=== PATIENT | male | born 1955 | race Caucasian/White ===

== ENCOUNTER 2018-01-03 04:38 | Emergency (ER) | payer MEDICAID, SELFPAY ==
[2018-01-03] VITALS (37 sets, daily range): BP systolic 98–151; BP diastolic 70–88; PULSE 69–98; RESP 14–34; TEMP 37.1; O2SAT 93–97
--- NOTE | 2018-01-03 05:05 | ED.GENADUL ---
Disposition Clinical Impression: Abdominal pain, Rectal bleeding, Colitis Instructions: Rectal Bleeding (ED), Abdominal Pain (ED), Colitis (ED) Additional Instructions: Please follow-up with your primary care physician. Return to the emergency department immediately for any worsening or new concerning symptoms. Referrals: Sasha Leach MD [ [facility] STAFF PHYSICIAN] - Deborah Chow MD [Primary Care Provider] - Medical Decision Making - Lab Data Laboratory Tests 01/03/18 01/03/18 01/03/18 04:55 04:55 05:00 WBC 5.41 RBC 4.73 Hgb 15.8 Hct 46.3 MCV 97.9 H MCH 33.4 H MCHC 34.1 RDW 11.4 L Plt Count 201 MPV 9.6 Immature Gran % 0.6 Neutrophils % 64.4 Lymphocytes % 19.8 Monocytes % 13.7 Eosinophils % 0.9 Basophils % 0.6 Absolute Neutrophils 3.49 Absolute Lymphocytes 1.07 L Absolute Monocytes 0.74 H Absolute Eosinophils 0.05 Absolute Basophils 0.03 Sodium 140 Potassium 3.9 Chloride 102 Carbon Dioxide 28.5 Anion Gap 9.5 BUN 9 Creatinine 0.97 Estimated GFR/1.73 m2 >= 60.00 Glucose 94 Calcium 8.3 L Total Bilirubin 0.9 AST 100 H ALT 77 Alkaline Phosphatase 117 H Total Protein 7.6 Albumin 3.7 Lipase 314 Patient ABO/Rh A Positive Antibody Screen Negative - Medical Decision Making 510 --62-year-old male history of lung cancer, tubular adenoma colon, presents with dark bloody stool this morning and left-sided abdominal pain since last night. 2 IVs established. Will check type and screen. No active bleeding at this time. Concern for diverticulitis. Plan to obtain CT abdomen pelvis to assess for acute surgical pathology. 718 --CT of the abdomen pelvis interpreted by radiology: Thickened, possibly trabeculated bladder wall, not definitely changed from a 10/16/2016 study, considering difference in bladder distention. Mild thickening of the bladder wall, without stranding in the surrounding fat. This has slightly increased from the prior study. Mild colitis is not excluded. Labs reviewed and nondiagnostic. No anemia. Patient reassessed and is remained stable without recurrent bleeding. 800 -- Care signed out to Dr. Resendiz with plan to follow-up on repeat 4hr Hb and reassess patient for disposition. History of Present Illness - General Chief complaint: Abd Prob Stated complaint: CALEX Time Seen by Provider: 01/03/18 04:48 Source: patient, RN notes reviewed Mode of arrival: ambulatory Limitations: no limitations - History of Present Illness Initial comments: 62-year-old male with history of lung cancer, COPD, tubular adenoma of the colon, anxiety, presents with chief complaint of bloody stool. Patient notes he developed left-sided abdominal pain that started last night around midnight. Pain persisted through the night. He had a hard bowel movement this morning with associated dark bloody stool. Bloody stool was severe with no modifiers. Patient describes the stools as coffee ground appearance. Patient continues to have abdominal pain and localizes it to left lower quadrant. - Related Data Budesonide/Formoterol Fumarate [Symbicort 160/4.5 Mcg Inhaler] 10.2 gm IH BID #3 inhaler 06/20/17 Tiotropium [Spiriva Handihaler] 1 cap IH DAILY 09/29/17 Albuterol [Proair Hfa] 2 puff IH Q4H PRN PRN #1 inh 10/02/17 Albuterol Sulfate 2.5 mg IH Q4H PRN PRN 30 Days ml 10/15/17 Inhaler, Assist Devices [Pocket Chamber] 1 each MC DIRECTED kit 10/15/17 Ranitidine HCl 150 mg PO BID #180 tab-cap 10/31/17 Fluoxetine HCl 30 mg PO DAILY #90 cap 11/07/17 Allergies Allergy/AdvReac Type Severity Reaction Status Date / Time No Known Allergies Allergy Unverified 01/03/18 04:50 Review of Systems Constitutional: denies: fever Respiratory: denies: cough Gastrointestinal: as per HPI, abdominal pain Comment: All other systems reviewed and negative Past Medical History - Past Medical History Medical history: cancer (lung CA), COPD, GERD Hx of ETOH abuse, tubular adenoma of the colon Surgical history: other (Left arm surgery s/p chainsaw accident) - Social History Smoking status: former smoker Alcohol use: heavy Drug use: none General Exam - General Limitations: no limitations General appearance: alert, in no apparent distress - Eye Eye exam: Absent: scleral icterus, conjunctival injection - ENT ENT exam: Present: mucous membranes moist - Respiratory Respiratory exam: Present: normal lung sounds bilaterally - Cardiovascular Cardiovascular Exam: Present: regular rate, normal rhythm, normal heart sounds - GI/Abdominal GI/Abdominal exam: Present: soft, tenderness (Left-sided abdomen worse in the left lower quadrant), normal bowel sounds. Absent: distended, guarding, rebound, rigid, pulsatile mass - Rectal Rectal exam: Present: normal rectal tone, heme (-) stool (Minimal stool obtained). Absent: black stool, bloody stool, hemorrhoids - Neurological Exam Neurological exam: Present: alert. Absent: altered - Psychiatric Psychiatric exam: Present: normal affect - Skin Skin exam: Present: warm, dry, intact. Absent: pallor Course Vital Signs - 24 hr 01/03/18 01/03/18 01/03/18 04:43 04:45 04:50 Temperature 37.1 C Pulse 88 Respiratory 16 Rate Blood Pressure 151/88 Pulse Oximetry 95 96 93 L
[2018-01-03] MEDS: Lactated Ringers 1,000 ML 150 ML IV (05:08)
[2018-01-03] MEDS: Normal Saline Flush 10 ML SYR IVP (05:08)
--- NOTE | 2018-01-03 05:08 | ED.GENADUL_ITS ---
Disposition Clinical Impression: Abdominal pain, Rectal bleeding, Colitis Instructions: Rectal Bleeding (ED), Abdominal Pain (ED), Colitis (ED) Additional Instructions: Please follow-up with your primary care physician. Return to the emergency department immediately for any worsening or new concerning symptoms. Referrals: Sasha Leach MD [ [facility] STAFF PHYSICIAN] - Deborah Chow MD [Primary Care Provider] - Medical Decision Making - Lab Data Laboratory Tests 01/03/18 01/03/18 01/03/18 04:55 04:55 05:00 WBC 5.41 RBC 4.73 Hgb 15.8 Hct 46.3 MCV 97.9 H MCH 33.4 H MCHC 34.1 RDW 11.4 L Plt Count 201 MPV 9.6 Immature Gran % 0.6 Neutrophils % 64.4 Lymphocytes % 19.8 Monocytes % 13.7 Eosinophils % 0.9 Basophils % 0.6 Absolute Neutrophils 3.49 Absolute Lymphocytes 1.07 L Absolute Monocytes 0.74 H Absolute Eosinophils 0.05 Absolute Basophils 0.03 Sodium 140 Potassium 3.9 Chloride 102 Carbon Dioxide 28.5 Anion Gap 9.5 BUN 9 Creatinine 0.97 Estimated GFR/1.73 m2 >= 60.00 Glucose 94 Calcium 8.3 L Total Bilirubin 0.9 AST 100 H ALT 77 Alkaline Phosphatase 117 H Total Protein 7.6 Albumin 3.7 Lipase 314 Patient ABO/Rh A Positive Antibody Screen Negative - Medical Decision Making 510 --62-year-old male history of lung cancer, tubular adenoma colon, presents with dark bloody stool this morning and left-sided abdominal pain since last night. 2 IVs established. Will check type and screen. No active bleeding at this time. Concern for diverticulitis. Plan to obtain CT abdomen pelvis to assess for acute surgical pathology. 718 --CT of the abdomen pelvis interpreted by radiology: Thickened, possibly trabeculated bladder wall, not definitely changed from a 10/16/2016 study, considering difference in bladder distention. Mild thickening of the bladder wall, without stranding in the surrounding fat. This has slightly increased from the prior study. Mild colitis is not excluded. Labs reviewed and nondiagnostic. No anemia. Patient reassessed and is remained stable without recurrent bleeding. 800 -- Care signed out to Dr. Resendiz with plan to follow-up on repeat 4hr Hb and reassess patient for disposition. History of Present Illness - General Chief complaint: Abd Prob Stated complaint: CALEX Time Seen by Provider: 01/03/18 04:48 Source: patient, RN notes reviewed Mode of arrival: ambulatory Limitations: no limitations - History of Present Illness Initial comments: 62-year-old male with history of lung cancer, COPD, tubular adenoma of the colon , anxiety, presents with chief complaint of bloody stool. Patient notes he developed left-sided abdominal pain that started last night around midnight. Pain persisted through the night. He had a hard bowel movement this morning with associated dark bloody stool. Bloody stool was severe with no modifiers. Patient describes the stools as coffee ground appearance. Patient continues to have abdominal pain and localizes it to left lower quadrant. - Related Data Budesonide/Formoterol Fumarate [Symbicort 160/4.5 Mcg Inhaler] 10.2 gm IH BID # 3 inhaler 06/20/17 Tiotropium [Spiriva Handihaler] 1 cap IH DAILY 09/29/17 Albuterol [Proair Hfa] 2 puff IH Q4H PRN PRN #1 inh 10/02/17 Albuterol Sulfate 2.5 mg IH Q4H PRN PRN 30 Days ml 10/15/17 Inhaler, Assist Devices [Pocket Chamber] 1 each MC DIRECTED kit 10/15/17 Ranitidine HCl 150 mg PO BID #180 tab-cap 10/31/17 Fluoxetine HCl 30 mg PO DAILY #90 cap 11/07/17 Allergies Allergy/AdvReac Type Severity Reaction Status Date / Time No Known Allergies Allergy Unverified 01/03/18 04:50 Review of Systems Constitutional: denies: fever Respiratory: denies: cough Gastrointestinal: as per HPI, abdominal pain Comment: All other systems reviewed and negative Past Medical History - Past Medical History Medical history: cancer (lung CA), COPD, GERD Hx of ETOH abuse, tubular adenoma of the colon Surgical history: other (Left arm surgery s/p chainsaw accident) - Social History Smoking status: former smoker Alcohol use: heavy Drug use: none General Exam - General Limitations: no limitations General appearance: alert, in no apparent distress - Eye Eye exam: Absent: scleral icterus, conjunctival injection - ENT ENT exam: Present: mucous membranes moist - Respiratory Respiratory exam: Present: normal lung sounds bilaterally - Cardiovascular Cardiovascular Exam: Present: regular rate, normal rhythm, normal heart sounds - GI/Abdominal GI/Abdominal exam: Present: soft, tenderness (Left-sided abdomen worse in the left lower quadrant), normal bowel sounds. Absent: distended, guarding, rebound , rigid, pulsatile mass - Rectal Rectal exam: Present: normal rectal tone, heme (-) stool (Minimal stool obtained ). Absent: black stool, bloody stool, hemorrhoids - Neurological Exam Neurological exam: Present: alert. Absent: altered - Psychiatric Psychiatric exam: Present: normal affect - Skin Skin exam: Present: warm, dry, intact. Absent: pallor Course Vital Signs - 24 hr 01/03/18 01/03/18 01/03/18 04:43 04:45 04:50 Temperature 37.1 C Pulse 88 Respiratory 16 Rate Blood Pressure 151/88 Pulse Oximetry 95 96 93 L
[2018-01-03 05:13] LABS: Abs Immature Grans 0.03 k/cumm (0.0-0.09); Absolute Basophil Count 0.03 k/cumm (0.0-0.2); Absolute Eosinophil Count 0.05 k/cumm (0.0-0.7); Absolute Lymphocyte Count 1.07 k/cumm (1.2-3.4); Absolute Monocyte Count 0.74 k/cumm (0.11-0.7); Absolute Neutrophil Count 3.49 k/cumm (1.2-6.7); Basophils % 0.6; Eosinophils % 0.9; HCT 46.3 % (40.0-50.0); HGB 15.8 g/dL (13.5-17.5); Immature Grans % 0.6; Lymphocytes % 19.8; Mean Corp. HGB Concentration 34.1 g/dL (32.0-36.0); Mean Corpuscular Hemoglobin 33.4 pg (27.0-33.0); Mean Corpuscular Volume 97.9 fL (80-95); Mean Platelet Volume 9.6 fL (8.0-11.0); Monocytes % 13.7; Neutrophils % 64.4; Platelet Count 201 x1000/uL (130-400); RBC 4.73 m/cumm (4.50-6.00); RBC Distribution Width 11.4 % (11.8-14.1); White Blood Cell Count 5.41 k/cumm (4.4-10.8)
[2018-01-03 05:28] LABS: ALT 77 U/L (12-78); AST 100 U/L (15-37); Albumin 3.7 g/dL (3.4-5.0); Alkaline Phosphatase 117 U/L (46-116); Anion Gap 9.5 mmol/L (3-11); BUN 9 mg/dL (7-18); Bilirubin, Total 0.9 mg/dL (0.2-1.0); CO2 28.5 mmol/L (21.0-32.0); CREATININE 0.97 mg/dL (0.70-1.30); Calcium 8.3 mg/dL (8.5-10.1); Chloride 102 mmol/L (98-107); Glucose 94 mg/dL (70-100); Lipase 314 U/L (73-393); Potassium 3.9 mmol/L (3.5-5.1); Sodium 140 mmol/L (136-145); Total Protein 7.6 g/dL (6.4-8.2)
--- NOTE | 2018-01-03 05:55 | DI.RPTCT_ITS ---
SYMPTOM/DIAGNOSIS: LLQ ABD PAIN, BRBPR CT ABDOMEN AND PELVIS: CT abdomen and pelvis was performed following the uneventful administration of intravenous contrast material. Comparison 10/16/16 No acute findings are seen in the lung bases. There is fatty infiltration of the liver with focal fatty sparing adjacent to the falciform ligament. The gallbladder is negative. No biliary ductal dilatation is seen. The pancreas, spleen and adrenal glands are unremarkable. The kidneys show no evidence of a solid mass or obstruction. There is mild diffuse thickening of the wall of the urinary bladder. This may be due to under distension. Chronic bladder trabeculation cannot be excluded. This is unchanged compared to the prior examination. No inflammatory stranding is seen around the urinary bladder. The abdominal aorta is of normal caliber. No significant abdominal or pelvic adenopathy, ascites or pneumoperitoneum is seen. There is mild thickening seen in the rectal wall. This may represent proctitis. The remainder of the bowel is grossly unremarkable. There is a normal appendix present. Degenerative changes are seen in the spine. IMPRESSION: Mild rectal wall thickening. Proctitis cannot be excluded.
[2018-01-03] MEDS: Omnipaque 350 MG/ML 100 ML BTL IJ (05:56)
--- NOTE | 2018-01-03 06:34 | DI.VRAD_ITS ---
EXAM: CT Abdomen and Pelvis With Intravenous Contrast CLINICAL HISTORY: 62 years old, male; Pain and signs and symptoms; Other: Blod in stool; Abdominal pain; Localized; Left lower quadrant (llq); Patient HX: NIA tam ca, blood in stool this am and llq pain TECHNIQUE: Axial computed tomography images of the abdomen and pelvis with intravenous contrast. All CT scans at this facility use at least one of these dose optimization techniques: automated exposure control; mA and/or kV adjustment per patient size (includes targeted exams where dose is matched to clinical indication); or iterative reconstruction. Coronal and sagittal reformatted images were created and reviewed. CONTRAST: 82 mL of Omnipaque 350 administered intravenously. COMPARISON: CT - ABD PELVIS WITH CONTRAST 2016-10-16 19:15 FINDINGS: Lung bases: Unremarkable. No mass. No consolidation. ABDOMEN: Liver: Severe hepatic steatosis. 1 cm hypodense area adjacent to the falciform ligament, likely focal fatty infiltration. Gallbladder and bile ducts: Unremarkable. No calcified stones. No ductal dilation. Pancreas: Unremarkable. No mass. No ductal dilation. Spleen: Calcified granuloma, spleen. Adrenals: Unremarkable. No mass. Kidneys and ureters: Few benign subcentimeter cysts, right kidney. No hydronephrosis. Stomach and bowel: Rectal wall appears mildly thickened, without stranding in the surrounding perirectal fat. Wall of the ascending colon appears mildly thickened, though this is likely due to collapsed colon. No obstruction. PELVIS: Appendix: Normal appendix. Bladder: Bladder wall is thickened, and possibly trabeculated. Reproductive: Moderate prostatic enlargement. ABDOMEN and PELVIS: Intraperitoneal space: Unremarkable. No free air. No significant fluid collection. Bones/joints: Moderate degenerative changes, lower lumbar spine. Mild lumbar scoliosis. Soft tissues: Small fat containing left inguinal hernia. Vasculature: Multiple phleboliths noted in the pelvis. No abdominal aortic aneurysm. Lymph nodes: Unremarkable. No enlarged lymph nodes. IMPRESSION: Thickened, possibly trabeculated bladder wall, not definitely changed from a 10/16/16 study, considering difference in bladder distention. Mild thickening of the bladder wall, without stranding in the surrounding fat. This has slightly increased from the prior study. Mild colitis is not excluded. No mass or adenopathy. Dictated and Authenticated by: Glenn Brown MD. Ordering:CRISTOPHER ESPINO MD
--- NOTE | 2018-01-03 08:11 | ED.FU_ITS ---
Disposition Clinical Impression: Abdominal pain, Rectal bleeding, Colitis Disposition: HOME Condition: Stable Instructions: Rectal Bleeding (ED), Abdominal Pain (ED), Colitis (ED) Additional Instructions: Please follow-up with your primary care physician. Return to the emergency department immediately for any worsening or new concerning symptoms. Prescriptions: Docusate Sodium [Colace] 100 mg PO DAILY #10 cap Referrals: Sasha Leach MD [ [facility] STAFF PHYSICIAN] - Deborah Chow MD [Primary Care Provider] - Medical Decision Making - Lab Data Laboratory Tests 01/03/18 01/03/18 01/03/18 04:55 04:55 05:00 WBC 5.41 RBC 4.73 Hgb 15.8 Hct 46.3 MCV 97.9 H MCH 33.4 H MCHC 34.1 RDW 11.4 L Plt Count 201 MPV 9.6 Immature Gran % 0.6 Neutrophils % 64.4 Lymphocytes % 19.8 Monocytes % 13.7 Eosinophils % 0.9 Basophils % 0.6 Absolute Neutrophils 3.49 Absolute Lymphocytes 1.07 L Absolute Monocytes 0.74 H Absolute Eosinophils 0.05 Absolute Basophils 0.03 Sodium 140 Potassium 3.9 Chloride 102 Carbon Dioxide 28.5 Anion Gap 9.5 BUN 9 Creatinine 0.97 Estimated GFR/1.73 m2 >= 60.00 Glucose 94 Calcium 8.3 L Total Bilirubin 0.9 AST 100 H ALT 77 Alkaline Phosphatase 117 H Total Protein 7.6 Albumin 3.7 Lipase 314 Patient ABO/Rh A Positive Antibody Screen Negative - Medical Decision Making Please see Dr. Clay Lizarraga's note for initial presentation, exam and plan. 62-year-old male who presented with left upper quadrant pain, hard stool with bright red blood mixed with dark stool this morning. Denies taking iron. He also admits to occasional bright red blood when wiping with bowel movements for the past few weeks. Patient had lab work and CT abdomen and pelvis which noted stable hemoglobin and colitis on CT but no other acute findings. Hemoccult 2 negative for blood. Patient has been hemodynamically stable since arrival to the ED. Plan upon endorsement was to recheck a hemoglobin to make sure it is been stable. 0920: Repeat hemoglobin stable. Vital stable. Patient denies any abdominal pain. Patient is drinking coffee and states he feels good to go home. Patient has denied any chest pain, shortness of breath, dizziness. Patient had admitted to hard stools recently. He denies diarrhea, fever, recent travel or recent antibiotics. Will send home with a prescription for Colace. It was discussed with patient that as he has had intermittent bleeding with wiping for the past few weeks as well as blood mixed with stool, he could possibly have hemorrhoids. Patient was instructed to follow-up with his primary care doctor for reevaluation and return here if worse. Care Signed Out By:: Dr. Lizarraga - Vital Signs Recent Vitals - 8H: Vital Signs - 8 hr 01/03/18 01/03/18 01/03/18 04:43 04:45 04:50 Temperature 98.8 F Pulse 88 Respiratory 16 Rate Blood Pressure 151/88 Pulse Oximetry 95 96 93 L 01/03/18 01/03/18 01/03/18 05:00 05:10 05:15 Temperature Pulse 81 Respiratory Rate Blood Pressure 139/76 Pulse Oximetry 95 95 94 L 01/03/18 01/03/18 01/03/18 05:20 05:30 05:31 Temperature Pulse 77 Respiratory Rate Blood Pressure 131/75 Pulse Oximetry 95 96 96 01/03/18 01/03/18 01/03/18 06:02 06:04 06:10 Temperature Pulse 81 Respiratory Rate Blood Pressure 134/78 Pulse Oximetry 96 95 97 01/03/18 01/03/18 01/03/18 06:20 06:30 06:31 Temperature Pulse 74 Respiratory Rate Blood Pressure 126/77 Pulse Oximetry 95 95 01/03/18 01/03/18 06:40 06:50 Temperature Pulse Respiratory Rate Blood Pressure Pulse Oximetry 96 96 - Continuation of Care Continuation of Care Plan: Case endorsed to f/u on second hemoglobin and if pt continues to be hemodynamically stable and normal repeat hemoglobin, ok to dc home.
[2018-01-03 09:06] LABS: HCT 41.4 % (40.0-50.0); Mean Corp. HGB Concentration 33.8 g/dL (32.0-36.0); Mean Corpuscular Hemoglobin 33.5 pg (27.0-33.0); Mean Platelet Volume 9.4 fL (8.0-11.0); Platelet Count 206 x1000/uL (130-400); RBC 4.18 m/cumm (4.50-6.00); RBC Distribution Width 11.2 % (11.8-14.1)
== END 2018-01-03 09:56 | disposition home or self-care (01) ==
PROVIDERS: Emergency Provider Student in an Organized Health Care Education/Training Program; PCP Internal Medicine
DX: K62.5 Hemorrhage of anus and rectum (principal); K52.9 Noninfective gastroenteritis and colitis, unspecified; R10.32 Left lower quadrant pain; J44.9 Chronic obstructive pulmonary disease, unspecified
CPT/HCPCS: 36415; 80053; 83690; 85027; 86850; 86900; 86901; 96360; 96361; 99285; 74177; 85025; 99284; J3490

== ENCOUNTER 2018-02-28 13:21 | Outpatient (CLI) | payer MEDICAID, SELFPAY ==
--- NOTE | 2018-02-28 11:56 | DI.RAD_ITS ---
SYMPTOM/DIAGNOSIS: LUNG CANCER, FEVER, R50.9 PA AND LATERAL CHEST: When compared with prior films again noted is the minimal strandiness in the region of the right upper lobe, unchanged. The lungs are otherwise clear. There is no pleural effusion. The cardiovascular structures appear intact. SUMMARY: No evidence of acute cardiopulmonary disease. No interval change when compared with prior images.
== END 2018-02-28 13:41 ==
PROVIDERS: PCP Internal Medicine; Visit Provider Internal Medicine
DX: C34.91 Malignant neoplasm of unspecified part of right bronchus or lung (principal); R50.9 Fever, unspecified
CPT/HCPCS: 71046

== ENCOUNTER 2018-03-19 09:39 | Emergency (ER) | payer MEDICAID, SELFPAY ==
[2018-03-19 09:54] VITALS: BP 127/87; PULSE 81; RESP 16; TEMP 37; O2SAT 95
[2018-03-19 10:25] VITALS: RESP 16
--- NOTE | 2018-03-19 10:29 | DI.RAD_ITS ---
SYMPTOM/DIAGNOSIS: COUGH, CONGESTION PA AND LATERAL CHEST: The heart is not enlarged. The lungs are clear. No pleural effusion is seen. The patient reportedly has a history of lung carcinoma. CONCLUSION: No evidence of acute disease. No change from 02/28/18.
--- NOTE | 2018-03-19 10:30 | W.ED.GENAD ---
Discharge Plan Disposition Patient Disposition: HOME Condition: Improving Discharge Details Chief Complaint: GenMedical Clinical Impression: Acute respiratory infection Primary Care Provider: Deborah Chow ED Provider: Ean Lyons Home Meds and New Rx's Prescriptions: New ondansetron HCl [Zofran] 4 mg tablet 4 mg PO QID PRN (Reason: nausea and vomiting) Qty: 10 RF: 0 guaifenesin [Mucinex] 600 mg tablet extended release 12hr 600 mg PO Q12H PRNQty: 10 RF: 0 benzonatate [Tessalon Perles] 100 mg capsule 100 mg PO TID PRN (Reason: cough) Qty: 14 RF: 0 Continue doxycycline hyclate 100 mg capsule 100 mg PO BID Qty: 14 RF: 0 diazepam 2 mg tablet 2 mg PO BID PRN (Reason: alcohol withdrawal) Qty: 90 RF: 3 budesonide-formoterol [Symbicort] 10.2 GM HFA aerosol inhaler 10.2 gm Inhalation BID Qty: 3 RF: 3 ranitidine HCl 150 MG tablet 150 mg PO BID Qty: 180 RF: 3 fluoxetine 10 MG capsule 30 mg PO DAILY Qty: 90 RF: 3 docusate sodium [Colace] 100 MG capsule 100 mg PO DAILY 60 Days Qty: 60 RF: 2 cetirizine 10 mg capsule 10 mg PO DAILY Qty: 10 RF: 0 thiamine HCl (vitamin B1) 100 mg tablet 100 mg PO DAILY Qty: 90 RF: 3 tiotropium bromide [Spiriva with HandiHaler] 30 CAP/INH capsule, w/inhalation device 1 cap Inhalation DAILY RF: 0 albuterol sulfate [ProAir HFA] 200 PUFF/INH HFA aerosol inhaler 2 puff Inhalation Q4H PRN PRN (Reason: Shortness Of Breath) Qty: 1 RF: 0 inhalational spacing device [OptiChamber Advantage] 1 EACH spacer 1 ea Miscellaneous DIRECTED RF: 0 albuterol sulfate 2.5 MG/3 ML solution for nebulization 2.5 mg Inhalation Q4H PRN PRN (Reason: Shortness Of Breath) 30 Days RF: 0 Discharge Instructions Instructions: Viral Syndrome (ED) Additional Instructions: We will ask our care management team to make you a follow-up appointment with Dr. Chow. Return if you develop shortness of breath, worsening cough or fever, or any other acute concerns. May use the enclosed prescriptions as needed for cough and nausea. Home to rest today. Small, frequent sips of fluids to maintain hydration. Tylenol if needed for aches, pains, fever Medical Decision Making 62-year-old male presents with cough, congestion, generalized illness over days time. He is afebrile and oxygenating normally with vital signs that are within normal limits. Referred for chest x-ray to exclude underlying pneumonia. There is no evidence of active underlying illness. I do feel he has bronchitis, likely viral. Will treat with antitussive as well as Mucinex. He did have some complaint of nausea and therefore offered Zofran as well. He stable for follow-up. We will ask our care management to arrange outpatient follow-up with Dr. Geraldo CONTRERAS General Mode of arrival: ambulatory. Date/Time Provider Initiated Documentation: 03/19/18 10:21. Limitations to Documentation: no limitations. Information obtained by: patient. History of Present Illness 62 year old M presents to the emergency department with the chief complaint of Cough, described as moderate, Quality is described as dull, and is localized to the chest. Patient started experiencing this day(s) and it has been constant. No relieving factors improve symptom(s), No exacerbating factors reported . HPI Narrative: 62-year-old male with history of COPD presents with cough, congestion, subjective fever chills over 2-3 days time. He has not had chest pain or significant shortness of breath. No known sick contacts. He did tolerate liquids and solids by mouth. Related Data Home Medications Medication Instructions Recorded Confirmed budesonide-formoterol [Symbicort] 10.2 gm INHALATION BID #3 inhaler 06/20/17 03/19/18 tiotropium bromide [Spiriva with 1 cap INHALATION DAILY 09/29/17 03/19/18 HandiHaler] albuterol sulfate [ProAir HFA] 2 puff INHALATION Q4H PRN PRN #1 10/02/17 03/19/18 inh albuterol sulfate 2.5 mg INHALATION Q4H PRN PRN 30 10/15/17 03/19/18 Days ml inhalational spacing device kit 10/15/17 03/07/18 [OptiChamber Advantage] ranitidine HCl 150 mg PO BID #180 tab-cap 10/31/17 03/19/18 fluoxetine 30 mg PO DAILY #90 cap 11/07/17 03/19/18 docusate sodium [Colace] 100 mg PO DAILY 60 Days #60 cap 01/09/18 03/19/18 diazepam 2 mg tablet 2 mg PO BID PRN #90 tab 02/14/18 03/19/18 doxycycline hyclate 100 mg capsule 100 mg PO BID #14 cap 02/28/18 03/19/18 cetirizine 10 mg capsule 10 mg PO DAILY #10 cap 03/01/18 03/19/18 thiamine HCl (vitamin B1) 100 mg 100 mg PO DAILY #90 tab 03/06/18 03/19/18 tablet benzonatate [Tessalon Perles] 100 mg PO TID PRN #14 cap 03/19/18 guaifenesin [Mucinex] 600 mg PO Q12H PRN #10 tab 03/19/18 ondansetron HCl [Zofran] 4 mg PO QID PRN #10 tab 03/19/18 Previous Rx's Medication Instructions Recorded budesonide-formoterol [Symbicort] 10.2 gm INHALATION BID #3 inhaler 06/20/17 albuterol sulfate [ProAir HFA] 2 puff INHALATION Q4H PRN PRN #1 10/02/17 inh albuterol sulfate 2.5 mg INHALATION Q4H PRN PRN 30 10/15/17 Days ml inhalational spacing device kit 10/15/17 [OptiChamber Advantage] ranitidine HCl 150 mg PO BID #180 tab-cap 10/31/17 fluoxetine 30 mg PO DAILY #90 cap 11/07/17 docusate sodium [Colace] 100 mg PO DAILY 60 Days #60 cap 01/09/18 diazepam 2 mg tablet 2 mg PO BID PRN #90 tab 02/14/18 doxycycline hyclate 100 mg capsule 100 mg PO BID #14 cap 02/28/18 cetirizine 10 mg capsule 10 mg PO DAILY #10 cap 03/01/18 thiamine HCl (vitamin B1) 100 mg 100 mg PO DAILY #90 tab 03/06/18 tablet benzonatate [Tessalon Perles] 100 mg PO TID PRN #14 cap 03/19/18 guaifenesin [Mucinex] 600 mg PO Q12H PRN #10 tab 03/19/18 ondansetron HCl [Zofran] 4 mg PO QID PRN #10 tab 03/19/18 Allergies Allergy/AdvReac Type Severity Reaction Status Date / Time No Known Allergies Allergy Verified 03/19/18 09:56 General Stated Complaint: GenMedical FLASH: 3 Review of Systems Review of Systems 8 systems reviewed and otherwise neg Exam Narrative Exam Narrative: GEN: awake, alert, oriented 3. Pleasant, well groomed, interactive. HEAD: Normocephalic, atraumatic ENT: Mucous membranes moist, oropharynx unremarkable, External ear exam unremarkable EYES: PERRL, EOMI NECK: Full ROM, no URSZULA, no menigismus CHEST/RESP: Nontender, diminished bilateral, no wheeze/rhonchi/rales appreciated CARDIOVASCULAR: RRR, no murmur, rub jeannie. 2+ Rad pulse bilateral ABDOMEN: Soft, nontender, no mass. +Bowel sounds EXT: Full ROM, no edema, no rash Neuro: Grossly normal neurologic exam, conversant, interactive. Psych: Speech fluent, thoughts congruent, affect normal Course Vital Signs Temperature 37 C 03/19/18 09:54 Pulse 81 03/19/18 09:54 Respiratory Rate 16 03/19/18 09:54 Blood Pressure 127/87 03/19/18 09:54 Pulse Oximetry 95 03/19/18 09:54 Temperature 37 C 03/19/18 09:54 Temperature Source Skin 03/19/18 09:54 Pulse 81 03/19/18 09:54 Respiratory Rate 16 03/19/18 09:54 Respiratory Effort Non-Labored 03/19/18 09:54 Blood Pressure 127/87 03/19/18 09:54 Blood Pressure Position Sitting 03/19/18 09:54 Pulse Oximetry 95 03/19/18 09:54 Oxygen Delivery Method Room Air 03/19/18 09:54 Oxygen Flow Rate 0 03/19/18 09:54 Pain Level 0 03/19/18 09:54
== END 2018-03-19 11:05 | disposition home or self-care (01) ==
PROVIDERS: Emergency Provider Emergency Medicine; PCP Internal Medicine
DX: J22 Unspecified acute lower respiratory infection (principal); J44.9 Chronic obstructive pulmonary disease, unspecified; Z87.891 Personal history of nicotine dependence
CPT/HCPCS: 99283; 71046

== ENCOUNTER 2018-03-20 01:05 | Emergency (ER) | payer MEDICAID, SELFPAY ==
[2018-03-20] VITALS (9 sets, daily range): BP systolic 134–150; BP diastolic 87–94; PULSE 79–88; RESP 22; TEMP 36.4–36.9; O2SAT 93–96
--- NOTE | 2018-03-20 01:24 | W.ED.GENAD ---
Discharge Plan Disposition Patient Disposition: HOME Condition: Good Discharge Details Chief Complaint: Abd Prob Clinical Impression: Abdominal pain, GERD (gastroesophageal reflux disease) Reason For Visit: SUNDAR Primary Care Provider: Deborah Chow ED Provider: Daren Chiang [place] Meds and New Rx's Prescriptions: Continue diazepam 2 mg tablet 2 mg PO BID PRN (Reason: alcohol withdrawal) Qty: 90 RF: 3 budesonide-formoterol [Symbicort] 10.2 GM HFA aerosol inhaler 10.2 gm Inhalation BID Qty: 3 RF: 3 ranitidine HCl 150 MG tablet 150 mg PO BID Qty: 180 RF: 3 fluoxetine 10 MG capsule 30 mg PO DAILY Qty: 90 RF: 3 docusate sodium [Colace] 100 MG capsule 100 mg PO DAILY 60 Days Qty: 60 RF: 2 cetirizine 10 mg capsule 10 mg PO DAILY Qty: 10 RF: 0 thiamine HCl (vitamin B1) 100 mg tablet 100 mg PO DAILY Qty: 90 RF: 3 tiotropium bromide [Spiriva with HandiHaler] 30 CAP/INH capsule, w/inhalation device 1 cap Inhalation DAILY RF: 0 albuterol sulfate [ProAir HFA] 200 PUFF/INH HFA aerosol inhaler 2 puff Inhalation Q4H PRN PRN (Reason: Shortness Of Breath) Qty: 1 RF: 0 inhalational spacing device [OptiChamber Advantage] 1 EACH spacer 1 ea Miscellaneous DIRECTED RF: 0 albuterol sulfate 2.5 MG/3 ML solution for nebulization 2.5 mg Inhalation Q4H PRN PRN (Reason: Shortness Of Breath) 30 Days RF: 0 ondansetron HCl [Zofran] 4 mg tablet 4 mg PO QID PRN (Reason: nausea and vomiting) Qty: 10 RF: 0 guaifenesin [Mucinex] 600 mg tablet extended release 12hr 600 mg PO Q12H PRNQty: 10 RF: 0 benzonatate [Tessalon Perles] 100 mg capsule 100 mg PO TID PRN (Reason: cough) Qty: 14 RF: 0 Discharge Instructions Instructions: Gastroesophageal Reflux Disease (ED), Abdominal Pain (ED) Additional Instructions: Avoid NSAIDs and alcohol. May use Tylenol if needed. Continue current medications. Follow up with PCP. Return to ED for worse/persistent pain, vomiting, chest pain, fever, other concerns. Referrals: Deborah Chow MD [Primary Care Provider] - Medical Decision Making Patient here tonight with complaints of epigastric burning pain after being seen previously during day shift for cough, malaise and nausea. Had CXR then which was negative. Has no chest pain but because of age and epigastric pain, nursing did EKG which looks unchanged compared to previous. His abdomen is completely benign to palpation. He has history of alcohol abuse but denies recent use. He has been using NSAIDs on and off and has previous problems with GERD. He also has prior history of frequent ED visits for various complaints. Will try GI cocktail before pursuing work up, as suspect this is related to reflux, he looks well with normal vitals and benign exam. Pain is resolved with GI cocktail. He feels fine now. Will not pursue lab work up. Home with current medications but avoid NSAIDs and alcohol. Follow up with PCP. Return to ED for worse/persistent abdominal pain, chest pain, fever, persistent vomiting. ECG Data Attestation: I personally reviewed and interpreted this ECG (s) as follows: Prior ECG tracings: available for review Interpretation: NSR at 82 with PVC. Normal interval and axis. No acute ST changes. No change compared to old. HPI General Mode of arrival: EMS. Date/Time Provider Initiated Documentation: 03/20/18 01:21. Limitations to Documentation: no limitations. Information obtained by: patient and old records reviewed. HPI Narrative: Patient presents tonight because of epigastric abdominal pain. He reports it started about two hours ago. He was here morning of 03/19/18 and diagnosed with viral bronchitis. He had some nausea then and reports one episode of vomiting and diarrhea earlier but not currently. The pain is burning in nature and does not radiate. He has no chest pain or pressure. He still has cough. He denies shortness of breath. He reports fever to 101 the day before. Related Data Home Medications Medication Instructions Recorded Confirmed budesonide-formoterol [Symbicort] 10.2 gm INHALATION BID #3 inhaler 06/20/17 03/20/18 tiotropium bromide [Spiriva with 1 cap INHALATION DAILY 09/29/17 03/20/18 HandiHaler] albuterol sulfate [ProAir HFA] 2 puff INHALATION Q4H PRN PRN #1 10/02/17 03/20/18 inh albuterol sulfate 2.5 mg INHALATION Q4H PRN PRN 30 10/15/17 03/20/18 Days ml inhalational spacing device kit 10/15/17 03/07/18 [OptiChamber Advantage] ranitidine HCl 150 mg PO BID #180 tab-cap 10/31/17 03/20/18 fluoxetine 30 mg PO DAILY #90 cap 11/07/17 03/20/18 docusate sodium [Colace] 100 mg PO DAILY 60 Days #60 cap 01/09/18 03/20/18 diazepam 2 mg tablet 2 mg PO BID PRN #90 tab 02/14/18 03/20/18 cetirizine 10 mg capsule 10 mg PO DAILY #10 cap 03/01/18 03/20/18 thiamine HCl (vitamin B1) 100 mg 100 mg PO DAILY #90 tab 03/06/18 03/20/18 tablet benzonatate [Tessalon Perles] 100 mg PO TID PRN #14 cap 03/19/18 03/20/18 guaifenesin [Mucinex] 600 mg PO Q12H PRN #10 tab 03/19/18 03/20/18 ondansetron HCl [Zofran] 4 mg PO QID PRN #10 tab 03/19/18 03/20/18 Previous Rx's Medication Instructions Recorded budesonide-formoterol [Symbicort] 10.2 gm INHALATION BID #3 inhaler 06/20/17 albuterol sulfate [ProAir HFA] 2 puff INHALATION Q4H PRN PRN #1 10/02/17 inh albuterol sulfate 2.5 mg INHALATION Q4H PRN PRN 30 10/15/17 Days ml inhalational spacing device kit 10/15/17 [OptiChamber Advantage] ranitidine HCl 150 mg PO BID #180 tab-cap 10/31/17 fluoxetine 30 mg PO DAILY #90 cap 11/07/17 docusate sodium [Colace] 100 mg PO DAILY 60 Days #60 cap 01/09/18 diazepam 2 mg tablet 2 mg PO BID PRN #90 tab 02/14/18 cetirizine 10 mg capsule 10 mg PO DAILY #10 cap 03/01/18 thiamine HCl (vitamin B1) 100 mg 100 mg PO DAILY #90 tab 03/06/18 tablet benzonatate [Tessalon Perles] 100 mg PO TID PRN #14 cap 03/19/18 guaifenesin [Mucinex] 600 mg PO Q12H PRN #10 tab 03/19/18 ondansetron HCl [Zofran] 4 mg PO QID PRN #10 tab 03/19/18 Allergies Allergy/AdvReac Type Severity Reaction Status Date / Time No Known Allergies Allergy Verified 03/20/18 01:14 General Stated Complaint: Abd Prob FLASH: 3 Review of Systems Constitutional Denies chills, Reports fever(s), Denies headache(s), Reports poor appetite and Denies weakness Eyes Denies eye discharge ENT Denies otalgia, Denies headache(s) and Denies sore throat Cardiovascular Denies chest pain, Denies diaphoresis, Denies syncope, Denies pedal edema, Denies edema and Denies dyspnea Respiratory Reports cough and Denies dyspnea Gastrointestinal Reports abdominal pain, Reports diarrhea, Reports nausea and Reports vomiting Genitourinary Denies hematuria, Denies dysuria and Denies flank pain Musculoskeletal Denies back pain, Denies myalgias, Denies arthralgias and Denies numbness Integumentary/Breasts Denies rash Neurologic Denies syncope, Denies headache(s), Denies focal weakness, Denies numbness and Denies weakness PFSH Family History Father Essential hypertension Hyperlipidemia Medical History COPD (chronic obstructive pulmonary disease) (Chronic) Adjustment disorder with anxiety (Acute) Dyspepsia (Acute) Malignant neoplasm of right lung (Acute) Tubular adenoma of colon (Acute) Alcohol abuse (Chronic) Anxiety (Chronic) Social History adopted: No foster care: No household members: family housing: house lives independently: Yes current occupation: not working Smoking/Tobacco Use Status: Former Tobacco Use alcohol intake: current alcohol intake frequency: 3 or more drinks per day Alcohol type: beer substance use type: does not use seatbelt use: always drive intox or ride w/ intox class a truck driver: No water heater temp set < 120 deg: Yes working smoke detector in home: Yes fire extinguisher in home: Yes carbon monox detector in home: Yes firearms in home: Yes Surgical History colonoscopy (01/19/15) Exam Const General: comfortable and no acute distress Orientation: alert and oriented x3 HENMT Head: normocephalic and atraumatic Mouth: moist mucous membranes Resp Effort & Inspection: normal respiratory effort Auscultation: clear to auscultation bilaterally Cardio Rate: regular rate Rhythm: regular rhythm Heart Sounds: S1 normal and S2 normal GI Palpation: soft, no hepatosplenomegaly, not firm, no guarding and nontender Skin Rashes: no rashes Neuro General: alert, oriented x3, no focal motor deficits and CN's II-XI intact bilaterally Extrem General: normal to inspection and no pedal edema Course Vital Signs Temperature 98.4 F 03/20/18 01:09 Pulse 79 03/20/18 01:09 Respiratory Rate 22 03/20/18 01:09 Blood Pressure 150/94 H 03/20/18 01:09 Pulse Oximetry 96 03/20/18 01:09 Temperature 98.4 F 03/20/18 01:09 Temperature Source Skin 03/20/18 01:09 Pulse 79 03/20/18 01:09 Respiratory Rate 22 03/20/18 01:09 Respiratory Effort Non-Labored 03/20/18 01:11 Blood Pressure 150/94 H 03/20/18 01:09 Pulse Oximetry 96 03/20/18 01:09 Oxygen Delivery Method Room Air 03/20/18 01:09 Oxygen Flow Rate 0 03/20/18 01:09 Pain Level 8 03/20/18 01:09
--- NOTE | 2018-03-20 08:54 | PDOC.ERCMPRO ---
Care Management Progress Note 03/20-Dr. Lyons requested assistance with a PCP (Dr. Chow) f/u in 1-2 weeks for bronchitis. Referral faxed to [facility].
== END 2018-03-20 02:08 | disposition home or self-care (01) ==
PROVIDERS: Emergency Provider Emergency Medicine; PCP Internal Medicine
DX: R10.13 Epigastric pain (principal); K21.9 Gastro-esophageal reflux disease without esophagitis; J44.9 Chronic obstructive pulmonary disease, unspecified; Z87.891 Personal history of nicotine dependence
CPT/HCPCS: 93005; 99283; 93010

== ENCOUNTER 2018-05-14 08:07 | Emergency (ER) | payer MEDICAID, SELFPAY ==
[2018-05-14] MEDS: Balanced Salt Solution 15 ML BTL OP (08:20)
[2018-05-14] MEDS: Fluorescein STRIPS 100/BOX 1 MG OP (08:20)
--- NOTE | 2018-05-14 08:20 | ED.GENADUL_ITS ---
Discharge Plan Disposition Patient Disposition: HOME Condition: Improving Discharge Details Chief Complaint: EyeProblem Clinical Impression: Abrasion of cornea, right Primary Care Provider: Deborah Chow ED Provider: Ean Lyons Home Meds and New Rx's Prescriptions: No Action diazepam 2 mg tablet 2 mg PO BID PRN (Reason: alcohol withdrawal) Qty: 90 RF: 3 budesonide-formoterol [Symbicort] 10.2 GM HFA aerosol inhaler 10.2 gm Inhalation BID Qty: 3 RF: 3 ranitidine HCl 150 MG tablet 150 mg PO BID Qty: 180 RF: 3 fluoxetine 10 MG capsule 30 mg PO DAILY Qty: 90 RF: 3 docusate sodium [Colace] 100 MG capsule 100 mg PO DAILY 60 Days Qty: 60 RF: 2 cetirizine 10 mg capsule 10 mg PO DAILY Qty: 10 RF: 0 thiamine HCl (vitamin B1) 100 mg tablet 100 mg PO DAILY Qty: 90 RF: 3 tiotropium bromide [Spiriva with HandiHaler] 30 CAP/INH capsule, w/inhalation device 1 cap Inhalation DAILY RF: 0 albuterol sulfate [ProAir HFA] 200 PUFF/INH HFA aerosol inhaler 2 puff Inhalation Q4H PRN PRN (Reason: Shortness Of Breath) Qty: 1 RF: 0 inhalational spacing device [OptiChamber Advantage] 1 EACH spacer 1 ea Miscellaneous DIRECTED RF: 0 albuterol sulfate 2.5 MG/3 ML solution for nebulization 2.5 mg Inhalation Q4H PRN PRN (Reason: Shortness Of Breath) 30 Days RF: 0 ondansetron HCl [Zofran] 4 mg tablet 4 mg PO QID PRN (Reason: nausea and vomiting) Qty: 10 RF: 0 guaifenesin [Mucinex] 600 mg tablet extended release 12hr 600 mg PO Q12H PRNQty: 10 RF: 0 benzonatate [Tessalon Perles] 100 mg capsule 100 mg PO TID PRN (Reason: cough) Qty: 14 RF: 0 Discharge Instructions Instructions: Corneal Abrasion (ED) Additional Instructions: Erythromycin ointment 3-4 times daily to right eye. Our care management team will work to obtain annual follow-up at [facility]. Return for increasing pain, change to vision, or any other acute concerns. Medical Decision Making 63-year-old male with right superonasal corneal abrasion without evidence of persistent foreign body. Visual acuity preserved. Will treat with erythromycin ointment and follow-up [facility] eye care. Discussed with him home management as well as return precautions HPI General Mode of arrival: ambulatory . Date/Time Provider Initiated Documentation: 05/14/18 08:11 . Limitations to Documentation: no limitations . Information obtained by: patient . History of Present Illness 63 year old M presents to the emergency department with the chief complaint of Right eye discomfort and discharge times 1.5 days, described as moderate, Quality is described as dull, and is localized to the eyes and right. Patient reports no radiation. Patient started experiencing this hour(s) and it has been constant. No relieving factors improve symptom(s), No exacerbating factors reported . Patient notes other (No change to vision). HPI Narrative: Right eye pain with question foreign body after working with wood yesterday. Crusted shut this morning. Related Data Home Medications Medication Instructions Recorded Confirmed budesonide-formoterol [Symbicort] 10.2 gm INHALATION BID #3 inhaler 06/20/17 tiotropium bromide [Spiriva with 1 cap INHALATION DAILY 09/29/17 04/03/18 HandiHaler] albuterol sulfate [ProAir HFA] 2 puff INHALATION Q4H PRN PRN #1 10/02/17 inh albuterol sulfate 2.5 mg INHALATION Q4H PRN PRN 30 10/15/17 04/03/18 Days ml inhalational spacing device kit 10/15/17 04/03/18 [OptiChamber Advantage] ranitidine HCl 150 mg PO BID #180 tab-cap 10/31/17 04/03/18 fluoxetine 30 mg PO DAILY #90 cap 11/07/17 04/03/18 docusate sodium [Colace] 100 mg PO DAILY 60 Days #60 cap 01/09/18 04/03/18 diazepam 2 mg tablet 2 mg PO BID PRN #90 tab 02/14/18 04/03/18 cetirizine 10 mg capsule 10 mg PO DAILY #10 cap 03/01/18 04/03/18 thiamine HCl (vitamin B1) 100 mg 100 mg PO DAILY #90 tab 03/06/18 04/03/18 tablet benzonatate [Tessalon Perles] 100 mg PO TID PRN #14 cap 03/19/18 04/03/18 guaifenesin [Mucinex] 600 mg PO Q12H PRN #10 tab 03/19/18 04/03/18 ondansetron HCl [Zofran] 4 mg PO QID PRN #10 tab 03/19/18 04/03/18 Previous Rx's Medication Instructions Recorded budesonide-formoterol [Symbicort] 10.2 gm INHALATION BID #3 inhaler 06/20/17 albuterol sulfate [ProAir HFA] 2 puff INHALATION Q4H PRN PRN #1 10/02/17 inh albuterol sulfate 2.5 mg INHALATION Q4H PRN PRN 30 10/15/17 Days ml inhalational spacing device kit 10/15/17 [OptiChamber Advantage] ranitidine HCl 150 mg PO BID #180 tab-cap 10/31/17 fluoxetine 30 mg PO DAILY #90 cap 11/07/17 docusate sodium [Colace] 100 mg PO DAILY 60 Days #60 cap 01/09/18 diazepam 2 mg tablet 2 mg PO BID PRN #90 tab 02/14/18 cetirizine 10 mg capsule 10 mg PO DAILY #10 cap 03/01/18 thiamine HCl (vitamin B1) 100 mg 100 mg PO DAILY #90 tab 03/06/18 tablet benzonatate [Tessalon Perles] 100 mg PO TID PRN #14 cap 03/19/18 guaifenesin [Mucinex] 600 mg PO Q12H PRN #10 tab 03/19/18 ondansetron HCl [Zofran] 4 mg PO QID PRN #10 tab 03/19/18 Allergies Allergy/AdvReac Type Severity Reaction Status Date / Time No Known Allergies Allergy Verified 04/03/18 12:36 General FLASH: 3 Review of Systems Review of Systems 6 systems reviewed and otherwise negative PFSH COPD (chronic obstructive pulmonary disease) (Chronic) Adjustment disorder with anxiety (Acute) Dyspepsia (Acute) Malignant neoplasm of right lung (Acute) Tubular adenoma of colon (Acute) Alcohol abuse (Chronic) Anxiety (Chronic) Family History Father Essential hypertension Hyperlipidemia colonoscopy (01/19/15) Family History Father Essential hypertension Hyperlipidemia Medical History COPD (chronic obstructive pulmonary disease) (Chronic) Adjustment disorder with anxiety (Acute) Dyspepsia (Acute) Malignant neoplasm of right lung (Acute) Tubular adenoma of colon (Acute) Alcohol abuse (Chronic) Anxiety (Chronic) Social History adopted: No foster care: No household members: family housing: house lives independently: Yes current occupation: not working Smoking/Tobacco Use Status: Former Tobacco Use alcohol intake: current alcohol intake frequency: 3 or more drinks per day Alcohol type: beer and wine substance use type: does not use seatbelt use: always drive intox or ride w/ intox local intermodal truck driver: No water heater temp set < 120 deg: Yes working smoke detector in home: Yes fire extinguisher in home: Yes carbon monox detector in home: Yes firearms in home: Yes Surgical History colonoscopy (01/19/15) Social History adopted: No foster care: No household members: family housing: house lives independently: Yes current occupation: not working Smoking/Tobacco Use Status: Former Tobacco Use alcohol intake: current alcohol intake frequency: 3 or more drinks per day Alcohol type: beer and wine substance use type: does not use seatbelt use: always drive intox or ride w/ intox local intermodal truck driver: No water heater temp set < 120 deg: Yes working smoke detector in home: Yes fire extinguisher in home: Yes carbon monox detector in home: Yes firearms in home: Yes Exam Narrative Exam Narrative: GEN: awake, alert, oriented 3. Pleasant, well groomed, interactive. HEAD: Normocephalic, atraumatic ENT: Mucous membranes moist, oropharynx unremarkable, External ear exam unremarkable EYES: PERRL, EOMI. right conjunctival injection. Crusting of the eyelid. Fluorescein exam performed with right superonasal corneal abrasion outside the axis of vision. No Amy sign. Lids everted and no foreign body present NECK: Full ROM, no URSZULA, no menigismus EXT: Full ROM, no edema, no rash Neuro: Grossly normal neurologic exam, conversant, interactive. Psych: Speech fluent, thoughts congruent, affect normal
[2018-05-14 08:36] VITALS: BP 121/80; PULSE 86; RESP 16; TEMP 37; O2SAT 97
[2018-05-14] MEDS: Erythromycin Ophth Oint 3.5 GM TUBE (08:40)
== END 2018-05-14 08:50 | disposition home or self-care (01) ==
LOC: ER 09:19
PROVIDERS: Emergency Provider Emergency Medicine; PCP Internal Medicine
DX: S05.01XA Injury of conjunctiva and corneal abrasion without foreign body, right eye, initial encounter (principal); X58.XXXA Exposure to other specified factors, initial encounter; J44.9 Chronic obstructive pulmonary disease, unspecified; Z87.891 Personal history of nicotine dependence
CPT/HCPCS: 99283

== ENCOUNTER 2018-05-30 00:22 | Outpatient (CLI) | payer MEDICAID, SELFPAY ==
--- NOTE | 2018-05-30 09:52 | DI.CT_ITS ---
SYMPTOMS/DIAGNOSIS: LUNG CA RESTAGING S/P SBRT, RIGHT UPPER LOBE TUMOR, C34.[address]: CT examination of the chest was performed without contrast administration. Current examination is compared with the most recent chest CT of 06/17/2017, which showed right upper lobe mass-like radiodensity with interval diagnosis of lung carcinoma. Images obtained through the upper abdomen show unremarkable appearance of visualized portions of pancreas, spleen, adrenals and kidneys. Hepatic steatosis noted. No gross mediastinal or hilar adenopathy seen. No axillary or supraclavicular adenopathy. Previously described right upper lobe mass-like radiodensity with ground-glass halo again noted, grossly unchanged in size and appearance in comparison with the previous examination. Adjacent linear radiodensity may represent area of atelectasis or postradiation scarring. There is a question of interval development of a tiny new satellite nodule a few centimeters from the primary mass lesion measuring up to about 5 mm in diameter. No additional new findings. No pleural effusion. Tracheobronchial tree appears intact. CONCLUSION: No gross interval change in appearance of right upper lobe mass. Question small new satellite lesion in the right upper lobe.
== END 2018-05-30 00:42 ==
PROVIDERS: PCP Internal Medicine; Visit Provider Radiology Radiation Oncology
DX: C34.91 Malignant neoplasm of unspecified part of right bronchus or lung (principal); Z92.3 Personal history of irradiation
CPT/HCPCS: 71250

== ENCOUNTER 2018-06-06 13:45 | Emergency (ER) | payer MEDICAID, SELFPAY ==
[2018-06-06 13:53] VITALS: BP 127/85; PULSE 106; RESP 20; TEMP 36.9; O2SAT 95
--- NOTE | 2018-06-06 14:03 | W.ED.GENAD ---
Discharge Plan Disposition Patient Disposition: HOME Condition: Improving Discharge Details Chief Complaint: SOB Clinical Impression: Acute bronchitis Reason For Visit: i think i have pneumonia Primary Care Provider: Deborah Chow ED Provider: Ean Lyons Home Meds and New Rx's Prescriptions: New azithromycin 250 mg tablet See Rx Instructions .ROUTE .COMPLEX Qty: 6 RF: 0 Continued Symbicort 10.2 GM HFA aerosol inhaler 10.2 gm Inhalation BID Qty: 3 RF: 3 ranitidine HCl 150 MG tablet 150 mg PO BID Qty: 180 RF: 3 fluoxetine 10 MG capsule 30 mg PO DAILY Qty: 90 RF: 3 docusate sodium [Colace] 100 MG capsule 100 mg PO DAILY 60 Days Qty: 60 RF: 2 cetirizine 10 mg capsule 10 mg PO DAILY Qty: 10 RF: 0 thiamine HCl (vitamin B1) 100 mg tablet 100 mg PO DAILY Qty: 90 RF: 3 Spiriva with HandiHaler 30 CAP/INH capsule, w/inhalation device 1 cap Inhalation DAILY RF: 0 ProAir HFA 200 PUFF/INH HFA aerosol inhaler 2 puff Inhalation Q4H PRN PRN (Reason: Shortness Of Breath) Qty: 1 RF: 0 inhalational spacing device [OptiChamber Advantage] 1 EACH spacer 1 ea Miscellaneous DIRECTED RF: 0 albuterol sulfate 2.5 MG/3 ML solution for nebulization 2.5 mg Inhalation Q4H PRN PRN (Reason: Shortness Of Breath) 30 Days RF: 0 Discharge Instructions Instructions: Acute Bronchitis (ED) Additional Instructions: Your sodium was slightly low and you may increase salty foods in the diet over the next 2 days time. Please take antibiotics as prescribed. Continue your regular medications. Follow-up with Dr. Chow if not improving in 5 days time. Medical Decision Making 63-year-old male presents with cough, congestion, subjective fever and chills over 2 days time. He is afebrile, well-appearing, was slightly tachycardic at triage but now improving with rest. He is not hypoxic, he is taking liquids and solids by mouth. Differential diagnosis includes bronchitis, pneumonia, influenza or other viral syndrome. Patient was given Zofran for mild nausea, fluids by mouth, and given DuoNeb updraft referred for influenza testing. Rapid flu negative. Patient became quite anxious in the emergency department and given a small aliquot of Ativan. Labs: Chest x-ray without focal infiltrate. Consistent with bronchitis and given his underlying lung disease I will opt to treat with a course of antibiotics. Do not feel he requires steroid burst. Discussed with him home management as well as return precautions. Lab Data Lab results reviewed: Yes I reviewed the patient's lab results. Laboratory Results - last 24 hr 06/06/18 06/06/18 15:10 15:10 WBC 4.34 L RBC 4.40 L Hgb 14.8 Hct 42.7 MCV 97.0 H MCH 33.6 H MCHC 34.7 RDW 11.3 L Plt Count 177 MPV 9.2 Immature Gran % 0.2 Neutrophils % 64.1 Lymphocytes % 20.3 Monocytes % 14.7 Eosinophils % 0.2 Basophils % 0.5 Absolute Neutrophils 2.78 Absolute Lymphocytes 0.88 L Absolute Monocytes 0.64 Absolute Eosinophils 0.01 Absolute Basophils 0.02 Sodium 133 L Potassium 3.9 Chloride 96 L Carbon Dioxide 24.8 Anion Gap 12.2 H BUN 7 Creatinine 0.81 Estimated GFR/1.73 m2 >= 60.00 Glucose 96 Calcium 8.3 L HPI General Mode of arrival: ambulatory. Date/Time Provider Initiated Documentation: 06/06/18 13:58. Limitations to Documentation: no limitations. Information obtained by: patient. History of Present Illness 63 year old M presents to the emergency department with the chief complaint of Cough, congestion, subjective fever and chills. Able to eat and drink, described as moderate, Quality is described as dull, and is localized to the chest. Patient reports no radiation. Patient started experiencing this day(s) and it has been constant. No relieving factors improve symptom(s), No exacerbating factors reported . Patient notes cough, fever/chills and loss of appetite; denies nausea/vomiting. Patient did receive the following treatments prior to arrival, none Related Data Home Medications Medication Instructions Recorded Confirmed Symbicort 10.2 gm INHALATION BID #3 inhaler 06/20/17 06/06/18 Spiriva with HandiHaler 1 cap INHALATION DAILY 09/29/17 05/14/18 ProAir HFA 2 puff INHALATION Q4H PRN PRN #1 10/02/17 06/06/18 inh albuterol sulfate 2.5 mg INHALATION Q4H PRN PRN 30 10/15/17 06/06/18 Days ml inhalational spacing device kit 10/15/17 04/03/18 [OptiChamber Advantage] ranitidine HCl 150 mg PO BID #180 tab-cap 10/31/17 06/06/18 fluoxetine 30 mg PO DAILY #90 cap 11/07/17 06/06/18 docusate sodium [Colace] 100 mg PO DAILY 60 Days #60 cap 01/09/18 06/06/18 cetirizine 10 mg capsule 10 mg PO DAILY #10 cap 03/01/18 06/06/18 thiamine HCl (vitamin B1) 100 mg 100 mg PO DAILY #90 tab 03/06/18 06/06/18 tablet azithromycin See Rx Instructions .ROUTE 06/06/18 .COMPLEX #6 tab Previous Rx's Medication Instructions Recorded Symbicort 10.2 gm INHALATION BID #3 inhaler 06/20/17 ProAir HFA 2 puff INHALATION Q4H PRN PRN #1 10/02/17 inh albuterol sulfate 2.5 mg INHALATION Q4H PRN PRN 30 10/15/17 Days ml inhalational spacing device kit 10/15/17 [OptiChamber Advantage] ranitidine HCl 150 mg PO BID #180 tab-cap 10/31/17 fluoxetine 30 mg PO DAILY #90 cap 11/07/17 docusate sodium [Colace] 100 mg PO DAILY 60 Days #60 cap 01/09/18 cetirizine 10 mg capsule 10 mg PO DAILY #10 cap 03/01/18 thiamine HCl (vitamin B1) 100 mg 100 mg PO DAILY #90 tab 03/06/18 tablet azithromycin See Rx Instructions .ROUTE 06/06/18 .COMPLEX #6 tab Allergies Allergy/AdvReac Type Severity Reaction Status Date / Time No Known Allergies Allergy Verified 06/06/18 13:58 General Stated Complaint: SOB FLASH: 3 Review of Systems Review of Systems 6 systems reviewed and otherwise negative FORMERLY [facility], [facility] Social History adopted: No foster care: No household members: family housing: house lives independently: Yes current occupation: not working Smoking/Tobacco Use Status: Former Tobacco Use alcohol intake: current alcohol intake frequency: 3 or more drinks per day Alcohol type: beer and wine substance use type: does not use seatbelt use: always drive intox or ride w/ intox 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 Pleasant, well groomed, interactive. HEAD: Normocephalic, atraumatic ENT: Mucous membranes moist, oropharynx unremarkable, External ear exam unremarkable EYES: PERRL, EOMI NECK: Full ROM, no URSZULA, no menigismus CHEST/RESP: Nontender, clear to auscultation bilateral but slightly diminished, no wheeze/rhonchi/rales, cough noted CARDIOVASCULAR: RRR, not tachycardic at the time of my exam, no murmur, rub jeannie. 2+ Rad pulse bilateral ABDOMEN: Soft, nontender, no mass. +Bowel sounds EXT: Full ROM, no edema, no rash Neuro: Grossly normal neurologic exam, conversant, interactive. Psych: Speech fluent, thoughts congruent, affect normal Course Vital Signs Temperature 36.9 C 06/06/18 13:53 Pulse 106 H 06/06/18 13:53 Respiratory Rate 20 06/06/18 13:53 Blood Pressure 127/85 06/06/18 13:53 Pulse Oximetry 95 06/06/18 13:53 Temperature 36.9 C 06/06/18 13:53 Temperature Source Temporal Artery Scan 06/06/18 13:53 Pulse 106 H 06/06/18 13:53 Respiratory Rate 20 06/06/18 13:53 Respiratory Effort 06/06/18 13:56 Blood Pressure 127/85 06/06/18 13:53 Pulse Oximetry 95 06/06/18 13:53 Oxygen Delivery Method Room Air 06/06/18 13:53 Oxygen Flow Rate 0 06/06/18 13:53 Pain Level 8 06/06/18 13:53 Comment 06/06/18 13:53
[2018-06-06] MEDS: Ondansetron O.D.T. 4 MG TABEF PO (14:15)
[2018-06-06] MEDS: Acetaminophen 500 MG TAB 1000 MG PO (14:19)
--- NOTE | 2018-06-06 14:23 | DI.RAD_ITS ---
SYMPTOMS/DIAGNOSIS: COUGH, FEVER, I THINK I HAVE PNEUMONIA PA AND LATERAL CHEST: Comparison is made with March,. The heart size is normal. The lungs are well inflated and clear. No infiltrate or effusion is seen. IMPRESSION: Negative chest x-ray.
[2018-06-06] MEDS: Albuterol/Ipratropium 3 ML UPD VIAL UPD (15:02)
[2018-06-06] MEDS: LORazepam 0.5 MG TAB PO (15:02)
[2018-06-06 15:19] LABS: Abs Immature Grans 0.01 k/cumm (0.0-0.09); Absolute Basophil Count 0.02 k/cumm (0.0-0.2); Absolute Eosinophil Count 0.01 k/cumm (0.0-0.7); Absolute Lymphocyte Count 0.88 k/cumm (1.2-3.4); Absolute Monocyte Count 0.64 k/cumm (0.11-0.7); Absolute Neutrophil Count 2.78 k/cumm (1.2-6.7); Basophils % 0.5; Eosinophils % 0.2; HCT 42.7 % (40.0-50.0); HGB 14.8 g/dL (13.5-17.5); Immature Grans % 0.2; Lymphocytes % 20.3; Mean Corp. HGB Concentration 34.7 g/dL (32.0-36.0); Mean Corpuscular Hemoglobin 33.6 pg (27.0-33.0); Mean Platelet Volume 9.2 fL (8.0-11.0); Monocytes % 14.7; Neutrophils % 64.1; Platelet Count 177 x1000/uL (130-400); RBC Distribution Width 11.3 % (11.8-14.1); White Blood Cell Count 4.34 k/cumm (4.4-10.8)
[2018-06-06 15:27] LABS: Anion Gap 12.2 mmol/L (3-11); BUN 7 mg/dL (7-18); CO2 24.8 mmol/L (21.0-32.0); CREATININE 0.81 mg/dL (0.70-1.30); Calcium 8.3 mg/dL (8.5-10.1); Chloride 96 mmol/L (98-107); Glucose 96 mg/dL (70-100); Potassium 3.9 mmol/L (3.5-5.1); Sodium 133 mmol/L (136-145)
[2018-06-06 15:32] VITALS: RESP 8
[2018-06-06 15:58] VITALS: BP 143/86; PULSE 105; RESP 16; TEMP 36.9; O2SAT 95
[2018-06-06 16:00] VITALS: RESP 16
== END 2018-06-06 16:57 | disposition home or self-care (01) ==
PROVIDERS: Emergency Provider Emergency Medicine; PCP Internal Medicine
DX: J20.9 Acute bronchitis, unspecified (principal); F41.9 Anxiety disorder, unspecified; J44.9 Chronic obstructive pulmonary disease, unspecified; Z87.891 Personal history of nicotine dependence
CPT/HCPCS: 80048; 87449; 94640; 99283; 71046; 85025; J7620

== ENCOUNTER 2018-06-09 09:54 | Inpatient (IN) | payer MEDICAID, SELFPAY ==
[2018-06-09] VITALS (21 sets, daily range): BP systolic 120–146; BP diastolic 64–88; PULSE 84–108; RESP 13–23; TEMP 37–37.8; O2SAT 91–100
[2018-06-09] MEDS: Lactated Ringers 1,000 ML 125 ML IV (10:37)
[2018-06-09 10:38] LABS: Abs Immature Grans 0.01 k/cumm (0.0-0.09); Absolute Basophil Count 0.01 k/cumm (0.0-0.2); Absolute Eosinophil Count 0.01 k/cumm (0.0-0.7); Absolute Lymphocyte Count 0.64 k/cumm (1.2-3.4); Absolute Monocyte Count 0.52 k/cumm (0.11-0.7); Absolute Neutrophil Count 1.99 k/cumm (1.2-6.7); Basophils % 0.3; Eosinophils % 0.3; HCT 40.3 % (40.0-50.0); HGB 13.7 g/dL (13.5-17.5); Immature Grans % 0.3; Lymphocytes % 20.1; Mean Corpuscular Hemoglobin 33.7 pg (27.0-33.0); Mean Platelet Volume 9.4 fL (8.0-11.0); Monocytes % 16.4; Neutrophils % 62.6; Platelet Count 149 x1000/uL (130-400); RBC 4.07 m/cumm (4.50-6.00); RBC Distribution Width 11.2 % (11.8-14.1); White Blood Cell Count 3.18 k/cumm (4.4-10.8)
[2018-06-09 10:52] LABS: Lipase 836 U/L (73-393)
[2018-06-09 10:56] LABS: ALT 161 U/L (12-78); AST 257 U/L (15-37); Albumin 3.5 g/dL (3.4-5.0); Alkaline Phosphatase 137 U/L (46-116); Anion Gap 11.7 mmol/L (3-11); BUN 8 mg/dL (7-18); Bilirubin, Total 0.8 mg/dL (0.2-1.0); CO2 27.3 mmol/L (21.0-32.0); Calcium 8.2 mg/dL (8.5-10.1); Chloride 98 mmol/L (98-107); Glucose 94 mg/dL (70-100); Potassium 3.7 mmol/L (3.5-5.1); Sodium 137 mmol/L (136-145); Total Protein 7.3 g/dL (6.4-8.2)
[2018-06-09 11:39] LABS: Bilirubin Negative (Negative); Blood Negative (Negative); Clarity Clear; Glucose Negative (Negative); Ketones Negative (Negative); Leukocyte Esterase Negative (Negative); Nitrite Negative (Negative); Urobilinogen 0.2 EU/dL (Up TO 0.2)
[2018-06-09] MEDS: Omnipaque 350 MG/ML 100 ML BTL 93 ML IJ (12:27)
--- NOTE | 2018-06-09 12:30 | DI.CT_ITS ---
SYMPTOM/DIAGNOSIS: MID ABD PAIN RADIATING BANDLIKE BILATERAL, TENDER ABDOMEN AND PELVIC CT: CT scan of the abdomen and pelvis was performed following the uneventful administration of intravenous contrast material. Comparison is made with 01/03/18. No acute findings are seen in the lung bases. There is diffuse decreased attenuation of the liver consistent with fatty infiltration. No hepatic mass is seen. The portal and superior mesenteric veins are patent. The gallbladder is negative. No biliary ductal dilatation is seen. The pancreas, spleen and adrenal glands are unremarkable except for calcified granulomas in the spleen. The kidneys show normal and symmetric enhancement. No evidence of a solid renal mass or obstruction. There are a few tiny hypodensities in the kidneys, they are too small for further characterization but likely reflect cysts. The urinary bladder is intact. There may be mild thickening of the wall of the urinary bladder. No intraluminal mass is seen. The prostate gland appears grossly unremarkable. The bowel shows no evidence of obstruction or inflammation. There is a normal appendix present. There is atherosclerosis of the abdominal aorta but no aneurysmal dilatation is seen. No significant abdominal or pelvic adenopathy, ascites or pneumoperitoneum is present. There are degenerative changes seen in the bones. There is a question of lucencies seen scattered throughout the bones. IMPRESSION: 1. No evidence of an acute abdomen. 2. Question of mild thickening of the wall of the urinary bladder. This may represent a cystitis. 3. Lucencies seen in the bones. Diffuse infiltrative process cannot be excluded. Please correlate clinically.
--- NOTE | 2018-06-09 12:57 | NUR.NOTE ---
Nursing Note: Pt. ambulated to restroom, independent, steady gait. States he had a normal BM in addition to passing urine.
--- NOTE | 2018-06-09 12:58 | W.ED.GENAD ---
Discharge Plan Disposition Patient Disposition: [facility] INPATIENT Condition: Serious Discharge Details Chief Complaint: Abd Prob Clinical Impression: Acute pancreatitis, Alcohol abuse Reason For Visit: PANCREATITIS, ALCOHOLISM Admit Date/Time: 06/09/18 14:02 Admit Provider: Natali Hopper Attending Provider: Natali Hopper Primary Care Provider: Deborah Chow ED Provider: Elliot Lizarraga Discharge Data Discharge Date/Time-TO BE ENTERED AT DEPARTURE: 06/09/18 16:21 Medical Decision Making 13:00 --Adonay is a 63-year-old gentleman with multiple medical problems including history of chronic alcohol abuse who presents today with 5 days of persistent abdominal pain that radiates bandlike from his mid abdomen flanks bilaterally and no bowel movement in 3 days. Patient is tender midline. No peritoneal findings. Concern for bowel obstruction versus hepatitis versus AAA versus other. Labs were reviewed and transaminitis noted. Patient has a lipase of 836 which is consistent with pancreatitis. CT of the abdomen pelvis to assess for acute surgical pathology was reviewed and interpreted by radiology: IMPRESSION: 1. No definite acute abnormality seen to account for symptoms. 2. There may be mild slightly irregular bladder wall thickening. Consider cystitis. Early infiltrative process not excludable. Plan for IV fluid, NPO, admission for pancreatitis. 13:15 -- Patient reassessed and is agreeable with plan. He notes that he is feeling a bit shaky. Last drink was at 6am today. Plan to give ativan 1mg IV. I spoke with hospitalist who will admit. Care transitioned to hospitalist service. Diagnosis: Alcohol dependence, acute pancreatitis Disposition: Inpatient admission Please note that unintended delay in signing this ED note may inadvertently result in data populating into my documentation from inpatient hospitalization. HPI General Mode of arrival: ambulatory. Date/Time Provider Initiated Documentation: 06/09/18 10:12. Limitations to Documentation: no limitations. Information obtained by: patient. HPI Narrative: 63-year-old male with history of alcohol abuse, tubular adenoma of the colon, presents with chief complaint of abdominal pain. Patient notes that he has had abdominal pain for the past 4-5 days. Patient notes that the pain is localized to his mid abdomen and radiates bilaterally bandlike to his back. Pain is moderate. Feels full. He has associated nausea as well as fever and chills. Patient admits to consuming greater than or equal to 8 beers a day for years. Patient notes he has had no bowel movement in the past 3 days. Related Data Home Medications Medication Instructions Recorded Confirmed Symbicort 10.2 gm INHALATION BID #3 inhaler 06/20/17 06/09/18 Spiriva with HandiHaler 1 cap INHALATION DAILY 09/29/17 06/09/18 ProAir HFA 2 puff INHALATION Q4H PRN PRN #1 10/02/17 06/09/18 inh albuterol sulfate 2.5 mg INHALATION Q4H PRN PRN 30 10/15/17 06/09/18 Days ml inhalational spacing device kit 10/15/17 04/03/18 [OptiChamber Advantage] ranitidine HCl 150 mg PO BID #180 tab-cap 10/31/17 06/09/18 fluoxetine 30 mg PO DAILY #90 cap 11/07/17 06/09/18 docusate sodium [Colace] 100 mg PO DAILY 60 Days #60 cap 01/09/18 06/09/18 cetirizine 10 mg capsule 10 mg PO DAILY #10 cap 03/01/18 06/09/18 thiamine HCl (vitamin B1) 100 mg 100 mg PO DAILY #90 tab 03/06/18 06/09/18 tablet azithromycin See Rx Instructions .ROUTE 06/06/18 06/09/18 .COMPLEX #6 tab Previous Rx's Medication Instructions Recorded Symbicort 10.2 gm INHALATION BID #3 inhaler 06/20/17 ProAir HFA 2 puff INHALATION Q4H PRN PRN #1 10/02/17 inh albuterol sulfate 2.5 mg INHALATION Q4H PRN PRN 30 10/15/17 Days ml inhalational spacing device kit 10/15/17 [OptiChamber Advantage] ranitidine HCl 150 mg PO BID #180 tab-cap 10/31/17 fluoxetine 30 mg PO DAILY #90 cap 11/07/17 docusate sodium [Colace] 100 mg PO DAILY 60 Days #60 cap 01/09/18 cetirizine 10 mg capsule 10 mg PO DAILY #10 cap 03/01/18 thiamine HCl (vitamin B1) 100 mg 100 mg PO DAILY #90 tab 03/06/18 tablet azithromycin See Rx Instructions .ROUTE 06/06/18 .COMPLEX #6 tab Allergies Allergy/AdvReac Type Severity Reaction Status Date / Time No Known Allergies Allergy Verified 06/09/18 10:06 General Stated Complaint: Abd Prob FLASH: 3 Review of Systems Review of Systems All systems reviewed & are unremarkable except as noted in HPI and below Cardiovascular Denies chest pain Respiratory Denies cough Gastrointestinal Reports abdominal pain, Reports nausea and Denies vomiting COUNTS INCLUDE 234 BEDS AT THE [facility] Medical History COPD (chronic obstructive pulmonary disease) (Chronic) Adjustment disorder with anxiety (Acute) Dyspepsia (Acute) Malignant neoplasm of right lung (Acute) Tubular adenoma of colon (Acute) Alcohol abuse (Chronic) Anxiety (Chronic) Surgical History History of lung biopsy (Resolved) History of surgery on upper extremity (Resolved) colonoscopy (01/19/15) Family History Father Essential hypertension Hyperlipidemia Paternal Uncle Heart disease Stroke Cerebral hemorrhage Hypertension Brother Cancer Social History adopted: No foster care: No household members: family housing: house lives independently: Yes current occupation: not working Smoking/Tobacco Use Status: Former Tobacco Use alcohol intake: current alcohol intake frequency: 3 or more drinks per day Alcohol type: beer and wine substance use type: does not use seatbelt use: always drive intox or ride w/ intox 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 water heater temp set < 120 deg: Yes working smoke detector in home: Yes fire extinguisher in home: Yes carbon monox detector in home: Yes firearms in home: Yes Exam Const General: cooperative and no acute distress HENMT Head: normocephalic and atraumatic Mouth: moist mucous membranes Eyes Conjunctivae: normal conjunctivae Sclera: normal sclerae EOM: EOM intact bilaterally Neck Neck: trachea midline and supple Resp Auscultation: clear to auscultation bilaterally, no rales, no rhonchi and no wheezes Cardio Jugular venous pressure: no JVD Rate: regular rate and not tachycardic Rhythm: regular rhythm GI Inspection: non-distended Palpation: soft, not firm, no guarding, no masses, no pulsatile masses, not rigid and tender in the epigastrum Auscultation: normal bowel sounds Skin General skin exam: no rashes or lesions noted and no jaundice Neuro General: alert, awake, oriented x3 and tone normal Extrem General: no edema Psych Appearance: grossly normal Mental Status: mental status grossly normal Speech and Movement: speech and movement normal Course Vital Signs Temperature 37.1 C 06/09/18 10:02 Pulse 95 H 06/09/18 10:02 Respiratory Rate 14 06/09/18 10:02 Blood Pressure 139/84 06/09/18 10:02 Pulse Oximetry 100 06/09/18 10:02 Temperature 37.1 C 06/09/18 10:02 Temperature Source Temporal Artery Scan 06/09/18 10:02 Pulse 95 H 06/09/18 10:02 Respiratory Rate 14 06/09/18 10:02 Respiratory Effort Non-Labored 06/09/18 10:05 Blood Pressure 139/84 06/09/18 10:02 Blood Pressure Position Sitting 06/09/18 10:02 Pulse Oximetry 100 06/09/18 10:02 Oxygen Delivery Method Room Air 06/09/18 10:02 Oxygen Flow Rate 0 06/09/18 10:02 Pain Level 8 06/09/18 10:02 Lab/Test Results Lab/Test Results: Laboratory Tests Range/Units 06/09/18 06/09/18 06/09/18 10:30 10:30 10:30 WBC (4.4-10.8) k/cumm 3.18 L RBC (4.50-6.00) m/cumm 4.07 L Hgb (13.5-17.5) g/dL 13.7 Hct (40.0-50.0) % 40.3 MCV (80-95) fL 99.0 H MCH (27.0-33.0) pg 33.7 H MCHC (32.0-36.0) g/dL 34.0 RDW (11.8-14.1) % 11.2 L Plt Count (130-400) x1000/uL 149 MPV (8.0-11.0) fL 9.4 Immature Gran % 0.3 Neutrophils % 62.6 Lymphocytes % 20.1 Monocytes % 16.4 Eosinophils % 0.3 Basophils % 0.3 Absolute Neutrophils (1.2-6.7) k/cumm 1.99 Absolute Lymphocytes (1.2-3.4) k/cumm 0.64 L Absolute Monocytes (0.11-0.7) k/cumm 0.52 Absolute Eosinophils (0.0-0.7) k/cumm 0.01 Absolute Basophils (0.0-0.2) k/cumm 0.01 Sodium (136-145) mmol/L 137 Potassium (3.5-5.1) mmol/L 3.7 Chloride (98-107) mmol/L 98 Carbon Dioxide (21.0-32.0) mmol/L 27.3 Anion Gap (3-11) mmol/L 11.7 H BUN (7-18) mg/dL 8 Creatinine (0.70-1.30) mg/dL 0.80 Estimated GFR/1.73 m2 (mL/min/1.73m2) >= 60.00 Glucose (70-100) mg/dL 94 Calcium (8.5-10.1) mg/dL 8.2 L Total Bilirubin (0.2-1.0) mg/dL 0.8 AST (15-37) U/L 257 H ALT (12-78) U/L 161 H Alkaline Phosphatase (46-116) U/L 137 H Total Protein (6.4-8.2) g/dL 7.3 Albumin (3.4-5.0) g/dL 3.5 Lipase (73-393) U/L 836 H Urine Color (Yellow) Urine Clarity Urine pH (5-8) Ur Specific [place] (1.005-1.025) Urine Protein (Negative) mg/dL Urine Ketones (Negative) mg/dL Urine Blood (Negative) Urine Nitrite (Negative) Urine Bilirubin (Negative) Urine Urobilinogen (Up TO 0.2) EU/dL Ur Leukocyte Esterase (Negative) Urine Glucose (Negative) mg/dL Range/Units 06/09/18 11:30 WBC (4.4-10.8) k/cumm RBC (4.50-6.00) m/cumm Hgb (13.5-17.5) g/dL Hct (40.0-50.0) % MCV (80-95) fL MCH (27.0-33.0) pg MCHC (32.0-36.0) g/dL RDW (11.8-14.1) % Plt Count (130-400) x1000/uL MPV (8.0-11.0) fL Immature Gran % Neutrophils % Lymphocytes % Monocytes % Eosinophils % Basophils % Absolute Neutrophils (1.2-6.7) k/cumm Absolute Lymphocytes (1.2-3.4) k/cumm Absolute Monocytes (0.11-0.7) k/cumm Absolute Eosinophils (0.0-0.7) k/cumm Absolute Basophils (0.0-0.2) k/cumm Sodium (136-145) mmol/L Potassium (3.5-5.1) mmol/L Chloride (98-107) mmol/L Carbon Dioxide (21.0-32.0) mmol/L Anion Gap (3-11) mmol/L BUN (7-18) mg/dL Creatinine (0.70-1.30) mg/dL Estimated GFR/1.73 m2 (mL/min/1.73m2) Glucose (70-100) mg/dL Calcium (8.5-10.1) mg/dL Total Bilirubin (0.2-1.0) mg/dL AST (15-37) U/L ALT (12-78) U/L Alkaline Phosphatase (46-116) U/L Total Protein (6.4-8.2) g/dL Albumin (3.4-5.0) g/dL Lipase (73-393) U/L Urine Color (Yellow) Yellow Urine Clarity Clear Urine pH (5-8) 6.0 Ur Specific [place] (1.005-1.025) 1.010 Urine Protein (Negative) mg/dL Negative Urine Ketones (Negative) mg/dL Negative Urine Blood (Negative) Negative Urine Nitrite (Negative) Negative Urine Bilirubin (Negative) Negative Urine Urobilinogen (Up TO 0.2) EU/dL 0.2 Ur Leukocyte Esterase (Negative) Negative Urine Glucose (Negative) mg/dL Negative
--- NOTE | 2018-06-09 13:02 | DI.VRAD_ITS ---
EXAM: CT Abdomen and Pelvis With Contrast EXAM DATE/TIME: 06/09/2018 10:27 AM CLINICAL HISTORY: 63 years old, male; Pain; Abdominal pain; Generalized; Additional info: Mid abd pain, radiating bandlike, tender. TECHNIQUE: Axial computed tomography images of the abdomen and pelvis with intravenous contrast. All CT scans at this facility use at least one of these dose optimization techniques: automated exposure control; mA and/or kV adjustment per patient size (includes targeted exams where dose is matched to clinical indication); or iterative reconstruction. Coronal and sagittal reformatted images were created and reviewed. CONTRAST: 93 ml of omnipaque 350 administered intravenously. COMPARISON: CT ABD PELVIS WITH CONTRAST 01/03/2018 5:43 AM FINDINGS: Lower thorax: No acute findings. ABDOMEN: Liver: Fatty liver. Gallbladder and bile ducts: Normal. No calcified stones. No ductal dilation. Pancreas: Normal. No ductal dilation. Spleen: Normal. No splenomegaly. Adrenals: Normal. No mass. Kidneys and ureters: Normal. No hydronephrosis. Stomach and bowel: Normal. No obstruction. No mucosal thickening. Appendix: No evidence of appendicitis. PELVIS: Bladder: Allowing for degree of distention there is some mild thickening and irregularity to the bladder wall. Reproductive: Unremarkable as visualized. ABDOMEN and PELVIS: Intraperitoneal space: Normal. No free air. No significant fluid collection. Bones/joints: Moderate lumbar spondylosis. Moderate lumbar spondylosis. Soft tissues: Small, fat-containing left inguinal hernia. Vasculature: Normal. No abdominal aortic aneurysm. Lymph nodes: Normal. No enlarged lymph nodes. IMPRESSION: 1. No definite acute abnormality seen to account for symptoms. 2. There may be mild slightly irregular bladder wall thickening. Consider cystitis. Early infiltrative process not excludable. COMMENT: Preliminary interpretation is based on receipt of 303 image(s). A final report will be issued subsequently. Dictated and Authenticated by: Ekaterina Reyes MD. Ordering:CRISTOPHER Zarate MD
[2018-06-09] MEDS: LORazepam 2 MG/ML VIAL 1 MG IVP (13:38)
--- NOTE | 2018-06-09 15:29 | W.PM.HP.N ---
Date of service: 06/09/18 Time of Service: 15:29 Assessment and Plan (1) Melena: Current visit: Yes Status: Acute DDx: gastritis, peptic ulcer disease, possible variceal bleed (though this is less likely, usually these are much more severe). Admit to medical surgical floor with telemetry, IV PPI BID, carafate; otherwise, NPO. No chemical DVT ppx. Check hemoccult. If indeed positive, consult general surgery. Monitor H/H. (2) Epigastric pain: Current visit: Yes Status: Acute While lipase is elevated, there is no imaging evidence for acute pancreatitis. The patient will be kept NPO with aggressive IV hydration as he is likely having an upper GI bleed. (3) Near syncope: Current visit: Yes Status: Acute Etiology unclear. Check orthostatics, keep on tele, check a troponin and an EKG. Check US carotids and echo. (4) Alcohol abuse: Current visit: No Status: Acute Will provide vitamins PO. Monitor on CIWA. (5) Chronic obstructive pulmonary disease: Current visit: No Status: Acute With mild acute exacerbation/bronchitis, which is already resolving. Finish outpatient azithromycin. (6) DVT prophylaxis: Current visit: Yes Status: Acute SCD's + TEDs due to suspected GI bleed (7) Discharge planning issues: Current visit: Yes Status: Acute Full code History of Present Illness Chief Complaint: I couldn't breathe and was having abdominal pain. I guess I drank too much Narrative: Mr Urias is a 63 year old male with PMHx of non-oxygen dependent COPD, dyspepsia, alcohol abuse, anxiety, and lung cancer s/p radiation, who presented to [facility] ED today complaining of shortness of breath and epigastric pain. He also reports feeling like he might faint quite frequently, and the last time he felt that way was today. He describes black stools for the last several days. Denies NSAID use. He states that his breathing is getting a lot better, denying cough and complaining of wheezing. He also reports occasional burning when he urinates. In the ED, his bloodwork revealed elevated LFT's and lipase. Acute pancreatitis is suspected. We were asked to admit the patient for further care. He normally drinks at least a 6 pack of beer per day. His last drink was this morning. He does get shaky when he doesn't drink, and he has gotten confused before, but he has never had withdrawal seizures. Review of Systems Review of Systems 12 systems reviewed. Pertinent positives and negatives are as per HPI. [facility] Medical History COPD (chronic obstructive pulmonary disease) (Chronic) Adjustment disorder with anxiety (Acute) Dyspepsia (Acute) Malignant neoplasm of right lung (Acute) Tubular adenoma of colon (Acute) Alcohol abuse (Chronic) Anxiety (Chronic) Surgical History History of lung biopsy (Resolved) History of surgery on upper extremity (Resolved) colonoscopy (01/19/15) Family History Father Essential hypertension Hyperlipidemia Paternal Uncle Heart disease Stroke Cerebral hemorrhage Hypertension Brother Cancer Social History adopted: No foster care: No household members: family housing: house lives independently: Yes current occupation: not working Smoking/Tobacco Use Status: Former Tobacco Use alcohol intake: current alcohol intake frequency: 3 or more drinks per day Alcohol type: beer and wine substance use type: does not use seatbelt use: always drive intox or ride w/ intox mobile lounge driver: No water heater temp set < 120 deg: Yes working smoke detector in home: Yes fire extinguisher in home: Yes carbon monox detector in home: Yes firearms in home: Yes Meds Home Medications Medication Instructions Recorded Confirmed Type Symbicort 10.2 gm INHALATION BID #3 inhaler 06/20/17 06/09/18 Rx Spiriva with HandiHaler 1 cap INHALATION DAILY 09/29/17 06/09/18 History ProAir HFA 2 puff INHALATION Q4H PRN PRN #1 10/02/17 06/09/18 Rx inh albuterol sulfate 2.5 mg INHALATION Q4H PRN PRN 30 10/15/17 06/09/18 Rx Days ml inhalational spacing device kit 10/15/17 04/03/18 Rx [OptiChamber Advantage] ranitidine HCl 150 mg PO BID #180 tab-cap 05/29/18 01/05/19 Rx fluoxetine 30 mg PO DAILY #90 cap 11/07/17 06/09/18 Rx docusate sodium [Colace] 100 mg PO DAILY 60 Days #60 cap 01/09/18 06/09/18 Rx cetirizine 10 mg capsule 10 mg PO DAILY #10 cap 03/01/18 06/09/18 Rx thiamine HCl (vitamin B1) 100 mg 100 mg PO DAILY #90 tab 03/06/18 06/09/18 Rx tablet azithromycin See Rx Instructions .ROUTE 06/06/18 06/09/18 Rx .COMPLEX #6 tab Allergies Allergy/AdvReac Type Severity Reaction Status Date / Time No Known Allergies Allergy Verified 06/09/18 10:06 Exam Narrative Exam Narrative: General: Very pleasant unkempt and malnourished appearing male, laying in bed comfortably, not in acute distress Neurological: A&OX3, no focal deficits Psychiatric: appropriate speech pattern/content; bright affect Skin: dry, bruise left anterior chest (about the size of a quarter, green) HEENT: EOMI, Dry MM, clear oropharynx, no submandibular or cervical lymphadenopathy, no goiter or JVD Cardiovascular: RRR, no m/r/g Lungs: Diminished, slightly coarse breath sounds B Gastrointestinal: abdomen soft, tender in epigastrium, nondistended Genitourinary: deferred Extremities: no edema, clubbing, or cyanosis, 1+ pedal pulses B. Results Imaging Additional studies: CT abdomen/pelvis: 1. No definite acute abnormality seen to account for symptoms. 2. There may be mild slightly irregular bladder wall thickening. Consider cystitis. Early infiltrative process not excludable. CXR 06/06/18: Negative chest x-ray. Labs : 06/09/18 10:30 06/09/18 10:30 Laboratory Results - last 24 hr 06/09/18 06/09/18 06/09/18 10:30 10:30 10:30 WBC 3.18 L RBC 4.07 L Hgb 13.7 Hct 40.3 MCV 99.0 H MCH 33.7 H MCHC 34.0 RDW 11.2 L Plt Count 149 MPV 9.4 Immature Gran % 0.3 Neutrophils % 62.6 Lymphocytes % 20.1 Monocytes % 16.4 Eosinophils % 0.3 Basophils % 0.3 Absolute Neutrophils 1.99 Absolute Lymphocytes 0.64 L Absolute Monocytes 0.52 Absolute Eosinophils 0.01 Absolute Basophils 0.01 Sodium 137 Potassium 3.7 Chloride 98 Carbon Dioxide 27.3 Anion Gap 11.7 H BUN 8 Creatinine 0.80 Estimated GFR/1.73 m2 >= 60.00 Glucose 94 Calcium 8.2 L Total Bilirubin 0.8 AST 257 H ALT 161 H Alkaline Phosphatase 137 H Total Protein 7.3 Albumin 3.5 Lipase 836 H Urine Color Urine Clarity Urine pH Ur Specific [place] Urine Protein Urine Ketones Urine Blood Urine Nitrite Urine Bilirubin Urine Urobilinogen Ur Leukocyte Esterase Urine Glucose 06/09/18 11:30 WBC RBC Hgb Hct MCV MCH MCHC RDW Plt Count MPV Immature Gran % Neutrophils % Lymphocytes % Monocytes % Eosinophils % Basophils % Absolute Neutrophils Absolute Lymphocytes Absolute Monocytes Absolute Eosinophils Absolute Basophils Sodium Potassium Chloride Carbon Dioxide Anion Gap BUN Creatinine Estimated GFR/1.73 m2 Glucose Calcium Total Bilirubin AST ALT Alkaline Phosphatase Total Protein Albumin Lipase Urine Color Yellow Urine Clarity Clear Urine pH 6.0 Ur Specific [place] 1.010 Urine Protein Negative Urine Ketones Negative Urine Blood Negative Urine Nitrite Negative Urine Bilirubin Negative Urine Urobilinogen 0.2 Ur Leukocyte Esterase Negative Urine Glucose Negative Last Vital Signs Temp 37.1 C 06/09/18 10:02 Pulse 90 06/09/18 14:20 Resp 16 06/09/18 14:20 BP 141/88 H 06/09/18 14:20 Pulse Ox 100 06/09/18 14:20
--- NOTE | 2018-06-09 15:33 | HPE_ITS ---
Date of service: 06/09/18 Time of Service: 15:29 Assessment and Plan (1) Melena: Current visit: Yes Status: Acute DDx: gastritis, peptic ulcer disease, possible variceal bleed (though this is less likely, usually these are much more severe). Admit to medical surgical floor with telemetry, IV PPI BID, carafate; otherwise, NPO. No chemical DVT ppx. Check hemoccult. If indeed positive, consult general surgery. Monitor H/H. (2) Epigastric pain: Current visit: Yes Status: Acute While lipase is elevated, there is no imaging evidence for acute pancreatitis. The patient will be kept NPO with aggressive IV hydration as he is likely having an upper GI bleed. (3) Near syncope: Current visit: Yes Status: Acute Etiology unclear. Check orthostatics, keep on tele, check a troponin and an EKG. Check US carotids and echo. (4) Alcohol abuse: Current visit: No Status: Acute Will provide vitamins PO. Monitor on CIWA. (5) Chronic obstructive pulmonary disease: Current visit: No Status: Acute With mild acute exacerbation/bronchitis, which is already resolving. Finish outpatient azithromycin. (6) DVT prophylaxis: Current visit: Yes Status: Acute SCD's + TEDs due to suspected GI bleed (7) Discharge planning issues: Current visit: Yes Status: Acute Full code History of Present Illness Chief Complaint: I couldn't breathe and was having abdominal pain. I guess I drank too much Narrative: Mr Urias is a 63 year old male with PMHx of non- oxygen dependent COPD, dyspepsia, alcohol abuse, anxiety, and lung cancer s/p radiation, who presented to [facility] ED today complaining of shortness of breath and epigastric pain. He also reports feeling like he might faint quite frequently, and the last time he felt that way was today. He describes black stools for the last several days. Denies NSAID use. He states that his breathing is getting a lot better, denying cough and complaining of wheezing. He also reports occasional burning when he urinates. In the ED, his bloodwork revealed elevated LFT's and lipase. Acute pancreatitis is suspected. We were asked to admit the patient for further care. He normally drinks at least a 6 pack of beer per day. His last drink was this morning. He does get shaky when he doesn't drink, and he has gotten confused be fore, but he has never had withdrawal seizures. Review of Systems Review of Systems 12 systems reviewed. Pertinent positives and negatives are as per HPI. [facility] Medical History COPD (chronic obstructive pulmonary disease) (Chronic) Adjustment disorder with anxiety (Acute) Dyspepsia (Acute) Malignant neoplasm of right lung (Acute) Tubular adenoma of colon (Acute) Alcohol abuse (Chronic) Anxiety (Chronic) Surgical History History of lung biopsy (Resolved) History of surgery on upper extremity (Resolved) colonoscopy (01/19/15) Family History Father Essential hypertension Hyperlipidemia Paternal Uncle Heart disease Stroke Cerebral hemorrhage Hypertension Brother Cancer Social History adopted: No foster care: No household members: family housing: house lives independently: Yes current occupation: not working Smoking/Tobacco Use Status: Former Tobacco Use alcohol intake: current alcohol intake frequency: 3 or more drinks per day Alcohol type: beer and wine substance use type: does not use seatbelt use: always drive intox or ride w/ intox 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: No water heater temp set < 120 deg: Yes working smoke detector in home: Yes fire extinguisher in home: Yes carbon monox detector in home: Yes firearms in home: Yes Meds Home Medications Medication Instructions Recorded Confirmed Type Symbicort 10.2 gm INHALATION BID #3 inhaler 06/20/17 06/09/18 Rx Spiriva with HandiHaler 1 cap INHALATION DAILY 09/29/17 06/09/18 History ProAir HFA 2 puff INHALATION Q4H PRN PRN #1 10/02/17 06/09/18 Rx inh albuterol sulfate 2.5 mg INHALATION Q4H PRN PRN 30 10/15/17 06/09/18 Rx Days ml inhalational spacing device kit 10/15/17 04/03/18 Rx [OptiChamber Advantage] ranitidine HCl 150 mg PO BID #180 tab-cap 10/31/17 06/09/18 Rx fluoxetine 30 mg PO DAILY #90 cap 11/07/17 06/09/18 Rx docusate sodium [Colace] 100 mg PO DAILY 60 Days #60 cap 01/09/18 06/09/18 Rx cetirizine 10 mg capsule 10 mg PO DAILY #10 cap 03/01/18 06/09/18 Rx thiamine HCl (vitamin B1) 100 mg 100 mg PO DAILY #90 tab 03/06/18 06/09/18 Rx tablet azithromycin See Rx Instructions .ROUTE 06/06/18 06/09/18 Rx .COMPLEX #6 tab Allergies Allergy/AdvReac Type Severity Reaction Status Date / Time No Known Allergies Allergy Verified 06/09/18 10:06 Exam Narrative Exam Narrative: General: Very pleasant unkempt and malnourished appearing male, laying in bed comfortably, not in acute distress Neurological: A&OX3, no focal deficits Psychiatric: appropriate speech pattern/content; bright affect Skin: dry, bruise left anterior chest (about the size of a quarter, green) HEENT: EOMI, Dry MM, clear oropharynx, no submandibular or cervical lymphadenopathy, no goiter or JVD Cardiovascular: RRR, no m/r/g Lungs: Diminished, slightly coarse breath sounds B Gastrointestinal: abdomen soft, tender in epigastrium, nondistended Genitourinary: deferred Extremities: no edema, clubbing, or cyanosis, 1+ pedal pulses B. Results Imaging Additional studies: CT abdomen/pelvis: 1. No definite acute abnormality seen to account for symptoms. 2. There may be mild slightly irregular bladder wall thickening. Consider cystitis. Early infiltrative process not excludable. CXR 06/06/18: Negative chest x-ray. Labs : 06/09/18 10:30 06/09/18 10:30 Laboratory Results - last 24 hr 06/09/18 06/09/18 06/09/18 10:30 10:30 10:30 WBC 3.18 L RBC 4.07 L Hgb 13.7 Hct 40.3 MCV 99.0 H MCH 33.7 H MCHC 34.0 RDW 11.2 L Plt Count 149 MPV 9.4 Immature Gran % 0.3 Neutrophils % 62.6 Lymphocytes % 20.1 Monocytes % 16.4 Eosinophils % 0.3 Basophils % 0.3 Absolute Neutrophils 1.99 Absolute Lymphocytes 0.64 L Absolute Monocytes 0.52 Absolute Eosinophils 0.01 Absolute Basophils 0.01 Sodium 137 Potassium 3.7 Chloride 98 Carbon Dioxide 27.3 Anion Gap 11.7 H BUN 8 Creatinine 0.80 Estimated GFR/1.73 m2 >= 60.00 Glucose 94 Calcium 8.2 L Total Bilirubin 0.8 AST 257 H ALT 161 H Alkaline Phosphatase 137 H Total Protein 7.3 Albumin 3.5 Lipase 836 H Urine Color Urine Clarity Urine pH Ur Specific [place] Urine Protein Urine Ketones Urine Blood Urine Nitrite Urine Bilirubin Urine Urobilinogen Ur Leukocyte Esterase Urine Glucose 06/09/18 11:30 WBC RBC Hgb Hct MCV MCH MCHC RDW Plt Count MPV Immature Gran % Neutrophils % Lymphocytes % Monocytes % Eosinophils % Basophils % Absolute Neutrophils Absolute Lymphocytes Absolute Monocytes Absolute Eosinophils Absolute Basophils Sodium Potassium Chloride Carbon Dioxide Anion Gap BUN Creatinine Estimated GFR/1.73 m2 Glucose Calcium Total Bilirubin AST ALT Alkaline Phosphatase Total Protein Albumin Lipase Urine Color Yellow Urine Clarity Clear Urine pH 6.[address] [place] 1.010 Urine Protein Negative Urine Ketones Negative Urine Blood Negative Urine Nitrite Negative Urine Bilirubin Negative Urine Urobilinogen 0.2 Ur Leukocyte Esterase Negative Urine Glucose Negative Last Vital Signs Temp 37.1 C 06/09/18 10:02 Pulse 90 06/09/18 14:20 Resp 16 06/09/18 14:20 BP 141/88 H 06/09/18 14:20 Pulse Ox 100 06/09/18 14:20
[2018-06-09] MEDS: LORazepam 1 MG TAB PO/SL (15:35)
--- NOTE | 2018-06-09 16:16 | NUR.NOTE ---
Nursing Note: Report given to Kandi Mascorro RN. Pt. is stable for transfer upstairs. Transferred upstairs on stretcher, tele by ANNETTA Tate.
[2018-06-09 16:20] LABS: Troponin I < 0.02 ng/mL (0.00-0.06)
[2018-06-09] MEDS: Normal Saline 1,000 ML 200 ML IV ×2 (16:50→22:04)
[2018-06-09] MEDS: Sucralfate 1 GM TAB PO ×2 (16:50→20:58)
[2018-06-09] MEDS: Pantoprazole 40 MG VIAL IVP (17:00)
[2018-06-09] MEDS: Acetaminophen 325 MG TAB PO (20:27)
[2018-06-09] MEDS: Budesonide/Formoterol 160/4.5 6 GM 60 PUFF INH IH (20:42)
[2018-06-09] MEDS: Nicotine 21 MG/24 HR PATCH TD (20:57)
[2018-06-09 22:05] LABS: Bilirubin Negative (Negative); Blood Negative (Negative); Clarity Clear; Glucose Negative (Negative); Ketones 40 mg/dL (Negative); Leukocyte Esterase Negative (Negative); Nitrite Negative (Negative); Specific Gravity 1.015 (1.005-1.025); Urobilinogen 0.2 EU/dL (Up TO 0.2)
[2018-06-10] VITALS (24 sets, daily range): BP systolic 112–159; BP diastolic 59–103; PULSE 69–100; RESP 12–28; TEMP 36.7–37.8; O2SAT 93–99
[2018-06-10] MEDS: Sucralfate 1 GM TAB PO ×4 (02:35→21:58)
[2018-06-10] MEDS: Acetaminophen 325 MG TAB PO ×2 (02:36→21:59)
[2018-06-10] MEDS: Normal Saline 1,000 ML 200 ML IV ×2 (03:10→07:37)
[2018-06-10 07:12] LABS: Abs Immature Grans 0.02 k/cumm (0.0-0.09); Absolute Basophil Count 0.01 k/cumm (0.0-0.2); Absolute Eosinophil Count 0.03 k/cumm (0.0-0.7); Absolute Lymphocyte Count 0.47 k/cumm (1.2-3.4); Absolute Monocyte Count 0.48 k/cumm (0.11-0.7); Basophils % 0.3; Eosinophils % 0.8; HCT 36.7 % (40.0-50.0); HGB 12.3 g/dL (13.5-17.5); Immature Grans % 0.5; Lymphocytes % 12.7; Mean Corp. HGB Concentration 33.5 g/dL (32.0-36.0); Mean Corpuscular Volume 101.4 fL (80-95); Mean Platelet Volume 9.8 fL (8.0-11.0); Monocytes % 12.9; Neutrophils % 72.8; Platelet Count 131 x1000/uL (130-400); RBC 3.62 m/cumm (4.50-6.00); RBC Distribution Width 11.3 % (11.8-14.1); White Blood Cell Count 3.71 k/cumm (4.4-10.8)
[2018-06-10 07:21] LABS: Prothrombin Time 9.5 sec (9.3-11.0)
[2018-06-10 07:32] LABS: ALT 119 U/L (12-78); AST 161 U/L (15-37); Albumin 2.7 g/dL (3.4-5.0); Alkaline Phosphatase 112 U/L (46-116); Anion Gap 10.7 mmol/L (3-11); BUN 10 mg/dL (7-18); Bilirubin, Direct 0.47 mg/dL (0.00-0.20); Bilirubin, Total 1.5 mg/dL (0.2-1.0); CO2 25.3 mmol/L (21.0-32.0); CREATININE 0.88 mg/dL (0.70-1.30); Calcium 7.4 mg/dL (8.5-10.1); Chloride 103 mmol/L (98-107); Glucose 59 mg/dL (70-100); Magnesium 2.1 mg/dL (1.8-2.4); Sodium 139 mmol/L (136-145); Total Protein 5.8 g/dL (6.4-8.2)
[2018-06-10] MEDS: Budesonide/Formoterol 160/4.5 6 GM 60 PUFF INH IH ×2 (07:54→19:59)
[2018-06-10] MEDS: Docusate Sodium 100 MG CAP PO ×2 (08:37→22:19)
[2018-06-10] MEDS: Thiamine 100 MG TAB PO (08:37)
[2018-06-10] MEDS: Pantoprazole 40 MG VIAL IVP ×2 (08:37→20:00)
[2018-06-10] MEDS: Normal Saline Flush 10 ML SYR IVP ×2 (08:38→15:57)
[2018-06-10] MEDS: Cetirizine 10 MG TAB PO (08:40)
[2018-06-10] MEDS: FLUoxetine 10 MG TAB 30 MG PO (08:40)
--- NOTE | 2018-06-10 12:20 | PGE_ITS ---
Date of Service Date of service: 06/10/18 Time of Service: 12:18 Assessment and Plan (1) Melena: Current visit: Yes Status: Acute Surgery consulted. Continue telemetry, IV PPI BID, carafate; Continue NPO status. Await Hemoccult. (2) Epigastric pain: Current visit: Yes Status: Acute Unclear whether the patient has true pancreatitis (CT not suggestive of this), possibly due to gastritis, ?ulcer. Surgery consulted. Continue prn morphine. (3) Near syncope: Current visit: Yes Status: Acute Is orthostatic. Continue IVF. keep on tele, await US carotids and echo. (4) Alcohol abuse: Current visit: No Status: Acute Continue CIWA; has prn ativan. Continue banana bag. (5) Chronic obstructive pulmonary disease: Current visit: No Status: Chronic At baseline. Finished azithromycin (6) DVT prophylaxis: Current visit: Yes Status: Acute SCD's + TEDs due to suspected GI bleed (7) Discharge planning issues: Current visit: Yes Status: Acute Full code Subjective Interval history since last seen: Complains of nausea and epigastric pain. No BM today. Complains of dizziness when standing (was orthostatic when he got up). Denies chest pain/shortness of breath Exam Narrative Exam Narrative: General: Middle aged male, sitting comfortably in a chair, conversant, A&OX3, tremulous HEENT: EOMI, Dry MM Cardiovascular: RRR, no m/r/g Lungs: Diminished, clear to auscultation B Gastrointestinal: abdomen soft, tender in epigastrium, nondistended Extremities: no edema, clubbing, or cyanosis, 1+ pedal pulses B. Objective Objective Clinical Data: Abnormal lab results 06/09/18 06/09/18 06/10/18 Range/Units 10:30 21:35 06:25 WBC (4.4-10.8) k/cumm RBC (4.50-6.00) m/cumm Hgb (13.5-17.5) g/dL Hct (40.0-50.0) % MCV (80-95) fL MCH (27.0-33.0) pg RDW (11.8-14.1) % Absolute Lymphocytes (1.2-3.4) k/cumm Anion Gap 11.7 H (3-11) mmol/L Glucose 59 L (70-100) mg/dL Calcium 8.2 L 7.4 L (8.5-10.1) mg/dL Total Bilirubin 1.5 H (0.2-1.0) mg/dL Conjugated Bilirubin 0.47 H (0.00-0.20) mg/dL AST 257 H 161 H (15-37) U/L ALT 161 H 119 H (12-78) U/L Alkaline Phosphatase 137 H (46-116) U/L Total Protein 5.8 L (6.4-8.2) g/dL Albumin 2.7 L (3.4-5.0) g/dL Urine Ketones 40 H (Negative) mg/dL 06/10/18 Range/Units 06:25 WBC 3.71 L (4.4-10.8) k/cumm RBC 3.62 L (4.50-6.00) m/cumm Hgb 12.3 L (13.5-17.5) g/dL Hct 36.7 L (40.0-50.0) % MCV 101.4 H (80-95) fL MCH 34.0 H (27.0-33.0) pg RDW 11.3 L (11.8-14.1) % Absolute Lymphocytes 0.47 L (1.2-3.4) k/cumm Anion Gap (3-11) mmol/L Glucose (70-100) mg/dL Calcium (8.5-10.1) mg/dL Total Bilirubin (0.2-1.0) mg/dL Conjugated Bilirubin (0.00-0.20) mg/dL AST (15-37) U/L ALT (12-78) U/L Alkaline Phosphatase (46-116) U/L Total Protein (6.4-8.2) g/dL Albumin (3.4-5.0) g/dL Urine Ketones (Negative) mg/dL Vital Signs Temperature 37 C 06/10/18 10:06 Temperature Source Temporal Artery Scan 06/10/18 10:06 Pulse 82 06/10/18 11:08 Pulse 82 06/10/18 11:08 Respiratory Rate 23 06/10/18 11:08 Respiratory Effort 06/10/18 10:06 Respiratory Depth Normal 06/10/18 10:06 Respiratory Pattern Normal 06/10/18 10:06 Blood Pressure 150/87 H 06/10/18 11:08 Blood Pressure Mean 99 06/10/18 11:08 Blood Pressure Position Supine 06/10/18 10:06 Pulse Oximetry 96 06/10/18 10:03 Oxygen Delivery Method Room Air 06/10/18 10:06 Oxygen Flow Rate 0 06/10/18 10:06 Pain Level 8 06/10/18 10:06 Comment 06/10/18 10:03 Intake & Output 06/09/18 06/10/18 06/10/18 23:59 11:59 23:59 Intake Total 2734.583 / 2734.583 2600 / 3390 790 / 3390 Output Total 650 / 650 1096 / 1096 Balance 2084.583 / 2084.583 1504 / 2294 790 / 2294 Weight 60.7 kg 61.3 kg Intake: IV 2714.583 / 2714.583 2600 / 3390 790 / 3390 Oral 20 Output: Urine 650 / 650 925 / 925 Post Void Residual 171 / 171 Other: Urine Color Yellow Yellow Urine Appearance Clear Clear Urine Odor None Comment Pt last voided in the ER. Denies urge to void w/no bladder distention noted at this time. Pt now voided 350cc clear dark yellow urine. Voiding Methods Urinal Urinal Laboratory Results WBC 3.71 k/cumm (4.4-10.8) L 06/10/18 06:25 RBC 3.62 m/cumm (4.50-6.00) L 06/10/18 06:25 Hgb 12.3 g/dL (13.5-17.5) L 06/10/18 06:25 Hct 36.7 % (40.0-50.0) L 06/10/18 06:25 MCV 101.4 fL (80-95) H 06/10/18 06:25 MCH 34.0 pg (27.0-33.0) H 06/10/18 06:25 MCHC 33.5 g/dL (32.0-36.0) 06/10/18 06:25 RDW 11.3 % (11.8-14.1) L 06/10/18 06:25 Plt Count 131 x1000/uL (130-400) 06/10/18 06:25 MPV 9.8 fL (8.0-11.0) 06/10/18 06:25 Immature Gran % 0.5 06/10/18 06:25 Neutrophils % 72.8 06/10/18 06:25 Lymphocytes % 12.7 06/10/18 06:25 Monocytes % 12.9 06/10/18 06:25 Eosinophils % 0.8 06/10/18 06:25 Basophils % 0.3 06/10/18 06:25 Absolute Neutrophils 2.70 k/cumm (1.2-6.7) 06/10/18 06:25 Absolute Lymphocytes 0.47 k/cumm (1.2-3.4) L 06/10/18 06:25 Absolute Monocytes 0.48 k/cumm (0.11-0.7) 06/10/18 06:25 Absolute Eosinophils 0.03 k/cumm (0.0-0.7) 06/10/18 06:25 Absolute Basophils 0.01 k/cumm (0.0-0.2) 06/10/18 06:25 PT 9.5 sec (9.3-11.0) 06/10/18 06:25 INR 1.0 (0.9-1.1) 06/10/18 06:25 Sodium 139 mmol/L (136-145) 06/10/18 06:25 Potassium 4.0 mmol/L (3.5-5.1) 06/10/18 06:25 Chloride 103 mmol/L (98-107) 06/10/18 06:25 Carbon Dioxide 25.3 mmol/L (21.0-32.0) 06/10/18 06:25 Anion Gap 10.7 mmol/L (3-11) 06/10/18 06:25 BUN 10 mg/dL (7-18) 06/10/18 06:25 Creatinine 0.88 mg/dL (0.70-1.30) 06/10/18 06:25 Estimated GFR/1.73 m2 >= 60.00 (mL/min/1.73m2) 06/10/18 06:25 Glucose 59 mg/dL (70-100) L 06/10/18 06:25 Calcium 7.4 mg/dL (8.5-10.1) L 06/10/18 06:25 Magnesium 2.1 mg/dL (1.8-2.4) 06/10/18 06:25 Total Bilirubin 1.5 mg/dL (0.2-1.0) H 06/10/18 06:25 Conjugated Bilirubin 0.47 mg/dL (0.00-0.20) H 06/10/18 06:25 AST 161 U/L (15-37) H 06/10/18 06:25 ALT 119 U/L (12-78) H 06/10/18 06:25 Alkaline Phosphatase 112 U/L (46-116) 06/10/18 06:25 Troponin I < 0.02 ng/mL (0.00-0.06) 06/09/18 10:30 Total Protein 5.8 g/dL (6.4-8.2) L 06/10/18 06:25 Albumin 2.7 g/dL (3.4-5.0) L 06/10/18 06:25 Lipase 836 U/L (73-393) H 06/09/18 10:30 Urine Color Yellow (Yellow) 06/09/18 21:35 Urine Clarity Clear 06/09/18 21:35 Urine pH 7.0 (5-8) 06/09/18 21:35 Ur Specific [place] 1.015 (1.005-1.025) 06/09/18 21:35 Urine Protein Negative mg/dL (Negative) 06/09/18 21:35 Urine Ketones 40 mg/dL (Negative) H 06/09/18 21:35 Urine Blood Negative (Negative) 06/09/18 21:35 Urine Nitrite Negative (Negative) 06/09/18 21:35 Urine Bilirubin Negative (Negative) 06/09/18 21:35 Urine Urobilinogen 0.2 EU/dL (Up TO 0.2) 06/09/18 21:35 Ur Leukocyte Esterase Negative (Negative) 06/09/18 21:35 Urine Glucose Negative mg/dL (Negative) 06/09/18 21:35
[2018-06-10] MEDS: Ondansetron 4 MG/2 ML VIAL IVP ×2 (12:44→20:01)
--- NOTE | 2018-06-10 12:58 | PDOC.CMIN ---
- If Service Date Differs Date of service: 06/10/18 Time of Service: 13:21 Care Management Initial Assess REASON FOR HOSPITALIZATION:: Melena PAST MEDICAL HISTORY/PAST SURGICAL HISTORY:: COPD (chronic obstructive pulmonary disease) (Chronic). Adjustment disorder with anxiety (Acute). Dyspepsia (Acute). Malignant neoplasm of right lung (Acute). Tubular adenoma of colon (Acute). Alcohol abuse (Chronic). Anxiety (Chronic). History of lung biopsy (Resolved). History of surgery on upper extremity (Resolved). colonoscopy (01/19/15) PREVIOUS FUNCTIONAL STATUS/SOCIAL/FAMILY SUPPORTS:: Iggy resides with his parents Vee and Og in [facility]. He is independent at baseline. Iggy states that he does not drive and his mom assists him with appointments and obtaining food. Iggy is able to manage ADL's at baseline. CURRENT FUNCTIONAL STATUS:: Currently Iggy is lying in bed when this typewriter aligner visits. He is pleasant and open to discussion. ADVANCE DIRECTIVES:: On file - Vee Urias is agent. Haresh Urias is alternate Has patient been provided with information about the portal?: Yes Did the patient sign up for the portal?: No CODE STATUS:: Full Code INSURANCE COVERAGE / FINANCIAL ISSUES:: Medicaid CURRENT HOME/COMMUNITY SERVICES/EQUIPMENT:: Currently Iggy has no medical equipment in the community. He states that he sees Brando Dobson for therapy weekly and has been doing so for about a month. Iggy also states that he has been to multiple AA meetings in the past, however has not been to any recently. PRIMARY CARE PHYSICIAN:: Dr. Chow POTENTIAL DISCHARGE NEEDS:: F/U appointment with PCP PATIENT/FAMILY EDUCATION NEEDS:: Review DC instructions, any limitations, and ongoing DC planning discussion. Discuss 'Ask Me Three' ANTICIPATED BARRIERS TO DISCHARGE:: None identified at this time. TRANSPORTATION:: Via private vehicle with parents. PLAN:: Iggy will return home with no anticipated services. He will F/U with PCP and plan of care as prescribed. Nash parents to transport when ready.
--- NOTE | 2018-06-10 15:10 | W.SURGCON ---
Date of service: 06/10/18 Time of Service: 15:10 Assessment and Plan (1) Epigastric pain: Current visit: Yes Status: Acute 63 y/o male with h/o ETOH abuse and chronic intermittent epigastric pain. Elevated lipase on admission without CT findings of pancreatitis. Patient may have some underlying chronic pancreatitis secondary to ETOH. Elevated lipase could also be reactive to gastritis or PUD. Recheck lipase in am. Started bland full liquid diet but patient noted increased epigastric pain with Ensure. Will decrease po to clears. Add Toradol prn pain. Agree with ranitidine, Protonix, and Carafate. (2) Melena: Current visit: Yes Status: Acute 63 y/o male with reported history of melena. No further BM yet on this admission to check hemoccult. No signs of active bleeding as he has not had any BM and his H/H is stable. Mild drop likely due to IVF hydration. Recommend EGD to evaluate epigastric pain and melena for possible gastritis or PUD. Does not need to be done urgently today. May be done during this admission or as an outpatient. Discussed above with patient. All questions answered. He is agreeable with plans as outlined above. Also discussed with Dr. Hopper. History of Present Illness Chief Complaint: Epigastric pain, reported melena Narrative: 63 y/o male admitted through the ED yesterday with c/o epigastric pain and reported black, tarry stools. Patient had also c/o feeling faint at home prior to admission. He notes chronic, intermittent epigastric pain for the past year or so. He denies any known history of ulcers or gastritis. He is on ranitidine at home. He has been started on Protonix and Carafate here in the hospital. He denies any recent NSAID use. He denies nausea or vomiting. Last BM was yesterday in the ED. Hemoccult reportedly was not checked. He has had no further BM on this admission. He has never had an EGD. He reportedly had a colonoscopy 5 years ago which revealed some polyps. H/H stable at 12.3/36.7 today. H/H was 13.7/40.3 on admission. Lipase - 800s on admission. He admits to daily ETOH use. CIWA precautions in place. Consults Consult date: 06/10/18 Requesting physician: Natali Hopper Review of Systems Review of Systems All systems reviewed & are unremarkable except as noted in HPI and below Constitutional Denies chills and Denies fever(s) Cardiovascular Denies chest pain, Denies rapid heart rate and Reports dyspnea on exertion Respiratory Denies cough and Reports dyspnea on exertion Gastrointestinal Reports abdominal pain, Reports melena, Denies constipation and Denies diarrhea PFSH Medical History COPD (chronic obstructive pulmonary disease) (Chronic) Adjustment disorder with anxiety (Acute) Dyspepsia (Acute) Malignant neoplasm of right lung (Acute) Tubular adenoma of colon (Acute) Alcohol abuse (Chronic) Anxiety (Chronic) Surgical History History of lung biopsy (Resolved) History of surgery on upper extremity (Resolved) colonoscopy (01/19/15) Family History Father Essential hypertension Hyperlipidemia Paternal Uncle Heart disease Stroke Cerebral hemorrhage Hypertension Brother Cancer Social History adopted: No foster care: No household members: family housing: house lives independently: Yes current occupation: not working Smoking/Tobacco Use Status: Former Tobacco Use alcohol intake: current alcohol intake frequency: 3 or more drinks per day Alcohol type: beer and wine substance use type: does not use seatbelt use: always drive intox or ride w/ intox street flusher driver: No water heater temp set < 120 deg: Yes working smoke detector in home: Yes fire extinguisher in home: Yes carbon monox detector in home: Yes firearms in home: Yes Exam Const General: cooperative, comfortable and no acute distress Orientation: alert and oriented x3 HENMT Head: normocephalic and atraumatic Eyes Sclera: sclerae normal Resp Effort & Inspection: normal respiratory effort and able to speak in complete sentences Cardio Jugular venous pressure: no JVD Rate: regular rate Rhythm: regular rhythm GI Inspection: non-distended Palpation: soft, not firm, no guarding, no masses, not rigid and tender in the epigastrum (mildly tender to palpation) Auscultation: normal bowel sounds Results Last Vital Signs Temp 36.7 C 06/10/18 12:18 Pulse 75 06/10/18 12:18 Resp 18 06/10/18 12:18 BP 144/81 H 06/10/18 12:18 Pulse Ox 98 06/10/18 12:18 Labs : 06/10/18 06:25 06/10/18 06:25 Laboratory Results - last 24 hr 06/09/18 06/09/18 06/10/18 10:30 21:35 06:25 WBC RBC Hgb Hct MCV MCH MCHC RDW Plt Count MPV Immature Gran % Neutrophils % Lymphocytes % Monocytes % Eosinophils % Basophils % Absolute Neutrophils Absolute Lymphocytes Absolute Monocytes Absolute Eosinophils Absolute Basophils PT INR Sodium 137 139 Potassium 3.7 4.0 Chloride 98 103 Carbon Dioxide 27.3 25.3 Anion Gap 11.7 H 10.7 BUN 8 10 Creatinine 0.80 0.88 Estimated GFR/1.73 m2 >= 60.00 >= 60.00 Glucose 94 59 L Calcium 8.2 L 7.4 L Magnesium 2.1 Total Bilirubin 0.8 1.5 H Conjugated Bilirubin 0.47 H AST 257 H 161 H ALT 161 H 119 H Alkaline Phosphatase 137 H 112 Troponin I < 0.02 Total Protein 7.3 5.8 L Albumin 3.5 2.7 L Urine Color Yellow Urine Clarity Clear Urine pH 7.0 Ur Specific Eastman 1.015 Urine Protein Negative Urine Ketones 40 H Urine Blood Negative Urine Nitrite Negative Urine Bilirubin Negative Urine Urobilinogen 0.2 Ur Leukocyte Esterase Negative Urine Glucose Negative 06/10/18 06/10/18 06:25 06:25 WBC 3.71 L RBC 3.62 L Hgb 12.3 L Hct 36.7 L MCV 101.4 H MCH 34.0 H MCHC 33.5 RDW 11.3 L Plt Count 131 MPV 9.8 Immature Gran % 0.5 Neutrophils % 72.8 Lymphocytes % 12.7 Monocytes % 12.9 Eosinophils % 0.8 Basophils % 0.3 Absolute Neutrophils 2.70 Absolute Lymphocytes 0.47 L Absolute Monocytes 0.48 Absolute Eosinophils 0.03 Absolute Basophils 0.01 PT 9.5 INR 1.0 Sodium Potassium Chloride Carbon Dioxide Anion Gap BUN Creatinine Estimated GFR/1.73 m2 Glucose Calcium Magnesium Total Bilirubin Conjugated Bilirubin AST ALT Alkaline Phosphatase Troponin I Total Protein Albumin Urine Color Urine Clarity Urine pH Ur Specific Eastman Urine Protein Urine Ketones Urine Blood Urine Nitrite Urine Bilirubin Urine Urobilinogen Ur Leukocyte Esterase Urine Glucose Imaging Abdomen CT scan report/results: report reviewed and image reviewed CT scan - pelvis: report reviewed and image reviewed Imaging Studies: Patient Name: Cordell HENRIQUEZ #: [id number]: ER Ordering Provider: : [facility] Primary Care Provider: Deborah Chow M.D.Date of Exam: 06/09/18Sex: M : 4Age: 63 Exam(s) EXAM: CT Abdomen and Pelvis With Contrast EXAM DATE/TIME: 06/09/2018 10:27 AM CLINICAL HISTORY: 63 years old, male; Pain; Abdominal pain; Generalized; Additional info: Mid abd pain, radiating bandlike, tender. TECHNIQUE: Axial computed tomography images of the abdomen and pelvis with intravenous contrast. All CT scans at this facility use at least one of these dose optimization techniques: automated exposure control; mA and/or kV adjustment per patient size (includes targeted exams where dose is matched to clinical indication); or iterative reconstruction. Coronal and sagittal reformatted images were created and reviewed. CONTRAST: 93 ml of omnipaque 350 administered intravenously. COMPARISON: CT ABD PELVIS WITH CONTRAST 01/03/2018 5:43 AM FINDINGS: Lower thorax: No acute findings. ABDOMEN: Liver: Fatty liver. Gallbladder and bile ducts: Normal. No calcified stones. No ductal dilation. Pancreas: Normal. No ductal dilation. Spleen: Normal. No splenomegaly. Adrenals: Normal. No mass. Kidneys and ureters: Normal. No hydronephrosis. Stomach and bowel: Normal. No obstruction. No mucosal thickening. Appendix: No evidence of appendicitis. PELVIS: Bladder: Allowing for degree of distention there is some mild thickening and irregularity to the bladder wall. Reproductive: Unremarkable as visualized. ABDOMEN and PELVIS: Intraperitoneal space: Normal. No free air. No significant fluid collection. Bones/joints: Moderate lumbar spondylosis. Moderate lumbar spondylosis. Soft tissues: Small, fat-containing left inguinal hernia. Vasculature: Normal. No abdominal aortic aneurysm. Lymph nodes: Normal. No enlarged lymph nodes. IMPRESSION: 1. No definite acute abnormality seen to account for symptoms. 2. There may be mild slightly irregular bladder wall thickening. Consider cystitis. Early infiltrative process not excludable. COMMENT: Preliminary interpretation is based on receipt of 303 image(s). A final report will be issued subsequently. Dictated and Authenticated by: Ekaterina Reyes MD. Ordering:CRISTOPHER Zarate MD Ordered By: CC: Dictated By: Jonas vrad 06/09/18 1027 06/09/18 1302 Transcribed By: Raiza Lomeli This is privileged, confidential information intended only for the provider named. Any use or distribution by any person other than this provider is strictly prohibited. If you receive this report in error, please notify us immediately at [phone] and return the original report to us at the address above. Thank-you.
[2018-06-10] MEDS: Nicotine 21 MG/24 HR PATCH TD (15:46)
[2018-06-10] MEDS: Ketorolac 30 MG/ML VIAL IVP (15:57)
[2018-06-10] MEDS: LORazepam 1 MG TAB PO/SL ×2 (16:07→19:59)
[2018-06-10] MEDS: DEXTROSE 5%-0.9% SALINE 1,000 ML 150 ML IV (17:48)
[2018-06-10] MEDS: Milk of Magnesia 30 ML CUP PO (22:18)
[2018-06-11] VITALS (42 sets, daily range): BP systolic 137–165; BP diastolic 78–101; PULSE 73–99; RESP 15–31; TEMP 36.3–37.2; O2SAT 90–95
[2018-06-11] MEDS: Ketorolac 30 MG/ML VIAL IVP ×3 (00:09→20:43)
[2018-06-11] MEDS: Normal Saline Flush 10 ML SYR IVP ×3 (00:16→20:42)
[2018-06-11] MEDS: DEXTROSE 5%-0.9% SALINE 1,000 ML 150 ML IV ×2 (00:35→08:53)
[2018-06-11] MEDS: Sucralfate 1 GM TAB PO ×3 (05:10→20:42)
[2018-06-11 06:21] LABS: Abs Immature Grans 0.03 k/cumm (0.0-0.09); Absolute Basophil Count 0.01 k/cumm (0.0-0.2); Absolute Eosinophil Count 0.01 k/cumm (0.0-0.7); Absolute Monocyte Count 0.57 k/cumm (0.11-0.7); Basophils % 0.2; Eosinophils % 0.2; HCT 40.1 % (40.0-50.0); Immature Grans % 0.5; Lymphocytes % 4.6; Mean Corp. HGB Concentration 34.9 g/dL (32.0-36.0); Mean Corpuscular Hemoglobin 34.7 pg (27.0-33.0); Mean Corpuscular Volume 99.3 fL (80-95); Mean Platelet Volume 9.5 fL (8.0-11.0); Monocytes % 8.8; Neutrophils % 85.7; Platelet Count 124 x1000/uL (130-400); RBC 4.04 m/cumm (4.50-6.00); RBC Distribution Width 11.2 % (11.8-14.1); White Blood Cell Count 6.51 k/cumm (4.4-10.8)
[2018-06-11 06:22] LABS: Absolute Neutrophil Count 5.58 k/cumm (1.2-6.7)
[2018-06-11 06:35] LABS: ALT 103 U/L (12-78); AST 138 U/L (15-37); Albumin 2.7 g/dL (3.4-5.0); Alkaline Phosphatase 118 U/L (46-116); Anion Gap 8.3 mmol/L (3-11); BUN 7 mg/dL (7-18); Bilirubin, Direct 0.51 mg/dL (0.00-0.20); Bilirubin, Total 1.3 mg/dL (0.2-1.0); CO2 26.7 mmol/L (21.0-32.0); Calcium 7.4 mg/dL (8.5-10.1); Chloride 101 mmol/L (98-107); Glucose 236 mg/dL (70-100); Magnesium 2.1 mg/dL (1.8-2.4); Potassium 3.4 mmol/L (3.5-5.1); Sodium 136 mmol/L (136-145); Total Protein 6.2 g/dL (6.4-8.2)
[2018-06-11 06:43] LABS: Lipase 12102 U/L (73-393)
--- NOTE | 2018-06-11 07:15 | DI.RAD_ITS ---
SYMPTOMS/DIAGNOSIS: ABDOMINAL PAIN FLAT AND UPRIGHT ABDOMEN: The visualized lung bases are clear. There are mildly dilated loops of small bowel present. This may represent an ileus. There is a dilated loop of bowel in the right lower quadrant with air-fluid levels. Obstruction cannot be excluded. Air is seen within the distal colon. No pneumoperitoneum or organomegaly is seen. Degenerative changes are seen in the spine. IMPRESSION: Mildly dilated loops of bowel, particularly in the right lower quadrant. Partial obstruction cannot be excluded. Alternatively, this may represent an ileus. Followup is recommended. This may include serial KUB or CT scan of the abdomen and pelvis.
[2018-06-11] MEDS: Pantoprazole 40 MG VIAL IVP ×2 (08:34→20:41)
[2018-06-11] MEDS: LORazepam 1 MG TAB PO/SL ×2 (08:35→20:42)
--- NOTE | 2018-06-11 09:00 | DI.US_ITS ---
SYMPTOMS/DIAGNOSIS: NEAR-SYNCOPAL EPISODE, PANCREATITIS, ALCOHOLISM CAROTID ULTRASOUND: Routine examination. No hemodynamically significant velocity elevations are present. The vertebral arteries are antegrade. No significant calcific plaque is identified. IMPRESSION: No evidence of hemodynamically significant cervical carotid artery stenosis.
--- NOTE | 2018-06-11 09:37 | PHARADMIT ---
Addendum entered by Wilfredo Manuel III 06/29/18 16:23: Patient had uneventful MPI stress test today. Plan is for him to be discharged later today. Original Note: Addendum entered by Wilfredo Manuel III 06/28/18 15:58: Pharmacy Note Subjective Patient experienced chest pain overnight, relieved by NTG x 2. Troponins OK. MD would like a stress test in the morning. Placed on tele. Objective VS-OK BP-139/89 HR-91 K+3.5 H&H-steady, Assessment Fluconazole swish & spit continues Plan Lexiscan MPI scheduled. Original Note: Addendum entered by Jennifer Chau 06/26/18 17:21: Pharmacy Note Subjective nursing reported pt had red pustul Objective BP-161/93 other VS okay Assessment vanco and zosyn discontinued today fluconazole oral suspension ordered to swish and spit for thrush protonix changed from IV to PO Plan continue to watch VS, labs and for med changes Original Note: Addendum entered by Wilfredo Manuel III 06/22/18 17:11: Pharmacy Note Subjective Diet has been advanced, tolerated full ,liquids, TPN dc'd. Objective VS-OK CIWA-3 Pain: 10/10 K+3.5 WBC-14.10 H&H,Plts,SCr-OK. Having BMs Assessment Vancomycin day#4 & Zosyn day#6 continue. Vanco trough 21.4, dose adjusted. Plan MD wants to complete full 7 day course of each ABX Original Note: Addendum entered by Edith Vallejo 06/20/18 14:40: Pharmacy Note Subjective per MD pancreatitis should be over as well as alcohol withdrawal Objective bp 146/83 HR 96, Ciwa 0, pain 0, Assessment vancomycin and pip/tazo continue, TPN continues (day 5), neostigmine x 1 ordered for bowel decompression, most PO meds on hold due to pt not able to take PO, tolerating clears Plan evaluate vanco trough at 1700 Original Note: Addendum entered by Jennifer Chau 06/19/18 15:07: Pharmacy Note Subjective Objective BP-138/91 HR-95 Tmax-38.2 overnight K+3.2 WBC-15.55(down) Assessment TPN continues (day 4), clinimix changed from 5/15 to 4.25/10 today zosyn(day3) and vanco(day1) for pneumonia (possible aspiration?) still scoring on CIWA at times reglan ordered TID for ileus gabapentin taper and oxazepam for withdrawal along with PRN lorazepam Plan vanco trough ordered for 1700 tomorrow, adjust dose as necessary watch electrolytes, has been requiring additional doses of K+ on top of those in the TPN Original Note: Addendum entered by Edith Vallejo 06/15/18 13:08: Pharmacy Note Subjective pt transferred from [place] to ICU, pulled NG out twice overnight, ? delerium, ? alcohol detox, Objective K 3.4, CIWA 9, bp 143/91(MDA) Assessment KCL Iv bolus ordered, banana bag continues, fluconazole IV, lorazepam for CIWA, nutrition consult done for possible TPN, decompression colonoscopy today Plan TPN may start if PO not tolerated soon, Original Note: Addendum entered by Wilfredo Manuel III 06/14/18 14:46: Pharmacy Note Subjective Still complains of nausea and abdominal pain. Objective VS-OK pain: 02/12 CIWA-4 K+3.3 H&H, Plts,WBC,SCr-OK Wgt up 67.2 Kg No BM Assessment Rec'd K+20mEq IV, Banana bag cont. Plan Improving Lipase Original Note: Addendum entered by Wilfredo Manuel III 06/13/18 14:10: Pharmacy Note Subjective Patient continues to score on cIWA scale- (11-13) and is not eating. No evidence of cholelitisis, has acute pancreatitis (alcohol induced) but no infection or necrosis. Objective VS-OK pain: 01/12 Labs-WNL No BM Assessment Banana Bag continues. No med changes. Plan Awaiting CIWA to wane and appetite to return Original Note: Admission Pharmacy Clinical Review pancreatitis, alcoholism Code Status Full Code Current Weight 65.1 kg Renally Cleared and Narrow Therapeutic Index Meds Crcl ~76.00 mL/min current meds okay QTc Value / Action Taken QTc 442 BP Control, Fever BP 149/79 afebrile Electrolytes reviewed K+ 3.4 DVT Prophylaxis SCDs/TEDs- suspected GI bleed Opiate Usage / Scheduled Bowel Regimen Ordered prn/prn Plt/SCr for Heparin / Enoxaparin plt 124 SCr 0.90 INR for Warfarin n/a H/H stable, WBC/Bands h/h 14.0/40.1 wbc 6.51 Antibiotic appropriateness none Cultures and Sensitivities urine culture: gram+ molly/possible contaminant Surgical ABX d/c within 24 hr n/a DM control / Insulin Dosing BG 236 none Heart Failure (Check EF%) (ALBERTO's, B-Block, Diuretics) none IV to PO Switch n/a Home Meds Reviewed -cetirizine may enhance the anticholinergic effect of tiotropium, monitor for anticholinergic-related toxicity Home Meds Not Ordered azithromycin (was ordered then discontinued) Comments abdominal xray this morning lipase 68788(up) ECHO tomorrow
--- NOTE | 2018-06-11 09:50 | PDOC.CMPRO ---
- If Service Date Differs Date of service: 06/11/18 Time of Service: 09:50 Care Management Progress Note S/O: Iggy is lying in bed when this mortgage underwriter visits this morning. His mom and sister are in the room and all are pleasant and receptive to discussion. Iggy states that he isn't feeling well and that he did not rest well last evening. Iggy states that the physician has been in to see him today and that he will have an NG tube placed. A: 63 y/o male admitted 06/09/18 for Pancreatitis, Alcoholism P: Iggy will return home with no anticipated services. He will F/U with PCP and plan of care as prescribed. Iggy will also F/U with RUPERTO Saravia, whom sees him in the community. Iggy's mom Vee to transport when ready.
--- NOTE | 2018-06-11 10:03 | CMPROGNOTE_ITS ---
- If Service Date Differs Date of service: 06/11/18 Time of Service: 09:50 Care Management Progress Note S/O: Iggy is lying in bed when this freelance writer visits this morning. His mom and sister are in the room and all are pleasant and receptive to discussion. Iggy states that he isn't feeling well and that he did not rest well last evening. Iggy states that the physician has been in to see him today and that he will have an NG tube placed. A: 63 y/o male admitted 06/09/18 for Pancreatitis, Alcoholism P: Iggy will return home with no anticipated services. He will F/U with PCP and plan of care as prescribed. Iggy will also F/U with RUPERTO Saravia, whom sees him in the community. Iggy's mom Vee to transport when ready.
--- NOTE | 2018-06-11 14:44 | DI.CT_ITS ---
SYMPTOMS/DIAGNOSIS: F/U PANCREATITIS, ALCOHOLISM, ? SMALL BOWEL OBSTRUCTION CT SCAN OF THE ABDOMEN AND PELVIS: CT scan of the abdomen and pelvis was performed following the uneventful administration of intravenous contrast material. Comparison examination is 06/09/18. There are small bilateral pleural effusions with dependent infiltrative changes. These may represent atelectasis or pneumonia. There is diffuse decreased attenuation of the liver consistent with fatty infiltration. No discrete hepatic mass is seen. The portal and superior mesenteric veins are patent. The gallbladder is negative. No biliary ductal dilatation is seen. The pancreas is mildly heterogeneous in its head without discrete mass. There are peripancreatic inflammatory changes noted. No focal fluid collection is seen to suggest abscess or phlegmon. The spleen is unremarkable except for a few calcified granuloma. No adrenal masses are seen. The kidneys are unremarkable. The urinary bladder is distended but otherwise unremarkable. The reproductive organs are grossly unremarkable. Mild to moderate gaseous distention of the colon is noted including the cecum. Volvulus cannot be entirely excluded. No findings to suggest an acute appendicitis are present. There is a small amount of abdominal and pelvic ascites. Degenerative changes are seen in the spine. No pneumoperitoneum is seen. There is a small fat-containing left inguinal hernia. No significant abdominal or pelvic adenopathy is present. IMPRESSION: 1. Interval development of colonic distention without definite evidence for mechanical obstruction. No perforation is seen. Follow-up examination is recommended. Serial KUBs are suggested. 2. Interval development of bilateral pleural effusions with subjacent infiltrates, which may represent atelectasis or pneumonia. 3. Inflammatory changes seen around the pancreas raising the question of acute pancreatitis.
[2018-06-11] MEDS: Omnipaque 350 MG/ML 100 ML BTL IJ (15:02)
--- NOTE | 2018-06-11 16:36 | W.PM.PROGNOT ---
Date of Service Date of service: 06/11/18 Time of Service: 16:10 Assessment and Plan (1) Pancreatitis, acute: Current visit: Yes Status: Acute A\\ Acute Pancreatitis. CT scan yesterday did not show any inflammation or necrosis. This am Lipase jumped to >11,000 and patient had increased pain Abdo Xray- ileus. No free air CT scan done- to my read there is fluid around the pancreas. I do not see any necrosis. Gallbladder still negative per CT criteria P\\ Await review of CT scan NPO status Continue to watch for worsening pancreatitis or fevers and chills. Consider US of the Gallbladder to make sure there isn't some sludge or small stones. Plan discussed with Dr. Mejia and the patient Qualifiers: Pancreatitis type: unspecified pancreatitis type Acute pancreatitis complication: no infection or necrosis Qualified Code(s): K85.90 - Acute pancreatitis without necrosis or infection, unspecified (2) Melena: Current visit: Yes Status: Acute A\\ NO BM since admission and Hgb/Hct have been stable P\\ Has a history of alcohol abuse and most likely has Gastritis. Patient is appropriately being treated with PPI and Carafate. Hold po Zantac for now Will continue to monitor Hgb/HCT May need EGD but would wait until his pancreatitis has resolved. Unless he looks like he is actively bleeding then would do as an outpatient. (3) Epigastric pain: Current visit: Yes Status: Acute A\\ most likely multifactorial due to gastritis and pancreatitis secondary to alcohol abuse P\\ Continue with PPI and Carafate
[2018-06-11] MEDS: POTASSIUM CHLORIDE/0.9% NACL 1,000 ML 150 MEQ IV ×2 (16:49→23:07)
--- NOTE | 2018-06-11 18:21 | DI.VRAD_ITS ---
Addendum created by Xavier Graves MD on 06/11/2018 6:24:07 PM EST The A. And in changes at L4-L5 level. Should state: most prominent degenerative changes at L4-L5 level. Initial report created on 06/11/2018 6:21:20 PM EST EXAM: CT Abdomen and Pelvis With Contrast EXAM DATE/TIME: 06/11/2018 2:54 PM CLINICAL HISTORY: 63 years old, male; Condition or disease; Pancreatic condition; Pancreatitis; Patient HX: F/u pancreatitis; Additional info: ? Sbo TECHNIQUE: Axial computed tomography images of the abdomen and pelvis with intravenous contrast. Coronal and sagittal reformatted images were created and reviewed. COMPARISON: CT ABDOMEN PELVIS W 06/09/2018 12:21 PM FINDINGS: Lower thorax: Small bilateral pleural effusions. Nonspecific bilateral dependent pleuroparenchymal changes in the lungs. ABDOMEN: Liver: Unremarkable. No mass. Gallbladder and bile ducts: Gallbladder is distended, otherwise, unremarkable. Pancreas: Peripancreatic stranding/fluid, fluid within anterior pararenal space. Spleen: Punctate splenic calcifications, likely granuloma. Adrenals: Unremarkable. No mass. Kidneys and ureters: Unremarkable. No hydronephrosis. Stomach and bowel: Mild gaseous distention of the colon, distended cecum, no obstructing lesions identified. Colonic volvulus is not likely, however, cannot be entirely ruled out. Appendix: No evidence of appendicitis. PELVIS: Bladder: Urinary bladder is distended, otherwise, unremarkable. Reproductive: Unremarkable as visualized. ABDOMEN and PELVIS: Intraperitoneal space: Small amount of pelvic ascites. The A. And in changes at L4-L5 level. Bones/joints: Degenerative changes within thoracic and lumbar spine. Soft tissues: Small fat containing left inguinal hernia. Vasculature: Bilateral pelvic phleboliths. Scattered atherosclerotic calcifications within abdominal aorta and branches. Bilateral pelvic phleboliths. Lymph nodes: No enlarged lymph nodes. IMPRESSION: 1. Interval development of bilateral pleural effusions. Interval development of fluid within anterior pararenal space, no walled off collections identified. No areas of pancreatic necrosis identified. No vascular complications demonstrated. Patent portal vein, patent SMV and splenic vein. 2. Interval development of colonic dilatation, filled with gas and fluid, no definite evidence for mechanical bowel obstruction, no perforation. Dictated and Authenticated by: Xavier Graves MD. Ordering:KIM Hurst MD
--- NOTE | 2018-06-11 19:01 | W.PM.PROGNOT ---
Date of Service Date of service: 06/11/18 Time of Service: 19:02 Assessment and Plan (1) Ileus: Current visit: Yes Status: Acute Likely due to pancreatitis. Made NPO. Will monitor clinical course. Appreciate surgical help. No evidence of obstruction on CT. (2) Pancreatitis, acute: Current visit: Yes Status: Acute Likely alcoholic, but we are ruling out gallstone etiology - for US RUQ tomorrow. Continue IVF. Pleural effusions are likely due to pancreatitis Qualifiers: Pancreatitis type: unspecified pancreatitis type Acute pancreatitis complication: no infection or necrosis Qualified Code(s): K85.90 - Acute pancreatitis without necrosis or infection, unspecified (3) Melena: Current visit: Yes Status: Acute Continue IV PPI BID, carafate; Continue NPO status. (4) Epigastric pain: Current visit: Yes Status: Acute Likely due to acute pancreatitis, but possibly due to gastritis, ?ulcer. Morphine dose titrated (5) Near syncope: Current visit: Yes Status: Acute Is orthostatic. Continue IVF. keep on tele, US carotid negative. Await echo. If negative, could d/c tele. (6) Alcohol abuse: Current visit: No Status: Acute Continue CIWA; has prn ativan. Continue banana bag. (7) Chronic obstructive pulmonary disease: Current visit: No Status: Chronic At baseline. Finished azithromycin (8) DVT prophylaxis: Current visit: Yes Status: Acute SCD's + TEDs due to suspected GI bleed (9) Discharge planning issues: Current visit: Yes Status: Acute Full code Subjective Interval history since last seen: Mr Urias feels very distended in his abdomen today, and his abdominal pain is harder to control today. He states he has had no flatus. Denies dizziness, chest pain, shortness of breath. Exam Narrative Exam Narrative: General: Middle aged male, laying in bed, abdomen significantly more distended, very minimal bowel sounds heard HEENT: EOMI, MMM Cardiovascular: RRR, no m/r/g Lungs: Diminished, clear to auscultation B Gastrointestinal: abdomen very distended, nontender on palpation (patient medicated), minimal bowel sounds heard Extremities: no edema, clubbing, or cyanosis, 1+ pedal pulses B. Objective Objective Clinical Data: Abnormal lab results 06/11/18 06/11/18 Range/Units 06:05 06:05 RBC 4.04 L (4.50-6.00) m/cumm MCV 99.3 H (80-95) fL MCH 34.7 H (27.0-33.0) pg RDW 11.2 L (11.8-14.1) % Plt Count 124 L (130-400) x1000/uL Absolute Lymphocytes 0.30 L (1.2-3.4) k/cumm Potassium 3.4 L (3.5-5.1) mmol/L Glucose 236 H D (70-100) mg/dL Calcium 7.4 L (8.5-10.1) mg/dL Total Bilirubin 1.3 H (0.2-1.0) mg/dL Conjugated Bilirubin 0.51 H (0.00-0.20) mg/dL AST 138 H (15-37) U/L ALT 103 H (12-78) U/L Alkaline Phosphatase 118 H (46-116) U/L Total Protein 6.2 L (6.4-8.2) g/dL Albumin 2.7 L (3.4-5.0) g/dL Lipase 26010 H (73-393) U/L Vital Signs Temperature 37.2 C 06/11/18 12:00 Temperature Source Temporal Artery Scan 06/11/18 12:00 Pulse 80 06/11/18 14:01 Pulse Rhythm Regular 06/11/18 15:15 Pulse 83 06/11/18 15:00 Respiratory Rate 18 06/11/18 15:00 Respiratory Effort 06/11/18 15:15 Respiratory Depth Normal 06/11/18 15:15 Respiratory Pattern Normal 06/11/18 15:15 Blood Pressure 165/97 H 06/11/18 14:01 Blood Pressure Mean 112 06/11/18 14:01 Blood Pressure Position Supine 06/10/18 10:06 Pulse Oximetry 94 L 06/11/18 12:05 Oxygen Delivery Method Room Air 06/11/18 12:00 Oxygen Flow Rate 0 06/11/18 12:00 Pain Level 8 06/11/18 18:30 Comment 06/11/18 12:00 Intake & Output 06/10/18 06/11/18 06/11/18 23:59 11:59 23:59 Intake Total 1571.2 / 4961.2 2025 / 2927.5 902.5 / 2927.5 Output Total 1200 / 2646 300 / 300 Balance 371.2 / 2315.2 1725 / 2627.5 902.5 / 2627.5 Weight 65.1 kg Intake: IV 1021.2 / 4411.2 2024 / 7.5 902.5 / 2927.5 Oral 550 / 550 Output: Urine 1200 / 2475 300 / 300 Other: Urine Color Yellow Dark Minna Urine Appearance Cloudy Clear Clear Urine Odor None Strong Voiding Methods Urinal Bedside Commode Laboratory Results WBC 6.51 k/cumm (4.4-10.8) D 06/11/18 06:05 RBC 4.04 m/cumm (4.50-6.00) L 06/11/18 06:05 Hgb 14.0 g/dL (13.5-17.5) 06/11/18 06:05 Hct 40.1 % (40.0-50.0) 06/11/18 06:05 MCV 99.3 fL (80-95) H 06/11/18 06:05 MCH 34.7 pg (27.0-33.0) H 06/11/18 06:05 MCHC 34.9 g/dL (32.0-36.0) 06/11/18 06:05 RDW 11.2 % (11.8-14.1) L 06/11/18 06:05 Plt Count 124 x1000/uL (130-400) L 06/11/18 06:05 MPV 9.5 fL (8.0-11.0) 06/11/18 06:05 Immature Gran % 0.5 06/11/18 06:05 Neutrophils % 85.7 06/11/18 06:05 Lymphocytes % 4.6 06/11/18 06:05 Monocytes % 8.8 06/11/18 06:05 Eosinophils % 0.2 06/11/18 06:05 Basophils % 0.2 06/11/18 06:05 Absolute Neutrophils 5.58 k/cumm (1.2-6.7) 06/11/18 06:05 Absolute Lymphocytes 0.30 k/cumm (1.2-3.4) L 06/11/18 06:05 Absolute Monocytes 0.57 k/cumm (0.11-0.7) 06/11/18 06:05 Absolute Eosinophils 0.01 k/cumm (0.0-0.7) 06/11/18 06:05 Absolute Basophils 0.01 k/cumm (0.0-0.2) 06/11/18 06:05 PT 9.5 sec (9.3-11.0) 06/10/18 06:25 INR 1.0 (0.9-1.1) 06/10/18 06:25 Sodium 136 mmol/L (136-145) 06/11/18 06:05 Potassium 3.4 mmol/L (3.5-5.1) L 06/11/18 06:05 Chloride 101 mmol/L (98-107) 06/11/18 06:05 Carbon Dioxide 26.7 mmol/L (21.0-32.0) 06/11/18 06:05 Anion Gap 8.3 mmol/L (3-11) 06/11/18 06:05 BUN 7 mg/dL (7-18) 06/11/18 06:05 Creatinine 0.90 mg/dL (0.70-1.30) 06/11/18 06:05 Estimated GFR/1.73 m2 >= 60.00 (mL/min/1.73m2) 06/11/18 06:05 Glucose 236 mg/dL (70-100) H D 06/11/18 06:05 Calcium 7.4 mg/dL (8.5-10.1) L 06/11/18 06:05 Magnesium 2.1 mg/dL (1.8-2.4) 06/11/18 06:05 Total Bilirubin 1.3 mg/dL (0.2-1.0) H 06/11/18 06:05 Conjugated Bilirubin 0.51 mg/dL (0.00-0.20) H 06/11/18 06:05 AST 138 U/L (15-37) H 06/11/18 06:05 ALT 103 U/L (12-78) H 06/11/18 06:05 Alkaline Phosphatase 118 U/L (46-116) H 06/11/18 06:05 Troponin I < 0.02 ng/mL (0.00-0.06) 06/09/18 10:30 Total Protein 6.2 g/dL (6.4-8.2) L 06/11/18 06:05 Albumin 2.7 g/dL (3.4-5.0) L 06/11/18 06:05 Lipase 75441 U/L (73-393) H 06/11/18 06:05 Urine Color Yellow (Yellow) 06/09/18 21:35 Urine Clarity Clear 06/09/18 21:35 Urine pH 7.0 (5-8) 06/09/18 21:35 Ur Specific [place] 1.015 (1.005-1.025) 06/09/18 21:35 Urine Protein Negative mg/dL (Negative) 06/09/18 21:35 Urine Ketones 40 mg/dL (Negative) H 06/09/18 21:35 Urine Blood Negative (Negative) 06/09/18 21:35 Urine Nitrite Negative (Negative) 06/09/18 21:35 Urine Bilirubin Negative (Negative) 06/09/18 21:35 Urine Urobilinogen 0.2 EU/dL (Up TO 0.2) 06/09/18 21:35 Ur Leukocyte Esterase Negative (Negative) 06/09/18 21:35 Urine Glucose Negative mg/dL (Negative) 06/09/18 21:35 CT abdomen/pelvis: 1. Interval development of bilateral pleural effusions. Interval development of fluid within anterior pararenal space, no walled off collections identified. No areas of pancreatic necrosis identified. No vascular complications demonstrated. Patent portal vein, patent SMV and splenic vein. 2. Interval development of colonic dilatation, filled with gas and fluid, no definite evidence for mechanical bowel obstruction, no perforation. US carotid: No evidence of hemodynamically significant cervical carotid artery stenosis. KUB: Mildly dilated loops of bowel, particularly in the right lower quadrant. Partial obstruction cannot be excluded. Alternatively, this may represent an ileus. Followup is recommended. This may include serial KUB or CT scan of the abdomen and pelvis.
[2018-06-11] MEDS: Budesonide/Formoterol 160/4.5 6 GM 60 PUFF INH IH (20:40)
[2018-06-11] MEDS: Docusate Sodium 100 MG CAP PO (20:42)
[2018-06-12] VITALS (22 sets, daily range): BP systolic 126–161; BP diastolic 79–101; PULSE 90–120; RESP 16–31; TEMP 36–37.4; O2SAT 91–96
[2018-06-12] MEDS: Ketorolac 30 MG/ML VIAL IVP (01:41)
[2018-06-12] MEDS: Normal Saline Flush 10 ML SYR IVP ×4 (01:41→20:25)
[2018-06-12] MEDS: LORazepam 1 MG TAB PO/SL ×3 (01:42→17:49)
[2018-06-12] MEDS: Sucralfate 1 GM TAB PO ×3 (05:25→17:49)
[2018-06-12] MEDS: POTASSIUM CHLORIDE/0.9% NACL 1,000 ML 150 MEQ IV ×3 (05:27→21:54)
[2018-06-12 07:24] LABS: Abs Immature Grans 0.02 k/cumm (0.0-0.09); Absolute Eosinophil Count 0.01 k/cumm (0.0-0.7); Absolute Lymphocyte Count 0.29 k/cumm (1.2-3.4); Absolute Monocyte Count 0.83 k/cumm (0.11-0.7); Absolute Neutrophil Count 7.13 k/cumm (1.2-6.7); Eosinophils % 0.1; HCT 39.2 % (40.0-50.0); Immature Grans % 0.2; Lymphocytes % 3.5; Mean Corp. HGB Concentration 33.2 g/dL (32.0-36.0); Mean Corpuscular Hemoglobin 33.9 pg (27.0-33.0); Mean Corpuscular Volume 102.3 fL (80-95); Mean Platelet Volume 10.5 fL (8.0-11.0); Neutrophils % 86.2; Platelet Count 120 x1000/uL (130-400); RBC 3.83 m/cumm (4.50-6.00); RBC Distribution Width 11.4 % (11.8-14.1); White Blood Cell Count 8.28 k/cumm (4.4-10.8)
[2018-06-12 07:43] LABS: ALT 97 U/L (12-78); AST 124 U/L (15-37); Albumin 2.2 g/dL (3.4-5.0); Alkaline Phosphatase 124 U/L (46-116); Anion Gap 6.6 mmol/L (3-11); BUN 8 mg/dL (7-18); Bilirubin, Direct 0.42 mg/dL (0.00-0.20); CO2 25.4 mmol/L (21.0-32.0); CREATININE 0.78 mg/dL (0.70-1.30); Calcium 7.1 mg/dL (8.5-10.1); Chloride 108 mmol/L (98-107); Glucose 96 mg/dL (70-100); Magnesium 2.4 mg/dL (1.8-2.4); Potassium 4.3 mmol/L (3.5-5.1); Sodium 140 mmol/L (136-145); Total Protein 5.6 g/dL (6.4-8.2)
[2018-06-12] MEDS: Budesonide/Formoterol 160/4.5 6 GM 60 PUFF INH IH ×2 (08:01→20:25)
--- NOTE | 2018-06-12 08:19 | DI.US_ITS ---
SYMPTOMS/DIAGNOSIS: PANCREATITIS, ALCOHOLISM, ? GALLSTONE ABDOMINAL ULTRASOUND: Comparison CT is 06/11/18. The study is limited by overlying bowel gas. The aorta, IVC and pancreas cannot be visualized. The liver is normal in size. There is diffuse increased echogenicity of the liver consistent with fatty infiltration. No discrete hepatic mass is seen. The gallbladder is negative. No gallstones, sludge, pericholecystic fluid or gallbladder wall thickening is seen. There was a negative sonographic Coates's sign. The common duct is within normal limits at 0.3 cm. The spleen and kidneys are unremarkable. There is a small amount of ascites in the upper abdomen. Incidental note is made of a left pleural effusion. IMPRESSION: 1. Limited examination due to overlying bowel. 2. No evidence of cholelithiasis or biliary ductal dilatation. 3. Hepatic steatosis. 4. Mild abdominal ascites and small left pleural effusion.
--- NOTE | 2018-06-12 09:00 | MERGE_ITS ---
*[facility]* *[facility]* [address] [place] [address] Date of study: 06/12/2018 Transthoracic Echocardiography M-mode, complete 2D, complete spectral Doppler, and color Doppler *STUDY CONCLUSIONS* Summary: 1. Left ventricle: The cavity size was normal. Wall thickness was normal. Systolic function was hyperdynamic. The estimated ejection fraction was 65-70%. There was no dynamic obstruction. Wall motion was normal; there were no regional wall motion abnormalities. 2. Right ventricle: The cavity size was normal. Wall thickness was normal. Systolic function was normal. 3. Pulmonary arteries: Pulmonary systolic pressure was mildly increased, in the range of 35mm Hg to 40mm Hg. *PATIENT PRESENTATION* Height: 172.7cm ((68in) ) S/D Pressure: 128 / 92 Weight: 64.9kg ((142.7lb) ) BSA: 1.76m^2 Test start time: 09:00 AM. Test stop time: 10:00 AM. CONSULTING Deborah Chow PERFORMING [facility] DENTAL ASSISTANT INSTRUCTOR RT Jama (R)(CT), [facility] ORDERING Natali Hopper REFERRING Natali Hopper PERFORMING Jonathan Lyons *PROCEDURE DATA* Procedure information: The patient was identified by two identifiers. This study was interpreted by [facility]. Pertinent images and digital data are archived for permanent storage and are available for subsequent review. No prior study was available for comparison. Study status: Routine. Transthoracic echocardiography. M-mode, complete 2D, complete spectral Doppler, and color Doppler. A Transthoracic Echocardiogram was performed. Scanning was performed from the parasternal, apical, subcostal, and suprasternal notch acoustic windows. Images were obtained using an [id number] cardiac ultrasound machine. Image quality was adequate. Study completion: The patient tolerated the procedure well. There were no complications. History: PMH: Near syncopal episodes. *CARDIAC ANATOMY* Left ventricle: The cavity size was normal. Wall thickness was normal. Systolic function was hyperdynamic. The estimated ejection fraction was 65-70%. There was no dynamic obstruction. Wall motion was normal; there were no regional wall motion abnormalities. Diastolic parameters were not diagnostic. Aortic valve: Trileaflet; normal thickness leaflets. Mobility was not restricted. Doppler: Transvalvular velocity was within the normal range. There was no stenosis. There was no significant regurgitation. VTI ratio of LVOT to aortic valve: 0.88. Valve area (VTI): 3.3cm^2. Indexed valve area (VTI): 1.9cm^2/m^2. Peak velocity ratio of LVOT to aortic valve: 0.77. Valve area (Vmax): 2.9cm^2. Indexed valve area (Vmax): 1.7cm^2/m^2. Mean velocity ratio of LVOT to aortic valve: 0.79. Valve area (Vmean): 3cm^2. Indexed valve area (Vmean): 1.7cm^2/m^2. Mean gradient (S): 4.9mm Hg. Peak gradient (S): 9.2mm Hg. Aorta: Aortic root: The aortic root was normal in size. Mitral valve: Structurally normal valve. Mobility was not restricted. Doppler: Transvalvular velocity was within the normal range. There was no evidence for stenosis. There was no significant regurgitation. Valve area by pressure half-time: 4.9cm^2. Indexed valve area by pressure half-time: 2.8cm^2/m^2. Left atrium: The atrium was normal in size. Right ventricle: The cavity size was normal. Wall thickness was normal. Systolic function was normal. Pulmonic valve: Doppler: Transvalvular velocity was within the normal range. There was no evidence for stenosis. There was no significant regurgitation. Peak gradient (S): 3.6mm Hg. Tricuspid valve: Structurally normal valve. Doppler: Transvalvular velocity was within the normal range. There was no evidence for stenosis. There was trivial regurgitation. Pulmonary artery: Pulmonary systolic pressure was mildly increased, in the range of 35mm Hg to 40mm Hg. Right atrium: The atrium was normal in size. Pericardium: There was no pericardial effusion. Systemic veins: Inferior vena cava: Well visualized. The vessel was patent and normal in size. Baseline ECG: Normal sinus rhythm. Measurements Left ventricle Value Reference LV ID, ED, PLAX 4.7 cm 3.5 - 6.0 LV ID, ES, PLAX 2.8 cm 2.1 - 4.0 LV PW thickness, ED, PLAX 1.0 cm LV end-diastolic volume, 1-p A2C 56 ml LV ejection fraction, 1-p A2C 68 % LV end-diastolic volume, 1-p A4C 70 ml LV ejection fraction, 1-p A4C 64 % LV e', lateral 0.101 m/sec LV E/e', lateral 6 LV e', medial 0.078 m/sec LV E/e', medial 7 LV e', average 0.089 m/sec LV E/e', average 6 Ventricular septum Value Reference IVS thickness, ED, PLAX 0.9 cm LVOT Value Reference LVOT ID, A-P 2.2 cm LVOT area 3.8 cm^2 LVOT peak velocity, S 1.16 m/sec LVOT mean velocity, S 0.83 m/sec LVOT VTI, S 21.9 cm LVOT peak gradient, S 5.4 mm Hg LVOT mean gradient, S 3 mm Hg Stroke volume (SV), LVOT DP 83 ml Stroke index (SV/bsa), LVOT DP 47 ml/m^2 Aortic valve Value Reference Aortic valve peak velocity, S 1.5 m/sec Aortic valve mean velocity, S 1.05 m/sec Aortic valve VTI, S 25.0 cm Aortic mean gradient, S 4.9 mm Hg Aortic peak gradient, S 9.2 mm Hg VTI ratio, LVOT/AV 0.88 Aortic valve area, VTI 3.3 cm^2 Velocity ratio, peak, LVOT/AV 0.77 Aortic valve area, peak velocity 2.9 cm^2 Velocity ratio, mean, LVOT/AV 0.79 Aortic valve area, mean velocity 3 cm^2 Aortic valve area/bsa, mean velocity 1.7 cm^2/m^2 Aorta Value Reference Aortic root ID, ED 3.0 cm Ascending aorta ID, A-P, S 3.2 cm Left atrium Value Reference LA ID, A-P, ES 3.0 cm LA ID/bsa, A-P 1.7 cm/m^2 <=2.2 LA area, ES, A4C 14.8 cm^2 8.8 - 23.4 LA area, ES, A2C 16 cm^2 LA volume/bsa, ES, 1-p A4C 21 ml/m^2 LA volume, ES, 2-p 38 ml LA volume/bsa, ES, 2-p 21 ml/m^2 LA/aortic root ratio 1 Mitral valve Value Reference Mitral E-wave peak velocity 0.57 m/sec Mitral A-wave peak velocity 0.9 m/sec Mitral deceleration time 156 ms 150 - 230 Mitral pressure half-time 45 ms Mitral E/A ratio, peak 0.64 Mitral valve area, PHT, DP 4.9 cm^2 Tricuspid valve Value Reference Tricuspid regurg peak velocity 2.9 m/sec Tricuspid peak RV-RA gradient 34.1 mm Hg Right atrium Value Reference RA area, ES, A4C 13.3 cm^2 8.3 - 19.5 Pulmonic valve Value Reference Pulmonic peak gradient, S 3.6 mm Hg Legend: (L) and (H) abel values outside specified reference range. I have personally reviewed the images and have reviewed and edited the reported findings. Electronically signed by Kwame Knowles 06/12/2018 10:26
[2018-06-12] MEDS: FLUoxetine 10 MG TAB 30 MG PO (10:55)
[2018-06-12] MEDS: Nicotine 21 MG/24 HR PATCH TD (10:56)
[2018-06-12] MEDS: Pantoprazole 40 MG VIAL IVP ×2 (10:56→20:24)
[2018-06-12 11:59] LABS: Hepatitis A Antibody IgM Negative (NEGAT); Hepatitis B Core Antibody Negative (NEGAT); Hepatitis B surface Ag Negative (NEGAT); Hepatitis C Ab w Rflx HCV PCR Negative (NEGAT)
--- NOTE | 2018-06-12 15:39 | PGE_ITS ---
Date of Service Date of service: 06/12/18 Time of Service: 12:00 Assessment and Plan (1) Ileus: Current visit: Yes Status: Acute A\\ Ileus most likely secondary to his pancreatitis P\\ Continue NPO status Await return of GI function May try some reglan if his bowel function doesn't start to come back in next 24-48 hours (2) Pancreatitis, acute: Current visit: Yes Status: Acute A\\ Pancreatitis DDx: Gallstone vs alcoholic US negative for Gallbladder pathology so suspect at this point that it is alcoholic LFT's improved slightly P\\ Check Lipase tomorrow to make sure it is decreasing. Continue with supportive care. No antibiotics needed at this time Continue with minimal po intake Will discuss with Dr. Mejia Qualifiers: Pancreatitis type: unspecified pancreatitis type Acute pancreatitis complication: no infection or necrosis Qualified Code(s): K85.90 - Acute pancreatitis without necrosis or infection, unspecified Subjective Interval history since last seen: Mr. Urias tells me he is feeling better today. His abdomen doesn't feel as tense and he has started burping. He has not yet passed any flatus. Exam Const General: cooperative, comfortable and no acute distress Resp Effort & Inspection: normal respiratory effort Auscultation: clear to auscultation bilaterally Cardio Rate: regular rate Rhythm: regular rhythm GI Inspection: distended Palpation: soft and nontender Auscultation: hypoactive bowel sounds Objective Objective Clinical Data: Abnormal lab results 06/12/18 06/12/18 Range/Units 06:20 06:20 RBC 3.83 L (4.50-6.00) m/cumm Hgb 13.0 L (13.5-17.5) g/dL Hct 39.2 L (40.0-50.0) % MCV 102.3 H (80-95) fL MCH 33.9 H (27.0-33.0) pg RDW 11.4 L (11.8-14.1) % Plt Count 120 L (130-400) x1000/uL Absolute Neutrophils 7.13 H (1.2-6.7) k/cumm Absolute Lymphocytes 0.29 L (1.2-3.4) k/cumm Absolute Monocytes 0.83 H (0.11-0.7) k/cumm Chloride 108 H (98-107) mmol/L Calcium 7.1 L (8.5-10.1) mg/dL Conjugated Bilirubin 0.42 H (0.00-0.20) mg/dL AST 124 H (15-37) U/L ALT 97 H (12-78) U/L Alkaline Phosphatase 124 H (46-116) U/L Total Protein 5.6 L (6.4-8.2) g/dL Albumin 2.2 L (3.4-5.0) g/dL Vital Signs Temperature 98.6 F 06/11/18 19:59 Temperature Source Tympanic 06/11/18 19:59 Pulse 112 H 06/12/18 08:02 Pulse Rhythm Regular 06/12/18 08:00 Pulse 93 H 06/12/18 04:00 Respiratory Rate 16 06/12/18 04:00 Respiratory Effort 06/12/18 08:00 Respiratory Depth Normal 06/12/18 08:00 Respiratory Pattern Normal 06/12/18 08:00 Blood Pressure 128/92 H 06/12/18 08:02 Blood Pressure Mean 101 06/12/18 08:02 Blood Pressure Position Supine 06/10/18 10:06 Pulse Oximetry 91 L 06/12/18 08:02 Oxygen Delivery Method Room Air 06/11/18 19:59 Oxygen Flow Rate 0 06/11/18 19:59 Pain Level 7 06/12/18 14:47 Comment 06/11/18 12:00 Intake & Output 06/11/18 06/12/18 06/12/18 23:59 11:59 23:59 Intake Total 1955.2 / 3981.2 950 / 1950 999 / 1950 Output Total 300 / 600 350 / 800 450 / 800 Balance 1656.2 / 3381.2 600 / 1150 550 / 1150 Weight 134 lb 7.712 oz Intake: IV 195.2 / 3981.2 950 / 1950 1000 / 1950 Output: Urine 300 / 600 350 / 800 450 / 800 Other: Urine Color Dark Minna Dark Minna Dark Minna Urine Appearance Clear Clear Urine Odor None None Strong Voiding Methods Urinal Urinal Urinal Laboratory Results WBC 8.28 k/cumm (4.4-10.8) 06/12/18 06:20 RBC 3.83 m/cumm (4.50-6.00) L 06/12/18 06:20 Hgb 13.0 g/dL (13.5-17.5) L 06/12/18 06:20 Hct 39.2 % (40.0-50.0) L 06/12/18 06:20 MCV 102.3 fL (80-95) H 06/12/18 06:20 MCH 33.9 pg (27.0-33.0) H 06/12/18 06:20 MCHC 33.2 g/dL (32.0-36.0) 06/12/18 06:20 RDW 11.4 % (11.8-14.1) L 06/12/18 06:20 Plt Count 120 x1000/uL (130-400) L 06/12/18 06:20 MPV 10.5 fL (8.0-11.0) 06/12/18 06:20 Immature Gran % 0.2 06/12/18 06:20 Neutrophils % 86.2 06/12/18 06:20 Lymphocytes % 3.5 06/12/18 06:20 Monocytes % 10.0 06/12/18 06:20 Eosinophils % 0.1 06/12/18 06:20 Basophils % 0.0 06/12/18 06:20 Absolute Neutrophils 7.13 k/cumm (1.2-6.7) H 06/12/18 06:20 Absolute Lymphocytes 0.29 k/cumm (1.2-3.4) L 06/12/18 06:20 Absolute Monocytes 0.83 k/cumm (0.11-0.7) H 06/12/18 06:20 Absolute Eosinophils 0.01 k/cumm (0.0-0.7) 06/12/18 06:20 Absolute Basophils 0.00 k/cumm (0.0-0.2) 06/12/18 06:20 PT 9.5 sec (9.3-11.0) 06/10/18 06:25 INR 1.0 (0.9-1.1) 06/10/18 06:25 Sodium 140 mmol/L (136-145) 06/12/18 06:20 Potassium 4.3 mmol/L (3.5-5.1) D 06/12/18 06:20 Chloride 108 mmol/L (98-107) H 06/12/18 06:20 Carbon Dioxide 25.4 mmol/L (21.0-32.0) 06/12/18 06:20 Anion Gap 6.6 mmol/L (3-11) 06/12/18 06:20 BUN 8 mg/dL (7-18) 06/12/18 06:20 Creatinine 0.78 mg/dL (0.70-1.30) 06/12/18 06:20 Estimated GFR/1.73 m2 >= 60.00 (mL/min/1.73m2) 06/12/18 06:20 Glucose 96 mg/dL (70-100) D 06/12/18 06:20 Calcium 7.1 mg/dL (8.5-10.1) L 06/12/18 06:20 Magnesium 2.4 mg/dL (1.8-2.4) 06/12/18 06:20 Total Bilirubin 1.0 mg/dL (0.2-1.0) 06/12/18 06:20 Conjugated Bilirubin 0.42 mg/dL (0.00-0.20) H 06/12/18 06:20 AST 124 U/L (15-37) H 06/12/18 06:20 ALT 97 U/L (12-78) H 06/12/18 06:20 Alkaline Phosphatase 124 U/L (46-116) H 06/12/18 06:20 Troponin I < 0.02 ng/mL (0.00-0.06) 06/09/18 10:30 Total Protein 5.6 g/dL (6.4-8.2) L 06/12/18 06:20 Albumin 2.2 g/dL (3.4-5.0) L 06/12/18 06:20 Lipase 56954 U/L (73-393) H 06/11/18 06:05 Urine Color Yellow (Yellow) 06/09/18 21:35 Urine Clarity Clear 06/09/18 21:35 Urine pH 7.0 (5-8) 06/09/18 21:35 Ur Specific [place] 1.015 (1.005-1.025) 06/09/18 21:35 Urine Protein Negative mg/dL (Negative) 06/09/18 21:35 Urine Ketones 40 mg/dL (Negative) H 06/09/18 21:35 Urine Blood Negative (Negative) 06/09/18 21:35 Urine Nitrite Negative (Negative) 06/09/18 21:35 Urine Bilirubin Negative (Negative) 06/09/18 21:35 Urine Urobilinogen 0.2 EU/dL (Up TO 0.2) 06/09/18 21:35 Ur Leukocyte Esterase Negative (Negative) 06/09/18 21:35 Urine Glucose Negative mg/dL (Negative) 06/09/18 21:35 Hepatitis A IgM Ab Negative (NEGAT) 06/09/18 11:30 Hep Bs Antigen Negative (NEGAT) 06/09/18 11:30 Hep B Core Total Ab Negative (NEGAT) 06/09/18 11:30 Hepatitis C Antibody Negative (NEGAT) 06/09/18 11:30
--- NOTE | 2018-06-12 15:59 | PDOC.CMPRO ---
- If Service Date Differs Date of service: 06/12/18 Time of Service: 15:59 Care Management Progress Note S/O: Iggy continues to be acute and transitioned to ICU level of care today.His CIWA score continues to be elevated he has received minimal doses of Lorazepam. CM did review concerns with primary nurse of alcohol withdrawal on behalf of the patient and with provider. Iggy reports he drinks at least a six pack a day. Iggy makes good eye contact he is engaged during assessment. He continues to be treated for pain with IV pain management and he remains NPO. A: 63 y/o male admitted 06/09/18 for Pancreatitis, Alcoholism P: Iggy will return home with no additional anticipated services. He will F/U with PCP and plan of care as prescribed. Iggy will also F/U with RUPERTO Saravia, whom sees him in the community.Iggy's mom Vee to transport when ready.
--- NOTE | 2018-06-12 17:31 | W.PM.PROGNOT ---
Date of Service Date of service: 06/12/18 Time of Service: 12:00 Assessment and Plan (1) Ileus: Current visit: Yes Status: Acute Slight clinical improvement. Likely due to pancreatitis. Continue NPO status. Appreciate surgical help (2) Pancreatitis, acute: Current visit: Yes Status: Acute Due to alcohol. No evidence of cholelithiasis. Continue IVF. Pleural effusions are likely due to pancreatitis Qualifiers: Pancreatitis type: unspecified pancreatitis type Acute pancreatitis complication: no infection or necrosis Qualified Code(s): K85.90 - Acute pancreatitis without necrosis or infection, unspecified (3) Melena: Current visit: Yes Status: Resolved Continue IV PPI BID. Continue NPO status. (4) Epigastric pain: Current visit: Yes Status: Acute Likely due to acute pancreatitis, but possibly due to gastritis, ?ulcer. Continue morphine. (5) Near syncope: Current visit: Yes Status: Acute Orthostatic on presentation. Continue IVF. US carotid and echo wnl. (6) Alcohol abuse: Current visit: No Status: Acute Continue CIWA; has prn ativan. Continue banana bag. (7) Chronic obstructive pulmonary disease: Current visit: No Status: Chronic At baseline. Finished azithromycin (8) DVT prophylaxis: Current visit: Yes Status: Acute SCD's + TEDs due to suspected GI bleed (9) Discharge planning issues: Current visit: Yes Status: Acute Full code Subjective Interval history since last seen: States he feels a little bit better today. He still has not had flatus or BM. Abdomen is less tender today. He denies dizziness, chest pain, shortness of breath, nausea. CIWA score of 9 overnight, requiring 2 mg of ativan. Exam Narrative Exam Narrative: General: Middle aged male, laying in bed, abdomen significantly more distended, very minimal bowel sounds heard HEENT: EOMI, MMM Cardiovascular: RRR, no m/r/g Lungs: Diminished, clear to auscultation B Gastrointestinal: abdomen less distended, nontender on palpation, no bowel sounds Extremities: no edema, clubbing, or cyanosis, 1+ pedal pulses B. Objective Objective Clinical Data: Abnormal lab results 06/12/18 06/12/18 Range/Units 06:20 06:20 RBC 3.83 L (4.50-6.00) m/cumm Hgb 13.0 L (13.5-17.5) g/dL Hct 39.2 L (40.0-50.0) % MCV 102.3 H (80-95) fL MCH 33.9 H (27.0-33.0) pg RDW 11.4 L (11.8-14.1) % Plt Count 120 L (130-400) x1000/uL Absolute Neutrophils 7.13 H (1.2-6.7) k/cumm Absolute Lymphocytes 0.29 L (1.2-3.4) k/cumm Absolute Monocytes 0.83 H (0.11-0.7) k/cumm Chloride 108 H (98-107) mmol/L Calcium 7.1 L (8.5-10.1) mg/dL Conjugated Bilirubin 0.42 H (0.00-0.20) mg/dL AST 124 H (15-37) U/L ALT 97 H (12-78) U/L Alkaline Phosphatase 124 H (46-116) U/L Total Protein 5.6 L (6.4-8.2) g/dL Albumin 2.2 L (3.4-5.0) g/dL Vital Signs Temperature 37.0 C 06/11/18 19:59 Temperature Source Tympanic 06/11/18 19:59 Pulse 94 H 06/12/18 15:00 Pulse Rhythm Regular 06/12/18 08:00 Pulse 93 H 06/12/18 04:00 Respiratory Rate 16 06/12/18 04:00 Respiratory Effort 06/12/18 08:00 Respiratory Depth Normal 06/12/18 08:00 Respiratory Pattern Normal 06/12/18 08:00 Blood Pressure 128/92 H 06/12/18 08:02 Blood Pressure Mean 101 06/12/18 08:02 Blood Pressure Position Supine 06/10/18 10:06 Pulse Oximetry 91 L 06/12/18 08:02 Oxygen Delivery Method Room Air 06/11/18 19:59 Oxygen Flow Rate 0 06/11/18 19:59 Pain Level 7 06/12/18 14:47 Comment 06/11/18 12:00 Intake & Output 06/11/18 06/12/18 06/12/18 23:59 11:59 23:59 Intake Total 1956.2 / 3981.2 950 / 1950 1000 / 1950 Output Total 300 / 600 350 / 800 450 / 800 Balance 1656.2 / 3381.2 600 / 1150 550 / 1150 Weight 61 kg Intake: IV 1956.2 / 3981.2 950 / 1950 1000 / 1950 Output: Urine 300 / 600 350 / 800 450 / 800 Other: Urine Color Dark [place]na Dark Minna Dark [place] Urine Appearance Clear Clear Urine Odor None None Strong Voiding Methods Urinal Urinal Urinal Laboratory Results WBC 8.28 k/cumm (4.4-10.8) 06/12/18 06:20 RBC 3.83 m/cumm (4.50-6.00) L 06/12/18 06:20 Hgb 13.0 g/dL (13.5-17.5) L 06/12/18 06:20 Hct 39.2 % (40.0-50.0) L 06/12/18 06:20 MCV 102.3 fL (80-95) H 06/12/18 06:20 MCH 33.9 pg (27.0-33.0) H 06/12/18 06:20 MCHC 33.2 g/dL (32.0-36.0) 06/12/18 06:20 RDW 11.4 % (11.8-14.1) L 06/12/18 06:20 Plt Count 120 x1000/uL (130-400) L 06/12/18 06:20 MPV 10.5 fL (8.0-11.0) 06/12/18 06:20 Immature Gran % 0.2 06/12/18 06:20 Neutrophils % 86.2 06/12/18 06:20 Lymphocytes % 3.5 06/12/18 06:20 Monocytes % 10.0 06/12/18 06:20 Eosinophils % 0.1 06/12/18 06:20 Basophils % 0.0 06/12/18 06:20 Absolute Neutrophils 7.13 k/cumm (1.2-6.7) H 06/12/18 06:20 Absolute Lymphocytes 0.29 k/cumm (1.2-3.4) L 06/12/18 06:20 Absolute Monocytes 0.83 k/cumm (0.11-0.7) H 06/12/18 06:20 Absolute Eosinophils 0.01 k/cumm (0.0-0.7) 06/12/18 06:20 Absolute Basophils 0.00 k/cumm (0.0-0.2) 06/12/18 06:20 PT 9.5 sec (9.3-11.0) 06/10/18 06:25 INR 1.0 (0.9-1.1) 06/10/18 06:25 Sodium 140 mmol/L (136-145) 06/12/18 06:20 Potassium 4.3 mmol/L (3.5-5.1) D 06/12/18 06:20 Chloride 108 mmol/L (98-107) H 06/12/18 06:20 Carbon Dioxide 25.4 mmol/L (21.0-32.0) 06/12/18 06:20 Anion Gap 6.6 mmol/L (3-11) 06/12/18 06:20 BUN 8 mg/dL (7-18) 06/12/18 06:20 Creatinine 0.78 mg/dL (0.70-1.30) 06/12/18 06:20 Estimated GFR/1.73 m2 >= 60.00 (mL/min/1.73m2) 06/12/18 06:20 Glucose 96 mg/dL (70-100) D 06/12/18 06:20 Calcium 7.1 mg/dL (8.5-10.1) L 06/12/18 06:20 Magnesium 2.4 mg/dL (1.8-2.4) 06/12/18 06:20 Total Bilirubin 1.0 mg/dL (0.2-1.0) 06/12/18 06:20 Conjugated Bilirubin 0.42 mg/dL (0.00-0.20) H 06/12/18 06:20 AST 124 U/L (15-37) H 06/12/18 06:20 ALT 97 U/L (12-78) H 06/12/18 06:20 Alkaline Phosphatase 124 U/L (46-116) H 06/12/18 06:20 Troponin I < 0.02 ng/mL (0.00-0.06) 06/09/18 10:30 Total Protein 5.6 g/dL (6.4-8.2) L 06/12/18 06:20 Albumin 2.2 g/dL (3.4-5.0) L 06/12/18 06:20 Lipase 92510 U/L (73-393) H 06/11/18 06:05 Urine Color Yellow (Yellow) 06/09/18 21:35 Urine Clarity Clear 06/09/18 21:35 Urine pH 7.0 (5-8) 06/09/18 21:35 Ur Specific [place] 1.015 (1.005-1.025) 06/09/18 21:35 Urine Protein Negative mg/dL (Negative) 06/09/18 21:35 Urine Ketones 40 mg/dL (Negative) H 06/09/18 21:35 Urine Blood Negative (Negative) 06/09/18 21:35 Urine Nitrite Negative (Negative) 06/09/18 21:35 Urine Bilirubin Negative (Negative) 06/09/18 21:35 Urine Urobilinogen 0.2 EU/dL (Up TO 0.2) 06/09/18 21:35 Ur Leukocyte Esterase Negative (Negative) 06/09/18 21:35 Urine Glucose Negative mg/dL (Negative) 06/09/18 21:35 Hepatitis A IgM Ab Negative (NEGAT) 06/09/18 11:30 Hep Bs Antigen Negative (NEGAT) 06/09/18 11:30 Hep B Core Total Ab Negative (NEGAT) 06/09/18 11:30 Hepatitis C Antibody Negative (NEGAT) 06/09/18 11:30 US abdomen: 1. Limited examination due to overlying bowel. 2. No evidence of cholelithiasis or biliary ductal dilatation. 3. Hepatic steatosis. 4. Mild abdominal ascites and small left pleural effusion. Echo: 1. Left ventricle: The cavity size was normal. Wall thickness was normal. Systolic function was hyperdynamic. The estimated ejection fraction was 65-70%. There was no dynamic obstruction. Wall motion was normal; there were no regional wall motion abnormalities. 2. Right ventricle: The cavity size was normal. Wall thickness was normal. Systolic function was normal. 3. Pulmonary arteries: Pulmonary systolic pressure was mildly increased, in the range of 35mm Hg to 40mm Hg.
[2018-06-12] MEDS: Acetaminophen 325 MG TAB PO (20:25)
[2018-06-13] VITALS (35 sets, daily range): BP systolic 138–167; BP diastolic 83–106; PULSE 93–116; RESP 17–35; TEMP 36.9–37.9; O2SAT 83–93
[2018-06-13] MEDS: Sucralfate 1 GM TAB PO ×5 (00:01→23:34)
[2018-06-13] MEDS: LORazepam 1 MG TAB PO/SL ×4 (00:01→12:20)
[2018-06-13] MEDS: Normal Saline Flush 10 ML SYR IVP ×6 (00:02→22:48)
[2018-06-13] MEDS: POTASSIUM CHLORIDE/0.9% NACL 1,000 ML 150 MEQ IV (03:42)
[2018-06-13 07:10] LABS: HCT 38.7 % (40.0-50.0); HGB 12.9 g/dL (13.5-17.5); Mean Corp. HGB Concentration 33.3 g/dL (32.0-36.0); Mean Corpuscular Hemoglobin 34.2 pg (27.0-33.0); Mean Corpuscular Volume 102.7 fL (80-95); Mean Platelet Volume 10.2 fL (8.0-11.0); Platelet Count 121 x1000/uL (130-400); RBC 3.77 m/cumm (4.50-6.00); RBC Distribution Width 11.6 % (11.8-14.1); White Blood Cell Count 7.67 k/cumm (4.4-10.8)
[2018-06-13 07:33] LABS: ALT 67 U/L (12-78); AST 55 U/L (15-37); Albumin 2.1 g/dL (3.4-5.0); Alkaline Phosphatase 116 U/L (46-116); Anion Gap 8.7 mmol/L (3-11); BUN 8 mg/dL (7-18); Bilirubin, Direct 0.47 mg/dL (0.00-0.20); Bilirubin, Total 1.1 mg/dL (0.2-1.0); CO2 24.3 mmol/L (21.0-32.0); Calcium 7.4 mg/dL (8.5-10.1); Chloride 106 mmol/L (98-107); Glucose 84 mg/dL (70-100); Lipase 766 U/L (73-393); Magnesium 2.3 mg/dL (1.8-2.4); Potassium 4.1 mmol/L (3.5-5.1); Sodium 139 mmol/L (136-145); Total Protein 5.8 g/dL (6.4-8.2)
[2018-06-13 07:44] LABS: Absolute Lymphocyte Count 0.23 k/cumm (1.2-3.4); Absolute Monocyte Count 0.92 k/cumm (0.11-0.7); Absolute Neutrophil Count 6.52 k/cumm (1.2-6.7)
[2018-06-13 07:45] LABS: Diff Comment Manual Differential; RBC Morphology Normal
[2018-06-13] MEDS: Budesonide/Formoterol 160/4.5 6 GM 60 PUFF INH IH ×2 (08:00→20:36)
[2018-06-13] MEDS: Pantoprazole 40 MG VIAL IVP ×2 (08:25→20:34)
[2018-06-13] MEDS: FLUoxetine 10 MG TAB 30 MG PO (08:25)
--- NOTE | 2018-06-13 13:22 | PDOC.CMPRO ---
- If Service Date Differs Date of service: 06/13/18 Time of Service: 13:22 Care Management Progress Note S/O: Iggy continues in the ICU at this time on CIWA protocol and IV fluids. Reviewed CM role and DC plans which remain the same. A: 63 y/o male admitted 06/09/18 for Pancreatitis, Alcoholism P: Iggy will return home with no additional anticipated services. He will F/U with PCP and plan of care as prescribed. Iggy will also F/U with RUPERTO Saravia, whom sees him in the community.Iggy's mom Vee to transport when ready.
--- NOTE | 2018-06-13 15:30 | NUR.NOTE ---
Nursing Note: 1510: pt transferred from ICU 219 to MS 226. pt ambulatory from icu to ms. pt oriented to call [employer] A/[employer] remote system. see vs for further information. care of pt handed off to Min Avalos RN at 1520
[2018-06-13] MEDS: LORazepam 2 MG/ML VIAL 1 MG IVP (16:02)
[2018-06-13] MEDS: MORPHine 10 MG/ML VIAL 5 MG IVP ×2 (20:33→22:47)
[2018-06-14] VITALS (54 sets, daily range): BP systolic 141–169; BP diastolic 87–108; PULSE 80–107; RESP 17–29; TEMP 36.6–37.8; O2SAT 83–96
[2018-06-14] MEDS: DEXTROSE 5%-0.9% SALINE 1,000 ML 150 ML IV ×2 (01:28→07:28)
--- NOTE | 2018-06-14 02:12 | NUR.NOTE ---
Nursing Note: At 0200 hrs., patient got out of bed with SCD inplaced, bed alarm off. Witnessed by charge authorizer nurse on kneeling position reaching bedside commode. No physical injury noted. Vital signs taken and recorded. Pt is alert and oriented x 3, complained of abdominal pain as usual which was medicated with Morphine PRN . FS was 137, verbalized of having dizziness but remains calm on bed. Bed alarm in progress. MD notified by RN ANGLE. Call lights at reach.
[2018-06-14] MEDS: MORPHine 10 MG/ML VIAL 5 MG IVP ×2 (03:33→15:03)
[2018-06-14] MEDS: Sucralfate 1 GM TAB PO ×2 (05:16→12:46)
[2018-06-14 07:33] LABS: Abs Immature Grans 0.02 k/cumm (0.0-0.09); HCT 35.9 % (40.0-50.0); Mean Corp. HGB Concentration 33.4 g/dL (32.0-36.0); Mean Corpuscular Hemoglobin 33.9 pg (27.0-33.0); Mean Corpuscular Volume 101.4 fL (80-95); Mean Platelet Volume 10.4 fL (8.0-11.0); RBC 3.54 m/cumm (4.50-6.00); RBC Distribution Width 11.4 % (11.8-14.1); White Blood Cell Count 7.93 k/cumm (4.4-10.8)
[2018-06-14 07:46] LABS: Anion Gap 9.8 mmol/L (3-11); BUN 9 mg/dL (7-18); CO2 25.2 mmol/L (21.0-32.0); CREATININE 0.66 mg/dL (0.70-1.30); Calcium 7.6 mg/dL (8.5-10.1); Chloride 103 mmol/L (98-107); Glucose 136 mg/dL (70-100); Magnesium 2.5 mg/dL (1.8-2.4); Potassium 3.3 mmol/L (3.5-5.1); Sodium 138 mmol/L (136-145)
[2018-06-14 07:50] LABS: ALT 48 U/L (12-78); AST 31 U/L (15-37); Albumin 1.9 g/dL (3.4-5.0); Alkaline Phosphatase 112 U/L (46-116); Bilirubin, Direct 0.33 mg/dL (0.00-0.20); Bilirubin, Total 0.8 mg/dL (0.2-1.0); Total Protein 5.7 g/dL (6.4-8.2)
[2018-06-14] MEDS: Budesonide/Formoterol 160/4.5 6 GM 60 PUFF INH IH (07:55)
[2018-06-14 08:10] LABS: Absolute Lymphocyte Count 0.32 k/cumm (1.2-3.4); Absolute Neutrophil Count 6.74 k/cumm (1.2-6.7); Platelet Count 144 x1000/uL (130-400)
[2018-06-14 08:11] LABS: Absolute Monocyte Count 0.87 k/cumm (0.11-0.7)
[2018-06-14 08:12] LABS: Polychromasia Present
[2018-06-14] MEDS: FLUoxetine 10 MG TAB 30 MG PO (08:32)
[2018-06-14] MEDS: Pantoprazole 40 MG VIAL IVP ×2 (08:32→21:18)
[2018-06-14] MEDS: Nicotine 21 MG/24 HR PATCH TD (08:33)
[2018-06-14] MEDS: Normal Saline Flush 10 ML SYR IVP ×5 (08:33→23:28)
--- NOTE | 2018-06-14 10:44 | DI.RAD_ITS ---
SYMPTOMS/DIAGNOSIS: F/U ILEUS, ? PNEUMONIA VS ATELECTASIS PA AND LATERAL CHEST: Comparison is made with chest x-ray of 2Jan[address] of the abdomen and pelvis of . There has been interval increase in bilateral pleural effusions. There is adjacent atelectasis. Infiltrates can not be excluded. The heart size appears within normal limits. IMPRESSION: Interval increase in bilateral pleural effusions. Bibasilar atelectasis vs infiltrates. FLAT AND UPRIGHT ABDOMEN: Comparison is made with CT examinations of 5 and . There has been interval increase in the amount of dilatation of the colon when compared with the previous exam. The cecum measures 12 cm in diameter. There is a small amount of dilatation of distal small bowel. No free air is visible. There are bilateral pleural effusions. IMPRESSION: Increased distention of the colon compared with the previous exam.
--- NOTE | 2018-06-14 12:26 | PDOC.CMPRO ---
- If Service Date Differs Date of service: 06/14/18 Time of Service: 12:26 Care Management Progress Note S/O: Iggy is lying in bed when this procedure writer visits this morning, he is sleeping soundly and appears comfortable. Iggy transitioned to a Med/Surg level of care yesterday 06/13 and remains on CIWA protocol and IVF at this time. No change in DC plan. A: 63 y/o male admitted 06/09/18 for Pancreatitis, Alcoholism P: Iggy will return home with no additional anticipated services. He will F/U with PCP and plan of care as prescribed. Iggy will also F/U with Shweta Saleh, [facility], whom sees him in the community, as well as Brando Dobson, therapist,.Iggy's mom Vee to transport when ready.
[2018-06-14] MEDS: POTASSIUM CHLORIDE/0.9% NACL 1,000 ML 150 MEQ IV ×2 (12:38→22:32)
--- NOTE | 2018-06-14 12:38 | CMPROGNOTE_ITS ---
- If Service Date Differs Date of service: 06/14/18 Time of Service: 12:26 Care Management Progress Note S/O: Iggy is lying in bed when this typewriter aligner visits this morning, he is sleeping soundly and appears comfortable. Iggy transitioned to a Med/Surg level of care yesterday 06/13 and remains on CIWA protocol and IVF at this time. No change in DC plan. A: 63 y/o male admitted 06/09/18 for Pancreatitis, Alcoholism P: Iggy will return home with no additional anticipated services. He will F/U with PCP and plan of care as prescribed. Iggy will also F/U with Shweta Saleh, [facility], whom sees him in the community, as well as Brando Dobson, therapist,.Iggy's mom Vee to transport when ready.
--- NOTE | 2018-06-14 12:41 | W.PM.PROGNOT ---
Documented by User: Ana María Dempsey NP 06/14/18 16:03 Date of Service Date of service: 06/14/18 Time of Service: 12:43 Assessment and Plan (1) Ileus: Current visit: Yes Status: Acute ABD series completed. Comparison is made with CT examinations of and . There has been interval increase in the amount of dilatation of the colon when compared with the previous exam. The cecum measures 12 cm in diameter. There is a small amount of dilatation of distal small bowel. No free air is visible. There are bilateral pleural effusions. IMPRESSION: Increased distention of the colon compared with the previous exam. Plan to transfer to ICU. NGT ordered to decompress abdominal distention and for comfort. Place lomax catheter for accurate Intake and Output measurement. Continue with NPO status, IVF, and pain management. Dr Vásquez notified of worsening condition. Thank you for surgical guidance. (2) Pancreatitis, acute: Current visit: Yes Status: Acute Alcohol induced. LFTs stablized and Lipase improving. Given pt had increased nausea and abdominal pain this am with sips of fluids continue with NPO status for now and IVF per ordered. Qualifiers: Acute pancreatitis complication: no infection or necrosis Pancreatitis type: unspecified pancreatitis type Qualified Code(s): K85.90 - Acute pancreatitis without necrosis or infection, unspecified (3) Epigastric pain: Current visit: Yes Status: Acute Likely due to pancreatitis and distended bowel. Transfer to ICU for close monitoring. NGT ordered to decrease gastric distention. Continue with IV morphine as needed for pain control. Encourage ambulation to stimulate gastric motility. (4) Alcohol abuse: Current visit: No Status: Acute CIWA in last 12 hours 0 and 4. Continue CIWA; has prn ativan. Continue banana bag. (5) Melena: Current visit: Yes Status: Resolved No BM since admission. Continue IV PPI BID and NPO status. (6) Near syncope: Current visit: Yes Status: Acute Orthostatic on presentation. Continue IVF. US carotid and echo wnl. Continue telemetry monitoring. (7) Chronic obstructive pulmonary disease: Current visit: No Status: Chronic CXR done today. Comparison is made with chest x-ray of 2Jan[address] of the abdomen and pelvis of . There has been interval increase in bilateral pleural effusions. There is adjacent atelectasis. Infiltrates can not be excluded. The heart size appears within normal limits. IMPRESSION: Interval increase in bilateral pleural effusions. Bibasilar atelectasis vs infiltrates. Liklely due to pancreatitis fluid rescucitation. Continue to monitor respiratory status. Finished Azithromycin. WBC WNL, no fevers, L/S diminshed BLL otherwise CTA, no SOB. Hold on ABX for now. (8) DVT prophylaxis: Current visit: Yes Status: Acute SCD's + TEDs due to suspected GI bleed (9) Discharge planning issues: Current visit: Yes Status: Acute Full Code This case has been discussed with Dr Hopper who is in aggreement. Subjective Interval history since last seen: Mr Urias is a 63yo male patient admitted to hospital service 06/09/18 with acute pancreatitis and reported melena several days prior to admission. PMHx includes non-oxygen dependent COPD, dyspepsia, alcohol abuse, anxiety, and lung cancer s/p radiation. Const:Reports 5/10 frontal headache, denies blurry vision/numbness and tingling. CV:Denies: CP/palpitations Pulm:Denies: SOB, cough. Abdomen:Pt states had sips of liquids this am from night RN despite NPO orders. C/O increased nausea and generalized abdominal pain 9/10 radiating to back; denies flatus; No BM : No issues reported Exam Narrative Exam Narrative: Constiutional: Middle aged male lying in bed appears older than age, A+Ox3, pleasant, cooperative HEENT: EOMI, MMM CV: HRR no m/r/g no edema radial pulses +2, weak dp pulses Lungs: diminished BLL otherwise CTA, O2 sat 91% RA GI: Abdomen distended, +BS, tender 9/10 generalized with palpation Extremities: CASTRO x4, no clubbing or cyanosis Objective Objective Clinical Data: Abnormal lab results 06/14/18 06/14/18 06/14/18 Range/Units 06:30 06:30 06:30 RBC 3.54 L (4.50-6.00) m/cumm Hgb 12.0 L (13.5-17.5) g/dL Hct 35.9 L (40.0-50.0) % MCV 101.4 H (80-95) fL MCH 33.9 H (27.0-33.0) pg RDW 11.4 L (11.8-14.1) % Absolute Neutrophils 6.74 H (1.2-6.7) k/cumm Absolute Lymphocytes 0.32 L (1.2-3.4) k/cumm Absolute Monocytes 0.87 H (0.11-0.7) k/cumm Potassium 3.3 L (3.5-5.1) mmol/L Creatinine 0.66 L (0.70-1.30) mg/dL Glucose 136 H (70-100) mg/dL Calcium 7.6 L (8.5-10.1) mg/dL Magnesium 2.5 H (1.8-2.4) mg/dL Conjugated Bilirubin 0.33 H (0.00-0.20) mg/dL Total Protein 5.7 L (6.4-8.2) g/dL Albumin 1.9 L (3.4-5.0) g/dL Vital Signs Temperature 37.1 C 06/14/18 07:40 Temperature Source Tympanic 06/14/18 07:40 Pulse 92 H 06/14/18 07:40 Pulse Rhythm Regular 06/12/18 08:00 Pulse 116 H 06/13/18 11:00 Respiratory Rate 18 06/14/18 07:40 Respiratory Effort 06/13/18 12:10 Respiratory Depth Normal 06/13/18 12:10 Respiratory Pattern Tachypnea 06/13/18 12:10 Blood Pressure 160/90 H 06/14/18 07:40 Blood Pressure Mean 116 06/13/18 12:10 Blood Pressure Position Supine 06/13/18 12:10 Pulse Oximetry 92 L 06/14/18 07:53 Oxygen Delivery Method Room Air 06/14/18 07:53 Oxygen Flow Rate 0 06/14/18 07:53 Pain Level 0 06/14/18 08:33 Comment 06/11/18 12:00 Intake & Output 06/13/18 06/14/18 06/14/18 23:59 11:59 23:59 Intake Total 2880. 900 / 900 Output Total 350 / 350 Balance 1630. 550 / 550 Weight 67.2 kg Intake: IV 2880. 900 / 900 Output: Urine 350 / 350 Other: Urine Color [place] Urine Appearance Clear Urine Odor Normal Voiding Methods Bedside Commode Laboratory Results WBC 7.93 k/cumm (4.4-10.8) 06/14/18 06:30 RBC 3.54 m/cumm (4.50-6.00) L 06/14/18 06:30 Hgb 12.0 g/dL (13.5-17.5) L 06/14/18 06:30 Hct 35.9 % (40.0-50.0) L 06/14/18 06:30 MCV 101.4 fL (80-95) H 06/14/18 06:30 MCH 33.9 pg (27.0-33.0) H 06/14/18 06:30 MCHC 33.4 g/dL (32.0-36.0) 06/14/18 06:30 RDW 11.4 % (11.8-14.1) L 06/14/18 06:30 Plt Count 144 x1000/uL (130-400) 06/14/18 06:30 MPV 10.4 fL (8.0-11.0) 06/14/18 06:30 Immature Gran % 0.0 06/14/18 06:30 Neutrophils % 77.0 06/14/18 06:30 Lymphocytes % 4.0 06/14/18 06:30 Monocytes % 11.0 06/14/18 06:30 Eosinophils % 0.0 06/14/18 06:30 Basophils % 0.0 06/14/18 06:30 Absolute Neutrophils 6.74 k/cumm (1.2-6.7) H 06/14/18 06:30 Band Neutrophils 8.0 % 06/14/18 06:30 Absolute Lymphocytes 0.32 k/cumm (1.2-3.4) L 06/14/18 06:30 Absolute Monocytes 0.87 k/cumm (0.11-0.7) H 06/14/18 06:30 Absolute Eosinophils 0.00 k/cumm (0.0-0.7) 06/14/18 06:30 Absolute Basophils 0.00 k/cumm (0.0-0.2) 06/14/18 06:30 Differential Comment 06/14/18 06:30 RBC Morphology See below 06/14/18 06:30 Polychromasia Present 06/14/18 06:30 PT 9.5 sec (9.3-11.0) 06/10/18 06:25 INR 1.0 (0.9-1.1) 06/10/18 06:25 Sodium 138 mmol/L (136-145) 06/14/18 06:30 Potassium 3.3 mmol/L (3.5-5.1) L 06/14/18 06:30 Chloride 103 mmol/L (98-107) 06/14/18 06:30 Carbon Dioxide 25.2 mmol/L (21.0-32.0) 06/14/18 06:30 Anion Gap 9.8 mmol/L (3-11) 06/14/18 06:30 BUN 9 mg/dL (7-18) 06/14/18 06:30 Creatinine 0.66 mg/dL (0.70-1.30) L 06/14/18 06:30 Estimated GFR/1.73 m2 >= 60.00 (mL/min/1.73m2) 06/14/18 06:30 Glucose 136 mg/dL (70-100) H 06/14/18 06:30 Calcium 7.6 mg/dL (8.5-10.1) L 06/14/18 06:30 Magnesium 2.5 mg/dL (1.8-2.4) H 06/14/18 06:30 Total Bilirubin 0.8 mg/dL (0.2-1.0) 06/14/18 06:30 Conjugated Bilirubin 0.33 mg/dL (0.00-0.20) H 06/14/18 06:30 AST 31 U/L (15-37) 06/14/18 06:30 ALT 48 U/L (12-78) 06/14/18 06:30 Alkaline Phosphatase 112 U/L (46-116) 06/14/18 06:30 Troponin I < 0.02 ng/mL (0.00-0.06) 06/09/18 10:30 Total Protein 5.7 g/dL (6.4-8.2) L 06/14/18 06:30 Albumin 1.9 g/dL (3.4-5.0) L 06/14/18 06:30 Lipase 766 U/L (73-393) H 06/13/18 06:10 Urine Color Yellow (Yellow) 06/09/18 21:35 Urine Clarity Clear 06/09/18 21:35 Urine pH 7.0 (5-8) 06/09/18 21:35 Ur Specific [place] 1.015 (1.005-1.025) 06/09/18 21:35 Urine Protein Negative mg/dL (Negative) 06/09/18 21:35 Urine Ketones 40 mg/dL (Negative) H 06/09/18 21:35 Urine Blood Negative (Negative) 06/09/18 21:35 Urine Nitrite Negative (Negative) 06/09/18 21:35 Urine Bilirubin Negative (Negative) 06/09/18 21:35 Urine Urobilinogen 0.2 EU/dL (Up TO 0.2) 06/09/18 21:35 Ur Leukocyte Esterase Negative (Negative) 06/09/18 21:35 Urine Glucose Negative mg/dL (Negative) 06/09/18 21:35 Hepatitis A IgM Ab Negative (NEGAT) 06/09/18 11:30 Hep Bs Antigen Negative (NEGAT) 06/09/18 11:30 Hep B Core Total Ab Negative (NEGAT) 06/09/18 11:30 Hepatitis C Antibody Negative (NEGAT) 06/09/18 11:30 PA AND LATERAL CHEST: Comparison is made with chest x-ray of and CT of the abdomen and pelvis of . There has been interval increase in bilateral pleural effusions. There is adjacent atelectasis. Infiltrates can not be excluded. The heart size appears within normal limits. IMPRESSION: Interval increase in bilateral pleural effusions. Bibasilar atelectasis vs infiltrates. FLAT AND UPRIGHT ABDOMEN: Comparison is made with CT examinations of and . There has been interval increase in the amount of dilatation of the colon when compared with the previous exam. The cecum measures 12 cm in diameter. There is a small amount of dilatation of distal small bowel. No free air is visible. There are bilateral pleural effusions. IMPRESSION: Increased distention of the colon compared with the previous exam. Documented by User: Natali Hopper MD 06/14/18 18:07
[2018-06-14] MEDS: Ondansetron 4 MG/2 ML VIAL IVP (12:45)
[2018-06-14] MEDS: POTASSIUM CHLORIDE 10 MEQ/100 ML BAG 100 MEQ IVPB ×2 (13:18→14:21)
[2018-06-14] MEDS: Milk of Magnesia 30 ML CUP PO (14:18)
--- NOTE | 2018-06-14 15:50 | DI.CT_ITS ---
SYMPTOMS/DIAGNOSIS: F/U PANCREATITIS/ILEUS CT OF THE ABDOMEN AND PELVIS: Comparison is made with June,. The images were performed from the lower chest through the ischial tuberosities after IV and without oral contrast. There has been interval increase in size of the bilateral pleural effusions and adjacent atelectasis when compared with the previous exam. There is a trace amount of pericardial fluid. There has been interval decrease in amount of the abdominal ascites. Body wall edema is more prominent on the current exam. Contrast is seen in the gallbladder from the previous examination. The liver shows fatty infiltration, unchanged. The spleen, adrenals and kidneys are unremarkable. There are a few tiny pancreatic cysts fluid is again noted around the pancreas. There is no significant phlegmon or evidence of pseudocyt. There has been interval increase in the amount of colonic dilatation when compared with the previous exam. There is a large amount of air as well as fluid in the cecum through splenic flexure. There is now dilatation of distal small bowel. The distal descending colon and rectum are not abnormally distended. No wall thickening or pneumatois is seen. No obstructing lesion is identified. The appendix remains normal. Mild wall thickening of the urinary bladder is again noted. Innumerable lytic lesions are noted throughout the visualized bones. The findings could represent metastatic disease, multiple myeloma or other marrow infiltrative process. IMPRESSION: Further increase in dilatation of the ascending and transverse colon. The descending and rectosigmoid are not abnormally distended. There is no focal transition point or evidence of wall thickening. There is also now dilatation of distal small bowel. Bilateral pleural effusions and body wall edema have increased.
[2018-06-14] MEDS: Omnipaque 350 MG/ML 100 ML BTL IJ (15:53)
--- NOTE | 2018-06-14 16:14 | DI.VRAD_ITS ---
EXAM: CT Abdomen and Pelvis With Contrast EXAM DATE/TIME: 06/14/2018 3:53 PM CLINICAL HISTORY: 63 years old, male; Pain; Abdominal pain; Localized; Lower; Patient HX: F/u pancreatitis/ileus TECHNIQUE: Axial computed tomography images of the abdomen and pelvis with intravenous contrast. All CT scans at this facility use at least one of these dose optimization techniques: automated exposure control; mA and/or kV adjustment per patient size (includes targeted exams where dose is matched to clinical indication); or iterative reconstruction. Coronal and sagittal reformatted images were created and reviewed. CONTRAST: 92 ml of omnipaque 350 administered intravenously. COMPARISON: CT ABDOMEN PELVIS W 06/11/2018 2:44 PM FINDINGS: Lower thorax: Size of the pleural effusions has increased since the previous exam. The effusions are now moderate to large in size, but incompletely evaluated. There is increased consolidation in the lower lobes ABDOMEN: Liver: Normal. No mass. Gallbladder and bile ducts: Normal. No calcified stones. No ductal dilation. Pancreas: Fluid is centered about the pancreas, but there is normal enhancement of the pancreas otherwise. No organized fluid collections are present to suggest abscess. Small cystic foci of the pancreas body and tail appear similar to prior. Spleen: Normal. No splenomegaly. Adrenals: Normal. No mass. Kidneys and ureters: Normal. No hydronephrosis. Stomach and bowel: There is increased distention of small bowel loops suggestive of ileus. There is also mild distention of portions of the colon also with air fluid levels. No obstruction. Appendix: No evidence of appendicitis. Retroperitoneal space: Fluid in the upper abdomen appears similar to the prior study and extends both into the peritoneum and retroperitoneum. PELVIS: Bladder: Unremarkable as visualized. Reproductive: Unremarkable as visualized. ABDOMEN and PELVIS: Intraperitoneal space: Normal. No free air. No significant fluid collection. Bones/joints: No acute fracture. No dislocation. Soft tissues: Unremarkable. Vasculature: Normal. No abdominal aortic aneurysm. Lymph nodes: Normal. No enlarged lymph nodes. IMPRESSION: 1. Increased size of the pleural effusions which are now moderate to large in size with increased atelectasis in the lower lobes. 2. Similar appearance of the peripancreatic and retroperitoneal fluid. 3. Similar appearance of colonic dilation with new small bowel distention likely reflective of worsening ileus. Dictated and Authenticated by: Juan Antonio Reyes MD. Ordering:KIM Hurst MD
--- NOTE | 2018-06-14 16:47 | SCONE_ITS ---
Addendum entered and electronically signed by Haresh Vásquez III, DO 06/14/18 17:55: case dw readiology and his ct showed ?8-10cm dilation pt in no pain nor distress Addendum entered and electronically signed by Haresh Vásquez III, DO 06/14/18 17:00: The cecum was noted on the initial x-ray at 12 cm will need to be watched closely. Original Note: Documented by User: CRISTÓBAL Camilo 06/14/18 16:49 Date of service: 06/14/18 Time of Service: 16:45 History of Present Illness Chief Complaint: abdominal distention Narrative: Patient had been seen as a surgical consult for his acute pancreatitis and patient had been improving until was called approximately 1 hour ago. Patient was noted to have considerable change in his abdominal exam with abdominal distention [facility] Medical History COPD (chronic obstructive pulmonary disease) (Chronic) Adjustment disorder with anxiety (Acute) Dyspepsia (Acute) Malignant neoplasm of right lung (Acute) Tubular adenoma of colon (Acute) Alcohol abuse (Chronic) Anxiety (Chronic) Surgical History History of lung biopsy (Resolved) History of surgery on upper extremity (Resolved) colonoscopy (01/19/15) Family History Father Essential hypertension Hyperlipidemia Paternal Uncle Heart disease Stroke Cerebral hemorrhage Hypertension Brother Cancer Social History adopted: No foster care: No household members: family housing: house lives independently: Yes current occupation: not working Smoking/Tobacco Use Status: Former Tobacco Use alcohol intake: current alcohol intake frequency: 3 or more drinks per day Alcohol type: beer and wine substance use type: does not use seatbelt use: always drive intox or ride w/ intox 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 water heater temp set < 120 deg: Yes working smoke detector in home: Yes fire extinguisher in home: Yes carbon monox detector in home: Yes firearms in home: Yes Results Last Vital Signs Temp 36.9 C 06/14/18 11:40 Pulse 85 06/14/18 15:00 Resp 18 06/14/18 11:40 BP 160/94 H 06/14/18 11:40 Pulse Ox 95 06/14/18 11:40 Labs : 06/14/18 06:30 06/14/18 06:30 Laboratory Results - last 24 hr 06/14/18 06/14/18 06/14/18 06:30 06:30 06:30 WBC 7.93 RBC 3.54 L Hgb 12.0 L Hct 35.9 L MCV 101.4 H MCH 33.9 H MCHC 33.4 RDW 11.4 L Plt Count 144 MPV 10.4 Immature Gran % 0.0 Neutrophils % 77.0 Lymphocytes % 4.0 Monocytes % 11.0 Eosinophils % 0.0 Basophils % 0.0 Absolute Neutrophils 6.74 H Band Neutrophils 8.0 Absolute Lymphocytes 0.32 L Absolute Monocytes 0.87 H Absolute Eosinophils 0.00 Absolute Basophils 0.00 Differential Comment RBC Morphology See below Polychromasia Present Sodium 138 Potassium 3.3 L Chloride 103 Carbon Dioxide 25.2 Anion Gap 9.8 BUN 9 Creatinine 0.66 L Estimated GFR/1.73 m2 >= 60.00 Glucose 136 H Calcium 7.6 L Magnesium 2.5 H Total Bilirubin 0.8 Conjugated Bilirubin 0.33 H AST 31 ALT 48 Alkaline Phosphatase 112 Total Protein 5.7 L Albumin 1.9 L Documented by User: Haresh Vásquez III, 06/14/18 16:57 Assessment and Plan (1) Ileus: Start date: 06/14/18 Start time: 16:54 Current visit: Yes Status: Acute Patient has CAT scan and physical exam consistent with an ileus secondary to his acute pancreatitis would drop an NG tube and patient tolerated well. (2) Colon distention: Start date: 06/14/18 Start time: 16:55 Current visit: Yes Status: Acute Patient had colonic distention noted throughout also consistent with acute pancreatitis colonic ileus would recommend NG tube for proximal small bowel decompression possible need for rectal tube for the amount of air. The colon measures approximately 8 cm in diameter and will have to be monitored possible repeat CT within 24-48 hours. There was consistent pancreatitis change changes in the retroperitoneum with fluid and ileus as noted (3) Pancreatitis, acute: Start date: 06/14/18 Start time: 16:56 Current visit: Yes Status: Acute Continue current treatment Qualifiers: Pancreatitis type: unspecified pancreatitis type Acute pancreatitis complication: no infection or necrosis Qualified Code(s): K85.90 - Acute pa ncreatitis without necrosis or infection, unspecified Review of Systems Constitutional Reports as per HPI Gastrointestinal Reports as per HPI and Reports bloating PFS Medical History COPD (chronic obstructive pulmonary disease) (Chronic) Adjustment disorder with anxiety (Acute) Dyspepsia (Acute) Malignant neoplasm of right lung (Acute) Tubular adenoma of colon (Acute) Alcohol abuse (Chronic) Anxiety (Chronic) Surgical History History of lung biopsy (Resolved) History of surgery on upper extremity (Resolved) colonoscopy (01/19/15) Family History Father Essential hypertension Hyperlipidemia Paternal Uncle Heart disease Stroke Cerebral hemorrhage Hypertension Brother Cancer Social History adopted: No foster care: No household members: family housing: house lives independently: Yes current occupation: not working Smoking/Tobacco Use Status: Former Tobacco Use alcohol intake: current alcohol intake frequency: 3 or more drinks per day Alcohol type: beer and wine substance use type: does not use seatbelt use: always drive intox or ride w/ intox 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
[2018-06-14] MEDS: Lidocaine 2% Jelly 6 ML SYR (17:06)
[2018-06-14] MEDS: Acetaminophen 650 MG SUPP PR (22:34)
[2018-06-15] VITALS (72 sets, daily range): BP systolic 121–166; BP diastolic 82–109; PULSE 77–107; RESP 14–33; TEMP 36.8–37.6; O2SAT 87–100
[2018-06-15] MEDS: LORazepam 1 MG TAB PO/SL ×4 (00:13→20:37)
--- NOTE | 2018-06-15 02:39 | NUR.NOTE ---
At approx 02:30, patient's 02 desaturation alarm went off and when this RN entered room patient had his 02 nasal cannula off and his NG tube pulled out of his nare and in his hand. Sorry Hon, he said I just couldn't stand it no more. This RN reviewed how helpful NG tube is to decompression of stomach. Pt continued to insist we leave it out for tonight so I can get some sleep and said he'd consider re-inserting it tomorrow morning. Nursing Note:
[2018-06-15] MEDS: POTASSIUM CHLORIDE/0.9% NACL 1,000 ML 150 MEQ IV ×2 (05:25→15:14)
[2018-06-15] MEDS: Normal Saline Flush 10 ML SYR IVP ×3 (05:43→20:39)
--- NOTE | 2018-06-15 07:11 | PGE_ITS ---
Date of Service Date of service: 06/15/18 Time of Service: 07:09 Assessment and Plan (1) Colon distention: Start date: 06/15/18 Start time: 07:12 Current visit: Yes Status: Acute will consider c-scope decompression due to pt noncompliance with NGT (2) Ileus: Start date: 06/15/18 Start time: 07:13 Current visit: Yes Status: Acute NGT (3) Pancreatitis, acute: Start date: 06/15/18 Start time: 07:14 Current visit: Yes Status: Acute cont treATMENT Qualifiers: Pancreatitis type: unspecified pancreatitis type Acute pancreatitis complication: no infection or necrosis Qualified Code(s): K85.90 - Acute pancreatitis without necrosis or infection, unspecified Subjective Patient reports: no new complaints and pain is less Interval history since last seen: pt was noncompliant overnight and discontinued his NGT Exam Const General: no acute distress Nutritional Appearance: thin Limitations: altered mental status GI Inspection: distended Palpation: firm Percussion: tympanic to percussion Objective Objective Clinical Data: Abnormal lab results 06/14/18 06/14/18 06/14/18 Range/Units 06:30 06:30 06:30 RBC 3.54 L (4.50-6.00) m/cumm Hgb 12.0 L (13.5-17.5) g/dL Hct 35.9 L (40.0-50.0) % MCV 101.4 H (80-95) fL MCH 33.9 H (27.0-33.0) pg RDW 11.4 L (11.8-14.1) % Absolute Neutrophils 6.74 H (1.2-6.7) k/cumm Absolute Lymphocytes 0.32 L (1.2-3.4) k/cumm Absolute Monocytes 0.87 H (0.11-0.7) k/cumm Potassium 3.3 L (3.5-5.1) mmol/L Creatinine 0.66 L (0.70-1.30) mg/dL Glucose 136 H (70-100) mg/dL Calcium 7.6 L (8.5-10.1) mg/dL Magnesium 2.5 H (1.8-2.4) mg/dL Conjugated Bilirubin 0.33 H (0.00-0.20) mg/dL Total Protein 5.7 L (6.4-8.2) g/dL Albumin 1.9 L (3.4-5.0) g/dL Vital Signs Temperature 36.8 C 06/15/18 05:20 Temperature Source Temporal Artery Scan 06/15/18 05:20 Pulse 97 H 06/15/18 05:22 Pulse Rhythm Regular 06/12/18 08:00 Pulse 95 H 06/15/18 05:22 Respiratory Rate 22 06/15/18 05:22 Respiratory Effort 06/15/18 05:20 Respiratory Depth Shallow 06/15/18 05:20 Respiratory Pattern Tachypnea 06/15/18 05:20 Blood Pressure 163/101 H 06/15/18 05:22 Blood Pressure Mean 115 06/15/18 05:22 Blood Pressure Position Supine 06/15/18 05:20 Pulse Oximetry 91 L 06/15/18 05:22 Oxygen Delivery Method Nasal Cannula 06/15/18 05:20 Oxygen Flow Rate 2 06/15/18 05:20 Pain Level 5 06/15/18 05:39 Comment 06/11/18 12:00 Intake & Output 06/14/18 06/14/18 06/15/18 11:59 23:59 11:59 Intake Total 900 / 3241.2 2341.2 / 3241.2 1000 / 1000 Output Total 575 / 2200 1625 / 2200 575 / 575 Balance 325 / 1041.2 716.2 / 1041.2 425 / 425 Weight 67.2 kg 73.1 kg 74.6 kg Intake: IV 900 / 3091.2 2191.2 / 3091.2 1000 / 1000 Oral 150 / 150 Output: Gastric Drainage 350 / 350 Left Nare 350 / 350 Urine 575 / 1850 1275 / 1850 575 / 575 Other: Urine Color Light [place] Yellow Dark [place] Urine Appearance Clear Clear Clear Urine Odor Normal Comment lomax cath in place draining light morenita urine lomax cath in place draining light morenita urine Gastric Occult Blood Left Nare Positive Voiding Methods Urinal Bedside Commode Laboratory Results WBC 7.93 k/cumm (4.4-10.8) 06/14/18 06:30 RBC 3.54 m/cumm (4.50-6.00) L 06/14/18 06:30 Hgb 12.0 g/dL (13.5-17.5) L 06/14/18 06:30 Hct 35.9 % (40.0-50.0) L 06/14/18 06:30 MCV 101.4 fL (80-95) H 06/14/18 06:30 MCH 33.9 pg (27.0-33.0) H 06/14/18 06:30 MCHC 33.4 g/dL (32.0-36.0) 06/14/18 06:30 RDW 11.4 % (11.8-14.1) L 06/14/18 06:30 Plt Count 144 x1000/uL (130-400) 06/14/18 06:30 MPV 10.4 fL (8.0-11.0) 06/14/18 06:30 Immature Gran % 0.0 06/14/18 06:30 Neutrophils % 77.0 06/14/18 06:30 Lymphocytes % 4.0 06/14/18 06:30 Monocytes % 11.0 06/14/18 06:30 Eosinophils % 0.0 06/14/18 06:30 Basophils % 0.0 06/14/18 06:30 Absolute Neutrophils 6.74 k/cumm (1.2-6.7) H 06/14/18 06:30 Band Neutrophils 8.0 % 06/14/18 06:30 Absolute Lymphocytes 0.32 k/cumm (1.2-3.4) L 06/14/18 06:30 Absolute Monocytes 0.87 k/cumm (0.11-0.7) H 06/14/18 06:30 Absolute Eosinophils 0.00 k/cumm (0.0-0.7) 06/14/18 06:30 Absolute Basophils 0.00 k/cumm (0.0-0.2) 06/14/18 06:30 Differential Comment 06/14/18 06:30 RBC Morphology See below 06/14/18 06:30 Polychromasia Present 06/14/18 06:30 PT 9.5 sec (9.3-11.0) 06/10/18 06:25 INR 1.0 (0.9-1.1) 06/10/18 06:25 Sodium 138 mmol/L (136-145) 06/14/18 06:30 Potassium 3.3 mmol/L (3.5-5.1) L 06/14/18 06:30 Chloride 103 mmol/L (98-107) 06/14/18 06:30 Carbon Dioxide 25.2 mmol/L (21.0-32.0) 06/14/18 06:30 Anion Gap 9.8 mmol/L (3-11) 06/14/18 06:30 BUN 9 mg/dL (7-18) 06/14/18 06:30 Creatinine 0.66 mg/dL (0.70-1.30) L 06/14/18 06:30 Estimated GFR/1.73 m2 >= 60.00 (mL/min/1.73m2) 06/14/18 06:30 Glucose 136 mg/dL (70-100) H 06/14/18 06:30 Calcium 7.6 mg/dL (8.5-10.1) L 06/14/18 06:30 Magnesium 2.5 mg/dL (1.8-2.4) H 06/14/18 06:30 Total Bilirubin 0.8 mg/dL (0.2-1.0) 06/14/18 06:30 Conjugated Bilirubin 0.33 mg/dL (0.00-0.20) H 06/14/18 06:30 AST 31 U/L (15-37) 06/14/18 06:30 ALT 48 U/L (12-78) 06/14/18 06:30 Alkaline Phosphatase 112 U/L (46-116) 06/14/18 06:30 Troponin I < 0.02 ng/mL (0.00-0.06) 06/09/18 10:30 Total Protein 5.7 g/dL (6.4-8.2) L 06/14/18 06:30 Albumin 1.9 g/dL (3.4-5.0) L 06/14/18 06:30 Lipase 766 U/L (73-393) H 06/13/18 06:10 Urine Color Yellow (Yellow) 06/09/18 21:35 Urine Clarity Clear 06/09/18 21:35 Urine pH 7.0 (5-8) 06/09/18 21:35 Ur Specific [place] 1.015 (1.005-1.025) 06/09/18 21:35 Urine Protein Negative mg/dL (Negative) 06/09/18 21:35 Urine Ketones 40 mg/dL (Negative) H 06/09/18 21:35 Urine Blood Negative (Negative) 06/09/18 21:35 Urine Nitrite Negative (Negative) 06/09/18 21:35 Urine Bilirubin Negative (Negative) 06/09/18 21:35 Urine Urobilinogen 0.2 EU/dL (Up TO 0.2) 06/09/18 21:35 Ur Leukocyte Esterase Negative (Negative) 06/09/18 21:35 Urine Glucose Negative mg/dL (Negative) 06/09/18 21:35 Hepatitis A IgM Ab Negative (NEGAT) 06/09/18 11:30 Hep Bs Antigen Negative (NEGAT) 06/09/18 11:30 Hep B Core Total Ab Negative (NEGAT) 06/09/18 11:30 Hepatitis C Antibody Negative (NEGAT) 06/09/18 11:30
[2018-06-15 07:31] LABS: Abs Immature Grans 0.09 k/cumm (0.0-0.09); HGB 12.3 g/dL (13.5-17.5); Mean Corp. HGB Concentration 33.2 g/dL (32.0-36.0); Mean Corpuscular Hemoglobin 33.4 pg (27.0-33.0); Mean Corpuscular Volume 100.5 fL (80-95); Mean Platelet Volume 10.6 fL (8.0-11.0); Platelet Count 188 x1000/uL (130-400); RBC 3.68 m/cumm (4.50-6.00); RBC Distribution Width 11.5 % (11.8-14.1); White Blood Cell Count 8.36 k/cumm (4.4-10.8)
[2018-06-15 07:37] LABS: ALT 39 U/L (12-78); AST 30 U/L (15-37); Albumin 1.8 g/dL (3.4-5.0); Alkaline Phosphatase 123 U/L (46-116); Anion Gap 8.6 mmol/L (3-11); BUN 7 mg/dL (7-18); Bilirubin, Direct 0.35 mg/dL (0.00-0.20); Bilirubin, Total 0.8 mg/dL (0.2-1.0); CO2 26.4 mmol/L (21.0-32.0); CREATININE 0.58 mg/dL (0.70-1.30); Calcium 7.5 mg/dL (8.5-10.1); Chloride 102 mmol/L (98-107); Glucose 82 mg/dL (70-100); Magnesium 2.4 mg/dL (1.8-2.4); Potassium 3.4 mmol/L (3.5-5.1); Sodium 137 mmol/L (136-145); Total Protein 5.5 g/dL (6.4-8.2)
[2018-06-15 08:05] LABS: Absolute Eosinophil Count 0.08 k/cumm (0.0-0.7); Absolute Lymphocyte Count 0.25 k/cumm (1.2-3.4); Absolute Monocyte Count 1.34 k/cumm (0.11-0.7); Absolute Neutrophil Count 6.69 k/cumm (1.2-6.7); Diff Comment Manual Differential
[2018-06-15 08:06] LABS: RBC Morphology Normal
[2018-06-15] MEDS: FLUCONAZOLE 200 MG/100 ML BAG 100 MG IVPB (09:35)
[2018-06-15] MEDS: Pantoprazole 40 MG VIAL IVP ×2 (09:49→20:39)
[2018-06-15] MEDS: Nicotine 21 MG/24 HR PATCH TD (09:49)
[2018-06-15] MEDS: Budesonide/Formoterol 160/4.5 6 GM 60 PUFF INH IH ×2 (09:54→20:38)
--- NOTE | 2018-06-15 10:56 | W.PM.OP ---
Date of service: 06/15/18 Time of Service: 10:56 Operative Note DATE OF PROCEDURE: 06/15/18 PRE-OP DIAGNOSIS: colonic distention/pt non compliance POST-OP DIAGNOSIS: same PROCEDURE: decompress colonoscopy SURGEON: Haresh Vásquez III ASSISTING SURGEON: Sasha Leach ANESTHESIA: MAC ESTIMATED BLOOD LOSS: 0 PATHOLOGY: none sent COMPLICATIONS: None Patient was transported to: ICU Indications: Patient had significant colon distention seen on x-ray and CAT scan yesterday this morning did not seem to improve and patient was noncompliant with NG tube ruling out overnight. Due to the concern for colonic distention and patient's noncompliance with our conservative treatment it decision to do more definitive decompression of the colon was made at this time. The risk benefits and alternatives were discussed with patient and he consented. Procedure Description: After informed consent was obtained the patient was taken to the procedure room and placed in a left decubitous position. Monitors were applied and a time out was done. The patients name, date of , procedure, allergies to medications and metal in their body was reviewed. The patient was then sedated. Once sedated and comfortable a rectal exam was done. External exam was normal. Internal exam revealed a normal sphincter tone and no palpable masses. The scope was then introduced and retrofelexed. no internal hemorrhoids were identified. The scope was then advanced to the cecum some difficulty at [address] Corado assited to advance past this point (the pt was also repositioned) due to pt not being preped. The TI and appendiceal orifice were identified. The prep was not done. The scope was then slowly retracted over 10 minutes back into the rectum, suctioning and significantly decreasing the abd distention. The scope was removed and the patient was woken up and taken back to Same day surgery in stable condition. The patient tolerated the procedure well and there were no immediate complications.
[2018-06-15] MEDS: POTASSIUM CHLORIDE 20 MEQ/100 ML BAG 50 MEQ IVPB ×2 (11:12→14:29)
--- NOTE | 2018-06-15 11:29 | W.NUTCONSULT ---
Date of service: 06/15/18 Time of Service: 11:29 Nutritional Consult ASSESSMENT: Mr. Gimenez is admitted with pancreatitis and an ileus. He is s/p decompression of his colon. His admission weight is 65.1 kg and has been increasing likely related to his medical situation. His BMI using his admission weight is 21.5 kg/m2 which is WNL. His estimated energy needs are approximately 1700 kcal/day (REE x 1.2). His estimated protein needs are 65g to 78 g/day (1.0-1.2 g/kg). His estimated fluid needs are 1950 -2275 ml/day (20 ml-35 ml/kg/day). Consult requested for TPN recommendations. NUTRITIONAL DIAGNOSIS: Inability to take oral foods and fluids related to ileus. INTERVENTION: If continued prolonged NPO is anticipated would agree with TPN initiation to prevent malnutrition. Recommend 2.0L of amino acids 5%, 15% dextrose and fat emulsion 20%, 250 ml daily to meet his nutritional needs until he his able to take nutrients enterally. MONITORING AND EVALUATION: 1. Will monitor for advance of PO and/or tolerance to TPN. Will monitor weight. 2. Will evaluate nutrition care plan ongoing and adjust as needed. Time Spent in Nutritional Counseling and Treatment: FRANK
--- NOTE | 2018-06-15 11:40 | DI.RAD_ITS ---
SYMPTOM/DIAGNOSIS: ABD DISTENSION PORTABLE ABDOMEN: Comparison is made with 06/14/18. A nasogastric tube is now seen projecting in the stomach. Bilateral pleural effusions are again noted. There has been interval decrease in the colonic distension when compared with the previous exam. Mild small bowel dilatation is also seen. IMPRESSION: Significant improvement in colonic distension.
--- NOTE | 2018-06-15 14:03 | PDOC.CMPRO ---
- If Service Date Differs Date of service: 06/15/18 Time of Service: 14:03 Care Management Progress Note S/O: Iggy is lying in bed this afternoon when this teletypewriter installer visits. His nurse is shaving his face when this teletypewriter installer visits and Iggy states that he is doing alright. Iggy states that he would like some soda pop though is aware that he is not able to have this at this time. A: 63 y/o male admitted 06/09/18 for Pancreatitis, Alcoholism P: Iggy will return home with no additional anticipated services. He will F/U with PCP and plan of care as prescribed. Iggy will also F/U with Shweta Saleh, [facility], whom sees him in the community, as well as Brando Dobson, therapist,.Iggy's mom Vee to transport when ready.
--- NOTE | 2018-06-15 14:12 | CMPROGNOTE_ITS ---
- If Service Date Differs Date of service: 06/15/18 Time of Service: 14:03 Care Management Progress Note S/O: Iggy is lying in bed this afternoon when this ghost writer visits. His nurse is shaving his face when this ghost writer visits and Iggy states that he is doing alright. Iggy states that he would like some soda pop though is aware that he is not able to have this at this time. A: 63 y/o male admitted 06/09/18 for Pancreatitis, Alcoholism P: Iggy will return home with no additional anticipated services. He will F/U with PCP and plan of care as prescribed. Iggy will also F/U with Shweta Saleh, [facility], whom sees him in the community, as well as Brando Dobson, therapist,.Iggy's mom Vee to transport when ready.
[2018-06-15] MEDS: Ondansetron 4 MG/2 ML VIAL IVP (15:43)
--- NOTE | 2018-06-15 19:44 | PGE_ITS ---
Date of Service Date of service: 06/15/18 Time of Service: 19:42 Assessment and Plan (1) Ileus: Current visit: Yes Status: Acute s/p colonoscopy today with significant improvement of colonic distention. Likely due to pancreatitis. Continue NPO status. Starting TPN. (2) Pancreatitis, acute: Current visit: Yes Status: Acute Due to alcohol. No evidence of cholelithiasis. Starting TPN, continue IVF. Pleural effusions are likely due to pancreatitis Qualifiers: Pancreatitis type: unspecified pancreatitis type Acute pancreatitis complication: no infection or necrosis Qualified Code(s): K85.90 - Acute pancreatitis without necrosis or infection, unspecified (3) Melena: Current visit: Yes Status: Resolved Continue IV PPI BID. Continue NPO status. (4) Epigastric pain: Current visit: Yes Status: Acute Likely due to acute pancreatitis, but possibly due to gastritis, ?ulcer. Continue morphine. (5) Near syncope: Current visit: Yes Status: Acute Orthostatic on presentation. Continue IVF. US carotid and echo wnl. (6) Alcohol abuse: Current visit: No Status: Acute Continue CIWA; has prn ativan. Banana bag d/c'ed; thiamine ordered IV. (7) Chronic obstructive pulmonary disease: Current visit: No Status: Chronic At baseline. Finished azithromycin (8) DVT prophylaxis: Current visit: Yes Status: Acute SCD's + TEDs due to suspected GI bleed (9) Discharge planning issues: Current visit: Yes Status: Acute Full code Subjective Interval history since last seen: Really, I feel a lot better s/p decompressive colonoscopy this morning. Patient states he feels a lot better now. He has been able to pass some flatus. He denies any dizziness, chest pain, shortness of breath. He did report nausea earlier to the nursing, denies it now. Abdominal pain is better. Remains in the ICU, has NGT in place. Exam Narrative Exam Narrative: General: Middle aged male, laying in bed, abdomen significantly more distended, very minimal bowel sounds heard HEENT: EOMI, MMM Cardiovascular: RRR, no m/r/g Lungs: Diminished, clear to auscultation B Gastrointestinal: abdomen less distended, nontender on palpation, no bowel sounds Extremities: no edema, clubbing, or cyanosis, 1+ pedal pulses B. Objective Objective Clinical Data: Abnormal lab results 06/15/18 06/15/18 Range/Units 06:33 06:33 RBC 3.68 L (4.50-6.00) m/cumm Hgb 12.3 L (13.5-17.5) g/dL Hct 37.0 L (40.0-50.0) % MCV 100.5 H (80-95) fL MCH 33.4 H (27.0-33.0) pg RDW 11.5 L (11.8-14.1) % Absolute Lymphocytes 0.25 L (1.2-3.4) k/cumm Absolute Monocytes 1.34 H (0.11-0.7) k/cumm Potassium 3.4 L (3.5-5.1) mmol/L Creatinine 0.58 L (0.70-1.30) mg/dL Calcium 7.5 L (8.5-10.1) mg/dL Conjugated Bilirubin 0.35 H (0.00-0.20) mg/dL Alkaline Phosphatase 123 H (46-116) U/L Total Protein 5.5 L (6.4-8.2) g/dL Albumin 1.8 L (3.4-5.0) g/dL Vital Signs Temperature 36.8 C 06/15/18 15:30 Temperature Source Tympanic 06/15/18 15:30 Pulse 90 06/15/18 15:35 Pulse Rhythm Regular 06/12/18 08:00 Pulse 91 H 06/15/18 15:35 Respiratory Rate 22 06/15/18 15:35 Respiratory Effort Non-Labored 06/15/18 15:30 Respiratory Depth Normal 06/15/18 15:30 Respiratory Pattern Normal 06/15/18 15:30 Blood Pressure 152/98 H 06/15/18 15:35 Blood Pressure Mean 111 06/15/18 15:35 Blood Pressure Position Supine 06/15/18 15:30 Pulse Oximetry 91 L 06/15/18 15:35 Oxygen Delivery Method Room Air 06/15/18 15:30 Oxygen Flow Rate 0 06/15/18 15:30 Pain Level 8 06/15/18 17:51 Comment 06/11/18 12:00 Intake & Output 06/14/18 06/15/18 06/15/18 23:59 11:59 23:59 Intake Total 2341.2 / 3241.2 1100 / 3311.2 2211.2 / 3311.2 Output Total 1625 / 2200 725 / 740 15 / 740 Balance 716.2 / 1041.2 375 / 2571.2 2196.2 / 2571.2 Weight 73.1 kg 74.6 kg Intake: IV 2191.2 / 3091.2 1100 / 3311.2 2211.2 / 3311.2 Oral 150 / 150 Output: Gastric Drainage 350 / 350 150 / 150 Left Nare 350 / 350 150 / 150 Urine 1275 / 1850 575 / 575 Stool Other: Urine Color Yellow Dark [place] Urine Appearance Clear Clear Comment lomax cath in place draining light [place] urine lomax cath in place draining light [place] urine lomax cath in place draining medium yellow urine Stool Characteristics Liquid Mucoid Gastric Occult Blood Left Nare Positive Voiding Methods Bedside Commode Laboratory Results WBC 8.36 k/cumm (4.4-10.8) 06/15/18 06:33 RBC 3.68 m/cumm (4.50-6.00) L 06/15/18 06:33 Hgb 12.3 g/dL (13.5-17.5) L 06/15/18 06:33 Hct 37.0 % (40.0-50.0) L 06/15/18 06:33 MCV 100.5 fL (80-95) H 06/15/18 06:33 MCH 33.4 pg (27.0-33.0) H 06/15/18 06:33 MCHC 33.2 g/dL (32.0-36.0) 06/15/18 06:33 RDW 11.5 % (11.8-14.1) L 06/15/18 06:33 Plt Count 188 x1000/uL (130-400) 06/15/18 06:33 MPV 10.6 fL (8.0-11.0) 06/15/18 06:33 Immature Gran % See Differential 06/15/18 06:33 Neutrophils % 75.0 06/15/18 06:33 Lymphocytes % 3.0 06/15/18 06:33 Monocytes % 16.0 06/15/18 06:33 Eosinophils % 1.0 06/15/18 06:33 Basophils % 0.0 06/15/18 06:33 Absolute Neutrophils 6.69 k/cumm (1.2-6.7) 06/15/18 06:33 Band Neutrophils 5.0 % 06/15/18 06:33 Absolute Lymphocytes 0.25 k/cumm (1.2-3.4) L 06/15/18 06:33 Absolute Monocytes 1.34 k/cumm (0.11-0.7) H 06/15/18 06:33 Absolute Eosinophils 0.08 k/cumm (0.0-0.7) 06/15/18 06:33 Absolute Basophils 0.00 k/cumm (0.0-0.2) 06/15/18 06:33 Differential Comment Manual differential 06/15/18 06:33 RBC Morphology Normal 06/15/18 06:33 Polychromasia Present 06/14/18 06:30 PT 9.5 sec (9.3-11.0) 06/10/18 06:25 INR 1.0 (0.9-1.1) 06/10/18 06:25 Sodium 137 mmol/L (136-145) 06/15/18 06:33 Potassium 3.4 mmol/L (3.5-5.1) L 06/15/18 06:33 Chloride 102 mmol/L (98-107) 06/15/18 06:33 Carbon Dioxide 26.4 mmol/L (21.0-32.0) 06/15/18 06:33 Anion Gap 8.6 mmol/L (3-11) 06/15/18 06:33 BUN 7 mg/dL (7-18) 06/15/18 06:33 Creatinine 0.58 mg/dL (0.70-1.30) L 06/15/18 06:33 Estimated GFR/1.73 m2 >= 60.00 (mL/min/1.73m2) 06/15/18 06:33 Glucose 82 mg/dL (70-100) D 06/15/18 06:33 Calcium 7.5 mg/dL (8.5-10.1) L 06/15/18 06:33 Magnesium 2.4 mg/dL (1.8-2.4) 06/15/18 06:33 Total Bilirubin 0.8 mg/dL (0.2-1.0) 06/15/18 06:33 Conjugated Bilirubin 0.35 mg/dL (0.00-0.20) H 06/15/18 06:33 AST 30 U/L (15-37) 06/15/18 06:33 ALT 39 U/L (12-78) 06/15/18 06:33 Alkaline Phosphatase 123 U/L (46-116) H 06/15/18 06:33 Troponin I < 0.02 ng/mL (0.00-0.06) 06/09/18 10:30 Total Protein 5.5 g/dL (6.4-8.2) L 06/15/18 06:33 Albumin 1.8 g/dL (3.4-5.0) L 06/15/18 06:33 Lipase 766 U/L (73-393) H 06/13/18 06:10 Urine Color Yellow (Yellow) 06/09/18 21:35 Urine Clarity Clear 06/09/18 21:35 Urine pH 7.0 (5-8) 06/09/18 21:35 Ur Specific [place] 1.015 (1.005-1.025) 06/09/18 21:35 Urine Protein Negative mg/dL (Negative) 06/09/18 21:35 Urine Ketones 40 mg/dL (Negative) H 06/09/18 21:35 Urine Blood Negative (Negative) 06/09/18 21:35 Urine Nitrite Negative (Negative) 06/09/18 21:35 Urine Bilirubin Negative (Negative) 06/09/18 21:35 Urine Urobilinogen 0.2 EU/dL (Up TO 0.2) 06/09/18 21:35 Ur Leukocyte Esterase Negative (Negative) 06/09/18 21:35 Urine Glucose Negative mg/dL (Negative) 06/09/18 21:35 Hepatitis A IgM Ab Negative (NEGAT) 06/09/18 11:30 Hep Bs Antigen Negative (NEGAT) 06/09/18 11:30 Hep B Core Total Ab Negative (NEGAT) 06/09/18 11:30 Hepatitis C Antibody Negative (NEGAT) 06/09/18 11:30 KUB: IMPRESSION: Significant improvement in colonic distension.
[2018-06-16] VITALS (50 sets, daily range): BP systolic 130–163; BP diastolic 76–102; PULSE 90–109; RESP 14–28; TEMP 36.5–37.6; O2SAT 86–96
[2018-06-16] MEDS: POTASSIUM CHLORIDE/0.9% NACL 1,000 ML 150 MEQ IV (01:51)
[2018-06-16] MEDS: LORazepam 1 MG TAB PO/SL ×3 (03:59→22:39)
[2018-06-16] MEDS: Normal Saline Flush 10 ML SYR IVP ×2 (05:51→19:50)
[2018-06-16 07:11] LABS: Abs Immature Grans 0.26 k/cumm (0.0-0.09); Absolute Basophil Count 0.01 k/cumm (0.0-0.2); Absolute Lymphocyte Count 0.44 k/cumm (1.2-3.4); Absolute Monocyte Count 1.93 k/cumm (0.11-0.7); Basophils % 0.1; Eosinophils % 0.4; HCT 36.4 % (40.0-50.0); HGB 12.1 g/dL (13.5-17.5); Immature Grans % 2.3; Lymphocytes % 3.9; Mean Corp. HGB Concentration 33.2 g/dL (32.0-36.0); Mean Corpuscular Hemoglobin 33.2 pg (27.0-33.0); Mean Platelet Volume 10.2 fL (8.0-11.0); Neutrophils % 76.3; Platelet Count 237 x1000/uL (130-400); RBC 3.64 m/cumm (4.50-6.00); RBC Distribution Width 11.6 % (11.8-14.1); White Blood Cell Count 11.38 k/cumm (4.4-10.8)
[2018-06-16 07:14] LABS: Absolute Eosinophil Count 0.05 k/cumm (0.0-0.7); Absolute Neutrophil Count 8.68 k/cumm (1.2-6.7)
[2018-06-16 07:37] LABS: ALT 32 U/L (12-78); AST 30 U/L (15-37); Albumin 1.6 g/dL (3.4-5.0); Alkaline Phosphatase 147 U/L (46-116); Anion Gap 7.5 mmol/L (3-11); BUN 7 mg/dL (7-18); Bilirubin, Direct 0.34 mg/dL (0.00-0.20); Bilirubin, Total 0.7 mg/dL (0.2-1.0); CO2 25.5 mmol/L (21.0-32.0); CREATININE 0.57 mg/dL (0.70-1.30); Calcium 7.6 mg/dL (8.5-10.1); Chloride 102 mmol/L (98-107); Glucose 76 mg/dL (70-100); Magnesium 2.3 mg/dL (1.8-2.4); Potassium 3.8 mmol/L (3.5-5.1); Sodium 135 mmol/L (136-145); Total Protein 5.1 g/dL (6.4-8.2)
--- NOTE | 2018-06-16 07:43 | PDOC.CMPRO ---
Care Management Progress Note S/O: Iggy started on TPN, he continues IVF and CIWA being managed with Ativan PRN. Iggy was lying in bed when CM met with him. He was pleasant in interaction and stated he was doing good though shared he felt he needed another withdrawal pill due to seeing colors. CM relayed this information to RN. Iggy was hiccuping but reported he had been doing so for days and did not even notice and was not bothered by it. CM will continue to follow. A: 63 y/o male admitted to [facility] 06/09/18 for Pancreatitis, Alcoholism P: Iggy will continue to be closely monitored in the ICU at this time. Iggy will return home with no additional anticipated services. He will follow up with his PCP and plan of care as prescribed. Iggy will also follow with Shweta Saleh, JONATHAN, whom sees him in the community, as well as Brando Dobson, therapist. Iggy's mom Vee to transport when ready.
--- NOTE | 2018-06-16 07:47 | CMPROGNOTE_ITS ---
Care Management Progress Note S/O: Iggy started on TPN, he continues IVF and CIWA being managed with Ativan PRN. Iggy was lying in bed when CM met with him. He was pleasant in interaction and stated he was doing good though shared he felt he needed another withdrawal pill due to seeing colors. CM relayed this information to RN. Iggy was hiccuping but reported he had been doing so for days and did not even notice and was not bothered by it. CM will continue to follow. A: 63 y/o male admitted to [facility] 06/09/18 for Pancreatitis, Alcoholism P: Iggy will continue to be closely monitored in the ICU at this time. Iggy will return home with no additional anticipated services. He will follow up with his PCP and plan of care as prescribed. Iggy will also follow with Shweta Saleh, JONATHAN, whom sees him in the community, as well as Brando Dobson, therapist. Iggy's mom Eve to transport when ready.
[2018-06-16 08:01] LABS: Diff Comment Agrees w/ Instrument; RBC Morphology Normal
[2018-06-16] MEDS: THIAMINE 100 MG in Normal Saline 100 ML 200 MG IVPB (08:55)
[2018-06-16] MEDS: Nicotine 21 MG/24 HR PATCH TD (08:56)
[2018-06-16] MEDS: Pantoprazole 40 MG VIAL IVP ×2 (08:56→19:45)
[2018-06-16] MEDS: FLUCONAZOLE 200 MG/100 ML BAG 100 MG IVPB (09:34)
[2018-06-16] MEDS: Potassium Chloride 20 MEQ TABCR PO (09:36)
[2018-06-16] MEDS: Budesonide/Formoterol 160/4.5 6 GM 60 PUFF INH IH ×2 (09:47→19:46)
[2018-06-16] MEDS: Acetaminophen 325 MG TAB PO ×2 (11:50→18:41)
[2018-06-16] MEDS: Oxazepam 10 MG CAP PO ×3 (11:51→19:48)
--- NOTE | 2018-06-16 12:13 | PGE_ITS ---
Date of Service Date of service: 06/16/18 Time of Service: 12:04 Assessment and Plan (1) Ileus: Current visit: Yes Status: Acute A\\ Ileus most likely secondary to alcoholic pancreatitis. He is slow to resolve as well. No acute abdomen at this time. P\\ continue NG decompression Reglan 10 mg [id number] D/C narcotic pain medications Up to chair Ambulate with NG clamped for 20 minutes at a time. Subjective Interval history since last seen: Mr. Urias states he is feeling better today after his colon being decompressed yesterday. He tells me he is passing flatus but his nurse has not heared anything. Minimal mucus stool. He had a colonoscopy 1 year ago that was normal. Colonoscopy yesterday for decompression. Bowel mucosa was healthy. No masses noted. There was a lot of air and liquid stool which was succioned. Exam GI Palpation: soft and nontender Auscultation: high-pitched sounds Objective Objective Clinical Data: Abnormal lab results 06/16/18 06/16/18 Range/Units 06:25 06:25 WBC 11.38 H D (4.4-10.8) k/cumm RBC 3.64 L (4.50-6.00) m/cumm Hgb 12.1 L (13.5-17.5) g/dL Hct 36.4 L (40.0-50.0) % MCV 100.0 H (80-95) fL MCH 33.2 H (27.0-33.0) pg RDW 11.6 L (11.8-14.1) % Absolute Neutrophils 8.68 H (1.2-6.7) k/cumm Absolute Lymphocytes 0.44 L (1.2-3.4) k/cumm Absolute Monocytes 1.93 H (0.11-0.7) k/cumm Sodium 135 L (136-145) mmol/L Creatinine 0.57 L (0.70-1.30) mg/dL Calcium 7.6 L (8.5-10.1) mg/dL Conjugated Bilirubin 0.34 H (0.00-0.20) mg/dL Alkaline Phosphatase 147 H (46-116) U/L Total Protein 5.1 L (6.4-8.2) g/dL Albumin 1.6 L (3.4-5.0) g/dL Vital Signs Temperature 99.1 F 06/16/18 10:48 Temperature Source Temporal Artery Scan 06/16/18 04:05 Pulse 95 H 06/16/18 10:00 Pulse Rhythm Regular 06/12/18 08:00 Pulse 97 H 06/16/18 10:01 Respiratory Rate 17 06/16/18 10:01 Respiratory Effort Non-Labored 06/16/18 04:05 Respiratory Depth Normal 06/16/18 04:05 Respiratory Pattern Normal 06/16/18 04:05 Blood Pressure 138/87 06/16/18 10:00 Blood Pressure Mean 98 06/16/18 10:00 Blood Pressure Position Supine 06/15/18 15:30 Pulse Oximetry 88 L 06/16/18 10:01 Oxygen Delivery Method Room Air 06/16/18 09:45 Oxygen Flow Rate 0 06/16/18 09:45 Pain Level 9 06/16/18 11:50 Comment 06/11/18 12:00 Intake & Output 06/15/18 06/16/18 06/16/18 23:59 11:59 23:59 Intake Total 3211.2 / 4311.2 Output Total 1815 / 2540 850 / 850 Balance 1396.2 / 1771.2 -850 / -850 Weight 164 lb 0.383 oz Intake: IV 3211.2 / 4311.2 Output: Gastric Drainage 200 / 350 0 / 0 Left Nare 200 / 350 0 / 0 Urine 1600 / 2175 850 / 850 Stool 15 / 15 Other: Urine Color Light [place] Yellow Urine Appearance Clear Clear Comment lomax cath in place. lomax cath in place. Stool Characteristics Liquid Mucoid Laboratory Results WBC 11.38 k/cumm (4.4-10.8) H D 06/16/18 06:25 RBC 3.64 m/cumm (4.50-6.00) L 06/16/18 06:25 Hgb 12.1 g/dL (13.5-17.5) L 06/16/18 06:25 Hct 36.4 % (40.0-50.0) L 06/16/18 06:25 MCV 100.0 fL (80-95) H 06/16/18 06:25 MCH 33.2 pg (27.0-33.0) H 06/16/18 06:25 MCHC 33.2 g/dL (32.0-36.0) 06/16/18 06:25 RDW 11.6 % (11.8-14.1) L 06/16/18 06:25 Plt Count 237 x1000/uL (130-400) 06/16/18 06:25 MPV 10.2 fL (8.0-11.0) 06/16/18 06:25 Immature Gran % 2.3 06/16/18 06:25 Neutrophils % 76.3 06/16/18 06:25 Lymphocytes % 3.9 06/16/18 06:25 Monocytes % 17.0 06/16/18 06:25 Eosinophils % 0.4 06/16/18 06:25 Basophils % 0.1 06/16/18 06:25 Absolute Neutrophils 8.68 k/cumm (1.2-6.7) H 06/16/18 06:25 Band Neutrophils 5.0 % 06/15/18 06:33 Absolute Lymphocytes 0.44 k/cumm (1.2-3.4) L 06/16/18 06:25 Absolute Monocytes 1.93 k/cumm (0.11-0.7) H 06/16/18 06:25 Absolute Eosinophils 0.05 k/cumm (0.0-0.7) 06/16/18 06:25 Absolute Basophils 0.01 k/cumm (0.0-0.2) 06/16/18 06:25 Differential Comment Agrees w/ instrument 06/16/18 06:25 RBC Morphology Normal 06/16/18 06:25 Polychromasia Present 06/14/18 06:30 PT 9.5 sec (9.3-11.0) 06/10/18 06:25 INR 1.0 (0.9-1.1) 06/10/18 06:25 Sodium 135 mmol/L (136-145) L 06/16/18 06:25 Potassium 3.8 mmol/L (3.5-5.1) 06/16/18 06:25 Chloride 102 mmol/L (98-107) 06/16/18 06:25 Carbon Dioxide 25.5 mmol/L (21.0-32.0) 06/16/18 06:25 Anion Gap 7.5 mmol/L (3-11) 06/16/18 06:25 BUN 7 mg/dL (7-18) 06/16/18 06:25 Creatinine 0.57 mg/dL (0.70-1.30) L 06/16/18 06:25 Estimated GFR/1.73 m2 >= 60.00 (mL/min/1.73m2) 06/16/18 06:25 Glucose 76 mg/dL (70-100) 06/16/18 06:25 Calcium 7.6 mg/dL (8.5-10.1) L 06/16/18 06:25 Magnesium 2.3 mg/dL (1.8-2.4) 06/16/18 06:25 Total Bilirubin 0.7 mg/dL (0.2-1.0) 06/16/18 06:25 Conjugated Bilirubin 0.34 mg/dL (0.00-0.20) H 06/16/18 06:25 AST 30 U/L (15-37) 06/16/18 06:25 ALT 32 U/L (12-78) 06/16/18 06:25 Alkaline Phosphatase 147 U/L (46-116) H 06/16/18 06:25 Troponin I < 0.02 ng/mL (0.00-0.06) 06/09/18 10:30 Total Protein 5.1 g/dL (6.4-8.2) L 06/16/18 06:25 Albumin 1.6 g/dL (3.4-5.0) L 06/16/18 06:25 Lipase 766 U/L (73-393) H 06/13/18 06:10 Urine Color Yellow (Yellow) 06/09/18 21:35 Urine Clarity Clear 06/09/18 21:35 Urine pH 7.0 (5-8) 06/09/18 21:35 Ur Specific [place] 1.015 (1.005-1.025) 06/09/18 21:35 Urine Protein Negative mg/dL (Negative) 06/09/18 21:35 Urine Ketones 40 mg/dL (Negative) H 06/09/18 21:35 Urine Blood Negative (Negative) 06/09/18 21:35 Urine Nitrite Negative (Negative) 06/09/18 21:35 Urine Bilirubin Negative (Negative) 06/09/18 21:35 Urine Urobilinogen 0.2 EU/dL (Up TO 0.2) 06/09/18 21:35 Ur Leukocyte Esterase Negative (Negative) 06/09/18 21:35 Urine Glucose Negative mg/dL (Negative) 06/09/18 21:35 Hepatitis A IgM Ab Negative (NEGAT) 06/09/18 11:30 Hep Bs Antigen Negative (NEGAT) 06/09/18 11:30 Hep B Core Total Ab Negative (NEGAT) 06/09/18 11:30 Hepatitis C Antibody Negative (NEGAT) 06/09/18 11:30
[2018-06-16] MEDS: Metoclopramide 10 MG TAB PO ×2 (15:49→19:47)
--- NOTE | 2018-06-16 16:02 | W.PM.PROGNOT ---
Date of Service Date of service: 06/16/18 Time of Service: 16:04 Assessment and Plan (1) Ileus: Current visit: Yes Status: Acute In setting of acute pancreatitis - distention improved post colonic distention via CScope 06/15. Continue NGT, NPO - for PICC line and TPN when available. Initiated Reglan following discussion with surgery. Monitor symptoms carefully. (2) Pancreatitis, acute: Current visit: Yes Status: Acute In setting of ETOH abuse. Continue IVFs - currently limited on oral intake due to Ileus. TPN ordered but limited this weekend. Lipase improved. Qualifiers: Pancreatitis type: unspecified pancreatitis type Acute pancreatitis complication: no infection or necrosis Qualified Code(s): K85.90 - Acute pancreatitis without necrosis or infection, unspecified (3) Alcohol abuse: Current visit: No Status: Acute Maintain on CIWA protocol and start standing Oxazepam. (4) Melena: Current visit: Yes Status: Resolved Continue IV PPI on a BID basis. Patient certainly at risk for gastritis and UGI source given alcohol history. Monitor Hgb. Check stool for occult blood. (5) COPD (chronic obstructive pulmonary disease): Current visit: No Status: Chronic Appears quiescent. Continue Home Inhaler therapy with Tiotropium, IGC/LABA. (6) Thrush: Current visit: Yes Status: Acute Continue Nystatin. (7) DVT prophylaxis: Current visit: Yes Status: Acute SCDs Subjective Interval history since last seen: 63 year old man with a prior history of ETOH abuse, admitted from [facility] Emergency Department with a diagnosis of Acute Pancreatitis. Mr. Urias has a history of of non-oxygen dependent COPD, ETOH abuse, anxiety, and lung cancer s/p radiation. He presented to the ED complaining of shortness of breath and epigastric pain. His lipase was found to be elevated and his imaging showed evidence of acute pancreatitis - he was also noted to have evidence of an ileus by CT of the abdomen with colonic distention without obstruction. He was also noted to have melena by report. The patient has been going through treatment for acute pancreatitis successfully with appropriate decrease in lipase. However due to worsening abdominal pain and distention a repeat CT was obtained showing worsening colonic dilation. He was intolerant of NGT placement and underwent a colonoscopy for decompression on 06/15. He now has an NGT in place and seems to be improved. The patient also is reportedly a daily 6 pack beer drinking, with his last drink coming on the morning of admission. He has been maintained on the CIWA protocol. No other events repoted. Remains afebrile. Exam Narrative Exam Narrative: General: Patient appears comfortable, AAOX3, NAD Neck: Supple CV: Regular, nontachycardic, S1S2, No rubs, murmurs, or gallops. Pulmonary: Clear to auscultation bilaterally, no crackles, wheezing, or rhonchi Abdomen: + Bowel Sounds but hypoactive, soft, distended, mildly diffusely tender. Vascular: No lower extremity edema Psych: Normal mood and affect. Objective Objective Clinical Data: Abnormal lab results 06/16/18 06/16/18 Range/Units 06:25 06:25 WBC 11.38 H D (4.4-10.8) k/cumm RBC 3.64 L (4.50-6.00) m/cumm Hgb 12.1 L (13.5-17.5) g/dL Hct 36.4 L (40.0-50.0) % MCV 100.0 H (80-95) fL MCH 33.2 H (27.0-33.0) pg RDW 11.6 L (11.8-14.1) % Absolute Neutrophils 8.68 H (1.2-6.7) k/cumm Absolute Lymphocytes 0.44 L (1.2-3.4) k/cumm Absolute Monocytes 1.93 H (0.11-0.7) k/cumm Sodium 135 L (136-145) mmol/L Creatinine 0.57 L (0.70-1.30) mg/dL Calcium 7.6 L (8.5-10.1) mg/dL Conjugated Bilirubin 0.34 H (0.00-0.20) mg/dL Alkaline Phosphatase 147 H (46-116) U/L Total Protein 5.1 L (6.4-8.2) g/dL Albumin 1.6 L (3.4-5.0) g/dL Vital Signs Temperature 37.3 C 06/16/18 10:48 Temperature Source Temporal Artery Scan 06/16/18 04:05 Pulse 95 H 06/16/18 10:00 Pulse Rhythm Regular 06/12/18 08:00 Pulse 97 H 06/16/18 10:01 Respiratory Rate 17 06/16/18 10:01 Respiratory Effort 06/16/18 12:00 Respiratory Depth Normal 06/16/18 12:00 Respiratory Pattern Normal 06/16/18 12:00 Blood Pressure 138/87 06/16/18 10:00 Blood Pressure Mean 98 06/16/18 10:00 Blood Pressure Position Supine 06/15/18 15:30 Pulse Oximetry 90 L 06/16/18 12:00 Oxygen Delivery Method Room Air 06/16/18 12:00 Oxygen Flow Rate 0 06/16/18 12:00 Pain Level 6 06/16/18 14:17 Comment 06/11/18 12:00 Intake & Output 06/15/18 06/16/18 06/16/18 23:59 11:59 23:59 Intake Total 3211.2 / 4311.2 Output Total 1815 / 2540 850 / 1550 700 / 1550 Balance 1396.2 / 1771.2 -850 / -1550 -700 / -1550 Weight 74.4 kg Intake: IV 3211.2 / 4311.2 Output: Gastric Drainage 200 / 350 0 / 0 Left Nare 200 / 350 0 / 0 Urine 1600 / 2175 850 / 1550 700 / 1550 Stool 15 / 15 Other: Urine Color Light [place] Yellow Yellow Urine Appearance Clear Clear Cloudy Comment lomax cath in place. lomax cath in place. Lomax Catheter. Stool Characteristics Liquid Mucoid Laboratory Results WBC 11.38 k/cumm (4.4-10.8) H D 06/16/18 06:25 RBC 3.64 m/cumm (4.50-6.00) L 06/16/18 06:25 Hgb 12.1 g/dL (13.5-17.5) L 06/16/18 06:25 Hct 36.4 % (40.0-50.0) L 06/16/18 06:25 MCV 100.0 fL (80-95) H 06/16/18 06:25 MCH 33.2 pg (27.0-33.0) H 06/16/18 06:25 MCHC 33.2 g/dL (32.0-36.0) 06/16/18 06:25 RDW 11.6 % (11.8-14.1) L 06/16/18 06:25 Plt Count 237 x1000/uL (130-400) 06/16/18 06:25 MPV 10.2 fL (8.0-11.0) 06/16/18 06:25 Immature Gran % 2.3 06/16/18 06:25 Neutrophils % 76.3 06/16/18 06:25 Lymphocytes % 3.9 06/16/18 06:25 Monocytes % 17.0 06/16/18 06:25 Eosinophils % 0.4 06/16/18 06:25 Basophils % 0.1 06/16/18 06:25 Absolute Neutrophils 8.68 k/cumm (1.2-6.7) H 06/16/18 06:25 Band Neutrophils 5.0 % 06/15/18 06:33 Absolute Lymphocytes 0.44 k/cumm (1.2-3.4) L 06/16/18 06:25 Absolute Monocytes 1.93 k/cumm (0.11-0.7) H 06/16/18 06:25 Absolute Eosinophils 0.05 k/cumm (0.0-0.7) 06/16/18 06:25 Absolute Basophils 0.01 k/cumm (0.0-0.2) 06/16/18 06:25 Differential Comment Agrees w/ instrument 06/16/18 06:25 RBC Morphology Normal 06/16/18 06:25 Polychromasia Present 06/14/18 06:30 PT 9.5 sec (9.3-11.0) 06/10/18 06:25 INR 1.0 (0.9-1.1) 06/10/18 06:25 Sodium 135 mmol/L (136-145) L 06/16/18 06:25 Potassium 3.8 mmol/L (3.5-5.1) 06/16/18 06:25 Chloride 102 mmol/L (98-107) 06/16/18 06:25 Carbon Dioxide 25.5 mmol/L (21.0-32.0) 06/16/18 06:25 Anion Gap 7.5 mmol/L (3-11) 06/16/18 06:25 BUN 7 mg/dL (7-18) 06/16/18 06:25 Creatinine 0.57 mg/dL (0.70-1.30) L 06/16/18 06:25 Estimated GFR/1.73 m2 >= 60.00 (mL/min/1.73m2) 06/16/18 06:25 Glucose 76 mg/dL (70-100) 06/16/18 06:25 Calcium 7.6 mg/dL (8.5-10.1) L 06/16/18 06:25 Magnesium 2.3 mg/dL (1.8-2.4) 06/16/18 06:25 Total Bilirubin 0.7 mg/dL (0.2-1.0) 06/16/18 06:25 Conjugated Bilirubin 0.34 mg/dL (0.00-0.20) H 06/16/18 06:25 AST 30 U/L (15-37) 06/16/18 06:25 ALT 32 U/L (12-78) 06/16/18 06:25 Alkaline Phosphatase 147 U/L (46-116) H 06/16/18 06:25 Troponin I < 0.02 ng/mL (0.00-0.06) 06/09/18 10:30 Total Protein 5.1 g/dL (6.4-8.2) L 06/16/18 06:25 Albumin 1.6 g/dL (3.4-5.0) L 06/16/18 06:25 Lipase 766 U/L (73-393) H 06/13/18 06:10 Urine Color Yellow (Yellow) 06/09/18 21:35 Urine Clarity Clear 06/09/18 21:35 Urine pH 7.0 (5-8) 06/09/18 21:35 Ur Specific [place] 1.015 (1.005-1.025) 06/09/18 21:35 Urine Protein Negative mg/dL (Negative) 06/09/18 21:35 Urine Ketones 40 mg/dL (Negative) H 06/09/18 21:35 Urine Blood Negative (Negative) 06/09/18 21:35 Urine Nitrite Negative (Negative) 06/09/18 21:35 Urine Bilirubin Negative (Negative) 06/09/18 21:35 Urine Urobilinogen 0.2 EU/dL (Up TO 0.2) 06/09/18 21:35 Ur Leukocyte Esterase Negative (Negative) 06/09/18 21:35 Urine Glucose Negative mg/dL (Negative) 06/09/18 21:35 Hepatitis A IgM Ab Negative (NEGAT) 06/09/18 11:30 Hep Bs Antigen Negative (NEGAT) 06/09/18 11:30 Hep B Core Total Ab Negative (NEGAT) 06/09/18 11:30 Hepatitis C Antibody Negative (NEGAT) 06/09/18 11:30
--- NOTE | 2018-06-16 18:05 | NUR.NOTE ---
NGT removed by patient who stated it was itchy and irritating his nose. Dr. Singh made aware. Nursing Note:
[2018-06-16] MEDS: POTASSIUM CHLORIDE/0.9% NACL 1,000 ML 100 MEQ IV (22:42)
[2018-06-17] VITALS (38 sets, daily range): BP systolic 100–148; BP diastolic 62–92; PULSE 87–104; RESP 19–30; TEMP 36.8–38; O2SAT 89–94
[2018-06-17] MEDS: Insulin Aspart 300 UNITS/3 ML PEN SC ×4 (00:27→18:23)
[2018-06-17] MEDS: LORazepam 1 MG TAB PO/SL ×4 (01:46→19:34)
[2018-06-17] MEDS: LORazepam 2 MG/ML VIAL IVP ×2 (02:15→10:00)
[2018-06-17] MEDS: Normal Saline Flush 10 ML SYR IVP ×4 (02:16→19:36)
[2018-06-17] MEDS: Acetaminophen 325 MG TAB PO ×3 (04:41→19:57)
[2018-06-17 07:35] LABS: Abs Immature Grans 0.39 k/cumm (0.0-0.09); Absolute Basophil Count 0.04 k/cumm (0.0-0.2); Absolute Lymphocyte Count 0.48 k/cumm (1.2-3.4); Absolute Monocyte Count 1.59 k/cumm (0.11-0.7); Absolute Neutrophil Count 11.55 k/cumm (1.2-6.7); Basophils % 0.3; Eosinophils % 0.1; HCT 34.3 % (40.0-50.0); HGB 11.5 g/dL (13.5-17.5); Immature Grans % 2.8; Lymphocytes % 3.4; Mean Corp. HGB Concentration 33.5 g/dL (32.0-36.0); Mean Corpuscular Hemoglobin 33.4 pg (27.0-33.0); Mean Corpuscular Volume 99.7 fL (80-95); Mean Platelet Volume 10.2 fL (8.0-11.0); Monocytes % 11.3; Neutrophils % 82.1; Platelet Count 255 x1000/uL (130-400); RBC 3.44 m/cumm (4.50-6.00); RBC Distribution Width 11.6 % (11.8-14.1); White Blood Cell Count 14.07 k/cumm (4.4-10.8)
--- NOTE | 2018-06-17 07:37 | PDOC.CMPRO ---
Care Management Progress Note S/O: Iggy continues to score high on the CIWA scale and is being monitored and treated per protocol. Iggy was sleeping soundly when CM attempted contact. CM will continue to follow. A: 63 y/o male admitted to [facility] 06/09/18 for Pancreatitis, Alcoholism P: Iggy will continue to be closely monitored at this time. He will likely return home with no additional anticipated services at this time. He will follow up with his PCP and plan of care as prescribed. Iggy will also follow with Shweta Saleh, JONATHAN, whom sees him in the community, as well as Brando Dobson, therapist. Iggy's mom Vee to transport when ready.
[2018-06-17 07:43] LABS: Anion Gap 4.8 mmol/L (3-11); BUN 12 mg/dL (7-18); CO2 27.2 mmol/L (21.0-32.0); CREATININE 0.68 mg/dL (0.70-1.30); Calcium 7.3 mg/dL (8.5-10.1); Chloride 102 mmol/L (98-107); Glucose 168 mg/dL (70-100); Magnesium 2.4 mg/dL (1.8-2.4); Potassium 3.7 mmol/L (3.5-5.1); Sodium 134 mmol/L (136-145)
[2018-06-17 07:47] LABS: Absolute Eosinophil Count 0.01 k/cumm (0.0-0.7)
--- NOTE | 2018-06-17 08:43 | DI.RAD_ITS ---
SYMPTOM/DIAGNOSIS: RULE OUT ASPIRATION. PORTABLE CHEST: Comparison is made with 14 Jun 2018. There has been interval increase in size of right pleural effusion. The lungs are not well inflated. There are increased basilar densities which could represent infiltrates vs posteriorly layering effusions. A PICC line is noted with the tip in the right atrium vs lower SVC. IMPRESSION: Limited exam, pulmonary inflation. Satisfactory placement of PICC line. Increased bilateral pleural effusions.
[2018-06-17 08:49] LABS: Diff Comment Agrees w/ Instrument; RBC Morphology Normal
[2018-06-17] MEDS: THIAMINE 100 MG in Normal Saline 100 ML 200 MG IVPB (09:06)
[2018-06-17] MEDS: Pantoprazole 40 MG VIAL IVP ×2 (09:07→19:37)
--- NOTE | 2018-06-17 09:11 | DI.VRAD_ITS ---
EXAM: XR Chest, 1 View EXAM DATE/TIME: 06/17/2018 8:19 AM CLINICAL HISTORY: 63 years old, male; Signs and symptoms; Other: Rule out aspiration TECHNIQUE: XR of the chest, 1 view. COMPARISON: CR XR CHEST 2V PA LATERAL 06/14/2018 11:05 AM FINDINGS: Tubes, catheters and devices: Left-sided PICC line terminates in the distal SVC. Lungs: Hazy opacities both mid and lower lung zones. Aspiration pneumonia cannot be excluded. Pleural space: Moderate left pleural effusion. Heart/Mediastinum: Unremarkable. No cardiomegaly. Bones/joints: Unremarkable. IMPRESSION: 1. Hazy opacities both mid and lower lung zones. Aspiration pneumonia cannot be excluded. 2. Moderate left pleural effusion. 3. Left-sided PICC line terminates in the distal SVC. Dictated and Authenticated by: Jyotsna Arriola MD. Ordering:TOM Green MD
[2018-06-17] MEDS: Oxazepam 10 MG CAP PO ×4 (09:15→19:35)
[2018-06-17] MEDS: Gabapentin 800 MG TAB PO ×3 (09:15→19:35)
[2018-06-17] MEDS: Metoclopramide 10 MG TAB PO ×3 (09:15→19:35)
[2018-06-17] MEDS: Budesonide/Formoterol 160/4.5 6 GM 60 PUFF INH IH ×2 (09:23→19:36)
--- NOTE | 2018-06-17 10:09 | PT.INNT ---
Date of service: 06/17/18 Time of Service: 10:09 PT Notes Nursing refused PT evaluation today. Patient was agitated, and had just received Ativan. Tomorrow will be more appropriate.
[2018-06-17 11:32] LABS: Bilirubin Negative (Negative); Blood Trace-lysed (Negative); Clarity Clear; Glucose Negative (Negative); Ketones Negative (Negative); Leukocyte Esterase Negative (Negative); Nitrite Negative (Negative); Specific Gravity 1.015 (1.005-1.025); Urobilinogen 0.2 EU/dL (Up TO 0.2); pH 7.5 (5-8)
[2018-06-17 12:16] LABS: Bacteria Few HPF (Negative); C & S Indicated? No; Casts Negative LPF (Negative); Crystals Negative HPF (Negative); Epithelial Cells Negative HPF (Negative); Mucus Negative (Negative); Other Cells Negative (Negative); WBC Negative HPF (0-5)
--- NOTE | 2018-06-17 12:50 | W.PM.PROGNOT ---
Date of Service Date of service: 06/17/18 Time of Service: 12:50 Assessment and Plan (1) Ileus: Current visit: Yes Status: Acute A\\ Small bowel and large bowel distention. Patient keeps pulling his NG tube out. He was decompressed with a colonoscope on Monday. Monday his abdomen was softer and less distended. Today abdomen is more distended again. Patient also in DT's. Plan is to have NG tube placed again. P\\ Patient on Reglan which doesn't seem to be helping. With his colonic distention maybe try Neostigmine and replace NG tube to decompress his small bowel. Subjective Interval history since last seen: Patient sleeping on Ativan. No Vomiting. No flatus per nursing staff. Patient pulled his NG tube out again. Exam GI Inspection: distended (increase distention from yesterday) Palpation: soft Percussion: tympanic to percussion Auscultation: absent bowel sounds Objective Objective Clinical Data: Abnormal lab results 06/17/18 06/17/18 06/17/18 Range/Units 07:10 07:10 11:00 WBC 14.07 H (4.4-10.8) k/cumm RBC 3.44 L (4.50-6.00) m/cumm Hgb 11.5 L (13.5-17.5) g/dL Hct 34.3 L (40.0-50.0) % MCV 99.7 H (80-95) fL MCH 33.4 H (27.0-33.0) pg RDW 11.6 L (11.8-14.1) % Absolute Neutrophils 11.55 H (1.2-6.7) k/cumm Absolute Lymphocytes 0.48 L (1.2-3.4) k/cumm Absolute Monocytes 1.59 H (0.11-0.7) k/cumm Sodium 134 L (136-145) mmol/L Creatinine 0.68 L (0.70-1.30) mg/dL Glucose 168 H D (70-100) mg/dL Calcium 7.3 L (8.5-10.1) mg/dL Urine Blood Trace-lysed H (Negative) Urine RBC 5-10 H (0-2) Vital Signs Temperature 100.4 F H 06/17/18 04:41 Temperature Source Temporal Artery Scan 06/17/18 01:40 Pulse 92 H 06/17/18 12:00 Pulse Rhythm Regular 06/12/18 08:00 Pulse 92 H 06/17/18 12:00 Respiratory Rate 19 06/17/18 12:00 Respiratory Effort Non-Labored 06/17/18 03:44 Respiratory Depth Shallow 06/17/18 03:44 Respiratory Pattern Normal 06/17/18 03:44 Blood Pressure 122/74 06/17/18 12:00 Blood Pressure Mean 86 06/17/18 12:00 Blood Pressure Position Supine 06/15/18 15:30 Pulse Oximetry 91 L 06/17/18 12:00 Oxygen Delivery Method Room Air 06/17/18 09:20 Oxygen Flow Rate 0 06/17/18 09:20 Pain Level 9 06/17/18 10:31 Comment 06/17/18 01:50 Intake & Output 06/16/18 06/17/18 06/17/18 23:59 11:59 23:59 Intake Total 1641 / 1641 1031 / 1031 Output Total 1945 / 2795 1130 / 1130 Balance -304 / -1154 -99 / -99 Weight 156 lb 11.979 oz Intake: IV 1541 / 1541 1031 / 1031 Oral 100 / 100 Output: Urine 1700 / 2550 1080 / 1080 Stool 245 / 245 50 / 50 Other: Urine Color Yellow Yellow Urine Appearance Cloudy Cloudy Comment Noel Catheter. Noel Catheter. Stool Occult Blood Negative Negative Stool Size Small Moderate Stool Characteristics Liquid Liquid Brown Brown Laboratory Results WBC 14.07 k/cumm (4.4-10.8) H 06/17/18 07:10 RBC 3.44 m/cumm (4.50-6.00) L 06/17/18 07:10 Hgb 11.5 g/dL (13.5-17.5) L 06/17/18 07:10 Hct 34.3 % (40.0-50.0) L 06/17/18 07:10 MCV 99.7 fL (80-95) H 06/17/18 07:10 MCH 33.4 pg (27.0-33.0) H 06/17/18 07:10 MCHC 33.5 g/dL (32.0-36.0) 06/17/18 07:10 RDW 11.6 % (11.8-14.1) L 06/17/18 07:10 Plt Count 255 x1000/uL (130-400) 06/17/18 07:10 MPV 10.2 fL (8.0-11.0) 06/17/18 07:10 Immature Gran % 2.8 06/17/18 07:10 Neutrophils % 82.1 06/17/18 07:10 Lymphocytes % 3.4 06/17/18 07:10 Monocytes % 11.3 06/17/18 07:10 Eosinophils % 0.1 06/17/18 07:10 Basophils % 0.3 06/17/18 07:10 Absolute Neutrophils 11.55 k/cumm (1.2-6.7) H 06/17/18 07:10 Band Neutrophils 5.0 % 06/15/18 06:33 Absolute Lymphocytes 0.48 k/cumm (1.2-3.4) L 06/17/18 07:10 Absolute Monocytes 1.59 k/cumm (0.11-0.7) H 06/17/18 07:10 Absolute Eosinophils 0.01 k/cumm (0.0-0.7) 06/17/18 07:10 Absolute Basophils 0.04 k/cumm (0.0-0.2) 06/17/18 07:10 Differential Comment Agrees w/ instrument 06/17/18 07:10 RBC Morphology Normal 06/17/18 07:10 Polychromasia Present 06/14/18 06:30 PT 9.5 sec (9.3-11.0) 06/10/18 06:25 INR 1.0 (0.9-1.1) 06/10/18 06:25 Sodium 134 mmol/L (136-145) L 06/17/18 07:10 Potassium 3.7 mmol/L (3.5-5.1) 06/17/18 07:10 Chloride 102 mmol/L (98-107) 06/17/18 07:10 Carbon Dioxide 27.2 mmol/L (21.0-32.0) 06/17/18 07:10 Anion Gap 4.8 mmol/L (3-11) 06/17/18 07:10 BUN 12 mg/dL (7-18) 06/17/18 07:10 Creatinine 0.68 mg/dL (0.70-1.30) L 06/17/18 07:10 Estimated GFR/1.73 m2 >= 60.00 (mL/min/1.73m2) 06/17/18 07:10 Glucose 168 mg/dL (70-100) H D 06/17/18 07:10 Calcium 7.3 mg/dL (8.5-10.1) L 06/17/18 07:10 Magnesium 2.4 mg/dL (1.8-2.4) 06/17/18 07:10 Total Bilirubin 0.7 mg/dL (0.2-1.0) 06/16/18 06:25 Conjugated Bilirubin 0.34 mg/dL (0.00-0.20) H 06/16/18 06:25 AST 30 U/L (15-37) 06/16/18 06:25 ALT 32 U/L (12-78) 06/16/18 06:25 Alkaline Phosphatase 147 U/L (46-116) H 06/16/18 06:25 Troponin I < 0.02 ng/mL (0.00-0.06) 06/09/18 10:30 Total Protein 5.1 g/dL (6.4-8.2) L 06/16/18 06:25 Albumin 1.6 g/dL (3.4-5.0) L 06/16/18 06:25 Lipase 766 U/L (73-393) H 06/13/18 06:10 Urine Color Yellow (Yellow) 06/17/18 11:00 Urine Clarity Clear 06/17/18 11:00 Urine pH 7.5 (5-8) 06/17/18 11:00 Ur Specific [place] 1.015 (1.005-1.025) 06/17/18 11:00 Urine Protein Negative mg/dL (Negative) 06/17/18 11:00 Urine Ketones Negative mg/dL (Negative) 06/17/18 11:00 Urine Blood Trace-lysed (Negative) H 06/17/18 11:00 Urine Nitrite Negative (Negative) 06/17/18 11:00 Urine Bilirubin Negative (Negative) 06/17/18 11:00 Urine Urobilinogen 0.2 EU/dL (Up TO 0.2) 06/17/18 11:00 Ur Leukocyte Esterase Negative (Negative) 06/17/18 11:00 Urine RBC 5-10 (0-2) H 06/17/18 11:00 Urine WBC Negative HPF (0-5) 06/17/18 11:00 Ur Epithelial Cells Negative HPF (Negative) 06/17/18 11:00 Urine Crystals Negative HPF (Negative) 06/17/18 11:00 Urine Bacteria Few HPF (Negative) 06/17/18 11:00 Urine Casts Negative LPF (Negative) 06/17/18 11:00 Urine Mucus Negative (Negative) 06/17/18 11:00 Urine Other Negative (Negative) 06/17/18 11:00 Ur Culture Indicated? No 06/17/18 11:00 Urine Glucose Negative mg/dL (Negative) 06/17/18 11:00 Hepatitis A IgM Ab Negative (NEGAT) 06/09/18 11:30 Hep Bs Antigen Negative (NEGAT) 06/09/18 11:30 Hep B Core Total Ab Negative (NEGAT) 06/09/18 11:30 Hepatitis C Antibody Negative (NEGAT) 06/09/18 11:30
--- NOTE | 2018-06-17 13:42 | PGE_ITS ---
Date of Service Date of service: 06/17/18 Time of Service: 13:41 Assessment and Plan (1) Pneumonia: Current visit: Yes Status: Acute Evidence of fever overnight prompting work-up, with imaging showing infiltrates suspicious for aspiration. Patient has altered mental status, nausea and vomiting in the setting of illness with ileus, and has pulled his NGT twice now. Check sputum and blood cultures, and initiate Pip-Tazo. Monitor closely and if not improving consider addition of Vancomycin as well. Maintain with elevated HOB, aspiration precautions. (2) Ileus: Current visit: Yes Status: Acute In setting of acute pancreatitis - distention improved post colonic distention via CScope 06/15, but again worsening. Reglan initiated yesterday, but with worsening distention. Per discussion with surgery will given attempt at administration of Neostigmine (with cardiac monitoring), and continue Reglan. Reinitiate NGT when patient's agitation from ETOH withdrawl are under better control. Continue NPO status. Currently on TPN. (3) Pancreatitis, acute: Current visit: Yes Status: Acute In setting of ETOH abuse. Continue IVFs - currently limited on oral intake due to Ileus. Continue TPN. Lipase improved. Qualifiers: Acute pancreatitis complication: no infection or necrosis Pancreatitis type: unspecified pancreatitis type Qualified Code(s): K85.90 - Acute pancreatitis without necrosis or infection, unspecified (4) Alcohol abuse: Current visit: No Status: Acute Currently in withdrawl. Continue standing Oxazepam and initiate Gabapentin taper, more aggressive IV prn Ativan. Monitor closely. Patient exhibiting worsening confusion along with new onset of fevers - likely multifactorial and partly due to worsening ETOH withdrawl in addition to new diagnosis of likely aspiration pneumonia. (5) Melena: Current visit: Yes Status: Resolved Continue IV PPI on a BID basis. Patient certainly at risk for gastritis and UGI source given alcohol history. Monitor Hgb. Check stool for occult blood. (6) COPD (chronic obstructive pulmonary disease): Current visit: No Status: Chronic Appears quiescent. Continue Home Inhaler therapy with Tiotropium, IGC/LABA. (7) Thrush: Current visit: Yes Status: Acute Continue Nystatin. (8) DVT prophylaxis: Current visit: Yes Status: Acute SCDs. Subjective Interval history since last seen: 63 year old man with a prior history of ETOH abuse, admitted from [facility] Emergency Department with a diagnosis of Acute Pancreatitis. Mr. Urias has a history of of non-oxygen dependent COPD, ETOH abuse, anxiety, and lung cancer s/p radiation. He presented to the ED complaining of shortness of breath and epigastric pain. His lipase was found to be elevated and his imaging showed evidence of acute pancreatitis - he was also noted to have evidence of an ileus by CT of the abdomen with colonic distention without obstruction. He was also noted to have melena by report. The patient has been going through treatment for acute pancreatitis successfully with appropriate decrease in lipase. However due to worsening abdominal pain and distention a repeat CT was obtained showing worsening colonic dilation. He was intolerant of NGT placement and underwent a colonoscopy for decompression on 06/15. Another NGT was put in place, again pulled out by patient last evening. The patient also is reportedly a daily 6 pack beer drinking, with his last drink coming on the morning of admission. He has been maintained on the CIWA protocol and was displaying signs of withdrawl yesterday, currently worsening. No other events repoted. Recorded fevers overnight with max temperature of 38. Urinalysis was checked and normal, but with CXR findings suspicious for aspiration. Exam Narrative Exam Narrative: General: Patient is asleep, responds to verbal and tactile st imula, NAD Neck: Supple CV: Regular, nontachycardic, S1S2, No rubs, murmurs, or gallops. Pulmonary: Clear to auscultation bilaterally, no crackles, wheezing, or rhonchi Abdomen: + Bowel Sounds but hypoactive, soft, mildly diffusely tender. Worsening distention noted. Vascular: No lower extremity edema Psych: Normal mood and affect. Objective Objective Clinical Data: Abnormal lab results 06/17/18 06/17/18 06/17/18 Range/Units 07:10 07:10 11:00 WBC 14.07 H (4.4-10.8) k/cumm RBC 3.44 L (4.50-6.00) m/cumm Hgb 11.5 L (13.5-17.5) g/dL Hct 34.3 L (40.0-50.0) % MCV 99.7 H (80-95) fL MCH 33.4 H (27.0-33.0) pg RDW 11.6 L (11.8-14.1) % Absolute Neutrophils 11.55 H (1.2-6.7) k/cumm Absolute Lymphocytes 0.48 L (1.2-3.4) k/cumm Absolute Monocytes 1.59 H (0.11-0.7) k/cumm Sodium 134 L (136-145) mmol/L Creatinine 0.68 L (0.70-1.30) mg/dL Glucose 168 H D (70-100) mg/dL Calcium 7.3 L (8.5-10.1) mg/dL Urine Blood Trace-lysed H (Negative) Urine RBC 5-10 H (0-2) Vital Signs Temperature 37.4 C 06/17/18 13:00 Temperature Source Temporal Artery Scan 06/17/18 13:00 Pulse 92 H 06/17/18 12:00 Pulse Rhythm Regular 06/12/18 08:00 Pulse 92 H 06/17/18 12:00 Respiratory Rate 19 06/17/18 12:00 Respiratory Effort Non-Labored 06/17/18 03:44 Respiratory Depth Shallow 06/17/18 03:44 Respiratory Pattern Normal 06/17/18 03:44 Blood Pressure 122/74 06/17/18 12:00 Blood Pressure Mean 86 06/17/18 12:00 Blood Pressure Position Supine 06/15/18 15:30 Pulse Oximetry 91 L 06/17/18 12:00 Oxygen Delivery Method Room Air 06/17/18 09:20 Oxygen Flow Rate 0 06/17/18 09:20 Pain Level 9 06/17/18 10:31 Comment 06/17/18 01:50 Intake & Output 06/16/18 06/17/18 06/17/18 23:59 11:59 23:59 Intake Total 1641 / 1641 1031 / 1031 Output Total 1945 / 2795 1130 / 1130 Balance -304 / -1154 -99 / -99 Weight 71.1 kg Intake: IV 1541 / 1541 1031 / 1031 Oral 100 / 100 Output: Urine 1700 / 2550 1080 / 1080 Stool 245 / 245 50 / 50 Other: Urine Color Yellow Yellow Urine Appearance Cloudy Cloudy Comment Noel Catheter. Noel Catheter. Stool Occult Blood Negative Negative Stool Size Small Moderate Stool Characteristics Liquid Liquid Brown Brown Laboratory Results WBC 14.07 k/cumm (4.4-10.8) H 06/17/18 07:10 RBC 3.44 m/cumm (4.50-6.00) L 06/17/18 07:10 Hgb 11.5 g/dL (13.5-17.5) L 06/17/18 07:10 Hct 34.3 % (40.0-50.0) L 06/17/18 07:10 MCV 99.7 fL (80-95) H 06/17/18 07:10 MCH 33.4 pg (27.0-33.0) H 06/17/18 07:10 MCHC 33.5 g/dL (32.0-36.0) 06/17/18 07:10 RDW 11.6 % (11.8-14.1) L 06/17/18 07:10 Plt Count 255 x1000/uL (130-400) 06/17/18 07:10 MPV 10.2 fL (8.0-11.0) 06/17/18 07:10 Immature Gran % 2.8 06/17/18 07:10 Neutrophils % 82.1 06/17/18 07:10 Lymphocytes % 3.4 06/17/18 07:10 Monocytes % 11.3 06/17/18 07:10 Eosinophils % 0.1 06/17/18 07:10 Basophils % 0.3 06/17/18 07:10 Absolute Neutrophils 11.55 k/cumm (1.2-6.7) H 06/17/18 07:10 Band Neutrophils 5.0 % 06/15/18 06:33 Absolute Lymphocytes 0.48 k/cumm (1.2-3.4) L 06/17/18 07:10 Absolute Monocytes 1.59 k/cumm (0.11-0.7) H 06/17/18 07:10 Absolute Eosinophils 0.01 k/cumm (0.0-0.7) 06/17/18 07:10 Absolute Basophils 0.04 k/cumm (0.0-0.2) 06/17/18 07:10 Differential Comment Agrees w/ instrument 06/17/18 07:10 RBC Morphology Normal 06/17/18 07:10 Polychromasia Present 06/14/18 06:30 PT 9.5 sec (9.3-11.0) 06/10/18 06:25 INR 1.0 (0.9-1.1) 06/10/18 06:25 Sodium 134 mmol/L (136-145) L 06/17/18 07:10 Potassium 3.7 mmol/L (3.5-5.1) 06/17/18 07:10 Chloride 102 mmol/L (98-107) 06/17/18 07:10 Carbon Dioxide 27.2 mmol/L (21.0-32.0) 06/17/18 07:10 Anion Gap 4.8 mmol/L (3-11) 06/17/18 07:10 BUN 12 mg/dL (7-18) 06/17/18 07:10 Creatinine 0.68 mg/dL (0.70-1.30) L 06/17/18 07:10 Estimated GFR/1.73 m2 >= 60.00 (mL/min/1.73m2) 06/17/18 07:10 Glucose 168 mg/dL (70-100) H D 06/17/18 07:10 Calcium 7.3 mg/dL (8.5-10.1) L 06/17/18 07:10 Magnesium 2.4 mg/dL (1.8-2.4) 06/17/18 07:10 Total Bilirubin 0.7 mg/dL (0.2-1.0) 06/16/18 06:25 Conjugated Bilirubin 0.34 mg/dL (0.00-0.20) H 06/16/18 06:25 AST 30 U/L (15-37) 06/16/18 06:25 ALT 32 U/L (12-78) 06/16/18 06:25 Alkaline Phosphatase 147 U/L (46-116) H 06/16/18 06:25 Troponin I < 0.02 ng/mL (0.00-0.06) 06/09/18 10:30 Total Protein 5.1 g/dL (6.4-8.2) L 06/16/18 06:25 Albumin 1.6 g/dL (3.4-5.0) L 06/16/18 06:25 Lipase 766 U/L (73-393) H 06/13/18 06:10 Urine Color Yellow (Yellow) 06/17/18 11:00 Urine Clarity Clear 06/17/18 11:00 Urine pH 7.5 (5-8) 06/17/18 11:00 Ur Specific [place] 1.015 (1.005-1.025) 06/17/18 11:00 Urine Protein Negative mg/dL (Negative) 06/17/18 11:00 Urine Ketones Negative mg/dL (Negative) 06/17/18 11:00 Urine Blood Trace-lysed (Negative) H 06/17/18 11:00 Urine Nitrite Negative (Negative) 06/17/18 11:00 Urine Bilirubin Negative (Negative) 06/17/18 11:00 Urine Urobilinogen 0.2 EU/dL (Up TO 0.2) 06/17/18 11:00 Ur Leukocyte Esterase Negative (Negative) 06/17/18 11:00 Urine RBC 5-10 (0-2) H 06/17/18 11:00 Urine WBC Negative HPF (0-5) 06/17/18 11:00 Ur Epithelial Cells Negative HPF (Negative) 06/17/18 11:00 Urine Crystals Negative HPF (Negative) 06/17/18 11:00 Urine Bacteria Few HPF (Negative) 06/17/18 11:00 Urine Casts Negative LPF (Negative) 06/17/18 11:00 Urine Mucus Negative (Negative) 06/17/18 11:00 Urine Other Negative (Negative) 06/17/18 11:00 Ur Culture Indicated? No 06/17/18 11:00 Urine Glucose Negative mg/dL (Negative) 06/17/18 11:00 Hepatitis A IgM Ab Negative (NEGAT) 06/09/18 11:30 Hep Bs Antigen Negative (NEGAT) 06/09/18 11:30 Hep B Core Total Ab Negative (NEGAT) 06/09/18 11:30 Hepatitis C Antibody Negative (NEGAT) 06/09/18 11:30 Objective Narrative Objective Narrative: EXAM: 06/17/2018 XR Chest, 1 View EXAM DATE/TIME: 06/17/2018 8:19 AM CLINICAL HISTORY: 63 years old, male; Signs and symptoms; Other: Rule out aspiration TECHNIQUE: XR of the chest, 1 view. COMPARISON: CR XR CHEST 2V PA LATERAL 06/14/2018 11:05 AM FINDINGS: Tubes, catheters and devices: Left-sided PICC line terminates in the distal SVC. Lungs: Hazy opacities both mid and lower lung zones. Aspiration pneumonia cannot be excluded. Pleural space: Moderate left pleural effusion. Heart/Mediastinum: Unremarkable. No cardiomegaly. Bones/joints: Unremarkable. IMPRESSION: 1. Hazy opacities both mid and lower lung zones. Aspiration pneumonia cannot be excluded. 2. Moderate left pleural effusion. 3. Left-sided PICC line terminates in the distal SVC.
[2018-06-17] MEDS: Albuterol 2.5 MG/3 ML INH SOLN VIAL UPD (15:00)
[2018-06-17] MEDS: PIPERACILLIN/TAZO 3.375 GM in Normal Saline 50 ML IVPB ×2 (15:37→19:36)
[2018-06-18] VITALS (26 sets, daily range): BP systolic 103–161; BP diastolic 59–92; PULSE 92–109; RESP 18–30; TEMP 37.6–38.2; O2SAT 89–94
[2018-06-18] MEDS: PIPERACILLIN/TAZO 3.375 GM in Normal Saline 50 ML IVPB ×4 (02:33→20:22)
[2018-06-18] MEDS: LORazepam 1 MG TAB PO/SL ×3 (03:21→18:51)
[2018-06-18] MEDS: LORazepam 2 MG/ML VIAL IVP ×2 (03:52→23:00)
[2018-06-18] MEDS: Acetaminophen 325 MG TAB PO ×4 (04:32→23:01)
[2018-06-18] MEDS: DEXTROSE 5%-0.9% SALINE 1,000 ML 150 ML IV ×2 (05:43→22:24)
[2018-06-18 08:19] LABS: HCT 34.4 % (40.0-50.0); HGB 11.4 g/dL (13.5-17.5); Mean Corp. HGB Concentration 33.1 g/dL (32.0-36.0); Mean Corpuscular Hemoglobin 33.4 pg (27.0-33.0); Mean Corpuscular Volume 100.9 fL (80-95); Mean Platelet Volume 10.4 fL (8.0-11.0); Platelet Count 282 x1000/uL (130-400); RBC 3.41 m/cumm (4.50-6.00); RBC Distribution Width 12.1 % (11.8-14.1); White Blood Cell Count 17.91 k/cumm (4.4-10.8)
[2018-06-18 08:30] LABS: Anion Gap 5.1 mmol/L (3-11); BUN 13 mg/dL (7-18); CO2 28.9 mmol/L (21.0-32.0); CREATININE 0.73 mg/dL (0.70-1.30); Calcium 7.5 mg/dL (8.5-10.1); Chloride 102 mmol/L (98-107); Glucose 104 mg/dL (70-100); Magnesium 2.4 mg/dL (1.8-2.4); Potassium 3.4 mmol/L (3.5-5.1); Sodium 136 mmol/L (136-145)
[2018-06-18 08:50] LABS: Absolute Lymphocyte Count 0.36 k/cumm (1.2-3.4); Absolute Monocyte Count 1.97 k/cumm (0.11-0.7); Absolute Neutrophil Count 15.04 k/cumm (1.2-6.7); Diff Comment Manual Differential; RBC Morphology Normal
[2018-06-18] MEDS: Budesonide/Formoterol 160/4.5 6 GM 60 PUFF INH IH ×2 (10:11→23:36)
[2018-06-18] MEDS: Pantoprazole 40 MG VIAL IVP ×2 (10:21→20:22)
[2018-06-18] MEDS: Normal Saline Flush 10 ML SYR IVP ×3 (10:21→23:37)
[2018-06-18] MEDS: Metoclopramide 10 MG TAB PO ×3 (10:22→20:20)
[2018-06-18] MEDS: Gabapentin 800 MG TAB PO ×3 (10:22→20:19)
[2018-06-18] MEDS: Oxazepam 10 MG CAP PO ×4 (10:22→20:20)
--- NOTE | 2018-06-18 10:40 | PDOC.CMPRO ---
- If Service Date Differs Date of service: 06/18/18 Time of Service: 10:40 Care Management Progress Note S/O: Iggy is lying in bed when this commercial underwriter visits this morning. Iggy states that he has a headache this morning, and is feeling tired. CM spoke with ANNETTA Araiza, whom states that she is aware of Iggy's headache. A: 63 y/o male admitted to [facility] 06/09/18 for Pancreatitis, Alcoholism P: Iggy will continue to be closely monitored at this time. He will likely return home with no additional anticipated services at this time. He will follow up with his PCP and plan of care as prescribed. Iggy will also follow with Shweta Saleh, JONATHAN, whom sees him in the community, as well as Brando Dobson, therapist. Iggy's mom Vee to transport when ready.
[2018-06-18] MEDS: POTASSIUM CHLORIDE 20 MEQ/100 ML BAG 50 MEQ IVPB (10:44)
[2018-06-18] MEDS: THIAMINE 100 MG in Normal Saline 100 ML 200 MG IVPB (11:13)
--- NOTE | 2018-06-18 11:31 | CMPROGNOTE_ITS ---
- If Service Date Differs Date of service: 06/18/18 Time of Service: 10:40 Care Management Progress Note S/O: Iggy is lying in bed when this contract writer visits this morning. Iggy states that he has a headache this morning, and is feeling tired. CM spoke with ANNETTA Araiza, whom states that she is aware of Iggy's headache. A: 63 y/o male admitted to [facility] 06/09/18 for Pancreatitis, Alcoholism P: Iggy will continue to be closely monitored at this time. He will likely return home with no additional anticipated services at this time. He will follow up with his PCP and plan of care as prescribed. Iggy will also follow with Shweta Saleh, JONATHAN, whom sees him in the community, as well as Brando Dobson, therapist. Iggy's mom Vee to transport when ready.
--- NOTE | 2018-06-18 11:52 | PT.INIE ---
Date of service: 06/18/18 Time of Service: 09:30 PT Notes Inpatient Physical Therapy Evaluation Date: June 18, 2018 Referring Doctor: Dr. Peter Singh PT Orders: PT CONSULT: Deconditioning Precautions: Fall, standard Patient Profile/Admitting Diagnosis: Patient admitted 06/09/2018 due to alcohol related pancreatitis and ileus. He underwent colonoscopy 06/15/2018 with colonic distention noted. He has been monitored in the ICU, and on 06/16/2018 was noted to have left pleural effusion and pneumonia. PT consult has been requested for assessment of mobility and treatment of deconditioning. PMHX: Chronic alcoholism, COPD, thrush, history of lung cancer status post radiation. Current Functional Limitations: Patient lives with his parents. Does not drive. States that he had been using a wheeled walker for the past 3 weeks leading up to admission. Equipment Owned/DME: PERRY Subjective: Patient is resting in bed at initiation of session. He provides limited subjective history, primarily nodding yes and no to direct questions. He is pleasant and cooperative. Objective: General Observation: Resting in bed with multiple lines. Patient is monitored on telemetry, pulse oximeter and blood pressure cuff. He has a Noel catheter in place and a PICC line. Mental Status: A and O x3. Patient does have difficulty with word finding during evaluation. Pain: Unable to verbally quantify pain, although with questioning patient points to his abdomen Vital Signs: Monitored on telemetry throughout ROM: Right Upper Extremity: Shoulder flexion to 125 degrees actively, with significant crepitus. Elbow and wrist motion are within normal limits Left Upper Extremity: Shoulder flexion to 125 degrees actively, with significant crepitus. Elbow and wrist motion are within normal limits Right Lower Extremity: Grossly within normal limits Left Lower Extremity: Grossly within normal limits Strength: Right Upper Extremity: Shoulder flexion 3-/5. Biceps 3+/5. Triceps 3/5. Left Upper Extremity: Shoulder flexion 3-/5. Biceps 3+/5. Right Lower Extremity: Hip flexion 3+/5. Quads 3/5. Ankle dorsiflexion 3/5 Left Lower Extremity: Hip flexion 3+/5. Quads 3/5. Ankle dorsiflexion 3/5 Sensation: Intact at plantar aspects of both feet Bed Mobility/Transfers: Supine to sit: Mod assist, with head of bed at 30 degrees Sit to supine: Min assist Sit to stand: Min assist, stand to sit min assist Bed to chair: Unable due to poor standing balance Gait: Unable Balance: Static Sitting: Fair Dynamic Sitting: Poor (during lower extremity strength assessment patient has loss of balance x2. He requires mod assist for remainder of lower extremity strength assessed Static Standing: poor Dynamic Standing: poor Special Tests: Coordination of UEs and LEs is significantly limited, as assessed by rapid alternating movements. Fine motor is diminished with thumb to digit tapping. No facial asymmetry noted. Mobility Limitations Standardized Measure [facility] AM-PAC 6 clicks Basic Mobility Inpatient Short Form: Raw Score: 14 Standardized Score: 38 CMS Score: 61% CMS Modifier: CL Informed Consent/Education: Patient instructed in purpose of PT consult and plan of care. Patient was instructed in an early therapeutic exercise program, consisting of LE strengthening and seated balance activities as noted on flowsheet. HE was able to perform static standing with min A and UE support to WW x 60 seconds, although with signs of ankle instability. He also performed 3 side steps with WW and min A, with poorly coordinated movements and significant instability. Assessment: Patient is a 63 year old male referred to physical therapy services with the diagnosis of deconditioning. He is currently hospitalized for medical management of pancreatitis related to chronic alcoholism, as well as pneumonia and pleural effusion. Patient presents with clinical signs and symptoms consistent with diagnosis, as demonstrated by the following impairment level findings: 1. Decreased LE strength 2. Decreased UE strength 3. Decreased balance 4. Decreased coordination 5. Decreased activity tolerance Impairments are contributing to the following functional limitations: 1. Unable to independently get in/out of bed 2. Unable to stand independently 3. Unable to ambulate 4. Poor dynamic sitting balance 5. Unable to manage stairs [facility] score. Patient is assessed as High 14239 complexity based on the following: History: 63-year-old male admitted for management of multiple acute medical issues related to alcholism. He is currently being treated for pancreatitis, ileus, pneumonia and pleural effusions, chronic medical conditions including COPD alcoholism, and history of lung cancer Examination: Functional limitations as noted above Presentation: Unstable Decision Making: high complexity Goals: Goals X1 week 1. Supine-Sit : supervision 2. Sit-Supine supervision 3. Sit-Stand supervision with WW 4. Stand-Sit supervision with WW 5. Bed-Chair supervision with WW 6. Chair-Bed supervision with WW 7. Gait supervision with WW x 25' 8. Stairs ascend and descend x 5 steps with bilat rails, supervision Plan of Care/Treatment Plan: 1-2x/day, 7 days/week x 1 week. Plan of care has been reviewed with the CLASSIFICATIONS OFFICER CC/CM providing the service under Physical Therapy direction. Initiate Physical Therapy intervention for strengthening, bed mobility, transfers, gait, stairs, balance training, use of assistive device. DISCHARGE RECOMMENDATIONS: home with family assistance TREATMENT CODE/TIME: 30 minutes (64022) G Codes in the area mobility of walking and moving around: current status [id number] CL; projected status GP [id number]. Discharge status (if discharging) GP [id number] CL.
--- NOTE | 2018-06-18 12:13 | IN_ITS ---
Date of service: 06/18/18 Time of Service: 09:30 PT Notes Inpatient Physical Therapy Evaluation Date: June 18, 2018 Referring Doctor: Dr. Peter Singh PT Orders: PT CONSULT: Deconditioning Precautions: Fall, standard Patient Profile/Admitting Diagnosis: Patient admitted 06/09/2018 due to alcohol related pancreatitis and ileus. He underwent colonoscopy 06/15/2018 with colonic distention noted. He has been monitored in the ICU, and on 06/16/2018 was noted to have left pleural effusion and pneumonia. PT consult has been requested for assessment of mobility and treatment of deconditioning. PMHX: Chronic alcoholism, COPD, thrush, history of lung cancer status post radiation. Current Functional Limitations: Patient lives with his parents. Does not drive. States that he had been using a wheeled walker for the past 3 weeks leading up to admission. Equipment Owned/DME: PERRY Subjective: Patient is resting in bed at initiation of session. He provides limited subjective history, primarily nodding yes and no to direct questions. He is pleasant and cooperative. Objective: General Observation: Resting in bed with multiple lines. Patient is monitored on telemetry, pulse oximeter and blood pressure cuff. He has a Noel catheter in place and a PICC line. Mental Status: A and O x3. Patient does have difficulty with word finding during evaluation. Pain: Unable to verbally quantify pain, although with questioning patient points to his abdomen Vital Signs: Monitored on telemetry throughout ROM: Right Upper Extremity: Shoulder flexion to 125 degrees actively, with significant crepitus. Elbow and wrist motion are within normal limits Left Upper Extremity: Shoulder flexion to 125 degrees actively, with significant crepitus. Elbow and wrist motion are within normal limits Right Lower Extremity: Grossly within normal limits Left Lower Extremity: Grossly within normal limits Strength: Right Upper Extremity: Shoulder flexion 3-/5. Biceps 3+/5. Triceps 3/5. Left Upper Extremity: Shoulder flexion 3-/5. Biceps 3+/5. Right Lower Extremity: Hip flexion 3+/5. Quads 3/5. Ankle dorsiflexion 3/5 Left Lower Extremity: Hip flexion 3+/5. Quads 3/5. Ankle dorsiflexion 3/5 Sensation: Intact at plantar aspects of both feet Bed Mobility/Transfers: Supine to sit: Mod assist, with head of bed at 30 degrees Sit to supine: Min assist Sit to stand: Min assist, stand to sit min assist Bed to chair: Unable due to poor standing balance Gait: Unable Balance: Static Sitting: Fair Dynamic Sitting: Poor (during lower extremity strength assessment patient has loss of balance x2. He requires mod assist for remainder of lower extremity strength assessed Static Standing: poor Dynamic Standing: poor Special Tests: Coordination of UEs and LEs is significantly limited, as assessed by rapid alternating movements. Fine motor is diminished with thumb to digit tapping. No facial asymmetry noted. Mobility Limitations Standardized Measure [facility] AM-PAC 6 clicks Basic Mobility Inpatient Short Form: Raw Score: 14 Standardized Score: 38 CMS Score: 61% CMS Modifier: CL Informed Consent/Education: Patient instructed in purpose of PT consult and plan of care. Patient was instructed in an early therapeutic exercise program, consisting of LE strengthening and seated balance activities as noted on fl owsheet. HE was able to perform static standing with min A and UE support to WW x 60 seconds, although with signs of ankle instability. He also performed 3 side steps with WW and min A, with poorly coordinated movements and significant instability. Assessment: Patient is a 63 year old male referred to physical therapy services with the diagnosis of deconditioning. He is currently hospitalized for medical management of pancreatitis related to chronic alcoholism, as well as pneumonia and pleural effusion. Patient presents with clinical signs and symptoms consistent with diagnosis, as demonstrated by the following impairment level findings: 1. Decreased LE strength 2. Decreased UE strength 3. Decreased balance 4. Decreased coordination 5. Decreased activity tolerance Impairments are contributing to the following functional limitations: 1. Unable to independently get in/out of bed 2. Unable to stand independently 3. Unable to ambulate 4. Poor dynamic sitting balance 5. Unable to manage stairs AMPA score. Patient is assessed as High 70440 complexity based on the following: History: 63-year-old male admitted for management of multiple acute medical issu es related to alcholism. He is currently being treated for pancreatitis, ileus, pneumonia and pleural effusions, chronic medical conditions including COPD alcoholism, and history of lung cancer Examination: Functional limitations as noted above Presentation: Unstable Decision Making: high complexity Goals: Goals X1 week 1. Supine-Sit : supervision 2. Sit-Supine supervision 3. Sit-Stand supervision with WW 4. Stand-Sit supervision with WW 5. Bed-Chair supervision with WW 6. Chair-Bed supervision with WW 7. Gait supervision with WW x 25' 8. Stairs ascend and descend x 5 steps with bilat rails, supervision Plan of Care/Treatment Plan: 1-2x/day, 7 days/week x 1 week. Plan of care has been reviewed with the ACQUISITION SPECIALIST providing the service under Physical Therapy direction. Initiate Physical Therapy intervention for strengthening, bed mobility, transfers, gait, stairs, balance training, use of assistive device. DISCHARGE RECOMMENDATIONS: home with family assistance TREATMENT CODE/TIME: 30 minutes (07488) G Codes in the area mobility of walking and moving around: current status [id number] CL; projected status GP [id number]. Discharge status (if discharging) GP G8980 CL.
--- NOTE | 2018-06-18 14:50 | PT.INTREAT ---
Date of service: 06/18/18 Time of Service: 14:51 PT Notes Inpatient Physical Therapy Treatment Note [facility] Date: 06/18/18 PRECAUTIONS: ETOH Withdrawl, Fall SUBJECTIVE: Iggy is agreeable to participating in PT. He states he wants to do what he can to get better. OBJECTIVE: PAIN: No c/o pain BED MOBILITY/TRANSFERS Sit-supine: Mod A with HOB flat Sit-stand: Min A Stand-sit: Min A GAIT Assistive Device: FWW Weight bearing: Full Assist: Min A x2 Distance: 30' Deviation: Ataxic gait, cueing for FWW mechanics, cueing for upright posture THEREX: Patient completed a LE and UE strengthening program in a supine position, as per flow sheet. ASSESSMENT: Patient tolerated session without complaint. He was able to tolerate a progression in gait distance with FWW support and Min A x2, patient requires cueing for posture and FWW mechanics for safety with gait. Patient would benefit from continued gait and transfer training as well as strengthening for improved mobility. PLAN: Continue with PT's POC TREATMENT CODE/TIME: 20 minutes; ([id number])
--- NOTE | 2018-06-18 14:55 | PTTR_ITS ---
Date of service: 06/18/18 Time of Service: 14:51 PT Notes Inpatient Physical Therapy Treatment Note [facility] Date: 06/18/18 PRECAUTIONS: ETOH Withdrawl, Fall SUBJECTIVE: Iggy is agreeable to participating in PT. He states he wants to do what he can to get better. OBJECTIVE: PAIN: No c/o pain BED MOBILITY/TRANSFERS Sit-supine: Mod A with HOB flat Sit-stand: Min A Stand-sit: Min A GAIT Assistive Device: FWW Weight bearing: Full Assist: Min A x2 Distance: 30' Deviation: Ataxic gait, cueing for FWW mechanics, cueing for upright posture THEREX: Patient completed a LE and UE strengthening program in a supine position, as per flow sheet. ASSESSMENT: Patient tolerated session without complaint. He was able to tolerate a progression in gait distance with FWW support and Min A x2, patient requires cueing for posture and FWW mechanics for safety with gait. Patient wo uld benefit from continued gait and transfer training as well as strengthening for improved mobility. PLAN: Continue with PT's POC TREATMENT CODE/TIME: 20 minutes; ([id number])
--- NOTE | 2018-06-18 16:06 | PGE_ITS ---
Date of Service Date of service: 06/18/18 Time of Service: 16:02 Assessment and Plan (1) Colon distention: Start date: 06/18/18 Start time: 16:05 Current visit: No Status: Acute Continue neostigmine will continue to monitor with abdominal exams serial. (2) Ileus: Start date: 06/18/18 Start time: 16:05 Current visit: Yes Status: Acute Would recommend NG tube but unfortunately patient not compliant having pulled out 3 already Subjective Patient reports: no new complaints Interval history since last seen: Patient currently having apparent altered mental status secondary to alcohol withdrawal possible DTs. Patient noncompliant and poor historian currently and has pulled out multiple NG tube used to decompress his small bowel and stomach secondary to ileus after his alcoholic pancreatitis bout. Exam Const General: no acute distress Nutritional Appearance: malnourished Orientation: alert Limitations: altered mental status GI Inspection: normal to inspection and distended Palpation: soft Percussion: normal to percussion Auscultation: normal bowel sounds Other: Patient's abdomen is soft to palpation with no tenderness to the area. Patient was started on neostigmine over the weekend and had sizable bowel movement and passage of gas over the last 24 hours. Currently he is limited due to altered mental status possible alcohol withdrawal. We will continue to follow but as of now looks as if the neostigmine is doing its job and would recommend NG tube but due to patient's noncompliance and inability to keep that in place unfortunately would not benefit at this time from this. Objective Objective Clinical Data: Abnormal lab results 06/18/18 06/18/18 Range/Units 07:50 07:50 WBC 17.91 H (4.4-10.8) k/cumm RBC 3.41 L (4.50-6.00) m/cumm Hgb 11.4 L (13.5-17.5) g/dL Hct 34.4 L (40.0-50.0) % MCV 100.9 H (80-95) fL MCH 33.4 H (27.0-33.0) pg Absolute Neutrophils 15.04 H (1.2-6.7) k/cumm Absolute Lymphocytes 0.36 L (1.2-3.4) k/cumm Absolute Monocytes 1.97 H (0.11-0.7) k/cumm Potassium 3.4 L (3.5-5.1) mmol/L Glucose 104 H D (70-100) mg/dL Calcium 7.5 L (8.5-10.1) mg/dL Vital Signs Temperature 37.7 C H 06/18/18 15:00 Temperature Source Temporal Artery Scan 06/18/18 15:00 Pulse 98 H 06/18/18 12:03 Pulse Rhythm Regular 06/12/18 08:00 Pulse 102 H 06/18/18 12:03 Respiratory Rate 29 H 06/18/18 12:03 Respiratory Effort Non-Labored 06/18/18 03:01 Respiratory Depth Shallow 06/18/18 03:01 Respiratory Pattern Normal 06/18/18 03:01 Blood Pressure 148/92 H 06/18/18 12:03 Blood Pressure Mean 105 06/18/18 12:03 Blood Pressure Position Supine 06/18/18 03:01 Pulse Oximetry 91 L 06/18/18 12:03 Oxygen Delivery Method Room Air 06/18/18 04:10 Oxygen Flow Rate 0 06/18/18 04:10 Pain Level 7 06/18/18 13:29 Comment 06/17/18 01:50 Intake & Output 06/17/18 06/18/18 06/18/18 23:59 11:59 23:59 Intake Total 1390 / 2522 1221 / 1221 Output Total 0 1355 / 2285 930 / 2285 Balance 460 / 462 -134 / -1064 -930 / -1064 Weight 70.4 kg Intake: IV 1390 / 2522 1171 / 1171 Oral 50 / 50 Output: Urine 2009 1325 / 2255 930 / 2255 Stool 30 / 30 Other: Urine Color Yellow Light Minna Yellow Urine Appearance Clear Cloudy Urine Odor Normal Comment Noel in place Noel in place Stool Occult Blood Negative Stool Size Moderate Small Stool Characteristics Brown Liquid Brown Laboratory Results WBC 17.91 k/cumm (4.4-10.8) H 06/18/18 07:50 RBC 3.41 m/cumm (4.50-6.00) L 06/18/18 07:50 Hgb 11.4 g/dL (13.5-17.5) L 06/18/18 07:50 Hct 34.4 % (40.0-50.0) L 06/18/18 07:50 MCV 100.9 fL (80-95) H 06/18/18 07:50 MCH 33.4 pg (27.0-33.0) H 06/18/18 07:50 MCHC 33.1 g/dL (32.0-36.0) 06/18/18 07:50 RDW 12.1 % (11.8-14.1) 06/18/18 07:50 Plt Count 282 x1000/uL (130-400) 06/18/18 07:50 MPV 10.4 fL (8.0-11.0) 06/18/18 07:50 Immature Gran % See Differential 06/18/18 07:50 Neutrophils % 79.0 06/18/18 07:50 Lymphocytes % 2.0 06/18/18 07:50 Monocytes % 11.0 06/18/18 07:50 Eosinophils % 0.0 06/18/18 07:50 Basophils % 0.0 06/18/18 07:50 Absolute Neutrophils 15.04 k/cumm (1.2-6.7) H 06/18/18 07:50 Band Neutrophils 5.0 % 06/18/18 07:50 Absolute Lymphocytes 0.36 k/cumm (1.2-3.4) L 06/18/18 07:50 Absolute Monocytes 1.97 k/cumm (0.11-0.7) H 06/18/18 07:50 Absolute Eosinophils 0.00 k/cumm (0.0-0.7) 06/18/18 07:50 Absolute Basophils 0.00 k/cumm (0.0-0.2) 06/18/18 07:50 Metamyelocytes 2.0 % 06/18/18 07:50 Myelocytes 1.0 % 06/18/18 07:50 Differential Comment Manual differential 06/18/18 07:50 RBC Morphology Normal 06/18/18 07:50 Polychromasia Present 06/14/18 06:30 PT 9.5 sec (9.3-11.0) 06/10/18 06:25 INR 1.0 (0.9-1.1) 06/10/18 06:25 Sodium 136 mmol/L (136-145) 06/18/18 07:50 Potassium 3.4 mmol/L (3.5-5.1) L 06/18/18 07:50 Chloride 102 mmol/L (98-107) 06/18/18 07:50 Carbon Dioxide 28.9 mmol/L (21.0-32.0) 06/18/18 07:50 Anion Gap 5.1 mmol/L (3-11) 06/18/18 07:50 BUN 13 mg/dL (7-18) 06/18/18 07:50 Creatinine 0.73 mg/dL (0.70-1.30) 06/18/18 07:50 Estimated GFR/1.73 m2 >= 60.00 (mL/min/1.73m2) 06/18/18 07:50 Glucose 104 mg/dL (70-100) H D 06/18/18 07:50 Calcium 7.5 mg/dL (8.5-10.1) L 06/18/18 07:50 Magnesium 2.4 mg/dL (1.8-2.4) 06/18/18 07:50 Total Bilirubin 0.7 mg/dL (0.2-1.0) 06/16/18 06:25 Conjugated Bilirubin 0.34 mg/dL (0.00-0.20) H 06/16/18 06:25 AST 30 U/L (15-37) 06/16/18 06:25 ALT 32 U/L (12-78) 06/16/18 06:25 Alkaline Phosphatase 147 U/L (46-116) H 06/16/18 06:25 Troponin I < 0.02 ng/mL (0.00-0.06) 06/09/18 10:30 Total Protein 5.1 g/dL (6.4-8.2) L 06/16/18 06:25 Albumin 1.6 g/dL (3.4-5.0) L 06/16/18 06:25 Lipase 766 U/L (73-393) H 06/13/18 06:10 Urine Color Yellow (Yellow) 06/17/18 11:00 Urine Clarity Clear 06/17/18 11:00 Urine pH 7.5 (5-8) 06/17/18 11:00 Ur Specific [place] 1.015 (1.005-1.025) 06/17/18 11:00 Urine Protein Negative mg/dL (Negative) 06/17/18 11:00 Urine Ketones Negative mg/dL (Negative) 06/17/18 11:00 Urine Blood Trace-lysed (Negative) H 06/17/18 11:00 Urine Nitrite Negative (Negative) 06/17/18 11:00 Urine Bilirubin Negative (Negative) 06/17/18 11:00 Urine Urobilinogen 0.2 EU/dL (Up TO 0.2) 06/17/18 11:00 Ur Leukocyte Esterase Negative (Negative) 06/17/18 11:00 Urine RBC 5-10 (0-2) H 06/17/18 11:00 Urine WBC Negative HPF (0-5) 06/17/18 11:00 Ur Epithelial Cells Negative HPF (Negative) 06/17/18 11:00 Urine Crystals Negative HPF (Negative) 06/17/18 11:00 Urine Bacteria Few HPF (Negative) 06/17/18 11:00 Urine Casts Negative LPF (Negative) 06/17/18 11:00 Urine Mucus Negative (Negative) 06/17/18 11:00 Urine Other Negative (Negative) 06/17/18 11:00 Ur Culture Indicated? No 06/17/18 11:00 Urine Glucose Negative mg/dL (Negative) 06/17/18 11:00 Hepatitis A IgM Ab Negative (NEGAT) 06/09/18 11:30 Hep Bs Antigen Negative (NEGAT) 06/09/18 11:30 Hep B Core Total Ab Negative (NEGAT) 06/09/18 11:30 Hepatitis C Antibody Negative (NEGAT) 06/09/18 11:30
[2018-06-18] MEDS: Ondansetron 4 MG/2 ML VIAL IVP (18:50)
--- NOTE | 2018-06-18 19:50 | W.PM.PROGNOT ---
Date of Service Date of service: 06/18/18 Time of Service: 20:07 Assessment and Plan (1) Pneumonia: (2) Ileus: (3) Pancreatitis, acute: Qualifiers: Pancreatitis type: unspecified pancreatitis type Acute pancreatitis complication: no infection or necrosis Qualified Code(s): K85.90 - Acute pancreatitis without necrosis or infection, unspecified (4) Alcohol abuse: (5) Melena: (6) COPD (chronic obstructive pulmonary disease): (7) DVT prophylaxis:
[2018-06-19] VITALS (39 sets, daily range): BP systolic 115–159; BP diastolic 70–111; PULSE 87–117; RESP 15–31; TEMP 36.8–38; O2SAT 88–96
[2018-06-19] MEDS: Insulin Aspart 300 UNITS/3 ML PEN SC ×2 (01:03→12:31)
[2018-06-19] MEDS: PIPERACILLIN/TAZO 3.375 GM in Normal Saline 50 ML IVPB ×4 (01:04→20:37)
[2018-06-19] MEDS: Normal Saline Flush 10 ML SYR IVP ×5 (01:58→21:59)
[2018-06-19] MEDS: LORazepam 2 MG/ML VIAL IVP ×2 (01:59→05:22)
[2018-06-19] MEDS: Ondansetron 4 MG/2 ML VIAL IVP (05:21)
[2018-06-19] MEDS: Acetaminophen 325 MG TAB PO (05:21)
[2018-06-19 07:31] LABS: Abs Immature Grans 0.48 k/cumm (0.0-0.09); HGB 11.8 g/dL (13.5-17.5); Mean Corp. HGB Concentration 32.8 g/dL (32.0-36.0); Mean Corpuscular Hemoglobin 33.3 pg (27.0-33.0); Mean Corpuscular Volume 101.7 fL (80-95); Mean Platelet Volume 10.3 fL (8.0-11.0); Platelet Count 322 x1000/uL (130-400); RBC 3.54 m/cumm (4.50-6.00); RBC Distribution Width 12.2 % (11.8-14.1); White Blood Cell Count 15.55 k/cumm (4.4-10.8)
[2018-06-19 07:35] LABS: Anion Gap 4.6 mmol/L (3-11); BUN 11 mg/dL (7-18); CO2 30.4 mmol/L (21.0-32.0); CREATININE 0.74 mg/dL (0.70-1.30); Calcium 7.7 mg/dL (8.5-10.1); Chloride 104 mmol/L (98-107); Glucose 113 mg/dL (70-100); Magnesium 2.4 mg/dL (1.8-2.4); Potassium 3.2 mmol/L (3.5-5.1); Sodium 139 mmol/L (136-145)
[2018-06-19 07:59] LABS: Absolute Lymphocyte Count 0.31 k/cumm (1.2-3.4); Absolute Monocyte Count 1.24 k/cumm (0.11-0.7); Absolute Neutrophil Count 13.53 k/cumm (1.2-6.7)
[2018-06-19 08:00] LABS: Diff Comment Manual Differential; Poikilocytes 1+; Polychromasia Present
[2018-06-19] MEDS: LORazepam 1 MG TAB PO/SL ×2 (08:17→21:57)
[2018-06-19] MEDS: Metoclopramide 10 MG TAB PO ×3 (08:17→19:23)
[2018-06-19] MEDS: Oxazepam 10 MG CAP PO ×4 (08:17→19:23)
[2018-06-19] MEDS: Gabapentin 800 MG TAB PO ×3 (08:18→19:23)
[2018-06-19] MEDS: Pantoprazole 40 MG VIAL IVP ×2 (08:18→19:20)
[2018-06-19] MEDS: Budesonide/Formoterol 160/4.5 6 GM 60 PUFF INH IH ×2 (09:35→20:35)
[2018-06-19] MEDS: Potassium Chloride 20 MEQ TABCR 40 MEQ PO ×2 (09:56→16:53)
[2018-06-19] MEDS: THIAMINE 100 MG in Normal Saline 100 ML 200 MG IVPB (10:28)
[2018-06-19] MEDS: DEXTROSE 5%-0.9% SALINE 1,000 ML 150 ML IV (10:31)
--- NOTE | 2018-06-19 10:56 | PT.INTREAT ---
Date of service: 06/19/18 Time of Service: 10:57 PT Notes Inpatient Physical Therapy Treatment Note [facility] Date: 06/19/18 PRECAUTIONS: Fall SUBJECTIVE: Iggy states that his back and abdominal area are sore this morning. OBJECTIVE: PAIN: Patient complained of abdominal and back pain with transfers. BED MOBILITY/TRANSFERS Supine-sit: Mod A Sit-stand: Min A Stand-sit: Min A Bed-Chair: Mod A GAIT Assistive Device: FWW Weight bearing: Full Assist: Mod A Distance: 5' Deviation: Ataxic gait, cueing for pacing and FWW mechanics Static standing x5 minutes with SBA. THEREX: Patient completed a LE strengthening program, in a supine position, as per flow sheet. ASSESSMENT: Patient tolerated session with c/o pain. He was able to tolerate static standing x5 minutes, demonstrating steadiness with FWW support. He would benefit from continued gait and transfer training as well as strengthening, for improved mobility. PLAN: Continue with PT's POC TREATMENT CODE/TIME: 30 minutes; ([id number], [id number])
[2018-06-19] MEDS: VANCOMYCIN 1,500 MG in Normal Saline 500 ML 333.333 MG IVPB (11:22)
--- NOTE | 2018-06-19 11:47 | PDOC.CMPRO ---
- If Service Date Differs Date of service: 06/19/18 Time of Service: 11:47 Care Management Progress Note S/O: Iggy is sitting up in his chair when this screenplay writer visits this morning. He is drinking gingerale which he is happy about. Iggy states that his sister Kerri was in this morning, as well as his mom and dad. Iggy discusses his living arrangements with his parents, and discloses that his dad drinks alcohol which is hard for him when thinking about sobriety. CM facilitated discussion in regards to Iggy's sobriety and assisted Iggy with identifying triggers to alcohol consumption. A: 63 y/o male admitted to [facility] 06/09/18 for Pancreatitis, Alcoholism P: Iggy will continue to be closely monitored at this time. He will likely return home with no additional anticipated services at this time. He will follow up with his PCP and plan of care as prescribed. Iggy will also follow with Shweta Saleh, JONATHAN, whom sees him in the community, as well as Brando Dobson, therapist. Iggy's mom Vee to transport when ready.
--- NOTE | 2018-06-19 12:00 | CMPROGNOTE_ITS ---
- If Service Date Differs Date of service: 06/19/18 Time of Service: 11:47 Care Management Progress Note S/O: Iggy is sitting up in his chair when this abstract writer visits this morning. He is drinking gingerale which he is happy about. Iggy states that his sister Kerri was in this morning, as well as his mom and dad. Iggy discusses his living arrangements with his parents, and discloses that his dad drinks alcohol which is hard for him when thinking about sobriety. CM facilitated discussion in regards to Iggy's sobriety and assisted Iggy with identifying triggers to alcohol consumption. A: 63 y/o male admitted to [facility] 06/09/18 for Pancreatitis, Alcoholism P: Iggy will continue to be closely monitored at this time. He will likely return home with no additional anticipated services at this time. He will follow up with his PCP and plan of care as prescribed. Iggy will also follow with Shweta Saleh, JONATHAN, whom sees him in the community, as well as Brando Dobson, therapist. Iggy's mom Vee to transport when ready.
[2018-06-19] MEDS: Alteplase 2 MG VIAL IJ (14:15)
[2018-06-19] MEDS: Water,Injection,Bacteriostatic 30 ML VIAL (14:30)
--- NOTE | 2018-06-19 17:03 | PT.INTREAT ---
Date of service: 06/19/18 Time of Service: 16:00 PT Notes Date: 06/19/18 PRECAUTIONS: Fall SUBJECTIVE: Iggy states he is willing perform PT but is not sure about his back as it is sore. OBJECTIVE: Patient lying supine in bed with HOB to 30 degrees. PAIN: Patient complained of abdominal and back pain with transfers. BED MOBILITY/TRANSFERS Supine-sit: Min A Sit-stand: Min A x 3 Stand-sit: Min A x3 GAIT Assistive Device: FWW Weight bearing: Full Assist: Mod A Distance: 5' Deviation: Ataxic gait, cueing for pacing and FWW mechanics Static standing x5 minutes with SBA. ASSESSMENT: Patient was offering minimal complaints of back pain but was able to participate with PT. He is decreasing his need for assistance with transfers and making the most out of his time with therapy as a willing participant. PLAN: Continue with PT's POC TREATMENT CODE/TIME: 20 minutes; ([id number])
--- NOTE | 2018-06-19 18:26 | W.PM.PROGNOT ---
Date of Service Date of service: 06/19/18 Time of Service: 18:26 Assessment and Plan (1) Pneumonia: Current visit: Yes Status: Acute Evidence of fever prompting work-up, with imaging showing infiltrates suspicious for aspiration. Patient has altered mental status, nausea and vomiting in the setting of illness with ileus, and has pulled his NGT twice now. Sputum Culture not yet produced, and blood cultures remain negative for 48 hours. As patient remains febrile with continued leukocytosis with initiate Vancomycin in addition to Pip-Tazo, currently day #3. Maintain with elevated HOB, aspiration precautions. (2) Ileus: Current visit: Yes Status: Acute In setting of acute pancreatitis - distention improved post colonic distention via CScope 06/15, but again worsening. Reglan initiated previously, but with worsening distention. Following discussion with surgery gave attempt at administration of Neostigmine (with cardiac monitoring) with good results. Trial of clears. Currently on TPN. (3) Pancreatitis, acute: Current visit: Yes Status: Acute In setting of ETOH abuse. Continue IVFs - currently limited on oral intake due to Ileus. Continue TPN. Lipase improved. Qualifiers: Pancreatitis type: unspecified pancreatitis type Acute pancreatitis complication: no infection or necrosis Qualified Code(s): K85.90 - Acute pancreatitis without necrosis or infection, unspecified (4) Alcohol abuse: Current visit: No Status: Acute Currently in withdrawl. Continue standing Oxazepam and Gabapentin taper, less aggressive IV prn Ativan. Monitor closely. Patient exhibiting improving mental status, which may have been on the basis of both withdrawl as well as acute infection from aspiration pneumonia. (5) Melena: Current visit: Yes Status: Resolved Continue IV PPI on a BID basis. Patient certainly at risk for gastritis and UGI source given alcohol history. Monitor Hgb - currently stable. (6) COPD (chronic obstructive pulmonary disease): Current visit: No Status: Chronic Appears quiescent. Continue Home Inhaler therapy with Tiotropium, IGC/LABA. (7) DVT prophylaxis: Current visit: Yes Status: Acute SCDs given GIB. Subjective Interval history since last seen: 63 year old man with a prior history of ETOH abuse, admitted from [facility] Emergency Department with a diagnosis of Acute Pancreatitis. Mr. Urias has a history of of non-oxygen dependent COPD, ETOH abuse, anxiety, and lung cancer s/p radiation. He presented to the ED complaining of shortness of breath and epigastric pain. His lipase was found to be elevated and his imaging showed evidence of acute pancreatitis - he was also noted to have evidence of an ileus by CT of the abdomen with colonic distention without obstruction. He was also noted to have melena by report. The patient has been going through treatment for acute pancreatitis successfully with appropriate decrease in lipase. However due to worsening abdominal pain and distention a repeat CT was obtained showing worsening colonic dilation. He was intolerant of NGT placement and underwent a colonoscopy for decompression on 06/15. Another NGT was put in place, again pulled out by patient last evening. The patient also is reportedly a daily 6 pack beer drinking, with his last drink coming on the morning of admission. He has been maintained on the CIWA protocol and was displaying signs of worsening mental status on 06/17, with recorded fevers overnight. Urinalysis was checked and normal, but with CXR findings suspicious for aspiration. He was initiated on antibiotic coverage with Zosyn, but with continued fevers and leukocytosis. Clinically better with improving mental status. Nursing reports loose bowel movements, but with continued abdominal distention. No other events reported. Exam Narrative Exam Narrative: General: Patient is awake - appears clear and oriented. NAD Neck: Supple CV: Regular, nontachycardic, S1S2, No rubs, murmurs, or gallops. Pulmonary: Clear to auscultation bilaterally, no crackles, wheezing, or rhonchi Abdomen: + Bowel Sounds but hypoactive, soft, mildly diffusely tender. Continued distention noted. Vascular: No lower extremity edema Psych: Normal mood and affect. Objective Objective Clinical Data: Abnormal lab results 06/19/18 06/19/18 Range/Units 07:12 07:12 WBC 15.55 H (4.4-10.8) k/cumm RBC 3.54 L (4.50-6.00) m/cumm Hgb 11.8 L (13.5-17.5) g/dL Hct 36.0 L (40.0-50.0) % MCV 101.7 H (80-95) fL MCH 33.3 H (27.0-33.0) pg Absolute Neutrophils 13.53 H (1.2-6.7) k/cumm Absolute Lymphocytes 0.31 L (1.2-3.4) k/cumm Absolute Monocytes 1.24 H (0.11-0.7) k/cumm Potassium 3.2 L (3.5-5.1) mmol/L Glucose 113 H (70-100) mg/dL Calcium 7.7 L (8.5-10.1) mg/dL Vital Signs Temperature 37.3 C 06/19/18 14:39 Temperature Source Temporal Artery Scan 06/19/18 14:39 Pulse 95 H 06/19/18 14:00 Pulse Rhythm Regular 06/12/18 08:00 Pulse 93 H 06/19/18 14:00 Respiratory Rate 23 06/19/18 14:00 Respiratory Effort Non-Labored 06/19/18 12:18 Respiratory Depth Normal 06/19/18 12:18 Respiratory Pattern Normal 06/19/18 12:18 Blood Pressure 138/91 H 06/19/18 14:00 Blood Pressure Mean 103 06/19/18 14:00 Blood Pressure Position Supine 06/19/18 12:18 Pulse Oximetry 92 L 06/19/18 14:00 Oxygen Delivery Method Nasal Cannula 06/19/18 14:39 Oxygen Flow Rate 2 06/19/18 14:39 Pain Level 4 06/19/18 14:39 Comment 06/17/18 01:50 Intake & Output 06/18/18 06/19/18 06/19/18 23:59 11:59 23:59 Intake Total 1100 / 2321 3645.5 / 4455.5 810 / 4455.5 Output Total 2280 / 3635 1400 / 1400 Balance -1180 / -1314 2245.5 / 3055.5 810 / 3055.5 Intake: IV 1100 / 2271 3625.5 / 4420.5 795 / 4420.5 Oral 20 35 15 35 Output: Urine 2280 / 3605 1400 / 1400 Other: Urine Color Yellow Yellow Urine Appearance Clear Clear Comment Noel intact and draining well. Not emptied at this time Not emptied at this time Stool Size Moderate Moderate Stool Characteristics Liquid Liquid Laboratory Results WBC 15.55 k/cumm (4.4-10.8) H 06/19/18 07:12 RBC 3.54 m/cumm (4.50-6.00) L 06/19/18 07:12 Hgb 11.8 g/dL (13.5-17.5) L 06/19/18 07:12 Hct 36.0 % (40.0-50.0) L 06/19/18 07:12 MCV 101.7 fL (80-95) H 06/19/18 07:12 MCH 33.3 pg (27.0-33.0) H 06/19/18 07:12 MCHC 32.8 g/dL (32.0-36.0) 06/19/18 07:12 RDW 12.2 % (11.8-14.1) 06/19/18 07:12 Plt Count 322 x1000/uL (130-400) 06/19/18 07:12 MPV 10.3 fL (8.0-11.0) 06/19/18 07:12 Immature Gran % See Differential 06/19/18 07:12 Neutrophils % 85.0 06/19/18 07:12 Lymphocytes % 2.0 06/19/18 07:12 Monocytes % 8.0 06/19/18 07:12 Eosinophils % 0.0 06/19/18 07:12 Basophils % 0.0 06/19/18 07:12 Absolute Neutrophils 13.53 k/cumm (1.2-6.7) H 06/19/18 07:12 Band Neutrophils 2.0 % 06/19/18 07:12 Absolute Lymphocytes 0.31 k/cumm (1.2-3.4) L 06/19/18 07:12 Absolute Monocytes 1.24 k/cumm (0.11-0.7) H 06/19/18 07:12 Absolute Eosinophils 0.00 k/cumm (0.0-0.7) 06/19/18 07:12 Absolute Basophils 0.00 k/cumm (0.0-0.2) 06/19/18 07:12 Metamyelocytes 1.0 % 06/19/18 07:12 Myelocytes 2.0 % 06/19/18 07:12 Differential Comment Manual differential 06/19/18 07:12 RBC Morphology See below 06/19/18 07:12 Polychromasia Present 06/19/18 07:12 Poikilocytosis 1+ 06/19/18 07:12 PT 9.5 sec (9.3-11.0) 06/10/18 06:25 INR 1.0 (0.9-1.1) 06/10/18 06:25 Sodium 139 mmol/L (136-145) 06/19/18 07:12 Potassium 3.2 mmol/L (3.5-5.1) L 06/19/18 07:12 Chloride 104 mmol/L (98-107) 06/19/18 07:12 Carbon Dioxide 30.4 mmol/L (21.0-32.0) 06/19/18 07:12 Anion Gap 4.6 mmol/L (3-11) 06/19/18 07:12 BUN 11 mg/dL (7-18) 06/19/18 07:12 Creatinine 0.74 mg/dL (0.70-1.30) 06/19/18 07:12 Estimated GFR/1.73 m2 >= 60.00 (mL/min/1.73m2) 06/19/18 07:12 Glucose 113 mg/dL (70-100) H 06/19/18 07:12 Calcium 7.7 mg/dL (8.5-10.1) L 06/19/18 07:12 Magnesium 2.4 mg/dL (1.8-2.4) 06/19/18 07:12 Total Bilirubin 0.7 mg/dL (0.2-1.0) 06/16/18 06:25 Conjugated Bilirubin 0.34 mg/dL (0.00-0.20) H 06/16/18 06:25 AST 30 U/L (15-37) 06/16/18 06:25 ALT 32 U/L (12-78) 06/16/18 06:25 Alkaline Phosphatase 147 U/L (46-116) H 06/16/18 06:25 Troponin I < 0.02 ng/mL (0.00-0.06) 06/09/18 10:30 Total Protein 5.1 g/dL (6.4-8.2) L 06/16/18 06:25 Albumin 1.6 g/dL (3.4-5.0) L 06/16/18 06:25 Lipase 766 U/L (73-393) H 06/13/18 06:10 Urine Color Yellow (Yellow) 06/17/18 11:00 Urine Clarity Clear 06/17/18 11:00 Urine pH 7.5 (5-8) 06/17/18 11:00 Ur Specific [place] 1.015 (1.005-1.025) 06/17/18 11:00 Urine Protein Negative mg/dL (Negative) 06/17/18 11:00 Urine Ketones Negative mg/dL (Negative) 06/17/18 11:00 Urine Blood Trace-lysed (Negative) H 06/17/18 11:00 Urine Nitrite Negative (Negative) 06/17/18 11:00 Urine Bilirubin Negative (Negative) 06/17/18 11:00 Urine Urobilinogen 0.2 EU/dL (Up TO 0.2) 06/17/18 11:00 Ur Leukocyte Esterase Negative (Negative) 06/17/18 11:00 Urine RBC 5-10 (0-2) H 06/17/18 11:00 Urine WBC Negative HPF (0-5) 06/17/18 11:00 Ur Epithelial Cells Negative HPF (Negative) 06/17/18 11:00 Urine Crystals Negative HPF (Negative) 06/17/18 11:00 Urine Bacteria Few HPF (Negative) 06/17/18 11:00 Urine Casts Negative LPF (Negative) 06/17/18 11:00 Urine Mucus Negative (Negative) 06/17/18 11:00 Urine Other Negative (Negative) 06/17/18 11:00 Ur Culture Indicated? No 06/17/18 11:00 Urine Glucose Negative mg/dL (Negative) 06/17/18 11:00 Hepatitis A IgM Ab Negative (NEGAT) 06/09/18 11:30 Hep Bs Antigen Negative (NEGAT) 06/09/18 11:30 Hep B Core Total Ab Negative (NEGAT) 06/09/18 11:30 Hepatitis C Antibody Negative (NEGAT) 06/09/18 11:30
[2018-06-19] MEDS: VANCOMYCIN 1,250 MG in Normal Saline 250 ML 166.667 MG IVPB (19:11)
[2018-06-19] MEDS: Acetaminophen 650 MG SUPP PR (21:59)
[2018-06-20] VITALS (32 sets, daily range): BP systolic 113–157; BP diastolic 62–97; PULSE 53–160; RESP 13–26; TEMP 36.2–37.4; O2SAT 91–96
[2018-06-20] MEDS: PIPERACILLIN/TAZO 3.375 GM in Normal Saline 50 ML IVPB ×4 (01:03→20:44)
[2018-06-20] MEDS: Insulin Aspart 300 UNITS/3 ML PEN SC ×3 (01:05→23:41)
[2018-06-20] MEDS: VANCOMYCIN 1,250 MG in Normal Saline 250 ML 167 MG IVPB (02:05)
[2018-06-20] MEDS: Normal Saline 1,000 ML 75 ML IV (03:29)
[2018-06-20] MEDS: Normal Saline Flush 10 ML SYR IVP ×5 (04:15→20:43)
[2018-06-20] MEDS: LORazepam 1 MG TAB PO/SL ×2 (05:54→23:42)
--- NOTE | 2018-06-20 06:56 | PGE_ITS ---
Date of Service Date of service: 06/20/18 Time of Service: 06:54 Assessment and Plan (1) Colon distention: Current visit: No Status: Acute would cont neostigmine (2) Ileus: Current visit: Yes Status: Acute ngt but pt is non compliant and has pulled out 4? already Subjective Patient reports: no new complaints Exam GI Inspection: normal to inspection and distended Palpation: soft Percussion: normal to percussion Auscultation: hyperactive bowel sounds Objective Objective Clinical Data: Abnormal lab results 06/19/18 06/19/18 Range/Units 07:12 07:12 WBC 15.55 H (4.4-10.8) k/cumm RBC 3.54 L (4.50-6.00) m/cumm Hgb 11.8 L (13.5-17.5) g/dL Hct 36.0 L (40.0-50.0) % MCV 101.7 H (80-95) fL MCH 33.3 H (27.0-33.0) pg Absolute Neutrophils 13.53 H (1.2-6.7) k/cumm Absolute Lymphocytes 0.31 L (1.2-3.4) k/cumm Absolute Monocytes 1.24 H (0.11-0.7) k/cumm Potassium 3.2 L (3.5-5.1) mmol/L Glucose 113 H (70-100) mg/dL Calcium 7.7 L (8.5-10.1) mg/dL Vital Signs Temperature 36.2 C L 06/20/18 03:30 Temperature Source Tympanic 06/20/18 00:00 Pulse 91 H 06/20/18 04:01 Pulse Rhythm Regular 06/12/18 08:00 Pulse 91 H 06/20/18 04:02 Respiratory Rate 21 06/20/18 04:02 Respiratory Effort Non-Labored 06/20/18 03:30 Respiratory Depth Normal 06/20/18 03:30 Respiratory Pattern Normal 06/20/18 03:30 Blood Pressure 145/97 H 06/20/18 04:01 Blood Pressure Mean 108 06/20/18 04:01 Blood Pressure Position Supine 06/19/18 23:56 Pulse Oximetry 96 06/20/18 04:02 Oxygen Delivery Method Nasal Cannula 06/20/18 03:30 Oxygen Flow Rate 2 06/20/18 03:30 Pain Level 0 06/20/18 03:30 Comment 06/17/18 01:50 Intake & Output 06/19/18 06/19/18 06/20/18 11:59 23:59 11:59 Intake Total 3645.5 / 5055.5 1410 / 5055.5 270 / 270 Output Total 1400 / 1460 60 / 1460 1400 / 1400 Balance 2245.5 / 3595.5 1350 / 3595.5 -1130 / -1130 Intake: IV 3625.5 / 5020.5 1395 / 5020.5 70 / 70 Oral 20 / 35 15 35 200 / 200 Output: Urine 1400 / 1400 1400 / 1400 Stool 60 / 60 Other: Urine Color Yellow Yellow Pale Yellow Urine Appearance Clear Clear Clear Comment Not emptied at this time voiding clear yellow urine to [place]:Not emptied at this time Stool Occult Blood Negative Stool Size Moderate Moderate Stool Characteristics Liquid Liquid Laboratory Results WBC 15.55 k/cumm (4.4-10.8) H 06/19/18 07:12 RBC 3.54 m/cumm (4.50-6.00) L 06/19/18 07:12 Hgb 11.8 g/dL (13.5-17.5) L 06/19/18 07:12 Hct 36.0 % (40.0-50.0) L 06/19/18 07:12 MCV 101.7 fL (80-95) H 06/19/18 07:12 MCH 33.3 pg (27.0-33.0) H 06/19/18 07:12 MCHC 32.8 g/dL (32.0-36.0) 06/19/18 07:12 RDW 12.2 % (11.8-14.1) 06/19/18 07:12 Plt Count 322 x1000/uL (130-400) 06/19/18 07:12 MPV 10.3 fL (8.0-11.0) 06/19/18 07:12 Immature Gran % See Differential 06/19/18 07:12 Neutrophils % 85.0 06/19/18 07:12 Lymphocytes % 2.0 06/19/18 07:12 Monocytes % 8.0 06/19/18 07:12 Eosinophils % 0.0 06/19/18 07:12 Basophils % 0.0 06/19/18 07:12 Absolute Neutrophils 13.53 k/cumm (1.2-6.7) H 06/19/18 07:12 Band Neutrophils 2.0 % 06/19/18 07:12 Absolute Lymphocytes 0.31 k/cumm (1.2-3.4) L 06/19/18 07:12 Absolute Monocytes 1.24 k/cumm (0.11-0.7) H 06/19/18 07:12 Absolute Eosinophils 0.00 k/cumm (0.0-0.7) 06/19/18 07:12 Absolute Basophils 0.00 k/cumm (0.0-0.2) 06/19/18 07:12 Metamyelocytes 1.0 % 06/19/18 07:12 Myelocytes 2.0 % 06/19/18 07:12 Differential Comment Manual differential 06/19/18 07:12 RBC Morphology See below 06/19/18 07:12 Polychromasia Present 06/19/18 07:12 Poikilocytosis 1+ 06/19/18 07:12 PT 9.5 sec (9.3-11.0) 06/10/18 06:25 INR 1.0 (0.9-1.1) 06/10/18 06:25 Sodium 139 mmol/L (136-145) 06/19/18 07:12 Potassium 3.2 mmol/L (3.5-5.1) L 06/19/18 07:12 Chloride 104 mmol/L (98-107) 06/19/18 07:12 Carbon Dioxide 30.4 mmol/L (21.0-32.0) 06/19/18 07:12 Anion Gap 4.6 mmol/L (3-11) 06/19/18 07:12 BUN 11 mg/dL (7-18) 06/19/18 07:12 Creatinine 0.74 mg/dL (0.70-1.30) 06/19/18 07:12 Estimated GFR/1.73 m2 >= 60.00 (mL/min/1.73m2) 06/19/18 07:12 Glucose 113 mg/dL (70-100) H 06/19/18 07:12 Calcium 7.7 mg/dL (8.5-10.1) L 06/19/18 07:12 Magnesium 2.4 mg/dL (1.8-2.4) 06/19/18 07:12 Total Bilirubin 0.7 mg/dL (0.2-1.0) 06/16/18 06:25 Conjugated Bilirubin 0.34 mg/dL (0.00-0.20) H 06/16/18 06:25 AST 30 U/L (15-37) 06/16/18 06:25 ALT 32 U/L (12-78) 06/16/18 06:25 Alkaline Phosphatase 147 U/L (46-116) H 06/16/18 06:25 Troponin I < 0.02 ng/mL (0.00-0.06) 06/09/18 10:30 Total Protein 5.1 g/dL (6.4-8.2) L 06/16/18 06:25 Albumin 1.6 g/dL (3.4-5.0) L 06/16/18 06:25 Lipase 766 U/L (73-393) H 06/13/18 06:10 Urine Color Yellow (Yellow) 06/17/18 11:00 Urine Clarity Clear 06/17/18 11:00 Urine pH 7.5 (5-8) 06/17/18 11:00 Ur Specific [place] 1.015 (1.005-1.025) 06/17/18 11:00 Urine Protein Negative mg/dL (Negative) 06/17/18 11:00 Urine Ketones Negative mg/dL (Negative) 06/17/18 11:00 Urine Blood Trace-lysed (Negative) H 06/17/18 11:00 Urine Nitrite Negative (Negative) 06/17/18 11:00 Urine Bilirubin Negative (Negative) 06/17/18 11:00 Urine Urobilinogen 0.2 EU/dL (Up TO 0.2) 06/17/18 11:00 Ur Leukocyte Esterase Negative (Negative) 06/17/18 11:00 Urine RBC 5-10 (0-2) H 06/17/18 11:00 Urine WBC Negative HPF (0-5) 06/17/18 11:00 Ur Epithelial Cells Negative HPF (Negative) 06/17/18 11:00 Urine Crystals Negative HPF (Negative) 06/17/18 11:00 Urine Bacteria Few HPF (Negative) 06/17/18 11:00 Urine Casts Negative LPF (Negative) 06/17/18 11:00 Urine Mucus Negative (Negative) 06/17/18 11:00 Urine Other Negative (Negative) 06/17/18 11:00 Ur Culture Indicated? No 06/17/18 11:00 Urine Glucose Negative mg/dL (Negative) 06/17/18 11:00 Hepatitis A IgM Ab Negative (NEGAT) 06/09/18 11:30 Hep Bs Antigen Negative (NEGAT) 06/09/18 11:30 Hep B Core Total Ab Negative (NEGAT) 06/09/18 11:30 Hepatitis C Antibody Negative (NEGAT) 06/09/18 11:30
[2018-06-20 07:55] LABS: Abs Immature Grans 0.31 k/cumm (0.0-0.09); HCT 34.4 % (40.0-50.0); HGB 11.1 g/dL (13.5-17.5); Mean Corp. HGB Concentration 32.3 g/dL (32.0-36.0); Mean Corpuscular Hemoglobin 33.2 pg (27.0-33.0); Mean Platelet Volume 10.7 fL (8.0-11.0); RBC 3.34 m/cumm (4.50-6.00); RBC Distribution Width 12.4 % (11.8-14.1); White Blood Cell Count 17.13 k/cumm (4.4-10.8)
[2018-06-20 08:03] LABS: Anion Gap 6.9 mmol/L (3-11); BUN 10 mg/dL (7-18); CO2 29.1 mmol/L (21.0-32.0); CREATININE 0.57 mg/dL (0.70-1.30); Calcium 7.6 mg/dL (8.5-10.1); Chloride 104 mmol/L (98-107); Glucose 116 mg/dL (70-100); Magnesium 2.3 mg/dL (1.8-2.4); Potassium 3.6 mmol/L (3.5-5.1); Sodium 140 mmol/L (136-145)
[2018-06-20 08:49] LABS: Platelet Count 334 x1000/uL (130-400)
[2018-06-20 08:50] LABS: Absolute Lymphocyte Count 0.86 k/cumm (1.2-3.4); Absolute Monocyte Count 0.86 k/cumm (0.11-0.7); Absolute Neutrophil Count 15.07 k/cumm (1.2-6.7)
[2018-06-20 08:51] LABS: Diff Comment Manual Differential; Polychromasia Present
[2018-06-20 08:52] LABS: Stomatocytes 2+
--- NOTE | 2018-06-20 09:12 | PT.INTREAT ---
Date of service: 06/20/18 Time of Service: 09:12 PT Notes Inpatient Physical Therapy Treatment Note [facility] Date: 06/20/18 PRECAUTIONS: Fall SUBJECTIVE: Patient reports that he is seeing things this morning. He asks for a withdrawal pill to help. OBJECTIVE: PAIN: Patient c/o of significant discomfort in low back and abdominal area with transfers and sitting. BED MOBILITY/TRANSFERS Supine-sit: I Stand-sit: CGA Bed-Chair: [facility] GAIT Assistive Device: FWW Weight bearing: Full Assist: Min A Distance: 5' Static standing x5 minutes with SBA THEREX: Patient completed an UE and LE strengthening program, as per flow sheet. ASSESSMENT: Patient tolerated session with c/o abdominal and low back pain with sitting and transfers. He would benefit from continued gait and transfer training, as well as strengthening for improved mobility. PLAN: Continue with PT's POC TREATMENT CODE/TIME: 30 minutes; ([id number], [id number])
--- NOTE | 2018-06-20 09:15 | PTTR_ITS ---
Date of service: 06/20/18 Time of Service: 09:12 PT Notes Inpatient Physical Therapy Treatment Note [facility] Date: 06/20/18 PRECAUTIONS: Fall SUBJECTIVE: Patient reports that he is seeing things this morning. He asks for a withdrawal pill to help. OBJECTIVE: PAIN: Patient c/o of significant discomfort in low back and abdominal area with transfers and sitting. BED MOBILITY/TRANSFERS Supine-sit: I Stand-sit: CGA Bed-Chair: [facility] GAIT Assistive Device: FWW Weight bearing: Full Assist: Min A Distance: 5' Static standing x5 minutes with SBA THEREX: Patient completed an UE and LE strengthening program, as per flow sheet. ASSESSMENT: Patient tolerated session with c/o abdominal and low back pain with sitting and transfers. He would benefit from continued gait and transfer training, as well as strengthening for improved mobility. PLAN: Continue with PT's POC TREATMENT CODE/TIME: 30 minutes; ([id number], [id number])
[2018-06-20] MEDS: Budesonide/Formoterol 160/4.5 6 GM 60 PUFF INH IH ×2 (09:29→20:43)
[2018-06-20] MEDS: Gabapentin 800 MG TAB PO ×3 (09:29→20:44)
[2018-06-20] MEDS: Metoclopramide 10 MG TAB PO ×2 (09:29→20:43)
[2018-06-20] MEDS: Pantoprazole 40 MG VIAL IVP ×2 (09:30→20:43)
[2018-06-20] MEDS: Potassium Chloride 20 MEQ TABCR 40 MEQ PO ×2 (09:30→10:31)
[2018-06-20] MEDS: Oxazepam 10 MG CAP PO ×4 (09:30→20:44)
--- NOTE | 2018-06-20 09:52 | PDOC.CMPRO ---
- If Service Date Differs Date of service: 06/20/18 Time of Service: 09:52 Care Management Progress Note S/O: Iggy is sitting up in his chair when this service writer visits. He states that he is feeling better today, though reports that he is still having abdominal discomfort, and complains of back pain, which he states is chronic. Iggy requested something to drink when CM exited room, which CM notified ANNETTA Chau, of. A: 63 y/o male admitted to [facility] 06/09/18 for Pancreatitis, Alcoholism P: Iggy will continue to be closely monitored at this time. He will likely return home with no additional anticipated services at this time. He will follow up with his PCP and plan of care as prescribed. Iggy will also follow with Shweta Saleh, JONATHAN, whom sees him in the community, as well as Brando Dobson, therapist. Iggy's mom Vee to transport when ready.
--- NOTE | 2018-06-20 10:09 | CMPROGNOTE_ITS ---
- If Service Date Differs Date of service: 06/20/18 Time of Service: 09:52 Care Management Progress Note S/O: Iggy is sitting up in his chair when this administrative underwriter visits. He states that he is feeling better today, though reports that he is still having abdominal discomfort, and complains of back pain, which he states is chronic. Iggy requested something to drink when CM exited room, which CM notified ANNETTA Chau, of. A: 63 y/o male admitted to [facility] 06/09/18 for Pancreatitis, Alcoholism P: Iggy will continue to be closely monitored at this time. He will likely return home with no additional anticipated services at this time. He will follow up with his PCP and plan of care as prescribed. Iggy will also follow with Shweta Saleh, JONATHAN, whom sees him in the community, as well as Brando Dobson, therapist. Iggy's mom Vee to transport when ready.
[2018-06-20] MEDS: THIAMINE 100 MG in Normal Saline 100 ML 200 MG IVPB (10:25)
[2018-06-20] MEDS: VANCOMYCIN 1,250 MG in Normal Saline 250 ML 166.67 MG IVPB (11:00)
--- NOTE | 2018-06-20 12:37 | PGE_ITS ---
Date of Service Date of service: 06/20/18 Time of Service: 12:24 Assessment and Plan (1) Pneumonia: Current visit: Yes Status: Acute Evidence of fever prompting work-up, with imaging showing infiltrates suspicious for aspiration. Patient had altered mental status, nausea and vomiting in the setting of illness with ileus, and pulled his NGT now on 2-3 prior occasions. Sputum Culture not yet produced, and blood cultures remain negative for 48 hours. As patient had remained febrile with continued leukocytosis, initiated Vancomycin in addition to Pip-Tazo, currently day #2 and #4 respectively. Maintain with elevated HOB, aspiration precautions. (2) Ileus: Current visit: Yes Status: Acute In setting of acute pancreatitis - distention improved post colonic distention via CScope 06/15, but again worsening. Reglan initiated previously, but with worsening distention. Following discussion with surgery gave attempt at administration of Neostigmine (with cardiac monitoring) with good results. Remains distended, but with reported passage of loose stools and gas. Currently tolerating clears, and on TPN. (3) Pancreatitis, acute: Current visit: Yes Status: Acute In setting of ETOH abuse. Continue TPN. Lipase improved. Discontinue IVFs as patient has become mildly volume overloaded. Trial of one time furosemide - blood pressure and renal function are adequate. Qualifiers: Pancreatitis type: unspecified pancreatitis type Acute pancreatitis complication: no infection or necrosis Qualified Code(s): K85.90 - Acute pancreatitis without necrosis or infection, unspecified (4) Alcohol abuse: Current visit: No Status: Acute Currently in withdrawl - reported hallucinations and tremors overnight. Continue standing Oxazepam and Gabapentin taper, less aggressive IV prn Ativan. Monitor closely. Patient exhibiting improving mental status again this morning. (5) Melena: Current visit: Yes Status: Resolved Continue IV PPI on a BID basis. Patient certainly at risk for gastritis and UGI source given alcohol history. Monitor Hgb - currently stable. (6) COPD (chronic obstructive pulmonary disease): Current visit: No Status: Chronic Appears quiescent. Continue Home Inhaler therapy with Tiotropium, IGC/L CAITLYN. (7) DVT prophylaxis: Current visit: Yes Status: Acute SCDs given GIB. Subjective Interval history since last seen: 63 year old man with a prior history of ETOH abuse, admitted from [facility] with a diagnosis of Acute Pancreatitis. Mr. Urias has a history of of non-oxygen dependent COPD, ETOH abuse, anxiety, and lung cancer s/p radiation. He presented to the ED complaining of shortness of breath and epigastric pain. His lipase was found to be elevated and his imaging showed evidence of acute pancreatitis - he was also noted to have evidence of an ileus by CT of the abdomen with colonic distention without obstruction. He was also noted to have melena by report. The patient has been going through treatment for acute pancreatitis successfully with appropriate decrease in lipase. However due to worsening abdominal pain and distention a repeat CT was obtained showing worsening colonic dilation. He was intolerant of NGT placement and underwent a colonoscopy for decompression on 06/15. Another NGT was put in place, again pulled out by patient. The patient also is reportedly a daily 6 pack beer drinking, with his last drink coming on the morning of admission. He has been maintained on the CIWA protocol and was continues intermittently scoring high on the CIWA scale, last night due to tremors and hallucinations. This mornning he is again oriented X3. On 06/17 he was noted to have an acutely worsening mental status, along with recorded fevers overnight. Urinalysis was checked and normal, but with CXR findings suspicious for aspiration. He was initiated on antibiotic coverage with Zosyn, but with continued fevers and leukocytosis, with Vancomycin added on to his regimen. Clinically better with improving mental status and remains afebrile now for slightly over 24 hours. Nursing reports continued loose bowel movements and Mr. Urias is tolerating oral intake with clear fluids, but also with continued abdominal distention. No other events reported. Exam Narrative Exam Narrative: General: Patient is awake - appears clear and oriented. NAD Neck: Supple CV: Regular, nontachycardic, S1S2, No rubs, murmurs, or gallops. Pulmonary: Bibasilar crackles. Abdomen: + Bowel Sounds but hypoactive, soft, mildly diffusely tender. Continued distention noted. Vascular: No lower extremity edema Psych: Normal mood and affect. Objective Objective Clinical Data: Abnormal lab results 06/20/18 06/20/18 Range/Units 07:03 07:03 WBC 17.13 H (4.4-10.8) k/cumm RBC 3.34 L (4.50-6.00) m/cumm Hgb 11.1 L (13.5-17.5) g/dL Hct 34.4 L (40.0-50.0) % MCV 103.0 H (80-95) fL MCH 33.2 H (27.0-33.0) pg Absolute Neutrophils 15.07 H (1.2-6.7) k/cumm Absolute Lymphocytes 0.86 L (1.2-3.4) k/cumm Absolute Monocytes 0.86 H (0.11-0.7) k/cumm Creatinine 0.57 L (0.70-1.30) mg/dL Glucose 116 H (70-100) mg/dL Calcium 7.6 L (8.5-10.1) mg/dL Vital Signs Temperature 37.2 C 06/20/18 09:00 Temperature Source Tympanic 06/20/18 09:00 Pulse 98 H 06/20/18 08:59 Pulse Rhythm Regular 06/12/18 08:00 Pulse 102 H 06/20/18 08:59 Respiratory Rate 26 H 06/20/18 08:59 Respiratory Effort Non-Labored 06/20/18 09:00 Respiratory Depth Normal 06/20/18 09:00 Respiratory Pattern Normal 06/20/18 09:00 Blood Pressure 137/78 06/20/18 08:59 Blood Pressure Mean 92 06/20/18 08:59 Blood Pressure Position Sitting 06/20/18 09:00 Pulse Oximetry 94 L 06/20/18 11:43 Oxygen Delivery Method Nasal Cannula 06/20/18 11:43 Oxygen Flow Rate 1 06/20/18 11:43 Pain Level 0 06/20/18 10:28 Comment 06/17/18 01:50 Intake & Output 06/19/18 06/20/18 06/20/18 23:59 11:59 23:59 Intake Total 1410 / 5055.5 1339.75 / 1339.75 Output Total 60 / 1460 1430 / 1430 Balance 1350 / 3595.5 -90.25 / -90.25 Weight 71 kg Intake: IV 1395 / 5020.5 849.75 / 849.75 Oral 15 / 35 490 / 490 Output: Urine 1400 / 1400 Stool 60 / 60 30 / 30 Other: Urine Color Yellow Pale Yellow Urine Appearance Clear Clear Comment voiding clear yellow urine to lomax:Not emptied at this time Lomax patent and draining yellow urine. Stool Occult Blood Negative Negative Stool Size Moderate Large Stool Characteristics Liquid Liquid Green Laboratory Results WBC 17.13 k/cumm (4.4-10.8) H 06/20/18 07:03 RBC 3.34 m/cumm (4.50-6.00) L 06/20/18 07:03 Hgb 11.1 g/dL (13.5-17.5) L 06/20/18 07:03 Hct 34.4 % (40.0-50.0) L 06/20/18 07:03 MCV 103.0 fL (80-95) H 06/20/18 07:03 MCH 33.2 pg (27.0-33.0) H 06/20/18 07:03 MCHC 32.3 g/dL (32.0-36.0) 06/20/18 07:03 RDW 12.4 % (11.8-14.1) 06/20/18 07:03 Plt Count 334 x1000/uL (130-400) 06/20/18 07:03 MPV 10.7 fL (8.0-11.0) 06/20/18 07:03 Immature Gran % 0.0 06/20/18 07:03 Neutrophils % 81.0 06/20/18 07:03 Band Neutrophils % 7.0 % 06/20/18 07:03 Lymphocytes % 5.0 06/20/18 07:03 Monocytes % 5.0 06/20/18 07:03 Eosinophils % 0.0 06/20/18 07:03 Basophils % 0.0 06/20/18 07:03 Absolute Neutrophils 15.07 k/cumm (1.2-6.7) H 06/20/18 07:03 Band Neutrophils 2.0 % 06/19/18 07:12 Absolute Lymphocytes 0.86 k/cumm (1.2-3.4) L 06/20/18 07:03 Absolute Monocytes 0.86 k/cumm (0.11-0.7) H 06/20/18 07:03 Absolute Eosinophils 0.00 k/cumm (0.0-0.7) 06/20/18 07:03 Absolute Basophils 0.00 k/cumm (0.0-0.2) 06/20/18 07:03 Metamyelocytes 1.0 % 06/20/18 07:03 Myelocytes 1.0 % 06/20/18 07:03 Differential Comment Manual differential 06/20/18 07:03 RBC Morphology See below 06/20/18 07:03 Polychromasia Present 06/20/18 07:03 Poikilocytosis 1+ 06/19/18 07:12 Stomatocytes 2+ 06/20/18 07:03 PT 9.5 sec (9.3-11.0) 06/10/18 06:25 INR 1.0 (0.9-1.1) 06/10/18 06:25 Sodium 140 mmol/L (136-145) 06/20/18 07:03 Potassium 3.6 mmol/L (3.5-5.1) 06/20/18 07:03 Chloride 104 mmol/L (98-107) 06/20/18 07:03 Carbon Dioxide 29.1 mmol/L (21.0-32.0) 06/20/18 07:03 Anion Gap 6.9 mmol/L (3-11) 06/20/18 07:03 BUN 10 mg/dL (7-18) 06/20/18 07:03 Creatinine 0.57 mg/dL (0.70-1.30) L 06/20/18 07:03 Estimated GFR/1.73 m2 >= 60.00 (mL/min/1.73m2) 06/20/18 07:03 Glucose 116 mg/dL (70-100) H 06/20/18 07:03 Calcium 7.6 mg/dL (8.5-10.1) L 06/20/18 07:03 Magnesium 2.3 mg/dL (1.8-2.4) 06/20/18 07:03 Total Bilirubin 0.7 mg/dL (0.2-1.0) 06/16/18 06:25 Conjugated Bilirubin 0.34 mg/dL (0.00-0.20) H 06/16/18 06:25 AST 30 U/L (15-37) 06/16/18 06:25 ALT 32 U/L (12-78) 06/16/18 06:25 Alkaline Phosphatase 147 U/L (46-116) H 06/16/18 06:25 Troponin I < 0.02 ng/mL (0.00-0.06) 06/09/18 10:30 Total Protein 5.1 g/dL (6.4-8.2) L 06/16/18 06:25 Albumin 1.6 g/dL (3.4-5.0) L 06/16/18 06:25 Lipase 766 U/L (73-393) H 06/13/18 06:10 Urine Color Yellow (Yellow) 06/17/18 11:00 Urine Clarity Clear 06/17/18 11:00 Urine pH 7.5 (5-8) 06/17/18 11:00 Ur Specific [place] 1.015 (1.005-1.025) 06/17/18 11:00 Urine Protein Negative mg/dL (Negative) 06/17/18 11:00 Urine Ketones Negative mg/dL (Negative) 06/17/18 11:00 Urine Blood Trace-lysed (Negative) H 06/17/18 11:00 Urine Nitrite Negative (Negative) 06/17/18 11:00 Urine Bilirubin Negative (Negative) 06/17/18 11:00 Urine Urobilinogen 0.2 EU/dL (Up TO 0.2) 06/17/18 11:00 Ur Leukocyte Esterase Negative (Negative) 06/17/18 11:00 Urine RBC 5-10 (0-2) H 06/17/18 11:00 Urine WBC Negative HPF (0-5) 06/17/18 11:00 Ur Epithelial Cells Negative HPF (Negative) 06/17/18 11:00 Urine Crystals Negative HPF (Negative) 06/17/18 11:00 Urine Bacteria Few HPF (Negative) 06/17/18 11:00 Urine Casts Negative LPF (Negative) 06/17/18 11:00 Urine Mucus Negative (Negative) 06/17/18 11:00 Urine Other Negative (Negative) 06/17/18 11:00 Ur Culture Indicated? No 06/17/18 11:00 Urine Glucose Negative mg/dL (Negative) 06/17/18 11:00 Hepatitis A IgM Ab Negative (NEGAT) 06/09/18 11:30 Hep Bs Antigen Negative (NEGAT) 06/09/18 11:30 Hep B Core Total Ab Negative (NEGAT) 06/09/18 11:30 Hepatitis C Antibody Negative (NEGAT) 06/09/18 11:30
[2018-06-20] MEDS: Furosemide 20 MG/2 ML VIAL IVP (13:16)
--- NOTE | 2018-06-20 14:48 | PT.INTREAT ---
Date of service: 06/20/18 Time of Service: 14:48 PT Notes Inpatient Physical Therapy Treatment Note [facility] Date: 06/20/18 PRECAUTIONS: Fall SUBJECTIVE: Iggy states that he is still having significant pain in his low back and his abdominal area. OBJECTIVE: PAIN: See subjective portion of this note BED MOBILITY/TRANSFERS Supine-sit: I Sit-supine: I Sit-stand: CGA Stand-sit: CGA GAIT Assistive Device: FWW Weight bearing: Full Assist: CGA Distance: 50' x2 Deviation: Seated rest x1, cueing for pacing THEREX: Patient completed an UE and LE strengthening program, as per flow sheet. He was able to tolerate a slight progression in his program, modifications made to reps are noted on flow sheet. ASSESSMENT: Patient tolerated session with complaints of low back pain and abdominal pain. He was able to tolerate a progression in gait training with FWW support and CGA. He continues to require cueing for pacing for safety. Patient would benefit from continued gait and transfer training as well as strengthening for improved mobility. PLAN: Continue with PT's POC TREATMENT CODE/TIME: 30 minutes; ([id number], [id number])
[2018-06-20 17:34] LABS: Vancomycin, Trough 18.6 ug/mL (10.0-20.0)
[2018-06-20] MEDS: VANCOMYCIN 1,250 MG in Normal Saline 250 ML 166.667 MG IVPB (18:12)
[2018-06-20] MEDS: Acetaminophen 325 MG TAB PO (23:42)
[2018-06-21] VITALS (21 sets, daily range): BP systolic 110–169; BP diastolic 70–97; PULSE 87–103; RESP 15–28; TEMP 36.4–37.6; O2SAT 91–95
[2018-06-21] MEDS: PIPERACILLIN/TAZO 3.375 GM in Normal Saline 50 ML IVPB ×4 (01:33→20:08)
[2018-06-21] MEDS: VANCOMYCIN 1,250 MG in Normal Saline 250 ML 166.7 MG IVPB ×2 (02:03→10:09)
[2018-06-21] MEDS: LORazepam 1 MG TAB PO/SL ×4 (04:44→23:22)
[2018-06-21] MEDS: Acetaminophen 325 MG TAB PO ×2 (05:09→12:56)
[2018-06-21] MEDS: Normal Saline Flush 10 ML SYR IVP ×3 (06:08→20:06)
[2018-06-21 07:00] LABS: Abs Immature Grans 0.31 k/cumm (0.0-0.09); Absolute Basophil Count 0.04 k/cumm (0.0-0.2); Absolute Eosinophil Count 0.08 k/cumm (0.0-0.7); Absolute Lymphocyte Count 0.58 k/cumm (1.2-3.4); Absolute Monocyte Count 1.29 k/cumm (0.11-0.7); Absolute Neutrophil Count 10.61 k/cumm (1.2-6.7); Basophils % 0.3; Eosinophils % 0.6; HCT 33.1 % (40.0-50.0); HGB 10.5 g/dL (13.5-17.5); Immature Grans % 2.4; Lymphocytes % 4.5; Mean Corp. HGB Concentration 31.7 g/dL (32.0-36.0); Mean Corpuscular Hemoglobin 32.6 pg (27.0-33.0); Mean Corpuscular Volume 102.8 fL (80-95); Mean Platelet Volume 11.1 fL (8.0-11.0); Neutrophils % 82.2; Platelet Count 369 x1000/uL (130-400); RBC 3.22 m/cumm (4.50-6.00); RBC Distribution Width 12.4 % (11.8-14.1); White Blood Cell Count 12.91 k/cumm (4.4-10.8)
[2018-06-21 07:11] LABS: Anion Gap 6.8 mmol/L (3-11); BUN 11 mg/dL (7-18); CO2 30.2 mmol/L (21.0-32.0); CREATININE 0.68 mg/dL (0.70-1.30); Calcium 7.9 mg/dL (8.5-10.1); Chloride 104 mmol/L (98-107); Glucose 93 mg/dL (70-100); Magnesium 2.4 mg/dL (1.8-2.4); Potassium 3.6 mmol/L (3.5-5.1); Sodium 141 mmol/L (136-145)
--- NOTE | 2018-06-21 07:15 | W.PM.PROGNOT ---
Date of Service Date of service: 06/21/18 Time of Service: 07:15 Assessment and Plan (1) Colon distention: Current visit: No Status: Acute cont neostigmine will Sign Off, call if needed Subjective Patient reports: no new complaints Interval history since last seen: pt has no new changes cont to have distended colon with no surgical intervention needed Exam Const General: comfortable and no acute distress GI Inspection: normal to inspection and distended Percussion: normal to percussion Auscultation: normal bowel sounds Objective Objective Clinical Data: Abnormal lab results 06/20/18 06/20/18 Range/Units 07:03 07:03 WBC 17.13 H (4.4-10.8) k/cumm RBC 3.34 L (4.50-6.00) m/cumm Hgb 11.1 L (13.5-17.5) g/dL Hct 34.4 L (40.0-50.0) % MCV 103.0 H (80-95) fL MCH 33.2 H (27.0-33.0) pg Absolute Neutrophils 15.07 H (1.2-6.7) k/cumm Absolute Lymphocytes 0.86 L (1.2-3.4) k/cumm Absolute Monocytes 0.86 H (0.11-0.7) k/cumm Creatinine 0.57 L (0.70-1.30) mg/dL Glucose 116 H (70-100) mg/dL Calcium 7.6 L (8.5-10.1) mg/dL Vital Signs Temperature 36.6 C 06/20/18 21:40 Temperature Source Temporal Artery Scan 06/20/18 21:40 Pulse 88 06/21/18 04:00 Pulse Rhythm Regular 06/12/18 08:00 Pulse 94 H 06/21/18 06:00 Respiratory Rate 24 06/21/18 06:00 Respiratory Effort Non-Labored 06/21/18 03:55 Respiratory Depth Normal 06/21/18 03:55 Respiratory Pattern Normal 06/21/18 03:55 Blood Pressure 120/74 06/21/18 04:00 Blood Pressure Mean 85 06/21/18 04:00 Blood Pressure Position Supine 06/20/18 23:50 Pulse Oximetry 91 L 06/21/18 00:01 Oxygen Delivery Method Room Air 06/20/18 23:50 Oxygen Flow Rate 0 06/20/18 23:50 Pain Level 8 06/21/18 05:09 Comment 06/17/18 01:50 Intake & Output 06/20/18 06/20/18 06/21/18 11:59 23:59 11:59 Intake Total 1339.75 / 3480.750 2141.000 / 3480.750 1283 / 1283 Output Total 1430 / 6530 5100 / 6530 1600 / 1600 Balance -90.25 / -3049.250 -2959.000 / -3049.250 -317 / -317 Weight 71 kg Intake: IV 849.75 / 2790.750 1941.000 / 2790.750 1283 / 1283 Oral 490 / 690 200 / 690 Output: Urine 1400 / 6225 4825 / 6225 1600 / 1600 Stool 30 / 305 275 / 305 Other: Urine Color Pale Yellow Yellow Yellow Urine Appearance Clear Clear Clear Comment Lomax patent and draining yellow urine. lomax lomax Stool Occult Blood Negative Negative Stool Size Large Stool Characteristics Liquid Liquid Green Brown Black Laboratory Results WBC 17.13 k/cumm (4.4-10.8) H 06/20/18 07:03 RBC 3.34 m/cumm (4.50-6.00) L 06/20/18 07:03 Hgb 11.1 g/dL (13.5-17.5) L 06/20/18 07:03 Hct 34.4 % (40.0-50.0) L 06/20/18 07:03 MCV 103.0 fL (80-95) H 06/20/18 07:03 MCH 33.2 pg (27.0-33.0) H 06/20/18 07:03 MCHC 32.3 g/dL (32.0-36.0) 06/20/18 07:03 RDW 12.4 % (11.8-14.1) 06/20/18 07:03 Plt Count 334 x1000/uL (130-400) 06/20/18 07:03 MPV 10.7 fL (8.0-11.0) 06/20/18 07:03 Immature Gran % 0.0 06/20/18 07:03 Neutrophils % 81.0 06/20/18 07:03 Band Neutrophils % 7.0 % 06/20/18 07:03 Lymphocytes % 5.0 06/20/18 07:03 Monocytes % 5.0 06/20/18 07:03 Eosinophils % 0.0 06/20/18 07:03 Basophils % 0.0 06/20/18 07:03 Absolute Neutrophils 15.07 k/cumm (1.2-6.7) H 06/20/18 07:03 Band Neutrophils 2.0 % 06/19/18 07:12 Absolute Lymphocytes 0.86 k/cumm (1.2-3.4) L 06/20/18 07:03 Absolute Monocytes 0.86 k/cumm (0.11-0.7) H 06/20/18 07:03 Absolute Eosinophils 0.00 k/cumm (0.0-0.7) 06/20/18 07:03 Absolute Basophils 0.00 k/cumm (0.0-0.2) 06/20/18 07:03 Metamyelocytes 1.0 % 06/20/18 07:03 Myelocytes 1.0 % 06/20/18 07:03 Differential Comment Manual differential 06/20/18 07:03 RBC Morphology See below 06/20/18 07:03 Polychromasia Present 06/20/18 07:03 Poikilocytosis 1+ 06/19/18 07:12 Stomatocytes 2+ 06/20/18 07:03 PT 9.5 sec (9.3-11.0) 06/10/18 06:25 INR 1.0 (0.9-1.1) 06/10/18 06:25 Sodium 140 mmol/L (136-145) 06/20/18 07:03 Potassium 3.6 mmol/L (3.5-5.1) 06/20/18 07:03 Chloride 104 mmol/L (98-107) 06/20/18 07:03 Carbon Dioxide 29.1 mmol/L (21.0-32.0) 06/20/18 07:03 Anion Gap 6.9 mmol/L (3-11) 06/20/18 07:03 BUN 10 mg/dL (7-18) 06/20/18 07:03 Creatinine 0.57 mg/dL (0.70-1.30) L 06/20/18 07:03 Estimated GFR/1.73 m2 >= 60.00 (mL/min/1.73m2) 06/20/18 07:03 Glucose 116 mg/dL (70-100) H 06/20/18 07:03 Calcium 7.6 mg/dL (8.5-10.1) L 06/20/18 07:03 Magnesium 2.3 mg/dL (1.8-2.4) 06/20/18 07:03 Total Bilirubin 0.7 mg/dL (0.2-1.0) 06/16/18 06:25 Conjugated Bilirubin 0.34 mg/dL (0.00-0.20) H 06/16/18 06:25 AST 30 U/L (15-37) 06/16/18 06:25 ALT 32 U/L (12-78) 06/16/18 06:25 Alkaline Phosphatase 147 U/L (46-116) H 06/16/18 06:25 Troponin I < 0.02 ng/mL (0.00-0.06) 06/09/18 10:30 Total Protein 5.1 g/dL (6.4-8.2) L 06/16/18 06:25 Albumin 1.6 g/dL (3.4-5.0) L 06/16/18 06:25 Lipase 766 U/L (73-393) H 06/13/18 06:10 Urine Color Yellow (Yellow) 06/17/18 11:00 Urine Clarity Clear 06/17/18 11:00 Urine pH 7.5 (5-8) 06/17/18 11:00 Ur Specific [place] 1.015 (1.005-1.025) 06/17/18 11:00 Urine Protein Negative mg/dL (Negative) 06/17/18 11:00 Urine Ketones Negative mg/dL (Negative) 06/17/18 11:00 Urine Blood Trace-lysed (Negative) H 06/17/18 11:00 Urine Nitrite Negative (Negative) 06/17/18 11:00 Urine Bilirubin Negative (Negative) 06/17/18 11:00 Urine Urobilinogen 0.2 EU/dL (Up TO 0.2) 06/17/18 11:00 Ur Leukocyte Esterase Negative (Negative) 06/17/18 11:00 Urine RBC 5-10 (0-2) H 06/17/18 11:00 Urine WBC Negative HPF (0-5) 06/17/18 11:00 Ur Epithelial Cells Negative HPF (Negative) 06/17/18 11:00 Urine Crystals Negative HPF (Negative) 06/17/18 11:00 Urine Bacteria Few HPF (Negative) 06/17/18 11:00 Urine Casts Negative LPF (Negative) 06/17/18 11:00 Urine Mucus Negative (Negative) 06/17/18 11:00 Urine Other Negative (Negative) 06/17/18 11:00 Ur Culture Indicated? No 06/17/18 11:00 Urine Glucose Negative mg/dL (Negative) 06/17/18 11:00 Vancomycin Trough 18.6 ug/mL (10.0-20.0) 06/20/18 17:05 Hepatitis A IgM Ab Negative (NEGAT) 06/09/18 11:30 Hep Bs Antigen Negative (NEGAT) 06/09/18 11:30 Hep B Core Total Ab Negative (NEGAT) 06/09/18 11:30 Hepatitis C Antibody Negative (NEGAT) 06/09/18 11:30
[2018-06-21 07:37] LABS: Diff Comment Agrees w/ Instrument; Macrocytosis 1+
[2018-06-21] MEDS: Budesonide/Formoterol 160/4.5 6 GM 60 PUFF INH IH ×2 (07:58→20:07)
[2018-06-21] MEDS: Pantoprazole 40 MG VIAL IVP ×2 (08:52→20:06)
[2018-06-21] MEDS: Potassium Chloride 20 MEQ TABCR 40 MEQ PO (08:53)
[2018-06-21] MEDS: Metoclopramide 10 MG TAB PO ×2 (08:53→20:06)
[2018-06-21] MEDS: Oxazepam 10 MG CAP PO ×4 (08:53→20:06)
[2018-06-21] MEDS: Gabapentin 400 MG CAP PO ×3 (08:54→20:06)
[2018-06-21] MEDS: THIAMINE 100 MG in Normal Saline 100 ML 200 MG IVPB (10:08)
--- NOTE | 2018-06-21 10:25 | PT.INPN ---
Date of service: 06/21/18 Time of Service: 10:10 PT Notes Inpatient Physical Therapy Progress Note [facility] Date: June PRECAUTIONS:Fall Precautions SUBJECTIVE: 'I'm feeling pretty good. Looking to do another walk with you.' OBJECTIVE: Seen for re-check purposes for progress note and treatment. PAIN: No complaints. Nursing already had patient in sitting position in chair beside bed. BED MOBILITY/TRANSFERS Rolling L/R: Independent Supine-sit: SBA Sit-supine: SBA Sit-stand: SBA with verbal cues for hand placement on arm rest of chair Stand-sit: SBA with verbal cues for hand placement off FWW to chair GAIT Assistive Device: FWW Weight bearing: Full Assist: Min Assist x1 for cueing for pacing purposes and awareness of surroundings. Tends to list to each direction when ambulating if not looking forward with gait. Distance: 200 feet Deviation: To left and right if not looking directly anteriorly when walking. Goals: Goals X1 week 1. Supine-Sit : supervision - progressing 2. Sit-Supine supervision - progressing 3. Sit-Stand supervision with WW - progressing 4. Stand-Sit supervision with WW - progressing 5. Bed-Chair supervision with WW - progressing 6. Chair-Bed supervision with WW - progressing 7. Gait supervision with WW x 25' - progressing 8. Stairs ascend and descend x 5 steps with bilat rails, supervision - not met ASSESSMENT: Assessment: Patient is a 63 year old male referred to physical therapy services with the diagnosis of deconditioning. He is currently hospitalized for medical management of pancreatitis related to chronic alcoholism, as well as pneumonia and pleural effusion. Patient presents with clinical signs and symptoms consistent with diagnosis, as demonstrated by the following impairment level findings: 1. Decreased LE strength 2. Decreased UE strength 3. Decreased balance 4. Decreased coordination 5. Decreased activity tolerance Impairments are contributing to the following functional limitations: 1. Unable to independently get in/out of bed 2. Unable to stand independently 3. Unable to ambulate 4. Poor dynamic sitting balance 5. Unable to manage stairs Progressing well with ambulation. Does require verbal cuing for hand placement with transfers and pacing cues with ambulation to counter his deviation left and right. Also cues for upright standing with walker as he tends to let walker get too far out in front of his body. Safety cues are necessary. He is a fall risk. PLAN: Will continue to see twice a day for strengthening, gait and functional mobility training. TREATMENT CODE/TIME: 50038 TA. 10:10
--- NOTE | 2018-06-21 10:41 | PT.INTREAT ---
Date of service: 06/21/18 Time of Service: 10:41 PT Notes Inpatient Physical Therapy Treatment Note [facility] Date: 06/21/18 PRECAUTIONS: Fall SUBJECTIVE: Iggy states that he is feeling much better this morning, although he continues to have some stomach and low back pain. OBJECTIVE: PAIN: Patient complained stomach and low back pain BED MOBILITY/TRANSFERS Sit-stand: SBA Stand-sit: SBA GAIT Assistive Device: FWW Weight bearing: Full Assist: Min A/CGA Distance: 125' Deviation: Cueing for pacing, FWW mechanics THEREX: Patient completed a resisted UE and a LE strengthening program, as per flow sheet. Patient was able to tolerate the addition of hand weights to his program today. ASSESSMENT: Patient tolerated session well with minimal c/o stomach and low back pain. He was able to tolerate a progression in gait distance with FWW support and Min A with cueing for FWW and gait mechanics as well as for pacing. PLAN: Continue with PT's POC TREATMENT CODE/TIME: 30 minutes; ([id number], [id number])
--- NOTE | 2018-06-21 10:46 | PDOC.CMPRO ---
- If Service Date Differs Date of service: 06/21/18 Time of Service: 10:46 Care Management Progress Note S/O: Iggy is lying in bed when this magnetic tape typewriter operator visits this morning. He states that he walked this morning with nursing staff which he enjoyed. ANNETTA Araiza, states that Iggy will be walking later this morning as well, which Iggy states he is ready for. 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 A: 63 y/o male admitted to [facility] 06/09/18 for Pancreatitis, Alcoholism P: Iggy will continue to be closely monitored at this time. He will likely return home with no additional anticipated services at this time. He will follow up with his PCP and plan of care as prescribed. Iggy will also follow with Shweta Saleh, [facility], whom sees him in the community, as well as Brando Dobson, therapist. Iggy's mom Vee to transport when ready.
--- NOTE | 2018-06-21 10:47 | PTTR_ITS ---
Date of service: 06/21/18 Time of Service: 10:41 PT Notes Inpatient Physical Therapy Treatment Note [facility] Date: 06/21/18 PRECAUTIONS: Fall SUBJECTIVE: Iggy states that he is feeling much better this morning, although he continues to have some stomach and low back pain. OBJECTIVE: PAIN: Patient complained stomach and low back pain BED MOBILITY/TRANSFERS Sit-stand: SBA Stand-sit: SBA GAIT Assistive Device: FWW Weight bearing: Full Assist: Min A/CGA Distance: 125' Deviation: Cueing for pacing, FWW mechanics THEREX: Patient completed a resisted UE and a LE strengthening program, as per flow sheet. Patient was able to tolerate the addition of hand weights to his program today. ASSESSMENT: Patient tolerated session well with minimal c/o stomach and low b ack pain. He was able to tolerate a progression in gait distance with FWW support and Min A with cueing for FWW and gait mechanics as well as for pacing. PLAN: Continue with PT's POC TREATMENT CODE/TIME: 30 minutes; ([id number], [id number])
--- NOTE | 2018-06-21 11:00 | CMPROGNOTE_ITS ---
- If Service Date Differs Date of service: 06/21/18 Time of Service: 10:46 Care Management Progress Note S/O: Iggy is lying in bed when this leader writer visits this morning. He states that he walked this morning with nursing staff which he enjoyed. ANNETTA Araiza, states that Iggy will be walking later this morning as well, which Iggy states he is ready for. 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 A: 63 y/o male admitted to [facility] 06/09/18 for Pancreatitis, Alcoholism P: Iggy will continue to be closely monitored at this time. He will likely return home with no additional anticipated services at this time. He will follow up with his PCP and plan of care as prescribed. Iggy will also follow with Shweta Saleh, [facility], whom sees him in the community, as well as Brando Dobson, therapist. Iggy's mom Vee to transport when ready.
[2018-06-21] MEDS: Ondansetron 4 MG/2 ML VIAL IVP (12:56)
--- NOTE | 2018-06-21 14:09 | PGE_ITS ---
Date of Service Date of service: 06/21/18 Time of Service: 13:58 Assessment and Plan (1) Pneumonia: Current visit: Yes Status: Acute Evidence of fever prompting work-up, with imaging showing infiltrates suspicious for aspiration. Patient had altered mental status, nausea and vomiting in the setting of illness with ileus, and pulled his NGT now on 2-3 prior occasions. Sputum Culture not yet produced, and blood cultures remain negative for 472 hours. As patient had remained febrile with continued leukocytosis, initiated Vancomycin in addition to Pip-Tazo, currently day #3 and #5 respectively. Maintain with elevated HOB, aspiration precautions. Appears overall improved. (2) Ileus: Current visit: Yes Status: Acute In setting of acute pancreatitis - Underwent decompression via CScope 06/15, Reglan initiated, but with continued worsening distention. Following discussion with surgery gave attempt at administration of Neostigmine (with cardiac monitoring) with good results. Repeated course yesterday. Remains distended but vastly improved. Currently with reported passage of loose stools and gas. Currently tolerating fluids, and on TPN. (3) Pancreatitis, acute: Current visit: Yes Status: Acute In setting of ETOH abuse. Continue TPN. Lipase improved. Discontinue IVFs as patient has become mildly volume overloaded. Trial of one time furosemide - blood pressure and renal function are adequate. Qualifiers: Pancreatitis type: unspecified pancreatitis type Acute pancreatitis complication: no infection or necrosis Qualified Code(s): K85.90 - Acute pancreatitis without necrosis or infection, unspecified (4) Alcohol abuse: Current visit: No Status: Acute Reportedly scoring on CIWA due to nighttime hallucinations, but completely oriented during the day. Question whether Mr. Urias has an underlying Encephalopathy such as Wernicke's, acutely exacerbated by illness - from a withdrawl standpoint appears to be doing well. Continue standing Oxazepam and Gabapentin taper, D/c prn IV Ativan, and monitor symptoms closely. Patient exhibiting improving mental status again this morning. (5) Melena: Current visit: Yes Status: Resolved Continue IV PPI on a BID basis. Patient certainly at risk for gastritis and UGI source given alcohol history. Monitor Hgb - currently stable. (6) COPD (chronic obstructive pulmonary disease): Current visit: No Status: Chronic Appears quiescent. Continue Home Inhaler therapy with Tiotropium, IGC/LABA. (7) DVT prophylaxis: Current visit: Yes Status: Acute SCDs given GIB. Subjective Interval history since last seen: 63 year old man with a prior history of ETOH abuse, admitted from [facility] Emergency Department with a diagnosis of Acute Pancreatitis. Mr. Urias has a history of of non-oxygen dependent COPD, ETOH abuse, anxiety, and lung cancer s/p radiation. He presented to the ED complaining of shortness of breath and epigastric pain. His lipase was found to be elevated and his imaging showed evidence of acute pancreatitis - he was also noted to have hemalatha dence of an ileus by CT of the abdomen with colonic distention without obstruction. He was also noted to have melena by report. The patient has been going through treatment for acute pancreatitis successfully with appropriate decrease in lipase. However due to worsening abdominal pain and distention a repeat CT was obtained showing worsening colonic dilation. He was intolerant of NGT placement and underwent a colonoscopy for decompression on 06/15. Another NGT was put in place, again pulled out by patient. The patient also is reportedly a daily 6 pack beer drinking, with his last drink coming on the morning of admission. He has been maintained on the CIWA protocol and was continues intermittently scoring high on the CIWA scale, last night again due to hallucinations. This mornning he is again oriented X3. He is also on antibiotic therapy for likely Aspiration Pneumonia. Nursing reports continued loose bowel movements and Mr. Urias is tolerating oral intake with fluids, but also with continued abdominal distention that has improved following repeat administration of Neostigmine. No other events reported. Exam Narrative Exam Narrative: General: Patient is awake - appears clear and oriented. NAD Neck: Supple CV: Regular, nontachycardic, S1S2, No rubs, murmurs, or gallops. Pulmonary: Bibasilar crackles. Abdomen: + Bowel Sounds but hypoactive, soft, mildly diffusely tender. Continued distention noted, improved. Vascular: No lower extremity edema Psych: Normal mood and affect. Objective Objective Clinical Data: Abnormal lab results 06/21/18 06/21/18 Range/Units 06:10 06:10 WBC 12.91 H (4.4-10.8) k/cumm RBC 3.22 L (4.50-6.00) m/cumm Hgb 10.5 L (13.5-17.5) g/dL Hct 33.1 L (40.0-50.0) % MCV 102.8 H (80-95) fL MCHC 31.7 L (32.0-36.0) g/dL MPV 11.1 H (8.0-11.0) fL Absolute Neutrophils 10.61 H (1.2-6.7) k/cumm Absolute Lymphocytes 0.58 L (1.2-3.4) k/cumm Absolute Monocytes 1.29 H (0.11-0.7) k/cumm Creatinine 0.68 L (0.70-1.30) mg/dL Calcium 7.9 L (8.5-10.1) mg/dL Vital Signs Temperature 37.4 C 06/21/18 12:12 Temperature Source Temporal Artery Scan 06/21/18 12:12 Pulse 93 H 06/21/18 12:03 Pulse Rhythm Regular 06/12/18 08:00 Pulse 88 06/21/18 12:03 Respiratory Rate 17 06/21/18 12:03 Respiratory Effort Non-Labored 06/21/18 12:12 Respiratory Depth Normal 06/21/18 12:12 Respiratory Pattern Normal 06/21/18 12:12 Blood Pressure 133/83 06/21/18 12:03 Blood Pressure Mean 95 06/21/18 12:03 Blood Pressure Position Supine 06/21/18 12:12 Pulse Oximetry 93 L 06/21/18 12:03 Oxygen Delivery Method Room Air 06/21/18 12:12 Oxygen Flow Rate 0 06/21/18 12:12 Pain Level 10 06/21/18 12:56 Comment 06/17/18 01:50 Intake & Output 06/20/18 06/21/18 06/21/18 23:59 11:59 23:59 Intake Total 2141.000 / 3480.750 1583 / 1583 Output Total 5100 / 6530 1620 / 3070 1450 / 3070 Balance -2959.000 / -3049.250 -37 / -1487 -1450 / -1487 Weight 64.5 kg Intake: IV 1941.000 / 2790.750 1583 / 1583 Oral 200 / 690 Output: Urine 4825 / 6225 1600 / 3050 1450 / 3050 Stool 275 / 305 Other: Urine Color Yellow Yellow Yellow Urine Appearance Clear Clear Clear Comment lomax Lomax intact and draining clear yellow urine. Lomax intact and draining clear yellow urine. Stool Occult Blood Negative Negative Stool Size Small Stool Characteristics Liquid Mucoid Brown Brown Black Laboratory Results WBC 12.91 k/cumm (4.4-10.8) H 06/21/18 06:10 RBC 3.22 m/cumm (4.50-6.00) L 06/21/18 06:10 Hgb 10.5 g/dL (13.5-17.5) L 06/21/18 06:10 Hct 33.1 % (40.0-50.0) L 06/21/18 06:10 MCV 102.8 fL (80-95) H 06/21/18 06:10 MCH 32.6 pg (27.0-33.0) 06/21/18 06:10 MCHC 31.7 g/dL (32.0-36.0) L 06/21/18 06:10 RDW 12.4 % (11.8-14.1) 06/21/18 06:10 Plt Count 369 x1000/uL (130-400) 06/21/18 06:10 MPV 11.1 fL (8.0-11.0) H 06/21/18 06:10 Immature Gran % 2.4 06/21/18 06:10 Neutrophils % 82.2 06/21/18 06:10 Band Neutrophils % 7.0 % 06/20/18 07:03 Lymphocytes % 4.5 06/21/18 06:10 Monocytes % 10.0 06/21/18 06:10 Eosinophils % 0.6 06/21/18 06:10 Basophils % 0.3 06/21/18 06:10 Absolute Neutrophils 10.61 k/cumm (1.2-6.7) H 06/21/18 06:10 Band Neutrophils 2.0 % 06/19/18 07:12 Absolute Lymphocytes 0.58 k/cumm (1.2-3.4) L 06/21/18 06:10 Absolute Monocytes 1.29 k/cumm (0.11-0.7) H 06/21/18 06:10 Absolute Eosinophils 0.08 k/cumm (0.0-0.7) 06/21/18 06:10 Absolute Basophils 0.04 k/cumm (0.0-0.2) 06/21/18 06:10 Metamyelocytes 1.0 % 06/20/18 07:03 Myelocytes 1.0 % 06/20/18 07:03 Differential Comment Agrees w/ instrument 06/21/18 06:10 RBC Morphology See below 06/21/18 06:10 Polychromasia Present 06/20/18 07:03 Poikilocytosis 1+ 06/19/18 07:12 Macrocytosis 1+ 06/21/18 06:10 Stomatocytes 2+ 06/20/18 07:03 PT 9.5 sec (9.3-11.0) 06/10/18 06:25 INR 1.0 (0.9-1.1) 06/10/18 06:25 Sodium 141 mmol/L (136-145) 06/21/18 06:10 Potassium 3.6 mmol/L (3.5-5.1) 06/21/18 06:10 Chloride 104 mmol/L (98-107) 06/21/18 06:10 Carbon Dioxide 30.2 mmol/L (21.0-32.0) 06/21/18 06:10 Anion Gap 6.8 mmol/L (3-11) 06/21/18 06:10 BUN 11 mg/dL (7-18) 06/21/18 06:10 Creatinine 0.68 mg/dL (0.70-1.30) L 06/21/18 06:10 Estimated GFR/1.73 m2 >= 60.00 (mL/min/1.73m2) 06/21/18 06:10 Glucose 93 mg/dL (70-100) 06/21/18 06:10 Calcium 7.9 mg/dL (8.5-10.1) L 06/21/18 06:10 Magnesium 2.4 mg/dL (1.8-2.4) 06/21/18 06:10 Total Bilirubin 0.7 mg/dL (0.2-1.0) 06/16/18 06:25 Conjugated Bilirubin 0.34 mg/dL (0.00-0.20) H 06/16/18 06:25 AST 30 U/L (15-37) 06/16/18 06:25 ALT 32 U/L (12-78) 06/16/18 06:25 Alkaline Phosphatase 147 U/L (46-116) H 06/16/18 06:25 Troponin I < 0.02 ng/mL (0.00-0.06) 06/09/18 10:30 Total Protein 5.1 g/dL (6.4-8.2) L 06/16/18 06:25 Albumin 1.6 g/dL (3.4-5.0) L 06/16/18 06:25 Lipase 766 U/L (73-393) H 06/13/18 06:10 Urine Color Yellow (Yellow) 06/17/18 11:00 Urine Clarity Clear 06/17/18 11:00 Urine pH 7.5 (5-8) 06/17/18 11:00 Ur Specific [place] 1.015 (1.005-1.025) 06/17/18 11:00 Urine Protein Negative mg/dL (Negative) 06/17/18 11:00 Urine Ketones Negative mg/dL (Negative) 06/17/18 11:00 Urine Blood Trace-lysed (Negative) H 06/17/18 11:00 Urine Nitrite Negative (Negative) 06/17/18 11:00 Urine Bilirubin Negative (Negative) 06/17/18 11:00 Urine Urobilinogen 0.2 EU/dL (Up TO 0.2) 06/17/18 11:00 Ur Leukocyte Esterase Negative (Negative) 06/17/18 11:00 Urine RBC 5-10 (0-2) H 06/17/18 11:00 Urine WBC Negative HPF (0-5) 06/17/18 11:00 Ur Epithelial Cells Negative HPF (Negative) 06/17/18 11:00 Urine Crystals Negative HPF (Negative) 06/17/18 11:00 Urine Bacteria Few HPF (Negative) 06/17/18 11:00 Urine Casts Negative LPF (Negative) 06/17/18 11:00 Urine Mucus Negative (Negative) 06/17/18 11:00 Urine Other Negative (Negative) 06/17/18 11:00 Ur Culture Indicated? No 06/17/18 11:00 Urine Glucose Negative mg/dL (Negative) 06/17/18 11:00 Vancomycin Trough 18.6 ug/mL (10.0-20.0) 06/20/18 17:05 Hepatitis A IgM Ab Negative (NEGAT) 06/09/18 11:30 Hep Bs Antigen Negative (NEGAT) 06/09/18 11:30 Hep B Core Total Ab Negative (NEGAT) 06/09/18 11:30 Hepatitis C Antibody Negative (NEGAT) 06/09/18 11:30
--- NOTE | 2018-06-21 15:09 | PT.INTREAT ---
Date of service: 06/21/18 Time of Service: 14:40 PT Notes Inpatient Physical Therapy Treatment Note [facility] Date: 06/21/18 PRECAUTIONS:fall, standard SUBJECTIVE: Iggy states that he is having a great deal of abdominal pain. OBJECTIVE: BED MOBILITY/TRANSFERS Supine-sit: independent Sit-supine: independent Sit-stand: SBA Stand-sit: SBA GAIT Assistive Device: FWW Weight bearing: full Assist: min A x 1, second person for management of lines Distance: 200' Deviation: path deviation with need for max cues for safety THEREX: Patient was instructed in progressed therex program, including addition of ankle weights for LE strengthening exercises. ASSESSMENT: Tolerating increased distance with ambulation, although with continued ataxia and limitations in safety awareness. PLAN: Continue progressing strengthening and ambulation as tolerated. TREATMENT CODE/TIME: 30minutes ([id number])
[2018-06-21] MEDS: VANCOMYCIN 1,250 MG in Normal Saline 250 ML 167 MG IVPB (18:19)
[2018-06-22] VITALS (16 sets, daily range): BP systolic 125–154; BP diastolic 76–91; PULSE 83–103; RESP 14–27; TEMP 36.8–37.4; O2SAT 92–95
[2018-06-22] MEDS: PIPERACILLIN/TAZO 3.375 GM in Normal Saline 50 ML IVPB ×4 (01:47→19:59)
[2018-06-22] MEDS: VANCOMYCIN 1,250 MG in Normal Saline 250 ML 167 MG IVPB (02:15)
[2018-06-22] MEDS: Normal Saline Flush 10 ML SYR IVP ×5 (06:23→19:55)
[2018-06-22 07:30] LABS: Absolute Basophil Count 0.03 k/cumm (0.0-0.2); Absolute Eosinophil Count 0.08 k/cumm (0.0-0.7); Absolute Lymphocyte Count 0.65 k/cumm (1.2-3.4); Absolute Monocyte Count 1.17 k/cumm (0.11-0.7); Basophils % 0.2; Eosinophils % 0.6; HCT 31.7 % (40.0-50.0); HGB 9.7 g/dL (13.5-17.5); Immature Grans % 1.5; Lymphocytes % 4.9; Mean Corp. HGB Concentration 30.6 g/dL (32.0-36.0); Mean Corpuscular Hemoglobin 31.9 pg (27.0-33.0); Mean Corpuscular Volume 104.3 fL (80-95); Mean Platelet Volume 11.3 fL (8.0-11.0); Monocytes % 8.8; Platelet Count 416 x1000/uL (130-400); RBC 3.04 m/cumm (4.50-6.00); RBC Distribution Width 12.4 % (11.8-14.1); White Blood Cell Count 13.25 k/cumm (4.4-10.8)
[2018-06-22 07:37] LABS: Absolute Neutrophil Count 11.13 k/cumm (1.2-6.7)
[2018-06-22 07:47] LABS: Anion Gap 5.8 mmol/L (3-11); BUN 9 mg/dL (7-18); CO2 26.2 mmol/L (21.0-32.0); CREATININE 0.82 mg/dL (0.70-1.30); Calcium 7.8 mg/dL (8.5-10.1); Chloride 97 mmol/L (98-107); Magnesium 2.8 mg/dL (1.8-2.4); Potassium 4.8 mmol/L (3.5-5.1); Sodium 129 mmol/L (136-145)
[2018-06-22 07:57] LABS: Glucose 679 mg/dL (70-100)
[2018-06-22] MEDS: Oxazepam 10 MG CAP PO ×2 (08:44→11:28)
[2018-06-22] MEDS: Gabapentin 400 MG CAP PO ×3 (08:44→19:55)
[2018-06-22] MEDS: Pantoprazole 40 MG VIAL IVP ×2 (09:08→19:54)
--- NOTE | 2018-06-22 10:03 | PDOC.CMPRO ---
- If Service Date Differs Date of service: 06/22/18 Time of Service: 10:03 Care Management Progress Note S/O: Iggy is sitting on the edge of his bed eating breakfast when this curriculum writer visits this morning. Iggy states that he didn't sleep well last night, and hasn't for two nights in a row and is very tired. CM discussed DC plans with Iggy and a sober environment. Iggy states that there will be no alcohol in his home and that he wants to work hard on his sobriety. Discussed Iggy continuing to talk with Brando Dobson, Therapist, in regards to maintaining a sober lifestyle. A: 63 y/o male admitted to [facility] 06/09/18 for Pancreatitis, Alcoholism P: Iggy will continue to be closely monitored at this time. He will likely return home with no additional anticipated services at this time. He will follow up with his PCP and plan of care as prescribed. Iggy will also follow with Shweta Saleh, [facility], whom sees him in the community, as well as Brando Dobson, therapist. Iggy's mom Vee to transport when ready.
[2018-06-22 10:18] LABS: Abs Immature Grans 0.31 k/cumm (0.0-0.09); Absolute Basophil Count 0.04 k/cumm (0.0-0.2); Absolute Eosinophil Count 0.07 k/cumm (0.0-0.7); Absolute Lymphocyte Count 0.56 k/cumm (1.2-3.4); Absolute Monocyte Count 1.23 k/cumm (0.11-0.7); Absolute Neutrophil Count 11.89 k/cumm (1.2-6.7); Basophils % 0.3; Eosinophils % 0.5; HCT 32.8 % (40.0-50.0); HGB 10.6 g/dL (13.5-17.5); Immature Grans % 2.2; Mean Corp. HGB Concentration 32.3 g/dL (32.0-36.0); Mean Corpuscular Hemoglobin 32.7 pg (27.0-33.0); Mean Corpuscular Volume 101.2 fL (80-95); Mean Platelet Volume 10.5 fL (8.0-11.0); Monocytes % 8.7; Neutrophils % 84.3; Platelet Count 377 x1000/uL (130-400); RBC 3.24 m/cumm (4.50-6.00); RBC Distribution Width 12.4 % (11.8-14.1)
--- NOTE | 2018-06-22 10:39 | CMPROGNOTE_ITS ---
- If Service Date Differs Date of service: 06/22/18 Time of Service: 10:03 Care Management Progress Note S/O: Iggy is sitting on the edge of his bed eating breakfast when this short story writer visits this morning. Iggy states that he didn't sleep well last night, and hasn't for two nights in a row and is very tired. CM discussed DC plans with Iggy and a sober environment. Iggy states that there will be no alcohol in his home and that he wants to work hard on his sobriety. Discussed Iggy continuing to talk with Brando Dobson, Therapist, in regards to maintaining a sober lifestyle. A: 63 y/o male admitted to [facility] 06/09/18 for Pancreatitis, Alcoholism P: Iggy will continue to be closely monitored at this time. He will likely return home with no additional anticipated services at this time. He will follow up with his PCP and plan of care as prescribed. Iggy will also follow with Shweta Saleh, [facility], whom sees him in the community, as well as Brando Dobson, therapist. Iggy's mom Vee to transport when ready.
[2018-06-22 10:40] LABS: Anion Gap 7.4 mmol/L (3-11); BUN 11 mg/dL (7-18); CO2 29.6 mmol/L (21.0-32.0); CREATININE 0.77 mg/dL (0.70-1.30); Calcium 7.9 mg/dL (8.5-10.1); Chloride 101 mmol/L (98-107); Glucose 111 mg/dL (70-100); Potassium 3.5 mmol/L (3.5-5.1); Sodium 138 mmol/L (136-145)
[2018-06-22 10:50] LABS: Vancomycin, Trough 21.4 ug/mL (10.0-20.0)
[2018-06-22] MEDS: Acetaminophen 325 MG TAB PO (11:27)
[2018-06-22] MEDS: VANCOMYCIN 1,000 MG in Normal Saline 250 ML 166.667 MG IVPB (11:49)
--- NOTE | 2018-06-22 11:53 | PGE_ITS ---
Date of Service Date of service: 06/22/18 Time of Service: 11:44 Assessment and Plan (1) Pneumonia: Current visit: Yes Status: Acute Evidence of fever prompting work-up, with imaging showing infiltrates suspicious for aspiration. Patient had altered mental status, nausea and vomiting in the setting of illness with ileus, and pulled his NGT on 2-3 prior occasions. Sputum Culture not produced, and blood cultures remain negative for 96 hours. As patient had remained febrile with continued leukocytosis, initiated Vancomycin in addition to Pip-Tazo, currently day #4 and #6 respectively of a planned 7 day course. Maintain with elevated HOB, aspiration precautions. Appears overall improved. (2) Ileus: Current visit: Yes Status: Acute In setting of acute pancreatitis - Underwent decompression via CScope 06/15, Reglan initiated, but with continued worsening distention. Following discussion with surgery gave attempt at administration of Neostigmine (with cardiac monitoring) with good results. Repeated course on 06/20. Remains distended but vastly improved, now with near normal bowel sounds and tolerating oral intake. Currently with reported passage of loose stools and gas. Will d/c TPN. (3) Pancreatitis, acute: Current visit: Yes Status: Acute In setting of ETOH abuse. Lipase improved. Current mild abdominal discomfort likely due to ongoing but improved ileus. Continue to advance diet as tolerated. Qualifiers: Pancreatitis type: unspecified pancreatitis type Acute pancreatitis complication: no infection or necrosis Qualified Code(s): K85.90 - Acute pancreatitis without necrosis or infection, unspecified (4) Alcohol abuse: Current visit: No Status: Acute Reportedly scoring on CIWA due to nighttime hallucinations, but completely oriented during the day. Only scoring for anxiety last night. Very atypical presentation for continued withdrawl nearly 2 weeks into hospitalization. Question whether Mr. Urias has an underlying Encephalopathy such as Wernicke's, acutely exacerbated by illness - from a withdrawl standpoint appears to be doing well. Discontinue standing Oxazepam and conclude Gabapentin taper, D/c prn IV Ativan and CIWA protocol, and monitor symptoms closely. Initiate low dose QHS Seroquel. Patient exhibiting improved and normal mental status again this morning. (5) Melena: Current visit: Yes Status: Resolved Continue IV PPI on a BID basis. Patient certainly at risk for gastritis and UGI source given alcohol history. Monitor Hgb - currently stable. (6) COPD (chronic obstructive pulmonary disease): Current visit: No Status: Chronic Appears quiescent. Continue Home Inhaler therapy with Tiotropium, IGC/LABA. (7) DVT prophylaxis: Current visit: Yes Status: Acute SCDs given GIB. Subjective Interval history since last seen: 63 year old man with a prior history of ETOH abuse, admitted from [facility] Emergency Department with a diagnosis of Acute Pancreatitis. Mr. Urias has a history of of non-oxygen dependent COPD, ETOH abuse, anxiety, and lung cancer s/p radiation. He presented to the ED complaining of shortness of breath and epigastric pain. His lipase was found to be elevated and his imaging showed evidence of acute pancreatitis - he was also noted to have evidence of an ileus by CT of the abdomen with colonic distention without obstruction. He was also noted to have melena by report. The patient has been going through treatment for acute pancreatitis successfully with appropriate decrease in lipase. However due to worsening abdominal pain and distention a repeat CT was obtained showing worsening colonic dilation. He was intolerant of NGT placement and underwent a colonoscopy for decompression on 06/15. Another NGT was put in place, again pulled out by patient. Mr. Urias also is reportedly a daily 6 pack beer drinker, with his last drink coming on the morning of admission. He has been maintained on the CIWA protocol and continues intermittently scoring high on the CIWA scale, mostly at night. Previously noted to have hallucinations. Last night he was given ativan for scoring for 'anxiety'. This mornning he is again oriented X3. He is also on antibiotic therapy for likely Aspiration Pneumonia. Nursing reports continued loose bowel movements. The patient is tolerating oral intake with fluids, but also with continued abdominal distention that has improved following repeat administration of Neostigmine. No other events reported. Exam Narrative Exam Narrative: General: Patient is awake - appears clear and oriented X3 again this morning. NAD Neck: Supple CV: Regular, nontachycardic, S1S2, No rubs, murmurs, or gallops. Pulmonary: Bibasilar crackles appear resolved. No rhonchi or wheezing. Abdomen: + Bowel Sounds vastly improved and no longer hypoactive, soft, mildly diffusely tender. Continued distention noted, but again improved. Vascular: No lower extremity edema Psych: Normal mood and affect. Objective Objective Clinical Data: Abnormal lab results 06/22/18 06/22/18 06/22/18 Range/Units 06:40 06:40 10:09 WBC 13.25 H (4.4-10.8) k/cumm RBC 3.04 L (4.50-6.00) m/cumm Hgb 9.7 L (13.5-17.5) g/dL Hct 31.7 L (40.0-50.0) % MCV 104.3 H (80-95) fL MCHC 30.6 L (32.0-36.0) g/dL Plt Count 416 H (130-400) x1000/uL MPV 11.3 H (8.0-11.0) fL Absolute Neutrophils 11.13 H (1.2-6.7) k/cumm Absolute Lymphocytes 0.65 L (1.2-3.4) k/cumm Absolute Monocytes 1.17 H (0.11-0.7) k/cumm Sodium 129 L D (136-145) mmol/L Chloride 97 L (98-107) mmol/L Glucose 679 H* D (70-100) mg/dL Calcium 7.8 L (8.5-10.1) mg/dL Magnesium 2.8 H (1.8-2.4) mg/dL Vancomycin Trough 21.4 H* (10.0-20.0) ug/mL 06/22/18 06/22/18 Range/Units 10:09 10:09 WBC 14.10 H (4.4-10.8) k/cumm RBC 3.24 L (4.50-6.00) m/cumm Hgb 10.6 L (13.5-17.5) g/dL Hct 32.8 L (40.0-50.0) % MCV 101.2 H D (80-95) fL MCHC (32.0-36.0) g/dL Plt Count (130-400) x1000/uL MPV (8.0-11.0) fL Absolute Neutrophils 11.89 H (1.2-6.7) k/cumm Absolute Lymphocytes 0.56 L (1.2-3.4) k/cumm Absolute Monocytes 1.23 H (0.11-0.7) k/cumm Sodium (136-145) mmol/L Chloride (98-107) mmol/L Glucose 111 H D (70-100) mg/dL Calcium 7.9 L (8.5-10.1) mg/dL Magnesium (1.8-2.4) mg/dL Vancomycin Trough (10.0-20.0) ug/mL Vital Signs Temperature 37.4 C 06/22/18 07:39 Temperature Source Temporal Artery Scan 06/22/18 07:39 Pulse 90 06/22/18 10:00 Pulse Rhythm Regular 06/12/18 08:00 Pulse 94 H 06/22/18 10:00 Respiratory Rate 18 06/22/18 10:00 Respiratory Effort Non-Labored 06/22/18 03:05 Respiratory Depth Normal 06/22/18 03:05 Respiratory Pattern Normal 06/22/18 03:05 Blood Pressure 125/83 06/22/18 10:00 Blood Pressure Mean 93 06/22/18 10:00 Blood Pressure Position Supine 06/21/18 16:10 Pulse Oximetry 95 06/22/18 09:26 Oxygen Delivery Method Room Air 06/21/18 19:30 Oxygen Flow Rate 0 06/21/18 19:30 Pain Level 3 06/22/18 03:05 Comment 06/17/18 01:50 Intake & Output 06/21/18 06/21/18 06/22/18 11:59 23:59 11:59 Intake Total 1583 / 3835 2252 / 3835 150 / 150 Output Total 1620 / 4670 3050 / 4670 3780 / 3780 Balance -37 / -835 -798 / -835 -3630 / -3630 Weight 64.5 kg 65.8 kg Intake: IV 1583 / 3315 1732 / 3315 50 / 50 Oral 520 / 520 100 / 100 Output: Urine 1600 / 4650 3050 / 4650 3750 / 3750 Stool 20 / 20 30 / 30 Other: Urine Color Yellow Yellow Yellow Urine Appearance Clear Clear Clear Comment Noel intact and draining clear yellow urine. Noel intact and draining clear yellow urine. Noel intact and draining clear yellow urine. Stool Occult Blood Negative Negative Stool Size Small Small Stool Characteristics Mucoid Brown Brown Laboratory Results WBC 14.10 k/cumm (4.4-10.8) H 06/22/18 10:09 RBC 3.24 m/cumm (4.50-6.00) L 06/22/18 10:09 Hgb 10.6 g/dL (13.5-17.5) L 06/22/18 10:09 Hct 32.8 % (40.0-50.0) L 06/22/18 10:09 MCV 101.2 fL (80-95) H D 06/22/18 10:09 MCH 32.7 pg (27.0-33.0) 06/22/18 10:09 MCHC 32.3 g/dL (32.0-36.0) 06/22/18 10:09 RDW 12.4 % (11.8-14.1) 06/22/18 10:09 Plt Count 377 x1000/uL (130-400) 06/22/18 10:09 MPV 10.5 fL (8.0-11.0) 06/22/18 10:09 Immature Gran % 2.2 06/22/18 10:09 Neutrophils % 84.3 06/22/18 10:09 Band Neutrophils % 7.0 % 06/20/18 07:03 Lymphocytes % 4.0 06/22/18 10:09 Monocytes % 8.7 06/22/18 10:09 Eosinophils % 0.5 06/22/18 10:09 Basophils % 0.3 06/22/18 10:09 Absolute Neutrophils 11.89 k/cumm (1.2-6.7) H 06/22/18 10:09 Band Neutrophils 2.0 % 06/19/18 07:12 Absolute Lymphocytes 0.56 k/cumm (1.2-3.4) L 06/22/18 10:09 Absolute Monocytes 1.23 k/cumm (0.11-0.7) H 06/22/18 10:09 Absolute Eosinophils 0.07 k/cumm (0.0-0.7) 06/22/18 10:09 Absolute Basophils 0.04 k/cumm (0.0-0.2) 06/22/18 10:09 Metamyelocytes 1.0 % 06/20/18 07:03 Myelocytes 1.0 % 06/20/18 07:03 Differential Comment Agrees w/ instrument 06/21/18 06:10 RBC Morphology See below 06/21/18 06:10 Polychromasia Present 06/20/18 07:03 Poikilocytosis 1+ 06/19/18 07:12 Macrocytosis 1+ 06/21/18 06:10 Stomatocytes 2+ 06/20/18 07:03 PT 9.5 sec (9.3-11.0) 06/10/18 06:25 INR 1.0 (0.9-1.1) 06/10/18 06:25 Sodium 138 mmol/L (136-145) 06/22/18 10:09 Potassium 3.5 mmol/L (3.5-5.1) D 06/22/18 10:09 Chloride 101 mmol/L (98-107) 06/22/18 10:09 Carbon Dioxide 29.6 mmol/L (21.0-32.0) 06/22/18 10:09 Anion Gap 7.4 mmol/L (3-11) 06/22/18 10:09 BUN 11 mg/dL (7-18) 06/22/18 10:09 Creatinine 0.77 mg/dL (0.70-1.30) 06/22/18 10:09 Estimated GFR/1.73 m2 >= 60.00 (mL/min/1.73m2) 06/22/18 10:09 Glucose 111 mg/dL (70-100) H D 06/22/18 10:09 Calcium 7.9 mg/dL (8.5-10.1) L 06/22/18 10:09 Magnesium 2.8 mg/dL (1.8-2.4) H 06/22/18 06:40 Total Bilirubin 0.7 mg/dL (0.2-1.0) 06/16/18 06:25 Conjugated Bilirubin 0.34 mg/dL (0.00-0.20) H 06/16/18 06:25 AST 30 U/L (15-37) 06/16/18 06:25 ALT 32 U/L (12-78) 06/16/18 06:25 Alkaline Phosphatase 147 U/L (46-116) H 06/16/18 06:25 Troponin I < 0.02 ng/mL (0.00-0.06) 06/09/18 10:30 Total Protein 5.1 g/dL (6.4-8.2) L 06/16/18 06:25 Albumin 1.6 g/dL (3.4-5.0) L 06/16/18 06:25 Lipase 766 U/L (73-393) H 06/13/18 06:10 Urine Color Yellow (Yellow) 06/17/18 11:00 Urine Clarity Clear 06/17/18 11:00 Urine pH 7.5 (5-8) 06/17/18 11:00 Ur Specific [place] 1.015 (1.005-1.025) 06/17/18 11:00 Urine Protein Negative mg/dL (Negative) 06/17/18 11:00 Urine Ketones Negative mg/dL (Negative) 06/17/18 11:00 Urine Blood Trace-lysed (Negative) H 06/17/18 11:00 Urine Nitrite Negative (Negative) 06/17/18 11:00 Urine Bilirubin Negative (Negative) 06/17/18 11:00 Urine Urobilinogen 0.2 EU/dL (Up TO 0.2) 06/17/18 11:00 Ur Leukocyte Esterase Negative (Negative) 06/17/18 11:00 Urine RBC 5-10 (0-2) H 06/17/18 11:00 Urine WBC Negative HPF (0-5) 06/17/18 11:00 Ur Epithelial Cells Negative HPF (Negative) 06/17/18 11:00 Urine Crystals Negative HPF (Negative) 06/17/18 11:00 Urine Bacteria Few HPF (Negative) 06/17/18 11:00 Urine Casts Negative LPF (Negative) 06/17/18 11:00 Urine Mucus Negative (Negative) 06/17/18 11:00 Urine Other Negative (Negative) 06/17/18 11:00 Ur Culture Indicated? No 06/17/18 11:00 Urine Glucose Negative mg/dL (Negative) 06/17/18 11:00 Vancomycin Trough 21.4 ug/mL (10.0-20.0) H* 06/22/18 10:09 Hepatitis A IgM Ab Negative (NEGAT) 06/09/18 11:30 Hep Bs Antigen Negative (NEGAT) 06/09/18 11:30 Hep B Core Total Ab Negative (NEGAT) 06/09/18 11:30 Hepatitis C Antibody Negative (NEGAT) 06/09/18 11:30
--- NOTE | 2018-06-22 13:45 | PT.INTREAT ---
Date of service: 06/22/18 Time of Service: 13:45 PT Notes Inpatient Physical Therapy Treatment Note [facility] Date: 06/22/18 PRECAUTIONS: Fall SUBJECTIVE: Iggy states that he is tired today, that he did not sleep well last night. OBJECTIVE: PAIN: Patient c/o low back pain and R rib pain BED MOBILITY/TRANSFERS Supine-sit: I Sit-supine: I Sit-stand: SBA Stand-sit: SBA GAIT Assistive Device: FWW Weight bearing: Full Assist: CGA Distance: 300' Deviation: Steady pace, occasional path deviation to L and R THEREX: Patient completed a resisted UE and LE open-chain ther ex program, as per flow sheet. Patient tolerated a progression in his program today, modifications made to reps are noted on flow sheet. ASSESSMENT: Patient tolerated session well, tolerated a progression in ther ex, as well as a progression in gait distance with FWW support. Patient would benefit from continued gait and transfer training as well as strengthening for improved mobility. PLAN: Continue with PT's POC TREATMENT CODE/TIME: 30 minutes; ([id number], [id number])
--- NOTE | 2018-06-22 13:48 | PTTR_ITS ---
Date of service: 06/22/18 Time of Service: 13:45 PT Notes Inpatient Physical Therapy Treatment Note [facility] Date: 06/22/18 PRECAUTIONS: Fall SUBJECTIVE: Iggy states that he is tired today, that he did not sleep well last night. OBJECTIVE: PAIN: Patient c/o low back pain and R rib pain BED MOBILITY/TRANSFERS Supine-sit: I Sit-supine: I Sit-stand: SBA Stand-sit: SBA GAIT Assistive Device: FWW Weight bearing: Full Assist: CGA Distance: 300' Deviation: Steady pace, occasional path deviation to L and R THEREX: Patient completed a resisted UE and LE open-chain ther ex program, as per flow sheet. Patient tolerated a progression in his program today, modific ations made to reps are noted on flow sheet. ASSESSMENT: Patient tolerated session well, tolerated a progression in ther ex, as well as a progression in gait distance with FWW support. Patient would benefit from continued gait and transfer training as well as strengthening for improved mobility. PLAN: Continue with PT's POC TREATMENT CODE/TIME: 30 minutes; ([id number], [id number])
[2018-06-22] MEDS: oxyCODONE 5 MG TAB PO ×2 (14:11→19:55)
[2018-06-22] MEDS: Budesonide/Formoterol 160/4.5 6 GM 60 PUFF INH IH (20:27)
[2018-06-22] MEDS: VANCOMYCIN 1,000 MG in Normal Saline 250 ML 167 MG IVPB (21:01)
[2018-06-22] MEDS: QUEtiapine 25 MG TAB PO (21:37)
[2018-06-23] VITALS (27 sets, daily range): BP systolic 112–139; BP diastolic 69–93; PULSE 85–97; RESP 12–26; TEMP 36.5–37.8; O2SAT 90–96
[2018-06-23] MEDS: PIPERACILLIN/TAZO 3.375 GM in Normal Saline 50 ML IVPB ×4 (01:29→19:29)
[2018-06-23] MEDS: VANCOMYCIN 1,000 MG in Normal Saline 250 ML 250 MG IVPB ×2 (04:05→11:38)
[2018-06-23 06:15] LABS: Abs Immature Grans 0.24 k/cumm (0.0-0.09); HCT 32.7 % (40.0-50.0); HGB 10.5 g/dL (13.5-17.5); Mean Corp. HGB Concentration 32.1 g/dL (32.0-36.0); Mean Corpuscular Hemoglobin 32.5 pg (27.0-33.0); Mean Corpuscular Volume 101.2 fL (80-95); Mean Platelet Volume 10.4 fL (8.0-11.0); Platelet Count 470 x1000/uL (130-400); RBC 3.23 m/cumm (4.50-6.00); RBC Distribution Width 12.7 % (11.8-14.1); White Blood Cell Count 12.13 k/cumm (4.4-10.8)
[2018-06-23 06:37] LABS: Anion Gap 8.4 mmol/L (3-11); BUN 11 mg/dL (7-18); CO2 29.6 mmol/L (21.0-32.0); CREATININE 0.85 mg/dL (0.70-1.30); Calcium 8.2 mg/dL (8.5-10.1); Chloride 102 mmol/L (98-107); Glucose 81 mg/dL (70-100); Magnesium 2.4 mg/dL (1.8-2.4); Potassium 3.5 mmol/L (3.5-5.1); Sodium 140 mmol/L (136-145)
[2018-06-23 06:54] LABS: Absolute Eosinophil Count 0.36 k/cumm (0.0-0.7); Absolute Lymphocyte Count 0.61 k/cumm (1.2-3.4); Absolute Monocyte Count 1.09 k/cumm (0.11-0.7); Absolute Neutrophil Count 9.83 k/cumm (1.2-6.7)
[2018-06-23 06:55] LABS: Diff Comment Manual Differential; Polychromasia Present
[2018-06-23 06:56] LABS: Stomatocytes 2+
[2018-06-23] MEDS: Gabapentin 400 MG CAP PO ×3 (08:04→19:29)
[2018-06-23] MEDS: Acetaminophen 325 MG TAB PO ×3 (08:04→21:43)
[2018-06-23] MEDS: Pantoprazole 40 MG VIAL IVP ×2 (08:06→19:29)
[2018-06-23] MEDS: Nicotine 21 MG/24 HR PATCH TD (08:21)
[2018-06-23] MEDS: Budesonide/Formoterol 160/4.5 6 GM 60 PUFF INH IH ×2 (09:17→19:28)
--- NOTE | 2018-06-23 10:20 | DI.RAD_ITS ---
SYMPTOM/DIAGNOSIS: F/U ILEUS AND PNEUMONIA PORTABLE AP CHEST: Comparison is made with 06/17/18. Heart size and pulmonary vasculature are within normal limits. There has been near complete resolution of the left pleural effusion which is now very small. There are residual infiltrates seen in the right perihilar region and the left lung base which have significantly improved. The tip of the PICC line is seen in the superior vena cava. The bones appear intact. IMPRESSION: Overall improvement in the appearance of the chest since 06/17/18. Small residual infiltrates remain in the right perihilar region and the left lung base. There is a persistent but small left pleural effusion. KUB: Comparison is made with 06/15/18. The nasogastric tube appears to have been removed. There has been mild increase in dilatation of the bowel loops, particularly in the left upper quadrant. There is question of thickening of the wall of a loop of bowel in the left lateral abdomen. There is a small amount of air seen in the rectum. Degenerative changes are seen in the spine. There is a persistent mild left convex scoliosis present. IMPRESSION: 1. Interval removal of the nasogastric tube. 2. Interval increase of the bowel dilatation since 06/15/18. Worsening ileus versus development of a partial small bowel obstruction should be considered. 3. Question of thickening of the wall of a loop of bowel seen in the left abdomen.
--- NOTE | 2018-06-23 10:55 | DI.VRAD_ITS ---
EXAM: XR Chest, 1 View EXAM DATE/TIME: 06/23/2018 9:57 AM CLINICAL HISTORY: 63 years old, male; Signs and symptoms; Other: F/u ileus, f/u pna TECHNIQUE: XR of the chest, 1 view. COMPARISON: SC XR PORTABLE CHEST AP 06/17/2018 8:42 AM FINDINGS: Tubes, catheters and devices: PICC line present with tip in the lower SVC. Lungs: Interval improvement in bilateral airspace disease compared to the prior examination. Mild persistent patchy densities within the right upper and right midlung zone and left medial lung base. Pleural space: Near-complete resolution of left pleural effusion with tiny residual left pleural fluid. Heart/Mediastinum: Unremarkable cardiomediastinal silhouette and pulmonary vasculature. Bones/joints: Unremarkable. IMPRESSION: 1. Interval improvement in bilateral airspace disease with persistent small bilateral pulmonary opacities. 2. Tiny residual left pleural effusion. EXAM: XR Abdomen, 1 View EXAM DATE/TIME: 06/23/2018 9:57 AM CLINICAL HISTORY: 63 years old, male; Signs and symptoms; Other: F/u ileus, f/u pna TECHNIQUE: Frontal supine view of the abdomen/pelvis. COMPARISON: Supine portable AP radiograph of the abdomen 06/15/2018. FINDINGS: Tubes, catheters and devices: Removal of nasogastric tube since the prior study. Gastrointestinal tract: Interval increase in gaseous distention of left upper quadrant small bowel. Air filled loops of colon are present. There is questionable bowel wall thickening within the lateral left mid and lower abdomen. Small amount of gas within the rectosigmoid colon. Bones/joints: Unremarkable for age. IMPRESSION: 1. Status post removal of nasogastric tube. 2. Interval increase in gaseous distention of proximal small bowel, likely worsening ileus. Early or partial small bowel obstruction is not excluded. 3. Possible bowel wall thickening within the left abdomen. Dictated and Authenticated by: Juwan Johnson MD. Ordering:KIM Hurst MD
--- NOTE | 2018-06-23 11:55 | PDOC.CMPRO ---
Care Management Progress Note S/O: Iggy was sitting up in his recliner. Alert and states he feels a little better today. a: 63 yo male admitted for alcoholism and pancreatitis remains at ICU level of care with possible transition to Acute level within the next 24 hours. P: Unchanged. Return home with mother, Vee, at their [facility]. No services anticipated at this time. Follow up with Ricardo and his therapist, Brando Dobson. Family will transport.
--- NOTE | 2018-06-23 12:02 | CMPROGNOTE_ITS ---
Care Management Progress Note S/O: Iggy was sitting up in his recliner. Alert and states he feels a little better today. a: 63 yo male admitted for alcoholism and pancreatitis remains at ICU level of care with possible transition to Acute level within the next 24 hours. P: Unchanged. Return home with mother, Vee, at their [facility]. N o services anticipated at this time. Follow up with Ricardo and his therapist, Brando Dobson. Family will transport.
--- NOTE | 2018-06-23 12:37 | PT.INTREAT ---
Date of service: 06/23/18 Time of Service: 12:37 PT Notes Inpatient Physical Therapy Treatment Note [facility] Date: 06/23/18 PRECAUTIONS:Fall ETOH Withdrawal SUBJECTIVE: Pt reports that he is doing well today but is still experiencing some stomach pain. OBJECTIVE: Sit-stand: SBA Stand-sit: SBA GAIT Assistive Device: FWW Weight bearing: Full Assist: CGA Distance: 200ft THEREX: Pt completed UE and LE ther ex as per flow sheet with 2# while in the seated position. ASSESSMENT: Pt was very pleasant and motivated for his PT session today. PLAN: Cont as per PT POC. TREATMENT CODE/TIME: 12-12:30 (30) BRISSA AVILES
--- NOTE | 2018-06-23 15:33 | W.PM.PROGNOT ---
Date of Service Date of service: 06/23/18 Time of Service: 15:34 Assessment and Plan (1) Pneumonia: Current visit: Yes Status: Acute Likely due to aspiration, not present on admission. Continue Vancomycin (Day 5), Pip-Tazo (day 7). CXR reviewed - patient could benefit from a couple more days of abx. Continue aspiration precautions. Encourage ambulation. (2) Ileus: Current visit: Yes Status: Acute Likely triggered by acute pancreatitis - Underwent decompression via CScope 06/15, s/p Neostigmine (with cardiac monitoring) with good results. Repeated course on 06/20. No longer on TPN. I am concerned about the read of the KUB today - will repeat again tomorrow. Will not advance diet. Will discuss with general surgery if this picture persists tomorrow. (3) Pancreatitis, acute: Current visit: Yes Status: Acute Clinically resolved; thought to be alcoholic pancreatitis in etiology. Will not advance diet due to ileus. Qualifiers: Pancreatitis type: unspecified pancreatitis type Acute pancreatitis complication: no infection or necrosis Qualified Code(s): K85.90 - Acute pancreatitis without necrosis or infection, unspecified (4) Alcohol abuse: Current visit: No Status: Chronic Agree that night time confusion may in fact be sundowning on top of Wernicke's encephalopathy. Continue thiamine. Continue seroquel. (5) Melena: Current visit: Yes Status: Resolved Continue IV PPI BID. Will need an EGD - as H/H is stable, could be done as outpatient. (6) COPD (chronic obstructive pulmonary disease): Current visit: No Status: Chronic At baseline. Continue Home Inhaler therapy with Tiotropium, IGC/LABA. (7) DVT prophylaxis: Current visit: Yes Status: Acute SCDs given GIB. (8) Discharge planning issues: Current visit: Yes Status: Acute Full code May be transferred out of the ICU tomorrow if felt by general surgery that he would not benefit from neostigmine. Subjective Interval history since last seen: Patient states he feels better today. He had a BM this am. Before he did, he felt nauseated, but his nausea was relieved with a BM. He denies dizziness, chest pain, shortness of breath, abdominal pain. He states he slept last night, but not well. Nursing reports no episodes of confusion overnight. Exam Narrative Exam Narrative: General: A&Ox3, sitting in a chair, appropriate/coherent, comfortable, abdomen visibly distended HEENT: EOMI, MMM Heart: RRR, no m/r/g Lungs: clear and diminished breath sounds B GI: abdomen very distended, + bowel sounds, nontender Extremities: 1+ pedal pulses, no edema, clubbing or cyanosis of BLE's Objective Objective Clinical Data: Abnormal lab results 06/23/18 06/23/18 06/23/18 Range/Units 06:03 06:03 11:30 WBC 12.13 H (4.4-10.8) k/cumm RBC 3.23 L (4.50-6.00) m/cumm Hgb 10.5 L (13.5-17.5) g/dL Hct 32.7 L (40.0-50.0) % MCV 101.2 H (80-95) fL Plt Count 470 H (130-400) x1000/uL Absolute Neutrophils 9.83 H (1.2-6.7) k/cumm Absolute Lymphocytes 0.61 L (1.2-3.4) k/cumm Absolute Monocytes 1.09 H (0.11-0.7) k/cumm Calcium 8.2 L (8.5-10.1) mg/dL Vancomycin Trough 24.0 H* (10.0-20.0) ug/mL Vital Signs Temperature 36.7 C 06/23/18 09:52 Temperature Source Temporal Artery Scan 06/23/18 09:52 Pulse 92 H 06/23/18 11:02 Pulse Rhythm Regular 06/12/18 08:00 Pulse 91 H 06/23/18 12:01 Respiratory Rate 26 H 06/23/18 11:02 Respiratory Effort 06/23/18 09:53 Respiratory Depth Normal 06/23/18 09:53 Respiratory Pattern Normal 06/23/18 09:53 Blood Pressure 112/92 H 06/23/18 11:02 Blood Pressure Mean 97 06/23/18 11:02 Blood Pressure Position Supine 06/23/18 00:00 Pulse Oximetry 93 L 06/23/18 12:01 Oxygen Delivery Method Room Air 06/23/18 04:18 Oxygen Flow Rate 0 06/23/18 04:18 Pain Level 0 06/23/18 09:04 Comment 06/17/18 01:50 Intake & Output 06/22/18 06/23/18 06/23/18 23:59 11:59 23:59 Intake Total 2550 / 3693.733 550 / 910 360 / 910 Output Total 2029 / 5810 1250 / 1250 Balance 520 / -2116.267 -700 / -340 360 / -340 Weight 65.4 kg Intake: IV 1670 / 2413.733 350 / 350 Oral 880 / 1280 200 / 560 360 / 560 Output: Urine 1999 / 5750 1250 / 1250 Stool 30 / 60 Other: Urine Color Light Minna Yellow Urine Appearance Clear Clear Comment Noel intact and draining clear yellow urine. Noel discontinued. Stool Occult Blood Negative Negative Stool Size Small Moderate Stool Characteristics Brown Mucoid Black Laboratory Results WBC 12.13 k/cumm (4.4-10.8) H 06/23/18 06:03 RBC 3.23 m/cumm (4.50-6.00) L 06/23/18 06:03 Hgb 10.5 g/dL (13.5-17.5) L 06/23/18 06:03 Hct 32.7 % (40.0-50.0) L 06/23/18 06:03 MCV 101.2 fL (80-95) H 06/23/18 06:03 MCH 32.5 pg (27.0-33.0) 06/23/18 06:03 MCHC 32.1 g/dL (32.0-36.0) 06/23/18 06:03 RDW 12.7 % (11.8-14.1) 06/23/18 06:03 Plt Count 470 x1000/uL (130-400) H 06/23/18 06:03 MPV 10.4 fL (8.0-11.0) 06/23/18 06:03 Immature Gran % See Differential 06/23/18 06:03 Neutrophils % 79.0 06/23/18 06:03 Band Neutrophils % 2.0 % 06/23/18 06:03 Lymphocytes % 5.0 06/23/18 06:03 Monocytes % 9.0 06/23/18 06:03 Eosinophils % 3.0 06/23/18 06:03 Basophils % 0.0 06/23/18 06:03 Absolute Neutrophils 9.83 k/cumm (1.2-6.7) H 06/23/18 06:03 Band Neutrophils 2.0 % 06/19/18 07:12 Absolute Lymphocytes 0.61 k/cumm (1.2-3.4) L 06/23/18 06:03 Absolute Monocytes 1.09 k/cumm (0.11-0.7) H 06/23/18 06:03 Absolute Eosinophils 0.36 k/cumm (0.0-0.7) 06/23/18 06:03 Absolute Basophils 0.00 k/cumm (0.0-0.2) 06/23/18 06:03 Metamyelocytes 1.0 % 06/23/18 06:03 Myelocytes 1.0 % 06/23/18 06:03 Differential Comment Manual differential 06/23/18 06:03 RBC Morphology See below 06/23/18 06:03 Polychromasia Present 06/23/18 06:03 Poikilocytosis 1+ 06/19/18 07:12 Macrocytosis 1+ 06/21/18 06:10 Stomatocytes 2+ 06/23/18 06:03 PT 9.5 sec (9.3-11.0) 06/10/18 06:25 INR 1.0 (0.9-1.1) 06/10/18 06:25 Sodium 140 mmol/L (136-145) 06/23/18 06:03 Potassium 3.5 mmol/L (3.5-5.1) 06/23/18 06:03 Chloride 102 mmol/L (98-107) 06/23/18 06:03 Carbon Dioxide 29.6 mmol/L (21.0-32.0) 06/23/18 06:03 Anion Gap 8.4 mmol/L (3-11) 06/23/18 06:03 BUN 11 mg/dL (7-18) 06/23/18 06:03 Creatinine 0.85 mg/dL (0.70-1.30) 06/23/18 06:03 Estimated GFR/1.73 m2 >= 60.00 (mL/min/1.73m2) 06/23/18 06:03 Glucose 81 mg/dL (70-100) 06/23/18 06:03 Calcium 8.2 mg/dL (8.5-10.1) L 06/23/18 06:03 Magnesium 2.4 mg/dL (1.8-2.4) 06/23/18 06:03 Total Bilirubin 0.7 mg/dL (0.2-1.0) 06/16/18 06:25 Conjugated Bilirubin 0.34 mg/dL (0.00-0.20) H 06/16/18 06:25 AST 30 U/L (15-37) 06/16/18 06:25 ALT 32 U/L (12-78) 06/16/18 06:25 Alkaline Phosphatase 147 U/L (46-116) H 06/16/18 06:25 Troponin I < 0.02 ng/mL (0.00-0.06) 06/09/18 10:30 Total Protein 5.1 g/dL (6.4-8.2) L 06/16/18 06:25 Albumin 1.6 g/dL (3.4-5.0) L 06/16/18 06:25 Lipase 766 U/L (73-393) H 06/13/18 06:10 Urine Color Yellow (Yellow) 06/17/18 11:00 Urine Clarity Clear 06/17/18 11:00 Urine pH 7.5 (5-8) 06/17/18 11:00 Ur Specific [place] 1.015 (1.005-1.025) 06/17/18 11:00 Urine Protein Negative mg/dL (Negative) 06/17/18 11:00 Urine Ketones Negative mg/dL (Negative) 06/17/18 11:00 Urine Blood Trace-lysed (Negative) H 06/17/18 11:00 Urine Nitrite Negative (Negative) 06/17/18 11:00 Urine Bilirubin Negative (Negative) 06/17/18 11:00 Urine Urobilinogen 0.2 EU/dL (Up TO 0.2) 06/17/18 11:00 Ur Leukocyte Esterase Negative (Negative) 06/17/18 11:00 Urine RBC 5-10 (0-2) H 06/17/18 11:00 Urine WBC Negative HPF (0-5) 06/17/18 11:00 Ur Epithelial Cells Negative HPF (Negative) 06/17/18 11:00 Urine Crystals Negative HPF (Negative) 06/17/18 11:00 Urine Bacteria Few HPF (Negative) 06/17/18 11:00 Urine Casts Negative LPF (Negative) 06/17/18 11:00 Urine Mucus Negative (Negative) 06/17/18 11:00 Urine Other Negative (Negative) 06/17/18 11:00 Ur Culture Indicated? No 06/17/18 11:00 Urine Glucose Negative mg/dL (Negative) 06/17/18 11:00 Vancomycin Trough 24.0 ug/mL (10.0-20.0) H* 06/23/18 11:30 Hepatitis A IgM Ab Negative (NEGAT) 06/09/18 11:30 Hep Bs Antigen Negative (NEGAT) 06/09/18 11:30 Hep B Core Total Ab Negative (NEGAT) 06/09/18 11:30 Hepatitis C Antibody Negative (NEGAT) 06/09/18 11:30 CXR: 1. Interval improvement in bilateral airspace disease with persistent small bilateral pulmonary opacities. 2. Tiny residual left pleural effusion. KUB: 1. Status post removal of nasogastric tube. 2. Interval increase in gaseous distention of proximal small bowel, likely worsening ileus. Early or partial small bowel obstruction is not excluded. 3. Possible bowel wall thickening within the left abdomen.
[2018-06-23] MEDS: Ondansetron 4 MG/2 ML VIAL IVP (16:13)
[2018-06-23] MEDS: Normal Saline Flush 10 ML SYR IVP ×2 (16:13→19:28)
[2018-06-23] MEDS: traMADol 50 MG TAB PO ×2 (18:10→22:32)
[2018-06-23] MEDS: QUEtiapine 25 MG TAB PO (21:43)
[2018-06-24] VITALS (28 sets, daily range): BP systolic 112–151; BP diastolic 70–107; PULSE 77–94; RESP 12–25; TEMP 36.6–37.3; O2SAT 90–98
[2018-06-24] MEDS: VANCOMYCIN 1,000 MG in Normal Saline 250 ML 166.667 MG IVPB (00:11)
[2018-06-24] MEDS: PIPERACILLIN/TAZO 3.375 GM in Normal Saline 50 ML IVPB ×4 (02:15→20:19)
[2018-06-24] MEDS: traMADol 50 MG TAB PO ×3 (02:35→10:45)
--- NOTE | 2018-06-24 05:35 | DI.RAD_ITS ---
SYMPTOM/DIAGNOSIS: F/U ILEUS KUB: Comparison is made with the examination from the day prior. The visualized lung bases appear clear. There are persistent dilated loops of bowel within the abdomen which may reflect an ileus or obstruction. The findings appear stable to mildly progressed since 06/23/18. IMPRESSION: No improvement of the dilated loops of bowel within the abdomen. The findings may represent ileus or bowel obstruction.
[2018-06-24 06:19] LABS: Abs Immature Grans 0.31 k/cumm (0.0-0.09); HCT 33.2 % (40.0-50.0); HGB 10.6 g/dL (13.5-17.5); Mean Corp. HGB Concentration 31.9 g/dL (32.0-36.0); Mean Corpuscular Hemoglobin 32.7 pg (27.0-33.0); Mean Corpuscular Volume 102.5 fL (80-95); Mean Platelet Volume 10.3 fL (8.0-11.0); Platelet Count 514 x1000/uL (130-400); RBC 3.24 m/cumm (4.50-6.00); RBC Distribution Width 12.8 % (11.8-14.1); White Blood Cell Count 9.38 k/cumm (4.4-10.8)
[2018-06-24 06:33] LABS: ALT 55 U/L (12-78); AST 39 U/L (15-37); Albumin 1.7 g/dL (3.4-5.0); Alkaline Phosphatase 617 U/L (46-116); Anion Gap 8.5 mmol/L (3-11); BUN 12 mg/dL (7-18); Bilirubin, Direct 0.24 mg/dL (0.00-0.20); Bilirubin, Total 0.6 mg/dL (0.2-1.0); CO2 30.5 mmol/L (21.0-32.0); CREATININE 1.03 mg/dL (0.70-1.30); Calcium 8.6 mg/dL (8.5-10.1); Chloride 106 mmol/L (98-107); Glucose 87 mg/dL (70-100); Magnesium 2.7 mg/dL (1.8-2.4); Potassium 3.7 mmol/L (3.5-5.1); Sodium 145 mmol/L (136-145); Total Protein 6.6 g/dL (6.4-8.2)
[2018-06-24 06:47] LABS: Absolute Basophil Count 0.09 k/cumm (0.0-0.2); Absolute Eosinophil Count 0.19 k/cumm (0.0-0.7); Absolute Lymphocyte Count 0.66 k/cumm (1.2-3.4); Absolute Monocyte Count 0.84 k/cumm (0.11-0.7); Absolute Neutrophil Count 7.22 k/cumm (1.2-6.7); Diff Comment Manual Differential; Polychromasia Present; Stomatocytes 2+
[2018-06-24] MEDS: Pantoprazole 40 MG VIAL IVP ×2 (08:18→20:19)
[2018-06-24] MEDS: Nicotine 21 MG/24 HR PATCH TD (08:21)
[2018-06-24] MEDS: Normal Saline Flush 10 ML SYR IVP ×3 (08:21→20:19)
--- NOTE | 2018-06-24 09:32 | DI.VRAD_ITS ---
EXAM: XR Abdomen, 1 View EXAM DATE/TIME: 06/24/2018 12:01 AM CLINICAL HISTORY: 63 years old, male; Signs and symptoms; Other: F/u ileus TECHNIQUE: Frontal supine view of the abdomen/pelvis. COMPARISON: SC XR ABDOMEN FLAT PLATE 06/23/2018 10:20 AM FINDINGS: Gastrointestinal tract: Multiple loops of dilated bowel consistent with obstruction or ileus. No improvement since the prior study. Bones/joints: Stable IMPRESSION: Multiple loops of dilated bowel consistent with obstruction or ileus. No improvement since the prior study. Dictated and Authenticated by: Damián Guevara MD. Ordering:KIM Hurst MD
[2018-06-24] MEDS: Budesonide/Formoterol 160/4.5 6 GM 60 PUFF INH IH ×2 (10:01→20:27)
--- NOTE | 2018-06-24 10:13 | DI.CT_ITS ---
SYMPTOM/DIAGNOSIS: ILEUS VS SMALL BOWEL OBSTRUCTION, WORSE BY KUB ABDOMEN AND PELVIC CT: CT scan of the abdomen and pelvis was performed following the uneventful administration of intravenous contrast material. Comparison is made with 06/14/18. There are moderate sized bilateral pleural effusions, right greater than left. They have shown interval decrease in size, particularly on the left. There are subjacent infiltrates seen, likely reflecting pneumonia. Subjacent atelectasis cannot be excluded. The liver is normal in size. No evidence of a hepatic mass is seen. The portal, superior mesenteric and splenic veins are patent. The gallbladder wall enhances and is over 3 mm. in thickness. No stones are seen. There is no biliary ductal dilatation. There are a few tiny hypodense areas seen within the pancreas which is otherwise unremarkable. There are peripancreatic fluid collections. There was fluid seen around the pancreas on the prior examination but it appears loculated at this time. There is a collection seen adjacent to the body of the pancreas measuring 5.4 cm. by 2 cm. This is located superiorly and posterior to the pancreatic body. There is a loculated collection seen interposed between the liver and the right kidney which measures 7 cm. by 4 cm. There is a collection seen inferior to the right kidney adjacent to the right psoas muscle measuring 4 by 2 cm. There is a collection anterior to the superior mesenteric artery measuring 8.5 cm. transverse by 3 cm. AP. There is a fluid collection seen in the left paracolic gutter which measures 2.2 by 1.8 cm. There is a fluid collection adjacent to the head of the pancreas measuring 4.1 by 4.4 cm. The spleen is unremarkable as are the adrenal glands. The kidneys show normal and symmetric enhancement. No evidence of a solid renal mass or obstruction. There does appear to be a non obstructing 2 mm. stone in the body of the right kidney. The urinary bladder is intact. The reproductive organs are unremarkable. There are markedly dilated loops of small bowel up to 6 cm. in size. The transition appears to lie in the right lower quadrant. The distal small bowel is of normal caliber as is the colon. No findings to suggest an acute appendicitis are present. No significant free fluid is seen in the abdomen or pelvis. No pneumoperitoneum is present. No significant abdominal or pelvic adenopathy is identified. The bones are intact. IMPRESSION: 1. Significantly dilated loops of small bowel. The transition appears to lie in the right lower quadrant. Small bowel obstruction is suspected. Ileus cannot be excluded. 2. Multiple loculated fluid collections seen in the peripancreatic region as described above. Differential considerations include abscesses, seromas, pancreatic pseudocysts or possible hematomas. Since the prior examination, the fluid collections appear to have become loculated and increased in size. 3. Bilateral pleural effusions which are moderate. There has been interval decrease in the size of the left pleural effusion. 4. Bilateral basilar infiltrates which may represent atelectasis or pneumonia. 5. Gallbladder abnormalities as described above which may reflect acute cholecystitis.
[2018-06-24] MEDS: Omnipaque 350 MG/ML 100 ML BTL IJ (10:15)
--- NOTE | 2018-06-24 10:24 | DI.RAD_ITS ---
SYMPTOM/DIAGNOSIS: SOB FRONTAL AND LATERAL CHEST: Comparison is made with 06/23/18. Heart size and pulmonary vasculature are within normal limits. There are again seen infiltrates in the left lung base medially and the right upper lobe. The left lung base appears mildly progressed compared to the prior examination. There is again seen a small left pleural effusion. No pneumothorax is seen. The tip of the PICC line is again noted in the superior vena cava. IMPRESSION: Bilateral pulmonary opacities which may represent atelectasis or pneumonia. Small left pleural effusion.
--- NOTE | 2018-06-24 10:30 | DI.VRAD_ITS ---
EXAM: XR Chest, 2 Views EXAM DATE/TIME: 06/24/2018 9:57 AM CLINICAL HISTORY: 63 years old, male; Signs and symptoms; Other: Shortness of breath TECHNIQUE: XR of the chest, 2 views. COMPARISON: CR XR PORTABLE CHEST AP 06/23/2018 10:14 AM FINDINGS: Lungs: Opacities in the medial left base may represent atelectasis or pneumonia. Pleural space: Blunting of the left costophrenic angle may represent small left pleural effusion. Heart/Mediastinum: Unremarkable. No cardiomegaly. Upper abdomen: Multiple loops of dilated bowel may represent obstruction or ileus. Bones/joints: Unremarkable. Other findings: Overlying EKG wires IMPRESSION: 1. Opacities in the medial left base may represent atelectasis or pneumonia. 2. Multiple loops of dilated bowel may represent obstruction or ileus. 3. Blunting of the left costophrenic angle may represent small left pleural effusion. Dictated and Authenticated by: Damián Guevara MD. Ordering:KIM Hurst MD
[2018-06-24] MEDS: Gabapentin 400 MG CAP PO ×3 (10:45→20:20)
--- NOTE | 2018-06-24 10:54 | DI.VRAD_ITS ---
EXAM: CT Abdomen and Pelvis With Contrast EXAM DATE/TIME: 06/24/2018 9:46 AM CLINICAL HISTORY: 63 years old, male; Signs and symptoms; Other: Ileus vs. Sbo, worse by kub TECHNIQUE: Axial computed tomography images of the abdomen and pelvis with intravenous contrast. All CT scans at this facility use at least one of these dose optimization techniques: automated exposure control; mA and/or kV adjustment per patient size (includes targeted exams where dose is matched to clinical indication); or iterative reconstruction. Coronal and sagittal reformatted images were created and reviewed. CONTRAST: 100 ml of OMNIPAQUE 350 administered intravenously. COMPARISON: CT Private^ROUTINE ABDOMEN PELVIS WITH CONTRAST (Adult) 06/14/2018 3:42 PM FINDINGS: Lower thorax: Moderate right pleural effusion. Smaller left pleural effusion. Consolidation in the lower lobes may represent atelectasis or pneumonia. ABDOMEN: Liver: Normal. No mass. Gallbladder and bile ducts: There is pericholecystic fluid. The gallbladder wall enhances and is thickened over 3 mm. This may represent acute cholecystitis. Pancreas: Loculated fluid collection adjacent to the body of the pancreas. 5.4 x 2 cm. Loculated fluid collection adjacent to the head of the pancreas 4.1 x 4.4 cm. Loculated fluid collection between the liver and the right kidney 6.9 x 4 cm. Loculated fluid collection inferior to the right kidney adjacent to the right psoas 4 x 2 cm. Loculated fluid collection anterior to the SMA within the mid abdomen 8.5 x 3 cm. Loculated fluid collection in the left pericolic gutter 2.2 x 1.8 cm. Spleen: Normal. No splenomegaly. Adrenals: Normal. No mass. Kidneys and ureters: Stable appearance of the kidneys Stomach and bowel: Multiple loops of Grossly dilated small bowel up to 6 cm consistent with small bowel obstruction or ileus. Transition point may be in the right abdomen. Appendix: No evidence of appendicitis. PELVIS: Bladder: Unremarkable as visualized. Reproductive: Unremarkable as visualized. ABDOMEN and PELVIS: Intraperitoneal space: Multiple fluid collections as described above Bones/joints: No acute fracture. No dislocation. Soft tissues: Unremarkable Vasculature: Normal. No abdominal aortic aneurysm. Lymph nodes: Normal. No enlarged lymph nodes. IMPRESSION: 1. Multiple loops of Grossly dilated small bowel up to 6 cm consistent with small bowel obstruction or ileus. Transition point may be in the right abdomen. Small bowel loops are more dilated than on the prior study 2. Loculated fluid collection adjacent to the body of the pancreas. 5.4 x 2 cm. Loculated fluid collection adjacent to the head of the pancreas 4.1 x 4.4 cm. Loculated fluid collection between the liver and the right kidney 6.9 x 4 cm. Loculated fluid collection inferior to the right kidney adjacent to the right psoas 4 x 2 cm. Loculated fluid collection anterior to the SMA within the mid abdomen 8.5 x 3 cm. Loculated fluid collection in the left pericolic gutter 2.2 x 1.8 cm. Differential includes abscess, hematoma, seroma, pancreatic pseudocyst. These were present on the prior study but have increased in size and extension 3. Moderate right pleural effusion. Smaller left pleural effusion. Left pleural effusion has decreased in size 4. Consolidation in the lower lobes may represent atelectasis or pneumonia. 5. There is pericholecystic fluid. The gallbladder wall enhances and is thickened over 3 mm. This may represent acute cholecystitis. THIS REPORT CONTAINS FINDINGS THAT MAY BE CRITICAL TO PATIENT CARE. The findings were verbally communicated via telephone conference with Dr. Reina at 10:51 AM EST on 06/24/2018. The findings were acknowledged and understood. Dictated and Authenticated by: Damián Guevara MD. Ordering:KIM Hurst MD
--- NOTE | 2018-06-24 11:05 | PGE_ITS ---
Date of Service Date of service: 06/24/18 Time of Service: 11:02 Assessment and Plan (1) Pancreatitis, acute: Current visit: Yes Status: Acute Discussed patient and CT findings with Dr. Hopper. Suspect that the fluid collections seen represent reactive ascites. His WBC is 9.4. He is afebrile today. He has been covered with antibiotics on Zosyn and Vancomycin. Gallbladder has been worked up on this admission without evidence of cholelithiasis or acute cholecystitis. Continue supportive care. Qualifiers: Pancreatitis type: unspecified pancreatitis type Acute pancreatitis complication: no infection or necrosis Qualified Code(s): K85.90 - Acute pancreatitis without necrosis or infection, unspecified (2) Ileus: Current visit: Yes Status: Acute Patient has signs of ileus with air filled stomach and dilated fluid- filled loops of small bowel. Colon does not appear to be distended on CT or AXR. (+) BM. Additional neostigmine not indicated at this time. Spoke with patient re: recommendation to place NG tube again to decompress stomach/small bowel. Can use lidocaine jelly prn for discomfort with placement. Patient indicates that he is agreeable to having another NG tube placed at this time. He is no longer in DTs. Hopefully he will be compliant with NG decompression. OK to give po meds and clamp NG x 1 hr prn. Subjective Interval history since last seen: Surgery reconsulted for increased abdominal distention/discomfort. Had been on full liquid diet which is now held. (+) BM. H/o ETOH pancreatitis on this admission with ileus and colonic distention. Underwent decompressive colonoscopy and several doses of neostigmine last week. AXR and CT abd/pelvis obtained this am. Films and ADS reports reviewed. CT report discussed with [facility] radiologist. Patient had an NG tube last week which he had pulled out. He is no longer in DTs. Exam Const General: cooperative and no acute distress Nutritional Appearance: average body habitus Orientation: alert and oriented x3 HENMT Head: normocephalic and atraumatic Eyes Sclera: sclerae normal Resp Effort & Inspection: normal respiratory effort and able to speak in complete sentences Cardio Jugular venous pressure: no JVD Rate: regular rate Rhythm: regular rhythm GI Inspection: distended (mild to moderate) Palpation: soft, not firm, no guarding, no masses and nontender Auscultation: high-pitched sounds and hyperactive bowel sounds Skin General skin exam: no rashes or lesions noted and no jaundice Neuro Speech: speech normal Objective Objective Clinical Data: Abnormal lab results 06/23/18 06/24/18 06/24/18 Range/Units 11:30 06:06 06:06 RBC 3.24 L (4.50-6.00) m/cumm Hgb 10.6 L (13.5-17.5) g/dL Hct 33.2 L (40.0-50.0) % MCV 102.5 H (80-95) fL MCHC 31.9 L (32.0-36.0) g/dL Plt Count 514 H (130-400) x1000/uL Absolute Neutrophils 7.22 H (1.2-6.7) k/cumm Absolute Lymphocytes 0.66 L (1.2-3.4) k/cumm Absolute Monocytes 0.84 H (0.11-0.7) k/cumm Magnesium 2.7 H (1.8-2.4) mg/dL Conjugated Bilirubin 0.24 H (0.00-0.20) mg/dL AST 39 H (15-37) U/L Alkaline Phosphatase 617 H (46-116) U/L Albumin 1.7 L (3.4-5.0) g/dL Vancomycin Trough 24.0 H* (10.0-20.0) ug/mL Vital Signs Temperature 36.6 C 06/24/18 07:59 Temperature Source Temporal Artery Scan 06/24/18 07:59 Pulse 88 06/24/18 07:59 Pulse Rhythm Regular 06/12/18 08:00 Pulse 81 06/24/18 04:01 Respiratory Rate 19 06/24/18 07:59 Respiratory Effort 06/24/18 07:59 Respiratory Depth Normal 06/24/18 07:59 Respiratory Pattern Normal 06/24/18 07:59 Blood Pressure 131/80 06/24/18 07:59 Blood Pressure Mean 97 06/24/18 07:59 Blood Pressure Position Supine 06/24/18 07:59 Pulse Oximetry 93 L 06/24/18 07:59 Oxygen Delivery Method Nasal Cannula 06/24/18 07:59 Oxygen Flow Rate 2 06/24/18 07:59 Pain Level 8 06/24/18 07:59 Comment 06/17/18 01:50 Intake & Output 06/23/18 06/23/18 06/24/18 11:59 23:59 11:59 Intake Total 550 / 2110 1560 / 2110 630 / 630 Output Total 1250 / 2450 1200 / 2450 660 / 660 Balance -700 / -340 360 / -340 -30 / -30 Weight 65.4 kg 62.5 kg Intake: IV 350 / 800 450 / 800 300 / 300 Oral 200 / 1310 1110 / 1310 330 / 330 Output: Urine 1250 / 2450 1200 / 2450 600 / 600 Stool 60 / 60 Other: Urine Color Yellow Yellow Yellow Urine Appearance Clear Clear Clear Urine Odor Normal Normal Comment Noel discontinued. Voids to urinal. Noel has been D/C mixed with stool Stool Occult Blood Negative Stool Size Moderate Small Stool Characteristics Mucoid Liquid Brown Black Voiding Methods Urinal Bedside Commode Laboratory Results WBC 9.38 k/cumm (4.4-10.8) 06/24/18 06:06 RBC 3.24 m/cumm (4.50-6.00) L 06/24/18 06:06 Hgb 10.6 g/dL (13.5-17.5) L 06/24/18 06:06 Hct 33.2 % (40.0-50.0) L 06/24/18 06:06 MCV 102.5 fL (80-95) H 06/24/18 06:06 MCH 32.7 pg (27.0-33.0) 06/24/18 06:06 MCHC 31.9 g/dL (32.0-36.0) L 06/24/18 06:06 RDW 12.8 % (11.8-14.1) 06/24/18 06:06 Plt Count 514 x1000/uL (130-400) H 06/24/18 06:06 MPV 10.3 fL (8.0-11.0) 06/24/18 06:06 Immature Gran % See Differential 06/24/18 06:06 Neutrophils % 75.0 06/24/18 06:06 Band Neutrophils % 2.0 % 06/24/18 06:06 Lymphocytes % 7.0 06/24/18 06:06 Monocytes % 9.0 06/24/18 06:06 Eosinophils % 2.0 06/24/18 06:06 Basophils % 1.0 06/24/18 06:06 Absolute Neutrophils 7.22 k/cumm (1.2-6.7) H 06/24/18 06:06 Band Neutrophils 2.0 % 06/19/18 07:12 Absolute Lymphocytes 0.66 k/cumm (1.2-3.4) L 06/24/18 06:06 Absolute Monocytes 0.84 k/cumm (0.11-0.7) H 06/24/18 06:06 Absolute Eosinophils 0.19 k/cumm (0.0-0.7) 06/24/18 06:06 Absolute Basophils 0.09 k/cumm (0.0-0.2) 06/24/18 06:06 Metamyelocytes 2.0 % 06/24/18 06:06 Myelocytes 2.0 % 06/24/18 06:06 Differential Comment Manual differential 06/24/18 06:06 RBC Morphology See below 06/24/18 06:06 Polychromasia Present 06/24/18 06:06 Poikilocytosis 1+ 06/19/18 07:12 Macrocytosis 1+ 06/21/18 06:10 Stomatocytes 2+ 06/24/18 06:06 PT 9.5 sec (9.3-11.0) 06/10/18 06:25 INR 1.0 (0.9-1.1) 06/10/18 06:25 Sodium 145 mmol/L (136-145) 06/24/18 06:06 Potassium 3.7 mmol/L (3.5-5.1) 06/24/18 06:06 Chloride 106 mmol/L (98-107) 06/24/18 06:06 Carbon Dioxide 30.5 mmol/L (21.0-32.0) 06/24/18 06:06 Anion Gap 8.5 mmol/L (3-11) 06/24/18 06:06 BUN 12 mg/dL (7-18) 06/24/18 06:06 Creatinine 1.03 mg/dL (0.70-1.30) 06/24/18 06:06 Estimated GFR/1.73 m2 >= 60.00 (mL/min/1.73m2) 06/24/18 06:06 Glucose 87 mg/dL (70-100) 06/24/18 06:06 Calcium 8.6 mg/dL (8.5-10.1) 06/24/18 06:06 Magnesium 2.7 mg/dL (1.8-2.4) H 06/24/18 06:06 Total Bilirubin 0.6 mg/dL (0.2-1.0) 06/24/18 06:06 Conjugated Bilirubin 0.24 mg/dL (0.00-0.20) H 06/24/18 06:06 AST 39 U/L (15-37) H 06/24/18 06:06 ALT 55 U/L (12-78) 06/24/18 06:06 Alkaline Phosphatase 617 U/L (46-116) H 06/24/18 06:06 Troponin I < 0.02 ng/mL (0.00-0.06) 06/09/18 10:30 Total Protein 6.6 g/dL (6.4-8.2) 06/24/18 06:06 Albumin 1.7 g/dL (3.4-5.0) L 06/24/18 06:06 Lipase 766 U/L (73-393) H 06/13/18 06:10 Urine Color Yellow (Yellow) 06/17/18 11:00 Urine Clarity Clear 06/17/18 11:00 Urine pH 7.5 (5-8) 06/17/18 11:00 Ur Specific [place] 1.015 (1.005-1.025) 06/17/18 11:00 Urine Protein Negative mg/dL (Negative) 06/17/18 11:00 Urine Ketones Negative mg/dL (Negative) 06/17/18 11:00 Urine Blood Trace-lysed (Negative) H 06/17/18 11:00 Urine Nitrite Negative (Negative) 06/17/18 11:00 Urine Bilirubin Negative (Negative) 06/17/18 11:00 Urine Urobilinogen 0.2 EU/dL (Up TO 0.2) 06/17/18 11:00 Ur Leukocyte Esterase Negative (Negative) 06/17/18 11:00 Urine RBC 5-10 (0-2) H 06/17/18 11:00 Urine WBC Negative HPF (0-5) 06/17/18 11:00 Ur Epithelial Cells Negative HPF (Negative) 06/17/18 11:00 Urine Crystals Negative HPF (Negative) 06/17/18 11:00 Urine Bacteria Few HPF (Negative) 06/17/18 11:00 Urine Casts Negative LPF (Negative) 06/17/18 11:00 Urine Mucus Negative (Negative) 06/17/18 11:00 Urine Other Negative (Negative) 06/17/18 11:00 Ur Culture Indicated? No 06/17/18 11:00 Urine Glucose Negative mg/dL (Negative) 06/17/18 11:00 Vancomycin Trough 24.0 ug/mL (10.0-20.0) H* 06/23/18 11:30 Hepatitis A IgM Ab Negative (NEGAT) 06/09/18 11:30 Hep Bs Antigen Negative (NEGAT) 06/09/18 11:30 Hep B Core Total Ab Negative (NEGAT) 06/09/18 11:30 Hepatitis C Antibody Negative (NEGAT) 06/09/18 11:30 Objective Narrative Objective Narrative: Patient Name: Cordell HENRIQUEZ #: [id number]: ICU Ordering Provider: : ADM IN Primary Care Provider: Deborah Chow M.D.Date of Exam: 06/24/18Sex: M : 4Age: 63 Exam(s) EXAM: CT Abdomen and Pelvis With Contrast EXAM DATE/TIME: 06/24/2018 9:46 AM CLINICAL HISTORY: 63 years old, male; Signs and symptoms; Other: Ileus vs. Sbo, worse by kub TECHNIQUE: Axial computed tomography images of the abdomen and pelvis with intravenous contrast. All CT scans at this facility use at least one of these dose optimization techniques: automated exposure control; mA and/or kV adjustment per patient size (includes targeted exams where dose is matched to clinical indication); or iterative reconstruction. Coronal and sagittal reformatted images were created and reviewed. CONTRAST: 100 ml of OMNIPAQUE 350 administered intravenously. COMPARISON: CT Private^ROUTINE ABDOMEN PELVIS WITH CONTRAST (Adult) 06/14/2018 3:42 PM FINDINGS: Lower thorax: Moderate right pleural effusion. Smaller left pleural effusion. Consolidation in the lower lobes may represent atelectasis or pneumonia. ABDOMEN: Liver: Normal. No mass. Gallbladder and bile ducts: There is pericholecystic fluid. The gallbladder wall enhances and is thickened over 3 mm. This may represent acute cholecystitis. Pancreas: Loculated fluid collection adjacent to the body of the pancreas. 5.4 x 2 cm. Loculated fluid collection adjacent to the head of the pancreas 4.1 x 4.4 cm. Loculated fluid collection between the liver and the right kidney 6.9 x 4 cm. Loculated fluid collection inferior to the right kidney adjacent to the right psoas 4 x 2 cm. Loculated fluid collection anterior to the SMA within the mid abdomen 8.5 x 3 cm. Loculated fluid collection in the left pericolic gutter 2.2 x 1.8 cm. Spleen: Normal. No splenomegaly. Adrenals: Normal. No mass. Kidneys and ureters: Stable appearance of the kidneys Stomach and bowel: Multiple loops of Grossly dilated small bowel up to 6 cm consistent with small bowel obstruction or ileus. Transition point may be in the right abdomen. Appendix: No evidence of appendicitis. PELVIS: Bladder: Unremarkable as visualized. Reproductive: Unremarkable as visualized. ABDOMEN and PELVIS: Intraperitoneal space: Multiple fluid collections as described above Bones/joints: No acute fracture. No dislocation. Soft tissues: Unremarkable Vasculature: Normal. No abdominal aortic aneurysm. Lymph nodes: Normal. No enlarged lymph nodes. IMPRESSION: 1. Multiple loops of Grossly dilated small bowel up to 6 cm consistent with small bowel obstruction or ileus. Transition point may be in the right abdomen. Small bowel loops are more dilated than on the prior study 2. Loculated fluid collection adjacent to the body of the pancreas. 5.4 x 2 cm. Loculated fluid collection adjacent to the head of the pancreas 4.1 x 4.4 cm. Loculated fluid collection between the liver and the right kidney 6.9 x 4 cm. Loculated fluid collection inferior to the right kidney adjacent to the right psoas 4 x 2 cm. Loculated fluid collection anterior to the SMA within the mid abdomen 8.5 x 3 cm. Loculated fluid collection in the left pericolic gutter 2.2 x 1.8 cm. Differential includes abscess, hematoma, seroma, pancreatic pseudocyst. These were present on the prior study but have increased in size and extension 3. Moderate right pleural effusion. Smaller left pleural effusion. Left pleural effusion has decreased in size 4. Consolidation in the lower lobes may represent atelectasis or pneumonia. 5. There is pericholecystic fluid. The gallbladder wall enhances and is thickened over 3 mm. This may represent acute cholecystitis. THIS REPORT CONTAINS FINDINGS THAT MAY BE CRITICAL TO PATIENT CARE. The findings were verbally communicated via telephone conference with Dr. Reina at 10:51 AM EST on 06/24/2018. The findings were acknowledged and understood. Dictated and Authenticated by: Damián Guevara MD. Ordering:KIM Hurst MD Ordered By: CC: Dictated By: Jonas vrad 06/24/18 0946 06/24/18 1054 Transcribed By: Raiza Lomeli This is privileged, confidential information intended only for the provider named. Any use or distribution by any person other than this provider is strictly prohibited. If you receive this report in error, please notify us immediately at [phone] and return the original report to us at the address above. Thank-you.
[2018-06-24] MEDS: VANCOMYCIN 1,000 MG in Normal Saline 250 ML 166 MG IVPB ×2 (11:19→21:29)
--- NOTE | 2018-06-24 11:20 | PT.INTREAT ---
Date of service: 06/24/18 Time of Service: 11:20 PT Notes Inpatient Physical Therapy Treatment Note [facility] Date: 06/24/18 PRECAUTIONS:Fall and ETOH withdrawal SUBJECTIVE: Pt reports that he is still experiencing discomfort in his stomach. He states that he does not want to walk today due to his pain and he has been up for testing today x2 already. OBJECTIVE: [] GAIT Distance: Refused due to stomach pain. THEREX: Pt completed UE and LE ther ex as per flow sheet. ASSESSMENT: Pt was not as motivated for PT today due to his discomfort in his stomach. We will monitor pt's response to today's session and progress accordingly. PLAN: Cont as per PT POC. TREATMENT CODE/TIME: 9:45-10 (15) TP
--- NOTE | 2018-06-24 12:31 | PDOC.CMPRO ---
Care Management Progress Note S/O: Lying in bd. Said he has been feeling pain overnight and received medicine to help. Abdomen is distended and he is having more diagnostic testing done. A: 63 yo male admitted for pancreatitis and alcoholism remains at ICU level of care P: Unchanged discharge plan. Return home with mother, Vee, at their [facility]. No services anticipated at this time. Follow up with Ricardo and his therapist, Brando Dobson. Family will transport when medically cleared for discharge..
[2018-06-24] MEDS: Metoclopramide 10 MG/2 ML VIAL IVP ×2 (14:26→20:19)
[2018-06-24] MEDS: Lidocaine 2% Jelly 6 ML SYR TP ×2 (14:50→14:51)
--- NOTE | 2018-06-24 17:56 | W.PM.PROGNOT ---
Date of Service Date of service: 06/24/18 Time of Service: 12:15 Assessment and Plan (1) Ileus: Current visit: Yes Status: Acute Worse today. Unable to tolerate insertion of NG tube. Discussed with general surgery - will resume reglan and monitor daily KUB's until we see improvement. No surgical intervention advised. Abstain from narcotic pain medications. *Likely triggered by acute pancreatitis - Underwent decompression via CScope 06/15, s/p Neostigmine (with cardiac monitoring) with good results. Repeated course on 06/20. No longer on TPN. (2) Intra-abdominal fluid collection: Current visit: Yes Status: Acute Discussed with surgery. We both feel that these are unlikely to represent abscesses, but could be seromas/pseudocysts. Will need serial follow up. Clinically, the patient has no evidence of peritonitis. (3) Pneumonia: Current visit: Yes Status: Acute Likely due to aspiration, not present on admission. Continue Vancomycin (Day 6), Pip-Tazo (day 8) with aspiration precautions. Encourage ambulation. (4) Pancreatitis, acute: Current visit: Yes Status: Acute ?with pancreatic pseudocysts. Made NPO. Consider resuming TPN. Qualifiers: Pancreatitis type: unspecified pancreatitis type Acute pancreatitis complication: no infection or necrosis Qualified Code(s): K85.90 - Acute pancreatitis without necrosis or infection, unspecified (5) Alcohol abuse: Current visit: No Status: Chronic Confusion may in fact be sundowning on top of Wernicke's encephalopathy. Continue thiamine. Continue seroquel. Not withdrawing at this point. Motivated to quit. (6) Melena: Current visit: Yes Status: Resolved Continue IV PPI BID. Will need an EGD - as H/H is stable, could be done as outpatient. (7) COPD (chronic obstructive pulmonary disease): Current visit: No Status: Chronic At baseline. Continue Home Inhaler therapy with Tiotropium, IGC/LABA. (8) DVT prophylaxis: Current visit: Yes Status: Acute SCDs given GIB. (9) Discharge planning issues: Current visit: Yes Status: Acute Full code Because he is clinically worse today, would keep in ICU. Subjective Interval history since last seen: Worse today and complaining of LLQ pain. Continues to have bowel movements and to pass flatus. Was unable to tolerate insertion of the NG tube today. He denies dizziness, chest pain, shortness of breath, nausea. Exam Narrative Exam Narrative: General: A&Ox3, more distended today, uncomfortable HEENT: EOMI, MMM Heart: RRR, no m/r/g Lungs: clear and diminished breath sounds B GI: abdomen very distended, + bowel sounds, minimally tender to palpation Extremities: 1+ pedal pulses, no edema, clubbing or cyanosis of BLE's Objective Objective Clinical Data: Abnormal lab results 06/24/18 06/24/18 Range/Units 06:06 06:06 RBC 3.24 L (4.50-6.00) m/cumm Hgb 10.6 L (13.5-17.5) g/dL Hct 33.2 L (40.0-50.0) % MCV 102.5 H (80-95) fL MCHC 31.9 L (32.0-36.0) g/dL Plt Count 514 H (130-400) x1000/uL Absolute Neutrophils 7.22 H (1.2-6.7) k/cumm Absolute Lymphocytes 0.66 L (1.2-3.4) k/cumm Absolute Monocytes 0.84 H (0.11-0.7) k/cumm Magnesium 2.7 H (1.8-2.4) mg/dL Conjugated Bilirubin 0.24 H (0.00-0.20) mg/dL AST 39 H (15-37) U/L Alkaline Phosphatase 617 H (46-116) U/L Albumin 1.7 L (3.4-5.0) g/dL Vital Signs Temperature 37.3 C 06/24/18 14:46 Temperature Source Temporal Artery Scan 06/24/18 14:46 Pulse 87 06/24/18 14:36 Pulse Rhythm Regular 06/12/18 08:00 Pulse 90 06/24/18 14:36 Respiratory Rate 18 06/24/18 12:00 Respiratory Effort 06/24/18 11:45 Respiratory Depth Normal 06/24/18 11:45 Respiratory Pattern Normal 06/24/18 11:45 Blood Pressure 146/95 H 06/24/18 14:36 Blood Pressure Mean 105 06/24/18 14:36 Blood Pressure Position Supine 06/24/18 11:45 Pulse Oximetry 96 06/24/18 14:00 Oxygen Delivery Method Nasal Cannula 06/24/18 11:45 Oxygen Flow Rate 1 06/24/18 11:45 Pain Level 7 06/24/18 11:45 Comment 06/17/18 01:50 Intake & Output 06/23/18 06/24/18 06/24/18 23:59 11:59 23:59 Intake Total 1560 / 2110 680.000 / 930.000 250 / 930.000 Output Total 1200 / 2450 860 / 1703 843 / 1703 Balance 360 / -340 -180.000 / -773.000 -593 / -773.000 Weight 62.5 kg Intake: IV 450 / 800 350.000 / 600.000 250 / 600.000 Oral 1110 / 1310 330 / 330 Output: Urine 1200 / 2450 800 / 1643 843 / 1643 Stool 60 / 60 Other: Urine Color Yellow Yellow Yellow Urine Appearance Clear Clear Clear Urine Odor Normal Normal None Comment Voids to urinal. Noel has been D/C mixed with stool Stool Size Small Stool Characteristics Liquid Brown Black Voiding Methods Urinal Urinal Urinal Laboratory Results WBC 9.38 k/cumm (4.4-10.8) 06/24/18 06:06 RBC 3.24 m/cumm (4.50-6.00) L 06/24/18 06:06 Hgb 10.6 g/dL (13.5-17.5) L 06/24/18 06:06 Hct 33.2 % (40.0-50.0) L 06/24/18 06:06 MCV 102.5 fL (80-95) H 06/24/18 06:06 MCH 32.7 pg (27.0-33.0) 06/24/18 06:06 MCHC 31.9 g/dL (32.0-36.0) L 06/24/18 06:06 RDW 12.8 % (11.8-14.1) 06/24/18 06:06 Plt Count 514 x1000/uL (130-400) H 06/24/18 06:06 MPV 10.3 fL (8.0-11.0) 06/24/18 06:06 Immature Gran % See Differential 06/24/18 06:06 Neutrophils % 75.0 06/24/18 06:06 Band Neutrophils % 2.0 % 06/24/18 06:06 Lymphocytes % 7.0 06/24/18 06:06 Monocytes % 9.0 06/24/18 06:06 Eosinophils % 2.0 06/24/18 06:06 Basophils % 1.0 06/24/18 06:06 Absolute Neutrophils 7.22 k/cumm (1.2-6.7) H 06/24/18 06:06 Band Neutrophils 2.0 % 06/19/18 07:12 Absolute Lymphocytes 0.66 k/cumm (1.2-3.4) L 06/24/18 06:06 Absolute Monocytes 0.84 k/cumm (0.11-0.7) H 06/24/18 06:06 Absolute Eosinophils 0.19 k/cumm (0.0-0.7) 06/24/18 06:06 Absolute Basophils 0.09 k/cumm (0.0-0.2) 06/24/18 06:06 Metamyelocytes 2.0 % 06/24/18 06:06 Myelocytes 2.0 % 06/24/18 06:06 Differential Comment Manual differential 06/24/18 06:06 RBC Morphology See below 06/24/18 06:06 Polychromasia Present 06/24/18 06:06 Poikilocytosis 1+ 06/19/18 07:12 Macrocytosis 1+ 06/21/18 06:10 Stomatocytes 2+ 06/24/18 06:06 PT 9.5 sec (9.3-11.0) 06/10/18 06:25 INR 1.0 (0.9-1.1) 06/10/18 06:25 Sodium 145 mmol/L (136-145) 06/24/18 06:06 Potassium 3.7 mmol/L (3.5-5.1) 06/24/18 06:06 Chloride 106 mmol/L (98-107) 06/24/18 06:06 Carbon Dioxide 30.5 mmol/L (21.0-32.0) 06/24/18 06:06 Anion Gap 8.5 mmol/L (3-11) 06/24/18 06:06 BUN 12 mg/dL (7-18) 06/24/18 06:06 Creatinine 1.03 mg/dL (0.70-1.30) 06/24/18 06:06 Estimated GFR/1.73 m2 >= 60.00 (mL/min/1.73m2) 06/24/18 06:06 Glucose 87 mg/dL (70-100) 06/24/18 06:06 Calcium 8.6 mg/dL (8.5-10.1) 06/24/18 06:06 Magnesium 2.7 mg/dL (1.8-2.4) H 06/24/18 06:06 Total Bilirubin 0.6 mg/dL (0.2-1.0) 06/24/18 06:06 Conjugated Bilirubin 0.24 mg/dL (0.00-0.20) H 06/24/18 06:06 AST 39 U/L (15-37) H 06/24/18 06:06 ALT 55 U/L (12-78) 06/24/18 06:06 Alkaline Phosphatase 617 U/L (46-116) H 06/24/18 06:06 Troponin I < 0.02 ng/mL (0.00-0.06) 06/09/18 10:30 Total Protein 6.6 g/dL (6.4-8.2) 06/24/18 06:06 Albumin 1.7 g/dL (3.4-5.0) L 06/24/18 06:06 Lipase 766 U/L (73-393) H 06/13/18 06:10 Urine Color Yellow (Yellow) 06/17/18 11:00 Urine Clarity Clear 06/17/18 11:00 Urine pH 7.5 (5-8) 06/17/18 11:00 Ur Specific [place] 1.015 (1.005-1.025) 06/17/18 11:00 Urine Protein Negative mg/dL (Negative) 06/17/18 11:00 Urine Ketones Negative mg/dL (Negative) 06/17/18 11:00 Urine Blood Trace-lysed (Negative) H 06/17/18 11:00 Urine Nitrite Negative (Negative) 06/17/18 11:00 Urine Bilirubin Negative (Negative) 06/17/18 11:00 Urine Urobilinogen 0.2 EU/dL (Up TO 0.2) 06/17/18 11:00 Ur Leukocyte Esterase Negative (Negative) 06/17/18 11:00 Urine RBC 5-10 (0-2) H 06/17/18 11:00 Urine WBC Negative HPF (0-5) 06/17/18 11:00 Ur Epithelial Cells Negative HPF (Negative) 06/17/18 11:00 Urine Crystals Negative HPF (Negative) 06/17/18 11:00 Urine Bacteria Few HPF (Negative) 06/17/18 11:00 Urine Casts Negative LPF (Negative) 06/17/18 11:00 Urine Mucus Negative (Negative) 06/17/18 11:00 Urine Other Negative (Negative) 06/17/18 11:00 Ur Culture Indicated? No 06/17/18 11:00 Urine Glucose Negative mg/dL (Negative) 06/17/18 11:00 Vancomycin Trough 24.0 ug/mL (10.0-20.0) H* 06/23/18 11:30 Hepatitis A IgM Ab Negative (NEGAT) 06/09/18 11:30 Hep Bs Antigen Negative (NEGAT) 06/09/18 11:30 Hep B Core Total Ab Negative (NEGAT) 06/09/18 11:30 Hepatitis C Antibody Negative (NEGAT) 06/09/18 11:30 CT abdomen/pelvis: 1. Multiple loops of Grossly dilated small bowel up to 6 cm consistent with small bowel obstruction or ileus. Transition point may be in the right abdomen. Small bowel loops are more dilated than on the prior study 2. Loculated fluid collection adjacent to the body of the pancreas. 5.4 x 2 cm. Loculated fluid collection adjacent to the head of the pancreas 4.1 x 4.4 cm. Loculated fluid collection between the liver and the right kidney 6.9 x 4 cm. Loculated fluid collection inferior to the right kidney adjacent to the right psoas 4 x 2 cm. Loculated fluid collection anterior to the SMA within the mid abdomen 8.5 x 3 cm. Loculated fluid collection in the left pericolic gutter 2.2 x 1.8 cm. Differential includes abscess, hematoma, seroma, pancreatic pseudocyst. These were present on the prior study but have increased in size and extension 3. Moderate right pleural effusion. Smaller left pleural effusion. Left pleural effusion has decreased in size 4. Consolidation in the lower lobes may represent atelectasis or pneumonia. 5. There is pericholecystic fluid. The gallbladder wall enhances and is thickened over 3 mm. This may represent acute cholecystitis. CXR:1. Opacities in the medial left base may represent atelectasis or pneumonia. 2. Multiple loops of dilated bowel may represent obstruction or ileus. 3. Blunting of the left costophrenic angle may represent small left pleural effusion.
[2018-06-24] MEDS: DEXTROSE 5%-0.9% SALINE 1,000 ML 75 ML IV (18:05)
[2018-06-24] MEDS: QUEtiapine 25 MG TAB PO (21:29)
[2018-06-25] VITALS (24 sets, daily range): BP systolic 118–165; BP diastolic 75–102; PULSE 78–97; RESP 18–29; TEMP 35.6–36.9; O2SAT 88–98
[2018-06-25] MEDS: Metoclopramide 10 MG/2 ML VIAL IVP ×4 (01:37→21:06)
[2018-06-25] MEDS: Normal Saline Flush 10 ML SYR IVP ×2 (01:38→10:02)
[2018-06-25] MEDS: PIPERACILLIN/TAZO 3.375 GM in Normal Saline 50 ML IVPB ×4 (01:39→21:07)
[2018-06-25] MEDS: traMADol 50 MG TAB PO ×4 (05:25→23:53)
[2018-06-25] MEDS: VANCOMYCIN 1,000 MG in Normal Saline 250 ML 166 MG IVPB (05:37)
--- NOTE | 2018-06-25 05:48 | PDOC.CMPRO ---
Care Management Progress Note S/O: Iggy continues to be monitored and treated in the ICU. Per MD, he was unable to tolerate NG tube and remains NPO at this time. He was seen walking through the hallway with the support of PT-recommended to help with ileus. CM will continue to follow. A: 63 yo male admitted for pancreatitis and alcoholism remains at ICU level of care P: Unchanged discharge plan. Return home with mother, Vee, at their [facility]. No services anticipated at this time. Follow up with Ricardo and his therapist, Brando Dobson. Family will transport when medically cleared for discharge..
[2018-06-25 07:30] LABS: HCT 31.1 % (40.0-50.0); HGB 9.8 g/dL (13.5-17.5); Mean Corp. HGB Concentration 31.5 g/dL (32.0-36.0); Mean Corpuscular Hemoglobin 32.2 pg (27.0-33.0); Mean Corpuscular Volume 102.3 fL (80-95); Mean Platelet Volume 10.8 fL (8.0-11.0); Platelet Count 546 x1000/uL (130-400); RBC 3.04 m/cumm (4.50-6.00); RBC Distribution Width 12.5 % (11.8-14.1); White Blood Cell Count 6.86 k/cumm (4.4-10.8)
[2018-06-25 08:08] LABS: ALT 47 U/L (12-78); AST 40 U/L (15-37); Albumin 1.6 g/dL (3.4-5.0); Alkaline Phosphatase 576 U/L (46-116); Anion Gap 8.5 mmol/L (3-11); BUN 10 mg/dL (7-18); Bilirubin, Total 0.7 mg/dL (0.2-1.0); CO2 28.5 mmol/L (21.0-32.0); CREATININE 0.92 mg/dL (0.70-1.30); Chloride 108 mmol/L (98-107); Glucose 85 mg/dL (70-100); Magnesium 2.5 mg/dL (1.8-2.4); Potassium 3.2 mmol/L (3.5-5.1); Sodium 145 mmol/L (136-145)
[2018-06-25 08:19] LABS: Absolute Lymphocyte Count 0.69 k/cumm (1.2-3.4); Absolute Neutrophil Count 5.35 k/cumm (1.2-6.7)
[2018-06-25 08:20] LABS: Absolute Eosinophil Count 0.14 k/cumm (0.0-0.7); Absolute Monocyte Count 0.55 k/cumm (0.11-0.7); Diff Comment Manual Differential; Polychromasia Present
--- NOTE | 2018-06-25 08:39 | DI.RAD_ITS ---
SYMPTOM/DIAGNOSIS: ILEUS ACUTE ABDOMINAL SERIES: Comparison exams are 06/24/18. PA CHEST: Heart size and pulmonary vasculature are within normal limits. There is a persistent small left pleural effusion and small right pleural effusion. These appear stable. There is improved aeration of the left lung base and a persistent right upper lobe infiltrate. No pneumothorax is seen. The tip of the PICC line is again seen in the superior vena cava. IMPRESSION: 1. Stable small pleural effusions. 2. Stable right perihilar infiltrate, improvement in the left basilar infiltrate. FLAT AND UPRIGHT ABDOMEN: There are persistent distended loops of bowel present. Overall the appearance of the bowel is not significantly improved compared to the prior examination. No pneumoperitoneum or organomegaly is identified. There is again seen a mild left convex curvature of the lumbar spine. Stable degenerative changes are seen in the hips, left greater than right. IMPRESSION: Stable bowel dilatation. The findings are consistent with a stable ileus or stable bowel obstruction.
[2018-06-25] MEDS: Budesonide/Formoterol 160/4.5 6 GM 60 PUFF INH IH ×2 (09:08→21:07)
--- NOTE | 2018-06-25 09:08 | PT.INTREAT ---
Date of service: 06/25/18 Time of Service: 09:08 PT Notes Inpatient Physical Therapy Treatment Note [facility] Date: 06/25/18 PRECAUTIONS:Fall SUBJECTIVE: Pt reports that he is tired today. He states that he does not have any stomach pain this am. OBJECTIVE: Sit-stand: SBA Stand-sit: SBA GAIT Assistive Device: FWW Weight bearing: Full Assist: CGA Distance: 130ft THEREX: Pt completed UE and LE ther ex with a 2#wt as per flow sheet while in the seated position. ASSESSMENT: Pt tolerated today's session fairly well. Pt the pasts 2 visits has taken a little more motivation to walk but did agree to walk with me today. PLAN: Cont as per PT POC. TREATMENT CODE/TIME: 8:45-9:05 (20) TP
[2018-06-25] MEDS: DEXTROSE 5%-0.9% SALINE 1,000 ML 75 ML IV (09:49)
[2018-06-25] MEDS: POTASSIUM CHLORIDE 20 MEQ/100 ML BAG 50 MEQ IVPB ×2 (09:51→14:48)
[2018-06-25] MEDS: Pantoprazole 40 MG VIAL IVP ×2 (09:55→21:06)
[2018-06-25] MEDS: Nicotine 21 MG/24 HR PATCH TD (10:03)
--- NOTE | 2018-06-25 12:07 | SCONE_ITS ---
Date of service: 06/25/18 Time of Service: 12:01 Assessment and Plan (1) Ileus: Start date: 06/25/18 Start time: 12:04 Current visit: Yes Status: Acute Asked to reconsult on Mr Urias my medical doctor, he is well known to me and his condition may benefit from an NGT but he has clinically improved and is the best jenni seen him i have place 3 NGT on him already over the past 2 weeks due to the failure of the NGT placement earlier would not reattempt oob to chair and PT may help the ileus no other treatment recommended History of Present Illness Chief Complaint: alcohol pancreatitis with small bowel and colonic ileus Review of Systems Constitutional Reports as per HPI Gastrointestinal Reports as per HPI [facility] Medical History COPD (chronic obstructive pulmonary disease) (Chronic) Adjustment disorder with anxiety (Acute) Dyspepsia (Acute) Malignant neoplasm of right lung (Acute) Tubular adenoma of colon (Acute) Alcohol abuse (Chronic) Anxiety (Chronic) Surgical History History of lung biopsy (Resolved) History of surgery on upper extremity (Resolved) colonoscopy (01/19/15) Family History Father Essential hypertension Hyperlipidemia Paternal Uncle Heart disease Stroke Cerebral hemorrhage Hypertension Brother Cancer Social History adopted: No foster care: No household members: family housing: house lives independently: Yes current occupation: not working Smoking/Tobacco Use Status: Former Tobacco Use alcohol intake: current alcohol intake frequency: 3 or more drinks per day Alcohol type: beer and wine substance use type: does not use seatbelt use: always drive intox or ride w/ intox 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 water heater temp set < 120 deg: Yes working smoke detector in home: Yes fire extinguisher in home: Yes carbon monox detector in home: Yes firearms in home: Yes Exam GI Inspection: normal to inspection Palpation: soft Percussion: normal to percussion Auscultation: normal bowel sounds Other: pt abdomen is the softest jenni seen on him, reviewed the xrays and does have SB ileus, ngt attempted again and could not pass pt has had multiple ones placed and his non compliance he pulled all them out Results Last Vital Signs Temp 36.5 C 06/25/18 06:04 Pulse 79 06/25/18 04:01 Resp 27 H 06/25/18 02:00 BP 118/91 H 06/25/18 04:01 Pulse Ox 95 06/25/18 04:01 Labs : 06/25/18 06:25 06/25/18 06:25 Laboratory Results - last 24 hr 06/25/18 06/25/18 06:25 06:25 WBC 6.86 RBC 3.04 L Hgb 9.8 L Hct 31.1 L MCV 102.3 H MCH 32.2 MCHC 31.5 L RDW 12.5 Plt Count 546 H MPV 10.8 Immature Gran % See Differential Neutrophils % 75.0 Band Neutrophils % 3.0 Lymphocytes % 10.0 Monocytes % 8.0 Eosinophils % 2.0 Basophils % 0.0 Absolute Neutrophils 5.35 Absolute Lymphocytes 0.69 L Absolute Monocytes 0.55 Absolute Eosinophils 0.14 Absolute Basophils 0.00 Metamyelocytes 1.0 Differential Comment Manual differential RBC Morphology See below Polychromasia Present Sodium 145 Potassium 3.2 L Chloride 108 H Carbon Dioxide 28.5 Anion Gap 8.5 BUN 10 Creatinine 0.92 Estimated GFR/1.73 m2 >= 60.00 Glucose 85 Calcium 8.0 L Magnesium 2.5 H Total Bilirubin 0.7 AST 40 H ALT 47 Alkaline Phosphatase 576 H Total Protein 6.0 L Albumin 1.6 L
--- NOTE | 2018-06-25 14:52 | PT.INTREAT ---
Date of service: 06/25/18 Time of Service: 14:53 PT Notes Inpatient Physical Therapy Treatment Note [facility] Date: 06/25/18 PRECAUTIONS: Fall SUBJECTIVE: Iggy states that he is feeling much better today than he has been. OBJECTIVE: PAIN: Patient c/o minimal back pain BED MOBILITY/TRANSFERS Supine-sit: I Sit-supine: I Sit-stand: SBA Stand-sit: SBA GAIT Assistive Device: FWW; No AD Weight bearing: Full Assist: SBA with FWW; CGA with No AD Distance: 200' with FWW; 400' with No AD Deviation: Steady gait, cues for pacing THEREX: Patient completed a standing LE strengthening program with SBA, as per flow sheet. NEURO RE-ED: Patient completed a static and dynamic balance retraining program, as per flow sheet. Patient tolerated the addition of static balance activities, such as, SLS, tandem stance, and ft together with eyes open/closed. Patient also tolerated gait training with head turns and perturbations while maintaining steady gait and without demonstrating LOB. ASSESSMENT: Patient tolerated session well. He was able to progress from gait training with FWW support, to gait training without assistive device and CGA only. He was able to tolerate perturbations and walking with head turns as well, without LOB. Patient would benefit from continued gait training with least restrictive device/no support device, as well as continued balance retraining activities. PLAN: Continue with PT's POC TREATMENT CODE/TIME: 40 minutes; (94139 x2, 99404 x1)
[2018-06-25 14:57] LABS: Bilirubin, Direct 0.22 mg/dL (0.00-0.20)
[2018-06-25 16:01] LABS: Vancomycin, Trough 23.6 ug/mL (10.0-20.0)
--- NOTE | 2018-06-25 17:36 | W.PM.PROGNOT ---
Date of Service Date of service: 06/25/18 Time of Service: 12:00 Assessment and Plan (1) Ileus: Current visit: Yes Status: Acute Even though his pictures are being interpreted as stable, he is clinically improving. Trialing clear liquid diet. Continue reglan. Discussed with general surgery - assistance appreciated. Unable to tolerate insertion of NG tube yesterday. *Ileus is likely triggered by acute pancreatitis - Underwent decompression via CScope 06/15, s/p Neostigmine (with cardiac monitoring) with good results. Repeated course on 06/20. No longer on TPN. (2) Intra-abdominal fluid collection: Current visit: No Status: Acute Discussed with surgery. Likely seromas/pseudocysts. Will need serial follow up. Clinically, the patient has no evidence of peritonitis. (3) Pneumonia: Current visit: Yes Status: Acute Likely due to aspiration, not present on admission. Continue Vancomycin (Day 7), Pip-Tazo (day 9) with aspiration precautions. Encourage ambulation. D/c antibiotics tomorrow. (4) Pancreatitis, acute: Current visit: Yes Status: Acute ?with pancreatic pseudocysts. Retrying clear liquids. Qualifiers: Pancreatitis type: unspecified pancreatitis type Acute pancreatitis complication: no infection or necrosis Qualified Code(s): K85.90 - Acute pancreatitis without necrosis or infection, unspecified (5) Alcohol abuse: Current visit: No Status: Chronic Confusion may in fact be sundowning on top of Wernicke's encephalopathy. Continue thiamine. Continue seroquel. Not withdrawing at this point. Motivated to quit. (6) Melena: Current visit: Yes Status: Resolved Continue IV PPI BID. Will need an EGD - as H/H is stable, could be done as outpatient. (7) COPD (chronic obstructive pulmonary disease): Current visit: No Status: Chronic At baseline. Continue Home Inhaler therapy with Tiotropium, IGC/LABA. (8) DVT prophylaxis: Current visit: Yes Status: Acute SCDs given GIB. (9) Discharge planning issues: Current visit: Yes Status: Acute Full code Likely ok to transfer out of ICU. Subjective Interval history since last seen: Feels better today, having passed a lot of flatus. He has been having diarrhea. He did report abdominal pain to nursing in am, but not to me. He denies dizziness, chest pain, shortness of breath, nausea, vomiting. Exam Narrative Exam Narrative: General: A&Ox3, appears more comfortably and less distended HEENT: EOMI, MMM Heart: RRR, no m/r/g Lungs: clear and diminished breath sounds B GI: abdomen less distended, + bowel sounds, minimally tender to palpation Extremities: 1+ pedal pulses, no edema, clubbing or cyanosis of BLE's Objective Objective Clinical Data: Abnormal lab results 06/25/18 06/25/18 06/25/18 Range/Units 06:25 06:25 15:23 RBC 3.04 L (4.50-6.00) m/cumm Hgb 9.8 L (13.5-17.5) g/dL Hct 31.1 L (40.0-50.0) % MCV 102.3 H (80-95) fL MCHC 31.5 L (32.0-36.0) g/dL Plt Count 546 H (130-400) x1000/uL Absolute Lymphocytes 0.69 L (1.2-3.4) k/cumm Potassium 3.2 L (3.5-5.1) mmol/L Chloride 108 H (98-107) mmol/L Calcium 8.0 L (8.5-10.1) mg/dL Magnesium 2.5 H (1.8-2.4) mg/dL Conjugated Bilirubin 0.22 H (0.00-0.20) mg/dL AST 40 H (15-37) U/L Alkaline Phosphatase 576 H (46-116) U/L Total Protein 6.0 L (6.4-8.2) g/dL Albumin 1.6 L (3.4-5.0) g/dL Vancomycin Trough 23.6 H* (10.0-20.0) ug/mL Vital Signs Temperature 36.8 C 06/25/18 15:59 Temperature Source Tympanic 06/25/18 15:59 Pulse 88 06/25/18 15:59 Pulse Rhythm Regular 06/12/18 08:00 Pulse 97 H 06/25/18 14:00 Respiratory Rate 21 06/25/18 15:59 Respiratory Effort Non-Labored 06/25/18 14:45 Respiratory Depth Normal 06/25/18 14:45 Respiratory Pattern Normal 06/25/18 14:45 Blood Pressure 165/90 H 06/25/18 15:59 Blood Pressure Mean 103 06/25/18 12:40 Blood Pressure Position Supine 06/24/18 20:30 Pulse Oximetry 93 L 06/25/18 15:59 Oxygen Delivery Method Room Air 06/25/18 15:59 Oxygen Flow Rate 0 06/25/18 15:59 Pain Level 0 06/25/18 14:45 Comment 06/17/18 01:50 Intake & Output 06/24/18 06/25/18 06/25/18 23:59 11:59 23:59 Intake Total 961.250 / 1641.250 908.75 / 2245.75 1337 / 2245.75 Output Total 1893 / 2753 1340 / 1690 350 / 1690 Balance -931.750 / -1111.750 -431.25 / 555.75 987 / 555.75 Intake: IV 961.250 / 1311.250 878.75 / 1138.75 260 / 1138.75 Oral 30 / 1107 1077 / 1107 Output: Urine 1493 / 2293 855 / 1205 350 / 1205 Stool 400 / 460 485 / 485 Other: Urine Color Yellow Yellow Yellow Urine Appearance Clear Clear Cloudy Urine Odor Normal Normal Comment mixed with stool in commode mixed with stool. Stool Size Moderate Stool Characteristics Liquid Liquid Brown Brown Voiding Methods Bedside Commode Urinal Urinal Laboratory Results WBC 6.86 k/cumm (4.4-10.8) 06/25/18 06:25 RBC 3.04 m/cumm (4.50-6.00) L 06/25/18 06:25 Hgb 9.8 g/dL (13.5-17.5) L 06/25/18 06:25 Hct 31.1 % (40.0-50.0) L 06/25/18 06:25 MCV 102.3 fL (80-95) H 06/25/18 06:25 MCH 32.2 pg (27.0-33.0) 06/25/18 06:25 MCHC 31.5 g/dL (32.0-36.0) L 06/25/18 06:25 RDW 12.5 % (11.8-14.1) 06/25/18 06:25 Plt Count 546 x1000/uL (130-400) H 06/25/18 06:25 MPV 10.8 fL (8.0-11.0) 06/25/18 06:25 Immature Gran % See Differential 06/25/18 06:25 Neutrophils % 75.0 06/25/18 06:25 Band Neutrophils % 3.0 % 06/25/18 06:25 Lymphocytes % 10.0 06/25/18 06:25 Monocytes % 8.0 06/25/18 06:25 Eosinophils % 2.0 06/25/18 06:25 Basophils % 0.0 06/25/18 06:25 Absolute Neutrophils 5.35 k/cumm (1.2-6.7) 06/25/18 06:25 Band Neutrophils 2.0 % 06/19/18 07:12 Absolute Lymphocytes 0.69 k/cumm (1.2-3.4) L 06/25/18 06:25 Absolute Monocytes 0.55 k/cumm (0.11-0.7) 06/25/18 06:25 Absolute Eosinophils 0.14 k/cumm (0.0-0.7) 06/25/18 06:25 Absolute Basophils 0.00 k/cumm (0.0-0.2) 06/25/18 06:25 Metamyelocytes 1.0 % 06/25/18 06:25 Myelocytes 2.0 % 06/24/18 06:06 Differential Comment Manual differential 06/25/18 06:25 RBC Morphology See below 06/25/18 06:25 Polychromasia Present 06/25/18 06:25 Poikilocytosis 1+ 06/19/18 07:12 Macrocytosis 1+ 06/21/18 06:10 Stomatocytes 2+ 06/24/18 06:06 PT 9.5 sec (9.3-11.0) 06/10/18 06:25 INR 1.0 (0.9-1.1) 06/10/18 06:25 Sodium 145 mmol/L (136-145) 06/25/18 06:25 Potassium 3.2 mmol/L (3.5-5.1) L 06/25/18 06:25 Chloride 108 mmol/L (98-107) H 06/25/18 06:25 Carbon Dioxide 28.5 mmol/L (21.0-32.0) 06/25/18 06:25 Anion Gap 8.5 mmol/L (3-11) 06/25/18 06:25 BUN 10 mg/dL (7-18) 06/25/18 06:25 Creatinine 0.92 mg/dL (0.70-1.30) 06/25/18 06:25 Estimated GFR/1.73 m2 >= 60.00 (mL/min/1.73m2) 06/25/18 06:25 Glucose 85 mg/dL (70-100) 06/25/18 06:25 Calcium 8.0 mg/dL (8.5-10.1) L 06/25/18 06:25 Magnesium 2.5 mg/dL (1.8-2.4) H 06/25/18 06:25 Total Bilirubin 0.7 mg/dL (0.2-1.0) 06/25/18 06:25 Conjugated Bilirubin 0.22 mg/dL (0.00-0.20) H 06/25/18 06:25 AST 40 U/L (15-37) H 06/25/18 06:25 ALT 47 U/L (12-78) 06/25/18 06:25 Alkaline Phosphatase 576 U/L (46-116) H 06/25/18 06:25 Troponin I < 0.02 ng/mL (0.00-0.06) 06/09/18 10:30 Total Protein 6.0 g/dL (6.4-8.2) L 06/25/18 06:25 Albumin 1.6 g/dL (3.4-5.0) L 06/25/18 06:25 Lipase 766 U/L (73-393) H 06/13/18 06:10 Urine Color Yellow (Yellow) 06/17/18 11:00 Urine Clarity Clear 06/17/18 11:00 Urine pH 7.5 (5-8) 06/17/18 11:00 Ur Specific [place] 1.015 (1.005-1.025) 06/17/18 11:00 Urine Protein Negative mg/dL (Negative) 06/17/18 11:00 Urine Ketones Negative mg/dL (Negative) 06/17/18 11:00 Urine Blood Trace-lysed (Negative) H 06/17/18 11:00 Urine Nitrite Negative (Negative) 06/17/18 11:00 Urine Bilirubin Negative (Negative) 06/17/18 11:00 Urine Urobilinogen 0.2 EU/dL (Up TO 0.2) 06/17/18 11:00 Ur Leukocyte Esterase Negative (Negative) 06/17/18 11:00 Urine RBC 5-10 (0-2) H 06/17/18 11:00 Urine WBC Negative HPF (0-5) 06/17/18 11:00 Ur Epithelial Cells Negative HPF (Negative) 06/17/18 11:00 Urine Crystals Negative HPF (Negative) 06/17/18 11:00 Urine Bacteria Few HPF (Negative) 06/17/18 11:00 Urine Casts Negative LPF (Negative) 06/17/18 11:00 Urine Mucus Negative (Negative) 06/17/18 11:00 Urine Other Negative (Negative) 06/17/18 11:00 Ur Culture Indicated? No 06/17/18 11:00 Urine Glucose Negative mg/dL (Negative) 06/17/18 11:00 Vancomycin Trough 23.6 ug/mL (10.0-20.0) H* 06/25/18 15:23 Hepatitis A IgM Ab Negative (NEGAT) 06/09/18 11:30 Hep Bs Antigen Negative (NEGAT) 06/09/18 11:30 Hep B Core Total Ab Negative (NEGAT) 06/09/18 11:30 Hepatitis C Antibody Negative (NEGAT) 06/09/18 11:30 Acute abdominal series: Stable bowel dilatation. The findings are consistent with a stable ileus or stable bowel obstruction. CXR: 1. Stable small pleural effusions. 2. Stable right perihilar infiltrate, improvement in the left basilar infiltrate.
[2018-06-25] MEDS: VANCOMYCIN 1,000 MG in Normal Saline 250 ML 250 MG IVPB (21:07)
[2018-06-25] MEDS: QUEtiapine 25 MG TAB PO (21:08)
--- NOTE | 2018-06-25 22:59 | NUR.NOTE ---
Patient was transfered from the ICU with history of Pancreatitis and Alcholism. Patient is conscious, alert, rational oriented x 3 breathing spontaneously on room air. Chest clear when ascultated, abdomen soft flat and non-tender, reddish pustules noted to the abdomen. No abnormalities noted to the bilateral extremities, with good pedal pulses. Triple lumen noted to the left upper extremities.
[2018-06-25] MEDS: Acetaminophen 325 MG TAB PO (23:54)
[2018-06-26] VITALS (8 sets, daily range): BP systolic 127–163; BP diastolic 73–101; PULSE 72–95; RESP 17–20; TEMP 36.7–37.1; O2SAT 94–96
[2018-06-26] MEDS: Normal Saline Flush 10 ML SYR IVP ×6 (01:51→13:53)
[2018-06-26] MEDS: PIPERACILLIN/TAZO 3.375 GM in Normal Saline 50 ML IVPB ×2 (01:51→08:48)
[2018-06-26] MEDS: Metoclopramide 10 MG/2 ML VIAL IVP ×4 (02:07→20:00)
[2018-06-26] MEDS: DEXTROSE 5%-0.9% SALINE 1,000 ML 75 ML IV (04:27)
[2018-06-26] MEDS: traMADol 50 MG TAB PO (06:57)
[2018-06-26 07:29] LABS: Abs Immature Grans 0.17 k/cumm (0.0-0.09); HCT 34.1 % (40.0-50.0); HGB 10.7 g/dL (13.5-17.5); Mean Corp. HGB Concentration 31.4 g/dL (32.0-36.0); Mean Corpuscular Volume 102.1 fL (80-95); Mean Platelet Volume 10.3 fL (8.0-11.0); Platelet Count 592 x1000/uL (130-400); RBC 3.34 m/cumm (4.50-6.00); RBC Distribution Width 12.4 % (11.8-14.1); White Blood Cell Count 5.65 k/cumm (4.4-10.8)
[2018-06-26] MEDS: Budesonide/Formoterol 160/4.5 6 GM 60 PUFF INH IH ×2 (07:38→19:59)
[2018-06-26 07:49] LABS: Anion Gap 7.7 mmol/L (3-11); BUN 7 mg/dL (7-18); CO2 28.3 mmol/L (21.0-32.0); CREATININE 1.03 mg/dL (0.70-1.30); Calcium 8.1 mg/dL (8.5-10.1); Chloride 107 mmol/L (98-107); Glucose 83 mg/dL (70-100); Magnesium 2.4 mg/dL (1.8-2.4); Potassium 3.6 mmol/L (3.5-5.1); Sodium 143 mmol/L (136-145)
[2018-06-26 08:33] LABS: Absolute Eosinophil Count 0.11 k/cumm (0.0-0.7); Absolute Lymphocyte Count 0.57 k/cumm (1.2-3.4); Absolute Monocyte Count 0.68 k/cumm (0.11-0.7); Absolute Neutrophil Count 4.18 k/cumm (1.2-6.7); Diff Comment Manual Differential
[2018-06-26 08:34] LABS: Poikilocytes 1+; Polychromasia Present
[2018-06-26] MEDS: Pantoprazole 40 MG VIAL IVP (08:41)
[2018-06-26] MEDS: FLUoxetine 10 MG TAB 30 MG PO (08:58)
[2018-06-26] MEDS: Thiamine 100 MG TAB PO (08:59)
[2018-06-26] MEDS: Cetirizine 10 MG TAB PO (09:00)
[2018-06-26] MEDS: Docusate Sodium 100 MG CAP PO (09:00)
[2018-06-26] MEDS: Nicotine 21 MG/24 HR PATCH TD (09:02)
[2018-06-26] MEDS: VANCOMYCIN 1,000 MG in Normal Saline 250 ML 250 MG IVPB (09:05)
--- NOTE | 2018-06-26 09:43 | PT.INPN ---
Date of service: 06/26/18 Time of Service: 09:00 PT Notes Inpatient Physical Therapy Progress Note [facility] Date: June 26, 2018 PRECAUTIONS:Fall Precautions SUBJECTIVE: Iggy states that he is feeling much better. His abdominal pain has resolved, but his back continues to bother him. He states that this is normal for him. He describes central LBP without radiation. OBJECTIVE: PAIN: LBP- chronic BED MOBILITY/TRANSFERS Rolling L/R: Independent Supine-sit: Independent Sit-supine: Independent Sit-stand: Independent Stand-sit: Independent GAIT Assistive Device: none Weight bearing: Full Assist: supervision Distance: 300 feet Deviation: mild ataxia Stairs: Patient able to manage therapeutic stairs 4 x 3, 6 x 2, ascending and descending x 2 with bilat rails and supervision only. Treatment: today's session consisted of re-evaluation, followed by instruction in progressed therex program as noted on flowsheet. Patient tolerated introduction of static and dynamic balance activities, and completed supine activites for lumbar stabilization. We reviewed his UE/LE strengthening program, which he is now independent with. He also completed ambulation with supervision as noted above. ASSESSMENT: Patient is a 63 year old male referred to physical therapy services with the diagnosis of deconditioning. He is currently hospitalized for medical management of pancreatitis related to chronic alcoholism, as well as pneumonia and pleural effusion. He has made significant gains in independence and safety, and is now able to ambulate independently in his room. Will continue PT services for strengthening, balance retraining, and cardiovascular retraining. Due to his improved independence, will have him work on UE/LE strengthening activities independently, and decrease frequency to 1 session per day balance retraining and cardiovascular retraining. Goals X1 week 1. Supine-Sit : supervision - MET 2. Sit-Supine supervision - MET 3. Sit-Stand supervision with WW - MET 4. Stand-Sit supervision with WW - MET 5. Bed-Chair supervision with WW - MET 6. Chair-Bed supervision with WW - MET 7. Gait supervision with WW x 25' - MET 8. Stairs ascend and descend x 5 steps with bilat rails, supervision MET NEW GOALS: 9. Safe, independent ambulation x 300' without assistive device PLAN: Will decrease to once a day for strengthening, gait and functional mobility training. TREATMENT CODE/TIME: 30 minutes ([id number])
--- NOTE | 2018-06-26 09:49 | CMPROGNOTE_ITS ---
- If Service Date Differs Date of service: 06/26/18 Time of Service: 09:48 Care Management Progress Note S/O: CM met with Iggy at the bedside he is alert and engaged he states he is feeling good. Iggy remains acute he is receiving PT. He states he is tolerating PO. Anticipate he is nearing discharge readiness. Iggy will reengaged with chronic home care consultant after discharge CM to provide update prior to patients discharge. Iggy will be scheduled with primary care provider for follow up after discharge. A: 63 yo male admitted for pancreatitis and alcoholism remains at ICU level of care P: Unchanged discharge plan. Return home with mother, Vee, at their [facility]. No services anticipated at this time. Follow up with Ricardo and his therapist, Brando Dobson. Family will transport when medically cleared for discharge..
[2018-06-26] MEDS: Alteplase 2 MG VIAL IJ (11:59)
[2018-06-26] MEDS: Water,Injection,Bacteriostatic 30 ML VIAL (12:03)
--- NOTE | 2018-06-26 16:01 | CHAPLAIN ---
Iggy was in bed when I visited. He said he is feeling better, and then shared some personal history. He expects his parents will be later today to visit. Iggy seems to be comfortable being here. I offered ongoing support.
--- NOTE | 2018-06-26 16:49 | W.PM.PROGNOT ---
Date of Service Date of service: 06/26/18 Time of Service: 15:00 Assessment and Plan (1) Ileus: Current visit: Yes Status: Acute Clinically improving. Repeat KUB in am. Diet advanced to full liquid - will monitor. Continue reglan. *Ileus is likely triggered by acute pancreatitis - Underwent decompression via CScope 06/15, s/p Neostigmine (with cardiac monitoring) with good results. Repeated course on 06/20. No longer on TPN. (2) Intra-abdominal fluid collection: Current visit: No Status: Acute Discussed with surgery. Likely seromas/pseudocysts. Will need outpatient GI follow up. Clinically, the patient has no evidence of peritonitis. (3) Pneumonia: Current visit: Yes Status: Acute Likely due to aspiration, not present on admission. Abx d/c'ed. (4) Pancreatitis, acute: Current visit: Yes Status: Acute ?with pancreatic pseudocysts. Diet advanced to full liquids. Will need outpatient GI follow up. Consider addition of creon. Qualifiers: Pancreatitis type: unspecified pancreatitis type Acute pancreatitis complication: no infection or necrosis Qualified Code(s): K85.90 - Acute pancreatitis without necrosis or infection, unspecified (5) Alcohol abuse: Current visit: No Status: Chronic Confusion may in fact be sundowning on top of Wernicke's encephalopathy. Continue thiamine. Continue seroquel. Not withdrawing at this point. Motivated to quit. (6) Melena: Current visit: Yes Status: Resolved Transition to PO PPI. Will need an EGD - as H/H is stable, could be done as outpatient. (7) COPD (chronic obstructive pulmonary disease): Current visit: No Status: Chronic At baseline. Continue Home Inhaler therapy with Tiotropium, IGC/LABA. (8) DVT prophylaxis: Current visit: Yes Status: Acute SCDs given GIB. (9) Discharge planning issues: Current visit: Yes Status: Acute Full code Looking at a possible discharge in 2-3 days if tolerates regular diet. Subjective Interval history since last seen: Mr Urias is feeling much better today, he states, but he did notice he was shaky. He is requesting an ice-cream. He has been tolerating a full liquid diet. He denies any dizziness, chest pain, shortness of breath, nausea, vomiting, abdominal pain. He has been having diarrhea. Exam Narrative Exam Narrative: General: A&Ox3, in a good mood, slightly shaky. HEENT: EOMI, MMM Heart: RRR, no m/r/g Lungs: clear and diminished breath sounds B GI: abdomen still somewhat distended, + bowel sounds, nontender Extremities: 1+ pedal pulses, no edema, clubbing or cyanosis of BLE's Objective Objective Clinical Data: Abnormal lab results 06/26/18 06/26/18 Range/Units 07:14 07:14 RBC 3.34 L (4.50-6.00) m/cumm Hgb 10.7 L (13.5-17.5) g/dL Hct 34.1 L (40.0-50.0) % MCV 102.1 H (80-95) fL MCHC 31.4 L (32.0-36.0) g/dL Plt Count 592 H (130-400) x1000/uL Absolute Lymphocytes 0.57 L (1.2-3.4) k/cumm Calcium 8.1 L (8.5-10.1) mg/dL Vital Signs Temperature 37.1 C 06/26/18 15:45 Temperature Source Tympanic 06/26/18 15:45 Pulse 84 06/26/18 15:45 Pulse Rhythm Regular 06/26/18 15:47 Pulse 97 H 06/25/18 14:00 Respiratory Rate 18 06/26/18 15:45 Respiratory Effort Non-Labored 06/26/18 15:47 Respiratory Depth Normal 06/26/18 15:47 Respiratory Pattern Normal 06/26/18 15:47 Blood Pressure 161/93 H 06/26/18 15:45 Blood Pressure Mean 115 06/25/18 16:00 Blood Pressure Position Supine 06/25/18 16:00 Pulse Oximetry 94 L 06/26/18 15:45 Oxygen Delivery Method Room Air 06/26/18 15:45 Oxygen Flow Rate 0 06/26/18 15:45 Pain Level 0 06/26/18 15:45 Comment 06/17/18 01:50 Intake & Output 06/25/18 06/26/18 06/26/18 23:59 11:59 23:59 Intake Total 2817.00 / 3725.75 1051.25 / 1741.25 690 / 1741.25 Output Total 1125 / 2465 250 / 550 300 / 550 Balance 1692.00 / 1260.75 801.25 / 1191.25 390 / 1191.25 Intake: IV 1740.00 / 2618.75 601.25 / 601.25 0 / 601.25 Oral 1077 / 1107 450 / 1140 690 / 1140 Output: Urine 1125 / 1979 250 / 550 300 / 550 Other: Urine Color Yellow Yellow Yellow Urine Appearance Clear Clear Clear Urine Odor Normal Normal Comment flushed before viewed by nurse Stool Size Moderate Moderate Stool Characteristics Liquid Soft Brown Liquid Voiding Methods Urinal Toilet Laboratory Results WBC 5.65 k/cumm (4.4-10.8) 06/26/18 07:14 RBC 3.34 m/cumm (4.50-6.00) L 06/26/18 07:14 Hgb 10.7 g/dL (13.5-17.5) L 06/26/18 07:14 Hct 34.1 % (40.0-50.0) L 06/26/18 07:14 MCV 102.1 fL (80-95) H 06/26/18 07:14 MCH 32.0 pg (27.0-33.0) 06/26/18 07:14 MCHC 31.4 g/dL (32.0-36.0) L 06/26/18 07:14 RDW 12.4 % (11.8-14.1) 06/26/18 07:14 Plt Count 592 x1000/uL (130-400) H 06/26/18 07:14 MPV 10.3 fL (8.0-11.0) 06/26/18 07:14 Immature Gran % See Differential 06/26/18 07:14 Neutrophils % 74.0 06/26/18 07:14 Band Neutrophils % 3.0 % 06/25/18 06:25 Lymphocytes % 10.0 06/26/18 07:14 Monocytes % 12.0 06/26/18 07:14 Eosinophils % 2.0 06/26/18 07:14 Basophils % 0.0 06/26/18 07:14 Absolute Neutrophils 4.18 k/cumm (1.2-6.7) 06/26/18 07:14 Band Neutrophils 2.0 % 06/19/18 07:12 Absolute Lymphocytes 0.57 k/cumm (1.2-3.4) L 06/26/18 07:14 Absolute Monocytes 0.68 k/cumm (0.11-0.7) 06/26/18 07:14 Absolute Eosinophils 0.11 k/cumm (0.0-0.7) 06/26/18 07:14 Absolute Basophils 0.00 k/cumm (0.0-0.2) 06/26/18 07:14 Metamyelocytes 2.0 % 06/26/18 07:14 Myelocytes 2.0 % 06/24/18 06:06 Differential Comment Manual differential 06/26/18 07:14 RBC Morphology See below 06/26/18 07:14 Polychromasia Present 06/26/18 07:14 Poikilocytosis 1+ 06/26/18 07:14 Macrocytosis 1+ 06/21/18 06:10 Stomatocytes 2+ 06/24/18 06:06 PT 9.5 sec (9.3-11.0) 06/10/18 06:25 INR 1.0 (0.9-1.1) 06/10/18 06:25 Sodium 143 mmol/L (136-145) 06/26/18 07:14 Potassium 3.6 mmol/L (3.5-5.1) 06/26/18 07:14 Chloride 107 mmol/L (98-107) 06/26/18 07:14 Carbon Dioxide 28.3 mmol/L (21.0-32.0) 06/26/18 07:14 Anion Gap 7.7 mmol/L (3-11) 06/26/18 07:14 BUN 7 mg/dL (7-18) 06/26/18 07:14 Creatinine 1.03 mg/dL (0.70-1.30) 06/26/18 07:14 Estimated GFR/1.73 m2 >= 60.00 (mL/min/1.73m2) 06/26/18 07:14 Glucose 83 mg/dL (70-100) 06/26/18 07:14 Calcium 8.1 mg/dL (8.5-10.1) L 06/26/18 07:14 Magnesium 2.4 mg/dL (1.8-2.4) 06/26/18 07:14 Total Bilirubin 0.7 mg/dL (0.2-1.0) 06/25/18 06:25 Conjugated Bilirubin 0.22 mg/dL (0.00-0.20) H 06/25/18 06:25 AST 40 U/L (15-37) H 06/25/18 06:25 ALT 47 U/L (12-78) 06/25/18 06:25 Alkaline Phosphatase 576 U/L (46-116) H 06/25/18 06:25 Troponin I < 0.02 ng/mL (0.00-0.06) 06/09/18 10:30 Total Protein 6.0 g/dL (6.4-8.2) L 06/25/18 06:25 Albumin 1.6 g/dL (3.4-5.0) L 06/25/18 06:25 Lipase 766 U/L (73-393) H 06/13/18 06:10 Urine Color Yellow (Yellow) 06/17/18 11:00 Urine Clarity Clear 06/17/18 11:00 Urine pH 7.5 (5-8) 06/17/18 11:00 Ur Specific [place] 1.015 (1.005-1.025) 06/17/18 11:00 Urine Protein Negative mg/dL (Negative) 06/17/18 11:00 Urine Ketones Negative mg/dL (Negative) 06/17/18 11:00 Urine Blood Trace-lysed (Negative) H 06/17/18 11:00 Urine Nitrite Negative (Negative) 06/17/18 11:00 Urine Bilirubin Negative (Negative) 06/17/18 11:00 Urine Urobilinogen 0.2 EU/dL (Up TO 0.2) 06/17/18 11:00 Ur Leukocyte Esterase Negative (Negative) 06/17/18 11:00 Urine RBC 5-10 (0-2) H 06/17/18 11:00 Urine WBC Negative HPF (0-5) 06/17/18 11:00 Ur Epithelial Cells Negative HPF (Negative) 06/17/18 11:00 Urine Crystals Negative HPF (Negative) 06/17/18 11:00 Urine Bacteria Few HPF (Negative) 06/17/18 11:00 Urine Casts Negative LPF (Negative) 06/17/18 11:00 Urine Mucus Negative (Negative) 06/17/18 11:00 Urine Other Negative (Negative) 06/17/18 11:00 Ur Culture Indicated? No 06/17/18 11:00 Urine Glucose Negative mg/dL (Negative) 06/17/18 11:00 Vancomycin Trough 23.6 ug/mL (10.0-20.0) H* 06/25/18 15:23 Hepatitis A IgM Ab Negative (NEGAT) 06/09/18 11:30 Hep Bs Antigen Negative (NEGAT) 06/09/18 11:30 Hep B Core Total Ab Negative (NEGAT) 06/09/18 11:30 Hepatitis C Antibody Negative (NEGAT) 06/09/18 11:30
[2018-06-26] MEDS: Acetaminophen 325 MG TAB PO (18:09)
[2018-06-26] MEDS: Normal Saline Flush 10 ML SYR 20 ML IVP (20:01)
[2018-06-26] MEDS: Pantoprazole 40 MG TABCR PO (20:02)
[2018-06-26] MEDS: QUEtiapine 25 MG TAB PO (21:26)
[2018-06-27] MEDS: traMADol 50 MG TAB PO (01:25)
[2018-06-27] MEDS: Metoclopramide 10 MG/2 ML VIAL IVP ×4 (01:26→20:06)
[2018-06-27] MEDS: Normal Saline Flush 10 ML SYR IVP ×2 (01:27→14:51)
[2018-06-27] MEDS: DEXTROSE 5%-0.9% SALINE 1,000 ML 75 ML IV ×2 (02:35→19:45)
[2018-06-27 07:24] LABS: Abs Immature Grans 0.14 k/cumm (0.0-0.09); HCT 32.5 % (40.0-50.0); HGB 10.4 g/dL (13.5-17.5); Mean Corpuscular Hemoglobin 32.3 pg (27.0-33.0); Mean Corpuscular Volume 100.9 fL (80-95); Mean Platelet Volume 10.7 fL (8.0-11.0); Platelet Count 584 x1000/uL (130-400); RBC 3.22 m/cumm (4.50-6.00); RBC Distribution Width 12.3 % (11.8-14.1); White Blood Cell Count 6.65 k/cumm (4.4-10.8)
[2018-06-27 07:33] LABS: Anion Gap 7.3 mmol/L (3-11); BUN 4 mg/dL (7-18); CO2 27.7 mmol/L (21.0-32.0); CREATININE 0.94 mg/dL (0.70-1.30); Chloride 108 mmol/L (98-107); Glucose 90 mg/dL (70-100); Magnesium 2.2 mg/dL (1.8-2.4); Potassium 3.2 mmol/L (3.5-5.1); Sodium 143 mmol/L (136-145)
[2018-06-27 07:50] VITALS: BP 144/87; PULSE 84; RESP 16; TEMP 36.1; O2SAT 96
[2018-06-27 08:10] LABS: Absolute Lymphocyte Count 0.47 k/cumm (1.2-3.4); Absolute Monocyte Count 0.53 k/cumm (0.11-0.7); Absolute Neutrophil Count 5.19 k/cumm (1.2-6.7)
[2018-06-27 08:11] LABS: Anisocytosis 1+; Diff Comment Manual Differential; Schistocytes 1+
[2018-06-27] MEDS: Pantoprazole 40 MG TABCR PO ×2 (08:37→20:07)
[2018-06-27] MEDS: Thiamine 100 MG TAB PO (08:38)
[2018-06-27] MEDS: Docusate Sodium 100 MG CAP PO (08:38)
[2018-06-27] MEDS: FLUoxetine 10 MG TAB 30 MG PO (08:38)
[2018-06-27] MEDS: Cetirizine 10 MG TAB PO (08:39)
[2018-06-27] MEDS: Normal Saline Flush 10 ML SYR 20 ML IVP ×2 (08:40→20:06)
[2018-06-27] MEDS: Nicotine 21 MG/24 HR PATCH TD (08:41)
[2018-06-27 09:30] VITALS: O2SAT 96
[2018-06-27] MEDS: Budesonide/Formoterol 160/4.5 6 GM 60 PUFF INH IH ×2 (09:34→20:03)
[2018-06-27] MEDS: Acetaminophen 325 MG TAB PO (11:14)
--- NOTE | 2018-06-27 11:57 | PT.INTREAT ---
Date of service: 06/27/18 Time of Service: 11:57 PT Notes Inpatient Physical Therapy Treatment Note [facility] Date: 06/27/18 PRECAUTIONS: Fall SUBJECTIVE: Iggy reports that he is not feeling well today, he reports feeling down in the dumps. I just want to go home. OBJECTIVE: PAIN: Patient c/o pain in L shoulder area BED MOBILITY/TRANSFERS Supine-sit: I Sit-stand: I Stand-sit: I GAIT Assistive Device: No AD Weight bearing: Full Assist: S Distance: 400' THEREX: Patient refused due to pain in L shoulder STAIRS: Up/down 6x4 and 4x6 using 1 rail and a step-over pattern with supervision. ASSESSMENT: Patient tolerated session well with complaint of pain in L shoulder. He would benefit from continued balance retraining and strengthening for improved activity tolerance. PLAN: Continue with PT's POC TREATMENT CODE/TIME: 15 minutes; ([id number])
[2018-06-27 12:05] VITALS: BP 144/87; PULSE 84; RESP 16; TEMP 36.5; O2SAT 98
[2018-06-27] MEDS: Potassium Chloride 20 MEQ TABCR 40 MEQ PO (12:28)
--- NOTE | 2018-06-27 13:11 | DI.RAD_ITS ---
SYMPTOMS/DIAGNOSIS: F/U ILEUS KUB: There has been an overall decrease in the quantity of gas in the large and small bowel when compared with the prior examination of 06/25. There is, however, a considerable dilatation of what appears to represent a small bowel loop in the left mid abdomen. There is scattered gas throughout the colon and there are otherwise no grossly dilated bowel loops. SUMMARY: Interval improvement with diminished gas in the large and small bowel.
[2018-06-27 16:40] VITALS: BP 149/89; PULSE 79; RESP 17; TEMP 37; O2SAT 97
--- NOTE | 2018-06-27 20:22 | PGE_ITS ---
Date of Service Date of service: 06/27/18 Time of Service: 15:30 Assessment and Plan (1) Ileus: Current visit: Yes Status: Acute Significantly better. Diet advanced to regular consistency. Change reglan to PO and decrease dose. If tolerates this, then can be discharged home tomorrow with follow up with [facility]. *Ileus is likely triggered by acute pancreatitis - Underwent decompression via CScope 06/15, s/p Neostigmine (with cardiac monitoring) with good results. Repeated course on 06/20. No longer on TPN. (2) Intra-abdominal fluid collection: Current visit: No Status: Acute Discussed with surgery. Likely seromas/pseudocysts. Will need outpatient GI follow up. Clinically, the patient has no evidence of peritonitis. (3) Pneumonia: Current visit: Yes Status: Resolved Likely due to aspiration, not present on admission. Abx d/c'ed. (4) Pancreatitis, acute: Current visit: Yes Status: Resolved ?with pancreatic pseudocysts. Tolerating regular consistency diet. Will need outpatient GI follow up. Clinically, no longer acute. Qualifiers: Pancreatitis type: unspecified pancreatitis type Acute pancreatitis complication: no infection or necrosis Qualified Code(s): K85.90 - Acute pancreatitis without necrosis or infection, unspecified (5) Alcohol abuse: Current visit: No Status: Chronic Confusion may in fact be sundowning on top of Wernicke's encephalopathy. Continue thiamine. Continue seroquel. Not withdrawing at this point. Motivated to quit. (6) Melena: Current visit: Yes Status: Resolved Continue PO PPI. Will need an EGD - as H/H is stable, could be done as outpatient. (7) COPD (chronic obstructive pulmonary disease): Current visit: No Status: Chronic At baseline. Continue Home Inhaler therapy with Tiotropium, IGC/LABA. (8) DVT prophylaxis: Current visit: Yes Status: Acute SCDs given GIB. (9) Discharge planning issues: Current visit: Yes Status: Acute Full code Likely discharge home tomorrow. Subjective Interval history since last seen: States he feels much better today. Tolerating regular diet, having BM's and passing flatus. Denies dizziness, chest pain, shortness of breath, nausea, vomiting. Feels he would be ready to go home tomorrow. Exam Narrative Exam Narrative: General: A&Ox3, in a good mood HEENT: EOMI, MMM Heart: RRR, no m/r/g Lungs: clear and diminished breath sounds B GI: abdomen still somewhat distended but better, + bowel sounds, nontender Extremities: 1+ pedal pulses, no edema, clubbing or cyanosis of BLE's Objective Objective Clinical Data: Abnormal lab results 06/27/18 06/27/18 Range/Units 06:30 06:30 RBC 3.22 L (4.50-6.00) m/cumm Hgb 10.4 L (13.5-17.5) g/dL Hct 32.5 L (40.0-50.0) % MCV 100.9 H (80-95) fL Plt Count 584 H (130-400) x1000/uL Absolute Lymphocytes 0.47 L (1.2-3.4) k/cumm Potassium 3.2 L (3.5-5.1) mmol/L Chloride 108 H (98-107) mmol/L BUN 4 L (7-18) mg/dL Calcium 8.0 L (8.5-10.1) mg/dL Vital Signs Temperature 37.0 C 06/27/18 16:40 Temperature Source Tympanic 06/27/18 16:40 Pulse 79 06/27/18 16:40 Pulse Rhythm Regular 06/27/18 07:55 Pulse 97 H 06/25/18 14:00 Respiratory Rate 17 06/27/18 16:40 Respiratory Effort Non-Labored 06/27/18 07:55 Respiratory Depth Normal 06/27/18 07:55 Respiratory Pattern Normal 06/27/18 07:55 Blood Pressure 149/89 H 06/27/18 16:40 Blood Pressure Mean 115 06/25/18 16:00 Blood Pressure Position Supine 06/25/18 16:00 Pulse Oximetry 97 06/27/18 16:40 Oxygen Delivery Method Room Air 06/27/18 16:40 Oxygen Flow Rate 0 06/27/18 16:40 Pain Level 9 06/27/18 11:14 Comment 06/17/18 01:50 Intake & Output 06/26/18 06/27/18 06/27/18 23:59 11:59 23:59 Intake Total 1593.75 / 2645.00 1086.25 / 2566.25 1480 / 2566.25 Output Total 1330 / 1580 750 / 750 Balance 263.75 / 1065.00 336.25 / 1816.25 1480 / 1816.25 Weight 64.8 kg Intake: IV 183.75 / 785.00 596.25 / 1596.25 1000 / 1596.25 Oral 1410 / 1860 490 / 970 480 / 970 Output: Urine 1330 / 1580 750 / 750 Other: Urine Color Yellow Yellow Urine Appearance Clear Clear Urine Odor Normal Normal Comment flushed before viewed by nurse Voiding Methods Urinal Urinal Laboratory Results WBC 6.65 k/cumm (4.4-10.8) 06/27/18 06:30 RBC 3.22 m/cumm (4.50-6.00) L 06/27/18 06:30 Hgb 10.4 g/dL (13.5-17.5) L 06/27/18 06:30 Hct 32.5 % (40.0-50.0) L 06/27/18 06:30 MCV 100.9 fL (80-95) H 06/27/18 06:30 MCH 32.3 pg (27.0-33.0) 06/27/18 06:30 MCHC 32.0 g/dL (32.0-36.0) 06/27/18 06:30 RDW 12.3 % (11.8-14.1) 06/27/18 06:30 Plt Count 584 x1000/uL (130-400) H 06/27/18 06:30 MPV 10.7 fL (8.0-11.0) 06/27/18 06:30 Immature Gran % See Differential 06/27/18 06:30 Neutrophils % 77.0 06/27/18 06:30 Band Neutrophils % 1.0 % 06/27/18 06:30 Lymphocytes % 7.0 06/27/18 06:30 Monocytes % 8.0 06/27/18 06:30 Eosinophils % 3.0 06/27/18 06:30 Basophils % 0.0 06/27/18 06:30 Absolute Neutrophils 5.19 k/cumm (1.2-6.7) 06/27/18 06:30 Band Neutrophils 2.0 % 06/19/18 07:12 Absolute Lymphocytes 0.47 k/cumm (1.2-3.4) L 06/27/18 06:30 Absolute Monocytes 0.53 k/cumm (0.11-0.7) 06/27/18 06:30 Absolute Eosinophils 0.20 k/cumm (0.0-0.7) 06/27/18 06:30 Absolute Basophils 0.00 k/cumm (0.0-0.2) 06/27/18 06:30 Metamyelocytes 2.0 % 06/27/18 06:30 Myelocytes 2.0 % 06/27/18 06:30 Differential Comment Manual differential 06/27/18 06:30 RBC Morphology See below 06/27/18 06:30 Polychromasia Present 06/26/18 07:14 Poikilocytosis 1+ 06/26/18 07:14 Anisocytosis 1+ 06/27/18 06:30 Macrocytosis 1+ 06/21/18 06:10 Stomatocytes 2+ 06/24/18 06:06 Schistocytes 1+ 06/27/18 06:30 PT 9.5 sec (9.3-11.0) 06/10/18 06:25 INR 1.0 (0.9-1.1) 06/10/18 06:25 Sodium 143 mmol/L (136-145) 06/27/18 06:30 Potassium 3.2 mmol/L (3.5-5.1) L 06/27/18 06:30 Chloride 108 mmol/L (98-107) H 06/27/18 06:30 Carbon Dioxide 27.7 mmol/L (21.0-32.0) 06/27/18 06:30 Anion Gap 7.3 mmol/L (3-11) 06/27/18 06:30 BUN 4 mg/dL (7-18) L 06/27/18 06:30 Creatinine 0.94 mg/dL (0.70-1.30) 06/27/18 06:30 Estimated GFR/1.73 m2 >= 60.00 (mL/min/1.73m2) 06/27/18 06:30 Glucose 90 mg/dL (70-100) 06/27/18 06:30 Calcium 8.0 mg/dL (8.5-10.1) L 06/27/18 06:30 Magnesium 2.2 mg/dL (1.8-2.4) 06/27/18 06:30 Total Bilirubin 0.7 mg/dL (0.2-1.0) 06/25/18 06:25 Conjugated Bilirubin 0.22 mg/dL (0.00-0.20) H 06/25/18 06:25 AST 40 U/L (15-37) H 06/25/18 06:25 ALT 47 U/L (12-78) 06/25/18 06:25 Alkaline Phosphatase 576 U/L (46-116) H 06/25/18 06:25 Troponin I < 0.02 ng/mL (0.00-0.06) 06/09/18 10:30 Total Protein 6.0 g/dL (6.4-8.2) L 06/25/18 06:25 Albumin 1.6 g/dL (3.4-5.0) L 06/25/18 06:25 Lipase 766 U/L (73-393) H 06/13/18 06:10 Urine Color Yellow (Yellow) 06/17/18 11:00 Urine Clarity Clear 06/17/18 11:00 Urine pH 7.5 (5-8) 06/17/18 11:00 Ur Specific [place] 1.015 (1.005-1.025) 06/17/18 11:00 Urine Protein Negative mg/dL (Negative) 06/17/18 11:00 Urine Ketones Negative mg/dL (Negative) 06/17/18 11:00 Urine Blood Trace-lysed (Negative) H 06/17/18 11:00 Urine Nitrite Negative (Negative) 06/17/18 11:00 Urine Bilirubin Negative (Negative) 06/17/18 11:00 Urine Urobilinogen 0.2 EU/dL (Up TO 0.2) 06/17/18 11:00 Ur Leukocyte Esterase Negative (Negative) 06/17/18 11:00 Urine RBC 5-10 (0-2) H 06/17/18 11:00 Urine WBC Negative HPF (0-5) 06/17/18 11:00 Ur Epithelial Cells Negative HPF (Negative) 06/17/18 11:00 Urine Crystals Negative HPF (Negative) 06/17/18 11:00 Urine Bacteria Few HPF (Negative) 06/17/18 11:00 Urine Casts Negative LPF (Negative) 06/17/18 11:00 Urine Mucus Negative (Negative) 06/17/18 11:00 Urine Other Negative (Negative) 06/17/18 11:00 Ur Culture Indicated? No 06/17/18 11:00 Urine Glucose Negative mg/dL (Negative) 06/17/18 11:00 Vancomycin Trough 23.6 ug/mL (10.0-20.0) H* 06/25/18 15:23 Hepatitis A IgM Ab Negative (NEGAT) 06/09/18 11:30 Hep Bs Antigen Negative (NEGAT) 06/09/18 11:30 Hep B Core Total Ab Negative (NEGAT) 06/09/18 11:30 Hepatitis C Antibody Negative (NEGAT) 06/09/18 11:30 KUB: Interval improvement with diminished gas in the large and small bowel.
[2018-06-27] MEDS: QUEtiapine 25 MG TAB PO (21:50)
[2018-06-28] VITALS (11 sets, daily range): BP systolic 98–144; BP diastolic 61–100; PULSE 71–105; RESP 18–20; TEMP 36.5–37.4; O2SAT 91–95
[2018-06-28 01:28] LABS: Troponin I < 0.02 ng/mL (0.00-0.06)
--- NOTE | 2018-06-28 01:45 | NUR.NOTE ---
Nursing Note: At 0055 hrs. Pt called staff for sharp chest pain on left side while at rest. Vital signs taken and recorded. learning and development consultant nurse notified MD and EKG, troponin and NTG administered. First one was given at 00:55 hrs and no relief, 2nd NTG SL given at 01:00 and verbalized of pain on comfortable level between 3 to 4. B/P rechecked was 98/61, CA 105, O2 administered at 2L/NC and O2 Sat went up to 91%. Pt placed back to bed and appears comfortable. Continue to monitor. Call lights at reach.
[2018-06-28] MEDS: traMADol 50 MG TAB PO ×2 (04:05→09:05)
[2018-06-28 05:43] LABS: Absolute Basophil Count 0.02 k/cumm (0.0-0.2); Absolute Eosinophil Count 0.12 k/cumm (0.0-0.7); Absolute Lymphocyte Count 0.67 k/cumm (1.2-3.4); Absolute Monocyte Count 0.79 k/cumm (0.11-0.7); Absolute Neutrophil Count 6.63 k/cumm (1.2-6.7); Basophils % 0.2; Eosinophils % 1.4; HCT 32.6 % (40.0-50.0); HGB 10.2 g/dL (13.5-17.5); Immature Grans % 1.2; Mean Corp. HGB Concentration 31.3 g/dL (32.0-36.0); Mean Corpuscular Hemoglobin 31.6 pg (27.0-33.0); Mean Corpuscular Volume 100.9 fL (80-95); Mean Platelet Volume 10.5 fL (8.0-11.0); Monocytes % 9.5; Neutrophils % 79.7; Platelet Count 562 x1000/uL (130-400); RBC 3.23 m/cumm (4.50-6.00); RBC Distribution Width 12.7 % (11.8-14.1); White Blood Cell Count 8.33 k/cumm (4.4-10.8)
[2018-06-28 05:51] LABS: Anion Gap 8.9 mmol/L (3-11); BUN 5 mg/dL (7-18); CO2 28.1 mmol/L (21.0-32.0); CREATININE 0.94 mg/dL (0.70-1.30); Chloride 107 mmol/L (98-107); Glucose 96 mg/dL (70-100); Magnesium 2.3 mg/dL (1.8-2.4); Potassium 3.5 mmol/L (3.5-5.1); Sodium 144 mmol/L (136-145)
[2018-06-28 06:00] LABS: Troponin I < 0.02 ng/mL (0.00-0.06)
[2018-06-28] MEDS: Budesonide/Formoterol 160/4.5 6 GM 60 PUFF INH IH ×2 (08:56→19:33)
[2018-06-28] MEDS: Metoclopramide 10 MG TAB 5 MG PO ×3 (09:01→16:24)
[2018-06-28] MEDS: Docusate Sodium 100 MG CAP PO (09:02)
[2018-06-28] MEDS: FLUoxetine 10 MG TAB 30 MG PO (09:02)
[2018-06-28] MEDS: Cetirizine 10 MG TAB PO (09:03)
[2018-06-28] MEDS: Acetaminophen 325 MG TAB PO (09:03)
[2018-06-28] MEDS: Thiamine 100 MG TAB PO (09:04)
[2018-06-28] MEDS: Pantoprazole 40 MG TABCR PO ×2 (09:04→19:35)
[2018-06-28] MEDS: Nicotine 21 MG/24 HR PATCH TD (09:05)
[2018-06-28] MEDS: Normal Saline Flush 10 ML SYR 20 ML IVP ×2 (09:06→19:36)
--- NOTE | 2018-06-28 10:41 | PT.INDS ---
Date of service: 06/28/18 Time of Service: 08:45 PT Notes [facility] Date: June 28, 2018 PRECAUTIONS:Fall Precautions Treatment Dates: 06/18/18 - 06/28/18 SUBJECTIVE: Iggy states that he is feeling well. He's very excited to be headed back home today. OBJECTIVE: PAIN: LBP- chronic BED MOBILITY/TRANSFERS Rolling L/R: Independent Supine-sit: Independent Sit-supine: Independent Sit-stand: Independent Stand-sit: Independent GAIT Assistive Device: none Weight bearing: Full Assist: supervision Distance: 300 feet (06/28/18); during today's session, he ambulates 100'x2, without assistive device, with SBA, and min A for recovery of single LOB. Deviation: mild ataxia Stairs: Patient able to manage therapeutic stairs 4 x 3, 6 x 2, ascending and descending x 2 with bilat rails and supervision only. Treatment: today's session consisted of re-evaluation, followed by instruction in progressed balance retraining program as noted on flowsheet. Patient tolerated instruction in static and dynamic balance activities, as noted on flowsheet. We reviewed his UE/LE strengthening program, which he is now independent with. He also completed ambulation with supervision as noted above. ASSESSMENT: Patient is a 63 year old male referred to physical therapy services with the diagnosis of deconditioning. He is currently hospitalized for medical management of pancreatitis related to chronic alcoholism, as well as pneumonia and pleural effusion. He has made significant gains in independence and safety, and has now met all rehab goals and is appropriate for d/c from PT services in acute setting. Goals X1 week 1. Supine-Sit : supervision - MET 2. Sit-Supine supervision - MET 3. Sit-Stand supervision with WW - MET 4. Stand-Sit supervision with WW - MET 5. Bed-Chair supervision with WW - MET 6. Chair-Bed supervision with WW - MET 7. Gait supervision with WW x 25' - MET 8. Stairs ascend and descend x 5 steps with bilat rails, supervision MET NEW GOALS: 9. Safe, independent ambulation x 300' without assistive device (met) PLAN: Home, with PT for balance retraining TREATMENT CODE/TIME: 30 minutes ([id number])
[2018-06-28 10:50] LABS: Troponin I < 0.02 ng/mL (0.00-0.06)
--- NOTE | 2018-06-28 11:52 | PGE_ITS ---
Documented by User: Mary Whittaker NP 06/28/18 13:01 Date of Service Date of service: 06/28/18 Time of Service: 12:58 Assessment and Plan (1) Ileus: Current visit: Yes Status: Acute Significantly better. Tolerating regular diet. No nausea and vomiting. Reglan PO Follow up with GI at [facility] [place] *Ileus is likely triggered by acute pancreatitis - Underwent decompression via CScope 06/15, s/p Neostigmine (with cardiac monitoring) with good results. Repeated course on 06/20. No longer on TPN. (2) Pneumonia: Current visit: Yes Status: Resolved Likely due to aspiration, not present on admission. Abx d/c'd. (3) Pancreatitis, acute: Current visit: Yes Status: Resolved ?with pancreatic pseudocysts. Tolerating regular consistency diet. Will need outpatient GI follow up. Clinically, no longer acute. Qualifiers: Acute pancreatitis complication: no infection or necrosis Pancreatitis type: unspecified pancreatitis type Qualified Code(s): K85.90 - Acute pancreatitis without necrosis or infection, unspecified (4) Alcohol abuse: Current visit: No Status: Chronic Confusion may in fact be sundowning on top of Wernicke's encephalopathy. Continue thiamine. Continue seroquel. Not withdrawing at this point. Motivated to quit. (5) Melena: Current visit: Yes Status: Resolved Continue PO PPI. Will need an EGD - as H/H is stable, could be done as outpatient. (6) COPD (chronic obstructive pulmonary disease): Current visit: No Status: Chronic At baseline. Continue Home Inhaler therapy with Tiotropium, IGC/LABA. (7) DVT prophylaxis: Current visit: Yes Status: Acute SCDs given GIB. ambulating with PT and sitting up in chair (8) Discharge planning issues: Current visit: Yes Status: Acute Full code Likely discharge home tomorrow. (9) Chest pain: Current visit: Yes Status: Acute EKG as needed for CP, questionable ACS, angina or pluretic pain. Will run serial troponin and possible stress test, nitro as needed, asa is not appropriate as pt had recent GI bleed and needs to f/u with GI outpatient. Subjective Patient reports: feels better Interval history since last seen: Mr. Urias has a history of of non-oxygen dependent COPD, ETOH abuse, anxiety, and lung cancer s/p radiation. He presented to the ED complaining of shortness of breath and epigastric pain. His lipase was found to be elevated and his imaging showed evidence of acute pancreatitis - he was also noted to have evidence of an ileus by CT of the abdomen with colonic distention without obstruction. He was also noted to have melena by report. The patient has been going through treatment for acute pancreatitis successfully with appropriate decrease in lipase. However due to worsening abdominal pain and distention a repeat CT was obtained showing worsening colonic dilation. He was intolerant of NGT placement and underwent a colonoscopy for decompression on 06/15. Another NGT was put in place, again pulled out by patient. Today appears well when asked how he is doing he states I am ready to go home. Asked patient about chest pain he attributes it to raising his left arm. Explained that we wanted to make sure his heart was healthy before we discharged him. At this point he has no CP, nitro ordered for CP, with EKG prn CP and possible stress. He agrees with the plan. IVF Dcd as patient has been tolerating a regular diet with BM and +flatus. No nausea. Exam Narrative Exam Narrative: laying in bed appears well Const General: cooperative HENMT Head: normal to inspection Eyes General: appearance normal, both eyes and all related structures Visual Harvey: normal visual harvey by confrontation Neck Neck: normal visual inspection Lymphatic: no lymphadenopathy noted and no lymphedema noted Chest Chest: normal inspection of the chest Resp Effort & Inspection: normal respiratory effort Auscultation: clear to auscultation bilaterally Cardio Jugular venous pressure: no JVD Palpation: normal PMI Rate: regular rate Heart Sounds: S1 normal and S2 normal GI Inspection: normal to inspection Palpation: soft Auscultation: normal bowel sounds Extrem General: normal to inspection Psych Appearance: grossly normal Documented by User: Natali Hopper MD 06/28/18 19:17
[2018-06-28 14:55] LABS: Troponin I < 0.02 ng/mL (0.00-0.06)
--- NOTE | 2018-06-28 15:03 | PDOC.CMPRO ---
- If Service Date Differs Date of service: 06/28/18 Time of Service: 15:04 Care Management Progress Note S/O: Iggy is lying in bed when this caption writer visits this morning. He states that he is feeling good and hoping to DC home soon. Iggy states that he had some chest pain last night and was started on telemetry monitoring today. Iggy states that he feels as though this was a muscle strain. Discussed DC plans with Iggy, and AA meetings which he states have not worked for him in the past, and that he only wants to attend his therapy sessions with Brando Dobson. A: 63 yo male admitted for pancreatitis and alcoholism remains at ICU level of care P: Unchanged discharge plan. Return home with mother, Vee, at their [facility]. No services anticipated at this time. Follow up with Ricardo and his therapist, Brando Dobson. Family will transport when medically cleared for discharge..
[2018-06-28 20:40] LABS: Troponin I < 0.02 ng/mL (0.00-0.06)
[2018-06-28] MEDS: QUEtiapine 25 MG TAB PO (21:14)
[2018-06-29 00:32] VITALS: BP 124/80; PULSE 92; RESP 18; TEMP 37.2; O2SAT 93
[2018-06-29 02:32] LABS: Troponin I < 0.02 ng/mL (0.00-0.06)
[2018-06-29 04:43] VITALS: BP 145/102; PULSE 99; RESP 16; TEMP 37.2; O2SAT 95
[2018-06-29 06:59] VITALS: PULSE 89
[2018-06-29] MEDS: Pantoprazole 40 MG TABCR PO (07:24)
[2018-06-29] MEDS: Metoclopramide 10 MG TAB 5 MG PO ×2 (07:24→17:26)
[2018-06-29 07:31] LABS: HCT 34.3 % (40.0-50.0); Mean Corp. HGB Concentration 32.1 g/dL (32.0-36.0); Mean Corpuscular Hemoglobin 32.4 pg (27.0-33.0); Mean Corpuscular Volume 100.9 fL (80-95); Mean Platelet Volume 10.3 fL (8.0-11.0); Platelet Count 594 x1000/uL (130-400); RBC Distribution Width 12.6 % (11.8-14.1); White Blood Cell Count 6.85 k/cumm (4.4-10.8)
[2018-06-29 07:44] VITALS: BP 129/84; PULSE 91; RESP 18; TEMP 36.8; O2SAT 95
[2018-06-29 07:47] LABS: BUN 8 mg/dL (7-18); CREATININE 0.99 mg/dL (0.70-1.30); Calcium 8.1 mg/dL (8.5-10.1); Chloride 108 mmol/L (98-107); Cholesterol 122 mg/dL (50-200); Glucose 88 mg/dL (70-100); HDL Cholesterol 29 mg/dL (40-60); LDL CHOLESTEROL 80 mg/dL (<100); Magnesium 2.3 mg/dL (1.8-2.4); Potassium 3.6 mmol/L (3.5-5.1); Sodium 143 mmol/L (136-145); Triglyceride 95 mg/dL (30-150)
[2018-06-29] MEDS: Nicotine 21 MG/24 HR PATCH TD (09:14)
[2018-06-29] MEDS: Normal Saline Flush 10 ML SYR 20 ML IVP (09:16)
[2018-06-29] MEDS: Budesonide/Formoterol 160/4.5 6 GM 60 PUFF INH IH (10:26)
--- NOTE | 2018-06-29 11:00 | MERGEMPI_ITS ---
*[facility]* *[facility]* [address] [place] [address] Myocardial Perfusion Imaging - SPECT Regadenoson Date of study: 06/29/2018 *PATIENT PRESENTATION* Height: 172.7cm (68in) Blood Pressure: Weight: 64.9kg (142.7lb) BSA: 1.76m^2 Referring physician: Thomas Garcia Ordering physician: Mary Whittaker Impressions: Normal study after pharmacologic stress. Summary: 1. Myocardial perfusion imaging: No myocardial perfusion defects noted. Inferior defect seen on unattenuated images likely due to diaphragmatic attenuation. 2. The calculated left ventricular ejection fraction after stress: 66%. LV global systolic function is normal. No left ventricular regional motion abnormality. Indication: R07.9. History: REASON FOR VISIT: INPATIENT HERE FOR PANCREATITIS RELATED TO ALCOHOLISM. HAVING INTERMITTENT EPISODES OF CHEST PAIN. PMH: COPD. Risk factors: Family history of coronary artery disease. Cholesterol: 122mg/dl. HDL: 29mg/dl. LDL: 80mg/dl. Triglycerides: 95mg/dl. ALLERGIES: NO KNOWN ALLERGIES. MEDICATIONS: ALBUTEROAL SULFATE MDI Q 4 HRS PRN. AZITHROMYCIN 500 MG TODAY, THEN 250 MG X4 DAYS. CETIRIZINE 10 MG DAILY. DOCASATE SODIUM 100 MG DAILY. FLUOXETINE 30 MG DAILY. PROAIR HFA 2 PUFFS PRN. RANITIDINE 150 MG TWICE A DAY. SPIRIVA 1 CAP INHALATION DAILY. SYMBICORT TWICE A DAY. THIAMINE HCL 100 MG DAILY. Imaging Technique: Protocol: Aggregate Knowledgeoson. Acquisition: Gated SPECT; 1 day - rest/stress. The patient was imaged in the supine position. Attenuation correction used. Isotope administration: - Rest. Tc[99m]-sestamibi. Dose: 9.9mCi. Injection time: 10:30 AM. Injection to stress time: 00:45. - Stress. Tc[99m]-sestamibi. Dose: 30.1mCi. Injection time: 12:50 PM. 1-2 min before end of exercise Stress protocol: +--------+---+ + + !Stage !HR !BP (mmHg) !Comments ! +--------+---+ + + !Baseline!88 !132/82 (99) ! ! +--------+---+ + + !1 min !108!142/80 (101)!Inject Regadenoson.! +--------+---+ + + !3 min !119!132/78 (96) ! ! +--------+---+ + + !6 min !113!142/82 (102)! ! +--------+---+ + + !9 min !110!138/88 (105)! ! +--------+---+ + + * Stress results: STRESS TEST ENDED IN 9 MINUTES & 7 SECONDS. PT EXPERIENCED NO SIGNIFICANT SIDE EFFECTS FROM LEXISCAN INJECTION. NORMAL HEART RATE AND BLOOD PRESSURE RESPONSE TO LEXISCAN INJECTION RARE PVC NO ANGINA NO SIGNIFICANT ST SEGMENT CHANGES. The rate-pressure product for the peak heart rate and blood pressure was 98863kc Hg/min. Myocardial perfusion: Imaging information: gated. Left ventricular size is normal. No myocardial perfusion defects noted. Inferior defect seen on unattenuated images likely due to diaphragmatic attenuation. Ventricular Function (Wall Motion): The calculated left ventricular ejection fraction after stress: 66%. LV global systolic function is normal. No left ventricular regional motion abnormality. Study data: Thomas Garcia MD supervised and was readily available during the procedure. This study was interpreted by [facility]. Study status: Routine. Consent: The risks, benefits, and alternatives to the procedure were explained to the patient and informed consent was obtained. Procedure: Initial setup. A baseline ECG was recorded. Surface ECG leads and manual cuff blood pressure measurements were monitored. Heart sounds: Normal. Lung sounds: Normal. Regadenoson stress test. Stress testing was performed, with regadenoson by intravenous bolus, for a total dose of 0.4mgover 10.00sec, followed by a 5ml saline flush. The infusion was terminated due to per protocol. Study completion: All catheters inserted during the procedure were removed. The patient tolerated the procedure well and was discharged from the lab. Discharge: The patient left the laboratory in stable condition. Birthdate: Patient birthdate: 1955. Sex: Gender: male. Study date: Study date: 06/29/2018. Study time: 12:30 PM. Signature Documentation: - The imaging portion of this study was interpreted by Nuclear Senior Staff Consultant Thomas Garcia MD. - The imaging portion of this study was interpreted by Nuclear Radiologist Daren Stephens MD. - The Stress ECG portion of this study was interpreted by Thomas Garcia MD. Electronically signed by Thomas Garcia 06/29/2018 14:55
[2018-06-29] MEDS: FLUoxetine 10 MG TAB 30 MG PO (14:12)
[2018-06-29] MEDS: Thiamine 100 MG TAB PO (14:13)
[2018-06-29] MEDS: Cetirizine 10 MG TAB PO (14:13)
[2018-06-29] MEDS: Docusate Sodium 100 MG CAP PO (14:13)
[2018-06-29] MEDS: Acetaminophen 325 MG TAB PO (14:19)
--- NOTE | 2018-06-29 14:20 | PDOC.CMPRO ---
- If Service Date Differs Date of service: 06/29/18 Time of Service: 14:20 Care Management Progress Note S/O: Iggy is lying in bed when this keno writer / runner visits this morning, he is pleasant and open to discussion. Iggy states that he is hopeful that he will be able to DC home today, and states that he has a stress test this afternoon. Iggy states that his family will most likely not be in today, unless he is discharged and they will transport him home. A: 63 yo male admitted for pancreatitis and alcoholism remains at ICU level of care P: Unchanged discharge plan. Return home with mother, Vee, at their [facility]. No services anticipated at this time. Follow up with Ricardo and his therapist, Brando Dobson. Family will transport when medically cleared for discharge..
[2018-06-29 16:06] VITALS: BP 142/72; PULSE 94; RESP 18; TEMP 36.6; O2SAT 94
--- NOTE | 2018-07-13 22:43 | DSE_ITS ---
Date of service: 06/29/18 Time of Service: 12:00 DS: Diagnosis Discharge Diagnosis (1) Intra-abdominal fluid collection: Status: Acute (2) Pneumonia: Status: Resolved (3) Thrush: Status: Acute (4) Colon distention: Status: Acute (5) Ileus: Status: Acute (6) Pancreatitis, acute: Status: Resolved (7) Near syncope: Status: Acute (8) Melena: Status: Resolved (9) Epigastric pain: Status: Acute Discharge Plan Disposition Patient Disposition: HOME Condition: Serious Discharge Details Reason For Visit: PANCREATITIS, ALCOHOLISM Admit Date/Time: 06/09/18 14:02 Admit Provider: Natali Hopper Attending Provider: Natali Hopper Primary Care Provider: Deborah Chow Hospital Course Hospital Course: Mr Urias is a 63 year old male with PMHx of alcohol abuse, non-oxygen requiring COPD, anxiety disorder and h/o R lung cancer who was admitted to [facility] ICU on 06/09/18 with melena, symptomatic anemia, mild acute exacerbation of COPD and alcoholic pancreatitis. He was made NPO, placed IV PPI, and a surgical consultation was obtained. It was felt that he will eventually need an EGD, but this was felt to be less urgent as the patient was not actively losing blood and the pancreatitis was rather acute. He did not require any blood transfusion for the duration of the hospitalization. As far as pancreatitis, he had a rather protracted course with development of significant gaseous distention and ileus, requiring a decompressive colonoscopy by Dr Vásquez/Dr Leach on 06/15/18, with some improvement. He required 2 doses of neostigmine and a course of reglan to help relieve the ileus as he had d ifficulty tolerating an NG tube. He did require TPN during his admission as he could not tolerate PO with the degree of his ileus and pancreatitis. He did go through DT's on this admission, without any seizures, and this has resolved. A part of his encephalopathy (confusion mainly at night) is now thought to be more permanent, as in alcohol dementia/Wernicke's, and he is doing rather well with a small dose of seroquel. He also developed an aspiration pneumonia, requiring IV antibiotics for treatment, likely due to pulling out of an NG tube. The patient had to be transferred back and forth to the ICU several times on this admission due to his waxing and waning course. The patient did have a work up of his dizziness with an ultrasound of his carotids and an echocardiogram. He also had a negative stress test for chest pain reported to us on the day prior to discharge. At this point, he is pain free, tolerating regular consistency diet. He is ready for discharge. He will need to follow up with outpatient GI or general surgeon for an EGD. Home Meds and New Rx's Prescriptions: New nicotine 21 mg/24 hr Patch 24 Hour 21 mg Transdermal DAILY Qty: 30 RF: 0 Continued Symbicort 10.2 GM HFA aerosol inhaler 10.2 gm Inhalation BID Qty: 3 RF: 3 docusate sodium [Colace] 100 MG capsule 100 mg PO DAILY 60 Days Qty: 60 RF: 2 Hold Instructions: None Spiriva with HandiHaler 30 CAP/INH capsule, w/inhalation device 1 cap Inhalation DAILY RF: 0 OptiChamber Advantage 1 EACH spacer 1 ea Miscellaneous DIRECTED RF: 0 albuterol sulfate 2.5 MG/3 ML solution for nebulization 2.5 mg Inhalation Q4H PRN PRN (Reason: Shortness Of Breath) 30 Days RF: 0 Discontinued azithromycin 250 mg tablet See Rx Instructions .ROUTE .COMPLEX Qty: 6 RF: 0 No Action quetiapine 25 mg tablet 25 mg PO QHS Qty: 90 RF: 0 pantoprazole 40 mg tablet,delayed release (DR/EC) 40 mg PO DAILY Qty: 90 RF: 3 cetirizine 10 mg capsule 10 mg PO DAILY RF: 0 ProAir HFA 90 mcg/actuation HFA aerosol inhaler 2 puff Inhalation Q4H PRN PRN (Reason: Shortness Of Breath) Qty: 1 RF: 1 multivitamin tablet 1 tab PO QAM Qty: 90 RF: 3 thiamine HCl (vitamin B1) 100 mg tablet 100 mg PO DAILY Qty: 90 RF: 3 Discharge Instructions Instructions: Pancreatitis (DC), COPD (Chronic Obstructive Pulmonary Disease) (DC), Abuse of Alcohol (DC) Additional Instructions: Return to the hospital with any worsening symptoms, such as abdominal pain, black stools/blood in stool, fever, chest pain, or shortness of breath. You must stop drinking! Follow up with [facility] for an EGD. Stand Alone Forms: Nursing Discharge Form Referrals: GASTROENTEROLOGY,[facility] [OTHER] - Deborah Chow MD [Primary Care Provider] - 07/11/18 1:30 pm Activity:: Activity as Tolerated Equipment/Supplies:: No Equipment Needed Diet:: As Tolerated Discharge Orders Discharge Orders: Discharge Order (Routine); Ordered 06/29/18 Ordered By: Natali Hopper Discharge Data Discharge Date/Time-TO BE ENTERED AT DEPARTURE: 06/29/18 18:00 Exam Narrative Exam Narrative: General: A&Ox3, in a good mood, NAD HEENT: EOMI, MMM Heart: RRR, no m/r/g Lungs: clear and diminished breath sounds B GI: abdomen still somewhat distended but better, + bowel sounds, nontender Extremities: 1+ pedal pulses, no edema, clubbing or cyanosis of BLE's DS: Data Vitals/I&O Vitals and I&O: Vital Signs Temperature 36.6 C 06/29/18 16:06 Temperature Source Tympanic 06/29/18 16:06 Pulse 94 H 06/29/18 16:06 Pulse Rhythm Regular 06/29/18 07:31 Pulse 97 H 06/25/18 14:00 Respiratory Rate 18 06/29/18 16:06 Respiratory Effort Non-Labored 06/29/18 07:31 Respiratory Depth Normal 06/29/18 07:31 Respiratory Pattern Normal 06/29/18 07:31 Blood Pressure 142/72 H 06/29/18 16:06 Blood Pressure Mean 115 06/25/18 16:00 Blood Pressure Position Supine 06/25/18 16:00 Pulse Oximetry 94 L 06/29/18 16:06 Oxygen Delivery Method Room Air 06/29/18 16:06 Oxygen Flow Rate 0 06/29/18 16:06 Pain Level 7 06/29/18 14:19 Comment 06/17/18 01:50 Intake & Output 06/28/18 06/29/18 06/29/18 23:59 11:59 23:59 Intake Total 360 / 1620 60 / 60 Output Total 500 / 1300 650 / 850 200 / 850 Balance -140 / 320 -590 / -790 -200 / -790 Weight 65.6 kg Intake: IV 60 / 60 Oral 360 / 600 Output: Urine 500 / 1300 650 / 850 200 / 850 Other: Urine Color Yellow Yellow Yellow Urine Appearance Clear Clear Clear Comment void x 1 in toilet Stool Size Moderate Stool Characteristics Soft Liquid Voiding Methods Toilet Urinal Completed studies during hospitalization [Text1]: CT abdomen/pelvis 06/09/18: 1. No evidence of an acute abdomen. 2. Question of mild thickening of the wall of the urinary bladder. This may represent a cystitis. 3. Lucencies seen in the bones. Diffuse infiltrative process cannot be excluded. Please correlate clinically. Xr abdomen 06/11/18: Mildly dilated loops of bowel, particularly in the right lower quadrant. Partial obstruction cannot be excluded. Alternatively, this may represent an ileus. Followup is recommended. This may include serial KUB or CT scan of the abdomen and pelvis. US carotid 06/11/18: No evidence of hemodynamically significant cervical carotid artery stenosis. CT abdomen/pelvis 06/11/18: 1. Interval development of colonic distention without definite evidence for mechanical obstruction. No perforation is seen. Follow- up examination is recommended. Serial KUBs are suggested. 2. Interval development of bilateral pleural effusions with subjacent infiltrates, which may represent atelectasis or pneumonia. 3. Inflammatory changes seen around the pancreas raising the question of acute pancreatitis. US abdomen 06/12/18: 1. Limited examination due to overlying bowel. 2. No evidence of cholelithiasis or biliary ductal dilatation. 3. Hepatic steatosis. 4. Mild abdominal ascites and small left pleural effusion. Echo 06/12/18: 1. Left ventricle: The cavity size was normal. Wall thickness was normal. Systolic function was hyperdynamic. The estimated ejection fraction was 65-70%. There was no dynamic obstruction. Wall motion was normal; there were no regional wall motion abnormalities. 2. Right ventricle: The cavity size was normal. Wall thickness was normal. Systolic function was normal. 3. Pulmonary arteries: Pulmonary systolic pressure was mildly increased, in the range of 35mm Hg to 40mm Hg. CXR 06/14/18: Interval increase in bilateral pleural effusions. Bibasilar atelectasis vs infiltrates. XR flat/upright 06/14/18:Increased distention of the colon compared with the previous exam. CT abdomen/pelvis 06/14/18; Further increase in dilatation of the ascending and transverse colon. The descending and rectosigmoid are not abnormally distended. There is no focal transition point or evidence of wall thickening. There is also now dilatation of distal small bowel. Bilateral pleural effusions and body wall edema have increased. KUB 06/15/18: Significant improvement in colonic distension. CXR 06/17/18: Limited exam, pulmonary inflation. Satisfactory placement of PICC line. Increased bilateral pleural effusions. XR abdomen 06/23/18: 1. Interval removal of the nasogastric tube. 2. Interval increase of the bowel dilatation since 06/15/18. Worsening ileus versus development of a partial small bowel obstruction should be considered. 3. Question of thickening of the wall of a loop of bowel seen in the left abdomen. CXR 06/23/18: Overall improvement in the appearance of the chest since 06/17/18. Small residual infiltrates remain in the right perihilar region and the left lung base. There is a persistent but small left pleural effusion. XR abdomen 06/24/18: No improvement of the dilated loops of bowel within the abdomen. The findings may represent ileus or bowel obstruction. CT abdomen/pelvis 06/24/18: 1. Significantly dilated loops of small bowel. The transition appears to lie in the right lower quadrant. Small bowel obstruction is suspected. Ileus cannot be excluded. 2. Multiple loculated fluid collections seen in the peripancreatic region as described above. Differential considerations include abscesses, seromas, pancreatic pseudocysts or possible hematomas. Since the prior examination, the fluid collections appear to have become loculated and increased in size. 3. Bilateral pleural effusions which are moderate. There has been interval decrease in the size of the left pleural effusion. 4. Bilateral basilar infiltrates which may represent atelectasis or pneumonia. 5. Gallbladder abnormalities as described above which may reflect acute cholecystitis. CXR 06/24/18: Bilateral pulmonary opacities which may represent atelectasis or pneumonia. Small left pleural effusion. XR chest/abdomen 06/25/18: . Stable small pleural effusions. 2. Stable right perihilar infiltrate, improvement in the left basilar infiltrate. Stable bowel dilatation. The findings are consistent with a stable ileus or stable bowel obstruction. XR abdomen 06/27/18: Interval improvement with diminished gas in the large and small bowel. Nuclear stress test 06/29/18: 1. Myocardial perfusion imaging: No myocardial perfusion defects noted. Inferior defect seen on unattenuated images likely due to diaphragmatic attenuation. 2. The calculated left ventricular ejection fraction after stress: 66%. LV global systolic function is normal. No left ventricular regional motion abnormality. Labs on day of discharge: Labs from last 24 hours 06/29/18 06/29/18 06/29/18 20:15 14:15 08:15 WBC RBC Hgb Hct MCV MCH MCHC RDW Plt Count MPV Sodium Potassium Chloride Carbon Dioxide Anion Gap BUN Creatinine Estimated GFR/1.73 m2 Glucose Calcium Magnesium Troponin I Cancelled Cancelled Cancelled Triglycerides Total Cholesterol LDL Cholesterol Direct HDL Cholesterol 06/29/18 06/29/18 06/29/18 07:00 07:00 02:10 WBC 6.85 RBC 3.40 L Hgb 11.0 L Hct 34.3 L MCV 100.9 H MCH 32.4 MCHC 32.1 RDW 12.6 Plt Count 594 H MPV 10.3 Sodium 143 Potassium 3.6 Chloride 108 H Carbon Dioxide 25.0 Anion Gap 10.0 BUN 8 Creatinine 0.99 Estimated GFR/1.73 m2 >= 60.00 Glucose 88 Calcium 8.1 L Magnesium 2.3 Troponin I < 0.02 Triglycerides 95 Total Cholesterol 122 LDL Cholesterol Direct 80 HDL Cholesterol 29 L 06/28/18 20:00 WBC RBC Hgb Hct MCV MCH MCHC RDW Plt Count MPV Sodium Potassium Chloride Carbon Dioxide Anion Gap BUN Creatinine Estimated GFR/1.73 m2 Glucose Calcium Magnesium Troponin I < 0.02 Triglycerides Total Cholesterol LDL Cholesterol Direct HDL Cholesterol [facility] Medical History COPD (chronic obstructive pulmonary disease) (Chronic) Adjustment disorder with anxiety (Acute) Dyspepsia (Acute) Malignant neoplasm of right lung (Acute) Tubular adenoma of colon (Acute) Alcohol abuse (Chronic) Anxiety (Chronic) Surgical History History of lung biopsy (Resolved) History of surgery on upper extremity (Resolved) colonoscopy (01/19/15) Family History Father Essential hypertension Hyperlipidemia Paternal Uncle Heart disease Stroke Cerebral hemorrhage Hypertension Brother Cancer Social History adopted: No foster care: No household members: family housing: house lives independently: No (lives with parents and needs their emotional support) current occupational status: unemployed current occupation: not working what type of physical activity do you participate in: none Smoking and Tabacco status: Former Tobacco Use alcohol intake: former substance use type: does not use Seatbelt use: always Drives intoxicated or rides with intoxicated 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
== END 2018-06-29 18:00 | disposition home or self-care (01) | DRG 377 ==
LOC: ER 14:38 → ICU 15:44 → MS 06-13 15:48 → ICU 06-14 15:55 → MS 06-25 19:40
PROVIDERS: Internal Medicine; Nurse Practitioner Family; Surgery; Admitting Provider Internal Medicine; Emergency Provider Student in an Organized Health Care Education/Training Program; PCP Internal Medicine; Visit Provider Internal Medicine
PROC: 0DJD8ZZ Inspection of Lower Intestinal Tract, Via Natural or Artificial Opening Endoscopic (ICD-10-PCS; CPT 45378; principal; 2018-06-15 12:15)
DX: K29.21 Alcoholic gastritis with bleeding (principal); K85.20 Alcohol induced acute pancreatitis without necrosis or infection; J69.0 Pneumonitis due to inhalation of food and vomit; K56.7 Ileus, unspecified; J90 Pleural effusion, not elsewhere classified; R18.8 Other ascites; B37.0 Candidal stomatitis; F10.231 Alcohol dependence with withdrawal delirium; E51.2 Wernicke's encephalopathy; F05 Delirium due to known physiological condition; K86.3 Pseudocyst of pancreas; F17.213 Nicotine dependence, cigarettes, with withdrawal; K92.1 Melena; R10.13 Epigastric pain; R55 Syncope and collapse; J44.9 Chronic obstructive pulmonary disease, unspecified; R07.9 Chest pain, unspecified; F41.9 Anxiety disorder, unspecified; K63.89 Other specified diseases of intestine; Z91.19 Patient's noncompliance with other medical treatment and regimen; Z73.89 Other problems related to life management difficulty
CPT/HCPCS: 45393; 36410; 36415; 36569; 36592; 78452; 80048; 80053; 80061; 80076; 83690; 83721; 85027; 86704; 86709; 86803; 87040; 87340; 94640; 96361; 96374; 97110; 97112; 97163; 97530; 99223; 99231; 99232; 99233; 99239; 99252; 99253; 99285; 71045; 71046; 74018; 74019; 74022; 74177; 76700; 80202; 81003; 81015; 83735; 84484; 85025; 85610; 87070; 87086; 87205; 87324; 93005; 93010; 93017; 93306; 93880; J0456; J1450; J1885; J1941; J2060; J2270; J2405; J2543; J2710; J2765; J2785; J2997; J3480; J3490; J7042; J7613

== ENCOUNTER 2018-07-03 10:54 | Emergency (ER) | payer MEDICAID, SELFPAY ==
[2018-07-03 10:57] VITALS: BP 144/93; PULSE 102; RESP 20; TEMP 36.6; O2SAT 94
--- NOTE | 2018-07-03 11:08 | W.ED.GENAD ---
Discharge Plan Disposition Patient Disposition: HOME Condition: Improving Discharge Details Chief Complaint: Abd Prob Clinical Impression: Abdominal pain, Chronic pancreatitis, Umbilical hernia Primary Care Provider: Deborah Chow ED Provider: Alison Resendiz Home Meds and New Rx's Prescriptions: Continued cetirizine 10 mg capsule 10 mg PO DAILY RF: 0 ProAir HFA 90 mcg/actuation HFA aerosol inhaler 2 puff Inhalation Q4H PRN PRN (Reason: Shortness Of Breath) Qty: 1 RF: 1 multivitamin tablet 1 tab PO QAM Qty: 90 RF: 3 thiamine HCl (vitamin B1) 100 mg tablet 100 mg PO DAILY Qty: 90 RF: 3 Symbicort 10.2 GM HFA aerosol inhaler 10.2 gm Inhalation BID Qty: 3 RF: 3 ranitidine HCl 150 MG tablet 150 mg PO BID Qty: 180 RF: 3 fluoxetine 10 MG capsule 30 mg PO DAILY Qty: 90 RF: 3 docusate sodium [Colace] 100 MG capsule 100 mg PO DAILY 60 Days Qty: 60 RF: 2 Spiriva with HandiHaler 30 CAP/INH capsule, w/inhalation device 1 cap Inhalation DAILY RF: 0 OptiChamber Advantage 1 EACH spacer 1 ea Miscellaneous DIRECTED RF: 0 albuterol sulfate 2.5 MG/3 ML solution for nebulization 2.5 mg Inhalation Q4H PRN PRN (Reason: Shortness Of Breath) 30 Days RF: 0 pantoprazole 40 mg Tablet,Delayed Release (Dr/Ec) 40 mg PO BID@0730,2000 Qty: 60 RF: 0 nicotine 21 mg/24 hr Patch 24 Hour 21 mg Transdermal DAILY Qty: 30 RF: 0 Discharge Instructions Instructions: Pancreatitis (ED), Umbilical Hernia (ED), Abdominal Pain (ED) Additional Instructions: Return to the hospital laboratory tomorrow to obtain a repeat blood test (LIPASE). Bring your lab slip order with you to the laboratory. Follow-up with general surgery for reevaluation of your hernia if your symptoms do not improve or worsen. Return immediately to the emergency department with any acute worsening or new concerning symptoms. Referrals: Fahad HERNANDEZ,Haresh Lovett DO [OSTEOPATHIC DOCTOR] - Discharge Data Discharge Date/Time-TO BE ENTERED AT DEPARTURE: 07/03/18 16:22 Discharge Physician: Alison Resendiz Medical Decision Making 63-year-old male with a history of pancreatitis, alcohol abuse, COPD, lung cancer with recent hospital admission for acute pancreatitis with ileus who presents for lower abdominal pain since this morning. No fever, nausea, vomiting. Patient denies any alcohol use since prior to last admission. Normal heart rate on my evaluation. No fever. Patient appears nontoxic and in no acute distress. He has minimal suprapubic and right lower quadrant tenderness. No epigastric or left upper quadrant tenderness. Based on patient's recent hospital admission and his history, labs and CT abdomen ordered in addition to IV fluids. Labs and imaging reviewed. AST and ALT normal. Alk phos 236. Lipase 1708. Last check lipase this month was 766. Patient had gone as high as 12,000 during his hospital admission recently. CT abdomen and pelvis overall significantly improved from previous CAT scan. His pancreatic collections are subsequently smaller, no dilatation, and no evidence of pneumonia. In the setting of an elevated lipase, would suspect pancreatitis, however patient denies any recent alcohol use since before his recent hospital admission, he has no fever, normal vital signs, no white blood cell count and an overall improving CAT scan. Results were discussed with surgery who had evaluated patient and suspected he had a umbilical hernia which reduced prior to his evaluation. Upon my reassessment, pt has no abdominal pain or tenderness. Discussed patient with both surgery and hospitalist who know patient based on recent hospital admission, and overall we suspect this is likely a chronic pancreatitis. Recommend a repeat lipase tomorrow for reassessment. Pt was given tylenol and denies any pain at this time. Patient states he feels hungry and is requesting to go home. Patient instructed to return to the hospital tomorrow for a repeat lipase. A lab slip order was given. Patient was instructed to return here immediately with any concerns and otherwise follow-up with surgery for reevaluation. Medical Records Medical records reviewed: Yes I reviewed the patient's medical records. Imaging Data Radiologic Study: Radiologist's impression: ABDOMEN AND PELVIC CT: Comparison is made with 06/24/18. Images were performed from the lung bases through the ischial tuberosities after IV and without oral contrast. There has been interval decrease in size of the bilateral pleural effusions and bibasilar infiltrates versus atelectasis. The effusions are now small and the atelectasis is minimal. There has been resolution of the previously noted small bowel dilatation. The previously noted loculated collections around the pancreas have substantially decreased in size. Some loculated collections remain present. The more superior collection at the level of the celiac axis measures 4 cm. transverse. The loculated collections more inferiorly beneath the level of the pancreas and medial to the head of the pancreas have decreased. The appendix appears normal. A small amount of fluid remains present around the gallbladder. The liver, spleen, kidneys and adrenals are unremarkable. The pancreas does not appear edematous. The bladder and prostate are unremarkable. IMPRESSION: Significant improvement in bowel dilatation as well as size of loculated peripancreatic collections. There has also been significant improvement in bilateral pleural effusions and bibasilar atelectasis. Lab Data Lab results reviewed: Yes I reviewed the patient's lab results. Laboratory Tests Range/Units 07/03/18 07/03/18 07/03/18 11:15 11:15 11:15 WBC (4.4-10.8) k/cumm 5.87 RBC (4.50-6.00) m/cumm 3.99 L Hgb (13.5-17.5) g/dL 12.8 L Hct (40.0-50.0) % 39.0 L MCV (80-95) fL 97.7 H MCH (27.0-33.0) pg 32.1 MCHC (32.0-36.0) g/dL 32.8 RDW (11.8-14.1) % 12.3 Plt Count (130-400) x1000/uL 561 H MPV (8.0-11.0) fL 9.9 Immature Gran % 1.0 Neutrophils % 71.1 Lymphocytes % 12.6 Monocytes % 12.9 Eosinophils % 1.9 Basophils % 0.5 Absolute Neutrophils (1.2-6.7) k/cumm 4.17 Absolute Lymphocytes (1.2-3.4) k/cumm 0.74 L Absolute Monocytes (0.11-0.7) k/cumm 0.76 H Absolute Eosinophils (0.0-0.7) k/cumm 0.11 Absolute Basophils (0.0-0.2) k/cumm 0.03 PT (9.3-11.0) sec 10.0 INR (0.9-1.1) 1.0 APTT (21.0-31.4) sec 23.0 Sodium (136-145) mmol/L 141 Potassium (3.5-5.1) mmol/L 3.5 Chloride (98-107) mmol/L 100 Carbon Dioxide (21.0-32.0) mmol/L 30.9 Anion Gap (3-11) mmol/L 10.1 BUN (7-18) mg/dL 10 Creatinine (0.70-1.30) mg/dL 1.04 Estimated GFR/1.73 m2 (mL/min/1.73m2) >= 60.00 Glucose (70-100) mg/dL 98 Calcium (8.5-10.1) mg/dL 8.6 Total Bilirubin (0.2-1.0) mg/dL 0.4 AST (15-37) U/L 28 ALT (12-78) U/L 30 Alkaline Phosphatase (46-116) U/L 236 H Total Protein (6.4-8.2) g/dL 8.1 Albumin (3.4-5.0) g/dL 2.9 L Lipase (73-393) U/L 1708 H Urine Color (Yellow) Urine Clarity Urine pH (5-8) Ur Specific Montgomery (1.005-1.025) Urine Protein (Negative) mg/dL Urine Ketones (Negative) mg/dL Urine Blood (Negative) Urine Nitrite (Negative) Urine Bilirubin (Negative) Urine Urobilinogen (Up TO 0.2) EU/dL Ur Leukocyte Esterase (Negative) Urine RBC (0-2) Urine WBC (0-5) HPF Ur Epithelial Cells (Negative) HPF Urine Crystals (Negative) HPF Urine Bacteria (Negative) HPF Urine Casts (Negative) LPF Urine Mucus (Negative) Urine Other (Negative) Ur Culture Indicated? Urine Glucose (Negative) mg/dL Range/Units 07/03/18 11:30 WBC (4.4-10.8) k/cumm RBC (4.50-6.00) m/cumm Hgb (13.5-17.5) g/dL Hct (40.0-50.0) % MCV (80-95) fL MCH (27.0-33.0) pg MCHC (32.0-36.0) g/dL RDW (11.8-14.1) % Plt Count (130-400) x1000/uL MPV (8.0-11.0) fL Immature Gran % Neutrophils % Lymphocytes % Monocytes % Eosinophils % Basophils % Absolute Neutrophils (1.2-6.7) k/cumm Absolute Lymphocytes (1.2-3.4) k/cumm Absolute Monocytes (0.11-0.7) k/cumm Absolute Eosinophils (0.0-0.7) k/cumm Absolute Basophils (0.0-0.2) k/cumm PT (9.3-11.0) sec INR (0.9-1.1) APTT (21.0-31.4) sec Sodium (136-145) mmol/L Potassium (3.5-5.1) mmol/L Chloride (98-107) mmol/L Carbon Dioxide (21.0-32.0) mmol/L Anion Gap (3-11) mmol/L BUN (7-18) mg/dL Creatinine (0.70-1.30) mg/dL Estimated GFR/1.73 m2 (mL/min/1.73m2) Glucose (70-100) mg/dL Calcium (8.5-10.1) mg/dL Total Bilirubin (0.2-1.0) mg/dL AST (15-37) U/L ALT (12-78) U/L Alkaline Phosphatase (46-116) U/L Total Protein (6.4-8.2) g/dL Albumin (3.4-5.0) g/dL Lipase (73-393) U/L Urine Color (Yellow) Yellow Urine Clarity Clear Urine pH (5-8) 7.0 Ur Specific Montgomery (1.005-1.025) 1.020 Urine Protein (Negative) mg/dL Trace H Urine Ketones (Negative) mg/dL 15 H Urine Blood (Negative) Trace-intact H Urine Nitrite (Negative) Negative Urine Bilirubin (Negative) Small H Urine Urobilinogen (Up TO 0.2) EU/dL 0.2 Ur Leukocyte Esterase (Negative) Negative Urine RBC (0-2) 5-10 H Urine WBC (0-5) HPF 0-2 Ur Epithelial Cells (Negative) HPF Rare Urine Crystals (Negative) HPF Few amorphous Urine Bacteria (Negative) HPF Rare Urine Casts (Negative) LPF Negative Urine Mucus (Negative) Heavy Urine Other (Negative) Negative Ur Culture Indicated? No Urine Glucose (Negative) mg/dL Negative HPI General Mode of arrival: ambulatory. Date/Time Provider Initiated Documentation: 07/03/18 11:05. Limitations to Documentation: no limitations. Information obtained by: patient. HPI Narrative: Patient is a 63-year-old male with a history of pancreatitis, alcohol abuse, COPD, lung cancer with recent hospital admission for acute pancreatitis with ileus who presents for lower abdominal pain since this morning. Patient states the pain is in his suprapubic abdominal region, described as aching, 7/10, no radiation and denies any aggravating or alleviating factors. He denies any fever, nausea, vomiting, diarrhea or urinary symptoms. Patient denies any alcohol use since prior to last admission. Patient was admitted earlier this month for acute pancreatitis related to alcohol use. He subsequently developed an ileus and did not tolerate an NG tube and had a colonoscopy for decompression. Related Data Home Medications Medication Instructions Recorded Confirmed Symbicort 10.2 gm INHALATION BID #3 inhaler 06/20/17 07/03/18 Spiriva with HandiHaler 1 cap INHALATION DAILY 09/29/17 07/03/18 OptiChamber Advantage kit 10/15/17 07/02/18 albuterol sulfate 2.5 mg INHALATION Q4H PRN PRN 30 10/15/17 07/03/18 Days ml ranitidine HCl 150 mg PO BID #180 tab-cap 10/31/17 07/03/18 fluoxetine 30 mg PO DAILY #90 cap 11/07/17 07/02/18 docusate sodium [Colace] 100 mg PO DAILY 60 Days #60 cap 01/09/18 07/02/18 nicotine 21 mg TRANSDERMAL DAILY #30 ea 06/29/18 07/03/18 pantoprazole 40 mg PO BID@0730,2000 #60 tab 06/29/18 07/03/18 albuterol sulfate HFA 90 2 puff INHALATION Q4H PRN PRN #1 07/02/18 07/03/18 mcg/actuation aerosol inhaler inh cetirizine 10 mg capsule 10 mg PO DAILY cap 07/02/18 07/02/18 multivitamin tablet 1 tab PO QAM #90 tab 07/02/18 07/03/18 thiamine HCl (vitamin B1) 100 mg 100 mg PO DAILY #90 tab 07/02/18 07/03/18 tablet Previous Rx's Medication Instructions Recorded Symbicort 10.2 gm INHALATION BID #3 inhaler 06/20/17 OptiChamber Advantage kit 10/15/17 albuterol sulfate 2.5 mg INHALATION Q4H PRN PRN 30 10/15/17 Days ml ranitidine HCl 150 mg PO BID #180 tab-cap 10/31/17 fluoxetine 30 mg PO DAILY #90 cap 11/07/17 docusate sodium [Colace] 100 mg PO DAILY 60 Days #60 cap 01/09/18 nicotine 21 mg TRANSDERMAL DAILY #30 ea 06/29/18 pantoprazole 40 mg PO BID@0730,1999 #60 tab 06/29/18 albuterol sulfate HFA 90 2 puff INHALATION Q4H PRN PRN #1 07/02/18 mcg/actuation aerosol inhaler inh multivitamin tablet 1 tab PO QAM #90 tab 07/02/18 thiamine HCl (vitamin B1) 100 mg 100 mg PO DAILY #90 tab 07/02/18 tablet Allergies Allergy/AdvReac Type Severity Reaction Status Date / Time No Known Allergies Allergy Verified 07/02/18 09:41 General Stated Complaint: Abd Prob FLASH: 3 Review of Systems Review of Systems All systems reviewed & are unremarkable except as noted in HPI and below Constitutional Reports as per HPI, Denies chills and Denies fever(s) Eyes Denies blurry vision ENT Denies dizziness, Denies sore throat and Denies throat swelling Cardiovascular Denies chest pain and Denies dyspnea Respiratory Denies cough and Denies dyspnea Gastrointestinal Reports abdominal pain, Denies diarrhea and Denies vomiting Genitourinary Denies hematuria and Denies dysuria Musculoskeletal Denies back pain and Denies numbness Integumentary/Breasts Denies lesions and Denies rash Neurologic Denies dizziness, Denies focal weakness and Denies numbness Allergic/Immunologic Denies throat swelling [facility] Medical History COPD (chronic obstructive pulmonary disease) (Chronic) Adjustment disorder with anxiety (Acute) Dyspepsia (Acute) Malignant neoplasm of right lung (Acute) Tubular adenoma of colon (Acute) Alcohol abuse (Chronic) Anxiety (Chronic) Surgical History History of lung biopsy (Resolved) History of surgery on upper extremity (Resolved) colonoscopy (01/19/15) Family History Father Essential hypertension Hyperlipidemia Paternal Uncle Heart disease Stroke Cerebral hemorrhage Hypertension Brother Cancer Social History adopted: No foster care: No household members: family housing: house lives independently: Yes current occupation: not working Smoking/Tobacco Use Status: Former Tobacco Use alcohol intake: current alcohol intake frequency: 3 or more drinks per day Alcohol type: beer and wine substance use type: does not use seatbelt use: always drive intox or ride w/ intox 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 water heater temp set < 120 deg: Yes working smoke detector in home: Yes fire extinguisher in home: Yes carbon monox detector in home: Yes firearms in home: Yes Exam Const General: cooperative, healthy appearing and no acute distress HENMT Head: normal to inspection Face and sinus: normal facial exam Eyes General: appearance normal, both eyes and all related structures EOM: EOM intact bilaterally Neck Neck: normal visual inspection and No submandibular swelling Lymphatic: no lymphadenopathy noted Chest Chest: normal inspection of the chest and no tenderness Resp Effort & Inspection: normal respiratory effort and able to speak in complete sentences Auscultation: clear to auscultation bilaterally Cardio Rate: regular rate Rhythm: regular rhythm GI Inspection: normal to inspection Palpation: soft, not firm, not rigid and tender in the RLQ (minimal ) and suprapubicly (minimal ); with no rebound tenderness Auscultation: normal bowel sounds Male General Exam: Yes normal external exam Skin General skin exam: no rashes or lesions noted Neuro General: alert, awake and oriented x3 Cognition: normal cognition Speech: speech normal Motor: muscle tone normal throughout Sensory Exam: no sensory deficits noted Extrem General: normal to inspection, full ROM and no edema Psych Appearance: grossly normal Mental Status: mental status grossly normal Speech and Movement: speech and movement normal Affect: normal affect Course Vital Signs Temperature 97.9 F 07/03/18 10:57 Pulse 102 H 07/03/18 10:57 Respiratory Rate 20 07/03/18 10:57 Blood Pressure 144/93 H 07/03/18 10:57 Pulse Oximetry 94 L 07/03/18 10:57 Temperature 97.9 F 07/03/18 10:57 Temperature Source Temporal Artery Scan 07/03/18 10:57 Pulse 102 H 07/03/18 10:57 Respiratory Rate 20 07/03/18 10:57 Respiratory Effort Non-Labored 07/03/18 10:58 Blood Pressure 144/93 H 07/03/18 10:57 Blood Pressure Position Sitting 07/03/18 10:57 Pulse Oximetry 94 L 07/03/18 10:57 Oxygen Delivery Method Room Air 07/03/18 10:57 Oxygen Flow Rate 0 07/03/18 10:57 Pain Level 7 07/03/18 10:57
[2018-07-03 11:20] LABS: Abs Immature Grans 0.06 k/cumm (0.0-0.09); Absolute Basophil Count 0.03 k/cumm (0.0-0.2); Absolute Eosinophil Count 0.11 k/cumm (0.0-0.7); Absolute Lymphocyte Count 0.74 k/cumm (1.2-3.4); Absolute Monocyte Count 0.76 k/cumm (0.11-0.7); Absolute Neutrophil Count 4.17 k/cumm (1.2-6.7); Basophils % 0.5; Eosinophils % 1.9; HGB 12.8 g/dL (13.5-17.5); Lymphocytes % 12.6; Mean Corp. HGB Concentration 32.8 g/dL (32.0-36.0); Mean Corpuscular Hemoglobin 32.1 pg (27.0-33.0); Mean Corpuscular Volume 97.7 fL (80-95); Mean Platelet Volume 9.9 fL (8.0-11.0); Monocytes % 12.9; Neutrophils % 71.1; Platelet Count 561 x1000/uL (130-400); RBC 3.99 m/cumm (4.50-6.00); RBC Distribution Width 12.3 % (11.8-14.1); White Blood Cell Count 5.87 k/cumm (4.4-10.8)
[2018-07-03 11:36] LABS: ALT 30 U/L (12-78); AST 28 U/L (15-37); Albumin 2.9 g/dL (3.4-5.0); Alkaline Phosphatase 236 U/L (46-116); Anion Gap 10.1 mmol/L (3-11); BUN 10 mg/dL (7-18); Bilirubin, Total 0.4 mg/dL (0.2-1.0); CO2 30.9 mmol/L (21.0-32.0); CREATININE 1.04 mg/dL (0.70-1.30); Calcium 8.6 mg/dL (8.5-10.1); Chloride 100 mmol/L (98-107); Glucose 98 mg/dL (70-100); Potassium 3.5 mmol/L (3.5-5.1); Sodium 141 mmol/L (136-145); Total Protein 8.1 g/dL (6.4-8.2)
[2018-07-03 11:37] LABS: Lipase 1708 U/L (73-393)
[2018-07-03 11:44] LABS: Bilirubin Small (Negative); Blood Trace-intact (Negative); Clarity Clear; Glucose Negative (Negative); Ketones 15 mg/dL (Negative); Leukocyte Esterase Negative (Negative); Nitrite Negative (Negative); Urobilinogen 0.2 EU/dL (Up TO 0.2)
[2018-07-03 11:54] LABS: Bacteria Rare HPF (Negative); Crystals Few Amorphous HPF (Negative); Epithelial Cells Rare HPF (Negative); Other Cells Negative (Negative); WBC 0-2 HPF (0-5)
[2018-07-03 11:55] LABS: C & S Indicated? No; Casts Negative LPF (Negative); Mucus Heavy (Negative)
[2018-07-03] MEDS: Omnipaque 350 MG/ML 100 ML BTL 84 ML IJ (11:55)
--- NOTE | 2018-07-03 12:00 | DI.CT_ITS ---
SYMPTOM/DIAGNOSIS: LLQ ABD PAIN, H/O PANCREATITIS ABDOMEN AND PELVIC CT: Comparison is made with 06/24/18. Images were performed from the lung bases through the ischial tuberosities after IV and without oral contrast. There has been interval decrease in size of the bilateral pleural effusions and bibasilar infiltrates versus atelectasis. The effusions are now small and the atelectasis is minimal. There has been resolution of the previously noted small bowel dilatation. The previously noted loculated collections around the pancreas have substantially decreased in size. Some loculated collections remain present. The more superior collection at the level of the celiac axis measures 4 cm. transverse. The loculated collections more inferiorly beneath the level of the pancreas and medial to the head of the pancreas have decreased. The appendix appears normal. A small amount of fluid remains present around the gallbladder. The liver, spleen, kidneys and adrenals are unremarkable. The pancreas does not appear edematous. The bladder and prostate are unremarkable. IMPRESSION: Significant improvement in bowel dilatation as well as size of loculated peripancreatic collections. There has also been significant improvement in bilateral pleural effusions and bibasilar atelectasis.
[2018-07-03] MEDS: Normal Saline 1,000 ML 1000 ML IV (12:34)
--- NOTE | 2018-07-03 13:08 | W.SURGCON ---
Date of service: 07/03/18 Time of Service: 13:08 Assessment and Plan (1) Umbilical hernia: Start date: 07/03/18 Start time: 13:11 Current visit: Yes Status: Acute When patient was examined he told me that the pain was at the umbilicus on examination of his abdomen he was noted to have an umbilical hernia. With the presenting condition of abdominal pain with a finding of an umbilical hernia suggest that possibly he had a incarceration that was reduced and now not having abdominal pain could possibly be related to that. Patient currently on exam has no pain and no complaints as reference to his abdomen. Plan: Patient appears to have an element of pancreatitis possible chronic alcohol induced pancreatitis but currently has no issues with his umbilical hernia due to his poor prognosis related to his alcoholism/pancreatitis as well as severe liver disease would be poor candidate for elective repair (2) Chronic alcoholic pancreatitis: Start date: 07/03/18 Start time: 13:17 Current visit: Yes Status: Acute Possible medical admission for lipase of 1700 for supportive care (3) Abdominal pain: Start date: 07/03/18 Start time: 13:18 Current visit: Yes Status: Acute Resolved most likely secondary to his umbilical hernia no treatment needed currently History of Present Illness Chief Complaint: abd pain Review of Systems Review of Systems All systems reviewed & are unremarkable except as noted in HPI and below Constitutional Reports as per HPI Gastrointestinal Reports as per HPI and Reports abdominal pain (? 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 umbilical hernia reduced Results Last Vital Signs Temp 36.6 C 07/03/18 10:57 Pulse 102 H 07/03/18 10:57 Resp 20 07/03/18 10:57 BP 144/93 H 07/03/18 10:57 Pulse Ox 94 L 07/03/18 10:57 Labs : 07/03/18 11:15 07/03/18 11:15 Laboratory Results - last 24 hr 07/03/18 07/03/18 07/03/18 11:15 11:15 11:30 WBC 5.87 RBC 3.99 L Hgb 12.8 L Hct 39.0 L MCV 97.7 H MCH 32.1 MCHC 32.8 RDW 12.3 Plt Count 561 H MPV 9.9 Immature Gran % 1.0 Neutrophils % 71.1 Lymphocytes % 12.6 Monocytes % 12.9 Eosinophils % 1.9 Basophils % 0.5 Absolute Neutrophils 4.17 Absolute Lymphocytes 0.74 L Absolute Monocytes 0.76 H Absolute Eosinophils 0.11 Absolute Basophils 0.03 Sodium 141 Potassium 3.5 Chloride 100 Carbon Dioxide 30.9 Anion Gap 10.1 BUN 10 Creatinine 1.04 Estimated GFR/1.73 m2 >= 60.00 Glucose 98 Calcium 8.6 Total Bilirubin 0.4 AST 28 ALT 30 Alkaline Phosphatase 236 H Total Protein 8.1 Albumin 2.9 L Lipase 1708 H Urine Color Yellow Urine Clarity Clear Urine pH 7.0 Ur Specific [place] 1.020 Urine Protein Trace H Urine Ketones 15 H Urine Blood Trace-intact H Urine Nitrite Negative Urine Bilirubin Small H Urine Urobilinogen 0.2 Ur Leukocyte Esterase Negative Urine RBC 5-10 H Urine WBC 0-2 Ur Epithelial Cells Rare Urine Crystals Few amorphous Urine Bacteria Rare Urine Casts Negative Urine Mucus Heavy Urine Other Negative Ur Culture Indicated? No Urine Glucose Negative
[2018-07-03] MEDS: Ondansetron O.D.T. 4 MG TABEF PO (14:08)
[2018-07-03] MEDS: Acetaminophen 500 MG TAB 1000 MG PO (14:08)
[2018-07-03 16:19] VITALS: BP 138/88; PULSE 88; RESP 20; TEMP 36.8; O2SAT 95
== END 2018-07-03 16:22 | disposition home or self-care (01) ==
PROVIDERS: Emergency Provider Physician Assistant; PCP Internal Medicine
DX: R10.30 Lower abdominal pain, unspecified (principal); K86.1 Other chronic pancreatitis; K42.9 Umbilical hernia without obstruction or gangrene; J44.9 Chronic obstructive pulmonary disease, unspecified; Z87.891 Personal history of nicotine dependence
CPT/HCPCS: 80053; 83690; 96360; 99253; 99285; 74177; 81003; 81015; 85025; 85610; 85730; 99284; J3490

== ENCOUNTER 2018-07-05 09:54 | Outpatient (CLI) | payer MEDICAID, SELFPAY ==
[2018-07-05 10:29] LABS: Abs Immature Grans 0.04 k/cumm (0.0-0.09); Absolute Basophil Count 0.03 k/cumm (0.0-0.2); Absolute Eosinophil Count 0.19 k/cumm (0.0-0.7); Absolute Lymphocyte Count 0.89 k/cumm (1.2-3.4); Absolute Monocyte Count 0.58 k/cumm (0.11-0.7); Absolute Neutrophil Count 3.43 k/cumm (1.2-6.7); Basophils % 0.6; Eosinophils % 3.7; HCT 38.1 % (40.0-50.0); HGB 12.4 g/dL (13.5-17.5); Immature Grans % 0.8; Lymphocytes % 17.2; Mean Corp. HGB Concentration 32.5 g/dL (32.0-36.0); Mean Corpuscular Hemoglobin 31.9 pg (27.0-33.0); Mean Corpuscular Volume 97.9 fL (80-95); Mean Platelet Volume 10.1 fL (8.0-11.0); Monocytes % 11.2; Neutrophils % 66.5; Platelet Count 520 x1000/uL (130-400); RBC 3.89 m/cumm (4.50-6.00); RBC Distribution Width 12.4 % (11.8-14.1); White Blood Cell Count 5.16 k/cumm (4.4-10.8)
[2018-07-05 10:57] LABS: Lipase 1897 U/L (73-393)
== END 2018-07-05 10:14 ==
PROVIDERS: PCP Internal Medicine; Visit Provider Physician Assistant
DX: R50.9 Fever, unspecified (principal); K85.90 Acute pancreatitis without necrosis or infection, unspecified
CPT/HCPCS: 36415; 83690; 85025

== ENCOUNTER 2018-07-06 14:48 | Outpatient (REF) | payer MEDICAID, SELFPAY ==
[2018-07-06 19:44] LABS: Lipase 1958 U/L (73-393)
== END 2018-07-06 15:08 ==
LOC: LBN 14:48
PROVIDERS: PCP Internal Medicine; Visit Provider Nurse Practitioner Adult Health
DX: K86.0 Alcohol-induced chronic pancreatitis (principal)
CPT/HCPCS: 83690

== ENCOUNTER 2018-08-09 00:32 | Outpatient (CLI) | payer MEDICAID, SELFPAY ==
--- NOTE | 2018-08-09 14:14 | DI.RAD_ITS ---
SYMPTOMS/DIAGNOSIS: F/U ABNORMAL CXR, ASSESS INTERVAL RESOLUTION, R93.89 CHEST X-RAY, PA AND LATERAL: Comparison examination is 06/24/18. The heart size and pulmonary vasculature are within normal limits. The left basilar infiltrate has resolved, as have the bilateral pleural effusions. There has been an increased opacity in the right upper lobe. The lungs are otherwise clear. The bones appear intact. IMPRESSION: 1. Resolution of the left basilar infiltrate and small pleural effusions. 2. Worsening right upper lobe infiltrate. Please correlate with the patient's clinical symptoms. A chest x-ray should be obtained to document complete resolution of the right upper lobe infiltrate.
== END 2018-08-09 00:52 ==
PROVIDERS: PCP Internal Medicine; Visit Provider Nurse Practitioner Adult Health
DX: R91.8 Other nonspecific abnormal finding of lung field (principal); R93.89 Abnormal findings on diagnostic imaging of other specified body structures
CPT/HCPCS: 71046

== ENCOUNTER 2018-08-24 00:49 | Outpatient (CLI) | payer MEDICAID, SELFPAY ==
--- NOTE | 2018-08-24 12:35 | DI.CT_ITS ---
SYMPTOMS/DIAGNOSIS: CA RIGHT UPPER LOBE, C34.11, S/P RADIATION, ASSESS FOR DISEASE PROGRESSION CHEST CT: A noncontrast chest CT was performed. The thoracic aorta shows atherosclerosis, but no evidence of aneurysmal dilatation. The heart size is within normal limits. No significant pericardial effusion is seen. Coronary artery calcifications are present. No significant thoracic adenopathy is appreciated. No pleural effusion or pneumothorax is identified. Upper abdominal images show a 2 mm nonobstructing stone in the superior pole of the right kidney. The right upper lobe mass-like density area has shown interval increase in size. The area now includes areas of consolidation extending to the periphery of the lung. The lungs are otherwise clear. The tracheobronchial tree is unremarkable. Degenerative changes are seen in the spine. IMPRESSION: Significant increase in size of the opacity in the right upper lobe. Areas of pulmonary consolidation are indistinguishable at this time from the underlying mass. Overall, the opacity measures at least 2.2 cm x 6 cm. This area appears to include not only the mass, but a peripheral area of consolidation, which may represent atelectasis, infectious or inflammatory or posttherapeutic pneumonitis.
[2018-08-24 12:37] LABS: Abs Immature Grans 0.02 k/cumm (0.0-0.09); Absolute Basophil Count 0.01 k/cumm (0.0-0.2); Absolute Eosinophil Count 0.09 k/cumm (0.0-0.7); Absolute Lymphocyte Count 1.09 k/cumm (1.2-3.4); Absolute Monocyte Count 0.48 k/cumm (0.11-0.7); Basophils % 0.2; Eosinophils % 2.2; HCT 39.4 % (40.0-50.0); Immature Grans % 0.5; Mean Corpuscular Hemoglobin 30.2 pg (27.0-33.0); Mean Corpuscular Volume 91.6 fL (80-95); Mean Platelet Volume 9.6 fL (8.0-11.0); Monocytes % 11.9; Neutrophils % 58.2; Platelet Count 272 x1000/uL (130-400); White Blood Cell Count 4.03 k/cumm (4.4-10.8)
[2018-08-24 12:38] LABS: Absolute Neutrophil Count 2.35 k/cumm (1.2-6.7)
[2018-08-24 12:43] LABS: ALT 23 U/L (12-78); AST 18 U/L (15-37); Albumin 3.2 g/dL (3.4-5.0); Alkaline Phosphatase 90 U/L (46-116); Anion Gap 4.8 mmol/L (3-11); BUN 10 mg/dL (7-18); Bilirubin, Total 0.6 mg/dL (0.2-1.0); CO2 29.2 mmol/L (21.0-32.0); CREATININE 0.92 mg/dL (0.70-1.30); Calcium 8.3 mg/dL (8.5-10.1); Chloride 105 mmol/L (98-107); Glucose 113 mg/dL (70-100); LDH 185 U/L (85-227); Potassium 3.9 mmol/L (3.5-5.1); Sodium 139 mmol/L (136-145); Total Protein 7.2 g/dL (6.4-8.2)
== END 2018-08-24 01:09 ==
PROVIDERS: PCP Internal Medicine; Visit Provider Nurse Practitioner
DX: C34.11 Malignant neoplasm of upper lobe, right bronchus or lung (principal); R91.8 Other nonspecific abnormal finding of lung field; N20.0 Calculus of kidney; Z92.3 Personal history of irradiation
CPT/HCPCS: 36415; 71250; 80053; 83615; 85025

== ENCOUNTER 2018-08-31 15:22 | Emergency (ER) | payer MEDICAID, SELFPAY ==
[2018-08-31 15:25] VITALS: BP 147/91; PULSE 74; RESP 16; TEMP 36.6; O2SAT 98
--- NOTE | 2018-08-31 15:47 | DI.CT_ITS ---
SYMPTOM/DIAGNOSIS: LOW ABD PAIN, ? SMALL BOWEL OBSTRUCTION OR PANCREATITIS ABDOMEN AND PELVIC CT: CT examination of the abdomen and pelvis was performed with a bolus infusion of 100 cc's of Omnipaque 350. Images are compared with the previous study of 07/03/18. Previous examination showed multiple fluid collections adjacent to the pancreas and in the paracolonic gutters. On today's examination, these have all decreased in size. There is a small collection inferior to the pancreas at the level of the superior mesenteric artery and this measures 27 by 14 mm. in diameter on transaxial imaging. An additional posteriorly located fluid collection measures about 30 by 10 mm. and is also decrease in size in comparison with the previous study. No new fluid collections are seen. No evidence of acute pancreatitis. No biliary dilatation. Gallbladder is contracted. No new liver or splenic abnormality is seen. No adenopathy is seen. No abdominal wall hernia is seen. Vascular structures appear intact. Adrenals and kidneys are unremarkable. Appendix appears normal. No evidence of bowel obstruction or diverticulitis. CONCLUSION: Decreasing size of small peripancreatic fluid collections since 07/03/18. No evidence of acute disease.
--- NOTE | 2018-08-31 15:50 | ED.GENADUL_ITS ---
Discharge Plan Disposition Patient Disposition: HOME Condition: Stable Discharge Details Chief Complaint: Abd Prob Clinical Impression: Abdominal pain, Constipation Primary Care Provider: Deborah Chow ED Provider: Alison Resendiz Home Meds and New Rx's Prescriptions: New magnesium citrate solution 120 ml PO DAILY PRN (Reason: constipation) Qty: 296 RF: 0 Continued quetiapine 25 mg tablet 25 mg PO QHS Qty: 90 RF: 0 pantoprazole 40 mg tablet,delayed release (DR/EC) 40 mg PO DAILY Qty: 90 RF: 3 cetirizine 10 mg capsule 10 mg PO DAILY RF: 0 albuterol sulfate [ProAir HFA] 90 mcg/actuation HFA aerosol inhaler 2 puff Inhalation Q4H PRN PRN (Reason: Shortness Of Breath) Qty: 1 RF: 1 multivitamin tablet 1 tab PO QAM Qty: 90 RF: 3 thiamine HCl (vitamin B1) 100 mg tablet 100 mg PO DAILY Qty: 90 RF: 3 Symbicort 10.2 GM HFA aerosol inhaler 10.2 gm Inhalation BID Qty: 3 RF: 3 Spiriva with HandiHaler 30 CAP/INH capsule, w/inhalation device 1 cap Inhalation DAILY RF: 0 OptiChamber Advantage 1 EACH spacer 1 ea Miscellaneous DIRECTED RF: 0 albuterol sulfate 2.5 MG/3 ML solution for nebulization 2.5 mg Inhalation Q4H PRN PRN (Reason: Shortness Of Breath) 30 Days RF: 0 nicotine 21 mg/24 hr Patch 24 Hour 21 mg Transdermal DAILY Qty: 30 RF: 0 Discharge Instructions Instructions: Constipation (ED), Abdominal Pain (ED) Additional Instructions: Your CAT scan looked improved compared to your last CAT scan. There were no signs of a bowel obstruction. Drink plenty of fluids. Take the magnesium citrate medication as directed. If you have no relief with the magnesium citrate, you can try [id number] glycerin suppositories. Follow-up with your primary care doctor next week. Return immediately to the emergency department with any worsening or new concerning symptoms. Discharge Data Discharge Physician: Alison Resendiz Medical Decision Making 63-year-old male with a history of COPD, anxiety, alcohol abuse, lung cancer pancreatitis who presents with lower abdominal pain and constipation for the past 3-4 days. He denies fever, vomiting, urinary symptoms. He denies any recent alcohol use. No relief with medication for constipation per his physician at the cancer center. Vitals within normal limits. Afebrile. Patient appears nontoxic. His abdomen is soft and very minimally tender in the right lower quadrant. I discussed with patient that he has a history of multiple abdominal surgeries due to his previous pancreatitis, and that we may consider to assess with lab work and abdominal x-ray but he did not proceed with CT at this time. Will obtain a CT abdomen to assess for small bowel obstruction versus another acute process. 1730 --labs and imaging reviewed and unremarkable. Normal white blood cell count. Normal electrolytes. Lipase 599 which is significantly improved co mpared to previous with his chronic pancreatitis. He has no epigastric abdominal pain. Urinalysis negative. CT notes significant improvement in multiple fluid collections and no evidence of pancreatitis or bowel obstruction. Patient states he feels good to go home. Will send home with a prescription for magnesium citrate. He is instructed to use this as directed and if he has no relief to try [id number] glycerin suppositories. He is instructed to follow-up with primary care doctor for reevaluation and return here anytime if worse. Medical Records Medical records reviewed: Yes I reviewed the patient's medical records. Imaging Data Radiologic Study: Radiologist's impression: CT ABDOMEN AND PELVIS WITH IV CONTRAST: EXAM DATE/TIME: 08/31/2018 3:49 PM FINDINGS: Lower thorax: No acute findings. ABDOMEN: Liver: Stable 6 mm low attenuation area in the right lobe of the liver Gallbladder and bile ducts: No pericholecystic fluid which was present on the prior study. Pancreas: Decreasing fluid collection adjacent to the posterior aspect of the pancreas. In July 03, 2018 it measured 4.7 cm. Now it measures 3.1 cm (4:19). The fluid collections adjacent to the head of the pancreas have resolved.. No evidence of pancreatitis. Spleen: Normal. No splenomegaly. Adrenals: Normal. No mass. Kidneys and ureters: 4 mm nodule upper pole right kidney is too small to characterize. Stomach and bowel: No small bowel obstruction. Appendix: Normal appendix PELVIS: Bladder: The bladder wall measures 11 mm. This is nonspecific and may represent inflammation or infection. Neoplastic process and neurogenic bladder are included in the differential. Reproductive: Unremarkable as visualized. ABDOMEN and PELVIS: Intraperitoneal space: Again noted is a fluid collection anterior to SMA. It now measures 3.4 x 1.2 cm. It has decreased significantly in size. Fluid collection in the left pericolic gutter has decreased in size. Bones/joints: No acute fracture. No dislocation. Soft tissues: Unremarkable. Vasculature: Normal. No abdominal aortic aneurysm. Lymph nodes: Normal. No enlarged lymph nodes. IMPRESSION: 1. Decreasing fluid collection adjacent to the posterior aspect of the pancreas. In July 03, 2018 it measured 4.7 cm. Now it measures 3.1 cm (4:19). The fluid collections adjacent to the head of the pancreas have resolved.. 2. Again noted is a fluid collection anterior to SMA. It now measures 3.4 x 1.2 cm. It has decreased significantly in size. 3. Fluid collection in the left pericolic gutter has decreased in size. 4. No pericholecystic fluid which was present on the prior study. 5. No evidence of pancreatitis. 6. No small bowel obstruction. 7. The bladder wall measures 11 mm. This is nonspecific and may represent inflammation or infection. Neoplastic process and neurogenic bladder are included in the differential. Lab Data Lab results reviewed: Yes I reviewed the patient's lab results. HPI General Mode of arrival: ambulatory . Date/Time Provider Initiated Documentation: 08/31/18 15:27 . Limitations to Documentation: no limitations . Information obtained by: patient . HPI Narrative: Patient is a 63-year-old male with a history of COPD, anxiety, alcohol abuse, lung cancer, pancreatitis who presents to the ED w/ a c/o lower abdominal pain and constipation for the past 3-4 days. States the abdominal pain is intermittent, aching and currently 6/10. He states he saw his doctor at the cancer center and was given a pill and a liquid medication for constipation which she has taken without relief. He denies fever, nausea, vomiting, urinary symptoms, rectal bleeding. He denies a history of abdominal surgery. Related Data Home Medications Medication Instructions Recorded Confirmed Symbicort 10.2 gm INHALATION BID #3 inhaler 06/20/17 08/31/18 Spiriva with HandiHaler 1 cap INHALATION DAILY 09/29/17 08/31/18 OptiChamber Advantage kit 10/15/17 08/15/18 albuterol sulfate 2.5 mg INHALATION Q4H PRN PRN 30 10/15/17 08/31/18 Days ml nicotine 21 mg TRANSDERMAL DAILY #30 ea 06/29/18 08/31/18 albuterol sulfate HFA 90 2 puff INHALATION Q4H PRN PRN #1 07/02/18 08/31/18 mcg/actuation aerosol inhaler inh cetirizine 10 mg capsule 10 mg PO DAILY cap 07/02/18 08/31/18 multivitamin tablet 1 tab PO QAM #90 tab 07/02/18 08/31/18 thiamine HCl (vitamin B1) 100 mg 100 mg PO DAILY #90 tab 07/02/18 08/31/18 tablet pantoprazole 40 mg tablet,delayed 40 mg PO DAILY #90 tab 07/11/18 08/31/18 release quetiapine 25 mg tablet 25 mg PO QHS #90 tab 07/11/18 08/31/18 magnesium citrate 120 ml PO DAILY PRN #296 ml 08/31/18 Previous Rx's Medication Instructions Recorded Symbicort 10.2 gm INHALATION BID #3 inhaler 06/20/17 OptiChamber Advantage kit 10/15/17 albuterol sulfate 2.5 mg INHALATION Q4H PRN PRN 30 10/15/17 Days ml nicotine 21 mg TRANSDERMAL DAILY #30 ea 06/29/18 albuterol sulfate HFA 90 2 puff INHALATION Q4H PRN PRN #1 07/02/18 mcg/actuation aerosol inhaler inh multivitamin tablet 1 tab PO QAM #90 tab 07/02/18 thiamine HCl (vitamin B1) 100 mg 100 mg PO DAILY #90 tab 07/02/18 tablet pantoprazole 40 mg tablet,delayed 40 mg PO DAILY #90 tab 07/11/18 release quetiapine 25 mg tablet 25 mg PO QHS #90 tab 07/11/18 magnesium citrate 120 ml PO DAILY PRN #296 ml 08/31/18 Allergies Allergy/AdvReac Type Severity Reaction Status Date / Time No Known Allergies Allergy Verified 08/31/18 15:31 General Stated Complaint: Abd Prob FLASH: 3 Review of Systems Review of Systems All systems reviewed & are unremarkable except as noted in HPI and below Constitutional Reports as per HPI, Denies chills and Denies fever(s) Eyes Denies blurry vision ENT Denies dizziness, Denies sore throat and Denies throat swelling Cardiovascular Denies chest pain and Denies dyspnea Respiratory Denies cough and Denies dyspnea Gastrointestinal Reports abdominal pain, Reports constipation, Denies diarrhea and Denies vomiting Genitourinary Denies hematuria and Denies dysuria Musculoskeletal Denies back pain and Denies numbness Integumentary/Breasts Denies lesions and Denies rash Neurologic Denies dizziness, Denies focal weakness and Denies numbness Allergic/Immunologic Denies throat swelling [facility] Social History Smoking/Tobacco Use Status: Former Tobacco Use Alcohol Intake: former Drug use: Never Substance use type: does not use Adopted: No Foster care: No Household members: family Housing: house current occupation: not working What type of physical activity do you participate in: none and other Details: started lifting weights Frequency: daily Seatbelt use: always Drive intox or ride w/intox 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 Water heater temp set <120 deg: Yes Working smoke detector in home: Yes Fire extinguisher in home: Yes Carbon monox detector in home: Yes Firearms in home: Yes Do you feel safe at home: Yes Do you feel safe in your relationship?: Yes Exam Const General: cooperative, healthy appearing and no acute distress HENMT Head: normal to inspection Face and sinus: normal facial exam Eyes General: appearance normal, both eyes and all related structures Pupils: PERRL EOM: EOM intact bilaterally Neck Neck: normal visual inspection and No submandibular swelling Lymphatic: no lymphadenopathy noted Chest Chest: normal inspection of the chest and no tenderness Resp Effort & Inspection: normal respiratory effort and able to speak in complete sentences Auscultation: clear to auscultation bilaterally Cardio Rate: regular rate Rhythm: regular rhythm GI Inspection: normal to inspection Palpation: soft, not firm, no guarding, no hepatosplenomegaly, no masses, not rigid and tender in the RLQ Auscultation: normal bowel sounds Skin General skin exam: no rashes or lesions noted Neuro General: alert, awake and oriented x3 Cognition: normal cognition Speech: speech normal Motor: muscle tone normal throughout Sensory Exam: no sensory deficits noted Extrem General: normal to inspection, full ROM and no edema Psych Appearance: grossly normal Mental Status: mental status grossly normal Speech and Movement: speech and movement normal Affect: normal affect Course Vital Signs Temperature 97.9 F 08/31/18 15:25 Pulse 74 08/31/18 15:25 Respiratory Rate 16 08/31/18 15:25 Blood Pressure 147/91 H 08/31/18 15:25 Pulse Oximetry 98 08/31/18 15:25 Temperature 97.9 F 08/31/18 15:25 Temperature Source Skin 08/31/18 15:25 Pulse 74 08/31/18 15:25 Respiratory Rate 16 08/31/18 15:25 Blood Pressure 147/91 H 08/31/18 15:25 Pulse Oximetry 98 08/31/18 15:25 Oxygen Delivery Method Room Air 08/31/18 15:25 Oxygen Flow Rate 0 08/31/18 15:25 Pain Level 6 08/31/18 15:32
[2018-08-31] MEDS: Normal Saline Flush 10 ML SYR IVP (16:00)
[2018-08-31] MEDS: Normal Saline 250 ML IV (16:00)
[2018-08-31 16:16] LABS: Abs Immature Grans 0.02 k/cumm (0.0-0.09); Absolute Basophil Count 0.02 k/cumm (0.0-0.2); Absolute Eosinophil Count 0.06 k/cumm (0.0-0.7); Absolute Lymphocyte Count 1.07 k/cumm (1.2-3.4); Absolute Monocyte Count 0.44 k/cumm (0.11-0.7); Basophils % 0.5; Eosinophils % 1.4; HCT 39.7 % (40.0-50.0); HGB 13.2 g/dL (13.5-17.5); Immature Grans % 0.5; Lymphocytes % 24.3; Mean Corp. HGB Concentration 33.2 g/dL (32.0-36.0); Mean Corpuscular Hemoglobin 30.3 pg (27.0-33.0); Mean Corpuscular Volume 91.3 fL (80-95); Mean Platelet Volume 10.1 fL (8.0-11.0); Neutrophils % 63.3; Platelet Count 258 x1000/uL (130-400); RBC 4.35 m/cumm (4.50-6.00); RBC Distribution Width 13.1 % (11.8-14.1); White Blood Cell Count 4.41 k/cumm (4.4-10.8)
[2018-08-31 16:17] LABS: Bilirubin Negative (Negative); Blood Negative (Negative); Clarity Clear; Glucose Negative (Negative); Ketones Negative (Negative); Leukocyte Esterase Negative (Negative); Nitrite Negative (Negative); Specific Gravity 1.025 (1.005-1.025); Urobilinogen 0.2 EU/dL (Up TO 0.2); pH 6.5 (5-8)
[2018-08-31] MEDS: Omnipaque 350 MG/ML 100 ML BTL IV (16:17)
[2018-08-31 16:28] LABS: ALT 19 U/L (12-78); AST 19 U/L (15-37); Albumin 3.5 g/dL (3.4-5.0); Alkaline Phosphatase 89 U/L (46-116); Anion Gap 8.8 mmol/L (3-11); BUN 13 mg/dL (7-18); Bilirubin, Total 0.5 mg/dL (0.2-1.0); CO2 28.2 mmol/L (21.0-32.0); CREATININE 0.97 mg/dL (0.70-1.30); Calcium 8.1 mg/dL (8.5-10.1); Chloride 103 mmol/L (98-107); Glucose 89 mg/dL (70-100); Lipase 599 U/L (73-393); Potassium 3.7 mmol/L (3.5-5.1); Sodium 140 mmol/L (136-145); Total Protein 7.4 g/dL (6.4-8.2)
--- NOTE | 2018-08-31 17:08 | DI.VRAD_ITS ---
EXAM: CT Abdomen and Pelvis With Contrast EXAM DATE/TIME: 08/31/2018 3:49 PM CLINICAL HISTORY: 63 years old, male; Pain; Abdominal pain; Localized; Lower; Patient HX: Lower abd pain, per PT: No bowel movement 4 days; Additional info: R/O sbo/pancreatitis TECHNIQUE: Imaging protocol: Axial computed tomography images of the abdomen and pelvis with intravenous contrast. Coronal and sagittal reformatted images were created and reviewed. COMPARISON: CT Abdomen^ROUTINE ABDOMEN PELVIS WITH CONTRAST (Adult) 07/03/2018 11:53 AM FINDINGS: Lower thorax: No acute findings. ABDOMEN: Liver: Stable 6 mm low attenuation area in the right lobe of the liver Gallbladder and bile ducts: No pericholecystic fluid which was present on the prior study. Pancreas: Decreasing fluid collection adjacent to the posterior aspect of the pancreas. In July 03, 2018 it measured 4.7 cm. Now it measures 3.1 cm (4:19). The fluid collections adjacent to the head of the pancreas have resolved.. No evidence of pancreatitis. Spleen: Normal. No splenomegaly. Adrenals: Normal. No mass. Kidneys and ureters: 4 mm nodule upper pole right kidney is too small to characterize. Stomach and bowel: No small bowel obstruction. Appendix: Normal appendix PELVIS: Bladder: The bladder wall measures 11 mm. This is nonspecific and may represent inflammation or infection. Neoplastic process and neurogenic bladder are included in the differential. Reproductive: Unremarkable as visualized. ABDOMEN and PELVIS: Intraperitoneal space: Again noted is a fluid collection anterior to SMA. It now measures 3.4 x 1.2 cm. It has decreased significantly in size. Fluid collection in the left pericolic gutter has decreased in size. Bones/joints: No acute fracture. No dislocation. Soft tissues: Unremarkable. Vasculature: Normal. No abdominal aortic aneurysm. Lymph nodes: Normal. No enlarged lymph nodes. IMPRESSION: 1. Decreasing fluid collection adjacent to the posterior aspect of the pancreas. In July 03, 2018 it measured 4.7 cm. Now it measures 3.1 cm (4:19). The fluid collections adjacent to the head of the pancreas have resolved.. 2. Again noted is a fluid collection anterior to SMA. It now measures 3.4 x 1.2 cm. It has decreased significantly in size. 3. Fluid collection in the left pericolic gutter has decreased in size. 4. No pericholecystic fluid which was present on the prior study. 5. No evidence of pancreatitis. 6. No small bowel obstruction. 7. The bladder wall measures 11 mm. This is nonspecific and may represent inflammation or infection. Neoplastic process and neurogenic bladder are included in the differential. Dictated and Authenticated by: Damián Guevara MD. Ordering:ANNA Rosas MD
[2018-08-31 17:56] VITALS: BP 152/92; PULSE 74; RESP 16; TEMP 37.1; O2SAT 99
== END 2018-08-31 18:05 | disposition home or self-care (01) ==
PROVIDERS: Emergency Provider Physician Assistant; PCP Internal Medicine
DX: R10.9 Unspecified abdominal pain (principal); K59.00 Constipation, unspecified; J44.9 Chronic obstructive pulmonary disease, unspecified
CPT/HCPCS: 80053; 83690; 96360; 99285; 74177; 81003; 85025; 99284; J3490

== ENCOUNTER 2018-09-03 05:43 | Emergency (ER) | payer MEDICAID, SELFPAY ==
[2018-09-03 05:45] VITALS: BP 155/90; PULSE 70; RESP 20; TEMP 36.3; O2SAT 100
--- NOTE | 2018-09-03 05:47 | W.ED.GENAD ---
Discharge Plan Disposition Patient Disposition: HOME Condition: Improving Discharge Details Chief Complaint: SOB Clinical Impression: Malignant neoplasm of unspecified part of right bronchus or lung Primary Care Provider: Deborah Cohw ED Provider: Ean Lyons Home Meds and New Rx's Prescriptions: Continued quetiapine 25 mg tablet 25 mg PO QHS Qty: 90 RF: 0 pantoprazole 40 mg tablet,delayed release (DR/EC) 40 mg PO DAILY Qty: 90 RF: 3 cetirizine 10 mg capsule 10 mg PO DAILY RF: 0 albuterol sulfate [ProAir HFA] 90 mcg/actuation HFA aerosol inhaler 2 puff Inhalation Q4H PRN PRN (Reason: Shortness Of Breath) Qty: 1 RF: 1 multivitamin tablet 1 tab PO QAM Qty: 90 RF: 3 thiamine HCl (vitamin B1) 100 mg tablet 100 mg PO DAILY Qty: 90 RF: 3 Symbicort 10.2 GM HFA aerosol inhaler 10.2 gm Inhalation BID Qty: 3 RF: 3 Spiriva with HandiHaler 30 CAP/INH capsule, w/inhalation device 1 cap Inhalation DAILY RF: 0 OptiChamber Advantage 1 EACH spacer 1 ea Miscellaneous DIRECTED RF: 0 albuterol sulfate 2.5 MG/3 ML solution for nebulization 2.5 mg Inhalation Q4H PRN PRN (Reason: Shortness Of Breath) 30 Days RF: 0 nicotine 21 mg/24 hr Patch 24 Hour 21 mg Transdermal DAILY Qty: 30 RF: 0 magnesium citrate solution 120 ml PO DAILY PRN (Reason: constipation) Qty: 296 RF: 0 Discharge Instructions Additional Instructions: Your chest x-ray showed no new masses and continues to demonstrate your known right upper lung mass. Please follow-up with Dr. Chow in clinic. Continue all of your regular medications Medical Decision Making 63-year-old male presents from home via EMS after waking this morning with both anxiety and transient tightness across his chest which he has had on numerous occasions in the past. He is afebrile, well-appearing, speaking in full sentences with normal oxygenation and an unremarkable exam. He is not tachycardic or hypoxic. CXR obtained and patient given 0.5mg Ativan CXR: Focal right upper lobe lung opacity has been characterized on a recent CT scan. No acute findings. Patient improved, consistent with mild anxiety. I will have him follow-up with Dr. Chow in clinic HPI General Mode of arrival: EMS. Date/Time Provider Initiated Documentation: 09/03/18 06:06. Limitations to Documentation: no limitations. Information obtained by: patient. History of Present Illness 63 year old M presents to the emergency department with the chief complaint of Tightness across chest, improving, described as similar to prior episodes, Quality is described as dull, and is localized to the chest. Patient reports no radiation. Patient started experiencing this hour(s) and it has been now resolved. No relieving factors improve symptom(s), No exacerbating factors reported . Patient notes other (Feeling anxious. No chest pain). Patient did receive the following treatments prior to arrival, none Related Data Home Medications Medication Instructions Recorded Confirmed Symbicort 10.2 gm INHALATION BID #3 inhaler 06/20/17 08/31/18 Spiriva with HandiHaler 1 cap INHALATION DAILY 09/29/17 08/31/18 OptiChamber Advantage kit 10/15/17 08/15/18 albuterol sulfate 2.5 mg INHALATION Q4H PRN PRN 30 10/15/17 08/31/18 Days ml nicotine 21 mg TRANSDERMAL DAILY #30 ea 06/29/18 08/31/18 albuterol sulfate HFA 90 2 puff INHALATION Q4H PRN PRN #1 07/02/18 08/31/18 mcg/actuation aerosol inhaler inh cetirizine 10 mg capsule 10 mg PO DAILY cap 07/02/18 08/31/18 multivitamin tablet 1 tab PO QAM #90 tab 07/02/18 08/31/18 thiamine HCl (vitamin B1) 100 mg 100 mg PO DAILY #90 tab 07/02/18 08/31/18 tablet pantoprazole 40 mg tablet,delayed 40 mg PO DAILY #90 tab 07/11/18 08/31/18 release quetiapine 25 mg tablet 25 mg PO QHS #90 tab 07/11/18 08/31/18 magnesium citrate 120 ml PO DAILY PRN #296 ml 08/31/18 Previous Rx's Medication Instructions Recorded Symbicort 10.2 gm INHALATION BID #3 inhaler 06/20/17 OptiChamber Advantage kit 10/15/17 albuterol sulfate 2.5 mg INHALATION Q4H PRN PRN 30 10/15/17 Days ml nicotine 21 mg TRANSDERMAL DAILY #30 ea 06/29/18 albuterol sulfate HFA 90 2 puff INHALATION Q4H PRN PRN #1 07/02/18 mcg/actuation aerosol inhaler inh multivitamin tablet 1 tab PO QAM #90 tab 07/02/18 thiamine HCl (vitamin B1) 100 mg 100 mg PO DAILY #90 tab 07/02/18 tablet pantoprazole 40 mg tablet,delayed 40 mg PO DAILY #90 tab 07/11/18 release quetiapine 25 mg tablet 25 mg PO QHS #90 tab 07/11/18 magnesium citrate 120 ml PO DAILY PRN #296 ml 08/31/18 Allergies Allergy/AdvReac Type Severity Reaction Status Date / Time No Known Allergies Allergy Verified 08/31/18 15:31 General FLASH: 3 Review of Systems Review of Systems 6 systems reviewed and otherwise negative. Patient states recently diagnosed with new spot on his lung [facility] Medical History COPD (chronic obstructive pulmonary disease) (Chronic) Adjustment disorder with anxiety (Acute) Dyspepsia (Acute) Malignant neoplasm of right lung (Acute) Tubular adenoma of colon (Acute) Alcohol abuse (Chronic) Anxiety (Chronic) Surgical History History of lung biopsy (Resolved) History of surgery on upper extremity (Resolved) colonoscopy (01/19/15) Family History Father Essential hypertension Hyperlipidemia Paternal Uncle Heart disease Stroke Cerebral hemorrhage Hypertension Brother Cancer Social History Smoking/Tobacco Use Status: Former Tobacco Use Alcohol Intake: former Drug use: Never Substance use type: does not use Adopted: No Foster care: No Household members: family Housing: house current occupation: not working What type of physical activity do you participate in: none and other Details: started lifting weights Frequency: daily Seatbelt use: always Drive intox or ride w/intox 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 Pleasant, well groomed, interactive. HEAD: Normocephalic, atraumatic ENT: Mucous membranes moist, oropharynx unremarkable, External ear exam unremarkable EYES: PERRL, EOMI NECK: Full ROM, no URSZULA, no menigismus CHEST/RESP: Nontender, clear to auscultation bilateral, no wheeze/rhonchi/rales CARDIOVASCULAR: RRR, no murmur, rub jeannie. 2+ Rad pulse bilateral ABDOMEN: Soft, nontender, no mass. +Bowel sounds EXT: Full ROM, no edema, no rash Neuro: Grossly normal neurologic exam, conversant, interactive. Psych: Speech fluent, thoughts congruent, affect normal
[2018-09-03] MEDS: LORazepam 0.5 MG TAB PO (05:51)
--- NOTE | 2018-09-03 05:51 | ED.GENADUL_ITS ---
Discharge Plan Disposition Patient Disposition: HOME Condition: Improving Discharge Details Chief Complaint: SOB Clinical Impression: Malignant neoplasm of unspecified part of right bronchus or lung Primary Care Provider: Deborah Chow ED Provider: Ean Lyons Home Meds and New Rx's Prescriptions: Continued quetiapine 25 mg tablet 25 mg PO QHS Qty: 90 RF: 0 pantoprazole 40 mg tablet,delayed release (DR/EC) 40 mg PO DAILY Qty: 90 RF: 3 cetirizine 10 mg capsule 10 mg PO DAILY RF: 0 albuterol sulfate [ProAir HFA] 90 mcg/actuation HFA aerosol inhaler 2 puff Inhalation Q4H PRN PRN (Reason: Shortness Of Breath) Qty: 1 RF: 1 multivitamin tablet 1 tab PO QAM Qty: 90 RF: 3 thiamine HCl (vitamin B1) 100 mg tablet 100 mg PO DAILY Qty: 90 RF: 3 Symbicort 10.2 GM HFA aerosol inhaler 10.2 gm Inhalation BID Qty: 3 RF: 3 Spiriva with HandiHaler 30 CAP/INH capsule, w/inhalation device 1 cap Inhalation DAILY RF: 0 OptiChamber Advantage 1 EACH spacer 1 ea Miscellaneous DIRECTED RF: 0 albuterol sulfate 2.5 MG/3 ML solution for nebulization 2.5 mg Inhalation Q4H PRN PRN (Reason: Shortness Of Breath) 30 Days RF: 0 nicotine 21 mg/24 hr Patch 24 Hour 21 mg Transdermal DAILY Qty: 30 RF: 0 magnesium citrate solution 120 ml PO DAILY PRN (Reason: constipation) Qty: 296 RF: 0 Discharge Instructions Additional Instructions: Your chest x-ray showed no new masses and continues to demonstrate your known right upper lung mass. Please follow-up with Dr. Chow in clinic. Continue all of your regular medications Medical Decision Making 63-year-old male presents from home via EMS after waking this morning with both anxiety and transient tightness across his chest which he has had on numerous occasions in the past. He is afebrile, well-appearing, speaking in full sentences with normal oxygenation and an unremarkable exam. He is not tachycardic or hypoxic. CXR obtained and patient given 0.5mg Ativan CXR: Focal right upper lobe lung opacity has been characterized on a recent CT scan. No acute findings. Patient improved, consistent with mild anxiety. I will have him follow-up with Dr. Chow in clinic HPI General Mode of arrival: EMS . Date/Time Provider Initiated Documentation: 09/03/18 06:06 . Limitations to Documentation: no limitations . Information obtained by: patient . History of Present Illness 63 year old M presents to the emergency department with the chief complaint of Tightness across chest, improving, described as similar to prior episodes, Quality is described as dull, and is localized to the chest. Patient reports no radiation. Patient started experiencing this hour(s) and it has been now resolved. No relieving factors improve symptom(s), No exacerbating factors reported . Patient notes other (Feeling anxious. No chest pain). Patient did receive the following treatments prior to arrival, none Related Data Home Medications Medication Instructions Recorded Confirmed Symbicort 10.2 gm INHALATION BID #3 inhaler 06/20/17 08/31/18 Spiriva with HandiHaler 1 cap INHALATION DAILY 09/29/17 08/31/18 OptiChamber Advantage kit 10/15/17 08/15/18 albuterol sulfate 2.5 mg INHALATION Q4H PRN PRN 30 10/15/17 08/31/18 Days ml nicotine 21 mg TRANSDERMAL DAILY #30 ea 06/29/18 08/31/18 albuterol sulfate HFA 90 2 puff INHALATION Q4H PRN PRN #1 07/02/18 08/31/18 mcg/actuation aerosol inhaler inh cetirizine 10 mg capsule 10 mg PO DAILY cap 07/02/18 08/31/18 multivitamin tablet 1 tab PO QAM #90 tab 07/02/18 08/31/18 thiamine HCl (vitamin B1) 100 mg 100 mg PO DAILY #90 tab 07/02/18 08/31/18 tablet pantoprazole 40 mg tablet,delayed 40 mg PO DAILY #90 tab 07/11/18 08/31/18 release quetiapine 25 mg tablet 25 mg PO QHS #90 tab 07/11/18 08/31/18 magnesium citrate 120 ml PO DAILY PRN #296 ml 08/31/18 Previous Rx's Medication Instructions Recorded Symbicort 10.2 gm INHALATION BID #3 inhaler 06/20/17 OptiChamber Advantage kit 10/15/17 albuterol sulfate 2.5 mg INHALATION Q4H PRN PRN 30 10/15/17 Days ml nicotine 21 mg TRANSDERMAL DAILY #30 ea 06/29/18 albuterol sulfate HFA 90 2 puff INHALATION Q4H PRN PRN #1 07/02/18 mcg/actuation aerosol inhaler inh multivitamin tablet 1 tab PO QAM #90 tab 07/02/18 thiamine HCl (vitamin B1) 100 mg 100 mg PO DAILY #90 tab 07/02/18 tablet pantoprazole 40 mg tablet,delayed 40 mg PO DAILY #90 tab 07/11/18 release quetiapine 25 mg tablet 25 mg PO QHS #90 tab 07/11/18 magnesium citrate 120 ml PO DAILY PRN #296 ml 08/31/18 Allergies Allergy/AdvReac Type Severity Reaction Status Date / Time No Known Allergies Allergy Verified 08/31/18 15:31 General FLASH: 3 Review of Systems Review of Systems 6 systems reviewed and otherwise negative. Patient states recently diagnosed with new spot on his lung [facility] Medical History COPD (chronic obstructive pulmonary disease) (Chronic) Adjustment disorder with anxiety (Acute) Dyspepsia (Acute) Malignant neoplasm of right lung (Acute) Tubular adenoma of colon (Acute) Alcohol abuse (Chronic) Anxiety (Chronic) Surgical History History of lung biopsy (Resolved) History of surgery on upper extremity (Resolved) colonoscopy (01/19/15) Family History Father Essential hypertension Hyperlipidemia Paternal Uncle Heart disease Stroke Cerebral hemorrhage Hypertension Brother Cancer Social History Smoking/Tobacco Use Status: Former Tobacco Use Alcohol Intake: former Drug use: Never Substance use type: does not use Adopted: No Foster care: No Household members: family Housing: house current occupation: not working What type of physical activity do you participate in: none and other Details: started lifting weights Frequency: daily Seatbelt use: always 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 Pleasant, well groomed, interactive. HEAD: Normocephalic, atraumatic ENT: Mucous membranes moist, oropharynx unremarkable, External ear exam unremarkable EYES: PERRL, EOMI NECK: Full ROM, no URSZULA, no menigismus CHEST/RESP: Nontender, clear to auscultation bilateral, no wheeze/rhonchi/rales CARDIOVASCULAR: RRR, no murmur, rub jeannie. 2+ Rad pulse bilateral ABDOMEN: Soft, nontender, no mass. +Bowel sounds EXT: Full ROM, no edema, no rash Neuro: Grossly normal neurologic exam, conversant, interactive. Psych: Speech fluent, thoughts congruent, affect normal
[2018-09-03 05:52] VITALS: RESP 20
--- NOTE | 2018-09-03 06:00 | DI.RAD_ITS ---
SYMPTOM/DIAGNOSIS: TIGHTNESS IN CHEST, NEW MASS PA AND LATERAL CHEST: The examination is compared with previous examination of 08/09/18. Note is again made of previously described right upper lobe opacity which is more dense on the current examination. This had a mass-like appearance on CT of 08/24/18. No additional changes are seen. Lungs otherwise appear clear. No significant pleural effusion identified. CONCLUSION: Interval increase in size of right upper lobe opacity, the patient reportedly has a history of lung carcinoma.
--- NOTE | 2018-09-03 06:19 | DI.VRAD_ITS ---
EXAM: XR Chest, 2 Views EXAM DATE/TIME: 09/03/2018 6:02 AM CLINICAL HISTORY: 63 years old, male; Signs and symptoms; Other: Tightness, congestion; Prior surgery; Surgery date: 6+ months; Surgery type: HX of r lung CA. ; Patient HX: Tightness and congestion in chest. Worse today. PT states may have a new mass or it may be a lesion from prior radiation therapy TECHNIQUE: Imaging protocol: XR of the chest, 2 views. COMPARISON: CR Chest 08/09/2018 2:02 PM FINDINGS: Lungs: Focal opacity in the right upper lobe. Pleural space: Unremarkable. No evidence of pneumothorax. Heart/Mediastinum: Unremarkable. Heart size within normal limits for technique. Bones/joints: Unremarkable. IMPRESSION: Focal right upper lobe lung opacity has been characterized on a recent CT scan. No acute findings. Dictated and Authenticated by: Aj Terry MD. Ordering:ADELE Mckoy MD
[2018-09-03 06:43] VITALS: BP 150/88; PULSE 70; RESP 18; O2SAT 100
== END 2018-09-03 06:43 | disposition home or self-care (01) ==
LOC: ER 06:50
PROVIDERS: Emergency Provider Emergency Medicine; PCP Internal Medicine
DX: F41.9 Anxiety disorder, unspecified (principal); C34.91 Malignant neoplasm of unspecified part of right bronchus or lung
CPT/HCPCS: 99283; 71046

== ENCOUNTER 2018-09-05 07:19 | Emergency (ER) | payer MEDICAID, SELFPAY ==
[2018-09-05 07:20] VITALS: BP 138/92; PULSE 66; RESP 16; TEMP 36.7; O2SAT 100
--- NOTE | 2018-09-05 08:02 | DI.CT_ITS ---
SYMPTOM/DIAGNOSIS: INFRAUMBILICAL AND RLQ PAIN,. H/O CA ABDOMEN AND PELVIC CT: The study was carried out with an intravenous injection of 100 cc's of Omnipaque 350. Comparison is made with the previous study of 08/31/18. The lung bases are unremarkable. There is no pleural effusion. The heart is not enlarged. There is no pericardial effusion. The liver appears intact save for a small radiolucency in the superior portion of the right hepatic lobe which was demonstrated on the prior examination and likely represents a small hemangioma or cyst. The gallbladder is intact. The pancreas is intact. Again suggested is a small fluid collection adjacent to the posterior body of the pancreas in the region of the superior mesenteric artery. The spleen is normal. The kidneys are intact. The adrenals are unremarkable. There is no evidence of bowel obstruction. There is no evidence of an acute appendix. There is no evidence of free fluid or free air in the intraperitoneal space. The reproductive organs as visualized appear intact. The bladder is unremarkable. There are atherosclerotic changes involving the aorta without evidence of an aneurysm. 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 A narrowed vacuum disc and associated degenerative bony changes are identified at L 4-5. SUMMARY: No significant interval change when compared with the previous study of 08/31/18. No evidence of an acute abdomen.
[2018-09-05 08:03] LABS: Abs Immature Grans 0.01 k/cumm (0.0-0.09); Absolute Basophil Count 0.02 k/cumm (0.0-0.2); Absolute Eosinophil Count 0.08 k/cumm (0.0-0.7); Absolute Lymphocyte Count 1.16 k/cumm (1.2-3.4); Absolute Monocyte Count 0.57 k/cumm (0.11-0.7); Absolute Neutrophil Count 2.93 k/cumm (1.2-6.7); Basophils % 0.4; Eosinophils % 1.7; HCT 40.6 % (40.0-50.0); HGB 13.6 g/dL (13.5-17.5); Immature Grans % 0.2; Lymphocytes % 24.3; Mean Corp. HGB Concentration 33.5 g/dL (32.0-36.0); Mean Corpuscular Hemoglobin 29.9 pg (27.0-33.0); Mean Corpuscular Volume 89.2 fL (80-95); Mean Platelet Volume 10.4 fL (8.0-11.0); Monocytes % 11.9; Neutrophils % 61.5; Platelet Count 218 x1000/uL (130-400); RBC 4.55 m/cumm (4.50-6.00); RBC Distribution Width 12.9 % (11.8-14.1); White Blood Cell Count 4.77 k/cumm (4.4-10.8)
--- NOTE | 2018-09-05 08:08 | ED.GENADUL_ITS ---
Discharge Plan Disposition Patient Disposition: HOME Condition: Good Discharge Details Chief Complaint: Abd Prob Clinical Impression: Abdominal pain Primary Care Provider: Deborah Chow ED Provider: Pedro Nichole Home Meds and New Rx's Prescriptions: No Action quetiapine 25 mg tablet 25 mg PO QHS Qty: 90 RF: 0 pantoprazole 40 mg tablet,delayed release (DR/EC) 40 mg PO DAILY Qty: 90 RF: 3 cetirizine 10 mg capsule 10 mg PO DAILY RF: 0 albuterol sulfate [ProAir HFA] 90 mcg/actuation HFA aerosol inhaler 2 puff Inhalation Q4H PRN PRN (Reason: Shortness Of Breath) Qty: 1 RF: 1 multivitamin tablet 1 tab PO QAM Qty: 90 RF: 3 thiamine HCl (vitamin B1) 100 mg tablet 100 mg PO DAILY Qty: 90 RF: 3 Symbicort 10.2 GM HFA aerosol inhaler 10.2 gm Inhalation BID Qty: 3 RF: 3 Spiriva with HandiHaler 30 CAP/INH capsule, w/inhalation device 1 cap Inhalation DAILY RF: 0 OptiChamber Advantage 1 EACH spacer 1 ea Miscellaneous DIRECTED RF: 0 albuterol sulfate 2.5 MG/3 ML solution for nebulization 2.5 mg Inhalation Q4H PRN PRN (Reason: Shortness Of Breath) 30 Days RF: 0 nicotine 21 mg/24 hr Patch 24 Hour 21 mg Transdermal DAILY Qty: 30 RF: 0 magnesium citrate solution 120 ml PO DAILY PRN (Reason: constipation) Qty: 296 RF: 0 Discharge Instructions Instructions: Abdominal Pain (ED) Additional Instructions: Please drink 10-12 cups of water per day. Please take Tylenol as needed for pain. If you notice any worsening of your symptoms, or any new symptoms such as vomiting, diarrhea, fever, chills, shortness of breath, chest pain, numbness, weakness, or fainting , please return immediately to the emergency department for reevaluation. Please follow up with your primary care provider as soon as possible for reassessment and reevaluation. As always, it was a pleasure participating in your medical care today. Referrals: Deborah Chow MD [Primary Care Provider] - Medical Decision Making This is a pleasant 63-year-old male with a past medical history of COPD, chronic alcoholism for which his last drink was 14 weeks ago, and a history of lung cancer presents for abdominal pain in the infraumbilical and right lower quadrant. Been present for the last day. He denies any aggravating or relieving factors. Food does not seem to be associated with it. No urinary symptoms, genital exam is benign. Due to the patient's age, and history of cancer, as well as his lack of abdominal surgeries we will get a CT scan to rule out appendicitis, will get UA to evaluate for UTI or kidney stone. We will rehydrate, and treat with Toradol for pain. Control. 9:40 AM Patient's laboratory workup has returned relatively unremarkable. No white count, no significant left shift, no bandemia. Electrolytes are within normal limits, renal function stable. Lipase is minimally elevated at 400 and not clinically consistent with his severe pancreatitis. Urinalysis is negative for signs of infection, or hematuria. On reassessment the patient's symptoms have completely resolved with NSAID therapy. This morning CT scan results have returned, and per radiology there is no acute process, no evidence of appendicitis in the abdomen. With resolution of the patient's symptoms, he did tolerate p.o. here well, I feel he can be safely discharged home with close follow-up. Symptoms may be secondary to mild muscle strain or mild gastritis. I have extensively reviewed the treatment plan and discharge instructions with the patient. I have addressed all patient concerns at this time. The patient was made aware of what symptoms to monitor for that would warrant a return to the emergency department. Discussed the plan with the patient, they demonstrate verbal understanding and agreement with our assessment and plan at this time. HPI General Date/Time Provider Initiated Documentation: 09/05/18 07:33 . HPI Narrative: This is a 63-year-old male with a past medical history of COPD, lung cancer, chronic alcoholism, last drink was 14 weeks ago who presents today for evaluation of abdominal pain. Patient states that for the last day he has had mild infraumbilical and right lower quadrant abdominal pain. He has had a decreased appetite because of this. He has had no associated vomiting or diarrhea. He denies any melena, acholic stool, hematochezia, or hematemesis. Pain is made slightly worse with movement. He denies any dysuria, hematuria or increased urinary frequency. He denies any fever or chills. He denies any testicular or groin pain. He denies any previous abdominal surgeries he denies any significant chest pain, arm neck or shoulder pain, or headache. He has no other complaints or modifying factors at this time. He has not taken anything for the pain. Related Data Home Medications Medication Instructions Recorded Confirmed Symbicort 10.2 gm INHALATION BID #3 inhaler 06/20/17 09/05/18 Spiriva with HandiHaler 1 cap INHALATION DAILY 09/29/17 09/05/18 OptiChamber Advantage kit 10/15/17 08/15/18 albuterol sulfate 2.5 mg INHALATION Q4H PRN PRN 30 10/15/17 09/05/18 Days ml nicotine 21 mg TRANSDERMAL DAILY #30 ea 06/29/18 09/05/18 albuterol sulfate HFA 90 2 puff INHALATION Q4H PRN PRN #1 07/02/18 09/05/18 mcg/actuation aerosol inhaler inh cetirizine 10 mg capsule 10 mg PO DAILY cap 07/02/18 09/05/18 multivitamin tablet 1 tab PO QAM #90 tab 07/02/18 09/05/18 thiamine HCl (vitamin B1) 100 mg 100 mg PO DAILY #90 tab 07/02/18 09/05/18 tablet pantoprazole 40 mg tablet,delayed 40 mg PO DAILY #90 tab 07/11/18 09/05/18 release quetiapine 25 mg tablet 25 mg PO QHS #90 tab 07/11/18 09/05/18 magnesium citrate 120 ml PO DAILY PRN #296 ml 08/31/18 09/05/18 Previous Rx's Medication Instructions Recorded Symbicort 10.2 gm INHALATION BID #3 inhaler 06/20/17 OptiChamber Advantage kit 10/15/17 albuterol sulfate 2.5 mg INHALATION Q4H PRN PRN 30 10/15/17 Days ml nicotine 21 mg TRANSDERMAL DAILY #30 ea 06/29/18 albuterol sulfate HFA 90 2 puff INHALATION Q4H PRN PRN #1 07/02/18 mcg/actuation aerosol inhaler inh multivitamin tablet 1 tab PO QAM #90 tab 07/02/18 thiamine HCl (vitamin B1) 100 mg 100 mg PO DAILY #90 tab 07/02/18 tablet pantoprazole 40 mg tablet,delayed 40 mg PO DAILY #90 tab 07/11/18 release quetiapine 25 mg tablet 25 mg PO QHS #90 tab 07/11/18 magnesium citrate 120 ml PO DAILY PRN #296 ml 08/31/18 Allergies Allergy/AdvReac Type Severity Reaction Status Date / Time No Known Allergies Allergy Verified 09/05/18 07:25 General Stated Complaint: Abd Prob FLASH: 3 Review of Systems Review of Systems All systems reviewed & are unremarkable except as noted in HPI and below PFSH Social History Smoking/Tobacco Use Status: Former Tobacco Use Alcohol Intake: former Drug use: Never Substance use type: does not use Adopted: No Foster care: No Household members: family Housing: house current occupation: not working What type of physical activity do you participate in: none and other Details: started lifting weights Frequency: daily Seatbelt use: always Drive intox or ride w/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 3.ENT: Atraumatic external nose and ears. Moist MM. Neck: Symmetric, trachea midline, No thyromegaly. 4.CVS: +S1/S2, No murmurs or gallops. Peripheral pulses 2+ and equal in all extremities. Brisk capillary refill in all extremities. 5.RESP: Unlabored respiratory effort. Clear to auscultation bilaterally. No wheezes rales or rhonchi 6.GI: Soft,Nondistended, No hepatosplenomegaly. No guarding or rebound. No mild pain in the right lower quadrant and infraumbilical region on palpation. No pain in the left lower quadrant, negative Coates sign. No pain in the left upper quadrant. No left or right CVA tenderness. Negative obturator and psoas sign. No testicular tenderness, normal cremasteric reflex bilaterally. 7.MSK: Normocephalic/Atraumatic, Extremities w/o deformity or ttp No cyanosis or clubbing, Normal movement of all extremities 8.Skin: Warm, Dry. No rashes or lesions. 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 Sensation grossly intact, no focal neurologic deficits. 10.Psych: (AAO) x3. Appropriate mood and affect Course Vital Signs Temperature 36.7 C 09/05/18 07:20 Pulse 66 09/05/18 07:20 Respiratory Rate 16 09/05/18 07:20 Blood Pressure 138/92 H 09/05/18 07:20 Pulse Oximetry 100 09/05/18 07:20 Temperature 36.7 C 09/05/18 07:20 Temperature Source Temporal Artery Scan 09/05/18 07:20 Pulse 66 09/05/18 07:20 Respiratory Rate 16 09/05/18 07:20 Respiratory Effort Non-Labored 09/05/18 07:23 Blood Pressure 138/92 H 09/05/18 07:20 Blood Pressure Position Sitting 09/05/18 07:20 Pulse Oximetry 100 09/05/18 07:20 Oxygen Delivery Method Room Air 09/05/18 07:20 Oxygen Flow Rate 0 09/05/18 07:20 Pain Level 7 09/05/18 07:20
[2018-09-05 08:13] LABS: Bilirubin Negative (Negative); Blood Negative (Negative); Clarity Clear; Glucose Negative (Negative); Ketones Negative (Negative); Leukocyte Esterase Negative (Negative); Nitrite Negative (Negative); Specific Gravity 1.015 (1.005-1.025); Urobilinogen 0.2 EU/dL (Up TO 0.2); pH 8.5 (5-8)
[2018-09-05] MEDS: Ketorolac 15 MG/ML VIAL IVP (08:14)
[2018-09-05] MEDS: Normal Saline 1,000 ML 1000 ML IV (08:14)
[2018-09-05 08:17] LABS: ALT 17 U/L (12-78); AST 17 U/L (15-37); Albumin 3.3 g/dL (3.4-5.0); Alkaline Phosphatase 82 U/L (46-116); Anion Gap 8.8 mmol/L (3-11); BUN 7 mg/dL (7-18); Bilirubin, Total 0.7 mg/dL (0.2-1.0); CO2 28.2 mmol/L (21.0-32.0); CREATININE 0.95 mg/dL (0.70-1.30); Chloride 103 mmol/L (98-107); Glucose 92 mg/dL (70-100); Lipase 400 U/L (73-393); Potassium 3.5 mmol/L (3.5-5.1); Sodium 140 mmol/L (136-145); Total Protein 7.3 g/dL (6.4-8.2)
[2018-09-05 08:22] LABS: Calcium 8.3 mg/dL (8.5-10.1)
[2018-09-05] MEDS: Omnipaque 350 MG/ML 100 ML BTL IV (08:57)
[2018-09-05 10:05] VITALS: BP 153/91; PULSE 63; RESP 16; TEMP 36.7; O2SAT 99
== END 2018-09-05 10:17 | disposition home or self-care (01) ==
PROVIDERS: Emergency Provider Student in an Organized Health Care Education/Training Program; PCP Internal Medicine
DX: R10.31 Right lower quadrant pain (principal)
CPT/HCPCS: 36415; 80053; 83690; 96361; 96374; 99285; 74177; 81003; 85025; 99284; J1885; J3490

== ENCOUNTER 2018-09-09 18:28 | Emergency (ER) | payer MEDICAID, SELFPAY ==
[2018-09-09 18:31] VITALS: BP 150/66; PULSE 87; RESP 18; TEMP 36.4; O2SAT 98
--- NOTE | 2018-09-09 18:43 | DI.RAD_ITS ---
SYMPTOMS/DIAGNOSIS: COUGH, CONGESTION, COPD PA AND LATERAL CHEST: Comparison is 09/03/09. The heart size and pulmonary vasculature are within normal limits. The right upper lobe opacity is unchanged compared to 09/03/18. The lungs are otherwise clear. No effusions or pneumothoraces are identified. The bones appear unremarkable. IMPRESSION: Stable right upper lobe opacity.
--- NOTE | 2018-09-09 18:46 | ED.GENADUL_ITS ---
Discharge Plan Disposition Patient Disposition: HOME Condition: Improving Discharge Details Chief Complaint: RespSymp Clinical Impression: Acute bronchitis Primary Care Provider: Deborah Chow ED Provider: Ean Lyons Home Meds and New Rx's Prescriptions: New azithromycin 250 mg tablet 250 mg PO DAILY 4 Days Qty: 4 RF: 0 Continued quetiapine 25 mg tablet 25 mg PO QHS Qty: 90 RF: 0 pantoprazole 40 mg tablet,delayed release (DR/EC) 40 mg PO DAILY Qty: 90 RF: 3 cetirizine 10 mg capsule 10 mg PO DAILY RF: 0 albuterol sulfate [ProAir HFA] 90 mcg/actuation HFA aerosol inhaler 2 puff Inhalation Q4H PRN PRN (Reason: Shortness Of Breath) Qty: 1 RF: 1 multivitamin tablet 1 tab PO QAM Qty: 90 RF: 3 thiamine HCl (vitamin B1) 100 mg tablet 100 mg PO DAILY Qty: 90 RF: 3 Symbicort 10.2 GM HFA aerosol inhaler 10.2 gm Inhalation BID Qty: 3 RF: 3 Spiriva with HandiHaler 30 CAP/INH capsule, w/inhalation device 1 cap Inhalation DAILY RF: 0 OptiChamber Advantage 1 EACH spacer 1 ea Miscellaneous DIRECTED RF: 0 albuterol sulfate 2.5 MG/3 ML solution for nebulization 2.5 mg Inhalation Q4H PRN PRN (Reason: Shortness Of Breath) 30 Days RF: 0 nicotine 21 mg/24 hr Patch 24 Hour 21 mg Transdermal DAILY Qty: 30 RF: 0 guaifenesin [Mucus Relief] 400 mg Tablet 400 mg PO Q4H PRNRF: 0 Discontinued hydroxyzine pamoate [Vistaril] 25 mg Capsule 25 mg PO DAILY PRNRF: 0 Discharge Instructions Instructions: Acute Bronchitis (ED) Additional Instructions: Do not take your Vistaril/hydroxyzine while taking the antibiotic. Take antibiotics as prescribed with next dose tomorrow. Follow-up with Dr. Chow for recheck if not improving in 5 days time. Return to the emergency department for any acute concern Medical Decision Making 63-year-old male with COPD presents with 1 day history of cough and congestion with production of sputum. Feels mild wheezing at home it was refractive to his home medications. He arrives with no fever, normal pulse, blood pressure 150/66 breathing 98% on room air, speaking in full sentences. Referred for chest x-ray and given DuoNeb. Chest x-ray without acute focal infiltrate. Known right upper lobe mass not significantly changed. Patient improved with single DuoNeb. He does appear to be developing a bronchitis given his underlying COPD I will opt to treat with a course of antibiotics. He is stable and improving. HPI General Mode of arrival: ambulatory . Date/Time Provider Initiated Documentation: 09/09/18 18:38 . Limitations to Documentation: no limitations . Information obtained by: patient . History of Present Illness 63 year old M presents to the emergency department with the chief complaint of Cough and congestion times 1 day., described as moderate, Quality is described as dull and constant, and is localized to the chest. Patient reports no radiation. Patient started experiencing this hour(s) and it has been constant. No relieving factors improve symptom(s), No exacerbating factors reported . Patient notes cough and other (congestion). Related Data Home Medications Medication Instructions Recorded Confirmed Symbicort 10.2 gm INHALATION BID #3 inhaler 06/20/17 09/09/18 Spiriva with HandiHaler 1 cap INHALATION DAILY 09/29/17 09/05/18 OptiChamber Advantage kit 10/15/17 08/15/18 albuterol sulfate 2.5 mg INHALATION Q4H PRN PRN 30 10/15/17 09/09/18 Days ml nicotine 21 mg TRANSDERMAL DAILY #30 ea 06/29/18 09/09/18 albuterol sulfate HFA 90 2 puff INHALATION Q4H PRN PRN #1 07/02/18 09/09/18 mcg/actuation aerosol inhaler inh cetirizine 10 mg capsule 10 mg PO DAILY cap 07/02/18 09/05/18 multivitamin tablet 1 tab PO QAM #90 tab 07/02/18 09/09/18 thiamine HCl (vitamin B1) 100 mg 100 mg PO DAILY #90 tab 07/02/18 09/09/18 tablet pantoprazole 40 mg tablet,delayed 40 mg PO DAILY #90 tab 07/11/18 09/05/18 release quetiapine 25 mg tablet 25 mg PO QHS #90 tab 07/11/18 09/09/18 azithromycin 250 mg PO DAILY 4 Days #4 tab 09/09/18 guaifenesin [Mucus Relief] 400 mg PO Q4H PRN 09/09/18 09/09/18 Previous Rx's Medication Instructions Recorded Symbicort 10.2 gm INHALATION BID #3 inhaler 06/20/17 OptiChamber Advantage kit 10/15/17 albuterol sulfate 2.5 mg INHALATION Q4H PRN PRN 30 10/15/17 Days ml nicotine 21 mg TRANSDERMAL DAILY #30 ea 06/29/18 albuterol sulfate HFA 90 2 puff INHALATION Q4H PRN PRN #1 07/02/18 mcg/actuation aerosol inhaler inh multivitamin tablet 1 tab PO QAM #90 tab 07/02/18 thiamine HCl (vitamin B1) 100 mg 100 mg PO DAILY #90 tab 07/02/18 tablet pantoprazole 40 mg tablet,delayed 40 mg PO DAILY #90 tab 07/11/18 release quetiapine 25 mg tablet 25 mg PO QHS #90 tab 07/11/18 azithromycin 250 mg PO DAILY 4 Days #4 tab 09/09/18 Allergies Allergy/AdvReac Type Severity Reaction Status Date / Time No Known Allergies Allergy Verified 09/09/18 18:33 General Stated Complaint: RespSymp FLASH: 4 Review of Systems Review of Systems 6 systems reviewed and otherwise - PFSH Social History Smoking/Tobacco Use Status: Former Tobacco Use Alcohol Intake: former Drug use: Never Substance use type: does not use Adopted: No Foster care: No Household members: family Housing: house current occupation: not working What type of physical activity do you participate in: none and other Details: started lifting weights Frequency: daily Seatbelt use: always Drive intox or ride w/intox bus 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 Pleasant, well groomed, interactive. HEAD: Normocephalic, atraumatic ENT: Mucous membranes moist, oropharynx unremarkable, External ear exam unremarkable EYES: PERRL, EOMI NECK: Full ROM, no URSZULA, no menigismus CHEST/RESP: Nontender, clear to auscultation bilateral, no wheeze/rhonchi/rales. Slightly diminished josé miguel CARDIOVASCULAR: RRR, no murmur, rub jeannie. 2+ Rad pulse bilateral ABDOMEN: Soft, nontender, no mass. +Bowel sounds EXT: Full ROM, no edema, no rash Neuro: Grossly normal neurologic exam, conversant, interactive. Psych: Speech fluent, thoughts congruent, affect normal Course Vital Signs Temperature 36.4 C L 09/09/18 18:31 Pulse 87 09/09/18 18:31 Respiratory Rate 18 09/09/18 18:31 Blood Pressure 150/66 H 09/09/18 18:31 Pulse Oximetry 98 09/09/18 18:31 Temperature 36.4 C L 09/09/18 18:31 Temperature Source Skin 09/09/18 18:31 Pulse 87 09/09/18 18:31 Respiratory Rate 18 09/09/18 18:31 Respiratory Effort Non-Labored 09/09/18 18:38 Blood Pressure 150/66 H 09/09/18 18:31 Blood Pressure Position Sitting 09/09/18 18:31 Pulse Oximetry 98 09/09/18 18:31 Oxygen Delivery Method Room Air 09/09/18 18:31 Oxygen Flow Rate 0 09/09/18 18:31 Pain Level 0 09/09/18 18:31
[2018-09-09] MEDS: Albuterol/Ipratropium 3 ML UPD VIAL UPD (18:50)
[2018-09-09 19:34] VITALS: BP 130/71; PULSE 92; RESP 20; TEMP 36.9; O2SAT 97
[2018-09-09] MEDS: Azithromycin 250 MG TAB 500 MG PO (19:37)
--- NOTE | 2018-09-09 20:07 | DI.VRAD_ITS ---
EXAM: XR Chest, 2 Views EXAM DATE/TIME: 09/09/2018 6:44 PM CLINICAL HISTORY: 63 years old, male; Signs and symptoms; Cough and other: Congestion and copd; Patient HX: Cough, copd, congestion TECHNIQUE: Imaging protocol: XR of the chest, 2 views. COMPARISON: CR XR CHEST 2V PA LATERAL 09/03/2018 5:55 AM FINDINGS: Lungs: Redemonstration of the right upper lobe consolidation and opacification. No consolidation. Pleural space: Unremarkable. No pleural effusion. No pneumothorax. Heart/Mediastinum: Unremarkable. No cardiomegaly. Bones/joints: Unremarkable. IMPRESSION: Similar appearance of the right upper lobe opacification. No acute changes. Dictated and Authenticated by: Juan Antonio Reyes MD. Ordering:ADELE Mckoy MD
== END 2018-09-09 20:34 | disposition home or self-care (01) ==
LOC: ER 19:44
PROVIDERS: Emergency Provider Emergency Medicine; PCP Internal Medicine
DX: J20.9 Acute bronchitis, unspecified (principal)
CPT/HCPCS: 94640; 99283; 71046; J7620

== ENCOUNTER 2018-09-15 05:38 | Emergency (ER) | payer MEDICAID, SELFPAY ==
[2018-09-15 05:40] VITALS: BP 128/92; PULSE 75; RESP 20; TEMP 36.6; O2SAT 97
--- NOTE | 2018-09-15 06:00 | ED.GENADUL_ITS ---
Discharge Plan Disposition Patient Disposition: HOME Condition: Good Discharge Details Chief Complaint: RespSymp Clinical Impression: Anxiety Primary Care Provider: Deborah Chow ED Provider: Daren Chiang [place] Meds and New Rx's Prescriptions: Continued pantoprazole 40 mg tablet,delayed release (DR/EC) 40 mg PO DAILY Qty: 90 RF: 3 cetirizine 10 mg capsule 10 mg PO DAILY RF: 0 albuterol sulfate [ProAir HFA] 90 mcg/actuation HFA aerosol inhaler 2 puff Inhalation Q4H PRN PRN (Reason: Shortness Of Breath) Qty: 1 RF: 1 multivitamin tablet 1 tab PO QAM Qty: 90 RF: 3 thiamine HCl (vitamin B1) 100 mg tablet 100 mg PO DAILY Qty: 90 RF: 3 Symbicort 10.2 GM HFA aerosol inhaler 10.2 gm Inhalation BID Qty: 3 RF: 3 Spiriva with HandiHaler 30 CAP/INH capsule, w/inhalation device 1 cap Inhalation DAILY RF: 0 OptiChamber Advantage 1 EACH spacer 1 ea Miscellaneous DIRECTED RF: 0 albuterol sulfate 2.5 MG/3 ML solution for nebulization 2.5 mg Inhalation Q4H PRN PRN (Reason: Shortness Of Breath) 30 Days RF: 0 guaifenesin [Mucus Relief] 400 mg Tablet 400 mg PO Q4H PRNRF: 0 Changed quetiapine 25 mg tablet 50 mg PO QHS Qty: 90 RF: 0 hydroxyzine HCl 25 mg Tablet 25 mg PO Q8H PRN PRNQty: 0 RF: 0 Discharge Instructions Instructions: Anxiety (ED) Additional Instructions: Your vital signs, exam, EKG are fine this morning. You have had previous workup in the last 2 weeks including CAT scans, chest x-ray, laboratory studies which have been fine. I would restart your hydroxyzine to help with anxiety. Use your inhaler as needed for shortness of breath. Continue the increased dose of Seroquel for sleep. Follow-up with your counselor this coming week. Follow-up with primary care. Return to ED if you develop fever, worsening shortness of breath that does not respond to inhaler, chest pain, vomiting, new or worsening abdominal pain. Referrals: Deborah Chow MD [Primary Care Provider] - Medical Decision Making Patient presenting to ED with complaints of congestion and shortness of breath. Patient with multiple visits within the last few weeks. Suspect this is all related to anxiety and him stressing over the fact that his lung mass apparently got larger. He was supposed to have increased his Seroquel to 50 mg at night per PCP notes but he has not done this. He was also off his hydroxyzine while on azithromycin and has not restarted that. He has had 2 chest x-rays, 2 CAT scans of the abdomen pelvis, laboratory studies in the last few weeks. He is not complaining of pain currently. States he feels congested and that something is wrong. I did obtain EKG which is unchanged from previous. His vital signs are normal. His lungs are clear. I do not feel further evaluation in the ED is warranted. I do think this is all been anxiety driven. Recommend that he start taking his hydroxyzine again as well as increasing his Seroquel as previously directed by his PCP. Refer back to PCP for follow-up. Follow-up with his counselor who he sees on a weekly basis. We discussed that may be in the morning when he wakes up feeling like this prior to calling EMS he should use his inhaler, go outside and get some fresh air and possibly take his hydroxyzine before calling for EMS. He should return to ED if he develops fever, worsening shortness of breath that does not respond to treatments, chest pain, vomiting, worsening abdominal pain. Medical Records Medical records reviewed: Yes I reviewed the patient's medical records. ECG Data Attestation: I personally reviewed and interpreted this ECG (s) as follows: Prior ECG tracings: available for review Interpretation: Sinus rhythm at 73. Normal axis and intervals. Normal ST segments. No change from previous. HPI General Mode of arrival: EMS . Date/Time Provider Initiated Documentation: 09/15/18 06:00 . Limitations to Documentation: no limitations . Information obtained by: patient and old records reviewed . HPI Narrative: Patient is brought into the ED this morning with complaints of shortness of breath and congestion. Patient is well-known to me. He has had frequent visits to the ED in the last couple of weeks. I have had extensive dealings with him from previous visits this winter. He states that he woke up this morning and d id not feel well. He feels like he has congestion and that the recent antibiotics he just finished are not helping. He was given a DuoNeb by EMS. He was transported here without incident. He does not complain of pain. He complains of congestion and feeling little short of breath. Patient has known lung cancer. At the end of August he was followed up at [facility]. At that time it was felt that his lung mass was worse and not better after radiation. He is scheduled for a PET scan later this month. Subsequent to that patient has had multiple ED visits. On August 31 he was in the ED with abdominal pain with unremarkable labs and negative CT scan. On September 03 he was in the ED with shortness of breath with an unchanged chest x-ray. On 09/05 he was at back in the ED with abdominal pain again with unremarkable labs and negative CT scan. On the he was back with shortness of breath and cough. Chest x-ray was unchanged. He was started on Zithromax which he finished yesterday. On the he was seen by his primary care. Today he returns to ED. He admits to high anxiety and being stressed out about the mass being larger. Related Data Home Medications Medication Instructions Recorded Confirmed Symbicort 10.2 gm INHALATION BID #3 inhaler 06/20/17 09/15/18 Spiriva with HandiHaler 1 cap INHALATION DAILY 09/29/17 09/15/18 OptiChamber Advantage kit 10/15/17 09/15/18 albuterol sulfate 2.5 mg INHALATION Q4H PRN PRN 30 10/15/17 09/15/18 Days ml albuterol sulfate HFA 90 2 puff INHALATION Q4H PRN PRN #1 07/02/18 09/15/18 mcg/actuation aerosol inhaler inh cetirizine 10 mg capsule 10 mg PO DAILY cap 07/02/18 09/12/18 multivitamin tablet 1 tab PO QAM #90 tab 07/02/18 09/15/18 thiamine HCl (vitamin B1) 100 mg 100 mg PO DAILY #90 tab 07/02/18 09/15/18 tablet pantoprazole 40 mg tablet,delayed 40 mg PO DAILY #90 tab 07/11/18 09/15/18 release guaifenesin [Mucus Relief] 400 mg PO Q4H PRN 09/09/18 09/15/18 hydroxyzine HCl 25 mg PO Q8H PRN PRN #0 tab 09/15/18 09/15/18 quetiapine 50 mg PO QHS #90 tab 09/15/18 09/15/18 Previous Rx's Medication Instructions Recorded Symbicort 10.2 gm INHALATION BID #3 inhaler 06/20/17 OptiChamber Advantage kit 10/15/17 albuterol sulfate 2.5 mg INHALATION Q4H PRN PRN 30 10/15/17 Days ml albuterol sulfate HFA 90 2 puff INHALATION Q4H PRN PRN #1 07/02/18 mcg/actuation aerosol inhaler inh multivitamin tablet 1 tab PO QAM #90 tab 07/02/18 thiamine HCl (vitamin B1) 100 mg 100 mg PO DAILY #90 tab 07/02/18 tablet pantoprazole 40 mg tablet,delayed 40 mg PO DAILY #90 tab 07/11/18 release hydroxyzine HCl 25 mg PO Q8H PRN PRN #0 tab 09/15/18 quetiapine 50 mg PO QHS #90 tab 09/15/18 Allergies Allergy/AdvReac Type Severity Reaction Status Date / Time No Known Allergies Allergy Verified 09/15/18 05:50 General Stated Complaint: RespSymp FLASH: 3 Review of Systems Review of Systems As documented in HPI otherwise negative as below. Const: no fever, chills, weakness Resp: + cough and SOB; - pleuritic pain CV: no CP, diaphoresis, edema, syncope GI: no abdominal pain, nausea, vomiting, diarrhea Neuro: no headache, numbness, focal weakness, confusion PFSH Medical History COPD (chronic obstructive pulmonary disease) (Chronic) Adjustment disorder with anxiety (Chronic) Alcohol abuse (Chronic) Anxiety (Chronic) Dyspepsia (Chronic) Malignant neoplasm of right lung (Chronic) Tubular adenoma of colon (Inactive) Surgical History History of lung biopsy (Resolved) History of surgery on upper extremity (Resolved) colonoscopy (Inactive 01/19/15) Social History Smoking/Tobacco Use Status: Former Tobacco Use Alcohol Intake: former Drug use: Never Substance use type: does not use Details: 15 weeks sober Adopted: No Foster care: No Household members: family Housing: house Number of Children: 0 current occupation: not working What type of physical activity do you participate in: none and other Details: started lifting weights Frequency: daily Seatbelt use: always Drive intox or ride w/intox 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 HEENT: NC/AT. Normal facial exam. Eyes: Normal conjunctiva and sclera. Neck: Supple. Trachea midline. Lungs: Normal respiratory effort. Lungs are clear. There is no wheeze, rhonchi, rales or congestion heard. Cor: RRR without murmur/gallop. Good radial pulses. GI: Soft. NT/ND. No guarding or rebound. Neuro: A+O x 3. CN grossly in tact. Good strength and no focal deficit. Course Vital Signs Temperature 97.9 F 09/15/18 05:40 Pulse 75 09/15/18 05:40 Respiratory Rate 20 09/15/18 05:40 Blood Pressure 128/92 H 09/15/18 05:40 Pulse Oximetry 97 09/15/18 05:40 Temperature 97.9 F 09/15/18 05:40 Temperature Source Temporal Artery Scan 09/15/18 05:40 Pulse 75 09/15/18 05:40 Respiratory Rate 20 09/15/18 05:40 Respiratory Effort 09/15/18 05:47 Respiratory Depth Shallow 09/15/18 05:47 Blood Pressure 128/92 H 09/15/18 05:40 Blood Pressure Position Sitting 09/15/18 05:40 Pulse Oximetry 97 09/15/18 05:40 Oxygen Delivery Method Room Air 09/15/18 05:40 Oxygen Flow Rate 0 09/15/18 05:40 End Tidal Co2 0 09/15/18 05:40 Pain Level 0 09/15/18 05:40
[2018-09-15 06:26] VITALS: BP 128/77; PULSE 75; RESP 20; TEMP 36.6; O2SAT 97
== END 2018-09-15 06:22 | disposition home or self-care (01) ==
PROVIDERS: Emergency Provider Emergency Medicine; PCP Internal Medicine
DX: F41.9 Anxiety disorder, unspecified (principal)
CPT/HCPCS: 93005; 99283; 93010

== ENCOUNTER 2018-09-21 06:42 | Emergency (ER) | payer MEDICAID, SELFPAY ==
--- NOTE | 2018-09-21 06:53 | ED.GENADUL_ITS ---
Discharge Plan Disposition Patient Disposition: HOME Condition: Good Discharge Details Chief Complaint: Abd Prob Clinical Impression: Epigastric abdominal pain Primary Care Provider: Deborah Chow ED Provider: Daren Chiang [place] Meds and New Rx's Prescriptions: Continued pantoprazole 40 mg tablet,delayed release (DR/EC) 40 mg PO DAILY Qty: 90 RF: 3 cetirizine 10 mg capsule 10 mg PO DAILY RF: 0 albuterol sulfate [ProAir HFA] 90 mcg/actuation HFA aerosol inhaler 2 puff Inhalation Q4H PRN PRN (Reason: Shortness Of Breath) Qty: 1 RF: 1 multivitamin tablet 1 tab PO QAM Qty: 90 RF: 3 thiamine HCl (vitamin B1) 100 mg tablet 100 mg PO DAILY Qty: 90 RF: 3 Symbicort 10.2 GM HFA aerosol inhaler 10.2 gm Inhalation BID Qty: 3 RF: 3 Spiriva with HandiHaler 30 CAP/INH capsule, w/inhalation device 1 cap Inhalation DAILY RF: 0 OptiChamber Advantage 1 EACH spacer 1 ea Miscellaneous DIRECTED RF: 0 albuterol sulfate 2.5 MG/3 ML solution for nebulization 2.5 mg Inhalation Q4H PRN PRN (Reason: Shortness Of Breath) 30 Days RF: 0 guaifenesin [Mucus Relief] 400 mg Tablet 400 mg PO Q4H PRNRF: 0 quetiapine 25 mg tablet 50 mg PO QHS Qty: 90 RF: 0 hydroxyzine HCl 25 mg Tablet 25 mg PO Q8H PRN PRNQty: 0 RF: 0 Discharge Instructions Additional Instructions: Continue medications as before. Keep your follow-up appointment next week. Return to the emergency department if you develop fever, chest pain, persistent shortness of breath, no abdominal pain, vomiting, other concerns. Referrals: Deborah Chow MD [Primary Care Provider] - Medical Decision Making Patient looks well. His lungs are clear. His abdomen is benign. He has repeated visits over the last few weeks with complaints either of feeling short of breath or having abdominal pain. He had been doing well over the last few months until recently. I asked him why in the last few weeks he has been coming back to the ED by ambulance every morning. He states he just gets scared and anxious especially when nobody is home. There are no new symptoms or complaints. I am going to try a GI cocktail. He is already had a neb treatment by EMS. Patient reports relief of his abdominal discomfort with a GI cocktail. He states he feels better. He has follow-up with primary next week. Return to ED for fever, chest pain, vomiting, persistent shortness of breath, new or worsening abdominal pain. Medical Records Medical records reviewed: Yes I reviewed the patient's medical records. HPI General Mode of arrival: EMS . Date/Time Provider Initiated Documentation: 09/21/18 06:49 . Limitations to Documentation: no limitations . Information obtained by: patient and old records reviewed . HPI Narrative: Patient presenting to ED by ambulance with complaints of nausea and not feeling well. He has some epigastric abdominal pain. He had some shortness of breath. He has been presenting to the ED recently for similar complaints. I just saw him last week. There is definitely anxiety involved. He did receive a breathing treatment in route again. He does not have any chest pain. He has had no vomiting or diarrhea. Continues to abstain from alcohol. There is no radiation of the pain. Related Data Home Medications Medication Instructions Recorded Confirmed Symbicort 10.2 gm INHALATION BID #3 inhaler 06/20/17 09/15/18 Spiriva with HandiHaler 1 cap INHALATION DAILY 09/29/17 09/15/18 OptiChamber Advantage kit 10/15/17 09/15/18 albuterol sulfate 2.5 mg INHALATION Q4H PRN PRN 30 10/15/17 09/15/18 Days ml albuterol sulfate HFA 90 2 puff INHALATION Q4H PRN PRN #1 07/02/18 09/15/18 mcg/actuation aerosol inhaler inh cetirizine 10 mg capsule 10 mg PO DAILY cap 07/02/18 09/12/18 multivitamin tablet 1 tab PO QAM #90 tab 07/02/18 09/15/18 thiamine HCl (vitamin B1) 100 mg 100 mg PO DAILY #90 tab 07/02/18 09/15/18 tablet pantoprazole 40 mg tablet,delayed 40 mg PO DAILY #90 tab 07/11/18 09/15/18 release guaifenesin [Mucus Relief] 400 mg PO Q4H PRN 09/09/18 09/15/18 hydroxyzine HCl 25 mg PO Q8H PRN PRN #0 tab 09/15/18 09/15/18 quetiapine 50 mg PO QHS #90 tab 09/15/18 09/15/18 Previous Rx's Medication Instructions Recorded Symbicort 10.2 gm INHALATION BID #3 inhaler 06/20/17 OptiChamber Advantage kit 10/15/17 albuterol sulfate 2.5 mg INHALATION Q4H PRN PRN 30 10/15/17 Days ml albuterol sulfate HFA 90 2 puff INHALATION Q4H PRN PRN #1 07/02/18 mcg/actuation aerosol inhaler inh multivitamin tablet 1 tab PO QAM #90 tab 07/02/18 thiamine HCl (vitamin B1) 100 mg 100 mg PO DAILY #90 tab 07/02/18 tablet pantoprazole 40 mg tablet,delayed 40 mg PO DAILY #90 tab 07/11/18 release hydroxyzine HCl 25 mg PO Q8H PRN PRN #0 tab 09/15/18 quetiapine 50 mg PO QHS #90 tab 09/15/18 Allergies Allergy/AdvReac Type Severity Reaction Status Date / Time No Known Allergies Allergy Verified 09/15/18 05:50 General FLASH: 3 Review of Systems Review of Systems As documented in HPI otherwise negative as below. Const: no fever, chills, weakness Resp: SOB; no cough, pleuritic pain CV: no CP, diaphoresis, edema, syncope GI: nausea, abdominal pain; no vomiting, diarrhea Neuro: no headache, numbness, focal weakness, confusion PFSH Social History Smoking/Tobacco Use Status: Former Tobacco Use Alcohol Intake: former Drug use: Never Substance use type: does not use Details: 15 weeks sober Adopted: No Foster care: No Household members: family Housing: house Number of Children: 0 current occupation: not working What type of physical activity do you participate in: none and other Details: started lifting weights Frequency: daily Seatbelt use: always Drive intox 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 Const: WDWN male in NAD. HEENT: NC/AT. Normal facial exam. Eyes: Normal conjunctiva and sclera. Neck: Supple. Trachea midline. Lungs: Normal respiratory effort. Lungs are clear. Cor: RRR without murmur/gallop. Good radial pulses. GI: Soft. NT/ND. No guarding or rebound. Neuro: A+O x 3. CN grossly in tact. Good strength and no focal deficit. Ext: No C/C/E. No deformity or tenderness.
[2018-09-21 07:00] VITALS: BP 123/56; PULSE 77; RESP 18; TEMP 36.8; O2SAT 98
[2018-09-21 07:16] VITALS: BP 123/56; PULSE 77; RESP 18; TEMP 36.8; O2SAT 98
--- NOTE | 2018-09-23 07:34 | NUR.NOTE ---
Nursing Note: Referral faxed to [facility] for follow up. Desi Crawford.
== END 2018-09-21 07:20 | disposition home or self-care (01) ==
PROVIDERS: Emergency Provider Emergency Medicine; PCP Internal Medicine
DX: R10.13 Epigastric pain (principal); F41.9 Anxiety disorder, unspecified; K52.9 Noninfective gastroenteritis and colitis, unspecified; T48.6X5A Adverse effect of antiasthmatics, initial encounter

== ENCOUNTER 2018-09-21 11:25 | Emergency (ER) | payer MEDICAID, SELFPAY ==
[2018-09-21] VITALS (18 sets, daily range): BP systolic 126–144; BP diastolic 82–94; PULSE 61–76; RESP 9–24; TEMP 37; O2SAT 95–99
--- NOTE | 2018-09-21 11:51 | ED.GENADUL_ITS ---
Discharge Plan Disposition Patient Disposition: HOME Condition: Stable Discharge Details Chief Complaint: Chest Pain Clinical Impression: Gastritis Primary Care Provider: Deborah Chow ED Provider: Mj Chen Home Meds and New Rx's Prescriptions: Continued cetirizine 10 mg capsule 10 mg PO DAILY RF: 0 albuterol sulfate [ProAir HFA] 90 mcg/actuation HFA aerosol inhaler 2 puff Inhalation Q4H PRN PRN (Reason: Shortness Of Breath) Qty: 1 RF: 1 multivitamin tablet 1 tab PO QAM Qty: 90 RF: 3 thiamine HCl (vitamin B1) 100 mg tablet 100 mg PO DAILY Qty: 90 RF: 3 Spiriva with HandiHaler 30 CAP/INH capsule, w/inhalation device 1 cap Inhalation DAILY RF: 0 OptiChamber Advantage 1 EACH spacer 1 ea Miscellaneous DIRECTED RF: 0 albuterol sulfate 2.5 MG/3 ML solution for nebulization 2.5 mg Inhalation Q4H PRN PRN (Reason: Shortness Of Breath) 30 Days RF: 0 guaifenesin [Mucus Relief] 400 mg Tablet 400 mg PO Q4H PRNRF: 0 quetiapine 25 mg tablet 50 mg PO QHS Qty: 90 RF: 0 hydroxyzine HCl 25 mg Tablet 25 mg PO Q8H PRN PRNQty: 0 RF: 0 pantoprazole 40 mg tablet,delayed release (DR/EC) 40 mg PO DAILY Qty: 90 RF: 3 Symbicort 10.2 GM HFA aerosol inhaler 10.2 gm Inhalation BID Qty: 3 RF: 3 Discharge Instructions Instructions: Gastritis (ED) Medical Decision Making 63 yo male comes in with epigastric burning. He has had this off and on per pt for a few months and has been seen numerous times for similar symptoms including this morning and normally improves with gi cocktail. Denies any anterior chest pain or pressure, n/v or diaphoresis or radiation, no pain with exertion sodoubt acs at this time. normal vascular exam and no tearing back pain so doubt dissection. No hypoxia or tachycardia or evidence of dvt on exam so doubt PE. He has mild epigastric discomfort without guarding or rrebound, negative pressley's sign so doubt gallbladder disease. Will tx with gi cocktail and monitor. pt feels better and denies any pain now, apparently hasn't had his symbicort or ppi for quite some time. will d/c home and advised f/u with pcp and return precautions given Differential Diagnosis gerd, gastritis, chest wall pain ECG Data Attestation: I personally reviewed and interpreted this ECG (s) as follows: Prior ECG tracings: available for review Interpretation: sinus rhythm, rate of 70, pr 158, no acute st t wave ischemic changes HPI General Mode of arrival: ambulatory . Date/Time Provider Initiated Documentation: 09/21/18 11:26 . Limitations to Documentation: no limitations . Information obtained by: patient . History of Present Illness 63 year old M presents to the emergency department with the chief complaint of epigastric pain, described as mild, Quality is described as burning, and is localized to the abdomen. Patient reports no radiation. Patient started experiencing this month(s) (1) and it has been constant. No relieving factors improve symptom(s), No exacerbating factors reported . Patient notes no other symptoms.. Patient did receive the following treatments prior to arrival, none Related Data Home Medications Medication Instructions Recorded Confirmed Spiriva with HandiHaler 1 cap INHALATION DAILY 09/29/17 09/15/18 OptiChamber Advantage kit 10/15/17 09/15/18 albuterol sulfate 2.5 mg INHALATION Q4H PRN PRN 30 10/15/17 09/21/18 Days ml albuterol sulfate HFA 90 2 puff INHALATION Q4H PRN PRN #1 07/02/18 09/21/18 mcg/actuation aerosol inhaler inh cetirizine 10 mg capsule 10 mg PO DAILY cap 07/02/18 09/12/18 multivitamin tablet 1 tab PO QAM #90 tab 07/02/18 09/21/18 thiamine HCl (vitamin B1) 100 mg 100 mg PO DAILY #90 tab 07/02/18 09/15/18 tablet guaifenesin [Mucus Relief] 400 mg PO Q4H PRN 09/09/18 09/21/18 hydroxyzine HCl 25 mg PO Q8H PRN PRN #0 tab 09/15/18 09/21/18 quetiapine 50 mg PO QHS #90 tab 09/15/18 09/21/18 Symbicort 10.2 gm INHALATION BID #3 inhaler 09/21/18 pantoprazole 40 mg PO DAILY #90 tab 09/21/18 Previous Rx's Medication Instructions Recorded OptiChamber Advantage kit 10/15/17 albuterol sulfate 2.5 mg INHALATION Q4H PRN PRN 30 10/15/17 Days ml albuterol sulfate HFA 90 2 puff INHALATION Q4H PRN PRN #1 07/02/18 mcg/actuation aerosol inhaler inh multivitamin tablet 1 tab PO QAM #90 tab 07/02/18 thiamine HCl (vitamin B1) 100 mg 100 mg PO DAILY #90 tab 07/02/18 tablet hydroxyzine HCl 25 mg PO Q8H PRN PRN #0 tab 09/15/18 quetiapine 50 mg PO QHS #90 tab 09/15/18 Symbicort 10.2 gm INHALATION BID #3 inhaler 09/21/18 pantoprazole 40 mg PO DAILY #90 tab 09/21/18 Allergies Allergy/AdvReac Type Severity Reaction Status Date / Time No Known Allergies Allergy Verified 09/21/18 11:43 General Stated Complaint: Chest Pain FLASH: 2 Review of Systems Review of Systems All systems reviewed & are unremarkable except as noted in HPI and below Constitutional Denies chills and Denies fever(s) ENT Denies change in voice Cardiovascular Denies dyspnea Respiratory Denies cough and Denies dyspnea Gastrointestinal Denies nausea and Denies vomiting Musculoskeletal Denies joint swelling PFS Medical History COPD (chronic obstructive pulmonary disease) (Chronic) Adjustment disorder with anxiety (Chronic) Alcohol abuse (Chronic) Anxiety (Chronic) Dyspepsia (Chronic) Malignant neoplasm of right lung (Chronic) Tubular adenoma of colon (Inactive) Surgical History History of lung biopsy (Resolved) History of surgery on upper extremity (Resolved) colonoscopy (Inactive 01/19/15) Family History Father Essential hypertension Hyperlipidemia Paternal Uncle Heart disease Stroke Cerebral hemorrhage Hypertension Brother Cancer Social History Smoking/Tobacco Use Status: Former Tobacco Use Alcohol Intake: former Drug use: Never Substance use type: does not use Details: 16 weeks sober Adopted: No Foster care: No Household members: family Housing: house Number of Children: 0 current occupation: not working What type of physical activity do you participate in: none and other Details: started lifting weights Frequency: daily Seatbelt use: always 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 Water heater temp set <120 deg: Yes Working smoke detector in home: Yes Fire extinguisher in home: Yes Carbon monox detector in home: Yes Firearms in home: Yes Do you feel safe at home: Yes Do you feel safe in your relationship?: Yes Exam Const General: no acute distress Orientation: alert HENMT Head: normal to inspection Ears: external ears normal General nose exam: external nose normal Mouth: moist mucous membranes Eyes General: appearance normal, both eyes and all related structures Neck Neck: normal visual inspection Resp Effort & Inspection: normal respiratory effort and able to speak in complete sentences Cardio Rate: regular rate GI Palpation: soft Skin General skin exam: no rashes or lesions noted Neuro General: alert and oriented x3 Extrem General: normal to inspection Psych Mental Status: mental status grossly normal Course Vital Signs Temperature 37 C 09/21/18 11:37 Pulse 74 09/21/18 11:37 Respiratory Rate 15 09/21/18 11:37 Blood Pressure 126/83 09/21/18 11:37 Pulse Oximetry 98 09/21/18 11:37 Temperature 37 C 09/21/18 11:37 Temperature Source Temporal Artery Scan 09/21/18 11:37 Pulse 74 09/21/18 11:37 Respiratory Rate 15 09/21/18 11:40 Respiratory Effort Non-Labored 09/21/18 11:40 Respiratory Depth Normal 09/21/18 11:40 Respiratory Pattern Normal 09/21/18 11:40 Blood Pressure 126/83 09/21/18 11:37 Blood Pressure Position Supine 09/21/18 11:37 Pulse Oximetry 98 09/21/18 11:37 Oxygen Delivery Method Room Air 09/21/18 11:37 Oxygen Flow Rate 0 09/21/18 11:37 Pain Level 6 09/21/18 11:37
== END 2018-09-21 12:55 | disposition home or self-care (01) ==
PROVIDERS: Emergency Provider Emergency Medicine; PCP Internal Medicine
DX: K29.70 Gastritis, unspecified, without bleeding; J44.9 Chronic obstructive pulmonary disease, unspecified

== ENCOUNTER 2018-09-21 16:41 | Emergency (ER) | payer MEDICAID, SELFPAY ==
--- NOTE | 2018-09-21 16:45 | NUR.NOTE ---
pt was seen here today received albuterol after with pt noticed he was shaking he called his PCP and was told to go immediately to the ER DR Chow
[2018-09-21 16:46] VITALS: BP 162/102; PULSE 103; RESP 17; TEMP 36.6; O2SAT 99
[2018-09-21] MEDS: LORazepam 1 MG TAB PO (16:58)
--- NOTE | 2018-09-21 16:58 | ED.GENADUL_ITS ---
Discharge Plan Disposition Patient Disposition: HOME Condition: Stable Discharge Details Chief Complaint: GenMedical Clinical Impression: Medication side effect Primary Care Provider: Deborah Chow ED Provider: Mj Chen Home Meds and New Rx's Prescriptions: New lorazepam [Ativan] 1 mg tablet 1 mg PO BID-TID PRN (Reason: anxiety) Qty: 10 RF: 0 No Action cetirizine 10 mg capsule 10 mg PO DAILY RF: 0 albuterol sulfate [ProAir HFA] 90 mcg/actuation HFA aerosol inhaler 2 puff Inhalation Q4H PRN PRN (Reason: Shortness Of Breath) Qty: 1 RF: 1 multivitamin tablet 1 tab PO QAM Qty: 90 RF: 3 thiamine HCl (vitamin B1) 100 mg tablet 100 mg PO DAILY Qty: 90 RF: 3 Spiriva with HandiHaler 30 CAP/INH capsule, w/inhalation device 1 cap Inhalation DAILY RF: 0 OptiChamber Advantage 1 EACH spacer 1 ea Miscellaneous DIRECTED RF: 0 albuterol sulfate 2.5 MG/3 ML solution for nebulization 2.5 mg Inhalation Q4H PRN PRN (Reason: Shortness Of Breath) 30 Days RF: 0 guaifenesin [Mucus Relief] 400 mg Tablet 400 mg PO Q4H PRNRF: 0 quetiapine 25 mg tablet 50 mg PO QHS Qty: 90 RF: 0 hydroxyzine HCl 25 mg Tablet 25 mg PO Q8H PRN PRNQty: 0 RF: 0 pantoprazole 40 mg tablet,delayed release (DR/EC) 40 mg PO DAILY Qty: 90 RF: 3 Symbicort 10.2 GM HFA aerosol inhaler 10.2 gm Inhalation BID Qty: 3 RF: 3 Discharge Instructions Additional Instructions: use the lorazepam as needed for tremors/anxiety follow up with your primary care provider within 1-2 weeks try not to use your albuterol at the same time as your other nebulizer/inhalres Medical Decision Making 63 yo male comes in with complaints of feeling jittery and anxious after using albuterol. He is in no distress though appears anxious on exam, denies chest pain, states this started about a few minutes after using albuterol neb. Denies chest pain, sob or other drug use. Does have some mild tremors of his hand otherwise clear lnugs, soft abodmen. Suspect medication reaction vs anxiety. Will treat with prn ativan and return precautions given Differential Diagnosis med reaction, anxiety HPI General Mode of arrival: ambulatory . Date/Time Provider Initiated Documentation: 09/21/18 16:47 . Limitations to Documentation: no limitations . Information obtained by: patient . History of Present Illness 63 year old M presents to the emergency department with the chief complaint of jittery, described as moderate, Patient started experiencing this hour(s) (1) and it has been constant. No relieving factors improve symptom(s), No exacerbating factors reported . Patient notes no other symptoms.. Patient did receive the following treatments prior to arrival, none Related Data Home Medications Medication Instructions Recorded Confirmed Spiriva with HandiHaler 1 cap INHALATION DAILY 09/29/17 09/15/18 OptiChamber Advantage kit 10/15/17 09/15/18 albuterol sulfate 2.5 mg INHALATION Q4H PRN PRN 30 10/15/17 09/21/18 Days ml albuterol sulfate HFA 90 2 puff INHALATION Q4H PRN PRN #1 07/02/18 09/21/18 mcg/actuation aerosol inhaler inh cetirizine 10 mg capsule 10 mg PO DAILY cap 07/02/18 09/12/18 multivitamin tablet 1 tab PO QAM #90 tab 07/02/18 09/21/18 thiamine HCl (vitamin B1) 100 mg 100 mg PO DAILY #90 tab 07/02/18 09/15/18 tablet guaifenesin [Mucus Relief] 400 mg PO Q4H PRN 09/09/18 09/21/18 hydroxyzine HCl 25 mg PO Q8H PRN PRN #0 tab 09/15/18 09/21/18 quetiapine 50 mg PO QHS #90 tab 09/15/18 09/21/18 Symbicort 10.2 gm INHALATION BID #3 inhaler 09/21/18 lorazepam [Ativan] 1 mg PO BID-TID PRN #10 tab 09/21/18 pantoprazole 40 mg PO DAILY #90 tab 09/21/18 Previous Rx's Medication Instructions Recorded OptiChamber Advantage kit 10/15/17 albuterol sulfate 2.5 mg INHALATION Q4H PRN PRN 30 10/15/17 Days ml albuterol sulfate HFA 90 2 puff INHALATION Q4H PRN PRN #1 07/02/18 mcg/actuation aerosol inhaler inh multivitamin tablet 1 tab PO QAM #90 tab 07/02/18 thiamine HCl (vitamin B1) 100 mg 100 mg PO DAILY #90 tab 07/02/18 tablet hydroxyzine HCl 25 mg PO Q8H PRN PRN #0 tab 09/15/18 quetiapine 50 mg PO QHS #90 tab 09/15/18 Symbicort 10.2 gm INHALATION BID #3 inhaler 09/21/18 lorazepam [Ativan] 1 mg PO BID-TID PRN #10 tab 09/21/18 pantoprazole 40 mg PO DAILY #90 tab 09/21/18 Allergies Allergy/AdvReac Type Severity Reaction Status Date / Time No Known Allergies Allergy Verified 09/21/18 11:43 General Stated Complaint: GenMedical FLASH: 4 Review of Systems Review of Systems All systems reviewed & are unremarkable except as noted in HPI and below Constitutional Denies chills, Denies fever(s) and Denies weakness ENT Denies change in voice Cardiovascular Denies chest pain and Denies dyspnea Respiratory Denies cough and Denies dyspnea Gastrointestinal Denies nausea and Denies vomiting Genitourinary Denies dysuria Integumentary/Breasts Denies rash Neurologic Denies weakness Endocrine Denies heat intolerance PFS Social History Smoking/Tobacco Use Status: Former Tobacco Use Alcohol Intake: former Drug use: Never Substance use type: does not use Details: 16 weeks sober Adopted: No Foster care: No Household members: family Housing: house Number of Children: 0 current occupation: not working What type of physical activity do you participate in: none and other Details: started lifting weights Frequency: daily Seatbelt use: always 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 Water heater temp set <120 deg: Yes Working smoke detector in home: Yes Fire extinguisher in home: Yes Carbon monox detector in home: Yes Firearms in home: Yes Do you feel safe at home: Yes Do you feel safe in your relationship?: Yes Exam Const General: anxious Orientation: alert HENMT Head: normal to inspection Ears: external ears normal General nose exam: external nose normal Mouth: moist mucous membranes Eyes General: appearance normal, both eyes and all related structures Neck Neck: normal visual inspection Resp Effort & Inspection: normal respiratory effort and able to speak in complete sentences Cardio Rate: regular rate Skin General skin exam: no rashes or lesions noted Neuro General: alert and oriented x3 Extrem General: normal to inspection Psych Mental Status: mental status grossly normal Course Vital Signs Temperature 36.6 C 09/21/18 16:46 Pulse 103 H 09/21/18 16:46 Respiratory Rate 17 09/21/18 16:46 Blood Pressure 162/102 H 09/21/18 16:46 Pulse Oximetry 99 09/21/18 16:46 Temperature 36.6 C 09/21/18 16:46 Temperature Source Skin 09/21/18 16:46 Pulse 103 H 09/21/18 16:46 Respiratory Rate 17 09/21/18 16:46 Blood Pressure 162/102 H 09/21/18 16:46 Blood Pressure Position Sitting 09/21/18 16:46 Pulse Oximetry 99 09/21/18 16:46 Oxygen Delivery Method Room Air 09/21/18 16:46 Oxygen Flow Rate 0 09/21/18 16:46 Pain Level 0 09/21/18 16:46
[2018-09-21 17:04] VITALS: BP 160/98; PULSE 90; RESP 17; TEMP 36.6; O2SAT 99
== END 2018-09-21 17:05 | disposition home or self-care (01) ==
PROVIDERS: Emergency Provider Emergency Medicine; PCP Internal Medicine
DX: T48.6X5A Adverse effect of antiasthmatics, initial encounter (principal); F41.9 Anxiety disorder, unspecified
CPT/HCPCS: 93005; 99283; 93010

== ENCOUNTER 2018-09-25 14:52 | Emergency (ER) | payer MEDICAID, SELFPAY ==
[2018-09-25] VITALS (9 sets, daily range): BP systolic 130–140; BP diastolic 83–88; PULSE 67–78; RESP 15–27; TEMP 36.8; O2SAT 97–100
--- NOTE | 2018-09-25 15:01 | W.ED.GENAD ---
Discharge Plan Disposition Patient Disposition: HOME Condition: Improving Discharge Details Chief Complaint: GenMedical Clinical Impression: Anxiety, Chronic obstructive pulmonary disease Primary Care Provider: Deborah Chow ED Provider: Ean Lyons Home Meds and New Rx's Prescriptions: Continued cetirizine 10 mg capsule 10 mg PO DAILY RF: 0 albuterol sulfate [ProAir HFA] 90 mcg/actuation HFA aerosol inhaler 2 puff Inhalation Q4H PRN PRN (Reason: Shortness Of Breath) Qty: 1 RF: 1 multivitamin tablet 1 tab PO QAM Qty: 90 RF: 3 thiamine HCl (vitamin B1) 100 mg tablet 100 mg PO DAILY Qty: 90 RF: 3 Spiriva with HandiHaler 30 CAP/INH capsule, w/inhalation device 1 cap Inhalation DAILY RF: 0 OptiChamber Advantage 1 EACH spacer 1 ea Miscellaneous DIRECTED RF: 0 albuterol sulfate 2.5 MG/3 ML solution for nebulization 2.5 mg Inhalation Q4H PRN PRN (Reason: Shortness Of Breath) 30 Days RF: 0 guaifenesin [Mucus Relief] 400 mg Tablet 400 mg PO Q4H PRNRF: 0 quetiapine 25 mg tablet 50 mg PO QHS Qty: 90 RF: 0 hydroxyzine HCl 25 mg Tablet 25 mg PO Q8H PRN PRNQty: 0 RF: 0 lorazepam [Ativan] 1 mg tablet 1 mg PO BID-TID PRN (Reason: anxiety) Qty: 10 RF: 0 pantoprazole 40 mg tablet,delayed release (DR/EC) 40 mg PO DAILY Qty: 90 RF: 3 Symbicort 10.2 GM HFA aerosol inhaler 10.2 gm Inhalation BID Qty: 3 RF: 3 Discharge Instructions Instructions: COPD (Chronic Obstructive Pulmonary Disease) (ED), Anxiety (ED) Additional Instructions: You may use your rescue inhaler as discussed with Mela from respiratory failure. Home to rest today. Continue all of your regularly prescribed medications. Please follow-up with Dr. Chow in clinic for routine care. Medical Decision Making 63-year-old male presents from home with chest tightness, anxiety, small bit of nausea. Self it did begin after raking leaves, he did not use his rescue inhaler, is now improved. Certainly has a component of anxiety. He is given an oral Ativan, he was interviewed by respiratory therapy and is encouraged to improve outpatient management of his reactive airway disease. Remained stable with normal vital signs. No further work-up indicated at this time. ECG Data Attestation: I personally reviewed and interpreted this ECG (s) as follows: Interpretation: Normal sinus rhythm with a rate of 78, the QRS is narrow, there is no ST segment elevation. HPI General Mode of arrival: ambulatory. Date/Time Provider Initiated Documentation: 09/25/18 14:54. Limitations to Documentation: no limitations. Information obtained by: patient. History of Present Illness 63 year old M presents to the emergency department with the chief complaint of Chest tightness and nausea, improving, described as similar to prior episodes, Quality is described as dull, and is localized to the chest. Patient reports no radiation. Patient started experiencing this minute(s) and it has been now resolved. No relieving factors improve symptom(s), No exacerbating factors reported . Patient notes shortness of breath; denies chest pain. Patient did receive the following treatments prior to arrival, none Related Data Home Medications Medication Instructions Recorded Confirmed Spiriva with HandiHaler 1 cap INHALATION DAILY 09/29/17 09/15/18 OptiChamber Advantage kit 10/15/17 09/15/18 albuterol sulfate 2.5 mg INHALATION Q4H PRN PRN 30 10/15/17 09/21/18 Days ml albuterol sulfate HFA 90 2 puff INHALATION Q4H PRN PRN #1 07/02/18 09/21/18 mcg/actuation aerosol inhaler inh cetirizine 10 mg capsule 10 mg PO DAILY cap 07/02/18 09/12/18 multivitamin tablet 1 tab PO QAM #90 tab 07/02/18 09/21/18 thiamine HCl (vitamin B1) 100 mg 100 mg PO DAILY #90 tab 07/02/18 09/15/18 tablet guaifenesin [Mucus Relief] 400 mg PO Q4H PRN 09/09/18 09/21/18 hydroxyzine HCl 25 mg PO Q8H PRN PRN #0 tab 09/15/18 09/21/18 quetiapine 50 mg PO QHS #90 tab 09/15/18 09/21/18 Symbicort 10.2 gm INHALATION BID #3 inhaler 09/21/18 lorazepam [Ativan] 1 mg PO BID-TID PRN #10 tab 09/21/18 pantoprazole 40 mg PO DAILY #90 tab 09/21/18 Previous Rx's Medication Instructions Recorded Cynthiaber Advantage kit 10/15/17 albuterol sulfate 2.5 mg INHALATION Q4H PRN PRN 30 10/15/17 Days ml albuterol sulfate HFA 90 2 puff INHALATION Q4H PRN PRN #1 07/02/18 mcg/actuation aerosol inhaler inh multivitamin tablet 1 tab PO QAM #90 tab 07/02/18 thiamine HCl (vitamin B1) 100 mg 100 mg PO DAILY #90 tab 07/02/18 tablet hydroxyzine HCl 25 mg PO Q8H PRN PRN #0 tab 09/15/18 quetiapine 50 mg PO QHS #90 tab 09/15/18 Symbicort 10.2 gm INHALATION BID #3 inhaler 09/21/18 lorazepam [Ativan] 1 mg PO BID-TID PRN #10 tab 09/21/18 pantoprazole 40 mg PO DAILY #90 tab 09/21/18 Allergies Allergy/AdvReac Type Severity Reaction Status Date / Time No Known Allergies Allergy Verified 09/21/18 11:43 General Stated Complaint: GenMedical FLASH: 3 Review of Systems Review of Systems 6 systems reviewed and otherwise negative [facility] Medical History COPD (chronic obstructive pulmonary disease) (Chronic) Adjustment disorder with anxiety (Chronic) Alcohol abuse (Chronic) Anxiety (Chronic) Dyspepsia (Chronic) Malignant neoplasm of right lung (Chronic) Tubular adenoma of colon (Inactive) Surgical History History of lung biopsy (Resolved) History of surgery on upper extremity (Resolved) colonoscopy (Inactive 01/19/15) Family History Father Essential hypertension Hyperlipidemia Paternal Uncle Heart disease Stroke Cerebral hemorrhage Hypertension Brother Cancer Social History Smoking/Tobacco Use Status: Current every day Tobacco Type: smokeless tobacco Alcohol Intake: former Drug use: Never Substance use type: does not use Details: 16 weeks sober Adopted: No Foster care: No Household members: family Housing: house Number of Children: 0 current occupation: not working What type of physical activity do you participate in: none and other Details: started lifting weights Frequency: daily Seatbelt use: always 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 Pleasant, well groomed, interactive. HEAD: Normocephalic, atraumatic ENT: Mucous membranes moist, oropharynx unremarkable, External ear exam unremarkable EYES: PERRL, EOMI NECK: Full ROM, no USRZULA, no menigismus CHEST/RESP: Nontender, clear to auscultation bilateral, no wheeze/rhonchi/rales CARDIOVASCULAR: RRR, no murmur, rub jeannie. 2+ Rad pulse bilateral ABDOMEN: Soft, nontender, no mass. +Bowel sounds EXT: Full ROM, no edema, no rash Neuro: Grossly normal neurologic exam, conversant, interactive. Psych: Speech fluent, thoughts congruent, affect anxious Course Vital Signs Temperature 36.8 C 09/25/18 14:56 Pulse 78 09/25/18 14:56 Respiratory Rate 18 09/25/18 14:56 Blood Pressure 140/85 09/25/18 14:56 Pulse Oximetry 98 09/25/18 14:56 Temperature 36.8 C 09/25/18 14:56 Temperature Source Temporal Artery Scan 09/25/18 14:56 Pulse 78 09/25/18 14:56 Respiratory Rate 18 09/25/18 14:56 Blood Pressure 140/85 09/25/18 14:56 Blood Pressure Position Supine 09/25/18 14:56 Pulse Oximetry 98 09/25/18 14:56 Oxygen Delivery Method Room Air 09/25/18 14:56 Oxygen Flow Rate 0 09/25/18 14:56 Pain Level 7 09/25/18 14:56
--- NOTE | 2018-09-25 15:05 | ED.GENADUL_ITS ---
Discharge Plan Disposition Patient Disposition: HOME Condition: Improving Discharge Details Chief Complaint: GenMedical Clinical Impression: Anxiety, Chronic obstructive pulmonary disease Primary Care Provider: Deborah Chow ED Provider: Ean Lyons Home Meds and New Rx's Prescriptions: Continued cetirizine 10 mg capsule 10 mg PO DAILY RF: 0 albuterol sulfate [ProAir HFA] 90 mcg/actuation HFA aerosol inhaler 2 puff Inhalation Q4H PRN PRN (Reason: Shortness Of Breath) Qty: 1 RF: 1 multivitamin tablet 1 tab PO QAM Qty: 90 RF: 3 thiamine HCl (vitamin B1) 100 mg tablet 100 mg PO DAILY Qty: 90 RF: 3 Spiriva with HandiHaler 30 CAP/INH capsule, w/inhalation device 1 cap Inhalation DAILY RF: 0 OptiChamber Advantage 1 EACH spacer 1 ea Miscellaneous DIRECTED RF: 0 albuterol sulfate 2.5 MG/3 ML solution for nebulization 2.5 mg Inhalation Q4H PRN PRN (Reason: Shortness Of Breath) 30 Days RF: 0 guaifenesin [Mucus Relief] 400 mg Tablet 400 mg PO Q4H PRNRF: 0 quetiapine 25 mg tablet 50 mg PO QHS Qty: 90 RF: 0 hydroxyzine HCl 25 mg Tablet 25 mg PO Q8H PRN PRNQty: 0 RF: 0 lorazepam [Ativan] 1 mg tablet 1 mg PO BID-TID PRN (Reason: anxiety) Qty: 10 RF: 0 pantoprazole 40 mg tablet,delayed release (DR/EC) 40 mg PO DAILY Qty: 90 RF: 3 Symbicort 10.2 GM HFA aerosol inhaler 10.2 gm Inhalation BID Qty: 3 RF: 3 Discharge Instructions Instructions: COPD (Chronic Obstructive Pulmonary Disease) (ED), Anxiety (ED) Additional Instructions: You may use your rescue inhaler as discussed with Mela from respiratory failure. Home to rest today. Continue all of your regularly prescribed medications. Please follow-up with Dr. Chow in clinic for routine care. Medical Decision Making 63-year-old male presents from home with chest tightness, anxiety, small bit of nausea. Self it did begin after raking leaves, he did not use his rescue inhaler, is now improved. Certainly has a component of anxiety. He is given an oral Ativan, he was interviewed by respiratory therapy and is encouraged to improve outpatient management of his reactive airway disease. Remained stable with normal vital signs. No further work-up indicated at this time. ECG Data Attestation: I personally reviewed and interpreted this ECG (s) as follows: Interpretation: Normal sinus rhythm with a rate of 78, the QRS is narrow, there is no ST segment elevation. HPI General Mode of arrival: ambulatory . Date/Time Provider Initiated Documentation: 09/25/18 14:54 . Limitations to Documentation: no limitations . Information obtained by: patient . History of Present Illness 63 year old M presents to the emergency department with the chief complaint of Chest tightness and nausea, improving, described as similar to prior episodes, Quality is described as dull, and is localized to the chest. Patient reports no radiation. Patient started experiencing this minute(s) and it has been now resolved. No relieving factors improve symptom(s), No exacerbating factors reported . Patient notes shortness of breath; denies chest pain. Patient did receive the following treatments prior to arrival, none Related Data Home Medications Medication Instructions Recorded Confirmed Spiriva with HandiHaler 1 cap INHALATION DAILY 09/29/17 09/15/18 OptiChamber Advantage kit 10/15/17 09/15/18 albuterol sulfate 2.5 mg INHALATION Q4H PRN PRN 30 10/15/17 09/21/18 Days ml albuterol sulfate HFA 90 2 puff INHALATION Q4H PRN PRN #1 07/02/18 09/21/18 mcg/actuation aerosol inhaler inh cetirizine 10 mg capsule 10 mg PO DAILY cap 07/02/18 09/12/18 multivitamin tablet 1 tab PO QAM #90 tab 07/02/18 09/21/18 thiamine HCl (vitamin B1) 100 mg 100 mg PO DAILY #90 tab 07/02/18 09/15/18 tablet guaifenesin [Mucus Relief] 400 mg PO Q4H PRN 09/09/18 09/21/18 hydroxyzine HCl 25 mg PO Q8H PRN PRN #0 tab 09/15/18 09/21/18 quetiapine 50 mg PO QHS #90 tab 09/15/18 09/21/18 Symbicort 10.2 gm INHALATION BID #3 inhaler 09/21/18 lorazepam [Ativan] 1 mg PO BID-TID PRN #10 tab 09/21/18 pantoprazole 40 mg PO DAILY #90 tab 09/21/18 Previous Rx's Medication Instructions Recorded Cynthiaber Advantage kit 10/15/17 albuterol sulfate 2.5 mg INHALATION Q4H PRN PRN 30 10/15/17 Days ml albuterol sulfate HFA 90 2 puff INHALATION Q4H PRN PRN #1 07/02/18 mcg/actuation aerosol inhaler inh multivitamin tablet 1 tab PO QAM #90 tab 07/02/18 thiamine HCl (vitamin B1) 100 mg 100 mg PO DAILY #90 tab 07/02/18 tablet hydroxyzine HCl 25 mg PO Q8H PRN PRN #0 tab 09/15/18 quetiapine 50 mg PO QHS #90 tab 09/15/18 Symbicort 10.2 gm INHALATION BID #3 inhaler 09/21/18 lorazepam [Ativan] 1 mg PO BID-TID PRN #10 tab 09/21/18 pantoprazole 40 mg PO DAILY #90 tab 09/21/18 Allergies Allergy/AdvReac Type Severity Reaction Status Date / Time No Known Allergies Allergy Verified 09/21/18 11:43 General Stated Complaint: GenMedical FLASH: 3 Review of Systems Review of Systems 6 systems reviewed and otherwise negative [facility] Medical History COPD (chronic obstructive pulmonary disease) (Chronic) Adjustment disorder with anxiety (Chronic) Alcohol abuse (Chronic) Anxiety (Chronic) Dyspepsia (Chronic) Malignant neoplasm of right lung (Chronic) Tubular adenoma of colon (Inactive) Surgical History History of lung biopsy (Resolved) History of surgery on upper extremity (Resolved) colonoscopy (Inactive 01/19/15) Family History Father Essential hypertension Hyperlipidemia Paternal Uncle Heart disease Stroke Cerebral hemorrhage Hypertension Brother Cancer Social History Smoking/Tobacco Use Status: Current every day Tobacco Type: smokeless tobacco Alcohol Intake: former Drug use: Never Substance use type: does not use Details: 16 weeks sober Adopted: No Foster care: No Household members: family Housing: house Number of Children: 0 current occupation: not working What type of physical activity do you participate in: none and other Details: started lifting weights Frequency: daily Seatbelt use: always Drive intox or ride w/intox emergency 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 Pleasant, well groomed, interactive. HEAD: Normocephalic, atraumatic ENT: Mucous membranes moist, oropharynx unremarkable, External ear exam unremarkable EYES: PERRL, EOMI NECK: Full ROM, no URSZULA, no menigismus CHEST/RESP: Nontender, clear to auscultation bilateral, no wheeze/rhonchi/rales CARDIOVASCULAR: RRR, no murmur, rub jeannie. 2+ Rad pulse bilateral ABDOMEN: Soft, nontender, no mass. +Bowel sounds EXT: Full ROM, no edema, no rash Neuro: Grossly normal neurologic exam, conversant, interactive. Psych: Speech fluent, thoughts congruent, affect anxious Course Vital Signs Temperature 36.8 C 09/25/18 14:56 Pulse 78 09/25/18 14:56 Respiratory Rate 18 09/25/18 14:56 Blood Pressure 140/85 09/25/18 14:56 Pulse Oximetry 98 09/25/18 14:56 Temperature 36.8 C 09/25/18 14:56 Temperature Source Temporal Artery Scan 09/25/18 14:56 Pulse 78 09/25/18 14:56 Respiratory Rate 18 09/25/18 14:56 Blood Pressure 140/85 09/25/18 14:56 Blood Pressure Position Supine 09/25/18 14:56 Pulse Oximetry 98 09/25/18 14:56 Oxygen Delivery Method Room Air 09/25/18 14:56 Oxygen Flow Rate 0 09/25/18 14:56 Pain Level 7 09/25/18 14:56
[2018-09-25] MEDS: LORazepam 0.5 MG TAB (15:19)
== END 2018-09-25 15:43 | disposition home or self-care (01) ==
PROVIDERS: Emergency Provider Emergency Medicine; PCP Internal Medicine
DX: F41.9 Anxiety disorder, unspecified (principal); J44.9 Chronic obstructive pulmonary disease, unspecified
CPT/HCPCS: 36415; 93005; 99284; 93010

== ENCOUNTER 2018-09-26 17:55 | Emergency (ER) | payer MEDICAID, SELFPAY ==
[2018-09-26 17:57] VITALS: BP 150/88; PULSE 86; RESP 20; TEMP 36.9; O2SAT 99
--- NOTE | 2018-09-26 18:04 | ED.GENADUL_ITS ---
Discharge Plan Disposition Patient Disposition: HOME Condition: Stable Discharge Details Chief Complaint: GenMedical Clinical Impression: Overuse of medication Primary Care Provider: Deborah Chow ED Provider: Mj Chen Home Meds and New Rx's Prescriptions: No Action quetiapine [Seroquel] 50 mg tablet 50 mg PO QHS Qty: 90 RF: 0 Spiriva with HandiHaler 18 mcg capsule, w/inhalation device 1 cap Inhalation DAILY Qty: 90 RF: 0 hydroxyzine HCl 25 mg tablet 25 mg PO TID PRNRF: 0 albuterol sulfate [ProAir HFA] 90 mcg/actuation HFA aerosol inhaler 2 puff Inhalation Q4H PRN PRN (Reason: Shortness Of Breath) Qty: 1 RF: 1 multivitamin tablet 1 tab PO QAM Qty: 90 RF: 3 thiamine HCl (vitamin B1) 100 mg tablet 100 mg PO DAILY Qty: 90 RF: 3 OptiChamber Advantage 1 EACH spacer 1 ea Miscellaneous DIRECTED RF: 0 albuterol sulfate 2.5 MG/3 ML solution for nebulization 2.5 mg Inhalation Q4H PRN PRN (Reason: Shortness Of Breath) 30 Days RF: 0 guaifenesin [Mucus Relief] 400 mg Tablet 400 mg PO Q4H PRNRF: 0 quetiapine 25 mg tablet 50 mg PO QHS Qty: 90 RF: 0 lorazepam [Ativan] 1 mg tablet 1 mg PO BID-TID PRN (Reason: anxiety) Qty: 10 RF: 0 pantoprazole 40 mg tablet,delayed release (DR/EC) 40 mg PO DAILY Qty: 90 RF: 3 Symbicort 10.2 GM HFA aerosol inhaler 10.2 gm Inhalation BID Qty: 3 RF: 3 Discharge Instructions Additional Instructions: use your spiriva once a day follow up with your primary care provider in 1-2 weeks Medical Decision Making 63 yo male comes in because of concerns he overused his spiriva. He uses it in the AM, and then forgot this afternoon he had already used it and so had a second dose today. Has no complaints now, speaking in full sentences, clear lungs, no rashes, no findings to suggest anaphylaxis. Educated on proper use of his inhalers, will d/c home Differential Diagnosis medication overuse HPI General Mode of arrival: ambulatory . Date/Time Provider Initiated Documentation: 09/26/18 18:03 . Limitations to Documentation: no limitations . Information obtained by: patient . History of Present Illness 63 year old M presents to the emergency department with the chief complaint of used medication twice by mistake, Patient started experiencing this hour(s) (1) and it has been constant. No relieving factors improve symptom(s), No exacerbating factors reported . Patient did receive the following treatments prior to arrival, none Related Data Home Medications Medication Instructions Recorded Confirmed OptiChamber Advantage kit 10/15/17 09/26/18 albuterol sulfate 2.5 mg INHALATION Q4H PRN PRN 30 10/15/17 09/26/18 Days ml albuterol sulfate HFA 90 2 puff INHALATION Q4H PRN PRN #1 07/02/18 09/26/18 mcg/actuation aerosol inhaler inh multivitamin tablet 1 tab PO QAM #90 tab 07/02/18 09/26/18 thiamine HCl (vitamin B1) 100 mg 100 mg PO DAILY #90 tab 07/02/18 09/26/18 tablet guaifenesin [Mucus Relief] 400 mg PO Q4H PRN 09/09/18 09/26/18 quetiapine 50 mg PO QHS #90 tab 09/15/18 09/26/18 Symbicort 10.2 gm INHALATION BID #3 inhaler 09/21/18 09/26/18 lorazepam [Ativan] 1 mg PO BID-TID PRN #10 tab 09/21/18 09/26/18 pantoprazole 40 mg PO DAILY #90 tab 09/21/18 09/26/18 hydroxyzine HCl 25 mg tablet 25 mg PO TID PRN tab 09/26/18 09/26/18 quetiapine 50 mg tablet 50 mg PO QHS #90 tab 09/26/18 09/26/18 tiotropium bromide 18 mcg capsule 1 cap INHALATION DAILY #90 inh 09/26/18 09/26/18 with inhalation device Previous Rx's Medication Instructions Recorded OptiCActimagineber Advantage kit 10/15/17 albuterol sulfate 2.5 mg INHALATION Q4H PRN PRN 30 10/15/17 Days ml albuterol sulfate HFA 90 2 puff INHALATION Q4H PRN PRN #1 07/02/18 mcg/actuation aerosol inhaler inh multivitamin tablet 1 tab PO QAM #90 tab 07/02/18 thiamine HCl (vitamin B1) 100 mg 100 mg PO DAILY #90 tab 07/02/18 tablet quetiapine 50 mg PO QHS #90 tab 09/15/18 Symbicort 10.2 gm INHALATION BID #3 inhaler 09/21/18 lorazepam [Ativan] 1 mg PO BID-TID PRN #10 tab 09/21/18 pantoprazole 40 mg PO DAILY #90 tab 09/21/18 quetiapine 50 mg tablet 50 mg PO QHS #90 tab 09/26/18 tiotropium bromide 18 mcg capsule 1 cap INHALATION DAILY #90 inh 09/26/18 with inhalation device Allergies Allergy/AdvReac Type Severity Reaction Status Date / Time No Known Allergies Allergy Verified 09/26/18 17:59 General Stated Complaint: GenMedical FLASH: 4 Review of Systems Review of Systems All systems reviewed & are unremarkable except as noted in HPI and below Constitutional Denies chills, Denies fever(s) and Denies weakness Cardiovascular Denies chest pain and Denies dyspnea Respiratory Denies cough and Denies dyspnea Gastrointestinal Denies abdominal pain, Denies nausea and Denies vomiting Integumentary/Breasts Denies rash Neurologic Denies weakness [facility] Medical History COPD (chronic obstructive pulmonary disease) (Chronic) Adjustment disorder with anxiety (Chronic) Alcohol abuse (Chronic) Anxiety (Chronic) Dyspepsia (Chronic) Malignant neoplasm of right lung (Chronic) Tubular adenoma of colon (Inactive) Surgical History History of lung biopsy (Resolved) History of surgery on upper extremity (Resolved) colonoscopy (Inactive 01/19/15) Family History Father Essential hypertension Hyperlipidemia Paternal Uncle Heart disease Stroke Cerebral hemorrhage Hypertension Brother Cancer Social History Smoking/Tobacco Use Status: Current every day Tobacco Type: smokeless tobacco Alcohol Intake: former Drug use: Never Substance use type: does not use Details: 16 weeks sober Adopted: No Foster care: No Household members: family Housing: house Number of Children: 0 Communication Needs: None current occupation: not working Current gender identity: male What type of physical activity do you participate in: none and other Details: started lifting weights Frequency: daily Seatbelt use: always Drive intox or ride w/intox 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: No Water heater temp set <120 deg: Yes Working smoke detector in home: Yes Fire extinguisher in home: Yes Carbon monox detector in home: Yes Firearms in home: Yes Do you feel safe at home: Yes Do you feel safe in your relationship?: Yes Exam Const General: no acute distress Orientation: alert HENMT Head: normal to inspection Ears: external ears normal General nose exam: external nose normal Mouth: moist mucous membranes Eyes General: appearance normal, both eyes and all related structures Neck Neck: normal visual inspection Resp Effort & Inspection: normal respiratory effort and able to speak in complete sentences Cardio Rate: regular rate Skin General skin exam: no rashes or lesions noted Neuro General: alert and oriented x3 Extrem General: normal to inspection Psych Mental Status: mental status grossly normal Course Vital Signs Temperature 36.9 C 09/26/18 17:57 Pulse 86 09/26/18 17:57 Respiratory Rate 20 09/26/18 17:57 Blood Pressure 150/88 H 09/26/18 17:57 Pulse Oximetry 99 09/26/18 17:57 Temperature 36.9 C 09/26/18 17:57 Temperature Source Temporal Artery Scan 09/26/18 17:57 Pulse 86 09/26/18 17:57 Respiratory Rate 20 09/26/18 17:57 Respiratory Effort Non-Labored 09/26/18 17:57 Blood Pressure 150/88 H 09/26/18 17:57 Pulse Oximetry 99 09/26/18 17:57 Oxygen Delivery Method Room Air 09/26/18 17:57 Oxygen Flow Rate 0 09/26/18 17:57 Pain Level 0 09/26/18 17:57
[2018-09-26 18:07] VITALS: BP 150/88; PULSE 86; RESP 20; TEMP 36.9; O2SAT 99
== END 2018-09-26 18:10 | disposition home or self-care (01) ==
LOC: ER 18:10
PROVIDERS: Emergency Provider Emergency Medicine; PCP Internal Medicine
DX: T48.6X1A Poisoning by antiasthmatics, accidental (unintentional), initial encounter (principal); F41.9 Anxiety disorder, unspecified; J44.9 Chronic obstructive pulmonary disease, unspecified
CPT/HCPCS: 99281

== ENCOUNTER 2018-09-27 05:22 | Emergency (ER) | payer MEDICAID, SELFPAY ==
[2018-09-27] VITALS (8 sets, daily range): BP systolic 121–145; BP diastolic 85–90; PULSE 59–68; RESP 12–16; TEMP 36.6; O2SAT 98–100
--- NOTE | 2018-09-27 05:36 | ED.GENADUL_ITS ---
Discharge Plan Disposition Patient Disposition: HOME Condition: Good Discharge Details Chief Complaint: Abd Prob Clinical Impression: Abdominal pain, Anxiety Primary Care Provider: Deborah Chow ED Provider: Daren Chiang [place] Meds and New Rx's Prescriptions: Continued quetiapine [Seroquel] 50 mg tablet 50 mg PO QHS Qty: 90 RF: 0 Spiriva with HandiHaler 18 mcg capsule, w/inhalation device 1 cap Inhalation DAILY Qty: 90 RF: 0 hydroxyzine HCl 25 mg tablet 25 mg PO TID PRNRF: 0 albuterol sulfate [ProAir HFA] 90 mcg/actuation HFA aerosol inhaler 2 puff Inhalation Q4H PRN PRN (Reason: Shortness Of Breath) Qty: 1 RF: 1 multivitamin tablet 1 tab PO QAM Qty: 90 RF: 3 thiamine HCl (vitamin B1) 100 mg tablet 100 mg PO DAILY Qty: 90 RF: 3 OptiChamber Advantage 1 EACH spacer 1 ea Miscellaneous DIRECTED RF: 0 albuterol sulfate 2.5 MG/3 ML solution for nebulization 2.5 mg Inhalation Q4H PRN PRN (Reason: Shortness Of Breath) 30 Days RF: 0 guaifenesin [Mucus Relief] 400 mg Tablet 400 mg PO Q4H PRNRF: 0 lorazepam [Ativan] 1 mg tablet 1 mg PO BID-TID PRN (Reason: anxiety) Qty: 10 RF: 0 pantoprazole 40 mg tablet,delayed release (DR/EC) 40 mg PO DAILY Qty: 90 RF: 3 Symbicort 10.2 GM HFA aerosol inhaler 10.2 gm Inhalation BID Qty: 3 RF: 3 Discharge Instructions Additional Instructions: Continue to make your medications as previously directed by your primary care. Follow-up with primary care next week. Return to ED if you develop new symptoms including new abdominal pain, fever, vomiting. Referrals: Deborah Chow MD [Primary Care Provider] - Medical Decision Making Patient here this morning with complaints of not feeling well and being scared. New complaint of sore throat. Other complaints of feeling dizzy, short of breath, epigastric pain. Currently home alone. States he did take his medications today. His vital signs are unremarkable. Blood pressure has come down on its own. His oropharynx is clear there is no evidence of thrush. His lungs are clear. His abdomen is benign. He is given a GI cocktail with resolution of his epigastric pain. He has been seen by his primary care yesterday and had medications adjusted to try to help with his anxiety. Patient is reassured. Discharged home to continue current medication regimen. HPI General Mode of arrival: ambulatory . Date/Time Provider Initiated Documentation: 09/27/18 05:28 . Limitations to Documentation: no limitations . Information obtained by: patient and old records reviewed . HPI Narrative: Patient returns to ED by ambulance with complaint of not feeling well and being scared this morning. He has been seen him multiple times as of late. Seen here on the and as well as a primary care visit to his doctor on the . He complains of sore throat this morning. Continues to complain of feeling dizzy, short of breath, epigastric pain, which are all recurrent complaints with most every visit. Currently at home alone as his parents and brother are not there. Related Data Home Medications Medication Instructions Recorded Confirmed [employer] Custom Advantage kit 10/15/17 09/27/18 albuterol sulfate 2.5 mg INHALATION Q4H PRN PRN 30 10/15/17 09/27/18 Days ml albuterol sulfate HFA 90 2 puff INHALATION Q4H PRN PRN #1 07/02/18 09/27/18 mcg/actuation aerosol inhaler inh multivitamin tablet 1 tab PO QAM #90 tab 07/02/18 09/27/18 thiamine HCl (vitamin B1) 100 mg 100 mg PO DAILY #90 tab 07/02/18 09/27/18 tablet guaifenesin [Mucus Relief] 400 mg PO Q4H PRN 09/09/18 09/27/18 Symbicort 10.2 gm INHALATION BID #3 inhaler 09/21/18 09/27/18 lorazepam [Ativan] 1 mg PO BID-TID PRN #10 tab 09/21/18 09/27/18 pantoprazole 40 mg PO DAILY #90 tab 09/21/18 09/27/18 hydroxyzine HCl 25 mg tablet 25 mg PO TID PRN tab 09/26/18 09/27/18 quetiapine 50 mg tablet 50 mg PO QHS #90 tab 09/26/18 09/27/18 tiotropium bromide 18 mcg capsule 1 cap INHALATION DAILY #90 inh 09/26/18 09/27/18 with inhalation device Previous Rx's Medication Instructions Recorded Cynthiaber Advantage kit 10/15/17 albuterol sulfate 2.5 mg INHALATION Q4H PRN PRN 30 10/15/17 Days ml albuterol sulfate HFA 90 2 puff INHALATION Q4H PRN PRN #1 07/02/18 mcg/actuation aerosol inhaler inh multivitamin tablet 1 tab PO QAM #90 tab 07/02/18 thiamine HCl (vitamin B1) 100 mg 100 mg PO DAILY #90 tab 07/02/18 tablet Symbicort 10.2 gm INHALATION BID #3 inhaler 09/21/18 lorazepam [Ativan] 1 mg PO BID-TID PRN #10 tab 09/21/18 pantoprazole 40 mg PO DAILY #90 tab 09/21/18 quetiapine 50 mg tablet 50 mg PO QHS #90 tab 09/26/18 tiotropium bromide 18 mcg capsule 1 cap INHALATION DAILY #90 inh 09/26/18 with inhalation device Allergies Allergy/AdvReac Type Severity Reaction Status Date / Time No Known Allergies Allergy Verified 09/27/18 05:29 General Stated Complaint: Abd Prob FLASH: 3 Review of Systems Review of Systems As documented in HPI otherwise negative as below. Const: no fever, chills, weakness Resp: SOB; no cough, pleuritic pain CV: no CP, diaphoresis, edema, syncope GI: abdominal pain; no nausea, vomiting, diarrhea Neuro: no headache, numbness, focal weakness, confusion PFSH Medical History COPD (chronic obstructive pulmonary disease) (Chronic) Adjustment disorder with anxiety (Chronic) Alcohol abuse (Chronic) Anxiety (Chronic) Dyspepsia (Chronic) Malignant neoplasm of right lung (Chronic) Tubular adenoma of colon (Inactive) Surgical History History of lung biopsy (Resolved) History of surgery on upper extremity (Resolved) colonoscopy (Inactive 01/19/15) Social History Smoking/Tobacco Use Status: Current every day Tobacco Type: cigarettes and smokeless tobacco Tobacco: How many years used: 30 Alcohol Intake: former Drug use: Never Substance use type: does not use Details: 16 weeks sober Adopted: No Foster care: No Household members: family Housing: house Number of Children: 0 Communication Needs: None current occupation: not working Current gender identity: male What type of physical activity do you participate in: none and other Details: started lifting weights Frequency: daily Seatbelt use: always Drive intox or ride w/intox corporate driver: No Water heater temp set <120 deg: Yes Working smoke detector in home: Yes Fire extinguisher in home: Yes Carbon monox detector in home: Yes Firearms in home: Yes Do you feel safe at home: Yes Do you feel safe in your relationship?: Yes Exam Narrative Exam Narrative: Vitals: elevated BP otherwise normal with normal pulse ox Const: WDWN mels in NAD, anxious. HEENT: NC/AT. Normal facial exam. OP without evidence of thrush. No erythema or exudate. Neck: Supple. Trachea midline. Lungs: Normal respiratory effort. Lungs are clear. Cor: RRR without murmur/gallop. Good radial pulses. GI: Soft. NT/ND. No guarding or rebound. Neuro: A+O x 3. CN grossly in tact. Good strength and no focal deficit. Ext: No C/C/E. No deformity or tenderness. Skin: Warm and dry without rash. Course Vital Signs Temperature 97.9 F 09/27/18 05:23 Pulse 60 09/27/18 05:23 Respiratory Rate 16 09/27/18 05:23 Blood Pressure 145/85 H 09/27/18 05:23 Pulse Oximetry 99 09/27/18 05:23 Temperature 97.9 F 09/27/18 05:23 Temperature Source Skin 09/27/18 05:23 Pulse 60 09/27/18 05:23 Respiratory Rate 16 09/27/18 05:23 Respiratory Effort Non-Labored 09/27/18 05:30 Blood Pressure 145/85 H 09/27/18 05:23 Blood Pressure Position Sitting 09/27/18 05:23 Pulse Oximetry 99 09/27/18 05:23 Oxygen Delivery Method Room Air 09/27/18 05:23 Oxygen Flow Rate 0 09/27/18 05:23 Pain Level 8 09/27/18 05:23
== END 2018-09-27 06:13 | disposition home or self-care (01) ==
LOC: ER 06:20
PROVIDERS: Emergency Provider Emergency Medicine; PCP Internal Medicine
DX: R10.9 Unspecified abdominal pain (principal); F41.9 Anxiety disorder, unspecified
CPT/HCPCS: 99283; 81003

== ENCOUNTER 2018-09-29 05:43 | Emergency (ER) | payer MEDICAID, SELFPAY ==
[2018-09-29 05:45] VITALS: BP 140/84; PULSE 68; RESP 16; TEMP 36.6; O2SAT 99
--- NOTE | 2018-09-29 05:47 | W.ED.GENAD ---
Discharge Plan Disposition Patient Disposition: HOME Condition: Stable Discharge Details Chief Complaint: GenMedical Clinical Impression: Anxiety Primary Care Provider: Deborah Chow ED Provider: Mj Chen Home Meds and New Rx's Prescriptions: No Action quetiapine [Seroquel] 50 mg tablet 50 mg PO QHS Qty: 90 RF: 0 Spiriva with HandiHaler 18 mcg capsule, w/inhalation device 1 cap Inhalation DAILY Qty: 90 RF: 0 hydroxyzine HCl 25 mg tablet 25 mg PO TID PRNRF: 0 albuterol sulfate [ProAir HFA] 90 mcg/actuation HFA aerosol inhaler 2 puff Inhalation Q4H PRN PRN (Reason: Shortness Of Breath) Qty: 1 RF: 1 multivitamin tablet 1 tab PO QAM Qty: 90 RF: 3 thiamine HCl (vitamin B1) 100 mg tablet 100 mg PO DAILY Qty: 90 RF: 3 OptiChamber Advantage 1 EACH spacer 1 ea Miscellaneous DIRECTED RF: 0 albuterol sulfate 2.5 MG/3 ML solution for nebulization 2.5 mg Inhalation Q4H PRN PRN (Reason: Shortness Of Breath) 30 Days RF: 0 guaifenesin [Mucus Relief] 400 mg Tablet 400 mg PO Q4H PRNRF: 0 lorazepam [Ativan] 1 mg tablet 1 mg PO BID-TID PRN (Reason: anxiety) Qty: 10 RF: 0 pantoprazole 40 mg tablet,delayed release (DR/EC) 40 mg PO DAILY Qty: 90 RF: 3 Symbicort 10.2 GM HFA aerosol inhaler 10.2 gm Inhalation BID Qty: 3 RF: 3 Discharge Instructions Additional Instructions: You need to follow up with your primary care provider for treatment of your medical conditions and not the emergency department Medical Decision Making 63 yo male comes in complaining of multiple complaints inculding sore throat, chest pain, abd pain, and states feeling more anxious than normal. He has been seen in the past for similar symptoms when he feels anxious. He states he felt more anxious today as his parents are gone until Monday and he felt lonely which caused him to feel all these symptoms. HIs ecg with ems is sinus without ischemic changes, he has no hypoxia, tachycardia or evidence of dvt so doubt pe and given unchanged ecg and no pain with exertion and no diaphoresis or n/v doubt acs. I feel this is most likely anxiety being exacerbated by his fear of being a lone. Had a long discussion with him on how to try and control his symptoms and when to call ems. He will f/u with pcp Differential Diagnosis anxiety, personality disorder, gerd HPI General Mode of arrival: EMS. Date/Time Provider Initiated Documentation: 09/29/18 05:47. Limitations to Documentation: no limitations. Information obtained by: patient. History of Present Illness 63 year old M presents to the emergency department with the chief complaint of feeling anxious, Patient started experiencing this hour(s) (1) and it has been constant. No relieving factors improve symptom(s), No exacerbating factors reported . Patient did receive the following treatments prior to arrival, none Related Data Home Medications Medication Instructions Recorded Confirmed [employer] Advantage kit 10/15/17 09/27/18 albuterol sulfate 2.5 mg INHALATION Q4H PRN PRN 30 10/15/17 09/27/18 Days ml albuterol sulfate HFA 90 2 puff INHALATION Q4H PRN PRN #1 07/02/18 09/27/18 mcg/actuation aerosol inhaler inh multivitamin tablet 1 tab PO QAM #90 tab 07/02/18 09/27/18 thiamine HCl (vitamin B1) 100 mg 100 mg PO DAILY #90 tab 07/02/18 09/27/18 tablet guaifenesin [Mucus Relief] 400 mg PO Q4H PRN 09/09/18 09/27/18 Symbicort 10.2 gm INHALATION BID #3 inhaler 09/21/18 09/27/18 lorazepam [Ativan] 1 mg PO BID-TID PRN #10 tab 09/21/18 09/27/18 pantoprazole 40 mg PO DAILY #90 tab 09/21/18 09/27/18 hydroxyzine HCl 25 mg tablet 25 mg PO TID PRN tab 09/26/18 09/27/18 quetiapine 50 mg tablet 50 mg PO QHS #90 tab 09/26/18 09/27/18 tiotropium bromide 18 mcg capsule 1 cap INHALATION DAILY #90 inh 09/26/18 09/27/18 with inhalation device Previous Rx's Medication Instructions Recorded [employer] Advantage kit 10/15/17 albuterol sulfate 2.5 mg INHALATION Q4H PRN PRN 30 10/15/17 Days ml albuterol sulfate HFA 90 2 puff INHALATION Q4H PRN PRN #1 07/02/18 mcg/actuation aerosol inhaler inh multivitamin tablet 1 tab PO QAM #90 tab 07/02/18 thiamine HCl (vitamin B1) 100 mg 100 mg PO DAILY #90 tab 07/02/18 tablet Symbicort 10.2 gm INHALATION BID #3 inhaler 09/21/18 lorazepam [Ativan] 1 mg PO BID-TID PRN #10 tab 09/21/18 pantoprazole 40 mg PO DAILY #90 tab 09/21/18 quetiapine 50 mg tablet 50 mg PO QHS #90 tab 09/26/18 tiotropium bromide 18 mcg capsule 1 cap INHALATION DAILY #90 inh 09/26/18 with inhalation device Allergies Allergy/AdvReac Type Severity Reaction Status Date / Time No Known Allergies Allergy Verified 09/27/18 05:29 General FLASH: 3 Review of Systems Review of Systems All systems reviewed & are unremarkable except as noted in HPI and below Constitutional Denies chills, Denies fever(s) and Denies weakness ENT Denies change in voice Respiratory Denies cough Gastrointestinal Denies abdominal pain, Denies nausea and Denies vomiting Genitourinary Denies dysuria Musculoskeletal Denies joint swelling Neurologic Denies weakness Endocrine Denies heat intolerance [facility] Medical History COPD (chronic obstructive pulmonary disease) (Chronic) Adjustment disorder with anxiety (Chronic) Alcohol abuse (Chronic) Anxiety (Chronic) Dyspepsia (Chronic) Malignant neoplasm of right lung (Chronic) Tubular adenoma of colon (Inactive) Surgical History History of lung biopsy (Resolved) History of surgery on upper extremity (Resolved) colonoscopy (Inactive 01/19/15) Social History Smoking/Tobacco Use Status: Current every day Tobacco Type: cigarettes and smokeless tobacco Tobacco: How many years used: 30 Alcohol Intake: former Drug use: Never Substance use type: does not use Details: 16 weeks sober Adopted: No Foster care: No Household members: family Housing: house Number of Children: 0 Communication Needs: None current occupation: not working Current gender identity: male What type of physical activity do you participate in: none and other Details: started lifting weights Frequency: daily Seatbelt use: always 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 Water heater temp set <120 deg: Yes Working smoke detector in home: Yes Fire extinguisher in home: Yes Carbon monox detector in home: Yes Firearms in home: Yes Do you feel safe at home: Yes Do you feel safe in your relationship?: Yes Exam Const General: anxious Orientation: alert HENMT Head: normal to inspection Ears: external ears normal General nose exam: external nose normal Mouth: moist mucous membranes Eyes General: appearance normal, both eyes and all related structures Neck Neck: normal visual inspection Resp Effort & Inspection: normal respiratory effort and able to speak in complete sentences Cardio Rate: regular rate Skin General skin exam: no rashes or lesions noted Neuro General: alert and oriented x3 Extrem General: normal to inspection Psych Mental Status: mental status grossly normal
--- NOTE | 2018-09-29 05:50 | ED.GENADUL_ITS ---
Discharge Plan Disposition Patient Disposition: HOME Condition: Stable Discharge Details Chief Complaint: GenMedical Clinical Impression: Anxiety Primary Care Provider: Deborah Chow ED Provider: Mj Chen Home Meds and New Rx's Prescriptions: No Action quetiapine [Seroquel] 50 mg tablet 50 mg PO QHS Qty: 90 RF: 0 Spiriva with HandiHaler 18 mcg capsule, w/inhalation device 1 cap Inhalation DAILY Qty: 90 RF: 0 hydroxyzine HCl 25 mg tablet 25 mg PO TID PRNRF: 0 albuterol sulfate [ProAir HFA] 90 mcg/actuation HFA aerosol inhaler 2 puff Inhalation Q4H PRN PRN (Reason: Shortness Of Breath) Qty: 1 RF: 1 multivitamin tablet 1 tab PO QAM Qty: 90 RF: 3 thiamine HCl (vitamin B1) 100 mg tablet 100 mg PO DAILY Qty: 90 RF: 3 OptiChamber Advantage 1 EACH spacer 1 ea Miscellaneous DIRECTED RF: 0 albuterol sulfate 2.5 MG/3 ML solution for nebulization 2.5 mg Inhalation Q4H PRN PRN (Reason: Shortness Of Breath) 30 Days RF: 0 guaifenesin [Mucus Relief] 400 mg Tablet 400 mg PO Q4H PRNRF: 0 lorazepam [Ativan] 1 mg tablet 1 mg PO BID-TID PRN (Reason: anxiety) Qty: 10 RF: 0 pantoprazole 40 mg tablet,delayed release (DR/EC) 40 mg PO DAILY Qty: 90 RF: 3 Symbicort 10.2 GM HFA aerosol inhaler 10.2 gm Inhalation BID Qty: 3 RF: 3 Discharge Instructions Additional Instructions: You need to follow up with your primary care provider for treatment of your medical conditions and not the emergency department Medical Decision Making 63 yo male comes in complaining of multiple complaints inculding sore throat, chest pain, abd pain, and states feeling more anxious than normal. He has been seen in the past for similar symptoms when he feels anxious. He states he felt more anxious today as his parents are gone until Monday and he felt lonely which caused him to feel all these symptoms. HIs ecg with ems is sinus without ischemic changes, he has no hypoxia, tachycardia or evidence of dvt so doubt pe and given unchanged ecg and no pain with exertion and no diaphoresis or n/v doubt acs. I feel this is most likely anxiety being exacerbated by his fear of being a lone. Had a long discussion with him on how to try and control his symptoms and when to call ems. He will f/u with pcp Differential Diagnosis anxiety, personality disorder, gerd HPI General Mode of arrival: EMS . Date/Time Provider Initiated Documentation: 09/29/18 05:47 . Limitations to Documentation: no limitations . Information obtained by: patient . History of Present Illness 63 year old M presents to the emergency department with the chief complaint of feeling anxious, Patient started experiencing this hour(s) (1) and it has been constant. No relieving factors improve symptom(s), No exacerbating factors reported . Patient did receive the following treatments prior to arrival, none Related Data Home Medications Medication Instructions Recorded Confirmed [employer] Advantage kit 10/15/17 09/27/18 albuterol sulfate 2.5 mg INHALATION Q4H PRN PRN 30 10/15/17 09/27/18 Days ml albuterol sulfate HFA 90 2 puff INHALATION Q4H PRN PRN #1 07/02/18 09/27/18 mcg/actuation aerosol inhaler inh multivitamin tablet 1 tab PO QAM #90 tab 07/02/18 09/27/18 thiamine HCl (vitamin B1) 100 mg 100 mg PO DAILY #90 tab 07/02/18 09/27/18 tablet guaifenesin [Mucus Relief] 400 mg PO Q4H PRN 09/09/18 09/27/18 Symbicort 10.2 gm INHALATION BID #3 inhaler 09/21/18 09/27/18 lorazepam [Ativan] 1 mg PO BID-TID PRN #10 tab 09/21/18 09/27/18 pantoprazole 40 mg PO DAILY #90 tab 09/21/18 09/27/18 hydroxyzine HCl 25 mg tablet 25 mg PO TID PRN tab 09/26/18 09/27/18 quetiapine 50 mg tablet 50 mg PO QHS #90 tab 09/26/18 09/27/18 tiotropium bromide 18 mcg capsule 1 cap INHALATION DAILY #90 inh 09/26/18 09/27/18 with inhalation device Previous Rx's Medication Instructions Recorded [employer] Advantage kit 10/15/17 albuterol sulfate 2.5 mg INHALATION Q4H PRN PRN 30 10/15/17 Days ml albuterol sulfate HFA 90 2 puff INHALATION Q4H PRN PRN #1 07/02/18 mcg/actuation aerosol inhaler inh multivitamin tablet 1 tab PO QAM #90 tab 07/02/18 thiamine HCl (vitamin B1) 100 mg 100 mg PO DAILY #90 tab 07/02/18 tablet Symbicort 10.2 gm INHALATION BID #3 inhaler 09/21/18 lorazepam [Ativan] 1 mg PO BID-TID PRN #10 tab 09/21/18 pantoprazole 40 mg PO DAILY #90 tab 09/21/18 quetiapine 50 mg tablet 50 mg PO QHS #90 tab 09/26/18 tiotropium bromide 18 mcg capsule 1 cap INHALATION DAILY #90 inh 09/26/18 with inhalation device Allergies Allergy/AdvReac Type Severity Reaction Status Date / Time No Known Allergies Allergy Verified 09/27/18 05:29 General FLASH: 3 Review of Systems Review of Systems All systems reviewed & are unremarkable except as noted in HPI and below Constitutional Denies chills, Denies fever(s) and Denies weakness ENT Denies change in voice Respiratory Denies cough Gastrointestinal Denies abdominal pain, Denies nausea and Denies vomiting Genitourinary Denies dysuria Musculoskeletal Denies joint swelling Neurologic Denies weakness Endocrine Denies heat intolerance [facility] Medical History COPD (chronic obstructive pulmonary disease) (Chronic) Adjustment disorder with anxiety (Chronic) Alcohol abuse (Chronic) Anxiety (Chronic) Dyspepsia (Chronic) Malignant neoplasm of right lung (Chronic) Tubular adenoma of colon (Inactive) Surgical History History of lung biopsy (Resolved) History of surgery on upper extremity (Resolved) colonoscopy (Inactive 01/19/15) Social History Smoking/Tobacco Use Status: Current every day Tobacco Type: cigarettes and smokeless tobacco Tobacco: How many years used: 30 Alcohol Intake: former Drug use: Never Substance use type: does not use Details: 16 weeks sober Adopted: No Foster care: No Household members: family Housing: house Number of Children: 0 Communication Needs: None current occupation: not working Current gender identity: male What type of physical activity do you participate in: none and other Details: started lifting weights Frequency: daily Seatbelt use: always Drive intox or ride w/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 Water heater temp set <120 deg: Yes Working smoke detector in home: Yes Fire extinguisher in home: Yes Carbon monox detector in home: Yes Firearms in home: Yes Do you feel safe at home: Yes Do you feel safe in your relationship?: Yes Exam Const General: anxious Orientation: alert HENMT Head: normal to inspection Ears: external ears normal General nose exam: external nose normal Mouth: moist mucous membranes Eyes General: appearance normal, both eyes and all related structures Neck Neck: normal visual inspection Resp Effort & Inspection: normal respiratory effort and able to speak in complete sentences Cardio Rate: regular rate Skin General skin exam: no rashes or lesions noted Neuro General: alert and oriented x3 Extrem General: normal to inspection Psych Mental Status: mental status grossly normal
[2018-09-29 06:10] VITALS: RESP 16
[2018-09-29 06:16] VITALS: BP 140/84; PULSE 68; RESP 16; TEMP 36.6; O2SAT 99
== END 2018-09-29 05:55 | disposition home or self-care (01) ==
LOC: ER 05:57
PROVIDERS: Emergency Provider Emergency Medicine; PCP Internal Medicine
DX: F41.9 Anxiety disorder, unspecified (principal)
CPT/HCPCS: 99283

== ENCOUNTER 2018-10-01 17:47 | Emergency (ER) | payer MEDICAID, SELFPAY ==
[2018-10-01 17:57] VITALS: BP 162/98; PULSE 82; RESP 16; TEMP 36.8; O2SAT 98
--- NOTE | 2018-10-01 18:17 | W.ED.GENAD ---
Discharge Plan Disposition Patient Disposition: HOME Condition: Stable Discharge Details Chief Complaint: Chest/Rib Clinical Impression: Anxiety, Chronic obstructive pulmonary disease Primary Care Provider: Deborah Chow ED Provider: Mj Chen Home Meds and New Rx's Prescriptions: No Action quetiapine [Seroquel] 50 mg tablet 50 mg PO QHS Qty: 90 RF: 0 Spiriva with HandiHaler 18 mcg capsule, w/inhalation device 1 cap Inhalation DAILY Qty: 90 RF: 0 hydroxyzine HCl 25 mg tablet 25 mg PO TID PRNRF: 0 albuterol sulfate [ProAir HFA] 90 mcg/actuation HFA aerosol inhaler 2 puff Inhalation Q4H PRN PRN (Reason: Shortness Of Breath) Qty: 1 RF: 1 multivitamin tablet 1 tab PO QAM Qty: 90 RF: 3 thiamine HCl (vitamin B1) 100 mg tablet 100 mg PO DAILY Qty: 90 RF: 3 OptiChamber Advantage 1 EACH spacer 1 ea Miscellaneous DIRECTED RF: 0 albuterol sulfate 2.5 MG/3 ML solution for nebulization 2.5 mg Inhalation Q4H PRN PRN (Reason: Shortness Of Breath) 30 Days RF: 0 guaifenesin [Mucus Relief] 400 mg Tablet 400 mg PO Q4H PRNRF: 0 lorazepam [Ativan] 1 mg tablet 1 mg PO BID-TID PRN (Reason: anxiety) Qty: 10 RF: 0 pantoprazole 40 mg tablet,delayed release (DR/EC) 40 mg PO DAILY Qty: 90 RF: 3 Symbicort 10.2 GM HFA aerosol inhaler 10.2 gm Inhalation BID Qty: 3 RF: 3 Discharge Instructions Additional Instructions: follow up with your primary care provider in 1-2 weeks if you have new symptoms such as persistent vomit, severe pain or high fevers, return to the emergency department Medical Decision Making 63 yo male with hx of anxiety, copd, gerd, who comes in with chief complaint of shortness of breath since yesterday and epigastric burning. The shortness of breath comes and goes especially when he feels anxious. Denies chest pain, fevers, cough, n/v. He is speaking in full sentences on exam in no dsitress. He has clear lungs, mild epigastric tenderness. I suspect his pain is due to gerd/gastritis given his hx and given lack of any significant abdominal tenderness doubt surgical pathology and do not feel ct imaging indicated. Has no hypoxia or tachycardia even with walking and no evidence of dvt so doubt Pe at this time. I suspect his symptoms are due to anxiety and advised f/u with pcp, return precautions given Differential Diagnosis gerd, gastritis, anxiety, copd ECG Data Attestation: I personally reviewed and interpreted this ECG (s) as follows: Prior ECG tracings: available for review Interpretation: sinus rythm, rate, of 72, no acute st twave ischemic changes HPI General Mode of arrival: ambulatory. Date/Time Provider Initiated Documentation: 10/01/18 17:59. Limitations to Documentation: no limitations. Information obtained by: patient. History of Present Illness 63 year old M presents to the emergency department with the chief complaint of short of breath, described as mild, Patient started experiencing this day(s) (2) and it has been constant. No relieving factors improve symptom(s), No exacerbating factors reported . Patient notes no other symptoms.. Patient did receive the following treatments prior to arrival, none Related Data Home Medications Medication Instructions Recorded Confirmed [employer] Advantage kit 10/15/17 09/29/18 albuterol sulfate 2.5 mg INHALATION Q4H PRN PRN 30 10/15/17 10/01/18 Days ml albuterol sulfate HFA 90 2 puff INHALATION Q4H PRN PRN #1 07/02/18 10/01/18 mcg/actuation aerosol inhaler inh multivitamin tablet 1 tab PO QAM #90 tab 07/02/18 10/01/18 thiamine HCl (vitamin B1) 100 mg 100 mg PO DAILY #90 tab 07/02/18 10/01/18 tablet guaifenesin [Mucus Relief] 400 mg PO Q4H PRN 09/09/18 10/01/18 Symbicort 10.2 gm INHALATION BID #3 inhaler 09/21/18 10/01/18 lorazepam [Ativan] 1 mg PO BID-TID PRN #10 tab 09/21/18 09/29/18 pantoprazole 40 mg PO DAILY #90 tab 09/21/18 10/01/18 hydroxyzine HCl 25 mg tablet 25 mg PO TID PRN tab 09/26/18 10/01/18 quetiapine 50 mg tablet 50 mg PO QHS #90 tab 09/26/18 10/01/18 tiotropium bromide 18 mcg capsule 1 cap INHALATION DAILY #90 inh 09/26/18 10/01/18 with inhalation device Previous Rx's Medication Instructions Recorded [employer] Advantage kit 10/15/17 albuterol sulfate 2.5 mg INHALATION Q4H PRN PRN 30 10/15/17 Days ml albuterol sulfate HFA 90 2 puff INHALATION Q4H PRN PRN #1 07/02/18 mcg/actuation aerosol inhaler inh multivitamin tablet 1 tab PO QAM #90 tab 07/02/18 thiamine HCl (vitamin B1) 100 mg 100 mg PO DAILY #90 tab 07/02/18 tablet Symbicort 10.2 gm INHALATION BID #3 inhaler 09/21/18 lorazepam [Ativan] 1 mg PO BID-TID PRN #10 tab 09/21/18 pantoprazole 40 mg PO DAILY #90 tab 09/21/18 quetiapine 50 mg tablet 50 mg PO QHS #90 tab 09/26/18 tiotropium bromide 18 mcg capsule 1 cap INHALATION DAILY #90 inh 09/26/18 with inhalation device Allergies Allergy/AdvReac Type Severity Reaction Status Date / Time No Known Allergies Allergy Verified 10/01/18 17:52 General Stated Complaint: Chest/Rib FLASH: 3 Review of Systems Review of Systems All systems reviewed & are unremarkable except as noted in HPI and below Constitutional Denies chills, Denies fever(s) and Denies weakness Cardiovascular Denies chest pain Respiratory Denies cough Gastrointestinal Denies nausea and Denies vomiting Musculoskeletal Denies joint swelling Integumentary/Breasts Denies rash Neurologic Denies weakness [facility] Social History Smoking/Tobacco Use Status: Current every day Tobacco Type: cigarettes and smokeless tobacco Tobacco: How many years used: 30 Alcohol Intake: former Drug use: Never Substance use type: does not use Details: 16 weeks sober Adopted: No Foster care: No Household members: family Housing: house Number of Children: 0 Communication Needs: None current occupation: not working Current gender identity: male What type of physical activity do you participate in: none and other Details: started lifting weights Frequency: daily Seatbelt use: always Drive intox or ride 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 Parents are currently out of town until next monday. Pt wakes up feeling anxious, SOB and afraid I'm gonna in my sleep. Recent lung CA dx. Exam Const General: no acute distress Orientation: alert HENMT Head: normal to inspection Ears: external ears normal General nose exam: external nose normal Mouth: moist mucous membranes Eyes General: appearance normal, both eyes and all related structures Neck Neck: normal visual inspection Resp Effort & Inspection: normal respiratory effort and able to speak in complete sentences Cardio Rate: regular rate Skin General skin exam: no rashes or lesions noted Neuro General: alert and oriented x3 Extrem General: normal to inspection Psych Mental Status: mental status grossly normal Course Vital Signs Temperature 36.8 C 10/01/18 17:57 Pulse 82 10/01/18 17:57 Respiratory Rate 16 10/01/18 17:57 Blood Pressure 162/98 H 10/01/18 17:57 Pulse Oximetry 98 10/01/18 17:57 Temperature 36.8 C 10/01/18 17:57 Temperature Source Temporal Artery Scan 10/01/18 17:57 Pulse 82 10/01/18 17:57 Respiratory Rate 16 10/01/18 17:57 Blood Pressure 162/98 H 10/01/18 17:57 Blood Pressure Position Sitting 10/01/18 17:57 Pulse Oximetry 98 10/01/18 17:57 Oxygen Delivery Method Room Air 10/01/18 17:57 Oxygen Flow Rate 0 10/01/18 17:57 Pain Level 8 10/01/18 17:57
--- NOTE | 2018-10-01 18:20 | ED.GENADUL_ITS ---
Discharge Plan Disposition Patient Disposition: HOME Condition: Stable Discharge Details Chief Complaint: Chest/Rib Clinical Impression: Anxiety, Chronic obstructive pulmonary disease Primary Care Provider: Deborah Chow ED Provider: Mj Chen Home Meds and New Rx's Prescriptions: No Action quetiapine [Seroquel] 50 mg tablet 50 mg PO QHS Qty: 90 RF: 0 Spiriva with HandiHaler 18 mcg capsule, w/inhalation device 1 cap Inhalation DAILY Qty: 90 RF: 0 hydroxyzine HCl 25 mg tablet 25 mg PO TID PRNRF: 0 albuterol sulfate [ProAir HFA] 90 mcg/actuation HFA aerosol inhaler 2 puff Inhalation Q4H PRN PRN (Reason: Shortness Of Breath) Qty: 1 RF: 1 multivitamin tablet 1 tab PO QAM Qty: 90 RF: 3 thiamine HCl (vitamin B1) 100 mg tablet 100 mg PO DAILY Qty: 90 RF: 3 OptiChamber Advantage 1 EACH spacer 1 ea Miscellaneous DIRECTED RF: 0 albuterol sulfate 2.5 MG/3 ML solution for nebulization 2.5 mg Inhalation Q4H PRN PRN (Reason: Shortness Of Breath) 30 Days RF: 0 guaifenesin [Mucus Relief] 400 mg Tablet 400 mg PO Q4H PRNRF: 0 lorazepam [Ativan] 1 mg tablet 1 mg PO BID-TID PRN (Reason: anxiety) Qty: 10 RF: 0 pantoprazole 40 mg tablet,delayed release (DR/EC) 40 mg PO DAILY Qty: 90 RF: 3 Symbicort 10.2 GM HFA aerosol inhaler 10.2 gm Inhalation BID Qty: 3 RF: 3 Discharge Instructions Additional Instructions: follow up with your primary care provider in 1-2 weeks if you have new symptoms such as persistent vomit, severe pain or high fevers, return to the emergency department Medical Decision Making 63 yo male with hx of anxiety, copd, gerd, who comes in with chief complaint of shortness of breath since yesterday and epigastric burning. The shortness of breath comes and goes especially when he feels anxious. Denies chest pain, fevers, cough, n/v. He is speaking in full sentences on exam in no dsitress. He has clear lungs, mild epigastric tenderness. I suspect his pain is due to gerd/gastritis given his hx and given lack of any significant abdominal tenderness doubt surgical pathology and do not feel ct imaging indicated. Has no hypoxia or tachycardia even with walking and no evidence of dvt so doubt Pe at this time. I suspect his symptoms are due to anxiety and advised f/u with pcp, return precautions given Differential Diagnosis gerd, gastritis, anxiety, copd ECG Data Attestation: I personally reviewed and interpreted this ECG (s) as follows: Prior ECG tracings: available for review Interpretation: sinus rythm, rate, of 72, no acute st twave ischemic changes HPI General Mode of arrival: ambulatory . Date/Time Provider Initiated Documentation: 10/01/18 17:59 . Limitations to Documentation: no limitations . Information obtained by: patient . History of Present Illness 63 year old M presents to the emergency department with the chief complaint of short of breath, described as mild, Patient started experiencing this day(s) (2) and it has been constant. No relieving factors improve symptom(s), No exacerbating factors reported . Patient notes no other symptoms.. Patient did receive the following treatments prior to arrival, none Related Data Home Medications Medication Instructions Recorded Confirmed [employer] Advantage kit 10/15/17 09/29/18 albuterol sulfate 2.5 mg INHALATION Q4H PRN PRN 30 10/15/17 10/01/18 Days ml albuterol sulfate HFA 90 2 puff INHALATION Q4H PRN PRN #1 07/02/18 10/01/18 mcg/actuation aerosol inhaler inh multivitamin tablet 1 tab PO QAM #90 tab 07/02/18 10/01/18 thiamine HCl (vitamin B1) 100 mg 100 mg PO DAILY #90 tab 07/02/18 10/01/18 tablet guaifenesin [Mucus Relief] 400 mg PO Q4H PRN 09/09/18 10/01/18 Symbicort 10.2 gm INHALATION BID #3 inhaler 09/21/18 10/01/18 lorazepam [Ativan] 1 mg PO BID-TID PRN #10 tab 09/21/18 09/29/18 pantoprazole 40 mg PO DAILY #90 tab 09/21/18 10/01/18 hydroxyzine HCl 25 mg tablet 25 mg PO TID PRN tab 09/26/18 10/01/18 quetiapine 50 mg tablet 50 mg PO QHS #90 tab 09/26/18 10/01/18 tiotropium bromide 18 mcg capsule 1 cap INHALATION DAILY #90 inh 09/26/18 10/01/18 with inhalation device Previous Rx's Medication Instructions Recorded [employer] Advantage kit 10/15/17 albuterol sulfate 2.5 mg INHALATION Q4H PRN PRN 30 10/15/17 Days ml albuterol sulfate HFA 90 2 puff INHALATION Q4H PRN PRN #1 07/02/18 mcg/actuation aerosol inhaler inh multivitamin tablet 1 tab PO QAM #90 tab 07/02/18 thiamine HCl (vitamin B1) 100 mg 100 mg PO DAILY #90 tab 07/02/18 tablet Symbicort 10.2 gm INHALATION BID #3 inhaler 09/21/18 lorazepam [Ativan] 1 mg PO BID-TID PRN #10 tab 09/21/18 pantoprazole 40 mg PO DAILY #90 tab 09/21/18 quetiapine 50 mg tablet 50 mg PO QHS #90 tab 09/26/18 tiotropium bromide 18 mcg capsule 1 cap INHALATION DAILY #90 inh 09/26/18 with inhalation device Allergies Allergy/AdvReac Type Severity Reaction Status Date / Time No Known Allergies Allergy Verified 10/01/18 17:52 General Stated Complaint: Chest/Rib FLASH: 3 Review of Systems Review of Systems All systems reviewed & are unremarkable except as noted in HPI and below Constitutional Denies chills, Denies fever(s) and Denies weakness Cardiovascular Denies chest pain Respiratory Denies cough Gastrointestinal Denies nausea and Denies vomiting Musculoskeletal Denies joint swelling Integumentary/Breasts Denies rash Neurologic Denies weakness [facility] Social History Smoking/Tobacco Use Status: Current every day Tobacco Type: cigarettes and smokeless tobacco Tobacco: How many years used: 30 Alcohol Intake: former Drug use: Never Substance use type: does not use Details: 16 weeks sober Adopted: No Foster care: No Household members: family Housing: house Number of Children: 0 Communication Needs: None current occupation: not working Current gender identity: male What type of physical activity do you participate in: none and other Details: started lifting weights Frequency: daily Seatbelt use: always Drive 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 Parents are currently out of town until next monday. Pt wakes up feeling anxious, SOB and afraid I'm gonna in my sleep. Recent lung CA dx. Exam Const General: no acute distress Orientation: alert HENMT Head: normal to inspection Ears: external ears normal General nose exam: external nose normal Mouth: moist mucous membranes Eyes General: appearance normal, both eyes and all related structures Neck Neck: normal visual inspection Resp Effort & Inspection: normal respiratory effort and able to speak in complete sentences Cardio Rate: regular rate Skin General skin exam: no rashes or lesions noted Neuro General: alert and oriented x3 Extrem General: normal to inspection Psych Mental Status: mental status grossly normal Course Vital Signs Temperature 36.8 C 10/01/18 17:57 Pulse 82 10/01/18 17:57 Respiratory Rate 16 10/01/18 17:57 Blood Pressure 162/98 H 10/01/18 17:57 Pulse Oximetry 98 10/01/18 17:57 Temperature 36.8 C 10/01/18 17:57 Temperature Source Temporal Artery Scan 10/01/18 17:57 Pulse 82 10/01/18 17:57 Respiratory Rate 16 10/01/18 17:57 Blood Pressure 162/98 H 10/01/18 17:57 Blood Pressure Position Sitting 10/01/18 17:57 Pulse Oximetry 98 10/01/18 17:57 Oxygen Delivery Method Room Air 10/01/18 17:57 Oxygen Flow Rate 0 10/01/18 17:57 Pain Level 8 10/01/18 17:57
--- NOTE | 2018-10-01 18:32 | NUR.NOTE ---
ambulated through ER several times with pulse oximeter on. readings mostly 99-98% RA and pulse 90,91.Nursing Note:
== END 2018-10-01 18:35 | disposition home or self-care (01) ==
PROVIDERS: Emergency Provider Emergency Medicine; PCP Internal Medicine
DX: J44.9 Chronic obstructive pulmonary disease, unspecified (principal); F41.9 Anxiety disorder, unspecified; R10.13 Epigastric pain; C34.91 Malignant neoplasm of unspecified part of right bronchus or lung; F17.210 Nicotine dependence, cigarettes, uncomplicated
CPT/HCPCS: 93005; 99283; 93010

== ENCOUNTER 2018-10-06 06:17 | Emergency (ER) | payer MEDICAID, SELFPAY ==
[2018-10-06 06:17] VITALS: BP 130/81; PULSE 61; RESP 16; TEMP 37.1; O2SAT 99
--- NOTE | 2018-10-06 06:39 | W.ED.GENAD ---
Discharge Plan Disposition Patient Disposition: HOME Condition: Good Discharge Details Chief Complaint: Abd Prob Clinical Impression: Epigastric abdominal pain Primary Care Provider: Deborah Chow ED Provider: Daren Chiang [place] Meds and New Rx's Prescriptions: Continued quetiapine [Seroquel] 50 mg tablet 50 mg PO QHS Qty: 90 RF: 0 Spiriva with HandiHaler 18 mcg capsule, w/inhalation device 1 cap Inhalation DAILY Qty: 90 RF: 0 hydroxyzine HCl 25 mg tablet 25 mg PO TID PRNRF: 0 albuterol sulfate [ProAir HFA] 90 mcg/actuation HFA aerosol inhaler 2 puff Inhalation Q4H PRN PRN (Reason: Shortness Of Breath) Qty: 1 RF: 1 multivitamin tablet 1 tab PO QAM Qty: 90 RF: 3 thiamine HCl (vitamin B1) 100 mg tablet 100 mg PO DAILY Qty: 90 RF: 3 fluoxetine 20 mg tablet 20 mg PO DAILY Qty: 90 RF: 3 OptiChamber Advantage 1 EACH spacer 1 ea Miscellaneous DIRECTED RF: 0 albuterol sulfate 2.5 MG/3 ML solution for nebulization 2.5 mg Inhalation Q4H PRN PRN (Reason: Shortness Of Breath) 30 Days RF: 0 guaifenesin [Mucus Relief] 400 mg Tablet 400 mg PO Q4H PRNRF: 0 pantoprazole 40 mg tablet,delayed release (DR/EC) 40 mg PO DAILY Qty: 90 RF: 3 Symbicort 10.2 GM HFA aerosol inhaler 10.2 gm Inhalation BID Qty: 3 RF: 3 Discharge Instructions Additional Instructions: You need to stop using EMS and ED for chronic complaints. You should only be using these resources for true acute emergencies. Follow-up with primary care for your chronic complaints. Referrals: Deborah Chow MD [Primary Care Provider] - Medical Decision Making I have had a another long discussion with patient regarding his use of EMS and the ED for chronic complaints. We discussed how he is bordering on abuse of the EMS system and overuse of the ED resources. His vital signs are normal. His exam is unremarkable. He has previous work-up numerous occasions for abdominal pain. He has no vomiting. His abdomen is benign. He is going to get a GI cocktail and be discharged home. Medical Records Medical records reviewed: Yes I reviewed the patient's medical records. HPI General Mode of arrival: EMS. Date/Time Provider Initiated Documentation: 10/06/18 06:32. Limitations to Documentation: no limitations. Information obtained by: patient and EMS. HPI Narrative: Patient presents to the ED once again this morning with complaint of epigastric pain. He has had multiple visits in the last month. I have seen him at least 3 or 4 times now. Typically either complains of shortness of breath or epigastric abdominal pain. He has had CT scans and labs earlier in September. He has subsequently returned to the ED a number of times as well as visits to his primary care. Once again called EMS this morning because he did not feel right and his belly was bothering him. He is not complaining of chest pain or shortness of breath this morning. He has had no nausea vomiting. He has no fever. Related Data Home Medications Medication Instructions Recorded Confirmed [employer] Advantage kit 10/15/17 10/02/18 albuterol sulfate 2.5 mg INHALATION Q4H PRN PRN 30 10/15/17 10/06/18 Days ml albuterol sulfate HFA 90 2 puff INHALATION Q4H PRN PRN #1 07/02/18 10/06/18 mcg/actuation aerosol inhaler inh multivitamin tablet 1 tab PO QAM #90 tab 07/02/18 10/06/18 thiamine HCl (vitamin B1) 100 mg 100 mg PO DAILY #90 tab 07/02/18 10/06/18 tablet guaifenesin [Mucus Relief] 400 mg PO Q4H PRN 09/09/18 10/06/18 Symbicort 10.2 gm INHALATION BID #3 inhaler 09/21/18 10/06/18 pantoprazole 40 mg PO DAILY #90 tab 09/21/18 10/06/18 hydroxyzine HCl 25 mg tablet 25 mg PO TID PRN tab 09/26/18 10/06/18 quetiapine 50 mg tablet 50 mg PO QHS #90 tab 09/26/18 10/06/18 tiotropium bromide 18 mcg capsule 1 cap INHALATION DAILY #90 inh 09/26/18 10/06/18 with inhalation device fluoxetine 20 mg tablet 20 mg PO DAILY #90 tab-cap 10/02/18 10/06/18 Previous Rx's Medication Instructions Recorded [employer] kit 10/15/17 albuterol sulfate 2.5 mg INHALATION Q4H PRN PRN 30 10/15/17 Days ml albuterol sulfate HFA 90 2 puff INHALATION Q4H PRN PRN #1 07/02/18 mcg/actuation aerosol inhaler inh multivitamin tablet 1 tab PO QAM #90 tab 07/02/18 thiamine HCl (vitamin B1) 100 mg 100 mg PO DAILY #90 tab 07/02/18 tablet Symbicort 10.2 gm INHALATION BID #3 inhaler 09/21/18 pantoprazole 40 mg PO DAILY #90 tab 09/21/18 quetiapine 50 mg tablet 50 mg PO QHS #90 tab 09/26/18 tiotropium bromide 18 mcg capsule 1 cap INHALATION DAILY #90 inh 09/26/18 with inhalation device fluoxetine 20 mg tablet 20 mg PO DAILY #90 tab-cap 10/02/18 Allergies Allergy/AdvReac Type Severity Reaction Status Date / Time No Known Allergies Allergy Verified 10/06/18 06:26 General Stated Complaint: Abd Prob FLASH: 3 Review of Systems Review of Systems As documented in HPI otherwise negative as below. Const: no fever, chills, weakness Resp: no cough, SOB, pleuritic pain CV: no CP, diaphoresis, edema, syncope GI: epigastric abdominal pain; no nausea, vomiting, diarrhea Neuro: no headache, numbness, focal weakness, confusion PFSH Medical History COPD (chronic obstructive pulmonary disease) (Chronic) Adjustment disorder with anxiety (Chronic) Alcohol abuse (Chronic) Anxiety (Chronic) Dyspepsia (Chronic) Malignant neoplasm of right lung (Chronic) Tubular adenoma of colon (Inactive) Surgical History History of lung biopsy (Resolved) History of surgery on upper extremity (Resolved) colonoscopy (Inactive 01/19/15) Social History Smoking/Tobacco Use Status: Current every day Tobacco Type: cigarettes and smokeless tobacco Tobacco: How many years used: 30 Alcohol Intake: former Drug use: Never Substance use type: does not use Details: 16 weeks sober Adopted: No Foster care: No Household members: family Housing: house Number of Children: 0 Communication Needs: None current occupation: not working Current gender identity: male What type of physical activity do you participate in: none and other Details: started lifting weights Frequency: daily Seatbelt use: always Drive 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 Parents are currently out of town until next monday. Pt wakes up feeling anxious, SOB and afraid I'm gonna in my sleep. Recent lung CA dx. Exam Narrative Exam Narrative: Vitals: Normal with normal pulse ox. Const: WDWN male in NAD. Eyes: Normal conjunctiva and sclera. Neck: Supple. Trachea midline. Lungs: Normal respiratory effort. Lungs are clear. Cor: RRR without murmur/gallop. Good radial pulses. GI: Soft. NT/ND. No guarding or rebound. Completely benign abdomen. Neuro: A+O x 3. CN grossly in tact. Good strength and no focal deficit. Course Vital Signs Temperature 98.8 F 10/06/18 06:17 Pulse 61 10/06/18 06:17 Respiratory Rate 16 10/06/18 06:17 Blood Pressure 130/81 10/06/18 06:17 Pulse Oximetry 99 10/06/18 06:17 Temperature 98.8 F 10/06/18 06:17 Temperature Source Temporal Artery Scan 10/06/18 06:17 Pulse 61 10/06/18 06:17 Respiratory Rate 16 10/06/18 06:17 Respiratory Effort 10/06/18 06:17 Blood Pressure 130/81 10/06/18 06:17 Pulse Oximetry 99 10/06/18 06:17 Oxygen Delivery Method Room Air 10/06/18 06:17 Oxygen Flow Rate 0 10/06/18 06:17 Pain Level 8 10/06/18 06:17
--- NOTE | 2018-10-06 06:53 | ED.GENADUL_ITS ---
Discharge Plan Disposition Patient Disposition: HOME Condition: Good Discharge Details Chief Complaint: Abd Prob Clinical Impression: Epigastric abdominal pain Primary Care Provider: Deborah Chow ED Provider: Daren Chiang [place] Meds and New Rx's Prescriptions: Continued quetiapine [Seroquel] 50 mg tablet 50 mg PO QHS Qty: 90 RF: 0 Spiriva with HandiHaler 18 mcg capsule, w/inhalation device 1 cap Inhalation DAILY Qty: 90 RF: 0 hydroxyzine HCl 25 mg tablet 25 mg PO TID PRNRF: 0 albuterol sulfate [ProAir HFA] 90 mcg/actuation HFA aerosol inhaler 2 puff Inhalation Q4H PRN PRN (Reason: Shortness Of Breath) Qty: 1 RF: 1 multivitamin tablet 1 tab PO QAM Qty: 90 RF: 3 thiamine HCl (vitamin B1) 100 mg tablet 100 mg PO DAILY Qty: 90 RF: 3 fluoxetine 20 mg tablet 20 mg PO DAILY Qty: 90 RF: 3 [employer] Advantage 1 EACH spacer 1 ea Miscellaneous DIRECTED RF: 0 albuterol sulfate 2.5 MG/3 ML solution for nebulization 2.5 mg Inhalation Q4H PRN PRN (Reason: Shortness Of Breath) 30 Days RF: 0 guaifenesin [Mucus Relief] 400 mg Tablet 400 mg PO Q4H PRNRF: 0 pantoprazole 40 mg tablet,delayed release (DR/EC) 40 mg PO DAILY Qty: 90 RF: 3 Symbicort 10.2 GM HFA aerosol inhaler 10.2 gm Inhalation BID Qty: 3 RF: 3 Discharge Instructions Additional Instructions: You need to stop using EMS and ED for chronic complaints. You should only be using these resources for true acute emergencies. Follow-up with primary care for your chronic complaints. Referrals: Deborah Chow MD [Primary Care Provider] - Medical Decision Making I have had a another long discussion with patient regarding his use of EMS and the ED for chronic complaints. We discussed how he is bordering on abuse of the EMS system and overuse of the ED resources. His vital signs are normal. His exam is unremarkable. He has previous work-up numerous occasions for abdominal pain. He has no vomiting. His abdomen is benign. He is going to get a GI cocktail and be discharged home. Medical Records Medical records reviewed: Yes I reviewed the patient's medical records. HPI General Mode of arrival: EMS . Date/Time Provider Initiated Documentation: 10/06/18 06:32 . Limitations to Documentation: no limitations . Information obtained by: patient and EMS . HPI Narrative: Patient presents to the ED once again this morning with complaint of epigastric pain. He has had multiple visits in the last month. I have seen him at least 3 or 4 times now. Typically either complains of shortness of breath or epigastric abdominal pain. He has had CT scans and labs earlier in September. He has s ubsequently returned to the ED a number of times as well as visits to his primary care. Once again called EMS this morning because he did not feel right and his belly was bothering him. He is not complaining of chest pain or shortness of breath this morning. He has had no nausea vomiting. He has no fever. Related Data Home Medications Medication Instructions Recorded Confirmed [employer] Advantage kit 10/15/17 10/02/18 albuterol sulfate 2.5 mg INHALATION Q4H PRN PRN 30 10/15/17 10/06/18 Days ml albuterol sulfate HFA 90 2 puff INHALATION Q4H PRN PRN #1 07/02/18 10/06/18 mcg/actuation aerosol inhaler inh multivitamin tablet 1 tab PO QAM #90 tab 07/02/18 10/06/18 thiamine HCl (vitamin B1) 100 mg 100 mg PO DAILY #90 tab 07/02/18 10/06/18 tablet guaifenesin [Mucus Relief] 400 mg PO Q4H PRN 09/09/18 10/06/18 Symbicort 10.2 gm INHALATION BID #3 inhaler 09/21/18 10/06/18 pantoprazole 40 mg PO DAILY #90 tab 09/21/18 10/06/18 hydroxyzine HCl 25 mg tablet 25 mg PO TID PRN tab 09/26/18 10/06/18 quetiapine 50 mg tablet 50 mg PO QHS #90 tab 09/26/18 10/06/18 tiotropium bromide 18 mcg capsule 1 cap INHALATION DAILY #90 inh 09/26/18 10/06/18 with inhalation device fluoxetine 20 mg tablet 20 mg PO DAILY #90 tab-cap 10/02/18 10/06/18 Previous Rx's Medication Instructions Recorded [employer] Advantage kit 10/15/17 albuterol sulfate 2.5 mg INHALATION Q4H PRN PRN 30 10/15/17 Days ml albuterol sulfate HFA 90 2 puff INHALATION Q4H PRN PRN #1 07/02/18 mcg/actuation aerosol inhaler inh multivitamin tablet 1 tab PO QAM #90 tab 07/02/18 thiamine HCl (vitamin B1) 100 mg 100 mg PO DAILY #90 tab 07/02/18 tablet Symbicort 10.2 gm INHALATION BID #3 inhaler 09/21/18 pantoprazole 40 mg PO DAILY #90 tab 09/21/18 quetiapine 50 mg tablet 50 mg PO QHS #90 tab 09/26/18 tiotropium bromide 18 mcg capsule 1 cap INHALATION DAILY #90 inh 09/26/18 with inhalation device fluoxetine 20 mg tablet 20 mg PO DAILY #90 tab-cap 10/02/18 Allergies Allergy/AdvReac Type Severity Reaction Status Date / Time No Known Allergies Allergy Verified 10/06/18 06:26 General Stated Complaint: Abd Prob FLASH: 3 Review of Systems Review of Systems As documented in HPI otherwise negative as below. Const: no fever, chills, weakness Resp: no cough, SOB, pleuritic pain CV: no CP, diaphoresis, edema, syncope GI: epigastric abdominal pain; no nausea, vomiting, diarrhea Neuro: no headache, numbness, focal weakness, confusion PFSH Medical History COPD (chronic obstructive pulmonary disease) (Chronic) Adjustment disorder with anxiety (Chronic) Alcohol abuse (Chronic) Anxiety (Chronic) Dyspepsia (Chronic) Malignant neoplasm of right lung (Chronic) Tubular adenoma of colon (Inactive) Surgical History History of lung biopsy (Resolved) History of surgery on upper extremity (Resolved) colonoscopy (Inactive 01/19/15) Social History Smoking/Tobacco Use Status: Current every day Tobacco Type: cigarettes and smokeless tobacco Tobacco: How many years used: 30 Alcohol Intake: former Drug use: Never Substance use type: does not use Details: 16 weeks sober Adopted: No Foster care: No Household members: family Housing: house Number of Children: 0 Communication Needs: None current occupation: not working Current gender identity: male What type of physical activity do you participate in: none and other Details: started lifting weights Frequency: daily Seatbelt use: always Drive intox or ride w/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 Parents are currently out of town until next monday. Pt wakes up feeling anxious, SOB and afraid I'm gonna in my sleep. Recent lung CA dx. Exam Narrative Exam Narrative: Vitals: Normal with normal pulse ox. Const: WDWN male in NAD. Eyes: Normal conjunctiva and sclera. Neck: Supple. Trachea midline. Lungs: Normal respiratory effort. Lungs are clear. Cor: RRR without murmur/gallop. Good radial pulses. GI: Soft. NT/ND. No guarding or rebound. Completely benign abdomen. Neuro: A+O x 3. CN grossly in tact. Good strength and no focal deficit. Course Vital Signs Temperature 98.8 F 10/06/18 06:17 Pulse 61 10/06/18 06:17 Respiratory Rate 16 10/06/18 06:17 Blood Pressure 130/81 10/06/18 06:17 Pulse Oximetry 99 10/06/18 06:17 Temperature 98.8 F 10/06/18 06:17 Temperature Source Temporal Artery Scan 10/06/18 06:17 Pulse 61 10/06/18 06:17 Respiratory Rate 16 10/06/18 06:17 Respiratory Effort 10/06/18 06:17 Blood Pressure 130/81 10/06/18 06:17 Pulse Oximetry 99 10/06/18 06:17 Oxygen Delivery Method Room Air 10/06/18 06:17 Oxygen Flow Rate 0 10/06/18 06:17 Pain Level 8 10/06/18 06:17
[2018-10-06 06:56] VITALS: BP 128/83; PULSE 65; RESP 15; TEMP 36.8; O2SAT 98
[2018-10-06 07:02] VITALS: BP 128/83; PULSE 65; RESP 15; TEMP 36.8; O2SAT 98
== END 2018-10-06 07:02 | disposition home or self-care (01) ==
PROVIDERS: Emergency Provider Emergency Medicine; PCP Internal Medicine
DX: R10.13 Epigastric pain (principal); J44.9 Chronic obstructive pulmonary disease, unspecified; F17.210 Nicotine dependence, cigarettes, uncomplicated; F17.290 Nicotine dependence, other tobacco product, uncomplicated
CPT/HCPCS: 99283

== ENCOUNTER 2018-10-11 20:21 | Emergency (ER) | payer MEDICAID, SELFPAY ==
[2018-10-11 20:34] VITALS: BP 141/69; PULSE 78; RESP 18; TEMP 36.8; O2SAT 100
[2018-10-11 20:41] VITALS: RESP 18
--- NOTE | 2018-10-11 20:46 | W.ED.GENAD ---
Discharge Plan Disposition Patient Disposition: HOME Condition: Good Discharge Details Chief Complaint: SOB Clinical Impression: Epigastric pain Primary Care Provider: Deborah Chow ED Provider: Daren Chiang [place] Meds and New Rx's Prescriptions: Continued quetiapine [Seroquel] 50 mg tablet 50 mg PO QHS Qty: 90 RF: 0 Spiriva with HandiHaler 18 mcg capsule, w/inhalation device 1 cap Inhalation DAILY Qty: 90 RF: 0 hydroxyzine HCl 25 mg tablet 25 mg PO TID PRNRF: 0 albuterol sulfate [ProAir HFA] 90 mcg/actuation HFA aerosol inhaler 2 puff Inhalation Q4H PRN PRN (Reason: Shortness Of Breath) Qty: 1 RF: 1 multivitamin tablet 1 tab PO QAM Qty: 90 RF: 3 thiamine HCl (vitamin B1) 100 mg tablet 100 mg PO DAILY Qty: 90 RF: 3 fluoxetine 20 mg tablet 20 mg PO DAILY Qty: 90 RF: 3 OptiChamber Advantage 1 EACH spacer 1 ea Miscellaneous DIRECTED RF: 0 albuterol sulfate 2.5 MG/3 ML solution for nebulization 2.5 mg Inhalation Q4H PRN PRN (Reason: Shortness Of Breath) 30 Days RF: 0 guaifenesin [Mucus Relief] 400 mg Tablet 400 mg PO Q4H PRNRF: 0 pantoprazole 40 mg tablet,delayed release (DR/EC) 40 mg PO DAILY Qty: 90 RF: 3 Symbicort 10.2 GM HFA aerosol inhaler 10.2 gm Inhalation BID Qty: 3 RF: 3 Discharge Instructions Additional Instructions: Continue current medications. Do not take any more magnesium citrate. Follow up with your doctor next week if needed. Return to ED for fever, chest pain, increasing shortness of breath, vomiting, new/worse abdominal pain. Referrals: Deborah Chow MD [Primary Care Provider] - Discharge Data Discharge Date/Time-TO BE ENTERED AT DEPARTURE: 10/11/18 21:13 Medical Decision Making Patient well-known to me. He looks well. Lungs are clear. Denies shortness of breath just feels that he cannot take a deep breath because of epigastric discomfort. Has a benign abdomen. He is given a GI cocktail with resolution of all of his symptoms. He no longer has the discomfort and feels that he can take deep breaths again. No further work-up initiated. Patient to continue previous medications and follow-up with primary care next week. Return to ED for new or worsening symptoms. HPI General Mode of arrival: ambulatory. Date/Time Provider Initiated Documentation: 10/11/18 20:25. Limitations to Documentation: no limitations. Information obtained by: patient. HPI Narrative: Patient presents to ED stating he feels short of breath and is having epigastric discomfort. On further questioning regarding the shortness of breath he just states that he feels like he cannot take a breath because of the discomfort and bloating that he feels in his abdomen. States he has not had a bowel movement for 4 days until this afternoon after taking mag citrate. He subsequently developed some epigastric discomfort which he has had previously and been here for. He denies having chest pain. He states he feels like he cannot take a deep breath and its making him concerned. He has no fever. He has been him multiple times in the past with similar complaints. Related Data Home Medications Medication Instructions Recorded [facility]17 10/02/18 albuterol sulfate 2.5 mg INHALATION Q4H PRN PRN 30 10/15/17 10/11/18 Days ml albuterol sulfate HFA 90 2 puff INHALATION Q4H PRN PRN #1 07/02/18 10/11/18 mcg/actuation aerosol inhaler inh multivitamin tablet 1 tab PO QAM #90 tab 07/02/18 10/11/18 thiamine HCl (vitamin B1) 100 mg 100 mg PO DAILY #90 tab 07/02/18 10/11/18 tablet guaifenesin [Mucus Relief] 400 mg PO Q4H PRN 09/09/18 10/11/18 Symbicort 10.2 gm INHALATION BID #3 inhaler 09/21/18 10/11/18 pantoprazole 40 mg PO DAILY #90 tab 09/21/18 10/11/18 hydroxyzine HCl 25 mg tablet 25 mg PO TID PRN tab 09/26/18 10/11/18 quetiapine 50 mg tablet 50 mg PO QHS #90 tab 09/26/18 10/11/18 tiotropium bromide 18 mcg capsule 1 cap INHALATION DAILY #90 inh 09/26/18 10/11/18 with inhalation device fluoxetine 20 mg tablet 20 mg PO DAILY #90 tab-cap 10/02/18 10/11/18 Previous Rx's Medication Instructions Recorded Cynthiaber Advantage kit 10/15/17 albuterol sulfate 2.5 mg INHALATION Q4H PRN PRN 30 10/15/17 Days ml albuterol sulfate HFA 90 2 puff INHALATION Q4H PRN PRN #1 07/02/18 mcg/actuation aerosol inhaler inh multivitamin tablet 1 tab PO QAM #90 tab 07/02/18 thiamine HCl (vitamin B1) 100 mg 100 mg PO DAILY #90 tab 07/02/18 tablet Symbicort 10.2 gm INHALATION BID #3 inhaler 09/21/18 pantoprazole 40 mg PO DAILY #90 tab 09/21/18 quetiapine 50 mg tablet 50 mg PO QHS #90 tab 09/26/18 tiotropium bromide 18 mcg capsule 1 cap INHALATION DAILY #90 inh 09/26/18 with inhalation device fluoxetine 20 mg tablet 20 mg PO DAILY #90 tab-cap 10/02/18 Allergies Allergy/AdvReac Type Severity Reaction Status Date / Time No Known Allergies Allergy Verified 10/06/18 06:26 General Stated Complaint: SOB FLASH: 3 Review of Systems Review of Systems As documented in HPI otherwise negative as below. 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 Adopted: No Foster care: No Household members: family Housing: house Number of Children: 0 Communication Needs: None current occupation: not working Current gender identity: male What type of physical activity do you participate in: none and other Details: started lifting weights Frequency: daily Seatbelt use: always 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 Parents are currently out of town until next monday. Pt wakes up feeling anxious, SOB and afraid I'm gonna in my sleep. Recent lung CA dx. Exam Narrative Exam Narrative: Vitals: Mildly hypertensive, otherwise normal. Const: WDWN male in NAD. HEENT: NC/AT. Normal facial exam. Neck: Supple. Trachea midline. Lungs: Normal respiratory effort. Lungs are clear. Cor: RRR without murmur/gallop. Good radial pulses. GI: Soft. NT/ND. No guarding or rebound. Neuro: A+O x 3. CN grossly in tact. Good strength and no focal deficit. Ext: No C/C/E. No deformity or tenderness. Skin: Warm and dry without rash. Course Vital Signs Temperature 98.2 F 10/11/18 20:34 Pulse 78 10/11/18 20:34 Respiratory Rate 18 10/11/18 20:34 Blood Pressure 141/69 H 10/11/18 20:34 Pulse Oximetry 100 10/11/18 20:34 Temperature 98.2 F 10/11/18 20:34 Temperature Source Temporal Artery Scan 10/11/18 20:34 Pulse 78 10/11/18 20:34 Respiratory Rate 18 10/11/18 20:41 Respiratory Effort 10/11/18 20:41 Respiratory Depth Normal 10/11/18 20:41 Respiratory Pattern Normal 10/11/18 20:41 Blood Pressure 141/69 H 10/11/18 20:34 Pulse Oximetry 100 10/11/18 20:34 Oxygen Delivery Method Room Air 10/11/18 20:34 Oxygen Flow Rate 0 10/11/18 20:34 Pain Level 5 10/11/18 20:34
--- NOTE | 2018-10-11 20:49 | ED.GENADUL_ITS ---
Discharge Plan Disposition Patient Disposition: HOME Condition: Good Discharge Details Chief Complaint: SOB Clinical Impression: Epigastric pain Primary Care Provider: Deborah Chow ED Provider: Daren Chiang [place] Meds and New Rx's Prescriptions: Continued quetiapine [Seroquel] 50 mg tablet 50 mg PO QHS Qty: 90 RF: 0 Spiriva with HandiHaler 18 mcg capsule, w/inhalation device 1 cap Inhalation DAILY Qty: 90 RF: 0 hydroxyzine HCl 25 mg tablet 25 mg PO TID PRNRF: 0 albuterol sulfate [ProAir HFA] 90 mcg/actuation HFA aerosol inhaler 2 puff Inhalation Q4H PRN PRN (Reason: Shortness Of Breath) Qty: 1 RF: 1 multivitamin tablet 1 tab PO QAM Qty: 90 RF: 3 thiamine HCl (vitamin B1) 100 mg tablet 100 mg PO DAILY Qty: 90 RF: 3 fluoxetine 20 mg tablet 20 mg PO DAILY Qty: 90 RF: 3 OptiChamber Advantage 1 EACH spacer 1 ea Miscellaneous DIRECTED RF: 0 albuterol sulfate 2.5 MG/3 ML solution for nebulization 2.5 mg Inhalation Q4H PRN PRN (Reason: Shortness Of Breath) 30 Days RF: 0 guaifenesin [Mucus Relief] 400 mg Tablet 400 mg PO Q4H PRNRF: 0 pantoprazole 40 mg tablet,delayed release (DR/EC) 40 mg PO DAILY Qty: 90 RF: 3 Symbicort 10.2 GM HFA aerosol inhaler 10.2 gm Inhalation BID Qty: 3 RF: 3 Discharge Instructions Additional Instructions: Continue current medications. Do not take any more magnesium citrate. Follow up with your doctor next week if needed. Return to ED for fever, chest pain, increasing shortness of breath, vomiting, new/worse abdominal pain. Referrals: Deborah Chow MD [Primary Care Provider] - Discharge Data Discharge Date/Time-TO BE ENTERED AT DEPARTURE: 10/11/18 21:13 Medical Decision Making Patient well-known to me. He looks well. Lungs are clear. Denies shortness of breath just feels that he cannot take a deep breath because of epigastric discomfort. Has a benign abdomen. He is given a GI cocktail with resolution of all of his symptoms. He no longer has the discomfort and feels that he can take deep breaths again. No further work-up initiated. Patient to continue previous medications and follow-up with primary care next week. Return to ED for new or worsening symptoms. HPI General Mode of arrival: ambulatory . Date/Time Provider Initiated Documentation: 10/11/18 20:25 . Limitations to Documentation: no limitations . Information obtained by: patient . HPI Narrative: Patient presents to ED stating he feels short of breath and is having epigastric discomfort. On further questioning regarding the shortness of breath he just states that he feels like he cannot take a breath because of the discomfort and bloating that he feels in his abdomen. States he has not had a bowel movement for 4 days until this afternoon after taking mag citrate. He subsequently developed some epigastric discomfort which he has had previously and been here for. He denies having chest pain. He states he feels like he cannot take a deep breath and its making him concerned. He has no fever. He has been him multiple times in the past with similar complaints. Related Data Home Medications Medication Instructions Recorded [email or web address] 10/15/17 10/02/18 albuterol sulfate 2.5 mg INHALATION Q4H PRN PRN 30 10/15/17 10/11/18 Days ml albuterol sulfate HFA 90 2 puff INHALATION Q4H PRN PRN #1 07/02/18 10/11/18 mcg/actuation aerosol inhaler inh multivitamin tablet 1 tab PO QAM #90 tab 07/02/18 10/11/18 thiamine HCl (vitamin B1) 100 mg 100 mg PO DAILY #90 tab 07/02/18 10/11/18 tablet guaifenesin [Mucus Relief] 400 mg PO Q4H PRN 09/09/18 10/11/18 Symbicort 10.2 gm INHALATION BID #3 inhaler 09/21/18 10/11/18 pantoprazole 40 mg PO DAILY #90 tab 09/21/18 10/11/18 hydroxyzine HCl 25 mg tablet 25 mg PO TID PRN tab 09/26/18 10/11/18 quetiapine 50 mg tablet 50 mg PO QHS #90 tab 09/26/18 10/11/18 tiotropium bromide 18 mcg capsule 1 cap INHALATION DAILY #90 inh 09/26/18 10/11/18 with inhalation device fluoxetine 20 mg tablet 20 mg PO DAILY #90 tab-cap 10/02/18 10/11/18 Previous Rx's Medication Instructions Recorded [employer]th[employer]er Advantage kit 10/15/17 albuterol sulfate 2.5 mg INHALATION Q4H PRN PRN 30 10/15/17 Days ml albuterol sulfate HFA 90 2 puff INHALATION Q4H PRN PRN #1 07/02/18 mcg/actuation aerosol inhaler inh multivitamin tablet 1 tab PO QAM #90 tab 07/02/18 thiamine HCl (vitamin B1) 100 mg 100 mg PO DAILY #90 tab 07/02/18 tablet Symbicort 10.2 gm INHALATION BID #3 inhaler 09/21/18 pantoprazole 40 mg PO DAILY #90 tab 09/21/18 quetiapine 50 mg tablet 50 mg PO QHS #90 tab 09/26/18 tiotropium bromide 18 mcg capsule 1 cap INHALATION DAILY #90 inh 09/26/18 with inhalation device fluoxetine 20 mg tablet 20 mg PO DAILY #90 tab-cap 10/02/18 Allergies Allergy/AdvReac Type Severity Reaction Status Date / Time No Known Allergies Allergy Verified 10/06/18 06:26 General Stated Complaint: SOB FLASH: 3 Review of Systems Review of Systems As documented in HPI otherwise negative as below. 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 Adopted: No Foster care: No Household members: family Housing: house Number of Children: 0 Communication Needs: None current occupation: not working Current gender identity: male What type of physical activity do you participate in: none and other Details: started lifting weights Frequency: daily Seatbelt use: always 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 Parents are currently out of town until next monday. Pt wakes up feeling anxious, SOB and afraid I'm gonna in my sleep. Recent lung CA dx. Exam Narrative Exam Narrative: Vitals: Mildly hypertensive, otherwise normal. Const: WDWN male in NAD. HEENT: NC/AT. Normal facial exam. Neck: Supple. Trachea midline. Lungs: Normal respiratory effort. Lungs are clear. Cor: RRR without murmur/gallop. Good radial pulses. GI: Soft. NT/ND. No guarding or rebound. Neuro: A+O x 3. CN grossly in tact. Good strength and no focal deficit. Ext: No C/C/E. No deformity or tenderness. Skin: Warm and dry without rash. Course Vital Signs Temperature 98.2 F 10/11/18 20:34 Pulse 78 10/11/18 20:34 Respiratory Rate 18 10/11/18 20:34 Blood Pressure 141/69 H 10/11/18 20:34 Pulse Oximetry 100 10/11/18 20:34 Temperature 98.2 F 10/11/18 20:34 Temperature Source Temporal Artery Scan 10/11/18 20:34 Pulse 78 10/11/18 20:34 Respiratory Rate 18 10/11/18 20:41 Respiratory Effort 10/11/18 20:41 Respiratory Depth Normal 10/11/18 20:41 Respiratory Pattern Normal 10/11/18 20:41 Blood Pressure 141/69 H 10/11/18 20:34 Pulse Oximetry 100 10/11/18 20:34 Oxygen Delivery Method Room Air 10/11/18 20:34 Oxygen Flow Rate 0 10/11/18 20:34 Pain Level 5 10/11/18 20:34
== END 2018-10-11 21:13 | disposition home or self-care (01) ==
PROVIDERS: Emergency Provider Emergency Medicine; PCP Internal Medicine
DX: R10.13 Epigastric pain (principal); K59.00 Constipation, unspecified
CPT/HCPCS: 99283

== ENCOUNTER 2018-10-12 18:45 | Emergency (ER) | payer MEDICAID, SELFPAY ==
[2018-10-12 18:59] VITALS: BP 144/82; PULSE 81; RESP 20; TEMP 36.8; O2SAT 96
[2018-10-12] MEDS: Acetaminophen 325 MG TAB 650 MG PO (20:18)
--- NOTE | 2018-10-12 20:47 | W.ED.GENAD ---
Discharge Plan Disposition Patient Disposition: HOME Condition: Improving Discharge Details Chief Complaint: FlankPain Clinical Impression: Chronic obstructive pulmonary disease, Back strain, Anxiety about health Primary Care Provider: Deborah Chow ED Provider: Dontrell Rudolph Home Meds and New Rx's Prescriptions: No Action quetiapine [Seroquel] 50 mg tablet 50 mg PO QHS Qty: 90 RF: 0 Spiriva with HandiHaler 18 mcg capsule, w/inhalation device 1 cap Inhalation DAILY Qty: 90 RF: 0 hydroxyzine HCl 25 mg tablet 25 mg PO TID PRNRF: 0 albuterol sulfate [ProAir HFA] 90 mcg/actuation HFA aerosol inhaler 2 puff Inhalation Q4H PRN PRN (Reason: Shortness Of Breath) Qty: 1 RF: 1 multivitamin tablet 1 tab PO QAM Qty: 90 RF: 3 thiamine HCl (vitamin B1) 100 mg tablet 100 mg PO DAILY Qty: 90 RF: 3 fluoxetine 20 mg tablet 20 mg PO DAILY Qty: 90 RF: 3 OptiChamber Advantage 1 EACH spacer 1 ea Miscellaneous DIRECTED RF: 0 albuterol sulfate 2.5 MG/3 ML solution for nebulization 2.5 mg Inhalation Q4H PRN PRN (Reason: Shortness Of Breath) 30 Days RF: 0 guaifenesin [Mucus Relief] 400 mg Tablet 400 mg PO Q4H PRNRF: 0 pantoprazole 40 mg tablet,delayed release (DR/EC) 40 mg PO DAILY Qty: 90 RF: 3 Symbicort 10.2 GM HFA aerosol inhaler 10.2 gm Inhalation BID Qty: 3 RF: 3 Discharge Instructions Instructions: COPD (Chronic Obstructive Pulmonary Disease) (ED), Low Back Strain (ED), Anxiety (ED) Additional Instructions: Continue to take your medications as prescribed and follow-up with your primary care provider as needed. Use your home albuterol as needed for any further difficulty breathing/shortness of breath and follow-up with your primary care provider also if this continues Referrals: Deborah Chow MD [Primary Care Provider] - 1 week (For reassessment of your condition) Medical Decision Making Patient presenting to the emergency department for chief complaint of difficulty breathing. Patient states that this is a long ongoing but at times he feels like he cannot catch his breath. Patient has no signs of tachypnea, patient is able to speak in full sentences, and has no signs of acute distress. Patient also states some back pain that he started having after helping his father work on the lawn more. Patient does have palpable muscular back pain to the left lower spine but no midline tenderness, no step-off, no deformity noted. Patient has no neurological dysfunction and otherwise unremarkable exam. After discussion of this then patient states that he has been having some black bloody bowel movements. Patient has only mild epigastric tenderness which is ongoing but no other acute findings are noted. Patient is well-known to the emergency department and has multiple visits to the ED which seem to be anxiety related. We will plan on giving acetaminophen for his back pain, albuterol for his reported difficulty breathing, and obtaining a stool specimen to check for occult blood. At this time patient is not tachycardic hypotensive and no acute signs of shock or sepsis. Patient was able to provide a stool specimen that appears normal and was Hemoccult negative. Since patient was able to provide stool specimen rectal exam was not performed. Patient also reassessed after acetaminophen and albuterol and states improvement of his difficulty breathing and resolution of his back pain. Patient then began complaining of his epigastric discomfort which she has a long ongoing history of. At this point given patient's multiple emergency department visits I do not feel that any work-up or interventions are needed and that patient should go home and use his normally prescribed medication for his gastritis/epigastric pain. There is a strong component of anxiety about patient's health complaints and his addition to multiple complaints and numerous emergency department visits. Patient was encouraged to follow-up with primary care provider to discuss his management of COPD and epigastric pain and for reassessment. [facility] General Mode of arrival: ambulatory. Date/Time Provider Initiated Documentation: 10/12/18 18:54. Limitations to Documentation: no limitations. Information obtained by: patient and RN notes reviewed. History of Present Illness 63 year old M presents to the emergency department with the chief complaint of Dyspnea, described as similar to prior episodes, with intensity rated at 7. Quality is described as aching, and is localized to the back and left. Patient started experiencing this hour(s) (3) No relieving factors improve symptom(s), Movement worsens symptoms . Patient notes no other symptoms.. Patient did receive the following treatments prior to arrival, none Related Data Home Medications Medication Instructions Recorded Confirmed PolyMedix kit 10/15/17 10/02/18 albuterol sulfate 2.5 mg INHALATION Q4H PRN PRN 30 10/15/17 10/11/18 Days ml albuterol sulfate HFA 90 2 puff INHALATION Q4H PRN PRN #1 07/02/18 10/11/18 mcg/actuation aerosol inhaler inh multivitamin tablet 1 tab PO QAM #90 tab 07/02/18 10/11/18 thiamine HCl (vitamin B1) 100 mg 100 mg PO DAILY #90 tab 07/02/18 10/11/18 tablet guaifenesin [Mucus Relief] 400 mg PO Q4H PRN 09/09/18 10/11/18 Symbicort 10.2 gm INHALATION BID #3 inhaler 09/21/18 10/11/18 pantoprazole 40 mg PO DAILY #90 tab 09/21/18 10/11/18 hydroxyzine HCl 25 mg tablet 25 mg PO TID PRN tab 09/26/18 10/11/18 quetiapine 50 mg tablet 50 mg PO QHS #90 tab 09/26/18 10/11/18 tiotropium bromide 18 mcg capsule 1 cap INHALATION DAILY #90 inh 09/26/18 10/11/18 with inhalation device fluoxetine 20 mg tablet 20 mg PO DAILY #90 tab-cap 10/02/18 10/11/18 Previous Rx's Medication Instructions Recorded [facility] Salesconx kit 10/15/17 albuterol sulfate 2.5 mg INHALATION Q4H PRN PRN 30 10/15/17 Days ml albuterol sulfate HFA 90 2 puff INHALATION Q4H PRN PRN #1 07/02/18 mcg/actuation aerosol inhaler inh multivitamin tablet 1 tab PO QAM #90 tab 07/02/18 thiamine HCl (vitamin B1) 100 mg 100 mg PO DAILY #90 tab 07/02/18 tablet Symbicort 10.2 gm INHALATION BID #3 inhaler 09/21/18 pantoprazole 40 mg PO DAILY #90 tab 09/21/18 quetiapine 50 mg tablet 50 mg PO QHS #90 tab 09/26/18 tiotropium bromide 18 mcg capsule 1 cap INHALATION DAILY #90 inh 09/26/18 with inhalation device fluoxetine 20 mg tablet 20 mg PO DAILY #90 tab-cap 10/02/18 Allergies Allergy/AdvReac Type Severity Reaction Status Date / Time No Known Allergies Allergy Verified 10/12/18 19:04 General Stated Complaint: FlankPain FLASH: 3 Review of Systems Constitutional Denies chills, Denies fever(s) and Denies malaise Cardiovascular Reports as per HPI, Reports chest pain, Denies chest pain with activity, Denies syncope, Denies irregular heart rhythm, Denies palpitations and Denies dyspnea Respiratory Denies cough, Denies hemoptysis and Denies dyspnea Gastrointestinal Denies abdominal pain, Denies nausea and Denies vomiting Neurologic Denies syncope Psychiatric Denies anxiety Endocrine Denies cold intolerance, Denies heat intolerance and Denies palpitations [facility] Social History Smoking/Tobacco Use Status: Current every day Tobacco Type: cigarettes and smokeless tobacco Tobacco: How many years used: 30 Alcohol Intake: former Drug use: Never Substance use type: does not use Details: 16 weeks sober Adopted: No Foster care: No Household members: family Housing: house Number of Children: 0 Communication Needs: None current occupation: not working Current gender identity: male What type of physical activity do you participate in: none and other Details: started lifting weights Frequency: daily Seatbelt use: always Drive intox 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 Parents are currently out of town until next monday. Pt wakes up feeling anxious, SOB and afraid I'm gonna in my sleep. Recent lung CA dx. Exam Const General: cooperative, healthy appearing, comfortable, no acute distress, not diaphoretic and not ill appearing Nutritional Appearance: average body habitus Orientation: alert, awake and oriented x3 Limitations: mental status not altered Neck Neck: normal visual inspection, full ROM, trachea midline, supple and no anterior neck swelling Thyroid: thyroid normal Carotids: normal carotid upstroke and no bruits Chest Chest: normal inspection of the chest Resp Effort & Inspection: normal respiratory effort and able to speak in complete sentences Auscultation: clear to auscultation bilaterally Cardio Jugular venous pressure: no JVD Palpation: normal PMI Rate: regular rate Rhythm: regular rhythm Heart Sounds: S1 normal, S2 normal, no click, no gallops, no murmurs and no rubs Bruits: no abdominal aortic bruits and no carotid bruits Pulses: radial pulses present bilaterally 2+ GI Inspection: normal to inspection Palpation: soft, no aortic enlargement, no pulsatile masses and nontender Auscultation: normal bowel sounds Skin General skin exam: no rashes or lesions noted Neuro General: alert, awake, oriented x3, tone normal and moves all extremities Course Vital Signs Temperature 36.8 C 10/12/18 18:59 Pulse 81 10/12/18 18:59 Respiratory Rate 20 10/12/18 18:59 Blood Pressure 144/82 H 10/12/18 18:59 Pulse Oximetry 96 10/12/18 18:59 Temperature 36.8 C 10/12/18 18:59 Temperature Source Temporal Artery Scan 10/12/18 18:59 Pulse 81 10/12/18 18:59 Respiratory Rate 20 10/12/18 18:59 Respiratory Effort Non-Labored 10/12/18 18:59 Blood Pressure 144/82 H 10/12/18 18:59 Blood Pressure Position Supine 10/12/18 18:59 Pulse Oximetry 96 10/12/18 18:59 Oxygen Delivery Method Room Air 10/12/18 18:59 Oxygen Flow Rate 0 10/12/18 18:59 Pain Level 8 10/12/18 20:18
[2018-10-12 20:57] VITALS: RESP 8
[2018-10-12] MEDS: Albuterol 2.5 MG/3 ML INH SOLN VIAL UPD (20:57)
--- NOTE | 2018-10-12 21:08 | NUR.NOTE ---
Nursing Note: neb treatment helped but still feels tight, breathing easily, talking in full sentences, color normal, SOURCING SPECIALIST aware.
[2018-10-12 21:27] VITALS: RESP 1; RESP 8
== END 2018-10-12 21:25 | disposition home or self-care (01) ==
PROVIDERS: Emergency Provider Nurse Practitioner Family; PCP Internal Medicine
DX: R06.02 Shortness of breath (principal); J44.9 Chronic obstructive pulmonary disease, unspecified; F17.210 Nicotine dependence, cigarettes, uncomplicated; S39.012A Strain of muscle, fascia and tendon of lower back, initial encounter; X50.1XXA Overexertion from prolonged static or awkward postures, initial encounter; Z71.1 Person with feared health complaint in whom no diagnosis is made
CPT/HCPCS: 94640; 99283; J7613

== ENCOUNTER 2018-10-13 16:51 | Emergency (ER) | payer MEDICAID, SELFPAY ==
[2018-10-13 16:54] VITALS: BP 145/81; PULSE 90; RESP 20; TEMP 36.8; O2SAT 98
[2018-10-13 16:57] VITALS: RESP 20
--- NOTE | 2018-10-13 16:58 | NUR.NOTE ---
Nursing Note: Offered patient assistance. Assessed if he felt safe at home as his parents are currently out of town for the weekend and patient expresses some anxiety. Patient states he feels safe at home and doesn't require assistance at home.
--- NOTE | 2018-10-13 17:11 | W.ED.GENAD ---
Discharge Plan Disposition Patient Disposition: HOME Condition: Stable Discharge Details Chief Complaint: GenMedical Clinical Impression: Anxiety Primary Care Provider: Deborah Chow ED Provider: Angelica Majano Home Meds and New Rx's Prescriptions: Continued quetiapine [Seroquel] 50 mg tablet 50 mg PO QHS Qty: 90 RF: 0 Spiriva with HandiHaler 18 mcg capsule, w/inhalation device 1 cap Inhalation DAILY Qty: 90 RF: 0 hydroxyzine HCl 25 mg tablet 25 mg PO TID PRNRF: 0 albuterol sulfate [ProAir HFA] 90 mcg/actuation HFA aerosol inhaler 2 puff Inhalation Q4H PRN PRN (Reason: Shortness Of Breath) Qty: 1 RF: 1 multivitamin tablet 1 tab PO QAM Qty: 90 RF: 3 thiamine HCl (vitamin B1) 100 mg tablet 100 mg PO DAILY Qty: 90 RF: 3 fluoxetine 20 mg tablet 20 mg PO DAILY Qty: 90 RF: 3 OptiChamber Advantage 1 EACH spacer 1 ea Miscellaneous DIRECTED RF: 0 albuterol sulfate 2.5 MG/3 ML solution for nebulization 2.5 mg Inhalation Q4H PRN PRN (Reason: Shortness Of Breath) 30 Days RF: 0 guaifenesin [Mucus Relief] 400 mg Tablet 400 mg PO Q4H PRNRF: 0 pantoprazole 40 mg tablet,delayed release (DR/EC) 40 mg PO DAILY Qty: 90 RF: 3 Symbicort 10.2 GM HFA aerosol inhaler 10.2 gm Inhalation BID Qty: 3 RF: 3 No Action calcium carbonate [Tums] 300 mg (750 mg) tablet,chewable 300 mg PO BID PRN (Reason: dyspepsia) Qty: 20 RF: 0 Discharge Instructions Instructions: Anxiety (ED), Anxiolysis in Adults (ED) Additional Instructions: Encourage hydration. Continue with medications as previously prescribed. Try slow breathing techniques if you begin feeling anxious again. Please follow-up with your primary care within the next week for reevaluation. merchandising coordinator will be in touch to ensure follow up plan. Referrals: Deborah Chow MD [Primary Care Provider] - Discharge Data Discharge Date/Time-TO BE ENTERED AT DEPARTURE: 10/13/18 17:41 Medical Decision Making Patient is 63-year-old male presenting today with vague complaints of feeling unwell. Patient has been seen here multiple times in the past few weeks. Sounds very anxious patient agrees with. He does feel that his anxiety increases the symptoms that typically prompted him to be evaluated in the emergency department. Recent work-ups have been negative. He does express his wish to have home health care once again the feels that this helps with his anxiety was able to keep him out of the emergency department more frequently. He does not typically see services. I did offer to set this up with him and have him to be in contact with him tomorrow with the patient declines tomorrow he has plans for Mother's Day and is unable to participate in any meetings. He denies any suicidal ideation or thoughts of self-harm. This point, patient is fairly asymptomatic aside from his anxiety. No chest pain or shortness of breath. His exam is reassuring without any acute abnormalities. I have asked her animal care taker to be in touch with the patient to arrange for prompt follow-up and to discuss outpatient care that may help with the patient's anxiety and recurrent symptoms. He was given strict return precautions. All questions and concerns were addressed and he is in agreement this plan. HPI General Mode of arrival: ambulatory. Date/Time Provider Initiated Documentation: 10/13/18 17:05. Limitations to Documentation: no limitations. Information obtained by: patient and RN notes reviewed. HPI Narrative: Patient is a 63 year old male, well known to the department, presenting today with feeling chronically not well. States that symptoms have been intermittent over the past month. Admits to being very anxious recently particulates his mother has upcoming surgery. He reports that he lives with his parents and that her being ill always heavily upon him. Also of note, his parents are not at home currently which also increases his anxiety. Patient reports that he has had home health previously but does not have them at this time. Typically, this also helps greatly with his anxiety. He is denying any chest pain or shortness of breath at this time. Has been here multiple times in the past few weeks with symptoms ranging from shortness of breath, chest pain and epigastric discomfort. I did review these notes. He reports that the symptoms can come and go but that he is not actively having any of the symptoms. At this time, he is feeling shaky and anxious. He does report that just prior to arrival he used his albuterol inhaler x2 and does admit that he can get this shaky sensation associated with its usage. Related Data Home Medications Medication Instructions Recorded Confirmed OptiChamber Advantage kit 10/15/17 10/13/18 albuterol sulfate 2.5 mg INHALATION Q4H PRN PRN 30 10/15/17 10/14/18 Days ml albuterol sulfate HFA 90 2 puff INHALATION Q4H PRN PRN #1 07/02/18 10/14/18 mcg/actuation aerosol inhaler inh multivitamin tablet 1 tab PO QAM #90 tab 07/02/18 10/14/18 thiamine HCl (vitamin B1) 100 mg 100 mg PO DAILY #90 tab 07/02/18 10/14/18 tablet guaifenesin [Mucus Relief] 400 mg PO Q4H PRN 09/09/18 10/14/18 Symbicort 10.2 gm INHALATION BID #3 inhaler 09/21/18 10/14/18 pantoprazole 40 mg PO DAILY #90 tab 09/21/18 10/14/18 hydroxyzine HCl 25 mg tablet 25 mg PO TID PRN tab 09/26/18 10/14/18 quetiapine 50 mg tablet 50 mg PO QHS #90 tab 09/26/18 10/14/18 tiotropium bromide 18 mcg capsule 1 cap INHALATION DAILY #90 inh 09/26/18 10/14/18 with inhalation device fluoxetine 20 mg tablet 20 mg PO DAILY #90 tab-cap 10/02/18 10/14/18 calcium carbonate [Tums] 300 mg PO BID PRN #20 tab 10/14/18 Previous Rx's Medication Instructions [facility] 10/15/17 albuterol sulfate 2.5 mg INHALATION Q4H PRN PRN 30 10/15/17 Days ml albuterol sulfate HFA 90 2 puff INHALATION Q4H PRN PRN #1 07/02/18 mcg/actuation aerosol inhaler inh multivitamin tablet 1 tab PO QAM #90 tab 07/02/18 thiamine HCl (vitamin B1) 100 mg 100 mg PO DAILY #90 tab 07/02/18 tablet Symbicort 10.2 gm INHALATION BID #3 inhaler 09/21/18 pantoprazole 40 mg PO DAILY #90 tab 09/21/18 quetiapine 50 mg tablet 50 mg PO QHS #90 tab 09/26/18 tiotropium bromide 18 mcg capsule 1 cap INHALATION DAILY #90 inh 09/26/18 with inhalation device fluoxetine 20 mg tablet 20 mg PO DAILY #90 tab-cap 10/02/18 calcium carbonate [Tums] 300 mg PO BID PRN #20 tab 10/14/18 Allergies Allergy/AdvReac Type Severity Reaction Status Date / Time No Known Allergies Allergy Verified 10/13/18 16:56 General Stated Complaint: GenMedical FLASH: 4 Review of Systems Constitutional Reports as per HPI, Denies chills, Denies fever(s), Denies headache(s), Denies lethargy and Denies poor appetite Eyes Denies change in vision ENT Denies dizziness and Denies headache(s) Cardiovascular Reports as per HPI, Denies chest pain, Denies rapid heart rate, Denies palpitations, Denies dyspnea and Denies dyspnea on exertion Respiratory Reports as per HPI, Denies chest congestion, Denies cough, Denies pain on inspiration, Denies pain with cough, Denies dyspnea, Denies dyspnea on exertion and Denies wheezing Gastrointestinal Reports as per HPI, Denies abdominal pain, Denies diarrhea, Denies nausea and Denies vomiting Genitourinary Denies system reviewed and no additional complaints, except as docu (denies change in urinary habits) Musculoskeletal Reports as per HPI and Denies back pain Integumentary/Breasts Reports as per HPI and Denies rash Neurologic Reports as per HPI, Denies behavioral changes, Denies dizziness and Denies headache(s) Psychiatric Reports anxiety, Denies behavioral changes, Denies hopelessness, Denies hallucinations, Denies homicidal ideation and Denies suicidal ideation Endocrine Denies palpitations Allergic/Immunologic Denies wheezing [facility] Medical History COPD (chronic obstructive pulmonary disease) (Chronic) Adjustment disorder with anxiety (Chronic) Alcohol abuse (Chronic) Anxiety (Chronic) Dyspepsia (Chronic) Malignant neoplasm of right lung (Chronic) Tubular adenoma of colon (Inactive) Surgical History History of lung biopsy (Resolved) History of surgery on upper extremity (Resolved) colonoscopy (Inactive 01/19/15) Social History Smoking/Tobacco Use Status: Current every day Tobacco Type: cigarettes and smokeless tobacco Tobacco: How many years used: 30 Alcohol Intake: former Drug use: Never Substance use type: does not use Details: 16 weeks sober Adopted: No Foster care: No Household members: family Housing: house Number of Children: 0 Communication Needs: None current occupation: not working Current gender identity: male What type of physical activity do you participate in: none and other Details: started lifting weights Frequency: daily Seatbelt use: always Drive intox 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 Parents are currently out of town until next monday. Pt wakes up feeling anxious, SOB and afraid I'm gonna in my sleep. Recent lung CA dx. Exam Const General: cooperative, healthy appearing, comfortable, well developed and anxious Nutritional Appearance: average body habitus and well nourished Orientation: alert, awake and oriented x3 HENMT Head: normal to inspection Ears: hearing grossly normal bilaterally Mouth: moist mucous membranes Chest Chest: normal inspection of the chest, normal palpation of entire chest wall and no crepitus Resp Effort & Inspection: normal respiratory effort, able to speak in complete sentences and no respiratory distress Auscultation: clear to auscultation bilaterally, no rales, no rhonchi and no wheezes Cardio Rate: regular rate Rhythm: regular rhythm Heart Sounds: S1 normal and S2 normal GI Inspection: normal to inspection, no edema and non-distended Palpation: soft, no hepatosplenomegaly, not firm, no guarding, not rigid and nontender Auscultation: normal bowel sounds Back/Spine/Pelvis Back: no CVA tenderness Thoracic/Lumbar Spine: thoracic and lumbar spine normal to inspection Skin General skin exam: no rashes or lesions noted Trauma: no lacerations or abrasions Neuro General: alert, awake and oriented x3 Cognition: normal cognition Speech: speech normal Gait: normal gait Extrem General: normal to inspection, normal capillary refill, no pedal edema, no calf tenderness and normal gait Psych Appearance: grossly normal and well kempt Mental Status: mental status grossly normal Speech and Movement: speech and movement normal Course Vital Signs Temperature 36.8 C 10/13/18 16:54 Pulse 90 10/13/18 16:54 Respiratory Rate 20 10/13/18 16:54 Blood Pressure 145/81 H 10/13/18 16:54 Pulse Oximetry 98 10/13/18 16:54 Temperature 36.8 C 10/13/18 16:54 Temperature Source Temporal Artery Scan 10/13/18 16:54 Pulse 90 10/13/18 16:54 Respiratory Rate 20 10/13/18 16:57 Respiratory Effort Non-Labored 10/13/18 16:57 Respiratory Depth Normal 10/13/18 16:57 Respiratory Pattern Normal 10/13/18 16:57 Blood Pressure 145/81 H 10/13/18 16:54 Blood Pressure Position Sitting 10/13/18 16:54 Pulse Oximetry 98 10/13/18 16:54 Oxygen Delivery Method Room Air 10/13/18 16:54 Oxygen Flow Rate 0 10/13/18 16:54 Pain Level 0 10/13/18 16:54
--- NOTE | 2018-10-13 17:14 | ED.GENADUL_ITS ---
Discharge Plan Disposition Patient Disposition: HOME Condition: Stable Discharge Details Chief Complaint: GenMedical Clinical Impression: Anxiety Primary Care Provider: Deborah Chow ED Provider: Angelica Majano Home Meds and New Rx's Prescriptions: Continued quetiapine [Seroquel] 50 mg tablet 50 mg PO QHS Qty: 90 RF: 0 Spiriva with HandiHaler 18 mcg capsule, w/inhalation device 1 cap Inhalation DAILY Qty: 90 RF: 0 hydroxyzine HCl 25 mg tablet 25 mg PO TID PRNRF: 0 albuterol sulfate [ProAir HFA] 90 mcg/actuation HFA aerosol inhaler 2 puff Inhalation Q4H PRN PRN (Reason: Shortness Of Breath) Qty: 1 RF: 1 multivitamin tablet 1 tab PO QAM Qty: 90 RF: 3 thiamine HCl (vitamin B1) 100 mg tablet 100 mg PO DAILY Qty: 90 RF: 3 fluoxetine 20 mg tablet 20 mg PO DAILY Qty: 90 RF: 3 OptiChamber Advantage 1 EACH spacer 1 ea Miscellaneous DIRECTED RF: 0 albuterol sulfate 2.5 MG/3 ML solution for nebulization 2.5 mg Inhalation Q4H PRN PRN (Reason: Shortness Of Breath) 30 Days RF: 0 guaifenesin [Mucus Relief] 400 mg Tablet 400 mg PO Q4H PRNRF: 0 pantoprazole 40 mg tablet,delayed release (DR/EC) 40 mg PO DAILY Qty: 90 RF: 3 Symbicort 10.2 GM HFA aerosol inhaler 10.2 gm Inhalation BID Qty: 3 RF: 3 No Action calcium carbonate [Tums] 300 mg (750 mg) tablet,chewable 300 mg PO BID PRN (Reason: dyspepsia) Qty: 20 RF: 0 Discharge Instructions Instructions: Anxiety (ED), Anxiolysis in Adults (ED) Additional Instructions: Encourage hydration. Continue with medications as previously prescribed. Try slow breathing techniques if you begin feeling anxious again. Please follow-up with your primary care within the next week for reevaluation. pharmacy intake coordinator w naeem be in touch to ensure follow up plan. Referrals: Deborah Chow MD [Primary Care Provider] - Discharge Data Discharge Date/Time-TO BE ENTERED AT DEPARTURE: 10/13/18 17:41 Medical Decision Making Patient is 63-year-old male presenting today with vague complaints of feeling unwell. Patient has been seen here multiple times in the past few weeks. Sounds very anxious patient agrees with. He does feel that his anxiety increases the symptoms that typically prompted him to be evaluated in the emergency department. Recent work-ups have been negative. He does express his wish to have home health care once again the feels that this helps with his anxiety was able to keep him out of the emergency department more frequently. He does not typically see services. I did offer to set this up with him and have him to be in contact with him tomorrow with the patient declines tomorrow he has plans for Mother's Day and is unable to participate in any meetings. He denies any suicidal ideation or thoughts of self-harm. This point, patient is fairly asymptomatic aside from his anxiety. No chest pain or shortness of breath. His exam is reassuring without any acute abnormalities. I have asked her personal care assistant to be in touch with the patient to arrange for prompt follow-up and to discuss outpatient care that may help with the patient's anxiety and recurrent symptoms. He was given strict return precautions. All questions and concerns were addressed and he is in agreement this plan. HPI General Mode of arrival: ambulatory . Date/Time Provider Initiated Documentation: 10/13/18 17:05 . Limitations to Documentation: no limitations . Information obtained by: patient and RN notes reviewed . HPI Narrative: Patient is a 63 year old male, well known to the department, presenting today with feeling chronically not well. States that symptoms have been intermittent over the past month. Admits to being very anxious recently particulates his mother has upcoming surgery. He reports that he lives with his parents and that her being ill always heavily upon him. Also of note, his parents are not at home currently which also increases his anxiety. Patient reports that he has had home health previously but does not have them at this time. Typically, this also helps greatly with his anxiety. He is denying any chest pain or shortness of breath at this time. Has been here multiple times in the past few weeks with symptoms ranging from shortness of breath, chest pain and epigastric discomfort. I did review these notes. He reports that the symptoms can come and go but that he is not actively having any of the symptoms. At this time, he is feeling shaky and anxious. He does report that just prior to arrival he used his albuterol inhaler x2 and does admit that he can get this shaky sensation associated with its usage. Related Data Home Medications Medication Instructions Recorded Confirmed OptiChamber Advantage kit 10/15/17 10/13/18 albuterol sulfate 2.5 mg INHALATION Q4H PRN PRN 30 10/15/17 10/14/18 Days ml albuterol sulfate HFA 90 2 puff INHALATION Q4H PRN PRN #1 07/02/18 10/14/18 mcg/actuation aerosol inhaler inh multivitamin tablet 1 tab PO QAM #90 tab 07/02/18 10/14/18 thiamine HCl (vitamin B1) 100 mg 100 mg PO DAILY #90 tab 07/02/18 10/14/18 tablet guaifenesin [Mucus Relief] 400 mg PO Q4H PRN 09/09/18 10/14/18 Symbicort 10.2 gm INHALATION BID #3 inhaler 09/21/18 10/14/18 pantoprazole 40 mg PO DAILY #90 tab 09/21/18 10/14/18 hydroxyzine HCl 25 mg tablet 25 mg PO TID PRN tab 09/26/18 10/14/18 quetiapine 50 mg tablet 50 mg PO QHS #90 tab 09/26/18 10/14/18 tiotropium bromide 18 mcg capsule 1 cap INHALATION DAILY #90 inh 09/26/18 10/14/18 with inhalation device fluoxetine 20 mg tablet 20 mg PO DAILY #90 tab-cap 10/02/18 10/14/18 calcium carbonate [Tums] 300 mg PO BID PRN #20 tab 10/14/18 Previous Rx's Medication Instructions [facility] 10/15/17 albuterol sulfate 2.5 mg INHALATION Q4H PRN PRN 30 10/15/17 Days ml albuterol sulfate HFA 90 2 puff INHALATION Q4H PRN PRN #1 07/02/18 mcg/actuation aerosol inhaler inh multivitamin tablet 1 tab PO QAM #90 tab 07/02/18 thiamine HCl (vitamin B1) 100 mg 100 mg PO DAILY #90 tab 07/02/18 tablet Symbicort 10.2 gm INHALATION BID #3 inhaler 09/21/18 pantoprazole 40 mg PO DAILY #90 tab 09/21/18 quetiapine 50 mg tablet 50 mg PO QHS #90 tab 09/26/18 tiotropium bromide 18 mcg capsule 1 cap INHALATION DAILY #90 inh 09/26/18 with inhalation device fluoxetine 20 mg tablet 20 mg PO DAILY #90 tab-cap 10/02/18 calcium carbonate [Tums] 300 mg PO BID PRN #20 tab 10/14/18 Allergies Allergy/AdvReac Type Severity Reaction Status Date / Time No Known Allergies Allergy Verified 10/13/18 16:56 General Stated Complaint: GenMedical FLASH: 4 Review of Systems Constitutional Reports as per HPI, Denies chills, Denies fever(s), Denies headache(s), Denies lethargy and Denies poor appetite Eyes Denies change in vision ENT Denies dizziness and Denies headache(s) Cardiovascular Reports as per HPI, Denies chest pain, Denies rapid heart rate, Denies palpitations, Denies dyspnea and Denies dyspnea on exertion Respiratory Reports as per HPI, Denies chest congestion, Denies cough, Denies pain on inspiration, Denies pain with cough, Denies dyspnea, Denies dyspnea on exertion and Denies wheezing Gastrointestinal Reports as per HPI, Denies abdominal pain, Denies diarrhea, Denies nausea and Denies vomiting Genitourinary Denies system reviewed and no additional complaints, except as docu (denies change in urinary habits) Musculoskeletal Reports as per HPI and Denies back pain Integumentary/Breasts Reports as per HPI and Denies rash Neurologic Reports as per HPI, Denies behavioral changes, Denies dizziness and Denies headache(s) Psychiatric Reports anxiety, Denies behavioral changes, Denies hopelessness, Denies hallucinations, Denies homicidal ideation and Denies suicidal ideation Endocrine Denies palpitations Allergic/Immunologic Denies wheezing [facility] Medical History COPD (chronic obstructive pulmonary disease) (Chronic) Adjustment disorder with anxiety (Chronic) Alcohol abuse (Chronic) Anxiety (Chronic) Dyspepsia (Chronic) Malignant neoplasm of right lung (Chronic) Tubular adenoma of colon (Inactive) Surgical History History of lung biopsy (Resolved) History of surgery on upper extremity (Resolved) colonoscopy (Inactive 01/19/15) Social History Smoking/Tobacco Use Status: Current every day Tobacco Type: cigarettes and smokeless tobacco Tobacco: How many years used: 30 Alcohol Intake: former Drug use: Never Substance use type: does not use Details: 16 weeks sober Adopted: No Foster care: No Household members: family Housing: house Number of Children: 0 Communication Needs: None current occupation: not working Current gender identity: male What type of physical activity do you participate in: none and other Details: started lifting weights Frequency: daily Seatbelt use: always Drive intox or ride w/intox cpr ambulance 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 Parents are currently out of town until next monday. Pt wakes up feeling anxious, SOB and afraid I'm gonna in my sleep. Recent lung CA dx. Exam Const General: cooperative, healthy appearing, comfortable, well developed and anxious Nutritional Appearance: average body habitus and well nourished Orientation: alert, awake and oriented x3 HENMT Head: normal to inspection Ears: hearing grossly normal bilaterally Mouth: moist mucous membranes Chest Chest: normal inspection of the chest, normal palpation of entire chest wall and no crepitus Resp Effort & Inspection: normal respiratory effort, able to speak in complete sentences and no respiratory distress Auscultation: clear to auscultation bilaterally, no rales, no rhonchi and no wheezes Cardio Rate: regular rate Rhythm: regular rhythm Heart Sounds: S1 normal and S2 normal GI Inspection: normal to inspection, no edema and non-distended Palpation: soft, no hepatosplenomegaly, not firm, no guarding, not rigid and nontender Auscultation: normal bowel sounds Back/Spine/Pelvis Back: no CVA tenderness Thoracic/Lumbar Spine: thoracic and lumbar spine normal to inspection Skin General skin exam: no rashes or lesions noted Trauma: no lacerations or abrasions Neuro General: alert, awake and oriented x3 Cognition: normal cognition Speech: speech normal Gait: normal gait Extrem General: normal to inspection, normal capillary refill, no pedal edema, no calf tenderness and normal gait Psych Appearance: grossly normal and well kempt Mental Status: mental status grossly normal Speech and Movement: speech and movement normal Course Vital Signs Temperature 36.8 C 10/13/18 16:54 Pulse 90 10/13/18 16:54 Respiratory Rate 20 10/13/18 16:54 Blood Pressure 145/81 H 10/13/18 16:54 Pulse Oximetry 98 10/13/18 16:54 Temperature 36.8 C 10/13/18 16:54 Temperature Source Temporal Artery Scan 10/13/18 16:54 Pulse 90 10/13/18 16:54 Respiratory Rate 20 10/13/18 16:57 Respiratory Effort Non-Labored 10/13/18 16:57 Respiratory Depth Normal 10/13/18 16:57 Respiratory Pattern Normal 10/13/18 16:57 Blood Pressure 145/81 H 10/13/18 16:54 Blood Pressure Position Sitting 10/13/18 16:54 Pulse Oximetry 98 10/13/18 16:54 Oxygen Delivery Method Room Air 10/13/18 16:54 Oxygen Flow Rate 0 10/13/18 16:54 Pain Level 0 10/13/18 16:54
[2018-10-13 17:42] VITALS: BP 145/81; PULSE 90; RESP 20; TEMP 36.8; O2SAT 98
== END 2018-10-13 17:41 | disposition home or self-care (01) ==
LOC: ER 17:46
PROVIDERS: Emergency Provider Physician Assistant; PCP Internal Medicine
DX: F41.9 Anxiety disorder, unspecified (principal)
CPT/HCPCS: 99283

== ENCOUNTER 2018-10-14 19:42 | Emergency (ER) | payer MEDICAID, SELFPAY ==
--- NOTE | 2018-10-14 20:00 | ED.GENADUL_ITS ---
Discharge Plan Disposition Patient Disposition: HOME Condition: Improving Discharge Details Chief Complaint: Chest Pain Clinical Impression: Dyspepsia Primary Care Provider: Deborah Chow ED Provider: Ean Lyons Home Meds and New Rx's Prescriptions: New calcium carbonate [Tums] 300 mg (750 mg) tablet,chewable 300 mg PO BID PRN (Reason: dyspepsia) Qty: 20 RF: 0 Continued quetiapine [Seroquel] 50 mg tablet 50 mg PO QHS Qty: 90 RF: 0 Spiriva with HandiHaler 18 mcg capsule, w/inhalation device 1 cap Inhalation DAILY Qty: 90 RF: 0 hydroxyzine HCl 25 mg tablet 25 mg PO TID PRNRF: 0 albuterol sulfate [ProAir HFA] 90 mcg/actuation HFA aerosol inhaler 2 puff Inhalation Q4H PRN PRN (Reason: Shortness Of Breath) Qty: 1 RF: 1 multivitamin tablet 1 tab PO QAM Qty: 90 RF: 3 thiamine HCl (vitamin B1) 100 mg tablet 100 mg PO DAILY Qty: 90 RF: 3 fluoxetine 20 mg tablet 20 mg PO DAILY Qty: 90 RF: 3 OptiChamber Advantage 1 EACH spacer 1 ea Miscellaneous DIRECTED RF: 0 albuterol sulfate 2.5 MG/3 ML solution for nebulization 2.5 mg Inhalation Q4H PRN PRN (Reason: Shortness Of Breath) 30 Days RF: 0 guaifenesin [Mucus Relief] 400 mg Tablet 400 mg PO Q4H PRNRF: 0 pantoprazole 40 mg tablet,delayed release (DR/EC) 40 mg PO DAILY Qty: 90 RF: 3 Symbicort 10.2 GM HFA aerosol inhaler 10.2 gm Inhalation BID Qty: 3 RF: 3 Discharge Instructions Additional Instructions: Home to rest this evening. Please follow up with Dr. Chow for recheck if not improving in 5 days time. May use the prescribed Tums as needed for nausea or heartburn. Continue your regular medications. Return for any acute concern Medical Decision Making 63-year-old male known to me from frequent ER visits. He is a smoker with a malignant neoplasm of the right lung and with a history of anxiety for which he takes hydralazine at night. He arrives complaining of the fairly abrupt onset of epigastric discomfort with pressure associated with increased anxiety at home. He felt nauseated without emesis. Denies chest pain or palpitations. No recent increase in shortness of breath or change to chronic cough. No lower extremity pain or swelling. He arrives with normal vital signs and unremarkable EKG. Differential diagnosis includes anxiety, gastritis, ACS, bronchospasm, pneumonia or increased size of lung neoplasm. Patient had IV access established, given 0.5 mg of Ativan as an anxiolytic, fluid bolus, DuoNeb updraft and referred for x-ray. Diagnostics are reassuring with unremarkable labs. CXR unchanged with known right upper mass The patient is improved after GI cocktail. We will provide him with a single additional dose for home. Discussed with him that he may use Tums as needed if needed for recurrent symptoms. He stable for discharge to home in improved condition Lab Data Lab results reviewed: Yes I reviewed the patient's lab results. Laboratory Results - last 24 hr 10/14/18 10/14/18 10/14/18 20:25 20:25 20:25 WBC 3.74 L RBC 4.26 L Hgb 12.6 L Hct 38.0 L MCV 89.2 MCH 29.6 MCHC 33.2 RDW 12.5 Plt Count 198 MPV 10.2 Immature Gran % 0.3 Neutrophils % 57.8 Lymphocytes % 27.8 Monocytes % 11.5 Eosinophils % 2.1 Basophils % 0.5 Absolute Neutrophils 2.16 Absolute Lymphocytes 1.04 L Absolute Monocytes 0.43 Absolute Eosinophils 0.08 Absolute Basophils 0.02 Sodium 141 Potassium 3.4 L Chloride 104 Carbon Dioxide 27.7 Anion Gap 9.3 BUN 8 Creatinine 1.02 Estimated GFR/1.73 m2 >= 60.00 Glucose 105 H Calcium 8.0 L Magnesium 2.2 Total Bilirubin 0.2 AST 15 ALT 19 Alkaline Phosphatase 70 Troponin I < 0.02 Total Protein 6.2 L Albumin 2.8 L Lipase 351 ECG Data Attestation: I personally reviewed and interpreted this ECG (s) as follows: Interpretation: Normal sinus rhythm with a rate in the 70s, the QRS is narrow, there is no ST segment elevation HPI General Mode of arrival: ambulatory . Date/Time Provider Initiated Documentation: 10/14/18 19:50 . Limitations to Documentation: no limitations . Information obtained by: patient . History of Present Illness 63 year old M presents to the emergency department with the chief complaint of Abdominal pain and anxiety, described as moderate, Quality is described as dull and constant, and is localized to the abdomen. Patient reports no radiation. Patient started experiencing this hour(s) and it has been constant. No relieving factors improve symptom(s), No exacerbating factors reported . Patient notes nausea/vomiting. Patient did receive the following treatments prior to arrival, none Related Data Home Medications Medication Instructions Recorded Confirmed OptiChamber Advantage kit 10/15/17 10/13/18 albuterol sulfate 2.5 mg INHALATION Q4H PRN PRN 30 10/15/17 10/14/18 Days ml albuterol sulfate HFA 90 2 puff INHALATION Q4H PRN PRN #1 07/02/18 10/14/18 mcg/actuation aerosol inhaler inh multivitamin tablet 1 tab PO QAM #90 tab 07/02/18 10/14/18 thiamine HCl (vitamin B1) 100 mg 100 mg PO DAILY #90 tab 07/02/18 10/14/18 tablet guaifenesin [Mucus Relief] 400 mg PO Q4H PRN 09/09/18 10/14/18 Symbicort 10.2 gm INHALATION BID #3 inhaler 09/21/18 10/14/18 pantoprazole 40 mg PO DAILY #90 tab 09/21/18 10/14/18 hydroxyzine HCl 25 mg tablet 25 mg PO TID PRN tab 09/26/18 10/14/18 quetiapine 50 mg tablet 50 mg PO QHS #90 tab 09/26/18 10/14/18 tiotropium bromide 18 mcg capsule 1 cap INHALATION DAILY #90 inh 09/26/1805/23 with inhalation device fluoxetine 20 mg tablet 20 mg PO DAILY #90 tab-cap 10/02/18 10/14/18 calcium carbonate [Tums] 300 mg PO BID PRN #20 tab 10/14/18 Previous Rx's Medication Instructions Recorded OptiChamber Advantage kit 10/15/17 albuterol sulfate 2.5 mg INHALATION Q4H PRN PRN 30 10/15/17 Days ml albuterol sulfate HFA 90 2 puff INHALATION Q4H PRN PRN #1 07/02/18 mcg/actuation aerosol inhaler inh multivitamin tablet 1 tab PO QAM #90 tab 07/02/18 thiamine HCl (vitamin B1) 100 mg 100 mg PO DAILY #90 tab 07/02/18 tablet Symbicort 10.2 gm INHALATION BID #3 inhaler 09/21/18 pantoprazole 40 mg PO DAILY #90 tab 09/21/18 quetiapine 50 mg tablet 50 mg PO QHS #90 tab 09/26/18 tiotropium bromide 18 mcg capsule 1 cap INHALATION DAILY #90 inh 09/26/18 with inhalation device fluoxetine 20 mg tablet 20 mg PO DAILY #90 tab-cap 10/02/18 calcium carbonate [Tums] 300 mg PO BID PRN #20 tab 10/14/18 Allergies Allergy/AdvReac Type Severity Reaction Status Date / Time No Known Allergies Allergy Verified 10/13/18 16:56 General FLASH: 4 Review of Systems Review of Systems 8 out of 10 systems reviewed [facility] Medical History COPD (chronic obstructive pulmonary disease) (Chronic) Adjustment disorder with anxiety (Chronic) Alcohol abuse (Chronic) Anxiety (Chronic) Dyspepsia (Chronic) Malignant neoplasm of right lung (Chronic) Tubular adenoma of colon (Inactive) Surgical History History of lung biopsy (Resolved) History of surgery on upper extremity (Resolved) colonoscopy (Inactive 01/19/15) Family History Father Essential hypertension Hyperlipidemia Paternal Uncle Heart disease Stroke Cerebral hemorrhage Hypertension Brother Cancer Social History Smoking/Tobacco Use Status: Current every day Tobacco Type: cigarettes and smokeless tobacco Tobacco: How many years used: 30 Alcohol Intake: former Drug use: Never Substance use type: does not use Details: 16 weeks sober Adopted: No Foster care: No Household members: family Housing: house Number of Children: 0 Communication Needs: None current occupation: not working Current gender identity: male What type of physical activity do you participate in: none and other Details: started lifting weights Frequency: daily Seatbelt use: always Drive intox or ride w/intox rolloff 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 Parents are currently out of town until next monday. Pt wakes up feeling anxious, SOB and afraid I'm gonna in my sleep. Recent lung CA dx. Exam Narrative Exam Narrative: GEN: awake, alert, oriented 3. Pleasant, well groomed, interactive. HEAD: Normocephalic, atraumatic ENT: Mucous membranes moist, oropharynx unremarkable but edentulous with dry mucous membranes, External ear exam unremarkable EYES: PERRL, EOMI NECK: Full ROM, no URSZULA, no menigismus CHEST/RESP: Nontender, clear to auscultation bilateral, no wheeze/rhonchi/rales CARDIOVASCULAR: RRR, no murmur, rub jeannie. 2+ Rad pulse bilateral ABDOMEN: Soft, nontender, no mass. +Bowel sounds EXT: Full ROM, no edema, no rash Neuro: Grossly normal neurologic exam, conversant, interactive. Psych: Speech fluent, thoughts congruent, affect anxious
[2018-10-14 20:10] VITALS: PULSE 70; RESP 22; O2SAT 98
[2018-10-14] MEDS: LORazepam 2 MG/ML VIAL 0.5 MG IVP (20:10)
[2018-10-14] MEDS: Albuterol/Ipratropium 3 ML UPD VIAL UPD (20:10)
[2018-10-14] MEDS: Lactated Ringers 1,000 ML 1000 ML IV (20:11)
[2018-10-14 20:14] VITALS: BP 147/96; PULSE 70; RESP 22; TEMP 37; O2SAT 98
[2018-10-14 20:17] VITALS: RESP 22
[2018-10-14 20:23] VITALS: PULSE 83; RESP 1; RESP 17; O2SAT 100
[2018-10-14 20:54] LABS: Abs Immature Grans 0.01 k/cumm (0.0-0.09); Absolute Basophil Count 0.02 k/cumm (0.0-0.2); Absolute Eosinophil Count 0.08 k/cumm (0.0-0.7); Absolute Lymphocyte Count 1.04 k/cumm (1.2-3.4); Absolute Monocyte Count 0.43 k/cumm (0.11-0.7); Absolute Neutrophil Count 2.16 k/cumm (1.2-6.7); Basophils % 0.5; Eosinophils % 2.1; HGB 12.6 g/dL (13.5-17.5); Immature Grans % 0.3; Lipase 351 U/L (73-393); Lymphocytes % 27.8; Magnesium 2.2 mg/dL (1.8-2.4); Mean Corp. HGB Concentration 33.2 g/dL (32.0-36.0); Mean Corpuscular Hemoglobin 29.6 pg (27.0-33.0); Mean Corpuscular Volume 89.2 fL (80-95); Mean Platelet Volume 10.2 fL (8.0-11.0); Monocytes % 11.5; Neutrophils % 57.8; Platelet Count 198 x1000/uL (130-400); RBC 4.26 m/cumm (4.50-6.00); RBC Distribution Width 12.5 % (11.8-14.1); White Blood Cell Count 3.74 k/cumm (4.4-10.8)
[2018-10-14 21:01] LABS: ALT 19 U/L (12-78); AST 15 U/L (15-37); Albumin 2.8 g/dL (3.4-5.0); Alkaline Phosphatase 70 U/L (46-116); Anion Gap 9.3 mmol/L (3-11); BUN 8 mg/dL (7-18); Bilirubin, Total 0.2 mg/dL (0.2-1.0); CO2 27.7 mmol/L (21.0-32.0); CREATININE 1.02 mg/dL (0.70-1.30); Chloride 104 mmol/L (98-107); Glucose 105 mg/dL (70-100); Potassium 3.4 mmol/L (3.5-5.1); Sodium 141 mmol/L (136-145); Total Protein 6.2 g/dL (6.4-8.2)
[2018-10-14 21:02] LABS: Troponin I < 0.02 ng/mL (0.00-0.06)
--- NOTE | 2018-10-14 21:15 | DI.RAD_ITS ---
SYMPTOMS/DIAGNOSIS: COUGH, KNOWN MASS PA AND LATERAL CHEST: Comparison is made with [id number]. The patient has a history of right upper lobe carcinoma. There has been no change in the size or appearance of the right upper lobe opacity. No new abnormalities are identified. IMPRESSION: Stable right upper lobe opacity. No acute abnormality.
--- NOTE | 2018-10-14 21:19 | DI.VRAD_ITS ---
EXAM: XR Chest, 2 Views EXAM DATE/TIME: 10/14/2018 7:58 PM CLINICAL HISTORY: 63 years old, male; Signs and symptoms; Patient HX: Cough, known mass TECHNIQUE: Imaging protocol: XR of the chest, 2 views. COMPARISON: CR XR CHEST 2V PA LATERAL 09/09/2018 7:13 PM FINDINGS: Lungs: 6.1 x 2.5 cm ovoid density in the right upper lobe is similar to previous exams, consistent with the patient's known pulmonary mass, demonstrating no significant radiographic change since 09/09/2018. No superimposed acute infiltrates. Pleural space: No pleural effusion. No pneumothorax. Heart/Mediastinum: Heart size normal. Mild aortic tortuosity. Pulmonary vaculature normal. No tracheal shift. Bones/joints: No acute osseous abnormalities are identified. IMPRESSION: 1. No significant radiographic change. 2. Ovoid pulmonary density in the right upper lobe consistent with the patient's known mass lesion, and a straight no significant radiographic change since 09/09/2018. 3. No evidence of superimposed acute infiltrate. Dictated and Authenticated by: Brando Wu MD. Ordering:ADELE Mckoy MD
[2018-10-14] MEDS: Mylanta Suspension 30 ML CUP (21:40)
== END 2018-10-14 21:51 | disposition home or self-care (01) ==
PROVIDERS: Emergency Provider Emergency Medicine; PCP Internal Medicine
DX: R10.13 Epigastric pain (principal); F41.9 Anxiety disorder, unspecified; F17.210 Nicotine dependence, cigarettes, uncomplicated; C34.91 Malignant neoplasm of unspecified part of right bronchus or lung
CPT/HCPCS: 36415; 80053; 83690; 93005; 94640; 96361; 96374; 99285; 71046; 83735; 84484; 85025; 93010; J2060; J7620

== ENCOUNTER 2018-10-15 18:10 | Emergency (ER) | payer MEDICAID, SELFPAY ==
[2018-10-15 18:27] VITALS: BP 151/75; PULSE 85; RESP 16; TEMP 37.1; O2SAT 96
[2018-10-15 18:43] VITALS: RESP 16
--- NOTE | 2018-10-15 18:43 | W.ED.GENAD ---
Discharge Plan Disposition Patient Disposition: HOME Condition: Stable Discharge Details Chief Complaint: SOB Clinical Impression: Epigastric pain, Chest pain, Breath, shortness Primary Care Provider: Deborah Chow ED Provider: Angelica Majano Home Meds and New Rx's Prescriptions: Continued quetiapine [Seroquel] 50 mg tablet 50 mg PO QHS Qty: 90 RF: 0 Spiriva with HandiHaler 18 mcg capsule, w/inhalation device 1 cap Inhalation DAILY Qty: 90 RF: 0 hydroxyzine HCl 25 mg tablet 25 mg PO TID PRNRF: 0 albuterol sulfate [ProAir HFA] 90 mcg/actuation HFA aerosol inhaler 2 puff Inhalation Q4H PRN PRN (Reason: Shortness Of Breath) Qty: 1 RF: 1 multivitamin tablet 1 tab PO QAM Qty: 90 RF: 3 thiamine HCl (vitamin B1) 100 mg tablet 100 mg PO DAILY Qty: 90 RF: 3 fluoxetine 20 mg tablet 20 mg PO DAILY Qty: 90 RF: 3 OptiChamber Advantage 1 EACH spacer 1 ea Miscellaneous DIRECTED RF: 0 albuterol sulfate 2.5 MG/3 ML solution for nebulization 2.5 mg Inhalation Q4H PRN PRN (Reason: Shortness Of Breath) 30 Days RF: 0 guaifenesin [Mucus Relief] 400 mg Tablet 400 mg PO Q4H PRNRF: 0 pantoprazole 40 mg tablet,delayed release (DR/EC) 40 mg PO DAILY Qty: 90 RF: 3 Symbicort 10.2 GM HFA aerosol inhaler 10.2 gm Inhalation BID Qty: 3 RF: 3 calcium carbonate [Tums] 300 mg (750 mg) tablet,chewable 300 mg PO BID PRN (Reason: dyspepsia) Qty: 20 RF: 0 No Action clonazepam 0.5 mg tablet 0.5 mg PO BID Qty: 2 RF: 0 quetiapine [Seroquel] 25 mg tablet 25 mg PO BID Qty: 20 RF: 0 Discharge Instructions Instructions: Chest Pain (ED) Additional Instructions: Your EKG is reassuring today. As this is been going on for 8 weeks and is largely unchanged, you have had multiple work-ups in the emergency department for this, there is no emergent need to have further done. You need to keep your appointment with your primary care in 2 days. If you develop difficulty breathing, increased pain or other new/worsening symptoms please seek care urgently once again. Referrals: Deborah Cohw MD [Primary Care Provider] - Discharge Data Discharge Date/Time-TO BE ENTERED AT DEPARTURE: 10/15/18 19:00 Medical Decision Making Patient is 63-year-old male, well-known to myself in the department, presenting today for evaluation of chronic epigastric and chest pain. He reports that this chest discomfort as well as shortness of breath have been ongoing for the past 8 weeks. No acute change in this today. Patient has been here over 14 times in the past month for same complaint. He has been quite anxious and reports that this is a driving component of his symptoms which is something we have discussed at length when I saw him a few days ago. He has an appointment with his primary care on Monday. Again, the patient is requesting home health, a request that this has been placed with home health caregiver. I asked advised to discuss this further with his primary care as well. Patient appears nontoxic, appears to be at his baseline. He is breathing comfortably, speaking in complete sentences. Lungs are clear. NSR, no cardiac abnormality noted. I did review the chest x-ray, EKG and labs are completed yesterday. Repeat EKG was obtained today with no acute findings noted. EKG was reviewed by Dr. Lizarraga today, NSR, no acute abnormality noted. I discussed with the patient that as the symptoms have been consistent over the past several months patient has had multiple work-ups without any acute eyes, I do not see need to repeat this today. Patient has upcoming appointment with his primary care. I again encouraged anxiolytic techniques. All of his questions and concerns were addressed and he is in agreement with this plan. Patient seems much calmer after being evaluated. He has been here very frequently, would benefit from home services. HPI General Mode of arrival: ambulatory. Date/Time Provider Initiated Documentation: 10/15/18 18:42. Limitations to Documentation: no limitations. Information obtained by: patient and RN notes reviewed. History of Present Illness 63 year old M presents to the emergency department with the chief complaint of shortness of breath, described as moderate, Quality is described as aching, and is localized to the chest. Patient reports no radiation. Patient started experiencing this month(s) (3) and it has been constant. No relieving factors improve symptom(s), Other factors that worsen symptoms (stress) . Patient notes chest pain and shortness of breath; denies cough, diaphoresis, fever/chills, headaches, loss of appetite, malaise, nausea/vomiting, rash, syncope and weakness. Patient did receive the following treatments prior to arrival, none Related Data Home Medications Medication Instructions [facility]ed [facility]17 10/17/18 albuterol sulfate 2.5 mg INHALATION Q4H PRN PRN 30 10/15/17 10/17/18 Days ml albuterol sulfate HFA 90 2 puff INHALATION Q4H PRN PRN #1 07/02/18 10/17/18 mcg/actuation aerosol inhaler inh multivitamin tablet 1 tab PO QAM #90 tab 07/02/18 10/17/18 thiamine HCl (vitamin B1) 100 mg 100 mg PO DAILY #90 tab 07/02/18 10/17/18 tablet guaifenesin [Mucus Relief] 400 mg PO Q4H PRN 09/09/18 10/17/18 Symbicort 10.2 gm INHALATION BID #3 inhaler 09/21/18 10/17/18 pantoprazole 40 mg PO DAILY #90 tab 09/21/18 10/17/18 hydroxyzine HCl 25 mg tablet 25 mg PO TID PRN tab 09/26/18 10/17/18 quetiapine 50 mg tablet 50 mg PO QHS #90 tab 09/26/18 10/17/18 tiotropium bromide 18 mcg capsule 1 cap INHALATION DAILY #90 inh 09/26/18 10/17/18 with inhalation device fluoxetine 20 mg tablet 20 mg PO DAILY #90 tab-cap 10/02/18 10/17/18 calcium carbonate [Tums] 300 mg PO BID PRN #20 tab 10/14/18 10/17/18 clonazepam 0.5 mg tablet 0.5 mg PO BID #2 tab 10/16/18 10/17/18 quetiapine 25 mg tablet 25 mg PO BID #20 tab 10/17/18 10/17/18 Previous Rx's Medication Instructions Recorded [facility] Advantage kit 10/15/17 albuterol sulfate 2.5 mg INHALATION Q4H PRN PRN 30 10/15/17 Days ml albuterol sulfate HFA 90 2 puff INHALATION Q4H PRN PRN #1 07/02/18 mcg/actuation aerosol inhaler inh multivitamin tablet 1 tab PO QAM #90 tab 07/02/18 thiamine HCl (vitamin B1) 100 mg 100 mg PO DAILY #90 tab 07/02/18 tablet Symbicort 10.2 gm INHALATION BID #3 inhaler 09/21/18 pantoprazole 40 mg PO DAILY #90 tab 09/21/18 quetiapine 50 mg tablet 50 mg PO QHS #90 tab 09/26/18 tiotropium bromide 18 mcg capsule 1 cap INHALATION DAILY #90 inh 09/26/18 with inhalation device fluoxetine 20 mg tablet 20 mg PO DAILY #90 tab-cap 10/02/18 calcium carbonate [Tums] 300 mg PO BID PRN #20 tab 10/14/18 clonazepam 0.5 mg tablet 0.5 mg PO BID #2 tab 10/16/18 quetiapine 25 mg tablet 25 mg PO BID #20 tab 10/17/18 Allergies Allergy/AdvReac Type Severity Reaction Status Date / Time No Known Allergies Allergy Verified 10/17/18 14:40 General Stated Complaint: SOB FLASH: 3 Review of Systems Constitutional Reports as per HPI, Denies chills, Denies fever(s), Denies headache(s), Denies lethargy and Denies poor appetite Eyes Denies change in vision ENT Denies dizziness and Denies headache(s) Cardiovascular Reports as per HPI, Reports chest pain, Reports chest pain at rest, Reports chest pain with activity (constant, unchaged with activity), Denies diaphoresis, Denies syncope, Denies rapid heart rate, Denies pedal edema, Denies irregular heart rhythm, Denies leg edema, Denies lightheadedness, Denies radiating jaw, neck or arm pain, Reports dyspnea (constant, unchanged with exertion) and Denies dyspnea on exertion Respiratory Reports as per HPI, Denies chest congestion, Denies cough, Denies pain on inspiration, Denies pain with cough, Reports dyspnea (constant, unchanged with exertion), Denies dyspnea on exertion and Denies wheezing Gastrointestinal Reports as per HPI, Denies abdominal pain, Denies diarrhea, Denies nausea and Denies vomiting Genitourinary Denies system reviewed and no additional complaints, except as docu (denies change in urinary habits) Musculoskeletal Reports as per HPI and Denies back pain Integumentary/Breasts Reports as per HPI and Denies rash Neurologic Reports as per HPI, Denies dizziness, Denies syncope and Denies headache(s) Allergic/Immunologic Denies wheezing [facility] Medical History COPD (chronic obstructive pulmonary disease) (Chronic) Adjustment disorder with anxiety (Chronic) Alcohol abuse (Chronic) Anxiety (Chronic) Dyspepsia (Chronic) Malignant neoplasm of right lung (Chronic) Tubular adenoma of colon (Inactive) Surgical History History of lung biopsy (Resolved) History of surgery on upper extremity (Resolved) colonoscopy (Inactive 01/19/15) Social History Smoking/Tobacco Use Status: Former Tobacco Use Tobacco: How many years used: 30 Alcohol Intake: former Drug use: Never 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 Adopted: No Foster care: No Household members: family Housing: house Number of Children: 0 Communication Needs: None current occupation: not working Current gender identity: male What type of physical activity do you participate in: none and other Details: started lifting weights Frequency: daily Seatbelt use: always Drive intox or ride w/intox [employer] 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 Exam Const General: cooperative, comfortable, no acute distress, well developed, anxious and ill appearing chronically Nutritional Appearance: well nourished Orientation: alert, awake, oriented x3 and oriented to person [facility] Head: normal to inspection Ears: hearing grossly normal bilaterally Mouth: moist mucous membranes Chest Chest: normal inspection of the chest, normal palpation of entire chest wall and no crepitus Resp Effort & Inspection: normal respiratory effort, able to speak in complete sentences and no respiratory distress Auscultation: clear to auscultation bilaterally, no rales, no rhonchi and no wheezes Cardio Rate: regular rate Rhythm: regular rhythm Heart Sounds: S1 normal and S2 normal GI Inspection: normal to inspection, no edema and non-distended Palpation: soft, no hepatosplenomegaly, not firm, no guarding, not rigid and nontender Auscultation: normal bowel sounds Back/Spine/Pelvis Back: no CVA tenderness Thoracic/Lumbar Spine: thoracic and lumbar spine normal to inspection Skin General skin exam: no rashes or lesions noted Trauma: no lacerations or abrasions Neuro General: alert, awake and oriented x3 Cognition: normal cognition Speech: speech normal Gait: normal gait Extrem General: normal to inspection, normal capillary refill, no pedal edema, no calf tenderness and normal gait Psych Appearance: grossly normal and well kempt Mental Status: mental status grossly normal Speech and Movement: speech and movement normal Course Vital Signs Temperature 37.1 C 10/15/18 18:27 Pulse 85 10/15/18 18:27 Respiratory Rate 16 10/15/18 18:27 Blood Pressure 151/75 H 10/15/18 18:27 Pulse Oximetry 96 10/15/18 18:27 Temperature 37.1 C 10/15/18 18:27 Temperature Source Skin 10/15/18 18:27 Pulse 85 10/15/18 18:27 Respiratory Rate 16 10/15/18 18:27 Respiratory Effort Non-Labored 10/15/18 18:27 Blood Pressure 151/75 H 10/15/18 18:27 Blood Pressure Position Sitting 10/15/18 18:27 Pulse Oximetry 96 10/15/18 18:27 Oxygen Delivery Method Room Air 10/15/18 18:27 Oxygen Flow Rate 0 10/15/18 18:27 Pain Level 8 10/15/18 18:27
--- NOTE | 2018-10-15 18:53 | ED.GENADUL_ITS ---
Discharge Plan Disposition Patient Disposition: HOME Condition: Stable Discharge Details Chief Complaint: SOB Clinical Impression: Epigastric pain, Chest pain, Breath, shortness Primary Care Provider: Deborah Chow ED Provider: Angelica Majano Home Meds and New Rx's Prescriptions: Continued quetiapine [Seroquel] 50 mg tablet 50 mg PO QHS Qty: 90 RF: 0 Spiriva with HandiHaler 18 mcg capsule, w/inhalation device 1 cap Inhalation DAILY Qty: 90 RF: 0 hydroxyzine HCl 25 mg tablet 25 mg PO TID PRNRF: 0 albuterol sulfate [ProAir HFA] 90 mcg/actuation HFA aerosol inhaler 2 puff Inhalation Q4H PRN PRN (Reason: Shortness Of Breath) Qty: 1 RF: 1 multivitamin tablet 1 tab PO QAM Qty: 90 RF: 3 thiamine HCl (vitamin B1) 100 mg tablet 100 mg PO DAILY Qty: 90 RF: 3 fluoxetine 20 mg tablet 20 mg PO DAILY Qty: 90 RF: 3 OptiChamber Advantage 1 EACH spacer 1 ea Miscellaneous DIRECTED RF: 0 albuterol sulfate 2.5 MG/3 ML solution for nebulization 2.5 mg Inhalation Q4H PRN PRN (Reason: Shortness Of Breath) 30 Days RF: 0 guaifenesin [Mucus Relief] 400 mg Tablet 400 mg PO Q4H PRNRF: 0 pantoprazole 40 mg tablet,delayed release (DR/EC) 40 mg PO DAILY Qty: 90 RF: 3 Symbicort 10.2 GM HFA aerosol inhaler 10.2 gm Inhalation BID Qty: 3 RF: 3 calcium carbonate [Tums] 300 mg (750 mg) tablet,chewable 300 mg PO BID PRN (Reason: dyspepsia) Qty: 20 RF: 0 No Action clonazepam 0.5 mg tablet 0.5 mg PO BID Qty: 2 RF: 0 quetiapine [Seroquel] 25 mg tablet 25 mg PO BID Qty: 20 RF: 0 Discharge Instructions Instructions: Chest Pain (ED) Additional Instructions: Your EKG is reassuring today. As this is been going on for 8 weeks and is largely unchanged, you have had multiple work-ups in the emergency department for this, there is no emergent need to have further done. You need to keep your appointment with your primary care in 2 days. If you develop difficulty breathing, increased pain or other new/worsening symptoms please seek care urgently once again. Referrals: Deborah Chow MD [Primary Care Provider] - Discharge Data Discharge Date/Time-TO BE ENTERED AT DEPARTURE: 10/15/18 19:00 Medical Decision Making Patient is 63-year-old male, well-known to myself in the department, presenting today for evaluation of chronic epigastric and chest pain. He reports that this chest discomfort as well as shortness of breath have been ongoing for the past 8 weeks. No acute change in this today. Patient has been here over 14 times in the past month for same complaint. He has been quite anxious and reports that this is a driving component of his symptoms which is something we have discussed at length when I saw him a few days ago. He has an appointment with his primary care on Monday. Again, the patient is requesting home health, a request that this has been placed with rn coronary care unit. I asked advised to discuss this further with his primary care as well. Patient appears nontoxic, appears to be at his baseline. He is breathing comfortably, speaking in complete sentences. Lungs are clear. NSR, no cardiac abnormality noted. I did review the chest x- ray, EKG and labs are completed yesterday. Repeat EKG was obtained today with no acute findings noted. EKG was reviewed by Dr. Lizarraga today, NSR, no acute abnormality noted. I discussed with the patient that as the symptoms have been consistent over the past several months patient has had multiple work-ups without any acute eyes, I do not see need to repeat this today. Patient has upcoming appointment with his primary care. I again encouraged anxiolytic techniques. All of his questions and concerns were addressed and he is in agreement with this plan. Patient seems much calmer after being evaluated. He has been here very frequently, would benefit from home services. HPI General Mode of arrival: ambulatory . Date/Time Provider Initiated Documentation: 10/15/18 18:42 . Limitations to Documentation: no limitations . Information obtained by: patient and RN notes reviewed . History of Present Illness 63 year old M presents to the emergency department with the chief complaint of shortness of breath, described as moderate, Quality is described as aching, and is localized to the chest. Patient reports no radiation. Patient started experiencing this month(s) (3) and it has been constant. No relieving factors improve symptom(s), Other factors that worsen symptoms (stress) . Patient notes chest pain and shortness of breath; denies cough, diaphoresis, fever/chills, headaches, loss of appetite, malaise, nausea/vomiting, rash, syncope and weakness. Patient did receive the following treatments prior to arrival, none Related Data Home Medications Medication Instructions [facility]ed [facility] 10/17/18 albuterol sulfate 2.5 mg INHALATION Q4H PRN PRN 30 10/15/17 10/17/18 Days ml albuterol sulfate HFA 90 2 puff INHALATION Q4H PRN PRN #1 07/02/18 10/17/18 mcg/actuation aerosol inhaler inh multivitamin tablet 1 tab PO QAM #90 tab 07/02/18 10/17/18 thiamine HCl (vitamin B1) 100 mg 100 mg PO DAILY #90 tab 07/02/18 10/17/18 tablet guaifenesin [Mucus Relief] 400 mg PO Q4H PRN 09/09/18 10/17/18 Symbicort 10.2 gm INHALATION BID #3 inhaler 09/21/18 10/17/18 pantoprazole 40 mg PO DAILY #90 tab 09/21/18 10/17/18 hydroxyzine HCl 25 mg tablet 25 mg PO TID PRN tab 09/26/18 10/17/18 quetiapine 50 mg tablet 50 mg PO QHS #90 tab 09/26/18 10/17/18 tiotropium bromide 18 mcg capsule 1 cap INHALATION DAILY #90 inh 09/26/18 10/17/18 with inhalation device fluoxetine 20 mg tablet 20 mg PO DAILY #90 tab-cap 10/02/18 10/17/18 calcium carbonate [Tums] 300 mg PO BID PRN #20 tab 10/14/18 10/17/18 clonazepam 0.5 mg tablet 0.5 mg PO BID #2 tab 10/16/18 10/17/18 quetiapine 25 mg tablet 25 mg PO BID #20 tab 10/17/18 10/17/18 Previous Rx's Medication Instructions Recorded [facility] Advantage kit 10/15/17 albuterol sulfate 2.5 mg INHALATION Q4H PRN PRN 30 10/15/17 Days ml albuterol sulfate HFA 90 2 puff INHALATION Q4H PRN PRN #1 07/02/18 mcg/actuation aerosol inhaler inh multivitamin tablet 1 tab PO QAM #90 tab 07/02/18 thiamine HCl (vitamin B1) 100 mg 100 mg PO DAILY #90 tab 07/02/18 tablet Symbicort 10.2 gm INHALATION BID #3 inhaler 09/21/18 pantoprazole 40 mg PO DAILY #90 tab 09/21/18 quetiapine 50 mg tablet 50 mg PO QHS #90 tab 09/26/18 tiotropium bromide 18 mcg capsule 1 cap INHALATION DAILY #90 inh 09/26/18 with inhalation device fluoxetine 20 mg tablet 20 mg PO DAILY #90 tab-cap 10/02/18 calcium carbonate [Tums] 300 mg PO BID PRN #20 tab 10/14/18 clonazepam 0.5 mg tablet 0.5 mg PO BID #2 tab 10/16/18 quetiapine 25 mg tablet 25 mg PO BID #20 tab 10/17/18 Allergies Allergy/AdvReac Type Severity Reaction Status Date / Time No Known Allergies Allergy Verified 10/17/18 14:40 General Stated Complaint: SOB FLASH: 3 Review of Systems Constitutional Reports as per HPI, Denies chills, Denies fever(s), Denies headache(s), Denies lethargy and Denies poor appetite Eyes Denies change in vision ENT Denies dizziness and Denies headache(s) Cardiovascular Reports as per HPI, Reports chest pain, Reports chest pain at rest, Reports chest pain with activity (constant, unchaged with activity), Denies diaphoresis, Denies syncope, Denies rapid heart rate, Denies pedal edema, Denies irregular heart rhythm, Denies leg edema, Denies lightheadedness, Denies radiating jaw, neck or arm pain, Reports dyspnea (constant, unchanged with exertion) and Denies dyspnea on exertion Respiratory Reports as per HPI, Denies chest congestion, Denies cough, Denies pain on inspiration, Denies pain with cough, Reports dyspnea (constant, unchanged with exertion), Denies dyspnea on exertion and Denies wheezing Gastrointestinal Reports as per HPI, Denies abdominal pain, Denies diarrhea, Denies nausea and Denies vomiting Genitourinary Denies system reviewed and no additional complaints, except as docu (denies change in urinary habits) Musculoskeletal Reports as per HPI and Denies back pain Integumentary/Breasts Reports as per HPI and Denies rash Neurologic Reports as per HPI, Denies dizziness, Denies syncope and Denies headache(s) Allergic/Immunologic Denies wheezing [facility] Medical History COPD (chronic obstructive pulmonary disease) (Chronic) Adjustment disorder with anxiety (Chronic) Alcohol abuse (Chronic) Anxiety (Chronic) Dyspepsia (Chronic) Malignant neoplasm of right lung (Chronic) Tubular adenoma of colon (Inactive) Surgical History History of lung biopsy (Resolved) History of surgery on upper extremity (Resolved) colonoscopy (Inactive 01/19/15) Social History Smoking/Tobacco Use Status: Former Tobacco Use Tobacco: How many years used: 30 Alcohol Intake: former Drug use: Never 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 Adopted: No Foster care: No Household members: family Housing: house Number of Children: 0 Communication Needs: None current occupation: not working Current gender identity: male What type of physical activity do you participate in: none and other Details: started lifting weights Frequency: daily Seatbelt use: always Drive intox or ride w/intox 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 Exam Const General: cooperative, comfortable, no acute distress, well developed, anxious and ill appearing chronically Nutritional Appearance: well nourished Orientation: alert, awake, oriented x3 and oriented to person [facility] Head: normal to inspection Ears: hearing grossly normal bilaterally Mouth: moist mucous membranes Chest Chest: normal inspection of the chest, normal palpation of entire chest wall and no crepitus Resp Effort & Inspection: normal respiratory effort, able to speak in complete sentences and no respiratory distress Auscultation: clear to auscultation bilaterally, no rales, no rhonchi and no wheezes Cardio Rate: regular rate Rhythm: regular rhythm Heart Sounds: S1 normal and S2 normal GI Inspection: normal to inspection, no edema and non-distended Palpation: soft, no hepatosplenomegaly, not firm, no guarding, not rigid and nontender Auscultation: normal bowel sounds Back/Spine/Pelvis Back: no CVA tenderness Thoracic/Lumbar Spine: thoracic and lumbar spine normal to inspection Skin General skin exam: no rashes or lesions noted Trauma: no lacerations or abrasions Neuro General: alert, awake and oriented x3 Cognition: normal cognition Speech: speech normal Gait: normal gait Extrem General: normal to inspection, normal capillary refill, no pedal edema, no calf tenderness and normal gait Psych Appearance: grossly normal and well kempt Mental Status: mental status grossly normal Speech and Movement: speech and movement normal Course Vital Signs Temperature 37.1 C 10/15/18 18:27 Pulse 85 10/15/18 18:27 Respiratory Rate 16 10/15/18 18:27 Blood Pressure 151/75 H 10/15/18 18:27 Pulse Oximetry 96 10/15/18 18:27 Temperature 37.1 C 10/15/18 18:27 Temperature Source Skin 10/15/18 18:27 Pulse 85 10/15/18 18:27 Respiratory Rate 16 10/15/18 18:27 Respiratory Effort Non-Labored 10/15/18 18:27 Blood Pressure 151/75 H 10/15/18 18:27 Blood Pressure Position Sitting 10/15/18 18:27 Pulse Oximetry 96 10/15/18 18:27 Oxygen Delivery Method Room Air 10/15/18 18:27 Oxygen Flow Rate 0 10/15/18 18:27 Pain Level 8 10/15/18 18:27
== END 2018-10-15 19:00 | disposition home or self-care (01) ==
PROVIDERS: Emergency Provider Physician Assistant; PCP Internal Medicine
DX: G89.29 Other chronic pain (principal); R10.13 Epigastric pain; R07.9 Chest pain, unspecified; R06.02 Shortness of breath
CPT/HCPCS: 93005; 99283; 93010

== ENCOUNTER 2018-10-18 14:24 | Emergency (ER) | payer MEDICAID, SELFPAY ==
[2018-10-18 14:33] VITALS: BP 129/87; PULSE 86; RESP 20; TEMP 36.8; O2SAT 96
--- NOTE | 2018-10-18 14:38 | W.ED.GENAD ---
Discharge Plan Disposition Patient Disposition: HOME Condition: Stable Discharge Details Chief Complaint: RespSymp Clinical Impression: Anxiety, Breath shortness Primary Care Provider: Deborah Chow ED Provider: Angelica Majano Home Meds and New Rx's Prescriptions: Continued quetiapine [Seroquel] 50 mg tablet 50 mg PO QHS Qty: 90 RF: 0 Spiriva with HandiHaler 18 mcg capsule, w/inhalation device 1 cap Inhalation DAILY Qty: 90 RF: 0 hydroxyzine HCl 25 mg tablet 25 mg PO TID PRNRF: 0 albuterol sulfate [ProAir HFA] 90 mcg/actuation HFA aerosol inhaler 2 puff Inhalation Q4H PRN PRN (Reason: Shortness Of Breath) Qty: 1 RF: 1 multivitamin tablet 1 tab PO QAM Qty: 90 RF: 3 thiamine HCl (vitamin B1) 100 mg tablet 100 mg PO DAILY Qty: 90 RF: 3 fluoxetine 20 mg tablet 20 mg PO DAILY Qty: 90 RF: 3 clonazepam 0.5 mg tablet 0.5 mg PO BID Qty: 2 RF: 0 quetiapine [Seroquel] 25 mg tablet 25 mg PO BID Qty: 20 RF: 0 OptiChamber Advantage 1 EACH spacer 1 ea Miscellaneous DIRECTED RF: 0 albuterol sulfate 2.5 MG/3 ML solution for nebulization 2.5 mg Inhalation Q4H PRN PRN (Reason: Shortness Of Breath) 30 Days RF: 0 guaifenesin [Mucus Relief] 400 mg Tablet 400 mg PO Q4H PRNRF: 0 pantoprazole 40 mg tablet,delayed release (DR/EC) 40 mg PO DAILY Qty: 90 RF: 3 Symbicort 10.2 GM HFA aerosol inhaler 10.2 gm Inhalation BID Qty: 3 RF: 3 calcium carbonate [Tums] 300 mg (750 mg) tablet,chewable 300 mg PO BID PRN (Reason: dyspepsia) Qty: 20 RF: 0 Discharge Instructions Instructions: Dyspnea (ED) Additional Instructions: Encourage hydration. Please use visual aid given to you by respiratory therapy when you develop shortness of breath again. When you become anxious, try to think of the steps that you have been given about the emergency department as well as her primary care office. Please keep your upcoming appointment with your primary care. Please contact [facility] to discuss going to [place] once again. When you begin having recurrent symptoms contact your primary care first prior to coming to the emergency department. Try to step through your care plan prior to coming emergency department. If you have different symptoms than your typical, return to the ER. Referrals: Deborah Chow MD [Primary Care Provider] - Medical Decision Making Patient is a 63-year-old male, well-known to myself, with chief complaint of shortness of breath. He reports that he was mowing the lawn when he began feeling wheezy. Patient has a well-defined plan from respiratory therapy regarding the shortness of breath. Patient has chronic shortness of breath assist with COPD and known lung cancer. However, patient did not follow this plan. Reports that he brought himself urgently to the emergency department. Patient has been here multiple times over the past few weeks for the same complaints. Patient reports feeling very anxious because he lives with his parents his mother has upcoming surgery. He also has upcoming surgery which again is increasing his anxiety. Patient is aware of the fact that this is likely cured by his anxiety. This of wheezing is the same as his typical. He denies any chest pain at this time. No abdominal pain at this time. Contact the patient's primary care as he has been here so many times, 23 in the past year. They advised that he has been in their office for the last few days. They have behavioral health, counselor in place. They did have a team meeting next week and . They are trying to keep patient out of the emergency department advised that we remind him to call the primary care prior to seeing him in the emergency department. Advised that they have attempted to set up multiple social therapeutic resources for the patient has declined these. Laura Cole, healthcare management, and myself discussed this with the patient. He reports that he does not want to go to these events because he does not have a ride. Patient is qualified for RCT. He seems excited that he could use RCT to be able to go to [facility]. Patient I discussed options for treatment in depth. At this point, he seems to be having the same symptoms he typically has. He is denying any new or worsening symptoms. He did not follow the care plan set up by by respiratory therapy. We will give him his nebulizer here. Copies of his respiratory therapy plan was given to the patient he agrees to carry this with him afterwards but he reports this even if he is outside. He was given strict return precautions as well as to what to do with any new or worsening symptoms and how to avoid these frequent visits to the emergency department. All of his questions and concerns were addressed and he is in agreement with this plan. HPI General Mode of arrival: ambulatory. Date/Time Provider Initiated Documentation: 10/18/18 14:38. Limitations to Documentation: no limitations. Information obtained by: patient and RN notes reviewed. History of Present Illness 63 year old M presents to the emergency department with the chief complaint of shortness of breath, described as moderate, Patient started experiencing this month(s) and it has been intermittent (exacerbation with mowing today). Medication improves symptom(s), Movement worsens symptoms . Patient notes no other symptoms.. Patient did receive the following treatments prior to arrival, none Related Data Home Medications Medication Instructions Recorded Confirmed Ingageapp Advantage kit 10/15/17 10/17/18 albuterol sulfate 2.5 mg INHALATION Q4H PRN PRN 30 10/15/17 10/17/18 Days ml albuterol sulfate HFA 90 2 puff INHALATION Q4H PRN PRN #1 07/02/18 10/17/18 mcg/actuation aerosol inhaler inh multivitamin tablet 1 tab PO QAM #90 tab 07/02/18 10/17/18 thiamine HCl (vitamin B1) 100 mg 100 mg PO DAILY #90 tab 07/02/18 10/17/18 tablet guaifenesin [Mucus Relief] 400 mg PO Q4H PRN 09/09/18 10/17/18 Symbicort 10.2 gm INHALATION BID #3 inhaler 09/21/18 10/17/18 pantoprazole 40 mg PO DAILY #90 tab 09/21/18 10/17/18 hydroxyzine HCl 25 mg tablet 25 mg PO TID PRN tab 09/26/18 10/17/18 quetiapine 50 mg tablet 50 mg PO QHS #90 tab 09/26/18 10/17/18 tiotropium bromide 18 mcg capsule 1 cap INHALATION DAILY #90 inh 09/26/18 10/17/18 with inhalation device fluoxetine 20 mg tablet 20 mg PO DAILY #90 tab-cap 10/02/18 10/17/18 calcium carbonate [Tums] 300 mg PO BID PRN #20 tab 10/14/18 10/17/18 clonazepam 0.5 mg tablet 0.5 mg PO BID #2 tab 10/16/18 10/17/18 quetiapine 25 mg tablet 25 mg PO BID #20 tab 10/17/18 10/17/18 Previous Rx's Medication Instructions [facility] 10/15/17 albuterol sulfate 2.5 mg INHALATION Q4H PRN PRN 30 10/15/17 Days ml albuterol sulfate HFA 90 2 puff INHALATION Q4H PRN PRN #1 07/02/18 mcg/actuation aerosol inhaler inh multivitamin tablet 1 tab PO QAM #90 tab 07/02/18 thiamine HCl (vitamin B1) 100 mg 100 mg PO DAILY #90 tab 07/02/18 tablet Symbicort 10.2 gm INHALATION BID #3 inhaler 09/21/18 pantoprazole 40 mg PO DAILY #90 tab 09/21/18 quetiapine 50 mg tablet 50 mg PO QHS #90 tab 09/26/18 tiotropium bromide 18 mcg capsule 1 cap INHALATION DAILY #90 inh 09/26/18 with inhalation device fluoxetine 20 mg tablet 20 mg PO DAILY #90 tab-cap 10/02/18 calcium carbonate [Tums] 300 mg PO BID PRN #20 tab 10/14/18 clonazepam 0.5 mg tablet 0.5 mg PO BID #2 tab 10/16/18 quetiapine 25 mg tablet 25 mg PO BID #20 tab 10/17/18 Allergies Allergy/AdvReac Type Severity Reaction Status Date / Time No Known Allergies Allergy Verified 10/17/18 14:40 General Stated Complaint: RespSymp FLASH: 4 Review of Systems Constitutional Reports as per HPI, Denies chills, Denies fever(s), Denies headache(s), Denies lethargy and Denies poor appetite Eyes Denies change in vision ENT Denies dizziness and Denies headache(s) Cardiovascular Reports as per HPI, Denies chest pain, Denies claudication, Denies lightheadedness, Denies palpitations, Reports dyspnea and Reports dyspnea on exertion (wheezing today while mowing) Respiratory Reports as per HPI, Denies chest congestion, Denies cough, Denies pain on inspiration, Denies pain with cough, Reports dyspnea, Reports dyspnea on exertion (wheezing today while mowing) and Denies wheezing Gastrointestinal Reports as per HPI, Denies abdominal pain, Denies diarrhea, Denies nausea and Denies vomiting Genitourinary Denies system reviewed and no additional complaints, except as docu (denies change in urinary habits) Musculoskeletal Reports as per HPI and Denies back pain Integumentary/Breasts Reports as per HPI and Denies rash Neurologic Reports as per HPI, Denies dizziness and Denies headache(s) Endocrine Denies palpitations Allergic/Immunologic Denies wheezing [facility] Social History Smoking/Tobacco Use Status: Former Tobacco Use Tobacco: How many years used: 30 Alcohol Intake: former Drug use: Never 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 Adopted: No Foster care: No Household members: family Housing: house Number of Children: 0 Communication Needs: None current occupation: not working Current gender identity: male What type of physical activity do you participate in: none and other Details: started lifting weights Frequency: daily Seatbelt use: always Drive intox or ride w/intox uke 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 Exam Const General: cooperative, comfortable, no acute distress, well developed and ill appearing chronically Nutritional Appearance: well nourished and thin Orientation: alert, awake and oriented x3 HENMT Head: normal to inspection Ears: hearing grossly normal bilaterally Mouth: moist mucous membranes Chest Chest: normal inspection of the chest, normal palpation of entire chest wall and no crepitus Resp Effort & Inspection: normal respiratory effort, able to speak in complete sentences and no respiratory distress Auscultation: clear to auscultation bilaterally, no rales, no rhonchi and no wheezes Cardio Rate: regular rate Rhythm: regular rhythm Heart Sounds: S1 normal and S2 normal GI Inspection: normal to inspection, no edema and non-distended Palpation: soft, no hepatosplenomegaly, not firm, no guarding, not rigid and nontender Auscultation: normal bowel sounds Back/Spine/Pelvis Back: no CVA tenderness Thoracic/Lumbar Spine: thoracic and lumbar spine normal to inspection Skin General skin exam: no rashes or lesions noted Trauma: no lacerations or abrasions Neuro General: alert, awake and oriented x3 Cognition: normal cognition Speech: speech normal Gait: normal gait Extrem General: normal to inspection, normal capillary refill, no pedal edema, no calf tenderness and normal gait Psych Appearance: grossly normal and well kempt Mental Status: mental status grossly normal Speech and Movement: speech and movement normal Course Vital Signs Temperature 36.8 C 10/18/18 14:33 Pulse 86 10/18/18 14:33 Respiratory Rate 20 10/18/18 14:33 Blood Pressure 129/87 10/18/18 14:33 Pulse Oximetry 96 10/18/18 14:33 Temperature 36.8 C 10/18/18 14:33 Temperature Source Temporal Artery Scan 10/18/18 14:33 Pulse 86 10/18/18 14:33 Respiratory Rate 20 10/18/18 14:33 Respiratory Effort Non-Labored 10/18/18 14:33 Blood Pressure 129/87 10/18/18 14:33 Pulse Oximetry 96 10/18/18 14:33 Oxygen Delivery Method Room Air 10/18/18 14:33 Oxygen Flow Rate 0 10/18/18 14:33 Pain Level 0 10/18/18 14:33
--- NOTE | 2018-10-18 15:16 | PDOC.ERCMPRO ---
Care Management Progress Note 10/18-Angelica AMBROCIO and this CM met with Iggy. Please see provider note. Iggy has been to the emergency department 23 times this year. Iggy has been to his PCP twice this week as well. nAgelica spoke with [facility] and they stated that there is a care team meeting at 1115 next . Iggy expressed to Angelica that he would like a denial management representative of the emergency department to be at the Care Team meeting. Notified Mela, respiratory therapy for a copy of his visual plan for respiratory. When Iggy has shortness of breath he is supposed to use his nebulizer and he does not do that and vocalizes that he doesn't follow the plan. 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 Discussed RCT as he has medicaid and this CM gave him RCT contact information.
[2018-10-18 15:22] VITALS: PULSE 80; RESP 1; RESP 16; O2SAT 98
[2018-10-18] MEDS: Albuterol 2.5 MG/3 ML INH SOLN VIAL UPD (15:22)
--- NOTE | 2018-10-18 15:22 | CMPROGNOTE_ITS ---
Care Management Progress Note 10/18-Angelica AMBROCIO and this CM met with Iggy. Please see provider note. Iggy has been to the emergency department 23 times this year. Iggy has been to his PCP twice this week as well. Angelica spoke with [facility] and they stated that there is a care team meeting at 1115 next . Iggy expressed to Angelica that he would like a traveling sales representative of the emergency department to be at the Care Team meeting. Notified Mela, respiratory therapy for a copy of his visual plan for respiratory. When Iggy has shortness of breath he is supposed to use his nebulizer and he does not do that and vocalizes that he doesn't follow the plan. 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 Discussed RCT as he has medicaid and this CM gave him RCT contact information.
[2018-10-18 15:36] VITALS: PULSE 86; RESP 18; O2SAT 97
--- NOTE | 2018-10-18 15:40 | ED.GENADUL_ITS ---
Discharge Plan Disposition Patient Disposition: HOME Condition: Stable Discharge Details Chief Complaint: RespSymp Clinical Impression: Anxiety, Breath shortness Primary Care Provider: Deborah Chow ED Provider: Angelica Majano Home Meds and New Rx's Prescriptions: Continued quetiapine [Seroquel] 50 mg tablet 50 mg PO QHS Qty: 90 RF: 0 Spiriva with HandiHaler 18 mcg capsule, w/inhalation device 1 cap Inhalation DAILY Qty: 90 RF: 0 hydroxyzine HCl 25 mg tablet 25 mg PO TID PRNRF: 0 albuterol sulfate [ProAir HFA] 90 mcg/actuation HFA aerosol inhaler 2 puff Inhalation Q4H PRN PRN (Reason: Shortness Of Breath) Qty: 1 RF: 1 multivitamin tablet 1 tab PO QAM Qty: 90 RF: 3 thiamine HCl (vitamin B1) 100 mg tablet 100 mg PO DAILY Qty: 90 RF: 3 fluoxetine 20 mg tablet 20 mg PO DAILY Qty: 90 RF: 3 clonazepam 0.5 mg tablet 0.5 mg PO BID Qty: 2 RF: 0 quetiapine [Seroquel] 25 mg tablet 25 mg PO BID Qty: 20 RF: 0 OptiChamber Advantage 1 EACH spacer 1 ea Miscellaneous DIRECTED RF: 0 albuterol sulfate 2.5 MG/3 ML solution for nebulization 2.5 mg Inhalation Q4H PRN PRN (Reason: Shortness Of Breath) 30 Days RF: 0 guaifenesin [Mucus Relief] 400 mg Tablet 400 mg PO Q4H PRNRF: 0 pantoprazole 40 mg tablet,delayed release (DR/EC) 40 mg PO DAILY Qty: 90 RF: 3 Symbicort 10.2 GM HFA aerosol inhaler 10.2 gm Inhalation BID Qty: 3 RF: 3 calcium carbonate [Tums] 300 mg (750 mg) tablet,chewable 300 mg PO BID PRN (Reason: dyspepsia) Qty: 20 RF: 0 Discharge Instructions Instructions: Dyspnea (ED) Additional Instructions: Encourage hydration. Please use visual aid given to you by respiratory therapy when you develop shortness of breath again. When you become anxious, try to think of the steps that you have been given about the emergency department as well as her primary care office. Please keep your upcoming appointment with your primary care. Please contact [facility] to discuss going to [place] once again. When you begin having recurrent symptoms contact your primary care first prior to coming to the emergency department. Try to step through your care plan prior to coming emergency department. If you have different symptoms than your typical, return to the ER. Referrals: Deborah Chow MD [Primary Care Provider] - Medical Decision Making Patient is a 63-year-old male, well-known to myself, with chief complaint of shortness of breath. He reports that he was mowing the lawn when he began feeling wheezy. Patient has a well-defined plan from respiratory therapy regarding the shortness of breath. Patient has chronic shortness of breath assist with COPD and known lung cancer. However, patient did not follow this plan. Reports that he brought himself urgently to the emergency department. Patient has been here multiple times over the past few weeks for the same complaints. Patient reports feeling very anxious because he lives with his parents his mother has upcoming surgery. He also has upcoming surgery which again is increasing his anxiety. Patient is aware of the fact that this is likely cured by his anxiety. This of wheezing is the same as his typical. He denies any chest pain at this time. No abdominal pain at this time. Contact the patient's primary care as he has been here so many times, 23 in the past year. They advised that he has been in their office for the last few days. They have behavioral health, counselor in place. They did have a team meeting next week and . They are trying to keep patient out of the emergency department advised that we remind him to call the primary care prior to seeing him in the emergency department. Advised that they have attempted to set up multiple social therapeutic resources for the patient has declined these. Laura Cole, home health care coordinator, and myself discussed this with the patient. He reports that he does not want to go to these events because he does not have a ride. Patient is qualified for [facility]. He seems excited that he could use RCT to be able to go to [facility]. Patient I discussed options for treatment in depth. At this point, he seems to be having the same symptoms he typically has. He is denying any new or wors ening symptoms. He did not follow the care plan set up by by respiratory therapy. We will give him his nebulizer here. Copies of his respiratory therapy plan was given to the patient he agrees to carry this with him afterwards but he reports this even if he is outside. He was given strict return precautions as well as to what to do with any new or worsening symptoms and how to avoid these frequent visits to the emergency department. All of his questions and concerns were addressed and he is in agreement with this plan. HPI General Mode of arrival: ambulatory . Date/Time Provider Initiated Documentation: 10/18/18 14:38 . Limitations to Documentation: no limitations . Information obtained by: patient and RN notes reviewed . History of Present Illness 63 year old M presents to the emergency department with the chief complaint of shortness of breath, described as moderate, Patient started experiencing this month(s) and it has been intermittent (exacerbation with mow ing today). Medication improves symptom(s), Movement worsens symptoms . Patient notes no other symptoms.. Patient did receive the following treatments prior to arrival, none Related Data Home Medications Medication Instructions Recorded Confirmed AOL Advantage kit 10/15/17 10/17/18 albuterol sulfate 2.5 mg INHALATION Q4H PRN PRN 30 10/15/17 10/17/18 Days ml albuterol sulfate HFA 90 2 puff INHALATION Q4H PRN PRN #1 07/02/18 10/17/18 mcg/actuation aerosol inhaler inh multivitamin tablet 1 tab PO QAM #90 tab 07/02/18 10/17/18 thiamine HCl (vitamin B1) 100 mg 100 mg PO DAILY #90 tab 07/02/18 10/17/18 tablet guaifenesin [Mucus Relief] 400 mg PO Q4H PRN 09/09/18 10/17/18 Symbicort 10.2 gm INHALATION BID #3 inhaler 09/21/18 10/17/18 pantoprazole 40 mg PO DAILY #90 tab 09/21/18 10/17/18 hydroxyzine HCl 25 mg tablet 25 mg PO TID PRN tab 09/26/18 10/17/18 quetiapine 50 mg tablet 50 mg PO QHS #90 tab 09/26/18 10/17/18 tiotropium bromide 18 mcg capsule 1 cap INHALATION DAILY #90 inh 09/26/18 10/17/18 with inhalation device fluoxetine 20 mg tablet 20 mg PO DAILY #90 tab-cap 10/02/18 10/17/18 calcium carbonate [Tums] 300 mg PO BID PRN #20 tab 10/14/18 10/17/18 clonazepam 0.5 mg tablet 0.5 mg PO BID #2 tab 10/16/18 10/17/18 quetiapine 25 mg tablet 25 mg PO BID #20 tab 10/17/18 10/17/18 Previous Rx's Medication Instructions [facility]ed [facility] 10/15/17 albuterol sulfate 2.5 mg INHALATION Q4H PRN PRN 30 10/15/17 Days ml albuterol sulfate HFA 90 2 puff INHALATION Q4H PRN PRN #1 07/02/18 mcg/actuation aerosol inhaler inh multivitamin tablet 1 tab PO QAM #90 tab 07/02/18 thiamine HCl (vitamin B1) 100 mg 100 mg PO DAILY #90 tab 07/02/18 tablet Symbicort 10.2 gm INHALATION BID #3 inhaler 09/21/18 pantoprazole 40 mg PO DAILY #90 tab 09/21/18 quetiapine 50 mg tablet 50 mg PO QHS #90 tab 09/26/18 tiotropium bromide 18 mcg capsule 1 cap INHALATION DAILY #90 inh 09/26/18 with inhalation device fluoxetine 20 mg tablet 20 mg PO DAILY #90 tab-cap 10/02/18 calcium carbonate [Tums] 300 mg PO BID PRN #20 tab 10/14/18 clonazepam 0.5 mg tablet 0.5 mg PO BID #2 tab 10/16/18 quetiapine 25 mg tablet 25 mg PO BID #20 tab 10/17/18 Allergies Allergy/AdvReac Type Severity Reaction Status Date / Time No Known Allergies Allergy Verified 10/17/18 14:40 General Stated Complaint: RespSymp FLASH: 4 Review of Systems Constitutional Reports as per HPI, Denies chills, Denies fever(s), Denies headache(s), Denies lethargy and Denies poor appetite Eyes Denies change in vision ENT Denies dizziness and Denies headache(s) Cardiovascular Reports as per HPI, Denies chest pain, Denies claudication, Denies lightheadedness, Denies palpitations, Reports dyspnea and Reports dyspnea on exertion (wheezing today while mowing) Respiratory Reports as per HPI, Denies chest congestion, Denies cough, Denies pain on inspiration, Denies pain with cough, Reports dyspnea, Reports dyspnea on exertion (wheezing today while mowing) and Denies wheezing Gastrointestinal Reports as per HPI, Denies abdominal pain, Denies diarrhea, Denies nausea and Denies vomiting Genitourinary Denies system reviewed and no additional complaints, except as docu (denies change in urinary habits) Musculoskeletal Reports as per HPI and Denies back pain Integumentary/Breasts Reports as per HPI and Denies rash Neurologic Reports as per HPI, Denies dizziness and Denies headache(s) Endocrine Denies palpitations Allergic/Immunologic Denies wheezing [facility], [facility] Social History Smoking/Tobacco Use Status: Former Tobacco Use Tobacco: How many years used: 30 Alcohol Intake: former Drug use: Never 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 Adopted: No Foster care: No Household members: family Housing: house Number of Children: 0 Communication Needs: None current occupation: not working Current gender identity: male What type of physical activity do you participate in: none and other Details: started lifting weights Frequency: daily Seatbelt use: always Drive intox or ride w/intox 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 Exam Const General: cooperative, comfortable, no acute distress, well developed and ill appearing chronically Nutritional Appearance: well nourished and thin Orientation: alert, awake and oriented x3 HENMT Head: normal to inspection Ears: hearing grossly normal bilaterally Mouth: moist mucous membranes Chest Chest: normal inspection of the chest, normal palpation of entire chest wall and no crepitus Resp Effort & Inspection: normal respiratory effort, able to speak in complete sentences and no respiratory distress Auscultation: clear to auscultation bilaterally, no rales, no rhonchi and no wheezes Cardio Rate: regular rate Rhythm: regular rhythm Heart Sounds: S1 normal and S2 normal GI Inspection: normal to inspection, no edema and non-distended Palpation: soft, no hepatosplenomegaly, not firm, no guarding, not rigid and nontender Auscultation: normal bowel sounds Back/Spine/Pelvis Back: no CVA tenderness Thoracic/Lumbar Spine: thoracic and lumbar spine normal to inspection Skin General skin exam: no rashes or lesions noted Trauma: no lacerations or abrasions Neuro General: alert, awake and oriented x3 Cognition: normal cognition Speech: speech normal Gait: normal gait Extrem General: normal to inspection, normal capillary refill, no pedal edema, no calf tenderness and normal gait Psych Appearance: grossly normal and well kempt Mental Status: mental status grossly normal Speech and Movement: speech and movement normal Course Vital Signs Temperature 36.8 C 10/18/18 14:33 Pulse 86 10/18/18 14:33 Respiratory Rate 20 10/18/18 14:33 Blood Pressure 129/87 10/18/18 14:33 Pulse Oximetry 96 10/18/18 14:33 Temperature 36.8 C 10/18/18 14:33 Temperature Source Temporal Artery Scan 10/18/18 14:33 Pulse 86 10/18/18 14:33 Respiratory Rate 20 10/18/18 14:33 Respiratory Effort Non-Labored 10/18/18 14:33 Blood Pressure 129/87 10/18/18 14:33 Pulse Oximetry 96 10/18/18 14:33 Oxygen Delivery Method Room Air 10/18/18 14:33 Oxygen Flow Rate 0 10/18/18 14:33 Pain Level 0 10/18/18 14:33
[2018-10-18 15:51] VITALS: BP 129/87; PULSE 86; RESP 18; TEMP 36.8; O2SAT 99
== END 2018-10-18 15:50 | disposition home or self-care (01) ==
PROVIDERS: Emergency Provider Physician Assistant; PCP Internal Medicine
DX: F41.9 Anxiety disorder, unspecified (principal); R06.02 Shortness of breath
CPT/HCPCS: 94640; 99283; J7613

== ENCOUNTER 2018-10-18 19:12 | Emergency (ER) | payer MEDICAID, SELFPAY ==
[2018-10-18 19:22] VITALS: BP 135/88; PULSE 94; RESP 20; TEMP 36.9; O2SAT 96
--- NOTE | 2018-10-18 20:01 | W.ED.GENAD ---
Discharge Plan Disposition Patient Disposition: HOME Condition: Good Discharge Details Chief Complaint: SOB Clinical Impression: Encounter for medical screening examination, Anxiety Primary Care Provider: Deborah Chow ED Provider: Daren Chiang [place] Meds and New Rx's Prescriptions: Continued quetiapine [Seroquel] 50 mg tablet 50 mg PO QHS Qty: 90 RF: 0 Spiriva with HandiHaler 18 mcg capsule, w/inhalation device 1 cap Inhalation DAILY Qty: 90 RF: 0 hydroxyzine HCl 25 mg tablet 25 mg PO TID PRNRF: 0 albuterol sulfate [ProAir HFA] 90 mcg/actuation HFA aerosol inhaler 2 puff Inhalation Q4H PRN PRN (Reason: Shortness Of Breath) Qty: 1 RF: 1 multivitamin tablet 1 tab PO QAM Qty: 90 RF: 3 thiamine HCl (vitamin B1) 100 mg tablet 100 mg PO DAILY Qty: 90 RF: 3 fluoxetine 20 mg tablet 20 mg PO DAILY Qty: 90 RF: 3 clonazepam 0.5 mg tablet 0.5 mg PO BID Qty: 2 RF: 0 quetiapine [Seroquel] 25 mg tablet 25 mg PO BID Qty: 20 RF: 0 OptiChamber Advantage 1 EACH spacer 1 ea Miscellaneous DIRECTED RF: 0 albuterol sulfate 2.5 MG/3 ML solution for nebulization 2.5 mg Inhalation Q4H PRN PRN (Reason: Shortness Of Breath) 30 Days RF: 0 guaifenesin [Mucus Relief] 400 mg Tablet 400 mg PO Q4H PRNRF: 0 pantoprazole 40 mg tablet,delayed release (DR/EC) 40 mg PO DAILY Qty: 90 RF: 3 Symbicort 10.2 GM HFA aerosol inhaler 10.2 gm Inhalation BID Qty: 3 RF: 3 calcium carbonate [Tums] 300 mg (750 mg) tablet,chewable 300 mg PO BID PRN (Reason: dyspepsia) Qty: 20 RF: 0 Discharge Instructions Additional Instructions: Medications as discussed. Follow-up with primary care and psychiatric provider. You do not need to come to the ED and less you have a new/worsening symptoms. Referrals: Deborah Chow MD [Primary Care Provider] - Medical Decision Making Patient is very well-known to me at this point. I reviewed his work-up from a couple of days ago which remains unremarkable. Patient visits to the ED are driven by anxiety and fear of dying. Told me repeatedly on this visit that he is afraid he is going to just stop breathing. I have reassured him once again that this is unlikely to happen. I also jokingly reminded him that we are all going to at some point at which he chuckled and acknowledge this. I have at least made headway with him so that he does not called the ambulance anymore. I have had further discussion with him regarding his ED visits. There is a team meeting scheduled for next week. He is given a GI cocktail for his epigastric discomfort. He is discharged home. Medical Records Medical records reviewed: Yes I reviewed the patient's medical records. HPI General Mode of arrival: ambulatory. Date/Time Provider Initiated Documentation: 10/18/18 19:59. Limitations to Documentation: no limitations. Information obtained by: patient and old records reviewed. HPI Narrative: Patient was just discharged from the ED earlier this afternoon. He returns with complaint of shortness of breath and inability to take a deep breath because of discomfort in the abdomen. He has had multiple visits for same. He had a repeat work-up a couple days ago by Dr. Lyons. He has no new complaint. Related Data Home Medications Medication Instructions Recorded Confirmed Kontest Advantage kit 10/15/17 10/17/18 albuterol sulfate 2.5 mg INHALATION Q4H PRN PRN 30 10/15/17 10/17/18 Days ml albuterol sulfate HFA 90 2 puff INHALATION Q4H PRN PRN #1 07/02/18 10/17/18 mcg/actuation aerosol inhaler inh multivitamin tablet 1 tab PO QAM #90 tab 07/02/18 10/17/18 thiamine HCl (vitamin B1) 100 mg 100 mg PO DAILY #90 tab 07/02/18 10/17/18 tablet guaifenesin [Mucus Relief] 400 mg PO Q4H PRN 09/09/18 10/17/18 Symbicort 10.2 gm INHALATION BID #3 inhaler 09/21/18 10/17/18 pantoprazole 40 mg PO DAILY #90 tab 09/21/18 10/17/18 hydroxyzine HCl 25 mg tablet 25 mg PO TID PRN tab 09/26/18 10/17/18 quetiapine 50 mg tablet 50 mg PO QHS #90 tab 09/26/18 10/17/18 tiotropium bromide 18 mcg capsule 1 cap INHALATION DAILY #90 inh 09/26/18 10/17/18 with inhalation device fluoxetine 20 mg tablet 20 mg PO DAILY #90 tab-cap 10/02/18 10/17/18 calcium carbonate [Tums] 300 mg PO BID PRN #20 tab 10/14/18 10/17/18 clonazepam 0.5 mg tablet 0.5 mg PO BID #2 tab 10/16/18 10/17/18 quetiapine 25 mg tablet 25 mg PO BID #20 tab 10/17/18 10/17/18 Previous Rx's Medication Instructions [facility]ed [facility] 10/15/17 albuterol sulfate 2.5 mg INHALATION Q4H PRN PRN 30 10/15/17 Days ml albuterol sulfate HFA 90 2 puff INHALATION Q4H PRN PRN #1 07/02/18 mcg/actuation aerosol inhaler inh multivitamin tablet 1 tab PO QAM #90 tab 07/02/18 thiamine HCl (vitamin B1) 100 mg 100 mg PO DAILY #90 tab 07/02/18 tablet Symbicort 10.2 gm INHALATION BID #3 inhaler 09/21/18 pantoprazole 40 mg PO DAILY #90 tab 09/21/18 quetiapine 50 mg tablet 50 mg PO QHS #90 tab 09/26/18 tiotropium bromide 18 mcg capsule 1 cap INHALATION DAILY #90 inh 09/26/18 with inhalation device fluoxetine 20 mg tablet 20 mg PO DAILY #90 tab-cap 10/02/18 calcium carbonate [Tums] 300 mg PO BID PRN #20 tab 10/14/18 clonazepam 0.5 mg tablet 0.5 mg PO BID #2 tab 10/16/18 quetiapine 25 mg tablet 25 mg PO BID #20 tab 10/17/18 Allergies Allergy/AdvReac Type Severity Reaction Status Date / Time No Known Allergies Allergy Verified 10/17/18 14:40 General Stated Complaint: SOB FLASH: 3 Review of Systems Review of Systems As documented in HPI otherwise negative as below. Const: no fever, chills, weakness Resp: SOB; no cough, pleuritic pain CV: no CP, diaphoresis, edema, syncope GI: epigastric pain; no nausea, vomiting, diarrhea Neuro: no headache, numbness, focal weakness, confusion [facility] Medical History COPD (chronic obstructive pulmonary disease) (Chronic) Adjustment disorder with anxiety (Chronic) Alcohol abuse (Chronic) Anxiety (Chronic) Dyspepsia (Chronic) Malignant neoplasm of right lung (Chronic) Tubular adenoma of colon (Inactive) Surgical History History of lung biopsy (Resolved) History of surgery on upper extremity (Resolved) colonoscopy (Inactive 01/19/15) Social History Smoking/Tobacco Use Status: Former Tobacco Use Tobacco: How many years used: 30 Alcohol Intake: former Drug use: Never 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 Adopted: No Foster care: No Household members: family Housing: house Number of Children: 0 Communication Needs: None current occupation: not working Current gender identity: male What type of physical activity do you participate in: none and other Details: started lifting weights Frequency: daily Seatbelt use: always Drive intox or ride w/intox 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 Exam Narrative Exam Narrative: Vitals: afebrile and normal Const: WDWN male in NAD. Sleeping in chair. HEENT: NC/AT. Normal facial exam. Neck: Supple. Trachea midline. Lungs: Normal respiratory effort. Lungs are clear. Cor: RRR without murmur/gallop. Good radial pulses. GI: Soft. NT/ND. No guarding or rebound. Neuro: A+O x 3. CN grossly in tact. Good strength and no focal deficit. Course Vital Signs Temperature 98.4 F 10/18/18 19:22 Pulse 94 H 10/18/18 19:22 Respiratory Rate 20 10/18/18 19:22 Blood Pressure 135/88 10/18/18 19:22 Pulse Oximetry 96 10/18/18 19:22 Temperature 98.4 F 05/16/19 19:22 Temperature Source Tympanic 10/18/18 19:22 Pulse 94 H 10/18/18 19:22 Respiratory Rate 20 10/18/18 19:22 Blood Pressure 135/88 10/18/18 19:22 Blood Pressure Position Sitting 10/18/18 19:22 Pulse Oximetry 96 10/18/18 19:22 Oxygen Delivery Method Room Air 10/18/18 19:22 Oxygen Flow Rate 0 10/18/18 19:22 Pain Level 8 10/18/18 19:22
--- NOTE | 2018-10-18 20:04 | ED.GENADUL_ITS ---
Discharge Plan Disposition Patient Disposition: HOME Condition: Good Discharge Details Chief Complaint: SOB Clinical Impression: Encounter for medical screening examination, Anxiety Primary Care Provider: Deborah Chow ED Provider: Daren Chiang Sherman Meds and New Rx's Prescriptions: Continued quetiapine [Seroquel] 50 mg tablet 50 mg PO QHS Qty: 90 RF: 0 Spiriva with HandiHaler 18 mcg capsule, w/inhalation device 1 cap Inhalation DAILY Qty: 90 RF: 0 hydroxyzine HCl 25 mg tablet 25 mg PO TID PRNRF: 0 albuterol sulfate [ProAir HFA] 90 mcg/actuation HFA aerosol inhaler 2 puff Inhalation Q4H PRN PRN (Reason: Shortness Of Breath) Qty: 1 RF: 1 multivitamin tablet 1 tab PO QAM Qty: 90 RF: 3 thiamine HCl (vitamin B1) 100 mg tablet 100 mg PO DAILY Qty: 90 RF: 3 fluoxetine 20 mg tablet 20 mg PO DAILY Qty: 90 RF: 3 clonazepam 0.5 mg tablet 0.5 mg PO BID Qty: 2 RF: 0 quetiapine [Seroquel] 25 mg tablet 25 mg PO BID Qty: 20 RF: 0 [employer] Advantage 1 EACH spacer 1 ea Miscellaneous DIRECTED RF: 0 albuterol sulfate 2.5 MG/3 ML solution for nebulization 2.5 mg Inhalation Q4H PRN PRN (Reason: Shortness Of Breath) 30 Days RF: 0 guaifenesin [Mucus Relief] 400 mg Tablet 400 mg PO Q4H PRNRF: 0 pantoprazole 40 mg tablet,delayed release (DR/EC) 40 mg PO DAILY Qty: 90 RF: 3 Symbicort 10.2 GM HFA aerosol inhaler 10.2 gm Inhalation BID Qty: 3 RF: 3 calcium carbonate [Tums] 300 mg (750 mg) tablet,chewable 300 mg PO BID PRN (Reason: dyspepsia) Qty: 20 RF: 0 Discharge Instructions Additional Instructions: Medications as discussed. Follow-up with primary care and psychiatric provider. You do not need to come to the ED and less you have a new/worsening symptoms. Referrals: Deborah Chow MD [Primary Care Provider] - Medical Decision Making Patient is very well-known to me at this point. I reviewed his work-up from a couple of days ago which remains unremarkable. Patient visits to the ED are driven by anxiety and fear of dying. Told me repeatedly on this visit that he is afraid he is going to just stop breathing. I have reassured him once again that this is unlikely to happen. I also jokingly reminded him that we are all going to at some point at which he chuckled and acknowledge this. I have at least made headway with him so that he does not called the ambulance anymore. I have had further discussion with him regarding his ED visits. There is a team meeting scheduled for next week. He is given a GI cocktail for his epigastric discomfort. He is discharged home. Medical Records Medical records reviewed: Yes I reviewed the patient's medical records. HPI General Mode of arrival: ambulatory . Date/Time Provider Initiated Documentation: 10/18/18 19:59 . Limitations to Documentation: no limitations . Information obtained by: patient and old records reviewed . HPI Narrative: Patient was just discharged from the ED earlier this afternoon. He returns with complaint of shortness of breath and inability to take a deep breath because of discomfort in the abdomen. He has had multiple visits for same. He had a repeat work-up a couple days ago by Dr. Lyons. He has no new complaint. Related Data Home Medications Medication Instructions Recorded Confirmed [employer] Advantage kit 10/15/17 10/17/18 albuterol sulfate 2.5 mg INHALATION Q4H PRN PRN 30 10/15/17 10/17/18 Days ml albuterol sulfate HFA 90 2 puff INHALATION Q4H PRN PRN #1 07/02/18 10/17/18 mcg/actuation aerosol inhaler inh multivitamin tablet 1 tab PO QAM #90 tab 07/02/18 10/17/18 thiamine HCl (vitamin B1) 100 mg 100 mg PO DAILY #90 tab 07/02/18 10/17/18 tablet guaifenesin [Mucus Relief] 400 mg PO Q4H PRN 09/09/18 10/17/18 Symbicort 10.2 gm INHALATION BID #3 inhaler 09/21/18 10/17/18 pantoprazole 40 mg PO DAILY #90 tab 09/21/18 10/17/18 hydroxyzine HCl 25 mg tablet 25 mg PO TID PRN tab 09/26/18 10/17/18 quetiapine 50 mg tablet 50 mg PO QHS #90 tab 09/26/18 10/17/18 tiotropium bromide 18 mcg capsule 1 cap INHALATION DAILY #90 inh 09/26/18 10/17/18 with inhalation device fluoxetine 20 mg tablet 20 mg PO DAILY #90 tab-cap 10/02/18 10/17/18 calcium carbonate [Tums] 300 mg PO BID PRN #20 tab 10/14/18 10/17/18 clonazepam 0.5 mg tablet 0.5 mg PO BID #2 tab 10/16/18 10/17/18 quetiapine 25 mg tablet 25 mg PO BID #20 tab 10/17/18 10/17/18 Previous Rx's Medication Instructions [facility]ed [facility] 10/15/17 albuterol sulfate 2.5 mg INHALATION Q4H PRN PRN 30 10/15/17 Days ml albuterol sulfate HFA 90 2 puff INHALATION Q4H PRN PRN #1 07/02/18 mcg/actuation aerosol inhaler inh multivitamin tablet 1 tab PO QAM #90 tab 07/02/18 thiamine HCl (vitamin B1) 100 mg 100 mg PO DAILY #90 tab 07/02/18 tablet Symbicort 10.2 gm INHALATION BID #3 inhaler 09/21/18 pantoprazole 40 mg PO DAILY #90 tab 09/21/18 quetiapine 50 mg tablet 50 mg PO QHS #90 tab 09/26/18 tiotropium bromide 18 mcg capsule 1 cap INHALATION DAILY #90 inh 09/26/18 with inhalation device fluoxetine 20 mg tablet 20 mg PO DAILY #90 tab-cap 10/02/18 calcium carbonate [Tums] 300 mg PO BID PRN #20 tab 10/14/18 clonazepam 0.5 mg tablet 0.5 mg PO BID #2 tab 10/16/18 quetiapine 25 mg tablet 25 mg PO BID #20 tab 10/17/18 Allergies Allergy/AdvReac Type Severity Reaction Status Date / Time No Known Allergies Allergy Verified 10/17/18 14:40 General Stated Complaint: SOB FLASH: 3 Review of Systems Review of Systems As documented in HPI otherwise negative as below. Const: no fever, chills, weakness Resp: SOB; no cough, pleuritic pain CV: no CP, diaphoresis, edema, syncope GI: epigastric pain; no nausea, vomiting, diarrhea Neuro: no headache, numbness, focal weakness, confusion [facility] Medical History COPD (chronic obstructive pulmonary disease) (Chronic) Adjustment disorder with anxiety (Chronic) Alcohol abuse (Chronic) Anxiety (Chronic) Dyspepsia (Chronic) Malignant neoplasm of right lung (Chronic) Tubular adenoma of colon (Inactive) Surgical History History of lung biopsy (Resolved) History of surgery on upper extremity (Resolved) colonoscopy (Inactive 01/19/15) Social History Smoking/Tobacco Use Status: Former Tobacco Use Tobacco: How many years used: 30 Alcohol Intake: former Drug use: Never 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 Adopted: No Foster care: No Household members: family Housing: house Number of Children: 0 Communication Needs: None current occupation: not working Current gender identity: male What type of physical activity do you participate in: none and other Details: started lifting weights Frequency: daily Seatbelt use: always Drive intox or ride w/intox patrol 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 Exam Narrative Exam Narrative: Vitals: afebrile and normal Const: WDWN male in NAD. Sleeping in chair. HEENT: NC/AT. Normal facial exam. Neck: Supple. Trachea midline. Lungs: Normal respiratory effort. Lungs are clear. Cor: RRR without murmur/gallop. Good radial pulses. GI: Soft. NT/ND. No guarding or rebound. Neuro: A+O x 3. CN grossly in tact. Good strength and no focal deficit. Course Vital Signs Temperature 98.4 F 10/18/18 19:22 Pulse 94 H 10/18/18 19:22 Respiratory Rate 20 10/18/18 19:22 Blood Pressure 135/88 10/18/18 19:22 Pulse Oximetry 96 10/18/18 19:22 Temperature 98.4 F 05/16/19 19:22 Temperature Source Tympanic 10/18/18 19:22 Pulse 94 H 10/18/18 19:22 Respiratory Rate 20 10/18/18 19:22 Blood Pressure 135/88 10/18/18 19:22 Blood Pressure Position Sitting 10/18/18 19:22 Pulse Oximetry 96 10/18/18 19:22 Oxygen Delivery Method Room Air 10/18/18 19:22 Oxygen Flow Rate 0 10/18/18 19:22 Pain Level 8 10/18/18 19:22
[2018-10-18 20:35] VITALS: BP 135/88; PULSE 94; RESP 18; RESP 20; O2SAT 96
== END 2018-10-18 20:39 | disposition home or self-care (01) ==
PROVIDERS: Emergency Provider Emergency Medicine; PCP Internal Medicine
DX: F41.9 Anxiety disorder, unspecified (principal); R10.13 Epigastric pain
CPT/HCPCS: 99283

== ENCOUNTER 2018-10-21 12:59 | Emergency (ER) | payer MEDICAID, SELFPAY ==
[2018-10-21] VITALS (15 sets, daily range): BP systolic 97–160; BP diastolic 81–95; PULSE 59–79; RESP 7–21; TEMP 37.2; O2SAT 95–98
--- NOTE | 2018-10-21 13:33 | ED.GENADUL_ITS ---
Discharge Plan Disposition Patient Disposition: HOME Condition: Fair Discharge Details Chief Complaint: Chest/Rib Clinical Impression: URI (upper respiratory infection) Primary Care Provider: Deborah Chow ED Provider: Angelica Majano Home Meds and New Rx's Prescriptions: Continued quetiapine [Seroquel] 50 mg tablet 50 mg PO QHS Qty: 90 RF: 0 Spiriva with HandiHaler 18 mcg capsule, w/inhalation device 1 cap Inhalation DAILY Qty: 90 RF: 0 hydroxyzine HCl 25 mg tablet 25 mg PO TID PRNRF: 0 albuterol sulfate [ProAir HFA] 90 mcg/actuation HFA aerosol inhaler 2 puff Inhalation Q4H PRN PRN (Reason: Shortness Of Breath) Qty: 1 RF: 1 multivitamin tablet 1 tab PO QAM Qty: 90 RF: 3 thiamine HCl (vitamin B1) 100 mg tablet 100 mg PO DAILY Qty: 90 RF: 3 fluoxetine 20 mg tablet 20 mg PO DAILY Qty: 90 RF: 3 clonazepam 0.5 mg tablet 0.5 mg PO BID Qty: 2 RF: 0 quetiapine [Seroquel] 25 mg tablet 25 mg PO BID Qty: 20 RF: 0 [employer] Advantage 1 EACH spacer 1 ea Miscellaneous DIRECTED RF: 0 albuterol sulfate 2.5 MG/3 ML solution for nebulization 2.5 mg Inhalation Q4H PRN PRN (Reason: Shortness Of Breath) 30 Days RF: 0 guaifenesin [Mucus Relief] 400 mg Tablet 400 mg PO Q4H PRNRF: 0 pantoprazole 40 mg tablet,delayed release (DR/EC) 40 mg PO DAILY Qty: 90 RF: 3 Symbicort 10.2 GM HFA aerosol inhaler 10.2 gm Inhalation BID Qty: 3 RF: 3 calcium carbonate [Tums] 300 mg (750 mg) tablet,chewable 300 mg PO BID PRN (Reason: dyspepsia) Qty: 20 RF: 0 No Action Cepacol Sorethroat-Cough 5-7.5 mg lozenge 1 avery PO Q4H PRN (Reason: sore throat) Qty: 16 RF: 0 Discharge Instructions Instructions: Upper Respiratory Infection (ED) Additional Instructions: Encourage hydration. Tylenol and ibuprofen as needed for discomfort. Lozenges to help with sore throat. Please keep upcoming appointment with primary care. If you develop emergent issue please seek care urgently once again. Referrals: Deborah Chow MD [Primary Care Provider] - Discharge Data Discharge Date/Time-TO BE ENTERED AT DEPARTURE: 10/21/18 14:30 Medical Decision Making Patient is 63-year-old chronically ill patient, well-known to myself, presented today with similar complaints. Patient has been here multiple times in the past month. At this point however, his complaints are slightly different in the sense that he is having left otalgia, congestion and increased cough. Symptoms are consistent with URI. However, patient reports that his shortness of breath and chest pain have increased with this. This patient has not had labs for evaluation in the past few days, will replete this for screening labs. Given her symptoms, more concern for viral URI than ACS but will screen for this. Patient is not hypoxic or tachycardic, low suspicion for pulmonary embolism. Patient has history of alcohol abuse, anxiety, lung cancer, COPD. EKG reviewed by ISABELA Summers with no acute ischemic changes noted. WC low at 3.7, this is typical for patient. Troponin <0.02. Discussed these findings with the patient. Advised that this is likely URI in the setting who is chronic illnesses. Patient is close follow-up with his primary, he Virgil has appointment scheduled for this week. He is given strict return precautions. However, I did advise that he should return for emergent e valuation. Patient has upcoming planning meeting with his primary care to discuss his recurrent visits and discuss chronic care management. All of his questions and concerns were addressed and he is in agreement this plan. HPI General Mode of arrival: ambulatory . Date/Time Provider Initiated Documentation: 10/21/18 13:14 . Limitations to Documentation: no limitations . Information obtained by: patient and RN notes reviewed . History of Present Illness 63 year old M presents to the emergency department with the chief complaint of chest pain, SOB, left otalgia, sore throat, described as severe and similar to prior episodes, with intensity rated at 10. Quality is described as burning (throat) and aching (CP), Patient reports no radiation. Patient started experiencing this day(s) (sore throat, cough began yesterday) and it has been constant. No exacerbating factors reported . Patient notes chest pain, cough and shortness of breath (chronic); denies confusion, diaphoresis, fever/chills, headaches, loss of appetite, malaise, nausea/vomiting, rash, seizure, syncope and weakness. Patient did receive the following treatments prior to arrival, none Related Data Home Medications Medication Instructions Recorded Confirmed [email or web address] Advantage kit 10/15/17 10/17/18 albuterol sulfate 2.5 mg INHALATION Q4H PRN PRN 30 10/15/17 10/21/18 Days ml albuterol sulfate HFA 90 2 puff INHALATION Q4H PRN PRN #1 07/02/18 10/21/18 mcg/actuation aerosol inhaler inh multivitamin tablet 1 tab PO QAM #90 tab 07/02/18 10/21/18 thiamine HCl (vitamin B1) 100 mg 100 mg PO DAILY #90 tab 07/02/18 10/21/18 tablet guaifenesin [Mucus Relief] 400 mg PO Q4H PRN 09/09/18 10/21/18 Symbicort 10.2 gm INHALATION BID #3 inhaler 09/21/18 10/21/18 pantoprazole 40 mg PO DAILY #90 tab 09/21/18 10/21/18 hydroxyzine HCl 25 mg tablet 25 mg PO TID PRN tab 09/26/18 10/21/18 quetiapine 50 mg tablet 50 mg PO QHS #90 tab 09/26/18 10/21/18 tiotropium bromide 18 mcg capsule 1 cap INHALATION DAILY #90 inh 09/26/18 10/21/18 with inhalation device fluoxetine 20 mg tablet 20 mg PO DAILY #90 tab-cap 10/02/18 10/21/18 calcium carbonate [Tums] 300 mg PO BID PRN #20 tab 10/14/18 10/21/18 clonazepam 0.5 mg tablet 0.5 mg PO BID #2 tab 10/16/18 10/21/18 quetiapine 25 mg tablet 25 mg PO BID #20 tab 10/17/18 10/21/18 dextromethorphan-benzocaine 1 avery PO Q4H PRN #16 each 10/21/18 [Cepacol Sorethroat-Cough] Previous Rx's Medication Instructions [facility]/17 albuterol sulfate 2.5 mg INHALATION Q4H PRN PRN 30 10/15/17 Days ml albuterol sulfate HFA 90 2 puff INHALATION Q4H PRN PRN #1 07/02/18 mcg/actuation aerosol inhaler inh multivitamin tablet 1 tab PO QAM #90 tab 07/02/18 thiamine HCl (vitamin B1) 100 mg 100 mg PO DAILY #90 tab 07/02/18 tablet Symbicort 10.2 gm INHALATION BID #3 inhaler 09/21/18 pantoprazole 40 mg PO DAILY #90 tab 09/21/18 quetiapine 50 mg tablet 50 mg PO QHS #90 tab 09/26/18 tiotropium bromide 18 mcg capsule 1 cap INHALATION DAILY #90 inh 09/26/18 with inhalation device fluoxetine 20 mg tablet 20 mg PO DAILY #90 tab-cap 10/02/18 calcium carbonate [Tums] 300 mg PO BID PRN #20 tab 10/14/18 clonazepam 0.5 mg tablet 0.5 mg PO BID #2 tab 10/16/18 quetiapine 25 mg tablet 25 mg PO BID #20 tab 10/17/18 dextromethorphan-benzocaine 1 avery PO Q4H PRN #16 each 10/21/18 [Cepacol Sorethroat-Cough] Allergies Allergy/AdvReac Type Severity Reaction Status Date / Time No Known Allergies Allergy Verified 10/21/18 18:01 General Stated Complaint: Chest/Rib FLASH: 2 Review of Systems Constitutional Reports as per HPI, Denies chills, Denies fever(s), Denies headache(s), Denies lethargy and Denies poor appetite Eyes Denies change in vision ENT Denies dizziness, Denies ear discharge, Reports otalgia (left), Denies headache(s), Reports nasal congestion, Denies neck pain, Reports sore throat and Reports throat swelling (odd sensation) Cardiovascular Reports as per HPI, Denies leg edema, Denies lightheadedness, Denies radiating jaw, neck or arm pain, Denies palpitations, Reports dyspnea, Reports dyspnea on exertion and Denies slow heart rate Respiratory Reports as per HPI, Denies chest congestion, Reports cough (nonproductive), Denies hemoptysis, Denies pain on inspiration, Denies pain with cough, Reports dyspnea, Reports dyspnea on exertion and Denies wheezing Gastrointestinal Reports as per HPI, Reports abdominal pain (chronic, unchaged), Denies bloating, Denies change in bowel habits, Denies diarrhea, Denies nausea and Denies vomiting Genitourinary Denies system reviewed and no additional complaints, except as docu (denies change in urinary habits) Musculoskeletal Reports as per HPI, Denies back pain and Denies neck pain Integumentary/Breasts Reports as per HPI and Denies rash Neurologic Reports as per HPI, Denies dizziness and Denies headache(s) Endocrine Denies palpitations Allergic/Immunologic Reports throat swelling (odd sensation) and Denies wheezing [facility] Medical History COPD (chronic obstructive pulmonary disease) (Chronic) Adjustment disorder with anxiety (Chronic) Alcohol abuse (Chronic) Anxiety (Chronic) Dyspepsia (Chronic) Malignant neoplasm of right lung (Chronic) Tubular adenoma of colon (Inactive) Surgical History History of lung biopsy (Resolved) History of surgery on upper extremity (Resolved) colonoscopy (Inactive 01/19/15) Social History Smoking/Tobacco Use Status: Former Tobacco Use Tobacco: How many years used: 30 Alcohol Intake: former Drug use: Never 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 Adopted: No Foster care: No Household members: family Housing: house Number of Children: 0 Communication Needs: None current occupation: not working Current gender identity: male What type of physical activity do you participate in: none and other Details: started lifting weights Frequency: daily Seatbelt use: always Drive intox or ride w/intox stake 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 Exam Const General: cooperative, comfortable, no acute distress, well developed and ill appearing chronically Nutritional Appearance: well nourished and cachectic Orientation: alert, awake and oriented x3 HENMT Head: normal to inspection Ears: hearing grossly normal bilaterally, external ears normal and TM's normal bilaterally General nose exam: external nose normal Face and sinus: normal facial exam and sinuses nontender Mouth: oral mucosae normal, lip normal, oropharynx normal, mucous membranes dry (patient appears dry), no muffled voice, no trismus and No restricted motion Throat: posterior oropharynx normal, tonsils normal and uvula midline Chest Chest: normal inspection of the chest, normal palpation of entire chest wall and no crepitus Resp Effort & Inspection: normal respiratory effort, able to speak in complete sentences and no respiratory distress Auscultation: clear to auscultation bilaterally, no rales, no rhonchi and no wheezes Cardio Rate: regular rate Rhythm: regular rhythm Heart Sounds: S1 normal and S2 normal GI Inspection: normal to inspection, no edema and non-distended Palpation: soft, no hepatosplenomegaly, not firm, no guarding, not rigid and nontender Auscultation: normal bowel sounds Back/Spine/Pelvis Back: no CVA tenderness Thoracic/Lumbar Spine: thoracic and lumbar spine normal to inspection Skin General skin exam: no rashes or lesions noted Trauma: no lacerations or abrasions Neuro General: alert, awake and oriented x3 Cognition: normal cognition Speech: speech normal Gait: normal gait Extrem General: normal to inspection, normal capillary refill, no pedal edema, no calf tenderness and normal gait Psych Appearance: grossly normal and well kempt Mental Status: mental status grossly normal Speech and Movement: speech and movement normal Course Vital Signs Temperature 37.2 C 10/21/18 13:12 Pulse 70 10/21/18 13:12 Respiratory Rate 16 10/21/18 13:12 Blood Pressure 160/95 H 10/21/18 13:12 Pulse Oximetry 98 10/21/18 13:12 Temperature 37.2 C 10/21/18 13:12 Temperature Source Skin 10/21/18 13:12 Pulse 70 10/21/18 13:12 Respiratory Rate 16 10/21/18 13:12 Respiratory Effort Non-Labored 10/21/18 13:12 Blood Pressure 160/95 H 10/21/18 13:12 Blood Pressure Position Sitting 10/21/18 13:12 Pulse Oximetry 98 10/21/18 13:12 Oxygen Delivery Method Room Air 10/21/18 13:12 Oxygen Flow Rate 0 10/21/18 13:12 Pain Level 10 10/21/18 13:12
[2018-10-21 13:39] LABS: Abs Immature Grans 0.01 k/cumm (0.0-0.09); Absolute Basophil Count 0.02 k/cumm (0.0-0.2); Absolute Eosinophil Count 0.04 k/cumm (0.0-0.7); Absolute Lymphocyte Count 0.72 k/cumm (1.2-3.4); Absolute Neutrophil Count 2.47 k/cumm (1.2-6.7); Basophils % 0.5; Eosinophils % 1.1; HCT 40.8 % (40.0-50.0); HGB 13.9 g/dL (13.5-17.5); Immature Grans % 0.3; Lymphocytes % 19.1; Mean Corp. HGB Concentration 34.1 g/dL (32.0-36.0); Mean Corpuscular Hemoglobin 29.9 pg (27.0-33.0); Mean Corpuscular Volume 87.7 fL (80-95); Mean Platelet Volume 9.6 fL (8.0-11.0); Monocytes % 13.3; Neutrophils % 65.7; Platelet Count 191 x1000/uL (130-400); RBC 4.65 m/cumm (4.50-6.00); RBC Distribution Width 12.3 % (11.8-14.1); White Blood Cell Count 3.76 k/cumm (4.4-10.8)
[2018-10-21 14:03] LABS: ALT 21 U/L (12-78); AST 16 U/L (15-37); Albumin 3.3 g/dL (3.4-5.0); Alkaline Phosphatase 79 U/L (46-116); Anion Gap 9.6 mmol/L (3-11); BUN 10 mg/dL (7-18); Bilirubin, Total 0.5 mg/dL (0.2-1.0); CO2 28.4 mmol/L (21.0-32.0); CREATININE 1.02 mg/dL (0.70-1.30); Calcium 8.2 mg/dL (8.5-10.1); Chloride 103 mmol/L (98-107); Glucose 110 mg/dL (70-100); Lipase 271 U/L (73-393); Magnesium 2.5 mg/dL (1.8-2.4); Sodium 141 mmol/L (136-145); Total Protein 7.1 g/dL (6.4-8.2); Troponin I < 0.02 ng/mL (0.00-0.06)
== END 2018-10-21 14:30 | disposition home or self-care (01) ==
PROVIDERS: Emergency Provider Physician Assistant; PCP Internal Medicine
DX: J06.9 Acute upper respiratory infection, unspecified (principal); F41.8 Other specified anxiety disorders; J44.9 Chronic obstructive pulmonary disease, unspecified
CPT/HCPCS: 36415; 80053; 83690; 93005; 99284; 83735; 84484; 85025; 93010

== ENCOUNTER 2018-10-21 17:47 | Emergency (ER) | payer MEDICAID, SELFPAY ==
[2018-10-21 17:58] VITALS: BP 144/91; PULSE 78; RESP 16; TEMP 36.9; O2SAT 95
--- NOTE | 2018-10-21 18:14 | NUR.NOTE ---
rn assessed PT several times this week all for SOB. pt here today for SOB however when questioned by RN pt denied SOB
[2018-10-21 19:00] VITALS: RESP 16
--- NOTE | 2018-10-21 20:21 | W.ED.GENAD ---
Discharge Plan Disposition Patient Disposition: HOME Condition: Stable Discharge Details Chief Complaint: SOB Clinical Impression: Acute viral pharyngitis Primary Care Provider: Deborah Chow ED Provider: Ean Lyons Home Meds and New Rx's Prescriptions: New Cepacol Sorethroat-Cough 5-7.5 mg lozenge 1 avery PO Q4H PRN (Reason: sore throat) Qty: 16 RF: 0 Continued quetiapine [Seroquel] 50 mg tablet 50 mg PO QHS Qty: 90 RF: 0 Spiriva with HandiHaler 18 mcg capsule, w/inhalation device 1 cap Inhalation DAILY Qty: 90 RF: 0 hydroxyzine HCl 25 mg tablet 25 mg PO TID PRNRF: 0 albuterol sulfate [ProAir HFA] 90 mcg/actuation HFA aerosol inhaler 2 puff Inhalation Q4H PRN PRN (Reason: Shortness Of Breath) Qty: 1 RF: 1 multivitamin tablet 1 tab PO QAM Qty: 90 RF: 3 thiamine HCl (vitamin B1) 100 mg tablet 100 mg PO DAILY Qty: 90 RF: 3 fluoxetine 20 mg tablet 20 mg PO DAILY Qty: 90 RF: 3 clonazepam 0.5 mg tablet 0.5 mg PO BID Qty: 2 RF: 0 quetiapine [Seroquel] 25 mg tablet 25 mg PO BID Qty: 20 RF: 0 OptiChamber Advantage 1 EACH spacer 1 ea Miscellaneous DIRECTED RF: 0 albuterol sulfate 2.5 MG/3 ML solution for nebulization 2.5 mg Inhalation Q4H PRN PRN (Reason: Shortness Of Breath) 30 Days RF: 0 guaifenesin [Mucus Relief] 400 mg Tablet 400 mg PO Q4H PRNRF: 0 pantoprazole 40 mg tablet,delayed release (DR/EC) 40 mg PO DAILY Qty: 90 RF: 3 Symbicort 10.2 GM HFA aerosol inhaler 10.2 gm Inhalation BID Qty: 3 RF: 3 calcium carbonate [Tums] 300 mg (750 mg) tablet,chewable 300 mg PO BID PRN (Reason: dyspepsia) Qty: 20 RF: 0 Discharge Instructions Instructions: Upper Respiratory Infection (ED) Additional Instructions: Follow-up with Dr. Chow in clinic for recheck. May use Cepacol lozenges tomorrow as prescribed. Home to rest and take your evening medications. Medical Decision Making 63-year-old male presents with sore throat and dry cough for 1 days time. He is had 10 visits to the emergency department in the month of October. Most recently seen by myself earlier in the month with an unremarkable lipase and troponin. He was seen earlier in the day today. His vital signs are essentially normal with the exception being a blood pressure of 144/91. His exam reveals an erythematous oropharynx without swelling or exudate. His rapid strep test is negative. I do feel he has a viral pharyngitis and will trial a single dose of dexamethasone for its anti-inflammatory properties. He will continue his regular medications. Do not feel he has evidence of COPD exacerbation or pneumonia. He is stable for discharge. HPI General Mode of arrival: ambulatory. Date/Time Provider Initiated Documentation: 10/21/18 19:04. Limitations to Documentation: no limitations. Information obtained by: patient. History of Present Illness 63 year old M presents to the emergency department with the chief complaint of Sore throat today with associated dry cough., described as moderate, Quality is described as dull and constant, and is localized to the face. Patient reports no radiation. Patient started experiencing this hour(s) and it has been constant. No relieving factors improve symptom(s), No exacerbating factors reported . Patient notes cough; denies fever/chills. Related Data Home Medications Medication Instructions Recorded [facility] 10/15/17 10/17/18 albuterol sulfate 2.5 mg INHALATION Q4H PRN PRN 30 10/15/17 10/21/18 Days ml albuterol sulfate HFA 90 2 puff INHALATION Q4H PRN PRN #1 07/02/18 10/21/18 mcg/actuation aerosol inhaler inh multivitamin tablet 1 tab PO QAM #90 tab 07/02/18 10/21/18 thiamine HCl (vitamin B1) 100 mg 100 mg PO DAILY #90 tab 07/02/18 10/21/18 tablet guaifenesin [Mucus Relief] 400 mg PO Q4H PRN 09/09/18 10/21/18 Symbicort 10.2 gm INHALATION BID #3 inhaler 09/21/18 10/21/18 pantoprazole 40 mg PO DAILY #90 tab 09/21/18 10/21/18 hydroxyzine HCl 25 mg tablet 25 mg PO TID PRN tab 09/26/18 10/21/18 quetiapine 50 mg tablet 50 mg PO QHS #90 tab 09/26/18 10/21/18 tiotropium bromide 18 mcg capsule 1 cap INHALATION DAILY #90 inh 09/26/18 10/21/18 with inhalation device fluoxetine 20 mg tablet 20 mg PO DAILY #90 tab-cap 10/02/18 10/21/18 calcium carbonate [Tums] 300 mg PO BID PRN #20 tab 10/14/18 10/21/18 clonazepam 0.5 mg tablet 0.5 mg PO BID #2 tab 10/16/18 10/21/18 quetiapine 25 mg tablet 25 mg PO BID #20 tab 10/17/18 10/21/18 dextromethorphan-benzocaine 1 avery PO Q4H PRN #16 each 10/21/18 [Cepacol Sorethroat-Cough] Previous Rx's Medication Instructions [facility]ed [facility] 10/15/17 albuterol sulfate 2.5 mg INHALATION Q4H PRN PRN 30 10/15/17 Days ml albuterol sulfate HFA 90 2 puff INHALATION Q4H PRN PRN #1 07/02/18 mcg/actuation aerosol inhaler inh multivitamin tablet 1 tab PO QAM #90 tab 07/02/18 thiamine HCl (vitamin B1) 100 mg 100 mg PO DAILY #90 tab 07/02/18 tablet Symbicort 10.2 gm INHALATION BID #3 inhaler 09/21/18 pantoprazole 40 mg PO DAILY #90 tab 09/21/18 quetiapine 50 mg tablet 50 mg PO QHS #90 tab 09/26/18 tiotropium bromide 18 mcg capsule 1 cap INHALATION DAILY #90 inh 09/26/18 with inhalation device fluoxetine 20 mg tablet 20 mg PO DAILY #90 tab-cap 10/02/18 calcium carbonate [Tums] 300 mg PO BID PRN #20 tab 10/14/18 clonazepam 0.5 mg tablet 0.5 mg PO BID #2 tab 10/16/18 quetiapine 25 mg tablet 25 mg PO BID #20 tab 10/17/18 dextromethorphan-benzocaine 1 avery PO Q4H PRN #16 each 10/21/18 [Cepacol Sorethroat-Cough] Allergies Allergy/AdvReac Type Severity Reaction Status Date / Time No Known Allergies Allergy Verified 10/21/18 18:01 General Stated Complaint: SOB FLASH: 3 Review of Systems Review of Systems 6 systems reviewed and otherwise negative FOR[facility] Medical History COPD (chronic obstructive pulmonary disease) (Chronic) Adjustment disorder with anxiety (Chronic) Alcohol abuse (Chronic) Anxiety (Chronic) Dyspepsia (Chronic) Malignant neoplasm of right lung (Chronic) Tubular adenoma of colon (Inactive) Surgical History History of lung biopsy (Resolved) History of surgery on upper extremity (Resolved) colonoscopy (Inactive 01/19/15) Social History Smoking/Tobacco Use Status: Former Tobacco Use Tobacco: How many years used: 30 Alcohol Intake: former Drug use: Never 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 Adopted: No Foster care: No Household members: family Housing: house Number of Children: 0 Communication Needs: None current occupation: not working Current gender identity: male What type of physical activity do you participate in: none and other Details: started lifting weights Frequency: daily Seatbelt use: always Drive intox or ride w/intox seasonal delivery 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 Exam Narrative Exam Narrative: GEN: awake, alert, oriented 3. Pleasant, well groomed, interactive. HEAD: Normocephalic, atraumatic ENT: Mucous membranes moist, oropharynx erythematous without overlying exudate or swelling., External ear exam unremarkable EYES: PERRL, EOMI NECK: Full ROM, no URSZULA, no menigismus CHEST/RESP: Nontender, clear to auscultation bilateral, no wheeze/rhonchi/rales CARDIOVASCULAR: RRR, no murmur, rub jeannie. 2+ Rad pulse bilateral ABDOMEN: Soft, nontender, no mass. +Bowel sounds EXT: Full ROM, no edema, no rash Neuro: Grossly normal neurologic exam, conversant, interactive. Psych: Speech fluent, thoughts congruent, affect normal Course Vital Signs Temperature 36.9 C 10/21/18 17:58 Pulse 78 10/21/18 17:58 Respiratory Rate 16 10/21/18 17:58 Blood Pressure 144/91 H 10/21/18 17:58 Pulse Oximetry 95 10/21/18 17:58 Temperature 36.9 C 10/21/18 17:58 Temperature Source Skin 10/21/18 17:58 Pulse 78 10/21/18 17:58 Respiratory Rate 16 10/21/18 19:00 Respiratory Effort 10/21/18 19:00 Respiratory Depth Normal 10/21/18 19:00 Respiratory Pattern Normal 10/21/18 19:00 Blood Pressure 144/91 H 10/21/18 17:58 Blood Pressure Position Sitting 10/21/18 17:58 Pulse Oximetry 95 10/21/18 17:58 Oxygen Delivery Method Room Air 10/21/18 17:58 Oxygen Flow Rate 0 10/21/18 17:58 Pain Level 8 10/21/18 17:58
[2018-10-21] MEDS: Dexamethasone 4 MG TAB 8 MG PO (20:45)
[2018-10-21 20:47] VITALS: PULSE 85; RESP 20; TEMP 36.7; O2SAT 96
--- NOTE | 2018-10-22 07:49 | CMPROGNOTE_ITS ---
Care Management Progress Note 10/22-Dr. Lyons requested PCP (Geraldo) f/u as soon as possible for sore throat. Iggy has had 25 ED visits this year. Referral for f/u along with request for team meeting faxed to [facility] this am.
== END 2018-10-21 20:49 | disposition home or self-care (01) ==
PROVIDERS: Emergency Provider Emergency Medicine; PCP Internal Medicine
DX: J02.9 Acute pharyngitis, unspecified (principal); J06.9 Acute upper respiratory infection, unspecified; F41.8 Other specified anxiety disorders; J44.9 Chronic obstructive pulmonary disease, unspecified
CPT/HCPCS: 87880; 99283; J8540

== ENCOUNTER 2018-10-23 18:05 | Emergency (ER) | payer MEDICAID, SELFPAY ==
[2018-10-23 18:16] VITALS: BP 146/95; PULSE 82; RESP 16; TEMP 36.8; O2SAT 98
--- NOTE | 2018-10-23 20:51 | ED.GENADUL_ITS ---
Discharge Plan Disposition Patient Disposition: HOME Discharge Details Chief Complaint: GenMedical Primary Care Provider: Deborah Chow ED Provider: Dontrell Rudolph Home Meds and New Rx's Prescriptions: New meclizine 25 mg tablet 25 mg PO TID PRN (Reason: dizziness) Qty: 20 RF: 0 Continued quetiapine [Seroquel] 50 mg tablet 50 mg PO QHS Qty: 90 RF: 0 Spiriva with HandiHaler 18 mcg capsule, w/inhalation device 1 cap Inhalation DAILY Qty: 90 RF: 0 hydroxyzine HCl 25 mg tablet 25 mg PO TID PRNRF: 0 albuterol sulfate [ProAir HFA] 90 mcg/actuation HFA aerosol inhaler 2 puff Inhalation Q4H PRN PRN (Reason: Shortness Of Breath) Qty: 1 RF: 1 multivitamin tablet 1 tab PO QAM Qty: 90 RF: 3 thiamine HCl (vitamin B1) 100 mg tablet 100 mg PO DAILY Qty: 90 RF: 3 fluoxetine 20 mg tablet 20 mg PO DAILY Qty: 90 RF: 3 quetiapine [Seroquel] 25 mg tablet 25 mg PO BID Qty: 20 RF: 0 OptiChamber Advantage 1 EACH spacer 1 ea Miscellaneous DIRECTED RF: 0 albuterol sulfate 2.5 MG/3 ML solution for nebulization 2.5 mg Inhalation Q4H PRN PRN (Reason: Shortness Of Breath) 30 Days RF: 0 guaifenesin [Mucus Relief] 400 mg Tablet 400 mg PO Q4H PRNRF: 0 pantoprazole 40 mg tablet,delayed release (DR/EC) 40 mg PO DAILY Qty: 90 RF: 3 Symbicort 10.2 GM HFA aerosol inhaler 10.2 gm Inhalation BID Qty: 3 RF: 3 calcium carbonate [Tums] 300 mg (750 mg) tablet,chewable 300 mg PO BID PRN (Reason: dyspepsia) Qty: 20 RF: 0 Cepacol Sorethroat-Cough 5-7.5 mg lozenge 1 avery PO Q4H PRN (Reason: sore throat) Qty: 16 RF: 0 Medical Decision Making Patient presenting to the emergency department for chief complaint of not feeling well when he lies down. He does state some shortness of breath but does also states some dizziness and feeling funny in his head he states that this started around 4 PM this afternoon about 1 hour after taking fluoxetine. Patient denies any injury or trauma or pain or discomfort at this time. Physical exam shows normal neurological exam except for lateralization to the right with Ariana-Hallpike. Negative hints exam, otherwise unremarkable cardiac and respiratory examination. Given symptoms of vertigo with lateralization to the right and otherwise unremarkable exam I do not feel that any other interventions are needed at this time except for trying some meclizine. Patient was prescribed this to use as needed and informed to follow-up with primary care provider next week for reassessment. Patient placed upon care management list to help arrange his appointment. Patient remained stable throughout his entire time in emergency department with no new or worsening symptoms. return precautions were discussed. after discussion of diagnosis and plan of care patient is no further needs, questions, or concerns and states clear understand ing to return to the emergency department for any worsening symptoms. HPI General Mode of arrival: ambulatory . Date/Time Provider Initiated Documentation: 10/23/18 18:32 . Limitations to Documentation: no limitations . Information obtained by: patient and RN notes reviewed . History of Present Illness 63 year old M presents to the emergency department with the chief complaint of Dizziness, described as moderate, Quality is described as other (Denies pain), Related Data Home Medications Medication Instructions Recorded [facility] 10/15/17 10/23/18 albuterol sulfate 2.5 mg INHALATION Q4H PRN PRN 30 10/15/17 10/23/18 Days ml albuterol sulfate HFA 90 2 puff INHALATION Q4H PRN PRN #1 07/02/18 10/23/18 mcg/actuation aerosol inhaler inh multivitamin tablet 1 tab PO QAM #90 tab 07/02/18 10/23/18 thiamine HCl (vitamin B1) 100 mg 100 mg PO DAILY #90 tab 07/02/18 10/23/18 tablet guaifenesin [Mucus Relief] 400 mg PO Q4H PRN 09/09/18 10/23/18 Symbicort 10.2 gm INHALATION BID #3 inhaler 09/21/18 10/23/18 pantoprazole 40 mg PO DAILY #90 tab 09/21/18 10/23/18 hydroxyzine HCl 25 mg tablet 25 mg PO TID PRN tab 09/26/18 10/23/18 quetiapine 50 mg tablet 50 mg PO QHS #90 tab 09/26/18 10/23/18 tiotropium bromide 18 mcg capsule 1 cap INHALATION DAILY #90 inh 09/26/18 10/23/18 with inhalation device fluoxetine 20 mg tablet 20 mg PO DAILY #90 tab-cap 10/02/18 10/23/18 calcium carbonate [Tums] 300 mg PO BID PRN #20 tab 10/14/18 10/23/18 quetiapine 25 mg tablet 25 mg PO BID #20 tab 10/17/18 10/23/18 Cepacol Sorethroat-Cough 1 avery PO Q4H PRN #16 each 10/21/18 10/23/18 meclizine 25 mg PO TID PRN #20 tab 10/23/18 Previous Rx's [facility]/17 albuterol sulfate 2.5 mg INHALATION Q4H PRN PRN 30 10/15/17 Days ml albuterol sulfate HFA 90 2 puff INHALATION Q4H PRN PRN #1 07/02/18 mcg/actuation aerosol inhaler inh multivitamin tablet 1 tab PO QAM #90 tab 07/02/18 thiamine HCl (vitamin B1) 100 mg 100 mg PO DAILY #90 tab 07/02/18 tablet Symbicort 10.2 gm INHALATION BID #3 inhaler 09/21/18 pantoprazole 40 mg PO DAILY #90 tab 09/21/18 quetiapine 50 mg tablet 50 mg PO QHS #90 tab 09/26/18 tiotropium bromide 18 mcg capsule 1 cap INHALATION DAILY #90 inh 09/26/18 with inhalation device fluoxetine 20 mg tablet 20 mg PO DAILY #90 tab-cap 10/02/18 calcium carbonate [Tums] 300 mg PO BID PRN #20 tab 10/14/18 quetiapine 25 mg tablet 25 mg PO BID #20 tab 10/17/18 Cepacol Sorethroat-Cough 1 avery PO Q4H PRN #16 each 10/21/18 meclizine 25 mg PO TID PRN #20 tab 10/23/18 Allergies Allergy/AdvReac Type Severity Reaction Status Date / Time No Known Allergies Allergy Verified 10/23/18 18:16 General Stated Complaint: GenMedical FLASH: 5 Review of Systems Constitutional Denies fever(s) and Denies headache(s) Eyes Denies change in vision ENT Reports dizziness and Denies headache(s) Cardiovascular Denies chest pain, Denies syncope and Reports dyspnea (Occasionally when he lies down) Respiratory Reports dyspnea (Occasionally when he lies down) Gastrointestinal Denies nausea and Denies vomiting Neurologic Reports as per HPI, Reports dizziness, Denies syncope, Denies headache(s) and Denies sensory deficit PFSH Social History Smoking/Tobacco Use Status: Former Tobacco Use Tobacco: How many years used: 30 Alcohol Intake: former Drug use: Never 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 Adopted: No Foster care: No Household members: family Housing: house Number of Children: 0 Communication Needs: None current occupation: not working Current gender identity: male What type of physical activity do you participate in: none and other Details: started lifting weights Frequency: daily Seatbelt use: always Drive intox or ride w/intox 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 Exam Const General: cooperative, healthy appearing, no acute distress and well groomed Orientation: alert, awake and oriented x3 HENMT Head: normal to inspection Ears: hearing grossly normal bilaterally and TM's normal bilaterally Mouth: oral mucosae normal and moist mucous membranes Throat: posterior oropharynx normal Eyes Visual Roman: normal visual roman by confrontation Alignment and Position: alignment normal Periorbital: periorbital findings normal Eyelids: eyelids normal Sclera: sclerae normal Cornea: corneas normal Pupils: PERRL EOM: EOM intact bilaterally Neck Neck: normal visual inspection, full ROM, no lymphadenopathy and no meningeal signs Resp Effort & Inspection: normal respiratory effort and able to speak in complete sentences Auscultation: clear to auscultation bilaterally Cardio Rate: regular rate Rhythm: regular rhythm Heart Sounds: S1 normal and S2 normal Neuro General: alert, awake, oriented x3, gait normal, tone normal, moves all extremities, CN's II-XI intact bilaterally, not confused and Ariana Hallpike (With lateralization to the right and horizontal nystagmus) Cognition: normal cognition Speech: speech normal Motor: muscle tone normal throughout, strength 5/5 throughout, no pronator drift, no movement abnormalities noted and no fasciculations Sensory Exam: no sensory deficits noted Coordination: [id number] test normal, Romberg test normal, Does not sway with eyes open and rapid alternating movement UE normal Course Vital Signs Temperature 36.8 C 10/23/18 18:16 Pulse 82 10/23/18 18:16 Respiratory Rate 16 10/23/18 18:16 Blood Pressure 146/95 H 10/23/18 18:16 Pulse Oximetry 98 10/23/18 18:16 Temperature 36.8 C 10/23/18 18:16 Temperature Source Temporal Artery Scan 10/23/18 18:16 Pulse 82 10/23/18 18:16 Respiratory Rate 16 10/23/18 18:16 Respiratory Effort 10/23/18 18:20 Respiratory Depth Normal 10/23/18 18:20 Blood Pressure 146/95 H 10/23/18 18:16 Pulse Oximetry 98 10/23/18 18:16 Oxygen Delivery Method Room Air 10/23/18 18:16 Oxygen Flow Rate 0 10/23/18 18:16
--- NOTE | 2018-10-24 07:33 | PDOC.ERCMPRO ---
Care Management Progress Note 10/24Traci presented to the ED last evening for Vertigo. Care Team meeting scheduled for tomorrow morning. Notified [facility] via fax of the ED visit.
== END 2018-10-23 21:25 | disposition home or self-care (01) ==
PROVIDERS: Emergency Provider Nurse Practitioner Family; PCP Internal Medicine
DX: R42 Dizziness and giddiness (principal)
CPT/HCPCS: 99283

== ENCOUNTER 2018-10-24 15:50 | Emergency (ER) | payer MEDICAID, SELFPAY ==
[2018-10-24 15:52] VITALS: BP 144/96; PULSE 85; RESP 20; TEMP 36.8; O2SAT 98
--- NOTE | 2018-10-24 16:02 | ED.GENADUL_ITS ---
Discharge Plan Disposition Patient Disposition: HOME Condition: Stable Discharge Details Chief Complaint: RespSymp Clinical Impression: Anxiety Primary Care Provider: Deborah Chow ED Provider: Mj Chen Home Meds and New Rx's Prescriptions: No Action quetiapine [Seroquel] 50 mg tablet 50 mg PO QHS Qty: 90 RF: 0 Spiriva with HandiHaler 18 mcg capsule, w/inhalation device 1 cap Inhalation DAILY Qty: 90 RF: 0 hydroxyzine HCl 25 mg tablet 25 mg PO TID PRNRF: 0 albuterol sulfate [ProAir HFA] 90 mcg/actuation HFA aerosol inhaler 2 puff Inhalation Q4H PRN PRN (Reason: Shortness Of Breath) Qty: 1 RF: 1 multivitamin tablet 1 tab PO QAM Qty: 90 RF: 3 thiamine HCl (vitamin B1) 100 mg tablet 100 mg PO DAILY Qty: 90 RF: 3 fluoxetine 20 mg tablet 20 mg PO DAILY Qty: 90 RF: 3 quetiapine [Seroquel] 25 mg tablet 25 mg PO BID Qty: 20 RF: 0 OptiChamber Advantage 1 EACH spacer 1 ea Miscellaneous DIRECTED RF: 0 albuterol sulfate 2.5 MG/3 ML solution for nebulization 2.5 mg Inhalation Q4H PRN PRN (Reason: Shortness Of Breath) 30 Days RF: 0 guaifenesin [Mucus Relief] 400 mg Tablet 400 mg PO Q4H PRNRF: 0 pantoprazole 40 mg tablet,delayed release (DR/EC) 40 mg PO DAILY Qty: 90 RF: 3 Symbicort 10.2 GM HFA aerosol inhaler 10.2 gm Inhalation BID Qty: 3 RF: 3 calcium carbonate [Tums] 300 mg (750 mg) tablet,chewable 300 mg PO BID PRN (Reason: dyspepsia) Qty: 20 RF: 0 Cepacol Sorethroat-Cough 5-7.5 mg lozenge 1 avery PO Q4H PRN (Reason: sore throat) Qty: 16 RF: 0 meclizine 25 mg tablet 25 mg PO TID PRN (Reason: dizziness) Qty: 20 RF: 0 Discharge Instructions Additional Instructions: take your anxiety pill when you feel anxious follow up with your primary care provider in 1-2 weeks Medical Decision Making 63 yo male comes in with complainton my exam of feeling anxious. He states his mother is in the hospital, he was visiting her and felt scared and anxious. He took his ativan prior to arrival and feels better. He is speaking in full sentences in no distress. He is requesting d/c and I feel this is reasonable given he has no symptoms on my exam with stable vitals, he will return if anything changes Differential Diagnosis anxiety, asthma HPI General Mode of arrival: ambulatory . Date/Time Provider Initiated Documentation: 10/24/18 16:00 . Limitations to Documentation: no limitations . Information obtained by: patient . History of Present Illness 63 year old M presents to the emergency department with the chief complaint of anxious, described as mild, No relieving factors improve symptom(s), No exacerbating factors reported . Patient notes no other symptoms.. Patient did receive the following treatments prior to arrival, none Related Data Home Medications Medication Instructions Recorded Confirmed Qustreet Advantage kit 10/15/17 10/24/18 albuterol sulfate 2.5 mg INHALATION Q4H PRN PRN 30 10/15/17 10/24/18 Days ml albuterol sulfate HFA 90 2 puff INHALATION Q4H PRN PRN #1 07/02/18 10/24/18 mcg/actuation aerosol inhaler inh multivitamin tablet 1 tab PO QAM #90 tab 07/02/18 10/24/18 thiamine HCl (vitamin B1) 100 mg 100 mg PO DAILY #90 tab 07/02/18 10/24/18 tablet guaifenesin [Mucus Relief] 400 mg PO Q4H PRN 09/09/18 10/24/18 Symbicort 10.2 gm INHALATION BID #3 inhaler 09/21/18 10/24/18 pantoprazole 40 mg PO DAILY #90 tab 09/21/18 10/24/18 hydroxyzine HCl 25 mg tablet 25 mg PO TID PRN tab 09/26/18 10/24/18 quetiapine 50 mg tablet 50 mg PO QHS #90 tab 09/26/18 10/24/18 tiotropium bromide 18 mcg capsule 1 cap INHALATION DAILY #90 inh 09/26/18 10/24/18 with inhalation device fluoxetine 20 mg tablet 20 mg PO DAILY #90 tab-cap 10/02/18 10/24/18 calcium carbonate [Tums] 300 mg PO BID PRN #20 tab 10/14/18 10/24/18 quetiapine 25 mg tablet 25 mg PO BID #20 tab 10/17/18 10/24/18 Cepacol Sorethroat-Cough 1 avery PO Q4H PRN #16 each 10/21/18 10/24/18 meclizine 25 mg PO TID PRN #20 tab 10/23/18 10/24/18 Previous Rx's Medication Instructions Recorded OptiChamber Advantage kit 10/15/17 albuterol sulfate 2.5 mg INHALATION Q4H PRN PRN 30 10/15/17 Days ml albuterol sulfate HFA 90 2 puff INHALATION Q4H PRN PRN #1 07/02/18 mcg/actuation aerosol inhaler inh multivitamin tablet 1 tab PO QAM #90 tab 07/02/18 thiamine HCl (vitamin B1) 100 mg 100 mg PO DAILY #90 tab 07/02/18 tablet Symbicort 10.2 gm INHALATION BID #3 inhaler 09/21/18 pantoprazole 40 mg PO DAILY #90 tab 09/21/18 quetiapine 50 mg tablet 50 mg PO QHS #90 tab 09/26/18 tiotropium bromide 18 mcg capsule 1 cap INHALATION DAILY #90 inh 09/26/18 with inhalation device fluoxetine 20 mg tablet 20 mg PO DAILY #90 tab-cap 10/02/18 calcium carbonate [Tums] 300 mg PO BID PRN #20 tab 10/14/18 quetiapine 25 mg tablet 25 mg PO BID #20 tab 10/17/18 Cepacol Sorethroat-Cough 1 avery PO Q4H PRN #16 each 10/21/18 meclizine 25 mg PO TID PRN #20 tab 10/23/18 Allergies Allergy/AdvReac Type Severity Reaction Status Date / Time No Known Allergies Allergy Verified 10/24/18 15:54 General Stated Complaint: RespSymp FLASH: 3 Review of Systems Review of Systems All systems reviewed & are unremarkable except as noted in HPI and below Constitutional Denies chills, Denies fever(s) and Denies weakness Cardiovascular Denies chest pain Gastrointestinal Denies abdominal pain, Denies nausea and Denies vomiting Integumentary/Breasts Denies rash Neurologic Denies weakness PFSH Social History Smoking/Tobacco Use Status: Former Tobacco Use Tobacco: How many years used: 30 Alcohol Intake: former Drug use: Never 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 Adopted: No Foster care: No Household members: family Housing: house Number of Children: 0 Communication Needs: None current occupation: not working Current gender identity: male What type of physical activity do you participate in: none and other Details: started lifting weights Frequency: daily Seatbelt use: always Drive 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 Exam Const General: no acute distress Orientation: alert HENMT Head: normal to inspection Ears: external ears normal General nose exam: external nose normal Mouth: moist mucous membranes Eyes General: appearance normal, both eyes and all related structures Neck Neck: normal visual inspection Resp Effort & Inspection: normal respiratory effort and able to speak in complete sentences Cardio Rate: regular rate Skin General skin exam: no rashes or lesions noted Neuro General: alert and oriented x3 Extrem General: normal to inspection Psych Mental Status: mental status grossly normal Course Vital Signs Temperature 36.8 C 10/24/18 15:52 Pulse 85 10/24/18 15:52 Respiratory Rate 10/24/18 15:52 Blood Pressure 144/96 H 10/24/18 15:52 Pulse Oximetry 98 10/24/18 15:52 Temperature 36.8 C 10/24/18 15:52 Temperature Source Temporal Artery Scan 10/24/18 15:52 Pulse 85 10/24/18 15:52 Respiratory Rate 20 10/24/18 15:52 Respiratory Effort Non-Labored 10/24/18 15:52 Blood Pressure 144/96 H 10/24/18 15:52 Pulse Oximetry 98 10/24/18 15:52 Oxygen Delivery Method Room Air 10/24/18 15:52 Oxygen Flow Rate 0 10/24/18 15:52
[2018-10-24 17:29] VITALS: BP 144/96; PULSE 85; RESP 20; TEMP 36.8; O2SAT 98
== END 2018-10-24 16:05 | disposition home or self-care (01) ==
PROVIDERS: Emergency Provider Emergency Medicine; PCP Internal Medicine
DX: F41.9 Anxiety disorder, unspecified (principal)
CPT/HCPCS: 99283

== ENCOUNTER 2018-10-25 18:12 | Emergency (ER) | payer MEDICAID, SELFPAY ==
--- NOTE | 2018-10-25 19:26 | NUR.NOTE ---
Nursing Note: Patient arrived, anxious. Was seen by nursing and VS were stable. Care management visited with pt, pt was here visiting his mother who is inpatient upstairs at the moment. Pt calmed on his own and decided to leave without seeing MD.
[2018-10-25 19:28] VITALS: PULSE 76; RESP 22; O2SAT 97
== END 2018-10-25 19:09 ==
LOC: ER 18:26
PROVIDERS: PCP Internal Medicine
DX: F41.9 Anxiety disorder, unspecified (principal); Z53.21 Procedure and treatment not carried out due to patient leaving prior to being seen by health care provider

== ENCOUNTER 2018-10-26 17:22 | Emergency (ER) | payer MEDICAID, SELFPAY ==
[2018-10-26 17:26] VITALS: BP 107/94; PULSE 90; RESP 18; TEMP 36.8; O2SAT 95
--- NOTE | 2018-10-26 17:46 | W.ED.GENAD ---
Discharge Plan Disposition Patient Disposition: HOME Condition: Improving Discharge Details Chief Complaint: GenMedical Clinical Impression: Anxiety, Abdominal pain, Adjustment disorder with anxiety Primary Care Provider: Deborah Chow ED Provider: Dontrell Rudolph Home Meds and New Rx's Prescriptions: Continued quetiapine [Seroquel] 50 mg tablet 50 mg PO QHS Qty: 90 RF: 0 Spiriva with HandiHaler 18 mcg capsule, w/inhalation device 1 cap Inhalation DAILY Qty: 90 RF: 0 hydroxyzine HCl 25 mg tablet 25 mg PO TID PRNRF: 0 albuterol sulfate [ProAir HFA] 90 mcg/actuation HFA aerosol inhaler 2 puff Inhalation Q4H PRN PRN (Reason: Shortness Of Breath) Qty: 1 RF: 1 multivitamin tablet 1 tab PO QAM Qty: 90 RF: 3 thiamine HCl (vitamin B1) 100 mg tablet 100 mg PO DAILY Qty: 90 RF: 3 fluoxetine 20 mg tablet 20 mg PO DAILY Qty: 90 RF: 3 quetiapine [Seroquel] 25 mg tablet 25 mg PO BID Qty: 20 RF: 0 OptiChamber Advantage 1 EACH spacer 1 ea Miscellaneous DIRECTED RF: 0 albuterol sulfate 2.5 MG/3 ML solution for nebulization 2.5 mg Inhalation Q4H PRN PRN (Reason: Shortness Of Breath) 30 Days RF: 0 guaifenesin [Mucus Relief] 400 mg Tablet 400 mg PO Q4H PRNRF: 0 pantoprazole 40 mg tablet,delayed release (DR/EC) 40 mg PO DAILY Qty: 90 RF: 3 Symbicort 10.2 GM HFA aerosol inhaler 10.2 gm Inhalation BID Qty: 3 RF: 3 calcium carbonate [Tums] 300 mg (750 mg) tablet,chewable 300 mg PO BID PRN (Reason: dyspepsia) Qty: 20 RF: 0 Cepacol Sorethroat-Cough 5-7.5 mg lozenge 1 avery PO Q4H PRN (Reason: sore throat) Qty: 16 RF: 0 meclizine 25 mg tablet 25 mg PO TID PRN (Reason: dizziness) Qty: 20 RF: 0 Discharge Instructions Instructions: Abdominal Pain (ED), Anxiety (ED) Additional Instructions: Continue to take your normally prescribed medication and advance your diet as tolerated. Return to the emergency department for any new significant worsening of symptoms otherwise you should follow-up with your primary care provider for ongoing intermittent abdominal pain and anxiety. Referrals: Deborah Chow MD [Primary Care Provider] - (For reassessment) Discharge Data Discharge Date/Time-TO BE ENTERED AT DEPARTURE: 10/26/18 20:10 Medical Decision Making Patient presenting the emergency department for chief complaint of abdominal pain and episode of possible blood in the stool. Patient states that this happened this afternoon. Patient denies any fever chills, vomiting, chest pain shortness of breath or difficulty breathing. Patient is well familiar to myself and has had multiple emergency department visits. Patient is stable in appearance with non-worrisome vital signs, afebrile. Physical exam shows some subjective/mild left CVA tenderness and reported tenderness to the left lower quadrant. Exam is otherwise nondiagnostic and benign. Given patient's multiple does visits with multiple CT imaging and significant history for anxiety causing almost daily emergency department visits plan to start with lab work and monitor patient to see if symptoms self resolved. Review of labs show no change in baseline laboratory results from his previous multiple visits urinalysis shows no blood and is otherwise nondiagnostic. Rectal exam was performed and patient is Hemoccult negative and otherwise has one small external hemorrhoid that is not thrombosed. Reassessed patient's abdomen and patient is now not tender, has no CVA tenderness and states significant improvement of symptoms. Of notation that most of the symptoms resolved after we discussed his laboratory findings which were at baseline. Patient did report that he did have to use the restroom while in the emergency department and had a completely normal bowel movement with no further signs of any red substance. Given resolution of symptoms with no treatment or interventions done in emergency department beyond checking baseline labs I feel that there is a high likelihood that this visit was again for anxiety related complaints. Patient was able to tolerate p.o. intake and stated full resolution of symptoms prior to discharge. After discussion of diagnosis and plan of care patient has no further needs, questions, or concerns and states clear understanding to return to the emergency department for any worsening symptoms. HPI General Mode of arrival: ambulatory. Date/Time Provider Initiated Documentation: 10/26/18 17:24. Limitations to Documentation: no limitations. Information obtained by: patient, RN notes reviewed and old records reviewed. History of Present Illness 63 year old M presents to the emergency department with the chief complaint of Abdominal pain, , described as moderate, with intensity rated at 8. Quality is described as aching and sharp, and is localized to the abdomen and left. Patient started experiencing this hour(s) (1) and it has been constant. No relieving factors improve symptom(s), No exacerbating factors reported . Patient did receive the following treatments prior to arrival, none Related Data Home Medications Medication Instructions Recorded Confirmed OptiChamber Advantage kit 10/15/17 10/24/18 albuterol sulfate 2.5 mg INHALATION Q4H PRN PRN 30 10/15/17 10/26/18 Days ml albuterol sulfate HFA 90 2 puff INHALATION Q4H PRN PRN #1 07/02/18 10/26/18 mcg/actuation aerosol inhaler inh multivitamin tablet 1 tab PO QAM #90 tab 07/02/18 10/26/18 thiamine HCl (vitamin B1) 100 mg 100 mg PO DAILY #90 tab 07/02/18 10/26/18 tablet guaifenesin [Mucus Relief] 400 mg PO Q4H PRN 09/09/18 10/26/18 Symbicort 10.2 gm INHALATION BID #3 inhaler 09/21/18 10/26/18 pantoprazole 40 mg PO DAILY #90 tab 09/21/18 10/26/18 hydroxyzine HCl 25 mg tablet 25 mg PO TID PRN tab 09/26/18 10/26/18 quetiapine 50 mg tablet 50 mg PO QHS #90 tab 09/26/18 10/26/18 tiotropium bromide 18 mcg capsule 1 cap INHALATION DAILY #90 inh 09/26/18 10/26/18 with inhalation device fluoxetine 20 mg tablet 20 mg PO DAILY #90 tab-cap 10/02/18 10/26/18 calcium carbonate [Tums] 300 mg PO BID PRN #20 tab 10/14/18 10/26/18 quetiapine 25 mg tablet 25 mg PO BID #20 tab 10/17/18 10/26/18 Cepacol Sorethroat-Cough 1 avery PO Q4H PRN #16 each 10/21/18 10/26/18 meclizine 25 mg PO TID PRN #20 tab 10/23/18 10/26/18 Previous Rx's Medication Instructions [facility]ed [facility]17 albuterol sulfate 2.5 mg INHALATION Q4H PRN PRN 30 10/15/17 Days ml albuterol sulfate HFA 90 2 puff INHALATION Q4H PRN PRN #1 07/02/18 mcg/actuation aerosol inhaler inh multivitamin tablet 1 tab PO QAM #90 tab 07/02/18 thiamine HCl (vitamin B1) 100 mg 100 mg PO DAILY #90 tab 07/02/18 tablet Symbicort 10.2 gm INHALATION BID #3 inhaler 09/21/18 pantoprazole 40 mg PO DAILY #90 tab 09/21/18 quetiapine 50 mg tablet 50 mg PO QHS #90 tab 09/26/18 tiotropium bromide 18 mcg capsule 1 cap INHALATION DAILY #90 inh 09/26/18 with inhalation device fluoxetine 20 mg tablet 20 mg PO DAILY #90 tab-cap 10/02/18 calcium carbonate [Tums] 300 mg PO BID PRN #20 tab 10/14/18 quetiapine 25 mg tablet 25 mg PO BID #20 tab 10/17/18 Cepacol Sorethroat-Cough 1 avery PO Q4H PRN #16 each 10/21/18 meclizine 25 mg PO TID PRN #20 tab 10/23/18 Allergies Allergy/AdvReac Type Severity Reaction Status Date / Time No Known Allergies Allergy Verified 10/26/18 17:30 General Stated Complaint: GenMedical FLASH: 3 Review of Systems Constitutional Denies chills, Denies fever(s) and Reports poor appetite Cardiovascular Denies chest pain and Denies dyspnea Respiratory Denies cough and Denies dyspnea Gastrointestinal Reports as per HPI, Reports abdominal pain, Denies melena, Reports hematochezia, Denies change in bowel habits, Denies constipation, Denies diarrhea, Denies nausea and Denies vomiting Genitourinary Denies hematuria, Denies difficulty urinating and Denies dysuria Integumentary/Breasts Denies rash [facility] Medical History COPD (chronic obstructive pulmonary disease) (Chronic) Adjustment disorder with anxiety (Chronic) Alcohol abuse (Chronic) Anxiety (Chronic) Dyspepsia (Chronic) Malignant neoplasm of right lung (Chronic) Tubular adenoma of colon (Inactive) Surgical History History of lung biopsy (Resolved) History of surgery on upper extremity (Resolved) colonoscopy (Inactive 01/19/15) Family History Father Essential hypertension Hyperlipidemia Paternal Uncle Heart disease Stroke Cerebral hemorrhage Hypertension Brother Cancer Social History Smoking/Tobacco Use Status: Former Tobacco Use Tobacco: How many years used: 30 Alcohol Intake: former Drug use: Never 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 Adopted: No Foster care: No Household members: family Housing: house Number of Children: 0 Communication Needs: None current occupation: not working Current gender identity: male What type of physical activity do you participate in: none and other Details: started lifting weights Frequency: daily Seatbelt use: always Drive intox or ride w/intox 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 Exam Const General: cooperative Orientation: alert, awake and oriented x3 Resp Effort & Inspection: normal respiratory effort and able to speak in complete sentences Auscultation: clear to auscultation bilaterally Cardio Rate: regular rate Rhythm: regular rhythm Heart Sounds: S1 normal and S2 normal GI Palpation: soft, no hepatosplenomegaly, not firm, no guarding, no masses, no pulsatile masses, not rigid, no splenomegaly and tender in the LLQ; not in the epigastrum, not at McBurney's point and Coates's sign negative Auscultation: normal bowel sounds Back/Spine/Pelvis Back: CVA tenderness (left) Neuro General: alert, awake, oriented x3, gait normal and moves all extremities Course Vital Signs Temperature 36.8 C 10/26/18 17:26 Pulse 90 10/26/18 17:26 Respiratory Rate 18 10/26/18 17:26 Blood Pressure 107/94 H 10/26/18 17:26 Pulse Oximetry 95 10/26/18 17:26 Temperature 36.8 C 10/26/18 17:26 Temperature Source Skin 10/26/18 17:26 Pulse 90 10/26/18 17:26 Respiratory Rate 18 10/26/18 17:26 Blood Pressure 107/94 H 10/26/18 17:26 Blood Pressure Position Sitting 10/26/18 17:26 Pulse Oximetry 95 10/26/18 17:26 Oxygen Delivery Method Room Air 10/26/18 17:26 Oxygen Flow Rate 0 10/26/18 17:26 Pain Level 8 10/26/18 17:26 Comment 10/26/18 17:26
[2018-10-26 18:04] VITALS: RESP 18
[2018-10-26 18:12] LABS: Abs Immature Grans 0.02 k/cumm (0.0-0.09); Absolute Basophil Count 0.01 k/cumm (0.0-0.2); Absolute Eosinophil Count 0.09 k/cumm (0.0-0.7); Absolute Lymphocyte Count 1.14 k/cumm (1.2-3.4); Absolute Monocyte Count 0.45 k/cumm (0.11-0.7); Absolute Neutrophil Count 1.94 k/cumm (1.2-6.7); Basophils % 0.3; Eosinophils % 2.5; HCT 41.2 % (40.0-50.0); HGB 13.8 g/dL (13.5-17.5); Immature Grans % 0.5; Lymphocytes % 31.2; Mean Corp. HGB Concentration 33.5 g/dL (32.0-36.0); Mean Corpuscular Hemoglobin 29.6 pg (27.0-33.0); Mean Corpuscular Volume 88.4 fL (80-95); Mean Platelet Volume 10.1 fL (8.0-11.0); Monocytes % 12.3; Neutrophils % 53.2; Platelet Count 218 x1000/uL (130-400); RBC 4.66 m/cumm (4.50-6.00); RBC Distribution Width 12.6 % (11.8-14.1); White Blood Cell Count 3.65 k/cumm (4.4-10.8)
[2018-10-26 18:21] LABS: ALT 19 U/L (12-78); AST 15 U/L (15-37); Albumin 3.3 g/dL (3.4-5.0); Alkaline Phosphatase 80 U/L (46-116); Anion Gap 8.5 mmol/L (3-11); BUN 15 mg/dL (7-18); Bilirubin, Total 0.4 mg/dL (0.2-1.0); CO2 30.5 mmol/L (21.0-32.0); CREATININE 1.05 mg/dL (0.70-1.30); Calcium 8.1 mg/dL (8.5-10.1); Chloride 104 mmol/L (98-107); Glucose 101 mg/dL (70-100); Lipase 382 U/L (73-393); Potassium 3.8 mmol/L (3.5-5.1); Sodium 143 mmol/L (136-145)
[2018-10-26 19:01] LABS: Bilirubin Negative (Negative); Blood Negative (Negative); Clarity Clear; Glucose Negative (Negative); Ketones Negative (Negative); Leukocyte Esterase Negative (Negative); Nitrite Negative (Negative); Urobilinogen 0.2 EU/dL (Up TO 0.2)
[2018-10-26 19:10] LABS: Bacteria Rare HPF (Negative); C & S Indicated? No; Casts Negative LPF (Negative); Crystals Negative HPF (Negative); Epithelial Cells Negative HPF (Negative); Mucus Trace (Negative); Other Cells Negative (Negative); RBC Negative (0-2); WBC 0-2 HPF (0-5)
--- NOTE | 2018-10-26 19:29 | NUR.NOTE ---
Nursing Note: Pt given christ crackers and PB, and a cup of water.
[2018-10-26 20:09] VITALS: BP 128/75; PULSE 60; RESP 18; TEMP 36.9; O2SAT 98
[2018-10-26] MEDS: Inhaler, Assist Device 1 EACH MC (20:14)
== END 2018-10-26 20:10 | disposition home or self-care (01) ==
PROVIDERS: Emergency Provider Nurse Practitioner Family; PCP Internal Medicine
DX: F43.22 Adjustment disorder with anxiety (principal); R10.32 Left lower quadrant pain; J44.9 Chronic obstructive pulmonary disease, unspecified; Z87.891 Personal history of nicotine dependence
CPT/HCPCS: 36415; 80053; 83690; 99283; 81003; 81015; 85025

== ENCOUNTER 2018-10-27 11:26 | Emergency (ER) | payer MEDICAID, SELFPAY ==
[2018-10-27 11:31] VITALS: BP 139/81; PULSE 70; RESP 16; TEMP 36.7; O2SAT 97
[2018-10-27 11:38] VITALS: RESP 14
--- NOTE | 2018-10-27 11:38 | DI.CT_ITS ---
SYMPTOMS/DIAGNOSIS: DIZZY CT BRAIN: Noncontrast examination. Comparison 11/18/16. The ventricles and sulci are consistent with the patient's age. No intracranial hemorrhage, midline shift, mass effect or acute infarct is seen. There are areas of decreased attenuation in the white matter likely reflecting small vessel ischemic disease. There is opacification of a few ethmoid air cells. The remaining visualized paranasal sinuses are clear. The mastoid air cells are well pneumatized. The calvarium is intact. IMPRESSION: No acute intracranial process.
--- NOTE | 2018-10-27 11:41 | ED.GENADUL_ITS ---
Discharge Plan Disposition Patient Disposition: HOME Condition: Good Discharge Details Chief Complaint: Dizzy/Sync Clinical Impression: Dizziness Primary Care Provider: Deborah Chow ED Provider: Pedro Nichole Home Meds and New Rx's Prescriptions: New meclizine 25 mg tablet 25 mg PO TID Qty: 14 RF: 0 No Action quetiapine [Seroquel] 50 mg tablet 50 mg PO QHS Qty: 90 RF: 0 Spiriva with HandiHaler 18 mcg capsule, w/inhalation device 1 cap Inhalation DAILY Qty: 90 RF: 0 hydroxyzine HCl 25 mg tablet 25 mg PO TID PRNRF: 0 albuterol sulfate [ProAir HFA] 90 mcg/actuation HFA aerosol inhaler 2 puff Inhalation Q4H PRN PRN (Reason: Shortness Of Breath) Qty: 1 RF: 1 multivitamin tablet 1 tab PO QAM Qty: 90 RF: 3 thiamine HCl (vitamin B1) 100 mg tablet 100 mg PO DAILY Qty: 90 RF: 3 fluoxetine 20 mg tablet 20 mg PO DAILY Qty: 90 RF: 3 quetiapine [Seroquel] 25 mg tablet 25 mg PO BID Qty: 20 RF: 0 OptiChamber Advantage 1 EACH spacer 1 ea Miscellaneous DIRECTED RF: 0 albuterol sulfate 2.5 MG/3 ML solution for nebulization 2.5 mg Inhalation Q4H PRN PRN (Reason: Shortness Of Breath) 30 Days RF: 0 guaifenesin [Mucus Relief] 400 mg Tablet 400 mg PO Q4H PRNRF: 0 pantoprazole 40 mg tablet,delayed release (DR/EC) 40 mg PO DAILY Qty: 90 RF: 3 Symbicort 10.2 GM HFA aerosol inhaler 10.2 gm Inhalation BID Qty: 3 RF: 3 calcium carbonate [Tums] 300 mg (750 mg) tablet,chewable 300 mg PO BID PRN (Reason: dyspepsia) Qty: 20 RF: 0 Cepacol Sorethroat-Cough 5-7.5 mg lozenge 1 avery PO Q4H PRN (Reason: sore throat) Qty: 16 RF: 0 meclizine 25 mg tablet 25 mg PO TID PRN (Reason: dizziness) Qty: 20 RF: 0 Discharge Instructions Instructions: Dizziness (ED) Additional Instructions: Please take the medication as directed. If you notice any worsening of your symptoms, or any new symptoms such as vomiting, diarrhea, fever, chills, shortness of breath, chest pain, numbness, weakness, or fainting , please return immediately to the emergency department for reevaluation. Please follow up with your primary care provider as soon as possible for reassessment and reevaluation. As always, it was a pleasure participating in your medical care today. Referrals: Deborah Chow MD [Primary Care Provider] - Medical Decision Making This is a 63-year-old male who is well-known to the ED, who presents today for dizziness. It occurred while he was upstairs visiting his mother in the hospital. He does have chronic blurry vision in his left eye secondary to a chronic cataract. He states that this is otherwise unchanged. Physical exam demonstrates no neurologic deficits. The patient ambulates well without any difficulty whatsoever. He shows no signs of gait ataxia, or cerebellar deficits or neurologic deficits. He does have mild horizontal nystagmus suggestive of mild peripheral vertigo. Notably worsened with the head impulse test. CT scan was ordered out of concern for unlikely central etiology, CT scan per virtual radiology demonstrates no acute process or evidence of infarct. Patient was given meclizine and had near complete resolution of his symptoms. Patient will be discharged home close follow-up with his PCP. We discussed red flags which to return. Signs and symptoms are clinically consistent at this time with peripheral vertigo and consistent with cerebellar stroke, dehydration, syncope or EKG abnormality. I have extensively reviewed the treatment plan and discharge instructions with the patient. I have addressed all patient concerns at this time. The patient was made aware of what symptoms to monitor for that would warrant a return to the emergency department. Discussed the plan with the patient, they demonstrate verbal understanding and agreement with our assessment and plan at this time. EKG 11: 34 Rate 71, intervals normal, atrial rhythm, no significant ST elevations or depressions. There is some artifact ST change these are otherwise inconsistent and benign. No significant T wave abnormalities except for in aVL. No Q waves, no evidence of Brugada, epsilon waves, or WPW. Findings: Brain: No acute intracranial hemorrhage. There is mild diffuse heterogeneity of the white matter attenuation, consistent with chronic white matter ischemic changes. Mild cerebral atrophy Ventricles: Normal. No ventriculomegaly. Bones/joints: Unremarkable. No acute fracture. Sinuses: Mild opacities in the ethmoid sinuses may represent mild sinusitis Mastoid air cells: Visualized mastoid air cells are well aerated. No mastoid effusion. Soft tissues: Unremarkable. Impression: No acute intracranial hemorrhage. Dictated and Authenticated by: Damián Guevara MD. Ordering:CAITLIN Vasquez MD HPI General Date/Time Provider Initiated Documentation: 10/27/18 11:27 . HPI Narrative: This is a 63-year-old male who is well-known to the emergency department for multiple near bi-daily visits who presents today for evaluation of dizziness. The patient states that he was up seeing his mother who is currently admitted, when he felt slightly dizzy. He does have chronic blurry vision secondary to his cataracts, primarily in his left eye. He does admit to mild headache. He denies any fall, trauma, imbalance or difficulty ambulating. He denies any chest pain, shortness of breath, nausea vomiting diarrhea or abdominal pain. Of note the patient was seen less than 24 hours ago here in the ED for symptoms of abdominal pain and questionable blood in his stools and he had a notable work-up with benign labs, negative Hemoccult, normal vital signs. His symptoms have otherwise improved. Patient has no other complaints at this time. He denies any history of stroke or STEMI. He denies any history of dizziness in the past. He denies recent surgery or IV or illicit drug use. Related Data Home Medications Medication Instructions Recorded Confirmed OptiChamber Advantage kit 10/15/17 10/27/18 albuterol sulfate 2.5 mg INHALATION Q4H PRN PRN 30 10/15/17 10/27/18 Days ml albuterol sulfate HFA 90 2 puff INHALATION Q4H PRN PRN #1 07/02/18 10/27/18 mcg/actuation aerosol inhaler inh multivitamin tablet 1 tab PO QAM #90 tab 07/02/18 10/27/18 thiamine HCl (vitamin B1) 100 mg 100 mg PO DAILY #90 tab 07/02/18 10/27/18 tablet guaifenesin [Mucus Relief] 400 mg PO Q4H PRN 09/09/18 10/27/18 Symbicort 10.2 gm INHALATION BID #3 inhaler 09/21/18 10/27/18 pantoprazole 40 mg PO DAILY #90 tab 09/21/18 10/27/18 hydroxyzine HCl 25 mg tablet 25 mg PO TID PRN tab 09/26/18 10/27/18 quetiapine 50 mg tablet 50 mg PO QHS #90 tab 09/26/18 10/27/18 tiotropium bromide 18 mcg capsule 1 cap INHALATION DAILY #90 inh 09/26/18 10/27/18 with inhalation device fluoxetine 20 mg tablet 20 mg PO DAILY #90 tab-cap 10/02/18 10/27/18 calcium carbonate [Tums] 300 mg PO BID PRN #20 tab 10/14/18 10/27/18 quetiapine 25 mg tablet 25 mg PO BID #20 tab 10/17/18 10/27/18 Cepacol Sorethroat-Cough 1 avery PO Q4H PRN #16 each 10/21/18 10/27/18 meclizine 25 mg PO TID PRN #20 tab 10/23/18 10/27/18 meclizine 25 mg PO TID #14 tab 10/27/18 Previous Rx's Medication Instructions Recorded [facility] Advantage kit 10/15/17 albuterol sulfate 2.5 mg INHALATION Q4H PRN PRN 30 10/15/17 Days ml albuterol sulfate HFA 90 2 puff INHALATION Q4H PRN PRN #1 07/02/18 mcg/actuation aerosol inhaler inh multivitamin tablet 1 tab PO QAM #90 tab 07/02/18 thiamine HCl (vitamin B1) 100 mg 100 mg PO DAILY #90 tab 07/02/18 tablet Symbicort 10.2 gm INHALATION BID #3 inhaler 09/21/18 pantoprazole 40 mg PO DAILY #90 tab 09/21/18 quetiapine 50 mg tablet 50 mg PO QHS #90 tab 09/26/18 tiotropium bromide 18 mcg capsule 1 cap INHALATION DAILY #90 inh 09/26/18 with inhalation device fluoxetine 20 mg tablet 20 mg PO DAILY #90 tab-cap 10/02/18 calcium carbonate [Tums] 300 mg PO BID PRN #20 tab 10/14/18 quetiapine 25 mg tablet 25 mg PO BID #20 tab 10/17/18 Cepacol Sorethroat-Cough 1 avery PO Q4H PRN #16 each 10/21/18 meclizine 25 mg PO TID PRN #20 tab 10/23/18 meclizine 25 mg PO TID #14 tab 10/27/18 Allergies Allergy/AdvReac Type Severity Reaction Status Date / Time No Known Allergies Allergy Verified 10/27/18 11:35 General Stated Complaint: Dizzy/Sync FLASH: 3 Review of Systems Review of Systems All systems reviewed & are unremarkable except as noted in HPI and below PFSH Social History Smoking/Tobacco Use Status: Former Tobacco Use Tobacco: How many years used: 30 Alcohol Intake: former Drug use: Never 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 Adopted: No Foster care: No Household members: family Housing: house Number of Children: 0 Communication Needs: None current occupation: not working Current gender identity: male What type of physical activity do you participate in: none and other Details: started lifting weights Frequency: daily Seatbelt use: always Drive intox or ride w/intox van cdl 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 Exam Narrative Exam Narrative: 1.Const: Well-nourished, Well-developed, appearing stated age 2.Eyes: PERRL, no conjunctival injection, and symmetrical lids. 3.ENT: Atraumatic external nose and ears. Moist MM. Neck: Symmetric, trachea midline, No thyromegaly. Patient demonstrates good movement of cervical neck. There is no nuchal rigidity, no nuchal tenderness. Patient is able to flex the neck without any difficulty or significant pain. Negative Kernig's and Brudzinski sign. 4.CVS: +S1/S2, No murmurs or gallops. Peripheral pulses 2+ and equal in all extremities. Brisk capillary refill in all extremities. 5.RESP: Unlabored respiratory effort. Clear to auscultation bilaterally. No wheezes rales or rhonchi 6.GI: Soft, Nontender/Nondistended, No hepatosplenomegaly. No guarding or rebound. 7.MSK: Normocephalic/Atraumatic, Extremities w/o deformity or ttp No cyanosis or clubbing, Normal movement of all extremities 8.Skin: Warm, Dry. No rashes or lesions. 9.Neuro: lubrication servicer II-XII grossly intact. Sensation grossly intact, no focal neurologic deficits. All 6 cardinal planes of vision are fully intact. No evidence of rotatory or vertical nystagmus. The patient demonstrated a normal [id number], good dexterity. There was no evidence of dysdiadochokinesia. Patient was able to ambulate without difficulty. There was no wide-based gait. Romberg, and [id number] are both normal on testing. Sensation was intact bilaterally as well as muscle strength bilaterally for all extremities. Patient was able to verbalize butter cup with no slurring, or miss pronunciation. Cerebellar function testing is normal. The patient demonstrates a normal hints exam with no findings concerning for a central event. No vertical nystagmus. The patient does have horizontal nystagmus which is mild. The head impulse test is negative for any significant central abnormality. It is positive with movement to the left, suggesting a peripheral etiology. Normal test of skew. No suggestion of a central cerebellar event. 10.Psych: (AAO) x3. Appropriate mood and affect Course Vital Signs Temperature 36.7 C 10/27/18 11:31 Pulse 70 10/27/18 11:31 Respiratory Rate 16 10/27/18 11:31 Blood Pressure 139/81 10/27/18 11:31 Pulse Oximetry 97 10/27/18 11:31 Temperature 36.7 C 10/27/18 11:31 Temperature Source Skin 10/27/18 11:31 Pulse 70 10/27/18 11:31 Respiratory Rate 16 10/27/18 11:31 Respiratory Effort Non-Labored 10/27/18 11:33 Blood Pressure 139/81 10/27/18 11:31 Pulse Oximetry 97 10/27/18 11:31 Pain Level 8 10/27/18 11:31
[2018-10-27] MEDS: Meclizine 25 MG TAB PO (11:42)
[2018-10-27] MEDS: Acetaminophen 500 MG TAB 1000 MG PO (11:43)
--- NOTE | 2018-10-27 12:45 | DI.VRAD_ITS ---
EXAM: CT Head Without Contrast EXAM DATE/TIME: 10/27/2018 11:39 AM CLINICAL HISTORY: 63 years old, male; Signs and symptoms; Dizziness TECHNIQUE: Imaging protocol: Axial computed tomography images of the head without contrast. Coronal and sagittal reformatted images were created and reviewed. COMPARISON: No relevant prior studies available. FINDINGS: Brain: No acute intracranial hemorrhage. There is mild diffuse heterogeneity of the white matter attenuation, consistent with chronic white matter ischemic changes. Mild cerebral atrophy Ventricles: Normal. No ventriculomegaly. Bones/joints: Unremarkable. No acute fracture. Sinuses: Mild opacities in the ethmoid sinuses may represent mild sinusitis Mastoid air cells: Visualized mastoid air cells are well aerated. No mastoid effusion. Soft tissues: Unremarkable. IMPRESSION: No acute intracranial hemorrhage. Dictated and Authenticated by: Damián Guevara MD. Ordering:CAITLIN Vasquez MD
== END 2018-10-27 13:52 | disposition home or self-care (01) ==
PROVIDERS: Emergency Provider Student in an Organized Health Care Education/Training Program; PCP Internal Medicine
DX: R42 Dizziness and giddiness (principal); R51 Headache; H55.09 Other forms of nystagmus; H81.399 Other peripheral vertigo, unspecified ear; F43.22 Adjustment disorder with anxiety; J44.9 Chronic obstructive pulmonary disease, unspecified; Z87.891 Personal history of nicotine dependence
CPT/HCPCS: 36416; 82962; 93005; 99283; 99284; 70450; 93010

== ENCOUNTER 2018-10-27 20:00 | Emergency (ER) | payer MEDICAID, SELFPAY ==
[2018-10-27 20:18] VITALS: BP 149/89; PULSE 71; RESP 16; TEMP 37; O2SAT 97
--- NOTE | 2018-10-27 20:22 | W.ED.GENAD ---
Discharge Plan Disposition Patient Disposition: HOME Condition: Improving Discharge Details Chief Complaint: GenMedical Clinical Impression: Peripheral vertigo Primary Care Provider: Deborah Chow ED Provider: Ean Lyons Home Meds and New Rx's Prescriptions: Continued quetiapine [Seroquel] 50 mg tablet 50 mg PO QHS Qty: 90 RF: 0 Spiriva with HandiHaler 18 mcg capsule, w/inhalation device 1 cap Inhalation DAILY Qty: 90 RF: 0 hydroxyzine HCl 25 mg tablet 25 mg PO TID PRNRF: 0 albuterol sulfate [ProAir HFA] 90 mcg/actuation HFA aerosol inhaler 2 puff Inhalation Q4H PRN PRN (Reason: Shortness Of Breath) Qty: 1 RF: 1 multivitamin tablet 1 tab PO QAM Qty: 90 RF: 3 thiamine HCl (vitamin B1) 100 mg tablet 100 mg PO DAILY Qty: 90 RF: 3 fluoxetine 20 mg tablet 20 mg PO DAILY Qty: 90 RF: 3 quetiapine [Seroquel] 25 mg tablet 25 mg PO BID Qty: 20 RF: 0 OptiChamber Advantage 1 EACH spacer 1 ea Miscellaneous DIRECTED RF: 0 albuterol sulfate 2.5 MG/3 ML solution for nebulization 2.5 mg Inhalation Q4H PRN PRN (Reason: Shortness Of Breath) 30 Days RF: 0 guaifenesin [Mucus Relief] 400 mg Tablet 400 mg PO Q4H PRNRF: 0 pantoprazole 40 mg tablet,delayed release (DR/EC) 40 mg PO DAILY Qty: 90 RF: 3 Symbicort 10.2 GM HFA aerosol inhaler 10.2 gm Inhalation BID Qty: 3 RF: 3 calcium carbonate [Tums] 300 mg (750 mg) tablet,chewable 300 mg PO BID PRN (Reason: dyspepsia) Qty: 20 RF: 0 Cepacol Sorethroat-Cough 5-7.5 mg lozenge 1 avery PO Q4H PRN (Reason: sore throat) Qty: 16 RF: 0 meclizine 25 mg tablet 25 mg PO TID PRN (Reason: dizziness) Qty: 20 RF: 0 meclizine 25 mg tablet 25 mg PO TID Qty: 14 RF: 0 Discharge Instructions Additional Instructions: Continue Meclizine up to 4 times daily if needed. Take Benadryl 50mg tonight at bedtime. Our care management team will arrange an outpatient followup for you. Medical Decision Making 63-year-old male well-known to the emergency department for numerous visits including one yesterday and earlier today. During those visits he had unremarkable laboratories and a negative head CT this morning. He said mild persistent dizziness that is fairly subjective in description. No falls or headache. No fever. He does admit to ongoing anxiety likely due to his mother's hospitalization. Unremarkable vital signs and exam. I think he does have some mild vertigo. He may continue the previous prescribed meclizine. We will add 50 mg of Benadryl tonight for bedtime. He stable for discharge. We will ask her management to arrange a follow-up for him. HPI General Mode of arrival: ambulatory. Date/Time Provider Initiated Documentation: 10/27/18 20:08. Limitations to Documentation: no limitations. Information obtained by: patient. History of Present Illness 63 year old M presents to the emergency department with the chief complaint of Mild dizziness, no fall, no headache, described as moderate, Quality is described as dull and constant, and is localized to the head. Patient reports no radiation. Patient started experiencing this hour(s) and it has been constant. No relieving factors improve symptom(s), No exacerbating factors reported . Patient did receive the following treatments prior to arrival, other (Meclizine) Related Data Home Medications Medication Instructions Recorded [facility] 10/15/17 10/27/18 albuterol sulfate 2.5 mg INHALATION Q4H PRN PRN 30 10/15/17 10/27/18 Days ml albuterol sulfate HFA 90 2 puff INHALATION Q4H PRN PRN #1 07/02/18 10/27/18 mcg/actuation aerosol inhaler inh multivitamin tablet 1 tab PO QAM #90 tab 07/02/18 10/27/18 thiamine HCl (vitamin B1) 100 mg 100 mg PO DAILY #90 tab 07/02/18 10/27/18 tablet guaifenesin [Mucus Relief] 400 mg PO Q4H PRN 09/09/18 10/27/18 Symbicort 10.2 gm INHALATION BID #3 inhaler 09/21/18 10/27/18 pantoprazole 40 mg PO DAILY #90 tab 09/21/18 10/27/18 hydroxyzine HCl 25 mg tablet 25 mg PO TID PRN tab 09/26/18 10/27/18 quetiapine 50 mg tablet 50 mg PO QHS #90 tab 09/26/18 10/27/18 tiotropium bromide 18 mcg capsule 1 cap INHALATION DAILY #90 inh 09/26/18 10/27/18 with inhalation device fluoxetine 20 mg tablet 20 mg PO DAILY #90 tab-cap 10/02/18 10/27/18 calcium carbonate [Tums] 300 mg PO BID PRN #20 tab 10/14/18 10/27/18 quetiapine 25 mg tablet 25 mg PO BID #20 tab 10/17/18 10/27/18 Cepacol Sorethroat-Cough 1 avery PO Q4H PRN #16 each 10/21/18 10/27/18 meclizine 25 mg PO TID PRN #20 tab 10/23/18 10/27/18 meclizine 25 mg PO TID #14 tab 10/27/18 Previous Rx's Medication Instructions Recorded [facility] Ad[facility] kit 10/15/17 albuterol sulfate 2.5 mg INHALATION Q4H PRN PRN 30 10/15/17 Days ml albuterol sulfate HFA 90 2 puff INHALATION Q4H PRN PRN #1 07/02/18 mcg/actuation aerosol inhaler inh multivitamin tablet 1 tab PO QAM #90 tab 07/02/18 thiamine HCl (vitamin B1) 100 mg 100 mg PO DAILY #90 tab 07/02/18 tablet Symbicort 10.2 gm INHALATION BID #3 inhaler 09/21/18 pantoprazole 40 mg PO DAILY #90 tab 09/21/18 quetiapine 50 mg tablet 50 mg PO QHS #90 tab 09/26/18 tiotropium bromide 18 mcg capsule 1 cap INHALATION DAILY #90 inh 09/26/18 with inhalation device fluoxetine 20 mg tablet 20 mg PO DAILY #90 tab-cap 10/02/18 calcium carbonate [Tums] 300 mg PO BID PRN #20 tab 10/14/18 quetiapine 25 mg tablet 25 mg PO BID #20 tab 10/17/18 Cepacol Sorethroat-Cough 1 avery PO Q4H PRN #16 each 10/21/18 meclizine 25 mg PO TID PRN #20 tab 10/23/18 meclizine 25 mg PO TID #14 tab 10/27/18 Allergies Allergy/AdvReac Type Severity Reaction Status Date / Time No Known Allergies Allergy Verified 10/27/18 11:35 General Stated Complaint: GenMedical FLASH: 5 Review of Systems Review of Systems No fever. No production of sputum. Mild shortness of breath and anxiety. 8 systems reviewed and otherwise - COUNT INCLUDES [facility] Medical History COPD (chronic obstructive pulmonary disease) (Chronic) Adjustment disorder with anxiety (Chronic) Alcohol abuse (Chronic) Anxiety (Chronic) Dyspepsia (Chronic) Malignant neoplasm of right lung (Chronic) Tubular adenoma of colon (Inactive) Surgical History History of lung biopsy (Resolved) History of surgery on upper extremity (Resolved) colonoscopy (Inactive 01/19/15) Family History Father Essential hypertension Hyperlipidemia Paternal Uncle Heart disease Stroke Cerebral hemorrhage Hypertension Brother Cancer Social History Smoking/Tobacco Use Status: Former Tobacco Use Tobacco: How many years used: 30 Alcohol Intake: former Drug use: Never 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 Adopted: No Foster care: No Household members: family Housing: house Number of Children: 0 Communication Needs: None current occupation: not working Current gender identity: male What type of physical activity do you participate in: none and other Details: started lifting weights Frequency: daily Seatbelt use: always Drive intox or ride w/intox sulky 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 Exam Narrative Exam Narrative: GEN: awake, alert, oriented 3. Pleasant, well groomed, interactive. HEAD: Normocephalic, atraumatic ENT: Mucous membranes moist, oropharynx unremarkable, External ear exam unremarkable EYES: PERRL, EOMI NECK: Full ROM, no URSZULA, no menigismus CHEST/RESP: Nontender, clear to auscultation bilateral, no wheeze/rhonchi/rales CARDIOVASCULAR: RRR, no murmur, rub jeannie. 2+ Rad pulse bilateral ABDOMEN: Soft, nontender, no mass. +Bowel sounds EXT: Full ROM, no edema, no rash Neuro: Grossly normal neurologic exam, conversant, interactive. Cranial nerves II through XII intact. Finger-nose intact. No nystagmus. Psych: Speech fluent, thoughts congruent, affect anxious Course Vital Signs Temperature 37.0 C 10/27/18 20:18 Pulse 71 10/27/18 20:18 Respiratory Rate 16 10/27/18 20:18 Blood Pressure 149/89 H 10/27/18 20:18 Pulse Oximetry 97 10/27/18 20:18 Temperature 37.0 C 10/27/18 20:18 Temperature Source Temporal Artery Scan 10/27/18 20:18 Pulse 71 10/27/18 20:18 Respiratory Rate 16 10/27/18 20:18 Respiratory Effort 10/27/18 20:18 Blood Pressure 149/89 H 10/27/18 20:18 Blood Pressure Position Sitting 10/27/18 20:18 Pulse Oximetry 97 10/27/18 20:18 Oxygen Delivery Method Room Air 10/27/18 20:18 Oxygen Flow Rate 0 10/27/18 20:18
[2018-10-27] MEDS: diphenhydrAMINE 25 MG CAP 50 MG PO (20:45)
== END 2018-10-27 20:46 | disposition home or self-care (01) ==
LOC: ER 20:25
PROVIDERS: Emergency Provider Emergency Medicine; PCP Internal Medicine
DX: H81.399 Other peripheral vertigo, unspecified ear (principal); F43.22 Adjustment disorder with anxiety; J44.9 Chronic obstructive pulmonary disease, unspecified; Z87.891 Personal history of nicotine dependence
CPT/HCPCS: 99283

== ENCOUNTER 2018-10-28 18:35 | Emergency (ER) | payer MEDICAID, SELFPAY ==
[2018-10-28 18:54] VITALS: BP 138/85; PULSE 77; RESP 22; TEMP 37.1; O2SAT 98
[2018-10-28 18:58] VITALS: RESP 22
--- NOTE | 2018-10-28 19:01 | W.ED.GENAD ---
Discharge Plan Disposition Patient Disposition: HOME Condition: Good Discharge Details Chief Complaint: SOB Clinical Impression: Adjustment disorder with anxiety, Muscle strain Primary Care Provider: Deborah Chow ED Provider: Pedro Nichole Home Meds and New Rx's Prescriptions: New diphenhydramine HCl [Benadryl] 25 MG capsule 25 mg PO Q6H Qty: 10 RF: 0 No Action quetiapine [Seroquel] 50 mg tablet 50 mg PO QHS Qty: 90 RF: 0 Spiriva with HandiHaler 18 mcg capsule, w/inhalation device 1 cap Inhalation DAILY Qty: 90 RF: 0 hydroxyzine HCl 25 mg tablet 25 mg PO TID PRNRF: 0 albuterol sulfate [ProAir HFA] 90 mcg/actuation HFA aerosol inhaler 2 puff Inhalation Q4H PRN PRN (Reason: Shortness Of Breath) Qty: 1 RF: 1 multivitamin tablet 1 tab PO QAM Qty: 90 RF: 3 thiamine HCl (vitamin B1) 100 mg tablet 100 mg PO DAILY Qty: 90 RF: 3 fluoxetine 20 mg tablet 20 mg PO DAILY Qty: 90 RF: 3 quetiapine [Seroquel] 25 mg tablet 25 mg PO BID Qty: 20 RF: 0 OptiChamber Advantage 1 EACH spacer 1 ea Miscellaneous DIRECTED RF: 0 albuterol sulfate 2.5 MG/3 ML solution for nebulization 2.5 mg Inhalation Q4H PRN PRN (Reason: Shortness Of Breath) 30 Days RF: 0 guaifenesin [Mucus Relief] 400 mg Tablet 400 mg PO Q4H PRNRF: 0 pantoprazole 40 mg tablet,delayed release (DR/EC) 40 mg PO DAILY Qty: 90 RF: 3 Symbicort 10.2 GM HFA aerosol inhaler 10.2 gm Inhalation BID Qty: 3 RF: 3 Cepacol Sorethroat-Cough 5-7.5 mg lozenge 1 avery PO Q4H PRN (Reason: sore throat) Qty: 16 RF: 0 meclizine 25 mg tablet 25 mg PO TID PRN (Reason: dizziness) Qty: 20 RF: 0 meclizine 25 mg tablet 25 mg PO TID Qty: 14 RF: 0 Discharge Instructions Instructions: Muscle Strain (ED) Additional Instructions: Please take the Benadryl only as needed. Please use a heating pad as needed for your back if you notice any worsening of your symptoms, or any new symptoms such as vomiting, diarrhea, fever, chills, shortness of breath, chest pain, numbness, weakness, or fainting , please return immediately to the emergency department for reevaluation. Please follow up with your primary care provider as soon as possible for reassessment and reevaluation. As always, it was a pleasure participating in your medical care today. Referrals: Deborah Chow MD [Primary Care Provider] - Discharge Data Discharge Date/Time-TO BE ENTERED AT DEPARTURE: 10/28/18 19:14 Medical Decision Making This is a 63-year-old male who is well-known to the ED who has had multiple visits over the last month various unrelated causes, stopped in eating related to anxiety. He has had multiple work-ups, multiple imaging evaluations and multiple cardiac and abdominal assessments. Presents today requesting Benadryl. He states that when I was here last night they gave me some Benadryl to go home with, I slept great and would like some more of that. At this time he denies any other concerning red flag complaints of chest pain, shortness of breath, vomiting, diarrhea, fever or chills. He does admit to mild flank achiness. No abdominal tenderness. No urinary complaints. Signs and symptoms are inconsistent with ACS, severe pulmonary disorder, acute surgical abdominal pathology. Vital signs are notably reassuring. Patient will be given a prescription for Benadryl as requested over I did encourage him to purchase these [id number]. Discussed red flags for which to return, the importance of PCP follow-up. I have extensively reviewed the treatment plan and discharge instructions with the patient. I have addressed all patient concerns at this time. The patient was made aware of what symptoms to monitor for that would warrant a return to the emergency department. Discussed the plan with the patient, they demonstrate verbal understanding and agreement with our assessment and plan at this time. HPI General Date/Time Provider Initiated Documentation: 10/28/18 18:59. HPI Narrative: This is a 63-year-old male who is well-known to the emergency department with a past medical history of anxiety, COPD, and reflux. He presents today requesting Benadryl. He has been seen multiple times over the last week for various unrelated complaints. He has had multiple recent work-ups, including benign laboratory work-ups, cardiac monitoring, and CT imaging. He presents today stating that last night when he was here last he was given Benadryl and slept great and he states that he would like some Benadryl again for that. Currently at this time to me he is denying any chest pain, shortness of breath, abdominal pain, arm neck or shoulder pain, chest pressure, dizziness, numbness tingling or weakness. He does admit to some mild flank achiness, states this is been chronic for quite some time. He denies any dysuria hematuria increased urinary frequency or other complaint. No other modifying factors. Related Data Home Medications Medication Instructions Recorded Confirmed [employer] Advantage kit 10/15/17 10/27/18 albuterol sulfate 2.5 mg INHALATION Q4H PRN PRN 30 10/15/17 10/27/18 Days ml albuterol sulfate HFA 90 2 puff INHALATION Q4H PRN PRN #1 07/02/18 10/27/18 mcg/actuation aerosol inhaler inh multivitamin tablet 1 tab PO QAM #90 tab 07/02/18 10/27/18 thiamine HCl (vitamin B1) 100 mg 100 mg PO DAILY #90 tab 07/02/18 10/27/18 tablet guaifenesin [Mucus Relief] 400 mg PO Q4H PRN 09/09/18 10/27/18 Symbicort 10.2 gm INHALATION BID #3 inhaler 09/21/18 10/27/18 pantoprazole 40 mg PO DAILY #90 tab 09/21/18 10/27/18 hydroxyzine HCl 25 mg tablet 25 mg PO TID PRN tab 09/26/18 10/27/18 quetiapine 50 mg tablet 50 mg PO QHS #90 tab 09/26/18 10/27/18 tiotropium bromide 18 mcg capsule 1 cap INHALATION DAILY #90 inh 09/26/18 10/27/18 with inhalation device fluoxetine 20 mg tablet 20 mg PO DAILY #90 tab-cap 10/02/18 10/27/18 quetiapine 25 mg tablet 25 mg PO BID #20 tab 10/17/18 10/27/18 Cepacol Sorethroat-Cough 1 avery PO Q4H PRN #16 each 10/21/18 10/27/18 meclizine 25 mg PO TID PRN #20 tab 10/23/18 10/27/18 meclizine 25 mg PO TID #14 tab 10/27/18 diphenhydramine HCl [Benadryl] 25 mg PO Q6H #10 cap 10/28/18 Previous Rx's Medication Instructions Recorded OptiChamber Advantage kit 10/15/17 albuterol sulfate 2.5 mg INHALATION Q4H PRN PRN 30 10/15/17 Days ml albuterol sulfate HFA 90 2 puff INHALATION Q4H PRN PRN #1 07/02/18 mcg/actuation aerosol inhaler inh multivitamin tablet 1 tab PO QAM #90 tab 07/02/18 thiamine HCl (vitamin B1) 100 mg 100 mg PO DAILY #90 tab 07/02/18 tablet Symbicort 10.2 gm INHALATION BID #3 inhaler 09/21/18 pantoprazole 40 mg PO DAILY #90 tab 09/21/18 quetiapine 50 mg tablet 50 mg PO QHS #90 tab 09/26/18 tiotropium bromide 18 mcg capsule 1 cap INHALATION DAILY #90 inh 09/26/18 with inhalation device fluoxetine 20 mg tablet 20 mg PO DAILY #90 tab-cap 10/02/18 quetiapine 25 mg tablet 25 mg PO BID #20 tab 10/17/18 Cepacol Sorethroat-Cough 1 avery PO Q4H PRN #16 each 10/21/18 meclizine 25 mg PO TID PRN #20 tab 10/23/18 meclizine 25 mg PO TID #14 tab 10/27/18 diphenhydramine HCl [Benadryl] 25 mg PO Q6H #10 cap 10/28/18 Allergies Allergy/AdvReac Type Severity Reaction Status Date / Time No Known Allergies Allergy Verified 10/27/18 11:35 General Stated Complaint: SOB FLASH: 4 Review of Systems Review of Systems All systems reviewed & are unremarkable except as noted in HPI and below PFSH Social History Smoking/Tobacco Use Status: Former Tobacco Use Tobacco: How many years used: 30 Alcohol Intake: former Drug use: Never 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 Adopted: No Foster care: No Household members: family Housing: house Number of Children: 0 Communication Needs: None current occupation: not working Current gender identity: male What type of physical activity do you participate in: none and other Details: started lifting weights Frequency: daily Seatbelt use: always 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 Exam Narrative Exam Narrative: 1.Const: Well-nourished, Well-developed, appearing stated age 2.Eyes: PERRL, no conjunctival injection, and symmetrical lids. 3.ENT: Atraumatic external nose and ears. Moist MM. Neck: Symmetric, trachea midline, No thyromegaly. 4.CVS: +S1/S2, No murmurs or gallops. Peripheral pulses 2+ and equal in all extremities. Brisk capillary refill in all extremities. 5.RESP: Unlabored respiratory effort. Clear to auscultation bilaterally. No wheezes rales or rhonchi 6.GI: Soft, Nontender/Nondistended, No hepatosplenomegaly. No guarding or rebound. No flank or CVA tenderness on percussion 7.MSK: Normocephalic/Atraumatic, Extremities w/o deformity or ttp No cyanosis or clubbing, Normal movement of all extremities 8.Skin: Warm, Dry. No rashes or lesions. 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 Sensation grossly intact, no focal neurologic deficits. 10.Psych: (AAO) x3. Appropriate mood and affect Course Vital Signs Temperature 37.1 C 10/28/18 18:54 Pulse 77 10/28/18 18:54 Respiratory Rate 22 10/28/18 18:54 Blood Pressure 138/85 10/28/18 18:54 Pulse Oximetry 98 10/28/18 18:54 Temperature 37.1 C 10/28/18 18:54 Temperature Source Temporal Artery Scan 10/28/18 18:54 Pulse 77 10/28/18 18:54 Respiratory Rate 22 10/28/18 18:58 Respiratory Effort 10/28/18 18:58 Respiratory Depth Normal 10/28/18 18:58 Respiratory Pattern Normal 10/28/18 18:58 Blood Pressure 138/85 10/28/18 18:54 Blood Pressure Position Supine 10/28/18 18:54 Pulse Oximetry 98 10/28/18 18:54 Oxygen Delivery Method Room Air 10/28/18 18:54 Oxygen Flow Rate 0 10/28/18 18:54 Pain Level 10 10/28/18 18:54
== END 2018-10-28 19:14 | disposition home or self-care (01) ==
LOC: ER 19:04
PROVIDERS: Emergency Provider Student in an Organized Health Care Education/Training Program; PCP Internal Medicine
DX: F43.22 Adjustment disorder with anxiety (principal); S39.012A Strain of muscle, fascia and tendon of lower back, initial encounter; X58.XXXA Exposure to other specified factors, initial encounter; J44.9 Chronic obstructive pulmonary disease, unspecified; Z87.891 Personal history of nicotine dependence
CPT/HCPCS: 99283

== ENCOUNTER 2018-10-29 18:23 | Emergency (ER) | payer MEDICAID, SELFPAY ==
[2018-10-29 18:30] VITALS: BP 145/90; PULSE 93; RESP 16; TEMP 36.7; O2SAT 97
--- NOTE | 2018-10-29 18:48 | W.ED.GENAD ---
Discharge Plan Disposition Patient Disposition: HOME Condition: Stable Discharge Details Chief Complaint: GenMedical Clinical Impression: Anxiety Primary Care Provider: Deborah Chow ED Provider: Radha Lizarraga Home Meds and New Rx's Prescriptions: Continued quetiapine [Seroquel] 50 mg tablet 50 mg PO QHS Qty: 90 RF: 0 Spiriva with HandiHaler 18 mcg capsule, w/inhalation device 1 cap Inhalation DAILY Qty: 90 RF: 0 hydroxyzine HCl 25 mg tablet 25 mg PO TID PRNRF: 0 albuterol sulfate [ProAir HFA] 90 mcg/actuation HFA aerosol inhaler 2 puff Inhalation Q4H PRN PRN (Reason: Shortness Of Breath) Qty: 1 RF: 1 multivitamin tablet 1 tab PO QAM Qty: 90 RF: 3 thiamine HCl (vitamin B1) 100 mg tablet 100 mg PO DAILY Qty: 90 RF: 3 fluoxetine 20 mg tablet 20 mg PO DAILY Qty: 90 RF: 3 quetiapine [Seroquel] 25 mg tablet 25 mg PO BID Qty: 20 RF: 0 OptiChamber Advantage 1 EACH spacer 1 ea Miscellaneous DIRECTED RF: 0 albuterol sulfate 2.5 MG/3 ML solution for nebulization 2.5 mg Inhalation Q4H PRN PRN (Reason: Shortness Of Breath) 30 Days RF: 0 guaifenesin [Mucus Relief] 400 mg Tablet 400 mg PO Q4H PRNRF: 0 diphenhydramine HCl [Benadryl] 25 MG capsule 25 mg PO Q6H Qty: 10 RF: 0 pantoprazole 40 mg tablet,delayed release (DR/EC) 40 mg PO DAILY Qty: 90 RF: 3 Symbicort 10.2 GM HFA aerosol inhaler 10.2 gm Inhalation BID Qty: 3 RF: 3 Cepacol Sorethroat-Cough 5-7.5 mg lozenge 1 avery PO Q4H PRN (Reason: sore throat) Qty: 16 RF: 0 meclizine 25 mg tablet 25 mg PO TID PRN (Reason: dizziness) Qty: 20 RF: 0 meclizine 25 mg tablet 25 mg PO TID Qty: 14 RF: 0 Discharge Instructions Instructions: Anxiety (ED), Caffeine Use (ED) Additional Instructions: Please return immediately to the emergency department if you develop any new or worsening symptoms or if you become otherwise concerned. It is extremely important that you make an appointment to be seen as soon as possible in follow-up this visit by your primary care doctor. Referrals: Deborah Chow MD [Primary Care Provider] - Medical Decision Making Iggy Urias is a 63-year-old man with a history of lung cancer, alcohol abuse, COPD presenting to the emergency department with feeling nervous and twitchy after drinking an energy drink and 2 bottles of Pepsi today. He also reports chronic generalized pain that is unchanged from baseline. On exam patient is elderly but acutely nontoxic appearing. He has a benign cardiopulmonary exam. He is walking about the emergency department without issue and his neurologic exam is grossly nonfocal. There is no appreciable tremor, muscle spasms or fasciculations. Patient has been to this emergency department 13 times since 10/15/2018. Exam/history is not consistent with sepsis, ACS, significant metabolic/lyte derangement, other acute emergent life-threatening process. Suspect anxiety. I had a lengthy discussion with patient regarding return to emergency department precautions, importance of outpatient follow-up with his PCP, and home care. Patient verbalized understanding of the plan was amenable. All questions were answered. Patient was discharged home with clear plan for outpatient follow-up. Medical Records Medical records reviewed: Yes I reviewed the patient's medical records. HPI General Mode of arrival: ambulatory. Date/Time Provider Initiated Documentation: 10/29/18 18:27. Limitations to Documentation: no limitations. Information obtained by: patient, RN notes reviewed and old records reviewed. HPI Narrative: Iggy Urias is a 63 y/o man with history of lung cancer, COPD, alcohol abuse, anxiety presenting to the emergency department with anxiety. Patient reports that he drank an energy drink and also had 2 bottles of Pepsi today. He reports that that is much more caffeine than he usually drinks. Patient reports that since having a soda and energy drink he has felt twitchy and worried. He also reports feeling dizzy, which she reports as a lightheadedness without feeling that he is going to faint, but states that he has been feeling that way for some time and it is unchanged. He reports some body aching that he states his been going on for several weeks unchanged. He denies vomiting, diarrhea, shortness of breath, fevers, rash. Has been eating and drinking as usual. Has had radiation therapy in the past for his lung cancer, not currently undergoing treatment. Related Data Home Medications Medication Instructions Recorded Confirmed [facility] 10/15/17 10/27/18 albuterol sulfate 2.5 mg INHALATION Q4H PRN PRN 30 10/15/17 10/29/18 Days ml albuterol sulfate HFA 90 2 puff INHALATION Q4H PRN PRN #1 07/02/18 10/29/18 mcg/actuation aerosol inhaler inh multivitamin tablet 1 tab PO QAM #90 tab 07/02/18 10/29/18 thiamine HCl (vitamin B1) 100 mg 100 mg PO DAILY #90 tab 07/02/18 10/29/18 tablet guaifenesin [Mucus Relief] 400 mg PO Q4H PRN 09/09/18 10/29/18 Symbicort 10.2 gm INHALATION BID #3 inhaler 09/21/18 10/29/18 pantoprazole 40 mg PO DAILY #90 tab 09/21/18 10/29/18 hydroxyzine HCl 25 mg tablet 25 mg PO TID PRN tab 09/26/18 10/29/18 quetiapine 50 mg tablet 50 mg PO QHS #90 tab 09/26/18 10/29/18 tiotropium bromide 18 mcg capsule 1 cap INHALATION DAILY #90 inh 09/26/18 10/29/18 with inhalation device fluoxetine 20 mg tablet 20 mg PO DAILY #90 tab-cap 10/02/18 10/29/18 quetiapine 25 mg tablet 25 mg PO BID #20 tab 10/17/18 10/29/18 Cepacol Sorethroat-Cough 1 avery PO Q4H PRN #16 each 10/21/18 10/29/18 meclizine 25 mg PO TID PRN #20 tab 10/23/18 10/29/18 meclizine 25 mg PO TID #14 tab 10/27/18 10/29/18 diphenhydramine HCl [Benadryl] 25 mg PO Q6H #10 cap 10/28/18 10/29/18 Previous Rx's Medication Instructions Recorded [facility] 10/15/17 albuterol sulfate 2.5 mg INHALATION Q4H PRN PRN 30 05/13/18 Days ml albuterol sulfate HFA 90 2 puff INHALATION Q4H PRN PRN #1 07/02/18 mcg/actuation aerosol inhaler inh multivitamin tablet 1 tab PO QAM #90 tab 07/02/18 thiamine HCl (vitamin B1) 100 mg 100 mg PO DAILY #90 tab 07/02/18 tablet Symbicort 10.2 gm INHALATION BID #3 inhaler 09/21/18 pantoprazole 40 mg PO DAILY #90 tab 09/21/18 quetiapine 50 mg tablet 50 mg PO QHS #90 tab 09/26/18 tiotropium bromide 18 mcg capsule 1 cap INHALATION DAILY #90 inh 09/26/18 with inhalation device fluoxetine 20 mg tablet 20 mg PO DAILY #90 tab-cap 10/02/18 quetiapine 25 mg tablet 25 mg PO BID #20 tab 10/17/18 Cepacol Sorethroat-Cough 1 avery PO Q4H PRN #16 each 10/21/18 meclizine 25 mg PO TID PRN #20 tab 10/23/18 meclizine 25 mg PO TID #14 tab 10/27/18 diphenhydramine HCl [Benadryl] 25 mg PO Q6H #10 cap 10/28/18 Allergies Allergy/AdvReac Type Severity Reaction Status Date / Time No Known Allergies Allergy Verified 10/29/18 18:34 General Stated Complaint: GenMedical FLASH: 4 Review of Systems Review of Systems Constitutional: denies fevers Eyes: denies eye pain ENT: denies facial pain, dental pain, sore throat Cardiovascular: denies chest pain, edema Respiratory: denies SOB, cough GI: denies abdominal pain, vomiting, diarrhea : denies flank pain MSK: Reports chronic back pain, neck pain, arthralgias, myalgias Skin: denies rash Neuro: denies headaches, numbness, weakness [facility] Medical History COPD (chronic obstructive pulmonary disease) (Chronic) Adjustment disorder with anxiety (Chronic) Alcohol abuse (Chronic) Anxiety (Chronic) Dyspepsia (Chronic) Malignant neoplasm of right lung (Chronic) Tubular adenoma of colon (Inactive) Social History Smoking/Tobacco Use Status: Former Tobacco Use Tobacco: How many years used: 30 Alcohol Intake: former Drug use: Never 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 Adopted: No Foster care: No Household members: family Housing: house Number of Children: 0 Communication Needs: None current occupation: not working Current gender identity: male What type of physical activity do you participate in: none and other Details: started lifting weights Frequency: daily Seatbelt use: always 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 Exam Narrative Exam Narrative: Constitutional: well and [id number], pleasant, conversing normally HENT: head atraumatic/normocephalic/normal inspection, mucous membranes moist Eyes: conjunctiva normal, sclera normal, pupils 3mm b/l Neck: no stridor, normal ROM, trachea midline Chest: normal inspection Resp: normal work of breathing, LCTAB Cardio: normal rate, normal rhythm, no murmur appreciated Back: normal inspection, no rash Skin: warm, dry, normal color, no rash Neuro: alert, not altered, grossly non-focal, normal tone Ext: no edema Psych: normal mood, normal affect, normal behavior Course Vital Signs Temperature 36.7 C 10/29/18 18:30 Pulse 93 H 10/29/18 18:30 Respiratory Rate 16 10/29/18 18:30 Blood Pressure 145/90 H 10/29/18 18:30 Pulse Oximetry 97 10/29/18 18:30 Temperature 36.7 C 10/29/18 18:30 Temperature Source Skin 10/29/18 18:30 Pulse 93 H 10/29/18 18:30 Respiratory Rate 16 10/29/18 18:30 Respiratory Effort Non-Labored 10/29/18 18:30 Blood Pressure 145/90 H 10/29/18 18:30 Blood Pressure Position Sitting 10/29/18 18:30 Pulse Oximetry 97 10/29/18 18:30 Oxygen Delivery Method Room Air 10/29/18 18:30 Oxygen Flow Rate 0 10/29/18 18:30 Pain Level 8 10/29/18 18:30
[2018-10-29 18:50] VITALS: RESP 16
--- NOTE | 2018-10-29 19:21 | ED.GENADUL_ITS ---
Discharge Plan Disposition Patient Disposition: HOME Condition: Stable Discharge Details Chief Complaint: GenMedical Clinical Impression: Anxiety Primary Care Provider: Deborah Chow ED Provider: Radha Lizarraga Home Meds and New Rx's Prescriptions: Continued quetiapine [Seroquel] 50 mg tablet 50 mg PO QHS Qty: 90 RF: 0 Spiriva with HandiHaler 18 mcg capsule, w/inhalation device 1 cap Inhalation DAILY Qty: 90 RF: 0 hydroxyzine HCl 25 mg tablet 25 mg PO TID PRNRF: 0 albuterol sulfate [ProAir HFA] 90 mcg/actuation HFA aerosol inhaler 2 puff Inhalation Q4H PRN PRN (Reason: Shortness Of Breath) Qty: 1 RF: 1 multivitamin tablet 1 tab PO QAM Qty: 90 RF: 3 thiamine HCl (vitamin B1) 100 mg tablet 100 mg PO DAILY Qty: 90 RF: 3 fluoxetine 20 mg tablet 20 mg PO DAILY Qty: 90 RF: 3 quetiapine [Seroquel] 25 mg tablet 25 mg PO BID Qty: 20 RF: 0 OptiChamber Advantage 1 EACH spacer 1 ea Miscellaneous DIRECTED RF: 0 albuterol sulfate 2.5 MG/3 ML solution for nebulization 2.5 mg Inhalation Q4H PRN PRN (Reason: Shortness Of Breath) 30 Days RF: 0 guaifenesin [Mucus Relief] 400 mg Tablet 400 mg PO Q4H PRNRF: 0 diphenhydramine HCl [Benadryl] 25 MG capsule 25 mg PO Q6H Qty: 10 RF: 0 pantoprazole 40 mg tablet,delayed release (DR/EC) 40 mg PO DAILY Qty: 90 RF: 3 Symbicort 10.2 GM HFA aerosol inhaler 10.2 gm Inhalation BID Qty: 3 RF: 3 Cepacol Sorethroat-Cough 5-7.5 mg lozenge 1 avery PO Q4H PRN (Reason: sore throat) Qty: 16 RF: 0 meclizine 25 mg tablet 25 mg PO TID PRN (Reason: dizziness) Qty: 20 RF: 0 meclizine 25 mg tablet 25 mg PO TID Qty: 14 RF: 0 Discharge Instructions Instructions: Anxiety (ED), Caffeine Use (ED) Additional Instructions: Please return immediately to the emergency department if you develop any new or worsening symptoms or if you become otherwise concerned. It is extremely important that you make an appointment to be seen as soon as possible in follow- up this visit by your primary care doctor. Referrals: Deborah Chow MD [Primary Care Provider] - Medical Decision Making Iggy Urias is a 63-year-old man with a history of lung cancer, alcohol abuse, COPD presenting to the emergency department with feeling nervous and twitchy after drinking an energy drink and 2 bottles of Pepsi today. He also reports chronic generalized pain that is unchanged from baseline. On exam patient is elderly but acutely nontoxic appearing. He has a benign cardiopulmonary exam. He is walking about the emergency department without issue and his neurologic exam is grossly nonfocal. There is no appreciable tremor, muscle spasms or fasciculations. Patient has been to this emergency department 13 times since 10/15/2018. Exam/history is not consistent with sepsis, ACS, significant metabolic/lyte derangement, other acute emergent life- threatening process. Suspect anxiety. I had a lengthy discussion with patient regarding return to emergency department precautions, importance of outpatient follow-up with his PCP, and home care. Patient verbalized understanding of the plan was amenable. All questions were answered. Patient was discharged home with clear plan for outpatient follow-up. Medical Records Medical records reviewed: Yes I reviewed the patient's medical records. HPI General Mode of arrival: ambulatory . Date/Time Provider Initiated Documentation: 10/29/18 18:27 . Limitations to Documentation: no limitations . Information obtained by: patient, RN notes reviewed and old records reviewed . HPI Narrative: Iggy Urias is a 63 y/o man with history of lung cancer, COPD, alcohol abuse, anxiety presenting to the emergency department with anxiety. Patient reports that he drank an energy drink and also had 2 bottles of Pepsi today. He reports that that is much more caffeine than he usually drinks. Patient reports that since having a soda and energy drink he has felt twitchy and worried. He also reports feeling dizzy, which she reports as a lightheadedness without feeling that he is going to faint, but states that he has been feeling that way for some time and it is unchanged. He reports some body aching that he states his been going on for several weeks unchanged. He denies vomiting, diarrhea, shortness of breath, fevers, rash. Has been eating and drinking as usual. Has had radiation therapy in the past for his lung cancer, not currently undergoing treatment. Related Data Home Medications Medication Instructions Recorded Confirmed [employer] Advantage kit 10/15/17 10/27/18 albuterol sulfate 2.5 mg INHALATION Q4H PRN PRN 30 10/15/17 10/29/18 Days ml albuterol sulfate HFA 90 2 puff INHALATION Q4H PRN PRN #1 07/02/18 10/29/18 mcg/actuation aerosol inhaler inh multivitamin tablet 1 tab PO QAM #90 tab 07/02/18 10/29/18 thiamine HCl (vitamin B1) 100 mg 100 mg PO DAILY #90 tab 07/02/18 10/29/18 tablet guaifenesin [Mucus Relief] 400 mg PO Q4H PRN 09/09/18 10/29/18 Symbicort 10.2 gm INHALATION BID #3 inhaler 09/21/18 10/29/18 pantoprazole 40 mg PO DAILY #90 tab 09/21/18 10/29/18 hydroxyzine HCl 25 mg tablet 25 mg PO TID PRN tab 09/26/18 10/29/18 quetiapine 50 mg tablet 50 mg PO QHS #90 tab 09/26/18 10/29/18 tiotropium bromide 18 mcg capsule 1 cap INHALATION DAILY #90 inh 09/26/18 10/29/18 with inhalation device fluoxetine 20 mg tablet 20 mg PO DAILY #90 tab-cap 10/02/18 10/29/18 quetiapine 25 mg tablet 25 mg PO BID #20 tab 10/17/18 10/29/18 Cepacol Sorethroat-Cough 1 avery PO Q4H PRN #16 each 10/21/18 10/29/18 meclizine 25 mg PO TID PRN #20 tab 10/23/18 10/29/18 meclizine 25 mg PO TID #14 tab 10/27/18 10/29/18 diphenhydramine HCl [Benadryl] 25 mg PO Q6H #10 cap 10/28/18 10/29/18 Previous Rx's Medication Instructions Recorded [employer] [facility] Advantage kit 10/15/17 albuterol sulfate 2.5 mg INHALATION Q4H PRN PRN 30 05/13/18 Days ml albuterol sulfate HFA 90 2 puff INHALATION Q4H PRN PRN #1 07/02/18 mcg/actuation aerosol inhaler inh multivitamin tablet 1 tab PO QAM #90 tab 07/02/18 thiamine HCl (vitamin B1) 100 mg 100 mg PO DAILY #90 tab 07/02/18 tablet Symbicort 10.2 gm INHALATION BID #3 inhaler 09/21/18 pantoprazole 40 mg PO DAILY #90 tab 09/21/18 quetiapine 50 mg tablet 50 mg PO QHS #90 tab 09/26/18 tiotropium bromide 18 mcg capsule 1 cap INHALATION DAILY #90 inh 09/26/18 with inhalation device fluoxetine 20 mg tablet 20 mg PO DAILY #90 tab-cap 10/02/18 quetiapine 25 mg tablet 25 mg PO BID #20 tab 10/17/18 Cepacol Sorethroat-Cough 1 avery PO Q4H PRN #16 each 10/21/18 meclizine 25 mg PO TID PRN #20 tab 10/23/18 meclizine 25 mg PO TID #14 tab 10/27/18 diphenhydramine HCl [Benadryl] 25 mg PO Q6H #10 cap 10/28/18 Allergies Allergy/AdvReac Type Severity Reaction Status Date / Time No Known Allergies Allergy Verified 10/29/18 18:34 General Stated Complaint: GenMedical FLASH: 4 Review of Systems Review of Systems Constitutional: denies fevers Eyes: denies eye pain ENT: denies facial pain, dental pain, sore throat Cardiovascular: denies chest pain, edema Respiratory: denies SOB, cough GI: denies abdominal pain, vomiting, diarrhea : denies flank pain MSK: Reports chronic back pain, neck pain, arthralgias, myalgias Skin: denies rash Neuro: denies headaches, numbness, weakness [facility] Medical History COPD (chronic obstructive pulmonary disease) (Chronic) Adjustment disorder with anxiety (Chronic) Alcohol abuse (Chronic) Anxiety (Chronic) Dyspepsia (Chronic) Malignant neoplasm of right lung (Chronic) Tubular adenoma of colon (Inactive) Social History Smoking/Tobacco Use Status: Former Tobacco Use Tobacco: How many years used: 30 Alcohol Intake: former Drug use: Never 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 Adopted: No Foster care: No Household members: family Housing: house Number of Children: 0 Communication Needs: None current occupation: not working Current gender identity: male What type of physical activity do you participate in: none and other Details: started lifting weights Frequency: daily Seatbelt use: always Drive intox or ride w/intox p d 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 Exam Narrative Exam Narrative: Constitutional: well and [id number], pleasant, conversing normally HENT: head atraumatic/normocephalic/normal inspection, mucous membranes moist Eyes: conjunctiva normal, sclera normal, pupils 3mm b/l Neck: no stridor, normal ROM, trachea midline Chest: normal inspection Resp: normal work of breathing, LCTAB Cardio: normal rate, normal rhythm, no murmur appreciated Back: normal inspection, no rash Skin: warm, dry, normal color, no rash Neuro: alert, not altered, grossly non-focal, normal tone Ext: no edema Psych: normal mood, normal affect, normal behavior Course Vital Signs Temperature 36.7 C 10/29/18 18:30 Pulse 93 H 10/29/18 18:30 Respiratory Rate 16 10/29/18 18:30 Blood Pressure 145/90 H 10/29/18 18:30 Pulse Oximetry 97 10/29/18 18:30 Temperature 36.7 C 10/29/18 18:30 Temperature Source Skin 10/29/18 18:30 Pulse 93 H 10/29/18 18:30 Respiratory Rate 16 10/29/18 18:30 Respiratory Effort Non-Labored 10/29/18 18:30 Blood Pressure 145/90 H 10/29/18 18:30 Blood Pressure Position Sitting 10/29/18 18:30 Pulse Oximetry 97 10/29/18 18:30 Oxygen Delivery Method Room Air 10/29/18 18:30 Oxygen Flow Rate 0 10/29/18 18:30 Pain Level 8 10/29/18 18:30
--- NOTE | 2018-10-30 11:27 | PDOC.ERCMPRO ---
Care Management Progress Note 10/30-Iggy presented to the emergency room for anxiety. Frequent visits since June. Referral faxed over to [facility] for f/u. There was a team meeting last week. Please see this CM's note from that meeting.
== END 2018-10-29 19:05 | disposition home or self-care (01) ==
PROVIDERS: Emergency Provider Student in an Organized Health Care Education/Training Program; PCP Internal Medicine
DX: F41.9 Anxiety disorder, unspecified (principal); J44.9 Chronic obstructive pulmonary disease, unspecified
CPT/HCPCS: 99283

== ENCOUNTER 2018-10-30 09:38 | Outpatient (RCR) | payer MEDICAID, SELFPAY | END 2018-11-02 23:59 | disposition home or self-care (01) | LOC: PRC 09:38 | PROVIDERS: PCP Internal Medicine; Visit Provider Family Medicine | DX: Z51.89 Encounter for other specified aftercare (principal) ==

== ENCOUNTER 2018-10-31 00:58 | Emergency (ER) | payer MEDICAID, SELFPAY ==
[2018-10-31 01:00] VITALS: BP 128/75; PULSE 89; RESP 18; TEMP 36.6; O2SAT 98
--- NOTE | 2018-10-31 01:10 | W.ED.GENAD ---
Discharge Plan Disposition Patient Disposition: HOME Condition: Stable Discharge Details Chief Complaint: GenMedical Clinical Impression: Anxiety Primary Care Provider: Deborah Chow ED Provider: Mj Chen Home Meds and New Rx's Prescriptions: No Action quetiapine [Seroquel] 50 mg tablet 50 mg PO QHS Qty: 90 RF: 0 Spiriva with HandiHaler 18 mcg capsule, w/inhalation device 1 cap Inhalation DAILY Qty: 90 RF: 0 hydroxyzine HCl 25 mg tablet 25 mg PO TID PRNRF: 0 docusate sodium [Stool Softener] 100 mg tablet 100 mg PO DAILY RF: 0 albuterol sulfate [ProAir HFA] 90 mcg/actuation HFA aerosol inhaler 2 puff Inhalation Q4H PRN PRN (Reason: Shortness Of Breath) Qty: 1 RF: 1 fluoxetine 20 mg tablet 20 mg PO DAILY Qty: 90 RF: 3 quetiapine [Seroquel] 25 mg tablet 25 mg PO BID Qty: 20 RF: 0 OptiChamber Advantage 1 EACH spacer 1 ea Miscellaneous DIRECTED RF: 0 albuterol sulfate 2.5 MG/3 ML solution for nebulization 2.5 mg Inhalation Q4H PRN PRN (Reason: Shortness Of Breath) 30 Days RF: 0 guaifenesin [Mucus Relief] 400 mg Tablet 400 mg PO Q4H PRNRF: 0 diphenhydramine HCl [Benadryl] 25 MG capsule 25 mg PO Q6H Qty: 10 RF: 0 pantoprazole 40 mg tablet,delayed release (DR/EC) 40 mg PO DAILY Qty: 90 RF: 3 Symbicort 10.2 GM HFA aerosol inhaler 10.2 gm Inhalation BID Qty: 3 RF: 3 Cepacol Sorethroat-Cough 5-7.5 mg lozenge 1 avery PO Q4H PRN (Reason: sore throat) Qty: 16 RF: 0 meclizine 25 mg tablet 25 mg PO TID PRN (Reason: dizziness) Qty: 20 RF: 0 Discharge Instructions Instructions: Anxiety (ED) Medical Decision Making 63 yo male come s in after he was starting to drive down to [place], felt nervous and then had shortness of breath so came here. He does have a hx of anxiety and states he was feeling anxious about the drive down. He is currently speaking in full sentences and has clear lungs, soft abdomen, and is laughing during exam in no distress and states he feels better. Given his symptoms have resolved, has normal vitals and is similar to his prior episodes of anxiety do not feel workup indicated at this time, jocelyne d/c home and return precautions given Differential Diagnosis anxiety, copd, asthma HPI General Mode of arrival: ambulatory. Date/Time Provider Initiated Documentation: 10/31/18 01:05. Limitations to Documentation: no limitations. Information obtained by: patient. History of Present Illness 63 year old M presents to the emergency department with the chief complaint of feeling anxious, described as moderate, Patient started experiencing this hour(s) (1) and it has been now resolved. No relieving factors improve symptom(s), Patient did receive the following treatments prior to arrival, none Related Data Home Medications Medication Instructions Recorded Confirmed [employer] Advantage kit 10/15/17 10/31/18 albuterol sulfate 2.5 mg INHALATION Q4H PRN PRN 30 10/15/17 10/31/18 Days ml albuterol sulfate HFA 90 2 puff INHALATION Q4H PRN PRN #1 07/02/18 10/31/18 mcg/actuation aerosol inhaler inh guaifenesin [Mucus Relief] 400 mg PO Q4H PRN 09/09/18 10/31/18 Symbicort 10.2 gm INHALATION BID #3 inhaler 09/21/18 10/31/18 pantoprazole 40 mg PO DAILY #90 tab 09/21/18 10/31/18 hydroxyzine HCl 25 mg tablet 25 mg PO TID PRN tab 09/26/18 10/31/18 quetiapine 50 mg tablet 50 mg PO QHS #90 tab 09/26/18 10/31/18 tiotropium bromide 18 mcg capsule 1 cap INHALATION DAILY #90 inh 09/26/18 10/31/18 with inhalation device fluoxetine 20 mg tablet 20 mg PO DAILY #90 tab-cap 10/02/18 10/31/18 quetiapine 25 mg tablet 25 mg PO BID #20 tab 10/17/18 10/31/18 Cepacol Sorethroat-Cough 1 avery PO Q4H PRN #16 each 10/21/18 10/31/18 meclizine 25 mg PO TID PRN #20 tab 10/23/18 10/31/18 diphenhydramine HCl [Benadryl] 25 mg PO Q6H #10 cap 10/28/18 10/31/18 docusate sodium 100 mg tablet 100 mg PO DAILY 10/30/18 10/31/18 Previous Rx's Medication Instructions Recorded [employer] Advantage kit 10/15/17 albuterol sulfate 2.5 mg INHALATION Q4H PRN PRN 30 10/15/17 Days ml albuterol sulfate HFA 90 2 puff INHALATION Q4H PRN PRN #1 07/02/18 mcg/actuation aerosol inhaler inh Symbicort 10.2 gm INHALATION BID #3 inhaler 09/21/18 pantoprazole 40 mg PO DAILY #90 tab 09/21/18 quetiapine 50 mg tablet 50 mg PO QHS #90 tab 09/26/18 tiotropium bromide 18 mcg capsule 1 cap INHALATION DAILY #90 inh 09/26/18 with inhalation device fluoxetine 20 mg tablet 20 mg PO DAILY #90 tab-cap 10/02/18 quetiapine 25 mg tablet 25 mg PO BID #20 tab 10/17/18 Cepacol Sorethroat-Cough 1 avery PO Q4H PRN #16 each 10/21/18 meclizine 25 mg PO TID PRN #20 tab 10/23/18 diphenhydramine HCl [Benadryl] 25 mg PO Q6H #10 cap 10/28/18 Allergies Allergy/AdvReac Type Severity Reaction Status Date / Time No Known Allergies Allergy Verified 10/30/18 14:33 General Stated Complaint: GenMedical FLASH: 5 Review of Systems Review of Systems All systems reviewed & are unremarkable except as noted in HPI and below Constitutional Denies chills, Denies fever(s) and Denies weakness Gastrointestinal Denies abdominal pain, Denies nausea and Denies vomiting Musculoskeletal Denies joint swelling Integumentary/Breasts Denies rash Neurologic Denies weakness [facility] Social History Smoking/Tobacco Use Status: Former Tobacco Use Tobacco: How many years used: 30 Alcohol Intake: former Drug use: Never 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 Adopted: No Foster care: No Household members: family Housing: house Number of Children: 0 Communication Needs: None current occupation: not working Current gender identity: male What type of physical activity do you participate in: none and other Details: started lifting weights Frequency: daily Seatbelt use: always Drive intox or ride w/intox non cdl 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 Exam Const General: no acute distress Orientation: alert HENMT Head: normal to inspection Ears: external ears normal General nose exam: external nose normal Mouth: moist mucous membranes Eyes General: appearance normal, both eyes and all related structures Neck Neck: normal visual inspection Resp Effort & Inspection: normal respiratory effort and able to speak in complete sentences Cardio Rate: regular rate Skin General skin exam: no rashes or lesions noted Neuro General: alert and oriented x3 Extrem General: normal to inspection Psych Mental Status: mental status grossly normal Course Vital Signs Temperature 36.6 C 10/31/18 01:00 Pulse 89 10/31/18 01:00 Respiratory Rate 18 10/31/18 01:00 Blood Pressure 128/75 10/31/18 01:00 Pulse Oximetry 98 10/31/18 01:00 Temperature 36.6 C 10/31/18 01:00 Temperature Source Temporal Artery Scan 10/31/18 01:00 Pulse 89 10/31/18 01:00 Respiratory Rate 18 10/31/18 01:00 Respiratory Effort 10/31/18 01:00 Blood Pressure 128/75 10/31/18 01:00 Pulse Oximetry 98 10/31/18 01:00 Oxygen Delivery Method Room Air 10/31/18 01:00 Oxygen Flow Rate 0 10/31/18 01:00
--- NOTE | 2018-10-31 01:13 | ED.GENADUL_ITS ---
Discharge Plan Disposition Patient Disposition: HOME Condition: Stable Discharge Details Chief Complaint: GenMedical Clinical Impression: Anxiety Primary Care Provider: Deborah Chow ED Provider: Mj hCen Home Meds and New Rx's Prescriptions: No Action quetiapine [Seroquel] 50 mg tablet 50 mg PO QHS Qty: 90 RF: 0 Spiriva with HandiHaler 18 mcg capsule, w/inhalation device 1 cap Inhalation DAILY Qty: 90 RF: 0 hydroxyzine HCl 25 mg tablet 25 mg PO TID PRNRF: 0 docusate sodium [Stool Softener] 100 mg tablet 100 mg PO DAILY RF: 0 albuterol sulfate [ProAir HFA] 90 mcg/actuation HFA aerosol inhaler 2 puff Inhalation Q4H PRN PRN (Reason: Shortness Of Breath) Qty: 1 RF: 1 fluoxetine 20 mg tablet 20 mg PO DAILY Qty: 90 RF: 3 quetiapine [Seroquel] 25 mg tablet 25 mg PO BID Qty: 20 RF: 0 [employer]amber Advantage 1 EACH spacer 1 ea Miscellaneous DIRECTED RF: 0 albuterol sulfate 2.5 MG/3 ML solution for nebulization 2.5 mg Inhalation Q4H PRN PRN (Reason: Shortness Of Breath) 30 Days RF: 0 guaifenesin [Mucus Relief] 400 mg Tablet 400 mg PO Q4H PRNRF: 0 diphenhydramine HCl [Benadryl] 25 MG capsule 25 mg PO Q6H Qty: 10 RF: 0 pantoprazole 40 mg tablet,delayed release (DR/EC) 40 mg PO DAILY Qty: 90 RF: 3 Symbicort 10.2 GM HFA aerosol inhaler 10.2 gm Inhalation BID Qty: 3 RF: 3 Cepacol Sorethroat-Cough 5-7.5 mg lozenge 1 avery PO Q4H PRN (Reason: sore throat) Qty: 16 RF: 0 meclizine 25 mg tablet 25 mg PO TID PRN (Reason: dizziness) Qty: 20 RF: 0 Discharge Instructions Instructions: Anxiety (ED) Medical Decision Making 63 yo male come s in after he was starting to drive down to [place], felt nervous and then had shortness of breath so came here. He does have a hx of anxiety and states he was feeling anxious about the drive down. He is currently speaking in full sentences and has clear lungs, soft abdomen, and is laughing during exam in no distress and states he feels better. Given his symptoms have resolved, has normal vitals and is similar to his prior episodes of anxiety do not feel workup indicated at this time, jocelyne d/c home and return precautions given Differential Diagnosis anxiety, copd, asthma HPI General Mode of arrival: ambulatory . Date/Time Provider Initiated Documentation: 10/31/18 01:05 . Limitations to Documentation: no limitations . Information obtained by: patient . History of Present Illness 63 year old M presents to the emergency department with the chief complaint of feeling anxious, described as moderate, Patient started experiencing this hour(s) (1) and it has been now resolved. No relieving factors improve symptom(s), Patient did receive the following treatments prior to arrival, none Related Data Home Medications Medication Instructions Recorded Confirmed [employer] Advantage kit 10/15/17 10/31/18 albuterol sulfate 2.5 mg INHALATION Q4H PRN PRN 30 10/15/17 10/31/18 Days ml albuterol sulfate HFA 90 2 puff INHALATION Q4H PRN PRN #1 07/02/18 10/31/18 mcg/actuation aerosol inhaler inh guaifenesin [Mucus Relief] 400 mg PO Q4H PRN 09/09/18 10/31/18 Symbicort 10.2 gm INHALATION BID #3 inhaler 09/21/18 10/31/18 pantoprazole 40 mg PO DAILY #90 tab 09/21/18 10/31/18 hydroxyzine HCl 25 mg tablet 25 mg PO TID PRN tab 09/26/18 10/31/18 quetiapine 50 mg tablet 50 mg PO QHS #90 tab 09/26/18 10/31/18 tiotropium bromide 18 mcg capsule 1 cap INHALATION DAILY #90 inh 09/26/18 10/31/18 with inhalation device fluoxetine 20 mg tablet 20 mg PO DAILY #90 tab-cap 10/02/18 10/31/18 quetiapine 25 mg tablet 25 mg PO BID #20 tab 10/17/18 10/31/18 Cepacol Sorethroat-Cough 1 avery PO Q4H PRN #16 each 10/21/18 10/31/18 meclizine 25 mg PO TID PRN #20 tab 10/23/18 10/31/18 diphenhydramine HCl [Benadryl] 25 mg PO Q6H #10 cap 10/28/18 10/31/18 docusate sodium 100 mg tablet 100 mg PO DAILY 10/30/18 10/31/18 Previous Rx's Medication Instructions Recorded [employer]er Advantage kit 10/15/17 albuterol sulfate 2.5 mg INHALATION Q4H PRN PRN 30 10/15/17 Days ml albuterol sulfate HFA 90 2 puff INHALATION Q4H PRN PRN #1 07/02/18 mcg/actuation aerosol inhaler inh Symbicort 10.2 gm INHALATION BID #3 inhaler 09/21/18 pantoprazole 40 mg PO DAILY #90 tab 09/21/18 quetiapine 50 mg tablet 50 mg PO QHS #90 tab 09/26/18 tiotropium bromide 18 mcg capsule 1 cap INHALATION DAILY #90 inh 09/26/18 with inhalation device fluoxetine 20 mg tablet 20 mg PO DAILY #90 tab-cap 10/02/18 quetiapine 25 mg tablet 25 mg PO BID #20 tab 10/17/18 Cepacol Sorethroat-Cough 1 avery PO Q4H PRN #16 each 10/21/18 meclizine 25 mg PO TID PRN #20 tab 10/23/18 diphenhydramine HCl [Benadryl] 25 mg PO Q6H #10 cap 10/28/18 Allergies Allergy/AdvReac Type Severity Reaction Status Date / Time No Known Allergies Allergy Verified 10/30/18 14:33 General Stated Complaint: GenMedical FLASH: 5 Review of Systems Review of Systems All systems reviewed & are unremarkable except as noted in HPI and below Constitutional Denies chills, Denies fever(s) and Denies weakness Gastrointestinal Denies abdominal pain, Denies nausea and Denies vomiting Musculoskeletal Denies joint swelling Integumentary/Breasts Denies rash Neurologic Denies weakness [facility] Social History Smoking/Tobacco Use Status: Former Tobacco Use Tobacco: How many years used: 30 Alcohol Intake: former Drug use: Never 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 Adopted: No Foster care: No Household members: family Housing: house Number of Children: 0 Communication Needs: None current occupation: not working Current gender identity: male What type of physical activity do you participate in: none and other Details: started lifting weights Frequency: daily Seatbelt use: always Drive intox or ride w/intox retail delivery 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 Exam Const General: no acute distress Orientation: alert HENMT Head: normal to inspection Ears: external ears normal General nose exam: external nose normal Mouth: moist mucous membranes Eyes General: appearance normal, both eyes and all related structures Neck Neck: normal visual inspection Resp Effort & Inspection: normal respiratory effort and able to speak in complete sentences Cardio Rate: regular rate Skin General skin exam: no rashes or lesions noted Neuro General: alert and oriented x3 Extrem General: normal to inspection Psych Mental Status: mental status grossly normal Course Vital Signs Temperature 36.6 C 10/31/18 01:00 Pulse 89 10/31/18 01:00 Respiratory Rate 18 10/31/18 01:00 Blood Pressure 128/75 10/31/18 01:00 Pulse Oximetry 98 10/31/18 01:00 Temperature 36.6 C 10/31/18 01:00 Temperature Source Temporal Artery Scan 10/31/18 01:00 Pulse 89 10/31/18 01:00 Respiratory Rate 18 10/31/18 01:00 Respiratory Effort 10/31/18 01:00 Blood Pressure 128/75 10/31/18 01:00 Pulse Oximetry 98 10/31/18 01:00 Oxygen Delivery Method Room Air 10/31/18 01:00 Oxygen Flow Rate 0 10/31/18 01:00
--- NOTE | 2018-10-31 09:06 | PDOC.ERCMPRO ---
Care Management Progress Note 10/31-[facility] the [facility], Breanna, came in today with Shweta, Chronic Pick Up at [place]. Iggy is a and they are wondering if he would be willing to speak with them about treatment through the [facility]. This CM called Iggy and discussed the above. Iggy gave this CM permission to give his name, phone number, and demographics to Breanna for which was given.Breanna will reach out to Iggy.
--- NOTE | 2018-10-31 09:49 | CMPROGNOTE_ITS ---
Care Management Progress Note 10/31-[facility] from the [facility], Breanna, came in today with Shweta, Chronic Communications Systems Engineer at [place]. Iggy is a and they are wondering if he would be willing to speak with them about treatment through the [facility]. This CM called Iggy and discussed the above. Iggy gave this CM permission to give his name, phone number, and demographics to Breanna for which was given.Breanna will reach out to Iggy.
== END 2018-10-31 01:16 | disposition home or self-care (01) ==
LOC: ER 01:12
PROVIDERS: Emergency Provider Emergency Medicine; PCP Internal Medicine
DX: F41.9 Anxiety disorder, unspecified (principal); J44.9 Chronic obstructive pulmonary disease, unspecified
CPT/HCPCS: 99283

== ENCOUNTER 2018-10-31 09:44 | Emergency (ER) | payer MEDICAID, SELFPAY ==
[2018-10-31 09:48] VITALS: BP 127/81; PULSE 88; RESP 19; TEMP 36.7; O2SAT 98
[2018-10-31 09:51] VITALS: RESP 20
--- NOTE | 2018-10-31 10:06 | ED.GENADUL_ITS ---
Discharge Plan Disposition Patient Disposition: HOME Condition: Good Discharge Details Chief Complaint: GenMedical Clinical Impression: Adjustment disorder with anxiety Primary Care Provider: eDborah Chow ED Provider: Dontrell Rudolph Home Meds and New Rx's Prescriptions: Continued quetiapine [Seroquel] 50 mg tablet 50 mg PO QHS Qty: 90 RF: 0 Spiriva with HandiHaler 18 mcg capsule, w/inhalation device 1 cap Inhalation DAILY Qty: 90 RF: 0 hydroxyzine HCl 25 mg tablet 25 mg PO TID PRNRF: 0 docusate sodium [Stool Softener] 100 mg tablet 100 mg PO DAILY RF: 0 albuterol sulfate [ProAir HFA] 90 mcg/actuation HFA aerosol inhaler 2 puff Inhalation Q4H PRN PRN (Reason: Shortness Of Breath) Qty: 1 RF: 1 fluoxetine 20 mg tablet 20 mg PO DAILY Qty: 90 RF: 3 quetiapine [Seroquel] 25 mg tablet 25 mg PO BID Qty: 20 RF: 0 OptiChamber Advantage 1 EACH spacer 1 ea Miscellaneous DIRECTED RF: 0 albuterol sulfate 2.5 MG/3 ML solution for nebulization 2.5 mg Inhalation Q4H PRN PRN (Reason: Shortness Of Breath) 30 Days RF: 0 guaifenesin [Mucus Relief] 400 mg Tablet 400 mg PO Q4H PRNRF: 0 diphenhydramine HCl [Benadryl] 25 MG capsule 25 mg PO Q6H Qty: 10 RF: 0 pantoprazole 40 mg tablet,delayed release (DR/EC) 40 mg PO DAILY Qty: 90 RF: 3 Symbicort 10.2 GM HFA aerosol inhaler 10.2 gm Inhalation BID Qty: 3 RF: 3 Cepacol Sorethroat-Cough 5-7.5 mg lozenge 1 avery PO Q4H PRN (Reason: sore throat) Qty: 16 RF: 0 meclizine 25 mg tablet 25 mg PO TID PRN (Reason: dizziness) Qty: 20 RF: 0 Discharge Instructions Instructions: Anxiety (ED) Additional Instructions: Please take your medications as prescribed and follow-up with your primary care provider for reassessment. You may continue to take acetaminophen as needed for your intermittent body aches. Referrals: Deborah Chow MD [Primary Care Provider] - (For reassessment of your chronic condition) Medical Decision Making Patient presenting the emergency department for chief complaint of pain all over . Patient states that he gets this to 3 times a week and is been going on for months now. He states that he woke up at 3:30 AM and took a Tylenol at 4 due to similar symptoms. Physical exam shows a vague soft tissue tenderness to the back with no CVA tenderness, no palpable deformity or noted spinal tenderness, clear lung sounds, rate regular cardiac exam, full range of motion of upper extremities and lower extremities, normal gait, normal neurologic exam. Patient is very well familiar to myself and has multiple visits to the emergency department even multiple times daily. Spoke with care management due to patient's multiple visits and she states that approximately 10 minutes prior to arrival she had been on the phone with patient and patient had no complaints of any abnormalities she was trying to arrange primary care follow-up. When questioning patient about this patient states that they do not do anything for him and they cannot perform any imaging or testing. I informed patient that they were able to order the appropriate test and treat his chronic conditions but given very reassuring physical exam and vital signs I do not feel that there is any life-threatening emergency to patient's complaint. Care management was able to arrange follow-up with primary care and also informed him of additional [facility] resources that he may qualify for. Patient was discharged in stable condition. I do feel that this is mostly patient's underlying anxiety but given patient's pain complaint he was given Tylenol in the emergency department. HPI General Mode of arrival: ambulatory . Date/Time Provider Initiated Documentation: 10/31/18 09:51 . Limitations to Documentation: no limitations . Information obtained by: patient, RN notes reviewed and old records reviewed . History of Present Illness 63 year old M presents to the emergency department with the chief complaint of pain all over, described as moderate and similar to prior episodes, with intensity rated at 8. and is localized to the back. Patient started experiencing this month(s) and it has been intermittent. No exacerbating factors reported . Patient notes no other symptoms.. Patient did receive the following treatments prior to arrival, other (Tylenol) Related Data Home Medications Medication Instructions Recorded Confirmed [employer] Advantage kit 10/15/17 10/31/18 albuterol sulfate 2.5 mg INHALATION Q4H PRN PRN 30 10/15/17 10/31/18 Days ml albuterol sulfate HFA 90 2 puff INHALATION Q4H PRN PRN #1 07/02/18 10/31/18 mcg/actuation aerosol inhaler inh guaifenesin [Mucus Relief] 400 mg PO Q4H PRN 09/09/18 10/31/18 Symbicort 10.2 gm INHALATION BID #3 inhaler 09/21/18 10/31/18 pantoprazole 40 mg PO DAILY #90 tab 09/21/18 10/31/18 hydroxyzine HCl 25 mg tablet 25 mg PO TID PRN tab 09/26/18 10/31/18 quetiapine 50 mg tablet 50 mg PO QHS #90 tab 09/26/18 10/31/18 tiotropium bromide 18 mcg capsule 1 cap INHALATION DAILY #90 inh 09/26/18 10/31/18 with inhalation device fluoxetine 20 mg tablet 20 mg PO DAILY #90 tab-cap 10/02/18 10/31/18 quetiapine 25 mg tablet 25 mg PO BID #20 tab 10/17/18 10/31/18 Cepacol Sorethroat-Cough 1 avery PO Q4H PRN #16 each 10/21/18 10/31/18 meclizine 25 mg PO TID PRN #20 tab 10/23/18 10/31/18 diphenhydramine HCl [Benadryl] 25 mg PO Q6H #10 cap 10/28/18 10/31/18 docusate sodium 100 mg tablet 100 mg PO DAILY 10/30/18 10/31/18 Previous Rx's Medication Instructions Recorded [facility] Advantage kit 10/15/17 albuterol sulfate 2.5 mg INHALATION Q4H PRN PRN 30 10/15/17 Days ml albuterol sulfate HFA 90 2 puff INHALATION Q4H PRN PRN #1 07/02/18 mcg/actuation aerosol inhaler inh Symbicort 10.2 gm INHALATION BID #3 inhaler 09/21/18 pantoprazole 40 mg PO DAILY #90 tab 09/21/18 quetiapine 50 mg tablet 50 mg PO QHS #90 tab 09/26/18 tiotropium bromide 18 mcg capsule 1 cap INHALATION DAILY #90 inh 04/24/19 with inhalation device fluoxetine 20 mg tablet 20 mg PO DAILY #90 tab-cap 10/02/18 quetiapine 25 mg tablet 25 mg PO BID #20 tab 10/17/18 Cepacol Sorethroat-Cough 1 avery PO Q4H PRN #16 each 10/21/18 meclizine 25 mg PO TID PRN #20 tab 10/23/18 diphenhydramine HCl [Benadryl] 25 mg PO Q6H #10 cap 10/28/18 Allergies Allergy/AdvReac Type Severity Reaction Status Date / Time No Known Allergies Allergy Verified 10/31/18 09:53 General Stated Complaint: GenMedical FLASH: 4 Review of Systems Constitutional Reports body ache(s), Denies fever(s) and Denies poor appetite Cardiovascular Denies dyspnea Respiratory Denies dyspnea Gastrointestinal Denies nausea and Denies vomiting Genitourinary Denies difficulty urinating, Denies dysuria, Reports flank pain and Denies urinary frequency Integumentary/Breasts Denies rash Neurologic Denies confusion and Denies sensory deficit Psychiatric Denies confusion [facility] Medical History COPD (chronic obstructive pulmonary disease) (Chronic) Adjustment disorder with anxiety (Chronic) Alcohol abuse (Chronic) Anxiety (Chronic) Dyspepsia (Chronic) Malignant neoplasm of right lung (Chronic) Tubular adenoma of colon (Inactive) Surgical History History of lung biopsy (Resolved) History of surgery on upper extremity (Resolved) colonoscopy (Inactive 01/19/15) Family History Father Essential hypertension Hyperlipidemia Paternal Uncle Heart disease Stroke Cerebral hemorrhage Hypertension Brother Cancer Social History Smoking/Tobacco Use Status: Former Tobacco Use Tobacco: How many years used: 30 Alcohol Intake: former Drug use: Never 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 Adopted: No Foster care: No Household members: family Housing: house Number of Children: 0 Communication Needs: None current occupation: not working Current gender identity: male What type of physical activity do you participate in: none and other Details: started lifting weights Frequency: daily Seatbelt use: always Drive 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 Exam Const General: cooperative, no acute distress, anxious and not ill appearing Orientation: alert, awake and oriented x3 HENMT Mouth: moist mucous membranes Eyes Pupils: PERRL Resp Effort & Inspection: normal respiratory effort, able to speak in complete sentences and no respiratory distress Auscultation: clear to auscultation bilaterally Cardio Rate: regular rate Rhythm: regular rhythm Heart Sounds: S1 normal, S2 normal, no click, no gallops, no murmurs and no rubs GI Palpation: soft and nontender Back/Spine/Pelvis Back: no CVA tenderness, No mass and back tenderness (Diffuse nonfocal soft tissue) Thoracic/Lumbar Spine: No thoracic spinal tenderness and No lumbar spinal tenderness Skin General skin exam: no rashes or lesions noted Neuro General: alert, awake, oriented x3, gait normal, tone normal, moves all extremities, no focal motor deficits and not confused Cognition: normal cognition Speech: speech normal Sensory Exam: no sensory deficits noted Extrem General: full ROM, normal capillary refill and no limp Course Vital Signs Temperature 36.7 C 10/31/18 09:48 Pulse 88 10/31/18 09:48 Respiratory Rate 19 10/31/18 09:48 Blood Pressure 127/81 10/31/18 09:48 Pulse Oximetry 98 10/31/18 09:48 Temperature 36.7 C 10/31/18 09:48 Temperature Source Temporal Artery Scan 10/31/18 09:48 Pulse 88 10/31/18 09:48 Respiratory Rate 20 10/31/18 09:51 Respiratory Effort Non-Labored 10/31/18 09:51 Respiratory Depth Normal 10/31/18 09:51 Respiratory Pattern Normal 10/31/18 09:51 Blood Pressure 127/81 10/31/18 09:48 Blood Pressure Position Sitting 10/31/18 09:48 Pulse Oximetry 98 10/31/18 09:48 Oxygen Delivery Method Room Air 10/31/18 09:48 Oxygen Flow Rate 0 10/31/18 09:48 Pain Level 8 10/31/18 09:48
[2018-10-31] MEDS: Acetaminophen 325 MG TAB 650 MG PO (10:18)
--- NOTE | 2018-10-31 10:55 | PDOC.ERCMPRO ---
Care Management Progress Note 10/31-Iggy presented to the ED for body aches. This CM met with Iggy. Iggy had also been in the emergency department at approximately 1:15 am this morning. Discussed with Iggy that we had just spoken on the phone about 15 minutes prior to his arrival in the emergency department and he had stated he was doing good. This CM tried to get Iggy to meet with the representatives from the [place] at [facility], but he stated he couldn't. This CM called [facility] and spoke with Karey who stated Iggy's next f/u appts is 11/13. Discussed above with Shaun READ, and he is in agreement with f/u appt. This CM will reach out to Shweta at [place] to advise.
--- NOTE | 2018-10-31 10:59 | CMPROGNOTE_ITS ---
Care Management Progress Note 10/31-Iggy presented to the ED for body aches. This CM met with Iggy. Iggy had also been in the emergency department at approximately 1:15 am this morning. Discussed with Iggy that we had just spoken on the phone about 15 minutes prior to his arrival in the emergency department and he had stated he was doing good. This CM tried to get Iggy to meet with the representatives from the [place] at [facility], but he stated he couldn't. This CM called [facility] and spoke with Karey who stated Iggy's next f/u appts is 11/13. Discussed above with Shaun READ, and he is in agreement with f/u appt. This CM will reach out to Shweta at [place] to advise.
== END 2018-10-31 10:23 | disposition home or self-care (01) ==
PROVIDERS: Emergency Provider Nurse Practitioner Family; PCP Internal Medicine
DX: F43.22 Adjustment disorder with anxiety (principal)
CPT/HCPCS: 99282

== ENCOUNTER 2018-11-01 18:49 | Emergency (ER) | payer MEDICAID, SELFPAY ==
[2018-11-01 18:52] VITALS: BP 143/92; PULSE 81; RESP 18; TEMP 36.9; O2SAT 97
--- NOTE | 2018-11-01 19:06 | W.ED.GENAD ---
Discharge Plan Disposition Patient Disposition: HOME Condition: Good Discharge Details Chief Complaint: Abd Prob Clinical Impression: Physically well but worried, Dysuria Primary Care Provider: Deborah Chow ED Provider: Pedro Nichole Home Meds and New Rx's Prescriptions: No Action quetiapine [Seroquel] 50 mg tablet 50 mg PO QHS Qty: 90 RF: 0 Spiriva with HandiHaler 18 mcg capsule, w/inhalation device 1 cap Inhalation DAILY Qty: 90 RF: 0 hydroxyzine HCl 25 mg tablet 25 mg PO TID PRNRF: 0 docusate sodium [Stool Softener] 100 mg tablet 100 mg PO DAILY RF: 0 albuterol sulfate [ProAir HFA] 90 mcg/actuation HFA aerosol inhaler 2 puff Inhalation Q4H PRN PRN (Reason: Shortness Of Breath) Qty: 1 RF: 1 fluoxetine 20 mg tablet 20 mg PO DAILY Qty: 90 RF: 3 quetiapine [Seroquel] 25 mg tablet 25 mg PO BID Qty: 20 RF: 0 OptiChamber Advantage 1 EACH spacer 1 ea Miscellaneous DIRECTED RF: 0 albuterol sulfate 2.5 MG/3 ML solution for nebulization 2.5 mg Inhalation Q4H PRN PRN (Reason: Shortness Of Breath) 30 Days RF: 0 guaifenesin [Mucus Relief] 400 mg Tablet 400 mg PO Q4H PRNRF: 0 pantoprazole 40 mg tablet,delayed release (DR/EC) 40 mg PO DAILY Qty: 90 RF: 3 Symbicort 10.2 GM HFA aerosol inhaler 10.2 gm Inhalation BID Qty: 3 RF: 3 diphenhydramine HCl [Benadryl] 25 MG capsule 25 mg PO Q6H PRNRF: 0 meclizine 25 mg tablet 25 mg PO TID PRN (Reason: dizziness) Qty: 20 RF: 0 Discharge Instructions Instructions: Dysuria (ED) Additional Instructions: Your urinalysis is negative for any signs of infection or blood. Since her symptoms are now improved, I do not think that there is anything emergent going on at this time. Please follow-up with your primary care provider. If you notice any worsening of your symptoms, or any new symptoms such as vomiting, diarrhea, fever, chills, shortness of breath, chest pain, numbness, weakness, or fainting , please return immediately to the emergency department for reevaluation. Please follow up with your primary care provider as soon as possible for reassessment and reevaluation. As always, it was a pleasure participating in your medical care today. Referrals: Deborah Chow MD [Primary Care Provider] - Medical Decision Making This is a pleasant 63-year-old male who is well-known to the ED who presents today with for evaluation of dysuria. He denies any red flags of fever or chills. No significant abdominal or flank pain. Vital signs are notably reassuring. We will evaluate for any signs of urinary tract infection reassessed at this time the patient demonstrates a nontender abdomen, no clinical evidence of an acute surgical abdomen.. I do not feel that any imaging at this time is currently indicated. Signs and symptoms appear inconsistent with acute appendicitis, kidney stone, AAA, or life-threatening intra-abdominal etiology. 8:06 PM Urinalysis is negative for any evidence of infection, at this time the patient's symptoms have completely spontaneous recently resolved on their own. I feel there may be a component of factitious disorder. Patient continues to demonstrate no acute tenderness in his abdomen, reassuring vital signs, no other abnormalities. He will be discharged home. I have extensively reviewed the treatment plan and discharge instructions with the patient. I have addressed all patient concerns at this time. The patient was made aware of what symptoms to monitor for that would warrant a return to the emergency department. Discussed the plan with the patient, they demonstrate verbal understanding and agreement with our assessment and plan at this time. HPI General Date/Time Provider Initiated Documentation: 11/01/18 19:02. HPI Narrative: This is a 63-year-old male with a past medical history of chronic abdominal pain, COPD, adjustment disorder with anxiety, who presents today for evaluation of dysuria. Patient states that for the last 12 to 24 hours he has had mild burning with urination. He denies any fever or chills. To me he denies any abdominal pain but does admit to some mild suprapubic pain. At this time he denies any umbilical pain, periumbilical pain, right lower quadrant or left lower quadrant pain. He denies any hematuria, pain with defecation, vomiting or diarrhea. He has no other complaints or modifying factors. He denies any fever, chills. Related Data Home Medications Medication Instructions Recorded Confirmed [employer] Advantage kit 10/15/17 10/31/18 albuterol sulfate 2.5 mg INHALATION Q4H PRN PRN 30 10/15/17 11/01/18 Days ml albuterol sulfate HFA 90 2 puff INHALATION Q4H PRN PRN #1 07/02/18 11/01/18 mcg/actuation aerosol inhaler inh guaifenesin [Mucus Relief] 400 mg PO Q4H PRN 09/09/18 11/01/18 Symbicort 10.2 gm INHALATION BID #3 inhaler 09/21/18 11/01/18 pantoprazole 40 mg PO DAILY #90 tab 09/21/18 11/01/18 hydroxyzine HCl 25 mg tablet 25 mg PO TID PRN tab 09/26/18 11/01/18 quetiapine 50 mg tablet 50 mg PO QHS #90 tab 09/26/18 11/01/18 tiotropium bromide 18 mcg capsule 1 cap INHALATION DAILY #90 inh 09/26/18 11/01/18 with inhalation device fluoxetine 20 mg tablet 20 mg PO DAILY #90 tab-cap 10/02/18 11/01/18 quetiapine 25 mg tablet 25 mg PO BID #20 tab 10/17/18 11/01/18 meclizine 25 mg PO TID PRN #20 tab 10/23/18 11/01/18 docusate sodium 100 mg tablet 100 mg PO DAILY 10/30/18 11/01/18 diphenhydramine HCl [Benadryl] 25 mg PO Q6H PRN 11/01/18 11/01/18 Previous Rx's Medication Instructions Recorded [facility] kit 10/15/17 albuterol sulfate 2.5 mg INHALATION Q4H PRN PRN 30 10/15/17 Days ml albuterol sulfate HFA 90 2 puff INHALATION Q4H PRN PRN #1 07/02/18 mcg/actuation aerosol inhaler inh Symbicort 10.2 gm INHALATION BID #3 inhaler 09/21/18 pantoprazole 40 mg PO DAILY #90 tab 09/21/18 quetiapine 50 mg tablet 50 mg PO QHS #90 tab 09/26/18 tiotropium bromide 18 mcg capsule 1 cap INHALATION DAILY #90 inh 09/26/18 with inhalation device fluoxetine 20 mg tablet 20 mg PO DAILY #90 tab-cap 10/02/18 quetiapine 25 mg tablet 25 mg PO BID #20 tab 10/17/18 meclizine 25 mg PO TID PRN #20 tab 10/23/18 Allergies Allergy/AdvReac Type Severity Reaction Status Date / Time No Known Allergies Allergy Verified 11/01/18 18:56 General Stated Complaint: Abd Prob FLASH: 3 Review of Systems Review of Systems All systems reviewed & are unremarkable except as noted in HPI and below PFSH Social History Smoking/Tobacco Use Status: Former Tobacco Use Tobacco: How many years used: 30 Alcohol Intake: former Drug use: Never 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 Adopted: No Foster care: No Household members: family Housing: house Number of Children: 0 Communication Needs: None current occupation: not working Current gender identity: male What type of physical activity do you participate in: none and other Details: started lifting weights Frequency: daily Seatbelt use: always Drive intox or ride w/intox hog 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 Exam Narrative Exam Narrative: 1.Const: Well-nourished, Well-developed, appearing stated age 2.Eyes: PERRL, no conjunctival injection, and symmetrical lids. 3.ENT: Atraumatic external nose and ears. Moist MM. Neck: Symmetric, trachea midline, No thyromegaly. 4.CVS: +S1/S2, No murmurs or gallops. Peripheral pulses 2+ and equal in all extremities. Brisk capillary refill in all extremities. 5.RESP: Unlabored respiratory effort. Clear to auscultation bilaterally. No wheezes rales or rhonchi 6.GI: Soft, Nontender/Nondistended, No hepatosplenomegaly. No guarding or rebound. Normal external genitalia, no penile discharge, no indirect or direct inguinal hernia palpable when the patient stands up and/or bears down, no scrotal masses, no femoral groin pain for femoral bulge palpable, normal testes, non painful testicular exam, normal cremasteric reflex bilaterally. 7.MSK: Normocephalic/Atraumatic, Extremities w/o deformity or ttp No cyanosis or clubbing, Normal movement of all extremities 8.Skin: Warm, Dry. No rashes or lesions. 9.Neuro: senior administrative associate II-XII grossly intact. Sensation grossly intact, no focal neurologic deficits. 10.Psych: (AAO) x3. Appropriate mood and affect Course Vital Signs Temperature 36.9 C 11/01/18 18:52 Pulse 81 11/01/18 18:52 Respiratory Rate 18 11/01/18 18:52 Blood Pressure 143/92 H 11/01/18 18:52 Pulse Oximetry 97 11/01/18 18:52 Temperature 36.9 C 11/01/18 18:52 Temperature Source Skin 11/01/18 18:52 Pulse 81 11/01/18 18:52 Respiratory Rate 18 11/01/18 18:52 Respiratory Effort Non-Labored 11/01/18 18:55 Blood Pressure 143/92 H 11/01/18 18:52 Blood Pressure Position Sitting 11/01/18 18:52 Pulse Oximetry 97 11/01/18 18:52 Oxygen Delivery Method Room Air 11/01/18 18:52 Oxygen Flow Rate 0 11/01/18 18:52 Pain Level 8 11/01/18 19:01
[2018-11-01 19:45] LABS: Bilirubin Negative (Negative); Blood Negative (Negative); Clarity Clear; Glucose Negative (Negative); Ketones Negative (Negative); Leukocyte Esterase Negative (Negative); Nitrite Negative (Negative); Specific Gravity 1.015 (1.005-1.025); Urobilinogen 0.2 EU/dL (Up TO 0.2); pH 8.5 (5-8)
[2018-11-01 20:11] VITALS: BP 132/80; PULSE 78; RESP 16; TEMP 36.8; O2SAT 97
== END 2018-11-01 20:10 | disposition home or self-care (01) ==
PROVIDERS: Emergency Provider Student in an Organized Health Care Education/Training Program; PCP Internal Medicine
DX: R30.0 Dysuria (principal); F41.9 Anxiety disorder, unspecified
CPT/HCPCS: 99282; 81003

== ENCOUNTER 2018-11-02 17:28 | Emergency (ER) | payer MEDICAID, SELFPAY ==
[2018-11-02 17:31] VITALS: BP 137/79; PULSE 99; RESP 20; TEMP 36.8; O2SAT 98
--- NOTE | 2018-11-02 17:55 | W.ED.GENAD ---
Discharge Plan Disposition Patient Disposition: HOME Condition: Good Discharge Details Chief Complaint: Anxiety Clinical Impression: Anxiety, Adverse drug effect Primary Care Provider: Deborah Chow ED Provider: Angelica Majano Home Meds and New Rx's Prescriptions: Continued quetiapine [Seroquel] 50 mg tablet 50 mg PO QHS Qty: 90 RF: 0 Spiriva with HandiHaler 18 mcg capsule, w/inhalation device 1 cap Inhalation DAILY Qty: 90 RF: 0 docusate sodium [Stool Softener] 100 mg tablet 100 mg PO DAILY RF: 0 albuterol sulfate [ProAir HFA] 90 mcg/actuation HFA aerosol inhaler 2 puff Inhalation Q4H PRN PRN (Reason: Shortness Of Breath) Qty: 1 RF: 1 fluoxetine 20 mg tablet 20 mg PO DAILY Qty: 90 RF: 3 quetiapine [Seroquel] 25 mg tablet 25 mg PO BID Qty: 20 RF: 0 OptiChamber Advantage 1 EACH spacer 1 ea Miscellaneous DIRECTED RF: 0 albuterol sulfate 2.5 MG/3 ML solution for nebulization 2.5 mg Inhalation Q4H PRN PRN (Reason: Shortness Of Breath) 30 Days RF: 0 guaifenesin [Mucus Relief] 400 mg Tablet 400 mg PO Q4H PRNRF: 0 pantoprazole 40 mg tablet,delayed release (DR/EC) 40 mg PO DAILY Qty: 90 RF: 3 Symbicort 10.2 GM HFA aerosol inhaler 10.2 gm Inhalation BID Qty: 3 RF: 3 diphenhydramine HCl [Benadryl] 25 MG capsule 25 mg PO Q6H PRNRF: 0 meclizine 25 mg tablet 25 mg PO TID PRN (Reason: dizziness) Qty: 20 RF: 0 Discontinued hydroxyzine HCl 25 mg tablet 25 mg PO TID PRNRF: 0 Discharge Instructions Additional Instructions: Continue to encourage hydration. Stop the hydroxyzine as this is likely was driving her symptoms. Please follow-up with primary care next week. If you develop new/worsening symptoms seek care in the emergency department once again Referrals: Deborah Chow MD [Primary Care Provider] - Discharge Data Discharge Date/Time-TO BE ENTERED AT DEPARTURE: 11/02/18 18:04 Medical Decision Making Patient is 63-year-old male presents today for feeling of taking his hydroxyzine first time. No evidence of anaphylactic reaction on exam. Patient appears to be at baseline. He also endorses feeling quite anxious. Was evaluated by his primary care today. No evidence of emergent issue on exam. This likely linked to anxiety. I advised that he not take medication further if he did not feel well doing so and cause side effects. We discussed emergent reasons to seek care urgently once again. Advise follow-up with primary care. He will contact his mental health provider moving forward if he has recurrent symptoms prior to coming to the emergency department. All his questions and concerns were addressed and he is in agreement this plan HPI General Mode of arrival: ambulatory. Date/Time Provider Initiated Documentation: 11/02/18 17:54. Limitations to Documentation: no limitations. Information obtained by: patient and RN notes reviewed. HPI Narrative: Patient is 63-year-old male, well-known to myself, with chief complaint of adverse reaction. He reports that roughly 3 hours prior to arrival he took hydroxyzine for the first time. States this is a new medication prescribed by his primary care. States that within half an hour he began feeling funny. Denies any chest pain. Endorses chronic shortness of breath. Endorses ringing in my ears and feeling shaky. Is endorsing fatigue. Patient was seen by primary care today. Reports that he took a long [place] today with somebody from [facility]. [place] well during this time. Began feeling anxious after being seen by his primary care, contacted them by phone and they advised that he try taking his hydroxyzine. It was after this that he had increase in his anxiety and the symptoms listed above. Patient was, and continues to be, anxious about taking new medication. Related Data Home Medications Medication Instructions Recorded Confirmed [facility] [employer] [facility] Advantage kit 10/15/17 11/06/18 albuterol sulfate 2.5 mg INHALATION Q4H PRN PRN 30 10/15/17 11/06/18 Days ml albuterol sulfate HFA 90 2 puff INHALATION Q4H PRN PRN #1 07/02/18 11/06/18 mcg/actuation aerosol inhaler inh guaifenesin [Mucus Relief] 400 mg PO Q4H PRN 09/09/18 11/06/18 Symbicort 10.2 gm INHALATION BID #3 inhaler 09/21/18 11/06/18 pantoprazole 40 mg PO DAILY #90 tab 09/21/18 11/06/18 quetiapine 50 mg tablet 50 mg PO QHS #90 tab 09/26/18 11/06/18 tiotropium bromide 18 mcg capsule 1 cap INHALATION DAILY #90 inh 09/26/18 11/06/18 with inhalation device fluoxetine 20 mg tablet 20 mg PO DAILY #90 tab-cap 10/02/18 11/06/18 quetiapine 25 mg tablet 25 mg PO BID #20 tab 10/17/18 11/06/18 meclizine 25 mg PO TID PRN #20 tab 10/23/18 11/06/18 docusate sodium 100 mg tablet 100 mg PO DAILY 10/30/18 11/06/18 diphenhydramine HCl [Benadryl] 25 mg PO Q6H PRN 11/01/18 11/06/18 Previous Rx's Medication Instructions Recorded [facility] Ad[facility] kit 10/15/17 albuterol sulfate 2.5 mg INHALATION Q4H PRN PRN 30 10/15/17 Days ml albuterol sulfate HFA 90 2 puff INHALATION Q4H PRN PRN #1 07/02/18 mcg/actuation aerosol inhaler inh Symbicort 10.2 gm INHALATION BID #3 inhaler 09/21/18 pantoprazole 40 mg PO DAILY #90 tab 09/21/18 quetiapine 50 mg tablet 50 mg PO QHS #90 tab 09/26/18 tiotropium bromide 18 mcg capsule 1 cap INHALATION DAILY #90 inh 09/26/18 with inhalation device fluoxetine 20 mg tablet 20 mg PO DAILY #90 tab-cap 10/02/18 quetiapine 25 mg tablet 25 mg PO BID #20 tab 10/17/18 meclizine 25 mg PO TID PRN #20 tab 10/23/18 Allergies Allergy/AdvReac Type Severity Reaction Status Date / Time No Known Allergies Allergy Verified 11/06/18 04:48 General Stated Complaint: Anxiety FLASH: 4 Review of Systems Constitutional Reports as per HPI, Denies chills, Denies fever(s), Denies headache(s), Denies lethargy, Denies poor appetite and Denies weakness Eyes Denies change in vision and Denies loss of vision ENT Denies dizziness and Denies headache(s) Cardiovascular Reports as per HPI, Reports dyspnea (chronic, was physically active today without increased SOB or CP) and Denies dyspnea on exertion Respiratory Reports as per HPI, Denies chest congestion, Denies cough, Denies pain on inspiration, Denies pain with cough, Reports dyspnea (chronic, was physically active today without increased SOB or CP), Denies dyspnea on exertion and Denies wheezing Gastrointestinal Reports as per HPI, Denies abdominal pain, Denies diarrhea, Denies nausea and Denies vomiting Genitourinary Denies system reviewed and no additional complaints, except as docu (denies change in urinary habits) Musculoskeletal Reports as per HPI and Denies back pain Integumentary/Breasts Reports as per HPI and Denies rash Neurologic Reports as per HPI, Reports abnormal movements (feels that he is shaking), Denies dizziness, Denies headache(s), Denies focal weakness, Denies loss of vision, Denies sensory deficit and Denies weakness Allergic/Immunologic Denies wheezing [facility] Medical History COPD (chronic obstructive pulmonary disease) (Chronic) Adjustment disorder with anxiety (Chronic) Alcohol abuse (Chronic) Anxiety (Chronic) Dyspepsia (Chronic) Malignant neoplasm of right lung (Chronic) Tubular adenoma of colon (Inactive) Surgical History History of lung biopsy (Resolved) History of surgery on upper extremity (Resolved) colonoscopy (Inactive 01/19/15) Social History Smoking/Tobacco Use Status: Former Tobacco Use Quit Date: 06/05/98 Tobacco: How many years used: 30 Alcohol Intake: former Drug use: Never 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 Adopted: No Foster care: No Household members: family Housing: house Number of Children: 0 Communication Needs: None current occupation: not working Current gender identity: male What type of physical activity do you participate in: none and other Details: started lifting weights Frequency: daily Seatbelt use: always Drive intox or ride w/intox 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 Exam Const General: cooperative, comfortable, no acute distress, well developed, anxious, disheveled (appears to be at baseline), ill appearing chronically and No well hydrated Nutritional Appearance: well nourished and thin Orientation: alert, awake and oriented x3 HENMT Head: normal to inspection Ears: hearing grossly normal bilaterally Mouth: moist mucous membranes Eyes General: appearance normal, both eyes and all related structures Alignment and Position: alignment normal Periorbital: periorbital findings normal Eyelids: eyelids normal Pupils: PERRL EOM: EOM intact bilaterally Chest Chest: normal inspection of the chest, normal palpation of entire chest wall and no crepitus Resp Effort & Inspection: normal respiratory effort, able to speak in complete sentences and no respiratory distress Auscultation: clear to auscultation bilaterally, no rales, no rhonchi and no wheezes Cardio Rate: regular rate Rhythm: regular rhythm Heart Sounds: S1 normal and S2 normal GI Palpation: not rigid Skin General skin exam: no rashes or lesions noted Trauma: no lacerations or abrasions Neuro General: alert, awake and oriented x3 Cranial Nerves: CN's II-XI intact bilaterally Cognition: normal cognition Speech: speech normal Gait: normal gait Motor: muscle tone normal throughout, strength 5/5 throughout, no pronator drift, no movement abnormalities noted and no fasciculations Sensory Exam: no sensory deficits noted Extrem General: no pedal edema Psych Appearance: grossly normal and well kempt Mental Status: mental status grossly normal Speech and Movement: speech and movement normal Mood: anxious mood Course Vital Signs Temperature 36.8 C 11/02/18 17:31 Pulse 99 H 11/02/18 17:31 Respiratory Rate 20 11/02/18 17:31 Blood Pressure 137/79 11/02/18 17:31 Pulse Oximetry 98 11/02/18 17:31 Temperature 36.8 C 11/02/18 17:31 Temperature Source Temporal Artery Scan 11/02/18 17:31 Pulse 99 H 11/02/18 17:31 Respiratory Rate 20 11/02/18 17:31 Respiratory Effort Non-Labored 11/02/18 17:31 Blood Pressure 137/79 11/02/18 17:31 Pulse Oximetry 98 11/02/18 17:31 Oxygen Delivery Method Room Air 11/02/18 17:31 Oxygen Flow Rate 0 11/02/18 17:31
[2018-11-02 18:04] VITALS: BP 137/79; PULSE 99; RESP 20; TEMP 36.8; O2SAT 98
--- NOTE | 2018-11-02 18:05 | ED.GENADUL_ITS ---
Discharge Plan Disposition Patient Disposition: HOME Condition: Good Discharge Details Chief Complaint: Anxiety Clinical Impression: Anxiety, Adverse drug effect Primary Care Provider: Deborah Chow ED Provider: Angelica Majano Home Meds and New Rx's Prescriptions: Continued quetiapine [Seroquel] 50 mg tablet 50 mg PO QHS Qty: 90 RF: 0 Spiriva with HandiHaler 18 mcg capsule, w/inhalation device 1 cap Inhalation DAILY Qty: 90 RF: 0 docusate sodium [Stool Softener] 100 mg tablet 100 mg PO DAILY RF: 0 albuterol sulfate [ProAir HFA] 90 mcg/actuation HFA aerosol inhaler 2 puff Inhalation Q4H PRN PRN (Reason: Shortness Of Breath) Qty: 1 RF: 1 fluoxetine 20 mg tablet 20 mg PO DAILY Qty: 90 RF: 3 quetiapine [Seroquel] 25 mg tablet 25 mg PO BID Qty: 20 RF: 0 OptiChamber Advantage 1 EACH spacer 1 ea Miscellaneous DIRECTED RF: 0 albuterol sulfate 2.5 MG/3 ML solution for nebulization 2.5 mg Inhalation Q4H PRN PRN (Reason: Shortness Of Breath) 30 Days RF: 0 guaifenesin [Mucus Relief] 400 mg Tablet 400 mg PO Q4H PRNRF: 0 pantoprazole 40 mg tablet,delayed release (DR/EC) 40 mg PO DAILY Qty: 90 RF: 3 Symbicort 10.2 GM HFA aerosol inhaler 10.2 gm Inhalation BID Qty: 3 RF: 3 diphenhydramine HCl [Benadryl] 25 MG capsule 25 mg PO Q6H PRNRF: 0 meclizine 25 mg tablet 25 mg PO TID PRN (Reason: dizziness) Qty: 20 RF: 0 Discontinued hydroxyzine HCl 25 mg tablet 25 mg PO TID PRNRF: 0 Discharge Instructions Additional Instructions: Continue to encourage hydration. Stop the hydroxyzine as this is likely was driving her symptoms. Please follow-up with primary care next week. If you develop new/worsening symptoms seek care in the emergency department once again Referrals: Deborah Chow MD [Primary Care Provider] - Discharge Data Discharge Date/Time-TO BE ENTERED AT DEPARTURE: 11/02/18 18:04 Medical Decision Making Patient is 63-year-old male presents today for feeling of taking his hydroxyzine first time. No evidence of anaphylactic reaction on exam. Patient appears to be at baseline. He also endorses feeling quite anxious. Was evaluated by his primary care today. No evidence of emergent issue on exam. This likely linked to anxiety. I advised that he not take medication further if he did not feel well doing so and cause side effects. We discussed emergent reasons to seek care urgently once again. Advise follow-up with primary care. He will contact his mental health provider moving forward if he has recurrent symptoms prior to coming to the emergency department. All his questions and concerns were addressed and he is in agreement this plan HPI General Mode of arrival: ambulatory . Date/Time Provider Initiated Documentation: 11/02/18 17:54 . Limitations to Documentation: no limitations . Information obtained by: patient and RN notes reviewed . HPI Narrative: Patient is 63-year-old male, well-known to myself, with chief complaint of adverse reaction. He reports that roughly 3 hours prior to arrival he took hydroxyzine for the first time. States this is a new medication prescribed by his primary care. States that within half an hour he began feeling funny. Denies any c hest pain. Endorses chronic shortness of breath. Endorses ringing in my ears and feeling shaky. Is endorsing fatigue. Patient was seen by primary care today. Reports that he took a long [place] today with somebody from [facility]. [place] well during this time. Began feeling anxious after being seen by his primary care, contacted them by phone and they advised that he try taking his hydroxyzine. It was after this that he had increase in his anxiety and the symptoms listed above. Patient was, and continues to be, anxious about taking new medication. Related Data Home Medications Medication Instructions Recorded [facility] 10/15/17 11/06/18 albuterol sulfate 2.5 mg INHALATION Q4H PRN PRN 30 10/15/17 11/06/18 Days ml albuterol sulfate HFA 90 2 puff INHALATION Q4H PRN PRN #1 07/02/18 11/06/18 mcg/actuation aerosol inhaler inh guaifenesin [Mucus Relief] 400 mg PO Q4H PRN 09/09/18 11/06/18 Symbicort 10.2 gm INHALATION BID #3 inhaler 09/21/18 11/06/18 pantoprazole 40 mg PO DAILY #90 tab 09/21/18 11/06/18 quetiapine 50 mg tablet 50 mg PO QHS #90 tab 09/26/18 11/06/18 tiotropium bromide 18 mcg capsule 1 cap INHALATION DAILY #90 inh 09/26/18 11/06/18 with inhalation device fluoxetine 20 mg tablet 20 mg PO DAILY #90 tab-cap 10/02/18 11/06/18 quetiapine 25 mg tablet 25 mg PO BID #20 tab 10/17/18 11/06/18 meclizine 25 mg PO TID PRN #20 tab 10/23/18 11/06/18 docusate sodium 100 mg tablet 100 mg PO DAILY 10/30/18 11/06/18 diphenhydramine HCl [Benadryl] 25 mg PO Q6H PRN 11/01/18 11/06/18 Previous Rx's Medication Instructions Recorded [facility] 10/15/17 albuterol sulfate 2.5 mg INHALATION Q4H PRN PRN 30 10/15/17 Days ml albuterol sulfate HFA 90 2 puff INHALATION Q4H PRN PRN #1 07/02/18 mcg/actuation aerosol inhaler inh Symbicort 10.2 gm INHALATION BID #3 inhaler 09/21/18 pantoprazole 40 mg PO DAILY #90 tab 09/21/18 quetiapine 50 mg tablet 50 mg PO QHS #90 tab 09/26/18 tiotropium bromide 18 mcg capsule 1 cap INHALATION DAILY #90 inh 09/26/18 with inhalation device fluoxetine 20 mg tablet 20 mg PO DAILY #90 tab-cap 10/02/18 quetiapine 25 mg tablet 25 mg PO BID #20 tab 10/17/18 meclizine 25 mg PO TID PRN #20 tab 10/23/18 Allergies Allergy/AdvReac Type Severity Reaction Status Date / Time No Known Allergies Allergy Verified 11/06/18 04:48 General Stated Complaint: Anxiety FLASH: 4 Review of Systems Constitutional Reports as per HPI, Denies chills, Denies fever(s), Denies headache(s), Denies lethargy, Denies poor appetite and Denies weakness Eyes Denies change in vision and Denies loss of vision ENT Denies dizziness and Denies headache(s) Cardiovascular Reports as per HPI, Reports dyspnea (chronic, was physically active today without increased SOB or CP) and Denies dyspnea on exertion Respiratory Reports as per HPI, Denies chest congestion, Denies cough, Denies pain on inspiration, Denies pain with cough, Reports dyspnea (chronic, was physically active today without increased SOB or CP), Denies dyspnea on exertion and Denies wheezing Gastrointestinal Reports as per HPI, Denies abdominal pain, Denies diarrhea, Denies nausea and Denies vomiting Genitourinary Denies system reviewed and no additional complaints, except as docu (denies c hange in urinary habits) Musculoskeletal Reports as per HPI and Denies back pain Integumentary/Breasts Reports as per HPI and Denies rash Neurologic Reports as per HPI, Reports abnormal movements (feels that he is shaking), Denies dizziness, Denies headache(s), Denies focal weakness, Denies loss of vision, Denies sensory deficit and Denies weakness Allergic/Immunologic Denies wheezing [facility] Medical History COPD (chronic obstructive pulmonary disease) (Chronic) Adjustment disorder with anxiety (Chronic) Alcohol abuse (Chronic) Anxiety (Chronic) Dyspepsia (Chronic) Malignant neoplasm of right lung (Chronic) Tubular adenoma of colon (Inactive) Surgical History History of lung biopsy (Resolved) History of surgery on upper extremity (Resolved) colonoscopy (Inactive 01/19/15) Social History Smoking/Tobacco Use Status: Former Tobacco Use Quit Date: 06/05/98 Tobacco: How many years used: 30 Alcohol Intake: former Drug use: Never 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 Adopted: No Foster care: No Household members: family Housing: house Number of Children: 0 Communication Needs: None current occupation: not working Current gender identity: male What type of physical activity do you participate in: none and other Details: started lifting weights Frequency: daily Seatbelt use: always Drive intox or ride w/intox 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 Exam Const General: cooperative, comfortable, no acute distress, well developed, anxious, disheveled (appears to be at baseline), ill appearing chronically and No well hydrated Nutritional Appearance: well nourished and thin Orientation: alert, awake and oriented x3 HENMT Head: normal to inspection Ears: hearing grossly normal bilaterally Mouth: moist mucous membranes Eyes General: appearance normal, both eyes and all related structures Alignment and Position: alignment normal Periorbital: periorbital findings normal Eyelids: eyelids normal Pupils: PERRL EOM: EOM intact bilaterally Chest Chest: normal inspection of the chest, normal palpation of entire chest wall and no crepitus Resp Effort & Inspection: normal respiratory effort, able to speak in complete sentences and no respiratory distress Auscultation: clear to auscultation bilaterally, no rales, no rhonchi and no wheezes Cardio Rate: regular rate Rhythm: regular rhythm Heart Sounds: S1 normal and S2 normal GI Palpation: not rigid Skin General skin exam: no rashes or lesions noted Trauma: no lacerations or abrasions Neuro General: alert, awake and oriented x3 Cranial Nerves: CN's II-XI intact bilaterally Cognition: normal cognition Speech: speech normal Gait: normal gait Motor: muscle tone normal throughout, strength 5/5 throughout, no pronator drift, no movement abnormalities noted and no fasciculations Sensory Exam: no sensory deficits noted Extrem General: no pedal edema Psych Appearance: grossly normal and well kempt Mental Status: mental status grossly normal Speech and Movement: speech and movement normal Mood: anxious mood Course Vital Signs Temperature 36.8 C 11/02/18 17:31 Pulse 99 H 11/02/18 17:31 Respiratory Rate 20 11/02/18 17:31 Blood Pressure 137/79 11/02/18 17:31 Pulse Oximetry 98 11/02/18 17:31 Temperature 36.8 C 11/02/18 17:31 Temperature Source Temporal Artery Scan 11/02/18 17:31 Pulse 99 H 11/02/18 17:31 Respiratory Rate 20 11/02/18 17:31 Respiratory Effort Non-Labored 11/02/18 17:31 Blood Pressure 137/79 11/02/18 17:31 Pulse Oximetry 98 11/02/18 17:31 Oxygen Delivery Method Room Air 11/02/18 17:31 Oxygen Flow Rate 0 11/02/18 17:31
== END 2018-11-02 18:04 | disposition home or self-care (01) ==
LOC: ER 18:08
PROVIDERS: Emergency Provider Physician Assistant; PCP Internal Medicine
DX: F41.9 Anxiety disorder, unspecified (principal); H93.13 Tinnitus, bilateral; T43.595A Adverse effect of other antipsychotics and neuroleptics, initial encounter
CPT/HCPCS: 99283

== ENCOUNTER 2018-11-03 17:36 | Emergency (ER) | payer MEDICAID, SELFPAY ==
[2018-11-03 17:38] VITALS: BP 139/87; PULSE 97; RESP 20; TEMP 36.8; O2SAT 98
--- NOTE | 2018-11-03 17:50 | ED.GENADUL_ITS ---
Discharge Plan Disposition Patient Disposition: HOME Condition: Stable Discharge Details Chief Complaint: RespSymp Clinical Impression: Anxiety, Chronic shortness of breath Primary Care Provider: Deborah Chow ED Provider: Alison Resendiz Home Meds and New Rx's Prescriptions: Continued quetiapine [Seroquel] 50 mg tablet 50 mg PO QHS Qty: 90 RF: 0 Spiriva with HandiHaler 18 mcg capsule, w/inhalation device 1 cap Inhalation DAILY Qty: 90 RF: 0 docusate sodium [Stool Softener] 100 mg tablet 100 mg PO DAILY RF: 0 albuterol sulfate [ProAir HFA] 90 mcg/actuation HFA aerosol inhaler 2 puff Inhalation Q4H PRN PRN (Reason: Shortness Of Breath) Qty: 1 RF: 1 fluoxetine 20 mg tablet 20 mg PO DAILY Qty: 90 RF: 3 quetiapine [Seroquel] 25 mg tablet 25 mg PO BID Qty: 20 RF: 0 OptiChamber Advantage 1 EACH spacer 1 ea Miscellaneous DIRECTED RF: 0 albuterol sulfate 2.5 MG/3 ML solution for nebulization 2.5 mg Inhalation Q4H PRN PRN (Reason: Shortness Of Breath) 30 Days RF: 0 guaifenesin [Mucus Relief] 400 mg Tablet 400 mg PO Q4H PRNRF: 0 pantoprazole 40 mg tablet,delayed release (DR/EC) 40 mg PO DAILY Qty: 90 RF: 3 Symbicort 10.2 GM HFA aerosol inhaler 10.2 gm Inhalation BID Qty: 3 RF: 3 diphenhydramine HCl [Benadryl] 25 MG capsule 25 mg PO Q6H PRNRF: 0 meclizine 25 mg tablet 25 mg PO TID PRN (Reason: dizziness) Qty: 20 RF: 0 Discharge Instructions Instructions: Dyspnea (ED), Anxiety (ED) Additional Instructions: Take your regular medications as needed and directed. Call your primary care doctor on Monday morning to schedule a follow-up appointment for reevaluation. Return immediately to the emergency department with any worsening or new concerning symptoms. Discharge Data Discharge Date/Time-TO BE ENTERED AT DEPARTURE: 11/03/18 18:46 Discharge Physician: Alison Resendiz Medical Decision Making 63-year-old male with a history of anxiety, COPD, lung cancer, GERD, depression and previous alcohol abuse who presents with shortness of breath and abdominal pain since this afternoon. Patient has a chronic history of shortness of breath and has been seen in the ED multiple times for similar complaints of anxiety, chest pain, shortness of breath, and abdominal pain. He states his shortness of breath and abdominal pain feels consistent with his usual chronic daily episodes. Denies any chest pain at this time. This is pt's 22nd visit to the ED in the last month and 65 visits since the start of the year for complaints related to anxiety, sob, chest pain. He also states that he took a dose of hydroxyzine yesterday and today and states he feels like this made him feel funny. His primary care doctor has advised that he take an extra dose of Seroquel and lorazepam in the evenings when he feels anxiety or any of his usual daily symptoms. Patient also expressed concern that his symptoms may be due to lung cancer. Patient has a documented history of lung cancer and a CT chest from August notes a right upper lung mass. A chest x-ray from 1 week ago noted that this mass is stable. As patient has normal vitals, normal lung sounds, no signs of respiratory distress, fever, weight loss, I do not see an indication for additional labs or imaging and he can follow-up with his primary care doctor for reevaluation and referral for follow-up imaging. Patient instructed to call his primary care doctor on Monday morning to schedule follow-up appointment for reevaluation and to return here with any acute worsening or new concerning symptoms. HPI General Mode of arrival: ambulatory . Date/Time Provider Initiated Documentation: 11/03/18 17:47 . Limitations to Documentation: no limitations . Information obtained by: patient . HPI Narrative: Patient is a 63-year-old male well known to the emergency department for multiple visits to the ED for complaints related to chest pain or shortness of breath who has a history of anxiety, COPD, lung cancer, GERD, depression and previous alcohol abuse who presents with shortness of breath and abdominal pain since this afternoon. He states his shortness of breath and abdominal pain feels consistent with his usual chronic daily episodes. Denies any chest pain at this time. Related Data Home Medications Medication Instructions Recorded Confirmed [employer] Advantage kit 10/15/17 11/06/18 albuterol sulfate 2.5 mg INHALATION Q4H PRN PRN 30 10/15/17 11/07/18 Days ml albuterol sulfate HFA 90 2 puff INHALATION Q4H PRN PRN #1 07/02/18 11/07/18 mcg/actuation aerosol inhaler inh guaifenesin [Mucus Relief] 400 mg PO Q4H PRN 09/09/18 11/07/18 Symbicort 10.2 gm INHALATION BID #3 inhaler 09/21/18 11/07/18 pantoprazole 40 mg PO DAILY #90 tab 09/21/18 11/07/18 quetiapine 50 mg tablet 50 mg PO QHS #90 tab 09/26/18 11/07/18 tiotropium bromide 18 mcg capsule 1 cap INHALATION DAILY #90 inh 09/26/18 11/07/18 with inhalation device fluoxetine 20 mg tablet 20 mg PO DAILY #90 tab-cap 10/02/18 11/07/18 quetiapine 25 mg tablet 25 mg PO BID #20 tab 10/17/18 11/07/18 meclizine 25 mg PO TID PRN #20 tab 10/23/18 11/07/18 docusate sodium 100 mg tablet 100 mg PO DAILY 10/30/18 11/07/18 diphenhydramine HCl [Benadryl] 25 mg PO Q6H PRN 11/01/18 11/07/18 Previous Rx's Medication Instructions Recorded [facility] Advantage kit 10/15/17 albuterol sulfate 2.5 mg INHALATION Q4H PRN PRN 30 10/15/17 Days ml albuterol sulfate HFA 90 2 puff INHALATION Q4H PRN PRN #1 07/02/18 mcg/actuation aerosol inhaler inh Symbicort 10.2 gm INHALATION BID #3 inhaler 09/21/18 pantoprazole 40 mg PO DAILY #90 tab 09/21/18 quetiapine 50 mg tablet 50 mg PO QHS #90 tab 09/26/18 tiotropium bromide 18 mcg capsule 1 cap INHALATION DAILY #90 inh 09/26/18 with inhalation device fluoxetine 20 mg tablet 20 mg PO DAILY #90 tab-cap 10/02/18 quetiapine 25 mg tablet 25 mg PO BID #20 tab 10/17/18 meclizine 25 mg PO TID PRN #20 tab 05/21/19 Allergies Allergy/AdvReac Type Severity Reaction Status Date / Time No Known Allergies Allergy Verified 11/07/18 15:02 General Stated Complaint: RespSymp FLASH: 4 Review of Systems Review of Systems All systems reviewed & are unremarkable except as noted in HPI and below Constitutional Reports as per HPI, Denies chills and Denies fever(s) Eyes Denies blurry vision ENT Denies dizziness, Denies sore throat and Denies throat swelling Cardiovascular Denies chest pain and Reports dyspnea Respiratory Denies cough and Reports dyspnea Gastrointestinal Denies abdominal pain, Denies diarrhea and Denies vomiting Genitourinary Denies hematuria and Denies dysuria Musculoskeletal Denies back pain and Denies numbness Integumentary/Breasts Denies lesions and Denies rash Neurologic Denies dizziness, Denies focal weakness and Denies numbness Allergic/Immunologic Denies throat swelling PFSH Social History Smoking/Tobacco Use Status: Former Tobacco Use Quit Date: 06/05/98 Tobacco: How many years used: 30 Alcohol Intake: former Drug use: Never 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 Adopted: No Foster care: No Household members: family Housing: house Number of Children: 0 Communication Needs: None current occupation: not working Current gender identity: male What type of physical activity do you participate in: none and other Details: started lifting weights Frequency: daily Seatbelt use: always Drive intox or ride w/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 Exam Const General: cooperative, no acute distress and anxious HENMT Head: normal to inspection Face and sinus: normal facial exam Eyes General: appearance normal, both eyes and all related structures EOM: EOM intact bilaterally Neck Neck: normal visual inspection and No submandibular swelling Lymphatic: no lymphadenopathy noted Chest Chest: normal inspection of the chest and no tenderness Resp Effort & Inspection: normal respiratory effort and able to speak in complete sentences Auscultation: clear to auscultation bilaterally Cardio Rate: regular rate Rhythm: regular rhythm GI Inspection: normal to inspection Palpation: soft, not firm, not rigid and nontender Auscultation: normal bowel sounds Skin General skin exam: no rashes or lesions noted Neuro General: alert, awake and oriented x3 Cognition: normal cognition Speech: speech normal Motor: muscle tone normal throughout Sensory Exam: no sensory deficits noted Extrem General: normal to inspection, full ROM and no edema Psych Appearance: grossly normal Mental Status: mental status grossly normal Speech and Movement: speech and movement normal Affect: anxious affect Course Vital Signs Temperature 98.2 F 11/03/18 17:38 Pulse 97 H 11/03/18 17:38 Respiratory Rate 20 11/03/18 17:38 Blood Pressure 139/87 11/03/18 17:38 Pulse Oximetry 98 11/03/18 17:38 Temperature 98.2 F 11/03/18 17:38 Temperature Source Temporal Artery Scan 11/03/18 17:38 Pulse 97 H 11/03/18 17:38 Respiratory Rate 20 11/03/18 17:38 Respiratory Effort Non-Labored 11/03/18 17:38 Blood Pressure 139/87 11/03/18 17:38 Pulse Oximetry 98 11/03/18 17:38 Oxygen Delivery Method Room Air 11/03/18 17:38 Oxygen Flow Rate 0 11/03/18 17:38
[2018-11-03 18:46] VITALS: BP 139/87; PULSE 97; RESP 20; TEMP 36.8; O2SAT 98
== END 2018-11-03 18:46 | disposition home or self-care (01) ==
PROVIDERS: Emergency Provider Physician Assistant; PCP Internal Medicine
DX: F41.8 Other specified anxiety disorders (principal); R06.02 Shortness of breath; J44.9 Chronic obstructive pulmonary disease, unspecified; R91.8 Other nonspecific abnormal finding of lung field
CPT/HCPCS: 99283

== ENCOUNTER 2018-11-04 05:06 | Outpatient (RCR) | payer MEDICAID, SELFPAY | END 2018-12-02 23:59 | disposition home or self-care (01) | LOC: PRC 05:06 | PROVIDERS: PCP Internal Medicine; Visit Provider Family Medicine | DX: J44.9 Chronic obstructive pulmonary disease, unspecified (principal); Z51.89 Encounter for other specified aftercare | CPT/HCPCS: G0424 ==

== ENCOUNTER 2018-11-04 16:52 | Emergency (ER) | payer MEDICAID, SELFPAY ==
[2018-11-04 17:15] VITALS: BP 180/150; PULSE 88; RESP 16; TEMP 36.8; O2SAT 96
[2018-11-04 17:24] VITALS: BP 125/85; PULSE 100
[2018-11-04 17:28] VITALS: RESP 18
--- NOTE | 2018-11-04 17:54 | W.ED.GENAD ---
Discharge Plan Disposition Patient Disposition: HOME Condition: Good Discharge Details Chief Complaint: GenMedical Clinical Impression: Anxiety Primary Care Provider: Deborah Chow ED Provider: Angelica Majano Home Meds and New Rx's Prescriptions: Continued quetiapine [Seroquel] 50 mg tablet 50 mg PO QHS Qty: 90 RF: 0 Spiriva with HandiHaler 18 mcg capsule, w/inhalation device 1 cap Inhalation DAILY Qty: 90 RF: 0 docusate sodium [Stool Softener] 100 mg tablet 100 mg PO DAILY RF: 0 albuterol sulfate [ProAir HFA] 90 mcg/actuation HFA aerosol inhaler 2 puff Inhalation Q4H PRN PRN (Reason: Shortness Of Breath) Qty: 1 RF: 1 fluoxetine 20 mg tablet 20 mg PO DAILY Qty: 90 RF: 3 quetiapine [Seroquel] 25 mg tablet 25 mg PO BID Qty: 20 RF: 0 OptiChamber Advantage 1 EACH spacer 1 ea Miscellaneous DIRECTED RF: 0 albuterol sulfate 2.5 MG/3 ML solution for nebulization 2.5 mg Inhalation Q4H PRN PRN (Reason: Shortness Of Breath) 30 Days RF: 0 guaifenesin [Mucus Relief] 400 mg Tablet 400 mg PO Q4H PRNRF: 0 pantoprazole 40 mg tablet,delayed release (DR/EC) 40 mg PO DAILY Qty: 90 RF: 3 Symbicort 10.2 GM HFA aerosol inhaler 10.2 gm Inhalation BID Qty: 3 RF: 3 diphenhydramine HCl [Benadryl] 25 MG capsule 25 mg PO Q6H PRNRF: 0 meclizine 25 mg tablet 25 mg PO TID PRN (Reason: dizziness) Qty: 20 RF: 0 Discharge Instructions Instructions: Anxiety (ED) Additional Instructions: Encourage hydration. Continue with medications as previously by advised by primary care. Stop mowing the lawn since this seems to increase your anxiety and respiratory symptoms. Please follow-up with primary care this week for reevaluation. Seek care urgently with new/worsening symptoms Please discuss your severe anxiety further with your surgeon prior to tomorrow's procedure. Referrals: Deborah Chow MD [Primary Care Provider] - Discharge Data Discharge Date/Time-TO BE ENTERED AT DEPARTURE: 11/04/18 18:40 Medical Decision Making Patient is 63-year-old male well-known to myself presenting today for new onset URI. Patient initially told nursing staff that he came in because he was shaking like a leaf. He has been here for this on multiple occasions in the past, this makes the patient's 66th visit to the emergency department this year. Patient is now reporting since being here he feels that he may be coming down with something he endorses a mild sore throat. Patient appears to be at his baseline. Blood pressures when he was initially noted to be 180/150 but I was questioning if this is a miss read on the part of the machine as immediately after the nurse rechecked it was found to be 125/80. Vital signs are within normal limits. Patient appears to be at his baseline with no signs of acute illness. No acute abnormalities noted on physical exam. I advised that he may be developing a viral illness and encourage hydration. We discussed when he should return to the emergency room and what matters may be dealt with with his primary care. He has an appoint with them on Monday. All his questions and concerns were addressed and he is in agreement with this plan. HPI General Mode of arrival: ambulatory. Date/Time Provider Initiated Documentation: 11/04/18 17:53. Limitations to Documentation: no limitations. Information obtained by: patient and RN notes reviewed. History of Present Illness 63 year old M presents to the emergency department with the chief complaint of URI, described as mild, Quality is described as aching, and is localized to the mouth (sore throat). Patient reports no radiation. Patient started experiencing this minute(s) and it has been constant. No relieving factors improve symptom(s), No exacerbating factors reported . Patient notes denies chest pain, cough, fever/chills, headaches, loss of appetite, nausea/vomiting, rash and shortness of breath. Patient did receive the following treatments prior to arrival, none Related Data Home Medications Medication Instructions Recorded Confirmed [employer] Advantage kit 10/15/17 11/02/18 albuterol sulfate 2.5 mg INHALATION Q4H PRN PRN 30 10/15/17 11/04/18 Days ml albuterol sulfate HFA 90 2 puff INHALATION Q4H PRN PRN #1 07/02/18 11/04/18 mcg/actuation aerosol inhaler inh guaifenesin [Mucus Relief] 400 mg PO Q4H PRN 09/09/18 11/04/18 Symbicort 10.2 gm INHALATION BID #3 inhaler 09/21/18 11/04/18 pantoprazole 40 mg PO DAILY #90 tab 09/21/18 11/04/18 quetiapine 50 mg tablet 50 mg PO QHS #90 tab 09/26/18 11/04/18 tiotropium bromide 18 mcg capsule 1 cap INHALATION DAILY #90 inh 09/26/18 11/04/18 with inhalation device fluoxetine 20 mg tablet 20 mg PO DAILY #90 tab-cap 10/02/18 11/04/18 quetiapine 25 mg tablet 25 mg PO BID #20 tab 10/17/18 11/04/18 meclizine 25 mg PO TID PRN #20 tab 10/23/18 11/02/18 docusate sodium 100 mg tablet 100 mg PO DAILY 10/30/18 11/04/18 diphenhydramine HCl [Benadryl] 25 mg PO Q6H PRN 11/01/18 11/04/18 Previous Rx's Medication Instructions [facility] Ad[facility] 10/15/17 albuterol sulfate 2.5 mg INHALATION Q4H PRN PRN 30 10/15/17 Days ml albuterol sulfate HFA 90 2 puff INHALATION Q4H PRN PRN #1 07/02/18 mcg/actuation aerosol inhaler inh Symbicort 10.2 gm INHALATION BID #3 inhaler 09/21/18 pantoprazole 40 mg PO DAILY #90 tab 09/21/18 quetiapine 50 mg tablet 50 mg PO QHS #90 tab 09/26/18 tiotropium bromide 18 mcg capsule 1 cap INHALATION DAILY #90 inh 09/26/18 with inhalation device fluoxetine 20 mg tablet 20 mg PO DAILY #90 tab-cap 10/02/18 quetiapine 25 mg tablet 25 mg PO BID #20 tab 10/17/18 meclizine 25 mg PO TID PRN #20 tab 10/23/18 Allergies Allergy/AdvReac Type Severity Reaction Status Date / Time No Known Allergies Allergy Verified 11/02/18 17:33 General Stated Complaint: GenMedical FLASH: 4 Review of Systems Constitutional Reports as per HPI, Denies chills, Reports fatigue, Denies fever(s) and Denies headache(s) Eyes Reports as per HPI, Denies eye discharge and Denies irritation ENT Reports as per HPI, Denies headache(s) and Reports sore throat Cardiovascular Reports as per HPI, Denies chest pain and Denies dyspnea Respiratory Reports as per HPI and Denies dyspnea Gastrointestinal Reports as per HPI, Denies abdominal pain, Denies change in bowel habits, Denies nausea and Denies vomiting Integumentary/Breasts Reports as per HPI and Denies rash Neurologic Reports as per HPI and Denies headache(s) Endocrine Reports fatigue [facility] Social History Smoking/Tobacco Use Status: Former Tobacco Use Tobacco: How many years used: 30 Alcohol Intake: former Drug use: Never 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 Adopted: No Foster care: No Household members: family Housing: house Number of Children: 0 Communication Needs: None current occupation: not working Current gender identity: male What type of physical activity do you participate in: none and other Details: started lifting weights Frequency: daily Seatbelt use: always Drive intox or ride w/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 Exam Const General: cooperative, comfortable, no acute distress, well developed, well groomed and ill appearing chronically Nutritional Appearance: well nourished and thin Orientation: alert and awake [facility] Head: normal to inspection, normocephalic and atraumatic Ears: hearing grossly normal bilaterally, external ears normal and TM's normal bilaterally General nose exam: external nose normal and nares normal Face and sinus: normal facial exam, sinuses nontender and face symmetric Mouth: oral mucosae normal, lip normal, tongue normal, oropharynx normal and moist mucous membranes Teeth and gingiva: dentition normal Throat: posterior oropharynx normal, tonsils normal and uvula midline Eyes General: appearance normal, both eyes and all related structures Neck Neck: normal visual inspection, full ROM, no lymphadenopathy and no meningeal signs Resp Effort & Inspection: normal respiratory effort, able to speak in complete sentences and no respiratory distress Auscultation: clear to auscultation bilaterally, no rales, no rhonchi and no wheezes Cardio Rate: regular rate Rhythm: regular rhythm Heart Sounds: S1 normal and S2 normal Skin General skin exam: no rashes or lesions noted Neuro General: alert and awake Cognition: normal cognition Speech: speech normal Gait: normal gait Psych Appearance: grossly normal and well kempt Mental Status: mental status grossly normal Speech and Movement: speech and movement normal Course Vital Signs Temperature 36.8 C 11/04/18 17:15 Pulse 88 11/04/18 17:15 Respiratory Rate 16 11/04/18 17:15 Blood Pressure 180/150 H 11/04/18 17:15 Pulse Oximetry 96 11/04/18 17:15 Temperature 36.8 C 11/04/18 17:15 Temperature Source Temporal Artery Scan 11/04/18 17:24 Pulse 100 H 11/04/18 17:24 Respiratory Rate 18 11/04/18 17:28 Respiratory Effort Non-Labored 11/04/18 17:28 Respiratory Depth Normal 11/04/18 17:28 Blood Pressure 125/85 11/04/18 17:24 Blood Pressure Position Sitting 11/04/18 17:15 Pulse Oximetry 96 11/04/18 17:15 Oxygen Delivery Method Room Air 11/04/18 17:15 Oxygen Flow Rate 0 11/04/18 17:15 Comment 11/04/18 17:15
[2018-11-04 18:34] VITALS: BP 125/80; PULSE 89; RESP 17; TEMP 36.8; O2SAT 96
--- NOTE | 2018-11-05 00:37 | ED.GENADUL_ITS ---
Discharge Plan Disposition Patient Disposition: HOME Condition: Good Discharge Details Chief Complaint: GenMedical Clinical Impression: Anxiety Primary Care Provider: Deborah Chow ED Provider: Angelica Majano Home Meds and New Rx's Prescriptions: Continued quetiapine [Seroquel] 50 mg tablet 50 mg PO QHS Qty: 90 RF: 0 Spiriva with HandiHaler 18 mcg capsule, w/inhalation device 1 cap Inhalation DAILY Qty: 90 RF: 0 docusate sodium [Stool Softener] 100 mg tablet 100 mg PO DAILY RF: 0 albuterol sulfate [ProAir HFA] 90 mcg/actuation HFA aerosol inhaler 2 puff Inhalation Q4H PRN PRN (Reason: Shortness Of Breath) Qty: 1 RF: 1 fluoxetine 20 mg tablet 20 mg PO DAILY Qty: 90 RF: 3 quetiapine [Seroquel] 25 mg tablet 25 mg PO BID Qty: 20 RF: 0 OptiChamber Advantage 1 EACH spacer 1 ea Miscellaneous DIRECTED RF: 0 albuterol sulfate 2.5 MG/3 ML solution for nebulization 2.5 mg Inhalation Q4H PRN PRN (Reason: Shortness Of Breath) 30 Days RF: 0 guaifenesin [Mucus Relief] 400 mg Tablet 400 mg PO Q4H PRNRF: 0 pantoprazole 40 mg tablet,delayed release (DR/EC) 40 mg PO DAILY Qty: 90 RF: 3 Symbicort 10.2 GM HFA aerosol inhaler 10.2 gm Inhalation BID Qty: 3 RF: 3 diphenhydramine HCl [Benadryl] 25 MG capsule 25 mg PO Q6H PRNRF: 0 meclizine 25 mg tablet 25 mg PO TID PRN (Reason: dizziness) Qty: 20 RF: 0 Discharge Instructions Instructions: Anxiety (ED) Additional Instructions: Encourage hydration. Continue with medications as previously by advised by primary care. Stop mowing the lawn since this seems to increase your anxiety and respiratory symptoms. Please follow-up with primary care this week for reevaluation. Seek care urgently with new/worsening symptoms Please discuss your severe anxiety further with your surgeon prior to tomorrow's procedure. Referrals: Deborah Chow MD [Primary Care Provider] - Discharge Data Discharge Date/Time-TO BE ENTERED AT DEPARTURE: 11/04/18 18:40 Medical Decision Making Patient is 63-year-old male well-known to myself presenting today for new onset URI. Patient initially told nursing staff that he came in because he was shaking like a leaf. He has been here for this on multiple occasions in the past, this makes the patient's 66th visit to the emergency department this year. Patient is now reporting since being here he feels that he may be coming down with something he endorses a mild sore throat. Patient appears to be at his baseline. Blood pressures when he was initially noted to be 180/150 but I was questioning if this is a miss read on the part of the machine as immediately after the nurse rechecked it was found to be 125/80. Vital signs are within normal limits. Patient appears to be at his baseline with no signs of acute illness. No acute abnormalities noted on physical exam. I advised that he may be developing a viral illness and encourage hydration. We discussed when he should return to the emergency room and what matters may be dealt with with his primary care. He has an appoint with them on Monday. All his questions and concerns were addressed and he is in agreement with this plan. HPI General Mode of arrival: ambulatory . Date/Time Provider Initiated Documentation: 11/04/18 17:53 . Limitations to Documentation: no limitations . Information obtained by: patient and RN notes reviewed . History of Present Illness 63 year old M presents to the emergency department with the chief complaint of URI, described as mild, Quality is described as aching, and is localized to the mouth (sore throat). Patient reports no radiation. Patient started experiencing this minute(s) and it has been constant. No relieving factors improve symptom(s), No exacerbating factors reported . Patient notes denies chest pain, cough, fever/chills, headaches, loss of appetite, nausea/vomiting, rash and shortness of breath. Patient did receive the following treatments prior to arrival, none Related Data Home Medications Medication Instructions Recorded Confirmed Geeta Advantage kit 10/15/17 11/02/18 albuterol sulfate 2.5 mg INHALATION Q4H PRN PRN 30 10/15/17 11/04/18 Days ml albuterol sulfate HFA 90 2 puff INHALATION Q4H PRN PRN #1 07/02/18 11/04/18 mcg/actuation aerosol inhaler inh guaifenesin [Mucus Relief] 400 mg PO Q4H PRN 09/09/18 11/04/18 Symbicort 10.2 gm INHALATION BID #3 inhaler 09/21/18 11/04/18 pantoprazole 40 mg PO DAILY #90 tab 09/21/18 11/04/18 quetiapine 50 mg tablet 50 mg PO QHS #90 tab 09/26/18 11/04/18 tiotropium bromide 18 mcg capsule 1 cap INHALATION DAILY #90 inh 09/26/18 11/04/18 with inhalation device fluoxetine 20 mg tablet 20 mg PO DAILY #90 tab-cap 10/02/18 11/04/18 quetiapine 25 mg tablet 25 mg PO BID #20 tab 10/17/18 11/04/18 meclizine 25 mg PO TID PRN #20 tab 10/23/18 11/02/18 docusate sodium 100 mg tablet 100 mg PO DAILY 10/30/18 11/04/18 diphenhydramine HCl [Benadryl] 25 mg PO Q6H PRN 11/01/18 11/04/18 Previous Rx's Medication Instructions [facility] 10/15/17 albuterol sulfate 2.5 mg INHALATION Q4H PRN PRN 30 10/15/17 Days ml albuterol sulfate HFA 90 2 puff INHALATION Q4H PRN PRN #1 07/02/18 mcg/actuation aerosol inhaler inh Symbicort 10.2 gm INHALATION BID #3 inhaler 09/21/18 pantoprazole 40 mg PO DAILY #90 tab 09/21/18 quetiapine 50 mg tablet 50 mg PO QHS #90 tab 09/26/18 tiotropium bromide 18 mcg capsule 1 cap INHALATION DAILY #90 inh 09/26/18 with inhalation device fluoxetine 20 mg tablet 20 mg PO DAILY #90 tab-cap 10/02/18 quetiapine 25 mg tablet 25 mg PO BID #20 tab 10/17/18 meclizine 25 mg PO TID PRN #20 tab 10/23/18 Allergies Allergy/AdvReac Type Severity Reaction Status Date / Time No Known Allergies Allergy Verified 11/02/18 17:33 General Stated Complaint: GenMedical FLASH: 4 Review of Systems Constitutional Reports as per HPI, Denies chills, Reports fatigue, Denies fever(s) and Denies headache(s) Eyes Reports as per HPI, Denies eye discharge and Denies irritation ENT Reports as per HPI, Denies headache(s) and Reports sore throat Cardiovascular Reports as per HPI, Denies chest pain and Denies dyspnea Respiratory Reports as per HPI and Denies dyspnea Gastrointestinal Reports as per HPI, Denies abdominal pain, Denies change in bowel habits, Denies nausea and Denies vomiting Integumentary/Breasts Reports as per HPI and Denies rash Neurologic Reports as per HPI and Denies headache(s) Endocrine Reports fatigue [facility] Social History Smoking/Tobacco Use Status: Former Tobacco Use Tobacco: How many years used: 30 Alcohol Intake: former Drug use: Never 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 Adopted: No Foster care: No Household members: family Housing: house Number of Children: 0 Communication Needs: None current occupation: not working Current gender identity: male What type of physical activity do you participate in: none and other Details: started lifting weights Frequency: daily Seatbelt use: always Drive intox or ride w/intox jukebox route 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 Exam Const General: cooperative, comfortable, no acute distress, well developed, well groomed and ill appearing chronically Nutritional Appearance: well nourished and thin Orientation: alert and awake [facility] Head: normal to inspection, normocephalic and atraumatic Ears: hearing grossly normal bilaterally, external ears normal and TM's normal bilaterally General nose exam: external nose normal and nares normal Face and sinus: normal facial exam, sinuses nontender and face symmetric Mouth: oral mucosae normal, lip normal, tongue normal, oropharynx normal and moist mucous membranes Teeth and gingiva: dentition normal Throat: posterior oropharynx normal, tonsils normal and uvula midline Eyes General: appearance normal, both eyes and all related structures Neck Neck: normal visual inspection, full ROM, no lymphadenopathy and no meningeal signs Resp Effort & Inspection: normal respiratory effort, able to speak in complete sentences and no respiratory distress Auscultation: clear to auscultation bilaterally, no rales, no rhonchi and no wheezes Cardio Rate: regular rate Rhythm: regular rhythm Heart Sounds: S1 normal and S2 normal Skin General skin exam: no rashes or lesions noted Neuro General: alert and awake Cognition: normal cognition Speech: speech normal Gait: normal gait Psych Appearance: grossly normal and well kempt Mental Status: mental status grossly normal Speech and Movement: speech and movement normal Course Vital Signs Temperature 36.8 C 11/04/18 17:15 Pulse 88 11/04/18 17:15 Respiratory Rate 16 11/04/18 17:15 Blood Pressure 180/150 H 11/04/18 17:15 Pulse Oximetry 96 11/04/18 17:15 Temperature 36.8 C 11/04/18 17:15 Temperature Source Temporal Artery Scan 11/04/18 17:24 Pulse 100 H 11/04/18 17:24 Respiratory Rate 18 11/04/18 17:28 Respiratory Effort Non-Labored 11/04/18 17:28 Respiratory Depth Normal 11/04/18 17:28 Blood Pressure 125/85 11/04/18 17:24 Blood Pressure Position Sitting 11/04/18 17:15 Pulse Oximetry 96 11/04/18 17:15 Oxygen Delivery Method Room Air 11/04/18 17:15 Oxygen Flow Rate 0 11/04/18 17:15 Comment 11/04/18 17:15
== END 2018-11-04 18:40 | disposition home or self-care (01) ==
PROVIDERS: Emergency Provider Physician Assistant; PCP Internal Medicine
DX: F41.9 Anxiety disorder, unspecified (principal)
CPT/HCPCS: 99282

== ENCOUNTER 2018-11-05 10:37 | Day surgery (SDC) | payer MEDICAID, SELFPAY ==
--- NOTE | 2018-11-04 18:35 | W.PIPPEYE ---
History of Present Illness Chief Complaint: Progressive decreased vision, left eye Narrative: The patient is a 63-year-old male with history of progressive decreased vision in both eyes at both distance and near, left eye worse than right. On examination he was noted to have a dense nuclear cataract in the left eye with best corrected vision of 20/200. The option of cataract surgery was offered to the patient and he wished to proceed. NOTE: The Chief Complaint, HPI, Past Medical History, Past Surgical History, Family History, Social History, Medications, and complete Ophthalmic Exam with detailed Assessment and Plan have already been documented in the patient's outpatient ophthalmic record and are not covered again in detail here. [facility] Social History Smoking/Tobacco Use Status: Former Tobacco Use Tobacco: How many years used: 30 Alcohol Intake: former Drug use: Never 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 Adopted: No Foster care: No Household members: family Housing: house Number of Children: 0 Communication Needs: None current occupation: not working Current gender identity: male What type of physical activity do you participate in: none and other Details: started lifting weights Frequency: daily Seatbelt use: always Drive intox or ride w/intox flatbed 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 Meds Home Medications Medication Instructions Recorded Confirmed Type [employer] Advantage kit 10/15/17 11/02/18 Rx albuterol sulfate 2.5 mg INHALATION Q4H PRN PRN 30 10/15/17 11/04/18 Rx Days ml albuterol sulfate HFA 90 2 puff INHALATION Q4H PRN PRN #1 07/02/18 11/04/18 Rx mcg/actuation aerosol inhaler inh guaifenesin [Mucus Relief] 400 mg PO Q4H PRN 09/09/18 11/04/18 History Symbicort 10.2 gm INHALATION BID #3 inhaler 09/21/18 11/04/18 Rx pantoprazole 40 mg PO DAILY #90 tab 09/21/18 11/04/18 Rx quetiapine 50 mg tablet 50 mg PO QHS #90 tab 09/26/18 11/04/18 Rx tiotropium bromide 18 mcg capsule 1 cap INHALATION DAILY #90 inh 09/26/18 11/04/18 Rx with inhalation device fluoxetine 20 mg tablet 20 mg PO DAILY #90 tab-cap 10/02/18 11/04/18 Rx quetiapine 25 mg tablet 25 mg PO BID #20 tab 10/17/18 11/04/18 Rx meclizine 25 mg PO TID PRN #20 tab 10/23/18 11/02/18 Rx docusate sodium 100 mg tablet 100 mg PO DAILY 10/30/18 11/04/18 History diphenhydramine HCl [Benadryl] 25 mg PO Q6H PRN 11/01/18 11/04/18 History Allergies Allergy/AdvReac Type Severity Reaction Status Date / Time No Known Allergies Allergy Verified 11/02/18 17:33 Exam OCULAR EXAM:: Most recent ocular examination is significant for corrected visual acuity of 20/50 OD, 20/200 OS. Intraocular pressure is 11 OD, 12 OS. Extraocular motility is normal. Slit-lamp examination is significant for pupils dilating to 5 mm OU.2-3+ nuclear cataract is present OD. 3+ advanced yellow-white cataract is present OS. Dilated funduscopic examination shows disc cupping of 0.2 OU with normal vessels, macula, peripheral retina and vitreous. BRIGHTNESS ACUITY TESTING (BAT):: Brightness acuity testing of the left eye office is 20/200. Unable on low medium and high setting. Assessment and Plan (1) Nuclear sclerotic cataract of left eye: Current visit: Yes Status: Acute Assessment: Visually significant cataract, left eye. Plan: Cataract extraction with intraocular lens implantation, left eye Note: NOTE:: The details of the planned surgery, including the risks, indications,limitations,expectations,outcome and possible complications were explained to the patient. The patient understands the complications including, but not limited to: infection, hemorrhage, posterior dislocation of the lens or nuclear fragments which may require the intervention of a vitreoretinal surgeon, possible loss of the eye, or from anesthetic complications. The patient has been made aware of the option of not having surgery, that vision following surgery may not be equal to that prior to surgery, and that the planned surgery may not achieve the intended results. Following this discussion, which the patient appeared to understand, the patient wishes to proceed with cataract surgery with lens implantation of the affected eye to improve and maximize vision.
--- NOTE | 2018-11-04 18:38 | POEE_ITS ---
History of Present Illness Chief Complaint: Progressive decreased vision, left eye Narrative: The patient is a 63-year-old male with history of progressive decreased vision in both eyes at both distance and near, left eye worse than right. On examination he was noted to have a dense nuclear cataract in the left eye with best corrected vision of 20/200. The option of cataract surgery was offered to the patient and he wished to proceed. NOTE: The Chief Complaint, HPI, Past Medical History, Past Surgical History, Family History, Social History, Medications, and complete Ophthalmic Exam with detailed Assessment and Plan have already been documented in the patient's outpatient ophthalmic record and are not covered again in detail here. 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 Adopted: No Foster care: No Household members: family Housing: house Number of Children: 0 Communication Needs: None current occupation: not working Current gender identity: male What type of physical activity do you participate in: none and other Details: started lifting weights Frequency: daily Seatbelt use: always Drive intox or ride w/intox helper/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 Meds Home Medications Medication Instructions Recorded Confirmed Type Geeta Advantage kit 10/15/17 11/02/18 Rx albuterol sulfate 2.5 mg INHALATION Q4H PRN PRN 30 10/15/17 11/04/18 Rx Days ml albuterol sulfate HFA 90 2 puff INHALATION Q4H PRN PRN #1 07/02/18 11/04/18 Rx mcg/actuation aerosol inhaler inh guaifenesin [Mucus Relief] 400 mg PO Q4H PRN 09/09/18 11/04/18 History Symbicort 10.2 gm INHALATION BID #3 inhaler 09/21/18 11/04/18 Rx pantoprazole 40 mg PO DAILY #90 tab 09/21/18 11/04/18 Rx quetiapine 50 mg tablet 50 mg PO QHS #90 tab 09/26/18 11/04/18 Rx tiotropium bromide 18 mcg capsule 1 cap INHALATION DAILY #90 inh 09/26/18 11/04/18 Rx with inhalation device fluoxetine 20 mg tablet 20 mg PO DAILY #90 tab-cap 10/02/18 11/04/18 Rx quetiapine 25 mg tablet 25 mg PO BID #20 tab 10/17/18 11/04/18 Rx meclizine 25 mg PO TID PRN #20 tab 10/23/18 11/02/18 Rx docusate sodium 100 mg tablet 100 mg PO DAILY 10/30/18 11/04/18 History diphenhydramine HCl [Benadryl] 25 mg PO Q6H PRN 11/01/18 11/04/18 History Allergies Allergy/AdvReac Type Severity Reaction Status Date / Time No Known Allergies Allergy Verified 11/02/18 17:33 Exam OCULAR EXAM:: Most recent ocular examination is significant for corrected visual acuity of 20/50 OD, 20/200 OS. Intraocular pressure is 11 OD, 12 OS. Extraocular motility is normal. Slit-lamp examination is significant for pupils dilating to 5 mm OU.2-3+ nuclear cataract is present OD. 3+ advanced yellow- white cataract is present OS. Dilated funduscopic examination shows disc cupping of 0.2 OU with normal vessels, macula, peripheral retina and vitreous. BRIGHTNESS ACUITY TESTING (BAT):: Brightness acuity testing of the left eye office is 20/200. Unable on low medium and high setting. Assessment and Plan (1) Nuclear sclerotic cataract of left eye: Current visit: Yes Status: Acute Assessment: Visually significant cataract, left eye. Plan: Cataract extraction with intraocular lens implantation, left eye Note: NOTE:: The details of the planned surgery, including the risks, indications,limitations,expectations,outcome and possible complications were explained to the patient. The patient understands the complications including, but not limited to: infection, hemorrhage, posterior dislocation of the lens or nuclear fragments which may require the intervention of a vitreoretinal surgeon, possible loss of the eye, or from anesthetic complications. The patient has been made aware of the option of not having surgery, that vision following surgery may not be equal to that prior to surgery, and that the planned surgery may not achieve the intended results. Following this discussion, which the patient appeared to understand, the patient wishes to proceed with cataract surgery with lens implantation of the affected eye to improve and maximize vision.
[2018-11-05 10:52] VITALS: BP 115/80; PULSE 84; RESP 16; TEMP 37.1; O2SAT 97
[2018-11-05] MEDS: Tropicam./Phenyleph. (1/2.5%) 5 ML BTL OS ×5 (11:01→11:25)
[2018-11-05] MEDS: Tetracaine 0.5% 4 ML BTL OS ×6 (11:01→12:45)
[2018-11-05] MEDS: Trypan Blue 0.06% 0.5 ML SYR (12:45)
[2018-11-05] MEDS: Lidocaine 1% Pres-Free 5 ML VIAL (12:45)
[2018-11-05] MEDS: Duovisc Viscoelastic System EACH 1 EACH (12:45)
[2018-11-05] MEDS: Balanced Salt Soln.-PLUS 500 ML BAG (12:45)
[2018-11-05] MEDS: Lidocaine 2% Jelly 6 ML SYR (12:45)
[2018-11-05] MEDS: Povidone-Iodine Ophth 30 ML BTL (13:09)
--- NOTE | 2018-11-05 13:14 | W.PM.DSUDISC ---
Discharge Plan Disposition Patient Disposition: HOME Condition: Stable Discharge Details Attending Provider: Iggy Woodard Primary Care Provider: Deborah Chow Home Meds and New Rx's Prescriptions: No Action quetiapine [Seroquel] 50 mg tablet 50 mg PO QHS Qty: 90 RF: 0 Spiriva with HandiHaler 18 mcg capsule, w/inhalation device 1 cap Inhalation DAILY Qty: 90 RF: 0 docusate sodium [Stool Softener] 100 mg tablet 100 mg PO DAILY RF: 0 albuterol sulfate [ProAir HFA] 90 mcg/actuation HFA aerosol inhaler 2 puff Inhalation Q4H PRN PRN (Reason: Shortness Of Breath) Qty: 1 RF: 1 fluoxetine 20 mg tablet 20 mg PO DAILY Qty: 90 RF: 3 quetiapine [Seroquel] 25 mg tablet 25 mg PO BID Qty: 20 RF: 0 OptiChamber Advantage 1 EACH spacer 1 ea Miscellaneous DIRECTED RF: 0 albuterol sulfate 2.5 MG/3 ML solution for nebulization 2.5 mg Inhalation Q4H PRN PRN (Reason: Shortness Of Breath) 30 Days RF: 0 guaifenesin [Mucus Relief] 400 mg Tablet 400 mg PO Q4H PRNRF: 0 pantoprazole 40 mg tablet,delayed release (DR/EC) 40 mg PO DAILY Qty: 90 RF: 3 Symbicort 10.2 GM HFA aerosol inhaler 10.2 gm Inhalation BID Qty: 3 RF: 3 diphenhydramine HCl [Benadryl] 25 MG capsule 25 mg PO Q6H PRNRF: 0 meclizine 25 mg tablet 25 mg PO TID PRN (Reason: dizziness) Qty: 20 RF: 0 Discharge Instructions Stand Alone Forms: Post-op Topical Cataract, Press Ganey (DSU) Discharge Orders Discharge Orders: Discharge Order (Routine); Ordered 11/05/18 Ordered By: Iggy Woodard DS: Diagnosis Discharge Diagnosis (1) Nuclear sclerotic cataract of left eye: Status: Resolved (2) Status post cataract extraction and insertion of intraocular lens of left eye: Status: Chronic
--- NOTE | 2018-11-05 13:17 | ROE_ITS ---
Date of service: 11/05/18 Time of Service: 13:16 Operative Note PRE-OP DIAGNOSIS: Cataract, left eye, with poor red reflex POST-OP DIAGNOSIS: same PROCEDURE: Cataract extraction using phacoemulsification with intraocular lens implant, left eye, using capsular staining with Vision Blue SURGEON: Iggy Woodard ANESTHESIA: MAC (with local sub-tenon's anesthetic injection) COMPLICATIONS: None Patient was transported to: same day Patient's condition: stable Implants: Flako [employer] Flako / [employer] Tecnis [id number] Indications: Progressive decreased vision due to cataract, left eye, with poor red reflex Procedure Description: CATARACT SURGERY OPERATIVE REPORT PREOPERATIVE DIAGNOSIS: 1. Dense nuclear/cortical/posterior subcapsular cataract, left eye 2. Poor red reflex secondary to #1 POSTOPERATIVE DIAGNOSIS: Same OPERATION: 1. Cataract extraction using phacoemulsification with posterior chamber intraocular lens implant, left eye. 2. Capsular staining with Vision Blue IOL: IOL Licensed Tax Consultant/Model: Flako & Flako / LACHELLE Tecnis [id number] IOL Power: + 20.00 diopters IOL Serial Number: [id number] Optic Diameter: 6.0 mm Haptic/Overall Diameter: 13.0 mm PHACO INFO: EzioRufus [employer]ion Vision System with OZil and Active Fluidics Cumulative Dispersed Energy (CDE): 23.46 seconds SURGEON: Iggy Woodard MD, MINDA [facility]ESTHESIA: [facility] (MAC), with local sub-tenon's anesthetic infiltration COMPLICATIONS: None SPECIMENS: None INDICATIONS FOR PROCEDURE: The patient is a 63-year-old male with history of progressive decreased vision in his left eye. He is noted to have a dense yellow/white nuclear cataract with significant myopic shift. The option of cataract surgery was offered to patient and he wished to proceed. Best corrected vision is 20/200. PROCEDURE: The correct surgical eye was identified and marked as the left eye and the pupil was dilated in the preoperative area using mydriatics and cycloplegics. The dilated pupil size was 6.5mm. Oral sedation was administered in the form of an Imprimis MKO Melt (midazolam 3mg/ketamine 25mg/ondansetron 2mg). The patient was brought to the operating room where cardiopulmonary monitoring was instituted and surgical time-out was performed, confirming the correct operative eye and IOL power. Topical anesthesia was administered and ophthalmic povidone-iodine 5% was instilled into the conjunctival fornices. Lidocaine gel was applied to the cornea and the dusty-ocular area was prepped with Betadine 10% solution and draped in the usual sterile fashion for intraocular surgery, including an aperture drape. A Tegaderm transparent film dressing was cut in half and used to cover the lashes and lid margins. Care was taken to sequester the lashes and lid margins under the Tegaderm dressing. A lid speculum was placed between the lids of the operative eye and the Ted-Sammy operating microscope was maneuvere d into position. Paz scissors were then used to make a conjunctival buttonhole approximately 6mm posterior to the limbus in the inferonasal quadrant. Blunt dissection was carried out to expose bare sclera, and a blunt-tipped sub-tenon?s anesthesia cannula was introduced and passed posteriorly along the globe where non- preserved plain lidocaine was injected into posterior sub-Tenon?s space. A sideport knife was used to make a paracentesis port at the 1:00 position. Air was injected into the anterior chamber, followed by Vision Blue, which was painted over the anterior capsule and then irrigated out using BSS. The anterior chamber was filled with Viscoat. A 2.4mm keratome knife was used to create a half-thickness groove at the limbus and then to construct a three-plane near-clear corneal tunnel extending 2.0mm into clear cornea at the 4:00 position. A flap was raised on the anterior capsule and capsulorhexis forceps were used to complete a continuous curvilinear capsulorhexis of 5.0mm. Balanced salt solution was then used to perform cortical cleaving hydrodissection and nuclear hydrodelineation until the lens could be freely rotated within the capsular bag. The lens nucleus was then disassembled and removed within the capsular bag and iris plane using phacoemulsification. Residual cortical material was removed using the 45-degree angled silicone I/A tip with 0.3mm port. The posterior capsule was carefully polished to remove as much residual lens epithelial cells as safely possible. The capsular bag was then inflated and the anterior chamber deepened with Provisc. The lens implant described above was inserted into the capsular bag using the LACHELLE [place] Injector. A Kuglen hook was used to dial the IOL into position. Residual viscoelastic was then removed first from posterior to the IOL, then from the anterior chamber using the I/A handpiece. The lens implant was noted to center nicely within the capsular bag. The incisions were stromally hydrated, and the anterior chamber was reformed using BSS. Then 0.4cc of moxifloxacin 1.5mg/ml were injected into the capsular bag and anterior chamber. The incisions were checked with a Weck spear and found to be secure. Several drops of ophthalmic povidone-iodine 5% were then applied to the eye followed by two drops of Imprimis combination prednisolone/gatifloxacin/bromfenac solution. The drapes were removed and a clear plastic protective eye shield was placed over the eye. The patient was then returned to Same Day Surgery in stable condition.
[2018-11-05 13:52] VITALS: BP 105/71; PULSE 79; RESP 14; TEMP 36.6; O2SAT 98
== END 2018-11-05 14:10 | disposition home or self-care (01) ==
PROVIDERS: PCP Internal Medicine; Visit Provider Ophthalmology
PROC: (CPT 66982; principal; 2018-11-05 13:30)
DX: H25.811 Combined forms of age-related cataract, right eye (principal); H35.89 Other specified retinal disorders; J44.9 Chronic obstructive pulmonary disease, unspecified; F10.10 Alcohol abuse, uncomplicated
CPT/HCPCS: 66982; V2632

== ENCOUNTER 2018-11-06 04:34 | Emergency (ER) | payer MEDICAID, SELFPAY ==
--- NOTE | 2018-11-06 04:38 | W.ED.GENAD ---
Discharge Plan Disposition Patient Disposition: HOME Condition: Stable Discharge Details Chief Complaint: Anxiety Clinical Impression: Anxiety Primary Care Provider: Deborah Chow ED Provider: Mj Chen Home Meds and New Rx's Prescriptions: No Action quetiapine [Seroquel] 50 mg tablet 50 mg PO QHS Qty: 90 RF: 0 Spiriva with HandiHaler 18 mcg capsule, w/inhalation device 1 cap Inhalation DAILY Qty: 90 RF: 0 docusate sodium [Stool Softener] 100 mg tablet 100 mg PO DAILY RF: 0 albuterol sulfate [ProAir HFA] 90 mcg/actuation HFA aerosol inhaler 2 puff Inhalation Q4H PRN PRN (Reason: Shortness Of Breath) Qty: 1 RF: 1 fluoxetine 20 mg tablet 20 mg PO DAILY Qty: 90 RF: 3 quetiapine [Seroquel] 25 mg tablet 25 mg PO BID Qty: 20 RF: 0 OptiChamber Advantage 1 EACH spacer 1 ea Miscellaneous DIRECTED RF: 0 albuterol sulfate 2.5 MG/3 ML solution for nebulization 2.5 mg Inhalation Q4H PRN PRN (Reason: Shortness Of Breath) 30 Days RF: 0 guaifenesin [Mucus Relief] 400 mg Tablet 400 mg PO Q4H PRNRF: 0 pantoprazole 40 mg tablet,delayed release (DR/EC) 40 mg PO DAILY Qty: 90 RF: 3 Symbicort 10.2 GM HFA aerosol inhaler 10.2 gm Inhalation BID Qty: 3 RF: 3 diphenhydramine HCl [Benadryl] 25 MG capsule 25 mg PO Q6H PRNRF: 0 meclizine 25 mg tablet 25 mg PO TID PRN (Reason: dizziness) Qty: 20 RF: 0 Discharge Instructions Additional Instructions: Follow up with your primary care provider within 1-2 weeks take your medicine as prescribed Medical Decision Making 63 yo male with hx of anxiety, copd, who comes in with feeling anxious as he had no one to talk to. He states his mother is in rehab and he woke up feeling anxious and didn't have anyone to talk to so called ems. He has no comlaints at this time other than feeling anxious with mild shortness of breath which he gets with his anxiety. He is speaking in full sentences without repsiratory distress and stable vitals. He already has meds for his anxiety and given his prior presentations for similar with his anxiety do not feel further w/u indicated at this time. Dneies si/hi. will have him f/u with his pcp Differential Diagnosis anxiety, gerd, copd HPI General Mode of arrival: EMS. Date/Time Provider Initiated Documentation: 11/06/18 04:38. Limitations to Documentation: no limitations. Information obtained by: patient. History of Present Illness 63 year old M presents to the emergency department with the chief complaint of no one to talk to, Patient started experiencing this day(s) (1) and it has been constant. No relieving factors improve symptom(s), No exacerbating factors reported . Patient did receive the following treatments prior to arrival, none Related Data Home Medications Medication Instructions Recorded Confirmed [email or web address] kit 10/15/17 11/05/18 albuterol sulfate 2.5 mg INHALATION Q4H PRN PRN 30 10/15/17 11/05/18 Days ml albuterol sulfate HFA 90 2 puff INHALATION Q4H PRN PRN #1 07/02/18 11/05/18 mcg/actuation aerosol inhaler inh guaifenesin [Mucus Relief] 400 mg PO Q4H PRN 09/09/18 11/05/18 Symbicort 10.2 gm INHALATION BID #3 inhaler 09/21/18 11/05/18 pantoprazole 40 mg PO DAILY #90 tab 09/21/18 11/05/18 quetiapine 50 mg tablet 50 mg PO QHS #90 tab 09/26/18 11/05/18 tiotropium bromide 18 mcg capsule 1 cap INHALATION DAILY #90 inh 09/26/18 11/05/18 with inhalation device fluoxetine 20 mg tablet 20 mg PO DAILY #90 tab-cap 10/02/18 11/05/18 quetiapine 25 mg tablet 25 mg PO BID #20 tab 10/17/18 11/05/18 meclizine 25 mg PO TID PRN #20 tab 10/23/18 11/05/18 docusate sodium 100 mg tablet 100 mg PO DAILY 10/30/18 11/05/18 diphenhydramine HCl [Benadryl] 25 mg PO Q6H PRN 11/01/18 11/05/18 Previous Rx's Medication Instructions Recorded [email or web address] kit 10/15/17 albuterol sulfate 2.5 mg INHALATION Q4H PRN PRN 30 10/15/17 Days ml albuterol sulfate HFA 90 2 puff INHALATION Q4H PRN PRN #1 07/02/18 mcg/actuation aerosol inhaler inh Symbicort 10.2 gm INHALATION BID #3 inhaler 09/21/18 pantoprazole 40 mg PO DAILY #90 tab 09/21/18 quetiapine 50 mg tablet 50 mg PO QHS #90 tab 09/26/18 tiotropium bromide 18 mcg capsule 1 cap INHALATION DAILY #90 inh 09/26/18 with inhalation device fluoxetine 20 mg tablet 20 mg PO DAILY #90 tab-cap 10/02/18 quetiapine 25 mg tablet 25 mg PO BID #20 tab 10/17/18 meclizine 25 mg PO TID PRN #20 tab 10/23/18 Allergies Allergy/AdvReac Type Severity Reaction Status Date / Time No Known Allergies Allergy Verified 11/02/18 17:33 General FLASH: 4 Review of Systems Review of Systems All systems reviewed & are unremarkable except as noted in HPI and below Constitutional Denies chills, Denies fever(s) and Denies weakness Cardiovascular Denies chest pain and Denies dyspnea Respiratory Denies cough and Denies dyspnea Gastrointestinal Denies abdominal pain, Denies nausea and Denies vomiting Integumentary/Breasts Denies rash Neurologic Denies weakness PFSH Social History Smoking/Tobacco Use Status: Former Tobacco Use Quit Date: 06/05/98 Tobacco: How many years used: 30 Alcohol Intake: former Drug use: Never 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 Adopted: No Foster care: No Household members: family Housing: house Number of Children: 0 Communication Needs: None current occupation: not working Current gender identity: male What type of physical activity do you participate in: none and other Details: started lifting weights Frequency: daily Seatbelt use: always Drive intox or ride w/intox 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 Exam Const General: anxious Orientation: alert HENMT Head: normal to inspection Ears: external ears normal General nose exam: external nose normal Mouth: moist mucous membranes Eyes General: appearance normal, both eyes and all related structures Neck Neck: normal visual inspection Resp Effort & Inspection: normal respiratory effort and able to speak in complete sentences Cardio Rate: regular rate Skin General skin exam: no rashes or lesions noted Neuro General: alert and oriented x3 Extrem General: normal to inspection Psych Mental Status: mental status grossly normal
--- NOTE | 2018-11-06 04:41 | ED.GENADUL_ITS ---
Discharge Plan Disposition Patient Disposition: HOME Condition: Stable Discharge Details Chief Complaint: Anxiety Clinical Impression: Anxiety Primary Care Provider: Deborah Chow ED Provider: Mj Chen Home Meds and New Rx's Prescriptions: No Action quetiapine [Seroquel] 50 mg tablet 50 mg PO QHS Qty: 90 RF: 0 Spiriva with HandiHaler 18 mcg capsule, w/inhalation device 1 cap Inhalation DAILY Qty: 90 RF: 0 docusate sodium [Stool Softener] 100 mg tablet 100 mg PO DAILY RF: 0 albuterol sulfate [ProAir HFA] 90 mcg/actuation HFA aerosol inhaler 2 puff Inhalation Q4H PRN PRN (Reason: Shortness Of Breath) Qty: 1 RF: 1 fluoxetine 20 mg tablet 20 mg PO DAILY Qty: 90 RF: 3 quetiapine [Seroquel] 25 mg tablet 25 mg PO BID Qty: 20 RF: 0 OptiChamber Advantage 1 EACH spacer 1 ea Miscellaneous DIRECTED RF: 0 albuterol sulfate 2.5 MG/3 ML solution for nebulization 2.5 mg Inhalation Q4H PRN PRN (Reason: Shortness Of Breath) 30 Days RF: 0 guaifenesin [Mucus Relief] 400 mg Tablet 400 mg PO Q4H PRNRF: 0 pantoprazole 40 mg tablet,delayed release (DR/EC) 40 mg PO DAILY Qty: 90 RF: 3 Symbicort 10.2 GM HFA aerosol inhaler 10.2 gm Inhalation BID Qty: 3 RF: 3 diphenhydramine HCl [Benadryl] 25 MG capsule 25 mg PO Q6H PRNRF: 0 meclizine 25 mg tablet 25 mg PO TID PRN (Reason: dizziness) Qty: 20 RF: 0 Discharge Instructions Additional Instructions: Follow up with your primary care provider within 1-2 weeks take your medicine as prescribed Medical Decision Making 63 yo male with hx of anxiety, copd, who comes in with feeling anxious as he had no one to talk to. He states his mother is in rehab and he woke up feeling anxious and didn't have anyone to talk to so called ems. He has no comlaints at this time other than feeling anxious with mild shortness of breath which he gets with his anxiety. He is speaking in full sentences without repsiratory distress and stable vitals. He already has meds for his anxiety and given his prior presentations for similar with his anxiety do not feel further w/u indicated at this time. Dneies si/hi. will have him f/u with his pcp Differential Diagnosis anxiety, gerd, copd HPI General Mode of arrival: EMS . Date/Time Provider Initiated Documentation: 11/06/18 04:38 . Limitations to Documentation: no limitations . Information obtained by: patient . History of Present Illness 63 year old M presents to the emergency department with the chief complaint of no one to talk to, Patient started experiencing this day(s) (1) and it has been constant. No relieving factors improve symptom(s), No exacerbating factors reported . Patient did receive the following treatments prior to arrival, none Related Data Home Medications Medication Instructions Recorded Confirmed [employer] kit 10/15/17 11/05/18 albuterol sulfate 2.5 mg INHALATION Q4H PRN PRN 30 10/15/17 11/05/18 Days ml albuterol sulfate HFA 90 2 puff INHALATION Q4H PRN PRN #1 07/02/18 11/05/18 mcg/actuation aerosol inhaler inh guaifenesin [Mucus Relief] 400 mg PO Q4H PRN 09/09/18 11/05/18 Symbicort 10.2 gm INHALATION BID #3 inhaler 09/21/18 11/05/18 pantoprazole 40 mg PO DAILY #90 tab 09/21/18 11/05/18 quetiapine 50 mg tablet 50 mg PO QHS #90 tab 09/26/18 11/05/18 tiotropium bromide 18 mcg capsule 1 cap INHALATION DAILY #90 inh 09/26/18 11/05/18 with inhalation device fluoxetine 20 mg tablet 20 mg PO DAILY #90 tab-cap 10/02/18 11/05/18 quetiapine 25 mg tablet 25 mg PO BID #20 tab 10/17/18 11/05/18 meclizine 25 mg PO TID PRN #20 tab 10/23/18 11/05/18 docusate sodium 100 mg tablet 100 mg PO DAILY 10/30/18 11/05/18 diphenhydramine HCl [Benadryl] 25 mg PO Q6H PRN 11/01/18 11/05/18 Previous Rx's Medication Instructions Recorded [employer] kit 10/15/17 albuterol sulfate 2.5 mg INHALATION Q4H PRN PRN 30 10/15/17 Days ml albuterol sulfate HFA 90 2 puff INHALATION Q4H PRN PRN #1 07/02/18 mcg/actuation aerosol inhaler inh Symbicort 10.2 gm INHALATION BID #3 inhaler 09/21/18 pantoprazole 40 mg PO DAILY #90 tab 09/21/18 quetiapine 50 mg tablet 50 mg PO QHS #90 tab 09/26/18 tiotropium bromide 18 mcg capsule 1 cap INHALATION DAILY #90 inh 09/26/18 with inhalation device fluoxetine 20 mg tablet 20 mg PO DAILY #90 tab-cap 10/02/18 quetiapine 25 mg tablet 25 mg PO BID #20 tab 10/17/18 meclizine 25 mg PO TID PRN #20 tab 10/23/18 Allergies Allergy/AdvReac Type Severity Reaction Status Date / Time No Known Allergies Allergy Verified 11/02/18 17:33 General FLASH: 4 Review of Systems Review of Systems All systems reviewed & are unremarkable except as noted in HPI and below Constitutional Denies chills, Denies fever(s) and Denies weakness Cardiovascular Denies chest pain and Denies dyspnea Respiratory Denies cough and Denies dyspnea Gastrointestinal Denies abdominal pain, Denies nausea and Denies vomiting Integumentary/Breasts Denies rash Neurologic Denies weakness PFSH Social History Smoking/Tobacco Use Status: Former Tobacco Use Quit Date: 06/05/98 Tobacco: How many years used: 30 Alcohol Intake: former Drug use: Never 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 Adopted: No Foster care: No Household members: family Housing: house Number of Children: 0 Communication Needs: None current occupation: not working Current gender identity: male What type of physical activity do you participate in: none and other Details: started lifting weights Frequency: daily Seatbelt use: always Drive intox 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 Exam Const General: anxious Orientation: alert HENMT Head: normal to inspection Ears: external ears normal General nose exam: external nose normal Mouth: moist mucous membranes Eyes General: appearance normal, both eyes and all related structures Neck Neck: normal visual inspection Resp Effort & Inspection: normal respiratory effort and able to speak in complete sentences Cardio Rate: regular rate Skin General skin exam: no rashes or lesions noted Neuro General: alert and oriented x3 Extrem General: normal to inspection Psych Mental Status: mental status grossly normal
[2018-11-06 04:42] VITALS: BP 145/79; PULSE 63; RESP 18; TEMP 36.5; O2SAT 97
== END 2018-11-06 04:52 | disposition home or self-care (01) ==
LOC: ER 04:56
PROVIDERS: Emergency Provider Emergency Medicine; PCP Internal Medicine
DX: F41.9 Anxiety disorder, unspecified (principal); J44.9 Chronic obstructive pulmonary disease, unspecified
CPT/HCPCS: 99283

== ENCOUNTER 2018-11-06 19:37 | Emergency (ER) | payer MEDICAID, SELFPAY ==
--- NOTE | 2018-11-06 19:47 | W.ED.GENAD ---
Discharge Plan Disposition Patient Disposition: HOME Condition: Fair Discharge Details Chief Complaint: GenMedical Clinical Impression: Anxiety, Malignant neoplasm of unspecified part of right bronchus or lung Primary Care Provider: Deborah Chow ED Provider: Angelica Majano Home Meds and New Rx's Prescriptions: Continued quetiapine [Seroquel] 50 mg tablet 50 mg PO QHS Qty: 90 RF: 0 Spiriva with HandiHaler 18 mcg capsule, w/inhalation device 1 cap Inhalation DAILY Qty: 90 RF: 0 docusate sodium [Stool Softener] 100 mg tablet 100 mg PO DAILY RF: 0 albuterol sulfate [ProAir HFA] 90 mcg/actuation HFA aerosol inhaler 2 puff Inhalation Q4H PRN PRN (Reason: Shortness Of Breath) Qty: 1 RF: 1 fluoxetine 20 mg tablet 20 mg PO DAILY Qty: 90 RF: 3 quetiapine [Seroquel] 25 mg tablet 25 mg PO BID Qty: 20 RF: 0 OptiChamber Advantage 1 EACH spacer 1 ea Miscellaneous DIRECTED RF: 0 albuterol sulfate 2.5 MG/3 ML solution for nebulization 2.5 mg Inhalation Q4H PRN PRN (Reason: Shortness Of Breath) 30 Days RF: 0 guaifenesin [Mucus Relief] 400 mg Tablet 400 mg PO Q4H PRNRF: 0 pantoprazole 40 mg tablet,delayed release (DR/EC) 40 mg PO DAILY Qty: 90 RF: 3 Symbicort 10.2 GM HFA aerosol inhaler 10.2 gm Inhalation BID Qty: 3 RF: 3 diphenhydramine HCl [Benadryl] 25 MG capsule 25 mg PO Q6H PRNRF: 0 meclizine 25 mg tablet 25 mg PO TID PRN (Reason: dizziness) Qty: 20 RF: 0 Discharge Instructions Instructions: Anxiety (ED) Additional Instructions: Encourage hydration. Take medications as previously prescribed. If you develop emergent symptoms return to emergency department. Please follow-up with primary care this week Referrals: Deborah Chow MD [Primary Care Provider] - Medical Decision Making Patient is 63-year-old male presents today with vague complaints. Patient is continuing to endorses chronic issues, is concerned that his cancer has progressed he did go to make an appointment with his oncologist today. I advised that we are unable to treat his cancer in the emergency department. Patient is also requesting GI cocktail for bloating he has had since eating a large dinner. Abdomen is soft and benign. No evidence of distended abdomen. He reports no change in bowel or bladder habits peer physical exam is unchanged from previous. We discussed when he should use the emergency department again. Advise follow-up with primary. All his questions and concerns were addressed and he is in agreement this plan. HPI General Mode of arrival: ambulatory. Date/Time Provider Initiated Documentation: 11/06/18 19:46. Limitations to Documentation: no limitations. Information obtained by: RN notes reviewed. HPI Narrative: Patient is 63-year-old male, well-known department, with chief complaint of diffuse body aches and feeling that my cancer is getting worse. Reports he did go to his oncologist today and is requested prompt appointment to discuss possible progression of disease. Patient is also endorsing some epigastric discomfort. Had a very large dinner prior to arrival and is requesting the white liquid that they gave me that numbs my stomach. Denies any chest pain, is not endorsing shortness of breath. No change in bowel or bladder habits. Patient is afebrile Related Data Home Medications Medication Instructions Recorded Confirmed [employer] kit 10/15/17 11/06/18 albuterol sulfate 2.5 mg INHALATION Q4H PRN PRN 30 10/15/17 11/06/18 Days ml albuterol sulfate HFA 90 2 puff INHALATION Q4H PRN PRN #1 07/02/18 11/06/18 mcg/actuation aerosol inhaler inh guaifenesin [Mucus Relief] 400 mg PO Q4H PRN 09/09/18 11/06/18 Symbicort 10.2 gm INHALATION BID #3 inhaler 09/21/18 11/06/18 pantoprazole 40 mg PO DAILY #90 tab 09/21/18 11/06/18 quetiapine 50 mg tablet 50 mg PO QHS #90 tab 09/26/18 11/06/18 tiotropium bromide 18 mcg capsule 1 cap INHALATION DAILY #90 inh 09/26/18 11/06/18 with inhalation device fluoxetine 20 mg tablet 20 mg PO DAILY #90 tab-cap 10/02/18 11/06/18 quetiapine 25 mg tablet 25 mg PO BID #20 tab 10/17/18 11/06/18 meclizine 25 mg PO TID PRN #20 tab 10/23/18 11/06/18 docusate sodium 100 mg tablet 100 mg PO DAILY 10/30/18 11/06/18 diphenhydramine HCl [Benadryl] 25 mg PO Q6H PRN 11/01/18 11/06/18 Previous Rx's Medication Instructions Recorded [employer] kit 10/15/17 albuterol sulfate 2.5 mg INHALATION Q4H PRN PRN 30 10/15/17 Days ml albuterol sulfate HFA 90 2 puff INHALATION Q4H PRN PRN #1 07/02/18 mcg/actuation aerosol inhaler inh Symbicort 10.2 gm INHALATION BID #3 inhaler 09/21/18 pantoprazole 40 mg PO DAILY #90 tab 09/21/18 quetiapine 50 mg tablet 50 mg PO QHS #90 tab 09/26/18 tiotropium bromide 18 mcg capsule 1 cap INHALATION DAILY #90 inh 09/26/18 with inhalation device fluoxetine 20 mg tablet 20 mg PO DAILY #90 tab-cap 10/02/18 quetiapine 25 mg tablet 25 mg PO BID #20 tab 10/17/18 meclizine 25 mg PO TID PRN #20 tab 10/23/18 Allergies Allergy/AdvReac Type Severity Reaction Status Date / Time No Known Allergies Allergy Verified 11/06/18 04:48 General FLASH: 5 Review of Systems Constitutional Reports as per HPI, Denies chills, Reports fatigue (chronic), Denies fever(s), Denies headache(s) and Denies poor appetite ENT Denies headache(s) Cardiovascular Reports as per HPI, Denies chest pain and Denies dyspnea Respiratory Reports as per HPI, Denies cough and Denies dyspnea Gastrointestinal Reports as per HPI and Reports bloating (has felt bloated since dinner) Genitourinary Denies system reviewed and no additional complaints, except as docu (patient denies any change in urinary habits) Musculoskeletal Reports as per HPI and Denies back pain Integumentary/Breasts Reports as per HPI and Denies rash Neurologic Reports as per HPI and Denies headache(s) Endocrine Reports fatigue (chronic) [facility] Medical History COPD (chronic obstructive pulmonary disease) (Chronic) Adjustment disorder with anxiety (Chronic) Alcohol abuse (Chronic) Anxiety (Chronic) Dyspepsia (Chronic) Malignant neoplasm of right lung (Chronic) Tubular adenoma of colon (Inactive) Surgical History History of lung biopsy (Resolved) History of surgery on upper extremity (Resolved) colonoscopy (Inactive 01/19/15) Social History Smoking/Tobacco Use Status: Former Tobacco Use Quit Date: 06/05/98 Tobacco: How many years used: 30 Alcohol Intake: former Drug use: Never 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 Adopted: No Foster care: No Household members: family Housing: house Number of Children: 0 Communication Needs: None current occupation: not working Current gender identity: male What type of physical activity do you participate in: none and other Details: started lifting weights Frequency: daily Seatbelt use: always Drive intox or ride w/intox 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 Exam Const General: cooperative, healthy appearing, comfortable, no acute distress, well developed and anxious Nutritional Appearance: well nourished and thin Orientation: alert and awake HENMT Head: normal to inspection Mouth: moist mucous membranes Resp Effort & Inspection: normal respiratory effort, able to speak in complete sentences and no respiratory distress Auscultation: clear to auscultation bilaterally, no rales, no rhonchi and no wheezes Cardio Rate: regular rate Rhythm: regular rhythm Heart Sounds: S1 normal and S2 normal GI Inspection: normal to inspection, non-distended, no large pannus and no obesity Palpation: soft, no hepatosplenomegaly, not firm, no guarding, no masses, not rigid and nontender Percussion: normal to percussion Auscultation: normal bowel sounds Back/Spine/Pelvis Back: no CVA tenderness Skin General skin exam: no rashes or lesions noted Trauma: no lacerations or abrasions Neuro General: alert and awake Cognition: normal cognition Speech: speech normal Gait: normal gait Psych Appearance: grossly normal and well kempt Mental Status: mental status grossly normal Speech and Movement: speech and movement normal
[2018-11-06 19:48] VITALS: BP 142/93; PULSE 86; RESP 18; TEMP 37; O2SAT 98
--- NOTE | 2018-11-06 19:55 | ED.GENADUL_ITS ---
Discharge Plan Disposition Patient Disposition: HOME Condition: Fair Discharge Details Chief Complaint: GenMedical Clinical Impression: Anxiety, Malignant neoplasm of unspecified part of right bronchus or lung Primary Care Provider: Deborah Chow ED Provider: Angelica Majano Home Meds and New Rx's Prescriptions: Continued quetiapine [Seroquel] 50 mg tablet 50 mg PO QHS Qty: 90 RF: 0 Spiriva with HandiHaler 18 mcg capsule, w/inhalation device 1 cap Inhalation DAILY Qty: 90 RF: 0 docusate sodium [Stool Softener] 100 mg tablet 100 mg PO DAILY RF: 0 albuterol sulfate [ProAir HFA] 90 mcg/actuation HFA aerosol inhaler 2 puff Inhalation Q4H PRN PRN (Reason: Shortness Of Breath) Qty: 1 RF: 1 fluoxetine 20 mg tablet 20 mg PO DAILY Qty: 90 RF: 3 quetiapine [Seroquel] 25 mg tablet 25 mg PO BID Qty: 20 RF: 0 OptiChamber Advantage 1 EACH spacer 1 ea Miscellaneous DIRECTED RF: 0 albuterol sulfate 2.5 MG/3 ML solution for nebulization 2.5 mg Inhalation Q4H PRN PRN (Reason: Shortness Of Breath) 30 Days RF: 0 guaifenesin [Mucus Relief] 400 mg Tablet 400 mg PO Q4H PRNRF: 0 pantoprazole 40 mg tablet,delayed release (DR/EC) 40 mg PO DAILY Qty: 90 RF: 3 Symbicort 10.2 GM HFA aerosol inhaler 10.2 gm Inhalation BID Qty: 3 RF: 3 diphenhydramine HCl [Benadryl] 25 MG capsule 25 mg PO Q6H PRNRF: 0 meclizine 25 mg tablet 25 mg PO TID PRN (Reason: dizziness) Qty: 20 RF: 0 Discharge Instructions Instructions: Anxiety (ED) Additional Instructions: Encourage hydration. Take medications as previously prescribed. If you develop emergent symptoms return to emergency department. Please follow-up with primary care this week Referrals: Deborah Chow MD [Primary Care Provider] - Medical Decision Making Patient is 63-year-old male presents today with vague complaints. Patient is continuing to endorses chronic issues, is concerned that his cancer has progressed he did go to make an appointment with his oncologist today. I advised that we are unable to treat his cancer in the emergency department. Patient is also requesting GI cocktail for bloating he has had since eating a large dinner. Abdomen is soft and benign. No evidence of distended abdomen. He reports no change in bowel or bladder habits peer physical exam is unchanged from previous. We discussed when he should use the emergency department again. Advise follow-up with primary. All his questions and concerns were addressed and he is in agreement this plan. HPI General Mode of arrival: ambulatory . Date/Time Provider Initiated Documentation: 11/06/18 19:46 . Limitations to Documentation: no limitations . Information obtained by: RN notes reviewed . HPI Narrative: Patient is 63-year-old male, well-known department, with chief complaint of diffuse body aches and feeling that my cancer is getting worse. Reports he did go to his oncologist today and is requested prompt appointment to discuss possible progression of disease. Patient is also endorsing some epigastric discomfort. Had a very large dinner prior to arrival and is requesting the white liquid that they gave me that numbs my stomach. Denies any chest pain, is not endorsing shortness of breath. No change in bowel or bladder habits. Patient is afebrile Related Data Home Medications Medication Instructions Recorded Confirmed Diarize Advantage kit 10/15/17 11/06/18 albuterol sulfate 2.5 mg INHALATION Q4H PRN PRN 30 10/15/17 11/06/18 Days ml albuterol sulfate HFA 90 2 puff INHALATION Q4H PRN PRN #1 07/02/18 11/06/18 mcg/actuation aerosol inhaler inh guaifenesin [Mucus Relief] 400 mg PO Q4H PRN 09/09/18 11/06/18 Symbicort 10.2 gm INHALATION BID #3 inhaler 09/21/18 11/06/18 pantoprazole 40 mg PO DAILY #90 tab 09/21/18 11/06/18 quetiapine 50 mg tablet 50 mg PO QHS #90 tab 09/26/18 11/06/18 tiotropium bromide 18 mcg capsule 1 cap INHALATION DAILY #90 inh 09/26/18 11/06/18 with inhalation device fluoxetine 20 mg tablet 20 mg PO DAILY #90 tab-cap 10/02/18 11/06/18 quetiapine 25 mg tablet 25 mg PO BID #20 tab 10/17/18 11/06/18 meclizine 25 mg PO TID PRN #20 tab 10/23/18 11/06/18 docusate sodium 100 mg tablet 100 mg PO DAILY 10/30/18 11/06/18 diphenhydramine HCl [Benadryl] 25 mg PO Q6H PRN 11/01/18 11/06/18 Previous Rx's Medication Instructions Recorded OptiChamber Advantage kit 10/15/17 albuterol sulfate 2.5 mg INHALATION Q4H PRN PRN 30 10/15/17 Days ml albuterol sulfate HFA 90 2 puff INHALATION Q4H PRN PRN #1 07/02/18 mcg/actuation aerosol inhaler inh Symbicort 10.2 gm INHALATION BID #3 inhaler 09/21/18 pantoprazole 40 mg PO DAILY #90 tab 09/21/18 quetiapine 50 mg tablet 50 mg PO QHS #90 tab 09/26/18 tiotropium bromide 18 mcg capsule 1 cap INHALATION DAILY #90 inh 09/26/18 with inhalation device fluoxetine 20 mg tablet 20 mg PO DAILY #90 tab-cap 10/02/18 quetiapine 25 mg tablet 25 mg PO BID #20 tab 10/17/18 meclizine 25 mg PO TID PRN #20 tab 10/23/18 Allergies Allergy/AdvReac Type Severity Reaction Status Date / Time No Known Allergies Allergy Verified 11/06/18 04:48 General FLASH: 5 Review of Systems Constitutional Reports as per HPI, Denies chills, Reports fatigue (chronic), Denies fever(s), Denies headache(s) and Denies poor appetite ENT Denies headache(s) Cardiovascular Reports as per HPI, Denies chest pain and Denies dyspnea Respiratory Reports as per HPI, Denies cough and Denies dyspnea Gastrointestinal Reports as per HPI and Reports bloating (has felt bloated since dinner) Genitourinary Denies system reviewed and no additional complaints, except as docu (patient denies any change in urinary habits) Musculoskeletal Reports as per HPI and Denies back pain Integumentary/Breasts Reports as per HPI and Denies rash Neurologic Reports as per HPI and Denies headache(s) Endocrine Reports fatigue (chronic) [facility] Medical History COPD (chronic obstructive pulmonary disease) (Chronic) Adjustment disorder with anxiety (Chronic) Alcohol abuse (Chronic) Anxiety (Chronic) Dyspepsia (Chronic) Malignant neoplasm of right lung (Chronic) Tubular adenoma of colon (Inactive) Surgical History History of lung biopsy (Resolved) History of surgery on upper extremity (Resolved) colonoscopy (Inactive 01/19/15) Social History Smoking/Tobacco Use Status: Former Tobacco Use Quit Date: 06/05/98 Tobacco: How many years used: 30 Alcohol Intake: former Drug use: Never 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 Adopted: No Foster care: No Household members: family Housing: house Number of Children: 0 Communication Needs: None current occupation: not working Current gender identity: male What type of physical activity do you participate in: none and other Details: started lifting weights Frequency: daily Seatbelt use: always Drive intox or ride w/intox 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 Exam Const General: cooperative, healthy appearing, comfortable, no acute distress, well developed and anxious Nutritional Appearance: well nourished and thin Orientation: alert and awake HENMT Head: normal to inspection Mouth: moist mucous membranes Resp Effort & Inspection: normal respiratory effort, able to speak in complete sentences and no respiratory distress Auscultation: clear to auscultation bilaterally, no rales, no rhonchi and no wheezes Cardio Rate: regular rate Rhythm: regular rhythm Heart Sounds: S1 normal and S2 normal GI Inspection: normal to inspection, non-distended, no large pannus and no obesity Palpation: soft, no hepatosplenomegaly, not firm, no guarding, no masses, not rigid and nontender Percussion: normal to percussion Auscultation: normal bowel sounds Back/Spine/Pelvis Back: no CVA tenderness Skin General skin exam: no rashes or lesions noted Trauma: no lacerations or abrasions Neuro General: alert and awake Cognition: normal cognition Speech: speech normal Gait: normal gait Psych Appearance: grossly normal and well kempt Mental Status: mental status grossly normal Speech and Movement: speech and movement normal
== END 2018-11-06 20:03 | disposition home or self-care (01) ==
PROVIDERS: Emergency Provider Physician Assistant; PCP Internal Medicine
DX: F41.9 Anxiety disorder, unspecified (principal); R14.0 Abdominal distension (gaseous); C34.91 Malignant neoplasm of unspecified part of right bronchus or lung; J44.9 Chronic obstructive pulmonary disease, unspecified
CPT/HCPCS: 99283

== ENCOUNTER 2018-11-07 14:48 | Emergency (ER) | payer MEDICAID, SELFPAY ==
[2018-11-07 14:59] VITALS: BP 125/81; PULSE 82; RESP 16; TEMP 36.5; O2SAT 97
[2018-11-07 15:58] LABS: BE (Venous) 4.5 mmol/L (-3-3); HCO3 (Venous) 29 mmol/L (22-28); O2 Sat (Venous) 64 % (70-80); TCO2 (Venous) 26 mmol/L (22-29); pCO2 (Venous) 44 mm/Hg (34-47); pH (Venous) 7.43 (7.32-7.43); pO2 (Venous) 31 mm/Hg (28-44)
--- NOTE | 2018-11-07 16:01 | ED.GENADUL_ITS ---
Discharge Plan Disposition Patient Disposition: HOME Condition: Good Discharge Details Chief Complaint: PsychEval Clinical Impression: Depression Primary Care Provider: Deborah Chow ED Provider: Pedro Nichole Home Meds and New Rx's Prescriptions: No Action quetiapine [Seroquel] 50 mg tablet 50 mg PO QHS Qty: 90 RF: 0 Spiriva with HandiHaler 18 mcg capsule, w/inhalation device 1 cap Inhalation DAILY Qty: 90 RF: 0 docusate sodium [Stool Softener] 100 mg tablet 100 mg PO DAILY RF: 0 albuterol sulfate [ProAir HFA] 90 mcg/actuation HFA aerosol inhaler 2 puff Inhalation Q4H PRN PRN (Reason: Shortness Of Breath) Qty: 1 RF: 1 fluoxetine 20 mg tablet 20 mg PO DAILY Qty: 90 RF: 3 quetiapine [Seroquel] 25 mg tablet 25 mg PO BID Qty: 20 RF: 0 OptiChamber Advantage 1 EACH spacer 1 ea Miscellaneous DIRECTED RF: 0 albuterol sulfate 2.5 MG/3 ML solution for nebulization 2.5 mg Inhalation Q4H PRN PRN (Reason: Shortness Of Breath) 30 Days RF: 0 guaifenesin [Mucus Relief] 400 mg Tablet 400 mg PO Q4H PRNRF: 0 pantoprazole 40 mg tablet,delayed release (DR/EC) 40 mg PO DAILY Qty: 90 RF: 3 Symbicort 10.2 GM HFA aerosol inhaler 10.2 gm Inhalation BID Qty: 3 RF: 3 diphenhydramine HCl [Benadryl] 25 MG capsule 25 mg PO Q6H PRNRF: 0 meclizine 25 mg tablet 25 mg PO TID PRN (Reason: dizziness) Qty: 20 RF: 0 Discharge Instructions Instructions: Depression (ED) Additional Instructions: If you notice any worsening of your symptoms, or any new symptoms such as vomiting, diarrhea, fever, chills, shortness of breath, chest pain, numbness, weakness, or fainting , please return immediately to the emergency department for reevaluation. Please follow up with your primary care provider as soon as possible for reassessment and reevaluation. As always, it was a pleasure participating in your medical care today. Referrals: Deborah Chow MD [Primary Care Provider] - Discharge Data Discharge Date/Time-TO BE ENTERED AT DEPARTURE: 11/07/18 19:20 Medical Decision Making <Dontrell Rudolph NP - Last Filed: 11/09/18 08:21> Patient presenting the emergency department for chief complaint of suicide attempt. Patient reports that he drank 4 ounces of rubbing alcohol at ap proximately 4 AM. He states since then he has had epigastric discomfort and is felt hot and warm. Patient does state chest pain but mostly points to his epigastrium and when asked about cardiac pain he denies. Physical exam shows a tender epigastrium otherwise normal examination, patient alert and oriented x3, flat affect with no other specific findings noted. Plan to check psychiatric clearance labs and have mental health evaluation. Vital signs were reviewed and remained stable with no acute signs of distress. <Pedro Nichole DO - Last Filed: 11/07/18 19:01> This is a 63-year-old male who was signed out to me by my colleague Shaun Rudolph. Pending laboratory work-up, disposition and psychiatric evaluation. Laboratory work-up has returned and is relatively benign, no significant abnormalities, hemoglobin stable, pH normal, no anion gap. Calcium is slightly low at 7.9. Recommended outpatient supplementation. Urinalysis is negative, tox screen is negative. Patient was seen and assessed by mental health, and at this time after they reviewed the patient denies any plan, suicidal ideation, and states that he feels great and would like to go home. He states that he has lots of things to do need to go home to get these things done, I do not want to harm myself at all. Multiple outpatient services have been updated for the patient. The patient will be discharged with close follow-up. We discussed red flags which to return. I have extensively reviewed the treatment plan and discharge instructions with the patient. I have addressed all patient concerns at this time. The patient was made aware of what symptoms to monitor for that would warrant a return to the emergency department. Discussed the plan with the patient, they demonstrate verbal understanding and agreement with our assessment and plan at this time. HPI <Dontrell Rudolph NP - Last Filed: 11/09/18 08:21> General Mode of arrival: ambulatory . Date/Time Provider Initiated Documentation: 11/07/18 15:01 . Limitations to Documentation: no limitations . Information obtained by: patient and RN notes reviewed . History of Present Illness 63 year old M presents to the emergency department with the chief complaint of Suicide attempt, described as moderate, with intensity rated at 7. Quality is described as aching, and is localized to the abdomen (Epigastric stomach). Patient started experiencing this hour(s) (12) and it has been constant. No exacerbating factors reported . Patient did receive the following treatments prior to arrival, none Related Data Home Medications Medication Instructions Recorded Confirmed OptiChamber Advantage kit 10/15/17 11/06/18 albuterol sulfate 2.5 mg INHALATION Q4H PRN PRN 30 10/15/17 11/07/18 Days ml albuterol sulfate HFA 90 2 puff INHALATION Q4H PRN PRN #1 07/02/18 11/07/18 mcg/actuation aerosol inhaler inh guaifenesin [Mucus Relief] 400 mg PO Q4H PRN 09/09/18 11/07/18 Symbicort 10.2 gm INHALATION BID #3 inhaler 09/21/18 11/07/18 pantoprazole 40 mg PO DAILY #90 tab 09/21/18 11/07/18 quetiapine 50 mg tablet 50 mg PO QHS #90 tab 09/26/18 11/07/18 tiotropium bromide 18 mcg capsule 1 cap INHALATION DAILY #90 inh 09/26/18 11/07/18 with inhalation device fluoxetine 20 mg tablet 20 mg PO DAILY #90 tab-cap 10/02/18 11/07/18 quetiapine 25 mg tablet 25 mg PO BID #20 tab 10/17/18 11/07/18 meclizine 25 mg PO TID PRN #20 tab 10/23/18 11/07/18 docusate sodium 100 mg tablet 100 mg PO DAILY 10/30/18 11/07/18 diphenhydramine HCl [Benadryl] 25 mg PO Q6H PRN 11/01/18 11/07/18 Previous Rx's Medication Instructions Recorded OptiChamber Advantage kit 10/15/17 albuterol sulfate 2.5 mg INHALATION Q4H PRN PRN 30 10/15/17 Days ml albuterol sulfate HFA 90 2 puff INHALATION Q4H PRN PRN #1 07/02/18 mcg/actuation aerosol inhaler inh Symbicort 10.2 gm INHALATION BID #3 inhaler 09/21/18 pantoprazole 40 mg PO DAILY #90 tab 09/21/18 quetiapine 50 mg tablet 50 mg PO QHS #90 tab 09/26/18 tiotropium bromide 18 mcg capsule 1 cap INHALATION DAILY #90 inh 09/26/18 with inhalation device fluoxetine 20 mg tablet 20 mg PO DAILY #90 tab-cap 10/02/18 quetiapine 25 mg tablet 25 mg PO BID #20 tab 10/17/18 meclizine 25 mg PO TID PRN #20 tab 10/23/18 Allergies Allergy/AdvReac Type Severity Reaction Status Date / Time No Known Allergies Allergy Verified 11/07/18 15:02 General Stated Complaint: PsychEval FLASH: 2 Review of Systems <Dontrell Rudolph NP - Last Filed: 11/09/18 08:21> Constitutional Denies body ache(s), Denies chills, Denies fever(s), Denies weight gain and Denies weight loss Eyes Denies change in vision ENT Denies sore throat and Denies throat swelling Cardiovascular Reports chest pain and Denies dyspnea Respiratory Denies cough and Denies dyspnea Gastrointestinal Reports abdominal pain, Denies diarrhea, Reports nausea and Denies vomiting Genitourinary Denies difficulty urinating and Denies dysuria Allergic/Immunologic Denies throat swelling PFS <Dontrell Rudolph NP - Last Filed: 11/09/18 08:21> Medical History COPD (chronic obstructive pulmonary disease) (Chronic) Adjustment disorder with anxiety (Chronic) Alcohol abuse (Chronic) Anxiety (Chronic) Dyspepsia (Chronic) Malignant neoplasm of right lung (Chronic) Tubular adenoma of colon (Inactive) Surgical History History of lung biopsy (Resolved) History of surgery on upper extremity (Resolved) colonoscopy (Inactive 01/19/15) Family History Father Essential hypertension Hyperlipidemia Paternal Uncle Heart disease Stroke Cerebral hemorrhage Hypertension Brother Cancer Social History Smoking/Tobacco Use Status: Former Tobacco Use Quit Date: 06/05/98 Tobacco: How many years used: 30 Alcohol Intake: former Drug use: Never 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 Adopted: No Foster care: No Household members: family Housing: house Number of Children: 0 Communication Needs: None current occupation: not working Current gender identity: male What type of physical activity do you participate in: none and other Details: started lifting weights Frequency: daily Seatbelt use: always Drive intox or ride w/intox route 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 Exam <Dontrell Rudolph NP - Last Filed: 11/09/18 08:21> Const General: cooperative Orientation: alert, awake and oriented x3 Limitations: mental status not altered HENMT Head: normal to inspection, normocephalic and atraumatic Ears: hearing grossly normal bilaterally Mouth: moist mucous membranes Eyes General: appearance normal, both eyes and all related structures Pupils: PERRL EOM: EOM intact bilaterally Neck Thyroid: thyroid normal Resp Effort & Inspection: normal respiratory effort, able to speak in complete sentences and no respiratory distress Auscultation: clear to auscultation bilaterally Cardio Rate: regular rate and not tachycardic Rhythm: regular rhythm Heart Sounds: S1 normal, S2 normal, no click, no gallops, no murmurs and no rubs GI Inspection: normal to inspection Palpation: soft, no hepatosplenomegaly, not firm, no guarding, no masses, not rigid and tender in the epigastrum and in the LUQ Auscultation: normal bowel sounds Back/Spine/Pelvis Back: no CVA tenderness Neuro General: alert, awake, oriented x3, gait normal, moves all extremities and no focal motor deficits Cognition: normal cognition Speech: speech normal Psych Appearance: grossly normal Mental Status: mental status grossly normal Speech and Movement: speech and movement normal and speech clear Mood: labile mood Affect: indifferent Attitude: cooperative Thought Process: normal Thought Content: normal, no delusions, no hallucinations, no homicidality and suicidality Course <Dontrell Rudolph NP - Last Filed: 11/09/18 08:21> Vital Signs Temperature 36.5 C 11/07/18 14:59 Pulse 82 11/07/18 14:59 Respiratory Rate 16 11/07/18 14:59 Blood Pressure 125/81 11/07/18 14:59 Pulse Oximetry 97 11/07/18 14:59 Temperature 36.5 C 11/07/18 14:59 Temperature Source Skin 11/07/18 14:59 Pulse 82 11/07/18 14:59 Respiratory Rate 16 11/07/18 14:59 Respiratory Effort Non-Labored 11/07/18 14:59 Blood Pressure 125/81 11/07/18 14:59 Blood Pressure Position Sitting 11/07/18 14:59 Pulse Oximetry 97 11/07/18 14:59 Oxygen Delivery Method Room Air 11/07/18 14:59 Oxygen Flow Rate 0 11/07/18 14:59 Pain Level 9 11/07/18 14:59 Sign Out <Dontrell Rudolph NP - Last Filed: 11/09/18 08:21> Sign Out Data: Sign Out Comment: Patient pending psychiatric clearance labs and psychiatric evaluation if medically clear for concern of suicidal ideations with attempt. Patient signed out to Dr. Dayanara Mak updated by Dontrell Rudolph NP at 11/07/18 16:08
[2018-11-07 16:03] LABS: Abs Immature Grans 0.01 k/cumm (0.0-0.09); Absolute Basophil Count 0.01 k/cumm (0.0-0.2); Absolute Eosinophil Count 0.07 k/cumm (0.0-0.7); Absolute Lymphocyte Count 0.96 k/cumm (1.2-3.4); Absolute Monocyte Count 0.53 k/cumm (0.11-0.7); Absolute Neutrophil Count 2.81 k/cumm (1.2-6.7); Basophils % 0.2; Eosinophils % 1.6; HCT 38.4 % (40.0-50.0); HGB 12.9 g/dL (13.5-17.5); Immature Grans % 0.2; Lymphocytes % 21.9; Mean Corp. HGB Concentration 33.6 g/dL (32.0-36.0); Mean Corpuscular Hemoglobin 29.7 pg (27.0-33.0); Mean Corpuscular Volume 88.3 fL (80-95); Mean Platelet Volume 10.1 fL (8.0-11.0); Monocytes % 12.1; Platelet Count 175 x1000/uL (130-400); RBC 4.35 m/cumm (4.50-6.00); RBC Distribution Width 12.6 % (11.8-14.1); White Blood Cell Count 4.39 k/cumm (4.4-10.8)
[2018-11-07 16:15] LABS: ALT 20 U/L (12-78); AST 14 U/L (15-37); Albumin 3.1 g/dL (3.4-5.0); Alkaline Phosphatase 69 U/L (46-116); Anion Gap 6.6 mmol/L (3-11); BUN 16 mg/dL (7-18); Bilirubin, Total 0.7 mg/dL (0.2-1.0); CO2 27.4 mmol/L (21.0-32.0); CREATININE 1.16 mg/dL (0.70-1.30); Calcium 7.9 mg/dL (8.5-10.1); Chloride 105 mmol/L (98-107); Glucose 96 mg/dL (70-100); Sodium 139 mmol/L (136-145); Total Protein 6.5 g/dL (6.4-8.2)
[2018-11-07 16:31] LABS: ETHANOL BLOOD < 3.0 mg/dL (<3)
[2018-11-07 16:38] LABS: Bilirubin Negative (Negative); Blood Negative (Negative); Clarity Clear; Glucose Negative (Negative); Ketones Negative (Negative); Leukocyte Esterase Negative (Negative); Nitrite Negative (Negative); Specific Gravity 1.015 (1.005-1.025); Urobilinogen 0.2 EU/dL (Up TO 0.2)
[2018-11-07 16:46] LABS: Salicylate < 2.8 mg/dL (2.8-20.0)
[2018-11-07 16:50] LABS: *AMPHETAMINES SCREEN URINE Negative (Negative); *BARBITURATES SCREEN URINE Negative (Negative); *BENZODIAZEPINES SCREEN URINE Negative (Negative); Cannabinoids THC Negative (Negative); Cocaine Screen,Urine Negative (Negative); METHADONE URINE SCREEN Negative (Negative); OPIATES URINE SCREEN Negative (Negative)
[2018-11-07 16:53] LABS: Tricyclic Antidepressants Negative (Negative)
[2018-11-07 17:03] LABS: Acetaminophen < 2 ug/mL (10-30)
[2018-11-07 19:16] VITALS: BP 125/81; PULSE 82; RESP 16; O2SAT 97
--- NOTE | 2018-11-08 10:15 | PDOC.ERCMPRO ---
Care Management Progress Note Shweta Saleh called to report Chayo at [place] [place] [facility] was willing to meet with Iggy regarding resources and support disposition, in the likely event he re-presents to the [facility], Chayo Ramírez#[phone].
--- NOTE | 2018-11-08 11:47 | CMPROGNOTE_ITS ---
Care Management Progress Note Shweta Saleh called to report Chayo at [place] [place] [facility] was willing to meet with Iggy regarding resources and support disposition, in the likely event he re- presents to the [facility], Chayo Ramírez#[phone].
== END 2018-11-07 19:20 | disposition home or self-care (01) ==
PROVIDERS: Nurse Practitioner Family; Emergency Provider Student in an Organized Health Care Education/Training Program; PCP Internal Medicine
DX: F43.22 Adjustment disorder with anxiety (principal); R45.851 Suicidal ideations; J44.9 Chronic obstructive pulmonary disease, unspecified
CPT/HCPCS: 36415; 80053; 80307; 82805; 99285; 80320; 80329; 81003; 85025; 99284

== ENCOUNTER 2018-11-09 18:47 | Emergency (ER) | payer MEDICAID, SELFPAY ==
[2018-11-09 18:52] VITALS: BP 143/94; PULSE 109; RESP 22; TEMP 37.1
[2018-11-09 19:03] VITALS: RESP 22
--- NOTE | 2018-11-09 19:12 | W.ED.GENAD ---
Discharge Plan Disposition Patient Disposition: HOME Condition: Stable Discharge Details Chief Complaint: SOB Clinical Impression: Breath shortness Primary Care Provider: Deborah Chow ED Provider: Angelica Majano Home Meds and New Rx's Prescriptions: Continued quetiapine [Seroquel] 50 mg tablet 50 mg PO QHS Qty: 90 RF: 0 Spiriva with HandiHaler 18 mcg capsule, w/inhalation device 1 cap Inhalation DAILY Qty: 90 RF: 0 docusate sodium [Stool Softener] 100 mg tablet 100 mg PO DAILY RF: 0 albuterol sulfate [ProAir HFA] 90 mcg/actuation HFA aerosol inhaler 2 puff Inhalation Q4H PRN PRN (Reason: Shortness Of Breath) Qty: 1 RF: 1 fluoxetine 20 mg tablet 20 mg PO DAILY Qty: 90 RF: 3 quetiapine [Seroquel] 25 mg tablet 25 mg PO BID Qty: 20 RF: 0 prednisone 20 mg tablet 20 mg PO BID RF: 0 lorazepam 1 mg tablet 1 mg PO Q6H PRN (Reason: anxiety) RF: 0 OptiChamber Advantage 1 EACH spacer 1 ea Miscellaneous DIRECTED RF: 0 albuterol sulfate 2.5 MG/3 ML solution for nebulization 2.5 mg Inhalation Q4H PRN PRN (Reason: Shortness Of Breath) 30 Days RF: 0 guaifenesin [Mucus Relief] 400 mg Tablet 400 mg PO Q4H PRNRF: 0 pantoprazole 40 mg tablet,delayed release (DR/EC) 40 mg PO DAILY Qty: 90 RF: 3 Symbicort 10.2 GM HFA aerosol inhaler 10.2 gm Inhalation BID Qty: 3 RF: 3 diphenhydramine HCl [Benadryl] 25 MG capsule 25 mg PO Q6H PRNRF: 0 meclizine 25 mg tablet 25 mg PO TID PRN (Reason: dizziness) Qty: 20 RF: 0 No Action ondansetron 4 mg tablet,disintegrating 4 mg PO TID-QID PRN (Reason: nausea and vomiting) Qty: 30 RF: 0 Discharge Instructions Instructions: Dyspnea (ED) Additional Instructions: Encourage hydration. Please continue with medications as previously prescribed. Please follow-up with your primary care next week for reevaluation. Seek care urgently with new or worsening symptoms. Referrals: Deborah Chow MD [Primary Care Provider] - Discharge Data Discharge Date/Time-TO BE ENTERED AT DEPARTURE: 11/09/18 20:09 Medical Decision Making Patient is 63-year-old male presents today with chief complaint shortness of breath. Patient is here very frequently with this complaint. He appears in his baseline. He is concerned that he may develop seasonal allergies. Did not use in his nebulizer follow his breathing treatment. Patient was evaluated by respiratory therapy who had seen him earlier today and pulmonary rehab. He was given a nebulizer and feels improved. Feels that if he goes home and take some remaining nighttime meds, he will continue to improve. Denies any chest pain. Lungs are clear on exam. Patient satting at 98%, heart rate at 90. Patient is nontoxic-appearing, appears to be at baseline. Advised that while he may have seasonal allergies, this is likely associated with his chronic shortness of breath as he has been here multiple times shortness of breath after mowing with good results when following his respiratory therapy guidelines. He will follow-up with his primary care and follow the recommendations made by respiratory therapy. Patient does have respiratory therapy recommendations in his pocket that he is supposed to follow-up. I did make copies of this for him historically and have advised that he carry this with him so he may refer to when he develops shortness of breath. He was given strict return precautions. All of his questions and concerns were addressed and he is in agreement this plan. HPI General Mode of arrival: ambulatory. Date/Time Provider Initiated Documentation: 11/09/18 19:12. Limitations to Documentation: no limitations. Information obtained by: patient and RN notes reviewed. History of Present Illness 63 year old M presents to the emergency department with the chief complaint of shortness of breath, concerned for seasonal allergies, described as moderate and similar to prior episodes, Patient started experiencing this minute(s) and it has been constant. No relieving factors improve symptom(s), No exacerbating factors reported . Patient notes no other symptoms.. Patient did receive the following treatments prior to arrival, none Related Data Home Medications Medication Instructions Recorded Confirmed [employer] Advantage kit 10/15/17 11/10/18 albuterol sulfate 2.5 mg INHALATION Q4H PRN PRN 30 10/15/17 11/10/18 Days ml albuterol sulfate HFA 90 2 puff INHALATION Q4H PRN PRN #1 07/02/18 11/10/18 mcg/actuation aerosol inhaler inh guaifenesin [Mucus Relief] 400 mg PO Q4H PRN 09/09/18 11/10/18 Symbicort 10.2 gm INHALATION BID #3 inhaler 09/21/18 11/10/18 pantoprazole 40 mg PO DAILY #90 tab 09/21/18 11/10/18 quetiapine 50 mg tablet 50 mg PO QHS #90 tab 09/26/18 11/10/18 tiotropium bromide 18 mcg capsule 1 cap INHALATION DAILY #90 inh 09/26/18 11/10/18 with inhalation device fluoxetine 20 mg tablet 20 mg PO DAILY #90 tab-cap 10/02/18 11/10/18 quetiapine 25 mg tablet 25 mg PO BID #20 tab 10/17/18 11/10/18 meclizine 25 mg PO TID PRN #20 tab 10/23/18 11/10/18 docusate sodium 100 mg tablet 100 mg PO DAILY 10/30/18 11/10/18 diphenhydramine HCl [Benadryl] 25 mg PO Q6H PRN 11/01/18 11/10/18 lorazepam 1 mg tablet 1 mg PO Q6H PRN tab 11/09/18 11/10/18 prednisone 20 mg tablet 20 mg PO BID tab 11/09/18 11/10/18 ondansetron 4 mg PO TID-QID PRN #30 tab 11/12/18 Previous Rx's Medication Instructions Recorded [facility] Advantage kit 10/15/17 albuterol sulfate 2.5 mg INHALATION Q4H PRN PRN 30 10/15/17 Days ml albuterol sulfate HFA 90 2 puff INHALATION Q4H PRN PRN #1 07/02/18 mcg/actuation aerosol inhaler inh Symbicort 10.2 gm INHALATION BID #3 inhaler 09/21/18 pantoprazole 40 mg PO DAILY #90 tab 09/21/18 quetiapine 50 mg tablet 50 mg PO QHS #90 tab 09/26/18 tiotropium bromide 18 mcg capsule 1 cap INHALATION DAILY #90 inh 09/26/18 with inhalation device fluoxetine 20 mg tablet 20 mg PO DAILY #90 tab-cap 04/30/19 quetiapine 25 mg tablet 25 mg PO BID #20 tab 10/17/18 meclizine 25 mg PO TID PRN #20 tab 10/23/18 ondansetron 4 mg PO TID-QID PRN #30 tab 11/12/18 Allergies Allergy/AdvReac Type Severity Reaction Status Date / Time No Known Allergies Allergy Verified 11/12/18 18:21 General Stated Complaint: SOB FLASH: 4 Review of Systems Constitutional Reports as per HPI, Denies chills, Denies fever(s), Denies headache(s) and Denies poor appetite Eyes Reports as per HPI, Denies eye discharge and Denies irritation ENT Reports as per HPI, Denies change in voice, Denies headache(s), Denies hoarseness, Denies nasal congestion, Denies nasal discharge, Denies sinus pain, Denies sinus pressure, Denies sore throat and Denies throat swelling Cardiovascular Reports as per HPI, Denies chest pain, Reports dyspnea and Reports dyspnea on exertion (finds this to be worse when mowing the lawn) Respiratory Reports as per HPI, Denies cough, Denies hemoptysis, Denies pain on inspiration, Reports dyspnea, Reports dyspnea on exertion (finds this to be worse when mowing the lawn) and Denies wheezing Gastrointestinal Reports as per HPI, Denies abdominal pain, Denies change in bowel habits, Denies nausea and Denies vomiting Integumentary/Breasts Reports as per HPI and Denies rash Neurologic Reports as per HPI and Denies headache(s) Allergic/Immunologic Denies throat swelling and Denies wheezing [facility] Medical History COPD (chronic obstructive pulmonary disease) (Chronic) Adjustment disorder with anxiety (Chronic) Alcohol abuse (Chronic) Anxiety (Chronic) Dyspepsia (Chronic) Malignant neoplasm of right lung (Chronic) Tubular adenoma of colon (Inactive) Surgical History History of lung biopsy (Resolved) History of surgery on upper extremity (Resolved) colonoscopy (Inactive 01/19/15) Social History Smoking/Tobacco Use Status: Former Tobacco Use Quit Date: 06/05/98 Tobacco: How many years used: 30 Alcohol Intake: former Drug use: Never 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 Adopted: No Foster care: No Household members: family Housing: house Number of Children: 0 Communication Needs: None current occupation: not working Current gender identity: male What type of physical activity do you participate in: none and other Details: started lifting weights Frequency: daily Seatbelt use: always 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 Exam Const General: cooperative, comfortable, no acute distress, well developed and ill appearing chronically Nutritional Appearance: well nourished and thin Orientation: alert and awake HENAL Head: normal to inspection, normocephalic and atraumatic Ears: hearing grossly normal bilaterally, external ears normal and TM's normal bilaterally General nose exam: external nose normal and nares normal Face and sinus: normal facial exam, sinuses nontender and face symmetric Mouth: oral mucosae normal, lip normal, tongue normal, oropharynx normal and moist mucous membranes Teeth and gingiva: dentition normal Throat: posterior oropharynx normal, tonsils normal and uvula midline Eyes General: appearance normal, both eyes and all related structures Neck Neck: normal visual inspection, full ROM, no lymphadenopathy and no meningeal signs Resp Effort & Inspection: normal respiratory effort, able to speak in complete sentences and no respiratory distress Auscultation: clear to auscultation bilaterally, no rales, no rhonchi and no wheezes Cardio Rate: regular rate Rhythm: regular rhythm Heart Sounds: S1 normal and S2 normal Skin General skin exam: no rashes or lesions noted Neuro General: alert and awake Cognition: normal cognition Speech: speech normal Gait: normal gait Extrem General: no pedal edema, no calf tenderness and normal gait Psych Appearance: grossly normal and well kempt Mental Status: mental status grossly normal Speech and Movement: speech and movement normal Course Vital Signs Temperature 37.1 C 11/09/18 18:52 Pulse 109 H 11/09/18 18:52 Respiratory Rate 22 11/09/18 18:52 Blood Pressure 143/94 H 11/09/18 18:52 Temperature 37.1 C 11/09/18 18:52 Temperature Source Temporal Artery Scan 11/09/18 18:52 Pulse 109 H 11/09/18 18:52 Respiratory Rate 22 11/09/18 19:03 Respiratory Effort Non-Labored 11/09/18 19:03 Respiratory Depth Normal 11/09/18 19:03 Blood Pressure 143/94 H 11/09/18 18:52 Blood Pressure Position Sitting 11/09/18 18:52 Oxygen Delivery Method Room Air 11/09/18 18:52 Oxygen Flow Rate 0 11/09/18 18:52
[2018-11-09 19:13] VITALS: RESP 8
[2018-11-09] MEDS: Albuterol/Ipratropium 3 ML UPD VIAL UPD (19:13)
--- NOTE | 2018-11-09 20:03 | ED.GENADUL_ITS ---
Discharge Plan Disposition Patient Disposition: HOME Condition: Stable Discharge Details Chief Complaint: SOB Clinical Impression: Breath shortness Primary Care Provider: Deborah Chow ED Provider: Angelica Majano Home Meds and New Rx's Prescriptions: Continued quetiapine [Seroquel] 50 mg tablet 50 mg PO QHS Qty: 90 RF: 0 Spiriva with HandiHaler 18 mcg capsule, w/inhalation device 1 cap Inhalation DAILY Qty: 90 RF: 0 docusate sodium [Stool Softener] 100 mg tablet 100 mg PO DAILY RF: 0 albuterol sulfate [ProAir HFA] 90 mcg/actuation HFA aerosol inhaler 2 puff Inhalation Q4H PRN PRN (Reason: Shortness Of Breath) Qty: 1 RF: 1 fluoxetine 20 mg tablet 20 mg PO DAILY Qty: 90 RF: 3 quetiapine [Seroquel] 25 mg tablet 25 mg PO BID Qty: 20 RF: 0 prednisone 20 mg tablet 20 mg PO BID RF: 0 lorazepam 1 mg tablet 1 mg PO Q6H PRN (Reason: anxiety) RF: 0 OptiChamber Advantage 1 EACH spacer 1 ea Miscellaneous DIRECTED RF: 0 albuterol sulfate 2.5 MG/3 ML solution for nebulization 2.5 mg Inhalation Q4H PRN PRN (Reason: Shortness Of Breath) 30 Days RF: 0 guaifenesin [Mucus Relief] 400 mg Tablet 400 mg PO Q4H PRNRF: 0 pantoprazole 40 mg tablet,delayed release (DR/EC) 40 mg PO DAILY Qty: 90 RF: 3 Symbicort 10.2 GM HFA aerosol inhaler 10.2 gm Inhalation BID Qty: 3 RF: 3 diphenhydramine HCl [Benadryl] 25 MG capsule 25 mg PO Q6H PRNRF: 0 meclizine 25 mg tablet 25 mg PO TID PRN (Reason: dizziness) Qty: 20 RF: 0 No Action ondansetron 4 mg tablet,disintegrating 4 mg PO TID-QID PRN (Reason: nausea and vomiting) Qty: 30 RF: 0 Discharge Instructions Instructions: Dyspnea (ED) Additional Instructions: Encourage hydration. Please continue with medications as previously prescribed. Please follow-up with your primary care next week for reevaluation. Seek care urgently with new or worsening symptoms. Referrals: Deborah Chow MD [Primary Care Provider] - Discharge Data Discharge Date/Time-TO BE ENTERED AT DEPARTURE: 11/09/18 20:09 Medical Decision Making Patient is 63-year-old male presents today with chief complaint shortness of breath. Patient is here very frequently with this complaint. He appears in his baseline. He is concerned that he may develop seasonal allergies. Did not use in his nebulizer follow his breathing treatment. Patient was evaluated by respiratory therapy who had seen him earlier today and pulmonary rehab. He was given a nebulizer and feels improved. Feels that if he goes home and take some remaining nighttime meds, he will continue to improve. Denies any chest pain. Lungs are clear on exam. Patient satting at 98%, heart rate at 90. Patient is nontoxic-appearing, appears to be at baseline. Advised that while he may have seasonal allergies, this is likely associated with his chronic shortness of breath as he has been here multiple times shortness of breath after mowing with good results when following his respiratory therapy guidelines. He will follow- up with his primary care and follow the recommendations made by respiratory therapy. Patient does have respiratory therapy recommendations in his pocket that he is supposed to follow-up. I did make copies of this for him historically and have advised that he carry this with him so he may refer to when he develops shortness of breath. He was given strict return precautions. All of his questions and concerns were addressed and he is in agreement this plan. HPI General Mode of arrival: ambulatory . Date/Time Provider Initiated Documentation: 11/09/18 19:12 . Limitations to Documentation: no limitations . Information obtained by: patient and RN notes reviewed . History of Present Illness 63 year old M presents to the emergency department with the chief complaint of shortness of breath, concerned for seasonal allergies, described as moderate and similar to prior episodes, Patient started experiencing this minute(s) and it has been constant. No relieving factors improve symptom(s), No exacerbating factors reported . Patient notes no other symptoms.. Patient did receive the following treatments prior to arrival, none Related Data Home Medications Medication Instructions Recorded Confirmed [employer] Advantage kit 10/15/17 11/10/18 albuterol sulfate 2.5 mg INHALATION Q4H PRN PRN 30 10/15/17 11/10/18 Days ml albuterol sulfate HFA 90 2 puff INHALATION Q4H PRN PRN #1 07/02/18 11/10/18 mcg/actuation aerosol inhaler inh guaifenesin [Mucus Relief] 400 mg PO Q4H PRN 09/09/18 11/10/18 Symbicort 10.2 gm INHALATION BID #3 inhaler 09/21/18 11/10/18 pantoprazole 40 mg PO DAILY #90 tab 09/21/18 11/10/18 quetiapine 50 mg tablet 50 mg PO QHS #90 tab 09/26/18 11/10/18 tiotropium bromide 18 mcg capsule 1 cap INHALATION DAILY #90 inh 09/26/18 11/10/18 with inhalation device fluoxetine 20 mg tablet 20 mg PO DAILY #90 tab-cap 10/02/18 11/10/18 quetiapine 25 mg tablet 25 mg PO BID #20 tab 10/17/18 11/10/18 meclizine 25 mg PO TID PRN #20 tab 10/23/18 11/10/18 docusate sodium 100 mg tablet 100 mg PO DAILY 10/30/18 11/10/18 diphenhydramine HCl [Benadryl] 25 mg PO Q6H PRN 11/01/18 11/10/18 lorazepam 1 mg tablet 1 mg PO Q6H PRN tab 11/09/18 11/10/18 prednisone 20 mg tablet 20 mg PO BID tab 11/09/18 11/10/18 ondansetron 4 mg PO TID-QID PRN #30 tab 11/12/18 Previous Rx's Medication Instructions Recorded [facility] Advantage kit 10/15/17 albuterol sulfate 2.5 mg INHALATION Q4H PRN PRN 30 10/15/17 Days ml albuterol sulfate HFA 90 2 puff INHALATION Q4H PRN PRN #1 07/02/18 mcg/actuation aerosol inhaler inh Symbicort 10.2 gm INHALATION BID #3 inhaler 09/21/18 pantoprazole 40 mg PO DAILY #90 tab 09/21/18 quetiapine 50 mg tablet 50 mg PO QHS #90 tab 09/26/18 tiotropium bromide 18 mcg capsule 1 cap INHALATION DAILY #90 inh 09/26/18 with inhalation device fluoxetine 20 mg tablet 20 mg PO DAILY #90 tab-cap 04/30/19 quetiapine 25 mg tablet 25 mg PO BID #20 tab 10/17/18 meclizine 25 mg PO TID PRN #20 tab 10/23/18 ondansetron 4 mg PO TID-QID PRN #30 tab 11/12/18 Allergies Allergy/AdvReac Type Severity Reaction Status Date / Time No Known Allergies Allergy Verified 11/12/18 18:21 General Stated Complaint: SOB FLASH: 4 Review of Systems Constitutional Reports as per HPI, Denies chills, Denies fever(s), Denies headache(s) and Denies poor appetite Eyes Reports as per HPI, Denies eye discharge and Denies irritation ENT Reports as per HPI, Denies change in voice, Denies headache(s), Denies hoarseness, Denies nasal congestion, Denies nasal discharge, Denies sinus pain, Denies sinus pressure, Denies sore throat and Denies throat swelling Cardiovascular Reports as per HPI, Denies chest pain, Reports dyspnea and Reports dyspnea on exertion (finds this to be worse when mowing the lawn) Respiratory Reports as per HPI, Denies cough, Denies hemoptysis, Denies pain on inspiration, Reports dyspnea, Reports dyspnea on exertion (finds this to be worse when mowing the lawn) and Denies wheezing Gastrointestinal Reports as per HPI, Denies abdominal pain, Denies change in bowel habits, Denies nausea and Denies vomiting Integumentary/Breasts Reports as per HPI and Denies rash Neurologic Reports as per HPI and Denies headache(s) Allergic/Immunologic Denies throat swelling and Denies wheezing [facility] Medical History COPD (chronic obstructive pulmonary disease) (Chronic) Adjustment disorder with anxiety (Chronic) Alcohol abuse (Chronic) Anxiety (Chronic) Dyspepsia (Chronic) Malignant neoplasm of right lung (Chronic) Tubular adenoma of colon (Inactive) Surgical History History of lung biopsy (Resolved) History of surgery on upper extremity (Resolved) colonoscopy (Inactive 01/19/15) Social History Smoking/Tobacco Use Status: Former Tobacco Use Quit Date: 06/05/98 Tobacco: How many years used: 30 Alcohol Intake: former Drug use: Never 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 Adopted: No Foster care: No Household members: family Housing: house Number of Children: 0 Communication Needs: None current occupation: not working Current gender identity: male What type of physical activity do you participate in: none and other Details: started lifting weights Frequency: daily Seatbelt use: always 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 Exam Const General: cooperative, comfortable, no acute distress, well developed and ill appearing chronically Nutritional Appearance: well nourished and thin Orientation: alert and awake [place]EN[place] Head: normal to inspection, normocephalic and atraumatic Ears: hearing grossly normal bilaterally, external ears normal and TM's normal bilaterally General nose exam: external nose normal and nares normal Face and sinus: normal facial exam, sinuses nontender and face symmetric Mouth: oral mucosae normal, lip normal, tongue normal, oropharynx normal and moist mucous membranes Teeth and gingiva: dentition normal Throat: posterior oropharynx normal, tonsils normal and uvula midline Eyes General: appearance normal, both eyes and all related structures Neck Neck: normal visual inspection, full ROM, no lymphadenopathy and no meningeal signs Resp Effort & Inspection: normal respiratory effort, able to speak in complete sentences and no respiratory distress Auscultation: clear to auscultation bilaterally, no rales, no rhonchi and no wheezes Cardio Rate: regular rate Rhythm: regular rhythm Heart Sounds: S1 normal and S2 normal Skin General skin exam: no rashes or lesions noted Neuro General: alert and awake Cognition: normal cognition Speech: speech normal Gait: normal gait Extrem General: no pedal edema, no calf tenderness and normal gait Psych Appearance: grossly normal and well kempt Mental Status: mental status grossly normal Speech and Movement: speech and movement normal Course Vital Signs Temperature 37.1 C 11/09/18 18:52 Pulse 109 H 11/09/18 18:52 Respiratory Rate 22 11/09/18 18:52 Blood Pressure 143/94 H 11/09/18 18:52 Temperature 37.1 C 11/09/18 18:52 Temperature Source Temporal Artery Scan 11/09/18 18:52 Pulse 109 H 11/09/18 18:52 Respiratory Rate 22 11/09/18 19:03 Respiratory Effort Non-Labored 11/09/18 19:03 Respiratory Depth Normal 11/09/18 19:03 Blood Pressure 143/94 H 11/09/18 18:52 Blood Pressure Position Sitting 11/09/18 18:52 Oxygen Delivery Method Room Air 11/09/18 18:52 Oxygen Flow Rate 0 11/09/18 18:52
== END 2018-11-09 20:09 | disposition home or self-care (01) ==
PROVIDERS: Emergency Provider Physician Assistant; PCP Internal Medicine
DX: R06.02 Shortness of breath (principal); F41.9 Anxiety disorder, unspecified; J44.9 Chronic obstructive pulmonary disease, unspecified; Z87.891 Personal history of nicotine dependence
CPT/HCPCS: 94640; 99283; J7620

== ENCOUNTER 2018-11-10 13:46 | Emergency (ER) | payer MEDICAID, SELFPAY ==
[2018-11-10 13:50] VITALS: BP 126/58; PULSE 80; RESP 16; TEMP 36.6; O2SAT 97
--- NOTE | 2018-11-10 16:47 | W.ED.GENAD ---
Discharge Plan Discharge Details Chief Complaint: RespSymp Primary Care Provider: Deborah Chow ED Provider: Alison Resendiz Home Meds and New Rx's Prescriptions: No Action quetiapine [Seroquel] 50 mg tablet 50 mg PO QHS Qty: 90 RF: 0 Spiriva with HandiHaler 18 mcg capsule, w/inhalation device 1 cap Inhalation DAILY Qty: 90 RF: 0 docusate sodium [Stool Softener] 100 mg tablet 100 mg PO DAILY RF: 0 albuterol sulfate [ProAir HFA] 90 mcg/actuation HFA aerosol inhaler 2 puff Inhalation Q4H PRN PRN (Reason: Shortness Of Breath) Qty: 1 RF: 1 fluoxetine 20 mg tablet 20 mg PO DAILY Qty: 90 RF: 3 quetiapine [Seroquel] 25 mg tablet 25 mg PO BID Qty: 20 RF: 0 prednisone 20 mg tablet 20 mg PO BID RF: 0 lorazepam 1 mg tablet 1 mg PO Q6H PRN (Reason: anxiety) RF: 0 OptiChamber Advantage 1 EACH spacer 1 ea Miscellaneous DIRECTED RF: 0 albuterol sulfate 2.5 MG/3 ML solution for nebulization 2.5 mg Inhalation Q4H PRN PRN (Reason: Shortness Of Breath) 30 Days RF: 0 guaifenesin [Mucus Relief] 400 mg Tablet 400 mg PO Q4H PRNRF: 0 pantoprazole 40 mg tablet,delayed release (DR/EC) 40 mg PO DAILY Qty: 90 RF: 3 Symbicort 10.2 GM HFA aerosol inhaler 10.2 gm Inhalation BID Qty: 3 RF: 3 diphenhydramine HCl [Benadryl] 25 MG capsule 25 mg PO Q6H PRNRF: 0 meclizine 25 mg tablet 25 mg PO TID PRN (Reason: dizziness) Qty: 20 RF: 0 Discharge Data Discharge Date/Time-TO BE ENTERED AT DEPARTURE: 11/10/18 16:52 Medical Decision Making Patient is a 63-year-old male with a history of lung cancer, anxiety, COPD and alcohol abuse in remission who is here almost daily who presented for his daily complaint of shortness of breath. Patient eloped prior to my evaluation. Patient was noted to be stable with normal vital signs per ED staff. Patient was noted to be making a phone call in the waiting room and stated that he needed to leave and would be back in 15 minutes. HPI General Date/Time Provider Initiated Documentation: 11/10/18 14:03. HPI Narrative: Did not evaluate. Eloped prior to evaluation. Related Data Home Medications Medication Instructions Recorded [facility] 10/15/17 11/10/18 albuterol sulfate 2.5 mg INHALATION Q4H PRN PRN 30 10/15/17 11/10/18 Days ml albuterol sulfate HFA 90 2 puff INHALATION Q4H PRN PRN #1 07/02/18 11/10/18 mcg/actuation aerosol inhaler inh guaifenesin [Mucus Relief] 400 mg PO Q4H PRN 09/09/18 11/10/18 Symbicort 10.2 gm INHALATION BID #3 inhaler 09/21/18 11/10/18 pantoprazole 40 mg PO DAILY #90 tab 09/21/18 11/10/18 quetiapine 50 mg tablet 50 mg PO QHS #90 tab 09/26/18 11/10/18 tiotropium bromide 18 mcg capsule 1 cap INHALATION DAILY #90 inh 09/26/18 11/10/18 with inhalation device fluoxetine 20 mg tablet 20 mg PO DAILY #90 tab-cap 10/02/18 11/10/18 quetiapine 25 mg tablet 25 mg PO BID #20 tab 10/17/18 11/10/18 meclizine 25 mg PO TID PRN #20 tab 10/23/18 11/10/18 docusate sodium 100 mg tablet 100 mg PO DAILY 10/30/18 11/10/18 diphenhydramine HCl [Benadryl] 25 mg PO Q6H PRN 11/01/18 11/10/18 lorazepam 1 mg tablet 1 mg PO Q6H PRN tab 11/09/18 11/10/18 prednisone 20 mg tablet 20 mg PO BID tab 11/09/18 11/10/18 Previous Rx's Medication Instructions [facility] 10/15/17 albuterol sulfate 2.5 mg INHALATION Q4H PRN PRN 30 10/15/17 Days ml albuterol sulfate HFA 90 2 puff INHALATION Q4H PRN PRN #1 07/02/18 mcg/actuation aerosol inhaler inh Symbicort 10.2 gm INHALATION BID #3 inhaler 09/21/18 pantoprazole 40 mg PO DAILY #90 tab 09/21/18 quetiapine 50 mg tablet 50 mg PO QHS #90 tab 09/26/18 tiotropium bromide 18 mcg capsule 1 cap INHALATION DAILY #90 inh 09/26/18 with inhalation device fluoxetine 20 mg tablet 20 mg PO DAILY #90 tab-cap 10/02/18 quetiapine 25 mg tablet 25 mg PO BID #20 tab 10/17/18 meclizine 25 mg PO TID PRN #20 tab 10/23/18 Allergies Allergy/AdvReac Type Severity Reaction Status Date / Time No Known Allergies Allergy Verified 11/10/18 17:32 General Stated Complaint: RespSymp FLASH: 4 PFS Medical History COPD (chronic obstructive pulmonary disease) (Chronic) Adjustment disorder with anxiety (Chronic) Alcohol abuse (Chronic) Anxiety (Chronic) Dyspepsia (Chronic) Malignant neoplasm of right lung (Chronic) Tubular adenoma of colon (Inactive) Surgical History History of lung biopsy (Resolved) History of surgery on upper extremity (Resolved) colonoscopy (Inactive 01/19/15) Family History Father Essential hypertension Hyperlipidemia Paternal Uncle Heart disease Stroke Cerebral hemorrhage Hypertension Brother Cancer Social History Smoking/Tobacco Use Status: Former Tobacco Use Quit Date: 06/05/98 Tobacco: How many years used: 30 Alcohol Intake: former Drug use: Never 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 Adopted: No Foster care: No Household members: family Housing: house Number of Children: 0 Communication Needs: None current occupation: not working Current gender identity: male What type of physical activity do you participate in: none and other Details: started lifting weights Frequency: daily Seatbelt use: always Drive intox or ride w/intox 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 Course Vital Signs Temperature 97.9 F 11/10/18 13:50 Pulse 80 11/10/18 13:50 Respiratory Rate 16 11/10/18 13:50 Blood Pressure 126/58 L 11/10/18 13:50 Pulse Oximetry 97 11/10/18 13:50 Temperature 97.9 F 11/10/18 13:50 Temperature Source Skin 11/10/18 13:50 Pulse 80 11/10/18 13:50 Respiratory Rate 16 11/10/18 13:50 Respiratory Effort 11/10/18 13:56 Respiratory Depth Normal 11/10/18 13:56 Blood Pressure 126/58 L 11/10/18 13:50 Blood Pressure Position Sitting 11/10/18 13:50 Pulse Oximetry 97 11/10/18 13:50 Oxygen Delivery Method Room Air 11/10/18 13:50 Oxygen Flow Rate 0 11/10/18 13:50
== END 2018-11-10 16:52 ==
LOC: ER 14:16
PROVIDERS: Emergency Provider Physician Assistant; PCP Internal Medicine
DX: R06.02 Shortness of breath (principal); Z53.21 Procedure and treatment not carried out due to patient leaving prior to being seen by health care provider; J44.9 Chronic obstructive pulmonary disease, unspecified

== ENCOUNTER 2018-11-10 17:09 | Emergency (ER) | payer MEDICAID, SELFPAY ==
[2018-11-10 17:29] VITALS: BP 139/80; PULSE 87; RESP 16; TEMP 36.5; O2SAT 97
[2018-11-10 17:33] VITALS: RESP 17
--- NOTE | 2018-11-10 18:45 | ED.GENADUL_ITS ---
Discharge Plan Disposition Patient Disposition: HOME Condition: Improving Discharge Details Chief Complaint: GenMedical Clinical Impression: Chronic shortness of breath, Anxiety Primary Care Provider: Deborah Chow ED Provider: Alison Resendiz Home Meds and New Rx's Prescriptions: Continued quetiapine [Seroquel] 50 mg tablet 50 mg PO QHS Qty: 90 RF: 0 Spiriva with HandiHaler 18 mcg capsule, w/inhalation device 1 cap Inhalation DAILY Qty: 90 RF: 0 docusate sodium [Stool Softener] 100 mg tablet 100 mg PO DAILY RF: 0 albuterol sulfate [ProAir HFA] 90 mcg/actuation HFA aerosol inhaler 2 puff Inhalation Q4H PRN PRN (Reason: Shortness Of Breath) Qty: 1 RF: 1 fluoxetine 20 mg tablet 20 mg PO DAILY Qty: 90 RF: 3 quetiapine [Seroquel] 25 mg tablet 25 mg PO BID Qty: 20 RF: 0 prednisone 20 mg tablet 20 mg PO BID RF: 0 lorazepam 1 mg tablet 1 mg PO Q6H PRN (Reason: anxiety) RF: 0 OptiChamber Advantage 1 EACH spacer 1 ea Miscellaneous DIRECTED RF: 0 albuterol sulfate 2.5 MG/3 ML solution for nebulization 2.5 mg Inhalation Q4H PRN PRN (Reason: Shortness Of Breath) 30 Days RF: 0 guaifenesin [Mucus Relief] 400 mg Tablet 400 mg PO Q4H PRNRF: 0 pantoprazole 40 mg tablet,delayed release (DR/EC) 40 mg PO DAILY Qty: 90 RF: 3 Symbicort 10.2 GM HFA aerosol inhaler 10.2 gm Inhalation BID Qty: 3 RF: 3 diphenhydramine HCl [Benadryl] 25 MG capsule 25 mg PO Q6H PRNRF: 0 meclizine 25 mg tablet 25 mg PO TID PRN (Reason: dizziness) Qty: 20 RF: 0 Discharge Instructions Instructions: Dyspnea (ED), Anxiety (ED) Additional Instructions: Follow-up with your scheduled appointment with your primary care doctor on Monday. Return to the emergency department if you develop any significant worsening or new concerning symptoms. Discharge Data Discharge Date/Time-TO BE ENTERED AT DEPARTURE: 11/10/18 20:14 Discharge Physician: Alison Resendiz Medical Decision Making 63-year-old male who is well-known to the emergency department with almost daily visits with a history of COPD, lung cancer, anxiety and former alcohol abuse who presents with his usual exacerbation of his chronic shortness of breath tod ay. Patient states his symptoms developed today while he was mowing the lawn outside. Patient was seen here earlier today but left because he had to go grocery shopping. Patient returned to the ER 1 hour later due to his persistent chronic shortness of breath. Vitals within normal limits. Patient has demonstrated no respiratory distress and has been sitting comfortably watching tv for almost 2 hours while in the emergency department. Lungs clear to auscultation. Normal oxygen saturation, respiratory rate and heart rate. At this point time, I do not see an indication for lab work or imaging. Patient states he needs an antibiotic for his symptoms. He is currently on prednisone. Discussed that with no fever, tachycardia, or hypoxia and a normal lung exam, I do not see an indication for antibiotics at this time. Patient instructed to take his regular medications including his anxiety medications this evening and follow-up with his scheduled appointment with his primary care doctor on Monday. He is instructed return here immediately if he develops any significant worsening or new concerning symptoms. Medical Records Medical records reviewed: Yes I reviewed the patient's medical records. HPI General Mode of arrival: ambulatory . Date/Time Provider Initiated Documentation: 11/10/18 18:42 . Limitations to Documentation: no limitations . Information obtained by: patient . HPI Narrative: Patient is a 63-year-old male with a history of COPD, anxiety, adjustment disorder, lung cancer, alcohol abuse in remission with almost daily ED visits over the last 2 months and with more than 60 ED visits since the start of the year who presents with complaint of shortness of breath that started while mowing the lawn today. He states this is consistent with his usual shortness of breath that he has every day. Patient states he took his anxiety medicine prior to arrival but denies any relief. Denies any chest pain at this time. Related Data Home Medications Medication Instructions Recorded Confirmed [employer] Advantage kit 10/15/17 11/10/18 albuterol sulfate 2.5 mg INHALATION Q4H PRN PRN 30 10/15/17 11/10/18 Days ml albuterol sulfate HFA 90 2 puff INHALATION Q4H PRN PRN #1 07/02/18 11/10/18 mcg/actuation aerosol inhaler inh guaifenesin [Mucus Relief] 400 mg PO Q4H PRN 09/09/18 11/10/18 Symbicort 10.2 gm INHALATION BID #3 inhaler 09/21/18 11/10/18 pantoprazole 40 mg PO DAILY #90 tab 09/21/18 11/10/18 quetiapine 50 mg tablet 50 mg PO QHS #90 tab 09/26/18 11/10/18 tiotropium bromide 18 mcg capsule 1 cap INHALATION DAILY #90 inh 09/26/18 11/10/18 with inhalation device fluoxetine 20 mg tablet 20 mg PO DAILY #90 tab-cap 10/02/18 11/10/18 quetiapine 25 mg tablet 25 mg PO BID #20 tab 10/17/18 11/10/18 meclizine 25 mg PO TID PRN #20 tab 10/23/18 11/10/18 docusate sodium 100 mg tablet 100 mg PO DAILY 10/30/18 11/10/18 diphenhydramine HCl [Benadryl] 25 mg PO Q6H PRN 11/01/18 11/10/18 lorazepam 1 mg tablet 1 mg PO Q6H PRN tab 11/09/18 11/10/18 prednisone 20 mg tablet 20 mg PO BID tab 11/09/18 11/10/18 Previous Rx's Medication Instructions [facility] albuterol sulfate 2.5 mg INHALATION Q4H PRN PRN 30 10/15/17 Days ml albuterol sulfate HFA 90 2 puff INHALATION Q4H PRN PRN #1 07/02/18 mcg/actuation aerosol inhaler inh Symbicort 10.2 gm INHALATION BID #3 inhaler 09/21/18 pantoprazole 40 mg PO DAILY #90 tab 09/21/18 quetiapine 50 mg tablet 50 mg PO QHS #90 tab 09/26/18 tiotropium bromide 18 mcg capsule 1 cap INHALATION DAILY #90 inh 09/26/18 with inhalation device fluoxetine 20 mg tablet 20 mg PO DAILY #90 tab-cap 10/02/18 quetiapine 25 mg tablet 25 mg PO BID #20 tab 10/17/18 meclizine 25 mg PO TID PRN #20 tab 10/23/18 Allergies Allergy/AdvReac Type Severity Reaction Status Date / Time No Known Allergies Allergy Verified 11/10/18 17:32 General Stated Complaint: GenMedical FLASH: 4 Review of Systems Review of Systems All systems reviewed & are unremarkable except as noted in HPI and below Constitutional Reports as per HPI, Denies chills and Denies fever(s) Eyes Denies blurry vision ENT Denies dizziness, Denies sore throat and Denies throat swelling Cardiovascular Reports chest pain and Reports dyspnea Respiratory Denies cough and Reports dyspnea Gastrointestinal Denies abdominal pain, Denies diarrhea and Denies vomiting Genitourinary Denies hematuria and Denies dysuria Musculoskeletal Denies back pain and Denies numbness Integumentary/Breasts Denies lesions and Denies rash Neurologic Denies dizziness, Denies focal weakness and Denies numbness Allergic/Immunologic Denies throat swelling [facility] Social History Smoking/Tobacco Use Status: Former Tobacco Use Quit Date: 06/05/98 Tobacco: How many years used: 30 Alcohol Intake: former Drug use: Never 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 Adopted: No Foster care: No Household members: family Housing: house Number of Children: 0 Communication Needs: None current occupation: not working Current gender identity: male What type of physical activity do you participate in: none and other Details: started lifting weights Frequency: daily Seatbelt use: always Drive intox or ride w/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 Exam Const General: cooperative, healthy appearing and no acute distress HENMT Head: normal to inspection Face and sinus: normal facial exam Eyes General: appearance normal, both eyes and all related structures EOM: EOM intact bilaterally Neck Neck: normal visual inspection and No submandibular swelling Lymphatic: no lymphadenopathy noted Chest Chest: normal inspection of the chest and no tenderness Resp Effort & Inspection: normal respiratory effort and able to speak in complete sentences Auscultation: clear to auscultation bilaterally Cardio Rate: regular rate Rhythm: regular rhythm GI Inspection: normal to inspection Palpation: soft, not firm, not rigid and nontender Auscultation: normal bowel sounds Male General Exam: Yes normal external exam Skin General skin exam: no rashes or lesions noted Neuro General: alert, awake and oriented x3 Cognition: normal cognition Speech: speech normal Motor: muscle tone normal throughout Sensory Exam: no sensory deficits noted Extrem General: normal to inspection, full ROM, normal capillary refill and no edema Psych Appearance: grossly normal Mental Status: mental status grossly normal Speech and Movement: speech and movement normal Affect: normal affect Course Vital Signs Temperature 97.7 F 11/10/18 17:29 Pulse 87 11/10/18 17:29 Respiratory Rate 16 11/10/18 17:29 Blood Pressure 139/80 11/10/18 17:29 Pulse Oximetry 97 11/10/18 17:29 Temperature 97.7 F 11/10/18 17:29 Temperature Source Skin 11/10/18 17:29 Pulse 87 11/10/18 17:29 Respiratory Rate 17 11/10/18 17:33 Respiratory Effort Non-Labored 11/10/18 17:33 Respiratory Depth Normal 11/10/18 17:33 Respiratory Pattern Normal 11/10/18 17:33 Blood Pressure 139/80 11/10/18 17:29 Blood Pressure Position Sitting 11/10/18 17:29 Pulse Oximetry 97 11/10/18 17:29 Oxygen Delivery Method Room Air 11/10/18 17:29 Oxygen Flow Rate 0 11/10/18 17:29 Pain Level 0 11/10/18 17:29
[2018-11-10 20:13] VITALS: BP 134/80; PULSE 78; RESP 18; TEMP 36.8; O2SAT 97
== END 2018-11-10 20:14 | disposition home or self-care (01) ==
PROVIDERS: Emergency Provider Physician Assistant; PCP Internal Medicine
DX: R06.02 Shortness of breath (principal); F41.9 Anxiety disorder, unspecified; J44.9 Chronic obstructive pulmonary disease, unspecified
CPT/HCPCS: 99282

== ENCOUNTER 2018-11-12 18:02 | Emergency (ER) | payer MEDICAID, SELFPAY ==
[2018-11-12 18:18] VITALS: BP 126/77; PULSE 87; RESP 16; TEMP 36.6; O2SAT 95
--- NOTE | 2018-11-12 18:34 | ED.GENADUL_ITS ---
Discharge Plan Disposition Patient Disposition: HOME Condition: Stable Discharge Details Chief Complaint: Abd Prob Clinical Impression: Chronic abdominal pain Primary Care Provider: Deborah Chow ED Provider: Mj Chen Home Meds and New Rx's Prescriptions: New ondansetron 4 mg tablet,disintegrating 4 mg PO TID-QID PRN (Reason: nausea and vomiting) Qty: 30 RF: 0 Continued quetiapine [Seroquel] 50 mg tablet 50 mg PO QHS Qty: 90 RF: 0 Spiriva with HandiHaler 18 mcg capsule, w/inhalation device 1 cap Inhalation DAILY Qty: 90 RF: 0 docusate sodium [Stool Softener] 100 mg tablet 100 mg PO DAILY RF: 0 albuterol sulfate [ProAir HFA] 90 mcg/actuation HFA aerosol inhaler 2 puff Inhalation Q4H PRN PRN (Reason: Shortness Of Breath) Qty: 1 RF: 1 fluoxetine 20 mg tablet 20 mg PO DAILY Qty: 90 RF: 3 quetiapine [Seroquel] 25 mg tablet 25 mg PO BID Qty: 20 RF: 0 prednisone 20 mg tablet 20 mg PO BID RF: 0 lorazepam 1 mg tablet 1 mg PO Q6H PRN (Reason: anxiety) RF: 0 OptiChamber Advantage 1 EACH spacer 1 ea Miscellaneous DIRECTED RF: 0 albuterol sulfate 2.5 MG/3 ML solution for nebulization 2.5 mg Inhalation Q4H PRN PRN (Reason: Shortness Of Breath) 30 Days RF: 0 guaifenesin [Mucus Relief] 400 mg Tablet 400 mg PO Q4H PRNRF: 0 pantoprazole 40 mg tablet,delayed release (DR/EC) 40 mg PO DAILY Qty: 90 RF: 3 Symbicort 10.2 GM HFA aerosol inhaler 10.2 gm Inhalation BID Qty: 3 RF: 3 diphenhydramine HCl [Benadryl] 25 MG capsule 25 mg PO Q6H PRNRF: 0 meclizine 25 mg tablet 25 mg PO TID PRN (Reason: dizziness) Qty: 20 RF: 0 Discharge Instructions Additional Instructions: try to refrain from drinking alcohol follow up with your primary care provider within 1-2 weeks use the zofran as needed every 6 hours for nausea Medical Decision Making 63 yo male with hx of chronic pancreatitis and alcohol abuse who recently relapsed and started to have alcohol again after going months without it comes in with abdominal pain and n/v this morning after having alcohol yesterday. Denies fevers or chills. Had vomit this AM, denies n/v now and is in no distress on exam. He is laughing in no distres on exam with soft abdomen and no tenderness now. Given lack of symptoms now do not feel w/u indicated as I suspect this is likely from alcohol use and unlikely other etiologies such as pancreatitis and pneumoperitoneum or other surgical pathology given lack of tenderness, had negative CT in september with similar complaints and no aaa. Will d/c and advised f/u with pcp and return precautions given Differential Diagnosis chronic pancreatitis, anxiety, alcohol abuse HPI General Mode of arrival: ambulatory . Date/Time Provider Initiated Documentation: 11/12/18 18:12 . Limitations to Documentation: no limitations . Information obtained by: patient . History of Present Illness 63 year old M presents to the emergency department with the chief complaint of abdominal pain, described as moderate, Quality is described as aching, Patient started experiencing this year(s) (2) and it has been constant. No relieving factors improve symptom(s), No exacerbating factors reported . Patient did receive the following treatments prior to arrival, none Related Data Home Medications Medication Instructions Recorded [email or web address] 10/15/17 11/10/18 albuterol sulfate 2.5 mg INHALATION Q4H PRN PRN 30 10/15/17 11/10/18 Days ml albuterol sulfate HFA 90 2 puff INHALATION Q4H PRN PRN #1 07/02/18 11/10/18 mcg/actuation aerosol inhaler inh guaifenesin [Mucus Relief] 400 mg PO Q4H PRN 09/09/18 11/10/18 Symbicort 10.2 gm INHALATION BID #3 inhaler 09/21/18 11/10/18 pantoprazole 40 mg PO DAILY #90 tab 09/21/18 11/10/18 quetiapine 50 mg tablet 50 mg PO QHS #90 tab 09/26/18 11/10/18 tiotropium bromide 18 mcg capsule 1 cap INHALATION DAILY #90 inh 09/26/18 11/10/18 with inhalation device fluoxetine 20 mg tablet 20 mg PO DAILY #90 tab-cap 10/02/18 11/10/18 quetiapine 25 mg tablet 25 mg PO BID #20 tab 10/17/18 11/10/18 meclizine 25 mg PO TID PRN #20 tab 10/23/18 11/10/18 docusate sodium 100 mg tablet 100 mg PO DAILY 10/30/18 11/10/18 diphenhydramine HCl [Benadryl] 25 mg PO Q6H PRN 11/01/18 11/10/18 lorazepam 1 mg tablet 1 mg PO Q6H PRN tab 11/09/18 11/10/18 prednisone 20 mg tablet 20 mg PO BID tab 11/09/18 11/10/18 ondansetron 4 mg PO TID-QID PRN #30 tab 11/12/18 Previous Rx's Medication Instructions Recorded [facility] Advantage kit 10/15/17 albuterol sulfate 2.5 mg INHALATION Q4H PRN PRN 30 10/15/17 Days ml albuterol sulfate HFA 90 2 puff INHALATION Q4H PRN PRN #1 07/02/18 mcg/actuation aerosol inhaler inh Symbicort 10.2 gm INHALATION BID #3 inhaler 09/21/18 pantoprazole 40 mg PO DAILY #90 tab 09/21/18 quetiapine 50 mg tablet 50 mg PO QHS #90 tab 09/26/18 tiotropium bromide 18 mcg capsule 1 cap INHALATION DAILY #90 inh 09/26/18 with inhalation device fluoxetine 20 mg tablet 20 mg PO DAILY #90 tab-cap 10/02/18 quetiapine 25 mg tablet 25 mg PO BID #20 tab 10/17/18 meclizine 25 mg PO TID PRN #20 tab 10/23/18 ondansetron 4 mg PO TID-QID PRN #30 tab 11/12/18 Allergies Allergy/AdvReac Type Severity Reaction Status Date / Time No Known Allergies Allergy Verified 11/12/18 18:21 General Stated Complaint: Abd Prob FLASH: 3 Review of Systems Review of Systems All systems reviewed & are unremarkable except as noted in HPI and below Constitutional Denies chills, Denies fever(s) and Denies weakness Cardiovascular Denies chest pain and Denies dyspnea Respiratory Denies cough and Denies dyspnea Gastrointestinal Denies nausea Neurologic Denies weakness Endocrine Denies heat intolerance PFS Social History Smoking/Tobacco Use Status: Former Tobacco Use Quit Date: 06/05/98 Tobacco: How many years used: 30 Alcohol Intake: former Drug use: Never 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 Adopted: No Foster care: No Household members: family Housing: house Number of Children: 0 Communication Needs: None current occupation: not working Current gender identity: male What type of physical activity do you participate in: none and other Details: started lifting weights Frequency: daily Seatbelt use: always Drive 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 Exam Const General: no acute distress Orientation: alert HENMT Head: normal to inspection Ears: external ears normal General nose exam: external nose normal Mouth: moist mucous membranes Eyes General: appearance normal, both eyes and all related structures Neck Neck: normal visual inspection Resp Effort & Inspection: normal respiratory effort and able to speak in complete sentences Cardio Rate: regular rate GI Inspection: normal to inspection Skin General skin exam: no rashes or lesions noted Neuro General: alert and oriented x3 Extrem General: normal to inspection Psych Mental Status: mental status grossly normal Course Vital Signs Temperature 36.6 C 11/12/18 18:18 Pulse 87 11/12/18 18:18 Respiratory Rate 16 11/12/18 18:18 Blood Pressure 126/77 11/12/18 18:18 Pulse Oximetry 95 11/12/18 18:18 Temperature 36.6 C 11/12/18 18:18 Temperature Source Skin 11/12/18 18:18 Pulse 87 11/12/18 18:18 Respiratory Rate 16 11/12/18 18:18 Respiratory Effort Non-Labored 11/12/18 18:31 Blood Pressure 126/77 11/12/18 18:18 Blood Pressure Position Sitting 11/12/18 18:18 Pulse Oximetry 95 11/12/18 18:18 Oxygen Delivery Method Room Air 11/12/18 18:18 Oxygen Flow Rate 0 11/12/18 18:18 Pain Level 8 11/12/18 18:18 Comment 06/10/19 18:18
== END 2018-11-12 18:41 | disposition home or self-care (01) ==
PROVIDERS: Emergency Provider Emergency Medicine; PCP Internal Medicine
DX: R11.2 Nausea with vomiting, unspecified (principal); R10.9 Unspecified abdominal pain; F41.9 Anxiety disorder, unspecified; F10.10 Alcohol abuse, uncomplicated
CPT/HCPCS: 99283

== ENCOUNTER 2018-11-14 14:21 | Emergency (ER) | payer MEDICAID, SELFPAY ==
[2018-11-14 14:27] VITALS: BP 128/89; PULSE 89; RESP 16; TEMP 36.8; O2SAT 96
--- NOTE | 2018-11-14 14:55 | ED.GENADUL_ITS ---
Discharge Plan Disposition Patient Disposition: HOME Condition: Stable Discharge Details Chief Complaint: Anxiety Clinical Impression: Anxiety, At risk for polypharmacy Primary Care Provider: Deborah Chow ED Provider: Angelica Majano Home Meds and New Rx's Prescriptions: Continued quetiapine [Seroquel] 50 mg tablet 50 mg PO QHS Qty: 90 RF: 0 Spiriva with HandiHaler 18 mcg capsule, w/inhalation device 1 cap Inhalation DAILY Qty: 90 RF: 0 docusate sodium [Stool Softener] 100 mg tablet 100 mg PO DAILY RF: 0 morphine 15 mg tablet 7.5 mg PO QDAY MDD 15 PRN (Reason: dyspnea) Qty: 4 RF: 0 albuterol sulfate [ProAir HFA] 90 mcg/actuation HFA aerosol inhaler 2 puff Inhalation Q4H PRN PRN (Reason: Shortness Of Breath) Qty: 1 RF: 1 fluoxetine 20 mg tablet 20 mg PO DAILY Qty: 90 RF: 3 quetiapine [Seroquel] 25 mg tablet 25 mg PO BID Qty: 20 RF: 0 prednisone 20 mg tablet 20 mg PO BID RF: 0 lorazepam 1 mg tablet 1 mg PO Q6H PRN (Reason: anxiety) RF: 0 [employer] Advantage 1 EACH spacer 1 ea Miscellaneous DIRECTED RF: 0 albuterol sulfate 2.5 MG/3 ML solution for nebulization 2.5 mg Inhalation Q4H PRN PRN (Reason: Shortness Of Breath) 30 Days RF: 0 guaifenesin [Mucus Relief] 400 mg Tablet 400 mg PO Q4H PRNRF: 0 pantoprazole 40 mg tablet,delayed release (DR/EC) 40 mg PO DAILY Qty: 90 RF: 3 Symbicort 10.2 GM HFA aerosol inhaler 10.2 gm Inhalation BID Qty: 3 RF: 3 diphenhydramine HCl [Benadryl] 25 MG capsule 25 mg PO Q6H PRNRF: 0 meclizine 25 mg tablet 25 mg PO TID PRN (Reason: dizziness) Qty: 20 RF: 0 ondansetron 4 mg tablet,disintegrating 4 mg PO TID-QID PRN (Reason: nausea and vomiting) Qty: 30 RF: 0 Discharge Instructions Instructions: Anxiety (ED) Additional Instructions: Encourage hydration. Call recovery coaches, number given to you, if you have thoughts of drinking alcohol again. Please keep your appointment tomorrow with your primary care. If you develop fever/chills, chest pain or other new/worsening symptoms please seek care urgently once again. Please refer to your steroid therapy sheet if you develop any feelings of shortness of breath. Please discuss your anxiety regarding your numerous medications with your primary care tomorrow Referrals: Deborah Chow MD [Primary Care Provider] - Medical Decision Making Patient presents today with recurrent symptoms. Patient appears to be at his baseline. He does appear quite anxious. States he is anxious regarding the number of medications that he took about once. However, on review of medications, he did take this this will prescribe to him. Patient did not overdose. He is not attempting to overdose, suicidal ideation or thoughts of self-harm. His vital signs are reassuring, his oxygen is 96%. He was endorsing some tightness in his abdomen but has [place] no discomfort with palpation. His lungs are clear. He is not having any exertional symptoms or chest pain to suggest ACS. Patient appears to be at baseline for his anxiety that has been chronic and worked up for a multitude of times by both emergency department as well as primary care. Patient did recently have a relapse and began drinking again. He does have a history of lung cancer and is unable to have his treatment until his alcoholism is under control. We will have a disaster recovery consultant come to discuss patient's relapse with him. He denies any alcohol consumption today. basketball coach saw the patient but the patient became very anxious when they were in the room. They did give him information on how to contact them. I discussed this with the patient afterwards and he reports he will call them with any recurrent symptoms no fever she does encouraged to partake in alcohol once again. He has an appoint with his primary care tomorrow. He continues to feel anxious, again particularly around the number of medications he is taking. Advised to discuss this further with his primary care tomorrow as appointment. We discussed new/worsening symptoms when to seek care urgently once again. All questions and concerns were addressed and he is in agreement this plan. HPI General Mode of arrival: ambulatory . Date/Time Provider Initiated Documentation: 11/14/18 14:24 . Limitations to Documentation: no limitations . Information obtained by: patient and RN notes reviewed . HPI Narrative: Patient is 63-year-old male presenting today with chief complaint of tightness. Indicates his abdomen in regards to this and reports that he has had tightness in my breathing. He reports that this came on this afternoon after taking his medications. Reports that he became suddenly anxious after taking his medicines as he feels that he took many. Patient did recently begin taking morphine. Is concerned that he may have taken too many. I did review the medication list with the patient took all his medications as prescribed. Is now reporting that it is the shear number of medications that he is prescribed has some very anxious and symptomatic today. Denies any nausea or vomiting. No change in appetite. Had a large lunch at the time of the onset of symptoms. No pain in his back. No change in bowel or bladder habits. Related Data Home Medications Medication Instructions Recorded Confirmed [employer] Advantage kit 10/15/17 11/13/18 albuterol sulfate 2.5 mg INHALATION Q4H PRN PRN 30 10/15/17 11/14/18 Days ml albuterol sulfate HFA 90 2 puff INHALATION Q4H PRN PRN #1 07/02/18 11/14/18 mcg/actuation aerosol inhaler inh guaifenesin [Mucus Relief] 400 mg PO Q4H PRN 09/09/18 11/14/18 Symbicort 10.2 gm INHALATION BID #3 inhaler 09/21/18 11/13/18 pantoprazole 40 mg PO DAILY #90 tab 09/21/18 11/14/18 quetiapine 50 mg tablet 50 mg PO QHS #90 tab 09/26/18 11/14/18 tiotropium bromide 18 mcg capsule 1 cap INHALATION DAILY #90 inh 09/26/18 11/14/18 with inhalation device fluoxetine 20 mg tablet 20 mg PO DAILY #90 tab-cap 10/02/18 11/14/18 quetiapine 25 mg tablet 25 mg PO BID #20 tab 10/17/18 11/14/18 meclizine 25 mg PO TID PRN #20 tab 10/23/18 11/14/18 docusate sodium 100 mg tablet 100 mg PO DAILY 10/30/18 11/14/18 diphenhydramine HCl [Benadryl] 25 mg PO Q6H PRN 11/01/18 11/14/18 lorazepam 1 mg tablet 1 mg PO Q6H PRN tab 11/09/18 11/13/18 prednisone 20 mg tablet 20 mg PO BID tab 11/09/18 11/14/18 ondansetron 4 mg PO TID-QID PRN #30 tab 11/12/18 11/14/18 morphine 15 mg immediate release 7.5 mg PO QDAY PRN #4 tab MDD 15 11/13/18 11/14/18 tablet Previous Rx's Medication Instructions Recorded [employer] Advantage kit 10/15/17 albuterol sulfate 2.5 mg INHALATION Q4H PRN PRN 30 10/15/17 Days ml albuterol sulfate HFA 90 2 puff INHALATION Q4H PRN PRN #1 07/02/18 mcg/actuation aerosol inhaler inh Symbicort 10.2 gm INHALATION BID #3 inhaler 09/21/18 pantoprazole 40 mg PO DAILY #90 tab 09/21/18 quetiapine 50 mg tablet 50 mg PO QHS #90 tab 09/26/18 tiotropium bromide 18 mcg capsule 1 cap INHALATION DAILY #90 inh 09/26/18 with inhalation device fluoxetine 20 mg tablet 20 mg PO DAILY #90 tab-cap 10/02/18 quetiapine 25 mg tablet 25 mg PO BID #20 tab 10/17/18 meclizine 25 mg PO TID PRN #20 tab 10/23/18 ondansetron 4 mg PO TID-QID PRN #30 tab 11/12/18 morphine 15 mg immediate release 7.5 mg PO QDAY PRN #4 tab MDD 15 11/13/18 tablet Allergies Allergy/AdvReac Type Severity Reaction Status Date / Time No Known Allergies Allergy Verified 11/13/18 12:34 General FLASH: 3 Review of Systems Constitutional Reports as per HPI, Denies chills, Denies fatigue, Denies fever(s) and Denies headache(s) ENT Denies headache(s) Cardiovascular Reports as per HPI, Denies chest pain and Reports dyspnea (Chronic, unchanged from baseline) Respiratory Reports as per HPI, Denies cough and Reports dyspnea (Chronic, unchanged from baseline) Gastrointestinal Reports as per HPI Genitourinary Denies system reviewed and no additional complaints, except as docu (patient denies any change in urinary habits) Musculoskeletal Reports as per HPI and Denies back pain Integumentary/Breasts Reports as per HPI and Denies rash Neurologic Reports as per HPI and Denies headache(s) Endocrine Denies fatigue PFSH Social History Smoking/Tobacco Use Status: Former Tobacco Use Quit Date: 06/05/98 Tobacco: How many years used: 30 Alcohol Intake: former Drug use: Never 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 Adopted: No Foster care: No Household members: family Housing: house Number of Children: 0 Communication Needs: None current occupation: not working Current gender identity: male What type of physical activity do you participate in: none and other Details: started lifting weights Frequency: daily Seatbelt use: always Drive intox 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 Exam Const General: cooperative, comfortable, no acute distress, well developed and ill appearing chronically Nutritional Appearance: well nourished and thin Orientation: alert and awake HENMT Head: normal to inspection Mouth: moist mucous membranes Resp Effort & Inspection: normal respiratory effort, able to speak in complete sentences and no respiratory distress Auscultation: clear to auscultation bilaterally, no rales, no rhonchi and no wheezes Cardio Rate: regular rate Rhythm: regular rhythm Heart Sounds: S1 normal and S2 normal GI Inspection: normal to inspection, no abdominal wall ecchymosis, no edema and non-distended Palpation: soft, no hepatosplenomegaly, not firm, no guarding, not rigid, nontender and No ascites Percussion: normal to percussion Auscultation: normal bowel sounds Back/Spine/Pelvis Back: no CVA tenderness Skin General skin exam: no rashes or lesions noted Trauma: no lacerations or abrasions Neuro General: alert and awake Cognition: normal cognition Speech: speech normal Gait: normal gait Psych Appearance: grossly normal and well kempt Mental Status: mental status grossly normal Speech and Movement: speech and movement normal
== END 2018-11-14 15:59 | disposition home or self-care (01) ==
PROVIDERS: Emergency Provider Physician Assistant; PCP Internal Medicine
DX: F41.9 Anxiety disorder, unspecified (principal); F10.10 Alcohol abuse, uncomplicated
CPT/HCPCS: 99283

== ENCOUNTER 2018-11-14 18:54 | Emergency (ER) | payer MEDICAID, SELFPAY ==
[2018-11-14 19:12] VITALS: BP 116/70; PULSE 82; RESP 16; TEMP 36.4; O2SAT 98
--- NOTE | 2018-11-14 20:55 | W.ED.GENAD ---
Discharge Plan Disposition Patient Disposition: HOME Condition: Stable Discharge Details Chief Complaint: SOB Clinical Impression: Sore throat Primary Care Provider: Deborah Chow ED Provider: Radha Lizarraga Home Meds and New Rx's Prescriptions: Continued quetiapine [Seroquel] 50 mg tablet 50 mg PO QHS Qty: 90 RF: 0 Spiriva with HandiHaler 18 mcg capsule, w/inhalation device 1 cap Inhalation DAILY Qty: 90 RF: 0 docusate sodium [Stool Softener] 100 mg tablet 100 mg PO DAILY RF: 0 morphine 15 mg tablet 7.5 mg PO QDAY MDD 15 PRN (Reason: dyspnea) Qty: 4 RF: 0 albuterol sulfate [ProAir HFA] 90 mcg/actuation HFA aerosol inhaler 2 puff Inhalation Q4H PRN PRN (Reason: Shortness Of Breath) Qty: 1 RF: 1 fluoxetine 20 mg tablet 20 mg PO DAILY Qty: 90 RF: 3 lorazepam 1 mg tablet 1 mg PO Q6H PRN (Reason: anxiety) RF: 0 [employer] Advantage 1 EACH spacer 1 ea Miscellaneous DIRECTED RF: 0 albuterol sulfate 2.5 MG/3 ML solution for nebulization 2.5 mg Inhalation Q4H PRN PRN (Reason: Shortness Of Breath) 30 Days RF: 0 pantoprazole 40 mg tablet,delayed release (DR/EC) 40 mg PO DAILY Qty: 90 RF: 3 Symbicort 10.2 GM HFA aerosol inhaler 10.2 gm Inhalation BID Qty: 3 RF: 3 diphenhydramine HCl [Benadryl] 25 MG capsule 25 mg PO Q6H PRNRF: 0 meclizine 25 mg tablet 25 mg PO TID PRN (Reason: dizziness) Qty: 20 RF: 0 ondansetron 4 mg tablet,disintegrating 4 mg PO TID-QID PRN (Reason: nausea and vomiting) Qty: 30 RF: 0 No Action prednisone 20 mg tablet 20 mg PO BID RF: 0 magnesium citrate solution 75 ml PO DAILY PRN (Reason: constipation) Qty: 296 RF: 1 lactulose 20 gram/30 mL solution 20 gm PO TID Qty: 500 RF: 0 quetiapine [Seroquel] 25 mg tablet 25 mg PO DAILY Qty: 30 RF: 0 hydroxyzine HCl 25 mg tablet 25 mg PO TID PRN (Reason: anxiety) Qty: 90 RF: 0 guaifenesin [Mucus Relief] 400 mg tablet 400 mg PO Q4H PRNRF: 0 docusate sodium [Colace] 100 mg capsule 200 mg PO QHS PRN (Reason: constipation) Qty: 6 RF: 0 Discharge Instructions Instructions: Pharyngitis (ED) Additional Instructions: Please return to the emergency department if you develop any new or worsening symptoms or if you become otherwise concerned. It is extremely important that you call as soon as possible to make an appointment to be in follow-up by your primary care doctor. Referrals: Deborah Chow MD [Primary Care Provider] - Discharge Data Discharge Date/Time-TO BE ENTERED AT DEPARTURE: 11/14/18 20:57 Medical Decision Making Iggy Urias is a 63 y/o man with h/o lung cancer, COPD, heavy etoh use, anxiety who presented to the emergency department with sore throat. Very well appearing on exam. Erythema of the posterior pharynx without other abnormal findings. Concern for possible bacterial or viral pharyngitis. Exam/hx not c/w retropharyngeal abscess, pertonsillar abscess, other deep space infection, impending airway compromise, other acute emergenct life threatening process. Plan for strep screen. Rapid strep negative. I had a lengthy discussion with the Pt re: RTED precautions, importance of outpt f/u, and home care. Pt verbalized understanding of the plan and was amenable. All questions were answered. Medical Records Medical records reviewed: Yes I reviewed the patient's medical records. Lab Data Lab results reviewed: Yes I reviewed the patient's lab results. HPI General Mode of arrival: ambulatory. Date/Time Provider Initiated Documentation: 11/14/18 20:29. Limitations to Documentation: no limitations. Information obtained by: patient, RN notes reviewed and old records reviewed. HPI Narrative: Iggy Urias is a 63 y/o man with h/o lung cancer, COPD, h/o heavy etoh use, GERD anxiety presenting to the emergency department with sore throat. Pt presented here earlier today with concern for taking too much of his medication, then went to his PCP's office where he was seen by his PCP. Now stating that his throat hurts. Triage note states complaint of SOB and lump in throat, however Pt denies these complaints to me and states that his throat just feels sore. No other pain. No fever, no n/v/d. Feels otherwise well. Has been eating and drinking as usual. No difficulty swallowing. Related Data Home Medications Medication Instructions Recorded Confirmed [employer] Advantage kit 10/15/17 12/04/18 albuterol sulfate 2.5 mg INHALATION Q4H PRN PRN 30 10/15/17 12/04/18 Days ml albuterol sulfate HFA 90 2 puff INHALATION Q4H PRN PRN #1 07/02/18 12/04/18 mcg/actuation aerosol inhaler inh Symbicort 10.2 gm INHALATION BID #3 inhaler 09/21/18 12/04/18 pantoprazole 40 mg PO DAILY #90 tab 09/21/18 12/04/18 quetiapine 50 mg tablet 50 mg PO QHS #90 tab 09/26/18 12/04/18 tiotropium bromide 18 mcg capsule 1 cap INHALATION DAILY #90 inh 09/26/18 12/04/18 with inhalation device fluoxetine 20 mg tablet 20 mg PO DAILY #90 tab-cap 10/02/18 12/04/18 meclizine 25 mg PO TID PRN #20 tab 10/23/18 12/04/18 docusate sodium 100 mg tablet 100 mg PO DAILY 10/30/18 12/04/18 diphenhydramine HCl [Benadryl] 25 mg PO Q6H PRN 11/01/18 12/04/18 lorazepam 1 mg tablet 1 mg PO Q6H PRN tab 11/09/18 12/04/18 ondansetron 4 mg PO TID-QID PRN #30 tab 11/12/18 12/04/18 morphine 15 mg immediate release 7.5 mg PO QDAY PRN #4 tab MDD 15 11/13/18 12/04/18 tablet prednisone 20 mg tablet 20 mg PO BID 11/20/18 12/04/18 magnesium citrate oral solution 75 ml PO DAILY PRN #296 ml 11/28/18 12/04/18 docusate sodium [Colace] 200 mg PO QHS PRN #6 cap 11/29/18 12/04/18 guaifenesin 400 mg tablet 400 mg PO Q4H PRN 12/04/18 12/04/18 hydroxyzine HCl 25 mg tablet 25 mg PO TID PRN #90 tab 12/04/18 lactulose 20 gram/30 mL oral 20 gm PO TID #500 ml 12/04/18 solution quetiapine 25 mg tablet 25 mg PO DAILY #30 tab 12/04/18 Previous Rx's Medication Instructions Recorded [employer] Advantage kit 10/15/17 albuterol sulfate 2.5 mg INHALATION Q4H PRN PRN 30 10/15/17 Days ml albuterol sulfate HFA 90 2 puff INHALATION Q4H PRN PRN #1 07/02/18 mcg/actuation aerosol inhaler inh Symbicort 10.2 gm INHALATION BID #3 inhaler 09/21/18 pantoprazole 40 mg PO DAILY #90 tab 09/21/18 quetiapine 50 mg tablet 50 mg PO QHS #90 tab 09/26/18 tiotropium bromide 18 mcg capsule 1 cap INHALATION DAILY #90 inh 09/26/18 with inhalation device fluoxetine 20 mg tablet 20 mg PO DAILY #90 tab-cap 10/02/18 meclizine 25 mg PO TID PRN #20 tab 10/23/18 ondansetron 4 mg PO TID-QID PRN #30 tab 11/12/18 morphine 15 mg immediate release 7.5 mg PO QDAY PRN #4 tab MDD 15 11/13/18 tablet magnesium citrate oral solution 75 ml PO DAILY PRN #296 ml 11/28/18 docusate sodium [Colace] 200 mg PO QHS PRN #6 cap 11/29/18 hydroxyzine HCl 25 mg tablet 25 mg PO TID PRN #90 tab 12/04/18 lactulose 20 gram/30 mL oral 20 gm PO TID #500 ml 12/04/18 solution quetiapine 25 mg tablet 25 mg PO DAILY #30 tab 12/04/18 Allergies Allergy/AdvReac Type Severity Reaction Status Date / Time No Known Allergies Allergy Verified 12/04/18 11:07 General Stated Complaint: SOB FLASH: 4 Review of Systems Review of Systems Constitutional: denies fevers Eyes: denies eye pain ENT: denies facial pain, dental pain, reports sore throat Cardiovascular: denies chest pain Respiratory: denies SOB, cough GI: denies abdominal pain, vomiting, diarrhea : denies flank pain MSK: denies back pain, neck pain, arthralgias, myalgias Skin: denies rash Neuro: denies headaches PFSH Medical History COPD (chronic obstructive pulmonary disease) (Chronic) Adjustment disorder with anxiety (Chronic) Alcohol abuse (Chronic) Anxiety (Chronic) Dyspepsia (Chronic) Malignant neoplasm of right lung (Chronic) Tubular adenoma of colon (Inactive) Social History Smoking/Tobacco Use Status: Former Tobacco Use Quit Date: 06/05/98 Tobacco: How many years used: 30 Alcohol Intake: former Drug use: Never 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 Adopted: No Foster care: No Household members: family Housing: house Number of Children: 0 Communication Needs: None current occupation: not working Current gender identity: male What type of physical activity do you participate in: none and other Details: started lifting weights Frequency: daily Seatbelt use: always Drive 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 Exam Narrative Exam Narrative: Constitutional: well and [id number], pleasant, conversing normally HENT: head atraumatic/normocephalic/normal inspection, mucous membranes moist, posterior pharynx erythematous, no tonsillar edema/erythema/exudate, uvula midline, normal voice, handling secretions without issue, no intraoral lesion Eyes: conjunctiva normal, sclera normal, pupils 3mm b/l Neck: no stridor, normal ROM, trachea midline Resp: normal work of breathing Cardio: normal rate, normal rhythm Skin: warm, dry, normal color, no rash Neuro: alert, not altered, grossly non-focal, normal tone Psych: normal mood, normal affect, normal behavior Course Vital Signs Temperature 36.4 C L 11/14/18 19:12 Pulse 82 11/14/18 19:12 Respiratory Rate 16 11/14/18 19:12 Blood Pressure 116/70 11/14/18 19:12 Pulse Oximetry 98 11/14/18 19:12 Temperature 36.4 C L 11/14/18 19:12 Temperature Source Temporal Artery Scan 11/14/18 19:12 Pulse 82 11/14/18 19:12 Respiratory Rate 16 11/14/18 19:12 Blood Pressure 116/70 11/14/18 19:12 Blood Pressure Position Sitting 11/14/18 19:12 Pulse Oximetry 98 11/14/18 19:12 Oxygen Delivery Method Room Air 11/14/18 19:12 Oxygen Flow Rate 0 11/14/18 19:12 Lab/Test Results Lab/Test Results: 11/14/18 20:00 Pharynx Streptococcus Screen ([facility]) - Pending POC Strep Test-TEX(Rapid) Start: 11/14/18 20:29 Freq: .Rapid Strep Test Status: Active Protocol: Document 11/14/18 20:45 MM (Rec: 11/14/18 20:45 MM [id number]) Strep test-TEX(Rapid)-POC POC-Strep test-TEX (Rapid) Negative POC-Strep test-TEX (Rapid) Negative
--- NOTE | 2018-12-06 23:03 | ED.GENADUL_ITS ---
Discharge Plan Disposition Patient Disposition: HOME Condition: Stable Discharge Details Chief Complaint: SOB Clinical Impression: Sore throat Primary Care Provider: Deborah Chow ED Provider: Radha Lizarraga Home Meds and New Rx's Prescriptions: Continued quetiapine [Seroquel] 50 mg tablet 50 mg PO QHS Qty: 90 RF: 0 Spiriva with HandiHaler 18 mcg capsule, w/inhalation device 1 cap Inhalation DAILY Qty: 90 RF: 0 docusate sodium [Stool Softener] 100 mg tablet 100 mg PO DAILY RF: 0 morphine 15 mg tablet 7.5 mg PO QDAY MDD 15 PRN (Reason: dyspnea) Qty: 4 RF: 0 albuterol sulfate [ProAir HFA] 90 mcg/actuation HFA aerosol inhaler 2 puff Inhalation Q4H PRN PRN (Reason: Shortness Of Breath) Qty: 1 RF: 1 fluoxetine 20 mg tablet 20 mg PO DAILY Qty: 90 RF: 3 lorazepam 1 mg tablet 1 mg PO Q6H PRN (Reason: anxiety) RF: 0 OptiChamber Advantage 1 EACH spacer 1 ea Miscellaneous DIRECTED RF: 0 albuterol sulfate 2.5 MG/3 ML solution for nebulization 2.5 mg Inhalation Q4H PRN PRN (Reason: Shortness Of Breath) 30 Days RF: 0 pantoprazole 40 mg tablet,delayed release (DR/EC) 40 mg PO DAILY Qty: 90 RF: 3 Symbicort 10.2 GM HFA aerosol inhaler 10.2 gm Inhalation BID Qty: 3 RF: 3 diphenhydramine HCl [Benadryl] 25 MG capsule 25 mg PO Q6H PRNRF: 0 meclizine 25 mg tablet 25 mg PO TID PRN (Reason: dizziness) Qty: 20 RF: 0 ondansetron 4 mg tablet,disintegrating 4 mg PO TID-QID PRN (Reason: nausea and vomiting) Qty: 30 RF: 0 No Action prednisone 20 mg tablet 20 mg PO BID RF: 0 magnesium citrate solution 75 ml PO DAILY PRN (Reason: constipation) Qty: 296 RF: 1 lactulose 20 gram/30 mL solution 20 gm PO TID Qty: 500 RF: 0 quetiapine [Seroquel] 25 mg tablet 25 mg PO DAILY Qty: 30 RF: 0 hydroxyzine HCl 25 mg tablet 25 mg PO TID PRN (Reason: anxiety) Qty: 90 RF: 0 guaifenesin [Mucus Relief] 400 mg tablet 400 mg PO Q4H PRNRF: 0 docusate sodium [Colace] 100 mg capsule 200 mg PO QHS PRN (Reason: constipation) Qty: 6 RF: 0 Discharge Instructions Instructions: Pharyngitis (ED) Additional Instructions: Please return to the emergency department if you develop any new or worsening symptoms or if you become otherwise concerned. It is extremely important that you call as soon as possible to make an appointment to be in follow-up by your primary care doctor. Referrals: Deborah Chow MD [Primary Care Provider] - Discharge Data Discharge Date/Time-TO BE ENTERED AT DEPARTURE: 11/14/18 20:57 Medical Decision Making Iggy Urias is a 63 y/o man with h/o lung cancer, COPD, heavy etoh use, anxiety who presented to the emergency department with sore throat. Very well appearing on exam. Erythema of the posterior pharynx without other abnormal fin dings. Concern for possible bacterial or viral pharyngitis. Exam/hx not c/w retropharyngeal abscess, pertonsillar abscess, other deep space infection, impending airway compromise, other acute emergenct life threatening process. Plan for strep screen. Rapid strep negative. I had a lengthy discussion with the Pt re: RTED precautions, importance of outpt f/u, and home care. Pt verbalized understanding of the plan and was amenable. All questions were answered. Medical Records Medical records reviewed: Yes I reviewed the patient's medical records. Lab Data Lab results reviewed: Yes I reviewed the patient's lab results. HPI General Mode of arrival: ambulatory . Date/Time Provider Initiated Documentation: 11/14/18 20:29 . Limitations to Documentation: no limitations . Information obtained by: patient, RN notes reviewed and old records reviewed . HPI Narrative: Iggy Urias is a 63 y/o man with h/o lung cancer, COPD, h/o heavy etoh use, GERD anxiety presenting to the emergency department with sore throat. Pt presented here earlier today with concern for taking too much of his medication, then went to his PCP's office where he was seen by his PCP. Now stating that his throat hurts. Triage note states complaint of SOB and lump in throat, however Pt denies these complaints to me and states that his throat just feels sore. No other pain. No fever, no n/v/d. Feels otherwise well. Has been eating and drinking as usual. No difficulty swallowing. Related Data Home Medications Medication Instructions Recorded [facility] kit 10/15/17 12/04/18 albuterol sulfate 2.5 mg INHALATION Q4H PRN PRN 30 10/15/17 12/04/18 Days ml albuterol sulfate HFA 90 2 puff INHALATION Q4H PRN PRN #1 07/02/18 12/04/18 mcg/actuation aerosol inhaler inh Symbicort 10.2 gm INHALATION BID #3 inhaler 09/21/18 12/04/18 pantoprazole 40 mg PO DAILY #90 tab 09/21/18 12/04/18 quetiapine 50 mg tablet 50 mg PO QHS #90 tab 09/26/18 12/04/18 tiotropium bromide 18 mcg capsule 1 cap INHALATION DAILY #90 inh 09/26/18 12/04/18 with inhalation device fluoxetine 20 mg tablet 20 mg PO DAILY #90 tab-cap 10/02/18 12/04/18 meclizine 25 mg PO TID PRN #20 tab 10/23/18 12/04/18 docusate sodium 100 mg tablet 100 mg PO DAILY 10/30/18 12/04/18 diphenhydramine HCl [Benadryl] 25 mg PO Q6H PRN 11/01/18 12/04/18 lorazepam 1 mg tablet 1 mg PO Q6H PRN tab 11/09/18 12/04/18 ondansetron 4 mg PO TID-QID PRN #30 tab 11/12/18 12/04/18 morphine 15 mg immediate release 7.5 mg PO QDAY PRN #4 tab MDD 15 11/13/18 12/04/18 tablet prednisone 20 mg tablet 20 mg PO BID 11/20/18 12/04/18 magnesium citrate oral solution 75 ml PO DAILY PRN #296 ml 11/28/18 12/04/18 docusate sodium [Colace] 200 mg PO QHS PRN #6 cap 11/29/18 12/04/18 guaifenesin 400 mg tablet 400 mg PO Q4H PRN 12/04/18 12/04/18 hydroxyzine HCl 25 mg tablet 25 mg PO TID PRN #90 tab 12/04/18 lactulose 20 gram/30 mL oral 20 gm PO TID #500 ml 12/04/18 solution quetiapine 25 mg tablet 25 mg PO DAILY #30 tab 12/04/18 Previous Rx's Medication Instructions Recorded [employer] Advantage kit 10/15/17 albuterol sulfate 2.5 mg INHALATION Q4H PRN PRN 30 10/15/17 Days ml albuterol sulfate HFA 90 2 puff INHALATION Q4H PRN PRN #1 07/02/18 mcg/actuation aerosol inhaler inh Symbicort 10.2 gm INHALATION BID #3 inhaler 09/21/18 pantoprazole 40 mg PO DAILY #90 tab 09/21/18 quetiapine 50 mg tablet 50 mg PO QHS #90 tab 09/26/18 tiotropium bromide 18 mcg capsule 1 cap INHALATION DAILY #90 inh 09/26/18 with inhalation device fluoxetine 20 mg tablet 20 mg PO DAILY #90 tab-cap 10/02/18 meclizine 25 mg PO TID PRN #20 tab 10/23/18 ondansetron 4 mg PO TID-QID PRN #30 tab 11/12/18 morphine 15 mg immediate release 7.5 mg PO QDAY PRN #4 tab MDD 15 11/13/18 tablet magnesium citrate oral solution 75 ml PO DAILY PRN #296 ml 11/28/18 docusate sodium [Colace] 200 mg PO QHS PRN #6 cap 11/29/18 hydroxyzine HCl 25 mg tablet 25 mg PO TID PRN #90 tab 12/04/18 lactulose 20 gram/30 mL oral 20 gm PO TID #500 ml 12/04/18 solution quetiapine 25 mg tablet 25 mg PO DAILY #30 tab 12/04/18 Allergies Allergy/AdvReac Type Severity Reaction Status Date / Time No Known Allergies Allergy Verified 12/04/18 11:07 General Stated Complaint: SOB FLASH: 4 Review of Systems Review of Systems Constitutional: denies fevers Eyes: denies eye pain ENT: denies facial pain, dental pain, reports sore throat Cardiovascular: denies chest pain Respiratory: denies SOB, cough GI: denies abdominal pain, vomiting, diarrhea : denies flank pain MSK: denies back pain, neck pain, arthralgias, myalgias Skin: denies rash Neuro: denies headaches PFSH Medical History COPD (chronic obstructive pulmonary disease) (Chronic) Adjustment disorder with anxiety (Chronic) Alcohol abuse (Chronic) Anxiety (Chronic) Dyspepsia (Chronic) Malignant neoplasm of right lung (Chronic) Tubular adenoma of colon (Inactive) Social History Smoking/Tobacco Use Status: Former Tobacco Use Quit Date: 06/05/98 Tobacco: How many years used: 30 Alcohol Intake: former Drug use: Never 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 Adopted: No Foster care: No Household members: family Housing: house Number of Children: 0 Communication Needs: None current occupation: not working Current gender identity: male What type of physical activity do you participate in: none and other Details: started lifting weights Frequency: daily Seatbelt use: always Drive intox or ride w/intox helper 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 Exam Narrative Exam Narrative: Constitutional: well and [id number], pleasant, conversing normally HENT: head atraumatic/normocephalic/normal inspection, mucous membranes moist, posterior pharynx erythematous, no tonsillar edema/erythema/exudate, uvula midline, normal voice, handling secretions without issue, no intraoral lesion Eyes: conjunctiva normal, sclera normal, pupils 3mm b/l Neck: no stridor, normal ROM, trachea midline Resp: normal work of breathing Cardio: normal rate, normal rhythm Skin: warm, dry, normal color, no rash Neuro: alert, not altered, grossly non-focal, normal tone Psych: normal mood, normal affect, normal behavior Course Vital Signs Temperature 36.4 C L 11/14/18 19:12 Pulse 82 11/14/18 19:12 Respiratory Rate 16 11/14/18 19:12 Blood Pressure 116/70 11/14/18 19:12 Pulse Oximetry 98 11/14/18 19:12 Temperature 36.4 C L 11/14/18 19:12 Temperature Source Temporal Artery Scan 11/14/18 19:12 Pulse 82 11/14/18 19:12 Respiratory Rate 16 11/14/18 19:12 Blood Pressure 116/70 11/14/18 19:12 Blood Pressure Position Sitting 11/14/18 19:12 Pulse Oximetry 98 11/14/18 19:12 Oxygen Delivery Method Room Air 11/14/18 19:12 Oxygen Flow Rate 0 11/14/18 19:12 Lab/Test Results Lab/Test Results: 11/14/18 20:00 Pharynx Streptococcus Screen ([facility]) - Pending POC Strep Test-TEX(Rapid) Start: 11/14/18 20:29 Freq: .Rapid Strep Test Status: Active Protocol: Document 11/14/18 20:45 MM (Rec: 11/14/18 20:45 MM [id number]) Strep test-TEX(Rapid)-POC POC-Strep test-TEX (Rapid) Negative POC-Strep test-TEX (Rapid) Negative
== END 2018-11-14 20:57 | disposition home or self-care (01) ==
PROVIDERS: Emergency Provider Student in an Organized Health Care Education/Training Program; PCP Internal Medicine
DX: J02.9 Acute pharyngitis, unspecified (principal); R06.02 Shortness of breath; J44.9 Chronic obstructive pulmonary disease, unspecified; Z87.891 Personal history of nicotine dependence
CPT/HCPCS: 87880; 99282; 87081

== ENCOUNTER 2018-11-15 17:54 | Emergency (ER) | payer MEDICAID, SELFPAY ==
[2018-11-15 17:56] VITALS: BP 138/91; PULSE 83; RESP 14; TEMP 36.8; O2SAT 98
--- NOTE | 2018-11-15 18:00 | ED.GENADUL_ITS ---
Discharge Plan Disposition Patient Disposition: HOME Condition: Good Discharge Details Chief Complaint: Anxiety Clinical Impression: Cough Primary Care Provider: Deborah Chow ED Provider: Pedro Nichole Home Meds and New Rx's Prescriptions: No Action quetiapine [Seroquel] 50 mg tablet 50 mg PO QHS Qty: 90 RF: 0 Spiriva with HandiHaler 18 mcg capsule, w/inhalation device 1 cap Inhalation DAILY Qty: 90 RF: 0 docusate sodium [Stool Softener] 100 mg tablet 100 mg PO DAILY RF: 0 morphine 15 mg tablet 7.5 mg PO QDAY MDD 15 PRN (Reason: dyspnea) Qty: 4 RF: 0 albuterol sulfate [ProAir HFA] 90 mcg/actuation HFA aerosol inhaler 2 puff Inhalation Q4H PRN PRN (Reason: Shortness Of Breath) Qty: 1 RF: 1 fluoxetine 20 mg tablet 20 mg PO DAILY Qty: 90 RF: 3 quetiapine [Seroquel] 25 mg tablet 25 mg PO BID Qty: 20 RF: 0 lorazepam 1 mg tablet 1 mg PO Q6H PRN (Reason: anxiety) RF: 0 OptiChamber Advantage 1 EACH spacer 1 ea Miscellaneous DIRECTED RF: 0 albuterol sulfate 2.5 MG/3 ML solution for nebulization 2.5 mg Inhalation Q4H PRN PRN (Reason: Shortness Of Breath) 30 Days RF: 0 guaifenesin [Mucus Relief] 400 mg Tablet 400 mg PO Q4H PRNRF: 0 pantoprazole 40 mg tablet,delayed release (DR/EC) 40 mg PO DAILY Qty: 90 RF: 3 Symbicort 10.2 GM HFA aerosol inhaler 10.2 gm Inhalation BID Qty: 3 RF: 3 diphenhydramine HCl [Benadryl] 25 MG capsule 25 mg PO Q6H PRNRF: 0 meclizine 25 mg tablet 25 mg PO TID PRN (Reason: dizziness) Qty: 20 RF: 0 ondansetron 4 mg tablet,disintegrating 4 mg PO TID-QID PRN (Reason: nausea and vomiting) Qty: 30 RF: 0 Discharge Instructions Instructions: Chronic Cough (ED) Additional Instructions: Please follow-up closely at your already scheduled appointment with your cancer specialist, as your primary doctor advised you today. If you notice any worsening of your symptoms, or any new symptoms such as vomiting, diarrhea, fever, chills, shortness of breath, chest pain, numbness, weakness, or fainting , please return immediately to the emergency department for reevaluation. Please follow up with your primary care provider as soon as possible for reassessment and reevaluation. As always, it was a pleasure participating in your medical care today. Referrals: Deborah Chow MD [Primary Care Provider] - Discharge Data Discharge Date/Time-TO BE ENTERED AT DEPARTURE: 11/15/18 18:16 Medical Decision Making This is a 63-year-old male who is well-known to the emergency department, who presents today for evaluation of a single episode of a small amount of blood streaking in his sputum. He has had episodes of cough and sputum after this with no subsequent hemoptysis. He does have a known history of cancer in the past as well as suspected radiation pneumonitis. Patient states that he has seen his PCP in regards to this, and they are working on scheduling follow-up on an outpatient basis with the previous oncology clinics. He states that he does not want any help in regards to this. Patient's physical exam demonstrates normal lung sounds, pulse oximetry of 99% on room air, normal vital signs, in no acute distress whatsoever. No acute components noted on medical exam. Clinically he shows no signs of respiratory distress, or severe lung disease. He is on no blood thinners. At this time we discussed further work-up versus outpatient follow-up, and the patient has agreed to outpatient follow-up. With no signs of an acute life-threatening etiology at this point clinically I do not feel that there is any further work-up currently clinically indicated. Since he has already discussed these types of findings with his PCP and per the patient is working on outpatient pulmonary and oncology follow-up, feel that it is reasonable to allow this to continue on an outpatient basis. Discussed red flags which to return, the importance of this follow-up. I have extensively reviewed the treatment plan and discharge instructions with the patient. I have addressed all patient concerns at this time. The patient was made aware of what symptoms to monitor for that would warrant a return to the emergency department. Discussed the plan with the patient, they demonstrate verbal understanding and agreement with our assessment and plan at this time. HPI General Date/Time Provider Initiated Documentation: 11/15/18 17:54 . HPI Narrative: This is a 63-year-old male who is well-known to the emergency department who presents today for evaluation of cough. Patient states that he does have a chronic cough, however he states that today during his coughing he had one episode where there was a small amount of blood-tinged sputum. He is cough since then and has had none blood-tinged sputum. He has a history of known malignancy. He states that he is already seen his primary care provider about this, and has been following up with her, and he states that he is getting follow-up scheduled at the cancer clinic through his PCP. He denies any complaints of shortness of breath chest pain, or other abnormalities. No other changes aside from his chronic state. Related Data Home Medications Medication Instructions Recorded Confirmed Figure 1 Advantage kit 10/15/17 11/14/18 albuterol sulfate 2.5 mg INHALATION Q4H PRN PRN 30 10/15/17 11/14/18 Days ml albuterol sulfate HFA 90 2 puff INHALATION Q4H PRN PRN #1 07/02/18 11/14/18 mcg/actuation aerosol inhaler inh guaifenesin [Mucus Relief] 400 mg PO Q4H PRN 09/09/18 11/14/18 Symbicort 10.2 gm INHALATION BID #3 inhaler 09/21/18 11/14/18 pantoprazole 40 mg PO DAILY #90 tab 09/21/18 11/14/18 quetiapine 50 mg tablet 50 mg PO QHS #90 tab 09/26/18 11/14/18 tiotropium bromide 18 mcg capsule 1 cap INHALATION DAILY #90 inh 09/26/18 11/14/18 with inhalation device fluoxetine 20 mg tablet 20 mg PO DAILY #90 tab-cap 10/02/18 11/14/18 quetiapine 25 mg tablet 25 mg PO BID #20 tab 10/17/18 11/14/18 meclizine 25 mg PO TID PRN #20 tab 10/23/18 11/14/18 docusate sodium 100 mg tablet 100 mg PO DAILY 10/30/18 11/14/18 diphenhydramine HCl [Benadryl] 25 mg PO Q6H PRN 11/01/18 11/14/18 lorazepam 1 mg tablet 1 mg PO Q6H PRN tab 11/09/18 11/14/18 ondansetron 4 mg PO TID-QID PRN #30 tab 11/12/18 11/14/18 morphine 15 mg immediate release 7.5 mg PO QDAY PRN #4 tab MDD 15 11/13/18 11/14/18 tablet Previous Rx's Medication Instructions Recorded OptiChamber Advantage kit 10/15/17 albuterol sulfate 2.5 mg INHALATION Q4H PRN PRN 30 10/15/17 Days ml albuterol sulfate HFA 90 2 puff INHALATION Q4H PRN PRN #1 07/02/18 mcg/actuation aerosol inhaler inh Symbicort 10.2 gm INHALATION BID #3 inhaler 09/21/18 pantoprazole 40 mg PO DAILY #90 tab 09/21/18 quetiapine 50 mg tablet 50 mg PO QHS #90 tab 09/26/18 tiotropium bromide 18 mcg capsule 1 cap INHALATION DAILY #90 inh 09/26/18 with inhalation device fluoxetine 20 mg tablet 20 mg PO DAILY #90 tab-cap 10/02/18 quetiapine 25 mg tablet 25 mg PO BID #20 tab 10/17/18 meclizine 25 mg PO TID PRN #20 tab 10/23/18 ondansetron 4 mg PO TID-QID PRN #30 tab 11/12/18 morphine 15 mg immediate release 7.5 mg PO QDAY PRN #4 tab MDD 15 11/13/18 tablet Allergies Allergy/AdvReac Type Severity Reaction Status Date / Time No Known Allergies Allergy Verified 11/13/18 12:34 General FLASH: 4 Review of Systems Review of Systems All systems reviewed & are unremarkable except as noted in HPI and below PFSH Social History Smoking/Tobacco Use Status: Former Tobacco Use Quit Date: 06/05/98 Tobacco: How many years used: 30 Alcohol Intake: former Drug use: Never 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 Adopted: No Foster care: No Household members: family Housing: house Number of Children: 0 Communication Needs: None current occupation: not working Current gender identity: male What type of physical activity do you participate in: none and other Details: started lifting weights Frequency: daily Seatbelt use: always Drive intox 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 Exam Narrative Exam Narrative: 1.Const: Well-nourished, Well-developed, appearing stated age 2.Eyes: PERRL, no conjunctival injection, and symmetrical lids. 3.ENT: Atraumatic external nose and ears. Moist MM. Neck: Symmetric, trachea midline, No thyromegaly. No blood in the posterior oropharynx. 4.CVS: +S1/S2, No murmurs or gallops. Peripheral pulses 2+ and equal in all extremities. Brisk capillary refill in all extremities. 5.RESP: Unlabored respiratory effort. Clear to auscultation bilaterally. No wheezes rales or rhonchi 6.GI: Soft, Nontender/Nondistended, No hepatosplenomegaly. No guarding or rebound. 7.MSK: Normocephalic/Atraumatic, Extremities w/o deformity or ttp No cyanosis or clubbing, Normal movement of all extremities 8.Skin: Warm, Dry. No rashes or lesions. 9.Neuro: turn operator II-XII grossly intact. Sensation grossly intact, no focal neurologic deficits. 10.Psych: (AAO) x3. Appropriate mood and affect
[2018-11-15 18:01] VITALS: RESP 16
== END 2018-11-15 18:16 | disposition home or self-care (01) ==
LOC: ER 18:08
PROVIDERS: Emergency Provider Student in an Organized Health Care Education/Training Program; PCP Internal Medicine
DX: R05 Cough (principal); F41.8 Other specified anxiety disorders
CPT/HCPCS: 99282

== ENCOUNTER 2018-11-16 19:35 | Emergency (ER) | payer MEDICAID, SELFPAY ==
[2018-11-16 19:40] VITALS: BP 132/90; PULSE 91; RESP 18; TEMP 36.5; O2SAT 97
--- NOTE | 2018-11-16 19:47 | W.ED.GENAD ---
Discharge Plan Disposition Patient Disposition: HOME Condition: Improving Discharge Details Chief Complaint: GenMedical Clinical Impression: Gastritis Primary Care Provider: Deborah Chow ED Provider: Ean Lyons Home Meds and New Rx's Prescriptions: Continued quetiapine [Seroquel] 50 mg tablet 50 mg PO QHS Qty: 90 RF: 0 Spiriva with HandiHaler 18 mcg capsule, w/inhalation device 1 cap Inhalation DAILY Qty: 90 RF: 0 docusate sodium [Stool Softener] 100 mg tablet 100 mg PO DAILY RF: 0 morphine 15 mg tablet 7.5 mg PO QDAY MDD 15 PRN (Reason: dyspnea) Qty: 4 RF: 0 albuterol sulfate [ProAir HFA] 90 mcg/actuation HFA aerosol inhaler 2 puff Inhalation Q4H PRN PRN (Reason: Shortness Of Breath) Qty: 1 RF: 1 fluoxetine 20 mg tablet 20 mg PO DAILY Qty: 90 RF: 3 quetiapine [Seroquel] 25 mg tablet 25 mg PO BID Qty: 20 RF: 0 lorazepam 1 mg tablet 1 mg PO Q6H PRN (Reason: anxiety) RF: 0 OptiChamber Advantage 1 EACH spacer 1 ea Miscellaneous DIRECTED RF: 0 albuterol sulfate 2.5 MG/3 ML solution for nebulization 2.5 mg Inhalation Q4H PRN PRN (Reason: Shortness Of Breath) 30 Days RF: 0 guaifenesin [Mucus Relief] 400 mg Tablet 400 mg PO Q4H PRNRF: 0 pantoprazole 40 mg tablet,delayed release (DR/EC) 40 mg PO DAILY Qty: 90 RF: 3 Symbicort 10.2 GM HFA aerosol inhaler 10.2 gm Inhalation BID Qty: 3 RF: 3 diphenhydramine HCl [Benadryl] 25 MG capsule 25 mg PO Q6H PRNRF: 0 meclizine 25 mg tablet 25 mg PO TID PRN (Reason: dizziness) Qty: 20 RF: 0 ondansetron 4 mg tablet,disintegrating 4 mg PO TID-QID PRN (Reason: nausea and vomiting) Qty: 30 RF: 0 Medical Decision Making 63-year-old male who presents emerged department complaining of epigastric burning discomfort that began after having chewing tobacco followed by spaghetti with red sauce this evening. I will note that I reviewed his recent records including visit today at pulmonary rehab with up to nearly 7 METS exercise, with normal blood pressure and pulse. He was seen in Dr. Chow's clinic on November 14 with an extensive review of his recent visits to the emergency department and accompanying anxieties. He continues to take quetiapine at night with morphine and for a lorazepam if needed. He has unremarkable vital signs, minimal tenderness in the epigastrium, consistent with acute gastritis. Administered a GI cocktail and the patient will be discharged home. HPI General Mode of arrival: ambulatory. Date/Time Provider Initiated Documentation: 11/16/18 19:38. Limitations to Documentation: no limitations. Information obtained by: patient. History of Present Illness 63 year old M presents to the emergency department with the chief complaint of We are epigastric pain after eating spaghetti with sauce and chewing tobacc, described as moderate and similar to prior episodes, Quality is described as dull, and is localized to the abdomen. Patient reports no radiation. Patient started experiencing this minute(s) and it has been constant. No relieving factors improve symptom(s), No exacerbating factors reported . Patient notes no other symptoms.. Patient did receive the following treatments prior to arrival, none Related Data Home Medications Medication Instructions Recorded Confirmed [employer] Advantage kit 10/15/17 11/14/18 albuterol sulfate 2.5 mg INHALATION Q4H PRN PRN 30 10/15/17 11/14/18 Days ml albuterol sulfate HFA 90 2 puff INHALATION Q4H PRN PRN #1 07/02/18 11/14/18 mcg/actuation aerosol inhaler inh guaifenesin [Mucus Relief] 400 mg PO Q4H PRN 09/09/18 11/14/18 Symbicort 10.2 gm INHALATION BID #3 inhaler 09/21/18 11/14/18 pantoprazole 40 mg PO DAILY #90 tab 09/21/18 11/14/18 quetiapine 50 mg tablet 50 mg PO QHS #90 tab 09/26/18 11/14/18 tiotropium bromide 18 mcg capsule 1 cap INHALATION DAILY #90 inh 09/26/18 11/14/18 with inhalation device fluoxetine 20 mg tablet 20 mg PO DAILY #90 tab-cap 10/02/18 11/14/18 quetiapine 25 mg tablet 25 mg PO BID #20 tab 05/15/19 06/12/19 meclizine 25 mg PO TID PRN #20 tab 10/23/18 11/14/18 docusate sodium 100 mg tablet 100 mg PO DAILY 10/30/18 11/14/18 diphenhydramine HCl [Benadryl] 25 mg PO Q6H PRN 11/01/18 11/14/18 lorazepam 1 mg tablet 1 mg PO Q6H PRN tab 11/09/18 11/14/18 ondansetron 4 mg PO TID-QID PRN #30 tab 11/12/18 11/14/18 morphine 15 mg immediate release 7.5 mg PO QDAY PRN #4 tab MDD 15 11/13/18 11/14/18 tablet Previous Rx's Medication Instructions Recorded [facility] Advantage kit 10/15/17 albuterol sulfate 2.5 mg INHALATION Q4H PRN PRN 30 10/15/17 Days ml albuterol sulfate HFA 90 2 puff INHALATION Q4H PRN PRN #1 07/02/18 mcg/actuation aerosol inhaler inh Symbicort 10.2 gm INHALATION BID #3 inhaler 09/21/18 pantoprazole 40 mg PO DAILY #90 tab 09/21/18 quetiapine 50 mg tablet 50 mg PO QHS #90 tab 09/26/18 tiotropium bromide 18 mcg capsule 1 cap INHALATION DAILY #90 inh 09/26/18 with inhalation device fluoxetine 20 mg tablet 20 mg PO DAILY #90 tab-cap 10/02/18 quetiapine 25 mg tablet 25 mg PO BID #20 tab 10/17/18 meclizine 25 mg PO TID PRN #20 tab 10/23/18 ondansetron 4 mg PO TID-QID PRN #30 tab 11/12/18 morphine 15 mg immediate release 7.5 mg PO QDAY PRN #4 tab MDD 15 11/13/18 tablet Allergies Allergy/AdvReac Type Severity Reaction Status Date / Time No Known Allergies Allergy Verified 11/13/18 12:34 General Stated Complaint: GenMedical FLASH: 3 Review of Systems Review of Systems 6 systems reviewed and otherwise negative [facility] Medical History COPD (chronic obstructive pulmonary disease) (Chronic) Adjustment disorder with anxiety (Chronic) Alcohol abuse (Chronic) Anxiety (Chronic) Dyspepsia (Chronic) Malignant neoplasm of right lung (Chronic) Tubular adenoma of colon (Inactive) Surgical History History of lung biopsy (Resolved) History of surgery on upper extremity (Resolved) colonoscopy (Inactive 01/19/15) Family History Father Essential hypertension Hyperlipidemia Paternal Uncle Heart disease Stroke Cerebral hemorrhage Hypertension Brother Cancer Social History Smoking/Tobacco Use Status: Former Tobacco Use Quit Date: 06/05/98 Tobacco: How many years used: 30 Alcohol Intake: former Drug use: Never 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 Adopted: No Foster care: No Household members: family Housing: house Number of Children: 0 Communication Needs: None current occupation: not working Current gender identity: male What type of physical activity do you participate in: none and other Details: started lifting weights Frequency: daily Seatbelt use: always Drive intox or ride w/intox 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 Exam Narrative Exam Narrative: GEN: awake, alert, oriented 3. Pleasant, well groomed, interactive. HEAD: Normocephalic, atraumatic ENT: Mucous membranes moist, oropharynx unremarkable, External ear exam unremarkable. Perioral tobacco stained EYES: PERRL, EOMI NECK: Full ROM, no URSZULA, no menigismus CHEST/RESP: Nontender, clear to auscultation bilateral, no wheeze/rhonchi/rales CARDIOVASCULAR: RRR, no murmur, rub jeannie. 2+ Rad pulse bilateral ABDOMEN: Soft, minimal epigastric tenderness without rebound or guard, no mass. +Bowel sounds EXT: Full ROM, no edema, no rash Neuro: Grossly normal neurologic exam, conversant, interactive. Psych: Speech fluent, thoughts congruent, affect anxious Course Vital Signs Temperature 36.5 C 11/16/18 19:40 Pulse 91 H 11/16/18 19:40 Respiratory Rate 18 11/16/18 19:40 Blood Pressure 132/90 11/16/18 19:40 Pulse Oximetry 97 11/16/18 19:40 Temperature 36.5 C 11/16/18 19:40 Temperature Source Temporal Artery Scan 11/16/18 19:40 Pulse 91 H 11/16/18 19:40 Respiratory Rate 18 11/16/18 19:40 Respiratory Effort Non-Labored 11/16/18 19:42 Respiratory Depth Normal 11/16/18 19:42 Respiratory Pattern Normal 11/16/18 19:42 Blood Pressure 132/90 11/16/18 19:40 Blood Pressure Position Sitting 11/16/18 19:40 Pulse Oximetry 97 11/16/18 19:40 Oxygen Delivery Method Room Air 11/16/18 19:40 Oxygen Flow Rate 0 11/16/18 19:40
--- NOTE | 2018-11-16 19:51 | ED.GENADUL_ITS ---
Discharge Plan Disposition Patient Disposition: HOME Condition: Improving Discharge Details Chief Complaint: GenMedical Clinical Impression: Gastritis Primary Care Provider: Deborah Chow ED Provider: Ean Lyons Home Meds and New Rx's Prescriptions: Continued quetiapine [Seroquel] 50 mg tablet 50 mg PO QHS Qty: 90 RF: 0 Spiriva with HandiHaler 18 mcg capsule, w/inhalation device 1 cap Inhalation DAILY Qty: 90 RF: 0 docusate sodium [Stool Softener] 100 mg tablet 100 mg PO DAILY RF: 0 morphine 15 mg tablet 7.5 mg PO QDAY MDD 15 PRN (Reason: dyspnea) Qty: 4 RF: 0 albuterol sulfate [ProAir HFA] 90 mcg/actuation HFA aerosol inhaler 2 puff Inhalation Q4H PRN PRN (Reason: Shortness Of Breath) Qty: 1 RF: 1 fluoxetine 20 mg tablet 20 mg PO DAILY Qty: 90 RF: 3 quetiapine [Seroquel] 25 mg tablet 25 mg PO BID Qty: 20 RF: 0 lorazepam 1 mg tablet 1 mg PO Q6H PRN (Reason: anxiety) RF: 0 OptiChamber Advantage 1 EACH spacer 1 ea Miscellaneous DIRECTED RF: 0 albuterol sulfate 2.5 MG/3 ML solution for nebulization 2.5 mg Inhalation Q4H PRN PRN (Reason: Shortness Of Breath) 30 Days RF: 0 guaifenesin [Mucus Relief] 400 mg Tablet 400 mg PO Q4H PRNRF: 0 pantoprazole 40 mg tablet,delayed release (DR/EC) 40 mg PO DAILY Qty: 90 RF: 3 Symbicort 10.2 GM HFA aerosol inhaler 10.2 gm Inhalation BID Qty: 3 RF: 3 diphenhydramine HCl [Benadryl] 25 MG capsule 25 mg PO Q6H PRNRF: 0 meclizine 25 mg tablet 25 mg PO TID PRN (Reason: dizziness) Qty: 20 RF: 0 ondansetron 4 mg tablet,disintegrating 4 mg PO TID-QID PRN (Reason: nausea and vomiting) Qty: 30 RF: 0 Medical Decision Making 63-year-old male who presents emerged department complaining of epigastric burning discomfort that began after having chewing tobacco followed by spaghetti with red sauce this evening. I will note that I reviewed his recent records including visit today at pulmonary rehab with up to nearly 7 METS exercise, with normal blood pressure and pulse. He was seen in Dr. Chow's clinic on November 14 with an extensive review of his recent visits to the emergency department and accompanying anxieties. He continues to take quetiapine at night with morphine and for a lorazepam if needed. He has unremarkable vital signs, minimal tenderness in the epigastrium, consistent with acute gastritis. Administered a GI cocktail and the patient will be discharged home. HPI General Mode of arrival: ambulatory . Date/Time Provider Initiated Documentation: 11/16/18 19:38 . Limitations to Documentation: no limitations . Information obtained by: patient . History of Present Illness 63 year old M presents to the emergency department with the chief complaint of We are epigastric pain after eating spaghetti with sauce and chewing tobacc, described as moderate and similar to prior episodes, Quality is described as dull, and is localized to the abdomen. Patient reports no radiation. Patient started experiencing this minute(s) and it has been constant. No relieving factors improve symptom(s), No exacerbating factors reported . Patient notes no other symptoms.. Patient did receive the following treatments prior to arrival, none Related Data Home Medications Medication Instructions Recorded Confirmed [facility] Advantage kit 10/15/17 11/14/18 albuterol sulfate 2.5 mg INHALATION Q4H PRN PRN 30 10/15/17 11/14/18 Days ml albuterol sulfate HFA 90 2 puff INHALATION Q4H PRN PRN #1 07/02/18 11/14/18 mcg/actuation aerosol inhaler inh guaifenesin [Mucus Relief] 400 mg PO Q4H PRN 09/09/18 11/14/18 Symbicort 10.2 gm INHALATION BID #3 inhaler 09/21/18 11/14/18 pantoprazole 40 mg PO DAILY #90 tab 09/21/18 11/14/18 quetiapine 50 mg tablet 50 mg PO QHS #90 tab 09/26/18 11/14/18 tiotropium bromide 18 mcg capsule 1 cap INHALATION DAILY #90 inh 09/26/18 11/14/18 with inhalation device fluoxetine 20 mg tablet 20 mg PO DAILY #90 tab-cap 10/02/18 11/14/18 quetiapine 25 mg tablet 25 mg PO BID #20 tab 05/15/19 06/12/19 meclizine 25 mg PO TID PRN #20 tab 10/23/18 11/14/18 docusate sodium 100 mg tablet 100 mg PO DAILY 10/30/18 11/14/18 diphenhydramine HCl [Benadryl] 25 mg PO Q6H PRN 11/01/18 11/14/18 lorazepam 1 mg tablet 1 mg PO Q6H PRN tab 11/09/18 11/14/18 ondansetron 4 mg PO TID-QID PRN #30 tab 11/12/18 11/14/18 morphine 15 mg immediate release 7.5 mg PO QDAY PRN #4 tab MDD 15 11/13/18 11/14/18 tablet Previous Rx's Medication Instructions Recorded [facility] Advantage kit 10/15/17 albuterol sulfate 2.5 mg INHALATION Q4H PRN PRN 30 10/15/17 Days ml albuterol sulfate HFA 90 2 puff INHALATION Q4H PRN PRN #1 07/02/18 mcg/actuation aerosol inhaler inh Symbicort 10.2 gm INHALATION BID #3 inhaler 09/21/18 pantoprazole 40 mg PO DAILY #90 tab 09/21/18 quetiapine 50 mg tablet 50 mg PO QHS #90 tab 09/26/18 tiotropium bromide 18 mcg capsule 1 cap INHALATION DAILY #90 inh 09/26/18 with inhalation device fluoxetine 20 mg tablet 20 mg PO DAILY #90 tab-cap 10/02/18 quetiapine 25 mg tablet 25 mg PO BID #20 tab 10/17/18 meclizine 25 mg PO TID PRN #20 tab 10/23/18 ondansetron 4 mg PO TID-QID PRN #30 tab 11/12/18 morphine 15 mg immediate release 7.5 mg PO QDAY PRN #4 tab MDD 15 11/13/18 tablet Allergies Allergy/AdvReac Type Severity Reaction Status Date / Time No Known Allergies Allergy Verified 11/13/18 12:34 General Stated Complaint: GenMedical FLASH: 3 Review of Systems Review of Systems 6 systems reviewed and otherwise negative [facility] Medical History COPD (chronic obstructive pulmonary disease) (Chronic) Adjustment disorder with anxiety (Chronic) Alcohol abuse (Chronic) Anxiety (Chronic) Dyspepsia (Chronic) Malignant neoplasm of right lung (Chronic) Tubular adenoma of colon (Inactive) Surgical History History of lung biopsy (Resolved) History of surgery on upper extremity (Resolved) colonoscopy (Inactive 01/19/15) Family History Father Essential hypertension Hyperlipidemia Paternal Uncle Heart disease Stroke Cerebral hemorrhage Hypertension Brother Cancer Social History Smoking/Tobacco Use Status: Former Tobacco Use Quit Date: 06/05/98 Tobacco: How many years used: 30 Alcohol Intake: former Drug use: Never 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 Adopted: No Foster care: No Household members: family Housing: house Number of Children: 0 Communication Needs: None current occupation: not working Current gender identity: male What type of physical activity do you participate in: none and other Details: started lifting weights Frequency: daily Seatbelt use: always 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 Exam Narrative Exam Narrative: GEN: awake, alert, oriented 3. Pleasant, well groomed, interactive. HEAD: Normocephalic, atraumatic ENT: Mucous membranes moist, oropharynx unremarkable, External ear exam unremarkable. Perioral tobacco stained EYES: PERRL, EOMI NECK: Full ROM, no URSZULA, no menigismus CHEST/RESP: Nontender, clear to auscultation bilateral, no wheeze/rhonchi/rales CARDIOVASCULAR: RRR, no murmur, rub jeannie. 2+ Rad pulse bilateral ABDOMEN: Soft, minimal epigastric tenderness without rebound or guard, no mass. +Bowel sounds EXT: Full ROM, no edema, no rash Neuro: Grossly normal neurologic exam, conversant, interactive. Psych: Speech fluent, thoughts congruent, affect anxious Course Vital Signs Temperature 36.5 C 11/16/18 19:40 Pulse 91 H 11/16/18 19:40 Respiratory Rate 18 11/16/18 19:40 Blood Pressure 132/90 11/16/18 19:40 Pulse Oximetry 97 11/16/18 19:40 Temperature 36.5 C 11/16/18 19:40 Temperature Source Temporal Artery Scan 11/16/18 19:40 Pulse 91 H 11/16/18 19:40 Respiratory Rate 18 11/16/18 19:40 Respiratory Effort Non-Labored 11/16/18 19:42 Respiratory Depth Normal 11/16/18 19:42 Respiratory Pattern Normal 11/16/18 19:42 Blood Pressure 132/90 11/16/18 19:40 Blood Pressure Position Sitting 11/16/18 19:40 Pulse Oximetry 97 11/16/18 19:40 Oxygen Delivery Method Room Air 11/16/18 19:40 Oxygen Flow Rate 0 11/16/18 19:40
== END 2018-11-16 20:06 | disposition home or self-care (01) ==
LOC: ER 19:51
PROVIDERS: Emergency Provider Emergency Medicine; PCP Internal Medicine
DX: K29.00 Acute gastritis without bleeding (principal); J44.9 Chronic obstructive pulmonary disease, unspecified; F41.9 Anxiety disorder, unspecified
CPT/HCPCS: 99283

== ENCOUNTER 2018-11-17 13:27 | Emergency (ER) | payer MEDICAID, SELFPAY ==
[2018-11-17] VITALS (7 sets, daily range): BP systolic 134–150; BP diastolic 86–89; PULSE 68–71; RESP 16–18; TEMP 36.8–37.1; O2SAT 91–100
--- NOTE | 2018-11-17 14:11 | W.ED.GENAD ---
Discharge Plan Disposition Patient Disposition: HOME Discharge Details Chief Complaint: Abd Prob Clinical Impression: Abdominal pain, Gastritis Primary Care Provider: Deborah Chow ED Provider: Elliot Lizarraga Home Meds and New Rx's Prescriptions: Continued quetiapine [Seroquel] 50 mg tablet 50 mg PO QHS Qty: 90 RF: 0 Spiriva with HandiHaler 18 mcg capsule, w/inhalation device 1 cap Inhalation DAILY Qty: 90 RF: 0 docusate sodium [Stool Softener] 100 mg tablet 100 mg PO DAILY RF: 0 morphine 15 mg tablet 7.5 mg PO QDAY MDD 15 PRN (Reason: dyspnea) Qty: 4 RF: 0 albuterol sulfate [ProAir HFA] 90 mcg/actuation HFA aerosol inhaler 2 puff Inhalation Q4H PRN PRN (Reason: Shortness Of Breath) Qty: 1 RF: 1 fluoxetine 20 mg tablet 20 mg PO DAILY Qty: 90 RF: 3 quetiapine [Seroquel] 25 mg tablet 25 mg PO BID Qty: 20 RF: 0 lorazepam 1 mg tablet 1 mg PO Q6H PRN (Reason: anxiety) RF: 0 OptiChamber Advantage 1 EACH spacer 1 ea Miscellaneous DIRECTED RF: 0 albuterol sulfate 2.5 MG/3 ML solution for nebulization 2.5 mg Inhalation Q4H PRN PRN (Reason: Shortness Of Breath) 30 Days RF: 0 guaifenesin [Mucus Relief] 400 mg Tablet 400 mg PO Q4H PRNRF: 0 pantoprazole 40 mg tablet,delayed release (DR/EC) 40 mg PO DAILY Qty: 90 RF: 3 Symbicort 10.2 GM HFA aerosol inhaler 10.2 gm Inhalation BID Qty: 3 RF: 3 diphenhydramine HCl [Benadryl] 25 MG capsule 25 mg PO Q6H PRNRF: 0 meclizine 25 mg tablet 25 mg PO TID PRN (Reason: dizziness) Qty: 20 RF: 0 ondansetron 4 mg tablet,disintegrating 4 mg PO TID-QID PRN (Reason: nausea and vomiting) Qty: 30 RF: 0 No Action prednisone 20 mg tablet 20 mg PO BID RF: 0 hydroxyzine HCl 25 mg tablet 25 mg PO TID PRNRF: 0 Discharge Instructions Instructions: Abdominal Pain (ED) Additional Instructions: Please contact your primary care physician to arrange follow-up. Call on Monday. Return to the ER for any worsening or new concerning symptoms. Referrals: Deborah Chow MD [Primary Care Provider] - Discharge Data Discharge Date/Time-TO BE ENTERED AT DEPARTURE: 11/17/18 16:14 Medical Decision Making 63-year-old male with multiple medical problems, well-known to the emergency department recently, here with abdominal discomfort. Vitals are within normal limits. Abdominal exam is benign. No peritoneal findings. Patient has mild tenderness in his epigastrium. He does have a history of gastric esophageal reflux disease. I suspect he is having some gastritis. Patient was treated with mylanta and on reassessment he was much improved. Labs reviewed. Lipase normal. He does have a mild elevation of bilirubin. LFTs otherwise normal. Patient was instructed to follow-up with his primary care physician and to return to do any worsening or new concerning symptoms. HPI General Mode of arrival: ambulatory. Date/Time Provider Initiated Documentation: 11/17/18 13:28. Limitations to Documentation: no limitations. Information obtained by: patient. HPI Narrative: 63-year-old male with multiple medical problems including anxiety disorder, well-known to [facility] emergency department with multiple frequent visits over the past month, here with chief complaint of abdominal discomfort. Patient notes some mild to moderate upper abdominal discomfort that has been present today. Pain is described as reflux. No modifiers. He did have a normal bowel movement earlier. No associated nausea vomiting. No chest pain or shortness of breath that is different from baseline. Related Data Home Medications Medication Instructions Recorded [facility] 11/21/18 albuterol sulfate 2.5 mg INHALATION Q4H PRN PRN 30 10/15/17 11/21/18 Days ml albuterol sulfate HFA 90 2 puff INHALATION Q4H PRN PRN #1 07/02/18 11/21/18 mcg/actuation aerosol inhaler inh guaifenesin [Mucus Relief] 400 mg PO Q4H PRN 09/09/18 11/21/18 Symbicort 10.2 gm INHALATION BID #3 inhaler 09/21/18 11/21/18 pantoprazole 40 mg PO DAILY #90 tab 09/21/18 11/21/18 quetiapine 50 mg tablet 50 mg PO QHS #90 tab 09/26/18 11/21/18 tiotropium bromide 18 mcg capsule 1 cap INHALATION DAILY #90 inh 09/26/18 11/21/18 with inhalation device fluoxetine 20 mg tablet 20 mg PO DAILY #90 tab-cap 10/02/18 11/21/18 quetiapine 25 mg tablet 25 mg PO BID #20 tab 10/17/18 11/21/18 meclizine 25 mg PO TID PRN #20 tab 10/23/18 11/21/18 docusate sodium 100 mg tablet 100 mg PO DAILY 10/30/18 11/21/18 diphenhydramine HCl [Benadryl] 25 mg PO Q6H PRN 11/01/18 11/21/18 lorazepam 1 mg tablet 1 mg PO Q6H PRN tab 11/09/18 11/21/18 ondansetron 4 mg PO TID-QID PRN #30 tab 11/12/18 11/21/18 morphine 15 mg immediate release 7.5 mg PO QDAY PRN #4 tab MDD 15 11/13/18 11/21/18 tablet hydroxyzine HCl 25 mg tablet 25 mg PO TID PRN tab 11/20/18 11/21/18 prednisone 20 mg tablet 20 mg PO BID 11/20/18 11/21/18 Previous Rx's Medication Instructions Recorded [facility] Advantage kit 10/15/17 albuterol sulfate 2.5 mg INHALATION Q4H PRN PRN 30 10/15/17 Days ml albuterol sulfate HFA 90 2 puff INHALATION Q4H PRN PRN #1 07/02/18 mcg/actuation aerosol inhaler inh Symbicort 10.2 gm INHALATION BID #3 inhaler 09/21/18 pantoprazole 40 mg PO DAILY #90 tab 09/21/18 quetiapine 50 mg tablet 50 mg PO QHS #90 tab 09/26/18 tiotropium bromide 18 mcg capsule 1 cap INHALATION DAILY #90 inh 09/26/18 with inhalation device fluoxetine 20 mg tablet 20 mg PO DAILY #90 tab-cap 10/02/18 quetiapine 25 mg tablet 25 mg PO BID #20 tab 10/17/18 meclizine 25 mg PO TID PRN #20 tab 10/23/18 ondansetron 4 mg PO TID-QID PRN #30 tab 11/12/18 morphine 15 mg immediate release 7.5 mg PO QDAY PRN #4 tab MDD 15 11/13/18 tablet Allergies Allergy/AdvReac Type Severity Reaction Status Date / Time No Known Allergies Allergy Verified 11/21/18 18:31 General Stated Complaint: Abd Prob FLASH: 3 Review of Systems Review of Systems All systems reviewed & are unremarkable except as noted in HPI and below Constitutional Denies fever(s) Gastrointestinal Reports abdominal pain, Denies melena and Denies hematochezia [facility] Medical History COPD (chronic obstructive pulmonary disease) (Chronic) Adjustment disorder with anxiety (Chronic) Alcohol abuse (Chronic) Anxiety (Chronic) Dyspepsia (Chronic) Malignant neoplasm of right lung (Chronic) Tubular adenoma of colon (Inactive) Surgical History History of lung biopsy (Resolved) History of surgery on upper extremity (Resolved) colonoscopy (Inactive 01/19/15) Family History Father Essential hypertension Hyperlipidemia Paternal Uncle Heart disease Stroke Cerebral hemorrhage Hypertension Brother Cancer Social History Smoking/Tobacco Use Status: Former Tobacco Use Quit Date: 06/05/98 Tobacco: How many years used: 30 Alcohol Intake: former Drug use: Never 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 Adopted: No Foster care: No Household members: family Housing: house Number of Children: 0 Communication Needs: None current occupation: not working Current gender identity: male What type of physical activity do you participate in: none and other Details: started lifting weights Frequency: daily Seatbelt use: always 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 Exam Const General: cooperative and no acute distress HENMT Mouth: moist mucous membranes Eyes Conjunctivae: normal conjunctivae Sclera: normal sclerae Neck Neck: trachea midline and supple Resp Auscultation: clear to auscultation bilaterally, no rales, no rhonchi and no wheezes Cardio Rate: regular rate and not tachycardic Rhythm: regular rhythm GI Palpation: soft, not firm, no guarding, no masses, not rigid and tender in the epigastrum Skin General skin exam: no rashes or lesions noted Neuro General: alert, awake and tone normal Extrem General: no edema Psych Appearance: grossly normal Course Vital Signs Temperature 37.1 C 11/17/18 13:51 Pulse 68 11/17/18 13:51 Respiratory Rate 16 11/17/18 13:51 Blood Pressure 134/89 11/17/18 13:51 Pulse Oximetry 95 11/17/18 13:51 Temperature 37.1 C 11/17/18 13:51 Pulse 68 11/17/18 13:51 Respiratory Rate 16 11/17/18 13:51 Respiratory Effort Non-Labored 11/17/18 14:03 Blood Pressure 134/89 11/17/18 13:51 Pulse Oximetry 95 11/17/18 13:51 Oxygen Delivery Method Room Air 11/17/18 13:51 Oxygen Flow Rate 0 11/17/18 13:51 Pain Level 8 11/17/18 14:04
--- NOTE | 2018-11-17 14:14 | ED.GENADUL_ITS ---
Discharge Plan Disposition Patient Disposition: HOME Discharge Details Chief Complaint: Abd Prob Clinical Impression: Abdominal pain, Gastritis Primary Care Provider: Deborah Chow ED Provider: Elliot Lizarraga Home Meds and New Rx's Prescriptions: Continued quetiapine [Seroquel] 50 mg tablet 50 mg PO QHS Qty: 90 RF: 0 Spiriva with HandiHaler 18 mcg capsule, w/inhalation device 1 cap Inhalation DAILY Qty: 90 RF: 0 docusate sodium [Stool Softener] 100 mg tablet 100 mg PO DAILY RF: 0 morphine 15 mg tablet 7.5 mg PO QDAY MDD 15 PRN (Reason: dyspnea) Qty: 4 RF: 0 albuterol sulfate [ProAir HFA] 90 mcg/actuation HFA aerosol inhaler 2 puff Inhalation Q4H PRN PRN (Reason: Shortness Of Breath) Qty: 1 RF: 1 fluoxetine 20 mg tablet 20 mg PO DAILY Qty: 90 RF: 3 quetiapine [Seroquel] 25 mg tablet 25 mg PO BID Qty: 20 RF: 0 lorazepam 1 mg tablet 1 mg PO Q6H PRN (Reason: anxiety) RF: 0 [employer] Advantage 1 EACH spacer 1 ea Miscellaneous DIRECTED RF: 0 albuterol sulfate 2.5 MG/3 ML solution for nebulization 2.5 mg Inhalation Q4H PRN PRN (Reason: Shortness Of Breath) 30 Days RF: 0 guaifenesin [Mucus Relief] 400 mg Tablet 400 mg PO Q4H PRNRF: 0 pantoprazole 40 mg tablet,delayed release (DR/EC) 40 mg PO DAILY Qty: 90 RF: 3 Symbicort 10.2 GM HFA aerosol inhaler 10.2 gm Inhalation BID Qty: 3 RF: 3 diphenhydramine HCl [Benadryl] 25 MG capsule 25 mg PO Q6H PRNRF: 0 meclizine 25 mg tablet 25 mg PO TID PRN (Reason: dizziness) Qty: 20 RF: 0 ondansetron 4 mg tablet,disintegrating 4 mg PO TID-QID PRN (Reason: nausea and vomiting) Qty: 30 RF: 0 No Action prednisone 20 mg tablet 20 mg PO BID RF: 0 hydroxyzine HCl 25 mg tablet 25 mg PO TID PRNRF: 0 Discharge Instructions Instructions: Abdominal Pain (ED) Additional Instructions: Please contact your primary care physician to arrange follow-up. Call on Monday. Return to the ER for any worsening or new concerning symptoms. Referrals: Deborah Chow MD [Primary Care Provider] - Discharge Data Discharge Date/Time-TO BE ENTERED AT DEPARTURE: 11/17/18 16:14 Medical Decision Making 63-year-old male with multiple medical problems, well-known to the emergency department recently, here with abdominal discomfort. Vitals are within normal limits. Abdominal exam is benign. No peritoneal findings. Patient has mild tenderness in his epigastrium. He does have a history of gastric esophageal reflux disease. I suspect he is having some gastritis. Patient was treated with mylanta and on reassessment he was much improved. Labs reviewed. Lipase normal. He does have a mild elevation of bilirubin. LFTs otherwise normal. Patient was instructed to follow-up with his primary care physician and to return to do any worsening or new concerning symptoms. HPI General Mode of arrival: ambulatory . Date/Time Provider Initiated Documentation: 11/17/18 13:28 . Limitations to Documentation: no limitations . Information obtained by: patient . HPI Narrative: 63-year-old male with multiple medical problems including anxiety disorder, well-known to [facility] emergency department with multiple frequent visits over the past month, here with chief complaint of abdominal discomfort. Patient notes some mild to moderate upper abdominal discomfort that has been present today. Pain is described as reflux. No modifiers. He did have a normal bowel movement earlier. No associated nausea vomiting. No chest pain or shortness of breath that is different from baseline. Related Data Home Medications Medication Instructions Recorded [facility]/17 11/21/18 albuterol sulfate 2.5 mg INHALATION Q4H PRN PRN 30 10/15/17 11/21/18 Days ml albuterol sulfate HFA 90 2 puff INHALATION Q4H PRN PRN #1 07/02/18 11/21/18 mcg/actuation aerosol inhaler inh guaifenesin [Mucus Relief] 400 mg PO Q4H PRN 09/09/18 11/21/18 Symbicort 10.2 gm INHALATION BID #3 inhaler 09/21/18 11/21/18 pantoprazole 40 mg PO DAILY #90 tab 09/21/18 11/21/18 quetiapine 50 mg tablet 50 mg PO QHS #90 tab 09/26/18 11/21/18 tiotropium bromide 18 mcg capsule 1 cap INHALATION DAILY #90 inh 09/26/18 11/21/18 with inhalation device fluoxetine 20 mg tablet 20 mg PO DAILY #90 tab-cap 10/02/18 11/21/18 quetiapine 25 mg tablet 25 mg PO BID #20 tab 10/17/18 11/21/18 meclizine 25 mg PO TID PRN #20 tab 10/23/18 11/21/18 docusate sodium 100 mg tablet 100 mg PO DAILY 10/30/18 11/21/18 diphenhydramine HCl [Benadryl] 25 mg PO Q6H PRN 11/01/18 11/21/18 lorazepam 1 mg tablet 1 mg PO Q6H PRN tab 11/09/18 11/21/18 ondansetron 4 mg PO TID-QID PRN #30 tab 11/12/18 11/21/18 morphine 15 mg immediate release 7.5 mg PO QDAY PRN #4 tab MDD 15 11/13/18 11/21/18 tablet hydroxyzine HCl 25 mg tablet 25 mg PO TID PRN tab 11/20/18 11/21/18 prednisone 20 mg tablet 20 mg PO BID 11/20/18 11/21/18 Previous Rx's Medication Instructions Recorded [facility] Advantage kit 10/15/17 albuterol sulfate 2.5 mg INHALATION Q4H PRN PRN 30 10/15/17 Days ml albuterol sulfate HFA 90 2 puff INHALATION Q4H PRN PRN #1 07/02/18 mcg/actuation aerosol inhaler inh Symbicort 10.2 gm INHALATION BID #3 inhaler 09/21/18 pantoprazole 40 mg PO DAILY #90 tab 09/21/18 quetiapine 50 mg tablet 50 mg PO QHS #90 tab 09/26/18 tiotropium bromide 18 mcg capsule 1 cap INHALATION DAILY #90 inh 09/26/18 with inhalation device fluoxetine 20 mg tablet 20 mg PO DAILY #90 tab-cap 10/02/18 quetiapine 25 mg tablet 25 mg PO BID #20 tab 10/17/18 meclizine 25 mg PO TID PRN #20 tab 10/23/18 ondansetron 4 mg PO TID-QID PRN #30 tab 11/12/18 morphine 15 mg immediate release 7.5 mg PO QDAY PRN #4 tab MDD 15 11/13/18 tablet Allergies Allergy/AdvReac Type Severity Reaction Status Date / Time No Known Allergies Allergy Verified 11/21/18 18:31 General Stated Complaint: Abd Prob FLASH: 3 Review of Systems Review of Systems All systems reviewed & are unremarkable except as noted in HPI and below Constitutional Denies fever(s) Gastrointestinal Reports abdominal pain, Denies melena and Denies hematochezia [facility] Medical History COPD (chronic obstructive pulmonary disease) (Chronic) Adjustment disorder with anxiety (Chronic) Alcohol abuse (Chronic) Anxiety (Chronic) Dyspepsia (Chronic) Malignant neoplasm of right lung (Chronic) Tubular adenoma of colon (Inactive) Surgical History History of lung biopsy (Resolved) History of surgery on upper extremity (Resolved) colonoscopy (Inactive 01/19/15) Family History Father Essential hypertension Hyperlipidemia Paternal Uncle Heart disease Stroke Cerebral hemorrhage Hypertension Brother Cancer Social History Smoking/Tobacco Use Status: Former Tobacco Use Quit Date: 06/05/98 Tobacco: How many years used: 30 Alcohol Intake: former Drug use: Never 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 Adopted: No Foster care: No Household members: family Housing: house Number of Children: 0 Communication Needs: None current occupation: not working Current gender identity: male What type of physical activity do you participate in: none and other Details: started lifting weights Frequency: daily Seatbelt use: always 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 Exam Const General: cooperative and no acute distress HENMT Mouth: moist mucous membranes Eyes Conjunctivae: normal conjunctivae Sclera: normal sclerae Neck Neck: trachea midline and supple Resp Auscultation: clear to auscultation bilaterally, no rales, no rhonchi and no wheezes Cardio Rate: regular rate and not tachycardic Rhythm: regular rhythm GI Palpation: soft, not firm, no guarding, no masses, not rigid and tender in the epigastrum Skin General skin exam: no rashes or lesions noted Neuro General: alert, awake and tone normal Extrem General: no edema Psych Appearance: grossly normal Course Vital Signs Temperature 37.1 C 11/17/18 13:51 Pulse 68 11/17/18 13:51 Respiratory Rate 16 11/17/18 13:51 Blood Pressure 134/89 11/17/18 13:51 Pulse Oximetry 95 11/17/18 13:51 Temperature 37.1 C 11/17/18 13:51 Pulse 68 11/17/18 13:51 Respiratory Rate 16 11/17/18 13:51 Respiratory Effort Non-Labored 11/17/18 14:03 Blood Pressure 134/89 11/17/18 13:51 Pulse Oximetry 95 11/17/18 13:51 Oxygen Delivery Method Room Air 11/17/18 13:51 Oxygen Flow Rate 0 11/17/18 13:51 Pain Level 8 11/17/18 14:04
[2018-11-17 14:43] LABS: ALT 23 U/L (12-78); AST 13 U/L (15-37); Albumin 3.3 g/dL (3.4-5.0); Alkaline Phosphatase 67 U/L (46-116); Anion Gap 7.9 mmol/L (3-11); BUN 23 mg/dL (7-18); Bilirubin, Total 1.1 mg/dL (0.2-1.0); CO2 29.1 mmol/L (21.0-32.0); CREATININE 1.12 mg/dL (0.70-1.30); Calcium 8.2 mg/dL (8.5-10.1); Chloride 104 mmol/L (98-107); Glucose 90 mg/dL (70-100); Lipase 236 U/L (73-393); Potassium 3.7 mmol/L (3.5-5.1); Sodium 141 mmol/L (136-145); Total Protein 6.8 g/dL (6.4-8.2)
[2018-11-17] MEDS: Mylanta Suspension 30 ML CUP PO (14:51)
== END 2018-11-17 16:14 | disposition home or self-care (01) ==
PROVIDERS: Emergency Provider Student in an Organized Health Care Education/Training Program; PCP Internal Medicine
DX: K29.00 Acute gastritis without bleeding (principal); E87.0 Hyperosmolality and hypernatremia; F41.9 Anxiety disorder, unspecified; J44.9 Chronic obstructive pulmonary disease, unspecified; Z87.891 Personal history of nicotine dependence
CPT/HCPCS: 36415; 80053; 83690; 99283

== ENCOUNTER 2018-11-19 17:55 | Emergency (ER) | payer MEDICAID, SELFPAY ==
[2018-11-19 18:01] VITALS: BP 143/91; PULSE 89; RESP 14; TEMP 36.8; O2SAT 95
--- NOTE | 2018-11-19 18:17 | W.ED.GENAD ---
Discharge Plan Disposition Patient Disposition: HOME Condition: Stable Discharge Details Chief Complaint: Abd Prob Clinical Impression: Dyspepsia Primary Care Provider: Deborah Chow ED Provider: Mj Chen Home Meds and New Rx's Prescriptions: No Action quetiapine [Seroquel] 50 mg tablet 50 mg PO QHS Qty: 90 RF: 0 Spiriva with HandiHaler 18 mcg capsule, w/inhalation device 1 cap Inhalation DAILY Qty: 90 RF: 0 docusate sodium [Stool Softener] 100 mg tablet 100 mg PO DAILY RF: 0 morphine 15 mg tablet 7.5 mg PO QDAY MDD 15 PRN (Reason: dyspnea) Qty: 4 RF: 0 albuterol sulfate [ProAir HFA] 90 mcg/actuation HFA aerosol inhaler 2 puff Inhalation Q4H PRN PRN (Reason: Shortness Of Breath) Qty: 1 RF: 1 fluoxetine 20 mg tablet 20 mg PO DAILY Qty: 90 RF: 3 quetiapine [Seroquel] 25 mg tablet 25 mg PO BID Qty: 20 RF: 0 lorazepam 1 mg tablet 1 mg PO Q6H PRN (Reason: anxiety) RF: 0 [employer]amber Advantage 1 EACH spacer 1 ea Miscellaneous DIRECTED RF: 0 albuterol sulfate 2.5 MG/3 ML solution for nebulization 2.5 mg Inhalation Q4H PRN PRN (Reason: Shortness Of Breath) 30 Days RF: 0 guaifenesin [Mucus Relief] 400 mg Tablet 400 mg PO Q4H PRNRF: 0 pantoprazole 40 mg tablet,delayed release (DR/EC) 40 mg PO DAILY Qty: 90 RF: 3 Symbicort 10.2 GM HFA aerosol inhaler 10.2 gm Inhalation BID Qty: 3 RF: 3 diphenhydramine HCl [Benadryl] 25 MG capsule 25 mg PO Q6H PRNRF: 0 meclizine 25 mg tablet 25 mg PO TID PRN (Reason: dizziness) Qty: 20 RF: 0 ondansetron 4 mg tablet,disintegrating 4 mg PO TID-QID PRN (Reason: nausea and vomiting) Qty: 30 RF: 0 Discharge Instructions Additional Instructions: follow up with your primary care provider within one to two weeks try taking tums or mylanta for your symptoms HPI General Date/Time Provider Initiated Documentation: 11/19/18 18:05. Related Data Home Medications Medication Instructions Recorded [facility] 10/15/17 11/14/18 albuterol sulfate 2.5 mg INHALATION Q4H PRN PRN 30 10/15/17 11/17/18 Days ml albuterol sulfate HFA 90 2 puff INHALATION Q4H PRN PRN #1 07/02/18 11/17/18 mcg/actuation aerosol inhaler inh guaifenesin [Mucus Relief] 400 mg PO Q4H PRN 09/09/18 11/17/18 Symbicort 10.2 gm INHALATION BID #3 inhaler 09/21/18 11/17/18 pantoprazole 40 mg PO DAILY #90 tab 09/21/18 11/17/18 quetiapine 50 mg tablet 50 mg PO QHS #90 tab 09/26/18 11/17/18 tiotropium bromide 18 mcg capsule 1 cap INHALATION DAILY #90 inh 09/26/18 11/17/18 with inhalation device fluoxetine 20 mg tablet 20 mg PO DAILY #90 tab-cap 10/02/18 11/17/18 quetiapine 25 mg tablet 25 mg PO BID #20 tab 10/17/18 11/17/18 meclizine 25 mg PO TID PRN #20 tab 10/23/18 11/17/18 docusate sodium 100 mg tablet 100 mg PO DAILY 10/30/18 11/17/18 diphenhydramine HCl [Benadryl] 25 mg PO Q6H PRN 11/01/18 11/17/18 lorazepam 1 mg tablet 1 mg PO Q6H PRN tab 11/09/18 11/17/18 ondansetron 4 mg PO TID-QID PRN #30 tab 11/12/18 11/17/18 morphine 15 mg immediate release 7.5 mg PO QDAY PRN #4 tab MDD 15 11/13/18 11/17/18 tablet Previous Rx's Medication Instructions Recorded [facility] Advantage kit 10/15/17 albuterol sulfate 2.5 mg INHALATION Q4H PRN PRN 30 10/15/17 Days ml albuterol sulfate HFA 90 2 puff INHALATION Q4H PRN PRN #1 07/02/18 mcg/actuation aerosol inhaler inh Symbicort 10.2 gm INHALATION BID #3 inhaler 09/21/18 pantoprazole 40 mg PO DAILY #90 tab 09/21/18 quetiapine 50 mg tablet 50 mg PO QHS #90 tab 09/26/18 tiotropium bromide 18 mcg capsule 1 cap INHALATION DAILY #90 inh 09/26/18 with inhalation device fluoxetine 20 mg tablet 20 mg PO DAILY #90 tab-cap 10/02/18 quetiapine 25 mg tablet 25 mg PO BID #20 tab 10/17/18 meclizine 25 mg PO TID PRN #20 tab 10/23/18 ondansetron 4 mg PO TID-QID PRN #30 tab 11/12/18 morphine 15 mg immediate release 7.5 mg PO QDAY PRN #4 tab MDD 15 11/13/18 tablet Allergies Allergy/AdvReac Type Severity Reaction Status Date / Time No Known Allergies Allergy Verified 11/13/18 12:34 General Stated Complaint: Abd Prob FLASH: 4 PFSH Social History Smoking/Tobacco Use Status: Former Tobacco Use Quit Date: 06/05/98 Tobacco: How many years used: 30 Alcohol Intake: former Drug use: Never 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 Adopted: No Foster care: No Household members: family Housing: house Number of Children: 0 Communication Needs: None current occupation: not working Current gender identity: male What type of physical activity do you participate in: none and other Details: started lifting weights Frequency: daily Seatbelt use: always 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 Course Vital Signs Temperature 36.8 C 11/19/18 18:01 Pulse 89 11/19/18 18:01 Respiratory Rate 14 11/19/18 18:01 Blood Pressure 143/91 H 11/19/18 18:01 Pulse Oximetry 95 11/19/18 18:01 Temperature 36.8 C 11/19/18 18:01 Pulse 89 11/19/18 18:01 Respiratory Rate 14 11/19/18 18:01 Respiratory Effort Non-Labored 11/19/18 18:03 Blood Pressure 143/91 H 11/19/18 18:01 Pulse Oximetry 95 11/19/18 18:01 Oxygen Delivery Method Room Air 11/19/18 18:01 Oxygen Flow Rate 0 11/19/18 18:01 Pain Level 8 11/19/18 18:01
== END 2018-11-19 18:26 | disposition home or self-care (01) ==
PROVIDERS: Emergency Provider Emergency Medicine; PCP Internal Medicine
DX: K30 Functional dyspepsia (principal)
CPT/HCPCS: 99282

== ENCOUNTER 2018-11-20 18:30 | Emergency (ER) | payer MEDICAID, SELFPAY ==
[2018-11-20 18:37] VITALS: BP 134/89; PULSE 80; RESP 16; TEMP 36.6; O2SAT 96
--- NOTE | 2018-11-20 18:57 | W.ED.GENAD ---
Discharge Plan Disposition Patient Disposition: HOME Condition: Stable Discharge Details Chief Complaint: Abd Prob Clinical Impression: Chronic abdominal pain Primary Care Provider: Deborah Chow ED Provider: Alison Resendiz Home Meds and New Rx's Prescriptions: Continued quetiapine [Seroquel] 50 mg tablet 50 mg PO QHS Qty: 90 RF: 0 Spiriva with HandiHaler 18 mcg capsule, w/inhalation device 1 cap Inhalation DAILY Qty: 90 RF: 0 docusate sodium [Stool Softener] 100 mg tablet 100 mg PO DAILY RF: 0 morphine 15 mg tablet 7.5 mg PO QDAY MDD 15 PRN (Reason: dyspnea) Qty: 4 RF: 0 prednisone 20 mg tablet 20 mg PO BID RF: 0 albuterol sulfate [ProAir HFA] 90 mcg/actuation HFA aerosol inhaler 2 puff Inhalation Q4H PRN PRN (Reason: Shortness Of Breath) Qty: 1 RF: 1 fluoxetine 20 mg tablet 20 mg PO DAILY Qty: 90 RF: 3 quetiapine [Seroquel] 25 mg tablet 25 mg PO BID Qty: 20 RF: 0 lorazepam 1 mg tablet 1 mg PO Q6H PRN (Reason: anxiety) RF: 0 hydroxyzine HCl 25 mg tablet 25 mg PO TID PRNRF: 0 [employer] Advantage 1 EACH spacer 1 ea Miscellaneous DIRECTED RF: 0 albuterol sulfate 2.5 MG/3 ML solution for nebulization 2.5 mg Inhalation Q4H PRN PRN (Reason: Shortness Of Breath) 30 Days RF: 0 guaifenesin [Mucus Relief] 400 mg Tablet 400 mg PO Q4H PRNRF: 0 pantoprazole 40 mg tablet,delayed release (DR/EC) 40 mg PO DAILY Qty: 90 RF: 3 Symbicort 10.2 GM HFA aerosol inhaler 10.2 gm Inhalation BID Qty: 3 RF: 3 diphenhydramine HCl [Benadryl] 25 MG capsule 25 mg PO Q6H PRNRF: 0 meclizine 25 mg tablet 25 mg PO TID PRN (Reason: dizziness) Qty: 20 RF: 0 ondansetron 4 mg tablet,disintegrating 4 mg PO TID-QID PRN (Reason: nausea and vomiting) Qty: 30 RF: 0 Discharge Instructions Instructions: Chronic Pain (ED) Additional Instructions: Take your regular medications as directed. Follow-up with your next scheduled appointment with your primary care doctor. Return to the emergency department if you develop any worsening or new concerning symptoms. Discharge Data Discharge Physician: Alison Resendiz Medical Decision Making 63yo male with a history of anxiety, COPD, lung cancer, former alcohol abuse who presents with his chronic complaint of abdominal pain, chest pain and shortness of breath. Patient has been seen here numerous times in the last 2 months, almost daily for similar complaints. Patient has significant anxiety, and has twice weekly scheduled appointments with his primary care doctor which he had an appointment today for the same complaint. Vitals within normal limits. Lungs clear to auscultation. Abdomen soft and nontender. No rigidity, guarding, erythema. Patient appears nontoxic. I do not see an indication for labs or imaging as this is consistent with his usual daily complaint, he is hemodynamically stable, and abdomen nontender. Patient instructed to follow-up with primary care doctor for evaluation and to return here if worse. HPI General Mode of arrival: ambulatory. Date/Time Provider Initiated Documentation: 11/20/18 18:50. Limitations to Documentation: no limitations. Information obtained by: patient. HPI Narrative: Patient is a 63-year-old male with a history of anxiety, COPD, adjustment disorder, lung cancer, and former alcohol abuse who presents with upper abdominal pain that started today. Patient has been seen in the ED numerous times for similar complaints. This is the 16th visit here this month. Patient states the current episode is consistent with his usual abdominal pain. Patient also admits to his usual daily chest pain shortness of breath. He admits to vomiting 3 episodes today. He denies any known fever. Related Data Home Medications Medication Instructions Recorded Confirmed [employer] Advantage kit 10/15/17 11/20/18 albuterol sulfate 2.5 mg INHALATION Q4H PRN PRN 30 10/15/17 11/20/18 Days ml albuterol sulfate HFA 90 2 puff INHALATION Q4H PRN PRN #1 07/02/18 11/20/18 mcg/actuation aerosol inhaler inh guaifenesin [Mucus Relief] 400 mg PO Q4H PRN 09/09/18 11/20/18 Symbicort 10.2 gm INHALATION BID #3 inhaler 09/21/18 11/20/18 pantoprazole 40 mg PO DAILY #90 tab 09/21/18 11/20/18 quetiapine 50 mg tablet 50 mg PO QHS #90 tab 09/26/18 11/20/18 tiotropium bromide 18 mcg capsule 1 cap INHALATION DAILY #90 inh 09/26/18 11/20/18 with inhalation device fluoxetine 20 mg tablet 20 mg PO DAILY #90 tab-cap 10/02/18 11/20/18 quetiapine 25 mg tablet 25 mg PO BID #20 tab 10/17/18 11/20/18 meclizine 25 mg PO TID PRN #20 tab 10/23/18 11/20/18 docusate sodium 100 mg tablet 100 mg PO DAILY 10/30/18 11/20/18 diphenhydramine HCl [Benadryl] 25 mg PO Q6H PRN 11/01/18 11/20/18 lorazepam 1 mg tablet 1 mg PO Q6H PRN tab 11/09/18 11/20/18 ondansetron 4 mg PO TID-QID PRN #30 tab 11/12/18 11/20/18 morphine 15 mg immediate release 7.5 mg PO QDAY PRN #4 tab MDD 15 11/13/18 11/20/18 tablet hydroxyzine HCl 25 mg tablet 25 mg PO TID PRN tab 11/20/18 11/20/18 prednisone 20 mg tablet 20 mg PO BID 11/20/18 11/20/18 Previous Rx's Medication Instructions Recorded [facility] Advantage kit 10/15/17 albuterol sulfate 2.5 mg INHALATION Q4H PRN PRN 30 10/15/17 Days ml albuterol sulfate HFA 90 2 puff INHALATION Q4H PRN PRN #1 07/02/18 mcg/actuation aerosol inhaler inh Symbicort 10.2 gm INHALATION BID #3 inhaler 09/21/18 pantoprazole 40 mg PO DAILY #90 tab 09/21/18 quetiapine 50 mg tablet 50 mg PO QHS #90 tab 09/26/18 tiotropium bromide 18 mcg capsule 1 cap INHALATION DAILY #90 inh 09/26/18 with inhalation device fluoxetine 20 mg tablet 20 mg PO DAILY #90 tab-cap 10/02/18 quetiapine 25 mg tablet 25 mg PO BID #20 tab 10/17/18 meclizine 25 mg PO TID PRN #20 tab 10/23/18 ondansetron 4 mg PO TID-QID PRN #30 tab 11/12/18 morphine 15 mg immediate release 7.5 mg PO QDAY PRN #4 tab MDD 15 11/13/18 tablet Allergies Allergy/AdvReac Type Severity Reaction Status Date / Time No Known Allergies Allergy Verified 11/20/18 15:34 General Stated Complaint: Abd Prob FLASH: 4 Review of Systems Review of Systems All systems reviewed & are unremarkable except as noted in HPI and below Constitutional Reports as per HPI, Denies chills and Denies fever(s) Eyes Denies blurry vision ENT Denies dizziness, Denies sore throat and Denies throat swelling Cardiovascular Denies chest pain and Denies dyspnea Respiratory Denies cough and Denies dyspnea Gastrointestinal Reports abdominal pain, Denies diarrhea and Denies vomiting Genitourinary Denies hematuria and Denies dysuria Musculoskeletal Denies back pain and Denies numbness Integumentary/Breasts Denies lesions and Denies rash Neurologic Denies dizziness, Denies focal weakness and Denies numbness Allergic/Immunologic Denies throat swelling [facility] Medical History COPD (chronic obstructive pulmonary disease) (Chronic) Adjustment disorder with anxiety (Chronic) Alcohol abuse (Chronic) Anxiety (Chronic) Dyspepsia (Chronic) Malignant neoplasm of right lung (Chronic) Tubular adenoma of colon (Inactive) Surgical History History of lung biopsy (Resolved) History of surgery on upper extremity (Resolved) colonoscopy (Inactive 01/19/15) Family History Father Essential hypertension Hyperlipidemia Paternal Uncle Heart disease Stroke Cerebral hemorrhage Hypertension Brother Cancer Social History Smoking/Tobacco Use Status: Former Tobacco Use Quit Date: 06/05/98 Tobacco: How many years used: 30 Alcohol Intake: former Drug use: Never 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 Adopted: No Foster care: No Household members: family Housing: house Number of Children: 0 Communication Needs: None current occupation: not working Current gender identity: male What type of physical activity do you participate in: none and other Details: started lifting weights Frequency: daily Seatbelt use: always 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 Exam Const General: cooperative, healthy appearing and no acute distress HENMT Head: normal to inspection Face and sinus: normal facial exam Eyes General: appearance normal, both eyes and all related structures Pupils: PERRL EOM: EOM intact bilaterally Neck Neck: normal visual inspection and No submandibular swelling Lymphatic: no lymphadenopathy noted Chest Chest: normal inspection of the chest and no tenderness Resp Effort & Inspection: normal respiratory effort and able to speak in complete sentences Auscultation: clear to auscultation bilaterally Cardio Rate: regular rate Rhythm: regular rhythm GI Inspection: normal to inspection Palpation: soft, not firm, not rigid and nontender Auscultation: normal bowel sounds Back/Spine/Pelvis Pelvis: no pain with anterior-posterior compression Skin General skin exam: no rashes or lesions noted Neuro General: alert, awake and oriented x3 Cognition: normal cognition Speech: speech normal Motor: muscle tone normal throughout Sensory Exam: no sensory deficits noted Extrem General: normal to inspection, full ROM, normal capillary refill and no edema Psych Appearance: grossly normal Mental Status: mental status grossly normal Speech and Movement: speech and movement normal Affect: normal affect Course Vital Signs Temperature 97.9 F 11/20/18 18:37 Pulse 80 11/20/18 18:37 Respiratory Rate 16 11/20/18 18:37 Blood Pressure 134/89 11/20/18 18:37 Pulse Oximetry 96 11/20/18 18:37 Temperature 97.9 F 11/20/18 18:37 Temperature Source Skin 11/20/18 18:37 Pulse 80 11/20/18 18:37 Respiratory Rate 16 11/20/18 18:37 Respiratory Effort Non-Labored 11/20/18 18:41 Blood Pressure 134/89 11/20/18 18:37 Blood Pressure Position Sitting 11/20/18 18:37 Pulse Oximetry 96 11/20/18 18:37 Oxygen Delivery Method Room Air 11/20/18 18:37 Oxygen Flow Rate 0 11/20/18 18:37
[2018-11-20 19:15] VITALS: BP 134/89; PULSE 80; RESP 16; TEMP 36.6; O2SAT 96
== END 2018-11-20 19:20 | disposition home or self-care (01) ==
PROVIDERS: Emergency Provider Physician Assistant; PCP Internal Medicine
DX: G89.29 Other chronic pain (principal); R07.9 Chest pain, unspecified; R10.9 Unspecified abdominal pain; R06.02 Shortness of breath; F41.9 Anxiety disorder, unspecified; J44.9 Chronic obstructive pulmonary disease, unspecified
CPT/HCPCS: 99282

== ENCOUNTER 2018-11-21 18:19 | Emergency (ER) | payer MEDICAID, SELFPAY ==
[2018-11-21 18:30] VITALS: BP 128/72; PULSE 78; RESP 20; TEMP 36.8; O2SAT 98
--- NOTE | 2018-11-21 18:37 | W.ED.GENAD ---
Discharge Plan Disposition Patient Disposition: HOME Condition: Good Discharge Details Chief Complaint: Abd Prob Clinical Impression: Abdominal pain Primary Care Provider: Deborah Chow ED Provider: Angelica Majano Home Meds and New Rx's Prescriptions: Continued quetiapine [Seroquel] 50 mg tablet 50 mg PO QHS Qty: 90 RF: 0 Spiriva with HandiHaler 18 mcg capsule, w/inhalation device 1 cap Inhalation DAILY Qty: 90 RF: 0 docusate sodium [Stool Softener] 100 mg tablet 100 mg PO DAILY RF: 0 morphine 15 mg tablet 7.5 mg PO QDAY MDD 15 PRN (Reason: dyspnea) Qty: 4 RF: 0 prednisone 20 mg tablet 20 mg PO BID RF: 0 albuterol sulfate [ProAir HFA] 90 mcg/actuation HFA aerosol inhaler 2 puff Inhalation Q4H PRN PRN (Reason: Shortness Of Breath) Qty: 1 RF: 1 fluoxetine 20 mg tablet 20 mg PO DAILY Qty: 90 RF: 3 quetiapine [Seroquel] 25 mg tablet 25 mg PO BID Qty: 20 RF: 0 lorazepam 1 mg tablet 1 mg PO Q6H PRN (Reason: anxiety) RF: 0 hydroxyzine HCl 25 mg tablet 25 mg PO TID PRNRF: 0 OptiChamber Advantage 1 EACH spacer 1 ea Miscellaneous DIRECTED RF: 0 albuterol sulfate 2.5 MG/3 ML solution for nebulization 2.5 mg Inhalation Q4H PRN PRN (Reason: Shortness Of Breath) 30 Days RF: 0 guaifenesin [Mucus Relief] 400 mg Tablet 400 mg PO Q4H PRNRF: 0 pantoprazole 40 mg tablet,delayed release (DR/EC) 40 mg PO DAILY Qty: 90 RF: 3 Symbicort 10.2 GM HFA aerosol inhaler 10.2 gm Inhalation BID Qty: 3 RF: 3 diphenhydramine HCl [Benadryl] 25 MG capsule 25 mg PO Q6H PRNRF: 0 meclizine 25 mg tablet 25 mg PO TID PRN (Reason: dizziness) Qty: 20 RF: 0 ondansetron 4 mg tablet,disintegrating 4 mg PO TID-QID PRN (Reason: nausea and vomiting) Qty: 30 RF: 0 Discharge Instructions Instructions: Abdominal Pain (ED) Additional Instructions: Encourage hydration. Please continue with plan as previously outlined by her primary care. Follow-up with them tomorrow as previously scheduled. Seek care urgently once again with new or worsening symptoms Referrals: Deborah Chow MD [Primary Care Provider] - Medical Decision Making Patient is 63-year-old male with multiple comorbidities, well-known to myself, with chief complaint of hernia. Patient's been here multiple times the same complaint. On exam, patient has a slight protrusion to the epigastric area but no evidence of incarceration. I am unable to palpate any defect. Patient is continuing to help with this area. Advised that he stop palpating this is much. Advised that he discuss this further with his primary care and that if discomfort persists he should have asked for referral for general surgery. No peritoneal findings or evidence of acute abdomen. He has an appointment with his primary care tomorrow. He will seek care urgently with new or worsening symptoms HPI General Mode of arrival: ambulatory. Date/Time Provider Initiated Documentation: 11/21/18 18:36. Limitations to Documentation: no limitations. Information obtained by: patient and RN notes reviewed. History of Present Illness 63 year old M presents to the emergency department with the chief complaint of hernia, described as moderate, Quality is described as aching, and is localized to the abdomen. Patient reports no radiation. Patient started experiencing this week(s) and it has been constant. No relieving factors improve symptom(s), No exacerbating factors reported . Patient notes no other symptoms.. Patient did receive the following treatments prior to arrival, none Related Data Home Medications Medication Instructions [facility]ed [facility] 10/15/17 11/21/18 albuterol sulfate 2.5 mg INHALATION Q4H PRN PRN 30 10/15/17 11/21/18 Days ml albuterol sulfate HFA 90 2 puff INHALATION Q4H PRN PRN #1 07/02/18 11/21/18 mcg/actuation aerosol inhaler inh guaifenesin [Mucus Relief] 400 mg PO Q4H PRN 09/09/18 11/21/18 Symbicort 10.2 gm INHALATION BID #3 inhaler 09/21/18 11/21/18 pantoprazole 40 mg PO DAILY #90 tab 09/21/18 11/21/18 quetiapine 50 mg tablet 50 mg PO QHS #90 tab 09/26/18 11/21/18 tiotropium bromide 18 mcg capsule 1 cap INHALATION DAILY #90 inh 09/26/18 11/21/18 with inhalation device fluoxetine 20 mg tablet 20 mg PO DAILY #90 tab-cap 10/02/18 11/21/18 quetiapine 25 mg tablet 25 mg PO BID #20 tab 10/17/18 11/21/18 meclizine 25 mg PO TID PRN #20 tab 10/23/18 11/21/18 docusate sodium 100 mg tablet 100 mg PO DAILY 10/30/18 11/21/18 diphenhydramine HCl [Benadryl] 25 mg PO Q6H PRN 11/01/18 11/21/18 lorazepam 1 mg tablet 1 mg PO Q6H PRN tab 11/09/18 11/21/18 ondansetron 4 mg PO TID-QID PRN #30 tab 11/12/18 11/21/18 morphine 15 mg immediate release 7.5 mg PO QDAY PRN #4 tab MDD 15 11/13/18 11/21/18 tablet hydroxyzine HCl 25 mg tablet 25 mg PO TID PRN tab 11/20/18 11/21/18 prednisone 20 mg tablet 20 mg PO BID 11/20/18 11/21/18 Previous Rx's Medication Instructions Recorded [facility] Advantage kit 10/15/17 albuterol sulfate 2.5 mg INHALATION Q4H PRN PRN 30 10/15/17 Days ml albuterol sulfate HFA 90 2 puff INHALATION Q4H PRN PRN #1 07/02/18 mcg/actuation aerosol inhaler inh Symbicort 10.2 gm INHALATION BID #3 inhaler 09/21/18 pantoprazole 40 mg PO DAILY #90 tab 09/21/18 quetiapine 50 mg tablet 50 mg PO QHS #90 tab 09/26/18 tiotropium bromide 18 mcg capsule 1 cap INHALATION DAILY #90 inh 09/26/18 with inhalation device fluoxetine 20 mg tablet 20 mg PO DAILY #90 tab-cap 10/02/18 quetiapine 25 mg tablet 25 mg PO BID #20 tab 10/17/18 meclizine 25 mg PO TID PRN #20 tab 10/23/18 ondansetron 4 mg PO TID-QID PRN #30 tab 11/12/18 morphine 15 mg immediate release 7.5 mg PO QDAY PRN #4 tab MDD 15 11/13/18 tablet Allergies Allergy/AdvReac Type Severity Reaction Status Date / Time No Known Allergies Allergy Verified 11/21/18 18:31 General Stated Complaint: Abd Prob FLASH: 4 Review of Systems Constitutional Reports as per HPI, Denies chills, Denies fatigue, Denies fever(s) and Denies headache(s) ENT Denies headache(s) Cardiovascular Reports as per HPI, Denies chest pain and Denies dyspnea Respiratory Reports as per HPI, Denies cough and Denies dyspnea Gastrointestinal Reports as per HPI Genitourinary Denies system reviewed and no additional complaints, except as docu (patient denies any change in urinary habits) Musculoskeletal Reports as per HPI and Denies back pain Integumentary/Breasts Reports as per HPI and Denies rash Neurologic Reports as per HPI and Denies headache(s) Endocrine Denies fatigue [facility] Medical History COPD (chronic obstructive pulmonary disease) (Chronic) Adjustment disorder with anxiety (Chronic) Alcohol abuse (Chronic) Anxiety (Chronic) Dyspepsia (Chronic) Malignant neoplasm of right lung (Chronic) Tubular adenoma of colon (Inactive) Surgical History History of lung biopsy (Resolved) History of surgery on upper extremity (Resolved) colonoscopy (Inactive 01/19/15) Social History Smoking/Tobacco Use Status: Former Tobacco Use Quit Date: 06/05/98 Tobacco: How many years used: 30 Alcohol Intake: former Drug use: Never 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 Adopted: No Foster care: No Household members: family Housing: house Number of Children: 0 Communication Needs: None current occupation: not working Current gender identity: male What type of physical activity do you participate in: none and other Details: started lifting weights Frequency: daily Seatbelt use: always Drive 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 Exam Const General: cooperative, healthy appearing, comfortable, no acute distress and well developed Nutritional Appearance: average body habitus Orientation: alert and awake HENNM Head: normal to inspection Mouth: moist mucous membranes Resp Effort & Inspection: normal respiratory effort, able to speak in complete sentences and no respiratory distress Auscultation: clear to auscultation bilaterally, no rales, no rhonchi and no wheezes Cardio Rate: regular rate Rhythm: regular rhythm Heart Sounds: S1 normal and S2 normal GI Inspection: normal to inspection Palpation: soft, no hepatosplenomegaly, not firm, no guarding, not rigid and nontender Percussion: normal to percussion Auscultation: normal bowel sounds Back/Spine/Pelvis Back: no CVA tenderness Skin General skin exam: no rashes or lesions noted Trauma: no lacerations or abrasions Neuro General: alert and awake Cognition: normal cognition Speech: speech normal Gait: normal gait Psych Appearance: grossly normal and well kempt Mental Status: mental status grossly normal Speech and Movement: speech and movement normal Course Vital Signs Temperature 36.8 C 11/21/18 18:30 Pulse 78 11/21/18 18:30 Respiratory Rate 20 11/21/18 18:30 Blood Pressure 128/72 11/21/18 18:30 Pulse Oximetry 98 11/21/18 18:30 Temperature 36.8 C 11/21/18 18:30 Pulse 78 11/21/18 18:30 Respiratory Rate 20 11/21/18 18:30 Respiratory Effort Non-Labored 11/21/18 18:30 Blood Pressure 128/72 11/21/18 18:30 Pulse Oximetry 98 11/21/18 18:30 Oxygen Delivery Method Room Air 11/21/18 18:30 Oxygen Flow Rate 0 11/21/18 18:30
--- NOTE | 2018-11-21 18:49 | ED.GENADUL_ITS ---
Discharge Plan Disposition Patient Disposition: HOME Condition: Good Discharge Details Chief Complaint: Abd Prob Clinical Impression: Abdominal pain Primary Care Provider: Deborah Chow ED Provider: Angelica Majano Home Meds and New Rx's Prescriptions: Continued quetiapine [Seroquel] 50 mg tablet 50 mg PO QHS Qty: 90 RF: 0 Spiriva with HandiHaler 18 mcg capsule, w/inhalation device 1 cap Inhalation DAILY Qty: 90 RF: 0 docusate sodium [Stool Softener] 100 mg tablet 100 mg PO DAILY RF: 0 morphine 15 mg tablet 7.5 mg PO QDAY MDD 15 PRN (Reason: dyspnea) Qty: 4 RF: 0 prednisone 20 mg tablet 20 mg PO BID RF: 0 albuterol sulfate [ProAir HFA] 90 mcg/actuation HFA aerosol inhaler 2 puff Inhalation Q4H PRN PRN (Reason: Shortness Of Breath) Qty: 1 RF: 1 fluoxetine 20 mg tablet 20 mg PO DAILY Qty: 90 RF: 3 quetiapine [Seroquel] 25 mg tablet 25 mg PO BID Qty: 20 RF: 0 lorazepam 1 mg tablet 1 mg PO Q6H PRN (Reason: anxiety) RF: 0 hydroxyzine HCl 25 mg tablet 25 mg PO TID PRNRF: 0 OptiChamber Advantage 1 EACH spacer 1 ea Miscellaneous DIRECTED RF: 0 albuterol sulfate 2.5 MG/3 ML solution for nebulization 2.5 mg Inhalation Q4H PRN PRN (Reason: Shortness Of Breath) 30 Days RF: 0 guaifenesin [Mucus Relief] 400 mg Tablet 400 mg PO Q4H PRNRF: 0 pantoprazole 40 mg tablet,delayed release (DR/EC) 40 mg PO DAILY Qty: 90 RF: 3 Symbicort 10.2 GM HFA aerosol inhaler 10.2 gm Inhalation BID Qty: 3 RF: 3 diphenhydramine HCl [Benadryl] 25 MG capsule 25 mg PO Q6H PRNRF: 0 meclizine 25 mg tablet 25 mg PO TID PRN (Reason: dizziness) Qty: 20 RF: 0 ondansetron 4 mg tablet,disintegrating 4 mg PO TID-QID PRN (Reason: nausea and vomiting) Qty: 30 RF: 0 Discharge Instructions Instructions: Abdominal Pain (ED) Additional Instructions: Encourage hydration. Please continue with plan as previously outlined by her primary care. Follow-up with them tomorrow as previously scheduled. Seek care urgently once again with new or worsening symptoms Referrals: Deborah Chow MD [Primary Care Provider] - Medical Decision Making Patient is 63-year-old male with multiple comorbidities, well-known to myself, with chief complaint of hernia. Patient's been here multiple times the same complaint. On exam, patient has a slight protrusion to the epigastric area but no evidence of incarceration. I am unable to palpate any defect. Patient is continuing to help with this area. Advised that he stop palpating this is much. Advised that he discuss this further with his primary care and that if discomfort persists he should have asked for referral for general surgery. No peritoneal findings or evidence of acute abdomen. He has an appointment with his primary care tomorrow. He will seek care urgently with new or worsening symptoms HPI General Mode of arrival: ambulatory . Date/Time Provider Initiated Documentation: 11/21/18 18:36 . Limitations to Documentation: no limitations . Information obtained by: patient and RN notes reviewed . History of Present Illness 63 year old M presents to the emergency department with the chief complaint of hernia, described as moderate, Quality is described as aching, and is localized to the abdomen. Patient reports no radiation. Patient started experiencing this week(s) and it has been constant. No relieving factors improve symptom(s), No exacerbating factors reported . Patient notes no other symptoms.. Patient did receive the following treatments prior to arrival, none Related Data Home Medications Medication Instructions Recorded [facility] 11/21/18 albuterol sulfate 2.5 mg INHALATION Q4H PRN PRN 30 10/15/17 11/21/18 Days ml albuterol sulfate HFA 90 2 puff INHALATION Q4H PRN PRN #1 07/02/18 11/21/18 mcg/actuation aerosol inhaler inh guaifenesin [Mucus Relief] 400 mg PO Q4H PRN 09/09/18 11/21/18 Symbicort 10.2 gm INHALATION BID #3 inhaler 09/21/18 11/21/18 pantoprazole 40 mg PO DAILY #90 tab 09/21/18 11/21/18 quetiapine 50 mg tablet 50 mg PO QHS #90 tab 09/26/18 11/21/18 tiotropium bromide 18 mcg capsule 1 cap INHALATION DAILY #90 inh 09/26/18 11/21/18 with inhalation device fluoxetine 20 mg tablet 20 mg PO DAILY #90 tab-cap 10/02/18 11/21/18 quetiapine 25 mg tablet 25 mg PO BID #20 tab 10/17/18 11/21/18 meclizine 25 mg PO TID PRN #20 tab 10/23/18 11/21/18 docusate sodium 100 mg tablet 100 mg PO DAILY 10/30/18 11/21/18 diphenhydramine HCl [Benadryl] 25 mg PO Q6H PRN 11/01/18 11/21/18 lorazepam 1 mg tablet 1 mg PO Q6H PRN tab 11/09/18 11/21/18 ondansetron 4 mg PO TID-QID PRN #30 tab 11/12/18 11/21/18 morphine 15 mg immediate release 7.5 mg PO QDAY PRN #4 tab MDD 15 11/13/18 11/21/18 tablet hydroxyzine HCl 25 mg tablet 25 mg PO TID PRN tab 11/20/18 11/21/18 prednisone 20 mg tablet 20 mg PO BID 11/20/18 11/21/18 Previous Rx's Medication Instructions Recorded [facility] Advantage kit 10/15/17 albuterol sulfate 2.5 mg INHALATION Q4H PRN PRN 30 10/15/17 Days ml albuterol sulfate HFA 90 2 puff INHALATION Q4H PRN PRN #1 07/02/18 mcg/actuation aerosol inhaler inh Symbicort 10.2 gm INHALATION BID #3 inhaler 09/21/18 pantoprazole 40 mg PO DAILY #90 tab 09/21/18 quetiapine 50 mg tablet 50 mg PO QHS #90 tab 09/26/18 tiotropium bromide 18 mcg capsule 1 cap INHALATION DAILY #90 inh 09/26/18 with inhalation device fluoxetine 20 mg tablet 20 mg PO DAILY #90 tab-cap 10/02/18 quetiapine 25 mg tablet 25 mg PO BID #20 tab 10/17/18 meclizine 25 mg PO TID PRN #20 tab 10/23/18 ondansetron 4 mg PO TID-QID PRN #30 tab 11/12/18 morphine 15 mg immediate release 7.5 mg PO QDAY PRN #4 tab MDD 15 11/13/18 tablet Allergies Allergy/AdvReac Type Severity Reaction Status Date / Time No Known Allergies Allergy Verified 11/21/18 18:31 General Stated Complaint: Abd Prob FLASH: 4 Review of Systems Constitutional Reports as per HPI, Denies chills, Denies fatigue, Denies fever(s) and Denies headache(s) ENT Denies headache(s) Cardiovascular Reports as per HPI, Denies chest pain and Denies dyspnea Respiratory Reports as per HPI, Denies cough and Denies dyspnea Gastrointestinal Reports as per HPI Genitourinary Denies system reviewed and no additional complaints, except as docu (patient denies any change in urinary habits) Musculoskeletal Reports as per HPI and Denies back pain Integumentary/Breasts Reports as per HPI and Denies rash Neurologic Reports as per HPI and Denies headache(s) Endocrine Denies fatigue COUNTS INCLUDE [facility] BEDS AT [facility] Medical History COPD (chronic obstructive pulmonary disease) (Chronic) Adjustment disorder with anxiety (Chronic) Alcohol abuse (Chronic) Anxiety (Chronic) Dyspepsia (Chronic) Malignant neoplasm of right lung (Chronic) Tubular adenoma of colon (Inactive) Surgical History History of lung biopsy (Resolved) History of surgery on upper extremity (Resolved) colonoscopy (Inactive 01/19/15) Social History Smoking/Tobacco Use Status: Former Tobacco Use Quit Date: 06/05/98 Tobacco: How many years used: 30 Alcohol Intake: former Drug use: Never 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 Adopted: No Foster care: No Household members: family Housing: house Number of Children: 0 Communication Needs: None current occupation: not working Current gender identity: male What type of physical activity do you participate in: none and other Details: started lifting weights Frequency: daily Seatbelt use: always Drive intox or ride w/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 Exam Const General: cooperative, healthy appearing, comfortable, no acute distress and well developed Nutritional Appearance: average body habitus Orientation: alert and awake HENTX Head: normal to inspection Mouth: moist mucous membranes Resp Effort & Inspection: normal respiratory effort, able to speak in complete sentences and no respiratory distress Auscultation: clear to auscultation bilaterally, no rales, no rhonchi and no wheezes Cardio Rate: regular rate Rhythm: regular rhythm Heart Sounds: S1 normal and S2 normal GI Inspection: normal to inspection Palpation: soft, no hepatosplenomegaly, not firm, no guarding, not rigid and nontender Percussion: normal to percussion Auscultation: normal bowel sounds Back/Spine/Pelvis Back: no CVA tenderness Skin General skin exam: no rashes or lesions noted Trauma: no lacerations or abrasions Neuro General: alert and awake Cognition: normal cognition Speech: speech normal Gait: normal gait Psych Appearance: grossly normal and well kempt Mental Status: mental status grossly normal Speech and Movement: speech and movement normal Course Vital Signs Temperature 36.8 C 11/21/18 18:30 Pulse 78 11/21/18 18:30 Respiratory Rate 20 11/21/18 18:30 Blood Pressure 128/72 11/21/18 18:30 Pulse Oximetry 98 11/21/18 18:30 Temperature 36.8 C 11/21/18 18:30 Pulse 78 11/21/18 18:30 Respiratory Rate 20 11/21/18 18:30 Respiratory Effort Non-Labored 11/21/18 18:30 Blood Pressure 128/72 11/21/18 18:30 Pulse Oximetry 98 11/21/18 18:30 Oxygen Delivery Method Room Air 11/21/18 18:30 Oxygen Flow Rate 0 11/21/18 18:30
[2018-11-21 18:53] VITALS: BP 128/72; PULSE 78; RESP 20; TEMP 36.8; O2SAT 98
== END 2018-11-21 19:07 | disposition home or self-care (01) ==
PROVIDERS: Emergency Provider Physician Assistant; PCP Internal Medicine
DX: R10.9 Unspecified abdominal pain (principal); F41.9 Anxiety disorder, unspecified; J44.9 Chronic obstructive pulmonary disease, unspecified; Z87.891 Personal history of nicotine dependence
CPT/HCPCS: 99282

== ENCOUNTER 2018-11-23 18:37 | Emergency (ER) | payer MEDICAID, SELFPAY ==
[2018-11-23 18:41] VITALS: TEMP 36.4
[2018-11-23 18:53] VITALS: BP 134/82; PULSE 78; RESP 16; O2SAT 98
--- NOTE | 2018-11-23 18:53 | ED.GENADUL_ITS ---
Discharge Plan Disposition Patient Disposition: HOME Condition: Good Discharge Details Chief Complaint: Abd Prob Clinical Impression: Acute epigastric pain Primary Care Provider: Deborah Chow ED Provider: Pedro Nichole Home Meds and New Rx's Prescriptions: No Action quetiapine [Seroquel] 50 mg tablet 50 mg PO QHS Qty: 90 RF: 0 Spiriva with HandiHaler 18 mcg capsule, w/inhalation device 1 cap Inhalation DAILY Qty: 90 RF: 0 docusate sodium [Stool Softener] 100 mg tablet 100 mg PO DAILY RF: 0 morphine 15 mg tablet 7.5 mg PO QDAY MDD 15 PRN (Reason: dyspnea) Qty: 4 RF: 0 prednisone 20 mg tablet 20 mg PO BID RF: 0 albuterol sulfate [ProAir HFA] 90 mcg/actuation HFA aerosol inhaler 2 puff Inhalation Q4H PRN PRN (Reason: Shortness Of Breath) Qty: 1 RF: 1 fluoxetine 20 mg tablet 20 mg PO DAILY Qty: 90 RF: 3 quetiapine [Seroquel] 25 mg tablet 25 mg PO BID Qty: 20 RF: 0 lorazepam 1 mg tablet 1 mg PO Q6H PRN (Reason: anxiety) RF: 0 hydroxyzine HCl 25 mg tablet 25 mg PO TID PRNRF: 0 [employer] Advantage 1 EACH spacer 1 ea Miscellaneous DIRECTED RF: 0 albuterol sulfate 2.5 MG/3 ML solution for nebulization 2.5 mg Inhalation Q4H PRN PRN (Reason: Shortness Of Breath) 30 Days RF: 0 guaifenesin [Mucus Relief] 400 mg Tablet 400 mg PO Q4H PRNRF: 0 pantoprazole 40 mg tablet,delayed release (DR/EC) 40 mg PO DAILY Qty: 90 RF: 3 Symbicort 10.2 GM HFA aerosol inhaler 10.2 gm Inhalation BID Qty: 3 RF: 3 diphenhydramine HCl [Benadryl] 25 MG capsule 25 mg PO Q6H PRNRF: 0 meclizine 25 mg tablet 25 mg PO TID PRN (Reason: dizziness) Qty: 20 RF: 0 ondansetron 4 mg tablet,disintegrating 4 mg PO TID-QID PRN (Reason: nausea and vomiting) Qty: 30 RF: 0 Discharge Instructions Instructions: Abdominal Pain (ED) Additional Instructions: Please avoid large greasy or spicy meals. If you notice any worsening of your symptoms, or any new symptoms such as vomiting, diarrhea, fever, chills, shortness of breath, chest pain, numbness, weakness, or fainting , please return immediately to the emergency department for reevaluation. Please follow up with your primary care provider as soon as possible for reassessment and reevaluation. As always, it was a pleasure participating in your medical care today. Referrals: Deborah Chow MD [Primary Care Provider] - Medical Decision Making This is a pleasant 63-year-old male who is well-known to the emergency department presents today with his chronic epigastric pain that he is seen here for on a nearly daily basis. He has had multiple CT scans, multiple laboratory work-ups even within the last 1 to 2 weeks. All of which have been benign. No acute processes. Symptoms are unchanged from his chronic complaints. Exam demonstrates normal and notably reassuring vital signs of no tachycardia, tachypnea, hypoxemia, or fever. He does have minimally reproducible epigastric pain, no vomiting or diarrhea. Symptoms began after he had a large meal of a burger, and [place] fries. EKG shows no significant acute abnormalities. Signs and symptoms appear consistent with mild gastritis. Recommend is continued close follow-up with his PCP. With no clinical evidence of an emergent etiology at this time, and signs and symptoms clinically inconsistent with ACS,, dissection, PE, severe pancreatitis, ileus or obstruction, I feel he can be safely discharged home with close follow-up with his PCP. I have extensively reviewed the treatment plan and discharge instructions with the patient. I have addressed all patient concerns at this time. The patient was made aware of what symptoms to monitor for that would warrant a return to the emergency department. Discussed the plan with the patient, they demonstrate verbal understanding and agreement with our assessment and plan at this time. EKG 18: 52 Rate 72, intervals normal, sinus rhythm, no significant ST elevations or depressions, no significant Q waves. No significant changes from prior EKG. HPI General Date/Time Provider Initiated Documentation: 11/23/18 18:39 . HPI Narrative: This is a 63-year-old male who is well-known to the emergency department with a past medical history of alcoholism, chronic recurrent noncardiac chest pain, chronic epigastric pain, COPD, notable anxiety, who presents today for recurrence of his chronic epigastric pain. He states that he had a large meal earlier today of a burger, [place] fries, milk and noticed that the symptoms started shortly after that. He denies any chest pain, chest heaviness, or severe chest tightness. He denies any vomiting or diarrhea. He denies any arm neck or shoulder pain. He denies any vomiting or diarrhea. He saw his family doctor already once today per the patient. He has no other complaints or modifying factors at this time. Related Data Home Medications Medication Instructions Recorded [email or web address] 10/15/17 11/21/18 albuterol sulfate 2.5 mg INHALATION Q4H PRN PRN 30 10/15/17 11/21/18 Days ml albuterol sulfate HFA 90 2 puff INHALATION Q4H PRN PRN #1 07/02/18 11/21/18 mcg/actuation aerosol inhaler inh guaifenesin [Mucus Relief] 400 mg PO Q4H PRN 09/09/18 11/21/18 Symbicort 10.2 gm INHALATION BID #3 inhaler 09/21/18 11/21/18 pantoprazole 40 mg PO DAILY #90 tab 09/21/18 11/21/18 quetiapine 50 mg tablet 50 mg PO QHS #90 tab 09/26/18 11/21/18 tiotropium bromide 18 mcg capsule 1 cap INHALATION DAILY #90 inh 09/26/18 11/21/18 with inhalation device fluoxetine 20 mg tablet 20 mg PO DAILY #90 tab-cap 10/02/18 11/21/18 quetiapine 25 mg tablet 25 mg PO BID #20 tab 10/17/18 11/21/18 meclizine 25 mg PO TID PRN #20 tab 10/23/18 11/21/18 docusate sodium 100 mg tablet 100 mg PO DAILY 10/30/18 11/21/18 diphenhydramine HCl [Benadryl] 25 mg PO Q6H PRN 11/01/18 11/21/18 lorazepam 1 mg tablet 1 mg PO Q6H PRN tab 11/09/18 11/21/18 ondansetron 4 mg PO TID-QID PRN #30 tab 11/12/18 11/21/18 morphine 15 mg immediate release 7.5 mg PO QDAY PRN #4 tab MDD 15 11/13/18 11/21/18 tablet hydroxyzine HCl 25 mg tablet 25 mg PO TID PRN tab 11/20/18 11/21/18 prednisone 20 mg tablet 20 mg PO BID 11/20/18 11/21/18 Previous Rx's Medication Instructions [facility]ed [facility] 10/15/17 albuterol sulfate 2.5 mg INHALATION Q4H PRN PRN 30 10/15/17 Days ml albuterol sulfate HFA 90 2 puff INHALATION Q4H PRN PRN #1 07/02/18 mcg/actuation aerosol inhaler inh Symbicort 10.2 gm INHALATION BID #3 inhaler 09/21/18 pantoprazole 40 mg PO DAILY #90 tab 09/21/18 quetiapine 50 mg tablet 50 mg PO QHS #90 tab 09/26/18 tiotropium bromide 18 mcg capsule 1 cap INHALATION DAILY #90 inh 09/26/18 with inhalation device fluoxetine 20 mg tablet 20 mg PO DAILY #90 tab-cap 10/02/18 quetiapine 25 mg tablet 25 mg PO BID #20 tab 10/17/18 meclizine 25 mg PO TID PRN #20 tab 10/23/18 ondansetron 4 mg PO TID-QID PRN #30 tab 11/12/18 morphine 15 mg immediate release 7.5 mg PO QDAY PRN #4 tab MDD 15 11/13/18 tablet Allergies Allergy/AdvReac Type Severity Reaction Status Date / Time No Known Allergies Allergy Verified 11/21/18 18:31 General Stated Complaint: Abd Prob FLASH: 3 Review of Systems Review of Systems All systems reviewed & are unremarkable except as noted in HPI and below PFSH Social History Smoking/Tobacco Use Status: Former Tobacco Use Quit Date: 06/05/98 Tobacco: How many years used: 30 Alcohol Intake: former Drug use: Never 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 Adopted: No Foster care: No Household members: family Housing: house Number of Children: 0 Communication Needs: None current occupation: not working Current gender identity: male What type of physical activity do you participate in: none and other Details: started lifting weights Frequency: daily Seatbelt use: always Drive 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 Exam Narrative Exam Narrative: 1.Const: Well-nourished, Well-developed, appearing stated age 2.Eyes: PERRL, no conjunctival injection, and symmetrical lids. 3.ENT: Atraumatic external nose and ears. Moist MM. Neck: Symmetric, trachea midline, No thyromegaly. 4.CVS: +S1/S2, No murmurs or gallops. Peripheral pulses 2+ and equal in all extremities. Brisk capillary refill in all extremities. 5.RESP: Unlabored respiratory effort. Clear to auscultation bilaterally. No wheezes rales or rhonchi 6.GI: Soft, Nontender/Nondistended, No hepatosplenomegaly. No guarding or rebound. No significant epigastric pain or tenderness. 7.MSK: Normocephalic/Atraumatic, Extremities w/o deformity or ttp No cyanosis or clubbing, Normal movement of all extremities 8.Skin: Warm, Dry. No rashes or lesions. 9.Neuro: elevated guard II-XII grossly intact. Sensation grossly intact, no focal neurologic deficits. 10.Psych: (AAO) x3. Appropriate mood and affect Course Vital Signs Temperature 36.4 C L 11/23/18 18:41 Temperature 36.4 C L 11/23/18 18:41 Temperature Source Temporal Artery Scan 11/23/18 18:41 Respiratory Effort Non-Labored 11/23/18 18:44
== END 2018-11-23 18:58 | disposition home or self-care (01) ==
LOC: ER 18:56
PROVIDERS: Emergency Provider Student in an Organized Health Care Education/Training Program; PCP Internal Medicine
DX: R10.13 Epigastric pain (principal); J44.9 Chronic obstructive pulmonary disease, unspecified; Z87.891 Personal history of nicotine dependence
CPT/HCPCS: 93005; 99283; 93010

== ENCOUNTER 2018-11-24 19:40 | Emergency (ER) | payer MEDICAID, SELFPAY ==
[2018-11-24 19:49] VITALS: BP 132/86; PULSE 80; RESP 22; TEMP 36.7; O2SAT 97
[2018-11-24 19:52] VITALS: RESP 22
--- NOTE | 2018-11-24 20:07 | ED.GENADUL_ITS ---
Discharge Plan Disposition Patient Disposition: HOME Condition: Good Discharge Details Chief Complaint: SOB Clinical Impression: Encounter for medical screening examination Primary Care Provider: Deborah Chow ED Provider: Daren Chiang Meds and New Rx's Prescriptions: Continued quetiapine [Seroquel] 50 mg tablet 50 mg PO QHS Qty: 90 RF: 0 Spiriva with HandiHaler 18 mcg capsule, w/inhalation device 1 cap Inhalation DAILY Qty: 90 RF: 0 docusate sodium [Stool Softener] 100 mg tablet 100 mg PO DAILY RF: 0 morphine 15 mg tablet 7.5 mg PO QDAY MDD 15 PRN (Reason: dyspnea) Qty: 4 RF: 0 prednisone 20 mg tablet 20 mg PO BID RF: 0 albuterol sulfate [ProAir HFA] 90 mcg/actuation HFA aerosol inhaler 2 puff Inhalation Q4H PRN PRN (Reason: Shortness Of Breath) Qty: 1 RF: 1 fluoxetine 20 mg tablet 20 mg PO DAILY Qty: 90 RF: 3 quetiapine [Seroquel] 25 mg tablet 25 mg PO BID Qty: 20 RF: 0 lorazepam 1 mg tablet 1 mg PO Q6H PRN (Reason: anxiety) RF: 0 hydroxyzine HCl 25 mg tablet 25 mg PO TID PRNRF: 0 [employer] Advantage 1 EACH spacer 1 ea Miscellaneous DIRECTED RF: 0 albuterol sulfate 2.5 MG/3 ML solution for nebulization 2.5 mg Inhalation Q4H PRN PRN (Reason: Shortness Of Breath) 30 Days RF: 0 guaifenesin [Mucus Relief] 400 mg Tablet 400 mg PO Q4H PRNRF: 0 pantoprazole 40 mg tablet,delayed release (DR/EC) 40 mg PO DAILY Qty: 90 RF: 3 Symbicort 10.2 GM HFA aerosol inhaler 10.2 gm Inhalation BID Qty: 3 RF: 3 diphenhydramine HCl [Benadryl] 25 MG capsule 25 mg PO Q6H PRNRF: 0 meclizine 25 mg tablet 25 mg PO TID PRN (Reason: dizziness) Qty: 20 RF: 0 ondansetron 4 mg tablet,disintegrating 4 mg PO TID-QID PRN (Reason: nausea and vomiting) Qty: 30 RF: 0 Discharge Instructions Additional Instructions: Please continue your pulmonary rehab, therapy, follow-up with primary care. Continue your medications. Your vital signs and exam today were normal. Referrals: Deborah Chow MD [Primary Care Provider] - Discharge Data Discharge Date/Time-TO BE ENTERED AT DEPARTURE: 11/24/18 20:25 Medical Decision Making Patient presenting stating that he cannot catch his breath. 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 He participates in cardiopulmonary rehab. He has normal vital signs with normal oxygen saturation. His lungs are clear to auscultation. He is in no type of respiratory distress. This is likely all continued anxiety. There are no new or acute complaints or changes. Patient is deemed safe for discharge to follow-up with his community resources and PCP. HPI General Mode of arrival: ambulatory . Date/Time Provider Initiated Documentation: 11/24/18 20:05 . Limitations to Documentation: no limitations . Information obtained by: patient, RN notes reviewed and old records reviewed . HPI Narrative: Patient presents to ED once again with complaint of inability to catch his breath. Patient reports that he has been baling hay all morning. He had no issues doing that. This afternoon he feels like he cannot catch his breath. He reports that he did use his inhaler and he did take his anxiety pills. He continues to present to the ED on an almost daily basis. He has been enrolled in cardiopulmonary rehab. He is followed by care management, primary care, community care. He has no new complaints. He denies fever. Denies chest pain. Continues to complain of chronic epigastric discomfort. Continues to complain of feeling that he cannot catch his breath. Related Data Home Medications Medication Instructions Recorded [facility]/17 11/21/18 albuterol sulfate 2.5 mg INHALATION Q4H PRN PRN 30 10/15/17 11/21/18 Days ml albuterol sulfate HFA 90 2 puff INHALATION Q4H PRN PRN #1 07/02/18 11/21/18 mcg/actuation aerosol inhaler inh guaifenesin [Mucus Relief] 400 mg PO Q4H PRN 09/09/18 11/21/18 Symbicort 10.2 gm INHALATION BID #3 inhaler 09/21/18 11/21/18 pantoprazole 40 mg PO DAILY #90 tab 09/21/18 11/21/18 quetiapine 50 mg tablet 50 mg PO QHS #90 tab 09/26/18 11/21/18 tiotropium bromide 18 mcg capsule 1 cap INHALATION DAILY #90 inh 09/26/18 11/21/18 with inhalation device fluoxetine 20 mg tablet 20 mg PO DAILY #90 tab-cap 10/02/18 11/21/18 quetiapine 25 mg tablet 25 mg PO BID #20 tab 10/17/18 11/21/18 meclizine 25 mg PO TID PRN #20 tab 10/23/18 11/21/18 docusate sodium 100 mg tablet 100 mg PO DAILY 10/30/18 11/21/18 diphenhydramine HCl [Benadryl] 25 mg PO Q6H PRN 11/01/18 11/21/18 lorazepam 1 mg tablet 1 mg PO Q6H PRN tab 11/09/18 11/21/18 ondansetron 4 mg PO TID-QID PRN #30 tab 11/12/18 11/21/18 morphine 15 mg immediate release 7.5 mg PO QDAY PRN #4 tab MDD 15 11/13/18 11/21/18 tablet hydroxyzine HCl 25 mg tablet 25 mg PO TID PRN tab 11/20/18 11/21/18 prednisone 20 mg tablet 20 mg PO BID 11/20/18 11/21/18 Previous Rx's Medication Instructions Recorded [facility] Advantage kit 10/15/17 albuterol sulfate 2.5 mg INHALATION Q4H PRN PRN 30 10/15/17 Days ml albuterol sulfate HFA 90 2 puff INHALATION Q4H PRN PRN #1 07/02/18 mcg/actuation aerosol inhaler inh Symbicort 10.2 gm INHALATION BID #3 inhaler 09/21/18 pantoprazole 40 mg PO DAILY #90 tab 09/21/18 quetiapine 50 mg tablet 50 mg PO QHS #90 tab 09/26/18 tiotropium bromide 18 mcg capsule 1 cap INHALATION DAILY #90 inh 09/26/18 with inhalation device fluoxetine 20 mg tablet 20 mg PO DAILY #90 tab-cap 10/02/18 quetiapine 25 mg tablet 25 mg PO BID #20 tab 10/17/18 meclizine 25 mg PO TID PRN #20 tab 10/23/18 ondansetron 4 mg PO TID-QID PRN #30 tab 11/12/18 morphine 15 mg immediate release 7.5 mg PO QDAY PRN #4 tab MDD 15 11/13/18 tablet Allergies Allergy/AdvReac Type Severity Reaction Status Date / Time No Known Allergies Allergy Verified 11/21/18 18:31 General Stated Complaint: SOB FLASH: 3 Review of Systems Constitutional Denies chills and Denies fever(s) Cardiovascular Denies chest pain, Denies diaphoresis, Denies syncope and Reports dyspnea Respiratory Denies cough and Reports dyspnea Gastrointestinal Reports abdominal pain (epigastric), Denies nausea and Denies vomiting Neurologic Denies syncope Psychiatric Reports anxiety and Denies depression [facility] Medical History COPD (chronic obstructive pulmonary disease) (Chronic) Adjustment disorder with anxiety (Chronic) Alcohol abuse (Chronic) Anxiety (Chronic) Dyspepsia (Chronic) Malignant neoplasm of right lung (Chronic) Tubular adenoma of colon (Inactive) Surgical History Status post cataract extraction and insertion of intraocular lens of left eye (Chronic 11/05/18) History of lung biopsy (Resolved) History of surgery on upper extremity (Resolved) colonoscopy (Inactive 01/19/15) Social History Smoking/Tobacco Use Status: Former Tobacco Use Quit Date: 06/05/98 Tobacco: How many years used: 30 Alcohol Intake: former Drug use: Never 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 Adopted: No Foster care: No Household members: family Housing: house Number of Children: 0 Communication Needs: None current occupation: not working Current gender identity: male What type of physical activity do you participate in: none and other Details: started lifting weights Frequency: daily Seatbelt use: always Drive 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 Exam Narrative Exam Narrative: Vitals: Normal with normal oxygen saturations. Const: WDWN male in NAD. HEENT: NC/AT. Normal facial exam. Eyes: Normal conjunctiva and sclera. Neck: Supple. Trachea midline. Lungs: Normal respiratory effort. Lungs are clear. Cor: RRR without murmur/gallop. Good radial pulses. Neuro: A+O x 3. CN grossly in tact. Good strength and no focal deficit. Ext: No C/C/E. No deformity or tenderness. Skin: Warm and dry without rash. Course Vital Signs Temperature 98.1 F 11/24/18 19:49 Pulse 80 11/24/18 19:49 Respiratory Rate 22 11/24/18 19:49 Blood Pressure 132/86 11/24/18 19:49 Pulse Oximetry 97 11/24/18 19:49 Temperature 98.1 F 11/24/18 19:49 Temperature Source Temporal Artery Scan 11/24/18 19:49 Pulse 80 11/24/18 19:49 Respiratory Rate 22 11/24/18 19:52 Respiratory Effort Short of Breath 11/24/18 19:52 Respiratory Depth Normal 11/24/18 19:52 Respiratory Pattern Normal 11/24/18 19:52 Blood Pressure 132/86 11/24/18 19:49 Pulse Oximetry 97 11/24/18 19:49 Oxygen Delivery Method Room Air 11/24/18 19:49 Oxygen Flow Rate 0 11/24/18 19:49
== END 2018-11-24 20:25 | disposition home or self-care (01) ==
PROVIDERS: Emergency Provider Emergency Medicine; PCP Internal Medicine
DX: R06.02 Shortness of breath (principal); F41.9 Anxiety disorder, unspecified
CPT/HCPCS: 99282

== ENCOUNTER 2018-11-25 20:13 | Emergency (ER) | payer MEDICAID, SELFPAY ==
[2018-11-25 20:20] VITALS: BP 138/85; PULSE 87; RESP 18; TEMP 36.3; O2SAT 95
--- NOTE | 2018-11-25 20:51 | W.ED.GENAD ---
Discharge Plan Disposition Patient Disposition: HOME Condition: Stable Discharge Details Chief Complaint: Abd Prob Clinical Impression: Chronic epigastric pain Primary Care Provider: Deborah Chow ED Provider: Mj Chen Home Meds and New Rx's Prescriptions: No Action quetiapine [Seroquel] 50 mg tablet 50 mg PO QHS Qty: 90 RF: 0 Spiriva with HandiHaler 18 mcg capsule, w/inhalation device 1 cap Inhalation DAILY Qty: 90 RF: 0 docusate sodium [Stool Softener] 100 mg tablet 100 mg PO DAILY RF: 0 morphine 15 mg tablet 7.5 mg PO QDAY MDD 15 PRN (Reason: dyspnea) Qty: 4 RF: 0 prednisone 20 mg tablet 20 mg PO BID RF: 0 albuterol sulfate [ProAir HFA] 90 mcg/actuation HFA aerosol inhaler 2 puff Inhalation Q4H PRN PRN (Reason: Shortness Of Breath) Qty: 1 RF: 1 fluoxetine 20 mg tablet 20 mg PO DAILY Qty: 90 RF: 3 quetiapine [Seroquel] 25 mg tablet 25 mg PO BID Qty: 20 RF: 0 lorazepam 1 mg tablet 1 mg PO Q6H PRN (Reason: anxiety) RF: 0 hydroxyzine HCl 25 mg tablet 25 mg PO TID PRNRF: 0 OptiChamber Advantage 1 EACH spacer 1 ea Miscellaneous DIRECTED RF: 0 albuterol sulfate 2.5 MG/3 ML solution for nebulization 2.5 mg Inhalation Q4H PRN PRN (Reason: Shortness Of Breath) 30 Days RF: 0 guaifenesin [Mucus Relief] 400 mg Tablet 400 mg PO Q4H PRNRF: 0 pantoprazole 40 mg tablet,delayed release (DR/EC) 40 mg PO DAILY Qty: 90 RF: 3 Symbicort 10.2 GM HFA aerosol inhaler 10.2 gm Inhalation BID Qty: 3 RF: 3 diphenhydramine HCl [Benadryl] 25 MG capsule 25 mg PO Q6H PRNRF: 0 meclizine 25 mg tablet 25 mg PO TID PRN (Reason: dizziness) Qty: 20 RF: 0 ondansetron 4 mg tablet,disintegrating 4 mg PO TID-QID PRN (Reason: nausea and vomiting) Qty: 30 RF: 0 Discharge Instructions Additional Instructions: try buying mylanta and take it as directed on the packaging follow up with your primary care provider in 1-2 weeks Medical Decision Making PT states that around 5pm he had some epigastric burning that resolved without intervention after 5 minutes. Denies vomit, chest pain/pressure, pain with exertion or other symptoms of acs. Has no pain now so doubt entities such as cholecystitis, pancreatitis, or other surgical pathology given fleeting pain. HAd CT done in September without AAA and do not feel any labs or imaging indicated given pain resolved and he has no tenderness on exam and abd is soft. Suspect gastritis. Will d/c home and have him f/u with pcp and advised to return if worsening Differential Diagnosis gastritis, chronic pain, pancreatitis HPI General Mode of arrival: ambulatory. Date/Time Provider Initiated Documentation: 11/25/18 20:21. Limitations to Documentation: no limitations. Information obtained by: patient. History of Present Illness 63 year old M presents to the emergency department with the chief complaint of epigastric pain, described as mild, Quality is described as burning and aching, and is localized to the abdomen. Patient reports no radiation. Patient started experiencing this hour(s) (2) and it has been now resolved. Patient notes no other symptoms.. Patient did receive the following treatments prior to arrival, none Related Data Home Medications Medication Instructions Recorded Confirmed Frugalo Advantage kit 10/15/17 11/21/18 albuterol sulfate 2.5 mg INHALATION Q4H PRN PRN 30 10/15/17 11/21/18 Days ml albuterol sulfate HFA 90 2 puff INHALATION Q4H PRN PRN #1 07/02/18 11/21/18 mcg/actuation aerosol inhaler inh guaifenesin [Mucus Relief] 400 mg PO Q4H PRN 09/09/18 11/21/18 Symbicort 10.2 gm INHALATION BID #3 inhaler 09/21/18 11/21/18 pantoprazole 40 mg PO DAILY #90 tab 09/21/18 11/21/18 quetiapine 50 mg tablet 50 mg PO QHS #90 tab 09/26/18 11/21/18 tiotropium bromide 18 mcg capsule 1 cap INHALATION DAILY #90 inh 09/26/18 11/21/18 with inhalation device fluoxetine 20 mg tablet 20 mg PO DAILY #90 tab-cap 10/02/18 11/21/18 quetiapine 25 mg tablet 25 mg PO BID #20 tab 10/17/18 11/21/18 meclizine 25 mg PO TID PRN #20 tab 10/23/18 11/21/18 docusate sodium 100 mg tablet 100 mg PO DAILY 10/30/18 11/21/18 diphenhydramine HCl [Benadryl] 25 mg PO Q6H PRN 11/01/18 11/21/18 lorazepam 1 mg tablet 1 mg PO Q6H PRN tab 11/09/18 11/21/18 ondansetron 4 mg PO TID-QID PRN #30 tab 11/12/18 11/21/18 morphine 15 mg immediate release 7.5 mg PO QDAY PRN #4 tab MDD 15 11/13/18 11/21/18 tablet hydroxyzine HCl 25 mg tablet 25 mg PO TID PRN tab 11/20/18 11/21/18 prednisone 20 mg tablet 20 mg PO BID 11/20/18 11/21/18 Previous Rx's Medication Instructions [facility]ed [facility] 10/15/17 albuterol sulfate 2.5 mg INHALATION Q4H PRN PRN 30 10/15/17 Days ml albuterol sulfate HFA 90 2 puff INHALATION Q4H PRN PRN #1 07/02/18 mcg/actuation aerosol inhaler inh Symbicort 10.2 gm INHALATION BID #3 inhaler 09/21/18 pantoprazole 40 mg PO DAILY #90 tab 09/21/18 quetiapine 50 mg tablet 50 mg PO QHS #90 tab 09/26/18 tiotropium bromide 18 mcg capsule 1 cap INHALATION DAILY #90 inh 09/26/18 with inhalation device fluoxetine 20 mg tablet 20 mg PO DAILY #90 tab-cap 10/02/18 quetiapine 25 mg tablet 25 mg PO BID #20 tab 10/17/18 meclizine 25 mg PO TID PRN #20 tab 10/23/18 ondansetron 4 mg PO TID-QID PRN #30 tab 11/12/18 morphine 15 mg immediate release 7.5 mg PO QDAY PRN #4 tab MDD 15 11/13/18 tablet Allergies Allergy/AdvReac Type Severity Reaction Status Date / Time No Known Allergies Allergy Verified 11/25/18 20:22 General Stated Complaint: Abd Prob FLASH: 4 Review of Systems Review of Systems All systems reviewed & are unremarkable except as noted in HPI and below Constitutional Denies chills, Denies fever(s) and Denies weakness Cardiovascular Denies chest pain and Denies dyspnea Respiratory Denies cough and Denies dyspnea Gastrointestinal Denies abdominal pain, Denies nausea and Denies vomiting Integumentary/Breasts Denies rash Neurologic Denies weakness [facility] Social History Smoking/Tobacco Use Status: Former Tobacco Use Quit Date: 06/05/98 Tobacco: How many years used: 30 Alcohol Intake: former Drug use: Never 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 Adopted: No Foster care: No Household members: family Housing: house Number of Children: 0 Communication Needs: None current occupation: not working Current gender identity: male What type of physical activity do you participate in: none and other Details: started lifting weights Frequency: daily Seatbelt use: always Drive intox or ride w/intox funeral car 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 Exam Const General: no acute distress Orientation: alert HENMT Head: normal to inspection Ears: external ears normal General nose exam: external nose normal Mouth: moist mucous membranes Eyes General: appearance normal, both eyes and all related structures Neck Neck: normal visual inspection Resp Effort & Inspection: normal respiratory effort and able to speak in complete sentences Cardio Rate: regular rate GI Inspection: normal to inspection Palpation: soft Skin General skin exam: no rashes or lesions noted Neuro General: alert and oriented x3 Extrem General: normal to inspection Psych Mental Status: mental status grossly normal Course Vital Signs Temperature 36.3 C L 11/25/18 20:20 Pulse 87 11/25/18 20:20 Respiratory Rate 18 11/25/18 20:20 Blood Pressure 138/85 11/25/18 20:20 Pulse Oximetry 95 11/25/18 20:20 Temperature 36.3 C L 11/25/18 20:20 Temperature Source Skin 11/25/18 20:20 Pulse 87 11/25/18 20:20 Respiratory Rate 18 11/25/18 20:20 Respiratory Effort Non-Labored 11/25/18 20:22 Blood Pressure 138/85 11/25/18 20:20 Blood Pressure Position Supine 11/25/18 20:20 Pulse Oximetry 95 11/25/18 20:20 Oxygen Delivery Method Room Air 11/25/18 20:20 Oxygen Flow Rate 0 11/25/18 20:20 Pain Level 7 11/25/18 20:20
[2018-11-25] MEDS: Mylanta Suspension 30 ML CUP PO (20:53)
--- NOTE | 2018-11-25 20:55 | ED.GENADUL_ITS ---
Discharge Plan Disposition Patient Disposition: HOME Condition: Stable Discharge Details Chief Complaint: Abd Prob Clinical Impression: Chronic epigastric pain Primary Care Provider: Deborah Chow ED Provider: Mj Chen Home Meds and New Rx's Prescriptions: No Action quetiapine [Seroquel] 50 mg tablet 50 mg PO QHS Qty: 90 RF: 0 Spiriva with HandiHaler 18 mcg capsule, w/inhalation device 1 cap Inhalation DAILY Qty: 90 RF: 0 docusate sodium [Stool Softener] 100 mg tablet 100 mg PO DAILY RF: 0 morphine 15 mg tablet 7.5 mg PO QDAY MDD 15 PRN (Reason: dyspnea) Qty: 4 RF: 0 prednisone 20 mg tablet 20 mg PO BID RF: 0 albuterol sulfate [ProAir HFA] 90 mcg/actuation HFA aerosol inhaler 2 puff Inhalation Q4H PRN PRN (Reason: Shortness Of Breath) Qty: 1 RF: 1 fluoxetine 20 mg tablet 20 mg PO DAILY Qty: 90 RF: 3 quetiapine [Seroquel] 25 mg tablet 25 mg PO BID Qty: 20 RF: 0 lorazepam 1 mg tablet 1 mg PO Q6H PRN (Reason: anxiety) RF: 0 hydroxyzine HCl 25 mg tablet 25 mg PO TID PRNRF: 0 OptiChamber Advantage 1 EACH spacer 1 ea Miscellaneous DIRECTED RF: 0 albuterol sulfate 2.5 MG/3 ML solution for nebulization 2.5 mg Inhalation Q4H PRN PRN (Reason: Shortness Of Breath) 30 Days RF: 0 guaifenesin [Mucus Relief] 400 mg Tablet 400 mg PO Q4H PRNRF: 0 pantoprazole 40 mg tablet,delayed release (DR/EC) 40 mg PO DAILY Qty: 90 RF: 3 Symbicort 10.2 GM HFA aerosol inhaler 10.2 gm Inhalation BID Qty: 3 RF: 3 diphenhydramine HCl [Benadryl] 25 MG capsule 25 mg PO Q6H PRNRF: 0 meclizine 25 mg tablet 25 mg PO TID PRN (Reason: dizziness) Qty: 20 RF: 0 ondansetron 4 mg tablet,disintegrating 4 mg PO TID-QID PRN (Reason: nausea and vomiting) Qty: 30 RF: 0 Discharge Instructions Additional Instructions: try buying mylanta and take it as directed on the packaging follow up with your primary care provider in 1-2 weeks Medical Decision Making PT states that around 5pm he had some epigastric burning that resolved without intervention after 5 minutes. Denies vomit, chest pain/pressure, pain with exertion or other symptoms of acs. Has no pain now so doubt entities such as cholecystitis, pancreatitis, or other surgical pathology given fleeting pain. HAd CT done in September without AAA and do not feel any labs or imaging indicated given pain resolved and he has no tenderness on exam and abd is soft. Suspect gastritis. Will d/c home and have him f/u with pcp and advised to return if worsening Differential Diagnosis gastritis, chronic pain, pancreatitis HPI General Mode of arrival: ambulatory . Date/Time Provider Initiated Documentation: 11/25/18 20:21 . Limitations to Documentation: no limitations . Information obtained by: patient . History of Present Illness 63 year old M presents to the emergency department with the chief complaint of epigastric pain, described as mild, Quality is described as burning and aching, and is localized to the abdomen. Patient reports no radiation. Patient started experiencing this hour(s) (2) and it has been now resolved. Patient notes no other symptoms.. Patient did receive the following treatments prior to arrival, none Related Data Home Medications Medication Instructions Recorded Confirmed Vertigo Advantage kit 10/15/17 11/21/18 albuterol sulfate 2.5 mg INHALATION Q4H PRN PRN 30 10/15/17 11/21/18 Days ml albuterol sulfate HFA 90 2 puff INHALATION Q4H PRN PRN #1 07/02/18 11/21/18 mcg/actuation aerosol inhaler inh guaifenesin [Mucus Relief] 400 mg PO Q4H PRN 09/09/18 11/21/18 Symbicort 10.2 gm INHALATION BID #3 inhaler 09/21/18 11/21/18 pantoprazole 40 mg PO DAILY #90 tab 09/21/18 11/21/18 quetiapine 50 mg tablet 50 mg PO QHS #90 tab 09/26/18 11/21/18 tiotropium bromide 18 mcg capsule 1 cap INHALATION DAILY #90 inh 09/26/18 11/21/18 with inhalation device fluoxetine 20 mg tablet 20 mg PO DAILY #90 tab-cap 10/02/18 11/21/18 quetiapine 25 mg tablet 25 mg PO BID #20 tab 10/17/18 11/21/18 meclizine 25 mg PO TID PRN #20 tab 10/23/18 11/21/18 docusate sodium 100 mg tablet 100 mg PO DAILY 10/30/18 11/21/18 diphenhydramine HCl [Benadryl] 25 mg PO Q6H PRN 11/01/18 11/21/18 lorazepam 1 mg tablet 1 mg PO Q6H PRN tab 11/09/18 11/21/18 ondansetron 4 mg PO TID-QID PRN #30 tab 11/12/18 11/21/18 morphine 15 mg immediate release 7.5 mg PO QDAY PRN #4 tab MDD 15 11/13/18 11/21/18 tablet hydroxyzine HCl 25 mg tablet 25 mg PO TID PRN tab 11/20/18 11/21/18 prednisone 20 mg tablet 20 mg PO BID 11/20/18 11/21/18 Previous Rx's Medication Instructions [facility]ed [facility] 10/15/17 albuterol sulfate 2.5 mg INHALATION Q4H PRN PRN 30 10/15/17 Days ml albuterol sulfate HFA 90 2 puff INHALATION Q4H PRN PRN #1 07/02/18 mcg/actuation aerosol inhaler inh Symbicort 10.2 gm INHALATION BID #3 inhaler 09/21/18 pantoprazole 40 mg PO DAILY #90 tab 09/21/18 quetiapine 50 mg tablet 50 mg PO QHS #90 tab 09/26/18 tiotropium bromide 18 mcg capsule 1 cap INHALATION DAILY #90 inh 09/26/18 with inhalation device fluoxetine 20 mg tablet 20 mg PO DAILY #90 tab-cap 10/02/18 quetiapine 25 mg tablet 25 mg PO BID #20 tab 10/17/18 meclizine 25 mg PO TID PRN #20 tab 10/23/18 ondansetron 4 mg PO TID-QID PRN #30 tab 11/12/18 morphine 15 mg immediate release 7.5 mg PO QDAY PRN #4 tab MDD 15 11/13/18 tablet Allergies Allergy/AdvReac Type Severity Reaction Status Date / Time No Known Allergies Allergy Verified 11/25/18 20:22 General Stated Complaint: Abd Prob FLASH: 4 Review of Systems Review of Systems All systems reviewed & are unremarkable except as noted in HPI and below Constitutional Denies chills, Denies fever(s) and Denies weakness Cardiovascular Denies chest pain and Denies dyspnea Respiratory Denies cough and Denies dyspnea Gastrointestinal Denies abdominal pain, Denies nausea and Denies vomiting Integumentary/Breasts Denies rash Neurologic Denies weakness [facility] Social History Smoking/Tobacco Use Status: Former Tobacco Use Quit Date: 06/05/98 Tobacco: How many years used: 30 Alcohol Intake: former Drug use: Never 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 Adopted: No Foster care: No Household members: family Housing: house Number of Children: 0 Communication Needs: None current occupation: not working Current gender identity: male What type of physical activity do you participate in: none and other Details: started lifting weights Frequency: daily Seatbelt use: always Drive intox or ride w/intox 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 Exam Const General: no acute distress Orientation: alert HENMT Head: normal to inspection Ears: external ears normal General nose exam: external nose normal Mouth: moist mucous membranes Eyes General: appearance normal, both eyes and all related structures Neck Neck: normal visual inspection Resp Effort & Inspection: normal respiratory effort and able to speak in complete sentences Cardio Rate: regular rate GI Inspection: normal to inspection Palpation: soft Skin General skin exam: no rashes or lesions noted Neuro General: alert and oriented x3 Extrem General: normal to inspection Psych Mental Status: mental status grossly normal Course Vital Signs Temperature 36.3 C L 11/25/18 20:20 Pulse 87 11/25/18 20:20 Respiratory Rate 18 11/25/18 20:20 Blood Pressure 138/85 11/25/18 20:20 Pulse Oximetry 95 11/25/18 20:20 Temperature 36.3 C L 11/25/18 20:20 Temperature Source Skin 11/25/18 20:20 Pulse 87 11/25/18 20:20 Respiratory Rate 18 11/25/18 20:20 Respiratory Effort Non-Labored 11/25/18 20:22 Blood Pressure 138/85 11/25/18 20:20 Blood Pressure Position Supine 11/25/18 20:20 Pulse Oximetry 95 11/25/18 20:20 Oxygen Delivery Method Room Air 11/25/18 20:20 Oxygen Flow Rate 0 11/25/18 20:20 Pain Level 7 11/25/18 20:20
== END 2018-11-25 20:55 | disposition home or self-care (01) ==
PROVIDERS: Emergency Provider Emergency Medicine; PCP Internal Medicine
DX: G89.29 Other chronic pain (principal); R10.13 Epigastric pain; F41.9 Anxiety disorder, unspecified
CPT/HCPCS: 99282

== ENCOUNTER 2018-11-26 18:26 | Emergency (ER) | payer MEDICAID, SELFPAY ==
[2018-11-26 18:30] VITALS: BP 137/90; PULSE 87; RESP 18; TEMP 37.1; O2SAT 97
--- NOTE | 2018-11-26 18:52 | ED.GENADUL_ITS ---
Discharge Plan Disposition Patient Disposition: HOME Condition: Stable Discharge Details Chief Complaint: SOB Clinical Impression: Chronic epigastric pain Primary Care Provider: Deborah Chow ED Provider: Alison Resendiz Home Meds and New Rx's Prescriptions: Continued quetiapine [Seroquel] 50 mg tablet 50 mg PO QHS Qty: 90 RF: 0 Spiriva with HandiHaler 18 mcg capsule, w/inhalation device 1 cap Inhalation DAILY Qty: 90 RF: 0 docusate sodium [Stool Softener] 100 mg tablet 100 mg PO DAILY RF: 0 morphine 15 mg tablet 7.5 mg PO QDAY MDD 15 PRN (Reason: dyspnea) Qty: 4 RF: 0 prednisone 20 mg tablet 20 mg PO BID RF: 0 albuterol sulfate [ProAir HFA] 90 mcg/actuation HFA aerosol inhaler 2 puff Inhalation Q4H PRN PRN (Reason: Shortness Of Breath) Qty: 1 RF: 1 fluoxetine 20 mg tablet 20 mg PO DAILY Qty: 90 RF: 3 quetiapine [Seroquel] 25 mg tablet 25 mg PO BID Qty: 20 RF: 0 lorazepam 1 mg tablet 1 mg PO Q6H PRN (Reason: anxiety) RF: 0 hydroxyzine HCl 25 mg tablet 25 mg PO TID PRNRF: 0 OptiChamber Advantage 1 EACH spacer 1 ea Miscellaneous DIRECTED RF: 0 albuterol sulfate 2.5 MG/3 ML solution for nebulization 2.5 mg Inhalation Q4H PRN PRN (Reason: Shortness Of Breath) 30 Days RF: 0 guaifenesin [Mucus Relief] 400 mg Tablet 400 mg PO Q4H PRNRF: 0 pantoprazole 40 mg tablet,delayed release (DR/EC) 40 mg PO DAILY Qty: 90 RF: 3 Symbicort 10.2 GM HFA aerosol inhaler 10.2 gm Inhalation BID Qty: 3 RF: 3 diphenhydramine HCl [Benadryl] 25 MG capsule 25 mg PO Q6H PRNRF: 0 meclizine 25 mg tablet 25 mg PO TID PRN (Reason: dizziness) Qty: 20 RF: 0 ondansetron 4 mg tablet,disintegrating 4 mg PO TID-QID PRN (Reason: nausea and vomiting) Qty: 30 RF: 0 Discharge Instructions Instructions: Chronic Pain (ED) Additional Instructions: Follow-up with your primary care doctor for reevaluation. Follow-up with [facility] daily as directed. Call [facility] as directed and needed. Return to the emergency department if you develop any acute worsening or new concerning symptoms. Discharge Data Discharge Physician: Alison Resendiz Medical Decision Making 63-year-old male with a history of anxiety, pancreatitis, former alcohol abuse, and previously diagnosed lung cancer who presents with his chronic epigastric pain. He has been seen here almost daily for the past couple months. Patient had screening labs done 1 week ago which were within normal limits. He had a chest x-ray last month which was unchanged from previous. He had a CT chest done in August which did not know any evidence of dissection or aneurysm. He states all of his symptoms are consistent with his usual daily epigastric pain. He denies any fever, chest pain or shortness of breath. His vitals are within normal limits. He appears nontoxic. His abdomen is soft and nontender. As patient's symptoms are not unchanged compared to his chronic daily pain, I do not see an indication for repeat labs or imaging at this time patient is agreeable There is a care management meeting for patient today regarding further plan to help patient with his anxiety and to possibly avoid daily emergency room visits. He has been arranged to attend [facility] daily. There is also a plan for him to contact [facility] over the phone as needed with any questions or concerns. Apparently he called her twice today but she did not respond quickly enough to him and he became concerned and came to the emergency department. HPI General Mode of arrival: ambulatory . Date/Time Provider Initiated Documentation: 11/26/18 18:29 . Limitations to Documentation: no limitations . Information obtained by: patient . HPI Narrative: Patient is a 63-year-old male with a history of COPD, anxiety, former alcohol abuse, previously diagnosed lung cancer who presents with his chronic daily epigastric pain. Patient has been seen here almost daily for the past 2 months. He states his pain is no different than his usual daily pain. He denies any complaint of fever, cough, chest pain or shortness of breath. Patient saw his primary care doctor today in the office. There was a care management meeting with patient regarding plan for further management of his anxiety and chronic medical problems. Plan is for patient to go to [facility] daily and to call [facility] with any questions or concerns. Care management reported that patient called Mela Degroot but she did not respond back quickly enough and he became nervous and came to the emergency department. Related Data Home Medications Medication Instructions Recorded Confirmed [employer] Advantage kit 10/15/17 11/26/18 albuterol sulfate 2.5 mg INHALATION Q4H PRN PRN 30 10/15/17 11/26/18 Days ml albuterol sulfate HFA 90 2 puff INHALATION Q4H PRN PRN #1 07/02/18 11/26/18 mcg/actuation aerosol inhaler inh guaifenesin [Mucus Relief] 400 mg PO Q4H PRN 09/09/18 11/26/18 Symbicort 10.2 gm INHALATION BID #3 inhaler 09/21/18 11/26/18 pantoprazole 40 mg PO DAILY #90 tab 09/21/18 11/26/18 quetiapine 50 mg tablet 50 mg PO QHS #90 tab 09/26/18 11/26/18 tiotropium bromide 18 mcg capsule 1 cap INHALATION DAILY #90 inh 09/26/18 with inhalation device fluoxetine 20 mg tablet 20 mg PO DAILY #90 tab-cap 10/02/18 11/26/18 quetiapine 25 mg tablet 25 mg PO BID #20 tab 10/17/18 11/26/18 meclizine 25 mg PO TID PRN #20 tab 10/23/18 11/26/18 docusate sodium 100 mg tablet 100 mg PO DAILY 10/30/18 11/26/18 diphenhydramine HCl [Benadryl] 25 mg PO Q6H PRN 11/01/18 11/26/18 lorazepam 1 mg tablet 1 mg PO Q6H PRN tab 11/09/18 11/26/18 ondansetron 4 mg PO TID-QID PRN #30 tab 11/12/18 11/26/18 morphine 15 mg immediate release 7.5 mg PO QDAY PRN #4 tab MDD 15 11/13/18 11/26/18 tablet hydroxyzine HCl 25 mg tablet 25 mg PO TID PRN tab 11/20/18 11/26/18 prednisone 20 mg tablet 20 mg PO BID 11/20/18 11/26/18 Previous Rx's Medication Instructions Recorded [facility] kit 10/15/17 albuterol sulfate 2.5 mg INHALATION Q4H PRN PRN 30 10/15/17 Days ml albuterol sulfate HFA 90 2 puff INHALATION Q4H PRN PRN #1 07/02/18 mcg/actuation aerosol inhaler inh Symbicort 10.2 gm INHALATION BID #3 inhaler 09/21/18 pantoprazole 40 mg PO DAILY #90 tab 09/21/18 quetiapine 50 mg tablet 50 mg PO QHS #90 tab 09/26/18 tiotropium bromide 18 mcg capsule 1 cap INHALATION DAILY #90 inh 09/26/18 with inhalation device fluoxetine 20 mg tablet 20 mg PO DAILY #90 tab-cap 10/02/18 quetiapine 25 mg tablet 25 mg PO BID #20 tab 10/17/18 meclizine 25 mg PO TID PRN #20 tab 10/23/18 ondansetron 4 mg PO TID-QID PRN #30 tab 11/12/18 morphine 15 mg immediate release 7.5 mg PO QDAY PRN #4 tab MDD 15 11/13/18 tablet Allergies Allergy/AdvReac Type Severity Reaction Status Date / Time No Known Allergies Allergy Verified 11/26/18 18:34 General Stated Complaint: SOB FLASH: 4 Review of Systems Review of Systems All systems reviewed & are unremarkable except as noted in HPI and below Constitutional Reports as per HPI, Denies chills and Denies fever(s) Eyes Denies blurry vision ENT Denies dizziness, Denies sore throat and Denies throat swelling Cardiovascular Denies chest pain and Denies dyspnea Respiratory Denies cough and Denies dyspnea Gastrointestinal Reports abdominal pain, Denies diarrhea and Denies vomiting Genitourinary Denies hematuria and Denies dysuria Musculoskeletal Denies back pain and Denies numbness Integumentary/Breasts Denies lesions and Denies rash Neurologic Denies dizziness, Denies focal weakness and Denies numbness Allergic/Immunologic Denies throat swelling [facility] Medical History COPD (chronic obstructive pulmonary disease) (Chronic) Adjustment disorder with anxiety (Chronic) Alcohol abuse (Chronic) Anxiety (Chronic) Dyspepsia (Chronic) Malignant neoplasm of right lung (Chronic) Tubular adenoma of colon (Inactive) Surgical History Status post cataract extraction and insertion of intraocular lens of left eye (Chronic 11/05/18) History of lung biopsy (Resolved) History of surgery on upper extremity (Resolved) colonoscopy (Inactive 01/19/15) Social History Smoking/Tobacco Use Status: Former Tobacco Use Quit Date: 06/05/98 Tobacco: How many years used: 30 Alcohol Intake: former Drug use: Never 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 Adopted: No Foster care: No Household members: family Housing: house Number of Children: 0 Communication Needs: None current occupation: not working Current gender identity: male What type of physical activity do you participate in: none and other Details: started lifting weights Frequency: daily Seatbelt use: always Drive intox 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 Exam Const General: cooperative, healthy appearing and no acute distress HENMT Head: normal to inspection Face and sinus: normal facial exam Eyes General: appearance normal, both eyes and all related structures Pupils: PERRL EOM: EOM intact bilaterally Neck Neck: normal visual inspection and No submandibular swelling Lymphatic: no lymphadenopathy noted Chest Chest: normal inspection of the chest and no tenderness Resp Effort & Inspection: normal respiratory effort and able to speak in complete sentences Auscultation: clear to auscultation bilaterally Cardio Rate: regular rate Rhythm: regular rhythm GI Inspection: normal to inspection Palpation: soft, not firm, not rigid and nontender Auscultation: normal bowel sounds Skin General skin exam: no rashes or lesions noted Neuro General: alert, awake and oriented x3 Cognition: normal cognition Speech: speech normal Motor: muscle tone normal throughout Sensory Exam: no sensory deficits noted Extrem General: normal to inspection, full ROM, normal capillary refill, no calf tenderness bilaterally and no edema Psych Appearance: grossly normal Mental Status: mental status grossly normal Speech and Movement: speech and movement normal Affect: normal affect Course Vital Signs Temperature 98.8 F 11/26/18 18:30 Pulse 87 11/26/18 18:30 Respiratory Rate 18 11/26/18 18:30 Blood Pressure 137/90 11/26/18 18:30 Pulse Oximetry 97 11/26/18 18:30 Temperature 98.8 F 11/26/18 18:30 Temperature Source Skin 11/26/18 18:30 Pulse 87 11/26/18 18:30 Respiratory Rate 18 11/26/18 18:30 Respiratory Effort Splinting 11/26/18 18:34 Respiratory Depth Normal 11/26/18 18:34 Respiratory Pattern Normal 11/26/18 18:34 Blood Pressure 137/90 11/26/18 18:30 Pulse Oximetry 97 11/26/18 18:30 Pain Level 8 11/26/18 18:30
== END 2018-11-26 19:02 | disposition home or self-care (01) ==
PROVIDERS: Emergency Provider Physician Assistant; PCP Internal Medicine
DX: G89.29 Other chronic pain (principal); R10.13 Epigastric pain; F41.9 Anxiety disorder, unspecified; J44.9 Chronic obstructive pulmonary disease, unspecified
CPT/HCPCS: 99282

== ENCOUNTER 2018-11-28 19:37 | Emergency (ER) | payer MEDICAID, SELFPAY ==
[2018-11-28 19:47] VITALS: BP 130/90; PULSE 82; RESP 19; TEMP 36.6; O2SAT 96
--- NOTE | 2018-11-28 20:10 | W.ED.GENAD ---
Discharge Plan Disposition Patient Disposition: HOME Condition: Stable Discharge Details Chief Complaint: Abd Prob Clinical Impression: Chronic abdominal pain, Constipation Primary Care Provider: Deborah Chow ED Provider: Alison Resendiz Home Meds and New Rx's Prescriptions: Continued quetiapine [Seroquel] 50 mg tablet 50 mg PO QHS Qty: 90 RF: 0 Spiriva with HandiHaler 18 mcg capsule, w/inhalation device 1 cap Inhalation DAILY Qty: 90 RF: 0 docusate sodium [Stool Softener] 100 mg tablet 100 mg PO DAILY RF: 0 morphine 15 mg tablet 7.5 mg PO QDAY MDD 15 PRN (Reason: dyspnea) Qty: 4 RF: 0 prednisone 20 mg tablet 20 mg PO BID RF: 0 magnesium citrate solution 75 ml PO DAILY PRN (Reason: constipation) Qty: 296 RF: 1 albuterol sulfate [ProAir HFA] 90 mcg/actuation HFA aerosol inhaler 2 puff Inhalation Q4H PRN PRN (Reason: Shortness Of Breath) Qty: 1 RF: 1 fluoxetine 20 mg tablet 20 mg PO DAILY Qty: 90 RF: 3 quetiapine [Seroquel] 25 mg tablet 25 mg PO BID Qty: 20 RF: 0 lorazepam 1 mg tablet 1 mg PO Q6H PRN (Reason: anxiety) RF: 0 hydroxyzine HCl 25 mg tablet 25 mg PO TID PRNRF: 0 OptiChamber Advantage 1 EACH spacer 1 ea Miscellaneous DIRECTED RF: 0 albuterol sulfate 2.5 MG/3 ML solution for nebulization 2.5 mg Inhalation Q4H PRN PRN (Reason: Shortness Of Breath) 30 Days RF: 0 guaifenesin [Mucus Relief] 400 mg Tablet 400 mg PO Q4H PRNRF: 0 pantoprazole 40 mg tablet,delayed release (DR/EC) 40 mg PO DAILY Qty: 90 RF: 3 Symbicort 10.2 GM HFA aerosol inhaler 10.2 gm Inhalation BID Qty: 3 RF: 3 diphenhydramine HCl [Benadryl] 25 MG capsule 25 mg PO Q6H PRNRF: 0 meclizine 25 mg tablet 25 mg PO TID PRN (Reason: dizziness) Qty: 20 RF: 0 ondansetron 4 mg tablet,disintegrating 4 mg PO TID-QID PRN (Reason: nausea and vomiting) Qty: 30 RF: 0 Discharge Instructions Instructions: Constipation (ED), Chronic Pain (ED) Additional Instructions: Continue to use magnesium citrate as directed. If you have no relief of constipation with magnesium citrate, you can also try [id number] suppositories, enemas. Take MiraLAX and [id number] stool softeners as directed. Follow-up with your primary care doctor in 2 days for reevaluation. Return immediately to the emergency department if you develop any worsening or new concerning symptoms of fever, persistent vomiting or worsening abdominal pain. Discharge Data Discharge Physician: Alison Resendiz Medical Decision Making 63-year-old male with a history of COPD, anxiety, former alcohol abuse and previously diagnosed lung cancer with almost daily emergency department visits who presents with his chronic abdominal pain and a 3-day history of constipation. He saw his primary care doctor in the office today for evaluation and was sent home. He is hemodynamically stable. He appears in no acute distress. He is nontoxic. His abdomen is soft and nontender. Patient has no history of previous abdominal surgeries. As he has no fever, no complaint of vomiting, abdomen is nontender, soft and normal to inspection and pain is c/w his usual daily pain for several months, I do not see any indication for labs or imaging. He had a CT abdomen and pelvis in September 2018 which was unremarkable and he has had the same consistent daily pain since before that time. Recommend the patient continue magnesium citrate, can also add suppositories, stool softeners, enemas, and add fiber. He is instructed to follow-up with his primary care doctor within the next 1 to 2 days and to return here with any worsening symptoms of fever, vomiting, or worsening pain HPI General Mode of arrival: ambulatory. Date/Time Provider Initiated Documentation: 11/28/18 19:45. Limitations to Documentation: no limitations. Information obtained by: patient. HPI Narrative: Patient is a 63-year-old male with almost daily visits to the emergency department who presents with his usual daily chronic abdominal pain. He states the pain feels consistent with his usual daily sharp epigastric pain. Patient states his last bowel movement was 3 days ago. He states he has constipation from time to time. He denies any relief with magnesium citrate last night. He denies any fever, vomiting, chest pain or shortness of breath. Related Data Home Medications Medication Instructions Recorded [facility] 10/15/17 11/28/18 albuterol sulfate 2.5 mg INHALATION Q4H PRN PRN 30 10/15/17 11/28/18 Days ml albuterol sulfate HFA 90 2 puff INHALATION Q4H PRN PRN #1 07/02/18 11/28/18 mcg/actuation aerosol inhaler inh guaifenesin [Mucus Relief] 400 mg PO Q4H PRN 09/09/18 11/28/18 Symbicort 10.2 gm INHALATION BID #3 inhaler 09/21/18 11/28/18 pantoprazole 40 mg PO DAILY #90 tab 09/21/18 11/28/18 quetiapine 50 mg tablet 50 mg PO QHS #90 tab 09/26/18 11/28/18 tiotropium bromide 18 mcg capsule 1 cap INHALATION DAILY #90 inh 09/26/18 11/28/18 with inhalation device fluoxetine 20 mg tablet 20 mg PO DAILY #90 tab-cap 10/02/18 11/28/18 quetiapine 25 mg tablet 25 mg PO BID #20 tab 10/17/18 11/28/18 meclizine 25 mg PO TID PRN #20 tab 10/23/18 11/28/18 docusate sodium 100 mg tablet 100 mg PO DAILY 10/30/18 11/28/18 diphenhydramine HCl [Benadryl] 25 mg PO Q6H PRN 11/01/18 11/28/18 lorazepam 1 mg tablet 1 mg PO Q6H PRN tab 11/09/18 11/28/18 ondansetron 4 mg PO TID-QID PRN #30 tab 11/12/18 11/28/18 morphine 15 mg immediate release 7.5 mg PO QDAY PRN #4 tab MDD 15 11/13/18 11/28/18 tablet hydroxyzine HCl 25 mg tablet 25 mg PO TID PRN tab 11/20/18 11/28/18 prednisone 20 mg tablet 20 mg PO BID 11/20/18 11/28/18 magnesium citrate oral solution 75 ml PO DAILY PRN #296 ml 11/28/18 11/28/18 Previous Rx's Medication Instructions [facility] kit 10/15/17 albuterol sulfate 2.5 mg INHALATION Q4H PRN PRN 30 10/15/17 Days ml albuterol sulfate HFA 90 2 puff INHALATION Q4H PRN PRN #1 07/02/18 mcg/actuation aerosol inhaler inh Symbicort 10.2 gm INHALATION BID #3 inhaler 09/21/18 pantoprazole 40 mg PO DAILY #90 tab 09/21/18 quetiapine 50 mg tablet 50 mg PO QHS #90 tab 09/26/18 tiotropium bromide 18 mcg capsule 1 cap INHALATION DAILY #90 inh 09/26/18 with inhalation device fluoxetine 20 mg tablet 20 mg PO DAILY #90 tab-cap 10/02/18 quetiapine 25 mg tablet 25 mg PO BID #20 tab 10/17/18 meclizine 25 mg PO TID PRN #20 tab 10/23/18 ondansetron 4 mg PO TID-QID PRN #30 tab 11/12/18 morphine 15 mg immediate release 7.5 mg PO QDAY PRN #4 tab MDD 15 11/13/18 tablet magnesium citrate oral solution 75 ml PO DAILY PRN #296 ml 11/28/18 Allergies Allergy/AdvReac Type Severity Reaction Status Date / Time No Known Allergies Allergy Verified 11/28/18 19:49 General Stated Complaint: Abd Prob FLASH: 3 Review of Systems Review of Systems All systems reviewed & are unremarkable except as noted in HPI and below Constitutional Reports as per HPI, Denies chills and Denies fever(s) Eyes Denies blurry vision ENT Denies dizziness, Denies sore throat and Denies throat swelling Cardiovascular Denies chest pain and Denies dyspnea Respiratory Denies cough and Denies dyspnea Gastrointestinal Reports abdominal pain, Denies diarrhea and Denies vomiting Genitourinary Denies hematuria and Denies dysuria Musculoskeletal Denies back pain and Denies numbness Integumentary/Breasts Denies lesions and Denies rash Neurologic Denies dizziness, Denies focal weakness and Denies numbness Allergic/Immunologic Denies throat swelling PFSH Social History Smoking/Tobacco Use Status: Former Tobacco Use Quit Date: 06/05/98 Tobacco: How many years used: 30 Alcohol Intake: former Drug use: Never 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 Adopted: No Foster care: No Household members: family Housing: house Number of Children: 0 Communication Needs: None current occupation: not working Current gender identity: male What type of physical activity do you participate in: none and other Details: started lifting weights Frequency: daily Seatbelt use: always Drive 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 Exam Const General: cooperative, healthy appearing and no acute distress HENMT Head: normal to inspection Face and sinus: normal facial exam Eyes General: appearance normal, both eyes and all related structures EOM: EOM intact bilaterally Neck Neck: normal visual inspection and No submandibular swelling Lymphatic: no lymphadenopathy noted Chest Chest: normal inspection of the chest and no tenderness Resp Effort & Inspection: normal respiratory effort and able to speak in complete sentences Auscultation: clear to auscultation bilaterally Cardio Rate: regular rate Rhythm: regular rhythm GI Inspection: normal to inspection Palpation: soft, not firm, not rigid and nontender Auscultation: normal bowel sounds Skin General skin exam: no rashes or lesions noted Neuro General: alert, awake and oriented x3 Cognition: normal cognition Speech: speech normal Motor: muscle tone normal throughout Sensory Exam: no sensory deficits noted Extrem General: normal to inspection, full ROM and no edema Psych Appearance: grossly normal Mental Status: mental status grossly normal Speech and Movement: speech and movement normal Affect: normal affect Course Vital Signs Temperature 97.9 F 11/28/18 19:47 Pulse 82 11/28/18 19:47 Respiratory Rate 11/28/18 19:47 Blood Pressure 130/90 11/28/18 19:47 Pulse Oximetry 96 11/28/18 19:47 Temperature 97.9 F 11/28/18 19:47 Temperature Source Temporal Artery Scan 11/28/18 19:47 Pulse 82 11/28/18 19:47 Respiratory Rate 11/28/18 19:47 Respiratory Effort 11/28/18 19:55 Blood Pressure 130/90 11/28/18 19:47 Blood Pressure Position Sitting 11/28/18 19:47 Pulse Oximetry 96 11/28/18 19:47 Oxygen Delivery Method Nasal Cannula 11/28/18 19:47 Pain Level 8 11/28/18 19:47
== END 2018-11-28 20:30 | disposition home or self-care (01) ==
PROVIDERS: Emergency Provider Physician Assistant; PCP Internal Medicine
DX: K59.00 Constipation, unspecified (principal); G89.29 Other chronic pain; R10.9 Unspecified abdominal pain; F41.9 Anxiety disorder, unspecified; J44.9 Chronic obstructive pulmonary disease, unspecified
CPT/HCPCS: 99282

== ENCOUNTER 2018-11-29 08:43 | Emergency (ER) | payer MEDICAID, SELFPAY ==
[2018-11-29 08:46] VITALS: BP 126/85; PULSE 78; RESP 16; TEMP 36.6; O2SAT 96
[2018-11-29 08:49] VITALS: RESP 16
--- NOTE | 2018-11-29 09:01 | DI.RAD_ITS ---
SYMPTOM/DIAGNOSIS: CONSTIPATED/ABD PAIN ABDOMEN: 11/29 Three views were obtained. There is nonspecific bowel gas pattern with no gross evidence of obstruction. Question slight thumbprinting of a couple loops of bowel in left lower quadrant, inflammatory process not excluded. Appropriate follow up studies requested. CONCLUSION: No evidence of acute obstruction.
--- NOTE | 2018-11-29 09:04 | W.ED.GENAD ---
Discharge Plan Disposition Patient Disposition: HOME Condition: Stable Discharge Details Chief Complaint: Anxiety Clinical Impression: Constipation Primary Care Provider: Deborah Chow ED Provider: Ean Lyons Home Meds and New Rx's Prescriptions: New docusate sodium [Colace] 100 mg capsule 200 mg PO QHS PRN (Reason: constipation) Qty: 6 RF: 0 Continued quetiapine [Seroquel] 50 mg tablet 50 mg PO QHS Qty: 90 RF: 0 Spiriva with HandiHaler 18 mcg capsule, w/inhalation device 1 cap Inhalation DAILY Qty: 90 RF: 0 docusate sodium [Stool Softener] 100 mg tablet 100 mg PO DAILY RF: 0 morphine 15 mg tablet 7.5 mg PO QDAY MDD 15 PRN (Reason: dyspnea) Qty: 4 RF: 0 prednisone 20 mg tablet 20 mg PO BID RF: 0 magnesium citrate solution 75 ml PO DAILY PRN (Reason: constipation) Qty: 296 RF: 1 albuterol sulfate [ProAir HFA] 90 mcg/actuation HFA aerosol inhaler 2 puff Inhalation Q4H PRN PRN (Reason: Shortness Of Breath) Qty: 1 RF: 1 fluoxetine 20 mg tablet 20 mg PO DAILY Qty: 90 RF: 3 quetiapine [Seroquel] 25 mg tablet 25 mg PO BID Qty: 20 RF: 0 lorazepam 1 mg tablet 1 mg PO Q6H PRN (Reason: anxiety) RF: 0 hydroxyzine HCl 25 mg tablet 25 mg PO TID PRNRF: 0 OptiChamber Advantage 1 EACH spacer 1 ea Miscellaneous DIRECTED RF: 0 albuterol sulfate 2.5 MG/3 ML solution for nebulization 2.5 mg Inhalation Q4H PRN PRN (Reason: Shortness Of Breath) 30 Days RF: 0 guaifenesin [Mucus Relief] 400 mg Tablet 400 mg PO Q4H PRNRF: 0 pantoprazole 40 mg tablet,delayed release (DR/EC) 40 mg PO DAILY Qty: 90 RF: 3 Symbicort 10.2 GM HFA aerosol inhaler 10.2 gm Inhalation BID Qty: 3 RF: 3 diphenhydramine HCl [Benadryl] 25 MG capsule 25 mg PO Q6H PRNRF: 0 meclizine 25 mg tablet 25 mg PO TID PRN (Reason: dizziness) Qty: 20 RF: 0 ondansetron 4 mg tablet,disintegrating 4 mg PO TID-QID PRN (Reason: nausea and vomiting) Qty: 30 RF: 0 Discharge Instructions Instructions: Constipation (ED) Additional Instructions: Please take Colace, to 2 tablets at bedtime, as needed for constipation up to 3 days time. Return if you develop a fever, abdominal bloating, vomiting, or any other acute concerns. Continue your follow-up with pulmonary rehab. Medical Decision Making 63-year-old male with frequent visits to the ED, pulmonary rehab 3 times a week, who was seen last night for constipation x4 days it was refractive to magnesium citrate at home. He is well-appearing with normal vital signs and his exam is unremarkable. He is referred for x-ray which does not reveal acute obstruction. Note of thumbprinting as per reading and on previous films, but also note no fever and patient tolerated liquids and solids by mouth. He has closely arrange follow-up given his [place] of care. Will have him take 3 days of Colace, if needed, with strict return precautions. If he develops a fever or worsening abdominal symptoms further work-up would be warranted. HPI General Mode of arrival: ambulatory. Date/Time Provider Initiated Documentation: 11/29/18 08:46. Limitations to Documentation: no limitations. Information obtained by: patient. History of Present Illness 63 year old M presents to the emergency department with the chief complaint of Abdominal pain, cramps, constipation x4d, described as moderate, Quality is described as dull, and is localized to the abdomen. Patient reports no radiation. Patient started experiencing this day(s) No relieving factors improve symptom(s), No exacerbating factors reported . Patient notes no other symptoms.; denies diaphoresis and nausea/vomiting. Patient did receive the following treatments prior to arrival, none Related Data Home Medications Medication Instructions Recorded Confirmed [employer] Advantage kit 10/15/17 11/28/18 albuterol sulfate 2.5 mg INHALATION Q4H PRN PRN 30 10/15/17 11/28/18 Days ml albuterol sulfate HFA 90 2 puff INHALATION Q4H PRN PRN #1 07/02/18 11/28/18 mcg/actuation aerosol inhaler inh guaifenesin [Mucus Relief] 400 mg PO Q4H PRN 09/09/18 11/28/18 Symbicort 10.2 gm INHALATION BID #3 inhaler 09/21/18 11/28/18 pantoprazole 40 mg PO DAILY #90 tab 09/21/18 11/28/18 quetiapine 50 mg tablet 50 mg PO QHS #90 tab 09/26/18 11/28/18 tiotropium bromide 18 mcg capsule 1 cap INHALATION DAILY #90 inh 09/26/18 11/28/18 with inhalation device fluoxetine 20 mg tablet 20 mg PO DAILY #90 tab-cap 10/02/18 11/28/18 quetiapine 25 mg tablet 25 mg PO BID #20 tab 10/17/18 11/28/18 meclizine 25 mg PO TID PRN #20 tab 10/23/18 11/28/18 docusate sodium 100 mg tablet 100 mg PO DAILY 10/30/18 11/28/18 diphenhydramine HCl [Benadryl] 25 mg PO Q6H PRN 11/01/18 11/28/18 lorazepam 1 mg tablet 1 mg PO Q6H PRN tab 11/09/18 11/28/18 ondansetron 4 mg PO TID-QID PRN #30 tab 11/12/18 11/28/18 morphine 15 mg immediate release 7.5 mg PO QDAY PRN #4 tab MDD 15 11/13/18 11/28/18 tablet hydroxyzine HCl 25 mg tablet 25 mg PO TID PRN tab 11/20/18 11/28/18 prednisone 20 mg tablet 20 mg PO BID 11/20/18 11/28/18 magnesium citrate oral solution 75 ml PO DAILY PRN #296 ml 11/28/18 11/28/18 docusate sodium [Colace] 200 mg PO QHS PRN #6 cap 11/29/18 Previous Rx's Medication Instructions [facility] 10/15/17 albuterol sulfate 2.5 mg INHALATION Q4H PRN PRN 30 10/15/17 Days ml albuterol sulfate HFA 90 2 puff INHALATION Q4H PRN PRN #1 07/02/18 mcg/actuation aerosol inhaler inh Symbicort 10.2 gm INHALATION BID #3 inhaler 09/21/18 pantoprazole 40 mg PO DAILY #90 tab 04/19/19 quetiapine 50 mg tablet 50 mg PO QHS #90 tab 09/26/18 tiotropium bromide 18 mcg capsule 1 cap INHALATION DAILY #90 inh 09/26/18 with inhalation device fluoxetine 20 mg tablet 20 mg PO DAILY #90 tab-cap 10/02/18 quetiapine 25 mg tablet 25 mg PO BID #20 tab 10/17/18 meclizine 25 mg PO TID PRN #20 tab 10/23/18 ondansetron 4 mg PO TID-QID PRN #30 tab 11/12/18 morphine 15 mg immediate release 7.5 mg PO QDAY PRN #4 tab MDD 15 11/13/18 tablet magnesium citrate oral solution 75 ml PO DAILY PRN #296 ml 11/28/18 docusate sodium [Colace] 200 mg PO QHS PRN #6 cap 11/29/18 Allergies Allergy/AdvReac Type Severity Reaction Status Date / Time No Known Allergies Allergy Verified 11/28/18 19:49 General Stated Complaint: Anxiety FLASH: 4 Review of Systems Review of Systems Took mag citrate last night, no stool production. No fever, vomiting. Has been performing pulmonary rehab. Denies depression to me . 6 systems reviewed and otherwise neg [facility] Medical History COPD (chronic obstructive pulmonary disease) (Chronic) Adjustment disorder with anxiety (Chronic) Alcohol abuse (Chronic) Anxiety (Chronic) Dyspepsia (Chronic) Malignant neoplasm of right lung (Chronic) Tubular adenoma of colon (Inactive) Surgical History Status post cataract extraction and insertion of intraocular lens of left eye (Chronic 11/05/18) History of lung biopsy (Resolved) History of surgery on upper extremity (Resolved) colonoscopy (Inactive 01/19/15) Family History Father Essential hypertension Hyperlipidemia Paternal Uncle Heart disease Stroke Cerebral hemorrhage Hypertension Brother Cancer Social History Smoking/Tobacco Use Status: Former Tobacco Use Quit Date: 06/05/98 Tobacco: How many years used: 30 Alcohol Intake: former Drug use: Never 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 Adopted: No Foster care: No Household members: family Housing: house Number of Children: 0 Communication Needs: None current occupation: not working Current gender identity: male What type of physical activity do you participate in: none and other Details: started lifting weights Frequency: daily Seatbelt use: always Drive intox 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 Exam Narrative Exam Narrative: GEN: awake, alert, oriented 3. Pleasant, well groomed, interactive. HEAD: Normocephalic, atraumatic ENT: Mucous membranes moist, oropharynx unremarkable, External ear exam unremarkable EYES: PERRL, EOMI NECK: Full ROM, no URSZULA, no menigismus CHEST/RESP: Nontender, clear to auscultation bilateral, no wheeze/rhonchi/rales CARDIOVASCULAR: RRR, no murmur, rub jeannie. 2+ Rad pulse bilateral ABDOMEN: Soft, nontender, no mass. +Bowel sounds EXT: Full ROM, no edema, no rash Neuro: Grossly normal neurologic exam, conversant, interactive. Psych: Speech fluent, thoughts congruent, affect anxious Course Vital Signs Temperature 36.6 C 11/29/18 08:46 Pulse 78 11/29/18 08:46 Respiratory Rate 16 11/29/18 08:46 Blood Pressure 126/85 11/29/18 08:46 Pulse Oximetry 96 11/29/18 08:46 Temperature 36.6 C 11/29/18 08:46 Temperature Source Temporal Artery Scan 11/29/18 08:46 Pulse 78 11/29/18 08:46 Respiratory Rate 16 11/29/18 08:49 Respiratory Effort Non-Labored 11/29/18 08:49 Respiratory Pattern Normal 11/29/18 08:49 Blood Pressure 126/85 11/29/18 08:46 Blood Pressure Position Supine 11/29/18 08:46 Pulse Oximetry 96 11/29/18 08:46 Oxygen Delivery Method Room Air 11/29/18 08:46 Oxygen Flow Rate 0 11/29/18 08:46
--- NOTE | 2018-11-29 09:07 | ED.GENADUL_ITS ---
Discharge Plan Disposition Patient Disposition: HOME Condition: Stable Discharge Details Chief Complaint: Anxiety Clinical Impression: Constipation Primary Care Provider: Deborah Chow ED Provider: Ean Lyons Home Meds and New Rx's Prescriptions: New docusate sodium [Colace] 100 mg capsule 200 mg PO QHS PRN (Reason: constipation) Qty: 6 RF: 0 Continued quetiapine [Seroquel] 50 mg tablet 50 mg PO QHS Qty: 90 RF: 0 Spiriva with HandiHaler 18 mcg capsule, w/inhalation device 1 cap Inhalation DAILY Qty: 90 RF: 0 docusate sodium [Stool Softener] 100 mg tablet 100 mg PO DAILY RF: 0 morphine 15 mg tablet 7.5 mg PO QDAY MDD 15 PRN (Reason: dyspnea) Qty: 4 RF: 0 prednisone 20 mg tablet 20 mg PO BID RF: 0 magnesium citrate solution 75 ml PO DAILY PRN (Reason: constipation) Qty: 296 RF: 1 albuterol sulfate [ProAir HFA] 90 mcg/actuation HFA aerosol inhaler 2 puff Inhalation Q4H PRN PRN (Reason: Shortness Of Breath) Qty: 1 RF: 1 fluoxetine 20 mg tablet 20 mg PO DAILY Qty: 90 RF: 3 quetiapine [Seroquel] 25 mg tablet 25 mg PO BID Qty: 20 RF: 0 lorazepam 1 mg tablet 1 mg PO Q6H PRN (Reason: anxiety) RF: 0 hydroxyzine HCl 25 mg tablet 25 mg PO TID PRNRF: 0 OptiChamber Advantage 1 EACH spacer 1 ea Miscellaneous DIRECTED RF: 0 albuterol sulfate 2.5 MG/3 ML solution for nebulization 2.5 mg Inhalation Q4H PRN PRN (Reason: Shortness Of Breath) 30 Days RF: 0 guaifenesin [Mucus Relief] 400 mg Tablet 400 mg PO Q4H PRNRF: 0 pantoprazole 40 mg tablet,delayed release (DR/EC) 40 mg PO DAILY Qty: 90 RF: 3 Symbicort 10.2 GM HFA aerosol inhaler 10.2 gm Inhalation BID Qty: 3 RF: 3 diphenhydramine HCl [Benadryl] 25 MG capsule 25 mg PO Q6H PRNRF: 0 meclizine 25 mg tablet 25 mg PO TID PRN (Reason: dizziness) Qty: 20 RF: 0 ondansetron 4 mg tablet,disintegrating 4 mg PO TID-QID PRN (Reason: nausea and vomiting) Qty: 30 RF: 0 Discharge Instructions Instructions: Constipation (ED) Additional Instructions: Please take Colace, to 2 tablets at bedtime, as needed for constipation up to 3 days time. Return if you develop a fever, abdominal bloating, vomiting, or any other acute concerns. Continue your follow-up with pulmonary rehab. Medical Decision Making 63-year-old male with frequent visits to the ED, pulmonary rehab 3 times a week, who was seen last night for constipation x4 days it was refractive to magnesium citrate at home. He is well-appearing with normal vital signs and his exam is unremarkable. He is referred for x-ray which does not reveal acute obstruction. Note of thumbprinting as per reading and on previous films, but also note no fever and patient tolerated liquids and solids by mouth. He has closely arrange follow-up given his [place] of care. Will have him take 3 days of Colace, if needed, with strict return precautions. If he develops a fever or worsening abdominal symptoms further work-up would be warranted. HPI General Mode of arrival: ambulatory . Date/Time Provider Initiated Documentation: 11/29/18 08:46 . Limitations to Documentation: no limitations . Information obtained by: patient . History of Present Illness 63 year old M presents to the emergency department with the chief complaint of Abdominal pain, cramps, constipation x4d, described as moderate, Quality is described as dull, and is localized to the abdomen. Patient reports no radiation. Patient started experiencing this day(s) No relieving factors improve symptom(s), No exacerbating factors reported . Patient notes no other symptoms.; denies diaphoresis and nausea/vomiting. Patient did receive the following treatments prior to arrival, none Related Data Home Medications Medication Instructions Recorded Confirmed [employer] Advantage kit 10/15/17 11/28/18 albuterol sulfate 2.5 mg INHALATION Q4H PRN PRN 30 10/15/17 11/28/18 Days ml albuterol sulfate HFA 90 2 puff INHALATION Q4H PRN PRN #1 07/02/18 11/28/18 mcg/actuation aerosol inhaler inh guaifenesin [Mucus Relief] 400 mg PO Q4H PRN 09/09/18 11/28/18 Symbicort 10.2 gm INHALATION BID #3 inhaler 09/21/18 11/28/18 pantoprazole 40 mg PO DAILY #90 tab 09/21/18 11/28/18 quetiapine 50 mg tablet 50 mg PO QHS #90 tab 09/26/18 11/28/18 tiotropium bromide 18 mcg capsule 1 cap INHALATION DAILY #90 inh 09/26/18 with inhalation device fluoxetine 20 mg tablet 20 mg PO DAILY #90 tab-cap 10/02/18 11/28/18 quetiapine 25 mg tablet 25 mg PO BID #20 tab 10/17/18 11/28/18 meclizine 25 mg PO TID PRN #20 tab 10/23/18 11/28/18 docusate sodium 100 mg tablet 100 mg PO DAILY 10/30/18 11/28/18 diphenhydramine HCl [Benadryl] 25 mg PO Q6H PRN 11/01/18 11/28/18 lorazepam 1 mg tablet 1 mg PO Q6H PRN tab 11/09/18 11/28/18 ondansetron 4 mg PO TID-QID PRN #30 tab 11/12/18 11/28/18 morphine 15 mg immediate release 7.5 mg PO QDAY PRN #4 tab MDD 15 11/13/18 11/28/18 tablet hydroxyzine HCl 25 mg tablet 25 mg PO TID PRN tab 11/20/18 11/28/18 prednisone 20 mg tablet 20 mg PO BID 11/20/18 11/28/18 magnesium citrate oral solution 75 ml PO DAILY PRN #296 ml 11/28/18 11/28/18 docusate sodium [Colace] 200 mg PO QHS PRN #6 cap 11/29/18 Previous Rx's Medication Instructions [facility] 10/15/17 albuterol sulfate 2.5 mg INHALATION Q4H PRN PRN 30 10/15/17 Days ml albuterol sulfate HFA 90 2 puff INHALATION Q4H PRN PRN #1 07/02/18 mcg/actuation aerosol inhaler inh Symbicort 10.2 gm INHALATION BID #3 inhaler 09/21/18 pantoprazole 40 mg PO DAILY #90 tab 04/19/19 quetiapine 50 mg tablet 50 mg PO QHS #90 tab 09/26/18 tiotropium bromide 18 mcg capsule 1 cap INHALATION DAILY #90 inh 09/26/18 with inhalation device fluoxetine 20 mg tablet 20 mg PO DAILY #90 tab-cap 10/02/18 quetiapine 25 mg tablet 25 mg PO BID #20 tab 10/17/18 meclizine 25 mg PO TID PRN #20 tab 10/23/18 ondansetron 4 mg PO TID-QID PRN #30 tab 11/12/18 morphine 15 mg immediate release 7.5 mg PO QDAY PRN #4 tab MDD 15 11/13/18 tablet magnesium citrate oral solution 75 ml PO DAILY PRN #296 ml 11/28/18 docusate sodium [Colace] 200 mg PO QHS PRN #6 cap 11/29/18 Allergies Allergy/AdvReac Type Severity Reaction Status Date / Time No Known Allergies Allergy Verified 11/28/18 19:49 General Stated Complaint: Anxiety FLASH: 4 Review of Systems Review of Systems Took mag citrate last night, no stool production. No fever, vomiting. Has been performing pulmonary rehab. Denies depression to me . 6 systems reviewed and otherwise neg [facility] Medical History COPD (chronic obstructive pulmonary disease) (Chronic) Adjustment disorder with anxiety (Chronic) Alcohol abuse (Chronic) Anxiety (Chronic) Dyspepsia (Chronic) Malignant neoplasm of right lung (Chronic) Tubular adenoma of colon (Inactive) Surgical History Status post cataract extraction and insertion of intraocular lens of left eye (Chronic 11/05/18) History of lung biopsy (Resolved) History of surgery on upper extremity (Resolved) colonoscopy (Inactive 01/19/15) Family History Father Essential hypertension Hyperlipidemia Paternal Uncle Heart disease Stroke Cerebral hemorrhage Hypertension Brother Cancer Social History Smoking/Tobacco Use Status: Former Tobacco Use Quit Date: 06/05/98 Tobacco: How many years used: 30 Alcohol Intake: former Drug use: Never 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 Adopted: No Foster care: No Household members: family Housing: house Number of Children: 0 Communication Needs: None current occupation: not working Current gender identity: male What type of physical activity do you participate in: none and other Details: started lifting weights Frequency: daily Seatbelt use: always Drive intox 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 Exam Narrative Exam Narrative: GEN: awake, alert, oriented 3. Pleasant, well groomed, interactive. HEAD: Normocephalic, atraumatic ENT: Mucous membranes moist, oropharynx unremarkable, External ear exam unremarkable EYES: PERRL, EOMI NECK: Full ROM, no URSZULA, no menigismus CHEST/RESP: Nontender, clear to auscultation bilateral, no wheeze/rhonchi/rales CARDIOVASCULAR: RRR, no murmur, rub jeannie. 2+ Rad pulse bilateral ABDOMEN: Soft, nontender, no mass. +Bowel sounds EXT: Full ROM, no edema, no rash Neuro: Grossly normal neurologic exam, conversant, interactive. Psych: Speech fluent, thoughts congruent, affect anxious Course Vital Signs Temperature 36.6 C 11/29/18 08:46 Pulse 78 11/29/18 08:46 Respiratory Rate 16 11/29/18 08:46 Blood Pressure 126/85 11/29/18 08:46 Pulse Oximetry 96 11/29/18 08:46 Temperature 36.6 C 11/29/18 08:46 Temperature Source Temporal Artery Scan 11/29/18 08:46 Pulse 78 11/29/18 08:46 Respiratory Rate 16 11/29/18 08:49 Respiratory Effort Non-Labored 11/29/18 08:49 Respiratory Pattern Normal 11/29/18 08:49 Blood Pressure 126/85 11/29/18 08:46 Blood Pressure Position Supine 11/29/18 08:46 Pulse Oximetry 96 11/29/18 08:46 Oxygen Delivery Method Room Air 11/29/18 08:46 Oxygen Flow Rate 0 11/29/18 08:46
== END 2018-11-29 09:57 | disposition home or self-care (01) ==
PROVIDERS: Emergency Provider Emergency Medicine; PCP Internal Medicine
DX: K59.00 Constipation, unspecified (principal)
CPT/HCPCS: 99283; 74019

== ENCOUNTER 2018-11-29 17:48 | Emergency (ER) | payer MEDICAID, SELFPAY ==
[2018-11-29 17:56] VITALS: BP 137/91; PULSE 86; RESP 20; TEMP 36.6; O2SAT 97
--- NOTE | 2018-11-29 18:21 | ED.GENADUL_ITS ---
Discharge Plan Disposition Patient Disposition: HOME Condition: Good Discharge Details Chief Complaint: Recheck Clinical Impression: Anxiety Primary Care Provider: Deborah Chow ED Provider: Dontrell Rudolph Home Meds and New Rx's Prescriptions: Continued quetiapine [Seroquel] 50 mg tablet 50 mg PO QHS Qty: 90 RF: 0 Spiriva with HandiHaler 18 mcg capsule, w/inhalation device 1 cap Inhalation DAILY Qty: 90 RF: 0 docusate sodium [Stool Softener] 100 mg tablet 100 mg PO DAILY RF: 0 morphine 15 mg tablet 7.5 mg PO QDAY MDD 15 PRN (Reason: dyspnea) Qty: 4 RF: 0 prednisone 20 mg tablet 20 mg PO BID RF: 0 magnesium citrate solution 75 ml PO DAILY PRN (Reason: constipation) Qty: 296 RF: 1 albuterol sulfate [ProAir HFA] 90 mcg/actuation HFA aerosol inhaler 2 puff Inhalation Q4H PRN PRN (Reason: Shortness Of Breath) Qty: 1 RF: 1 fluoxetine 20 mg tablet 20 mg PO DAILY Qty: 90 RF: 3 quetiapine [Seroquel] 25 mg tablet 25 mg PO BID Qty: 20 RF: 0 lorazepam 1 mg tablet 1 mg PO Q6H PRN (Reason: anxiety) RF: 0 hydroxyzine HCl 25 mg tablet 25 mg PO TID PRNRF: 0 OptiChamber Advantage 1 EACH spacer 1 ea Miscellaneous DIRECTED RF: 0 albuterol sulfate 2.5 MG/3 ML solution for nebulization 2.5 mg Inhalation Q4H PRN PRN (Reason: Shortness Of Breath) 30 Days RF: 0 guaifenesin [Mucus Relief] 400 mg Tablet 400 mg PO Q4H PRNRF: 0 docusate sodium [Colace] 100 mg capsule 200 mg PO QHS PRN (Reason: constipation) Qty: 6 RF: 0 pantoprazole 40 mg tablet,delayed release (DR/EC) 40 mg PO DAILY Qty: 90 RF: 3 Symbicort 10.2 GM HFA aerosol inhaler 10.2 gm Inhalation BID Qty: 3 RF: 3 diphenhydramine HCl [Benadryl] 25 MG capsule 25 mg PO Q6H PRNRF: 0 meclizine 25 mg tablet 25 mg PO TID PRN (Reason: dizziness) Qty: 20 RF: 0 ondansetron 4 mg tablet,disintegrating 4 mg PO TID-QID PRN (Reason: nausea and vomiting) Qty: 30 RF: 0 Discharge Instructions Instructions: Anxiety (ED) Additional Instructions: Please take your normally prescribed nightly medication and keep your appointment for your cataract procedure tomorrow. Continue to follow your care plan for any further needs that you may have Referrals: Deborah Chow MD [Primary Care Provider] - (As needed) Discharge Data Discharge Date/Time-TO BE ENTERED AT DEPARTURE: 11/29/18 18:31 Medical Decision Making Patient presenting the emergency department for chief complaint of anxiety about his cataract procedure tomorrow. He states that this is caused him some difficulty with his breathing. Patient denies any chest pain or discomfort, denies any abdominal pain, denies any other medical complaints at this time. Physical exam shows a anxious but nontoxic-appearing patient with no signs of respiratory distress, clear lung sounds, normal cardiac exam. I feel the patient is having some anxiety about his health procedure tomorrow. Patient states that he was recently prescribed hydroxyzine to use for any anxiety. Patient was recommended to use his normally prescribed medications for his anxiety and after further discussion of the procedure and him going to [place] for the facility he was more calm and had no further complaints and visually appeared to relax during our conversation. Patient encouraged to continue to follow his care plan as previous established otherwise I feel that there is no emergent or life-threatening needs to address at this time. HPI General Mode of arrival: ambulatory . Date/Time Provider Initiated Documentation: 11/29/18 17:51 . Limitations to Documentation: no limitations . Information obtained by: patient and RN notes reviewed . History of Present Illness 63 year old M presents to the emergency department with the chief complaint of Anxiety about cataract surgery, described as similar to prior episodes, Patient started experiencing this hour(s) (8) and it has been constant. No relieving factors improve symptom(s), Patient did receive the following treatments prior to arrival, none Related Data Home Medications Medication Instructions [facility]ed [facility] 11/28/18 albuterol sulfate 2.5 mg INHALATION Q4H PRN PRN 30 10/15/17 11/28/18 Days ml albuterol sulfate HFA 90 2 puff INHALATION Q4H PRN PRN #1 07/02/18 11/28/18 mcg/actuation aerosol inhaler inh guaifenesin [Mucus Relief] 400 mg PO Q4H PRN 09/09/18 11/28/18 Symbicort 10.2 gm INHALATION BID #3 inhaler 09/21/18 11/28/18 pantoprazole 40 mg PO DAILY #90 tab 09/21/18 11/28/18 quetiapine 50 mg tablet 50 mg PO QHS #90 tab 09/26/18 11/28/18 tiotropium bromide 18 mcg capsule 1 cap INHALATION DAILY #90 inh 09/26/18 11/28/18 with inhalation device fluoxetine 20 mg tablet 20 mg PO DAILY #90 tab-cap 10/02/18 11/28/18 quetiapine 25 mg tablet 25 mg PO BID #20 tab 10/17/18 11/28/18 meclizine 25 mg PO TID PRN #20 tab 10/23/18 11/28/18 docusate sodium 100 mg tablet 100 mg PO DAILY 10/30/18 11/28/18 diphenhydramine HCl [Benadryl] 25 mg PO Q6H PRN 11/01/18 11/28/18 lorazepam 1 mg tablet 1 mg PO Q6H PRN tab 11/09/18 11/28/18 ondansetron 4 mg PO TID-QID PRN #30 tab 11/12/18 11/28/18 morphine 15 mg immediate release 7.5 mg PO QDAY PRN #4 tab MDD 15 11/13/18 11/28/18 tablet hydroxyzine HCl 25 mg tablet 25 mg PO TID PRN tab 11/20/18 11/28/18 prednisone 20 mg tablet 20 mg PO BID 11/20/18 11/28/18 magnesium citrate oral solution 75 ml PO DAILY PRN #296 ml 11/28/18 11/28/18 docusate sodium [Colace] 200 mg PO QHS PRN #6 cap 11/29/18 Previous Rx's Medication Instructions [facility] 10/15/17 albuterol sulfate 2.5 mg INHALATION Q4H PRN PRN 30 10/15/17 Days ml albuterol sulfate HFA 90 2 puff INHALATION Q4H PRN PRN #1 01/28/19 mcg/actuation aerosol inhaler inh Symbicort 10.2 gm INHALATION BID #3 inhaler 09/21/18 pantoprazole 40 mg PO DAILY #90 tab 09/21/18 quetiapine 50 mg tablet 50 mg PO QHS #90 tab 09/26/18 tiotropium bromide 18 mcg capsule 1 cap INHALATION DAILY #90 inh 09/26/18 with inhalation device fluoxetine 20 mg tablet 20 mg PO DAILY #90 tab-cap 10/02/18 quetiapine 25 mg tablet 25 mg PO BID #20 tab 10/17/18 meclizine 25 mg PO TID PRN #20 tab 10/23/18 ondansetron 4 mg PO TID-QID PRN #30 tab 11/12/18 morphine 15 mg immediate release 7.5 mg PO QDAY PRN #4 tab MDD 15 11/13/18 tablet magnesium citrate oral solution 75 ml PO DAILY PRN #296 ml 11/28/18 docusate sodium [Colace] 200 mg PO QHS PRN #6 cap 11/29/18 Allergies Allergy/AdvReac Type Severity Reaction Status Date / Time No Known Allergies Allergy Verified 11/28/18 19:49 General Stated Complaint: Recheck FLASH: 5 Review of Systems Constitutional Denies chills and Denies fever(s) Cardiovascular Denies chest pain and Reports dyspnea Respiratory Reports dyspnea Gastrointestinal Denies abdominal pain, Denies nausea and Denies vomiting Integumentary/Breasts Denies rash Psychiatric Reports as per HPI and Reports anxiety PFS Medical History COPD (chronic obstructive pulmonary disease) (Chronic) Adjustment disorder with anxiety (Chronic) Alcohol abuse (Chronic) Anxiety (Chronic) Dyspepsia (Chronic) Malignant neoplasm of right lung (Chronic) Tubular adenoma of colon (Inactive) Surgical History Status post cataract extraction and insertion of intraocular lens of left eye (Chronic 11/05/18) History of lung biopsy (Resolved) History of surgery on upper extremity (Resolved) colonoscopy (Inactive 01/19/15) Family History Father Essential hypertension Hyperlipidemia Paternal Uncle Heart disease Stroke Cerebral hemorrhage Hypertension Brother Cancer Social History Smoking/Tobacco Use Status: Former Tobacco Use Quit Date: 06/05/98 Tobacco: How many years used: 30 Alcohol Intake: former Drug use: Never 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 Adopted: No Foster care: No Household members: family Housing: house Number of Children: 0 Communication Needs: None current occupation: not working Current gender identity: male What type of physical activity do you participate in: none and other Details: started lifting weights Frequency: daily Seatbelt use: always Drive intox or ride w/intox 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 Exam Const General: cooperative, no acute distress and not ill appearing Orientation: alert, awake and oriented x3 HENMT Mouth: moist mucous membranes Resp Effort & Inspection: normal respiratory effort, able to speak in complete sentences and no respiratory distress Auscultation: clear to auscultation bilaterally Cardio Rate: regular rate Rhythm: regular rhythm Heart Sounds: S1 normal and S2 normal Skin General skin exam: no rashes or lesions noted Neuro General: alert, awake, oriented x3, moves all extremities and no focal motor deficits Sensory Exam: no sensory deficits noted Psych Appearance: grossly normal Mental Status: mental status grossly normal Speech and Movement: speech and movement normal Mood: anxious mood Affect: normal affect Attitude: cooperative Course Vital Signs Temperature 36.6 C 11/29/18 17:56 Pulse 86 11/29/18 17:56 Respiratory Rate 20 11/29/18 17:56 Blood Pressure 137/91 H 11/29/18 17:56 Pulse Oximetry 97 11/29/18 17:56 Temperature 36.6 C 11/29/18 17:56 Temperature Source Skin 11/29/18 17:56 Pulse 86 11/29/18 17:56 Respiratory Rate 20 11/29/18 17:56 Blood Pressure 137/91 H 11/29/18 17:56 Blood Pressure Position Sitting 11/29/18 17:56 Pulse Oximetry 97 11/29/18 17:56 Oxygen Delivery Method Room Air 11/29/18 17:56 Oxygen Flow Rate 0 11/29/18 17:56
== END 2018-11-29 18:31 | disposition home or self-care (01) ==
PROVIDERS: Emergency Provider Nurse Practitioner Family; PCP Internal Medicine
DX: L53.9 Erythematous condition, unspecified (principal)
CPT/HCPCS: 99282

== ENCOUNTER 2018-11-29 19:59 | Emergency (ER) | payer MEDICAID, SELFPAY ==
[2018-11-29 20:02] VITALS: BP 125/91; PULSE 81; RESP 18; TEMP 36.5; O2SAT 97
--- NOTE | 2018-11-29 20:47 | ED.GENADUL_ITS ---
Discharge Plan Disposition Patient Disposition: HOME Condition: Good Discharge Details Chief Complaint: SOB Clinical Impression: Abdominal erythema Primary Care Provider: Deborah Chow ED Provider: Dontrell Rudolph Home Meds and New Rx's Prescriptions: No Action quetiapine [Seroquel] 50 mg tablet 50 mg PO QHS Qty: 90 RF: 0 Spiriva with HandiHaler 18 mcg capsule, w/inhalation device 1 cap Inhalation DAILY Qty: 90 RF: 0 docusate sodium [Stool Softener] 100 mg tablet 100 mg PO DAILY RF: 0 morphine 15 mg tablet 7.5 mg PO QDAY MDD 15 PRN (Reason: dyspnea) Qty: 4 RF: 0 prednisone 20 mg tablet 20 mg PO BID RF: 0 magnesium citrate solution 75 ml PO DAILY PRN (Reason: constipation) Qty: 296 RF: 1 albuterol sulfate [ProAir HFA] 90 mcg/actuation HFA aerosol inhaler 2 puff Inhalation Q4H PRN PRN (Reason: Shortness Of Breath) Qty: 1 RF: 1 fluoxetine 20 mg tablet 20 mg PO DAILY Qty: 90 RF: 3 quetiapine [Seroquel] 25 mg tablet 25 mg PO BID Qty: 20 RF: 0 lorazepam 1 mg tablet 1 mg PO Q6H PRN (Reason: anxiety) RF: 0 hydroxyzine HCl 25 mg tablet 25 mg PO TID PRNRF: 0 OptiChamber Advantage 1 EACH spacer 1 ea Miscellaneous DIRECTED RF: 0 albuterol sulfate 2.5 MG/3 ML solution for nebulization 2.5 mg Inhalation Q4H PRN PRN (Reason: Shortness Of Breath) 30 Days RF: 0 guaifenesin [Mucus Relief] 400 mg Tablet 400 mg PO Q4H PRNRF: 0 docusate sodium [Colace] 100 mg capsule 200 mg PO QHS PRN (Reason: constipation) Qty: 6 RF: 0 pantoprazole 40 mg tablet,delayed release (DR/EC) 40 mg PO DAILY Qty: 90 RF: 3 Symbicort 10.2 GM HFA aerosol inhaler 10.2 gm Inhalation BID Qty: 3 RF: 3 diphenhydramine HCl [Benadryl] 25 MG capsule 25 mg PO Q6H PRNRF: 0 meclizine 25 mg tablet 25 mg PO TID PRN (Reason: dizziness) Qty: 20 RF: 0 ondansetron 4 mg tablet,disintegrating 4 mg PO TID-QID PRN (Reason: nausea and vomiting) Qty: 30 RF: 0 Discharge Instructions Instructions: Dermatitis (ED) Additional Instructions: Please leave antibiotic ointment to area of irritation overnight and then remove dressing. Please continue to let this area be clean and dry. Return to emergency department as needed for any reassessment Referrals: Deborah Chow MD [Primary Care Provider] - Medical Decision Making Patient presenting to the emergency department for chief complaint of umbilical irritation. Patient denies any injury or trauma and states that it is sore and itching. Umbilical erythema secondary to irritation from patient continuing to touch the area. Difficult to determine underlying dermatitis but no obvious symptoms of yeast infection or cellulitis. Bacitracin was applied to area and patient informed to not touch the area and leave bandage and dressing applied. I do not feel there are any other emergent interventions at this time. HPI General Mode of arrival: ambulatory . Date/Time Provider Initiated Documentation: 11/29/18 20:41 . Limitations to Documentation: no limitations . Information obtained by: patient and RN notes reviewed . History of Present Illness 63 year old M presents to the emergency department with the chief complaint of Umbilical irritation, described as mild, with intensity rated at 4. Quality is described as aching (itchy), Patient abdomen. Patient started experiencing this day(s) (1) and it has been constant. No relieving factors improve symptom(s), No exacerbating factors reported . Patient notes no other symptoms.. Patient did receive the following treatments prior to arrival, none Related Data Home Medications Medication Instructions Recorded [facility] 11/28/18 albuterol sulfate 2.5 mg INHALATION Q4H PRN PRN 30 10/15/17 11/28/18 Days ml albuterol sulfate HFA 90 2 puff INHALATION Q4H PRN PRN #1 07/02/18 11/28/18 mcg/actuation aerosol inhaler inh guaifenesin [Mucus Relief] 400 mg PO Q4H PRN 09/09/18 11/28/18 Symbicort 10.2 gm INHALATION BID #3 inhaler 09/21/18 11/28/18 pantoprazole 40 mg PO DAILY #90 tab 09/21/18 11/28/18 quetiapine 50 mg tablet 50 mg PO QHS #90 tab 09/26/18 11/28/18 tiotropium bromide 18 mcg capsule 1 cap INHALATION DAILY #90 inh 09/26/18 11/28/18 with inhalation device fluoxetine 20 mg tablet 20 mg PO DAILY #90 tab-cap 10/02/18 11/28/18 quetiapine 25 mg tablet 25 mg PO BID #20 tab 10/17/18 11/28/18 meclizine 25 mg PO TID PRN #20 tab 10/23/18 11/28/18 docusate sodium 100 mg tablet 100 mg PO DAILY 10/30/18 11/28/18 diphenhydramine HCl [Benadryl] 25 mg PO Q6H PRN 11/01/18 11/28/18 lorazepam 1 mg tablet 1 mg PO Q6H PRN tab 11/09/18 11/28/18 ondansetron 4 mg PO TID-QID PRN #30 tab 11/12/18 11/28/18 morphine 15 mg immediate release 7.5 mg PO QDAY PRN #4 tab MDD 15 11/13/18 11/28/18 tablet hydroxyzine HCl 25 mg tablet 25 mg PO TID PRN tab 11/20/18 11/28/18 prednisone 20 mg tablet 20 mg PO BID 11/20/18 11/28/18 magnesium citrate oral solution 75 ml PO DAILY PRN #296 ml 11/28/18 11/28/18 docusate sodium [Colace] 200 mg PO QHS PRN #6 cap 11/29/18 Previous Rx's Medication Instructions Recorded [facility] Advantage kit 10/15/17 albuterol sulfate 2.5 mg INHALATION Q4H PRN PRN 30 10/15/17 Days ml albuterol sulfate HFA 90 2 puff INHALATION Q4H PRN PRN #1 07/02/18 mcg/actuation aerosol inhaler inh Symbicort 10.2 gm INHALATION BID #3 inhaler 09/21/18 pantoprazole 40 mg PO DAILY #90 tab 09/21/18 quetiapine 50 mg tablet 50 mg PO QHS #90 tab 09/26/18 tiotropium bromide 18 mcg capsule 1 cap INHALATION DAILY #90 inh 09/26/18 with inhalation device fluoxetine 20 mg tablet 20 mg PO DAILY #90 tab-cap 10/02/18 quetiapine 25 mg tablet 25 mg PO BID #20 tab 10/17/18 meclizine 25 mg PO TID PRN #20 tab 10/23/18 ondansetron 4 mg PO TID-QID PRN #30 tab 11/12/18 morphine 15 mg immediate release 7.5 mg PO QDAY PRN #4 tab MDD 15 11/13/18 tablet magnesium citrate oral solution 75 ml PO DAILY PRN #296 ml 11/28/18 docusate sodium [Colace] 200 mg PO QHS PRN #6 cap 11/29/18 Allergies Allergy/AdvReac Type Severity Reaction Status Date / Time No Known Allergies Allergy Verified 11/28/18 19:49 General Stated Complaint: SOB FLASH: 4 Review of Systems Constitutional Denies fever(s) Integumentary/Breasts Reports as per HPI, Reports pruritus and Reports erythema PFSH Social History Smoking/Tobacco Use Status: Former Tobacco Use Quit Date: 06/05/98 Tobacco: How many years used: 30 Alcohol Intake: former Drug use: Never 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 Adopted: No Foster care: No Household members: family Housing: house Number of Children: 0 Communication Needs: None current occupation: not working Current gender identity: male What type of physical activity do you participate in: none and other Details: started lifting weights Frequency: daily Seatbelt use: always Drive intox or ride w/intox 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 Exam Const General: cooperative, comfortable and no acute distress Resp Effort & Inspection: normal respiratory effort and able to speak in complete sentences GI Inspection: other (Erythema and excoriation surrounding umbilicus) Palpation: soft and nontender Course Vital Signs Temperature 36.5 C 11/29/18 20:02 Pulse 81 11/29/18 20:02 Respiratory Rate 18 11/29/18 20:02 Blood Pressure 125/91 H 11/29/18 20:02 Pulse Oximetry 97 11/29/18 20:02 Temperature 36.5 C 11/29/18 20:02 Temperature Source Tympanic 11/29/18 20:02 Pulse 81 11/29/18 20:02 Respiratory Rate 18 11/29/18 20:02 Blood Pressure 125/91 H 11/29/18 20:02 Blood Pressure Position Sitting 11/29/18 20:02 Pulse Oximetry 97 11/29/18 20:02 Oxygen Delivery Method Room Air 11/29/18 20:02 Oxygen Flow Rate 0 11/29/18 20:02 End Tidal Co2 0 11/29/18 20:02
[2018-11-29 21:00] VITALS: BP 125/91; PULSE 81; RESP 18; O2SAT 97
== END 2018-11-29 21:01 | disposition home or self-care (01) ==
PROVIDERS: Emergency Provider Nurse Practitioner Family; PCP Internal Medicine
DX: F41.9 Anxiety disorder, unspecified (principal)
CPT/HCPCS: 99282

== ENCOUNTER 2018-11-30 15:20 | Emergency (ER) | payer MEDICAID, SELFPAY ==
--- NOTE | 2018-11-30 17:11 | NUR.NOTE ---
Nursing Note: pt is here for a sore throat pt states im here fannie my throat hurts i was here ther other day for this but my breathing is doing pretty choe good today
[2018-11-30 17:12] VITALS: BP 144/97; PULSE 76; RESP 14; TEMP 37.1; O2SAT 98
--- NOTE | 2018-11-30 17:15 | W.ED.GENAD ---
Discharge Plan Disposition Patient Disposition: HOME Condition: Stable Discharge Details Chief Complaint: Sorethroat Clinical Impression: Sore throat Primary Care Provider: Deborah Chow ED Provider: Mj Chen Home Meds and New Rx's Prescriptions: No Action quetiapine [Seroquel] 50 mg tablet 50 mg PO QHS Qty: 90 RF: 0 Spiriva with HandiHaler 18 mcg capsule, w/inhalation device 1 cap Inhalation DAILY Qty: 90 RF: 0 docusate sodium [Stool Softener] 100 mg tablet 100 mg PO DAILY RF: 0 morphine 15 mg tablet 7.5 mg PO QDAY MDD 15 PRN (Reason: dyspnea) Qty: 4 RF: 0 prednisone 20 mg tablet 20 mg PO BID RF: 0 magnesium citrate solution 75 ml PO DAILY PRN (Reason: constipation) Qty: 296 RF: 1 albuterol sulfate [ProAir HFA] 90 mcg/actuation HFA aerosol inhaler 2 puff Inhalation Q4H PRN PRN (Reason: Shortness Of Breath) Qty: 1 RF: 1 fluoxetine 20 mg tablet 20 mg PO DAILY Qty: 90 RF: 3 quetiapine [Seroquel] 25 mg tablet 25 mg PO BID Qty: 20 RF: 0 lorazepam 1 mg tablet 1 mg PO Q6H PRN (Reason: anxiety) RF: 0 hydroxyzine HCl 25 mg tablet 25 mg PO TID PRNRF: 0 OptiChamber Advantage 1 EACH spacer 1 ea Miscellaneous DIRECTED RF: 0 albuterol sulfate 2.5 MG/3 ML solution for nebulization 2.5 mg Inhalation Q4H PRN PRN (Reason: Shortness Of Breath) 30 Days RF: 0 guaifenesin [Mucus Relief] 400 mg Tablet 400 mg PO Q4H PRNRF: 0 docusate sodium [Colace] 100 mg capsule 200 mg PO QHS PRN (Reason: constipation) Qty: 6 RF: 0 pantoprazole 40 mg tablet,delayed release (DR/EC) 40 mg PO DAILY Qty: 90 RF: 3 Symbicort 10.2 GM HFA aerosol inhaler 10.2 gm Inhalation BID Qty: 3 RF: 3 diphenhydramine HCl [Benadryl] 25 MG capsule 25 mg PO Q6H PRNRF: 0 meclizine 25 mg tablet 25 mg PO TID PRN (Reason: dizziness) Qty: 20 RF: 0 ondansetron 4 mg tablet,disintegrating 4 mg PO TID-QID PRN (Reason: nausea and vomiting) Qty: 30 RF: 0 Discharge Instructions Additional Instructions: you can take 1000mg tylenol and 600mg ibuprofen every 6 hours for pain as needed if pain continues in a week see your primary care provider if you have inability to swallow liquids return to the emergency department Medical Decision Making 63 yo male comes in with sore throat since yesterday. No fevers, drooling, dyspnea. He is speaking in full sentences and in no distress on exam laughing intermittently. He has no erythema of the oropharynx, midline uvula, no pain over hyoid or restricted neck morements. He has no findings to suggest rpa, mine captain, epiglotitis or pharyngitis. Does have some evidence of post nasal drip on exam likely causing his symptoms. Will d/c and advised f/u with pcp with return precautions Differential Diagnosis post nasal drip, pharyngitis HPI General Mode of arrival: ambulatory. Date/Time Provider Initiated Documentation: 11/30/18 17:13. Limitations to Documentation: no limitations. Information obtained by: patient. History of Present Illness 63 year old M presents to the emergency department with the chief complaint of sore throat, described as moderate, Quality is described as aching, and is localized to the mouth. and it has been constant. No relieving factors improve symptom(s), No exacerbating factors reported . Patient did receive the following treatments prior to arrival, none Related Data Home Medications Medication Instructions Recorded Confirmed [facility] Advantage kit 10/15/17 11/28/18 albuterol sulfate 2.5 mg INHALATION Q4H PRN PRN 30 10/15/17 11/28/18 Days ml albuterol sulfate HFA 90 2 puff INHALATION Q4H PRN PRN #1 07/02/18 11/28/18 mcg/actuation aerosol inhaler inh guaifenesin [Mucus Relief] 400 mg PO Q4H PRN 09/09/18 11/28/18 Symbicort 10.2 gm INHALATION BID #3 inhaler 09/21/18 11/28/18 pantoprazole 40 mg PO DAILY #90 tab 09/21/18 11/28/18 quetiapine 50 mg tablet 50 mg PO QHS #90 tab 09/26/18 11/28/18 tiotropium bromide 18 mcg capsule 1 cap INHALATION DAILY #90 inh 09/26/18 11/28/18 with inhalation device fluoxetine 20 mg tablet 20 mg PO DAILY #90 tab-cap 10/02/18 11/28/18 quetiapine 25 mg tablet 25 mg PO BID #20 tab 10/17/18 11/28/18 meclizine 25 mg PO TID PRN #20 tab 10/23/18 11/28/18 docusate sodium 100 mg tablet 100 mg PO DAILY 10/30/18 11/28/18 diphenhydramine HCl [Benadryl] 25 mg PO Q6H PRN 11/01/18 11/28/18 lorazepam 1 mg tablet 1 mg PO Q6H PRN tab 11/09/18 11/28/18 ondansetron 4 mg PO TID-QID PRN #30 tab 11/12/18 11/28/18 morphine 15 mg immediate release 7.5 mg PO QDAY PRN #4 tab MDD 15 11/13/18 11/28/18 tablet hydroxyzine HCl 25 mg tablet 25 mg PO TID PRN tab 11/20/18 11/28/18 prednisone 20 mg tablet 20 mg PO BID 11/20/18 11/28/18 magnesium citrate oral solution 75 ml PO DAILY PRN #296 ml 11/28/18 11/28/18 docusate sodium [Colace] 200 mg PO QHS PRN #6 cap 11/29/18 Previous Rx's Medication Instructions Recorded [facility] Advantage kit 10/15/17 albuterol sulfate 2.5 mg INHALATION Q4H PRN PRN 30 10/15/17 Days ml albuterol sulfate HFA 90 2 puff INHALATION Q4H PRN PRN #1 07/02/18 mcg/actuation aerosol inhaler inh Symbicort 10.2 gm INHALATION BID #3 inhaler 09/21/18 pantoprazole 40 mg PO DAILY #90 tab 09/21/18 quetiapine 50 mg tablet 50 mg PO QHS #90 tab 09/26/18 tiotropium bromide 18 mcg capsule 1 cap INHALATION DAILY #90 inh 09/26/18 with inhalation device fluoxetine 20 mg tablet 20 mg PO DAILY #90 tab-cap 04/30/19 quetiapine 25 mg tablet 25 mg PO BID #20 tab 10/17/18 meclizine 25 mg PO TID PRN #20 tab 10/23/18 ondansetron 4 mg PO TID-QID PRN #30 tab 11/12/18 morphine 15 mg immediate release 7.5 mg PO QDAY PRN #4 tab MDD 15 11/13/18 tablet magnesium citrate oral solution 75 ml PO DAILY PRN #296 ml 11/28/18 docusate sodium [Colace] 200 mg PO QHS PRN #6 cap 11/29/18 Allergies Allergy/AdvReac Type Severity Reaction Status Date / Time No Known Allergies Allergy Verified 11/28/18 19:49 General Stated Complaint: Sorethroat FLASH: 4 Review of Systems Review of Systems All systems reviewed & are unremarkable except as noted in HPI and below Constitutional Denies chills, Denies fever(s) and Denies weakness ENT Denies change in voice Cardiovascular Denies chest pain and Denies dyspnea Respiratory Denies cough and Denies dyspnea Gastrointestinal Denies abdominal pain, Denies nausea and Denies vomiting Neurologic Denies weakness [facility] Social History Smoking/Tobacco Use Status: Former Tobacco Use Quit Date: 06/05/98 Tobacco: How many years used: 30 Alcohol Intake: former Drug use: Never 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 Adopted: No Foster care: No Household members: family Housing: house Number of Children: 0 Communication Needs: None current occupation: not working Current gender identity: male What type of physical activity do you participate in: none and other Details: started lifting weights Frequency: daily Seatbelt use: always Drive intox or ride w/intox 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 Exam Const General: no acute distress Orientation: alert HENMT Head: normal to inspection Ears: external ears normal General nose exam: external nose normal Mouth: moist mucous membranes Eyes General: appearance normal, both eyes and all related structures Neck Neck: normal visual inspection Resp Effort & Inspection: normal respiratory effort and able to speak in complete sentences Cardio Rate: regular rate Skin General skin exam: no rashes or lesions noted Neuro General: alert and oriented x3 Extrem General: normal to inspection Psych Mental Status: mental status grossly normal Course Vital Signs Temperature 37.1 C 11/30/18 17:12 Pulse 76 11/30/18 17:12 Respiratory Rate 14 11/30/18 17:12 Blood Pressure 144/97 H 11/30/18 17:12 Pulse Oximetry 98 11/30/18 17:12 Temperature 37.1 C 11/30/18 17:12 Temperature Source Skin 11/30/18 17:12 Pulse 76 11/30/18 17:12 Respiratory Rate 14 11/30/18 17:12 Respiratory Effort 11/30/18 17:13 Blood Pressure 144/97 H 11/30/18 17:12 Blood Pressure Position Sitting 11/30/18 17:12 Pulse Oximetry 98 11/30/18 17:12 Oxygen Delivery Method Room Air 11/30/18 17:12 Oxygen Flow Rate 0 11/30/18 17:12 Pain Level 3 11/30/18 17:12
--- NOTE | 2018-11-30 17:18 | ED.GENADUL_ITS ---
Discharge Plan Disposition Patient Disposition: HOME Condition: Stable Discharge Details Chief Complaint: Sorethroat Clinical Impression: Sore throat Primary Care Provider: Deborah Chow ED Provider: Mj Chen Home Meds and New Rx's Prescriptions: No Action quetiapine [Seroquel] 50 mg tablet 50 mg PO QHS Qty: 90 RF: 0 Spiriva with HandiHaler 18 mcg capsule, w/inhalation device 1 cap Inhalation DAILY Qty: 90 RF: 0 docusate sodium [Stool Softener] 100 mg tablet 100 mg PO DAILY RF: 0 morphine 15 mg tablet 7.5 mg PO QDAY MDD 15 PRN (Reason: dyspnea) Qty: 4 RF: 0 prednisone 20 mg tablet 20 mg PO BID RF: 0 magnesium citrate solution 75 ml PO DAILY PRN (Reason: constipation) Qty: 296 RF: 1 albuterol sulfate [ProAir HFA] 90 mcg/actuation HFA aerosol inhaler 2 puff Inhalation Q4H PRN PRN (Reason: Shortness Of Breath) Qty: 1 RF: 1 fluoxetine 20 mg tablet 20 mg PO DAILY Qty: 90 RF: 3 quetiapine [Seroquel] 25 mg tablet 25 mg PO BID Qty: 20 RF: 0 lorazepam 1 mg tablet 1 mg PO Q6H PRN (Reason: anxiety) RF: 0 hydroxyzine HCl 25 mg tablet 25 mg PO TID PRNRF: 0 [employer] Advantage 1 EACH spacer 1 ea Miscellaneous DIRECTED RF: 0 albuterol sulfate 2.5 MG/3 ML solution for nebulization 2.5 mg Inhalation Q4H PRN PRN (Reason: Shortness Of Breath) 30 Days RF: 0 guaifenesin [Mucus Relief] 400 mg Tablet 400 mg PO Q4H PRNRF: 0 docusate sodium [Colace] 100 mg capsule 200 mg PO QHS PRN (Reason: constipation) Qty: 6 RF: 0 pantoprazole 40 mg tablet,delayed release (DR/EC) 40 mg PO DAILY Qty: 90 RF: 3 Symbicort 10.2 GM HFA aerosol inhaler 10.2 gm Inhalation BID Qty: 3 RF: 3 diphenhydramine HCl [Benadryl] 25 MG capsule 25 mg PO Q6H PRNRF: 0 meclizine 25 mg tablet 25 mg PO TID PRN (Reason: dizziness) Qty: 20 RF: 0 ondansetron 4 mg tablet,disintegrating 4 mg PO TID-QID PRN (Reason: nausea and vomiting) Qty: 30 RF: 0 Discharge Instructions Additional Instructions: you can take 1000mg tylenol and 600mg ibuprofen every 6 hours for pain as needed if pain continues in a week see your primary care provider if you have inability to swallow liquids return to the emergency department Medical Decision Making 63 yo male comes in with sore throat since yesterday. No fevers, drooling, dyspnea. He is speaking in full sentences and in no distress on exam laughing intermittently. He has no erythema of the oropharynx, midline uvula, no pain over hyoid or restricted neck morements. He has no findings to suggest rpa, captain waiter, epiglotitis or pharyngitis. Does have some evidence of post nasal drip on exam likely causing his symptoms. Will d/c and advised f/u with pcp with return precautions Differential Diagnosis post nasal drip, pharyngitis HPI General Mode of arrival: ambulatory . Date/Time Provider Initiated Documentation: 11/30/18 17:13 . Limitations to Documentation: no limitations . Information obtained by: patient . History of Present Illness 63 year old M presents to the emergency department with the chief complaint of sore throat, described as moderate, Quality is described as aching, and is localized to the mouth. and it has been constant. No relieving factors improve s ymptom(s), No exacerbating factors reported . Patient did receive the following treatments prior to arrival, none Related Data Home Medications Medication Instructions Recorded Confirmed [facility] Advantage kit 10/15/17 11/28/18 albuterol sulfate 2.5 mg INHALATION Q4H PRN PRN 30 10/15/17 11/28/18 Days ml albuterol sulfate HFA 90 2 puff INHALATION Q4H PRN PRN #1 07/02/18 11/28/18 mcg/actuation aerosol inhaler inh guaifenesin [Mucus Relief] 400 mg PO Q4H PRN 09/09/18 11/28/18 Symbicort 10.2 gm INHALATION BID #3 inhaler 09/21/18 11/28/18 pantoprazole 40 mg PO DAILY #90 tab 09/21/18 11/28/18 quetiapine 50 mg tablet 50 mg PO QHS #90 tab 09/26/18 11/28/18 tiotropium bromide 18 mcg capsule 1 cap INHALATION DAILY #90 inh 09/26/18 11/28/18 with inhalation device fluoxetine 20 mg tablet 20 mg PO DAILY #90 tab-cap 10/02/18 11/28/18 quetiapine 25 mg tablet 25 mg PO BID #20 tab 10/17/18 11/28/18 meclizine 25 mg PO TID PRN #20 tab 10/23/18 11/28/18 docusate sodium 100 mg tablet 100 mg PO DAILY 10/30/18 11/28/18 diphenhydramine HCl [Benadryl] 25 mg PO Q6H PRN 11/01/18 11/28/18 lorazepam 1 mg tablet 1 mg PO Q6H PRN tab 11/09/18 11/28/18 ondansetron 4 mg PO TID-QID PRN #30 tab 11/12/18 11/28/18 morphine 15 mg immediate release 7.5 mg PO QDAY PRN #4 tab MDD 15 11/13/18 11/28/18 tablet hydroxyzine HCl 25 mg tablet 25 mg PO TID PRN tab 11/20/18 11/28/18 prednisone 20 mg tablet 20 mg PO BID 11/20/18 11/28/18 magnesium citrate oral solution 75 ml PO DAILY PRN #296 ml 11/28/18 11/28/18 docusate sodium [Colace] 200 mg PO QHS PRN #6 cap 11/29/18 Previous Rx's Medication Instructions Recorded [facility] Advantage kit 10/15/17 albuterol sulfate 2.5 mg INHALATION Q4H PRN PRN 30 10/15/17 Days ml albuterol sulfate HFA 90 2 puff INHALATION Q4H PRN PRN #1 07/02/18 mcg/actuation aerosol inhaler inh Symbicort 10.2 gm INHALATION BID #3 inhaler 09/21/18 pantoprazole 40 mg PO DAILY #90 tab 09/21/18 quetiapine 50 mg tablet 50 mg PO QHS #90 tab 09/26/18 tiotropium bromide 18 mcg capsule 1 cap INHALATION DAILY #90 inh 09/26/18 with inhalation device fluoxetine 20 mg tablet 20 mg PO DAILY #90 tab-cap 10/02/18 quetiapine 25 mg tablet 25 mg PO BID #20 tab 10/17/18 meclizine 25 mg PO TID PRN #20 tab 10/23/18 ondansetron 4 mg PO TID-QID PRN #30 tab 11/12/18 morphine 15 mg immediate release 7.5 mg PO QDAY PRN #4 tab MDD 15 11/13/18 tablet magnesium citrate oral solution 75 ml PO DAILY PRN #296 ml 11/28/18 docusate sodium [Colace] 200 mg PO QHS PRN #6 cap 11/29/18 Allergies Allergy/AdvReac Type Severity Reaction Status Date / Time No Known Allergies Allergy Verified 11/28/18 19:49 General Stated Complaint: Sorethroat FLASH: 4 Review of Systems Review of Systems All systems reviewed & are unremarkable except as noted in HPI and below Constitutional Denies chills, Denies fever(s) and Denies weakness ENT Denies change in voice Cardiovascular Denies chest pain and Denies dyspnea Respiratory Denies cough and Denies dyspnea Gastrointestinal Denies abdominal pain, Denies nausea and Denies vomiting Neurologic Denies weakness [facility] Social History Smoking/Tobacco Use Status: Former Tobacco Use Quit Date: 06/05/98 Tobacco: How many years used: 30 Alcohol Intake: former Drug use: Never 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 Adopted: No Foster care: No Household members: family Housing: house Number of Children: 0 Communication Needs: None current occupation: not working Current gender identity: male What type of physical activity do you participate in: none and other Details: started lifting weights Frequency: daily Seatbelt use: always Drive intox or ride w/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 Exam Const General: no acute distress Orientation: alert HENMT Head: normal to inspection Ears: external ears normal General nose exam: external nose normal Mouth: moist mucous membranes Eyes General: appearance normal, both eyes and all related structures Neck Neck: normal visual inspection Resp Effort & Inspection: normal respiratory effort and able to speak in complete sentences Cardio Rate: regular rate Skin General skin exam: no rashes or lesions noted Neuro General: alert and oriented x3 Extrem General: normal to inspection Psych Mental Status: mental status grossly normal Course Vital Signs Temperature 37.1 C 11/30/18 17:12 Pulse 76 11/30/18 17:12 Respiratory Rate 14 11/30/18 17:12 Blood Pressure 144/97 H 11/30/18 17:12 Pulse Oximetry 98 11/30/18 17:12 Temperature 37.1 C 11/30/18 17:12 Temperature Source Skin 11/30/18 17:12 Pulse 76 11/30/18 17:12 Respiratory Rate 14 11/30/18 17:12 Respiratory Effort 11/30/18 17:13 Blood Pressure 144/97 H 11/30/18 17:12 Blood Pressure Position Sitting 11/30/18 17:12 Pulse Oximetry 98 11/30/18 17:12 Oxygen Delivery Method Room Air 11/30/18 17:12 Oxygen Flow Rate 0 11/30/18 17:12 Pain Level 3 11/30/18 17:12
[2018-11-30 17:29] VITALS: BP 144/97; PULSE 76; RESP 14; TEMP 37.1; O2SAT 98
== END 2018-11-30 17:47 | disposition home or self-care (01) ==
PROVIDERS: Emergency Provider Emergency Medicine; PCP Internal Medicine
DX: J02.9 Acute pharyngitis, unspecified (principal); R09.81 Nasal congestion; F41.9 Anxiety disorder, unspecified; J44.9 Chronic obstructive pulmonary disease, unspecified
CPT/HCPCS: 99282

== ENCOUNTER 2018-12-01 15:42 | Emergency (ER) | payer MEDICAID, SELFPAY ==
[2018-12-01] VITALS (17 sets, daily range): BP systolic 102–139; BP diastolic 75–85; PULSE 63–74; RESP 10–41; TEMP 36.7; O2SAT 94–99
--- NOTE | 2018-12-01 16:07 | W.ED.GENAD ---
Discharge Plan Disposition Patient Disposition: HOME Condition: Stable Discharge Details Chief Complaint: Chest Pain Clinical Impression: Anxiety Primary Care Provider: Deborah Chow ED Provider: Mj Chen Home Meds and New Rx's Prescriptions: No Action quetiapine [Seroquel] 50 mg tablet 50 mg PO QHS Qty: 90 RF: 0 Spiriva with HandiHaler 18 mcg capsule, w/inhalation device 1 cap Inhalation DAILY Qty: 90 RF: 0 docusate sodium [Stool Softener] 100 mg tablet 100 mg PO DAILY RF: 0 morphine 15 mg tablet 7.5 mg PO QDAY MDD 15 PRN (Reason: dyspnea) Qty: 4 RF: 0 prednisone 20 mg tablet 20 mg PO BID RF: 0 magnesium citrate solution 75 ml PO DAILY PRN (Reason: constipation) Qty: 296 RF: 1 albuterol sulfate [ProAir HFA] 90 mcg/actuation HFA aerosol inhaler 2 puff Inhalation Q4H PRN PRN (Reason: Shortness Of Breath) Qty: 1 RF: 1 fluoxetine 20 mg tablet 20 mg PO DAILY Qty: 90 RF: 3 quetiapine [Seroquel] 25 mg tablet 25 mg PO BID Qty: 20 RF: 0 lorazepam 1 mg tablet 1 mg PO Q6H PRN (Reason: anxiety) RF: 0 hydroxyzine HCl 25 mg tablet 25 mg PO TID PRNRF: 0 OptiChamber Advantage 1 EACH spacer 1 ea Miscellaneous DIRECTED RF: 0 albuterol sulfate 2.5 MG/3 ML solution for nebulization 2.5 mg Inhalation Q4H PRN PRN (Reason: Shortness Of Breath) 30 Days RF: 0 guaifenesin [Mucus Relief] 400 mg Tablet 400 mg PO Q4H PRNRF: 0 docusate sodium [Colace] 100 mg capsule 200 mg PO QHS PRN (Reason: constipation) Qty: 6 RF: 0 pantoprazole 40 mg tablet,delayed release (DR/EC) 40 mg PO DAILY Qty: 90 RF: 3 Symbicort 10.2 GM HFA aerosol inhaler 10.2 gm Inhalation BID Qty: 3 RF: 3 diphenhydramine HCl [Benadryl] 25 MG capsule 25 mg PO Q6H PRNRF: 0 meclizine 25 mg tablet 25 mg PO TID PRN (Reason: dizziness) Qty: 20 RF: 0 ondansetron 4 mg tablet,disintegrating 4 mg PO TID-QID PRN (Reason: nausea and vomiting) Qty: 30 RF: 0 Discharge Instructions Instructions: Anxiety (ED) Additional Instructions: follow up with your primary care provider within 1-2 weeks Medical Decision Making 63 yo male comes in with chief complaint of shortness of breath. He states it feels tight and can't get air in. He walked in from the parking lot and into the room speaking in full sentences in no distress and has clear lungs. He has no distant heart sounds, jvd, pedal edema so doubt pericardial effusion or chf. No fever or cough so doubt pna. no chest pain or pressure so doubt acs and do not feel w/u for this indicated at this time. No hypoxia, tachycardia or evidence of dvt so doubt PE. I suspect his symptoms are due to his chronic anxiety. VS stable, will dc and advised f/u with pcp and return precautions given Differential Diagnosis anxiety, copd ECG Data Attestation: I personally reviewed and interpreted this ECG (s) as follows: Prior ECG tracings: available for review Interpretation: sinus rhythm, rate of 70, pr 142, no acute st t wave ischemic changes HPI General Mode of arrival: ambulatory. Date/Time Provider Initiated Documentation: 12/01/18 16:04. Limitations to Documentation: no limitations. Information obtained by: patient. History of Present Illness 63 year old M presents to the emergency department with the chief complaint of shortness of breath, described as mild, Patient started experiencing this year(s) (5) and it has been constant. No relieving factors improve symptom(s), No exacerbating factors reported . Patient notes no other symptoms.. Patient did receive the following treatments prior to arrival, none Related Data Home Medications Medication Instructions Recorded Confirmed [employer] Advantage kit 10/15/17 12/01/18 albuterol sulfate 2.5 mg INHALATION Q4H PRN PRN 30 10/15/17 12/01/18 Days ml albuterol sulfate HFA 90 2 puff INHALATION Q4H PRN PRN #1 07/02/18 12/01/18 mcg/actuation aerosol inhaler inh guaifenesin [Mucus Relief] 400 mg PO Q4H PRN 09/09/18 12/01/18 Symbicort 10.2 gm INHALATION BID #3 inhaler 04/19/19 06/29/19 pantoprazole 40 mg PO DAILY #90 tab 09/21/18 12/01/18 quetiapine 50 mg tablet 50 mg PO QHS #90 tab 09/26/18 12/01/18 tiotropium bromide 18 mcg capsule 1 cap INHALATION DAILY #90 inh 09/26/18 12/01/18 with inhalation device fluoxetine 20 mg tablet 20 mg PO DAILY #90 tab-cap 10/02/18 12/01/18 quetiapine 25 mg tablet 25 mg PO BID #20 tab 10/17/18 12/01/18 meclizine 25 mg PO TID PRN #20 tab 10/23/18 12/01/18 docusate sodium 100 mg tablet 100 mg PO DAILY 10/30/18 12/01/18 diphenhydramine HCl [Benadryl] 25 mg PO Q6H PRN 11/01/18 12/01/18 lorazepam 1 mg tablet 1 mg PO Q6H PRN tab 11/09/18 12/01/18 ondansetron 4 mg PO TID-QID PRN #30 tab 11/12/18 12/01/18 morphine 15 mg immediate release 7.5 mg PO QDAY PRN #4 tab MDD 15 11/13/18 12/01/18 tablet hydroxyzine HCl 25 mg tablet 25 mg PO TID PRN tab 11/20/18 12/01/18 prednisone 20 mg tablet 20 mg PO BID 11/20/18 12/01/18 magnesium citrate oral solution 75 ml PO DAILY PRN #296 ml 11/28/18 12/01/18 docusate sodium [Colace] 200 mg PO QHS PRN #6 cap 11/29/18 12/01/18 Previous Rx's Medication Instructions Recorded [employer] Advantage kit 10/15/17 albuterol sulfate 2.5 mg INHALATION Q4H PRN PRN 30 10/15/17 Days ml albuterol sulfate HFA 90 2 puff INHALATION Q4H PRN PRN #1 07/02/18 mcg/actuation aerosol inhaler inh Symbicort 10.2 gm INHALATION BID #3 inhaler 09/21/18 pantoprazole 40 mg PO DAILY #90 tab 09/21/18 quetiapine 50 mg tablet 50 mg PO QHS #90 tab 09/26/18 tiotropium bromide 18 mcg capsule 1 cap INHALATION DAILY #90 inh 09/26/18 with inhalation device fluoxetine 20 mg tablet 20 mg PO DAILY #90 tab-cap 10/02/18 quetiapine 25 mg tablet 25 mg PO BID #20 tab 10/17/18 meclizine 25 mg PO TID PRN #20 tab 10/23/18 ondansetron 4 mg PO TID-QID PRN #30 tab 11/12/18 morphine 15 mg immediate release 7.5 mg PO QDAY PRN #4 tab MDD 15 11/13/18 tablet magnesium citrate oral solution 75 ml PO DAILY PRN #296 ml 11/28/18 docusate sodium [Colace] 200 mg PO QHS PRN #6 cap 11/29/18 Allergies Allergy/AdvReac Type Severity Reaction Status Date / Time No Known Allergies Allergy Verified 12/01/18 15:54 General Stated Complaint: Chest Pain FLSAH: 3 Review of Systems Review of Systems All systems reviewed & are unremarkable except as noted in HPI and below Constitutional Denies chills, Denies fever(s) and Denies weakness Cardiovascular Denies chest pain Gastrointestinal Denies abdominal pain, Denies nausea and Denies vomiting Neurologic Denies weakness PFS Social History Smoking/Tobacco Use Status: Former Tobacco Use Quit Date: 06/05/98 Tobacco: How many years used: 30 Alcohol Intake: former Drug use: Never 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 Adopted: No Foster care: No Household members: family Housing: house Number of Children: 0 Communication Needs: None current occupation: not working Current gender identity: male What type of physical activity do you participate in: none and other Details: started lifting weights Frequency: daily Seatbelt use: always 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 Exam Const General: no acute distress Orientation: alert HENMT Head: normal to inspection Ears: external ears normal General nose exam: external nose normal Mouth: moist mucous membranes Eyes General: appearance normal, both eyes and all related structures Neck Neck: normal visual inspection Resp Effort & Inspection: normal respiratory effort and able to speak in complete sentences Cardio Rate: regular rate Skin General skin exam: no rashes or lesions noted Neuro General: alert and oriented x3 Extrem General: normal to inspection Psych Mental Status: mental status grossly normal Course Vital Signs Temperature 36.7 C 12/01/18 15:50 Pulse 72 12/01/18 15:50 Respiratory Rate 18 12/01/18 15:50 Blood Pressure 132/78 12/01/18 15:50 Pulse Oximetry 98 12/01/18 15:50 Temperature 36.7 C 12/01/18 15:50 Temperature Source Temporal Artery Scan 12/01/18 15:50 Pulse 72 12/01/18 15:50 Respiratory Rate 18 12/01/18 15:50 Respiratory Effort Non-Labored 12/01/18 15:52 Blood Pressure 132/78 12/01/18 15:50 Blood Pressure Position Supine 12/01/18 15:50 Pulse Oximetry 98 12/01/18 15:50 Oxygen Delivery Method Room Air 12/01/18 15:50 Oxygen Flow Rate 0 12/01/18 15:50 Pain Level 8 12/01/18 15:50
--- NOTE | 2018-12-01 16:11 | ED.GENADUL_ITS ---
Discharge Plan Disposition Patient Disposition: HOME Condition: Stable Discharge Details Chief Complaint: Chest Pain Clinical Impression: Anxiety Primary Care Provider: Deborah Chow ED Provider: Mj Chen Home Meds and New Rx's Prescriptions: No Action quetiapine [Seroquel] 50 mg tablet 50 mg PO QHS Qty: 90 RF: 0 Spiriva with HandiHaler 18 mcg capsule, w/inhalation device 1 cap Inhalation DAILY Qty: 90 RF: 0 docusate sodium [Stool Softener] 100 mg tablet 100 mg PO DAILY RF: 0 morphine 15 mg tablet 7.5 mg PO QDAY MDD 15 PRN (Reason: dyspnea) Qty: 4 RF: 0 prednisone 20 mg tablet 20 mg PO BID RF: 0 magnesium citrate solution 75 ml PO DAILY PRN (Reason: constipation) Qty: 296 RF: 1 albuterol sulfate [ProAir HFA] 90 mcg/actuation HFA aerosol inhaler 2 puff Inhalation Q4H PRN PRN (Reason: Shortness Of Breath) Qty: 1 RF: 1 fluoxetine 20 mg tablet 20 mg PO DAILY Qty: 90 RF: 3 quetiapine [Seroquel] 25 mg tablet 25 mg PO BID Qty: 20 RF: 0 lorazepam 1 mg tablet 1 mg PO Q6H PRN (Reason: anxiety) RF: 0 hydroxyzine HCl 25 mg tablet 25 mg PO TID PRNRF: 0 OptiChamber Advantage 1 EACH spacer 1 ea Miscellaneous DIRECTED RF: 0 albuterol sulfate 2.5 MG/3 ML solution for nebulization 2.5 mg Inhalation Q4H PRN PRN (Reason: Shortness Of Breath) 30 Days RF: 0 guaifenesin [Mucus Relief] 400 mg Tablet 400 mg PO Q4H PRNRF: 0 docusate sodium [Colace] 100 mg capsule 200 mg PO QHS PRN (Reason: constipation) Qty: 6 RF: 0 pantoprazole 40 mg tablet,delayed release (DR/EC) 40 mg PO DAILY Qty: 90 RF: 3 Symbicort 10.2 GM HFA aerosol inhaler 10.2 gm Inhalation BID Qty: 3 RF: 3 diphenhydramine HCl [Benadryl] 25 MG capsule 25 mg PO Q6H PRNRF: 0 meclizine 25 mg tablet 25 mg PO TID PRN (Reason: dizziness) Qty: 20 RF: 0 ondansetron 4 mg tablet,disintegrating 4 mg PO TID-QID PRN (Reason: nausea and vomiting) Qty: 30 RF: 0 Discharge Instructions Instructions: Anxiety (ED) Additional Instructions: follow up with your primary care provider within 1-2 weeks Medical Decision Making 63 yo male comes in with chief complaint of shortness of breath. He states it feels tight and can't get air in. He walked in from the parking lot and into the room speaking in full sentences in no distress and has clear lungs. He has no distant heart sounds, jvd, pedal edema so doubt pericardial effusion or chf. No fever or cough so doubt pna. no chest pain or pressure so doubt acs and do not feel w/u for this indicated at this time. No hypoxia, tachycardia or evidence of dvt so doubt PE. I suspect his symptoms are due to his chronic anxiety. VS sta ble, will dc and advised f/u with pcp and return precautions given Differential Diagnosis anxiety, copd ECG Data Attestation: I personally reviewed and interpreted this ECG (s) as follows: Prior ECG tracings: available for review Interpretation: sinus rhythm, rate of 70, pr 142, no acute st t wave ischemic changes HPI General Mode of arrival: ambulatory . Date/Time Provider Initiated Documentation: 12/01/18 16:04 . Limitations to Documentation: no limitations . Information obtained by: patient . History of Present Illness 63 year old M presents to the emergency department with the chief complaint of shortness of breath, described as mild, Patient started experiencing this year(s) (5) and it has been constant. No relieving factors improve symptom(s), No exacerbating factors reported . Patient notes no other symptoms.. Patient did receive the following treatments prior to arrival, none Related Data Home Medications Medication Instructions Recorded Confirmed [employer] Advantage kit 10/15/17 12/01/18 albuterol sulfate 2.5 mg INHALATION Q4H PRN PRN 30 10/15/17 12/01/18 Days ml albuterol sulfate HFA 90 2 puff INHALATION Q4H PRN PRN #1 07/02/18 12/01/18 mcg/actuation aerosol inhaler inh guaifenesin [Mucus Relief] 400 mg PO Q4H PRN 09/09/18 12/01/18 Symbicort 10.2 gm INHALATION BID #3 inhaler 09/21/18 12/01/18 pantoprazole 40 mg PO DAILY #90 tab 09/21/18 12/01/18 quetiapine 50 mg tablet 50 mg PO QHS #90 tab 09/26/18 12/01/18 tiotropium bromide 18 mcg capsule 1 cap INHALATION DAILY #90 inh 09/26/18 12/01/18 with inhalation device fluoxetine 20 mg tablet 20 mg PO DAILY #90 tab-cap 10/02/18 12/01/18 quetiapine 25 mg tablet 25 mg PO BID #20 tab 10/17/18 12/01/18 meclizine 25 mg PO TID PRN #20 tab 10/23/18 12/01/18 docusate sodium 100 mg tablet 100 mg PO DAILY 10/30/18 12/01/18 diphenhydramine HCl [Benadryl] 25 mg PO Q6H PRN 11/01/18 12/01/18 lorazepam 1 mg tablet 1 mg PO Q6H PRN tab 11/09/18 12/01/18 ondansetron 4 mg PO TID-QID PRN #30 tab 11/12/18 12/01/18 morphine 15 mg immediate release 7.5 mg PO QDAY PRN #4 tab MDD 15 11/13/18 12/01/18 tablet hydroxyzine HCl 25 mg tablet 25 mg PO TID PRN tab 11/20/18 12/01/18 prednisone 20 mg tablet 20 mg PO BID 11/20/18 12/01/18 magnesium citrate oral solution 75 ml PO DAILY PRN #296 ml 11/28/18 12/01/18 docusate sodium [Colace] 200 mg PO QHS PRN #6 cap 11/29/18 12/01/18 Previous Rx's Medication Instructions Recorded [employer]amber Advantage kit 10/15/17 albuterol sulfate 2.5 mg INHALATION Q4H PRN PRN 30 10/15/17 Days ml albuterol sulfate HFA 90 2 puff INHALATION Q4H PRN PRN #1 07/02/18 mcg/actuation aerosol inhaler inh Symbicort 10.2 gm INHALATION BID #3 inhaler 09/21/18 pantoprazole 40 mg PO DAILY #90 tab 09/21/18 quetiapine 50 mg tablet 50 mg PO QHS #90 tab 09/26/18 tiotropium bromide 18 mcg capsule 1 cap INHALATION DAILY #90 inh 09/26/18 with inhalation device fluoxetine 20 mg tablet 20 mg PO DAILY #90 tab-cap 10/02/18 quetiapine 25 mg tablet 25 mg PO BID #20 tab 10/17/18 meclizine 25 mg PO TID PRN #20 tab 10/23/18 ondansetron 4 mg PO TID-QID PRN #30 tab 11/12/18 morphine 15 mg immediate release 7.5 mg PO QDAY PRN #4 tab MDD 15 11/13/18 tablet magnesium citrate oral solution 75 ml PO DAILY PRN #296 ml 11/28/18 docusate sodium [Colace] 200 mg PO QHS PRN #6 cap 11/29/18 Allergies Allergy/AdvReac Type Severity Reaction Status Date / Time No Known Allergies Allergy Verified 12/01/18 15:54 General Stated Complaint: Chest Pain FLASH: 3 Review of Systems Review of Systems All systems reviewed & are unremarkable except as noted in HPI and below Constitutional Denies chills, Denies fever(s) and Denies weakness Cardiovascular Denies chest pain Gastrointestinal Denies abdominal pain, Denies nausea and Denies vomiting Neurologic Denies weakness PFS Social History Smoking/Tobacco Use Status: Former Tobacco Use Quit Date: 06/05/98 Tobacco: How many years used: 30 Alcohol Intake: former Drug use: Never 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 Adopted: No Foster care: No Household members: family Housing: house Number of Children: 0 Communication Needs: None current occupation: not working Current gender identity: male What type of physical activity do you participate in: none and other Details: started lifting weights Frequency: daily Seatbelt use: always 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 Exam Const General: no acute distress Orientation: alert HENMT Head: normal to inspection Ears: external ears normal General nose exam: external nose normal Mouth: moist mucous membranes Eyes General: appearance normal, both eyes and all related structures Neck Neck: normal visual inspection Resp Effort & Inspection: normal respiratory effort and able to speak in complete sentences Cardio Rate: regular rate Skin General skin exam: no rashes or lesions noted Neuro General: alert and oriented x3 Extrem General: normal to inspection Psych Mental Status: mental status grossly normal Course Vital Signs Temperature 36.7 C 12/01/18 15:50 Pulse 72 12/01/18 15:50 Respiratory Rate 18 12/01/18 15:50 Blood Pressure 132/78 12/01/18 15:50 Pulse Oximetry 98 12/01/18 15:50 Temperature 36.7 C 12/01/18 15:50 Temperature Source Temporal Artery Scan 12/01/18 15:50 Pulse 72 12/01/18 15:50 Respiratory Rate 18 12/01/18 15:50 Respiratory Effort Non-Labored 12/01/18 15:52 Blood Pressure 132/78 12/01/18 15:50 Blood Pressure Position Supine 12/01/18 15:50 Pulse Oximetry 98 12/01/18 15:50 Oxygen Delivery Method Room Air 12/01/18 15:50 Oxygen Flow Rate 0 12/01/18 15:50 Pain Level 8 12/01/18 15:50
--- NOTE | 2018-12-01 16:38 | NUR.NOTE ---
Nursing Note: Pt outside ER door in results waiting area hallway on knees--states is very dizzy. BP 137/85 pulse 65 resp 18 [id number] 96. layed down on ER stretcher--rechecked by Dr Chen. Told by that he could go but pt states I'm not ready to leave now. I think something is going on.
== END 2018-12-01 17:15 | disposition home or self-care (01) ==
PROVIDERS: Emergency Provider Emergency Medicine; PCP Internal Medicine
DX: F41.9 Anxiety disorder, unspecified (principal); Z87.891 Personal history of nicotine dependence
CPT/HCPCS: 93005; 99284; 93010; 99283

== ENCOUNTER 2018-12-02 10:29 | Emergency (ER) | payer MEDICAID, SELFPAY ==
[2018-12-02 10:32] VITALS: BP 144/97; PULSE 75; RESP 16; TEMP 36.7; O2SAT 98
[2018-12-02 10:46] VITALS: RESP 16
--- NOTE | 2018-12-02 11:00 | ED.GENADUL_ITS ---
Discharge Plan Disposition Patient Disposition: HOME Discharge Details Chief Complaint: SOB Clinical Impression: Dyspnea, Constipation Primary Care Provider: Deborah Chow ED Provider: Dmitri Estevez Home Meds and New Rx's Prescriptions: Continued quetiapine [Seroquel] 50 mg tablet 50 mg PO QHS Qty: 90 RF: 0 Spiriva with HandiHaler 18 mcg capsule, w/inhalation device 1 cap Inhalation DAILY Qty: 90 RF: 0 docusate sodium [Stool Softener] 100 mg tablet 100 mg PO DAILY RF: 0 morphine 15 mg tablet 7.5 mg PO QDAY MDD 15 PRN (Reason: dyspnea) Qty: 4 RF: 0 prednisone 20 mg tablet 20 mg PO BID RF: 0 magnesium citrate solution 75 ml PO DAILY PRN (Reason: constipation) Qty: 296 RF: 1 albuterol sulfate [ProAir HFA] 90 mcg/actuation HFA aerosol inhaler 2 puff Inhalation Q4H PRN PRN (Reason: Shortness Of Breath) Qty: 1 RF: 1 fluoxetine 20 mg tablet 20 mg PO DAILY Qty: 90 RF: 3 quetiapine [Seroquel] 25 mg tablet 25 mg PO BID Qty: 20 RF: 0 lorazepam 1 mg tablet 1 mg PO Q6H PRN (Reason: anxiety) RF: 0 hydroxyzine HCl 25 mg tablet 25 mg PO TID PRNRF: 0 OptiChamber Advantage 1 EACH spacer 1 ea Miscellaneous DIRECTED RF: 0 albuterol sulfate 2.5 MG/3 ML solution for nebulization 2.5 mg Inhalation Q4H PRN PRN (Reason: Shortness Of Breath) 30 Days RF: 0 guaifenesin [Mucus Relief] 400 mg Tablet 400 mg PO Q4H PRNRF: 0 docusate sodium [Colace] 100 mg capsule 200 mg PO QHS PRN (Reason: constipation) Qty: 6 RF: 0 pantoprazole 40 mg tablet,delayed release (DR/EC) 40 mg PO DAILY Qty: 90 RF: 3 Symbicort 10.2 GM HFA aerosol inhaler 10.2 gm Inhalation BID Qty: 3 RF: 3 diphenhydramine HCl [Benadryl] 25 MG capsule 25 mg PO Q6H PRNRF: 0 meclizine 25 mg tablet 25 mg PO TID PRN (Reason: dizziness) Qty: 20 RF: 0 ondansetron 4 mg tablet,disintegrating 4 mg PO TID-QID PRN (Reason: nausea and vomiting) Qty: 30 RF: 0 Discharge Instructions Instructions: Dyspnea (ED), Constipation (ED) Additional Instructions: Fortunately, your medical exam today does not reveal any acute disease process accounting for your sensation of shortness of breath. Your lungs are clear to stethoscope exam and your oxygen is at 98% with a normal breathing rate. Take your albuterol at home as needed for chest tightness and wheezing should this develop. Follow-up with your primary care provider for ongoing management as well as your care team. For your constipation, I recommend [id number] Colace as needed. Medical Decision Making Iggy is a well-appearing, pleasant and cooperative 63-year-old gentleman who we know as he is here they are very regular basis for various complaints. Today he is in no acute distress, with normal vitals, clear lungs, without any labored breathing though he states he feels like he is not breathing well. I have instructed him to follow-up with his primary care provider for reevaluation as well as assistance with care management. I advised him to return if his symptoms worsen or for any additional complaints. He will trial [id number] stool softeners as needed for constipation. He has albuterol at home which she will use as needed for chest tightness or wheezing. Medical Records Medical records reviewed: Yes I reviewed the patient's medical records. DIANE Parkinson presents to the emergency department today for evaluation of constipation as well as sensation of shortness of breath. Symptoms ongoing for the past 3 days. Currently asymptomatic. He states that he feels like something is wrong but he does not know what. He denies chest pain, cough, chest tightness, wheezing, palpitations, dizziness, weakness, back pain. He does have albuterol at home which he takes as needed but has not taken this today. Is currently not taking anything for constipation. General Date/Time Provider Initiated Documentation: 12/02/18 10:37 . Related Data Home Medications Medication Instructions Recorded Confirmed [employer] kit 10/15/17 12/01/18 albuterol sulfate 2.5 mg INHALATION Q4H PRN PRN 30 10/15/17 12/02/18 Days ml albuterol sulfate HFA 90 2 puff INHALATION Q4H PRN PRN #1 07/02/18 12/02/18 mcg/actuation aerosol inhaler inh guaifenesin [Mucus Relief] 400 mg PO Q4H PRN 09/09/18 12/02/18 Symbicort 10.2 gm INHALATION BID #3 inhaler 09/21/18 12/02/18 pantoprazole 40 mg PO DAILY #90 tab 09/21/18 12/02/18 quetiapine 50 mg tablet 50 mg PO QHS #90 tab 09/26/18 12/02/18 tiotropium bromide 18 mcg capsule 1 cap INHALATION DAILY #90 inh 09/26/18 12/02/18 with inhalation device fluoxetine 20 mg tablet 20 mg PO DAILY #90 tab-cap 10/02/18 12/02/18 quetiapine 25 mg tablet 25 mg PO BID #20 tab 10/17/18 12/02/18 meclizine 25 mg PO TID PRN #20 tab 10/23/18 12/02/18 docusate sodium 100 mg tablet 100 mg PO DAILY 10/30/18 12/02/18 diphenhydramine HCl [Benadryl] 25 mg PO Q6H PRN 11/01/18 12/02/18 lorazepam 1 mg tablet 1 mg PO Q6H PRN tab 11/09/18 12/02/18 ondansetron 4 mg PO TID-QID PRN #30 tab 11/12/18 12/02/18 morphine 15 mg immediate release 7.5 mg PO QDAY PRN #4 tab MDD 15 11/13/18 12/02/18 tablet hydroxyzine HCl 25 mg tablet 25 mg PO TID PRN tab 11/20/18 12/02/18 prednisone 20 mg tablet 20 mg PO BID 11/20/18 12/02/18 magnesium citrate oral solution 75 ml PO DAILY PRN #296 ml 11/28/18 12/02/18 docusate sodium [Colace] 200 mg PO QHS PRN #6 cap 11/29/18 12/02/18 Previous Rx's Medication Instructions Recorded [facility] Advantage kit 10/15/17 albuterol sulfate 2.5 mg INHALATION Q4H PRN PRN 30 10/15/17 Days ml albuterol sulfate HFA 90 2 puff INHALATION Q4H PRN PRN #1 07/02/18 mcg/actuation aerosol inhaler inh Symbicort 10.2 gm INHALATION BID #3 inhaler 09/21/18 pantoprazole 40 mg PO DAILY #90 tab 09/21/18 quetiapine 50 mg tablet 50 mg PO QHS #90 tab 09/26/18 tiotropium bromide 18 mcg capsule 1 cap INHALATION DAILY #90 inh 09/26/18 with inhalation device fluoxetine 20 mg tablet 20 mg PO DAILY #90 tab-cap 10/02/18 quetiapine 25 mg tablet 25 mg PO BID #20 tab 10/17/18 meclizine 25 mg PO TID PRN #20 tab 10/23/18 ondansetron 4 mg PO TID-QID PRN #30 tab 11/12/18 morphine 15 mg immediate release 7.5 mg PO QDAY PRN #4 tab MDD 15 11/13/18 tablet magnesium citrate oral solution 75 ml PO DAILY PRN #296 ml 11/28/18 docusate sodium [Colace] 200 mg PO QHS PRN #6 cap 11/29/18 Allergies Allergy/AdvReac Type Severity Reaction Status Date / Time No Known Allergies Allergy Verified 12/02/18 10:34 General Stated Complaint: SOB FLASH: 4 Review of Systems Constitutional Denies chills, Denies fatigue, Denies fever(s) and Denies lethargy Eyes Denies loss of vision ENT Denies nasal congestion and Denies sore throat Cardiovascular Denies chest pain and Denies dyspnea Respiratory Denies cough and Denies dyspnea Gastrointestinal Denies abdominal pain, Denies nausea and Denies vomiting Musculoskeletal Denies back pain, Denies muscle weakness and Denies numbness Integumentary/Breasts Denies rash Neurologic Denies focal weakness, Denies loss of vision and Denies numbness Endocrine Denies fatigue Hematologic/Lymphatic Denies easy bruising PFSH Social History Smoking/Tobacco Use Status: Former Tobacco Use Quit Date: 06/05/98 Tobacco: How many years used: 30 Alcohol Intake: former Drug use: Never 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 Adopted: No Foster care: No Household members: family Housing: house Number of Children: 0 Communication Needs: None current occupation: not working Current gender identity: male What type of physical activity do you participate in: none and other Details: started lifting weights Frequency: daily Seatbelt use: always Drive 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 Exam Const General: cooperative, healthy appearing and no acute distress HENMT Head: normal to inspection Ears: hearing grossly normal bilaterally Eyes EOM: EOM intact bilaterally Neck Neck: normal visual inspection Resp Effort & Inspection: normal respiratory effort Auscultation: clear to auscultation bilaterally Cardio Rate: regular rate Rhythm: regular rhythm Heart Sounds: no murmurs GI Palpation: soft and nontender Skin General skin exam: no rashes or lesions noted Neuro General: alert, awake and oriented x3 Speech: speech normal Gait: normal gait Extrem General: normal to inspection Course Vital Signs Temperature 36.7 C 12/02/18 10:32 Pulse 75 12/02/18 10:32 Respiratory Rate 16 12/02/18 10:32 Blood Pressure 144/97 H 12/02/18 10:32 Pulse Oximetry 98 12/02/18 10:32 Temperature 36.7 C 12/02/18 10:32 Temperature Source Skin 12/02/18 10:32 Pulse 75 12/02/18 10:32 Respiratory Rate 16 12/02/18 10:46 Respiratory Effort 12/02/18 10:46 Respiratory Depth Normal 12/02/18 10:46 Respiratory Pattern Normal 12/02/18 10:46 Blood Pressure 144/97 H 12/02/18 10:32 Blood Pressure Position Sitting 12/02/18 10:32 Pulse Oximetry 98 12/02/18 10:32 Oxygen Delivery Method Room Air 12/02/18 10:32 Oxygen Flow Rate 0 12/02/18 10:32
[2018-12-02 11:19] VITALS: BP 119/75; PULSE 71; RESP 18; TEMP 36.9; O2SAT 97
== END 2018-12-02 11:20 | disposition home or self-care (01) ==
PROVIDERS: Emergency Provider Physician Assistant Medical; PCP Internal Medicine
DX: R06.00 Dyspnea, unspecified (principal); K59.00 Constipation, unspecified
CPT/HCPCS: 99282

== ENCOUNTER 2018-12-02 14:52 | Emergency (ER) | payer MEDICAID, SELFPAY ==
[2018-12-02] VITALS (16 sets, daily range): BP systolic 132–141; BP diastolic 77–90; PULSE 57–83; RESP 11–31; TEMP 37–37.1; O2SAT 98–100
--- NOTE | 2018-12-02 15:10 | DI.CT_ITS ---
SYMPTOMS/DIAGNOSIS: ABD PAIN, BLOATING, EPIGASTRIC PAIN CT OF THE ABDOMEN AND PELVIS: Comparison is made with [id number]. The lung bases are clear. The heart size is normal. There are tiny densities again noted at the dome of the liver. A small cystic area is seen at the superior aspect of the pancreas, unchanged. There is no current inflammation of the pancreas, pancreatic ductal dilatation or biliary dilatation. The spleen, adrenals and kidneys are unremarkable. There is a moderate amount of stool. There is no bowel wall thickening or abnormal distension. The bladder and prostate are unremarkable. IMPRESSION: No acute abnormality.
--- NOTE | 2018-12-02 15:12 | W.ED.GENAD ---
Discharge Plan Disposition Patient Disposition: HOME Condition: Improving Discharge Details Chief Complaint: Abd Prob Clinical Impression: Abdominal pain Primary Care Provider: Deborah Chow ED Provider: Ean Lyons Home Meds and New Rx's Prescriptions: Continued quetiapine [Seroquel] 50 mg tablet 50 mg PO QHS Qty: 90 RF: 0 Spiriva with HandiHaler 18 mcg capsule, w/inhalation device 1 cap Inhalation DAILY Qty: 90 RF: 0 docusate sodium [Stool Softener] 100 mg tablet 100 mg PO DAILY RF: 0 morphine 15 mg tablet 7.5 mg PO QDAY MDD 15 PRN (Reason: dyspnea) Qty: 4 RF: 0 prednisone 20 mg tablet 20 mg PO BID RF: 0 magnesium citrate solution 75 ml PO DAILY PRN (Reason: constipation) Qty: 296 RF: 1 albuterol sulfate [ProAir HFA] 90 mcg/actuation HFA aerosol inhaler 2 puff Inhalation Q4H PRN PRN (Reason: Shortness Of Breath) Qty: 1 RF: 1 fluoxetine 20 mg tablet 20 mg PO DAILY Qty: 90 RF: 3 quetiapine [Seroquel] 25 mg tablet 25 mg PO BID Qty: 20 RF: 0 lorazepam 1 mg tablet 1 mg PO Q6H PRN (Reason: anxiety) RF: 0 hydroxyzine HCl 25 mg tablet 25 mg PO TID PRNRF: 0 [employer] Advantage 1 EACH spacer 1 ea Miscellaneous DIRECTED RF: 0 albuterol sulfate 2.5 MG/3 ML solution for nebulization 2.5 mg Inhalation Q4H PRN PRN (Reason: Shortness Of Breath) 30 Days RF: 0 guaifenesin [Mucus Relief] 400 mg Tablet 400 mg PO Q4H PRNRF: 0 docusate sodium [Colace] 100 mg capsule 200 mg PO QHS PRN (Reason: constipation) Qty: 6 RF: 0 pantoprazole 40 mg tablet,delayed release (DR/EC) 40 mg PO DAILY Qty: 90 RF: 3 Symbicort 10.2 GM HFA aerosol inhaler 10.2 gm Inhalation BID Qty: 3 RF: 3 diphenhydramine HCl [Benadryl] 25 MG capsule 25 mg PO Q6H PRNRF: 0 meclizine 25 mg tablet 25 mg PO TID PRN (Reason: dizziness) Qty: 20 RF: 0 ondansetron 4 mg tablet,disintegrating 4 mg PO TID-QID PRN (Reason: nausea and vomiting) Qty: 30 RF: 0 Discharge Instructions Instructions: Abdominal Pain (ED) Additional Instructions: Please follow-up with Dr. Chow this week as scheduled. Follow-up with pulmonary rehab as scheduled. Continue your regular medication Medical Decision Making 63-year-old male presents via EMS complaining of epigastric abdominal pain of hours duration, similar to previous bouts of pancreatitis. He is well-known to me for frequent visits to the ER, some concomitant anxieties, as well as a number of chronic comorbidities. He arrives afebrile, well-appearing, with tenderness in the epigastrium. His differential diagnosis includes constipation, pancreatitis, anxiety. Patient had IV access established, labs obtained, referred for CT images to rule out obstruction, pancreatitis. Patient's laboratory analysis is reassuring with a white count of 6.5, hematocrit 44, platelets 193. Chemistries reveal sodium 139, potassium 4.6, chloride 104, bicarb 26, BUN 25, creatinine 1.1, lipase 233. CT images without evidence of acute finding. Patient improved following hydration and reassurance. He is stable for discharge. He has pre-standing comprehensive outpatient follow-up in place. HPI General Mode of arrival: EMS. Date/Time Provider Initiated Documentation: 12/02/18 14:59. Limitations to Documentation: no limitations. Information obtained by: EMS. History of Present Illness 63 year old M presents to the emergency department with the chief complaint of Abdominal pain, recurrent, described as moderate, Quality is described as dull and constant, and is localized to the abdomen. Patient reports no radiation. Patient started experiencing this hour(s) and it has been constant. No relieving factors improve symptom(s), No exacerbating factors reported . Patient did receive the following treatments prior to arrival, none Related Data Home Medications Medication Instructions Recorded Confirmed [employer] kit 10/15/17 12/02/18 albuterol sulfate 2.5 mg INHALATION Q4H PRN PRN 30 10/15/17 12/02/18 Days ml albuterol sulfate HFA 90 2 puff INHALATION Q4H PRN PRN #1 07/02/18 12/02/18 mcg/actuation aerosol inhaler inh guaifenesin [Mucus Relief] 400 mg PO Q4H PRN 09/09/18 12/02/18 Symbicort 10.2 gm INHALATION BID #3 inhaler 09/21/18 12/02/18 pantoprazole 40 mg PO DAILY #90 tab 09/21/18 12/02/18 quetiapine 50 mg tablet 50 mg PO QHS #90 tab 09/26/18 12/02/18 tiotropium bromide 18 mcg capsule 1 cap INHALATION DAILY #90 inh 09/26/18 12/02/18 with inhalation device fluoxetine 20 mg tablet 20 mg PO DAILY #90 tab-cap 10/02/18 12/02/18 quetiapine 25 mg tablet 25 mg PO BID #20 tab 10/17/18 12/02/18 meclizine 25 mg PO TID PRN #20 tab 10/23/18 12/02/18 docusate sodium 100 mg tablet 100 mg PO DAILY 10/30/18 12/02/18 diphenhydramine HCl [Benadryl] 25 mg PO Q6H PRN 11/01/18 12/02/18 lorazepam 1 mg tablet 1 mg PO Q6H PRN tab 11/09/18 12/02/18 ondansetron 4 mg PO TID-QID PRN #30 tab 11/12/18 12/02/18 morphine 15 mg immediate release 7.5 mg PO QDAY PRN #4 tab MDD 15 11/13/18 12/02/18 tablet hydroxyzine HCl 25 mg tablet 25 mg PO TID PRN tab 11/20/18 12/02/18 prednisone 20 mg tablet 20 mg PO BID 11/20/18 12/02/18 magnesium citrate oral solution 75 ml PO DAILY PRN #296 ml 11/28/18 12/02/18 docusate sodium [Colace] 200 mg PO QHS PRN #6 cap 11/29/18 12/02/18 Previous Rx's Medication Instructions Recorded [facility] Advantage kit 10/15/17 albuterol sulfate 2.5 mg INHALATION Q4H PRN PRN 30 10/15/17 Days ml albuterol sulfate HFA 90 2 puff INHALATION Q4H PRN PRN #1 07/02/18 mcg/actuation aerosol inhaler inh Symbicort 10.2 gm INHALATION BID #3 inhaler 09/21/18 pantoprazole 40 mg PO DAILY #90 tab 09/21/18 quetiapine 50 mg tablet 50 mg PO QHS #90 tab 09/26/18 tiotropium bromide 18 mcg capsule 1 cap INHALATION DAILY #90 inh 09/26/18 with inhalation device fluoxetine 20 mg tablet 20 mg PO DAILY #90 tab-cap 10/02/18 quetiapine 25 mg tablet 25 mg PO BID #20 tab 10/17/18 meclizine 25 mg PO TID PRN #20 tab 10/23/18 ondansetron 4 mg PO TID-QID PRN #30 tab 11/12/18 morphine 15 mg immediate release 7.5 mg PO QDAY PRN #4 tab MDD 15 11/13/18 tablet magnesium citrate oral solution 75 ml PO DAILY PRN #296 ml 11/28/18 docusate sodium [Colace] 200 mg PO QHS PRN #6 cap 11/29/18 Allergies Allergy/AdvReac Type Severity Reaction Status Date / Time No Known Allergies Allergy Verified 12/02/18 14:57 General Stated Complaint: Abd Prob FLASH: 3 Review of Systems Review of Systems 6 systems reviewed and otherwise neg [facility] Medical History COPD (chronic obstructive pulmonary disease) (Chronic) Adjustment disorder with anxiety (Chronic) Alcohol abuse (Chronic) Anxiety (Chronic) Dyspepsia (Chronic) Malignant neoplasm of right lung (Chronic) Tubular adenoma of colon (Inactive) Surgical History Status post cataract extraction and insertion of intraocular lens of left eye (Chronic 11/05/18) History of lung biopsy (Resolved) History of surgery on upper extremity (Resolved) colonoscopy (Inactive 01/19/15) Family History Father Essential hypertension Hyperlipidemia Paternal Uncle Heart disease Stroke Cerebral hemorrhage Hypertension Brother Cancer Social History Smoking/Tobacco Use Status: Former Tobacco Use Quit Date: 06/05/98 Tobacco: How many years used: 30 Alcohol Intake: former Drug use: Never 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 Adopted: No Foster care: No Household members: family Housing: house Number of Children: 0 Communication Needs: None current occupation: not working Current gender identity: male What type of physical activity do you participate in: none and other Details: started lifting weights Frequency: daily Seatbelt use: always Drive intox 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 Exam Narrative Exam Narrative: GEN: awake, alert, oriented 3. Pleasant, well groomed, interactive. HEAD: Normocephalic, atraumatic ENT: Mucous membranes moist, oropharynx unremarkable, External ear exam unremarkable EYES: PERRL, EOMI NECK: Full ROM, no URSZULA, no menigismus CHEST/RESP: Nontender, clear to auscultation bilateral, no wheeze/rhonchi/rales CARDIOVASCULAR: RRR, no murmur, rub jeannie. 2+ Rad pulse bilateral ABDOMEN: Soft, tender in the epigastrium without rebound, no mass. +Bowel sounds EXT: Full ROM, no edema, no rash Neuro: Grossly normal neurologic exam, conversant, interactive. Psych: Speech fluent, thoughts congruent, affect normal Course Vital Signs Temperature 37 C 12/02/18 14:55 Pulse 72 12/02/18 14:55 Respiratory Rate 16 12/02/18 14:55 Blood Pressure 137/87 12/02/18 14:55 Pulse Oximetry 98 12/02/18 14:55 Temperature 37 C 12/02/18 14:55 Temperature Source Skin 12/02/18 14:55 Pulse 72 12/02/18 14:55 Respiratory Rate 16 12/02/18 14:55 Respiratory Effort Non-Labored 12/02/18 14:55 Blood Pressure 137/87 12/02/18 14:55 Blood Pressure Position Sitting 12/02/18 14:55 Pulse Oximetry 98 12/02/18 14:55 Oxygen Delivery Method Room Air 12/02/18 14:55 Oxygen Flow Rate 0 12/02/18 14:55 Pain Level 8 12/02/18 14:55
--- NOTE | 2018-12-02 15:15 | ED.GENADUL_ITS ---
Discharge Plan Disposition Patient Disposition: HOME Condition: Improving Discharge Details Chief Complaint: Abd Prob Clinical Impression: Abdominal pain Primary Care Provider: Deborah Chow ED Provider: Ean Lyons Home Meds and New Rx's Prescriptions: Continued quetiapine [Seroquel] 50 mg tablet 50 mg PO QHS Qty: 90 RF: 0 Spiriva with HandiHaler 18 mcg capsule, w/inhalation device 1 cap Inhalation DAILY Qty: 90 RF: 0 docusate sodium [Stool Softener] 100 mg tablet 100 mg PO DAILY RF: 0 morphine 15 mg tablet 7.5 mg PO QDAY MDD 15 PRN (Reason: dyspnea) Qty: 4 RF: 0 prednisone 20 mg tablet 20 mg PO BID RF: 0 magnesium citrate solution 75 ml PO DAILY PRN (Reason: constipation) Qty: 296 RF: 1 albuterol sulfate [ProAir HFA] 90 mcg/actuation HFA aerosol inhaler 2 puff Inhalation Q4H PRN PRN (Reason: Shortness Of Breath) Qty: 1 RF: 1 fluoxetine 20 mg tablet 20 mg PO DAILY Qty: 90 RF: 3 quetiapine [Seroquel] 25 mg tablet 25 mg PO BID Qty: 20 RF: 0 lorazepam 1 mg tablet 1 mg PO Q6H PRN (Reason: anxiety) RF: 0 hydroxyzine HCl 25 mg tablet 25 mg PO TID PRNRF: 0 OptiChamber Advantage 1 EACH spacer 1 ea Miscellaneous DIRECTED RF: 0 albuterol sulfate 2.5 MG/3 ML solution for nebulization 2.5 mg Inhalation Q4H PRN PRN (Reason: Shortness Of Breath) 30 Days RF: 0 guaifenesin [Mucus Relief] 400 mg Tablet 400 mg PO Q4H PRNRF: 0 docusate sodium [Colace] 100 mg capsule 200 mg PO QHS PRN (Reason: constipation) Qty: 6 RF: 0 pantoprazole 40 mg tablet,delayed release (DR/EC) 40 mg PO DAILY Qty: 90 RF: 3 Symbicort 10.2 GM HFA aerosol inhaler 10.2 gm Inhalation BID Qty: 3 RF: 3 diphenhydramine HCl [Benadryl] 25 MG capsule 25 mg PO Q6H PRNRF: 0 meclizine 25 mg tablet 25 mg PO TID PRN (Reason: dizziness) Qty: 20 RF: 0 ondansetron 4 mg tablet,disintegrating 4 mg PO TID-QID PRN (Reason: nausea and vomiting) Qty: 30 RF: 0 Discharge Instructions Instructions: Abdominal Pain (ED) Additional Instructions: Please follow-up with Dr. Chow this week as scheduled. Follow-up with pulmonary rehab as scheduled. Continue your regular medication Medical Decision Making 63-year-old male presents via EMS complaining of epigastric abdominal pain of hours duration, similar to previous bouts of pancreatitis. He is well-known to me for frequent visits to the ER, some concomitant anxieties, as well as a number of chronic comorbidities. He arrives afebrile, well-appearing, with tenderness in the epigastrium. His differential diagnosis includes constipation, pancreatitis, anxiety. Patient had IV access established, labs obtained, referred for CT images to rule out obstruction, pancreatitis. Patient's laboratory analysis is reassuring with a white count of 6.5, hematocrit 44, platelets 193. Chemistries reveal sodium 139, potassium 4.6, chloride 104, bicarb 26, BUN 25, creatinine 1.1, lipase 233. CT images without evidence of acute finding. Patient improved following hydration and reassurance. He is stable for discharge. He has pre- standing comprehensive outpatient follow-up in place. HPI General Mode of arrival: EMS . Date/Time Provider Initiated Documentation: 12/02/18 14:59 . Limitations to Documentation: no limitations . Information obtained by: EMS . History of Present Illness 63 year old M presents to the emergency department with the chief complaint of Abdominal pain, recurrent, described as moderate, Quality is described as dull and constant, and is localized to the abdomen. Patient reports no radiation. Patient started experiencing this hour(s) and it has been constant. No relieving factors improve symptom(s), No exacerbating factors reported . Patient did receive the following treatments prior to arrival, none Related Data Home Medications Medication Instructions Recorded Confirmed [employer] Advantage kit 10/15/17 12/02/18 albuterol sulfate 2.5 mg INHALATION Q4H PRN PRN 30 10/15/17 12/02/18 Days ml albuterol sulfate HFA 90 2 puff INHALATION Q4H PRN PRN #1 07/02/18 12/02/18 mcg/actuation aerosol inhaler inh guaifenesin [Mucus Relief] 400 mg PO Q4H PRN 09/09/18 12/02/18 Symbicort 10.2 gm INHALATION BID #3 inhaler 09/21/18 12/02/18 pantoprazole 40 mg PO DAILY #90 tab 09/21/18 12/02/18 quetiapine 50 mg tablet 50 mg PO QHS #90 tab 09/26/18 12/02/18 tiotropium bromide 18 mcg capsule 1 cap INHALATION DAILY #90 inh 09/26/18 12/02/18 with inhalation device fluoxetine 20 mg tablet 20 mg PO DAILY #90 tab-cap 10/02/18 12/02/18 quetiapine 25 mg tablet 25 mg PO BID #20 tab 10/17/18 12/02/18 meclizine 25 mg PO TID PRN #20 tab 10/23/18 12/02/18 docusate sodium 100 mg tablet 100 mg PO DAILY 10/30/18 12/02/18 diphenhydramine HCl [Benadryl] 25 mg PO Q6H PRN 11/01/18 12/02/18 lorazepam 1 mg tablet 1 mg PO Q6H PRN tab 11/09/18 12/02/18 ondansetron 4 mg PO TID-QID PRN #30 tab 11/12/18 12/02/18 morphine 15 mg immediate release 7.5 mg PO QDAY PRN #4 tab MDD 15 11/13/18 12/02/18 tablet hydroxyzine HCl 25 mg tablet 25 mg PO TID PRN tab 11/20/18 12/02/18 prednisone 20 mg tablet 20 mg PO BID 11/20/18 12/02/18 magnesium citrate oral solution 75 ml PO DAILY PRN #296 ml 11/28/18 12/02/18 docusate sodium [Colace] 200 mg PO QHS PRN #6 cap 11/29/18 12/02/18 Previous Rx's Medication Instructions Recorded [facility] Advantage kit 10/15/17 albuterol sulfate 2.5 mg INHALATION Q4H PRN PRN 30 10/15/17 Days ml albuterol sulfate HFA 90 2 puff INHALATION Q4H PRN PRN #1 07/02/18 mcg/actuation aerosol inhaler inh Symbicort 10.2 gm INHALATION BID #3 inhaler 09/21/18 pantoprazole 40 mg PO DAILY #90 tab 09/21/18 quetiapine 50 mg tablet 50 mg PO QHS #90 tab 09/26/18 tiotropium bromide 18 mcg capsule 1 cap INHALATION DAILY #90 inh 09/26/18 with inhalation device fluoxetine 20 mg tablet 20 mg PO DAILY #90 tab-cap 10/02/18 quetiapine 25 mg tablet 25 mg PO BID #20 tab 10/17/18 meclizine 25 mg PO TID PRN #20 tab 10/23/18 ondansetron 4 mg PO TID-QID PRN #30 tab 11/12/18 morphine 15 mg immediate release 7.5 mg PO QDAY PRN #4 tab MDD 15 11/13/18 tablet magnesium citrate oral solution 75 ml PO DAILY PRN #296 ml 11/28/18 docusate sodium [Colace] 200 mg PO QHS PRN #6 cap 11/29/18 Allergies Allergy/AdvReac Type Severity Reaction Status Date / Time No Known Allergies Allergy Verified 12/02/18 14:57 General Stated Complaint: Abd Prob FLASH: 3 Review of Systems Review of Systems 6 systems reviewed and otherwise neg [facility] Medical History COPD (chronic obstructive pulmonary disease) (Chronic) Adjustment disorder with anxiety (Chronic) Alcohol abuse (Chronic) Anxiety (Chronic) Dyspepsia (Chronic) Malignant neoplasm of right lung (Chronic) Tubular adenoma of colon (Inactive) Surgical History Status post cataract extraction and insertion of intraocular lens of left eye (Chronic 11/05/18) History of lung biopsy (Resolved) History of surgery on upper extremity (Resolved) colonoscopy (Inactive 01/19/15) Family History Father Essential hypertension Hyperlipidemia Paternal Uncle Heart disease Stroke Cerebral hemorrhage Hypertension Brother Cancer Social History Smoking/Tobacco Use Status: Former Tobacco Use Quit Date: 06/05/98 Tobacco: How many years used: 30 Alcohol Intake: former Drug use: Never 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 Adopted: No Foster care: No Household members: family Housing: house Number of Children: 0 Communication Needs: None current occupation: not working Current gender identity: male What type of physical activity do you participate in: none and other Details: started lifting weights Frequency: daily Seatbelt use: always Drive intox 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 Exam Narrative Exam Narrative: GEN: awake, alert, oriented 3. Pleasant, well groomed, interactive. HEAD: Normocephalic, atraumatic ENT: Mucous membranes moist, oropharynx unremarkable, External ear exam unremarkable EYES: PERRL, EOMI NECK: Full ROM, no URSZULA, no menigismus CHEST/RESP: Nontender, clear to auscultation bilateral, no wheeze/rhonchi/rales CARDIOVASCULAR: RRR, no murmur, rub jeannie. 2+ Rad pulse bilateral ABDOMEN: Soft, tender in the epigastrium without rebound, no mass. +Bowel sounds EXT: Full ROM, no edema, no rash Neuro: Grossly normal neurologic exam, conversant, interactive. Psych: Speech fluent, thoughts congruent, affect normal Course Vital Signs Temperature 37 C 12/02/18 14:55 Pulse 72 12/02/18 14:55 Respiratory Rate 16 12/02/18 14:55 Blood Pressure 137/87 12/02/18 14:55 Pulse Oximetry 98 12/02/18 14:55 Temperature 37 C 12/02/18 14:55 Temperature Source Skin 12/02/18 14:55 Pulse 72 12/02/18 14:55 Respiratory Rate 16 12/02/18 14:55 Respiratory Effort Non-Labored 12/02/18 14:55 Blood Pressure 137/87 12/02/18 14:55 Blood Pressure Position Sitting 12/02/18 14:55 Pulse Oximetry 98 12/02/18 14:55 Oxygen Delivery Method Room Air 12/02/18 14:55 Oxygen Flow Rate 0 12/02/18 14:55 Pain Level 8 12/02/18 14:55
[2018-12-02] MEDS: Normal Saline 250 ML 500 ML IV (15:31)
[2018-12-02 15:37] LABS: Abs Immature Grans 0.07 k/cumm (0.0-0.09); Absolute Basophil Count 0.01 k/cumm (0.0-0.2); Absolute Eosinophil Count 0.01 k/cumm (0.0-0.7); Absolute Lymphocyte Count 0.63 k/cumm (1.2-3.4); Absolute Monocyte Count 0.39 k/cumm (0.11-0.7); Absolute Neutrophil Count 5.43 k/cumm (1.2-6.7); Basophils % 0.2; Eosinophils % 0.2; HGB 14.6 g/dL (13.5-17.5); Immature Grans % 1.1; Lymphocytes % 9.6; Mean Corp. HGB Concentration 33.2 g/dL (32.0-36.0); Mean Corpuscular Hemoglobin 30.4 pg (27.0-33.0); Mean Corpuscular Volume 91.7 fL (80-95); Mean Platelet Volume 9.9 fL (8.0-11.0); Neutrophils % 82.9; Platelet Count 193 x1000/uL (130-400); RBC Distribution Width 13.7 % (11.8-14.1); White Blood Cell Count 6.54 k/cumm (4.4-10.8)
[2018-12-02 15:57] LABS: ALT 30 U/L (12-78); AST 13 U/L (15-37); Albumin 3.4 g/dL (3.4-5.0); Alkaline Phosphatase 73 U/L (46-116); Anion Gap 8.2 mmol/L (3-11); BUN 25 mg/dL (7-18); Bilirubin, Total 2.3 mg/dL (0.2-1.0); CO2 26.8 mmol/L (21.0-32.0); CREATININE 1.13 mg/dL (0.70-1.30); Calcium 8.1 mg/dL (8.5-10.1); Chloride 104 mmol/L (98-107); Glucose 107 mg/dL (70-100); Lipase 233 U/L (73-393); Potassium 4.6 mmol/L (3.5-5.1); Sodium 139 mmol/L (136-145)
[2018-12-02] MEDS: Omnipaque 350 MG/ML 100 ML BTL IJ (16:17)
[2018-12-02] MEDS: Normal Saline Flush 10 ML SYR IVP (16:17)
--- NOTE | 2018-12-02 16:50 | DI.VRAD_ITS ---
EXAM: CT Abdomen and Pelvis With Contrast EXAM DATE/TIME: 12/02/2018 4:13 PM CLINICAL HISTORY: 63 years old, male; Other: Abd bloating epigastric pain TECHNIQUE: Imaging protocol: Axial computed tomography images of the abdomen and pelvis with intravenous contrast. Coronal and sagittal reformatted images were created and reviewed. Contrast material: OMNI 350; Contrast volume: 100 ml; Contrast route: IV; COMPARISON: CT ABDOMEN PELVIS W 09/05/2018 8:35 AM FINDINGS: Normal appearing solid organs. No intestinal obstruction. No obstructive uropathy. No free fluid. No free air. No inflammatory changes. IMPRESSION: No specific etiology identified for the patient's symptoms. Dictated and Authenticated by: Yovany Friedman MD. Ordering:ADELE Mckoy MD
== END 2018-12-02 17:02 | disposition home or self-care (01) ==
PROVIDERS: Emergency Provider Emergency Medicine; PCP Internal Medicine
DX: R10.13 Epigastric pain (principal); J44.9 Chronic obstructive pulmonary disease, unspecified; Z87.891 Personal history of nicotine dependence; F41.9 Anxiety disorder, unspecified
CPT/HCPCS: 36415; 80053; 83690; 99285; 74177; 85025; 99284; J3490

== ENCOUNTER 2018-12-02 19:35 | Emergency (ER) | payer MEDICAID, SELFPAY ==
--- NOTE | 2018-12-02 19:39 | W.ED.GENAD ---
Discharge Plan Disposition Patient Disposition: HOME Condition: Stable Discharge Details Chief Complaint: Recheck Clinical Impression: Anxiety, Chronic pain Primary Care Provider: Deborah Chow ED Provider: Mj Chen Home Meds and New Rx's Prescriptions: No Action quetiapine [Seroquel] 50 mg tablet 50 mg PO QHS Qty: 90 RF: 0 Spiriva with HandiHaler 18 mcg capsule, w/inhalation device 1 cap Inhalation DAILY Qty: 90 RF: 0 docusate sodium [Stool Softener] 100 mg tablet 100 mg PO DAILY RF: 0 morphine 15 mg tablet 7.5 mg PO QDAY MDD 15 PRN (Reason: dyspnea) Qty: 4 RF: 0 prednisone 20 mg tablet 20 mg PO BID RF: 0 magnesium citrate solution 75 ml PO DAILY PRN (Reason: constipation) Qty: 296 RF: 1 albuterol sulfate [ProAir HFA] 90 mcg/actuation HFA aerosol inhaler 2 puff Inhalation Q4H PRN PRN (Reason: Shortness Of Breath) Qty: 1 RF: 1 fluoxetine 20 mg tablet 20 mg PO DAILY Qty: 90 RF: 3 quetiapine [Seroquel] 25 mg tablet 25 mg PO BID Qty: 20 RF: 0 lorazepam 1 mg tablet 1 mg PO Q6H PRN (Reason: anxiety) RF: 0 hydroxyzine HCl 25 mg tablet 25 mg PO TID PRNRF: 0 OptiChamber Advantage 1 EACH spacer 1 ea Miscellaneous DIRECTED RF: 0 albuterol sulfate 2.5 MG/3 ML solution for nebulization 2.5 mg Inhalation Q4H PRN PRN (Reason: Shortness Of Breath) 30 Days RF: 0 guaifenesin [Mucus Relief] 400 mg Tablet 400 mg PO Q4H PRNRF: 0 docusate sodium [Colace] 100 mg capsule 200 mg PO QHS PRN (Reason: constipation) Qty: 6 RF: 0 pantoprazole 40 mg tablet,delayed release (DR/EC) 40 mg PO DAILY Qty: 90 RF: 3 Symbicort 10.2 GM HFA aerosol inhaler 10.2 gm Inhalation BID Qty: 3 RF: 3 diphenhydramine HCl [Benadryl] 25 MG capsule 25 mg PO Q6H PRNRF: 0 meclizine 25 mg tablet 25 mg PO TID PRN (Reason: dizziness) Qty: 20 RF: 0 ondansetron 4 mg tablet,disintegrating 4 mg PO TID-QID PRN (Reason: nausea and vomiting) Qty: 30 RF: 0 Discharge Instructions Instructions: Chronic Pain (ED) Additional Instructions: you need to follow up with your primary care providers for the problems you have had chronically. Medical Decision Making Patient comes in with epigastric pain similar to when he was here earlier twice and had negative ct and lab work and has had multiple visits for the same. He has mild epigastric pain, is speaking in full sentences with no distress. Given the w/u he had just 2 hours ago do not feel further testing indicated. no chest pain or pressure to suggest acs. Will have him follow up with his pcp Differential Diagnosis chronic pain, anxiety HPI General Mode of arrival: ambulatory. Date/Time Provider Initiated Documentation: 12/02/18 19:36. Limitations to Documentation: no limitations. Information obtained by: patient. History of Present Illness 63 year old M presents to the emergency department with the chief complaint of epigastric pain, described as mild, Quality is described as burning, Patient reports no radiation. No relieving factors improve symptom(s), No exacerbating factors reported . Patient notes no other symptoms.. Patient did receive the following treatments prior to arrival, none Related Data Home Medications Medication Instructions Recorded [facility] 12/02/18 albuterol sulfate 2.5 mg INHALATION Q4H PRN PRN 30 10/15/17 12/02/18 Days ml albuterol sulfate HFA 90 2 puff INHALATION Q4H PRN PRN #1 07/02/18 12/02/18 mcg/actuation aerosol inhaler inh guaifenesin [Mucus Relief] 400 mg PO Q4H PRN 09/09/18 12/02/18 Symbicort 10.2 gm INHALATION BID #3 inhaler 09/21/18 12/02/18 pantoprazole 40 mg PO DAILY #90 tab 09/21/18 12/02/18 quetiapine 50 mg tablet 50 mg PO QHS #90 tab 09/26/18 12/02/18 tiotropium bromide 18 mcg capsule 1 cap INHALATION DAILY #90 inh 09/26/18 12/02/18 with inhalation device fluoxetine 20 mg tablet 20 mg PO DAILY #90 tab-cap 10/02/18 12/02/18 quetiapine 25 mg tablet 25 mg PO BID #20 tab 10/17/18 12/02/18 meclizine 25 mg PO TID PRN #20 tab 10/23/18 12/02/18 docusate sodium 100 mg tablet 100 mg PO DAILY 10/30/18 12/02/18 diphenhydramine HCl [Benadryl] 25 mg PO Q6H PRN 11/01/18 12/02/18 lorazepam 1 mg tablet 1 mg PO Q6H PRN tab 11/09/18 12/02/18 ondansetron 4 mg PO TID-QID PRN #30 tab 11/12/18 12/02/18 morphine 15 mg immediate release 7.5 mg PO QDAY PRN #4 tab MDD 15 11/13/18 12/02/18 tablet hydroxyzine HCl 25 mg tablet 25 mg PO TID PRN tab 11/20/18 12/02/18 prednisone 20 mg tablet 20 mg PO BID 11/20/18 12/02/18 magnesium citrate oral solution 75 ml PO DAILY PRN #296 ml 11/28/18 12/02/18 docusate sodium [Colace] 200 mg PO QHS PRN #6 cap 11/29/18 12/02/18 Previous Rx's Medication Instructions Recorded [facility] Advantage kit 10/15/17 albuterol sulfate 2.5 mg INHALATION Q4H PRN PRN 30 10/15/17 Days ml albuterol sulfate HFA 90 2 puff INHALATION Q4H PRN PRN #1 07/02/18 mcg/actuation aerosol inhaler inh Symbicort 10.2 gm INHALATION BID #3 inhaler 09/21/18 pantoprazole 40 mg PO DAILY #90 tab 09/21/18 quetiapine 50 mg tablet 50 mg PO QHS #90 tab 09/26/18 tiotropium bromide 18 mcg capsule 1 cap INHALATION DAILY #90 inh 09/26/18 with inhalation device fluoxetine 20 mg tablet 20 mg PO DAILY #90 tab-cap 10/02/18 quetiapine 25 mg tablet 25 mg PO BID #20 tab 10/17/18 meclizine 25 mg PO TID PRN #20 tab 10/23/18 ondansetron 4 mg PO TID-QID PRN #30 tab 11/12/18 morphine 15 mg immediate release 7.5 mg PO QDAY PRN #4 tab MDD 15 11/13/18 tablet magnesium citrate oral solution 75 ml PO DAILY PRN #296 ml 11/28/18 docusate sodium [Colace] 200 mg PO QHS PRN #6 cap 11/29/18 Allergies Allergy/AdvReac Type Severity Reaction Status Date / Time No Known Allergies Allergy Verified 12/02/18 14:57 General FLASH: 3 Review of Systems Review of Systems All systems reviewed & are unremarkable except as noted in HPI and below Constitutional Denies chills, Denies fever(s) and Denies weakness Cardiovascular Denies chest pain Respiratory Denies cough Gastrointestinal Denies nausea and Denies vomiting Genitourinary Denies dysuria Musculoskeletal Denies joint swelling Neurologic Denies weakness [facility] Social History Smoking/Tobacco Use Status: Former Tobacco Use Quit Date: 06/05/98 Tobacco: How many years used: 30 Alcohol Intake: former Drug use: Never 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 Adopted: No Foster care: No Household members: family Housing: house Number of Children: 0 Communication Needs: None current occupation: not working Current gender identity: male What type of physical activity do you participate in: none and other Details: started lifting weights Frequency: daily Seatbelt use: always Drive intox 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 Exam Const General: no acute distress Orientation: alert HENMT Head: normal to inspection Ears: external ears normal General nose exam: external nose normal Mouth: moist mucous membranes Eyes General: appearance normal, both eyes and all related structures Neck Neck: normal visual inspection Resp Effort & Inspection: normal respiratory effort and able to speak in complete sentences Cardio Rate: regular rate GI Palpation: soft Skin General skin exam: no rashes or lesions noted Neuro General: alert and oriented x3 Extrem General: normal to inspection Psych Mental Status: mental status grossly normal
[2018-12-02 19:40] VITALS: BP 140/85; PULSE 70; RESP 18; TEMP 37.1; O2SAT 97
--- NOTE | 2018-12-02 19:45 | ED.GENADUL_ITS ---
Discharge Plan Disposition Patient Disposition: HOME Condition: Stable Discharge Details Chief Complaint: Recheck Clinical Impression: Anxiety, Chronic pain Primary Care Provider: Deborah Chow ED Provider: Mj Chen Home Meds and New Rx's Prescriptions: No Action quetiapine [Seroquel] 50 mg tablet 50 mg PO QHS Qty: 90 RF: 0 Spiriva with HandiHaler 18 mcg capsule, w/inhalation device 1 cap Inhalation DAILY Qty: 90 RF: 0 docusate sodium [Stool Softener] 100 mg tablet 100 mg PO DAILY RF: 0 morphine 15 mg tablet 7.5 mg PO QDAY MDD 15 PRN (Reason: dyspnea) Qty: 4 RF: 0 prednisone 20 mg tablet 20 mg PO BID RF: 0 magnesium citrate solution 75 ml PO DAILY PRN (Reason: constipation) Qty: 296 RF: 1 albuterol sulfate [ProAir HFA] 90 mcg/actuation HFA aerosol inhaler 2 puff Inhalation Q4H PRN PRN (Reason: Shortness Of Breath) Qty: 1 RF: 1 fluoxetine 20 mg tablet 20 mg PO DAILY Qty: 90 RF: 3 quetiapine [Seroquel] 25 mg tablet 25 mg PO BID Qty: 20 RF: 0 lorazepam 1 mg tablet 1 mg PO Q6H PRN (Reason: anxiety) RF: 0 hydroxyzine HCl 25 mg tablet 25 mg PO TID PRNRF: 0 OptiChamber Advantage 1 EACH spacer 1 ea Miscellaneous DIRECTED RF: 0 albuterol sulfate 2.5 MG/3 ML solution for nebulization 2.5 mg Inhalation Q4H PRN PRN (Reason: Shortness Of Breath) 30 Days RF: 0 guaifenesin [Mucus Relief] 400 mg Tablet 400 mg PO Q4H PRNRF: 0 docusate sodium [Colace] 100 mg capsule 200 mg PO QHS PRN (Reason: constipation) Qty: 6 RF: 0 pantoprazole 40 mg tablet,delayed release (DR/EC) 40 mg PO DAILY Qty: 90 RF: 3 Symbicort 10.2 GM HFA aerosol inhaler 10.2 gm Inhalation BID Qty: 3 RF: 3 diphenhydramine HCl [Benadryl] 25 MG capsule 25 mg PO Q6H PRNRF: 0 meclizine 25 mg tablet 25 mg PO TID PRN (Reason: dizziness) Qty: 20 RF: 0 ondansetron 4 mg tablet,disintegrating 4 mg PO TID-QID PRN (Reason: nausea and vomiting) Qty: 30 RF: 0 Discharge Instructions Instructions: Chronic Pain (ED) Additional Instructions: you need to follow up with your primary care providers for the problems you have had chronically. Medical Decision Making Patient comes in with epigastric pain similar to when he was here earlier twice and had negative ct and lab work and has had multiple visits for the same. He has mild epigastric pain, is speaking in full sentences with no distress. Given the w/u he had just 2 hours ago do not feel further testing indicated. no chest pain or pressure to suggest acs. Will have him follow up with his pcp Differential Diagnosis chronic pain, anxiety HPI General Mode of arrival: ambulatory . Date/Time Provider Initiated Documentation: 12/02/18 19:36 . Limitations to Documentation: no limitations . Information obtained by: patient . History of Present Illness 63 year old M presents to the emergency department with the chief complaint of epigastric pain, described as mild, Quality is described as burning, Patient reports no radiation. No relieving factors improve symptom(s), No exacerbating factors reported . Patient notes no other symptoms.. Patient did receive the following treatments prior to arrival, none Related Data Home Medications Medication Instructions Recorded [facility] 12/02/18 albuterol sulfate 2.5 mg INHALATION Q4H PRN PRN 30 10/15/17 12/02/18 Days ml albuterol sulfate HFA 90 2 puff INHALATION Q4H PRN PRN #1 07/02/18 12/02/18 mcg/actuation aerosol inhaler inh guaifenesin [Mucus Relief] 400 mg PO Q4H PRN 09/09/18 12/02/18 Symbicort 10.2 gm INHALATION BID #3 inhaler 09/21/18 12/02/18 pantoprazole 40 mg PO DAILY #90 tab 09/21/18 12/02/18 quetiapine 50 mg tablet 50 mg PO QHS #90 tab 09/26/18 12/02/18 tiotropium bromide 18 mcg capsule 1 cap INHALATION DAILY #90 inh 09/26/18 12/02/18 with inhalation device fluoxetine 20 mg tablet 20 mg PO DAILY #90 tab-cap 10/02/18 12/02/18 quetiapine 25 mg tablet 25 mg PO BID #20 tab 10/17/18 12/02/18 meclizine 25 mg PO TID PRN #20 tab 10/23/18 12/02/18 docusate sodium 100 mg tablet 100 mg PO DAILY 10/30/18 12/02/18 diphenhydramine HCl [Benadryl] 25 mg PO Q6H PRN 11/01/18 12/02/18 lorazepam 1 mg tablet 1 mg PO Q6H PRN tab 11/09/18 12/02/18 ondansetron 4 mg PO TID-QID PRN #30 tab 11/12/18 12/02/18 morphine 15 mg immediate release 7.5 mg PO QDAY PRN #4 tab MDD 15 11/13/18 12/02/18 tablet hydroxyzine HCl 25 mg tablet 25 mg PO TID PRN tab 11/20/18 12/02/18 prednisone 20 mg tablet 20 mg PO BID 11/20/18 12/02/18 magnesium citrate oral solution 75 ml PO DAILY PRN #296 ml 11/28/18 12/02/18 docusate sodium [Colace] 200 mg PO QHS PRN #6 cap 11/29/18 12/02/18 Previous Rx's Medication Instructions Recorded [facility] Advantage kit 10/15/17 albuterol sulfate 2.5 mg INHALATION Q4H PRN PRN 30 10/15/17 Days ml albuterol sulfate HFA 90 2 puff INHALATION Q4H PRN PRN #1 07/02/18 mcg/actuation aerosol inhaler inh Symbicort 10.2 gm INHALATION BID #3 inhaler 09/21/18 pantoprazole 40 mg PO DAILY #90 tab 09/21/18 quetiapine 50 mg tablet 50 mg PO QHS #90 tab 09/26/18 tiotropium bromide 18 mcg capsule 1 cap INHALATION DAILY #90 inh 09/26/18 with inhalation device fluoxetine 20 mg tablet 20 mg PO DAILY #90 tab-cap 10/02/18 quetiapine 25 mg tablet 25 mg PO BID #20 tab 10/17/18 meclizine 25 mg PO TID PRN #20 tab 10/23/18 ondansetron 4 mg PO TID-QID PRN #30 tab 11/12/18 morphine 15 mg immediate release 7.5 mg PO QDAY PRN #4 tab MDD 15 11/13/18 tablet magnesium citrate oral solution 75 ml PO DAILY PRN #296 ml 11/28/18 docusate sodium [Colace] 200 mg PO QHS PRN #6 cap 11/29/18 Allergies Allergy/AdvReac Type Severity Reaction Status Date / Time No Known Allergies Allergy Verified 12/02/18 14:57 General FLASH: 3 Review of Systems Review of Systems All systems reviewed & are unremarkable except as noted in HPI and below Constitutional Denies chills, Denies fever(s) and Denies weakness Cardiovascular Denies chest pain Respiratory Denies cough Gastrointestinal Denies nausea and Denies vomiting Genitourinary Denies dysuria Musculoskeletal Denies joint swelling Neurologic Denies weakness [facility] Social History Smoking/Tobacco Use Status: Former Tobacco Use Quit Date: 06/05/98 Tobacco: How many years used: 30 Alcohol Intake: former Drug use: Never 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 Adopted: No Foster care: No Household members: family Housing: house Number of Children: 0 Communication Needs: None current occupation: not working Current gender identity: male What type of physical activity do you participate in: none and other Details: started lifting weights Frequency: daily Seatbelt use: always Drive 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 Exam Const General: no acute distress Orientation: alert HENMT Head: normal to inspection Ears: external ears normal General nose exam: external nose normal Mouth: moist mucous membranes Eyes General: appearance normal, both eyes and all related structures Neck Neck: normal visual inspection Resp Effort & Inspection: normal respiratory effort and able to speak in complete sentences Cardio Rate: regular rate GI Palpation: soft Skin General skin exam: no rashes or lesions noted Neuro General: alert and oriented x3 Extrem General: normal to inspection Psych Mental Status: mental status grossly normal
== END 2018-12-02 19:48 | disposition home or self-care (01) ==
PROVIDERS: Emergency Provider Emergency Medicine; PCP Internal Medicine
DX: R10.13 Epigastric pain (principal); G89.29 Other chronic pain; F41.9 Anxiety disorder, unspecified
CPT/HCPCS: 99281; 99282

== ENCOUNTER 2018-12-03 09:54 | Outpatient (RCR) | payer MEDICAID, SELFPAY | END 2019-01-02 23:59 | disposition home or self-care (01) | LOC: PRC 09:54 | PROVIDERS: PCP Internal Medicine; Visit Provider Family Medicine | DX: J44.9 Chronic obstructive pulmonary disease, unspecified (principal); Z51.89 Encounter for other specified aftercare | CPT/HCPCS: G0424 ==

== ENCOUNTER 2018-12-03 18:47 | Emergency (ER) | payer MEDICAID, SELFPAY ==
[2018-12-03 18:49] VITALS: BP 153/88; PULSE 83; RESP 18; TEMP 36.7; O2SAT 98
--- NOTE | 2018-12-03 19:09 | ED.GENADUL_ITS ---
Discharge Plan Disposition Patient Disposition: HOME Discharge Details Chief Complaint: Urinary Clinical Impression: Dehydration, Tick bite of abdomen Primary Care Provider: Deborah Chow ED Provider: Elliot Lizarraga Home Meds and New Rx's Prescriptions: No Action quetiapine [Seroquel] 50 mg tablet 50 mg PO QHS Qty: 90 RF: 0 Spiriva with HandiHaler 18 mcg capsule, w/inhalation device 1 cap Inhalation DAILY Qty: 90 RF: 0 docusate sodium [Stool Softener] 100 mg tablet 100 mg PO DAILY RF: 0 prednisone 20 mg tablet 20 mg PO BID RF: 0 magnesium citrate solution 75 ml PO DAILY PRN (Reason: constipation) Qty: 296 RF: 1 magnesium citrate solution 120 ml PO BID PRN (Reason: constipation) Qty: 296 RF: 0 lubiprostone 8 mcg capsule 8 mcg PO BID Qty: 14 RF: 0 mirtazapine 15 mg tablet 15 mg PO HS Qty: 30 RF: 1 albuterol sulfate [ProAir HFA] 90 mcg/actuation HFA aerosol inhaler 2 puff Inhalation Q4H PRN PRN (Reason: Shortness Of Breath) Qty: 1 RF: 1 fluoxetine 20 mg tablet 20 mg PO DAILY Qty: 90 RF: 3 lactulose 20 gram/30 mL solution 20 gm PO TID Qty: 500 RF: 0 quetiapine [Seroquel] 25 mg tablet 25 mg PO DAILY Qty: 30 RF: 0 hydroxyzine HCl 25 mg tablet 25 mg PO TID PRN (Reason: anxiety) Qty: 90 RF: 0 (DME) OptiChamber Advantage 1 EACH spacer 1 ea Miscellaneous DIRECTED RF: 0 albuterol sulfate 2.5 MG/3 ML solution for nebulization 2.5 mg Inhalation Q4H PRN PRN (Reason: Shortness Of Breath) 30 Days RF: 0 docusate sodium [Colace] 100 mg capsule 200 mg PO QHS PRN (Reason: constipation) Qty: 6 RF: 0 pantoprazole 40 mg tablet,delayed release (DR/EC) 40 mg PO DAILY Qty: 90 RF: 3 Symbicort 10.2 GM HFA aerosol inhaler 10.2 gm Inhalation BID Qty: 3 RF: 3 diphenhydramine HCl [Benadryl] 25 MG capsule 25 mg PO Q6H PRNRF: 0 meclizine 25 mg tablet 25 mg PO TID PRN (Reason: dizziness) Qty: 20 RF: 0 ondansetron 4 mg tablet,disintegrating 4 mg PO TID-QID PRN (Reason: nausea and vomiting) Qty: 30 RF: 0 Discharge Instructions Instructions: Dehydration (ED), Tick Bite (ED) Additional Instructions: Please take your medication as prescribed. Please contact your primary care physician to arrange follow-up. Return to the ER for any worsening or new concerning symptoms. Referrals: Deborah Chow MD [Primary Care Provider] - Discharge Data Discharge Date/Time-TO BE ENTERED AT DEPARTURE: 12/03/18 20:52 Medical Decision Making 19:15 --63-year-old male with multiple medical problems, well-known to the emerge department with frequent visits for multiple complaints, seen here 3 times yesterday, here with new complaint of decreased urination and bilateral flank pain left greater than right after working outside over the past 3 days. Suspect mild dehydration. A bladder scan was performed by nursing and patient had no urine in his bladder. Plan to give oral fluid rehydration and then check urinalysis. Patient also notes that he removed to suspected deer ticks from his abdomen. Tics may have been biting him for upwards of 36 hours but is not sure. No other recent tick bites. Plan to treat with single dose of doxycycline 200 mg for prophylaxis against Lyme disease. 20:40 --patient was provided oral rehydration and was then able to urinate without difficulty. Urinalysis reviewed and nondiagnostic. Patient reassessed remained stable. Plan is for him to follow-up with his primary care physician. I again reviewed with Mr. Urias the importance of primary care and that he should follow-up with his primary care physician and care management regarding his ongoing nonemergent care. Usual and customary discharge instructions were otherwise provided. HPI General Mode of arrival: ambulatory . Date/Time Provider Initiated Documentation: 12/03/18 18:55 . Limitations to Documentation: no limitations . Information obtained by: patient . HPI Narrative: 63-year-old male with multiple medical problems, well-known to our emergency department with multiple frequent visits for various complaints, seen here multiple times yesterday, here today with chief complaint of difficulty urinating. Patient notes that he feels as though he is not urinating as much today. He also noted some bilateral flank pain left greater than right. He notes that when he did urinate a small amount earlier today it was dark-colored. He states he been outside working in the brush over the past 3 days. He did have to deer ticks biting his abdomen that were removed earlier today. Is not sure how long these tics were attached but could have been greater than 36 hours. He denies fever. No abdominal pain. Related Data Home Medications Medication Instructions Recorded [facility] 10/15/17 12/12/18 albuterol sulfate 2.5 mg INHALATION Q4H PRN PRN 30 10/15/17 12/12/18 Days ml albuterol sulfate 90 mcg/actuation 2 puff INHALATION Q4H PRN PRN #1 07/02/18 12/12/18 aerosol inhaler inh Symbicort 10.2 gm INHALATION BID #3 inhaler 09/21/18 12/12/18 pantoprazole 40 mg PO DAILY #90 tab 09/21/18 12/12/18 quetiapine 50 mg tablet 50 mg PO QHS #90 tab 09/26/18 12/12/18 tiotropium bromide 18 mcg capsule 1 cap INHALATION DAILY #90 inh 09/26/18 12/12/18 with inhalation device fluoxetine 20 mg tablet 20 mg PO DAILY #90 tab-cap 10/02/18 12/12/18 meclizine 25 mg PO TID PRN #20 tab 10/23/18 12/12/18 docusate sodium 100 mg tablet 100 mg PO DAILY 10/30/18 12/12/18 diphenhydramine HCl [Benadryl] 25 mg PO Q6H PRN 11/01/18 12/12/18 ondansetron 4 mg PO TID-QID PRN #30 tab 11/12/18 12/12/18 prednisone 20 mg tablet 20 mg PO BID 11/20/18 12/12/18 magnesium citrate 75 ml PO DAILY PRN #296 ml 11/28/18 12/12/18 docusate sodium [Colace] 200 mg PO QHS PRN #6 cap 11/29/18 12/12/18 hydroxyzine HCl 25 mg tablet 25 mg PO TID PRN #90 tab 12/04/18 12/12/18 lactulose 20 gram/30 mL oral 20 gm PO TID #500 ml 12/04/18 12/12/18 solution quetiapine 25 mg tablet 25 mg PO DAILY #30 tab 12/04/18 12/12/18 lubiprostone 8 mcg capsule 8 mcg PO BID #14 cap 12/12/18 12/12/18 magnesium citrate 120 ml PO BID PRN #296 ml 12/12/18 12/12/18 mirtazapine 15 mg tablet 15 mg PO HS #30 tab 12/12/18 12/12/18 Previous Rx's Medication Instructions Recorded [employer]iChamber Advantage kit 10/15/17 albuterol sulfate 2.5 mg INHALATION Q4H PRN PRN 30 10/15/17 Days ml albuterol sulfate 90 mcg/actuation 2 puff INHALATION Q4H PRN PRN #1 07/02/18 aerosol inhaler inh Symbicort 10.2 gm INHALATION BID #3 inhaler 09/21/18 pantoprazole 40 mg PO DAILY #90 tab 09/21/18 quetiapine 50 mg tablet 50 mg PO QHS #90 tab 09/26/18 tiotropium bromide 18 mcg capsule 1 cap INHALATION DAILY #90 inh 09/26/18 with inhalation device fluoxetine 20 mg tablet 20 mg PO DAILY #90 tab-cap 10/02/18 meclizine 25 mg PO TID PRN #20 tab 10/23/18 ondansetron 4 mg PO TID-QID PRN #30 tab 11/12/18 magnesium citrate 75 ml PO DAILY PRN #296 ml 11/28/18 docusate sodium [Colace] 200 mg PO QHS PRN #6 cap 11/29/18 hydroxyzine HCl 25 mg tablet 25 mg PO TID PRN #90 tab 12/04/18 lactulose 20 gram/30 mL oral 20 gm PO TID #500 ml 12/04/18 solution quetiapine 25 mg tablet 25 mg PO DAILY #30 tab 12/04/18 lubiprostone 8 mcg capsule 8 mcg PO BID #14 cap 12/12/18 magnesium citrate 120 ml PO BID PRN #296 ml 12/12/18 mirtazapine 15 mg tablet 15 mg PO HS #30 tab 12/12/18 Allergies Allergy/AdvReac Type Severity Reaction Status Date / Time No Known Allergies Allergy Verified 12/12/18 09:16 General Stated Complaint: Urinary FLASH: 4 Review of Systems Constitutional Denies fever(s) and Denies headache(s) Eyes Reports other (post cataract sx right eye) ENT Denies headache(s) Cardiovascular Denies chest pain and Denies dyspnea Respiratory Denies dyspnea Gastrointestinal Denies abdominal pain and Denies vomiting Genitourinary Reports as per HPI Musculoskeletal Reports other (no joint aches) Integumentary/Breasts Reports other (2 bites on abdomen) Neurologic Denies headache(s) [facility] Medical History COPD (chronic obstructive pulmonary disease) (Chronic) Adjustment disorder with anxiety (Chronic) Alcohol abuse (Chronic) Anxiety (Chronic) Dyspepsia (Chronic) Malignant neoplasm of right lung (Chronic) Tubular adenoma of colon (Inactive) Surgical History Status post cataract extraction and insertion of intraocular lens of left eye (Chronic 11/05/18) History of lung biopsy (Resolved) History of surgery on upper extremity (Resolved) colonoscopy (Inactive 01/19/15) Family History Father Essential hypertension Hyperlipidemia Paternal Uncle Heart disease Stroke Cerebral hemorrhage Hypertension Brother Cancer Social History (Updated 12/12/18 @ 09:20 by Brooke Augustine LPN) Smoking/Tobacco Use Status: Former Tobacco Use Quit Date: 06/05/98 Tobacco: How many years used: 30 Quit status: not considering quitting Alcohol Intake: former Drug use: Never Substance use type: does not use Adopted: No Foster care: No Household members: other Details: [employer]erg[employer] Care Provider 26/12 Housing: other Details: Care Bed at this time Number of Children: 0 Communication Needs: None current occupation: not working Current gender identity: male What type of physical activity do you participate in: none and other Details: started lifting weights Frequency: daily Seatbelt use: always Drive intox or ride w/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 Exam Const General: cooperative and no acute distress HENMT Head: normocephalic Mouth: moist mucous membranes Eyes Conjunctivae: conjunctival abnormality right subconjunctival hemorrhage EOM: EOM intact bilaterally Neck Neck: trachea midline and supple Resp Auscultation: clear to auscultation bilaterally, no rales, no rhonchi and no wheezes Cardio Jugular venous pressure: no JVD Rate: regular rate and not tachycardic Rhythm: regular rhythm GI Palpation: soft, not firm, no guarding, no masses, not rigid and nontender Skin General skin exam: no erythema Rashes: rashes noted (3 bites on abdomen, no retained tick parts, no EM) Neuro General: alert, awake, oriented x3 and tone normal Extrem General: no edema Psych Appearance: grossly normal Course Vital Signs Temperature 36.7 C 12/03/18 18:49 Pulse 83 12/03/18 18:49 Respiratory Rate 18 12/03/18 18:49 Blood Pressure 153/88 H 12/03/18 18:49 Pulse Oximetry 98 12/03/18 18:49 Temperature 36.7 C 12/03/18 18:49 Temperature Source Skin 12/03/18 18:49 Pulse 83 12/03/18 18:49 Respiratory Rate 18 12/03/18 18:49 Respiratory Effort Non-Labored 12/03/18 18:51 Blood Pressure 153/88 H 12/03/18 18:49 Blood Pressure Position Sitting 12/03/18 18:49 Pulse Oximetry 98 12/03/18 18:49 Oxygen Delivery Method Room Air 12/03/18 18:49 Oxygen Flow Rate 0 12/03/18 18:49 Pain Level 9 12/03/18 18:49
[2018-12-03] MEDS: Doxycycline Hyclate 100 MG CAP 200 MG PO (19:15)
[2018-12-03 20:28] LABS: Bilirubin Negative (Negative); Blood Trace-lysed (Negative); Clarity Clear (Clear); Glucose Negative (Negative); Ketones Negative (Negative); Leukocyte Esterase Negative (Negative); Nitrite Negative (Negative); Urobilinogen 0.2 EU/dL (Up TO 0.2); pH 5.5 (5-8)
[2018-12-03 20:39] LABS: Bacteria Negative HPF (Negative); C & S Indicated? No; Crystals Negative HPF (Negative); Epithelial Cells Rare HPF (Negative); Mucus Negative (Negative); RBC 0-2 (0-2); WBC 0-2 HPF (0-5)
[2018-12-03 20:51] VITALS: PULSE 72; RESP 16; O2SAT 98
== END 2018-12-03 20:52 | disposition home or self-care (01) ==
PROVIDERS: Emergency Provider Student in an Organized Health Care Education/Training Program; PCP Internal Medicine
DX: E86.0 Dehydration (principal); S30.861A Insect bite (nonvenomous) of abdominal wall, initial encounter; W57.XXXA Bitten or stung by nonvenomous insect and other nonvenomous arthropods, initial encounter; J44.9 Chronic obstructive pulmonary disease, unspecified; Z87.891 Personal history of nicotine dependence
CPT/HCPCS: 99283; 81003; 81015

== ENCOUNTER 2018-12-03 21:37 | Emergency (ER) | payer MEDICAID, SELFPAY ==
[2018-12-03 21:43] VITALS: BP 125/97; PULSE 82; RESP 16; TEMP 36.8; O2SAT 97
--- NOTE | 2018-12-03 21:48 | W.ED.GENAD ---
Discharge Plan Disposition Patient Disposition: HOME Condition: Stable Discharge Details Chief Complaint: GenMedical Clinical Impression: Tremor of left hand Primary Care Provider: Deborah Chow ED Provider: Mj Chen Home Meds and New Rx's Prescriptions: No Action quetiapine [Seroquel] 50 mg tablet 50 mg PO QHS Qty: 90 RF: 0 Spiriva with HandiHaler 18 mcg capsule, w/inhalation device 1 cap Inhalation DAILY Qty: 90 RF: 0 docusate sodium [Stool Softener] 100 mg tablet 100 mg PO DAILY RF: 0 morphine 15 mg tablet 7.5 mg PO QDAY MDD 15 PRN (Reason: dyspnea) Qty: 4 RF: 0 prednisone 20 mg tablet 20 mg PO BID RF: 0 magnesium citrate solution 75 ml PO DAILY PRN (Reason: constipation) Qty: 296 RF: 1 albuterol sulfate [ProAir HFA] 90 mcg/actuation HFA aerosol inhaler 2 puff Inhalation Q4H PRN PRN (Reason: Shortness Of Breath) Qty: 1 RF: 1 fluoxetine 20 mg tablet 20 mg PO DAILY Qty: 90 RF: 3 quetiapine [Seroquel] 25 mg tablet 25 mg PO BID Qty: 20 RF: 0 lorazepam 1 mg tablet 1 mg PO Q6H PRN (Reason: anxiety) RF: 0 hydroxyzine HCl 25 mg tablet 25 mg PO TID PRNRF: 0 OptiChamber Advantage 1 EACH spacer 1 ea Miscellaneous DIRECTED RF: 0 albuterol sulfate 2.5 MG/3 ML solution for nebulization 2.5 mg Inhalation Q4H PRN PRN (Reason: Shortness Of Breath) 30 Days RF: 0 guaifenesin [Mucus Relief] 400 mg Tablet 400 mg PO Q4H PRNRF: 0 docusate sodium [Colace] 100 mg capsule 200 mg PO QHS PRN (Reason: constipation) Qty: 6 RF: 0 pantoprazole 40 mg tablet,delayed release (DR/EC) 40 mg PO DAILY Qty: 90 RF: 3 Symbicort 10.2 GM HFA aerosol inhaler 10.2 gm Inhalation BID Qty: 3 RF: 3 diphenhydramine HCl [Benadryl] 25 MG capsule 25 mg PO Q6H PRNRF: 0 meclizine 25 mg tablet 25 mg PO TID PRN (Reason: dizziness) Qty: 20 RF: 0 ondansetron 4 mg tablet,disintegrating 4 mg PO TID-QID PRN (Reason: nausea and vomiting) Qty: 30 RF: 0 Discharge Instructions Instructions: Tremors (ED) Additional Instructions: follow up with your primary care provider within 1-2 weeks especially if symptoms continue Medical Decision Making 63 yo male comes in with a resting left hand tremor. Denies headaches, fevers, chills. He is speaking in full sentences on exam and does have a resting tremor that improves with motion, no focal neuro or sensation deficits. Seems consistent with tremor, advised f/u with pcp and return precautions given. Do not suspect seizure disorder or cva given normal neurological exam at this time Differential Diagnosis essential tremor, anxiety, HPI General Mode of arrival: ambulatory. Date/Time Provider Initiated Documentation: 12/03/18 21:46. Limitations to Documentation: no limitations. Information obtained by: patient. History of Present Illness 63 year old M presents to the emergency department with the chief complaint of left hand shaking, described as mild, Patient started experiencing this minute(s) (30) and it has been constant. No relieving factors improve symptom(s), No exacerbating factors reported . Patient notes no other symptoms.. Patient did receive the following treatments prior to arrival, none Related Data Home Medications Medication Instructions [facility]ed [facility] 12/03/18 albuterol sulfate 2.5 mg INHALATION Q4H PRN PRN 30 10/15/17 12/03/18 Days ml albuterol sulfate HFA 90 2 puff INHALATION Q4H PRN PRN #1 07/02/18 12/03/18 mcg/actuation aerosol inhaler inh guaifenesin [Mucus Relief] 400 mg PO Q4H PRN 09/09/18 12/03/18 Symbicort 10.2 gm INHALATION BID #3 inhaler 09/21/18 12/03/18 pantoprazole 40 mg PO DAILY #90 tab 09/21/18 12/03/18 quetiapine 50 mg tablet 50 mg PO QHS #90 tab 09/26/18 12/03/18 tiotropium bromide 18 mcg capsule 1 cap INHALATION DAILY #90 inh 09/26/18 12/03/18 with inhalation device fluoxetine 20 mg tablet 20 mg PO DAILY #90 tab-cap 10/02/18 12/03/18 quetiapine 25 mg tablet 25 mg PO BID #20 tab 10/17/18 12/03/18 meclizine 25 mg PO TID PRN #20 tab 10/23/18 12/03/18 docusate sodium 100 mg tablet 100 mg PO DAILY 10/30/18 12/03/18 diphenhydramine HCl [Benadryl] 25 mg PO Q6H PRN 11/01/18 12/03/18 lorazepam 1 mg tablet 1 mg PO Q6H PRN tab 11/09/18 12/03/18 ondansetron 4 mg PO TID-QID PRN #30 tab 11/12/18 12/03/18 morphine 15 mg immediate release 7.5 mg PO QDAY PRN #4 tab MDD 15 11/13/18 12/03/18 tablet hydroxyzine HCl 25 mg tablet 25 mg PO TID PRN tab 11/20/18 12/03/18 prednisone 20 mg tablet 20 mg PO BID 11/20/18 12/03/18 magnesium citrate oral solution 75 ml PO DAILY PRN #296 ml 11/28/18 12/03/18 docusate sodium [Colace] 200 mg PO QHS PRN #6 cap 11/29/18 12/03/18 Previous Rx's Medication Instructions Recorded [facility] Advantage kit 10/15/17 albuterol sulfate 2.5 mg INHALATION Q4H PRN PRN 30 10/15/17 Days ml albuterol sulfate HFA 90 2 puff INHALATION Q4H PRN PRN #1 07/02/18 mcg/actuation aerosol inhaler inh Symbicort 10.2 gm INHALATION BID #3 inhaler 09/21/18 pantoprazole 40 mg PO DAILY #90 tab 09/21/18 quetiapine 50 mg tablet 50 mg PO QHS #90 tab 09/26/18 tiotropium bromide 18 mcg capsule 1 cap INHALATION DAILY #90 inh 09/26/18 with inhalation device fluoxetine 20 mg tablet 20 mg PO DAILY #90 tab-cap 10/02/18 quetiapine 25 mg tablet 25 mg PO BID #20 tab 10/17/18 meclizine 25 mg PO TID PRN #20 tab 10/23/18 ondansetron 4 mg PO TID-QID PRN #30 tab 11/12/18 morphine 15 mg immediate release 7.5 mg PO QDAY PRN #4 tab MDD 15 11/13/18 tablet magnesium citrate oral solution 75 ml PO DAILY PRN #296 ml 11/28/18 docusate sodium [Colace] 200 mg PO QHS PRN #6 cap 11/29/18 Allergies Allergy/AdvReac Type Severity Reaction Status Date / Time No Known Allergies Allergy Verified 12/03/18 21:45 General Stated Complaint: GenMedical FLASH: 5 Review of Systems Review of Systems All systems reviewed & are unremarkable except as noted in HPI and below Constitutional Denies chills, Denies fever(s) and Denies weakness Cardiovascular Denies chest pain and Denies dyspnea Respiratory Denies cough and Denies dyspnea Gastrointestinal Denies abdominal pain, Denies nausea and Denies vomiting Neurologic Denies weakness [facility] Social History Smoking/Tobacco Use Status: Former Tobacco Use Quit Date: 06/05/98 Tobacco: How many years used: 30 Alcohol Intake: former Drug use: Never 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 Adopted: No Foster care: No Household members: family Housing: house Number of Children: 0 Communication Needs: None current occupation: not working Current gender identity: male What type of physical activity do you participate in: none and other Details: started lifting weights Frequency: daily Seatbelt use: always 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 Exam Const General: no acute distress Orientation: alert HENMT Head: normal to inspection Ears: external ears normal General nose exam: external nose normal Mouth: moist mucous membranes Eyes General: appearance normal, both eyes and all related structures Neck Neck: normal visual inspection Resp Effort & Inspection: normal respiratory effort and able to speak in complete sentences Cardio Rate: regular rate Skin General skin exam: no rashes or lesions noted Neuro General: alert, oriented x3 and gait normal Extrem General: normal to inspection Psych Mental Status: mental status grossly normal Course Vital Signs Temperature 36.8 C 12/03/18 21:43 Pulse 82 12/03/18 21:43 Respiratory Rate 16 12/03/18 21:43 Blood Pressure 125/97 H 12/03/18 21:43 Pulse Oximetry 97 12/03/18 21:43 Temperature 36.8 C 12/03/18 21:43 Temperature Source Temporal Artery Scan 12/03/18 21:43 Pulse 82 12/03/18 21:43 Respiratory Rate 16 12/03/18 21:43 Respiratory Effort 12/03/18 21:43 Blood Pressure 125/97 H 12/03/18 21:43 Pulse Oximetry 97 12/03/18 21:43 Oxygen Delivery Method Room Air 12/03/18 21:43 Oxygen Flow Rate 0 12/03/18 21:43 Pain Level 0 12/03/18 21:43
--- NOTE | 2018-12-03 21:53 | ED.GENADUL_ITS ---
Discharge Plan Disposition Patient Disposition: HOME Condition: Stable Discharge Details Chief Complaint: GenMedical Clinical Impression: Tremor of left hand Primary Care Provider: Deborah Chow ED Provider: Mj Chen Home Meds and New Rx's Prescriptions: No Action quetiapine [Seroquel] 50 mg tablet 50 mg PO QHS Qty: 90 RF: 0 Spiriva with HandiHaler 18 mcg capsule, w/inhalation device 1 cap Inhalation DAILY Qty: 90 RF: 0 docusate sodium [Stool Softener] 100 mg tablet 100 mg PO DAILY RF: 0 morphine 15 mg tablet 7.5 mg PO QDAY MDD 15 PRN (Reason: dyspnea) Qty: 4 RF: 0 prednisone 20 mg tablet 20 mg PO BID RF: 0 magnesium citrate solution 75 ml PO DAILY PRN (Reason: constipation) Qty: 296 RF: 1 albuterol sulfate [ProAir HFA] 90 mcg/actuation HFA aerosol inhaler 2 puff Inhalation Q4H PRN PRN (Reason: Shortness Of Breath) Qty: 1 RF: 1 fluoxetine 20 mg tablet 20 mg PO DAILY Qty: 90 RF: 3 quetiapine [Seroquel] 25 mg tablet 25 mg PO BID Qty: 20 RF: 0 lorazepam 1 mg tablet 1 mg PO Q6H PRN (Reason: anxiety) RF: 0 hydroxyzine HCl 25 mg tablet 25 mg PO TID PRNRF: 0 OptiChamber Advantage 1 EACH spacer 1 ea Miscellaneous DIRECTED RF: 0 albuterol sulfate 2.5 MG/3 ML solution for nebulization 2.5 mg Inhalation Q4H PRN PRN (Reason: Shortness Of Breath) 30 Days RF: 0 guaifenesin [Mucus Relief] 400 mg Tablet 400 mg PO Q4H PRNRF: 0 docusate sodium [Colace] 100 mg capsule 200 mg PO QHS PRN (Reason: constipation) Qty: 6 RF: 0 pantoprazole 40 mg tablet,delayed release (DR/EC) 40 mg PO DAILY Qty: 90 RF: 3 Symbicort 10.2 GM HFA aerosol inhaler 10.2 gm Inhalation BID Qty: 3 RF: 3 diphenhydramine HCl [Benadryl] 25 MG capsule 25 mg PO Q6H PRNRF: 0 meclizine 25 mg tablet 25 mg PO TID PRN (Reason: dizziness) Qty: 20 RF: 0 ondansetron 4 mg tablet,disintegrating 4 mg PO TID-QID PRN (Reason: nausea and vomiting) Qty: 30 RF: 0 Discharge Instructions Instructions: Tremors (ED) Additional Instructions: follow up with your primary care provider within 1-2 weeks especially if symptoms continue Medical Decision Making 63 yo male comes in with a resting left hand tremor. Denies headaches, fevers, chills. He is speaking in full sentences on exam and does have a resting tremor that improves with motion, no focal neuro or sensation deficits. Seems consistent with tremor, advised f/u with pcp and return precautions given. Do not suspect seizure disorder or cva given normal neurological exam at this time Differential Diagnosis essential tremor, anxiety, HPI General Mode of arrival: ambulatory . Date/Time Provider Initiated Documentation: 12/03/18 21:46 . Limitations to Documentation: no limitations . Information obtained by: patient . History of Present Illness 63 year old M presents to the emergency department with the chief complaint of left hand shaking, described as mild, Patient started experiencing this minute(s) (30) and it has been constant. No relieving factors improve symptom(s), No exacerbating factors reported . Patient notes no other symptoms.. Patient did receive the following treatments prior to arrival, none Related Data Home Medications Medication Instructions Recorded [facility]/17 12/03/18 albuterol sulfate 2.5 mg INHALATION Q4H PRN PRN 30 10/15/17 12/03/18 Days ml albuterol sulfate HFA 90 2 puff INHALATION Q4H PRN PRN #1 07/02/18 12/03/18 mcg/actuation aerosol inhaler inh guaifenesin [Mucus Relief] 400 mg PO Q4H PRN 09/09/18 12/03/18 Symbicort 10.2 gm INHALATION BID #3 inhaler 09/21/18 12/03/18 pantoprazole 40 mg PO DAILY #90 tab 09/21/18 12/03/18 quetiapine 50 mg tablet 50 mg PO QHS #90 tab 09/26/18 12/03/18 tiotropium bromide 18 mcg capsule 1 cap INHALATION DAILY #90 inh 09/26/18 12/03/18 with inhalation device fluoxetine 20 mg tablet 20 mg PO DAILY #90 tab-cap 10/02/18 12/03/18 quetiapine 25 mg tablet 25 mg PO BID #20 tab 10/17/18 12/03/18 meclizine 25 mg PO TID PRN #20 tab 10/23/18 12/03/18 docusate sodium 100 mg tablet 100 mg PO DAILY 10/30/18 12/03/18 diphenhydramine HCl [Benadryl] 25 mg PO Q6H PRN 11/01/18 12/03/18 lorazepam 1 mg tablet 1 mg PO Q6H PRN tab 11/09/18 12/03/18 ondansetron 4 mg PO TID-QID PRN #30 tab 11/12/18 12/03/18 morphine 15 mg immediate release 7.5 mg PO QDAY PRN #4 tab MDD 15 11/13/18 12/03/18 tablet hydroxyzine HCl 25 mg tablet 25 mg PO TID PRN tab 11/20/18 12/03/18 prednisone 20 mg tablet 20 mg PO BID 11/20/18 12/03/18 magnesium citrate oral solution 75 ml PO DAILY PRN #296 ml 11/28/18 12/03/18 docusate sodium [Colace] 200 mg PO QHS PRN #6 cap 11/29/18 12/03/18 Previous Rx's Medication Instructions Recorded [facility] Advantage kit 10/15/17 albuterol sulfate 2.5 mg INHALATION Q4H PRN PRN 30 10/15/17 Days ml albuterol sulfate HFA 90 2 puff INHALATION Q4H PRN PRN #1 07/02/18 mcg/actuation aerosol inhaler inh Symbicort 10.2 gm INHALATION BID #3 inhaler 09/21/18 pantoprazole 40 mg PO DAILY #90 tab 09/21/18 quetiapine 50 mg tablet 50 mg PO QHS #90 tab 09/26/18 tiotropium bromide 18 mcg capsule 1 cap INHALATION DAILY #90 inh 09/26/18 with inhalation device fluoxetine 20 mg tablet 20 mg PO DAILY #90 tab-cap 10/02/18 quetiapine 25 mg tablet 25 mg PO BID #20 tab 10/17/18 meclizine 25 mg PO TID PRN #20 tab 10/23/18 ondansetron 4 mg PO TID-QID PRN #30 tab 11/12/18 morphine 15 mg immediate release 7.5 mg PO QDAY PRN #4 tab MDD 15 11/13/18 tablet magnesium citrate oral solution 75 ml PO DAILY PRN #296 ml 11/28/18 docusate sodium [Colace] 200 mg PO QHS PRN #6 cap 11/29/18 Allergies Allergy/AdvReac Type Severity Reaction Status Date / Time No Known Allergies Allergy Verified 12/03/18 21:45 General Stated Complaint: GenMedical FLASH: 5 Review of Systems Review of Systems All systems reviewed & are unremarkable except as noted in HPI and below Constitutional Denies chills, Denies fever(s) and Denies weakness Cardiovascular Denies chest pain and Denies dyspnea Respiratory Denies cough and Denies dyspnea Gastrointestinal Denies abdominal pain, Denies nausea and Denies vomiting Neurologic Denies weakness [facility] Social History Smoking/Tobacco Use Status: Former Tobacco Use Quit Date: 06/05/98 Tobacco: How many years used: 30 Alcohol Intake: former Drug use: Never 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 Adopted: No Foster care: No Household members: family Housing: house Number of Children: 0 Communication Needs: None current occupation: not working Current gender identity: male What type of physical activity do you participate in: none and other Details: started lifting weights Frequency: daily Seatbelt use: always 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 Exam Const General: no acute distress Orientation: alert HENMT Head: normal to inspection Ears: external ears normal General nose exam: external nose normal Mouth: moist mucous membranes Eyes General: appearance normal, both eyes and all related structures Neck Neck: normal visual inspection Resp Effort & Inspection: normal respiratory effort and able to speak in complete sentences Cardio Rate: regular rate Skin General skin exam: no rashes or lesions noted Neuro General: alert, oriented x3 and gait normal Extrem General: normal to inspection Psych Mental Status: mental status grossly normal Course Vital Signs Temperature 36.8 C 12/03/18 21:43 Pulse 82 12/03/18 21:43 Respiratory Rate 16 12/03/18 21:43 Blood Pressure 125/97 H 12/03/18 21:43 Pulse Oximetry 97 12/03/18 21:43 Temperature 36.8 C 12/03/18 21:43 Temperature Source Temporal Artery Scan 12/03/18 21:43 Pulse 82 12/03/18 21:43 Respiratory Rate 16 12/03/18 21:43 Respiratory Effort 12/03/18 21:43 Blood Pressure 125/97 H 12/03/18 21:43 Pulse Oximetry 97 12/03/18 21:43 Oxygen Delivery Method Room Air 12/03/18 21:43 Oxygen Flow Rate 0 12/03/18 21:43 Pain Level 0 12/03/18 21:43
== END 2018-12-03 21:52 | disposition home or self-care (01) ==
PROVIDERS: Emergency Provider Emergency Medicine; PCP Internal Medicine
DX: R25.1 Tremor, unspecified (principal); F41.9 Anxiety disorder, unspecified
CPT/HCPCS: 99282

== ENCOUNTER 2018-12-06 15:55 | Emergency (ER) | payer MEDICAID, SELFPAY ==
[2018-12-06 15:58] VITALS: BP 146/78; PULSE 77; RESP 16; TEMP 36.7; O2SAT 95
[2018-12-06 16:04] VITALS: RESP 16
--- NOTE | 2018-12-06 16:26 | NUR.NOTE ---
Nursing Note: patient wearing 1 pair jeans with 2 pair fleece pants and 2 pair socks--tempurature outside in the 80's---1 pair socks and both pair fleece pants removed.
[2018-12-06 17:10] VITALS: BP 127/95; PULSE 77; RESP 15; TEMP 36.8; O2SAT 97
--- NOTE | 2018-12-06 17:40 | W.ED.GENAD ---
Discharge Plan Disposition Patient Disposition: HOME Discharge Details Chief Complaint: GenMedical Clinical Impression: Illness, unspecified Primary Care Provider: Deborah Chow ED Provider: Elliot Lizarraga Home Meds and New Rx's Prescriptions: Continued quetiapine [Seroquel] 50 mg tablet 50 mg PO QHS Qty: 90 RF: 0 Spiriva with HandiHaler 18 mcg capsule, w/inhalation device 1 cap Inhalation DAILY Qty: 90 RF: 0 docusate sodium [Stool Softener] 100 mg tablet 100 mg PO DAILY RF: 0 prednisone 20 mg tablet 20 mg PO BID RF: 0 magnesium citrate solution 75 ml PO DAILY PRN (Reason: constipation) Qty: 296 RF: 1 albuterol sulfate [ProAir HFA] 90 mcg/actuation HFA aerosol inhaler 2 puff Inhalation Q4H PRN PRN (Reason: Shortness Of Breath) Qty: 1 RF: 1 fluoxetine 20 mg tablet 20 mg PO DAILY Qty: 90 RF: 3 lactulose 20 gram/30 mL solution 20 gm PO TID Qty: 500 RF: 0 quetiapine [Seroquel] 25 mg tablet 25 mg PO DAILY Qty: 30 RF: 0 hydroxyzine HCl 25 mg tablet 25 mg PO TID PRN (Reason: anxiety) Qty: 90 RF: 0 (DME) [employer] Advantage 1 EACH spacer 1 ea Miscellaneous DIRECTED RF: 0 albuterol sulfate 2.5 MG/3 ML solution for nebulization 2.5 mg Inhalation Q4H PRN PRN (Reason: Shortness Of Breath) 30 Days RF: 0 docusate sodium [Colace] 100 mg capsule 200 mg PO QHS PRN (Reason: constipation) Qty: 6 RF: 0 pantoprazole 40 mg tablet,delayed release (DR/EC) 40 mg PO DAILY Qty: 90 RF: 3 Symbicort 10.2 GM HFA aerosol inhaler 10.2 gm Inhalation BID Qty: 3 RF: 3 diphenhydramine HCl [Benadryl] 25 MG capsule 25 mg PO Q6H PRNRF: 0 meclizine 25 mg tablet 25 mg PO TID PRN (Reason: dizziness) Qty: 20 RF: 0 ondansetron 4 mg tablet,disintegrating 4 mg PO TID-QID PRN (Reason: nausea and vomiting) Qty: 30 RF: 0 No Action magnesium citrate solution 120 ml PO BID PRN (Reason: constipation) Qty: 296 RF: 0 lubiprostone 8 mcg capsule 8 mcg PO BID Qty: 14 RF: 0 mirtazapine 15 mg tablet 15 mg PO HS Qty: 30 RF: 1 Discharge Instructions Additional Instructions: Please wear appropriately light layered clothing for warmer weather like today. Drink plenty of fluid to stay hydrated. Please contact your primary care physician to arrange follow-up. Return to the ER for any worsening or new concerning symptoms. Referrals: Deborah Chow MD [Primary Care Provider] - Discharge Data Discharge Date/Time-TO BE ENTERED AT DEPARTURE: 12/06/18 18:35 Medical Decision Making 63-year-old male, presents today for his 28th visit to the ED in the past 30 days, here with complaint of generally not feeling well. No concerning findings on exam. Screening ECG was reviewed and interpreted by me: Normal sinus rhythm 72 bpm, normal axis, nondiagnostic. It is quite warm outside today and patient was wearing multiple layers of clothing. I asked him about this and he noted he just did not take them off this morning. Clothing was removed. He may have had mild hyperthermia. No heatstroke. Patient was observed in the emergency department and remained stable. Stable vital signs. Medical screening exam was performed. No acute medical condition identified. I encouraged the patient to follow-up with his primary care physician. He was encouraged to return for any new concerning symptoms. HPI General Mode of arrival: ambulatory. Date/Time Provider Initiated Documentation: 12/06/18 17:18. Limitations to Documentation: no limitations. Information obtained by: patient. HPI Narrative: 63-year-old male well-known to the emergency department here in [facility] presents today generally not feeling well. Patient has no focal complaints but states he does not feel well. Patient has no chest pain. No abdominal pain. He does have some shortness of breath which is not an acute issue. Related Data Home Medications Medication Instructions Recorded Confirmed [employer] Advantage kit 10/15/17 12/12/18 albuterol sulfate 2.5 mg INHALATION Q4H PRN PRN 30 10/15/17 12/12/18 Days ml albuterol sulfate 90 mcg/actuation 2 puff INHALATION Q4H PRN PRN #1 07/02/18 12/12/18 aerosol inhaler inh Symbicort 10.2 gm INHALATION BID #3 inhaler 09/21/18 12/12/18 pantoprazole 40 mg PO DAILY #90 tab 09/21/18 12/12/18 quetiapine 50 mg tablet 50 mg PO QHS #90 tab 09/26/18 12/12/18 tiotropium bromide 18 mcg capsule 1 cap INHALATION DAILY #90 inh 09/26/18 12/12/18 with inhalation device fluoxetine 20 mg tablet 20 mg PO DAILY #90 tab-cap 10/02/18 12/12/18 meclizine 25 mg PO TID PRN #20 tab 10/23/18 12/12/18 docusate sodium 100 mg tablet 100 mg PO DAILY 10/30/18 12/12/18 diphenhydramine HCl [Benadryl] 25 mg PO Q6H PRN 11/01/18 12/12/18 ondansetron 4 mg PO TID-QID PRN #30 tab 11/12/18 12/12/18 prednisone 20 mg tablet 20 mg PO BID 11/20/18 12/12/18 magnesium citrate 75 ml PO DAILY PRN #296 ml 11/28/18 12/12/18 docusate sodium [Colace] 200 mg PO QHS PRN #6 cap 11/29/18 12/12/18 hydroxyzine HCl 25 mg tablet 25 mg PO TID PRN #90 tab 12/04/18 12/12/18 lactulose 20 gram/30 mL oral 20 gm PO TID #500 ml 12/04/18 12/12/18 solution quetiapine 25 mg tablet 25 mg PO DAILY #30 tab 12/04/18 12/12/18 lubiprostone 8 mcg capsule 8 mcg PO BID #14 cap 12/12/18 12/12/18 magnesium citrate 120 ml PO BID PRN #296 ml 12/12/18 12/12/18 mirtazapine 15 mg tablet 15 mg PO HS #30 tab 12/12/18 12/12/18 Previous Rx's Medication Instructions Recorded [facility] Advantage kit 10/15/17 albuterol sulfate 2.5 mg INHALATION Q4H PRN PRN 30 10/15/17 Days ml albuterol sulfate 90 mcg/actuation 2 puff INHALATION Q4H PRN PRN #1 07/02/18 aerosol inhaler inh Symbicort 10.2 gm INHALATION BID #3 inhaler 09/21/18 pantoprazole 40 mg PO DAILY #90 tab 09/21/18 quetiapine 50 mg tablet 50 mg PO QHS #90 tab 09/26/18 tiotropium bromide 18 mcg capsule 1 cap INHALATION DAILY #90 inh 09/26/18 with inhalation device fluoxetine 20 mg tablet 20 mg PO DAILY #90 tab-cap 10/02/18 meclizine 25 mg PO TID PRN #20 tab 10/23/18 ondansetron 4 mg PO TID-QID PRN #30 tab 11/12/18 magnesium citrate 75 ml PO DAILY PRN #296 ml 11/28/18 docusate sodium [Colace] 200 mg PO QHS PRN #6 cap 11/29/18 hydroxyzine HCl 25 mg tablet 25 mg PO TID PRN #90 tab 12/04/18 lactulose 20 gram/30 mL oral 20 gm PO TID #500 ml 12/04/18 solution quetiapine 25 mg tablet 25 mg PO DAILY #30 tab 12/04/18 lubiprostone 8 mcg capsule 8 mcg PO BID #14 cap 12/12/18 magnesium citrate 120 ml PO BID PRN #296 ml 12/12/18 mirtazapine 15 mg tablet 15 mg PO HS #30 tab 12/12/18 Allergies Allergy/AdvReac Type Severity Reaction Status Date / Time No Known Allergies Allergy Verified 12/12/18 09:16 General Stated Complaint: GenMedical FLASH: 5 Review of Systems Constitutional Denies fever(s) Cardiovascular Denies chest pain and Reports dyspnea Respiratory Reports dyspnea [facility] Social History (Updated 12/12/18 @ 09:20 by Brooke Augustine LPN) Smoking/Tobacco Use Status: Former Tobacco Use Quit Date: 06/05/98 Tobacco: How many years used: 30 Quit status: not considering quitting Alcohol Intake: former Drug use: Never Substance use type: does not use Adopted: No Foster care: No Household members: other 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 26/12 Housing: other Details: Care Bed at this time Number of Children: 0 Communication Needs: None current occupation: not working Current gender identity: male What type of physical activity do you participate in: none and other Details: started lifting weights Frequency: daily Seatbelt use: always Drive intox or ride w/intox log 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 Exam Const General: cooperative and no acute distress HENMT Head: normocephalic and atraumatic Mouth: moist mucous membranes Eyes Conjunctivae: normal conjunctivae Sclera: normal sclerae EOM: EOM intact bilaterally Neck Neck: trachea midline and supple Resp Auscultation: clear to auscultation bilaterally, no rales, no rhonchi and no wheezes Cardio Jugular venous pressure: no JVD Rate: regular rate and not tachycardic Rhythm: regular rhythm GI Palpation: soft, not firm, no guarding, no masses, not rigid and nontender Skin General skin exam: no rashes or lesions noted Neuro General: alert, awake, oriented x3 and tone normal Extrem General: no edema Psych Appearance: grossly normal Mental Status: mental status grossly normal Speech and Movement: speech and movement normal Course Vital Signs Temperature 36.7 C 12/06/18 15:58 Pulse 77 12/06/18 15:58 Respiratory Rate 16 12/06/18 15:58 Blood Pressure 146/78 H 12/06/18 15:58 Pulse Oximetry 95 12/06/18 15:58 Temperature 36.8 C 12/06/18 17:10 Temperature Source Tympanic 12/06/18 17:10 Pulse 77 12/06/18 17:10 Respiratory Rate 15 12/06/18 17:10 Respiratory Effort Non-Labored 12/06/18 16:04 Respiratory Depth Normal 12/06/18 16:04 Respiratory Pattern Normal 12/06/18 16:04 Blood Pressure 127/95 H 12/06/18 17:10 Blood Pressure Position Sitting 12/06/18 15:58 Pulse Oximetry 97 12/06/18 17:10 Oxygen Delivery Method Room Air 12/06/18 17:10 Oxygen Flow Rate 0 12/06/18 17:10 Pain Level 8 12/06/18 15:58
[2018-12-06 18:39] VITALS: BP 130/86; PULSE 75; RESP 16; TEMP 36.5; O2SAT 97
== END 2018-12-06 18:35 | disposition home or self-care (01) ==
PROVIDERS: Emergency Provider Student in an Organized Health Care Education/Training Program; PCP Internal Medicine
DX: F41.9 Anxiety disorder, unspecified (principal)
CPT/HCPCS: 93005; 99283; 93010

== ENCOUNTER 2018-12-07 17:10 | Emergency (ER) | payer MEDICAID, SELFPAY ==
[2018-12-07 17:11] VITALS: BP 142/94; PULSE 82; RESP 95; TEMP 37.3; O2SAT 96
[2018-12-07 17:16] VITALS: RESP 18
--- NOTE | 2018-12-07 17:21 | DI.RAD_ITS ---
SYMPTOM/DIAGNOSIS: SOB PA AND LATERAL CHEST: The heart is not enlarged. The lungs are predominantly clear with some changes of scarring. There is a mass-like or consolidative radiodensity of the right upper lobe, this was present on previous chest radiographs of 10/14/18 and . This may be questionably slightly smaller but persists. The findings may represent persistent pneumonia but the possibility of neoplastic disease would have to be raised. Additional evaluation with chest CT is recommended.
--- NOTE | 2018-12-07 17:25 | W.ED.GENAD ---
Discharge Plan Disposition Patient Disposition: HOME Discharge Details Chief Complaint: SOB Clinical Impression: Hypermagnesemia, Anxiety Primary Care Provider: Deborah Chow ED Provider: Elliot Lizarraga Home Meds and New Rx's Prescriptions: Continued quetiapine [Seroquel] 50 mg tablet 50 mg PO QHS Qty: 90 RF: 0 Spiriva with HandiHaler 18 mcg capsule, w/inhalation device 1 cap Inhalation DAILY Qty: 90 RF: 0 docusate sodium [Stool Softener] 100 mg tablet 100 mg PO DAILY RF: 0 prednisone 20 mg tablet 20 mg PO BID RF: 0 magnesium citrate solution 75 ml PO DAILY PRN (Reason: constipation) Qty: 296 RF: 1 morphine 15 mg tablet 7.5 mg PO BID MDD 15 PRN (Reason: dyspnea) Qty: 5 RF: 0 albuterol sulfate [ProAir HFA] 90 mcg/actuation HFA aerosol inhaler 2 puff Inhalation Q4H PRN PRN (Reason: Shortness Of Breath) Qty: 1 RF: 1 fluoxetine 20 mg tablet 20 mg PO DAILY Qty: 90 RF: 3 lactulose 20 gram/30 mL solution 20 gm PO TID Qty: 500 RF: 0 quetiapine [Seroquel] 25 mg tablet 25 mg PO DAILY Qty: 30 RF: 0 hydroxyzine HCl 25 mg tablet 25 mg PO TID PRN (Reason: anxiety) Qty: 90 RF: 0 OptiChamber Advantage 1 EACH spacer 1 ea Miscellaneous DIRECTED RF: 0 albuterol sulfate 2.5 MG/3 ML solution for nebulization 2.5 mg Inhalation Q4H PRN PRN (Reason: Shortness Of Breath) 30 Days RF: 0 docusate sodium [Colace] 100 mg capsule 200 mg PO QHS PRN (Reason: constipation) Qty: 6 RF: 0 pantoprazole 40 mg tablet,delayed release (DR/EC) 40 mg PO DAILY Qty: 90 RF: 3 Symbicort 10.2 GM HFA aerosol inhaler 10.2 gm Inhalation BID Qty: 3 RF: 3 diphenhydramine HCl [Benadryl] 25 MG capsule 25 mg PO Q6H PRNRF: 0 meclizine 25 mg tablet 25 mg PO TID PRN (Reason: dizziness) Qty: 20 RF: 0 ondansetron 4 mg tablet,disintegrating 4 mg PO TID-QID PRN (Reason: nausea and vomiting) Qty: 30 RF: 0 Discharge Instructions Instructions: Anxiety (ED) Additional Instructions: Please drink plenty of fluid to stay hydrated. Please contact your primary care physician to arrange follow-up. Return to the ER for any worsening or new concerning symptoms. Go to the care bed. Referrals: Deborah Chow MD [Primary Care Provider] - Medical Decision Making 17:30 -- 63-year-old male with anxiety disorder here for his 29th ED visit in the past 30 days with severe anxiety and shortness of breath. Patient is saturating well in no respiratory distress. Lungs clear to auscultation throughout all roman. I suspect his shortness of breath is secondary to anxiety. Iggy's anxiety disorder at this point is debilitating. He is unable to function in daily life. He saw his primary care physician today who has been fully accessible to him and unable to effectively treat his current state. Iggy has been using the emergency department excessively over the past 2 months. He has had extensive medical work-up and there is no medical explanation for his symptoms. I believe he would benefit from inpatient psychiatric treatment of his severe anxiety. Iggy is agreeable to transfer to a psychiatric specialty treatment facility. I have consulted crisis screener to evaluate the patient for potential psychiatric placement. --Chest x-ray interpreted by radiology: IMPRESSION: Consolidation in the right upper lung field suggestive of lesion or pneumonia. Consider CT Patient has known lung mass that has been stable and seen on prior imaging. --Labs reviewed and nondiagnostic. Magnesium is slightly elevated. I will give IV fluid bolus. Screening ECG was reviewed and interpreted by me: Sinus bradycardia 58 bpm, normal axis, nondiagnostic. Patient is medically stable for psychiatric evaluation. Crisis screener here evaluating the patient. --Patient evaluated by crisis screener who notes patient patient will not be accepted at psychiatric treatment facility but can offer a crisis bed. Patient agreeable to crisis bed. I hope that with continued monitoring and a change of environment, anxiety will improve. Nighttime medications hydroxyzine, type pain and prednisone provided. Usual and customary discharge instructions were provided. HPI General Mode of arrival: ambulatory. Date/Time Provider Initiated Documentation: 12/07/18 17:10. Limitations to Documentation: no limitations. Information obtained by: patient. HPI Narrative: 63-year-old male well-known to the emergency department, history of COPD, stable small lung mass, alcohol abuse in the past, now sober, adjustment disorder with anxiety, anxiety disorder,, here with severe anxiety. Patient has had excessive ED utilization over the past 1 to 2 months. Patient was seen here just yesterday and discharged home. He saw his primary care physician earlier today. He returns now noting severe anxiety and shortness of breath. Symptoms are severe. No modifiers. Iggy specifically notes that he feels like he is going to . He has been feeling the exact same for every recent ED visit over the past month. Iggy is living at home with parents and has good social support. Related Data Home Medications Medication Instructions Recorded Confirmed [facility] Advantage kit 10/15/17 12/07/18 albuterol sulfate 2.5 mg INHALATION Q4H PRN PRN 30 10/15/17 12/07/18 Days ml albuterol sulfate HFA 90 2 puff INHALATION Q4H PRN PRN #1 07/02/18 12/07/18 mcg/actuation aerosol inhaler inh Symbicort 10.2 gm INHALATION BID #3 inhaler 09/21/18 12/07/18 pantoprazole 40 mg PO DAILY #90 tab 09/21/18 12/07/18 quetiapine 50 mg tablet 50 mg PO QHS #90 tab 09/26/18 12/07/18 tiotropium bromide 18 mcg capsule 1 cap INHALATION DAILY #90 inh 09/26/18 12/07/18 with inhalation device fluoxetine 20 mg tablet 20 mg PO DAILY #90 tab-cap 10/02/18 12/07/18 meclizine 25 mg PO TID PRN #20 tab 10/23/18 12/07/18 docusate sodium 100 mg tablet 100 mg PO DAILY 10/30/18 12/07/18 diphenhydramine HCl [Benadryl] 25 mg PO Q6H PRN 11/01/18 12/07/18 ondansetron 4 mg PO TID-QID PRN #30 tab 11/12/18 12/07/18 prednisone 20 mg tablet 20 mg PO BID 11/20/18 12/07/18 magnesium citrate oral solution 75 ml PO DAILY PRN #296 ml 11/28/18 12/07/18 docusate sodium [Colace] 200 mg PO QHS PRN #6 cap 11/29/18 12/07/18 hydroxyzine HCl 25 mg tablet 25 mg PO TID PRN #90 tab 12/04/18 12/07/18 lactulose 20 gram/30 mL oral 20 gm PO TID #500 ml 12/04/18 12/07/18 solution quetiapine 25 mg tablet 25 mg PO DAILY #30 tab 12/04/18 12/07/18 morphine 15 mg immediate release 7.5 mg PO BID PRN #5 tab-cap MDD 15 12/07/18 12/07/18 tablet Previous Rx's Medication Instructions Recorded OptiChamber Advantage kit 10/15/17 albuterol sulfate 2.5 mg INHALATION Q4H PRN PRN 30 10/15/17 Days ml albuterol sulfate HFA 90 2 puff INHALATION Q4H PRN PRN #1 07/02/18 mcg/actuation aerosol inhaler inh Symbicort 10.2 gm INHALATION BID #3 inhaler 09/21/18 pantoprazole 40 mg PO DAILY #90 tab 09/21/18 quetiapine 50 mg tablet 50 mg PO QHS #90 tab 09/26/18 tiotropium bromide 18 mcg capsule 1 cap INHALATION DAILY #90 inh 09/26/18 with inhalation device fluoxetine 20 mg tablet 20 mg PO DAILY #90 tab-cap 10/02/18 meclizine 25 mg PO TID PRN #20 tab 10/23/18 ondansetron 4 mg PO TID-QID PRN #30 tab 11/12/18 magnesium citrate oral solution 75 ml PO DAILY PRN #296 ml 11/28/18 docusate sodium [Colace] 200 mg PO QHS PRN #6 cap 11/29/18 hydroxyzine HCl 25 mg tablet 25 mg PO TID PRN #90 tab 12/04/18 lactulose 20 gram/30 mL oral 20 gm PO TID #500 ml 12/04/18 solution quetiapine 25 mg tablet 25 mg PO DAILY #30 tab 12/04/18 morphine 15 mg immediate release 7.5 mg PO BID PRN #5 tab-cap MDD 15 12/07/18 tablet Allergies Allergy/AdvReac Type Severity Reaction Status Date / Time No Known Allergies Allergy Verified 12/07/18 10:29 General Stated Complaint: SOB FLASH: 4 Review of Systems Review of Systems All systems reviewed & are unremarkable except as noted in HPI and below Cardiovascular Denies chest pain and Reports dyspnea Respiratory Reports dyspnea Psychiatric Reports anxiety PFSH Medical History COPD (chronic obstructive pulmonary disease) (Chronic) Adjustment disorder with anxiety (Chronic) Alcohol abuse (Chronic) Anxiety (Chronic) Dyspepsia (Chronic) Malignant neoplasm of right lung (Chronic) Tubular adenoma of colon (Inactive) Surgical History Status post cataract extraction and insertion of intraocular lens of left eye (Chronic 11/05/18) History of lung biopsy (Resolved) History of surgery on upper extremity (Resolved) colonoscopy (Inactive 01/19/15) Family History Father Essential hypertension Hyperlipidemia Paternal Uncle Heart disease Stroke Cerebral hemorrhage Hypertension Brother Cancer Social History Smoking/Tobacco Use Status: Former Tobacco Use Quit Date: 06/05/98 Tobacco: How many years used: 30 Alcohol Intake: former Drug use: Never 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 Adopted: No Foster care: No Household members: family Housing: house Number of Children: 0 Communication Needs: None current occupation: not working Current gender identity: male What type of physical activity do you participate in: none and other Details: started lifting weights Frequency: daily Seatbelt use: always Drive intox or ride w/intox national dedicated 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 Exam Const General: cooperative and no acute distress HENMT Head: normocephalic Mouth: moist mucous membranes Eyes Conjunctivae: normal conjunctivae Sclera: normal sclerae EOM: EOM intact bilaterally Neck Neck: trachea midline and supple Resp Auscultation: clear to auscultation bilaterally, no rales, no rhonchi and no wheezes Cardio Jugular venous pressure: no JVD Rate: regular rate and not tachycardic Rhythm: regular rhythm GI Palpation: soft, not firm, no guarding, no masses, not rigid and nontender Skin General skin exam: no rashes or lesions noted Neuro General: alert, awake, oriented x3 and tone normal Extrem General: no calf tenderness and no edema Psych Appearance: grossly normal Mental Status: mental status grossly normal Speech and Movement: speech and movement normal Mood: anxious mood Affect: anxious affect Attitude: cooperative Thought Process: perseverating (on personal wellbeing) Thought Content: suicidality Insight: limited Course Vital Signs Temperature 37.3 C 12/07/18 17:11 Pulse 82 12/07/18 17:11 Respiratory Rate 95 H 12/07/18 17:11 Blood Pressure 142/94 H 12/07/18 17:11 Pulse Oximetry 96 12/07/18 17:11 Temperature 37.3 C 12/07/18 17:11 Temperature Source Tympanic 12/07/18 17:11 Pulse 82 12/07/18 17:11 Respiratory Rate 18 12/07/18 17:16 Respiratory Effort Non-Labored 12/07/18 17:16 Respiratory Depth Normal 12/07/18 17:16 Respiratory Pattern Normal 12/07/18 17:16 Blood Pressure 142/94 H 12/07/18 17:11 Pulse Oximetry 96 12/07/18 17:11 Oxygen Delivery Method Room Air 12/07/18 17:11 Oxygen Flow Rate 0 12/07/18 17:11 Pain Level 0 12/07/18 17:11
[2018-12-07 17:41] LABS: Abs Immature Grans 0.08 k/cumm (0.0-0.09); Absolute Basophil Count 0.01 k/cumm (0.0-0.2); Absolute Eosinophil Count 0.03 k/cumm (0.0-0.7); Absolute Lymphocyte Count 0.85 k/cumm (1.2-3.4); Absolute Monocyte Count 0.73 k/cumm (0.11-0.7); Absolute Neutrophil Count 6.36 k/cumm (1.2-6.7); Basophils % 0.1; Eosinophils % 0.4; HCT 42.4 % (40.0-50.0); HGB 14.7 g/dL (13.5-17.5); Lymphocytes % 10.5; Mean Corp. HGB Concentration 34.7 g/dL (32.0-36.0); Mean Corpuscular Hemoglobin 30.9 pg (27.0-33.0); Mean Corpuscular Volume 89.3 fL (80-95); Mean Platelet Volume 10.1 fL (8.0-11.0); Monocytes % 9.1; Neutrophils % 78.9; Platelet Count 240 x1000/uL (130-400); RBC 4.75 m/cumm (4.50-6.00); RBC Distribution Width 13.3 % (11.8-14.1); White Blood Cell Count 8.06 k/cumm (4.4-10.8)
[2018-12-07 18:03] LABS: ALT 19 U/L (12-78); AST 6 U/L (15-37); Albumin 3.5 g/dL (3.4-5.0); Alkaline Phosphatase 74 U/L (46-116); Anion Gap 10.4 mmol/L (3-11); BUN 24 mg/dL (7-18); Bilirubin, Total 1.3 mg/dL (0.2-1.0); CO2 23.6 mmol/L (21.0-32.0); Calcium 8.2 mg/dL (8.5-10.1); Chloride 104 mmol/L (98-107); Glucose 94 mg/dL (70-100); Magnesium 2.9 mg/dL (1.8-2.4); NT-proBNP 41 pg/mL; Potassium 3.9 mmol/L (3.5-5.1); Sodium 138 mmol/L (136-145)
[2018-12-07 18:05] LABS: Troponin I < 0.05 ng/mL (0.00-0.06)
--- NOTE | 2018-12-07 18:05 | NUR.NOTE ---
pt to xray ambulatory steady gait Nursing Note:
--- NOTE | 2018-12-07 18:06 | DI.VRAD_ITS ---
EXAM: XR Chest, 2 Views EXAM DATE/TIME: 12/07/2018 5:23 PM CLINICAL HISTORY: 63 years old, male; Shortness of breath TECHNIQUE: Imaging protocol: XR of the chest, 2 views. COMPARISON: SC XR CHEST 2V PA LATERAL 10/14/2018 9:12 PM FINDINGS: Lungs: Consolidation in the right upper lung field suggestive of lesion or pneumonia. Consider CT. Pleural space: Unremarkable. No pleural effusion. No pneumothorax. Heart/Mediastinum: Unremarkable. No cardiomegaly. Bones/joints: Unremarkable. IMPRESSION: Consolidation in the right upper lung field suggestive of lesion or pneumonia. Consider CT. Dictated and Authenticated by: Bridget Lovelace MD. Ordering:CRISTOPHER Zarate MD
[2018-12-07] MEDS: Normal Saline 1,000 ML 1000 ML IV (19:48)
[2018-12-07 20:00] VITALS: BP 148/90; PULSE 66; RESP 18; TEMP 36.7; O2SAT 100
--- NOTE | 2018-12-07 21:06 | PDOC.MHCN ---
Date of service: 12/07/18 Time of Service: 21:06 Mental Health Crisis Note Presenting Issue How did you arrive at the ED and why did you come: Pt reported that he came to the ED via his mother however, it appears he came via ambulance. He came for symptoms relating to anxiety. Precipitating Factors S denied SI and HI. Disposition BEHAVIOR: S hasa been cooperative and friendly. EYE CONTACT: Eye contact has been good. MOOD: S is a little anxious about going to the CARE Bed but otherwise has been fine. AFFECT: Affect is normal APPETITE: S reported that his appetite has been poor but did eat a dinner tonight. SLEEP(trouble falling/staying asleep: S reported that his sleep has not been good. Plan S was accepted at the [facility] CARE bed and will be transported by this clinician. Provisional Diagnosis Anxiety d/o unspecified. Signature Clinician's Name/Title: Alisha Pablo MS, [facility] Emergency Services Clinician
--- NOTE | 2018-12-07 21:12 | PDOC.MHCN_ITS ---
Date of service: 12/07/18 Time of Service: 21:06 Mental Health Crisis Note Presenting Issue How did you arrive at the ED and why did you come: Pt reported that he came to the ED via his mother however, it appears he came via ambulance. He came for symptoms relating to anxiety. Precipitating Factors S denied SI and HI. Disposition BEHAVIOR: S hasa been cooperative and friendly. EYE CONTACT: Eye contact has been good. MOOD: S is a little anxious about going to the CARE Bed but otherwise has been fine. AFFECT: Affect is normal APPETITE: S reported that his appetite has been poor but did eat a dinner tonight. SLEEP(trouble falling/staying asleep: S reported that his sleep has not been good. Plan S was accepted at the [facility] CARE bed and will be transported by this clinician. Provisional Diagnosis Anxiety d/o unspecified. Signature Clinician's Name/Title: Alisha Pablo MS, [facility] Emergency Services Clinician
[2018-12-07] MEDS: predniSONE 20 MG TAB PO (21:29)
[2018-12-07] MEDS: QUEtiapine 25 MG TAB 50 MG PO (21:29)
[2018-12-07] MEDS: hydrOXYzine HCL 25 MG TAB PO (21:29)
[2018-12-07 21:33] VITALS: BP 146/89; PULSE 63; RESP 18; TEMP 36.8; O2SAT 100
== END 2018-12-07 21:34 | disposition home or self-care (01) ==
PROVIDERS: Emergency Provider Student in an Organized Health Care Education/Training Program; PCP Internal Medicine
DX: E83.41 Hypermagnesemia (principal); F41.9 Anxiety disorder, unspecified; R06.02 Shortness of breath; R00.1 Bradycardia, unspecified; J44.9 Chronic obstructive pulmonary disease, unspecified; Z87.891 Personal history of nicotine dependence
CPT/HCPCS: 36415; 80053; 93005; 96360; 99284; 71046; 83735; 83880; 84484; 85025; 93010; J7512

== ENCOUNTER 2018-12-19 00:26 | Outpatient (CLI) | payer MEDICAID, SELFPAY ==
--- NOTE | 2018-12-19 09:59 | DI.CT_ITS ---
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 CHEST: A right upper lobe mass measures 1.8 by 3.2 cm. No other pulmonary lesion is apparent. There is no pleural effusion. The heart is not enlarged. There is no evidence of hilar or mediastinal adenopathy. Thrombus is identified in the descending branch of the right pulmonary artery and take off of the upper lobe pulmonary artery. Also there is a thrombus involving a segmental branch in the left lower lobe. The heart is not enlarged. There is no evidence of RV strain. There is no evidence of an aortic aneurysm. No significant bony abnormality is identified. SUMMARY: A right upper lobe mass is noted as described above. There is no evidence of thoracic adenopathy. Note is made of bilateral pulmonary emboli with a relatively mild burden of disease. ABDOMEN: The study was conducted according to the usual protocol with an intravenous injection of 100 cc's of Omnipaque 350 and oral ingestion of dilute contrast material. The liver is unremarkable. The gallbladder is intact. There is no evidence of cholelithiasis.. There is no evidence of ductal dilatation. The pancreas, spleen and kidneys are unremarkable. There is a questionable tiny area of nodularity involving the left adrenal gland. The right adrenal is unremarkable. There is no evidence of abdominal adenopathy. The visualized bowel segments are intact. There are no bony findings to suggest metastatic disease. SUMMARY: Question tiny area of nodularity in the left adrenal gland, otherwise unremarkable abdominal CT with nothing to suggest metastatic disease.
[2018-12-19] MEDS: Omnipaque 350 MG/ML 100 ML BTL IV (10:02)
[2018-12-19] MEDS: Breeza Beverage 473 ML BTL PO (10:03)
[2018-12-19] MEDS: Omnipaque 350 MG/ML 50 ML BTL PO (10:04)
== END 2018-12-19 00:46 ==
PROVIDERS: PCP Internal Medicine; Visit Provider Nurse Practitioner
DX: C34.11 Malignant neoplasm of upper lobe, right bronchus or lung (principal); E27.8 Other specified disorders of adrenal gland; Z12.89 Encounter for screening for malignant neoplasm of other sites; I26.99 Other pulmonary embolism without acute cor pulmonale
CPT/HCPCS: 71260; 74160; J3490; Q9967

== ENCOUNTER 2018-12-29 16:03 | Emergency (ER) | payer MEDICAID, SELFPAY ==
[2018-12-29 16:08] VITALS: BP 121/76; PULSE 81; RESP 16; TEMP 36.5; O2SAT 96
--- NOTE | 2018-12-29 16:17 | ED.GENADUL_ITS ---
Discharge Plan Disposition Patient Disposition: HOME Condition: Stable Discharge Details Chief Complaint: Abd Prob Clinical Impression: Constipation Primary Care Provider: Deborah Chow ED Provider: Ean Lyons Home Meds and New Rx's Prescriptions: Continued Spiriva with HandiHaler 18 mcg capsule, w/inhalation device 1 cap Inhalation DAILY Qty: 90 RF: 0 magnesium citrate solution 75 ml PO DAILY PRN (Reason: constipation) Qty: 296 RF: 1 magnesium citrate solution 120 ml PO BID PRN (Reason: constipation) Qty: 296 RF: 0 mirtazapine 15 mg tablet 15 mg PO HS Qty: 30 RF: 1 albuterol sulfate [ProAir HFA] 90 mcg/actuation HFA aerosol inhaler 2 puff Inhalation Q4H PRN PRN (Reason: Shortness Of Breath) Qty: 1 RF: 1 fluoxetine 20 mg tablet 20 mg PO DAILY Qty: 90 RF: 3 clonazepam [Klonopin] 0.5 mg tablet 0.5 mg PO BID PRNRF: 0 apixaban 5 mg (74 tabs) tablets,dose pack See Rx Instructions PO PER PKG DIR Qty: 74 RF: 3 hydroxyzine HCl 25 mg tablet 25 mg PO TID PRN (Reason: anxiety) Qty: 90 RF: 0 prednisone 20 mg tablet 40 mg PO DAILY RF: 0 polyethylene glycol 3350 [Miralax] 17 gram/dose powder 17 gm PO DAILY RF: 0 Blister pack PO RF: 0 (DME) [employer] Advantage 1 EACH spacer 1 ea Miscellaneous DIRECTED RF: 0 albuterol sulfate 2.5 MG/3 ML solution for nebulization 2.5 mg Inhalation Q4H PRN PRN (Reason: Shortness Of Breath) 30 Days RF: 0 docusate sodium [Colace] 100 mg capsule 200 mg PO QHS PRN (Reason: constipation) Qty: 6 RF: 0 pantoprazole 40 mg tablet,delayed release (DR/EC) 40 mg PO DAILY Qty: 90 RF: 3 Symbicort 10.2 GM HFA aerosol inhaler 10.2 gm Inhalation BID Qty: 3 RF: 3 ondansetron 4 mg tablet,disintegrating 4 mg PO TID-QID PRN (Reason: nausea and vomiting) Qty: 30 RF: 0 Discharge Instructions Instructions: Constipation (ED) Additional Instructions: Take the Gas-X x1 now. May use the GoLYTELY 250 cc at bedtime x2 nights if needed. Continue your regular medications. Return if you have worsening nausea or vomiting, develop a fever, or any other acute concerns. Medical Decision Making 63-year-old male presents from home with complaints of 5 days of constipation and mild bloating. He has some discomfort from this. But he does not have a fever, vomiting, and otherwise has been well. He is recently discharged from a local care but to home. X-ray obtained to rule out bowel obstruction or ileus. Radiograph with large amount of gastric air bubble, patient given simethicone. I will offer him a small amount of GoLYTELY to use at home as needed. He stable and appropriate for discharge at this time HPI General Mode of arrival: ambulatory . Date/Time Provider Initiated Documentation: 12/29/18 16:12 . Limitations to Documentation: no limitations . Information obtained by: patient . History of Present Illness 63 year old M presents to the emergency department with the chief complaint of Bloating and constipation, described as similar to prior episodes, Quality is described as dull and constant, and is localized to the abdomen. Patient reports no radiation. Patient started experiencing this day(s) and it has been constant. No relieving factors improve symptom(s), No exacerbating factors reported . Patient notes no other symptoms.; denies fever/chills and nausea/vomiting. Patient did receive the following treatments prior to arrival, none Related Data Home Medications Medication Instructions Recorded Confirmed [employer] Advantage kit 10/15/17 12/28/18 albuterol sulfate 2.5 mg INHALATION Q4H PRN PRN 30 10/15/17 12/29/18 Days ml albuterol sulfate 90 mcg/actuation 2 puff INHALATION Q4H PRN PRN #1 07/02/18 12/29/18 aerosol inhaler inh Symbicort 10.2 gm INHALATION BID #3 inhaler 09/21/18 12/29/18 pantoprazole 40 mg PO DAILY #90 tab 09/21/18 12/29/18 tiotropium bromide 18 mcg capsule 1 cap INHALATION DAILY #90 inh 09/26/18 12/29/18 with inhalation device fluoxetine 20 mg tablet 20 mg PO DAILY #90 tab-cap 10/02/18 12/29/18 ondansetron 4 mg PO TID-QID PRN #30 tab 11/12/18 12/29/18 magnesium citrate 75 ml PO DAILY PRN #296 ml 11/28/18 12/29/18 docusate sodium [Colace] 200 mg PO QHS PRN #6 cap 11/29/18 12/29/18 hydroxyzine HCl 25 mg tablet 25 mg PO TID PRN #90 tab 12/04/18 12/29/18 magnesium citrate 120 ml PO BID PRN #296 ml 12/12/18 12/29/18 mirtazapine 15 mg tablet 15 mg PO HS #30 tab 12/12/18 12/29/18 clonazepam 0.5 mg tablet 0.5 mg PO BID PRN 12/19/18 12/29/18 apixaban 5 mg (74 tabs) tablets in See Rx Instructions PO PER PKG DIR 12/20/18 12/29/18 a dose pack #74 dose pk polyethylene glycol 3350 17 17 gm PO DAILY 12/20/18 12/29/18 gram/dose oral powder prednisone 20 mg tablet 40 mg PO DAILY tab 12/20/18 12/29/18 Blister pack PO 12/27/18 12/28/18 Previous Rx's Medication Instructions [facility]ed [facility] 10/15/17 albuterol sulfate 2.5 mg INHALATION Q4H PRN PRN 30 10/15/17 Days ml albuterol sulfate 90 mcg/actuation 2 puff INHALATION Q4H PRN PRN #1 07/02/18 aerosol inhaler inh Symbicort 10.2 gm INHALATION BID #3 inhaler 09/21/18 pantoprazole 40 mg PO DAILY #90 tab 09/21/18 tiotropium bromide 18 mcg capsule 1 cap INHALATION DAILY #90 inh 09/26/18 with inhalation device fluoxetine 20 mg tablet 20 mg PO DAILY #90 tab-cap 10/02/18 ondansetron 4 mg PO TID-QID PRN #30 tab 11/12/18 magnesium citrate 75 ml PO DAILY PRN #296 ml 11/28/18 docusate sodium [Colace] 200 mg PO QHS PRN #6 cap 11/29/18 hydroxyzine HCl 25 mg tablet 25 mg PO TID PRN #90 tab 12/04/18 magnesium citrate 120 ml PO BID PRN #296 ml 12/12/18 mirtazapine 15 mg tablet 15 mg PO HS #30 tab 12/12/18 apixaban 5 mg (74 tabs) tablets in See Rx Instructions PO PER PKG DIR 12/20/18 a dose pack #74 dose pk Allergies Allergy/AdvReac Type Severity Reaction Status Date / Time No Known Allergies Allergy Verified 12/29/18 16:12 General Stated Complaint: Abd Prob FLASH: 3 Review of Systems Review of Systems Discharge from local care bed to home yesterday. 6 systems reviewed and otherwise negative [facility] Medical History Adjustment disorder with anxiety (Chronic) Alcohol abuse (Chronic) Anxiety (Chronic) COPD (chronic obstructive pulmonary disease) (Chronic) Dyspepsia (Chronic) Malignant neoplasm of right lung (Chronic) Tubular adenoma of colon (Inactive) Surgical History colonoscopy (Inactive 01/19/15) History of lung biopsy (Resolved) History of surgery on upper extremity (Resolved) Status post cataract extraction and insertion of intraocular lens of left eye (Chronic 11/05/18) Family History Father Essential hypertension Hyperlipidemia Paternal Uncle Heart disease Stroke Cerebral hemorrhage Hypertension Brother Cancer Social History Smoking/Tobacco Use Status: Former Tobacco Use Quit Date: 06/05/98 Tobacco: How many years used: 30 Quit status: not considering quitting Alcohol Intake: former Drug use: Never Substance use type: does not use Adopted: No Foster care: No 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 Housing: other Details: Care Bed at this time Number of Children: 0 Communication Needs: None current occupation: not working Current gender identity: male What type of physical activity do you participate in: none and other Details: started lifting weights Frequency: daily Seatbelt use: always Drive intox or ride w/intox 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 Exam Narrative Exam Narrative: GEN: awake, alert, oriented 3. Pleasant, well groomed, interactive. HEAD: Normocephalic, atraumatic ENT: Mucous membranes moist, oropharynx unremarkable, External ear exam unremarkable EYES: PERRL, EOMI NECK: Full ROM, no URSZULA, no menigismus CHEST/RESP: Nontender, clear to auscultation bilateral, no wheeze/rhonchi/rales CARDIOVASCULAR: RRR, no murmur, rub jeannie. 2+ Rad pulse bilateral ABDOMEN: Soft, mildly distended, nontender, no mass. +Bowel sounds EXT: Full ROM, no edema, no rash Neuro: Grossly normal neurologic exam, conversant, interactive. Psych: Speech fluent, thoughts congruent, affect slightly anxious Course Vital Signs Temperature 36.5 C 12/29/18 16:08 Pulse 81 12/29/18 16:08 Respiratory Rate 16 12/29/18 16:08 Blood Pressure 121/76 12/29/18 16:08 Pulse Oximetry 96 12/29/18 16:08 Temperature 36.5 C 12/29/18 16:08 Temperature Source Temporal Artery Scan 12/29/18 16:08 Pulse 81 12/29/18 16:08 Respiratory Rate 16 12/29/18 16:08 Respiratory Effort Non-Labored 12/29/18 16:11 Blood Pressure 121/76 12/29/18 16:08 Blood Pressure Position Sitting 12/29/18 16:08 Pulse Oximetry 96 12/29/18 16:08 Oxygen Delivery Method Room Air 12/29/18 16:08 Oxygen Flow Rate 0 12/29/18 16:08 Pain Level 8 12/29/18 16:08
--- NOTE | 2018-12-29 16:30 | DI.RAD_ITS ---
SYMPTOM/DIAGNOSIS: ONE VIEW ONLY KUB. BLOATING, CONSTIPATION KUB: Comparison 11/29/18. There is again seen a left convex curvature of the lumbar spine. The bowel gas pattern is nonspecific. No evidence of obstruction or organomegaly. Degenerative changes are seen in the spine. Phleboliths are present in the pelvis. IMPRESSION: No evidence of an acute abdomen.
--- NOTE | 2018-12-29 17:02 | DI.VRAD_ITS ---
EXAM: XR Abdomen, 1 View EXAM DATE/TIME: 12/29/2018 4:17 PM CLINICAL HISTORY: 63 years old, male; Bloating and constipation TECHNIQUE: Imaging protocol: Frontal supine view of the abdomen/pelvis. COMPARISON: CR Abdomen Series 11/29/2018 9:11 AM FINDINGS: Gastrointestinal tract: Gas is present in normal caliber small bowel and colon to the rectum. Small amount of solid stool in the hepatic flexure of the colon, but none definitely seen elsewhere to indicate constipation. Bones/joints: Redemonstrated mild left curvature of the lumbar spine and degenerative changes of the lower lumbar spine. IMPRESSION: Nonspecific nonobstructive bowel gas pattern. Dictated and Authenticated by: Sue Charles MD. Ordering:ADELE Mckoy MD
[2018-12-29] MEDS: Simethicone 80 MG CHEW (17:05)
== END 2018-12-29 17:20 | disposition home or self-care (01) ==
PROVIDERS: Emergency Provider Emergency Medicine; PCP Internal Medicine
DX: K59.00 Constipation, unspecified (principal); R14.0 Abdominal distension (gaseous); J44.9 Chronic obstructive pulmonary disease, unspecified; F17.210 Nicotine dependence, cigarettes, uncomplicated
CPT/HCPCS: 36415; 80053; 99284; 74018; 83735; 84484; 85025; 99283

== ENCOUNTER 2018-12-31 16:15 | Emergency (ER) | payer MEDICAID, SELFPAY ==
[2018-12-31 16:18] VITALS: BP 111/72; PULSE 82; RESP 16; TEMP 36.8; O2SAT 96
--- NOTE | 2018-12-31 17:43 | W.ED.GENAD ---
Discharge Plan Disposition Patient Disposition: HOME Condition: Stable Discharge Details Chief Complaint: Abd Prob Clinical Impression: Constipation Primary Care Provider: Deborah Chow ED Provider: Mj Chen Home Meds and New Rx's Prescriptions: No Action Spiriva with HandiHaler 18 mcg capsule, w/inhalation device 1 cap Inhalation DAILY Qty: 90 RF: 0 magnesium citrate solution 75 ml PO DAILY PRN (Reason: constipation) Qty: 296 RF: 1 magnesium citrate solution 120 ml PO BID PRN (Reason: constipation) Qty: 296 RF: 0 mirtazapine 15 mg tablet 15 mg PO HS Qty: 30 RF: 1 albuterol sulfate [ProAir HFA] 90 mcg/actuation HFA aerosol inhaler 2 puff Inhalation Q4H PRN PRN (Reason: Shortness Of Breath) Qty: 1 RF: 1 fluoxetine 20 mg tablet 20 mg PO DAILY Qty: 90 RF: 3 clonazepam [Klonopin] 0.5 mg tablet 0.5 mg PO BID PRNRF: 0 apixaban 5 mg (74 tabs) tablets,dose pack See Rx Instructions PO PER PKG DIR Qty: 74 RF: 3 hydroxyzine HCl 25 mg tablet 25 mg PO TID PRN (Reason: anxiety) Qty: 90 RF: 0 prednisone 20 mg tablet 40 mg PO DAILY RF: 0 polyethylene glycol 3350 [Miralax] 17 gram/dose powder 17 gm PO DAILY RF: 0 Blister pack PO RF: 0 (DME) [employer] Advantage 1 EACH spacer 1 ea Miscellaneous DIRECTED RF: 0 albuterol sulfate 2.5 MG/3 ML solution for nebulization 2.5 mg Inhalation Q4H PRN PRN (Reason: Shortness Of Breath) 30 Days RF: 0 docusate sodium [Colace] 100 mg capsule 200 mg PO QHS PRN (Reason: constipation) Qty: 6 RF: 0 pantoprazole 40 mg tablet,delayed release (DR/EC) 40 mg PO DAILY Qty: 90 RF: 3 Symbicort 10.2 GM HFA aerosol inhaler 10.2 gm Inhalation BID Qty: 3 RF: 3 ondansetron 4 mg tablet,disintegrating 4 mg PO TID-QID PRN (Reason: nausea and vomiting) Qty: 30 RF: 0 Discharge Instructions Instructions: Constipation (ED) Additional Instructions: start using rectal suppositories if you have persistent vomit return to the emergency department follow up with your primary care provider within 1-2 weeks Medical Decision Making Pt comes in with issues with constipation for weeks. He states he has been taking colace and miralax without significant relief. He has no severe abdominal pain or distention on exam with soft abdomen so doubt surgical pathology such as sbo or appendicitis and do not feel acute imaging indicated. I advised he continue his miralax and colace and also recommended suppository and return precautions given and advised f/u with pcp Differential Diagnosis constpiation, ibs HPI General Mode of arrival: ambulatory. Date/Time Provider Initiated Documentation: 12/31/18 17:05. Limitations to Documentation: no limitations. Information obtained by: patient. History of Present Illness 63 year old M presents to the emergency department with the chief complaint of constipation, described as moderate, No relieving factors improve symptom(s), No exacerbating factors reported . Patient did receive the following treatments prior to arrival, none Related Data Home Medications Medication Instructions Recorded Confirmed [employer] Advantage kit 10/15/17 12/28/18 albuterol sulfate 2.5 mg INHALATION Q4H PRN PRN 30 10/15/17 12/29/18 Days ml albuterol sulfate 90 mcg/actuation 2 puff INHALATION Q4H PRN PRN #1 07/02/18 12/29/18 aerosol inhaler inh Symbicort 10.2 gm INHALATION BID #3 inhaler 09/21/18 12/29/18 pantoprazole 40 mg PO DAILY #90 tab 09/21/18 12/29/18 tiotropium bromide 18 mcg capsule 1 cap INHALATION DAILY #90 inh 09/26/18 12/29/18 with inhalation device fluoxetine 20 mg tablet 20 mg PO DAILY #90 tab-cap 10/02/18 12/29/18 ondansetron 4 mg PO TID-QID PRN #30 tab 11/12/18 12/29/18 magnesium citrate 75 ml PO DAILY PRN #296 ml 11/28/18 12/29/18 docusate sodium [Colace] 200 mg PO QHS PRN #6 cap 11/29/18 12/29/18 hydroxyzine HCl 25 mg tablet 25 mg PO TID PRN #90 tab 12/04/18 12/29/18 magnesium citrate 120 ml PO BID PRN #296 ml 12/12/18 12/29/18 mirtazapine 15 mg tablet 15 mg PO HS #30 tab 12/12/18 12/29/18 clonazepam 0.5 mg tablet 0.5 mg PO BID PRN 12/19/18 12/29/18 apixaban 5 mg (74 tabs) tablets in See Rx Instructions PO PER PKG DIR 12/20/18 12/29/18 a dose pack #74 dose pk polyethylene glycol 3350 17 17 gm PO DAILY 12/20/18 12/29/18 gram/dose oral powder prednisone 20 mg tablet 40 mg PO DAILY tab 12/20/18 12/29/18 Blister pack PO 12/27/18 12/28/18 Previous Rx's Medication Instructions Recorded [facility] Advantage kit 10/15/17 albuterol sulfate 2.5 mg INHALATION Q4H PRN PRN 30 10/15/17 Days ml albuterol sulfate 90 mcg/actuation 2 puff INHALATION Q4H PRN PRN #1 07/02/18 aerosol inhaler inh Symbicort 10.2 gm INHALATION BID #3 inhaler 09/21/18 pantoprazole 40 mg PO DAILY #90 tab 09/21/18 tiotropium bromide 18 mcg capsule 1 cap INHALATION DAILY #90 inh 09/26/18 with inhalation device fluoxetine 20 mg tablet 20 mg PO DAILY #90 tab-cap 10/02/18 ondansetron 4 mg PO TID-QID PRN #30 tab 11/12/18 magnesium citrate 75 ml PO DAILY PRN #296 ml 11/28/18 docusate sodium [Colace] 200 mg PO QHS PRN #6 cap 11/29/18 hydroxyzine HCl 25 mg tablet 25 mg PO TID PRN #90 tab 12/04/18 magnesium citrate 120 ml PO BID PRN #296 ml 12/12/18 mirtazapine 15 mg tablet 15 mg PO HS #30 tab 12/12/18 apixaban 5 mg (74 tabs) tablets in See Rx Instructions PO PER PKG DIR 12/20/18 a dose pack #74 dose pk Allergies Allergy/AdvReac Type Severity Reaction Status Date / Time No Known Allergies Allergy Verified 12/29/18 16:12 General Stated Complaint: Abd Prob FLASH: 4 Review of Systems Review of Systems All systems reviewed & are unremarkable except as noted in HPI and below Constitutional Denies chills, Denies fever(s) and Denies weakness ENT Denies change in voice Cardiovascular Denies chest pain and Denies dyspnea Respiratory Denies cough and Denies dyspnea Gastrointestinal Denies nausea and Denies vomiting Integumentary/Breasts Denies rash Neurologic Denies weakness [facility] Social History Smoking/Tobacco Use Status: Former Tobacco Use Quit Date: 06/05/98 Tobacco: How many years used: 30 Quit status: not considering quitting Alcohol Intake: former Drug use: Never Substance use type: does not use Adopted: No Foster care: No 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 Housing: other Details: Care Bed at this time Number of Children: 0 Communication Needs: None current occupation: not working Current gender identity: male What type of physical activity do you participate in: none and other Details: started lifting weights Frequency: daily Seatbelt use: always Drive intox or ride w/intox 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 Exam Const General: no acute distress Orientation: alert HENMT Head: normal to inspection Ears: external ears normal General nose exam: external nose normal Mouth: moist mucous membranes Eyes General: appearance normal, both eyes and all related structures Neck Neck: normal visual inspection Resp Effort & Inspection: normal respiratory effort and able to speak in complete sentences Cardio Rate: regular rate GI Palpation: soft Skin General skin exam: no rashes or lesions noted Neuro General: alert and oriented x3 Extrem General: normal to inspection Psych Mental Status: mental status grossly normal Course Vital Signs Temperature 36.8 C 12/31/18 16:18 Pulse 82 12/31/18 16:18 Respiratory Rate 16 12/31/18 16:18 Blood Pressure 111/72 12/31/18 16:18 Pulse Oximetry 96 12/31/18 16:18 Temperature 36.8 C 12/31/18 16:18 Temperature Source Skin 12/31/18 16:18 Pulse 82 12/31/18 16:18 Respiratory Rate 16 12/31/18 16:18 Blood Pressure 111/72 12/31/18 16:18 Blood Pressure Position Sitting 12/31/18 16:18 Pulse Oximetry 96 12/31/18 16:18 Oxygen Delivery Method Room Air 12/31/18 16:18 Oxygen Flow Rate 0 12/31/18 16:18 Pain Level 8 12/31/18 16:18
== END 2018-12-31 17:56 | disposition home or self-care (01) ==
PROVIDERS: Emergency Provider Emergency Medicine; PCP Internal Medicine
DX: K59.00 Constipation, unspecified (principal)
CPT/HCPCS: 99282

== ENCOUNTER 2019-01-11 08:10 | Outpatient (CLI) | payer MEDICAID, SELFPAY ==
[2019-01-11 08:44] LABS: ALT 37 U/L (12-78); AST 10 U/L (15-37); Albumin 3.2 g/dL (3.4-5.0); Alkaline Phosphatase 77 U/L (46-116); Anion Gap 5.7 mmol/L (3-11); BUN 22 mg/dL (7-18); Bilirubin, Total 0.3 mg/dL (0.2-1.0); CO2 32.3 mmol/L (21.0-32.0); CREATININE 1.18 mg/dL (0.70-1.30); Calcium 8.1 mg/dL (8.5-10.1); Chloride 107 mmol/L (98-107); Glucose 95 mg/dL (70-100); LDH 222 U/L (85-227); Potassium 3.7 mmol/L (3.5-5.1); Sodium 145 mmol/L (136-145)
[2019-01-11 09:29] LABS: TSH 3.04 uIU/mL (0.36-3.74)
[2019-01-14 08:10] LABS: Vitamin D 25 Total 16.3 ng/ml (30-100)
[2019-01-14 10:09] LABS: Parathyroid Hormone,Intact 70 pg/ml (19-88)
== END 2019-01-11 08:30 ==
PROVIDERS: PCP Internal Medicine; Visit Provider Nurse Practitioner
DX: E83.51 Hypocalcemia (principal); K59.00 Constipation, unspecified; E55.9 Vitamin D deficiency, unspecified; C34.31 Malignant neoplasm of lower lobe, right bronchus or lung
CPT/HCPCS: 36415; 80053; 82306; 83615; 83735; 83970; 84443

== ENCOUNTER 2019-01-26 17:12 | Emergency (ER) | payer MEDICAID, SELFPAY ==
[2019-01-26 17:16] VITALS: BP 126/90; PULSE 111; RESP 18; TEMP 36.5; O2SAT 94
--- NOTE | 2019-01-26 17:25 | DI.CT_ITS ---
SYMPTOMS/DIAGNOSIS: ABD BLOATING, CONSTIPATION, PAIN CT OF THE ABDOMEN AND PELVIS: Comparison is made with [id number]. The heart size is normal. The lung bases are clear. The liver, spleen, gallbladder, pancreas, adrenals and kidneys are unremarkable. There is mild vascular calcification but no evidence of aneurysm. There is no bowel dilatation or inflammatory change. There is a normal quantity of stool. The bladder and prostate are unremarkable. There is a small fatty containing left inguinal hernia. There are facet degenerative changes and degenerative disc changes in the lumbar spine. IMPRESSION: No acute abnormality.
--- NOTE | 2019-01-26 17:26 | W.ED.GENAD ---
Discharge Plan Disposition Patient Disposition: HOME Condition: Improving Discharge Details Chief Complaint: Abd Prob Clinical Impression: Distended abdomen Primary Care Provider: Deborah Chow ED Provider: Ean Lyons Home Meds and New Rx's Prescriptions: Continued Spiriva with HandiHaler 18 mcg capsule, w/inhalation device 1 cap Inhalation DAILY Qty: 90 RF: 0 mirtazapine 15 mg tablet 15 mg PO HS Qty: 30 RF: 1 albuterol sulfate [ProAir HFA] 90 mcg/actuation HFA aerosol inhaler 2 puff Inhalation Q4H PRN PRN (Reason: Shortness Of Breath) Qty: 1 RF: 5 polyethylene glycol 3350 [Miralax] 17 gram/dose powder 17 gm PO DAILY PRN (Reason: constipation) Qty: 850 RF: 12 fluoxetine 20 mg tablet 20 mg PO DAILY Qty: 90 RF: 3 clonazepam [Klonopin] 0.5 mg tablet 0.5 mg PO BID PRNRF: 0 apixaban 5 mg (74 tabs) tablets,dose pack See Rx Instructions PO PER PKG DIR Qty: 74 RF: 3 sennosides-docusate sodium [Senna-Time S] 8.6-50 mg tablet 1 tab PO BID Qty: 60 RF: 1 magnesium citrate Solution 75 ml PO DAILY PRN (Reason: constipation) RF: 0 magnesium citrate Solution 120 ml PO BID PRN (Reason: constipation) RF: 0 magnesium citrate Solution 150 ml PO ONCE RF: 0 peg 3350-electrolytes [Golytely] 236-22.74-6.74 -5.86 gram recon soln See Rx Instructions PO .COMPLEX Qty: 4000 RF: 2 simethicone 125 mg capsule 125 mg PO QID Qty: 30 RF: 1 hydroxyzine HCl 25 mg tablet 25 mg PO TID PRN (Reason: anxiety) Qty: 90 RF: 0 prednisone 20 mg tablet 40 mg PO DAILY RF: 0 Blister pack PO RF: 0 cholecalciferol (vitamin D3) 50,000 unit capsule 50,000 unit PO QWEEK Qty: 6 RF: 0 (DME) [employer] Advantage 1 EACH spacer 1 ea Miscellaneous DIRECTED RF: 0 albuterol sulfate 2.5 MG/3 ML solution for nebulization 2.5 mg Inhalation Q4H PRN PRN (Reason: Shortness Of Breath) 30 Days RF: 0 docusate sodium [Colace] 100 mg capsule 200 mg PO QHS PRN (Reason: constipation) Qty: 6 RF: 0 pantoprazole 40 mg tablet,delayed release (DR/EC) 40 mg PO DAILY Qty: 90 RF: 3 Symbicort 10.2 GM HFA aerosol inhaler 10.2 gm Inhalation BID Qty: 3 RF: 3 ondansetron 4 mg tablet,disintegrating 4 mg PO TID-QID PRN (Reason: nausea and vomiting) Qty: 30 RF: 0 Discharge Instructions Additional Instructions: Your CAT scan did not show any evidence of acute findings, specifically there is no evidence of bowel obstruction or fluid buildup. Please follow-up with Dr. Chow in clinic for recheck this week. Continue your regular medications. Medical Decision Making 63-year-old male presents with abdominal bloating discomfort over weeks time. Seen in clinic yesterday and I reviewed that note. He states he has been taking his laxatives but when he ceases, he is has persistent constipation. No vomiting or fever. He is well-appearing in no distress. He had ridden his bicycle up the hill and initial triage pulse was elevated, and normalize during the time of my exam. Referred for noncontrast CT scan which does not show any significant pathology. Specifically no obstruction or persistent constipation. Given patient's history of anxiety, he was reassured and is stable for discharge to home. To follow-up in clinic for recheck. HPI General Mode of arrival: ambulatory. Date/Time Provider Initiated Documentation: 01/26/19 17:13. Limitations to Documentation: no limitations. Information obtained by: patient. History of Present Illness 63 year old M presents to the emergency department with the chief complaint of Abdominal bloating and discomfort over weeks, question laxatives not workin, described as moderate, Quality is described as dull, Patient reports no radiation. Patient started experiencing this day(s) and it has been intermittent. No relieving factors improve symptom(s), No exacerbating factors reported . Patient notes no other symptoms.; denies fever/chills and nausea/vomiting. Patient did receive the following treatments prior to arrival, none Related Data Home Medications Medication Instructions Recorded Confirmed [employer] Advantage kit 10/15/17 01/22/19 albuterol sulfate 2.5 mg INHALATION Q4H PRN PRN 30 10/15/17 01/26/19 Days ml Symbicort 10.2 gm INHALATION BID #3 inhaler 09/21/18 01/26/19 pantoprazole 40 mg PO DAILY #90 tab 09/21/18 01/26/19 tiotropium bromide 18 mcg capsule 1 cap INHALATION DAILY #90 inh 09/26/18 01/26/19 with inhalation device fluoxetine 20 mg tablet 20 mg PO DAILY #90 tab-cap 10/02/18 01/26/19 ondansetron 4 mg PO TID-QID PRN #30 tab 11/12/18 01/26/19 docusate sodium [Colace] 200 mg PO QHS PRN #6 cap 11/29/18 01/26/19 hydroxyzine HCl 25 mg tablet 25 mg PO TID PRN #90 tab 12/04/18 01/26/19 mirtazapine 15 mg tablet 15 mg PO HS #30 tab 12/12/18 01/26/19 clonazepam 0.5 mg tablet 0.5 mg PO BID PRN 12/19/18 01/26/19 apixaban 5 mg (74 tabs) tablets in See Rx Instructions PO PER PKG DIR 12/20/18 01/26/19 a dose pack #74 dose pk prednisone 20 mg tablet 40 mg PO DAILY tab 12/20/18 01/26/19 Blister pack PO 12/27/18 01/22/19 albuterol sulfate 90 mcg/actuation 2 puff INHALATION Q4H PRN PRN #1 01/03/19 01/26/19 aerosol inhaler inh sennosides 8.6 mg-docusate sodium 1 tab PO BID #60 tab 01/08/19 01/26/19 50 mg tablet polyethylene glycol 3350 17 17 gm PO DAILY PRN #850 gm 01/11/19 01/26/19 gram/dose oral powder cholecalciferol (vitamin D3) 50,000 unit PO QWEEK #6 cap 01/15/19 01/26/19 50,000 unit capsule magnesium citrate 75 ml PO DAILY PRN ml 01/22/19 01/26/19 magnesium citrate 120 ml PO BID PRN ml 01/22/19 01/26/19 magnesium citrate 150 ml PO ONCE ml 01/22/19 01/26/19 peg 3350-electrolytes 236 See Rx Instructions PO .COMPLEX 01/22/19 01/26/19 gram-22.74 gram-6.74 gram-5.86 #4000 ml gram solution simethicone 125 mg capsule 125 mg PO QID #30 cap 01/25/19 01/26/19 Previous Rx's Medication Instructions Recorded [employer] Advantage kit 10/15/17 albuterol sulfate 2.5 mg INHALATION Q4H PRN PRN 30 10/15/17 Days ml Symbicort 10.2 gm INHALATION BID #3 inhaler 09/21/18 pantoprazole 40 mg PO DAILY #90 tab 09/21/18 tiotropium bromide 18 mcg capsule 1 cap INHALATION DAILY #90 inh 09/26/18 with inhalation device fluoxetine 20 mg tablet 20 mg PO DAILY #90 tab-cap 10/02/18 ondansetron 4 mg PO TID-QID PRN #30 tab 11/12/18 docusate sodium [Colace] 200 mg PO QHS PRN #6 cap 11/29/18 hydroxyzine HCl 25 mg tablet 25 mg PO TID PRN #90 tab 12/04/18 mirtazapine 15 mg tablet 15 mg PO HS #30 tab 12/12/18 apixaban 5 mg (74 tabs) tablets in See Rx Instructions PO PER PKG DIR 12/20/18 a dose pack #74 dose pk albuterol sulfate 90 mcg/actuation 2 puff INHALATION Q4H PRN PRN #1 01/03/19 aerosol inhaler inh sennosides 8.6 mg-docusate sodium 1 tab PO BID #60 tab 01/08/19 50 mg tablet polyethylene glycol 3350 17 17 gm PO DAILY PRN #850 gm 01/11/19 gram/dose oral powder cholecalciferol (vitamin D3) 50,000 unit PO QWEEK #6 cap 01/15/19 50,000 unit capsule peg 3350-electrolytes 236 See Rx Instructions PO .COMPLEX 01/22/19 gram-22.74 gram-6.74 gram-5.86 #4000 ml gram solution simethicone 125 mg capsule 125 mg PO QID #30 cap 01/25/19 Allergies Allergy/AdvReac Type Severity Reaction Status Date / Time No Known Allergies Allergy Verified 01/26/19 17:21 General Stated Complaint: Abd Prob FLASH: 4 Review of Systems Review of Systems No fever, chills. Taking laxatives. 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/12 Housing: other Details: Care Bed at this time Number of Children: 0 Communication Needs: None current occupation: not working Current gender identity: male What type of physical activity do you participate in: none and other Details: started lifting weights Frequency: daily Seatbelt use: always Drive intox or ride w/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 Exam Narrative Exam Narrative: GEN: awake, alert, oriented 3. Pleasant, well groomed, interactive. HEAD: Normocephalic, atraumatic ENT: Mucous membranes moist, oropharynx unremarkable, External ear exam unremarkable EYES: PERRL, EOMI NECK: Full ROM, no URSZULA, no menigismus CHEST/RESP: Nontender, clear to auscultation bilateral, no wheeze/rhonchi/rales CARDIOVASCULAR: RRR, no murmur, rub jeannie. 2+ Rad pulse bilateral ABDOMEN: Soft, mildly distended but not tympanitic, no mass. +Bowel sounds EXT: Full ROM, no edema, no rash Neuro: Grossly normal neurologic exam, conversant, interactive. Psych: Speech fluent, thoughts congruent, affect normal Course Vital Signs Temperature 36.5 C 01/26/19 17:16 Pulse 111 H 01/26/19 17:16 Respiratory Rate 18 01/26/19 17:16 Blood Pressure 126/90 01/26/19 17:16 Pulse Oximetry 94 L 01/26/19 17:16 Temperature 36.5 C 01/26/19 17:16 Temperature Source Temporal Artery Scan 01/26/19 17:16 Pulse 111 H 01/26/19 17:16 Respiratory Rate 18 01/26/19 17:16 Respiratory Effort Non-Labored 01/26/19 17:20 Blood Pressure 126/90 01/26/19 17:16 Blood Pressure Position Sitting 01/26/19 17:16 Pulse Oximetry 94 L 01/26/19 17:16 Oxygen Delivery Method Room Air 01/26/19 17:16 Oxygen Flow Rate 0 01/26/19 17:16 Pain Level 1 01/26/19 17:16
--- NOTE | 2019-01-26 17:52 | DI.VRAD_ITS ---
EXAM: CT Abdomen and Pelvis Without Contrast EXAM DATE/TIME: 01/26/2019 5:26 PM CLINICAL HISTORY: 63 years old, male; Other: Abd bloating, constipation, pain TECHNIQUE: Imaging protocol: Computed tomography images of the abdomen and pelvis without contrast. Radiation optimization: All CT scans at this facility use at least one of these dose optimization techniques: automated exposure control; mA and/or kV adjustment per patient size (includes targeted exams where dose is matched to clinical indication); or iterative reconstruction. COMPARISON: CT ABDOMEN PELVIS W 02/12/2018 16:12 FINDINGS: Mediastinum: Hiatal hernia. Liver: Normal. No mass. Gallbladder and bile ducts: Normal. No calcified stones. No ductal dilation. Pancreas: Normal. No ductal dilation. Spleen: Punctate splenic calcifications stable compared with prior study. Adrenals: Normal. No mass. Kidneys and ureters: Normal. No hydronephrosis. Stomach and bowel: Normal. No obstruction. No mucosal thickening. Appendix: No evidence of appendicitis. Intraperitoneal space: Normal. No free air. No significant fluid collection. Vasculature: Atherosclerotic disease. Lymph nodes: Normal. No enlarged lymph nodes. Bladder: Unremarkable as visualized. Reproductive: Unremarkable as visualized. Bones/joints: Multilevel degenerative scoliotic changes of the thoracic and lumbar spine. Degenerative changes of the left and right hip. Soft tissues: Fat distention of the inguinal canals larger on the left than right. Umbilical hernia. IMPRESSION: No acute findings. Dictated and Authenticated by: Josiane Scales MD. Ordering:ADELE Mckoy MD
[2019-01-26 18:31] VITALS: BP 126/90; PULSE 90; RESP 18; TEMP 36.5; O2SAT 98
== END 2019-01-26 18:25 | disposition home or self-care (01) ==
PROVIDERS: Emergency Provider Emergency Medicine; PCP Internal Medicine
DX: R14.0 Abdominal distension (gaseous) (principal); F41.9 Anxiety disorder, unspecified
CPT/HCPCS: 99284; 74176; 99283

== ENCOUNTER 2019-02-09 16:51 | Emergency (ER) | payer MEDICAID, SELFPAY ==
[2019-02-09 16:57] VITALS: BP 135/89; PULSE 96; RESP 18; TEMP 37.2; O2SAT 93
--- NOTE | 2019-02-09 17:17 | W.ED.GENAD ---
Discharge Plan Disposition Patient Disposition: HOME Condition: Stable Discharge Details Chief Complaint: Chest Pain Clinical Impression: Shortness of breath Primary Care Provider: Deborah Chow ED Provider: Mj Chen Home Meds and New Rx's Prescriptions: Continued Spiriva with HandiHaler 18 mcg capsule, w/inhalation device 1 cap Inhalation DAILY Qty: 90 RF: 0 mirtazapine 15 mg tablet 15 mg PO HS Qty: 30 RF: 1 albuterol sulfate [ProAir HFA] 90 mcg/actuation HFA aerosol inhaler 2 puff Inhalation Q4H PRN PRN (Reason: Shortness Of Breath) Qty: 1 RF: 5 polyethylene glycol 3350 [Miralax] 17 gram/dose powder 17 gm PO DAILY PRN (Reason: constipation) Qty: 850 RF: 12 bisacodyl 10 mg suppository 10 mg WV DAILY PRN (Reason: constipation) Qty: 8 RF: 0 fluoxetine 20 mg tablet 20 mg PO DAILY Qty: 90 RF: 3 clonazepam [Klonopin] 0.5 mg tablet 0.5 mg PO BID PRNRF: 0 apixaban 5 mg (74 tabs) tablets,dose pack See Rx Instructions PO PER PKG DIR Qty: 74 RF: 3 sennosides-docusate sodium [Senna-Time S] 8.6-50 mg tablet 1 tab PO BID Qty: 60 RF: 1 magnesium citrate Solution 75 ml PO DAILY PRN (Reason: constipation) RF: 0 magnesium citrate Solution 120 ml PO BID PRN (Reason: constipation) RF: 0 magnesium citrate Solution 150 ml PO ONCE RF: 0 peg 3350-electrolytes [Golytely] 236-22.74-6.74 -5.86 gram recon soln See Rx Instructions PO .COMPLEX Qty: 4000 RF: 2 simethicone 125 mg capsule 125 mg PO QID Qty: 30 RF: 1 hydroxyzine HCl 25 mg tablet 25 mg PO TID PRN (Reason: anxiety) Qty: 90 RF: 0 prednisone 20 mg tablet 40 mg PO DAILY RF: 0 Blister pack PO RF: 0 cholecalciferol (vitamin D3) 50,000 unit capsule 50,000 unit PO QWEEK Qty: 6 RF: 0 pantoprazole 40 mg tablet,delayed release (DR/EC) 40 mg PO DAILY Qty: 90 RF: 3 (DME) [employer] Advantage 1 EACH spacer 1 ea Miscellaneous DIRECTED RF: 0 albuterol sulfate 2.5 MG/3 ML solution for nebulization 2.5 mg Inhalation Q4H PRN PRN (Reason: Shortness Of Breath) 30 Days RF: 0 docusate sodium [Colace] 100 mg capsule 200 mg PO QHS PRN (Reason: constipation) Qty: 6 RF: 0 Symbicort 10.2 GM HFA aerosol inhaler 10.2 gm Inhalation BID Qty: 3 RF: 3 ondansetron 4 mg tablet,disintegrating 4 mg PO TID-QID PRN (Reason: nausea and vomiting) Qty: 30 RF: 0 Discharge Instructions Additional Instructions: your blood work did not show any significant abnormalities. make sure you stay hydrated when doing outside work and try to take frequent breaks follow up with your primary care provider within 1-2 weeks if you feel you are becoming more ill, have worsening shortness of breath or pain return to the emergency department Medical Decision Making <Ean Lyons MD - Last Filed: 02/09/19 18:30> 63-year-old male well-known to the emergency department. Currently taking apixaban for history of PE. 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 Denies palpitations, syncope, shortness of breath. States symptoms are improving by the time of arrival. Patient's triage vital signs noted blood pressure 135/89, pulse in the 90s, he is afebrile. He is quite anxious and somewhat dehydrated in appearance. EKG reveals frequent PVCs. Differential diagnosis includes dehydration, electrolyte abnormalities, must exclude ACS. He is anticoagulated for PE and feel this is significantly less likely. IV placed, patient given fluid bolus. Screening labs obtained. Patient referred for chest x-ray. Patient has unchanged right upper lobe opacity on chest x-ray. His labs reveal mild increase of his creatinine over baseline. Troponin is negative. He is improving with hydration. He will require repeat troponin. Patient to be signed out to Dr. Chen pending reevaluation and repeat cardiac enzyme. Please see his note regarding final impression and disposition. Lab Data Lab results reviewed: Yes I reviewed the patient's lab results. Laboratory Results - last 24 hr 02/09/19 02/09/1902/09/19 17:16 17:16 17:16 WBC 9.29 RBC 4.54 Hgb 14.4 Hct 42.8 MCV 94.3 MCH 31.7 MCHC 33.6 RDW 14.4 H Plt Count 209 MPV 10.5 Immature Gran % See Differential Neutrophils % 81.0 Band Neutrophils % 1.0 Lymphocytes % 9.0 Atypical Lymphs % 0 Monocytes % 8.0 Eosinophils % 0.0 Basophils % 0.0 Myelocytes % 1.0 Absolute Neutrophils 7.62 H Absolute Lymphocytes 0.84 L Absolute Monocytes 0.74 H Absolute Eosinophils 0.00 Absolute Basophils 0.00 Differential Comment Manual differential RBC Morphology Normal PT 9.2 L INR 0.9 APTT 20.2 L D-Dimer Sodium 140 Potassium 3.8 Chloride 103 Carbon Dioxide 25.5 Anion Gap 11.5 H BUN 23 H Creatinine 1.45 H Estimated GFR/1.73 m2 49.00 Glucose 134 H Calcium 8.1 L Magnesium 2.4 Total Bilirubin 0.7 AST 22 ALT 72 H Alkaline Phosphatase 70 Troponin I < 0.05 Total Protein 6.8 Albumin 3.1 L 02/09/19 17:17 WBC RBC Hgb Hct MCV MCH MCHC RDW Plt Count MPV Immature Gran % Neutrophils % Band Neutrophils % Lymphocytes % Atypical Lymphs % Monocytes % Eosinophils % Basophils % Myelocytes % Absolute Neutrophils Absolute Lymphocytes Absolute Monocytes Absolute Eosinophils Absolute Basophils Differential Comment RBC Morphology PT INR APTT D-Dimer Cancelled Sodium Potassium Chloride Carbon Dioxide Anion Gap BUN Creatinine Estimated GFR/1.73 m2 Glucose Calcium Magnesium Total Bilirubin AST ALT Alkaline Phosphatase Troponin I Total Protein Albumin ECG Data Attestation: I personally reviewed and interpreted this ECG (s) as follows: Interpretation: Normal sinus rhythm with a rate of 84, the QRS is a narrow, there is no ST segment elevation, there are frequent PVCs present. <Mj Chen MD - Last Filed: 02/09/19 21:03> pt has no chest pain or sob now and is speaking in full sentences eating without issues. He has second negative troponin. Will d/c home and advised f/u with pcp and return precautions given HPI <Ean Lyons MD - Last Filed: 02/09/19 18:30> General Mode of arrival: ambulatory. Date/Time Provider Initiated Documentation: 02/09/19 17:00. Limitations to Documentation: no limitations. Information obtained by: patient. History of Present Illness 63 year old M presents to the emergency department with the chief complaint of Chest pain, improving, described as moderate, Quality is described as dull and constant, and is localized to the chest. Patient reports no radiation. Patient started experiencing this hour(s) and it has been now resolved. No relieving factors improve symptom(s), No exacerbating factors reported . Patient notes diaphoresis, loss of appetite and malaise; denies headaches, nausea/vomiting and syncope. Patient did receive the following treatments prior to arrival, none Related Data Home Medications Medication Instructions Recorded Confirmed [employer] Advantage kit 10/15/17 01/31/19 albuterol sulfate 2.5 mg INHALATION Q4H PRN PRN 30 10/15/17 02/09/19 Days ml Symbicort 10.2 gm INHALATION BID #3 inhaler 09/21/18 02/09/19 tiotropium bromide 18 mcg capsule 1 cap INHALATION DAILY #90 inh 09/26/18 02/09/19 with inhalation device fluoxetine 20 mg tablet 20 mg PO DAILY #90 tab-cap 10/02/18 02/09/19 ondansetron 4 mg PO TID-QID PRN #30 tab 11/12/18 02/09/19 docusate sodium [Colace] 200 mg PO QHS PRN #6 cap 11/29/18 02/09/19 hydroxyzine HCl 25 mg tablet 25 mg PO TID PRN #90 tab 12/04/18 02/09/19 mirtazapine 15 mg tablet 15 mg PO HS #30 tab 12/12/18 02/09/19 clonazepam 0.5 mg tablet 0.5 mg PO BID PRN 12/19/18 02/09/19 apixaban 5 mg (74 tabs) tablets in See Rx Instructions PO PER PKG DIR 12/20/18 02/09/19 a dose pack #74 dose pk prednisone 20 mg tablet 40 mg PO DAILY tab 12/20/18 02/09/19 Blister pack PO 12/27/18 01/31/19 albuterol sulfate 90 mcg/actuation 2 puff INHALATION Q4H PRN PRN #1 01/03/19 02/09/19 aerosol inhaler inh sennosides 8.6 mg-docusate sodium 1 tab PO BID #60 tab 01/08/19 02/09/19 50 mg tablet polyethylene glycol 3350 17 17 gm PO DAILY PRN #850 gm 01/11/19 02/09/19 gram/dose oral powder cholecalciferol (vitamin D3) 50,000 unit PO QWEEK #6 cap 01/15/19 02/09/19 50,000 unit capsule magnesium citrate 75 ml PO DAILY PRN ml 01/22/19 02/09/19 magnesium citrate 120 ml PO BID PRN ml 01/22/19 02/09/19 magnesium citrate 150 ml PO ONCE ml 01/22/19 02/09/19 peg 3350-electrolytes 236 See Rx Instructions PO .COMPLEX 01/22/19 02/09/19 gram-22.74 gram-6.74 gram-5.86 #4000 ml gram solution simethicone 125 mg capsule 125 mg PO QID #30 cap 01/25/19 02/09/19 bisacodyl 10 mg rectal suppository 10 mg WV DAILY PRN #8 each 01/30/19 02/09/19 pantoprazole 40 mg tablet,delayed 40 mg PO DAILY #90 tab 02/08/19 02/09/19 release Previous Rx's Medication Instructions Recorded [facility] Ad[facility] kit 10/15/17 albuterol sulfate 2.5 mg INHALATION Q4H PRN PRN 30 10/15/17 Days ml Symbicort 10.2 gm INHALATION BID #3 inhaler 09/21/18 tiotropium bromide 18 mcg capsule 1 cap INHALATION DAILY #90 inh 09/26/18 with inhalation device fluoxetine 20 mg tablet 20 mg PO DAILY #90 tab-cap 10/02/18 ondansetron 4 mg PO TID-QID PRN #30 tab 11/12/18 docusate sodium [Colace] 200 mg PO QHS PRN #6 cap 11/29/18 hydroxyzine HCl 25 mg tablet 25 mg PO TID PRN #90 tab 12/04/18 mirtazapine 15 mg tablet 15 mg PO HS #30 tab 12/12/18 apixaban 5 mg (74 tabs) tablets in See Rx Instructions PO PER PKG DIR 12/20/18 a dose pack #74 dose pk albuterol sulfate 90 mcg/actuation 2 puff INHALATION Q4H PRN PRN #1 01/03/19 aerosol inhaler inh sennosides 8.6 mg-docusate sodium 1 tab PO BID #60 tab 01/08/19 50 mg tablet polyethylene glycol 3350 17 17 gm PO DAILY PRN #850 gm 01/11/19 gram/dose oral powder cholecalciferol (vitamin D3) 50,000 unit PO QWEEK #6 cap 01/15/19 50,000 unit capsule peg 3350-electrolytes 236 See Rx Instructions PO .COMPLEX 01/22/19 gram-22.74 gram-6.74 gram-5.86 #4000 ml gram solution simethicone 125 mg capsule 125 mg PO QID #30 cap 01/25/19 bisacodyl 10 mg rectal suppository 10 mg WV DAILY PRN #8 each 01/30/19 pantoprazole 40 mg tablet,delayed 40 mg PO DAILY #90 tab 02/08/19 release Allergies Allergy/AdvReac Type Severity Reaction Status Date / Time No Known Allergies Allergy Verified 02/09/19 17:04 General Stated Complaint: Chest Pain FLASH: 2 Review of Systems <Ean Lyons MD - Last Filed: 02/09/19 18:30> Review of Systems 6 systems reviewed and otherwise negative. 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/12 Housing: other Details: Care Bed at this time Number of Children: 0 Communication Needs: None current occupation: not working Current gender identity: male What type of physical activity do you participate in: none and other Details: started lifting weights Frequency: daily Seatbelt use: always Drive 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 Exam <Ean Lyons MD - Last Filed: 02/09/19 18:30> Narrative Exam Narrative: GEN: awake, alert, oriented 3. Pleasant, well groomed, interactive. HEAD: Normocephalic, atraumatic ENT: Mucous membranes dry, oropharynx unremarkable, External ear exam unremarkable EYES: PERRL, EOMI NECK: Full ROM, no URSZULA, no menigismus CHEST/RESP: Nontender, clear to auscultation bilateral, no wheeze/rhonchi/rales CARDIOVASCULAR: Pulse approximately high 90s during time of exam, RRR, no murmur, rub jeannie. 2+ Rad pulse bilateral ABDOMEN: Soft, nontender, no mass. +Bowel sounds EXT: Full ROM, no edema, no rash Neuro: Grossly normal neurologic exam, conversant, interactive. Psych: Speech fluent, thoughts congruent, affect anxious Course <Ean Lyons MD - Last Filed: 02/09/19 18:30> Vital Signs Temperature 37.2 C 02/09/19 16:57 Pulse 96 H 02/09/19 16:57 Respiratory Rate 18 02/09/19 16:57 Blood Pressure 135/89 02/09/19 16:57 Pulse Oximetry 93 L 02/09/19 16:57 Temperature 37.2 C 02/09/19 16:57 Temperature Source Temporal Artery Scan 02/09/19 16:57 Pulse 96 H 02/09/19 16:57 Respiratory Rate 18 02/09/19 16:57 Respiratory Effort 02/09/19 17:02 Blood Pressure 135/89 02/09/19 16:57 Blood Pressure Position Supine 02/09/19 16:57 Pulse Oximetry 93 L 02/09/19 16:57 Oxygen Delivery Method Room Air 02/09/19 16:57 Oxygen Flow Rate 0 02/09/19 16:57 Pain Level 6 02/09/19 16:57 Sign Out <Ean Lyons MD - Last Filed: 02/09/19 18:30> Sign Out Data: Sign Out Comment: followup repeat troponin, re-eval. Last updated by Ean Lyons MD at 02/09/19 19:43
[2019-02-09 17:24] LABS: HCT 42.8 % (40.0-50.0); HGB 14.4 g/dL (13.5-17.5); Mean Corp. HGB Concentration 33.6 g/dL (32.0-36.0); Mean Corpuscular Hemoglobin 31.7 pg (27.0-33.0); Mean Corpuscular Volume 94.3 fL (80-95); Mean Platelet Volume 10.5 fL (8.0-11.0); Platelet Count 209 x1000/uL (130-400); RBC 4.54 m/cumm (4.50-6.00); RBC Distribution Width 14.4 % (11.8-14.1); White Blood Cell Count 9.29 k/cumm (4.4-10.8)
[2019-02-09 17:37] LABS: INR 0.9 (0.9-1.1); PTT Activated 20.2 sec (21.0-31.4); Prothrombin Time 9.2 sec (9.3-11.0)
--- NOTE | 2019-02-09 17:38 | DI.RAD_ITS ---
SYMPTOM/DIAGNOSIS: LT CHEST PAIN PA AND LATERAL CHEST: Note is again made of previously described right upper lobe mass as seen on chest radiographs and chest CT of 12/2018. No gross interval change in appearance since that time. No new intrapulmonary consolidation. No pleural effusion. No pneumothorax. CONCLUSION: Right upper lobe known lung carcinoma, stable appearance.
[2019-02-09 17:41] LABS: ALT 72 U/L (16-63); AST 22 U/L (15-37); Albumin 3.1 g/dL (3.4-5.0); Alkaline Phosphatase 70 U/L (46-116); Anion Gap 11.5 mmol/L (3-11); BUN 23 mg/dL (7-18); Bilirubin, Total 0.7 mg/dL (0.2-1.0); CO2 25.5 mmol/L (21.0-32.0); CREATININE 1.45 mg/dL (0.70-1.30); Calcium 8.1 mg/dL (8.5-10.1); Chloride 103 mmol/L (98-107); Glucose 134 mg/dL (70-100); Magnesium 2.4 mg/dL (1.8-2.4); Potassium 3.8 mmol/L (3.5-5.1); Sodium 140 mmol/L (136-145); Total Protein 6.8 g/dL (6.4-8.2)
[2019-02-09 17:42] LABS: Troponin I < 0.05 ng/mL (0.00-0.06)
[2019-02-09 17:48] LABS: Absolute Lymphocyte Count 0.84 k/cumm (1.2-3.4); Absolute Monocyte Count 0.74 k/cumm (0.11-0.7); Absolute Neutrophil Count 7.62 k/cumm (1.2-6.7); Atypical Lymphocytes % 0
[2019-02-09 17:49] LABS: Diff Comment Manual Differential; RBC Morphology Normal
[2019-02-09] MEDS: Normal Saline 1,000 ML 1000 ML IV (18:00)
--- NOTE | 2019-02-09 18:06 | DI.VRAD_ITS ---
EXAM: XR Chest, 2 Views EXAM DATE/TIME: 02/09/2019 5:18 PM CLINICAL HISTORY: 63 years old, male; Left-sided chest pain TECHNIQUE: Imaging protocol: XR of the chest Views: 2 views. COMPARISON: CR XR CHEST 2V PA LATERAL 12/07/2018 6:01 PM FINDINGS: Lungs: Opacity in the right upper lobe may represent atelectasis or pneumonia. This was also present in December. Rule out right hilar mass causing post obstructive process. Pleural space: Unremarkable. No pleural effusion. No pneumothorax. Heart/Mediastinum: See Lungs Finding. Bones/joints: Unremarkable. IMPRESSION: Opacity in the right upper lobe may represent atelectasis or pneumonia. This was also present in December. Rule out right hilar mass causing post obstructive process. Differential includes mass such as lung cancer. Consider CT for further evaluation Dictated and Authenticated by: Damián Guevara MD. Ordering:ADELE Mckoy MD
[2019-02-09 20:51] LABS: Troponin I < 0.05 ng/mL (0.00-0.06)
[2019-02-09 20:58] VITALS: BP 133/77; PULSE 83; RESP 18; TEMP 36.8; O2SAT 94
== END 2019-02-09 21:10 | disposition home or self-care (01) ==
PROVIDERS: Emergency Medicine; Emergency Provider Emergency Medicine; PCP Internal Medicine
DX: R06.02 Shortness of breath (principal); R42 Dizziness and giddiness; E86.0 Dehydration; F41.9 Anxiety disorder, unspecified
CPT/HCPCS: 36415; 80053; 93005; 96360; 96361; 99285; 71046; 83735; 84484; 85025; 85379; 85610; 85730; 93010; 99284

== ENCOUNTER 2019-02-19 13:55 | Outpatient (CLI) | payer MEDICAID, SELFPAY ==
[2019-02-19 15:22] LABS: Calcium 7.8 mg/dL (8.5-10.1); Magnesium 2.4 mg/dL (1.8-2.4); PHOSPHORUS 4.9 mg/dL (2.6-4.7)
[2019-02-20 11:55] LABS: Parathyroid Hormone,Intact 59 pg/ml (19-88)
[2019-02-21 05:00] LABS: Vitamin D 25 Total 41.6 ng/ml (30-100)
== END 2019-02-19 14:15 ==
PROVIDERS: PCP Internal Medicine; Visit Provider Internal Medicine
DX: E55.9 Vitamin D deficiency, unspecified (principal); E83.42 Hypomagnesemia; E83.51 Hypocalcemia
CPT/HCPCS: 36415; 82306; 82310; 83735; 83970; 84100

== ENCOUNTER 2019-02-23 06:12 | Emergency (ER) | payer MEDICAID, SELFPAY ==
[2019-02-23 06:11] VITALS: BP 146/92; PULSE 77; RESP 19; TEMP 37.1; O2SAT 98
--- NOTE | 2019-02-23 06:14 | ED.GENADUL_ITS ---
Discharge Plan Disposition Patient Disposition: HOME Condition: Stable Discharge Details Chief Complaint: Abd Prob Clinical Impression: COPD (chronic obstructive pulmonary disease), Adjustment disorder with anxiety, Abdominal pain Primary Care Provider: Deborah Chow ED Provider: Mj Chen Home Meds and New Rx's Prescriptions: Continued Spiriva with HandiHaler 18 mcg capsule, w/inhalation device 1 cap Inhalation DAILY Qty: 90 RF: 0 mirtazapine 15 mg tablet 15 mg PO HS Qty: 30 RF: 1 albuterol sulfate [ProAir HFA] 90 mcg/actuation HFA aerosol inhaler 2 puff Inhalation Q4H PRN PRN (Reason: Shortness Of Breath) Qty: 1 RF: 5 polyethylene glycol 3350 [Miralax] 17 gram/dose powder 17 gm PO DAILY PRN (Reason: constipation) Qty: 850 RF: 12 bisacodyl 10 mg suppository 10 mg GA DAILY PRN (Reason: constipation) Qty: 8 RF: 0 fluoxetine 20 mg tablet 20 mg PO DAILY Qty: 90 RF: 3 clonazepam [Klonopin] 0.5 mg tablet 0.5 mg PO BID PRNRF: 0 apixaban 5 mg (74 tabs) tablets,dose pack See Rx Instructions PO PER PKG DIR Qty: 74 RF: 3 sennosides-docusate sodium [Senna-Time S] 8.6-50 mg tablet 1 tab PO BID Qty: 60 RF: 1 peg 3350-electrolytes [Golytely] 236-22.74-6.74 -5.86 gram recon soln See Rx Instructions PO .COMPLEX Qty: 4000 RF: 2 cholecalciferol (vitamin D3) 1,000 unit capsule 1,000 unit PO DAILY Qty: 90 RF: 3 calcium carbonate 500 mg calcium (1,250 mg) tablet 500 mg PO BID Qty: 180 RF: 3 nystatin 100,000 unit/mL suspension 1 ml PO TID Qty: 5 RF: 0 hydroxyzine HCl 25 mg tablet 25 mg PO BID PRN (Reason: anxiety) Qty: 180 RF: 2 pantoprazole 40 mg tablet,delayed release (DR/EC) 40 mg PO DAILY Qty: 90 RF: 3 (DME) OptiChamber Advantage 1 EACH spacer 1 ea Miscellaneous DIRECTED RF: 0 albuterol sulfate 2.5 MG/3 ML solution for nebulization 2.5 mg Inhalation Q4H PRN PRN (Reason: Shortness Of Breath) 30 Days RF: 0 docusate sodium [Colace] 100 mg capsule 200 mg PO QHS PRN (Reason: constipation) Qty: 6 RF: 0 Symbicort 10.2 GM HFA aerosol inhaler 10.2 gm Inhalation BID Qty: 3 RF: 3 ondansetron 4 mg tablet,disintegrating 4 mg PO TID-QID PRN (Reason: nausea and vomiting) Qty: 30 RF: 0 Discharge Instructions Additional Instructions: follow up with your primary care provider within 1-2 weeks if symptoms continue you might want to buy a home oxygen saturation monitor so you can check your own oxygen levels as wellas a thermometer Medical Decision Making 63 yo male with hx of copd, pe on eliquis, anxiety, who comes in with months of shortness of breath. IT did not acutely worsen today and states it feels similar to how he's felt for months. He felt warm earlier today but has not had documented fevers per pt. He denies chest pain, has chronic epigastric pain that is unchanged and has no tenderness on abdominal exam. He is speaking in full sentence walking in no repsiratory distress with normal oxygenation and pulses. Given lack of vital sign abnormalities and chrnoic unchanged problems and well appearance do not feel acute workup indiated. He has no hypoxia, worsening cough or fevers to suggest pna and do not feel xray or labs indicated. HE has no tachycardia or hypoxia so doubt recurrent PE at this time and given lack of chest pain or exertional symptoms doubt acs. I advised f/u with pcp and return if worsening and he was in agreement with the plan. Differential Diagnosis Differential Diagnosis: copd, anxiety, bronchitis Medical Records Medical records reviewed: Yes I reviewed the patient's medical records. HPI General Mode of arrival: EMS . Date/Time Provider Initiated Documentation: 02/23/19 06:14 . Limitations to Documentation: no limitations . Information obtained by: patient . History of Present Illness 63 year old M presents to the emergency department with the chief complaint of shortness of breath, described as mild, Patient started experiencing this month(s) (5) and it has been constant. No relieving factors improve symptom(s), No exacerbating factors reported . Patient did receive the following treatments prior to arrival, none Related Data Home Medications Medication Instructions Recorded Confirmed OptiChamber Advantage kit 10/15/17 02/23/19 albuterol sulfate 2.5 mg INHALATION Q4H PRN PRN 30 10/15/17 02/23/19 Days ml Symbicort 10.2 gm INHALATION BID #3 inhaler 09/21/18 02/23/19 tiotropium bromide 18 mcg capsule 1 cap INHALATION DAILY #90 inh 09/26/18 02/23/19 with inhalation device fluoxetine 20 mg tablet 20 mg PO DAILY #90 tab-cap 10/02/18 02/23/19 ondansetron 4 mg PO TID-QID PRN #30 tab 11/12/18 02/23/19 docusate sodium [Colace] 200 mg PO QHS PRN #6 cap 11/29/18 02/23/19 mirtazapine 15 mg tablet 15 mg PO HS #30 tab 12/12/18 02/23/19 clonazepam 0.5 mg tablet 0.5 mg PO BID PRN 12/19/18 02/23/19 apixaban 5 mg (74 tabs) tablets in See Rx Instructions PO PER PKG DIR 12/20/18 02/23/19 a dose pack #74 dose pk albuterol sulfate 90 mcg/actuation 2 puff INHALATION Q4H PRN PRN #1 01/03/19 02/23/19 aerosol inhaler inh sennosides 8.6 mg-docusate sodium 1 tab PO BID #60 tab 01/08/19 02/23/19 50 mg tablet polyethylene glycol 3350 17 17 gm PO DAILY PRN #850 gm 01/11/19 02/23/19 gram/dose oral powder peg 3350-electrolytes 236 See Rx Instructions PO .COMPLEX 01/22/19 02/23/19 gram-22.74 gram-6.74 gram-5.86 #4000 ml gram solution bisacodyl 10 mg rectal suppository 10 mg GA DAILY PRN #8 each 01/30/19 02/23/19 pantoprazole 40 mg tablet,delayed 40 mg PO DAILY #90 tab 02/08/19 02/23/19 release calcium carbonate 500 mg calcium 500 mg PO BID #180 tab 02/19/19 02/23/19 (1,250 mg) tablet cholecalciferol (vitamin D3) 1,000 1,000 unit PO DAILY #90 cap 02/19/19 02/23/19 unit capsule nystatin 100,000 unit/mL oral 1 ml PO TID #5 ml 02/19/19 02/23/19 suspension hydroxyzine HCl 25 mg tablet 25 mg PO BID PRN #180 tab 02/20/19 02/23/19 Previous Rx's Medication Instructions Recorded OptiChamber Advantage kit 10/15/17 albuterol sulfate 2.5 mg INHALATION Q4H PRN PRN 30 10/15/17 Days ml Symbicort 10.2 gm INHALATION BID #3 inhaler 09/21/18 tiotropium bromide 18 mcg capsule 1 cap INHALATION DAILY #90 inh 09/26/18 with inhalation device fluoxetine 20 mg tablet 20 mg PO DAILY #90 tab-cap 10/02/18 ondansetron 4 mg PO TID-QID PRN #30 tab 11/12/18 docusate sodium [Colace] 200 mg PO QHS PRN #6 cap 11/29/18 mirtazapine 15 mg tablet 15 mg PO HS #30 tab 12/12/18 apixaban 5 mg (74 tabs) tablets in See Rx Instructions PO PER PKG DIR 12/20/18 a dose pack #74 dose pk albuterol sulfate 90 mcg/actuation 2 puff INHALATION Q4H PRN PRN #1 01/03/19 aerosol inhaler inh sennosides 8.6 mg-docusate sodium 1 tab PO BID #60 tab 01/08/19 50 mg tablet polyethylene glycol 3350 17 17 gm PO DAILY PRN #850 gm 01/11/19 gram/dose oral powder peg 3350-electrolytes 236 See Rx Instructions PO .COMPLEX 01/22/19 gram-22.74 gram-6.74 gram-5.86 #4000 ml gram solution bisacodyl 10 mg rectal suppository 10 mg GA DAILY PRN #8 each 01/30/19 pantoprazole 40 mg tablet,delayed 40 mg PO DAILY #90 tab 02/08/19 release calcium carbonate 500 mg calcium 500 mg PO BID #180 tab 02/19/19 (1,250 mg) tablet cholecalciferol (vitamin D3) 1,000 1,000 unit PO DAILY #90 cap 02/19/19 unit capsule nystatin 100,000 unit/mL oral 1 ml PO TID #5 ml 02/19/19 suspension hydroxyzine HCl 25 mg tablet 25 mg PO BID PRN #180 tab 02/20/19 Allergies Allergy/AdvReac Type Severity Reaction Status Date / Time No Known Allergies Allergy Verified 02/23/19 06:15 General FLASH: 2 Review of Systems Review of Systems ROS Unobtainable: All systems reviewed & are unremarkable except as noted in HPI and below Constitutional Constitutional: Denies chills Cardiovascular Cardiovascular: Denies chest pain Gastrointestinal Gastrointestinal: Denies abdominal pain, Denies nausea and Denies vomiting Musculoskeletal Musculoskeletal: Denies joint swelling [facility] Social History (Updated 02/12/19 @ 12:09 by Brooke Augustine LPN) Smoking/Tobacco Use Status: Former Tobacco Use Quit Date: 06/05/98 Tobacco: How many years used: 30 Smokeless tobacco user: chewing tobacco Quit status: not considering quitting Alcohol Intake: former Drug use: Never Substance use type: does not use Details: Adopted: No Foster care: No Household members: other 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: 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 26/12 Housing: other Details: Care Bed at this time Number of Children: 0 Communication Needs: None current occupation: not working Current gender identity: male What type of physical activity do you participate in: none and other Details: started lifting weights Frequency: daily Seatbelt use: always Drive intox or ride w/intox rental car ferry 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 Exam Const General: no acute distress Orientation: alert HENMT Head: normal to inspection Ears: external ears normal General nose exam: external nose normal Mouth: moist mucous membranes Eyes General: appearance normal, both eyes and all related structures Neck Neck: normal visual inspection Resp Effort & Inspection: normal respiratory effort and able to speak in complete sentences Cardio Rate: regular rate GI Palpation: soft, no guarding and nontender Skin General skin exam: no rashes or lesions noted Neuro General: alert and oriented x3 Extrem General: normal to inspection Psych Mental Status: mental status grossly normal
== END 2019-02-23 06:28 | disposition home or self-care (01) ==
LOC: ER 06:32
PROVIDERS: Emergency Provider Emergency Medicine; PCP Internal Medicine
DX: G89.29 Other chronic pain (principal); R10.9 Unspecified abdominal pain; J44.9 Chronic obstructive pulmonary disease, unspecified; F43.22 Adjustment disorder with anxiety; Z87.891 Personal history of nicotine dependence; Z79.01 Long term (current) use of anticoagulants
CPT/HCPCS: 99282

== ENCOUNTER 2019-03-10 07:17 | Emergency (ER) | payer MEDICARE, MEDICAID, SELFPAY ==
[2019-03-10 07:21] VITALS: BP 149/99; PULSE 77; RESP 16; TEMP 36.7; O2SAT 98
--- NOTE | 2019-03-10 07:52 | ED.GENADUL_ITS ---
Discharge Plan Disposition Patient Disposition: HOME Condition: Stable Discharge Details Chief Complaint: Abd Prob Clinical Impression: Constipation Primary Care Provider: Deborah Chow ED Provider: Angelica Majano Home Meds and New Rx's Prescriptions: Continued Spiriva with HandiHaler 18 mcg capsule, w/inhalation device 1 cap Inhalation DAILY Qty: 90 RF: 0 mirtazapine 15 mg tablet 15 mg PO HS Qty: 30 RF: 1 albuterol sulfate [ProAir HFA] 90 mcg/actuation HFA aerosol inhaler 2 puff Inhalation Q4H PRN PRN (Reason: Shortness Of Breath) Qty: 1 RF: 5 polyethylene glycol 3350 [Miralax] 17 gram/dose powder 17 gm PO DAILY PRN (Reason: constipation) Qty: 850 RF: 12 bisacodyl 10 mg suppository 10 mg KS DAILY PRN (Reason: constipation) Qty: 8 RF: 0 fluoxetine 20 mg tablet 20 mg PO DAILY Qty: 90 RF: 3 clonazepam [Klonopin] 0.5 mg tablet 0.5 mg PO BID PRNRF: 0 apixaban 5 mg (74 tabs) tablets,dose pack See Rx Instructions PO PER PKG DIR Qty: 74 RF: 3 sennosides-docusate sodium [Senna-Time S] 8.6-50 mg tablet 1 tab PO BID Qty: 60 RF: 1 peg 3350-electrolytes [Golytely] 236-22.74-6.74 -5.86 gram recon soln See Rx Instructions PO .COMPLEX Qty: 4000 RF: 2 cholecalciferol (vitamin D3) 1,000 unit capsule 1,000 unit PO DAILY Qty: 90 RF: 3 calcium carbonate 500 mg calcium (1,250 mg) tablet 500 mg PO BID Qty: 180 RF: 3 hydroxyzine HCl 25 mg tablet 25 mg PO BID PRN (Reason: anxiety) Qty: 180 RF: 2 pantoprazole 40 mg tablet,delayed release (DR/EC) 40 mg PO DAILY Qty: 90 RF: 3 (DME) [employer] Advantage 1 EACH spacer 1 ea Miscellaneous DIRECTED RF: 0 albuterol sulfate 2.5 MG/3 ML solution for nebulization 2.5 mg Inhalation Q4H PRN PRN (Reason: Shortness Of Breath) 30 Days RF: 0 docusate sodium [Colace] 100 mg capsule 200 mg PO QHS PRN (Reason: constipation) Qty: 6 RF: 0 Symbicort 10.2 GM HFA aerosol inhaler 10.2 gm Inhalation BID Qty: 3 RF: 3 ondansetron 4 mg tablet,disintegrating 4 mg PO TID-QID PRN (Reason: nausea and vomiting) Qty: 30 RF: 0 Discharge Instructions Instructions: Constipation (ED) Additional Instructions: Encourage water intake. Her labs and imaging are reassuring today. The stool in your rectum is soft and should pass naturally. Please continue with medications as previously prescribed. You may use simethicone to help with gas and bloating, this is available [id number] and is often advertises Gas-X. You may use MiraLAX, this is worked well for her in the past. May also try magnesium citrate, this is available [id number]. Please follow-up with primary care this week for reevaluation. If you develop new or worsening symptoms please seek care urgently once again. Referrals: Deborah Chow MD [Primary Care Provider] - Discharge Data Discharge Date/Time-TO BE ENTERED AT DEPARTURE: 03/10/19 11:15 Medical Decision Making Patient is a 63-year-old male, brought in via EMS, with chief complaint of diffuse abdominal discomfort and constipation. Patient is well-known to myself. He is been having chronic abdominal pain for months to years at this point. States that the past month he feels like his been getting intermittently worse. Has had constipation for the past 4 days. He reports that he was seen by bicycle ii assembler last week at [facility] who advised that he continue to monitor his symptoms follow-up in the emergency department any new or worsening symptoms. Patient has noted his abdomen become more distended. Has not been able to pass flatus. Has not had positive stool for the past 4 days. States that he has been trying multiple tablets adhere to stool softeners for the past few days without success or relief of his symptoms. No nausea or vomiting. No recent travel. Endorses chronic shortness of breath which is chronic and unchanged. States he has had intermittent dysuria with bilateral CVA tenderness. Did have some dysuria this morning. No hematuria. No penile or testicular discomfort. No fevers or chills. On exam, patient is resting comfortably. Lungs are clear, normal cardiac exam. He is noted to be hypertensive at 149/99, vital signs otherwise. Abdomen is distended, diffusely uncomfortable with palpation but no peritoneal findings. He has hyperactive bowel sounds. Is not had an obstruction historically. Plan for labs and imaging. As he is not having a passing flatus I am concerned for possible obstruction. Patient has not been imaged here in the past 2 months. Did review his chart from [facility] notes recently. Patient has oncologist but has not actually been seen by bicycle ii assembler. The last time he was evaluate d for constipation at [facility] was in December and that again was by oncology. At that point, they reported that MiraLAX worked well for the patient. Exam today is different than that it was reported in December, at that time, patient is not distended or tympanitic. FINDINGS: Liver: Normal. No mass. Gallbladder and bile ducts: Normal. No calcified stones. No ductal dilation. Pancreas: Normal. No ductal dilation. Spleen: Normal. No splenomegaly. Adrenals: Normal. No mass. Kidneys and ureters: Normal. No hydronephrosis. Stomach and bowel: Unremarkable. No obstruction. No mucosal thickening. Appendix: No evidence of appendicitis. Intraperitoneal space: Unremarkable. No free air. No significant fluid collection. Vasculature: Unremarkable. No abdominal aortic aneurysm. Lymph nodes: Unremarkable. No enlarged lymph nodes. Bladder: Unremarkable as visualized. Reproductive: Unremarkable as visualized. Bones/joints: Degenerative changes lower lumbar spine, with severe disc space narrowing at L4-5. No acute fracture. Soft tissues: Unremarkable. IMPRESSION: No acute findings. COREY preformed, no stool burden palpated. He appears to be passing some stool at this time. No evidence of blood or melena on rectal exam. Patient tolerated this well with no prostate tenderness. No stool was palpated in the rectal vault and the stool that was noted to be on the bed was quite soft. Bloating seems to be subsiding on reexamination. At this point, patient is safe for discharge. He feels reassured and agrees with this plan. We did discuss options to help with his constipation. This is an acute on chronic issue. I advised close primary care. He is precautions. Will call primary care tomorrow. We will continue with remedies at home to help with his constipation. All his questions and concerns were addressed and is agreement this plan. Patient also advised to use simethicone to help with bloating and gas should this recur. HPI General Mode of arrival: EMS . Date/Time Provider Initiated Documentation: 03/10/19 07:52 . Limitations to Documentation: no limitations . Information obtained by: RN notes reviewed . History of Present Illness 63 year old M presents to the emergency department with the chief complaint of Abdominal pain, constipation, described as moderate and similar to prior episodes, with intensity rated at 7. Quality is described as aching, and is localized to the abdomen. Patient reports radiation to back. Patient started experiencing this month(s) and it has been constant. No relieving factors improve symptom(s), No exacerbating factors reported . Patient notes shortness of breath (Chronic, unchanged); denies chest pain, cough, diaphoresis, fever/chills, headaches, loss of appetite, nausea/vomiting and rash. Patient did receive the following treatments prior to arrival, other (Reports trying multiple stool softeners) Related Data Home Medications Medication Instructions Recorded Confirmed [employer] Advantage kit 10/15/17 03/05/19 albuterol sulfate 2.5 mg INHALATION Q4H PRN PRN 30 10/15/17 03/10/19 Days ml Symbicort 10.2 gm INHALATION BID #3 inhaler 09/21/18 03/10/19 tiotropium bromide 18 mcg capsule 1 cap INHALATION DAILY #90 inh 09/26/18 03/10/19 with inhalation device fluoxetine 20 mg tablet 20 mg PO DAILY #90 tab-cap 10/02/18 03/10/19 ondansetron 4 mg PO TID-QID PRN #30 tab 11/12/18 03/10/19 docusate sodium [Colace] 200 mg PO QHS PRN #6 cap 11/29/18 03/10/19 mirtazapine 15 mg tablet 15 mg PO HS #30 tab 12/12/18 03/10/19 clonazepam 0.5 mg tablet 0.5 mg PO BID PRN 12/19/18 03/10/19 apixaban 5 mg (74 tabs) tablets in See Rx Instructions PO PER PKG DIR 12/20/18 03/10/19 a dose pack #74 dose pk albuterol sulfate 90 mcg/actuation 2 puff INHALATION Q4H PRN PRN #1 01/03/19 03/10/19 aerosol inhaler inh sennosides 8.6 mg-docusate sodium 1 tab PO BID #60 tab 01/08/19 03/10/19 50 mg tablet polyethylene glycol 3350 17 17 gm PO DAILY PRN #850 gm 01/11/19 03/10/19 gram/dose oral powder peg 3350-electrolytes 236 See Rx Instructions PO .COMPLEX 01/22/19 03/10/19 gram-22.74 gram-6.74 gram-5.86 #4000 ml gram solution bisacodyl 10 mg rectal suppository 10 mg KS DAILY PRN #8 each 01/30/19 03/10/19 pantoprazole 40 mg tablet,delayed 40 mg PO DAILY #90 tab 02/08/19 03/10/19 release calcium carbonate 500 mg calcium 500 mg PO BID #180 tab 02/19/19 03/10/19 (1,250 mg) tablet cholecalciferol (vitamin D3) 1,000 1,000 unit PO DAILY #90 cap 02/19/19 03/10/19 unit capsule hydroxyzine HCl 25 mg tablet 25 mg PO BID PRN #180 tab 02/20/19 03/10/19 Previous Rx's Medication Instructions Recorded [facility] 10/15/17 albuterol sulfate 2.5 mg INHALATION Q4H PRN PRN 30 10/15/17 Days ml Symbicort 10.2 gm INHALATION BID #3 inhaler 09/21/18 tiotropium bromide 18 mcg capsule 1 cap INHALATION DAILY #90 inh 09/26/18 with inhalation device fluoxetine 20 mg tablet 20 mg PO DAILY #90 tab-cap 10/02/18 ondansetron 4 mg PO TID-QID PRN #30 tab 11/12/18 docusate sodium [Colace] 200 mg PO QHS PRN #6 cap 11/29/18 mirtazapine 15 mg tablet 15 mg PO HS #30 tab 12/12/18 apixaban 5 mg (74 tabs) tablets in See Rx Instructions PO PER PKG DIR 12/20/18 a dose pack #74 dose pk albuterol sulfate 90 mcg/actuation 2 puff INHALATION Q4H PRN PRN #1 01/03/19 aerosol inhaler inh sennosides 8.6 mg-docusate sodium 1 tab PO BID #60 tab 01/08/19 50 mg tablet polyethylene glycol 3350 17 17 gm PO DAILY PRN #850 gm 01/11/19 gram/dose oral powder peg 3350-electrolytes 236 See Rx Instructions PO .COMPLEX 01/22/19 gram-22.74 gram-6.74 gram-5.86 #4000 ml gram solution bisacodyl 10 mg rectal suppository 10 mg KS DAILY PRN #8 each 01/30/19 pantoprazole 40 mg tablet,delayed 40 mg PO DAILY #90 tab 02/08/19 release calcium carbonate 500 mg calcium 500 mg PO BID #180 tab 02/19/19 (1,250 mg) tablet cholecalciferol (vitamin D3) 1,000 1,000 unit PO DAILY #90 cap 02/19/19 unit capsule hydroxyzine HCl 25 mg tablet 25 mg PO BID PRN #180 tab 02/20/19 Allergies Allergy/AdvReac Type Severity Reaction Status Date / Time No Known Allergies Allergy Verified 03/10/19 07:24 General Stated Complaint: Abd Prob FLASH: 3 Review of Systems Constitutional Constitutional: Reports as per HPI, Denies chills, Denies fatigue, Denies fever(s) and Denies headache(s) ENT Ears, Nose, Mouth, and Throat: Denies headache(s) Cardiovascular Cardiovascular: Reports as per HPI, Denies chest pain and Denies dyspnea Respiratory Respiratory: Reports as per HPI, Denies cough and Denies dyspnea Gastrointestinal Gastrointestinal: Reports as per HPI Genitourinary Genitourinary: Denies system reviewed and no additional complaints, except as docu (patient denies any change in urinary habits) Musculoskeletal Musculoskeletal: Reports as per HPI and Denies back pain Integumentary/Breasts Skin/Breast: Reports as per HPI and Denies rash Neurologic Neurologic: Reports as per HPI and Denies headache(s) Endocrine Endocrine: Denies fatigue [facility], [facility] Medical History Adjustment disorder with anxiety (Chronic) Alcohol abuse (Chronic) Anxiety (Chronic) COPD (chronic obstructive pulmonary disease) (Chronic) Dyspepsia (Chronic) Malignant neoplasm of right lung (Chronic) Tubular adenoma of colon (Inactive) Surgical History colonoscopy (Inactive 01/19/15) Also had a decompress colonoscopy with Dr Haresh Vásquez at [facility] on 06/09/18 for significant colon distention seen on CT scan, no prep done,therapeutic, diagnositc, still due for repeat on 01/19/25 History of lung biopsy (Resolved) History of surgery on upper extremity (Resolved) left Status post cataract extraction and insertion of intraocular lens of left eye (Chronic 11/05/18) Social History Smoking/Tobacco Use Status: Former Tobacco Use Quit Date: 06/05/98 Tobacco: How many years used: 30 Smokeless tobacco user: chewing tobacco Quit status: not considering quitting Alcohol Intake: former Drug use: Never Substance use type: does not use Details: Adopted: No Foster care: No Household members: other Details: [employer] Care Provider 26/12 Housing: other Details: Care Bed at this time Number of Children: 0 Communication Needs: None Do you need help understanding health information?: Often current occupation: not working Current gender identity: male How often do you talk on the phone with friends or family?: three or more times per week Panel score (0-1 are the most socially isolated patients): 1 What type of physical activity do you participate in: none and other Details: started lifting weights Frequency: daily Seatbelt use: always Drive intox or ride w/intox 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 Exam Const General: cooperative, healthy appearing, comfortable, no acute distress and well developed Nutritional Appearance: average body habitus and well nourished Orientation: alert and awake [facility] Head: normal to inspection Mouth: moist mucous membranes Resp Effort & Inspection: normal respiratory effort, able to speak in complete sentences and no respiratory distress Auscultation: clear to auscultation bilaterally, no rales, no rhonchi and no wheezes Cardio Rate: regular rate Rhythm: regular rhythm Heart Sounds: S1 normal and S2 normal GI Inspection: distended, no incisions, no visible herniation, no visible pulsation and No visible peristalsis Palpation: no hepatosplenomegaly, no aortic enlargement, firm, no guarding, no hepatosplenomegaly, no masses, no pulsatile masses, tender (Diffusely tender, no peritoneal findings) and No ascites Percussion: tympanic to percussion Auscultation: hyperactive bowel sounds Back/Spine/Pelvis Back: CVA tenderness (bilaterally) Skin General skin exam: no rashes or lesions noted Trauma: no lacerations or abrasions Neuro General: alert and awake Cognition: normal cognition Speech: speech normal Gait: normal gait Psych Appearance: grossly normal and well kempt Mental Status: mental status grossly normal Speech and Movement: speech and movement normal Course Vital Signs Vital signs: Vital Signs Temperature 36.7 C 03/10/19 07:21 Pulse 77 03/10/19 07:21 Respiratory Rate 16 03/10/19 07:21 Blood Pressure 149/99 H 03/10/19 07:21 Pulse Oximetry 98 03/10/19 07:21 Temperature 36.7 C 03/10/19 07:21 Temperature Source Skin 03/10/19 07:21 Pulse 77 03/10/19 07:21 Respiratory Rate 16 03/10/19 07:21 Respiratory Effort Non-Labored 03/10/19 07:21 Blood Pressure 149/99 H 03/10/19 07:21 Blood Pressure Position Sitting 03/10/19 07:21 Pulse Oximetry 98 03/10/19 07:21 Pain Level 8 03/10/19 07:21
[2019-03-10 07:57] LABS: Bilirubin Negative (Negative); Blood Negative (Negative); Clarity Clear (Clear); Glucose Negative (Negative); Ketones Negative (Negative); Leukocyte Esterase Negative (Negative); Nitrite Negative (Negative); Urobilinogen 0.2 EU/dL (Up TO 0.2)
--- NOTE | 2019-03-10 08:05 | DI.CT_ITS ---
EXAM: CT ABDOMEN PELVIS W CLINICAL HISTORY: abdomen distended and tympanitic. TECHNIQUE: Examination was carried out according to the usual protocol with intravenous contrast enh ancement. COMPARISON: CT ABDOMEN PELVIS WO from 01/26/2019 FINDINGS: The bladder is intact. Reproductive organs as visualized are unremarkable. Degenerative changes invo lving the lumbar spine are identified. No acute bony abnormality is seen. The soft tissues are unre markable The liver, gallbladder, pancreas, spleen, kidneys and adrenals appear unremarkable. There is no evid ence of bowel obstruction. There is no evidence of free air or free fluid in the intraperitoneal spa ce. The appendix is normal. There is no evidence of an aortic aneurysm. There is no evidence of a m ass or lymphadenopathy. Degenerative changes involving the spine are apparent. No acute bony abnorma lity is seen. The soft tissues are unremarkable. IMPRESSION: No evidence of an acute abdomen.
[2019-03-10] MEDS: Normal Saline 1,000 ML 125 ML IV (08:20)
[2019-03-10 08:23] LABS: Abs Immature Grans 0.22 k/cumm (0.0-0.09); HCT 39.2 % (40.0-50.0); HGB 13.2 g/dL (13.5-17.5); Mean Corp. HGB Concentration 33.7 g/dL (32.0-36.0); Mean Corpuscular Hemoglobin 32.2 pg (27.0-33.0); Mean Corpuscular Volume 95.6 fL (80-95); Mean Platelet Volume 9.1 fL (8.0-11.0); Platelet Count 211 x1000/uL (130-400); White Blood Cell Count 5.48 k/cumm (4.4-10.8)
[2019-03-10] MEDS: Normal Saline Flush 10 ML SYR IVP (08:25)
[2019-03-10 08:40] LABS: Absolute Basophil Count 0.05 k/cumm (0.0-0.2); Absolute Lymphocyte Count 0.82 k/cumm (1.2-3.4); Absolute Monocyte Count 0.66 k/cumm (0.11-0.7); Absolute Neutrophil Count 3.78 k/cumm (1.2-6.7); Diff Comment Manual Differential; RBC Morphology Normal
[2019-03-10 08:41] LABS: ALT 28 U/L (16-63); AST 20 U/L (15-37); Alkaline Phosphatase 55 U/L (46-116); Anion Gap 6.6 mmol/L (3-11); BUN 10 mg/dL (7-18); Bilirubin, Total 0.4 mg/dL (0.2-1.0); CO2 32.4 mmol/L (21.0-32.0); Calcium 8.1 mg/dL (8.5-10.1); Chloride 103 mmol/L (98-107); Glucose 90 mg/dL (70-100); Potassium 4.1 mmol/L (3.5-5.1); Sodium 142 mmol/L (136-145); Total Protein 6.5 g/dL (6.4-8.2)
[2019-03-10] MEDS: Omnipaque 350 MG/ML 100 ML BTL IJ (09:10)
--- NOTE | 2019-03-10 10:04 | DI.VRAD_ITS ---
PROCEDURE INFORMATION: Exam: CT Abdomen And Pelvis With Contrast Exam date and time: 03/10/2019 9:10 AM Clinical history: 63 years old, male; Abdominal pain; Patient HX: Distention TECHNIQUE: Imaging protocol: Computed tomography of the abdomen and pelvis with intravenous contrast. COMPARISON: CT ABDOMEN PELVIS W 12/02/2018 4:12 PM FINDINGS: Liver: Normal. No mass. Gallbladder and bile ducts: Normal. No calcified stones. No ductal dilation. Pancreas: Normal. No ductal dilation. Spleen: Normal. No splenomegaly. Adrenals: Normal. No mass. Kidneys and ureters: Normal. No hydronephrosis. Stomach and bowel: Unremarkable. No obstruction. No mucosal thickening. Appendix: No evidence of appendicitis. Intraperitoneal space: Unremarkable. No free air. No significant fluid collection. Vasculature: Unremarkable. No abdominal aortic aneurysm. Lymph nodes: Unremarkable. No enlarged lymph nodes. Bladder: Unremarkable as visualized. Reproductive: Unremarkable as visualized. Bones/joints: Degenerative changes lower lumbar spine, with severe disc space narrowing at L4-5. No acute fracture. Soft tissues: Unremarkable. IMPRESSION: No acute findings. Dictated and Authenticated by: Jyotsna Arriola MD. Ordering:ANGELINA Dominguez MD
[2019-03-10] MEDS: Simethicone 80 MG CHEW 160 MG PO (11:00)
[2019-03-10 11:10] VITALS: BP 137/84; PULSE 75; RESP 16; TEMP 36.7; O2SAT 98
== END 2019-03-10 11:15 | disposition home or self-care (01) ==
PROVIDERS: Emergency Provider Physician Assistant; PCP Internal Medicine
DX: K59.00 Constipation, unspecified (principal)
CPT/HCPCS: 80053; 96360; 96361; 99285; 74177; 81003; 85025; 99284; J3490

== ENCOUNTER 2019-03-22 07:21 | Emergency (ER) | payer MEDICARE, MEDICAID, SELFPAY ==
[2019-03-22 07:22] VITALS: BP 151/92; PULSE 90; RESP 18; TEMP 36.3; O2SAT 95
[2019-03-22] MEDS: Cephalexin 500 MG CAP (07:58)
--- NOTE | 2019-03-22 08:10 | DI.RAD_ITS ---
EXAM: XR ABD FLAT UPRIGHT PA CHEST INDICATION: abd pain, constipation. COMPARISON: XR CHEST 2V PA LATERAL from 02/09/2019 CT ABDOMEN PELVIS W from 03/10/2019 TECHNIQUE: 2D digital imaging was performed. FINDINGS: There has been no change in the right upper lobe mass. The heart size remains normal. No new infilt rate, effusion or pulmonary edema is seen. No free air is identified. There is gas scattered in the small and large bowel without evidence of obstruction. Degenerative changes and scoliosis are note d in the spine. IMPRESSION: No acute abnormality.
--- NOTE | 2019-03-22 08:14 | W.ED.GENAD ---
Discharge Plan Disposition Patient Disposition: HOME Condition: Improving Discharge Details Chief Complaint: Abd Prob Clinical Impression: Adjustment disorder with anxiety, Abdominal pain Primary Care Provider: Deborah Chow ED Provider: Dontrell Rudolph Home Meds and New Rx's Prescriptions: Continued Spiriva with HandiHaler 18 mcg capsule, w/inhalation device 1 cap Inhalation DAILY Qty: 90 RF: 0 mirtazapine 15 mg tablet 15 mg PO HS Qty: 30 RF: 1 albuterol sulfate [ProAir HFA] 90 mcg/actuation HFA aerosol inhaler 2 puff Inhalation Q4H PRN PRN (Reason: Shortness Of Breath) Qty: 1 RF: 5 polyethylene glycol 3350 [Miralax] 17 gram/dose powder 17 gm PO DAILY PRN (Reason: constipation) Qty: 850 RF: 12 bisacodyl 10 mg suppository 10 mg GA DAILY PRN (Reason: constipation) Qty: 8 RF: 0 fluoxetine 20 mg tablet 20 mg PO DAILY Qty: 90 RF: 3 clonazepam [Klonopin] 0.5 mg tablet 0.5 mg PO BID PRNRF: 0 apixaban 5 mg (74 tabs) tablets,dose pack See Rx Instructions PO PER PKG DIR Qty: 74 RF: 3 sennosides-docusate sodium [Senna-Time S] 8.6-50 mg tablet 1 tab PO BID Qty: 60 RF: 1 peg 3350-electrolytes [Golytely] 236-22.74-6.74 -5.86 gram recon soln See Rx Instructions PO .COMPLEX Qty: 4000 RF: 2 cholecalciferol (vitamin D3) 1,000 unit capsule 1,000 unit PO DAILY Qty: 90 RF: 3 calcium carbonate 500 mg calcium (1,250 mg) tablet 500 mg PO BID Qty: 180 RF: 3 hydroxyzine HCl 25 mg tablet 25 mg PO BID PRN (Reason: anxiety) Qty: 180 RF: 2 pantoprazole 40 mg tablet,delayed release (DR/EC) 40 mg PO DAILY Qty: 90 RF: 3 prednisone 5 mg tablet 5 mg PO DAILY RF: 0 (DME) [employer] Advantage 1 EACH spacer 1 ea Miscellaneous DIRECTED RF: 0 albuterol sulfate 2.5 MG/3 ML solution for nebulization 2.5 mg Inhalation Q4H PRN PRN (Reason: Shortness Of Breath) 30 Days RF: 0 docusate sodium [Colace] 100 mg capsule 200 mg PO QHS PRN (Reason: constipation) Qty: 6 RF: 0 Symbicort 10.2 GM HFA aerosol inhaler 10.2 gm Inhalation BID Qty: 3 RF: 3 ondansetron 4 mg tablet,disintegrating 4 mg PO TID-QID PRN (Reason: nausea and vomiting) Qty: 30 RF: 0 Discharge Instructions Instructions: Abdominal Pain (ED) Additional Instructions: Please continue to take your daily prescribed medications and follow-up with your primary care provider as needed for any further reassessment. You may continue to take acetaminophen/Tylenol just take as directed on packaging for any further discomfort. Slowly advance your diet as tolerated and stay well-hydrated. Referrals: Deborah Chow MD [Primary Care Provider] - (As needed for follow-up) Discharge Data Discharge Date/Time-TO BE ENTERED AT DEPARTURE: 03/22/19 10:44 Medical Decision Making Patient presenting to the emergency department via EMS for chief complaint of abdominal pain, nausea vomiting. Patient reports that he has had colicky abdominal pain over the past month. He does state new medications that have caused him to gain some weight. He states overall he has been feeling better but this morning he was woke up out of sleep with significant abdominal pain and discomfort. He does state that he vomited 3 times and is been constipated for the last 3 days.. Patient states ongoing shortness of breath which is not changed. Physical exam shows a distended abdomen with normal active bowel sounds throughout all quadrants, soft abdomen with mild left lower quadrant tenderness that is nonfocal otherwise benign exam. Patient does have clear lung sounds and is in no respiratory distress. Patient has significant severe anxiety disorder which I seen patient for in the past. EMS did report that patient's parents are out of town which does seem to increase his anxiety. Patient denies any specific anxiety symptoms which is not uncommon for him. Given that patient has not been here recently plan to check labs and plain film imaging of the abdomen. Patient given Zofran pending results Review of labs show a mild anemia which is fairly unchanged from previous ones otherwise no leukocytosis otherwise unremarkable CBC, CMP shows slightly low calcium low AST ALT and within normal limits lipase. Labs otherwise nondiagnostic. Review of abdominal flat and upright along with chest showed no acute abnormalities noted by radiologist which I also agree with this. Patient reassessed and stated mild headache which she was given acetaminophen for but otherwise he states his abdominal pain feels better. Patient was able to tolerate p.o. intake of юлия veronica with no further nausea or vomiting reported by patient. I did contact care management given that patient's family is out of town for the next week and this seems to significantly increase patient's anxiety which I feel is the primary cause of patient's visit today as this is been very consistent with past emergency visits with benign work-up. Spoke with care management who reached out to community resources that patient has involved and is waiting to hear back from them but states that patient not does not need to further wait in the emergency department. After discussion of diagnosis and plan of care patient has no further needs, questions, or concerns and states clear understanding to return to the emergency department for any worsening symptoms. HPI General Mode of arrival: EMS. Date/Time Provider Initiated Documentation: 03/22/19 07:49. Limitations to Documentation: no limitations. Information obtained by: patient, EMS and RN notes reviewed. History of Present Illness 63 year old M presents to the emergency department with the chief complaint of Abdominal pain, described as moderate and similar to prior episodes, with intensity rated at 8. Quality is described as aching and sharp, and is localized to the abdomen. Patient started experiencing this month(s) (1) and it has been intermittent and colicky. No relieving factors improve symptom(s), Patient notes shortness of breath. Patient did receive the following treatments prior to arrival, none Related Data Home Medications Medication Instructions Recorded Confirmed [facility] Advantage kit 10/15/17 03/22/19 albuterol sulfate 2.5 mg INHALATION Q4H PRN PRN 30 10/15/17 03/22/19 Days ml Symbicort 10.2 gm INHALATION BID #3 inhaler 09/21/18 03/22/19 tiotropium bromide 18 mcg capsule 1 cap INHALATION DAILY #90 inh 09/26/18 03/22/19 with inhalation device fluoxetine 20 mg tablet 20 mg PO DAILY #90 tab-cap 10/02/18 03/22/19 ondansetron 4 mg PO TID-QID PRN #30 tab 11/12/18 03/22/19 docusate sodium [Colace] 200 mg PO QHS PRN #6 cap 11/29/18 03/22/19 mirtazapine 15 mg tablet 15 mg PO HS #30 tab 12/12/18 03/22/19 clonazepam 0.5 mg tablet 0.5 mg PO BID PRN 12/19/18 03/22/19 apixaban 5 mg (74 tabs) tablets in See Rx Instructions PO PER PKG DIR 12/20/18 03/22/19 a dose pack #74 dose pk albuterol sulfate 90 mcg/actuation 2 puff INHALATION Q4H PRN PRN #1 01/03/19 03/22/19 aerosol inhaler inh sennosides 8.6 mg-docusate sodium 1 tab PO BID #60 tab 01/08/19 03/22/19 50 mg tablet polyethylene glycol 3350 17 17 gm PO DAILY PRN #850 gm 01/11/19 03/22/19 gram/dose oral powder peg 3350-electrolytes 236 See Rx Instructions PO .COMPLEX 01/22/19 03/22/19 gram-22.74 gram-6.74 gram-5.86 #4000 ml gram solution bisacodyl 10 mg rectal suppository 10 mg GA DAILY PRN #8 each 01/30/19 03/22/19 pantoprazole 40 mg tablet,delayed 40 mg PO DAILY #90 tab 02/08/19 03/22/19 release calcium carbonate 500 mg calcium 500 mg PO BID #180 tab 02/19/19 03/22/19 (1,250 mg) tablet cholecalciferol (vitamin D3) 1,000 1,000 unit PO DAILY #90 cap 02/19/19 03/22/19 unit capsule hydroxyzine HCl 25 mg tablet 25 mg PO BID PRN #180 tab 02/20/19 03/22/19 prednisone 5 mg tablet 5 mg PO DAILY 03/14/19 03/22/19 Previous Rx's Medication Instructions Recorded [employer] Advantage kit 10/15/17 albuterol sulfate 2.5 mg INHALATION Q4H PRN PRN 30 10/15/17 Days ml Symbicort 10.2 gm INHALATION BID #3 inhaler 09/21/18 tiotropium bromide 18 mcg capsule 1 cap INHALATION DAILY #90 inh 09/26/18 with inhalation device fluoxetine 20 mg tablet 20 mg PO DAILY #90 tab-cap 10/02/18 ondansetron 4 mg PO TID-QID PRN #30 tab 11/12/18 docusate sodium [Colace] 200 mg PO QHS PRN #6 cap 11/29/18 mirtazapine 15 mg tablet 15 mg PO HS #30 tab 12/12/18 apixaban 5 mg (74 tabs) tablets in See Rx Instructions PO PER PKG DIR 12/20/18 a dose pack #74 dose pk albuterol sulfate 90 mcg/actuation 2 puff INHALATION Q4H PRN PRN #1 01/03/19 aerosol inhaler inh sennosides 8.6 mg-docusate sodium 1 tab PO BID #60 tab 01/08/19 50 mg tablet polyethylene glycol 3350 17 17 gm PO DAILY PRN #850 gm 01/11/19 gram/dose oral powder peg 3350-electrolytes 236 See Rx Instructions PO .COMPLEX 01/22/19 gram-22.74 gram-6.74 gram-5.86 #4000 ml gram solution bisacodyl 10 mg rectal suppository 10 mg GA DAILY PRN #8 each 01/30/19 pantoprazole 40 mg tablet,delayed 40 mg PO DAILY #90 tab 02/08/19 release calcium carbonate 500 mg calcium 500 mg PO BID #180 tab 02/19/19 (1,250 mg) tablet cholecalciferol (vitamin D3) 1,000 1,000 unit PO DAILY #90 cap 02/19/19 unit capsule hydroxyzine HCl 25 mg tablet 25 mg PO BID PRN #180 tab 02/20/19 Allergies Allergy/AdvReac Type Severity Reaction Status Date / Time No Known Allergies Allergy Verified 03/22/19 07:26 General Stated Complaint: Abd Prob FLASH: 3 Review of Systems Constitutional Constitutional: Denies chills, Denies fever(s) and Reports poor appetite Cardiovascular Cardiovascular: Denies chest pain and Denies dyspnea Respiratory Respiratory: Denies cough, Denies dyspnea and Reports other (Ongoing shortness of breath) Gastrointestinal Gastrointestinal: Reports as per HPI, Reports abdominal pain, Denies melena, Denies change in bowel habits, Reports constipation, Denies diarrhea, Reports nausea and Reports vomiting Genitourinary Genitourinary: Denies hematuria and Denies dysuria Integumentary/Breasts Skin/Breast: Denies rash [facility] Medical History Adjustment disorder with anxiety (Chronic) Alcohol abuse (Chronic) Anxiety (Chronic) COPD (chronic obstructive pulmonary disease) (Chronic) Dyspepsia (Chronic) Malignant neoplasm of right lung (Chronic) Tubular adenoma of colon (Inactive) Surgical History colonoscopy (Inactive 01/19/15) Also had a decompress colonoscopy with Dr Haresh Vásquez at [facility] on 06/09/18 for significant colon distention seen on CT scan, no prep done,therapeutic, diagnositc, still due for repeat on 01/19/25 History of lung biopsy (Resolved) History of surgery on upper extremity (Resolved) left Status post cataract extraction and insertion of intraocular lens of left eye (Chronic 11/05/18) Family History Father Essential hypertension Hyperlipidemia Paternal Uncle Heart disease Stroke Cerebral hemorrhage Hypertension Brother Cancer head and neck cancer - smoker Social History Smoking/Tobacco Use Status: Former Tobacco Use Quit Date: 06/05/98 Tobacco: How many years used: 30 Smokeless tobacco user: chewing tobacco Quit status: not considering quitting Alcohol Intake: former Drug use: Never Substance use type: does not use Details: Adopted: No Foster care: No Household members: other 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/12 Housing: other Details: Care Bed at this time Number of Children: 0 Communication Needs: None Do you need help understanding health information?: Often current occupation: not working Current gender identity: male How often do you talk on the phone with friends or family?: three or more times per week Panel score (0-1 are the most socially isolated patients): 1 What type of physical activity do you participate in: none and other Details: started lifting weights Frequency: daily Seatbelt use: always Drive intox or ride w/intox driver recruiter: No Water heater temp set <120 deg: Yes Working smoke detector in home: Yes Fire extinguisher in home: Yes Carbon monox detector in home: Yes Firearms in home: Yes Do you feel safe at home: Yes Do you feel safe in your relationship?: Yes Additional Social history: lives with parents. Exam Const General: cooperative Orientation: alert, awake and oriented x3 Resp Effort & Inspection: normal respiratory effort and able to speak in complete sentences Auscultation: clear to auscultation bilaterally Cardio Rate: regular rate Rhythm: regular rhythm Heart Sounds: S1 normal and S2 normal GI Palpation: soft, no hepatosplenomegaly, not firm, no guarding, no masses, no pulsatile masses, not rigid, no splenomegaly and tender (Mild) in the LLQ; not in the epigastrum, not at McBurney's point, Coates's sign negative, psoas sign negative and Rovsing's sign negative Auscultation: normal bowel sounds Back/Spine/Pelvis Back: no CVA tenderness Neuro General: alert, awake, oriented x3, gait normal and moves all extremities Course Vital Signs Vital signs: Vital Signs Temperature 36.3 C L 03/22/19 07:22 Pulse 90 03/22/19 07:22 Respiratory Rate 18 03/22/19 07:22 Blood Pressure 151/92 H 03/22/19 07:22 Pulse Oximetry 95 03/22/19 07:22 Temperature 36.3 C L 03/22/19 07:22 Temperature Source Temporal Artery Scan 03/22/19 07:22 Pulse 90 03/22/19 07:22 Respiratory Rate 18 03/22/19 07:22 Respiratory Effort 03/22/19 07:27 Blood Pressure 151/92 H 03/22/19 07:22 Pulse Oximetry 95 03/22/19 07:22 Oxygen Delivery Method Room Air 03/22/19 07:22 Oxygen Flow Rate 0 03/22/19 07:22 Pain Level 10 03/22/19 07:27
[2019-03-22] MEDS: Ondansetron O.D.T. 4 MG TABEF PO (08:26)
[2019-03-22 08:36] LABS: Abs Immature Grans 0.05 k/cumm (0.0-0.09); Absolute Basophil Count 0.01 k/cumm (0.0-0.2); Absolute Eosinophil Count 0.05 k/cumm (0.0-0.7); Absolute Lymphocyte Count 0.62 k/cumm (1.2-3.4); Absolute Monocyte Count 0.46 k/cumm (0.11-0.7); Absolute Neutrophil Count 6.52 k/cumm (1.2-6.7); Basophils % 0.1; Eosinophils % 0.6; HCT 40.5 % (40.0-50.0); HGB 13.4 g/dL (13.5-17.5); Immature Grans % 0.6; Mean Corp. HGB Concentration 33.1 g/dL (32.0-36.0); Mean Corpuscular Hemoglobin 31.5 pg (27.0-33.0); Mean Corpuscular Volume 95.1 fL (80-95); Mean Platelet Volume 9.5 fL (8.0-11.0); Neutrophils % 84.7; Platelet Count 231 x1000/uL (130-400); RBC 4.26 m/cumm (4.50-6.00); RBC Distribution Width 12.6 % (11.8-14.1); White Blood Cell Count 7.71 k/cumm (4.4-10.8)
[2019-03-22 08:50] LABS: ALT 15 U/L (16-63); AST 12 U/L (15-37); Albumin 3.1 g/dL (3.4-5.0); Alkaline Phosphatase 62 U/L (46-116); Anion Gap 7.6 mmol/L (3-11); BUN 13 mg/dL (7-18); Bilirubin, Total 0.4 mg/dL (0.2-1.0); CO2 31.4 mmol/L (21.0-32.0); CREATININE 1.14 mg/dL (0.70-1.30); Calcium 8.1 mg/dL (8.5-10.1); Chloride 106 mmol/L (98-107); Glucose 92 mg/dL (70-100); Magnesium 2.4 mg/dL (1.8-2.4); Potassium 3.5 mmol/L (3.5-5.1); Sodium 145 mmol/L (136-145); Total Protein 6.8 g/dL (6.4-8.2)
[2019-03-22 08:57] LABS: Lipase 248 U/L (73-393)
[2019-03-22 09:01] VITALS: BP 131/89; PULSE 73; RESP 18; O2SAT 97
[2019-03-22] MEDS: Acetaminophen 500 MG TAB 1000 MG PO (09:27)
[2019-03-22 10:37] VITALS: BP 136/80; PULSE 68; TEMP 36.5; O2SAT 98
== END 2019-03-22 10:44 | disposition home or self-care (01) ==
PROVIDERS: Emergency Provider Nurse Practitioner Family; PCP Internal Medicine
DX: F43.22 Adjustment disorder with anxiety (principal); R10.9 Unspecified abdominal pain; J44.9 Chronic obstructive pulmonary disease, unspecified; Z87.891 Personal history of nicotine dependence
CPT/HCPCS: 80053; 83690; 99284; 74022; 83735; 85025

== ENCOUNTER 2019-04-01 07:01 | Emergency (ER) | payer MEDICARE, MEDICAID, SELFPAY ==
--- NOTE | 2019-04-01 07:01 | ED.GENADUL_ITS ---
Discharge Plan Disposition Patient Disposition: HOME Condition: Stable Discharge Details Chief Complaint: Abd Prob Clinical Impression: Abdominal pain, Lung mass Primary Care Provider: Deborah Chow ED Provider: Radha Lizarraga Home Meds and New Rx's Prescriptions: Continued Spiriva with HandiHaler 18 mcg capsule, w/inhalation device 1 cap Inhalation DAILY Qty: 90 RF: 0 mirtazapine 15 mg tablet 15 mg PO HS Qty: 30 RF: 1 albuterol sulfate [ProAir HFA] 90 mcg/actuation HFA aerosol inhaler 2 puff Inhalation Q4H PRN PRN (Reason: Shortness Of Breath) Qty: 1 RF: 5 polyethylene glycol 3350 [Miralax] 17 gram/dose powder 17 gm PO DAILY PRN (Reason: constipation) Qty: 850 RF: 12 bisacodyl 10 mg suppository 10 mg OR DAILY PRN (Reason: constipation) Qty: 8 RF: 0 fluoxetine 20 mg tablet 20 mg PO DAILY Qty: 90 RF: 3 clonazepam [Klonopin] 0.5 mg tablet 0.5 mg PO BID PRNRF: 0 apixaban 5 mg (74 tabs) tablets,dose pack See Rx Instructions PO PER PKG DIR Qty: 74 RF: 3 sennosides-docusate sodium [Senna-Time S] 8.6-50 mg tablet 1 tab PO BID Qty: 60 RF: 1 peg 3350-electrolytes [Golytely] 236-22.74-6.74 -5.86 gram recon soln See Rx Instructions PO .COMPLEX Qty: 4000 RF: 2 cholecalciferol (vitamin D3) 1,000 unit capsule 1,000 unit PO DAILY Qty: 90 RF: 3 calcium carbonate 500 mg calcium (1,250 mg) tablet 500 mg PO BID Qty: 180 RF: 3 hydroxyzine HCl 25 mg tablet 25 mg PO BID PRN (Reason: anxiety) Qty: 180 RF: 2 pantoprazole 40 mg tablet,delayed release (DR/EC) 40 mg PO DAILY Qty: 90 RF: 3 prednisone 5 mg tablet 5 mg PO DAILY RF: 0 (DME) [employer] Advantage 1 EACH spacer 1 ea Miscellaneous DIRECTED RF: 0 albuterol sulfate 2.5 MG/3 ML solution for nebulization 2.5 mg Inhalation Q4H PRN PRN (Reason: Shortness Of Breath) 30 Days RF: 0 docusate sodium [Colace] 100 mg capsule 200 mg PO QHS PRN (Reason: constipation) Qty: 6 RF: 0 Symbicort 10.2 GM HFA aerosol inhaler 10.2 gm Inhalation BID Qty: 3 RF: 3 ondansetron 4 mg tablet,disintegrating 4 mg PO TID-QID PRN (Reason: nausea and vomiting) Qty: 30 RF: 0 Discharge Instructions Instructions: Abdominal Pain (ED) Additional Instructions: Please return immediately to the emergency department if you develop any new or worsening symptoms or if you become otherwise concerned. It is extremely important that you call as soon as possible to make an appointment to be seen by her oncologist, and that you attend your scheduled appointment in 2 days with your primary care doctor. Referrals: Deborah Chow MD [Primary Care Provider] - Discharge Data Discharge Date/Time-TO BE ENTERED AT DEPARTURE: 04/01/19 12:20 Medical Decision Making <Pedro Nichole DO - Last Filed: 04/01/19 07:21> This is a 63-year-old male who is well-known to the emergency department with a past medical history of alcoholism, chronic recurrent noncardiac chest pain, chronic epigastric pain, COPD, notable anxiety, previous lung cancer who presents today for evaluation of abdominal pain. The patient states over the last month or 2 he has had his mild chronic abdominal pain gradually worsening. He describes it as epigastric in nature. States that it is worse than normal. He is actually had significant weight gain as of late. He states that he has not had any bowel movements whatsoever over the last 4 days. He denies any vomiting but does admit to notable nausea. He denies any other complaints. He does admit to some mild chronic shortness of breath which is unchanged. He denies any chest symptoms. Physical exam demonstrates minimally distended abdomen, mild epigastric tenderness. Rectal exam demonstrates no significant stool in the rectal vault. Differential includes constipation, or atypical abnormality in the abdomen linked to his chronic lung cancer. We will get a CT scan of the abdomen for further assessment, give the patient an enema, evaluate for unlikely cardiac etiology and reassess. Case will be signed out to my colleague Dr. Lenka Lizarraga for final disposition and management after evaluation of labs and imaging. EKG 7: 10 Rate 72, intervals normal, sinus rhythm, no significant ST elevation or depression, no significant T wave inversions. No evidence of STEMI <Radha Lizarraga MD - Last Filed: 04/03/19 11:32> Iggy Urias is a 63 y/o man who presented with abd pain who was signed out to me by Dr. Nichole at time of shift change with CT abdomen/pelvis and labs pending. Patient underwent enema, per nursing very little stool was returned. I was notified by radiology the patient is currently scheduled for outpatient CT chest with contrast this afternoon. In order to minimize radiation and contrast burden, plan to combine CT chest/abdomen/pelvis during this ED visit. Per radiology over the phone: CT abdomen/pelvis negative for acute process, CT chest shows lung mass somewhat increased in size from previous imaging. I rel ayed imaging results to the patient. On reassessment he reports that he feels very well and is ready to go home. He denies any current pain. I had a lengthy discussion with the patient regarding return to emergency department precautions including red flags for which to return, home care, importance of outpatient follow-up with his primary care doctor and also with his oncologist. Patient verbalized understanding of the plan was amenable. All questions were answered. Patient was discharged home with clear plan for outpatient follow-up. Medical Records Medical records reviewed: Yes I reviewed the patient's medical records. Lab Data Lab results reviewed: Yes I reviewed the patient's lab results. HPI <Pedro Nichole DO - Last Filed: 04/01/19 07:21> General Date/Time Provider Initiated Documentation: 04/01/19 07:07 . HPI Narrative: This is a 63-year-old male who is well-known to the emergency department with a past medical history of alcoholism, chronic recurrent noncardiac chest pain, chronic epigastric pain, COPD, notable anxiety, previous lung cancer who presents today for evaluation of abdominal pain. The patient states over the last month or 2 he has had his mild chronic abdominal pain gradually worsening. He describes it as epigastric in nature. States that it is worse than normal. He is actually had significant weight gain as of late. He states that he has not had any bowel movements whatsoever over the last 4 days. He denies any vomiting but does admit to notable nausea. He denies any burning sensation, chest pain, chest tightness, chest heaviness, bandlike sensation around his chest. He does admit to some mild chronic shortness of breath which she states is unchanged and at his baseline. He denies any other complaints at this time. No other modifying factors. He denies any hematemesis, hematochezia, melena, acholic stool. Related Data Home Medications Medication Instructions Recorded [facility]irmed [facility] 10/15/17 03/22/19 albuterol sulfate 2.5 mg INHALATION Q4H PRN PRN 30 10/15/17 04/01/19 Days ml Symbicort 10.2 gm INHALATION BID #3 inhaler 09/21/18 03/22/19 tiotropium bromide 18 mcg capsule 1 cap INHALATION DAILY #90 inh 09/26/18 04/01/19 with inhalation device fluoxetine 20 mg tablet 20 mg PO DAILY #90 tab-cap 10/02/18 04/01/19 ondansetron 4 mg PO TID-QID PRN #30 tab 11/12/18 04/01/19 docusate sodium [Colace] 200 mg PO QHS PRN #6 cap 11/29/18 04/01/19 mirtazapine 15 mg tablet 15 mg PO HS #30 tab 12/12/18 04/01/19 clonazepam 0.5 mg tablet 0.5 mg PO BID PRN 12/19/18 04/01/19 apixaban 5 mg (74 tabs) tablets in See Rx Instructions PO PER PKG DIR 12/20/18 04/01/19 a dose pack #74 dose pk albuterol sulfate 90 mcg/actuation 2 puff INHALATION Q4H PRN PRN #1 01/03/19 04/01/19 aerosol inhaler inh sennosides 8.6 mg-docusate sodium 1 tab PO BID #60 tab 01/08/19 04/01/19 50 mg tablet polyethylene glycol 3350 17 17 gm PO DAILY PRN #850 gm 01/11/19 04/01/19 gram/dose oral powder peg 3350-electrolytes 236 See Rx Instructions PO .COMPLEX 01/22/19 04/01/19 gram-22.74 gram-6.74 gram-5.86 #4000 ml gram solution bisacodyl 10 mg rectal suppository 10 mg OR DAILY PRN #8 each 01/30/19 04/01/19 pantoprazole 40 mg tablet,delayed 40 mg PO DAILY #90 tab 02/08/19 04/01/19 release calcium carbonate 500 mg calcium 500 mg PO BID #180 tab 02/19/19 04/01/19 (1,250 mg) tablet cholecalciferol (vitamin D3) 1,000 1,000 unit PO DAILY #90 cap 02/19/19 04/01/19 unit capsule hydroxyzine HCl 25 mg tablet 25 mg PO BID PRN #180 tab 02/20/19 04/01/19 prednisone 5 mg tablet 5 mg PO DAILY 03/14/19 04/01/19 Previous Rx's Medication Instructions Recorded [facility] kit 10/15/17 albuterol sulfate 2.5 mg INHALATION Q4H PRN PRN 30 10/15/17 Days ml Symbicort 10.2 gm INHALATION BID #3 inhaler 09/21/18 tiotropium bromide 18 mcg capsule 1 cap INHALATION DAILY #90 inh 09/26/18 with inhalation device fluoxetine 20 mg tablet 20 mg PO DAILY #90 tab-cap 10/02/18 ondansetron 4 mg PO TID-QID PRN #30 tab 11/12/18 docusate sodium [Colace] 200 mg PO QHS PRN #6 cap 11/29/18 mirtazapine 15 mg tablet 15 mg PO HS #30 tab 12/12/18 apixaban 5 mg (74 tabs) tablets in See Rx Instructions PO PER PKG DIR 12/20/18 a dose pack #74 dose pk albuterol sulfate 90 mcg/actuation 2 puff INHALATION Q4H PRN PRN #1 01/03/19 aerosol inhaler inh sennosides 8.6 mg-docusate sodium 1 tab PO BID #60 tab 01/08/19 50 mg tablet polyethylene glycol 3350 17 17 gm PO DAILY PRN #850 gm 01/11/19 gram/dose oral powder peg 3350-electrolytes 236 See Rx Instructions PO .COMPLEX 01/22/19 gram-22.74 gram-6.74 gram-5.86 #4000 ml gram solution bisacodyl 10 mg rectal suppository 10 mg OR DAILY PRN #8 each 01/30/19 pantoprazole 40 mg tablet,delayed 40 mg PO DAILY #90 tab 02/08/19 release calcium carbonate 500 mg calcium 500 mg PO BID #180 tab 02/19/19 (1,250 mg) tablet cholecalciferol (vitamin D3) 1,000 1,000 unit PO DAILY #90 cap 02/19/19 unit capsule hydroxyzine HCl 25 mg tablet 25 mg PO BID PRN #180 tab 02/20/19 Allergies Allergy/AdvReac Type Severity Reaction Status Date / Time No Known Allergies Allergy Verified 04/01/19 07:08 General FLASH: 3 Review of Systems <Pedro Nichole DO - Last Filed: 04/01/19 07:21> All systems reviewed & are unremarkable except as noted in HPI and below PFSH <Pedro Nichole DO - Last Filed: 04/01/19 07:21> Social History Smoking/Tobacco Use Status: Former Tobacco Use Quit Date: 06/05/98 Tobacco: How many years used: 30 Smokeless tobacco user: chewing tobacco Quit status: not considering quitting Alcohol Intake: former Drug use: Never Substance use type: does not use Details: Adopted: No Foster care: No Household members: other 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 Housing: other Details: Care Bed at this time Number of Children: 0 Communication Needs: None Do you need help understanding health information?: Often current occupation: not working Current gender identity: male How often do you talk on the phone with friends or family?: three or more times per week Panel score (0-1 are the most socially isolated patients): 1 What type of physical activity do you participate in: none and other Details: started lifting weights Frequency: daily Seatbelt use: always Drive intox or ride w/intox transportation 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 Exam <Pedro Nichole DO - Last Filed: 04/01/19 07:21> Narrative Exam Narrative: 1.Const: Well-nourished, Well-developed, appearing stated age 2.Eyes: PERRL, no conjunctival injection, and symmetrical lids. 3.ENT: Atraumatic external nose and ears. Moist MM. Neck: Symmetric, trachea midline, No thyromegaly. 4.CVS: +S1/S2, No murmurs or gallops. Peripheral pulses 2+ and equal in all extremities. Brisk capillary refill in all extremities. 5.RESP: Unlabored respiratory effort. Clear to auscultation bilaterally. No wheezes rales or rhonchi 6.GI: Soft, mildly distended, generalized pain throughout, primarily in the epigastric region. Bowel sounds are present. Rectal exam demonstrates no significant stool in the rectal vault. No hematochezia or melena. 7.MSK: Normocephalic/Atraumatic, Extremities w/o deformity or ttp No cyanosis or clubbing, Normal movement of all extremities 8.Skin: Warm, Dry. No rashes or lesions. 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 Sensation grossly intact, no focal neurologic deficits. 10.Psych: (AAO) x3. Appropriate mood and affect Sign Out <Pedro Nichole DO - Last Filed: 04/01/19 07:21> Sign Out Data: Sign Out Comment: Pending imaging and labs. Abdominal pain. Giving enema. Last updated by Pedro Nichole DO at 04/01/19 07:22
[2019-04-01 07:03] VITALS: BP 146/110; PULSE 86; RESP 16; TEMP 36.6; O2SAT 94
[2019-04-01 07:18] VITALS: PULSE 72; RESP 11; O2SAT 98
[2019-04-01 07:20] VITALS: PULSE 72; RESP 16; O2SAT 98
[2019-04-01 07:29] LABS: Abs Immature Grans 0.12 k/cumm (0.0-0.09); Absolute Basophil Count 0.02 k/cumm (0.0-0.2); Absolute Eosinophil Count 0.08 k/cumm (0.0-0.7); Absolute Neutrophil Count 2.81 k/cumm (1.2-6.7); Basophils % 0.4; Eosinophils % 1.7; HCT 42.8 % (40.0-50.0); HGB 14.3 g/dL (13.5-17.5); Immature Grans % 2.5; Lymphocytes % 25.4; Mean Corp. HGB Concentration 33.4 g/dL (32.0-36.0); Mean Corpuscular Hemoglobin 31.6 pg (27.0-33.0); Mean Corpuscular Volume 94.7 fL (80-95); Mean Platelet Volume 9.1 fL (8.0-11.0); Monocytes % 10.6; Neutrophils % 59.4; Platelet Count 276 x1000/uL (130-400); RBC 4.52 m/cumm (4.50-6.00); RBC Distribution Width 12.5 % (11.8-14.1); White Blood Cell Count 4.73 k/cumm (4.4-10.8)
[2019-04-01] MEDS: Normal Saline 500 ML IV (07:30)
[2019-04-01 07:47] LABS: ALT 28 U/L (16-63); AST 19 U/L (15-37); Albumin 3.3 g/dL (3.4-5.0); Alkaline Phosphatase 59 U/L (46-116); Anion Gap 6.6 mmol/L (3-11); BUN 11 mg/dL (7-18); Bilirubin, Total 0.5 mg/dL (0.2-1.0); CO2 30.4 mmol/L (21.0-32.0); CREATININE 1.29 mg/dL (0.70-1.30); Calcium 8.5 mg/dL (8.5-10.1); Chloride 104 mmol/L (98-107); Estimated GFR 56.07 (mL/min/1.73m2); Glucose 92 mg/dL (70-100); Lipase 243 U/L (73-393); Potassium 3.8 mmol/L (3.5-5.1); Sodium 141 mmol/L (136-145); Total Protein 6.9 g/dL (6.4-8.2); Troponin I < 0.05 ng/mL (0.00-0.06)
--- NOTE | 2019-04-01 08:24 | DI.CT_ITS ---
EXAM: CT CHEST/ABD/PEL W CLINICAL HISTORY: abd pain, scheduled for outpt CT chest today. TECHNIQUE: Imaging Protocol: Axial computed tomography images with coronal and sagittal reformatted images were created and reviewed CONTRAST MATERIAL: Intravenous: Omnipaque 350 Contrast volume:100 cc's Contrast route:IV - Oral: Yes COMPARISON: CT ABDOMEN PELVIS W from 09/05/2018 CT ABDOMEN PELVIS W from 09/05/2018 CT CHEST/ABD W from 12/19/2018 CT ABDOMEN PELVIS W from 03/10/2019 FINDINGS: The liver is normal in size. There are stable tiny hypodensities in the liver. They are too small f or further characterization. They likely reflect small cysts. No suspicious hepatic mass is seen. The portal, superior mesenteric, and splenic veins are patent. The gallbladder is unremarkable. The re is no biliary ductal dilatation. The spleen and pancreas are unremarkable. The adrenal glands ar e unremarkable. The kidneys show normal and symmetric enhancement. A stable cyst on the right kidne y. No suspicious renal mass, calculus or obstruction is identified. The urinary bladder is intact. The reproductive organs are stable. The bowel is unremarkable. There is a normal appendix present. There is atherosclerosis of the abdominal aorta. No aneurysm is identified. No new or significant abdominal or pelvic adenopathy is present. No abdominal or pelvic ascites or pneumoperitoneum is pr esent. The bones appear osteopenic. No destructive or erosive changes are seen in the bones. There are degenerative changes seen in the spine. There is atherosclerosis in the thoracic aorta. No aneurysmal dilatation or dissection is identified . Heart size appears stable. No pericardial effusion is present. No pleural effusion or pneumothor ax is present. The visualized thyroid gland is unremarkable. No significant thoracic adenopathy is present. No pulmonary emboli are seen in the visualized pulmonary arteries. The right upper lobe ma ss measures 2.6 x 3.7 cm. This compares with 1.8 x 3.2 cm on the prior examination from 12/19/2018. There does appear to be an increase in the surrounding infiltrate. The infiltrate may represent sca rring or metastatic disease. The lungs are otherwise clear. The bones appear osteopenic. No destru ctive lesions are seen in the bones. Degenerative changes are seen in the spine. IMPRESSION: 1. No evidence of an acute abdomen. 2. Interval increase in size of right upper lobe pulmonary mass. Interval increase in the surroundin g infiltrate. This may represent scarring, atelectasis, pneumonia or metastatic disease. 3. The findings were discussed with the emergency department on the date of the examination. DATA REPOSITORY: All CT scans at this facility are submitted to the National Radiology Data Registry (NRDR) Dose Index Registry (DIR) with the [employer] (A[employer]). RADIATION OPTIMIZATION: All CT scans at this facility use at least one of these dose optimization te chniques: automated exposure control; mA and/or kV adjustment per patient size (includes targeted exa ms where dose is matched to clinical indication); or iterative reconstruction.
[2019-04-01] MEDS: Omnipaque 350 MG/ML 100 ML BTL IJ (09:41)
[2019-04-01 10:00] VITALS: BP 156/88; PULSE 67; RESP 16; TEMP 36.7; O2SAT 100
[2019-04-01 10:01] VITALS: BP 142/91; PULSE 68; O2SAT 98
[2019-04-01 11:37] VITALS: BP 127/90; PULSE 71; RESP 18; TEMP 36.6; O2SAT 97
[2019-04-01 11:59] LABS: Troponin I < 0.05 ng/mL (0.00-0.06)
== END 2019-04-01 12:20 | disposition home or self-care (01) ==
PROVIDERS: Student in an Organized Health Care Education/Training Program; Emergency Provider Student in an Organized Health Care Education/Training Program; PCP Internal Medicine
DX: R10.13 Epigastric pain (principal); G89.29 Other chronic pain; R91.1 Solitary pulmonary nodule
CPT/HCPCS: 36415; 74177; 80053; 83690; 93005; 96360; 99285; 71260; 84484; 85025; 93010; J3490

== ENCOUNTER 2019-04-10 07:02 | Emergency (ER) | payer MEDICARE, MEDICAID, SELFPAY ==
[2019-04-10 07:18] VITALS: BP 133/85; PULSE 68; RESP 16; TEMP 36.7; O2SAT 98
--- NOTE | 2019-04-10 07:21 | W.ED.GENAD ---
Discharge Plan Disposition Patient Disposition: HOME Condition: Good Discharge Details Chief Complaint: Abd Prob Clinical Impression: Constipation Primary Care Provider: Deborah Chow ED Provider: Pedro Nichole Home Meds and New Rx's Prescriptions: No Action Spiriva with HandiHaler 18 mcg capsule, w/inhalation device 1 cap Inhalation DAILY Qty: 90 RF: 0 mirtazapine 15 mg tablet 15 mg PO HS Qty: 30 RF: 1 albuterol sulfate [ProAir HFA] 90 mcg/actuation HFA aerosol inhaler 2 puff Inhalation Q4H PRN PRN (Reason: Shortness Of Breath) Qty: 1 RF: 5 polyethylene glycol 3350 [Miralax] 17 gram/dose powder 17 gm PO DAILY PRN (Reason: constipation) Qty: 850 RF: 12 bisacodyl 10 mg suppository 10 mg OH DAILY PRN (Reason: constipation) Qty: 8 RF: 0 fluoxetine 20 mg tablet 20 mg PO DAILY Qty: 90 RF: 3 clonazepam [Klonopin] 0.5 mg tablet 0.5 mg PO BID PRNRF: 0 peg 3350-electrolytes [Golytely] 236-22.74-6.74 -5.86 gram recon soln See Rx Instructions PO .COMPLEX Qty: 4000 RF: 2 cholecalciferol (vitamin D3) 1,000 unit capsule 1,000 unit PO DAILY Qty: 90 RF: 3 calcium carbonate 500 mg calcium (1,250 mg) tablet 500 mg PO BID Qty: 180 RF: 3 hydroxyzine HCl 25 mg tablet 25 mg PO BID PRN (Reason: anxiety) Qty: 180 RF: 2 pantoprazole 40 mg tablet,delayed release (DR/EC) 40 mg PO DAILY Qty: 90 RF: 3 prednisone 5 mg tablet 5 mg PO DAILY RF: 0 apixaban 5 mg tablet 5 mg PO BID Qty: 180 RF: 0 sennosides-docusate sodium [Senna-Time S] 8.6-50 mg tablet 1 tab PO BID Qty: 60 RF: 1 (DME) [employer] Advantage 1 EACH spacer 1 ea Miscellaneous DIRECTED RF: 0 albuterol sulfate 2.5 MG/3 ML solution for nebulization 2.5 mg Inhalation Q4H PRN PRN (Reason: Shortness Of Breath) 30 Days RF: 0 docusate sodium [Colace] 100 mg capsule 200 mg PO QHS PRN (Reason: constipation) Qty: 6 RF: 0 Symbicort 10.2 GM HFA aerosol inhaler 10.2 gm Inhalation BID Qty: 3 RF: 3 ondansetron 4 mg tablet,disintegrating 4 mg PO TID-QID PRN (Reason: nausea and vomiting) Qty: 30 RF: 0 Discharge Instructions Instructions: Constipation (ED) Additional Instructions: At this time you demonstrate signs and symptoms consistent with constipation. You had a notable work-up performed recently which showed no evidence of cancer or malignancy in your abdomen. You still have notable cancer in your lungs. It is vitally important that you follow-up closely with your primary care provider at your appointment that is scheduled today. Do not miss this appointment. For your constipation you have been given a bottle of magnesium citrate. I would recommend taking this with 5 to 10 cups of water. If you take it, please take early this morning, otherwise take it later today after you visit with your PCP. If you notice any worsening of your symptoms, or any new symptoms such as vomiting, diarrhea, fever, chills, shortness of breath, chest pain, numbness, weakness, or fainting , please return immediately to the emergency department for reevaluation. Please follow up with your primary care provider as soon as possible for reassessment and reevaluation. As always, it was a pleasure participating in your medical care today. Referrals: Deborah Chow MD [Primary Care Provider] - Medical Decision Making This is a 64-year-old male who is well-known to the emergency department with a past medical history of alcoholism, chronic recurrent noncardiac chest pain, chronic epigastric pain, COPD, notable anxiety, lung cancer who presents today for evaluation of constipation. Patient was recently seen and assessed here 1 week ago, where he had a notable work-up, CT of the abdomen pelvis showed no evidence of abnormality in the abdomen, he did have his known lung cancer mass, which does seem to show slight interval increase. Patient states that since he was seen 1 week ago he has not had any bowel movements. He has been taking his Colace per him. He denies any significant abdominal pain. He states that he just feels plugged up. At this time he denies any acute change in his chronic chest pain or shortness of breath. He denies any acute worsening. He has no other complaints at this time. He denies vomiting, diarrhea, melena. He does have an appointment with his primary care provider at 3 PM. Physical exam demonstrates a nontender nondistended abdomen. Bowel sounds are present. He does have minimal bloating. Rectal exam demonstrates no significant stool ball in the rectal vault. Underwear does show evidence of feces. I do not see any benefit from giving an enema at this time. With no significant abdominal pain, normal vital signs, and negative CT scan of the abdomen and pelvis within the last week, with an otherwise lack of change for her symptoms do not feel that any emergent imaging is indicated. We did discuss repeat imaging and he would like to hold off at this time. We will give magnesium citrate for home use as a cleaning regiment, and recommend continued use of his Colace. We discussed with him the importance of close follow-up with his PCP as a scheduled appointment at 3 PM. I have extensively reviewed the treatment plan and discharge instructions with the patient. I have addressed all patient concerns at this time. The patient was made aware of what symptoms to monitor for that would warrant a return to the emergency department. Discussed the plan with the patient, they demonstrate verbal understanding and agreement with our assessment and plan at this time. HPI General Date/Time Provider Initiated Documentation: 04/10/19 07:15. [facility] Narrative: This is a 64-year-old male who is well-known to the emergency department with a past medical history of alcoholism, chronic recurrent noncardiac chest pain, chronic epigastric pain, COPD, notable anxiety, lung cancer who presents today for evaluation of constipation. Patient was recently seen and assessed here 1 week ago, where he had a notable work-up, CT of the abdomen pelvis showed no evidence of abnormality in the abdomen, he did have his known lung cancer mass, which does seem to show slight interval increase. Patient states that since he was seen 1 week ago he has not had any bowel movements. He has been taking his Colace per him. He denies any significant abdominal pain. He states that he just feels plugged up. At this time he denies any acute change in his chronic chest pain or shortness of breath. He denies any acute worsening. He has no other complaints at this time. He denies vomiting, diarrhea, melena. He does have an appointment with his primary care provider at 3 PM. Related Data Home Medications Medication Instructions Recorded [facility] 10/15/17 03/22/19 albuterol sulfate 2.5 mg INHALATION Q4H PRN PRN 30 10/15/17 04/10/19 Days ml Symbicort 10.2 gm INHALATION BID #3 inhaler 09/21/18 04/10/19 tiotropium bromide 18 mcg capsule 1 cap INHALATION DAILY #90 inh 09/26/18 04/10/19 with inhalation device fluoxetine 20 mg tablet 20 mg PO DAILY #90 tab-cap 10/02/18 04/10/19 ondansetron 4 mg PO TID-QID PRN #30 tab 11/12/18 04/10/19 docusate sodium [Colace] 200 mg PO QHS PRN #6 cap 11/29/18 04/10/19 mirtazapine 15 mg tablet 15 mg PO HS #30 tab 12/12/18 04/10/19 clonazepam 0.5 mg tablet 0.5 mg PO BID PRN 12/19/18 04/10/19 albuterol sulfate 90 mcg/actuation 2 puff INHALATION Q4H PRN PRN #1 01/03/19 04/10/19 aerosol inhaler inh polyethylene glycol 3350 17 17 gm PO DAILY PRN #850 gm 01/11/19 04/10/19 gram/dose oral powder peg 3350-electrolytes 236 See Rx Instructions PO .COMPLEX 01/22/19 04/10/19 gram-22.74 gram-6.74 gram-5.86 #4000 ml gram solution bisacodyl 10 mg rectal suppository 10 mg OH DAILY PRN #8 each 01/30/19 04/10/19 pantoprazole 40 mg tablet,delayed 40 mg PO DAILY #90 tab 02/08/19 04/10/19 release calcium carbonate 500 mg calcium 500 mg PO BID #180 tab 02/19/19 04/10/19 (1,250 mg) tablet cholecalciferol (vitamin D3) 1,000 1,000 unit PO DAILY #90 cap 02/19/19 04/10/19 unit capsule hydroxyzine HCl 25 mg tablet 25 mg PO BID PRN #180 tab 02/20/19 04/10/19 prednisone 5 mg tablet 5 mg PO DAILY 03/14/19 04/10/19 apixaban 5 mg tablet 5 mg PO BID #180 tab 04/04/19 04/10/19 sennosides 8.6 mg-docusate sodium 1 tab PO BID #60 tab 04/04/19 04/10/19 50 mg tablet Previous Rx's Medication Instructions Recorded [employer] Advantage kit 10/15/17 albuterol sulfate 2.5 mg INHALATION Q4H PRN PRN 30 10/15/17 Days ml Symbicort 10.2 gm INHALATION BID #3 inhaler 09/21/18 tiotropium bromide 18 mcg capsule 1 cap INHALATION DAILY #90 inh 09/26/18 with inhalation device fluoxetine 20 mg tablet 20 mg PO DAILY #90 tab-cap 10/02/18 ondansetron 4 mg PO TID-QID PRN #30 tab 11/12/18 docusate sodium [Colace] 200 mg PO QHS PRN #6 cap 11/29/18 mirtazapine 15 mg tablet 15 mg PO HS #30 tab 12/12/18 albuterol sulfate 90 mcg/actuation 2 puff INHALATION Q4H PRN PRN #1 01/03/19 aerosol inhaler inh polyethylene glycol 3350 17 17 gm PO DAILY PRN #850 gm 01/11/19 gram/dose oral powder peg 3350-electrolytes 236 See Rx Instructions PO .COMPLEX 01/22/19 gram-22.74 gram-6.74 gram-5.86 #4000 ml gram solution bisacodyl 10 mg rectal suppository 10 mg OH DAILY PRN #8 each 01/30/19 pantoprazole 40 mg tablet,delayed 40 mg PO DAILY #90 tab 02/08/19 release calcium carbonate 500 mg calcium 500 mg PO BID #180 tab 02/19/19 (1,250 mg) tablet cholecalciferol (vitamin D3) 1,000 1,000 unit PO DAILY #90 cap 02/19/19 unit capsule hydroxyzine HCl 25 mg tablet 25 mg PO BID PRN #180 tab 02/20/19 apixaban 5 mg tablet 5 mg PO BID #180 tab 04/04/19 sennosides 8.6 mg-docusate sodium 1 tab PO BID #60 tab 04/04/19 50 mg tablet Allergies Allergy/AdvReac Type Severity Reaction Status Date / Time No Known Allergies Allergy Verified 04/10/19 07:22 General FLASH: 3 Review of Systems All systems reviewed & are unremarkable except as noted in HPI and below PFSH Social History Smoking/Tobacco Use Status: Former Tobacco Use Quit Date: 06/05/98 Tobacco: How many years used: 30 Smokeless tobacco user: chewing tobacco Quit status: not considering quitting Alcohol Intake: former Drug use: Never Substance use type: does not use Details: Adopted: No Foster care: No Household members: other 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/12 Housing: other Details: Care Bed at this time Number of Children: 0 Communication Needs: None Do you need help understanding health information?: Often current occupation: not working Current gender identity: male How often do you talk on the phone with friends or family?: three or more times per week Panel score (0-1 are the most socially isolated patients): 1 What type of physical activity do you participate in: none and other Details: started lifting weights Frequency: daily Seatbelt use: always Drive intox or ride w/intox ambulance 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 Exam Narrative Exam Narrative: 1.Const: Well-nourished, Well-developed, appearing stated age 2.Eyes: PERRL, no conjunctival injection, and symmetrical lids. 3.ENT: Atraumatic external nose and ears. Moist MM. Neck: Symmetric, trachea midline, No thyromegaly. 4.CVS: +S1/S2, No murmurs or gallops. Peripheral pulses 2+ and equal in all extremities. Brisk capillary refill in all extremities. 5.RESP: Unlabored respiratory effort. Clear to auscultation bilaterally. No wheezes rales or rhonchi 6.GI: Soft, nondistended, minimally bloated. No significant pain or tenderness on palpation. No pain at McBurney's point, negative Coates sign. Bowel sounds are present. No flank or CVA tenderness. Rectal exam was performed with female nurse at bedside, no significant stool noted in the rectal vault, however there is evidence of some stool in the underwear. No other abnormalities. 7.MSK: Normocephalic/Atraumatic, Extremities w/o deformity or ttp No cyanosis or clubbing, Normal movement of all extremities 8.Skin: Warm, Dry. No rashes or lesions. 9.Neuro: cathode ray tube salvage processor II-XII grossly intact. Sensation grossly intact, no focal neurologic deficits. 10.Psych: (AAO) x3. Appropriate mood and affect
[2019-04-10] MEDS: Magnesium Citrate 300 ML BTL 150 ML PO (07:31)
== END 2019-04-10 07:34 | disposition home or self-care (01) ==
PROVIDERS: Emergency Provider Student in an Organized Health Care Education/Training Program; PCP Internal Medicine
DX: K59.00 Constipation, unspecified (principal); F41.9 Anxiety disorder, unspecified; J44.9 Chronic obstructive pulmonary disease, unspecified; C34.91 Malignant neoplasm of unspecified part of right bronchus or lung; Z87.891 Personal history of nicotine dependence
CPT/HCPCS: 99283

== ENCOUNTER 2019-04-13 07:07 | Emergency (ER) | payer MEDICARE, MEDICAID, SELFPAY ==
[2019-04-13 07:09] VITALS: BP 134/86; PULSE 86; RESP 20; TEMP 36.6; O2SAT 97
--- NOTE | 2019-04-13 07:15 | ED.GENADUL_ITS ---
Discharge Plan Disposition Patient Disposition: HOME Condition: Good Discharge Details Chief Complaint: Abd Prob Clinical Impression: Constipation Primary Care Provider: Deborah Chow ED Provider: Ean Lyons Home Meds and New Rx's Prescriptions: No Action Spiriva with HandiHaler 18 mcg capsule, w/inhalation device 1 cap Inhalation DAILY Qty: 90 RF: 0 mirtazapine 15 mg tablet 15 mg PO HS Qty: 30 RF: 1 albuterol sulfate [ProAir HFA] 90 mcg/actuation HFA aerosol inhaler 2 puff Inhalation Q4H PRN PRN (Reason: Shortness Of Breath) Qty: 1 RF: 5 polyethylene glycol 3350 [Miralax] 17 gram/dose powder 17 gm PO DAILY PRN (Reason: constipation) Qty: 850 RF: 12 bisacodyl 10 mg suppository 10 mg NV DAILY PRN (Reason: constipation) Qty: 8 RF: 0 lubiprostone 24 mcg capsule 24 mcg PO DAILY Qty: 20 RF: 0 fluoxetine 20 mg tablet 20 mg PO DAILY Qty: 90 RF: 3 clonazepam [Klonopin] 0.5 mg tablet 0.5 mg PO BID PRNRF: 0 peg 3350-electrolytes [Golytely] 236-22.74-6.74 -5.86 gram recon soln See Rx Instructions PO .COMPLEX Qty: 4000 RF: 2 cholecalciferol (vitamin D3) 1,000 unit capsule 1,000 unit PO DAILY Qty: 90 RF: 3 calcium carbonate 500 mg calcium (1,250 mg) tablet 500 mg PO BID Qty: 180 RF: 3 hydroxyzine HCl 25 mg tablet 25 mg PO BID PRN (Reason: anxiety) Qty: 180 RF: 2 pantoprazole 40 mg tablet,delayed release (DR/EC) 40 mg PO DAILY Qty: 90 RF: 3 apixaban 5 mg tablet 5 mg PO BID Qty: 180 RF: 0 sennosides-docusate sodium [Senna-Time S] 8.6-50 mg tablet 1 tab PO BID Qty: 60 RF: 1 (DME) [employer] Advantage 1 EACH spacer 1 ea Miscellaneous DIRECTED RF: 0 albuterol sulfate 2.5 MG/3 ML solution for nebulization 2.5 mg Inhalation Q4H PRN PRN (Reason: Shortness Of Breath) 30 Days RF: 0 docusate sodium [Colace] 100 mg capsule 200 mg PO QHS PRN (Reason: constipation) Qty: 6 RF: 0 Symbicort 10.2 GM HFA aerosol inhaler 10.2 gm Inhalation BID Qty: 3 RF: 3 ondansetron 4 mg tablet,disintegrating 4 mg PO TID-QID PRN (Reason: nausea and vomiting) Qty: 30 RF: 0 Medical Decision Making <Pedro Nichole DO - Last Filed: 04/13/19 07:39> This is a 64-year-old male who is well-known to the emergency department with a past medical history of alcoholism, chronic recurrent noncardiac chest pain, chronic epigastric pain, COPD, notable anxiety, lung cancer who presents today for evaluation of constipation. He has been here 3 times so far for constipation in the last week and a half. He was given magnesium citrate on his last visit. His initial visit he had a CT scan which showed no acute abnormalities. Laboratory work-up at that time was also unremarkable. The patient was given mag citrate on his last visit and states that he took it at home but had no improvement. Current physical exam today demonstrates slightly bloated abdomen but notably present bowel sounds, no hypertympany, no other significant abnormalities. No stool in the rectal vault. Unfortunately the patient has lost most of his social support at home as all of his family and friends are currently on vacation. We will get an x-ray to rule out atypical obstruction which is notably clinically inconsistent with his current presentation. We will give the patient 300 mL's of magnesium citrate here in the ED followed by 5 glasses of water which I have personally delivered to him. We will also given an enema. The case will be signed out to my miracle eague for reassessment after treatment. FINDINGS: Gastrointestinal tract: Scattered air-fluid levels with prominent gastric fluid and mild small bowel dilatation. While nonspecific, the findings would be consistent with gastroenteritis in the appropriate clinical setting. Vasculature: Multiple pelvic calcifications, the majority of which are believed to be vascular in etiology. If urolithiasis is of clinical concern, CT may be of benefit for further evaluation. Bones/joints: Scoliosis and degenerative change. IMPRESSION: Scattered air-fluid levels with prominent gastric fluid and mild small bowel dilatation. While nonspecific, the findings would be consistent with gastroenteritis in the appropriate clinical setting. Thank you for allowing us to participate in the care of your patient. Dictated and Authenticated by: Elder Ferguson MD 04/13/2019 7:36 AM Eastern Time ([place] & [place]) <Ean Lyons MD - Last Filed: 04/13/19 10:23> See center from Dr. aguilar. Patient improved with his intervention was able to tolerate liquids and solids by mouth. He stable and improved at this time and appropriate for discharge to home. HPI <Pedro Nichole DO - Last Filed: 04/13/19 07:39> General Date/Time Provider Initiated Documentation: 04/13/19 07:37 . HPI Narrative: This is a 64-year-old male who is well-known to the emergency department with a past medical history of alcoholism, chronic recurrent noncardiac chest pain, chronic epigastric pain, COPD, notable anxiety, lung cancer who presents today for evaluation of constipation. Patient has been here 3 times in the past week and a half for evaluation of constipation. He is also been able to follow-up with his primary care provider. He has had continued constipation. He was given magnesium citrate on his last visit he reports that he took all of this but still has no improvement. He presents by EMS again for continued complaint of constipation. He admits to flatus but states that it is decreased. He states that he has not had a single bowel movement however there is stool noted in his briefs. Unfortunately all of his family members and relatives are currently gone on vacation and he is alone. He denies any vomiti ng but does admit to very mild nausea. He denies any acute change in pain. He denies any other complaints at this time. No other modifying factors. Related Data Home Medications Medication Instructions Recorded [facility] 10/15/17 04/13/19 albuterol sulfate 2.5 mg INHALATION Q4H PRN PRN 30 10/15/17 04/13/19 Days ml Symbicort 10.2 gm INHALATION BID #3 inhaler 09/21/18 04/13/19 tiotropium bromide 18 mcg capsule 1 cap INHALATION DAILY #90 inh 09/26/18 04/13/19 with inhalation device fluoxetine 20 mg tablet 20 mg PO DAILY #90 tab-cap 10/02/18 04/13/19 ondansetron 4 mg PO TID-QID PRN #30 tab 11/12/18 04/13/19 docusate sodium [Colace] 200 mg PO QHS PRN #6 cap 11/29/18 04/13/19 mirtazapine 15 mg tablet 15 mg PO HS #30 tab 12/12/18 04/13/19 clonazepam 0.5 mg tablet 0.5 mg PO BID PRN 12/19/18 04/13/19 albuterol sulfate 90 mcg/actuation 2 puff INHALATION Q4H PRN PRN #1 01/03/19 04/13/19 aerosol inhaler inh polyethylene glycol 3350 17 17 gm PO DAILY PRN #850 gm 01/11/19 04/13/19 gram/dose oral powder peg 3350-electrolytes 236 See Rx Instructions PO .COMPLEX 01/22/19 04/13/19 gram-22.74 gram-6.74 gram-5.86 #4000 ml gram solution bisacodyl 10 mg rectal suppository 10 mg NV DAILY PRN #8 each 01/30/19 04/13/19 pantoprazole 40 mg tablet,delayed 40 mg PO DAILY #90 tab 02/08/19 04/13/19 release calcium carbonate 500 mg calcium 500 mg PO BID #180 tab 02/19/19 04/13/19 (1,250 mg) tablet cholecalciferol (vitamin D3) 1,000 1,000 unit PO DAILY #90 cap 02/19/19 04/13/19 unit capsule hydroxyzine HCl 25 mg tablet 25 mg PO BID PRN #180 tab 02/20/19 04/13/19 apixaban 5 mg tablet 5 mg PO BID #180 tab 04/04/19 04/13/19 sennosides 8.6 mg-docusate sodium 1 tab PO BID #60 tab 04/04/19 04/13/19 50 mg tablet lubiprostone 24 mcg capsule 24 mcg PO DAILY #20 cap 04/10/19 04/13/19 Previous Rx's Medication Instructions [facility]ed [facility] 10/15/17 albuterol sulfate 2.5 mg INHALATION Q4H PRN PRN 30 10/15/17 Days ml Symbicort 10.2 gm INHALATION BID #3 inhaler 09/21/18 tiotropium bromide 18 mcg capsule 1 cap INHALATION DAILY #90 inh 09/26/18 with inhalation device fluoxetine 20 mg tablet 20 mg PO DAILY #90 tab-cap 10/02/18 ondansetron 4 mg PO TID-QID PRN #30 tab 11/12/18 docusate sodium [Colace] 200 mg PO QHS PRN #6 cap 11/29/18 mirtazapine 15 mg tablet 15 mg PO HS #30 tab 12/12/18 albuterol sulfate 90 mcg/actuation 2 puff INHALATION Q4H PRN PRN #1 01/03/19 aerosol inhaler inh polyethylene glycol 3350 17 17 gm PO DAILY PRN #850 gm 01/11/19 gram/dose oral powder peg 3350-electrolytes 236 See Rx Instructions PO .COMPLEX 01/22/19 gram-22.74 gram-6.74 gram-5.86 #4000 ml gram solution bisacodyl 10 mg rectal suppository 10 mg NV DAILY PRN #8 each 01/30/19 pantoprazole 40 mg tablet,delayed 40 mg PO DAILY #90 tab 02/08/19 release calcium carbonate 500 mg calcium 500 mg PO BID #180 tab 02/19/19 (1,250 mg) tablet cholecalciferol (vitamin D3) 1,000 1,000 unit PO DAILY #90 cap 02/19/19 unit capsule hydroxyzine HCl 25 mg tablet 25 mg PO BID PRN #180 tab 02/20/19 apixaban 5 mg tablet 5 mg PO BID #180 tab 04/04/19 sennosides 8.6 mg-docusate sodium 1 tab PO BID #60 tab 04/04/19 50 mg tablet lubiprostone 24 mcg capsule 24 mcg PO DAILY #20 cap 04/10/19 Allergies Allergy/AdvReac Type Severity Reaction Status Date / Time No Known Allergies Allergy Verified 04/13/19 07:12 General Stated Complaint: Abd Prob FLASH: 4 Review of Systems <Pedro Nichole DO - Last Filed: 04/13/19 07:39> All systems reviewed & are unremarkable except as noted in HPI and below PFSH <Pedro Nichole DO - Last Filed: 04/13/19 07:39> Social History (Updated 04/10/19 @ 15:42 by Brooke Augustine LPN) Smoking/Tobacco Use Status: Former Tobacco Use Quit Date: 06/05/98 Tobacco: How many years used: 30 Smokeless tobacco user: chewing tobacco Quit status: not considering quitting Alcohol Intake: former Drug use: Never Substance use type: does not use Details: Adopted: No Foster care: No Household members: other 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 Housing: apartment Number of Children: 0 Communication Needs: None Do you need help understanding health information?: Often current occupation: not working Current gender identity: male How often do you talk on the phone with friends or family?: three or more times per week Panel score (0-1 are the most socially isolated patients): 1 What type of physical activity do you participate in: none and other Details: started lifting weights Frequency: daily Seatbelt use: always Drive intox or ride w/intox hydraulic 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 Exam <Pedro Nichole DO - Last Filed: 04/13/19 07:39> Narrative Exam Narrative: 1.Const: Well-nourished, Well-developed, appearing stated age 2.Eyes: PERRL, no conjunctival injection, and symmetrical lids. 3.ENT: Atraumatic external nose and ears. Moist MM. Neck: Symmetric, trachea midline, No thyromegaly. 4.CVS: +S1/S2, No murmurs or gallops. Peripheral pulses 2+ and equal in all extremities. Brisk capillary refill in all extremities. 5.RESP: Unlabored respiratory effort. Clear to auscultation bilaterally. No wheezes rales or rhonchi 6.GI: Soft, mild bloating, bowel sounds are notably present. No guarding or rebound. Rectal exam demonstrates no large stool ball in the rectal vault. No evidence of melanotic stool. Small amount of stool noted in his briefs. Abdomen demonstrates no acute tenderness. No pain at McBurney's point, negative Coates sign. 7.MSK: Normocephalic/Atraumatic, Extremities w/o deformity or ttp No cyanosis or clubbing, Normal movement of all extremities 8.Skin: Warm, Dry. No rashes or lesions. 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 Sensation grossly intact, no focal neurologic deficits. 10.Psych: (AAO) x3. Appropriate mood and affect Course <Pedro Nichole DO - Last Filed: 04/13/19 07:39> Vital Signs Vital signs: Vital Signs Temperature 36.6 C 04/13/19 07:09 Pulse 86 04/13/19 07:09 Respiratory Rate 20 04/13/19 07:09 Blood Pressure 134/86 04/13/19 07:09 Pulse Oximetry 97 04/13/19 07:09 Temperature 36.6 C 04/13/19 07:09 Temperature Source Skin 04/13/19 07:09 Pulse 86 04/13/19 07:09 Respiratory Rate 20 04/13/19 07:09 Blood Pressure 134/86 04/13/19 07:09 Blood Pressure Position Sitting 04/13/19 07:09 Pulse Oximetry 97 04/13/19 07:09 Oxygen Delivery Method Room Air 04/13/19 07:09 Oxygen Flow Rate 0 04/13/19 07:09 Pain Level 9 04/13/19 07:09 Sign Out <Pedro Nichole DO - Last Filed: 04/13/19 07:39> Sign Out Data: Sign Out Comment: History of chronic constipation. Pending abdominal x-ray, giving 300 of mag citrate and enema. Reevaluate after this Last updated by Pedro Nichole DO at 04/13/19 07:23
[2019-04-13] MEDS: Magnesium Citrate 300 ML BTL PO (07:17)
--- NOTE | 2019-04-13 07:32 | DI.RAD_ITS ---
EXAM: XR ABDOMEN FLAT UPRIGHT INDICATION: no bms in >1week per patientABD PAIN COMPARISON: XR ABD FLAT UPRIGHT PA CHEST from 03/22/2019 TECHNIQUE: 2D digital imaging was performed. FINDINGS: The visualized lung bases are clear. Bowel gas pattern is nonspecific. No findings to suggest bowel obstruction are seen. No significant stool is seen. There is a mild left convex scoliotic curvature of the lumbar spine. Calcifications are seen in the pelvis. These are likely vascular calcifications. If there is concer n for urolithiasis, CT may be obtained. Moderate degenerative changes are seen in the hips bilaterally, left greater than right. No evidence of pneumoperitoneum. IMPRESSION: Nonspecific bowel gas pattern. No evidence of obstruction. No evidence of constipation.
--- NOTE | 2019-04-13 07:36 | DI.VRAD_ITS ---
PROCEDURE INFORMATION: Exam: XR Abdomen, 2 Views Exam date and time: 04/13/2019 7:30 AM Clinical history: 64 years old, male; Generalized; Patient HX: Lbm x1 week, no bms. Abdominal pain. TECHNIQUE: Imaging protocol: XR of the abdomen. Frontal supine and upright views of the abdomen. Views: 2 Views. COMPARISON: CR XR ABD FLAT UPRIGHT PA CHEST 03/22/2019 8:34 AM FINDINGS: Gastrointestinal tract: Scattered air-fluid levels with prominent gastric fluid and mild small bowel dilatation. While nonspecific, the findings would be consistent with gastroenteritis in the appropriate clinical setting. Vasculature: Multiple pelvic calcifications, the majority of which are believed to be vascular in etiology. If urolithiasis is of clinical concern, CT may be of benefit for further evaluation. Bones/joints: Scoliosis and degenerative change. IMPRESSION: Scattered air-fluid levels with prominent gastric fluid and mild small bowel dilatation. While nonspecific, the findings would be consistent with gastroenteritis in the appropriate clinical setting. Dictated and Authenticated by: Elder Ferguson MD. Ordering:CAITLIN Vasquez MD
[2019-04-13 10:33] VITALS: BP 132/68; PULSE 76; RESP 20; O2SAT 97
== END 2019-04-13 10:39 | disposition home or self-care (01) ==
PROVIDERS: Emergency Provider Emergency Medicine; PCP Internal Medicine
DX: K59.00 Constipation, unspecified (principal); J44.9 Chronic obstructive pulmonary disease, unspecified; Z87.891 Personal history of nicotine dependence
CPT/HCPCS: 99283; 74019

== ENCOUNTER 2019-04-28 07:04 | Emergency (ER) | payer MEDICARE, MEDICAID, SELFPAY ==
[2019-04-28 07:01] VITALS: BP 140/86; PULSE 78; RESP 18; TEMP 36.7; O2SAT 97
[2019-04-28] MEDS: Magnesium Citrate 300 ML BTL 150 ML PO (07:04)
--- NOTE | 2019-04-28 07:23 | ED.GENADUL_ITS ---
Discharge Plan Disposition Patient Disposition: HOME Condition: Good Discharge Details Chief Complaint: Abd Prob Clinical Impression: Constipation Primary Care Provider: Deborah Chow ED Provider: Alison Resendiz Home Meds and New Rx's Prescriptions: New docusate sodium [Colace] 100 mg capsule 100 mg PO BID Qty: 90 RF: 0 Continued Spiriva with HandiHaler 18 mcg capsule, w/inhalation device 1 cap Inhalation DAILY Qty: 90 RF: 0 mirtazapine 15 mg tablet 15 mg PO HS Qty: 30 RF: 1 albuterol sulfate [ProAir HFA] 90 mcg/actuation HFA aerosol inhaler 2 puff Inhalation Q4H PRN PRN (Reason: Shortness Of Breath) Qty: 1 RF: 5 polyethylene glycol 3350 [Miralax] 17 gram/dose powder 17 gm PO DAILY PRN (Reason: constipation) Qty: 850 RF: 12 bisacodyl 10 mg suppository 10 mg IA DAILY PRN (Reason: constipation) Qty: 8 RF: 0 lubiprostone 24 mcg capsule 24 mcg PO DAILY Qty: 90 RF: 0 fluoxetine 20 mg tablet 20 mg PO DAILY Qty: 90 RF: 3 clonazepam [Klonopin] 0.5 mg tablet 0.5 mg PO BID PRNRF: 0 cholecalciferol (vitamin D3) 1,000 unit capsule 1,000 unit PO DAILY Qty: 90 RF: 3 calcium carbonate 500 mg calcium (1,250 mg) tablet 500 mg PO BID Qty: 180 RF: 3 hydroxyzine HCl 25 mg tablet 25 mg PO BID PRN (Reason: anxiety) Qty: 180 RF: 2 pantoprazole 40 mg tablet,delayed release (DR/EC) 40 mg PO DAILY Qty: 90 RF: 3 apixaban 5 mg tablet 5 mg PO BID Qty: 180 RF: 0 sennosides-docusate sodium [Senna-Time S] 8.6-50 mg tablet 1 tab PO BID Qty: 60 RF: 1 (DME) [employer] Advantage 1 EACH spacer 1 ea Miscellaneous DIRECTED RF: 0 albuterol sulfate 2.5 MG/3 ML solution for nebulization 2.5 mg Inhalation Q4H PRN PRN (Reason: Shortness Of Breath) 30 Days RF: 0 Symbicort 10.2 GM HFA aerosol inhaler 10.2 gm Inhalation BID Qty: 3 RF: 3 Discharge Instructions Instructions: Constipation (ED) Additional Instructions: You were constipated. Please take 100 mg Colace twice daily as prescribed. Please drink plenty of fluids. If you notice yourself starting to feel constipated please by 1 bottle of [id number] magnesium citrate and take it with plenty of water. If you notice any worsening of your symptoms, or any new symptoms such as vomiting, diarrhea, fever, chills, shortness of breath, chest pain, numbness, weakness, or fainting , please return immediately to the emergency department for reevaluation. Please follow up with your primary care provider as soon as possible for reassessment and reevaluation. As always, it was a pleasure participating in your medical care today. Referrals: Deborah Chow MD [Primary Care Provider] - Discharge Data Discharge Date/Time-TO BE ENTERED AT DEPARTURE: 04/28/19 09:33 Medical Decision Making <Pedro Nichole DO - Last Filed: 04/28/19 21:19> This is a 64-year-old male who is well-known to the emergency department with a past medical history of alcoholism, chronic recurrent noncardiac chest pain, chronic epigastric pain, COPD, notable anxiety, lung cancer who presents today for evaluation of constipation. Patient has been seen recently for this. He states that his family is currently gone, and he has not pooped in the last 3 days. He has had flat is still. He denies any vomiting. He states he has not been taking his anticonstipation medications over the last few days. Aside from mild crampiness he denies any other pain. He denies any other modifying factors. Physical exam demonstrates minimal abdominal distention, bowel sounds are present, nontender abdomen. Minimal amount of stool in the rectal vault, no hard stool ball. We will give an enema, give mag citrate here in the ED, and recommend that he refills his home anticonstipation medications. Currently he shows no clinical signs of an acute surgical abdomen. He did have a CT scan when he had nearly identical findings 1 month ago, and an x-ray less than 1 month ago both of which time showed no evidence of obstruction, mass, tumor or other abnormality. <Alison Resendiz DO - Last Filed: 04/30/19 13:57> 0800 -- please see Dr. Nichole's note for initial presentation and plan. Patient is a 64-year-old male well-known to the emergency department for margaret quent visits for chronic chest and abdominal pain as well as constipation presents again today for constipation. He has been seen multiple times recently for this. Patient received enema as well as mag citrate. Case endorsed to follow-up on patient response to medications and discharge once he has had a bowel movement. 0920 --patient able to have a bowel movement and states he feels better. A bdomen soft and nontender. He states he has his medications at home to use for his constipation. He is advised to also consider suppositories. He is advised to follow-up with his primary care doctor and return here anytime if worse. Medical Records Medical records reviewed: Yes I reviewed the patient's medical records. HPI <Pedro Nichole DO - Last Filed: 04/28/19 21:19> General Date/Time Provider Initiated Documentation: 04/28/19 07:23 . HPI Narrative: This is a 64-year-old male who is well-known to the emergency department with a past medical history of alcoholism, chronic recurrent noncardiac chest pain, chronic epigastric pain, COPD, notable anxiety, lung cancer who presents today for evaluation of constipation. Patient has been seen recently for this. He states that his family is currently gone, and he has not pooped in the last 3 days. He has had flat is still. He denies any vomiting. He states he has not been taking his anticonstipation medications over the last few days. Aside from mild crampiness he denies any other pain. He denies any other modifying factors. Related Data Home Medications Medication Instructions Recorded Confirmed [employer] [facility] 10/15/17 04/28/19 albuterol sulfate 2.5 mg INHALATION Q4H PRN PRN 30 10/15/17 04/28/19 Days ml Symbicort 10.2 gm INHALATION BID #3 inhaler 09/21/18 04/28/19 tiotropium bromide 18 mcg capsule 1 cap INHALATION DAILY #90 inh 09/26/18 04/28/19 with inhalation device fluoxetine 20 mg tablet 20 mg PO DAILY #90 tab-cap 10/02/18 04/28/19 mirtazapine 15 mg tablet 15 mg PO HS #30 tab 12/12/18 04/28/19 clonazepam 0.5 mg tablet 0.5 mg PO BID PRN 12/19/18 04/28/19 albuterol sulfate 90 mcg/actuation 2 puff INHALATION Q4H PRN PRN #1 01/03/19 04/28/19 aerosol inhaler inh polyethylene glycol 3350 17 17 gm PO DAILY PRN #850 gm 01/11/19 04/28/19 gram/dose oral powder bisacodyl 10 mg rectal suppository 10 mg IA DAILY PRN #8 each 01/30/19 04/28/19 pantoprazole 40 mg tablet,delayed 40 mg PO DAILY #90 tab 02/08/19 04/28/19 release calcium carbonate 500 mg calcium 500 mg PO BID #180 tab 02/19/19 04/28/19 (1,250 mg) tablet cholecalciferol (vitamin D3) 1,000 1,000 unit PO DAILY #90 cap 02/19/19 04/28/19 unit capsule hydroxyzine HCl 25 mg tablet 25 mg PO BID PRN #180 tab 02/20/19 04/28/19 apixaban 5 mg tablet 5 mg PO BID #180 tab 04/04/19 04/28/19 sennosides 8.6 mg-docusate sodium 1 tab PO BID #60 tab 04/04/19 04/28/19 50 mg tablet lubiprostone 24 mcg capsule 24 mcg PO DAILY #90 cap 04/24/19 04/28/19 docusate sodium [Colace] 100 mg PO BID #90 cap 04/28/19 Previous Rx's Medication Instructions [facility]ed [facility] 10/15/17 albuterol sulfate 2.5 mg INHALATION Q4H PRN PRN 30 10/15/17 Days ml Symbicort 10.2 gm INHALATION BID #3 inhaler 09/21/18 tiotropium bromide 18 mcg capsule 1 cap INHALATION DAILY #90 inh 09/26/18 with inhalation device fluoxetine 20 mg tablet 20 mg PO DAILY #90 tab-cap 10/02/18 mirtazapine 15 mg tablet 15 mg PO HS #30 tab 12/12/18 albuterol sulfate 90 mcg/actuation 2 puff INHALATION Q4H PRN PRN #1 08/01/19 aerosol inhaler inh polyethylene glycol 3350 17 17 gm PO DAILY PRN #850 gm 01/11/19 gram/dose oral powder bisacodyl 10 mg rectal suppository 10 mg IA DAILY PRN #8 each 01/30/19 pantoprazole 40 mg tablet,delayed 40 mg PO DAILY #90 tab 02/08/19 release calcium carbonate 500 mg calcium 500 mg PO BID #180 tab 02/19/19 (1,250 mg) tablet cholecalciferol (vitamin D3) 1,000 1,000 unit PO DAILY #90 cap 02/19/19 unit capsule hydroxyzine HCl 25 mg tablet 25 mg PO BID PRN #180 tab 02/20/19 apixaban 5 mg tablet 5 mg PO BID #180 tab 04/04/19 sennosides 8.6 mg-docusate sodium 1 tab PO BID #60 tab 04/04/19 50 mg tablet lubiprostone 24 mcg capsule 24 mcg PO DAILY #90 cap 04/24/19 docusate sodium [Colace] 100 mg PO BID #90 cap 04/28/19 Allergies Allergy/AdvReac Type Severity Reaction Status Date / Time No Known Allergies Allergy Verified 04/28/19 07:04 General Stated Complaint: Abd Prob FLASH: 3 Review of Systems <Pedro Nichole DO - Last Filed: 04/28/19 21:19> All systems reviewed & are unremarkable except as noted in HPI and below PFSH <Pedro Nichole DO - Last Filed: 04/28/19 21:19> Social History (Updated 04/10/19 @ 15:42 by Brooke Augustine LPN) Smoking/Tobacco Use Status: Former Tobacco Use Quit Date: 06/05/98 Tobacco: How many years used: 30 Smokeless tobacco user: chewing tobacco Quit status: not considering quitting Alcohol Intake: former Drug use: Never Substance use type: does not use Details: Adopted: No Foster care: No Household members: other Details: [employer] Care Provider 26/12 Housing: apartment Number of Children: 0 Communication Needs: None Do you need help understanding health information?: Often current occupation: not working Current gender identity: male How often do you talk on the phone with friends or family?: three or more times per week Panel score (0-1 are the most socially isolated patients): 1 What type of physical activity do you participate in: none and other Details: started lifting weights Frequency: daily Seatbelt use: always Drive intox 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 Exam <Pedro Nichole DO - Last Filed: 04/28/19 21:19> Narrative Exam Narrative: 1.Const: Well-nourished, Well-developed, appearing stated age 2.Eyes: PERRL, no conjunctival injection, and symmetrical lids. 3.ENT: Atraumatic external nose and ears. Moist MM. Neck: Symmetric, trachea midline, No thyromegaly. 4.CVS: +S1/S2, No murmurs or gallops. Peripheral pulses 2+ and equal in all extremities. Brisk capillary refill in all extremities. 5.RESP: Unlabored respiratory effort. Clear to auscultation bilaterally. No wheezes rales or rhonchi 6.GI: Soft, mild abdominal bloating, bowel sounds are notably present. No guarding or rebound. No evidence of an acute surgical abdomen. Rectal exam demonstrates a small amount of stool in the rectal vault, no hard stool ball. 7.MSK: Normocephalic/Atraumatic, Extremities w/o deformity or ttp No cyanosis or clubbing, Normal movement of all extremities 8.Skin: Warm, Dry. No rashes or lesions. 9.Neuro: code inspector II-XII grossly intact. Sensation grossly intact, no focal neurologic deficits. 10.Psych: (AAO) x3. Appropriate mood and affect Course <Pedro Nichole DO - Last Filed: 04/28/19 21:19> Vital Signs Vital signs: Vital Signs Temperature 36.7 C 04/28/19 07:01 Pulse 78 04/28/19 07:01 Respiratory Rate 18 04/28/19 07:01 Blood Pressure 140/86 04/28/19 07:01 Pulse Oximetry 97 04/28/19 07:01 Temperature 36.7 C 04/28/19 07:01 Temperature Source Temporal Artery Scan 04/28/19 07:01 Pulse 78 04/28/19 07:01 Respiratory Rate 18 04/28/19 07:01 Respiratory Effort Non-Labored 04/28/19 07:01 Blood Pressure 140/86 04/28/19 07:01 Pulse Oximetry 97 04/28/19 07:01 Oxygen Delivery Method Room Air 04/28/19 07:01 Oxygen Flow Rate 0 04/28/19 07:01 Pain Level 8 04/28/19 07:01 Sign Out <Pedro Nichole DO - Last Filed: 04/28/19 21:19> Sign Out Data: Sign Out Comment: Constipation, has been given mag citrate. Will need enema. Reassessment after observation for bowel movements. Last updated by Pedro Nichole DO at 04/28/19 07:30
[2019-04-28 09:31] VITALS: PULSE 67; RESP 18; TEMP 36.6; O2SAT 98
== END 2019-04-28 09:33 | disposition home or self-care (01) ==
PROVIDERS: Emergency Provider Physician Assistant; PCP Internal Medicine
DX: K59.00 Constipation, unspecified (principal); J44.9 Chronic obstructive pulmonary disease, unspecified
CPT/HCPCS: 99283

== ENCOUNTER 2019-05-13 11:04 | Outpatient (CLI) | payer MEDICARE, MEDICAID, SELFPAY ==
--- NOTE | 2019-05-13 11:16 | DI.RAD_ITS ---
EXAM: XR CHEST 2V PA LATERAL INDICATION: Pleuritic chest pain, hist. of lung CA and rxt R05 COUGH. COMPARISON: XR ABD FLAT UPRIGHT PA CHEST from 03/22/2019 TECHNIQUE: 2D digital imaging was performed. FINDINGS: The heart size is normal. There has been no change in the appearance of the right upper lobe mass or scarring. No new abnormality is seen. There is no evidence of an infiltrate or effusion. IMPRESSION: Stable right upper lobe mass and/or scarring. No acute abnormality.
== END 2019-05-13 11:24 ==
PROVIDERS: PCP Internal Medicine; Visit Provider Family Medicine
DX: R05 Cough (principal); R07.81 Pleurodynia; Z85.118 Personal history of other malignant neoplasm of bronchus and lung
CPT/HCPCS: 71046

== ENCOUNTER 2019-05-30 07:37 | Emergency (ER) | payer MEDICARE, MEDICAID, SELFPAY ==
[2019-05-30 07:39] VITALS: BP 117/83; PULSE 81; RESP 16; TEMP 36.6; O2SAT 99
--- NOTE | 2019-05-30 08:04 | ED.GENADUL_ITS ---
Discharge Plan Disposition Patient Disposition: HOME Condition: Stable Discharge Details Chief Complaint: Anxiety Clinical Impression: Esophagitis with gastritis Primary Care Provider: Deborah Chow ED Provider: Ean Lyons Home Meds and New Rx's Prescriptions: New sucralfate [Carafate] 100 mg/mL suspension 5 ml PO TID Qty: 420 RF: 1 Continued Spiriva with HandiHaler 18 mcg capsule, w/inhalation device 1 cap Inhalation DAILY Qty: 90 RF: 0 mirtazapine 15 mg tablet 15 mg PO HS Qty: 30 RF: 1 albuterol sulfate [ProAir HFA] 90 mcg/actuation HFA aerosol inhaler 2 puff Inhalation Q4H PRN PRN (Reason: Shortness Of Breath) Qty: 1 RF: 5 polyethylene glycol 3350 [Miralax] 17 gram/dose powder 17 gm PO DAILY PRN (Reason: constipation) Qty: 850 RF: 12 bisacodyl 10 mg suppository 10 mg DC DAILY PRN (Reason: constipation) Qty: 8 RF: 0 lubiprostone 24 mcg capsule 24 mcg PO DAILY Qty: 90 RF: 0 fluoxetine 20 mg tablet 20 mg PO DAILY Qty: 90 RF: 3 clonazepam [Klonopin] 0.5 mg tablet 0.5 mg PO BID PRNRF: 0 cholecalciferol (vitamin D3) 1,000 unit capsule 1,000 unit PO DAILY Qty: 90 RF: 3 calcium carbonate 500 mg calcium (1,250 mg) tablet 500 mg PO BID Qty: 180 RF: 3 hydroxyzine HCl 25 mg tablet 25 mg PO BID PRN (Reason: anxiety) Qty: 180 RF: 2 pantoprazole 40 mg tablet,delayed release (DR/EC) 40 mg PO DAILY Qty: 90 RF: 3 apixaban 5 mg tablet 5 mg PO BID Qty: 180 RF: 0 sennosides-docusate sodium [Senna-Time S] 8.6-50 mg tablet 1 tab PO BID Qty: 60 RF: 1 (DME) [employer] Ad[employer] 1 EACH spacer 1 ea Miscellaneous DIRECTED RF: 0 albuterol sulfate 2.5 MG/3 ML solution for nebulization 2.5 mg Inhalation Q4H PRN PRN (Reason: Shortness Of Breath) 30 Days RF: 0 docusate sodium [Colace] 100 mg capsule 100 mg PO BID Qty: 90 RF: 0 Symbicort 10.2 GM HFA aerosol inhaler 10.2 gm Inhalation BID Qty: 3 RF: 3 Discharge Instructions Instructions: Gastritis (ED) Additional Instructions: Home to rest today. I recommend you have a bland diet primarily soft, including mashed vegetables, applesauce, smoothies for the next 48 to 72 hours. Begin Carafate as prescribed. Continue your regular medications Follow-up with Dr. hCow for recheck in the next 1 to 2 weeks time. Medical Decision Making 64-year-old male presents from home. States that he has been well but has had 2 weeks of intermittent episodes of difficulty swallowing. He states he sometimes gets an acrid taste in his mouth. No abdominal bloating or vomiting. He states he is continues to reyes intermittent constipation but had a normal bowel movement yesterday. He has not had a fever. He has had no intolerance of secretions and no change to voice. States that he spent a relaxing Luis A with his parents with whom he is living. He is well-appearing with normal vital signs. His exam is unremarkable. I believe he does have GERD and likely some esophagitis. There is no evidence that he has a stricture. I discussed with him that I will place him on 2 weeks of Carafate, he he understands he is to avoid swallowing large chunks of meat. If this persists over weeks to months, he may require upper endoscopy. He is stable and I feel will improve if he can adhere to this course of therapy. HPI General Mode of arrival: ambulatory . Date/Time Provider Initiated Documentation: 05/30/19 07:54 . Limitations to Documentation: no limitations . Information obtained by: patient . History of Present Illness 64 year old M presents to the emergency department with the chief complaint of Difficulty swallowing for 2 weeks, described as mild, Quality is described as dull, and is localized to the neck. Patient reports no radiation. Patient started experiencing this day(s) and it has been intermittent. No relieving factors improve symptom(s), Eating worsens symptoms . Patient notes denies fever/chills. Patient did receive the following treatments prior to arrival, none Related Data Home Medications Medication Instructions Recorded Confirmed [facility] 10/15/17 05/30/19 albuterol sulfate 2.5 mg INHALATION Q4H PRN PRN 30 10/15/17 05/30/19 Days ml Symbicort 10.2 gm INHALATION BID #3 inhaler 09/21/18 05/30/19 tiotropium bromide 18 mcg capsule 1 cap INHALATION DAILY #90 inh 09/26/18 05/30/19 with inhalation device fluoxetine 20 mg tablet 20 mg PO DAILY #90 tab-cap 10/02/18 05/30/19 mirtazapine 15 mg tablet 15 mg PO HS #30 tab 12/12/18 05/30/19 clonazepam 0.5 mg tablet 0.5 mg PO BID PRN 12/19/18 05/30/19 albuterol sulfate 90 mcg/actuation 2 puff INHALATION Q4H PRN PRN #1 01/03/19 05/30/19 aerosol inhaler inh polyethylene glycol 3350 17 17 gm PO DAILY PRN #850 gm 01/11/19 05/30/19 gram/dose oral powder bisacodyl 10 mg rectal suppository 10 mg DC DAILY PRN #8 each 01/30/19 05/30/19 pantoprazole 40 mg tablet,delayed 40 mg PO DAILY #90 tab 02/08/19 05/30/19 release calcium carbonate 500 mg calcium 500 mg PO BID #180 tab 02/19/19 05/30/19 (1,250 mg) tablet cholecalciferol (vitamin D3) 25 1,000 unit PO DAILY #90 cap 02/19/19 05/30/19 mcg (1,000 unit) capsule hydroxyzine HCl 25 mg tablet 25 mg PO BID PRN #180 tab 02/20/19 05/30/19 apixaban 5 mg tablet 5 mg PO BID #180 tab 04/04/19 05/30/19 sennosides 8.6 mg-docusate sodium 1 tab PO BID #60 tab 04/04/19 05/30/19 50 mg tablet lubiprostone 24 mcg capsule 24 mcg PO DAILY #90 cap 04/24/19 05/30/19 docusate sodium [Colace] 100 mg PO BID #90 cap 04/28/19 05/30/19 sucralfate [Carafate] 5 ml PO TID #420 ml 05/30/19 Previous Rx's Medication Instructions Recorded [facility] 10/15/17 albuterol sulfate 2.5 mg INHALATION Q4H PRN PRN 30 10/15/17 Days ml Symbicort 10.2 gm INHALATION BID #3 inhaler 09/21/18 tiotropium bromide 18 mcg capsule 1 cap INHALATION DAILY #90 inh 09/26/18 with inhalation device fluoxetine 20 mg tablet 20 mg PO DAILY #90 tab-cap 10/02/18 mirtazapine 15 mg tablet 15 mg PO HS #30 tab 12/12/18 albuterol sulfate 90 mcg/actuation 2 puff INHALATION Q4H PRN PRN #1 01/03/19 aerosol inhaler inh polyethylene glycol 3350 17 17 gm PO DAILY PRN #850 gm 01/11/19 gram/dose oral powder bisacodyl 10 mg rectal suppository 10 mg DC DAILY PRN #8 each 01/30/19 pantoprazole 40 mg tablet,delayed 40 mg PO DAILY #90 tab 02/08/19 release calcium carbonate 500 mg calcium 500 mg PO BID #180 tab 02/19/19 (1,250 mg) tablet cholecalciferol (vitamin D3) 25 1,000 unit PO DAILY #90 cap 02/19/19 mcg (1,000 unit) capsule hydroxyzine HCl 25 mg tablet 25 mg PO BID PRN #180 tab 02/20/19 apixaban 5 mg tablet 5 mg PO BID #180 tab 04/04/19 sennosides 8.6 mg-docusate sodium 1 tab PO BID #60 tab 04/04/19 50 mg tablet lubiprostone 24 mcg capsule 24 mcg PO DAILY #90 cap 04/24/19 docusate sodium [Colace] 100 mg PO BID #90 cap 04/28/19 sucralfate [Carafate] 5 ml PO TID #420 ml 05/30/19 Allergies Allergy/AdvReac Type Severity Reaction Status Date / Time No Known Allergies Allergy Verified 05/30/19 07:42 General Stated Complaint: Anxiety FLASH: 4 Review of Systems Narrative: With eating meat. No obstructions. No significant vomiting. States he is taking his pantoprazole. 6 systems reviewed and otherwise negative. COUNTS INCLUDE 234 BEDS AT THE [facility] Medical History Adjustment disorder with anxiety (Chronic) Alcohol abuse (Chronic) Anxiety (Chronic) COPD (chronic obstructive pulmonary disease) (Chronic) Dyspepsia (Chronic) Malignant neoplasm of right lung (Chronic) Tubular adenoma of colon (Inactive) Family History Father Essential hypertension Hyperlipidemia Paternal Uncle Heart disease Stroke Cerebral hemorrhage Hypertension Brother Cancer head and neck cancer - smoker Social History (Updated 04/10/19 @ 15:42 by Brooke Augustine LPN) Smoking/Tobacco Use Status: Former Tobacco Use Quit Date: 06/05/98 Tobacco: How many years used: 30 Smokeless tobacco user: chewing tobacco Quit status: not considering quitting Alcohol Intake: former Drug use: Never Substance use type: does not use Details: Adopted: No Foster care: No Household members: other Details: Macadam Raker Care Provider 26/12 Housing: apartment Number of Children: 0 Communication Needs: None Do you need help understanding health information?: Often current occupation: not working Current gender identity: male How often do you talk on the phone with friends or family?: three or more times per week Panel score (0-1 are the most socially isolated patients): 1 What type of physical activity do you participate in: none and other Details: started lifting weights Frequency: daily Seatbelt use: always Drive intox or ride w/intox 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 Exam Narrative Exam Narrative: GEN: awake, alert, oriented 3. Pleasant, well groomed, interactive. HEAD: Normocephalic, atraumatic ENT: Mucous membranes moist, oropharynx edentulous, tobacco stains, no masses, asymmetry, the uvula is midline., External ear exam unremarkable EYES: PERRL, EOMI NECK: Full ROM, no URSZULA, no menigismus CHEST/RESP: Nontender, clear to auscultation bilateral, no wheeze/rhonchi/rales CARDIOVASCULAR: RRR, no murmur, rub jeannie. 2+ Rad pulse bilateral ABDOMEN: Soft, nontender, no mass. +Bowel sounds EXT: Full ROM, no edema, no rash Neuro: Grossly normal neurologic exam, conversant, interactive. Psych: Speech fluent, thoughts congruent, affect normal, mildly anxious Course Vital Signs Vital signs: Vital Signs Temperature 36.6 C 05/30/19 07:39 Pulse 81 05/30/19 07:39 Respiratory Rate 16 05/30/19 07:39 Blood Pressure 117/83 05/30/19 07:39 Pulse Oximetry 99 05/30/19 07:39 Temperature 36.6 C 05/30/19 07:39 Temperature Source Temporal Artery Scan 05/30/19 07:39 Pulse 81 05/30/19 07:39 Respiratory Rate 16 05/30/19 07:39 Respiratory Effort Non-Labored 05/30/19 07:39 Blood Pressure 117/83 05/30/19 07:39 Pulse Oximetry 99 05/30/19 07:39 Oxygen Delivery Method Room Air 05/30/19 07:39 Oxygen Flow Rate 0 05/30/19 07:39 End Tidal Co2 0 05/30/19 07:39 Pain Level 0 05/30/19 07:39
[2019-05-30] MEDS: Sucralfate 1 GM TAB PO (08:08)
== END 2019-05-30 08:17 | disposition home or self-care (01) ==
PROVIDERS: Emergency Provider Emergency Medicine; PCP Internal Medicine
DX: K21.0 Gastro-esophageal reflux disease with esophagitis (principal); F10.10 Alcohol abuse, uncomplicated; F41.9 Anxiety disorder, unspecified; J44.9 Chronic obstructive pulmonary disease, unspecified; F17.220 Nicotine dependence, chewing tobacco, uncomplicated
CPT/HCPCS: 99283

== ENCOUNTER 2019-06-07 06:45 | Emergency (ER) | payer MEDICARE, MEDICAID, SELFPAY ==
[2019-06-07 06:47] VITALS: BP 145/81; PULSE 78; RESP 18; TEMP 36.4; O2SAT 96
--- NOTE | 2019-06-07 07:01 | ED.GENADUL_ITS ---
Discharge Plan Disposition Patient Disposition: HOME Condition: Stable Discharge Details Chief Complaint: GenMedical Clinical Impression: Esophagitis, Supraglottic lesion Primary Care Provider: Deborah Chow ED Provider: Alison Resendiz Home Meds and New Rx's Prescriptions: Continued Spiriva with HandiHaler 18 mcg capsule, w/inhalation device 1 cap Inhalation DAILY Qty: 90 RF: 0 mirtazapine 15 mg tablet 15 mg PO HS Qty: 30 RF: 1 albuterol sulfate [ProAir HFA] 90 mcg/actuation HFA aerosol inhaler 2 puff Inhalation Q4H PRN PRN (Reason: Shortness Of Breath) Qty: 1 RF: 5 polyethylene glycol 3350 [Miralax] 17 gram/dose powder 17 gm PO DAILY PRN (Reason: constipation) Qty: 850 RF: 12 bisacodyl 10 mg suppository 10 mg NC DAILY PRN (Reason: constipation) Qty: 8 RF: 0 lubiprostone 24 mcg capsule 24 mcg PO DAILY Qty: 90 RF: 0 fluoxetine 20 mg tablet 20 mg PO DAILY Qty: 90 RF: 3 clonazepam [Klonopin] 0.5 mg tablet 0.5 mg PO BID PRNRF: 0 cholecalciferol (vitamin D3) 1,000 unit capsule 1,000 unit PO DAILY Qty: 90 RF: 3 calcium carbonate 500 mg calcium (1,250 mg) tablet 500 mg PO BID Qty: 180 RF: 3 hydroxyzine HCl 25 mg tablet 25 mg PO BID PRN (Reason: anxiety) Qty: 180 RF: 2 pantoprazole 40 mg tablet,delayed release (DR/EC) 40 mg PO DAILY Qty: 90 RF: 3 apixaban 5 mg tablet 5 mg PO BID Qty: 180 RF: 0 sennosides-docusate sodium [Senna-Time S] 8.6-50 mg tablet 1 tab PO BID Qty: 60 RF: 1 (DME) OptiChamber Advantage 1 EACH spacer 1 ea Miscellaneous DIRECTED RF: 0 albuterol sulfate 2.5 MG/3 ML solution for nebulization 2.5 mg Inhalation Q4H PRN PRN (Reason: Shortness Of Breath) 30 Days RF: 0 docusate sodium [Colace] 100 mg capsule 100 mg PO BID Qty: 90 RF: 0 Symbicort 10.2 GM HFA aerosol inhaler 10.2 gm Inhalation BID Qty: 3 RF: 3 sucralfate [Carafate] 100 mg/mL suspension 5 ml PO TID Qty: 420 RF: 1 Discharge Instructions Instructions: Esophagitis (ED) Additional Instructions: Continue your Protonix and Carafate. Mainly follow a diet of liquids and soft foods until follow-up with ENT. You will receive a call from care management regarding a follow-up appointment with ENT. Follow-up with your scheduled appointment with gastroenterology at [facility] on Monday for your upper endoscopy. Patient advised to return to the ER with any worsening or new concerning symptoms. Referrals: Rito Gonzalez MD [ [facility] STAFF PHYSICIAN] - Discharge Data Discharge Date/Time-TO BE ENTERED AT DEPARTURE: 06/07/19 10:20 Discharge Physician: Alison Resendiz Medical Decision Making <Daren Chiang MD - Last Filed: 06/07/19 20:01> Patient presents with worsening throat pain and difficulty swallowing. He feels like there is something there hindering his ability to swallow and at times breathe. In reviewing records from [facility] from April he had a visit with GI and was describing a globus sensation at that time. He has had radiation therapy for right upper lung tumor back in 2018. When seen last week thought possibly related to reflux and Carafate added to his PPI. Initially thought it was helping but now he is reporting worsening symptoms. Rapid strep done by nursing is negative. Doubt abscess or mass but will obtain CT neck today to rule out. If not refer back to PCP for coordination and referral to ENT and/or GI. CBC and BMP are normal. Patient is in CT now. Case signed over to Dr. Resendiz to follow-up on imaging and disposition. Medical Records Medical records reviewed: Yes I reviewed the patient's medical records. Lab Data Lab results reviewed: Yes I reviewed the patient's lab results. <Alison Resendiz DO - Last Filed: 06/07/19 10:09> 0800 --please see Dr. Chiang's note for initial presentation, exam and plan. 64-year-old male well-known to the emergency department for chronic chest pain, shortness of breath, abdominal pain and constipation presents for difficulty swallowing and breathing for the past 2 months. He states he has no difficulty swallowing liquids and soft foods but notices the difficulty with swallowing hamburgers or hot dogs. Case endorsed to follow-up on CT imaging. CT neck noted wall thickening proximal esophagus likely consistent with esophagitis. There is also a possible asymmetry of mucosa of supraglottic larynx, lesion not excluded and correlation with laryngoscope be recommended. He has a known right upper lobe carcinoma. Patient states he has an appointment with [facility] ENT on Monday for a scope for this chronic complaint. We looked up at [facility] computer system appointment and patient actually has an appointment with GI on Monday for upper endoscopy and not ENT. Patient was placed on care management list to arrange for follow-up appointment with ENT. Patient advised to continue his Carafate and Protonix. He is advised to avoid large chewy foods, and stick to a diet of liquids and soft foods until further follow-up with ENT. Patient was able to drink fluids here. He is advised to return here with any worsening or concerning symptoms. Medical Records Medical records reviewed: Yes I reviewed the patient's medical records. Imaging Data Radiologic Study: Radiologist's impression: CT NECK W CLINICAL HISTORY: increasing throat pain/difficulty swallowing TECHNIQUE: CT examination of the cervical region was performed with intravenous infusion of 100 cc of Omnipaque 350. COMPARISON: HEAD NECK FACIAL WO from 11/18/2016 XR CHEST 2V PA LATERAL from 05/13/2019 FINDINGS: Patient has a known right upper lobe lung carcinoma reportedly treated with radiotherapy. Visualized brain is unremarkable. No gross cervical mass or adenopathy. There is no evidence of a retro pharyngeal abscess or mass. Note is made of some asymmetry of the supraglottic larynx, fat planes are asymmetric and although there is no definite mass seen, the possibility of mucosal based lesion would have to be raised. Correlation with laryngoscopy suggested. Larynx and trachea otherwise unremarkable in appearance. There is wall thickening of the esophagus to the inferior margin of the scan field just below the level of the aortic arch. The right upper lobe spiculated mass corresponds to the known carcinoma on prior studies. No additional lesion identified. No gross superior mediastinal adenopathy. No gross supraclavicular adenopathy. IMPRESSION: Known right upper lobe lung carcinoma, reportedly treated with radiotherapy. Wall thickening of the proximal 3rd of the esophagus, suspicion of esophagitis. Question asymmetry of mucosa and fat planes of supraglottic larynx, lesion at this site not excluded and correlation with laryngoscopy is recommended. Lab Data Lab results reviewed: Yes I reviewed the patient's lab results. Labs: Laboratory Tests Range/Units 06/07/19 06/07/19 07:25 07:25 WBC (4.4-10.8) k/cumm 3.68 L RBC (4.50-6.00) m/cumm 4.63 Hgb (13.5-17.5) g/dL 13.9 Hct (40.0-50.0) % 41.0 MCV (80-95) fL 88.6 MCH (27.0-33.0) pg 30.0 MCHC (32.0-36.0) g/dL 33.9 RDW (11.8-14.1) % 12.2 Plt Count (130-400) x1000/uL 234 MPV (8.0-11.0) fL 10.1 Immature Gran % % 0.5 Neutrophils % 63.1 Lymphocytes % 22.8 Monocytes % 12.0 Eosinophils % 1.1 Basophils % 0.5 Absolute Neutrophils (1.2-6.7) k/cumm 2.32 Absolute Lymphocytes (1.2-3.4) k/cumm 0.84 L Absolute Monocytes (0.11-0.7) k/cumm 0.44 Absolute Eosinophils (0.0-0.7) k/cumm 0.04 Absolute Basophils (0.0-0.2) k/cumm 0.02 Sodium (136-145) mmol/L 143 Potassium (3.5-5.1) mmol/L 4.0 Chloride (98-107) mmol/L 107 Carbon Dioxide (21.0-32.0) mmol/L 29.0 Anion Gap (3-11) mmol/L 7.0 BUN (7-18) mg/dL 12 Creatinine (0.70-1.30) mg/dL 1.14 Estimated GFR/1.73 m2 (mL/min/1.73m2) >= 60.00 Glucose (74-106) mg/dL 101 Calcium (8.5-10.1) mg/dL 8.2 L HPI <Daren Chiang MD - Last Filed: 06/07/19 20:01> General Mode of arrival: EMS . Date/Time Provider Initiated Documentation: 06/07/19 06:58 . Limitations to Documentation: no limitations . Information obtained by: patient, RN notes reviewed and old records reviewed . HPI Narrative: Patient presents to the ED with complaint of throat pain and difficulty swallowing. He was seen here last week for same and started on Carafate. He is now reporting that his pain is worse. Swallowing is getting harder and harder. Sometimes he feels like he cannot catch his breath. He does have some postnasal drip. He otherwise denies URI type symptoms. He has had no fever. He has intermittent abdominal pain and constipation but that is not changed or worse. Is not having chest pain or shortness of breath per se. It is mostly just pain and difficulty swallowing. Related Data Home Medications Medication Instructions Recorded Confirmed Factery Advantage kit 10/15/17 05/30/19 albuterol sulfate 2.5 mg INHALATION Q4H PRN PRN 30 10/15/17 05/30/19 Days ml Symbicort 10.2 gm INHALATION BID #3 inhaler 09/21/18 05/30/19 tiotropium bromide 18 mcg capsule 1 cap INHALATION DAILY #90 inh 09/26/18 05/30/19 with inhalation device fluoxetine 20 mg tablet 20 mg PO DAILY #90 tab-cap 10/02/18 05/30/19 mirtazapine 15 mg tablet 15 mg PO HS #30 tab 12/12/18 05/30/19 clonazepam 0.5 mg tablet 0.5 mg PO BID PRN 12/19/18 05/30/19 albuterol sulfate 90 mcg/actuation 2 puff INHALATION Q4H PRN PRN #1 01/03/19 05/30/19 aerosol inhaler inh polyethylene glycol 3350 17 17 gm PO DAILY PRN #850 gm 01/11/19 05/30/19 gram/dose oral powder bisacodyl 10 mg rectal suppository 10 mg NC DAILY PRN #8 each 01/30/19 05/30/19 pantoprazole 40 mg tablet,delayed 40 mg PO DAILY #90 tab 02/08/19 05/30/19 release calcium carbonate 500 mg calcium 500 mg PO BID #180 tab 02/19/19 05/30/19 (1,250 mg) tablet cholecalciferol (vitamin D3) 25 1,000 unit PO DAILY #90 cap 02/19/19 05/30/19 mcg (1,000 unit) capsule hydroxyzine HCl 25 mg tablet 25 mg PO BID PRN #180 tab 02/20/19 05/30/19 apixaban 5 mg tablet 5 mg PO BID #180 tab 04/04/19 05/30/19 sennosides 8.6 mg-docusate sodium 1 tab PO BID #60 tab 04/04/19 05/30/19 50 mg tablet lubiprostone 24 mcg capsule 24 mcg PO DAILY #90 cap 04/24/19 05/30/19 docusate sodium [Colace] 100 mg PO BID #90 cap 04/28/19 05/30/19 sucralfate [Carafate] 5 ml PO TID #420 ml 05/30/19 Previous Rx's Medication Instructions Recorded [facility] Advantage kit 10/15/17 albuterol sulfate 2.5 mg INHALATION Q4H PRN PRN 30 10/15/17 Days ml Symbicort 10.2 gm INHALATION BID #3 inhaler 09/21/18 tiotropium bromide 18 mcg capsule 1 cap INHALATION DAILY #90 inh 09/26/18 with inhalation device fluoxetine 20 mg tablet 20 mg PO DAILY #90 tab-cap 10/02/18 mirtazapine 15 mg tablet 15 mg PO HS #30 tab 12/12/18 albuterol sulfate 90 mcg/actuation 2 puff INHALATION Q4H PRN PRN #1 01/03/19 aerosol inhaler inh polyethylene glycol 3350 17 17 gm PO DAILY PRN #850 gm 01/11/19 gram/dose oral powder bisacodyl 10 mg rectal suppository 10 mg NC DAILY PRN #8 each 01/30/19 pantoprazole 40 mg tablet,delayed 40 mg PO DAILY #90 tab 02/08/19 release calcium carbonate 500 mg calcium 500 mg PO BID #180 tab 02/19/19 (1,250 mg) tablet cholecalciferol (vitamin D3) 25 1,000 unit PO DAILY #90 cap 02/19/19 mcg (1,000 unit) capsule hydroxyzine HCl 25 mg tablet 25 mg PO BID PRN #180 tab 02/20/19 apixaban 5 mg tablet 5 mg PO BID #180 tab 04/04/19 sennosides 8.6 mg-docusate sodium 1 tab PO BID #60 tab 04/04/19 50 mg tablet lubiprostone 24 mcg capsule 24 mcg PO DAILY #90 cap 04/24/19 docusate sodium [Colace] 100 mg PO BID #90 cap 04/28/19 sucralfate [Carafate] 5 ml PO TID #420 ml 05/30/19 Allergies Allergy/AdvReac Type Severity Reaction Status Date / Time No Known Allergies Allergy Verified 05/30/19 07:42 General Stated Complaint: GenMedical FLASH: 3 Review of Systems <Daren Chiang MD - Last Filed: 06/07/19 20:01> Narrative: As documented in HPI otherwise negative as below. Const: no fever, chills, weakness Resp: no cough, SOB, pleuritic pain CV: no CP, diaphoresis, edema, syncope GI: abdominal pain and constipation; no nausea, vomiting, diarrhea Neuro: no headache, numbness, focal weakness, confusion PFSH <Daren Chiang MD - Last Filed: 06/07/19 20:01> Medical History Adjustment disorder with anxiety (Chronic) Alcohol abuse (Chronic) Anxiety (Chronic) COPD (chronic obstructive pulmonary disease) (Chronic) Dyspepsia (Chronic) Malignant neoplasm of right lung (Chronic) Tubular adenoma of colon (Inactive) Surgical History colonoscopy (Inactive 01/19/15) Also had a decompress colonoscopy with Dr Haresh Vásquez at [facility] on 06/09/18 for significant colon distention seen on CT scan, no prep done,therapeutic, diagnositc, still due for repeat on 01/19/25 History of lung biopsy (Resolved) History of surgery on upper extremity (Resolved) left Status post cataract extraction and insertion of intraocular lens of left eye (Chronic 11/05/18) Social History Smoking/Tobacco Use Status: Former Tobacco Use Quit Date: 06/05/98 Tobacco: How many years used: 30 Smokeless tobacco user: chewing tobacco Quit status: not considering quitting Alcohol Intake: former Drug use: Never Substance use type: does not use Details: Adopted: No Foster care: No Household members: other 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/12 Housing: apartment Number of Children: 0 Communication Needs: None Do you need help understanding health information?: Often current occupation: not working Current gender identity: male How often do you talk on the phone with friends or family?: three or more times per week Panel score (0-1 are the most socially isolated patients): 1 What type of physical activity do you participate in: none and other Details: started lifting weights Frequency: daily Seatbelt use: always Drive intox or ride w/intox driver license agent: No Water heater temp set <120 deg: Yes Working smoke detector in home: Yes Fire extinguisher in home: Yes Carbon monox detector in home: Yes Firearms in home: Yes Do you feel safe at home: Yes Do you feel safe in your relationship?: Yes Additional Social history: lives with parents. Exam <Daren Chiang MD - Last Filed: 06/07/19 20:01> Narrative Exam Narrative: Vitals: Afebrile. Normal vitals and room air pulse ox. Const: thin/cachetic male in NAD. HEENT: NC/AT. Normal facial exam. Unable to visualize TMs due to cerumen impaction. Slight clear nasal discharge present. Oral pharyngeal erythema posteriorly. No exudate, edema, ulcers. Eyes: Normal conjunctiva and sclera. Neck: Supple. Trachea midline. No adenopathy. Lungs: Normal respiratory effort. Lungs are clear. Cor: RRR without murmur/gallop. Neuro: A+O x 3. CN grossly in tact. Good strength and no focal deficit. Ext: No C/C/E. Skin: Warm and dry without rash. Course <Daren Chiang MD - Last Filed: 06/07/19 20:01> Vital Signs Vital signs: Vital Signs Temperature 97.5 F L 06/07/19 06:47 Pulse 78 06/07/19 06:47 Respiratory Rate 18 06/07/19 06:47 Blood Pressure 145/81 H 06/07/19 06:47 Pulse Oximetry 96 06/07/19 06:47 Temperature 97.5 F L 06/07/19 06:47 Temperature Source Skin 06/07/19 06:47 Pulse 78 06/07/19 06:47 Respiratory Rate 18 06/07/19 06:47 Respiratory Effort 06/07/19 06:50 Blood Pressure 145/81 H 06/07/19 06:47 Pulse Oximetry 96 01/03/20 06:47 Oxygen Delivery Method Room Air 06/07/19 06:47 Oxygen Flow Rate 0 06/07/19 06:47 Pain Level 9 06/07/19 06:47 Comment 06/07/19 06:47 Sign Out <Daren Chiang MD - Last Filed: 06/07/19 20:01> Sign Out Data: Sign Out Comment: pending ct neck results Last updated by Daren Chiang MD at 06/07/19 07:55
[2019-06-07 07:37] LABS: Abs Immature Grans 0.02 k/cumm (0.0-0.09); Absolute Basophil Count 0.02 k/cumm (0.0-0.2); Absolute Eosinophil Count 0.04 k/cumm (0.0-0.7); Absolute Lymphocyte Count 0.84 k/cumm (1.2-3.4); Absolute Monocyte Count 0.44 k/cumm (0.11-0.7); Absolute Neutrophil Count 2.32 k/cumm (1.2-6.7); Basophils % 0.5; Eosinophils % 1.1; HGB 13.9 g/dL (13.5-17.5); Immature Grans % 0.5 %; Lymphocytes % 22.8; Mean Corp. HGB Concentration 33.9 g/dL (32.0-36.0); Mean Corpuscular Volume 88.6 fL (80-95); Mean Platelet Volume 10.1 fL (8.0-11.0); Neutrophils % 63.1; Platelet Count 234 x1000/uL (130-400); RBC 4.63 m/cumm (4.50-6.00); RBC Distribution Width 12.2 % (11.8-14.1); White Blood Cell Count 3.68 k/cumm (4.4-10.8)
[2019-06-07 07:40] LABS: BUN 12 mg/dL (7-18); CREATININE 1.14 mg/dL (0.70-1.30); Calcium 8.2 mg/dL (8.5-10.1); Chloride 107 mmol/L (98-107); Glucose 101 mg/dL (74-106); Sodium 143 mmol/L (136-145)
[2019-06-07] MEDS: Normal Saline 1,000 ML 150 ML IV (07:40)
[2019-06-07] MEDS: Normal Saline Flush 10 ML SYR IVP (07:40)
[2019-06-07] MEDS: Omnipaque 350 MG/ML 100 ML BTL IJ (08:13)
--- NOTE | 2019-06-07 08:14 | DI.CT_ITS ---
EXAM: CT NECK W CLINICAL HISTORY: increasing throat pain/difficulty swallowing TECHNIQUE: CT examination of the cervical region was performed with intravenous infusion of 100 cc o f Omnipaque 350. COMPARISON: HEAD NECK FACIAL WO from 11/18/2016 XR CHEST 2V PA LATERAL from 05/13/2019 FINDINGS: Patient has a known right upper lobe lung carcinoma reportedly treated with radiotherapy. Visualized brain is unremarkable. No gross cervical mass or adenopathy. There is no evidence of a r etro pharyngeal abscess or mass. Note is made of some asymmetry of the supraglottic larynx, fat planes are asymmetric and although the re is no definite mass seen, the possibility of mucosal based lesion would have to be raised. Correl ation with laryngoscopy suggested. Larynx and trachea otherwise unremarkable in appearance. There is wall thickening of the esophagus t o the inferior margin of the scan field just below the level of the aortic arch. The right upper lob e spiculated mass corresponds to the known carcinoma on prior studies. No additional lesion identifi ed. No gross superior mediastinal adenopathy. No gross supraclavicular adenopathy. IMPRESSION: Known right upper lobe lung carcinoma, reportedly treated with radiotherapy. Wall thickening of the proximal 3rd of the esophagus, suspicion of esophagitis. Question asymmetry of mucosa and fat planes of supraglottic larynx, lesion at this site not excluded and correlation with laryngoscopy is recommended.
[2019-06-07 09:12] VITALS: BP 129/85; PULSE 64; RESP 18; TEMP 36.6; O2SAT 96
[2019-06-07 10:10] VITALS: BP 156/98; PULSE 65; RESP 20; TEMP 36.5; O2SAT 97
[2019-06-07 10:13] VITALS: BP 156/98; PULSE 65; RESP 20; TEMP 36.5; O2SAT 97
--- NOTE | 2019-06-08 10:14 | NUR.NOTE ---
referral and ED visit note sent to ENT [phone] Note:
== END 2019-06-07 10:20 | disposition home or self-care (01) ==
PROVIDERS: Emergency Medicine; Emergency Provider Physician Assistant; PCP Internal Medicine
DX: K20.9 Esophagitis, unspecified (principal); R09.89 Other specified symptoms and signs involving the circulatory and respiratory systems; R93.0 Abnormal findings on diagnostic imaging of skull and head, not elsewhere classified; C34.11 Malignant neoplasm of upper lobe, right bronchus or lung; J44.9 Chronic obstructive pulmonary disease, unspecified; Z87.891 Personal history of nicotine dependence
CPT/HCPCS: 36415; 70491; 80048; 96360; 96361; 99285; 85025; 99284; J3490

== ENCOUNTER 2019-06-17 06:07 | Emergency (ER) | payer MEDICARE, MEDICAID, SELFPAY ==
[2019-06-17 06:05] VITALS: BP 133/89; PULSE 71; RESP 18; TEMP 36.6; O2SAT 98
--- NOTE | 2019-06-17 06:19 | ED.GENADUL_ITS ---
Discharge Plan Disposition Patient Disposition: HOME Condition: Stable Discharge Details Chief Complaint: Nausea/Vomit/Diar Clinical Impression: Abdominal cramping Primary Care Provider: Deborah Chow ED Provider: Mj Chen Home Meds and New Rx's Prescriptions: Continued Spiriva with HandiHaler 18 mcg capsule, w/inhalation device 1 cap Inhalation DAILY Qty: 90 RF: 0 mirtazapine 15 mg tablet 15 mg PO HS Qty: 30 RF: 1 albuterol sulfate [ProAir HFA] 90 mcg/actuation HFA aerosol inhaler 2 puff Inhalation Q4H PRN PRN (Reason: Shortness Of Breath) Qty: 1 RF: 5 polyethylene glycol 3350 [Miralax] 17 gram/dose powder 17 gm PO DAILY PRN (Reason: constipation) Qty: 850 RF: 12 bisacodyl 10 mg suppository 10 mg NM DAILY PRN (Reason: constipation) Qty: 8 RF: 0 lubiprostone 24 mcg capsule 24 mcg PO DAILY Qty: 90 RF: 0 fluoxetine 20 mg tablet 20 mg PO DAILY Qty: 90 RF: 3 clonazepam [Klonopin] 0.5 mg tablet 0.5 mg PO BID PRNRF: 0 cholecalciferol (vitamin D3) 1,000 unit capsule 1,000 unit PO DAILY Qty: 90 RF: 3 calcium carbonate 500 mg calcium (1,250 mg) tablet 500 mg PO BID Qty: 180 RF: 3 hydroxyzine HCl 25 mg tablet 25 mg PO BID PRN (Reason: anxiety) Qty: 180 RF: 2 pantoprazole 40 mg tablet,delayed release (DR/EC) 40 mg PO DAILY Qty: 90 RF: 3 apixaban 5 mg tablet 5 mg PO BID Qty: 180 RF: 0 sennosides-docusate sodium [Senna-Time S] 8.6-50 mg tablet 1 tab PO BID Qty: 60 RF: 1 (DME) [employer] Advantage 1 EACH spacer 1 ea Miscellaneous DIRECTED RF: 0 albuterol sulfate 2.5 MG/3 ML solution for nebulization 2.5 mg Inhalation Q4H PRN PRN (Reason: Shortness Of Breath) 30 Days RF: 0 docusate sodium [Colace] 100 mg capsule 100 mg PO BID Qty: 90 RF: 0 Symbicort 10.2 GM HFA aerosol inhaler 10.2 gm Inhalation BID Qty: 3 RF: 3 sucralfate [Carafate] 100 mg/mL suspension 5 ml PO TID Qty: 420 RF: 1 Discharge Instructions Additional Instructions: try taking pepto bismol avoid fatty or greasy foods follow up with your primary care provider as scheduled Monday if you feel more ill, have high fevers or difficulty breathing return to the emergency department Medical Decision Making 64 yo male with multiple medical problems comes in with abdominal cramping. Has chronic abdominal pain but denies pain today just feels intermittent cramping. No vomit, fevers, diarrhea, new foods. He denies alcohol use. He has a soft abdomen with no tenderness on exam and no distention. Does have hyperactive bowel sounds on exam. Given his lack of any pain on exam do not feel any workup indicated at this time. Advised to try otc remedies and has f/u monday with pcp, return precautions given Differential Diagnosis Differential Diagnosis: gastroenteritis, chronic pain, gastritis Medical Records Medical records reviewed: Yes I reviewed the patient's medical records. HPI General Mode of arrival: EMS . Date/Time Provider Initiated Documentation: 06/17/19 06:09 . Limitations to Documentation: no limitations . Information obtained by: patient . History of Present Illness 64 year old M presents to the emergency department with the chief complaint of abdominal cramping , Patient started experiencing this day(s) (3) and it has been intermittent. No relieving factors improve symptom(s), No exacerbating factors reported . Patient did receive the following treatments prior to arrival, none Related Data Home Medications Medication Instructions Recorded Confirmed [facility] Advantage kit 10/15/17 05/30/19 albuterol sulfate 2.5 mg INHALATION Q4H PRN PRN 30 10/15/17 05/30/19 Days ml Symbicort 10.2 gm INHALATION BID #3 inhaler 09/21/18 05/30/19 tiotropium bromide 18 mcg capsule 1 cap INHALATION DAILY #90 inh 09/26/18 05/30/19 with inhalation device fluoxetine 20 mg tablet 20 mg PO DAILY #90 tab-cap 10/02/18 05/30/19 mirtazapine 15 mg tablet 15 mg PO HS #30 tab 12/12/18 05/30/19 clonazepam 0.5 mg tablet 0.5 mg PO BID PRN 12/19/18 05/30/19 albuterol sulfate 90 mcg/actuation 2 puff INHALATION Q4H PRN PRN #1 01/03/19 05/30/19 aerosol inhaler inh polyethylene glycol 3350 17 17 gm PO DAILY PRN #850 gm 01/11/19 05/30/19 gram/dose oral powder bisacodyl 10 mg rectal suppository 10 mg NM DAILY PRN #8 each 01/30/19 05/30/19 pantoprazole 40 mg tablet,delayed 40 mg PO DAILY #90 tab 02/08/19 05/30/19 release calcium carbonate 500 mg calcium 500 mg PO BID #180 tab 02/19/19 05/30/19 (1,250 mg) tablet cholecalciferol (vitamin D3) 25 1,000 unit PO DAILY #90 cap 02/19/19 05/30/19 mcg (1,000 unit) capsule hydroxyzine HCl 25 mg tablet 25 mg PO BID PRN #180 tab 02/20/19 05/30/19 apixaban 5 mg tablet 5 mg PO BID #180 tab 04/04/19 05/30/19 sennosides 8.6 mg-docusate sodium 1 tab PO BID #60 tab 04/04/19 05/30/19 50 mg tablet lubiprostone 24 mcg capsule 24 mcg PO DAILY #90 cap 04/24/19 05/30/19 docusate sodium [Colace] 100 mg PO BID #90 cap 04/28/19 05/30/19 sucralfate [Carafate] 5 ml PO TID #420 ml 05/30/19 Previous Rx's Medication Instructions Recorded [facility] Advantage kit 10/15/17 albuterol sulfate 2.5 mg INHALATION Q4H PRN PRN 30 10/15/17 Days ml Symbicort 10.2 gm INHALATION BID #3 inhaler 09/21/18 tiotropium bromide 18 mcg capsule 1 cap INHALATION DAILY #90 inh 09/26/18 with inhalation device fluoxetine 20 mg tablet 20 mg PO DAILY #90 tab-cap 10/02/18 mirtazapine 15 mg tablet 15 mg PO HS #30 tab 12/12/18 albuterol sulfate 90 mcg/actuation 2 puff INHALATION Q4H PRN PRN #1 01/03/19 aerosol inhaler inh polyethylene glycol 3350 17 17 gm PO DAILY PRN #850 gm 01/11/19 gram/dose oral powder bisacodyl 10 mg rectal suppository 10 mg NM DAILY PRN #8 each 01/30/19 pantoprazole 40 mg tablet,delayed 40 mg PO DAILY #90 tab 02/08/19 release calcium carbonate 500 mg calcium 500 mg PO BID #180 tab 02/19/19 (1,250 mg) tablet cholecalciferol (vitamin D3) 25 1,000 unit PO DAILY #90 cap 02/19/19 mcg (1,000 unit) capsule hydroxyzine HCl 25 mg tablet 25 mg PO BID PRN #180 tab 02/20/19 apixaban 5 mg tablet 5 mg PO BID #180 tab 04/04/19 sennosides 8.6 mg-docusate sodium 1 tab PO BID #60 tab 04/04/19 50 mg tablet lubiprostone 24 mcg capsule 24 mcg PO DAILY #90 cap 04/24/19 docusate sodium [Colace] 100 mg PO BID #90 cap 04/28/19 sucralfate [Carafate] 5 ml PO TID #420 ml 05/30/19 Allergies Allergy/AdvReac Type Severity Reaction Status Date / Time No Known Allergies Allergy Verified 06/17/19 06:08 General Stated Complaint: Nausea/Vomit/Diar FLASH: 4 Review of Systems All systems reviewed & are unremarkable except as noted in HPI and below Constitutional Constitutional: Denies chills, Denies fever(s) and Denies weakness Cardiovascular Cardiovascular: Denies chest pain and Denies dyspnea Respiratory Respiratory: Denies cough and Denies dyspnea Gastrointestinal Gastrointestinal: Denies vomiting Genitourinary Genitourinary: Denies dysuria Musculoskeletal Musculoskeletal: Denies joint swelling Neurologic Neurologic: Denies weakness [facility] Social History Smoking/Tobacco Use Status: Former Tobacco Use Quit Date: 06/05/98 Tobacco: How many years used: 30 Smokeless tobacco user: chewing tobacco Quit status: not considering quitting Alcohol Intake: former Drug use: Never Substance use type: does not use Details: Adopted: No Foster care: No 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 Housing: apartment Number of Children: 0 Communication Needs: None Do you need help understanding health information?: Often current occupation: not working Current gender identity: male How often do you talk on the phone with friends or family?: three or more times per week Panel score (0-1 are the most socially isolated patients): 1 What type of physical activity do you participate in: none and other Details: started lifting weights Frequency: daily Seatbelt use: always 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 Exam Const General: no acute distress Orientation: alert HENMT Head: normal to inspection Ears: external ears normal General nose exam: external nose normal Mouth: moist mucous membranes Eyes General: appearance normal, both eyes and all related structures Neck Neck: normal visual inspection Resp Effort & Inspection: normal respiratory effort and able to speak in complete sentences Cardio Rate: regular rate GI Palpation: soft and nontender Auscultation: hyperactive bowel sounds Skin General skin exam: no rashes or lesions noted Neuro General: alert and oriented x3 Extrem General: normal to inspection Psych Mental Status: mental status grossly normal Course Vital Signs Vital signs: Vital Signs Temperature 36.6 C 06/17/19 06:05 Pulse 71 06/17/19 06:05 Respiratory Rate 18 06/17/19 06:05 Blood Pressure 133/89 06/17/19 06:05 Pulse Oximetry 98 06/17/19 06:05 Temperature 36.6 C 06/17/19 06:05 Temperature Source Skin 06/17/19 06:05 Pulse 71 06/17/19 06:05 Respiratory Rate 18 06/17/19 06:05 Respiratory Effort Non-Labored 06/17/19 06:09 Blood Pressure 133/89 06/17/19 06:05 Pulse Oximetry 98 06/17/19 06:05 Oxygen Delivery Method Room Air 06/17/19 06:05 Oxygen Flow Rate 0 06/17/19 06:05 Pain Level 9 06/17/19 06:05
== END 2019-06-17 06:31 | disposition home or self-care (01) ==
LOC: ER 06:34
PROVIDERS: Emergency Provider Emergency Medicine; PCP Internal Medicine
DX: R10.9 Unspecified abdominal pain (principal)
CPT/HCPCS: 99283

== ENCOUNTER 2019-07-28 06:17 | Emergency (ER) | payer MEDICARE, MEDICAID, SELFPAY ==
[2019-07-28 06:12] VITALS: BP 144/88; PULSE 68; RESP 16; TEMP 36.6; O2SAT 100
--- NOTE | 2019-07-28 06:26 | ED.GENADUL_ITS ---
Discharge Plan Disposition Patient Disposition: HOME Condition: Stable Discharge Details Chief Complaint: SOB Clinical Impression: Anxiety Primary Care Provider: Deborah Chow ED Provider: Mj Chen Home Meds and New Rx's Prescriptions: New clonazepam [Klonopin] 0.5 mg tablet 0.5 mg PO BID Qty: 7 RF: 0 Continued Spiriva with HandiHaler 18 mcg capsule, w/inhalation device 1 cap Inhalation DAILY Qty: 90 RF: 0 mirtazapine 15 mg tablet 15 mg PO HS Qty: 30 RF: 1 albuterol sulfate [ProAir HFA] 90 mcg/actuation HFA aerosol inhaler 2 puff Inhalation Q4H PRN PRN (Reason: Shortness Of Breath) Qty: 1 RF: 5 polyethylene glycol 3350 [Miralax] 17 gram/dose powder 17 gm PO DAILY PRN (Reason: constipation) Qty: 850 RF: 12 bisacodyl 10 mg suppository 10 mg NE DAILY PRN (Reason: constipation) Qty: 8 RF: 0 lubiprostone 24 mcg capsule 24 mcg PO DAILY Qty: 90 RF: 0 fluoxetine 20 mg tablet 20 mg PO DAILY Qty: 90 RF: 3 clonazepam [Klonopin] 0.5 mg tablet 0.5 mg PO BID PRNRF: 0 cholecalciferol (vitamin D3) 1,000 unit capsule 1,000 unit PO DAILY Qty: 90 RF: 3 calcium carbonate 500 mg calcium (1,250 mg) tablet 500 mg PO BID Qty: 180 RF: 3 hydroxyzine HCl 25 mg tablet 25 mg PO BID PRN (Reason: anxiety) Qty: 180 RF: 2 pantoprazole 40 mg tablet,delayed release (DR/EC) 40 mg PO DAILY Qty: 90 RF: 3 apixaban 5 mg tablet 5 mg PO BID Qty: 180 RF: 3 sennosides-docusate sodium [Senna-Time S] 8.6-50 mg tablet 1 tab PO BID Qty: 180 RF: 3 (DME) [employer] Advantage 1 EACH spacer 1 ea Miscellaneous DIRECTED RF: 0 albuterol sulfate 2.5 MG/3 ML solution for nebulization 2.5 mg Inhalation Q4H PRN PRN (Reason: Shortness Of Breath) 30 Days RF: 0 docusate sodium [Colace] 100 mg capsule 100 mg PO BID Qty: 90 RF: 0 Symbicort 10.2 GM HFA aerosol inhaler 10.2 gm Inhalation BID Qty: 3 RF: 3 sucralfate [Carafate] 100 mg/mL suspension 5 ml PO TID Qty: 420 RF: 1 Discharge Instructions Additional Instructions: Your symptoms are likely from anxiety and being off your klonopin follow up with your primary care provider within 1-2 weeks if you feel more ill, have severe pain or worsening breathing return to the emergency department Medical Decision Making 64 yo male with hx of anxiety, copd, who comes in complaining he feels anxious. he has not had his klonopin for several days due to some issue with his prescription per the patient and can't refill it until Monday. He woke up feeling short of breath and anxious, shortness of breath resolves but still feels anxious. No si/hi. Has no deficits on neuro exam, NIH of 0, normal lung sounds and no murmurs and no abdominal tenderness. Suspect his symptoms are due to his anxiety and less likely klonopin withdrawal. Will provide script to bridge him until Monday and advised f/u with pcp and return precautions given Differential Diagnosis Differential Diagnosis: anxiety, copd, klonopin withdrawal Medical Records Medical records reviewed: Yes I reviewed the patient's medical records. HPI General Mode of arrival: ambulatory . Date/Time Provider Initiated Documentation: 07/28/19 06:18 . Limitations to Documentation: no limitations . Information obtained by: patient . History of Present Illness 64 year old M presents to the emergency department with the chief complaint of anxious, described as moderate, and it has been constant. No relieving factors improve symptom(s), No exacerbating factors reported . Related Data Home Medications Medication Instructions Recorded [facility] 10/15/17 06/26/19 albuterol sulfate 2.5 mg INHALATION Q4H PRN PRN 30 10/15/17 06/26/19 Days ml Symbicort 10.2 gm INHALATION BID #3 inhaler 09/21/18 06/26/19 tiotropium bromide 18 mcg capsule 1 cap INHALATION DAILY #90 inh 09/26/18 06/26/19 with inhalation device fluoxetine 20 mg tablet 20 mg PO DAILY #90 tab-cap 10/02/18 06/26/19 mirtazapine 15 mg tablet 15 mg PO HS #30 tab 12/12/18 06/26/19 clonazepam 0.5 mg tablet 0.5 mg PO BID PRN 12/19/18 06/26/19 albuterol sulfate 90 mcg/actuation 2 puff INHALATION Q4H PRN PRN #1 01/03/19 06/26/19 aerosol inhaler inh polyethylene glycol 3350 17 17 gm PO DAILY PRN #850 gm 01/11/19 06/26/19 gram/dose oral powder bisacodyl 10 mg rectal suppository 10 mg NE DAILY PRN #8 each 01/30/19 06/26/19 pantoprazole 40 mg tablet,delayed 40 mg PO DAILY #90 tab 02/08/19 06/26/19 release calcium carbonate 500 mg calcium 500 mg PO BID #180 tab 02/19/19 06/26/19 (1,250 mg) tablet cholecalciferol (vitamin D3) 25 1,000 unit PO DAILY #90 cap 02/19/19 06/26/19 mcg (1,000 unit) capsule hydroxyzine HCl 25 mg tablet 25 mg PO BID PRN #180 tab 02/20/19 06/26/19 lubiprostone 24 mcg capsule 24 mcg PO DAILY #90 cap 04/24/19 06/26/19 docusate sodium [Colace] 100 mg PO BID #90 cap 04/28/19 06/26/19 sucralfate [Carafate] 5 ml PO TID #420 ml 05/30/19 06/26/19 apixaban 5 mg tablet 5 mg PO BID #180 tab 06/26/19 sennosides 8.6 mg-docusate sodium 1 tab PO BID #180 tab 06/26/19 50 mg tablet clonazepam [Klonopin] 0.5 mg PO BID #7 tab 07/28/19 Previous Rx's Medication Instructions [facility] 10/15/17 albuterol sulfate 2.5 mg INHALATION Q4H PRN PRN 30 10/15/17 Days ml Symbicort 10.2 gm INHALATION BID #3 inhaler 09/21/18 tiotropium bromide 18 mcg capsule 1 cap INHALATION DAILY #90 inh 09/26/18 with inhalation device fluoxetine 20 mg tablet 20 mg PO DAILY #90 tab-cap 10/02/18 mirtazapine 15 mg tablet 15 mg PO HS #30 tab 12/12/18 albuterol sulfate 90 mcg/actuation 2 puff INHALATION Q4H PRN PRN #1 01/03/19 aerosol inhaler inh polyethylene glycol 3350 17 17 gm PO DAILY PRN #850 gm 01/11/19 gram/dose oral powder bisacodyl 10 mg rectal suppository 10 mg NE DAILY PRN #8 each 01/30/19 pantoprazole 40 mg tablet,delayed 40 mg PO DAILY #90 tab 02/08/19 release calcium carbonate 500 mg calcium 500 mg PO BID #180 tab 02/19/19 (1,250 mg) tablet cholecalciferol (vitamin D3) 25 1,000 unit PO DAILY #90 cap 02/19/19 mcg (1,000 unit) capsule hydroxyzine HCl 25 mg tablet 25 mg PO BID PRN #180 tab 02/20/19 lubiprostone 24 mcg capsule 24 mcg PO DAILY #90 cap 04/24/19 docusate sodium [Colace] 100 mg PO BID #90 cap 04/28/19 sucralfate [Carafate] 5 ml PO TID #420 ml 05/30/19 apixaban 5 mg tablet 5 mg PO BID #180 tab 06/26/19 sennosides 8.6 mg-docusate sodium 1 tab PO BID #180 tab 06/26/19 50 mg tablet clonazepam [Klonopin] 0.5 mg PO BID #7 tab 07/28/19 Allergies Allergy/AdvReac Type Severity Reaction Status Date / Time No Known Allergies Allergy Verified 07/28/19 06:25 General Stated Complaint: SOB FLASH: 3 Review of Systems All systems reviewed & are unremarkable except as noted in HPI and below Constitutional Constitutional: Denies chills and Denies fever(s) Cardiovascular Cardiovascular: Denies chest pain Respiratory Respiratory: Denies cough Gastrointestinal Gastrointestinal: Denies abdominal pain, Denies nausea and Denies vomiting Musculoskeletal Musculoskeletal: Denies joint swelling Psychiatric Psychiatric: Denies depression [facility] Social History Smoking/Tobacco Use Status: Former Tobacco Use Quit Date: 06/05/98 Tobacco: How many years used: 30 Smokeless tobacco user: chewing tobacco Quit status: not considering quitting Alcohol Intake: former Drug use: Never Substance use type: does not use Details: Adopted: No Foster care: No 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 Housing: apartment Number of Children: 0 Communication Needs: None Do you need help understanding health information?: Often current occupation: not working Current gender identity: male How often do you talk on the phone with friends or family?: three or more times per week Panel score (0-1 are the most socially isolated patients): 1 What type of physical activity do you participate in: none and other Details: started lifting weights Frequency: daily Seatbelt use: always Drive 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 Exam Const General: no acute distress Orientation: alert HENMT Head: normal to inspection Ears: external ears normal General nose exam: external nose normal Mouth: moist mucous membranes Eyes General: appearance normal, both eyes and all related structures Neck Neck: normal visual inspection Resp Effort & Inspection: normal respiratory effort and able to speak in complete sentences Cardio Rate: regular rate Skin General skin exam: no rashes or lesions noted Neuro General: alert and oriented x3 Extrem General: normal to inspection Psych Mental Status: mental status grossly normal Course Vital Signs Vital signs: Vital Signs Temperature 36.6 C 07/28/19 06:12 Pulse 68 07/28/19 06:12 Respiratory Rate 16 07/28/19 06:12 Blood Pressure 144/88 H 07/28/19 06:12 Pulse Oximetry 100 07/28/19 06:12 Temperature 36.6 C 07/28/19 06:12 Temperature Source Temporal Artery Scan 07/28/19 06:12 Pulse 68 07/28/19 06:12 Respiratory Rate 16 07/28/19 06:12 Respiratory Effort Non-Labored 07/28/19 06:16 Respiratory Depth Normal 07/28/19 06:16 Respiratory Pattern Normal 07/28/19 06:16 Blood Pressure 144/88 H 07/28/19 06:12 Pulse Oximetry 100 07/28/19 06:12 Oxygen Delivery Method Room Air 07/28/19 06:12 Oxygen Flow Rate 0 07/28/19 06:12 Pain Level 0 07/28/19 06:16
[2019-07-28] MEDS: clonazePAM 0.5 MG TAB PO (06:36)
== END 2019-07-28 06:40 | disposition home or self-care (01) ==
LOC: ER 06:37
PROVIDERS: Emergency Provider Emergency Medicine; PCP Internal Medicine
DX: R06.02 Shortness of breath (principal); F41.9 Anxiety disorder, unspecified; J44.9 Chronic obstructive pulmonary disease, unspecified; Z87.891 Personal history of nicotine dependence
CPT/HCPCS: 99283

== ENCOUNTER 2019-07-29 14:44 | Emergency (ER) | payer MEDICARE, MEDICAID, SELFPAY ==
[2019-07-29 15:02] VITALS: BP 124/96; PULSE 60; RESP 18; TEMP 36.8; O2SAT 97
[2019-07-29 15:09] VITALS: RESP 22
--- NOTE | 2019-07-29 15:23 | W.ED.GENAD ---
Discharge Plan Disposition Patient Disposition: HOME Condition: Stable Discharge Details Chief Complaint: SOB Clinical Impression: Anxiety Primary Care Provider: Deborah Chow ED Provider: Alison Resendiz Home Meds and New Rx's Prescriptions: Continued Spiriva with HandiHaler 18 mcg capsule, w/inhalation device 1 cap Inhalation DAILY Qty: 90 RF: 0 mirtazapine 15 mg tablet 15 mg PO HS Qty: 30 RF: 1 albuterol sulfate [ProAir HFA] 90 mcg/actuation HFA aerosol inhaler 2 puff Inhalation Q4H PRN PRN (Reason: Shortness Of Breath) Qty: 1 RF: 5 polyethylene glycol 3350 [Miralax] 17 gram/dose powder 17 gm PO DAILY PRN (Reason: constipation) Qty: 850 RF: 12 bisacodyl 10 mg suppository 10 mg NH DAILY PRN (Reason: constipation) Qty: 8 RF: 0 lubiprostone 24 mcg capsule 24 mcg PO DAILY Qty: 90 RF: 0 fluoxetine 20 mg tablet 20 mg PO DAILY Qty: 90 RF: 3 clonazepam [Klonopin] 0.5 mg tablet 0.5 mg PO BID PRNRF: 0 cholecalciferol (vitamin D3) 1,000 unit capsule 1,000 unit PO DAILY Qty: 90 RF: 3 calcium carbonate 500 mg calcium (1,250 mg) tablet 500 mg PO BID Qty: 180 RF: 3 hydroxyzine HCl 25 mg tablet 25 mg PO BID PRN (Reason: anxiety) Qty: 180 RF: 2 pantoprazole 40 mg tablet,delayed release (DR/EC) 40 mg PO DAILY Qty: 90 RF: 3 apixaban 5 mg tablet 5 mg PO BID Qty: 180 RF: 3 sennosides-docusate sodium [Senna-Time S] 8.6-50 mg tablet 1 tab PO BID Qty: 180 RF: 3 (DME) [employer] Advantage 1 EACH spacer 1 ea Miscellaneous DIRECTED RF: 0 albuterol sulfate 2.5 MG/3 ML solution for nebulization 2.5 mg Inhalation Q4H PRN PRN (Reason: Shortness Of Breath) 30 Days RF: 0 docusate sodium [Colace] 100 mg capsule 100 mg PO BID Qty: 90 RF: 0 budesonide-formoterol [Symbicort] 10.2 GM HFA aerosol inhaler 10.2 gm Inhalation BID Qty: 3 RF: 3 sucralfate [Carafate] 100 mg/mL suspension 5 ml PO TID Qty: 420 RF: 1 clonazepam [Klonopin] 0.5 mg tablet 0.5 mg PO BID Qty: 7 RF: 0 Discharge Instructions Instructions: Anxiety (ED) Additional Instructions: Go directly to the pharmacy to fill your prescriptions for the hydroxyzine and clonazepam today. Follow-up with your scheduled appointment with your primary care doctor tomorrow. Return to the emergency department if you develop any worsening or concerning symptoms. Discharge Data Discharge Date/Time-TO BE ENTERED AT DEPARTURE: 07/29/19 17:14 Discharge Physician: Alison Resendiz Medical Decision Making 64yoM well-known to the emergency department with a history of anxiety, pancreatitis, alcohol abuse, lung cancer, COPD presents with shortness of breath at home today. Patient states he suddenly feels short of breath at random. He denies any headache, chest pain, abdominal pain, vomiting or dizziness. He states he ran out of his clonazepam and hydroxyzine 1 week ago and is unable to refill these medications until Monday. Patient was seen here yesterday for the same complaint and diagnosed with anxiety and given clonazepam prescription for home. He states he is planning on going to the pharmacy today to get some of his refills. EKG on arrival notes a rate of 80, sinus, no acute ST ischemic changes. Patient was given a dose of his clonazepam and hydroxyzine. He was able to ambulate around the ED and oxygen saturation remained 95% or above. He denied any complaint of chest pain. He states his symptoms improved and he felt good to go home. 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 He has an appointMENT with his primary care doctor tomorrow which she is advised to keep for follow-up. Usual and customary return precautions given prior to discharge. Medical Records Medical records reviewed: Yes I reviewed the patient's medical records. ECG Data Attestation: I personally reviewed and interpreted this ECG (s) as follows: Interpretation: Rate of 80, sinus, no acute ST elevation or depression. NH 154. QTc 427. QRS 84. HPI General Mode of arrival: ambulatory. Date/Time Provider Initiated Documentation: 07/29/19 14:54. Limitations to Documentation: no limitations. Information obtained by: patient. History of Present Illness 64 year old M presents to the emergency department with the chief complaint of shortness of breath; has not had his hydroxyzine or clonazepam for 1 week, and it has been intermittent. No relieving factors improve symptom(s), No exacerbating factors reported . Patient notes shortness of breath; denies confusion, chest pain, cough, diaphoresis, fever/chills, headaches, loss of appetite, malaise, nausea/vomiting, rash, seizure, syncope and weakness. Patient did receive the following treatments prior to arrival, none Related Data Home Medications Medication Instructions Recorded [facility] 10/15/17 06/26/19 albuterol sulfate 2.5 mg INHALATION Q4H PRN PRN 30 10/15/17 07/29/19 Days ml budesonide-formoterol [Symbicort] 10.2 gm INHALATION BID #3 inhaler 09/21/18 07/29/19 tiotropium bromide 18 mcg capsule 1 cap INHALATION DAILY #90 inh 09/26/18 07/29/19 with inhalation device fluoxetine 20 mg tablet 20 mg PO DAILY #90 tab-cap 10/02/18 07/29/19 mirtazapine 15 mg tablet 15 mg PO HS #30 tab 12/12/18 07/29/19 clonazepam 0.5 mg tablet 0.5 mg PO BID PRN 12/19/18 07/29/19 albuterol sulfate 90 mcg/actuation 2 puff INHALATION Q4H PRN PRN #1 01/03/19 07/29/19 aerosol inhaler inh polyethylene glycol 3350 17 17 gm PO DAILY PRN #850 gm 01/11/19 07/29/19 gram/dose oral powder bisacodyl 10 mg rectal suppository 10 mg NH DAILY PRN #8 each 01/30/19 07/29/19 pantoprazole 40 mg tablet,delayed 40 mg PO DAILY #90 tab 02/08/19 07/29/19 release calcium carbonate 500 mg calcium 500 mg PO BID #180 tab 02/19/19 07/29/19 (1,250 mg) tablet cholecalciferol (vitamin D3) 25 1,000 unit PO DAILY #90 cap 02/19/19 07/29/19 mcg (1,000 unit) capsule hydroxyzine HCl 25 mg tablet 25 mg PO BID PRN #180 tab 02/20/19 07/29/19 lubiprostone 24 mcg capsule 24 mcg PO DAILY #90 cap 04/24/19 07/29/19 docusate sodium [Colace] 100 mg PO BID #90 cap 04/28/19 07/29/19 sucralfate [Carafate] 5 ml PO TID #420 ml 05/30/19 07/29/19 apixaban 5 mg tablet 5 mg PO BID #180 tab 06/26/19 07/29/19 sennosides 8.6 mg-docusate sodium 1 tab PO BID #180 tab 06/26/19 07/29/19 50 mg tablet clonazepam [Klonopin] 0.5 mg PO BID #7 tab 07/28/19 07/29/19 Previous Rx's Medication Instructions [facility] 10[facility]15/17 albuterol sulfate 2.5 mg INHALATION Q4H PRN PRN 30 10/15/17 Days ml budesonide-formoterol [Symbicort] 10.2 gm INHALATION BID #3 inhaler 09/21/18 tiotropium bromide 18 mcg capsule 1 cap INHALATION DAILY #90 inh 09/26/18 with inhalation device fluoxetine 20 mg tablet 20 mg PO DAILY #90 tab-cap 10/02/18 mirtazapine 15 mg tablet 15 mg PO HS #30 tab 12/12/18 albuterol sulfate 90 mcg/actuation 2 puff INHALATION Q4H PRN PRN #1 01/03/19 aerosol inhaler inh polyethylene glycol 3350 17 17 gm PO DAILY PRN #850 gm 01/11/19 gram/dose oral powder bisacodyl 10 mg rectal suppository 10 mg NH DAILY PRN #8 each 01/30/19 pantoprazole 40 mg tablet,delayed 40 mg PO DAILY #90 tab 02/08/19 release calcium carbonate 500 mg calcium 500 mg PO BID #180 tab 02/19/19 (1,250 mg) tablet cholecalciferol (vitamin D3) 25 1,000 unit PO DAILY #90 cap 02/19/19 mcg (1,000 unit) capsule hydroxyzine HCl 25 mg tablet 25 mg PO BID PRN #180 tab 02/20/19 lubiprostone 24 mcg capsule 24 mcg PO DAILY #90 cap 04/24/19 docusate sodium [Colace] 100 mg PO BID #90 cap 04/28/19 sucralfate [Carafate] 5 ml PO TID #420 ml 05/30/19 apixaban 5 mg tablet 5 mg PO BID #180 tab 06/26/19 sennosides 8.6 mg-docusate sodium 1 tab PO BID #180 tab 06/26/19 50 mg tablet clonazepam [Klonopin] 0.5 mg PO BID #7 tab 07/28/19 Allergies Allergy/AdvReac Type Severity Reaction Status Date / Time No Known Allergies Allergy Verified 07/29/19 15:05 General Stated Complaint: SOB FLASH: 3 Review of Systems All systems reviewed & are unremarkable except as noted in HPI and below Constitutional Constitutional: Reports as per HPI, Denies chills and Denies fever(s) Eyes Eyes: Denies blurry vision ENT Ears, Nose, Mouth, and Throat: Denies dizziness, Denies sore throat and Denies throat swelling Cardiovascular Cardiovascular: Denies chest pain and Reports dyspnea Respiratory Respiratory: Denies cough and Reports dyspnea Gastrointestinal Gastrointestinal: Denies abdominal pain, Denies diarrhea and Denies vomiting Genitourinary Genitourinary: Denies hematuria and Denies dysuria Musculoskeletal Musculoskeletal: Denies back pain and Denies numbness Integumentary/Breasts Skin/Breast: Denies lesions and Denies rash Neurologic Neurologic: Denies dizziness, Denies focal weakness and Denies numbness Allergic/Immunologic Allergic/Immunologic: Denies throat swelling [facility] Medical History Adjustment disorder with anxiety (Chronic) Alcohol abuse (Chronic) Anxiety (Chronic) COPD (chronic obstructive pulmonary disease) (Chronic) Dyspepsia (Chronic) Malignant neoplasm of right lung (Chronic) Tubular adenoma of colon (Inactive) Surgical History colonoscopy (Inactive 01/19/15) Also had a decompress colonoscopy with Dr Haresh Vásquez at [facility] on 06/09/18 for significant colon distention seen on CT scan, no prep done,therapeutic, diagnositc, still due for repeat on 01/19/25 History of lung biopsy (Resolved) History of surgery on upper extremity (Resolved) left Status post cataract extraction and insertion of intraocular lens of left eye (Chronic 11/05/18) Family History Father Essential hypertension Hyperlipidemia Paternal Uncle Heart disease Stroke Cerebral hemorrhage Hypertension Brother Cancer head and neck cancer - smoker Social History Smoking/Tobacco Use Status: Former Tobacco Use Quit Date: 06/05/98 Tobacco: How many years used: 30 Smokeless tobacco user: chewing tobacco Quit status: not considering quitting Alcohol Intake: former Drug use: Never Substance use type: does not use Details: Adopted: No Foster care: No Household members: other 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 Housing: apartment Number of Children: 0 Communication Needs: None Do you need help understanding health information?: Often current occupation: not working Current gender identity: male How often do you talk on the phone with friends or family?: three or more times per week Panel score (0-1 are the most socially isolated patients): 1 What type of physical activity do you participate in: none and other Details: started lifting weights Frequency: daily Seatbelt use: always Drive intox or ride w/intox tank wagon 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 Exam Const General: cooperative, healthy appearing and no acute distress HENMT Head: normal to inspection Face and sinus: normal facial exam Eyes General: appearance normal, both eyes and all related structures Pupils: PERRL EOM: EOM intact bilaterally Neck Neck: normal visual inspection and No submandibular swelling Lymphatic: no lymphadenopathy noted Chest Chest: normal inspection of the chest and no tenderness Resp Effort & Inspection: normal respiratory effort and able to speak in complete sentences Auscultation: clear to auscultation bilaterally Cardio Rate: regular rate Rhythm: regular rhythm GI Inspection: normal to inspection Palpation: soft, not firm, not rigid and nontender Auscultation: normal bowel sounds Male General Exam: Yes normal external exam Back/Spine/Pelvis Thoracic/Lumbar Spine: thoracic and lumbar spine normal to inspection Pelvis: no pain with anterior-posterior compression Skin General skin exam: no rashes or lesions noted Neuro General: alert, awake and oriented x3 Cognition: normal cognition Speech: speech normal Motor: muscle tone normal throughout Sensory Exam: no sensory deficits noted Extrem General: normal to inspection, full ROM, normal capillary refill, no calf tenderness bilaterally and no edema Psych Appearance: grossly normal Mental Status: mental status grossly normal Speech and Movement: speech and movement normal Affect: normal affect Course Vital Signs Vital signs: Vital Signs Temperature 98.2 F 07/29/19 15:02 Pulse 60 07/29/19 15:02 Respiratory Rate 18 07/29/19 15:02 Blood Pressure 124/96 H 07/29/19 15:02 Pulse Oximetry 97 07/29/19 15:02 Temperature 98.2 F 07/29/19 15:02 Temperature Source Skin 07/29/19 15:02 Pulse 60 07/29/19 15:02 Respiratory Rate 22 07/29/19 15:09 Respiratory Effort Non-Labored 07/29/19 15:09 Respiratory Depth Normal 07/29/19 15:09 Respiratory Pattern Normal 07/29/19 15:09 Blood Pressure 124/96 H 07/29/19 15:02 Blood Pressure Position Supine 07/29/19 15:02 Pulse Oximetry 97 07/29/19 15:02 Oxygen Delivery Method Room Air 07/29/19 15:02 Oxygen Flow Rate 0 07/29/19 15:02 Pain Level 7 07/29/19 15:02 Comment 07/29/19 15:02
[2019-07-29] MEDS: clonazePAM 0.5 MG TAB PO ×2 (15:41→17:06)
[2019-07-29] MEDS: hydrOXYzine PAMOATE 25 MG CAP PO ×2 (15:42→17:06)
[2019-07-29 17:09] VITALS: BP 113/89; PULSE 70; RESP 17; TEMP 37.1; O2SAT 94
== END 2019-07-29 17:14 | disposition home or self-care (01) ==
PROVIDERS: Emergency Provider Physician Assistant; PCP Internal Medicine
DX: R06.02 Shortness of breath (principal); F43.22 Adjustment disorder with anxiety; T42.4X6A Underdosing of benzodiazepines, initial encounter; J44.9 Chronic obstructive pulmonary disease, unspecified; Z87.891 Personal history of nicotine dependence
CPT/HCPCS: 36415; 93005; 99284; 93010; 99283

== ENCOUNTER 2019-07-30 07:16 | Emergency (ER) | payer MEDICARE, MEDICAID, SELFPAY ==
[2019-07-30] VITALS (18 sets, daily range): BP systolic 114–135; BP diastolic 69–98; PULSE 60–82; RESP 13–24; TEMP 36.8; O2SAT 91–100
--- NOTE | 2019-07-30 07:24 | W.ED.GENAD ---
Discharge Plan Disposition Patient Disposition: HOME Condition: Good Discharge Details Chief Complaint: Abd Prob Clinical Impression: Adjustment disorder with anxiety, Anxiety, Chest wall pain, chronic Primary Care Provider: Deborah Chow ED Provider: Pedro Nichole Home Meds and New Rx's Prescriptions: No Action Spiriva with HandiHaler 18 mcg capsule, w/inhalation device 1 cap Inhalation DAILY Qty: 90 RF: 0 mirtazapine 15 mg tablet 15 mg PO HS Qty: 30 RF: 1 albuterol sulfate [ProAir HFA] 90 mcg/actuation HFA aerosol inhaler 2 puff Inhalation Q4H PRN PRN (Reason: Shortness Of Breath) Qty: 1 RF: 5 polyethylene glycol 3350 [Miralax] 17 gram/dose powder 17 gm PO DAILY PRN (Reason: constipation) Qty: 850 RF: 12 bisacodyl 10 mg suppository 10 mg VA DAILY PRN (Reason: constipation) Qty: 8 RF: 0 lubiprostone 24 mcg capsule 24 mcg PO DAILY Qty: 90 RF: 0 fluoxetine 20 mg tablet 20 mg PO DAILY Qty: 90 RF: 3 clonazepam [Klonopin] 0.5 mg tablet 0.5 mg PO BID PRNRF: 0 cholecalciferol (vitamin D3) 1,000 unit capsule 1,000 unit PO DAILY Qty: 90 RF: 3 calcium carbonate 500 mg calcium (1,250 mg) tablet 500 mg PO BID Qty: 180 RF: 3 hydroxyzine HCl 25 mg tablet 25 mg PO BID PRN (Reason: anxiety) Qty: 180 RF: 2 pantoprazole 40 mg tablet,delayed release (DR/EC) 40 mg PO DAILY Qty: 90 RF: 3 apixaban 5 mg tablet 5 mg PO BID Qty: 180 RF: 3 sennosides-docusate sodium [Senna-Time S] 8.6-50 mg tablet 1 tab PO BID Qty: 180 RF: 3 (DME) [employer] Advantage 1 EACH spacer 1 ea Miscellaneous DIRECTED RF: 0 albuterol sulfate 2.5 MG/3 ML solution for nebulization 2.5 mg Inhalation Q4H PRN PRN (Reason: Shortness Of Breath) 30 Days RF: 0 docusate sodium [Colace] 100 mg capsule 100 mg PO BID Qty: 90 RF: 0 budesonide-formoterol [Symbicort] 10.2 GM HFA aerosol inhaler 10.2 gm Inhalation BID Qty: 3 RF: 3 sucralfate [Carafate] 100 mg/mL suspension 5 ml PO TID Qty: 420 RF: 1 clonazepam [Klonopin] 0.5 mg tablet 0.5 mg PO BID Qty: 7 RF: 0 Discharge Instructions Instructions: Chronic Pain (ED), Anxiety (ED) Additional Instructions: Please go directly to your primary care provider's office with 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 If you notice any worsening of your symptoms, or any new symptoms such as vomiting, diarrhea, fever, chills, shortness of breath, chest pain, numbness, weakness, or fainting , please return immediately to the emergency department for reevaluation. Please follow up with your primary care provider as soon as possible for reassessment and reevaluation. As always, it was a pleasure participating in your medical care today. Referrals: Deborah Chow MD [Primary Care Provider] - Discharge Data Discharge Date/Time-TO BE ENTERED AT DEPARTURE: 07/30/19 09:23 Medical Decision Making <Daren Chiang MD - Last Filed: 07/30/19 20:22> Patient presenting with complaints of shortness of breath and abdominal pain. Both at this point are chronic intermittent complaints. Only mentions chest pain when directly questioned about it here. His parents are gone for the week and this typically sets off a pattern of anxiety and repeated ED visits. His EKG is unchanged from previous. His vital signs are completely normal. His exam is normal. I will go ahead and get a set of laboratory studies. We will also attempt to get the read on his PET scan done Monday. Will have care management see him. I agree with previous assessment that this is all anxiety related. PET scan read from [facility] shows that his previous right upper lobe mass is suggestive of postradiation changes in the right upper lobe. There is no increase metabolic activity anywhere else. There are no significant noncontrast CT findings. Care discussed with and patient signed out to Dr. Nichole. Medical Records Medical records reviewed: Yes I reviewed the patient's medical records. Lab Data Lab results reviewed: Yes I reviewed the patient's lab results. ECG Data Attestation: I personally reviewed and interpreted this ECG (s) as follows: Prior ECG tracings: available for review Interpretation: Sinus rhythm at 75. Normal axis and intervals. Nonspecific ST changes which are unchanged from previous. <Pedro Nichole DO - Last Filed: 07/30/19 09:09> Patient was signed out to me by my colleague Dr. Daren Chiang, please refer to his initial documentation, assessment and plan. Patient was signed out pending labs. Laboratory work-up is returned, no significant abnormality is noted, the patient remains hemodynamically stable with no current clinical signs of acute life-threatening illness. Calcium is slightly low at 7.9, bilirubin is 1.3 which is notably consistent with prior levels. No transaminitis. Troponin is normal, EKG is not consistent with STEMI. Patient shows no signs of clinical obstruction, respiratory distress, or ACS whatsoever at this time. His pharmacy was contacted, and does appear that he picked up his prescribed Klonopin yesterday. Currently his family is out of town, which unfortunately I feel is a notable component to his current 3 visits in the last 48 hours. Of note his PET scan results were reviewed from [facility], there does not appear to be any significant worsening of his chest lesion. No signs of new metastases. However it does continue to require close follow-up with his PCP. At this time I do feel that with no evidence of acute life-threatening illness or etiology and the majority of his symptoms being related to his chronic symptoms in conjunction with a very mild and understandable anxiety with his family being gone, I do feel that he is stable for discharge. We have elected the help of case management and the patient's care team. The patient does have an appointment with his primary care provider today at 10:30 which is in an hour and a half from now. The patient will be walked over to the clinic office for his appointment for continued close follow-up and management. I have extensively reviewed the treatment plan and discharge instructions with the patient. I have addressed all patient concerns at this time. The patient was made aware of what symptoms to monitor for that would warrant a return to the emergency department. Discussed the plan with the patient, they demonstrate verbal understanding and agreement with our assessment and plan at this time. HPI <Daren Chiang MD - Last Filed: 07/30/19 20:22> General Mode of arrival: EMS. Date/Time Provider Initiated Documentation: 07/30/19 07:24. Limitations to Documentation: no limitations. Information obtained by: patient, RN notes reviewed and old records reviewed. HPI Narrative: Patient presents to ED by ambulance with chief complaint of not feeling well, something is definitely wrong. Patient has now had 3 visits in the last 3 days. His first 2 visits were felt to be anxiety related. The patient told EMS that he had chest pain, abdominal pain and shortness of breath. He told nursing and myself that he had shortness of breath and abdominal pain. He did not express having chest pain until directly asked about complaint of chest pain to EMS. He then states that he feels like he has radiation of his abdominal pain into his chest. He reports no bowel movement since the weekend. There is no report of fever or vomiting. He had a PET scan done for follow-up of his lung cancer on Monday and [place] . He reports taking his medications today including his clonazepam and hydroxyzine. He is not suicidal but he feels unsafe and that something is definitely wrong with him. Related Data Home Medications Medication Instructions Recorded Confirmed [facility] [employer] Ad[employer] kit 10/15/17 07/30/19 albuterol sulfate 2.5 mg INHALATION Q4H PRN PRN 30 10/15/17 07/30/19 Days ml budesonide-formoterol [Symbicort] 10.2 gm INHALATION BID #3 inhaler 09/21/18 07/30/19 tiotropium bromide 18 mcg capsule 1 cap INHALATION DAILY #90 inh 09/26/18 07/30/19 with inhalation device fluoxetine 20 mg tablet 20 mg PO DAILY #90 tab-cap 10/02/18 07/30/19 mirtazapine 15 mg tablet 15 mg PO HS #30 tab 12/12/18 07/30/19 clonazepam 0.5 mg tablet 0.5 mg PO BID PRN 12/19/18 07/30/19 albuterol sulfate 90 mcg/actuation 2 puff INHALATION Q4H PRN PRN #1 01/03/19 07/30/19 aerosol inhaler inh polyethylene glycol 3350 17 17 gm PO DAILY PRN #850 gm 01/11/19 07/30/19 gram/dose oral powder bisacodyl 10 mg rectal suppository 10 mg VA DAILY PRN #8 each 01/30/19 07/30/19 pantoprazole 40 mg tablet,delayed 40 mg PO DAILY #90 tab 02/08/19 07/30/19 release calcium carbonate 500 mg calcium 500 mg PO BID #180 tab 02/19/19 07/30/19 (1,250 mg) tablet cholecalciferol (vitamin D3) 25 1,000 unit PO DAILY #90 cap 02/19/19 07/30/19 mcg (1,000 unit) capsule hydroxyzine HCl 25 mg tablet 25 mg PO BID PRN #180 tab 02/20/19 07/30/19 lubiprostone 24 mcg capsule 24 mcg PO DAILY #90 cap 04/24/19 07/30/19 docusate sodium [Colace] 100 mg PO BID #90 cap 04/28/19 07/30/19 sucralfate [Carafate] 5 ml PO TID #420 ml 05/30/19 07/30/19 apixaban 5 mg tablet 5 mg PO BID #180 tab 06/26/19 07/30/19 sennosides 8.6 mg-docusate sodium 1 tab PO BID #180 tab 06/26/19 07/30/19 50 mg tablet clonazepam [Klonopin] 0.5 mg PO BID #7 tab 07/28/19 07/30/19 Previous Rx's Medication Instructions Recorded [facility] Advantage kit 10/15/17 albuterol sulfate 2.5 mg INHALATION Q4H PRN PRN 30 10/15/17 Days ml budesonide-formoterol [Symbicort] 10.2 gm INHALATION BID #3 inhaler 09/21/18 tiotropium bromide 18 mcg capsule 1 cap INHALATION DAILY #90 inh 09/26/18 with inhalation device fluoxetine 20 mg tablet 20 mg PO DAILY #90 tab-cap 10/02/18 mirtazapine 15 mg tablet 15 mg PO HS #30 tab 12/12/18 albuterol sulfate 90 mcg/actuation 2 puff INHALATION Q4H PRN PRN #1 01/03/19 aerosol inhaler inh polyethylene glycol 3350 17 17 gm PO DAILY PRN #850 gm 01/11/19 gram/dose oral powder bisacodyl 10 mg rectal suppository 10 mg VA DAILY PRN #8 each 01/30/19 pantoprazole 40 mg tablet,delayed 40 mg PO DAILY #90 tab 02/08/19 release calcium carbonate 500 mg calcium 500 mg PO BID #180 tab 02/19/19 (1,250 mg) tablet cholecalciferol (vitamin D3) 25 1,000 unit PO DAILY #90 cap 02/19/19 mcg (1,000 unit) capsule hydroxyzine HCl 25 mg tablet 25 mg PO BID PRN #180 tab 02/20/19 lubiprostone 24 mcg capsule 24 mcg PO DAILY #90 cap 04/24/19 docusate sodium [Colace] 100 mg PO BID #90 cap 04/28/19 sucralfate [Carafate] 5 ml PO TID #420 ml 05/30/19 apixaban 5 mg tablet 5 mg PO BID #180 tab 06/26/19 sennosides 8.6 mg-docusate sodium 1 tab PO BID #180 tab 06/26/19 50 mg tablet clonazepam [Klonopin] 0.5 mg PO BID #7 tab 07/28/19 Allergies Allergy/AdvReac Type Severity Reaction Status Date / Time No Known Allergies Allergy Verified 07/30/19 10:39 General Stated Complaint: Abd Prob FLASH: 3 Review of Systems <Daren Chiang MD - Last Filed: 07/30/19 20:22> Narrative: As documented in HPI otherwise negative as below. Const: no fever, chills, weakness Resp: SOB; no cough, pleuritic pain CV: CP; no diaphoresis, edema, syncope GI: abdominal pain; no nausea, vomiting, diarrhea Neuro: no headache, numbness, focal weakness, confusion PFSH <Daren Chiang MD - Last Filed: 07/30/19 20:22> Medical History Adjustment disorder with anxiety (Chronic) Alcohol abuse (Chronic) Anxiety (Chronic) COPD (chronic obstructive pulmonary disease) (Chronic) Dyspepsia (Chronic) Malignant neoplasm of right lung (Chronic) Tubular adenoma of colon (Inactive) Surgical History colonoscopy (Inactive 01/19/15) Also had a decompress colonoscopy with Dr Haresh Vásquez at [facility] on 06/09/18 for significant colon distention seen on CT scan, no prep done,therapeutic, diagnositc, still due for repeat on 01/19/25 History of lung biopsy (Resolved) History of surgery on upper extremity (Resolved) left Status post cataract extraction and insertion of intraocular lens of left eye (Chronic 11/05/18) Social History Smoking/Tobacco Use Status: Current every day Tobacco Type: smokeless tobacco Tobacco: How many years used: 30 Smokeless tobacco user: chewing tobacco Quit status: not considering quitting Alcohol Intake: former Drug use: Never Substance use type: does not use Details: Adopted: No Foster care: No Household members: other Details: 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 Physician Care Provider 26/12 Housing: apartment Number of Children: 0 Communication Needs: None Do you need help understanding health information?: Often current occupation: not working Current gender identity: male How often do you talk on the phone with friends or family?: three or more times per week Panel score (0-1 are the most socially isolated patients): 1 What type of physical activity do you participate in: none and other Details: started lifting weights Frequency: daily Seatbelt use: always Drive intox or ride w/intox auto 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 Exam <Daren Chiang MD - Last Filed: 07/30/19 20:22> Narrative Exam Narrative: Vitals: Afebrile with normal vital signs and normal room air pulse oximetry. Const: WDWN male in NAD. HEENT: NC/AT. Normal facial exam. Eyes: Normal conjunctiva and sclera. Neck: Supple. Trachea midline. Lungs: Normal respiratory effort. Lungs are clear, occasional scattered rhonchi. Cor: RRR without murmur/gallop. Good radial pulses. GI: Soft. NT/ND. No guarding or rebound. Neuro: A+O x 3. Normal speech, mentation, gait. Cranial nerves II - XII grossly intact. No gross motor or sensory deficit. Ext: No C/C/E. Skin: Warm and dry. Excoriated area under umbilicus where he has been picking/digging at himself. Course <Daren Chiang MD - Last Filed: 07/30/19 20:22> Vital Signs Vital signs: Vital Signs Temperature 98.2 F 07/30/19 07:18 Pulse 70 07/30/19 07:18 Respiratory Rate 20 07/30/19 07:18 Blood Pressure 118/78 07/30/19 07:18 Pulse Oximetry 96 07/30/19 07:18 Temperature 98.2 F 07/30/19 07:18 Temperature Source Temporal Artery Scan 07/30/19 07:18 Pulse 70 07/30/19 07:18 Respiratory Rate 20 07/30/19 07:18 Respiratory Effort Non-Labored 07/30/19 07:22 Blood Pressure 118/78 07/30/19 07:18 Blood Pressure Position Sitting 07/30/19 07:18 Pulse Oximetry 96 07/30/19 07:18 Oxygen Delivery Method Room Air 07/30/19 07:18 Oxygen Flow Rate 0 07/30/19 07:18 Pain Level 9 07/30/19 07:18 Sign Out <Daren Chiang MD - Last Filed: 07/30/19 20:22> Sign Out Data: Sign Out Comment: pending lab and care management consult Last updated by Daren Chiang MD at 07/30/19 08:02
[2019-07-30 08:21] LABS: Abs Immature Grans 0.01 k/cumm (0.0-0.09); Absolute Basophil Count 0.01 k/cumm (0.0-0.2); Absolute Eosinophil Count 0.01 k/cumm (0.0-0.7); Absolute Monocyte Count 0.37 k/cumm (0.11-0.7); Basophils % 0.3; Eosinophils % 0.3; HCT 42.9 % (40.0-50.0); HGB 14.3 g/dL (13.5-17.5); Immature Grans % 0.3 %; Lymphocytes % 16.7; Mean Corp. HGB Concentration 33.3 g/dL (32.0-36.0); Mean Corpuscular Hemoglobin 28.8 pg (27.0-33.0); Mean Corpuscular Volume 86.3 fL (80-95); Mean Platelet Volume 9.8 fL (8.0-11.0); Monocytes % 10.3; Neutrophils % 72.1; Platelet Count 234 x1000/uL (130-400); RBC 4.97 m/cumm (4.50-6.00); RBC Distribution Width 12.6 % (11.8-14.1)
[2019-07-30 08:34] LABS: ALT 21 U/L (16-63); AST 23 U/L (15-37); Albumin 3.3 g/dL (3.4-5.0); Alkaline Phosphatase 83 U/L (46-116); Anion Gap 8.2 mmol/L (3-11); BUN 19 mg/dL (7-18); Bilirubin, Total 1.3 mg/dL (0.2-1.0); CO2 28.8 mmol/L (21.0-32.0); CREATININE 1.33 mg/dL (0.70-1.30); Calcium 7.9 mg/dL (8.5-10.1); Chloride 107 mmol/L (98-107); Estimated GFR 53.96 (mL/min/1.73m2); Glucose 97 mg/dL (74-106); Lipase 175 U/L (73-393); Magnesium 2.4 mg/dL (1.8-2.4); Potassium 3.8 mmol/L (3.5-5.1); Sodium 144 mmol/L (136-145); Total Protein 6.7 g/dL (6.4-8.2)
[2019-07-30 08:35] LABS: Troponin I < 0.05 ng/Ml (<0.06)
--- NOTE | 2019-07-30 11:19 | CMPROGNOTE_ITS ---
Care Management Progress Note CM paged by ED as Iggy has presented now three times in the last three days. Previously, wrap around services were coordinated for Iggy including [facility], [facility] (management technician), [facility], [facility], Brando Dobson (therapist), Margarito at [facility], Shweta Saleh at [facility] and [place] Chow, provider. CM called Shweta at [facility] who arrived and met with Iggy, WILL and Mela from . Iggy made contradictory reports regarding his medications, first saying he did not have his Klonopin (which he reports is helpful in managing his anxiety), and then reporting it was at home when CM offered to retrieve it from the pharmacy. He identified that he feels like he is dying during anxiety attacks and does not like being home alone. His mother is a stabilizing force and able to support his regulation at home. Shweta was able to walk over to [facility] and enlist the support of Margarito. Margarito arrived to support Iggy and escorted him to [facility], [facility], secured Iggy an emergent appointment at 10:30 today. I set up transport from [facility] to [facility] at 10:30, and Shweta will let me know if [place] Geraldo makes any medication changes. I anticipate setting up transport for Iggy from [facility] to [facility] and then to home as needed. Per Shweta?s report, Iggy was experiencing stability and success with supports, and some have stepped away including Margarito from [facility] and [facility] RN-Mara Lyons. Folks believe he has been in the ED the last few days because his parents are gone on vacation and because there is some confusion around if he is taking the klonopin (prescribed by [facility]). CM notified [facility] as previously, Iggy had some success staying in the crisis bed while his parents were away. WILL spoke with Jose D, crisis screener at [facility]. CM will set up transport for Iggy to go from [facility] (after his appointment) to [facility] to meet with Jose D and complete paperwork for possible crisis bed admission tomorrow (no bed available today). Shweta continues to support Iggy and is also supporting coordination of crisis bed through [facility] directly from [facility]. WILL requested signed med list from [facility], faxed to [facility] [phone] to expedite admission process. WILL spoke with [facility] and approved transport between community agencies, as well as to the [facility] and to home. - MH Services (Omit if N/A) Current MH Services: [facility] (Medication management, requested crisis bed placement.)
--- NOTE | 2019-07-30 11:19 | PDOC.ERCMPRO ---
Care Management Progress Note CM paged by ED as Iggy has presented now three times in the last three days. Previously, wrap around services were coordinated for Iggy including [facility], [facility] (sr. director product management), [facility], [facility], Brando Dobson (therapist), Margarito at [facility], Shweta Saleh at [facility] and [place] Chow, provider. CM called Shweta at [facility] who arrived and met with Iggy, WILL and Mela from . Iggy made contradictory reports regarding his medications, first saying he did not have his Klonopin (which he reports is helpful in managing his anxiety), and then reporting it was at home when CM offered to retrieve it from the pharmacy. He identified that he feels like he is dying during anxiety attacks and does not like being home alone. His mother is a stabilizing force and able to support his regulation at home. Shweta was able to walk over to [facility] and enlist the support of Margarito. Margarito arrived to support Iggy and escorted him to [facility], [facility], secured Iggy an emergent appointment at 10:30 today. I set up transport from [facility] to [facility] at 10:30, and Shweta will let me know if [place] Geraldo makes any medication changes. I anticipate setting up transport for Iggy from [facility] to [facility] and then to home as needed. Per Shweta?s report, Iggy was experiencing stability and success with supports, and some have stepped away including Margarito from [facility] and [facility] RN-Mara Lyons. Folks believe he has been in the ED the last few days because his parents are gone on vacation and because there is some confusion around if he is taking the klonopin (prescribed by [facility]). CM notified [facility] as previously, Iggy had some success staying in the crisis bed while his parents were away. WILL spoke with Jose D, crisis screener at [facility]. CM will set up transport for Iggy to go from [facility] (after his appointment) to [facility] to meet with Jose D and complete paperwork for possible crisis bed admission tomorrow (no bed available today). Shweta continues to support Iggy and is also supporting coordination of crisis bed through [facility] directly from [facility]. WILL requested signed med list from [facility], faxed to [facility] [phone] to expedite admission process. WILL spoke with [facility] and approved transport between community agencies, as well as to the [facility] and to home. - MH Services (Omit if N/A) Current MH Services: [facility] (Medication management, requested crisis bed placement.)
== END 2019-07-30 09:23 | disposition home or self-care (01) ==
PROVIDERS: Emergency Medicine; Emergency Provider Student in an Organized Health Care Education/Training Program; PCP Internal Medicine
DX: F43.22 Adjustment disorder with anxiety (principal); R07.81 Pleurodynia; G89.29 Other chronic pain; J44.9 Chronic obstructive pulmonary disease, unspecified; F17.210 Nicotine dependence, cigarettes, uncomplicated
CPT/HCPCS: 36415; 80053; 83690; 93005; 99283; 83735; 84484; 85025; 93010

== ENCOUNTER 2019-07-31 06:28 | Emergency (ER) | payer MEDICARE, MEDICAID, SELFPAY ==
[2019-07-31 06:27] VITALS: BP 131/73; PULSE 82; RESP 16; TEMP 36.8; O2SAT 96
--- NOTE | 2019-07-31 06:44 | ED.GENADUL_ITS ---
Discharge Plan Disposition Patient Disposition: HOME Condition: Good Discharge Details Chief Complaint: Sorethroat Clinical Impression: Anxiety Primary Care Provider: Deborah Chow ED Provider: Daren Chiang [place] Meds and New Rx's Prescriptions: Continued Spiriva with HandiHaler 18 mcg capsule, w/inhalation device 1 cap Inhalation DAILY Qty: 90 RF: 0 mirtazapine 15 mg tablet 15 mg PO HS Qty: 30 RF: 1 albuterol sulfate [ProAir HFA] 90 mcg/actuation HFA aerosol inhaler 2 puff Inhalation Q4H PRN PRN (Reason: Shortness Of Breath) Qty: 1 RF: 5 polyethylene glycol 3350 [Miralax] 17 gram/dose powder 17 gm PO DAILY PRN (Reason: constipation) Qty: 850 RF: 12 bisacodyl 10 mg suppository 10 mg [place] DAILY PRN (Reason: constipation) Qty: 8 RF: 0 lubiprostone 24 mcg capsule 24 mcg PO DAILY Qty: 90 RF: 0 fluoxetine 20 mg tablet 20 mg PO DAILY Qty: 90 RF: 3 clonazepam [Klonopin] 0.5 mg tablet 0.5 mg PO BID PRNRF: 0 cholecalciferol (vitamin D3) 1,000 unit capsule 1,000 unit PO DAILY Qty: 90 RF: 3 calcium carbonate 500 mg calcium (1,250 mg) tablet 500 mg PO BID Qty: 180 RF: 3 hydroxyzine HCl 25 mg tablet 25 mg PO BID PRN (Reason: anxiety) Qty: 180 RF: 2 pantoprazole 40 mg tablet,delayed release (DR/EC) 40 mg PO DAILY Qty: 90 RF: 3 apixaban 5 mg tablet 5 mg PO BID Qty: 180 RF: 3 sennosides-docusate sodium [Senna-Time S] 8.6-50 mg tablet 1 tab PO BID Qty: 180 RF: 3 (DME) [employer] Advantage 1 EACH spacer 1 ea Miscellaneous DIRECTED RF: 0 albuterol sulfate 2.5 MG/3 ML solution for nebulization 2.5 mg Inhalation Q4H PRN PRN (Reason: Shortness Of Breath) 30 Days RF: 0 docusate sodium [Colace] 100 mg capsule 100 mg PO BID Qty: 90 RF: 0 budesonide-formoterol [Symbicort] 10.2 GM HFA aerosol inhaler 10.2 gm Inhalation BID Qty: 3 RF: 3 sucralfate [Carafate] 100 mg/mL suspension 5 ml PO TID Qty: 420 RF: 1 clonazepam [Klonopin] 0.5 mg tablet 0.5 mg PO BID Qty: 7 RF: 0 Discharge Instructions Additional Instructions: You should follow-up with community resources and [facility] that has been put in place for you. You may follow-up once again with Dr. Gonzalez if you continue to have concerns about your throat. Your medical screening exam suggest no acute unstable events. Referrals: [facility] [Provider Group] Deborah Chow MD [Primary Care Provider] - Medical Decision Making Patient presenting today with complaint of sore throat and difficulty breathing and talking. He has had this worked up in the past. He has been here 4 times in 4 days now. Yesterday he was seen by multiple people and spent time in the ED and primary care office. He continues to have a normal physical exam as well as normal vital signs. He suffers from debilitating anxiety with multiple somatic complaints. He refuses to go to the care bed. He has medically stable and will be discharged home to follow-up with community resources. Medical Records Medical records reviewed: Yes I reviewed the patient's medical records. HPI General Mode of arrival: EMS . Date/Time Provider Initiated Documentation: 07/31/19 06:44 . Limitations to Documentation: no limitations . Information obtained by: patient and old records reviewed . HPI Narrative: Patient returns again this morning by EMS this time with complaint of sore throat and difficulty breathing and swallowing. He has had this complaint previously. He has had a CT scan of his neck in June. He has been scoped both by ENT and by GI. This is not a new complaint. This is the patient's fourth visit in 4 days to the ED. He spent most of yesterday in the ED or with his primary care. Plans were to try to get him to the care bed but when I asked him about that this morning he stated simply that he was not going. Patient states that he knows something is wrong with him and that I must fix him. He states that he is going to today. He denies that he is going to hurt himself and denies being suicidal just feels that he is going to suffocate. This is been his complaint for the last few days. Related Data Home Medications Medication Instructions Recorded Confirmed [employer] Advantage kit 10/15/17 07/31/19 albuterol sulfate 2.5 mg INHALATION Q4H PRN PRN 30 10/15/17 07/31/19 Days ml budesonide-formoterol [Symbicort] 10.2 gm INHALATION BID #3 inhaler 09/21/18 07/31/19 tiotropium bromide 18 mcg capsule 1 cap INHALATION DAILY #90 inh 09/26/18 07/31/19 with inhalation device fluoxetine 20 mg tablet 20 mg PO DAILY #90 tab-cap 10/02/18 07/31/19 mirtazapine 15 mg tablet 15 mg PO HS #30 tab 12/12/18 07/31/19 clonazepam 0.5 mg tablet 0.5 mg PO BID PRN 12/19/18 07/31/19 albuterol sulfate 90 mcg/actuation 2 puff INHALATION Q4H PRN PRN #1 01/03/19 07/31/19 aerosol inhaler inh polyethylene glycol 3350 17 17 gm PO DAILY PRN #850 gm 01/11/19 07/31/19 gram/dose oral powder bisacodyl 10 mg rectal suppository 10 mg [place] DAILY PRN #8 each 01/30/19 07/31/19 pantoprazole 40 mg tablet,delayed 40 mg PO DAILY #90 tab 02/08/19 07/31/19 release calcium carbonate 500 mg calcium 500 mg PO BID #180 tab 02/19/19 07/31/19 (1,250 mg) tablet cholecalciferol (vitamin D3) 25 1,000 unit PO DAILY #90 cap 02/19/19 07/31/19 mcg (1,000 unit) capsule hydroxyzine HCl 25 mg tablet 25 mg PO BID PRN #180 tab 02/20/19 07/31/19 lubiprostone 24 mcg capsule 24 mcg PO DAILY #90 cap 04/24/19 07/31/19 docusate sodium [Colace] 100 mg PO BID #90 cap 04/28/19 07/31/19 sucralfate [Carafate] 5 ml PO TID #420 ml 05/30/19 07/31/19 apixaban 5 mg tablet 5 mg PO BID #180 tab 06/26/19 07/31/19 sennosides 8.6 mg-docusate sodium 1 tab PO BID #180 tab 06/26/19 07/31/19 50 mg tablet clonazepam [Klonopin] 0.5 mg PO BID #7 tab 07/28/19 07/31/19 Previous Rx's Medication Instructions [facility]ed [facility] 10/15/17 albuterol sulfate 2.5 mg INHALATION Q4H PRN PRN 30 10/15/17 Days ml budesonide-formoterol [Symbicort] 10.2 gm INHALATION BID #3 inhaler 09/21/18 tiotropium bromide 18 mcg capsule 1 cap INHALATION DAILY #90 inh 09/26/18 with inhalation device fluoxetine 20 mg tablet 20 mg PO DAILY #90 tab-cap 10/02/18 mirtazapine 15 mg tablet 15 mg PO HS #30 tab 12/12/18 albuterol sulfate 90 mcg/actuation 2 puff INHALATION Q4H PRN PRN #1 01/03/19 aerosol inhaler inh polyethylene glycol 3350 17 17 gm PO DAILY PRN #850 gm 01/11/19 gram/dose oral powder bisacodyl 10 mg rectal suppository 10 mg [place] DAILY PRN #8 each 01/30/19 pantoprazole 40 mg tablet,delayed 40 mg PO DAILY #90 tab 02/08/19 release calcium carbonate 500 mg calcium 500 mg PO BID #180 tab 02/19/19 (1,250 mg) tablet cholecalciferol (vitamin D3) 25 1,000 unit PO DAILY #90 cap 02/19/19 mcg (1,000 unit) capsule hydroxyzine HCl 25 mg tablet 25 mg PO BID PRN #180 tab 02/20/19 lubiprostone 24 mcg capsule 24 mcg PO DAILY #90 cap 04/24/19 docusate sodium [Colace] 100 mg PO BID #90 cap 04/28/19 sucralfate [Carafate] 5 ml PO TID #420 ml 05/30/19 apixaban 5 mg tablet 5 mg PO BID #180 tab 06/26/19 sennosides 8.6 mg-docusate sodium 1 tab PO BID #180 tab 06/26/19 50 mg tablet clonazepam [Klonopin] 0.5 mg PO BID #7 tab 07/28/19 Allergies Allergy/AdvReac Type Severity Reaction Status Date / Time No Known Allergies Allergy Verified 07/31/19 06:50 General Stated Complaint: Sorethroat FLASH: 4 Review of Systems Constitutional Constitutional: Denies fever(s) ENT Ears, Nose, Mouth, and Throat: Reports sore throat Psychiatric Psychiatric: Reports anxiety, Denies homicidal ideation and Denies suicidal ideation [facility] Social History Smoking/Tobacco Use Status: Former Tobacco Use Quit Date: 06/05/98 Tobacco: How many years used: 30 Smokeless tobacco user: chewing tobacco Quit status: not considering quitting Alcohol Intake: former Drug use: Never Substance use type: does not use Details: Adopted: No Foster care: No 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 Housing: apartment Number of Children: 0 Communication Needs: None Do you need help understanding health information?: Often current occupation: not working Current gender identity: male How often do you talk on the phone with friends or family?: three or more times per week Panel score (0-1 are the most socially isolated patients): 1 What type of physical activity do you participate in: none and other Details: started lifting weights Frequency: daily Seatbelt use: always Drive intox or ride w/intox driver education road instructor: No Water heater temp set <120 deg: Yes Working smoke detector in home: Yes Fire extinguisher in home: Yes Carbon monox detector in home: Yes Firearms in home: Yes Do you feel safe at home: Yes Do you feel safe in your relationship?: Yes Additional Social history: lives with parents. Exam Narrative Exam Narrative: Vitals: Afebrile. Normal vital signs and normal room air pulse oximetry. Const: WDWN male in NAD. HEENT: NC/AT. Normal facial exam. OP is normal. No erythema or swelling. Eyes: Normal conjunctiva and sclera. Neck: Supple. Trachea midline. Lungs: Normal respiratory effort. Lungs are clear. Cor: RRR without murmur/gallop. Good radial pulses. Neuro: A+O x 3. Normal speech, mentation, gait. Cranial nerves II - XII grossly intact. No gross motor or sensory deficit. Ext: No C/C/E. Course Vital Signs Vital signs: Vital Signs Temperature 98.2 F 07/31/19 06:27 Pulse 82 07/31/19 06:27 Respiratory Rate 16 07/31/19 06:27 Blood Pressure 131/73 07/31/19 06:27 Pulse Oximetry 96 07/31/19 06:27 Temperature 98.2 F 07/31/19 06:27 Temperature Source Skin 07/31/19 06:27 Pulse 82 07/31/19 06:27 Respiratory Rate 16 07/31/19 06:27 Respiratory Effort 07/31/19 06:28 Blood Pressure 131/73 07/31/19 06:27 Blood Pressure Position Supine 07/31/19 06:27 Pulse Oximetry 96 07/31/19 06:27 Oxygen Delivery Method Room Air 07/31/19 06:27 Oxygen Flow Rate 0 07/31/19 06:27 Pain Level 9 07/31/19 06:27
[2019-07-31 07:00] VITALS: BP 131/73; PULSE 82; RESP 16; TEMP 36.8; O2SAT 96
--- NOTE | 2019-07-31 12:05 | CMPROGNOTE_ITS ---
Care Management Progress Note Shweta Saleh, [facility] called to inquire regarding placement for Iggy who was seen in the ED early this AM. Per MD note, Iggy reported that he would be refusing admission to care bed. CM spoke with Susan at the Care Bed P#[phone]. Susan reported Iggy is accepted to the care bed with a bed becoming available at [phone], today. Susan reported speaking with Jose D of Crisis services at [facility] within the last few minutes and reported he was outreaching to Iggy to offer bed. WILL called Shweta to notify of bed availability and concern for patient refusal. Shweta felt confident that Iggy could be gently encouraged and reminded of previous stability with care bed support and reported she would support him in a dmitting to care bed today. WILL will continue to follow.
--- NOTE | 2019-07-31 12:05 | PDOC.ERCMPRO ---
Care Management Progress Note Shweta Saleh, [facility] called to inquire regarding placement for Iggy who was seen in the ED early this AM. Per MD note, Iggy reported that he would be refusing admission to care bed. CM spoke with Susan at the Care Bed P#[phone]. Susan reported Iggy is accepted to the care bed with a bed becoming available at [phone], today. Susan reported speaking with Jose D of Crisis services at [facility] within the last few minutes and reported he was outreaching to Iggy to offer bed. WILL called Shweta to notify of bed availability and concern for patient refusal. Shweta felt confident that Iggy could be gently encouraged and reminded of previous stability with care bed support and reported she would support him in admitting to care bed today. WILL will continue to follow.
== END 2019-07-31 07:00 | disposition home or self-care (01) ==
PROVIDERS: Emergency Provider Emergency Medicine; PCP Internal Medicine
DX: F41.8 Other specified anxiety disorders (principal); J02.9 Acute pharyngitis, unspecified; R06.02 Shortness of breath; R13.10 Dysphagia, unspecified
CPT/HCPCS: 99283

== ENCOUNTER 2019-08-21 02:00 | Outpatient (CLI) | payer MEDICARE, MEDICAID, SELFPAY ==
--- NOTE | 2019-08-21 09:11 | DI.RAD_ITS ---
EXAM: RF BARIUM SWALLOW CLINICAL HISTORY: PHARYNGOESOPHAGEAL DYSPHAGIA R13.14 COMPARISON: No exams were available for comparison FINDINGS: Preliminary films of the chest show previously noted right upper lobe mass/scarring in a patient with history of lung carcinoma, no change from 05/13/2019. No pleural effusion. Lungs otherwise are fransico ssly clear. Lateral view of the neck shows unremarkable soft tissue appearance of the tracheal laryngeal structur es. Moderate hypertrophic degenerative changes of the cervical spine, most prominent at C5-6 with ma rked anterior osteophytes. Barium was ingested and showed grossly normal hypo pharyngeal motility. Esophageal motility appears intact except for a few tertiary contractions. No evidence of fixed lesion or stricture. IMPRESSION: Minimal tertiary contractions of the esophagus, otherwise unremarkable study. Prominent midcervical spine anterior osteophytes, these may be associated with dysphagia.
== END 2019-08-21 02:20 ==
PROVIDERS: PCP Internal Medicine; Visit Provider Otolaryngology
DX: R13.14 Dysphagia, pharyngoesophageal phase (principal); K22.4 Dyskinesia of esophagus
CPT/HCPCS: 74221

== ENCOUNTER 2019-10-18 06:24 | Emergency (ER) | payer MEDICARE, MEDICAID, SELFPAY ==
[2019-10-18 06:28] VITALS: BP 133/80; PULSE 99; RESP 16; TEMP 36.6; O2SAT 96
--- NOTE | 2019-10-18 06:32 | W.ED.GENAD ---
Discharge Plan Disposition Patient Disposition: HOME Condition: Stable Discharge Details Chief Complaint: Abd Prob Clinical Impression: Dyspepsia Primary Care Provider: Deborah Chow ED Provider: Mj Chen Home Meds and New Rx's Prescriptions: Continued Spiriva with HandiHaler 18 mcg capsule, w/inhalation device 1 cap Inhalation DAILY Qty: 90 RF: 0 mirtazapine 15 mg tablet 15 mg PO HS Qty: 30 RF: 1 albuterol sulfate [ProAir HFA] 90 mcg/actuation HFA aerosol inhaler 2 puff Inhalation Q4H PRN PRN (Reason: Shortness Of Breath) Qty: 1 RF: 5 polyethylene glycol 3350 [Miralax] 17 gram/dose powder 17 gm PO DAILY PRN (Reason: constipation) Qty: 850 RF: 12 bisacodyl 10 mg suppository 10 mg [place] DAILY PRN (Reason: constipation) Qty: 8 RF: 0 lubiprostone 24 mcg capsule 24 mcg PO DAILY Qty: 90 RF: 0 clonazepam [Klonopin] 0.5 mg tablet 0.5 mg PO BID PRNRF: 0 cholecalciferol (vitamin D3) 1,000 unit capsule 1,000 unit PO DAILY Qty: 90 RF: 3 calcium carbonate 500 mg calcium (1,250 mg) tablet 500 mg PO BID Qty: 180 RF: 3 Shingrix (PF) 50 mcg/0.5 mL suspension for reconstitution 0.5 ml IM ONCE Qty: 1 RF: 1 apixaban 5 mg tablet 5 mg PO BID Qty: 180 RF: 3 sennosides-docusate sodium [Senna-Time S] 8.6-50 mg tablet 1 tab PO BID Qty: 180 RF: 3 fluoxetine 20 mg tablet 20 mg PO DAILY Qty: 90 RF: 3 hydroxyzine HCl 25 mg tablet 25 mg PO BID PRN (Reason: anxiety) Qty: 180 RF: 2 (DME) [employer]iChamber Advantage 1 EACH spacer 1 ea Miscellaneous DIRECTED RF: 0 albuterol sulfate 2.5 MG/3 ML solution for nebulization 2.5 mg Inhalation Q4H PRN PRN (Reason: Shortness Of Breath) 30 Days RF: 0 docusate sodium [Colace] 100 mg capsule 100 mg PO BID Qty: 90 RF: 0 budesonide-formoterol [Symbicort] 10.2 GM HFA aerosol inhaler 10.2 gm Inhalation BID Qty: 3 RF: 3 clonazepam [Klonopin] 0.5 mg tablet 0.5 mg PO BID Qty: 7 RF: 0 sucralfate [Carafate] 100 mg/mL suspension 5 ml PO TID Qty: 420 RF: 1 pantoprazole 40 mg tablet,delayed release (DR/EC) 40 mg PO DAILY Qty: 90 RF: 3 Discharge Instructions Instructions: Gastritis (ED) Additional Instructions: follow up with your primary care provider within 1-2 weeks if you feel more ill, have worsening pain or difficulty breathing return to the emergency department Medical Decision Making 64 yo male with hx of anxiety, alcohol abuse, dyspepsia, copd, who comes in with pain when he eats in epigastric area. Denies any pain now and has no abdominal tenderness, no pressley's sign no distention. States pain is only when he eats. He denies chest pressure or dspnea, states he sometimes feels he can't catch his breath but states this happens when he is anxious. Denies si/hi. He has clear lungson exam. Suspect his symptoms are due to gastritis vs ulcer. Will start him on ppi and continue carafate, advised f/u with pcp and return precautions given. Patient comfortable and in agreement with this plan Differential Diagnosis Differential Diagnosis: gastritis, ulcer HPI General Mode of arrival: EMS. Date/Time Provider Initiated Documentation: 10/18/19 06:32. Limitations to Documentation: no limitations. Information obtained by: patient. History of Present Illness 64 year old M presents to the emergency department with the chief complaint of pain with eating, described as moderate, and it has been constant. No relieving factors improve symptom(s), No exacerbating factors reported . Patient did receive the following treatments prior to arrival, none Related Data Home Medications Medication Instructions Recorded Confirmed [facility] Advantage kit 10/15/17 08/13/19 albuterol sulfate 2.5 mg INHALATION Q4H PRN PRN 30 10/15/17 08/13/19 Days ml budesonide-formoterol [Symbicort] 10.2 gm INHALATION BID #3 inhaler 09/21/18 08/13/19 tiotropium bromide 18 mcg capsule 1 cap INHALATION DAILY #90 inh 09/26/18 07/31/19 with inhalation device mirtazapine 15 mg tablet 15 mg PO HS #30 tab 12/12/18 08/13/19 clonazepam 0.5 mg tablet 0.5 mg PO BID PRN 12/19/18 08/13/19 albuterol sulfate 90 mcg/actuation 2 puff INHALATION Q4H PRN PRN #1 01/03/19 08/13/19 aerosol inhaler inh polyethylene glycol 3350 17 17 gm PO DAILY PRN #850 gm 01/11/19 08/13/19 gram/dose oral powder bisacodyl 10 mg rectal suppository 10 mg [place] DAILY PRN #8 each 01/30/19 08/13/19 calcium carbonate 500 mg calcium 500 mg PO BID #180 tab 02/19/19 08/13/19 (1,250 mg) tablet cholecalciferol (vitamin D3) 25 1,000 unit PO DAILY #90 cap 02/19/19 08/13/19 mcg (1,000 unit) capsule lubiprostone 24 mcg capsule 24 mcg PO DAILY #90 cap 04/24/19 08/13/19 docusate sodium [Colace] 100 mg PO BID #90 cap 04/28/19 08/13/19 apixaban 5 mg tablet 5 mg PO BID #180 tab 06/26/19 08/13/19 sennosides 8.6 mg-docusate sodium 1 tab PO BID #180 tab 06/26/19 08/13/19 50 mg tablet clonazepam [Klonopin] 0.5 mg PO BID #7 tab 07/28/19 08/13/19 varicella-zoster gE-AS01B (PF) 50 0.5 ml IM ONCE #1 each 08/13/19 08/13/19 mcg/0.5 mL IM susp, kit fluoxetine 20 mg tablet 20 mg PO DAILY #90 tab-cap 09/16/19 hydroxyzine HCl 25 mg tablet 25 mg PO BID PRN #180 tab 10/15/19 pantoprazole 40 mg PO DAILY #90 tab 10/18/19 sucralfate [Carafate] 5 ml PO TID #420 ml 10/18/19 Previous Rx's Medication Instructions Recorded [employer] Advantage kit 10/15/17 albuterol sulfate 2.5 mg INHALATION Q4H PRN PRN 30 10/15/17 Days ml budesonide-formoterol [Symbicort] 10.2 gm INHALATION BID #3 inhaler 09/21/18 tiotropium bromide 18 mcg capsule 1 cap INHALATION DAILY #90 inh 09/26/18 with inhalation device mirtazapine 15 mg tablet 15 mg PO HS #30 tab 12/12/18 albuterol sulfate 90 mcg/actuation 2 puff INHALATION Q4H PRN PRN #1 01/03/19 aerosol inhaler inh polyethylene glycol 3350 17 17 gm PO DAILY PRN #850 gm 01/11/19 gram/dose oral powder bisacodyl 10 mg rectal suppository 10 mg [place] DAILY PRN #8 each 01/30/19 calcium carbonate 500 mg calcium 500 mg PO BID #180 tab 02/19/19 (1,250 mg) tablet cholecalciferol (vitamin D3) 25 1,000 unit PO DAILY #90 cap 02/19/19 mcg (1,000 unit) capsule lubiprostone 24 mcg capsule 24 mcg PO DAILY #90 cap 04/24/19 docusate sodium [Colace] 100 mg PO BID #90 cap 04/28/19 apixaban 5 mg tablet 5 mg PO BID #180 tab 06/26/19 sennosides 8.6 mg-docusate sodium 1 tab PO BID #180 tab 06/26/19 50 mg tablet clonazepam [Klonopin] 0.5 mg PO BID #7 tab 07/28/19 varicella-zoster gE-AS01B (PF) 50 0.5 ml IM ONCE #1 each 08/13/19 mcg/0.5 mL IM susp, kit fluoxetine 20 mg tablet 20 mg PO DAILY #90 tab-cap 09/16/19 hydroxyzine HCl 25 mg tablet 25 mg PO BID PRN #180 tab 10/15/19 pantoprazole 40 mg PO DAILY #90 tab 10/18/19 sucralfate [Carafate] 5 ml PO TID #420 ml 10/18/19 Allergies Allergy/AdvReac Type Severity Reaction Status Date / Time No Known Allergies Allergy Verified 08/13/19 09:37 General FLASH: 4 Review of Systems All systems reviewed & are unremarkable except as noted in HPI and below Constitutional Constitutional: Denies chills, Denies fever(s) and Denies weakness Cardiovascular Cardiovascular: Denies chest pain and Denies dyspnea Respiratory Respiratory: Denies cough and Denies dyspnea Gastrointestinal Gastrointestinal: Denies abdominal pain, Denies nausea and Denies vomiting Musculoskeletal Musculoskeletal: Denies joint swelling Neurologic Neurologic: Denies weakness [facility] Social History Smoking/Tobacco Use Status: Former Tobacco Use Quit Date: 06/05/98 Tobacco: How many years used: 30 Smokeless tobacco user: chewing tobacco Quit status: not considering quitting Alcohol Intake: former Drug use: Never Substance use type: does not use Details: Adopted: No Foster care: No 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 Housing: apartment Number of Children: 0 Communication Needs: None Do you need help understanding health information?: Often current occupation: not working Current gender identity: male How often do you talk on the phone with friends or family?: three or more times per week Panel score (0-1 are the most socially isolated patients): 1 What type of physical activity do you participate in: none and other Details: started lifting weights Frequency: daily Seatbelt use: always Drive intox or ride w/intox dolly 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 Exam Const General: no acute distress Orientation: alert HENMT Head: normal to inspection Ears: external ears normal General nose exam: external nose normal Mouth: moist mucous membranes Eyes General: appearance normal, both eyes and all related structures Neck Neck: normal visual inspection Resp Effort & Inspection: normal respiratory effort and able to speak in complete sentences Cardio Rate: regular rate GI Palpation: soft and nontender Skin General skin exam: no rashes or lesions noted Neuro General: patient alert and patient oriented x3 Extrem General: normal to inspection Psych Mental Status: mental status grossly normal
[2019-10-18 07:47] VITALS: BP 133/80; PULSE 99; RESP 16; TEMP 36.6; O2SAT 96
== END 2019-10-18 07:08 | disposition home or self-care (01) ==
LOC: ER 08:20
PROVIDERS: Emergency Provider Emergency Medicine; PCP Internal Medicine
DX: R10.13 Epigastric pain (principal); F41.9 Anxiety disorder, unspecified; J44.9 Chronic obstructive pulmonary disease, unspecified
CPT/HCPCS: 99283

== ENCOUNTER 2019-10-18 08:06 | Emergency (ER) | payer MEDICARE, MEDICAID, SELFPAY ==
[2019-10-18 08:11] VITALS: BP 131/78; PULSE 79; RESP 18; TEMP 36.6; O2SAT 96
[2019-10-18 08:19] VITALS: RESP 18
--- NOTE | 2019-10-18 08:30 | ED.GENADUL_ITS ---
Discharge Plan Disposition Patient Disposition: HOME Condition: Stable Discharge Details Chief Complaint: GenMedical Clinical Impression: Dyspepsia Primary Care Provider: Deborah Chow ED Provider: Janna Collins Home Meds and New Rx's Prescriptions: Continued Spiriva with HandiHaler 18 mcg capsule, w/inhalation device 1 cap Inhalation DAILY Qty: 90 RF: 0 mirtazapine 15 mg tablet 15 mg PO HS Qty: 30 RF: 1 albuterol sulfate [ProAir HFA] 90 mcg/actuation HFA aerosol inhaler 2 puff Inhalation Q4H PRN PRN (Reason: Shortness Of Breath) Qty: 1 RF: 5 polyethylene glycol 3350 [Miralax] 17 gram/dose powder 17 gm PO DAILY PRN (Reason: constipation) Qty: 850 RF: 12 bisacodyl 10 mg suppository 10 mg HI DAILY PRN (Reason: constipation) Qty: 8 RF: 0 lubiprostone 24 mcg capsule 24 mcg PO DAILY Qty: 90 RF: 0 clonazepam [Klonopin] 0.5 mg tablet 0.5 mg PO BID PRNRF: 0 cholecalciferol (vitamin D3) 1,000 unit capsule 1,000 unit PO DAILY Qty: 90 RF: 3 calcium carbonate 500 mg calcium (1,250 mg) tablet 500 mg PO BID Qty: 180 RF: 3 Shingrix (PF) 50 mcg/0.5 mL suspension for reconstitution 0.5 ml IM ONCE Qty: 1 RF: 1 apixaban 5 mg tablet 5 mg PO BID Qty: 180 RF: 3 sennosides-docusate sodium [Senna-Time S] 8.6-50 mg tablet 1 tab PO BID Qty: 180 RF: 3 fluoxetine 20 mg tablet 20 mg PO DAILY Qty: 90 RF: 3 hydroxyzine HCl 25 mg tablet 25 mg PO BID PRN (Reason: anxiety) Qty: 180 RF: 2 (DME) [employer] Advantage 1 EACH spacer 1 ea Miscellaneous DIRECTED RF: 0 albuterol sulfate 2.5 MG/3 ML solution for nebulization 2.5 mg Inhalation Q4H PRN PRN (Reason: Shortness Of Breath) 30 Days RF: 0 docusate sodium [Colace] 100 mg capsule 100 mg PO BID Qty: 90 RF: 0 budesonide-formoterol [Symbicort] 10.2 GM HFA aerosol inhaler 10.2 gm Inhalation BID Qty: 3 RF: 3 clonazepam [Klonopin] 0.5 mg tablet 0.5 mg PO BID Qty: 7 RF: 0 sucralfate [Carafate] 100 mg/mL suspension 5 ml PO TID Qty: 420 RF: 1 pantoprazole 40 mg tablet,delayed release (DR/EC) 40 mg PO DAILY Qty: 90 RF: 3 Discharge Instructions Instructions: Gastroesophageal Reflux Disease (ED) Additional Instructions: Follow up with primary care provider in 3-5 days. Return to ED sooner if any worsening or concerns. Increase oral fluids. Take medications previously prescribed as directed. Referrals: Deborah Chow MD [Primary Care Provider] - Discharge Data Discharge Date/Time-TO BE ENTERED AT DEPARTURE: 10/18/19 09:24 Medical Decision Making Patient has not had lab work done since July so we will order some basic labs including a troponin. EKG obtained. EKG was reviewed by Dr. Alison Resendiz MD ER attending, normal sinus rhythm no ST elevation or depression no ectopy. GI cocktail ordered. CBC, CMP and troponin are all within normal limits. At this time I do feel patient is safe to be discharged home. 0903: Patient reevaluated reports symptoms have subsided after GI cocktail. Discussed labs, patient verbalized understanding. Plan is to discharge patient home. Diagnosis given for dyspepsia instructed to fill the medications previously prescribed and take as directed, verbalized understanding. HPI General Mode of arrival: ambulatory . Date/Time Provider Initiated Documentation: 10/18/19 08:11 . Limitations to Documentation: no limitations . Information obtained by: patient . HPI Narrative: 64-year-old male presents to the ED for the second time last couple hours with a chief complaint of hard time swallowing and throat tightness. He states that he cannot get enough air feels like there is a lump in his throat he is well-known to the department. He also complains of dizziness. Denies nausea vomiting diarrhea. He was seen earlier this morning for abdominal problem was prescribed Protonix and Carafate which he did not fill. Related Data Home Medications Medication Instructions Recorded Confirmed OptiChamber Advantage kit 10/15/17 08/13/19 albuterol sulfate 2.5 mg INHALATION Q4H PRN PRN 30 10/15/17 10/18/19 Days ml budesonide-formoterol [Symbicort] 10.2 gm INHALATION BID #3 inhaler 09/21/18 10/18/19 tiotropium bromide 18 mcg capsule 1 cap INHALATION DAILY #90 inh 09/26/18 10/18/19 with inhalation device mirtazapine 15 mg tablet 15 mg PO HS #30 tab 12/12/18 10/18/19 clonazepam 0.5 mg tablet 0.5 mg PO BID PRN 12/19/18 08/13/19 albuterol sulfate 90 mcg/actuation 2 puff INHALATION Q4H PRN PRN #1 01/03/19 10/18/19 aerosol inhaler inh polyethylene glycol 3350 17 17 gm PO DAILY PRN #850 gm 01/11/19 10/18/19 gram/dose oral powder bisacodyl 10 mg rectal suppository 10 mg HI DAILY PRN #8 each 01/30/19 10/18/19 calcium carbonate 500 mg calcium 500 mg PO BID #180 tab 02/19/19 10/18/19 (1,250 mg) tablet cholecalciferol (vitamin D3) 25 1,000 unit PO DAILY #90 cap 02/19/19 10/18/19 mcg (1,000 unit) capsule lubiprostone 24 mcg capsule 24 mcg PO DAILY #90 cap 04/24/19 10/18/19 docusate sodium [Colace] 100 mg PO BID #90 cap 04/28/19 10/18/19 apixaban 5 mg tablet 5 mg PO BID #180 tab 06/26/19 10/18/19 sennosides 8.6 mg-docusate sodium 1 tab PO BID #180 tab 06/26/19 10/18/19 50 mg tablet clonazepam [Klonopin] 0.5 mg PO BID #7 tab 07/28/19 10/18/19 varicella-zoster gE-AS01B (PF) 50 0.5 ml IM ONCE #1 each 08/13/19 08/13/19 mcg/0.5 mL IM susp, kit fluoxetine 20 mg tablet 20 mg PO DAILY #90 tab-cap 09/16/19 10/18/19 hydroxyzine HCl 25 mg tablet 25 mg PO BID PRN #180 tab 10/15/19 10/18/19 pantoprazole 40 mg PO DAILY #90 tab 05/15/20 05/15/20 sucralfate [Carafate] 5 ml PO TID #420 ml 10/18/19 Previous Rx's Medication Instructions Recorded [facility] Advantage kit 10/15/17 albuterol sulfate 2.5 mg INHALATION Q4H PRN PRN 30 10/15/17 Days ml budesonide-formoterol [Symbicort] 10.2 gm INHALATION BID #3 inhaler 09/21/18 tiotropium bromide 18 mcg capsule 1 cap INHALATION DAILY #90 inh 09/26/18 with inhalation device mirtazapine 15 mg tablet 15 mg PO HS #30 tab 12/12/18 albuterol sulfate 90 mcg/actuation 2 puff INHALATION Q4H PRN PRN #1 01/03/19 aerosol inhaler inh polyethylene glycol 3350 17 17 gm PO DAILY PRN #850 gm 01/11/19 gram/dose oral powder bisacodyl 10 mg rectal suppository 10 mg HI DAILY PRN #8 each 01/30/19 calcium carbonate 500 mg calcium 500 mg PO BID #180 tab 02/19/19 (1,250 mg) tablet cholecalciferol (vitamin D3) 25 1,000 unit PO DAILY #90 cap 02/19/19 mcg (1,000 unit) capsule lubiprostone 24 mcg capsule 24 mcg PO DAILY #90 cap 04/24/19 docusate sodium [Colace] 100 mg PO BID #90 cap 04/28/19 apixaban 5 mg tablet 5 mg PO BID #180 tab 06/26/19 sennosides 8.6 mg-docusate sodium 1 tab PO BID #180 tab 06/26/19 50 mg tablet clonazepam [Klonopin] 0.5 mg PO BID #7 tab 07/28/19 varicella-zoster gE-AS01B (PF) 50 0.5 ml IM ONCE #1 each 08/13/19 mcg/0.5 mL IM susp, kit fluoxetine 20 mg tablet 20 mg PO DAILY #90 tab-cap 09/16/19 hydroxyzine HCl 25 mg tablet 25 mg PO BID PRN #180 tab 10/15/19 pantoprazole 40 mg PO DAILY #90 tab 10/18/19 sucralfate [Carafate] 5 ml PO TID #420 ml 10/18/19 Allergies Allergy/AdvReac Type Severity Reaction Status Date / Time No Known Allergies Allergy Verified 10/18/19 08:14 General Stated Complaint: GenMedical FLASH: 3 Review of Systems Narrative: Constitutional: Negative for weight loss, alert and oriented, disheveled normal body habitus, appears comfortable. HEENT: Denies trauma, headaches, blurry vision, nasal discharge, sore throat, trouble swallowing. Chest: Denies chest pain, palpitations, irregular rhythm, hypertension. Respiratory: Denies cough, hemoptysis. GI: Denies abdominal pain, nausea, vomiting, diarrhea, constipation. : Denies dysuria, hematuria, flank pain, rectal bleeding. Neuro: Denies blurry vision, weakness, syncope, headache or facial numbness. Hematologic: Denies easy bruising, intolerance to heat or cold, hair loss. [facility] Medical History Adjustment disorder with anxiety (Chronic) Alcohol abuse (Chronic) Anxiety (Chronic) COPD (chronic obstructive pulmonary disease) (Chronic) Dyspepsia (Chronic) Malignant neoplasm of right lung (Chronic) Tubular adenoma of colon (Inactive) Surgical History colonoscopy (Inactive 01/19/15) Also had a decompress colonoscopy with Dr Haresh Vásquez at [facility] on 06/09/18 for significant colon distention seen on CT scan, no prep done,therapeutic, diagnositc, still due for repeat on 01/19/25 History of lung biopsy (Resolved) History of surgery on upper extremity (Resolved) left Status post cataract extraction and insertion of intraocular lens of left eye (Chronic 11/05/18) Family History Father Essential hypertension Hyperlipidemia Paternal Uncle Heart disease Stroke Cerebral hemorrhage Hypertension Brother Cancer head and neck cancer - smoker Social History Smoking/Tobacco Use Status: Former Tobacco Use Quit Date: 06/05/98 Tobacco: How many years used: 30 Smokeless tobacco user: chewing tobacco Quit status: not considering quitting Alcohol Intake: former Drug use: Never Substance use type: does not use Details: Adopted: No Foster care: No 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 Housing: apartment Number of Children: 0 Communication Needs: None Do you need help understanding health information?: Often current occupation: not working Current gender identity: male How often do you talk on the phone with friends or family?: three or more times per week Panel score (0-1 are the most socially isolated patients): 1 What type of physical activity do you participate in: none and other Details: started lifting weights Frequency: daily Seatbelt use: always Drive intox or ride w/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 Exam Narrative Exam Narrative: Constitutional: Alert and oriented x3. Appears stated age. Normal body habitus. Head: Normocephalic, no trauma. Eyes: Pupils PERRLA, Red reflex noted, EOM's intact. Eyelids symmetrical without lesions, discharge, or swelling. ENT: Bilateral TM's WNL, External ear normal to inspection, no mastoid TTP, swelling, or erythema, Nasal turbinates WNL, no nasal discharge. Posterior pharynx WNL, no exudate. Chest: RRR, Normal S1, S2, distal pulses intact. Resp: Lungs clear to auscultation bilaterally, no wheezes, rales, or rhonchi. Musculoskeletal: Normal gait, 5/5 strength to all four extremities. Skin: No suspicious rashes or lesions. Capillary refill less than 2 sec. Neurologic: Cranial nerves II-XII intact. Alert and oriented x 3. DTR's intact. Hematologic/Lymphatic: No ecchymosis, no lymphadenopathy. Course Vital Signs Vital signs: Vital Signs Temperature 36.6 C 10/18/19 08:11 Pulse 79 10/18/19 08:11 Respiratory Rate 18 10/18/19 08:11 Blood Pressure 131/78 10/18/19 08:11 Pulse Oximetry 96 10/18/19 08:11 Temperature 36.6 C 10/18/19 08:11 Temperature Source Skin 10/18/19 08:11 Pulse 79 10/18/19 08:11 Respiratory Rate 18 10/18/19 08:19 Respiratory Effort Non-Labored 10/18/19 08:19 Respiratory Depth Normal 10/18/19 08:19 Respiratory Pattern Normal 10/18/19 08:19 Blood Pressure 131/78 10/18/19 08:11 Blood Pressure Position Sitting 10/18/19 08:11 Pulse Oximetry 96 10/18/19 08:11 Oxygen Delivery Method Room Air 10/18/19 08:11 Oxygen Flow Rate 0 10/18/19 08:11 Pain Level 8 10/18/19 08:11
[2019-10-18 08:39] LABS: Abs Immature Grans 0.02 k/cumm (0.0-0.09); Absolute Basophil Count 0.02 k/cumm (0.0-0.2); Absolute Eosinophil Count 0.04 k/cumm (0.0-0.7); Absolute Lymphocyte Count 0.74 k/cumm (1.2-3.4); Absolute Monocyte Count 0.43 k/cumm (0.11-0.7); Absolute Neutrophil Count 2.72 k/cumm (1.2-6.7); Basophils % 0.5; HCT 41.4 % (40.0-50.0); HGB 13.6 g/dL (13.5-17.5); Immature Grans % 0.5 %; Lymphocytes % 18.6; Mean Corp. HGB Concentration 32.9 g/dL (32.0-36.0); Mean Corpuscular Volume 88.3 fL (80-95); Mean Platelet Volume 9.6 fL (8.0-11.0); Monocytes % 10.8; Neutrophils % 68.6; Platelet Count 217 x1000/uL (130-400); RBC 4.69 m/cumm (4.50-6.00); RBC Distribution Width 13.4 % (11.8-14.1); White Blood Cell Count 3.97 k/cumm (4.4-10.8)
[2019-10-18 08:54] LABS: ALT 22 U/L (16-63); AST 21 U/L (15-37); Albumin 3.2 g/dL (3.4-5.0); Alkaline Phosphatase 89 U/L (46-116); Anion Gap 3.4 mmol/L (3-11); BUN 18 mg/dL (7-18); Bilirubin, Total 0.4 mg/dL (0.2-1.0); CO2 30.6 mmol/L (21.0-32.0); Calcium 8.1 mg/dL (8.5-10.1); Chloride 107 mmol/L (98-107); Glucose 112 mg/dL (74-106); Potassium 4.2 mmol/L (3.5-5.1); Sodium 141 mmol/L (136-145); Total Protein 6.8 g/dL (6.4-8.2)
[2019-10-18 08:55] LABS: Troponin I < 0.05 ng/Ml (<0.06)
[2019-10-18 09:16] VITALS: BP 112/79; PULSE 71; RESP 16; TEMP 36.6; O2SAT 100
== END 2019-10-18 09:24 | disposition home or self-care (01) ==
PROVIDERS: Emergency Provider Registered Nurse Emergency; PCP Internal Medicine
DX: R10.13 Epigastric pain (principal); J44.9 Chronic obstructive pulmonary disease, unspecified; Z87.891 Personal history of nicotine dependence
CPT/HCPCS: 36415; 80053; 93005; 99283; 99284; 84484; 85025; 93010

== ENCOUNTER 2019-10-24 12:29 | Outpatient (REF) | payer MEDICARE, MEDICAID, SELFPAY ==
--- NOTE | 2019-10-24 10:55 | TONSIL_PTH ---
PATIENT: Iggy Urias LOC: N U#:[id number] AGE/SX: 64/M ROOM: RE10/24/[address]: Rito Gonzalez MD : 1955 BED: DIS: 10/24/2019 SPEC #: [id number] RECD: 10/25/19 11:41 STATUS: SEKOU REQ #: [id number] GINGER: 10/24/19 10:[address]: Rito Gonzalez DEPT: Surgical Specimen RECD BY: Emilee Moon ENTERED: 10/25/19 11:42 SP TYPE: TONSIL OTHR DR: Deborah Chow MD Tissues: 1 - TONSIL BIOPSY Procedures: GROSS AND MICRO LEVEL 4 Comments: [id number]
== END 2019-10-24 12:49 ==
LOC: LBN 12:29
PROVIDERS: PCP Internal Medicine; Visit Provider Otolaryngology
DX: J35.8 Other chronic diseases of tonsils and adenoids (principal); J03.90 Acute tonsillitis, unspecified; C34.91 Malignant neoplasm of unspecified part of right bronchus or lung; R13.14 Dysphagia, pharyngoesophageal phase; Z87.891 Personal history of nicotine dependence
CPT/HCPCS: 88305

== ENCOUNTER 2019-11-11 06:52 | Emergency (ER) | payer MEDICARE, MEDICAID, SELFPAY ==
[2019-11-11 06:55] VITALS: BP 158/83; PULSE 79; RESP 16; TEMP 36.9; O2SAT 97
[2019-11-11 07:00] VITALS: BP 158/83; PULSE 77; PULSE 79; RESP 16; O2SAT 99
[2019-11-11 07:01] VITALS: BP 134/86; PULSE 74; PULSE 78; RESP 28; O2SAT 98
[2019-11-11 07:02] VITALS: PULSE 77; RESP 19; O2SAT 99
[2019-11-11 07:03] VITALS: RESP 16
--- NOTE | 2019-11-11 07:04 | ED.GENADUL_ITS ---
Discharge Plan Discharge Details Chief Complaint: SOB Clinical Impression: Anxiety, Breath shortness Primary Care Provider: Deborah Chow ED Provider: Mj Chen Home Meds and New Rx's Prescriptions: Continued Spiriva with HandiHaler 18 mcg capsule, w/inhalation device 1 cap Inhalation DAILY Qty: 90 RF: 0 mirtazapine 15 mg tablet 15 mg PO HS Qty: 30 RF: 1 albuterol sulfate [ProAir HFA] 90 mcg/actuation HFA aerosol inhaler 2 puff Inhalation Q4H PRN PRN (Reason: Shortness Of Breath) Qty: 1 RF: 5 polyethylene glycol 3350 [Miralax] 17 gram/dose powder 17 gm PO DAILY PRN (Reason: constipation) Qty: 850 RF: 12 bisacodyl 10 mg suppository 10 mg ND DAILY PRN (Reason: constipation) Qty: 8 RF: 0 lubiprostone 24 mcg capsule 24 mcg PO DAILY Qty: 90 RF: 0 clonazepam [Klonopin] 0.5 mg tablet 0.5 mg PO BID PRNRF: 0 cholecalciferol (vitamin D3) 1,000 unit capsule 1,000 unit PO DAILY Qty: 90 RF: 3 calcium carbonate 500 mg calcium (1,250 mg) tablet 500 mg PO BID Qty: 180 RF: 3 Shingrix (PF) 50 mcg/0.5 mL suspension for reconstitution 0.5 ml IM ONCE Qty: 1 RF: 1 apixaban 5 mg tablet 5 mg PO BID Qty: 180 RF: 3 sennosides-docusate sodium [Senna-Time S] 8.6-50 mg tablet 1 tab PO BID Qty: 180 RF: 3 fluoxetine 20 mg tablet 20 mg PO DAILY Qty: 90 RF: 3 hydroxyzine HCl 25 mg tablet 25 mg PO BID PRN (Reason: anxiety) Qty: 180 RF: 2 (DME) OptiChamber Advantage 1 EACH spacer 1 ea Miscellaneous DIRECTED RF: 0 albuterol sulfate 2.5 MG/3 ML solution for nebulization 2.5 mg Inhalation Q4H PRN PRN (Reason: Shortness Of Breath) 30 Days RF: 0 docusate sodium [Colace] 100 mg capsule 100 mg PO BID Qty: 90 RF: 0 budesonide-formoterol [Symbicort] 10.2 GM HFA aerosol inhaler 10.2 gm Inhalation BID Qty: 3 RF: 3 clonazepam [Klonopin] 0.5 mg tablet 0.5 mg PO BID Qty: 7 RF: 0 sucralfate [Carafate] 100 mg/mL suspension 5 ml PO TID Qty: 420 RF: 1 pantoprazole 40 mg tablet,delayed release (DR/EC) 40 mg PO DAILY Qty: 90 RF: 3 Discharge Instructions Instructions: Anxiety (ED) Additional Instructions: The sensation of not being able to catch your breath while still able to speak in full sentences is reassuring follow up with your primary care provider within 1-2 weeks return to the emergency department if you feel more ill, you check your temperature and it's over 100.4 with difficulty breathing or have persistent vomit Medical Decision Making 64 yo male comes in with over a year of intermittent sensation of not being able to catch breaths. He denies any fevers on my exam, no changes today, descrbes it as though he intermittently can't get a deep breath in. He arrives hd stable walking off the ambulance laughing and talking in full sentences. He has clear lung sounds, no leg swelling or jvd. He states he has no chest pain just sensation intermittently he can't catch his breath. He has had numerous work ups for similar complaint in the past and is felt it is his anxiety. Given his reassuring vital signs and exam do not feel any other work up indicated at this time. He was advised to f/u with his pcp and return precautions given Differential Diagnosis Differential Diagnosis: anxiety, globus sensation, copd, pna HPI General Mode of arrival: ambulatory (walked off ambulance) . Date/Time Provider Initiated Documentation: 11/11/19 07:00 . Limitations to Documentation: no limitations . Information obtained by: patient . History of Present Illness 64 year old M presents to the emergency department with the chief complaint of intermittent can't catch breath, described as moderate, Patient reports no radiation. Patient started experiencing this year(s) (2) and it has been constant. No relieving factors improve symptom(s), No exacerbating factors reported . Patient did receive the following treatments prior to arrival, none Related Data Home Medications Medication Instructions Recorded Confirmed [employer] Advantage kit 10/15/17 08/13/19 albuterol sulfate 2.5 mg INHALATION Q4H PRN PRN 30 10/15/17 11/11/19 Days ml budesonide-formoterol [Symbicort] 10.2 gm INHALATION BID #3 inhaler 09/21/18 11/11/19 tiotropium bromide 18 mcg capsule 1 cap INHALATION DAILY #90 inh 09/26/18 11/11/19 with inhalation device mirtazapine 15 mg tablet 15 mg PO HS #30 tab 12/12/18 11/11/19 clonazepam 0.5 mg tablet 0.5 mg PO BID PRN 12/19/18 11/11/19 albuterol sulfate 90 mcg/actuation 2 puff INHALATION Q4H PRN PRN #1 01/03/19 11/11/19 aerosol inhaler inh polyethylene glycol 3350 17 17 gm PO DAILY PRN #850 gm 01/11/19 11/11/19 gram/dose oral powder bisacodyl 10 mg rectal suppository 10 mg ND DAILY PRN #8 each 01/30/19 11/11/19 calcium carbonate 500 mg calcium 500 mg PO BID #180 tab 02/19/19 11/11/19 (1,250 mg) tablet cholecalciferol (vitamin D3) 25 1,000 unit PO DAILY #90 cap 02/19/19 11/11/19 mcg (1,000 unit) capsule lubiprostone 24 mcg capsule 24 mcg PO DAILY #90 cap 04/24/19 11/11/19 docusate sodium [Colace] 100 mg PO BID #90 cap 04/28/19 11/11/19 apixaban 5 mg tablet 5 mg PO BID #180 tab 06/26/19 11/11/19 sennosides 8.6 mg-docusate sodium 1 tab PO BID #180 tab 06/26/19 11/11/19 50 mg tablet clonazepam [Klonopin] 0.5 mg PO BID #7 tab 07/28/19 11/11/19 varicella-zoster gE-AS01B (PF) 50 0.5 ml IM ONCE #1 each 08/13/19 11/11/19 mcg/0.5 mL IM susp, kit fluoxetine 20 mg tablet 20 mg PO DAILY #90 tab-cap 09/16/19 11/11/19 hydroxyzine HCl 25 mg tablet 25 mg PO BID PRN #180 tab 10/15/19 11/11/19 pantoprazole 40 mg PO DAILY #90 tab 10/18/19 11/11/19 sucralfate [Carafate] 5 ml PO TID #420 ml 10/18/19 11/11/19 Previous Rx's Medication Instructions Recorded [employer] Advantage kit 10/15/17 albuterol sulfate 2.5 mg INHALATION Q4H PRN PRN 30 10/15/17 Days ml budesonide-formoterol [Symbicort] 10.2 gm INHALATION BID #3 inhaler 09/21/18 tiotropium bromide 18 mcg capsule 1 cap INHALATION DAILY #90 inh 09/26/18 with inhalation device mirtazapine 15 mg tablet 15 mg PO HS #30 tab 12/12/18 albuterol sulfate 90 mcg/actuation 2 puff INHALATION Q4H PRN PRN #1 01/03/19 aerosol inhaler inh polyethylene glycol 3350 17 17 gm PO DAILY PRN #850 gm 01/11/19 gram/dose oral powder bisacodyl 10 mg rectal suppository 10 mg ND DAILY PRN #8 each 01/30/19 calcium carbonate 500 mg calcium 500 mg PO BID #180 tab 02/19/19 (1,250 mg) tablet cholecalciferol (vitamin D3) 25 1,000 unit PO DAILY #90 cap 02/19/19 mcg (1,000 unit) capsule lubiprostone 24 mcg capsule 24 mcg PO DAILY #90 cap 04/24/19 docusate sodium [Colace] 100 mg PO BID #90 cap 04/28/19 apixaban 5 mg tablet 5 mg PO BID #180 tab 06/26/19 sennosides 8.6 mg-docusate sodium 1 tab PO BID #180 tab 06/26/19 50 mg tablet clonazepam [Klonopin] 0.5 mg PO BID #7 tab 07/28/19 varicella-zoster gE-AS01B (PF) 50 0.5 ml IM ONCE #1 each 08/13/19 mcg/0.5 mL IM susp, kit fluoxetine 20 mg tablet 20 mg PO DAILY #90 tab-cap 09/16/19 hydroxyzine HCl 25 mg tablet 25 mg PO BID PRN #180 tab 10/15/19 pantoprazole 40 mg PO DAILY #90 tab 10/18/19 sucralfate [Carafate] 5 ml PO TID #420 ml 10/18/19 Allergies Allergy/AdvReac Type Severity Reaction Status Date / Time No Known Allergies Allergy Verified 10/18/19 08:14 General Stated Complaint: SOB FLASH: 3 Review of Systems All systems reviewed & are unremarkable except as noted in HPI and below Constitutional Constitutional: Denies chills, Denies fever(s) and Denies weakness Cardiovascular Cardiovascular: Denies chest pain Respiratory Respiratory: Denies cough Gastrointestinal Gastrointestinal: Denies abdominal pain, Denies nausea and Denies vomiting Musculoskeletal Musculoskeletal: Denies joint swelling Neurologic Neurologic: Denies weakness Psychiatric Psychiatric: Denies depression 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 Housing: apartment Number of Children: 0 Communication Needs: None Do you need help understanding health information?: Often current occupation: not working Current gender identity: male How often do you talk on the phone with friends or family?: three or more times per week Panel score (0-1 are the most socially isolated patients): 1 What type of physical activity do you participate in: none and other Details: started lifting weights Frequency: daily Seatbelt use: always 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 Exam Const General: no acute distress Orientation: alert HENMT Head: normal to inspection Ears: external ears normal General nose exam: external nose normal Mouth: moist mucous membranes Eyes General: appearance normal, both eyes and all related structures Neck Neck: normal visual inspection Resp Effort & Inspection: normal respiratory effort and able to speak in complete sentences Cardio Rate: regular rate Skin General skin exam: no rashes or lesions noted Neuro General: patient alert and patient oriented x3 Extrem General: normal to inspection Psych Mental Status: mental status grossly normal Course Vital Signs Vital signs: Vital Signs Temperature 36.9 C 11/11/19 06:55 Pulse 79 11/11/19 06:55 Respiratory Rate 16 11/11/19 06:55 Blood Pressure 158/83 H 11/11/19 06:55 Pulse Oximetry 97 11/11/19 06:55 Temperature 36.9 C 11/11/19 06:55 Temperature Source Skin 11/11/19 06:55 Pulse 79 11/11/19 06:55 Respiratory Rate 16 11/11/19 06:55 Respiratory Effort Non-Labored 11/11/19 06:55 Blood Pressure 158/83 H 11/11/19 06:55 Blood Pressure Position Supine 11/11/19 06:55 Pulse Oximetry 97 11/11/19 06:55 Oxygen Delivery Method Room Air 11/11/19 06:55 Oxygen Flow Rate 0 11/11/19 06:55 Pain Level 9 11/11/19 06:55
[2019-11-11 07:20] VITALS: BP 158/83; PULSE 79; RESP 16; O2SAT 97
== END 2019-11-11 07:18 ==
LOC: ER 07:12
PROVIDERS: Emergency Provider Emergency Medicine; PCP Internal Medicine
DX: R06.02 Shortness of breath (principal); F41.9 Anxiety disorder, unspecified
CPT/HCPCS: 99283

== ENCOUNTER 2019-11-13 00:34 | Outpatient (CLI) | payer MEDICARE, MEDICAID, SELFPAY ==
[2019-11-13] MEDS: Normal Saline - Diluent 50 ML VIAL IV (14:57)
[2019-11-13] MEDS: Normal Saline Flush 10 ML SYR IVP (14:57)
[2019-11-13] MEDS: Omnipaque 350 MG/ML 100 ML BTL IJ (14:57)
--- NOTE | 2019-11-13 15:05 | DI.CT_ITS ---
EXAM: CT NECK W CLINICAL HISTORY: H/O LUNG CA, Z85.118. TECHNIQUE: Imaging Protocol: Axial computed tomography images with coronal and sagittal reformatted images were created and reviewed CONTRAST MATERIAL: Intravenous: Omnipaque 350 Contrast volume:100 mL COMPARISON: CT CT CHEST/ABD/PEL W from 04/01/[address] NECK W from 06/07/2019 FINDINGS: Parotids/submandibular: Within normal limits. Thyroid gland: Within normal limits. Lymphadenopathy: There is scattered lymph nodes seen along the level one to level three all measurin g less than 8 mm in short axis diameter which are physiologic in nature. Carotids/Jugular: Within normal limits. Oropharynx: Within normal limits. Nasopharynx: Within normal limits. Retropharyngeal space: Within normal limits. Hypopharynx: Within normal limits. Larynx: Within normal limits. Bones: Degenerative changes seen in the cervical spine. The findings are most marked at C5-C6. Orbits and orbital soft tissues: Within normal limits. Visualized paranasal sinuses: Within normal limits. Lung apices: There is again seen a right upper lobe soft tissue mass currently measuring 5.1 cm moreno sverse x 2.6 cm AP. The mass is incompletely imaged on the craniocaudad view. Esophagus: Unremarkable. Soft tissues: Within normal limits. IMPRESSION: Known right upper lobe soft tissue mass currently measuring 5.1 transverse x 2.6 AP cm. Findings were discussed with Dr. Gonzalez on 11/14/2019. RADIATION DOSE DELIVERED: 335.37mGy.cm Total DLP 335.37mGy.cm Total DLP DATA REPOSITORY: All CT scans at this facility are submitted to the National Radiology Data Registry (NRDR) Dose Index Registry (DIR) with the [employer] ([employer]). RADIATION OPTIMIZATION: All CT scans at this facility use at least one of these dose optimization te chniques: automated exposure control; mA and/or kV adjustment per patient size (includes targeted exa ms where dose is matched to clinical indication); or iterative reconstruction.
== END 2019-11-13 00:54 ==
PROVIDERS: PCP Internal Medicine; Visit Provider Otolaryngology
DX: C34.11 Malignant neoplasm of upper lobe, right bronchus or lung (principal); M47.812 Spondylosis without myelopathy or radiculopathy, cervical region
CPT/HCPCS: 70491; J3490

== ENCOUNTER 2019-11-19 06:39 | Emergency (ER) | payer MEDICARE, MEDICAID, SELFPAY ==
[2019-11-19] VITALS (40 sets, daily range): BP systolic 113–139; BP diastolic 81–95; PULSE 61–77; RESP 10–25; TEMP 36.6; O2SAT 95–100
--- NOTE | 2019-11-19 06:52 | ED.GENADUL_ITS ---
Discharge Plan Disposition Patient Disposition: HOME Condition: Stable Discharge Details Chief Complaint: Chest Pain Clinical Impression: Dyspepsia, Chest discomfort Primary Care Provider: Deborah Chow ED Provider: Elliot Lizarraga Home Meds and New Rx's Prescriptions: Continued Spiriva with HandiHaler 18 mcg capsule, w/inhalation device 1 cap Inhalation DAILY Qty: 90 RF: 0 mirtazapine 15 mg tablet 15 mg PO HS Qty: 30 RF: 1 albuterol sulfate [ProAir HFA] 90 mcg/actuation HFA aerosol inhaler 2 puff Inhalation Q4H PRN PRN (Reason: Shortness Of Breath) Qty: 1 RF: 5 polyethylene glycol 3350 [Miralax] 17 gram/dose powder 17 gm PO DAILY PRN (Reason: constipation) Qty: 850 RF: 12 bisacodyl 10 mg suppository 10 mg PA DAILY PRN (Reason: constipation) Qty: 8 RF: 0 lubiprostone 24 mcg capsule 24 mcg PO DAILY Qty: 90 RF: 0 clonazepam [Klonopin] 0.5 mg tablet 0.5 mg PO BID PRNRF: 0 cholecalciferol (vitamin D3) 1,000 unit capsule 1,000 unit PO DAILY Qty: 90 RF: 3 calcium carbonate 500 mg calcium (1,250 mg) tablet 500 mg PO BID Qty: 180 RF: 3 Shingrix (PF) 50 mcg/0.5 mL suspension for reconstitution 0.5 ml IM ONCE Qty: 1 RF: 1 apixaban 5 mg tablet 5 mg PO BID Qty: 180 RF: 3 sennosides-docusate sodium [Senna-Time S] 8.6-50 mg tablet 1 tab PO BID Qty: 180 RF: 3 fluoxetine 20 mg tablet 20 mg PO DAILY Qty: 90 RF: 3 hydroxyzine HCl 25 mg tablet 25 mg PO BID PRN (Reason: anxiety) Qty: 180 RF: 2 (DME) [employer] Advantage 1 EACH spacer 1 ea Miscellaneous DIRECTED RF: 0 albuterol sulfate 2.5 MG/3 ML solution for nebulization 2.5 mg Inhalation Q4H PRN PRN (Reason: Shortness Of Breath) 30 Days RF: 0 docusate sodium [Colace] 100 mg capsule 100 mg PO BID Qty: 90 RF: 0 budesonide-formoterol [Symbicort] 10.2 GM HFA aerosol inhaler 10.2 gm Inhalation BID Qty: 3 RF: 3 sucralfate [Carafate] 100 mg/mL suspension 5 ml PO TID Qty: 420 RF: 1 pantoprazole 40 mg tablet,delayed release (DR/EC) 40 mg PO DAILY Qty: 90 RF: 3 Discharge Instructions Instructions: Chest Pain (ED) Additional Instructions: Please contact your primary care physician to arrange follow-up. Please call today to arrange timely follow-up. Additional outpatient diagnostic testing is indicated including stress test. Please discuss this with your doctor. Return to the ER for any worsening or new concerning symptoms. Referrals: Deborah Chow MD [Primary Care Provider] - Discharge Data Discharge Date/Time-TO BE ENTERED AT DEPARTURE: 11/19/19 10:38 Medical Decision Making <Pedro Benavides DO [facility] - Last Filed: 11/19/19 06:59> Is a 64-year-old male who is well-known to the emergency department with a past medical history of COPD, lung mass, anxiety, adjustment disorder, who presents today for evaluation of chest pain chest tightness and shortness of breath. Patient has a history of chronic chest pain chest tightness and shortness of breath however he states that for the last month it is gotten notably worse, and then for the last 48 hours he states that every time he goes out and exercises or exerts himself he states that he feels like there is a ton of bricks on his chest, in addition to mild pain in his arms and shoulders. He denies any fever or chills. He denies any cough, hemoptysis, calf pain, recent long trips surgeries or procedures. He denies any vomiting or diarrhea. No other complaints at this time. No other modifying factors. Exam demonstrates no calf tenderness, normal breath sounds. EKG shows no evidence of significant change. Differential includes the patient's chronic symptoms, however cardiac etiology is on the differential as the symptoms seem to be slightly more atypical for him than normal. PE notably unlikely as he is taking his Eliquis a s directed. Because of the new worsening of his symptoms that occurred this morning while walking I do feel that serial troponins are indicated. We will monitor closely and reassess. Case will be signed out to my colleague Dr. Elliot Lizarraga for reevaluation after serial troponins. EKG 6: 44 Rate 76, intervals normal, sinus rhythm, no significant ST elevations or depressions, no evidence of STEMI <Elliot Lizarraga MD - Last Filed: 11/24/19 08:33> 9:00 --I received signout from Dr. Nichole, please see his documentation regarding initial ED presentation and course. Plan at signout was to follow-up on chest x-ray and delta troponin. Chest x-ray was interpreted by radiology: Stable right upper lobe mass. No acute pulmonary findings 10:14 --repeat screening ECG was reviewed interpreted by me: Significant artifact and erroneous lead placement. Third ECG was reviewed and interpreted by me: Sinus rhythm 65 bpm, normal axis, no STEMI, no significant changes from prior ECG. Delta troponin was reviewed and negative and unchanged. Plan for discharge. Usual customary discharge instructions were reviewed with the patient. Patient understands importance of timely outpatient follow-up. HPI <Pedro Nichole DO - Last Filed: 11/19/19 06:59> General Date/Time Provider Initiated Documentation: 11/19/19 07:34 . HPI Narrative: Is a 64-year-old male who is well-known to the emergency department with a past medical history of COPD, lung mass, anxiety, adjustment disorder, who presents today for evaluation of chest pain chest tightness and shortness of breath. Patient has a history of chronic chest pain chest tightness and shortness of breath however he states that for the last month it is gotten notably worse, and then for the last 48 hours he states that every time he goes out and exercises or exerts himself he states that he feels like there is a ton of bricks on his chest, in addition to mild pain in his arms and shoulders. He denies any fever or chills. He denies any cough, hemoptysis, calf pain, recent long trips surgeries or procedures. He denies any vomiting or diarrhea. No other complaints at this time. No other modifying factors. Related Data Home Medications Medication Instructions Recorded Confirmed [employer] Advantage kit 10/15/17 11/22/19 albuterol sulfate 2.5 mg INHALATION Q4H PRN PRN 30 10/15/17 11/22/19 Days ml budesonide-formoterol [Symbicort] 10.2 gm INHALATION BID #3 inhaler 09/21/18 11/22/19 tiotropium bromide 18 mcg capsule 1 cap INHALATION DAILY #90 inh 09/26/18 11/22/19 with inhalation device mirtazapine 15 mg tablet 15 mg PO HS #30 tab 12/12/18 11/22/19 clonazepam 0.5 mg tablet 0.5 mg PO BID PRN 12/19/18 11/22/19 albuterol sulfate 90 mcg/actuation 2 puff INHALATION Q4H PRN PRN #1 01/03/19 11/22/19 aerosol inhaler inh polyethylene glycol 3350 17 17 gm PO DAILY PRN #850 gm 01/11/19 11/22/19 gram/dose oral powder bisacodyl 10 mg rectal suppository 10 mg PA DAILY PRN #8 each 01/30/19 11/22/19 calcium carbonate 500 mg calcium 500 mg PO BID #180 tab 02/19/19 11/22/19 (1,250 mg) tablet cholecalciferol (vitamin D3) 25 1,000 unit PO DAILY #90 cap 02/19/19 11/22/19 mcg (1,000 unit) capsule lubiprostone 24 mcg capsule 24 mcg PO DAILY #90 cap 04/24/19 11/22/19 docusate sodium [Colace] 100 mg PO BID #90 cap 04/28/19 11/22/19 apixaban 5 mg tablet 5 mg PO BID #180 tab 06/26/19 11/22/19 sennosides 8.6 mg-docusate sodium 1 tab PO BID #180 tab 06/26/19 11/22/19 50 mg tablet varicella-zoster [id number] (PF) 50 0.5 ml IM ONCE #1 each 08/13/19 11/22/19 mcg/0.5 mL IM susp, kit fluoxetine 20 mg tablet 20 mg PO DAILY #90 tab-cap 09/16/19 11/22/19 hydroxyzine HCl 25 mg tablet 25 mg PO BID PRN #180 tab 10/15/19 11/22/19 pantoprazole 40 mg PO DAILY #90 tab 10/18/19 11/22/19 sucralfate [Carafate] 5 ml PO TID #420 ml 10/18/19 11/22/19 Previous Rx's Medication Instructions [facility] 10/15/17 albuterol sulfate 2.5 mg INHALATION Q4H PRN PRN 30 10/15/17 Days ml budesonide-formoterol [Symbicort] 10.2 gm INHALATION BID #3 inhaler 09/21/18 tiotropium bromide 18 mcg capsule 1 cap INHALATION DAILY #90 inh 09/26/18 with inhalation device mirtazapine 15 mg tablet 15 mg PO HS #30 tab 12/12/18 albuterol sulfate 90 mcg/actuation 2 puff INHALATION Q4H PRN PRN #1 01/03/19 aerosol inhaler inh polyethylene glycol 3350 17 17 gm PO DAILY PRN #850 gm 01/11/19 gram/dose oral powder bisacodyl 10 mg rectal suppository 10 mg PA DAILY PRN #8 each 01/30/19 calcium carbonate 500 mg calcium 500 mg PO BID #180 tab 02/19/19 (1,250 mg) tablet cholecalciferol (vitamin D3) 25 1,000 unit PO DAILY #90 cap 02/19/19 mcg (1,000 unit) capsule lubiprostone 24 mcg capsule 24 mcg PO DAILY #90 cap 04/24/19 docusate sodium [Colace] 100 mg PO BID #90 cap 04/28/19 apixaban 5 mg tablet 5 mg PO BID #180 tab 06/26/19 sennosides 8.6 mg-docusate sodium 1 tab PO BID #180 tab 06/26/19 50 mg tablet varicella-zoster [id number] (PF) 50 0.5 ml IM ONCE #1 each 08/13/19 mcg/0.5 mL IM susp, kit fluoxetine 20 mg tablet 20 mg PO DAILY #90 tab-cap 09/16/19 hydroxyzine HCl 25 mg tablet 25 mg PO BID PRN #180 tab 10/15/19 pantoprazole 40 mg PO DAILY #90 tab 10/18/19 sucralfate [Carafate] 5 ml PO TID #420 ml 10/18/19 Allergies Allergy/AdvReac Type Severity Reaction Status Date / Time No Known Allergies Allergy Verified 11/22/19 12:35 General Stated Complaint: Chest Pain FLASH: 2 Review of Systems <Pedro Nichole DO - Last Filed: 11/19/19 06:59> All systems reviewed & are unremarkable except as noted in HPI and below PFSH <Pedro Nichole DO - Last Filed: 11/19/19 06:59> Medical History Adjustment disorder with anxiety (Chronic) Alcohol abuse (Chronic) Anxiety (Chronic) COPD (chronic obstructive pulmonary disease) (Chronic) Dyspepsia (Chronic) Malignant neoplasm of right lung (Chronic) Tubular adenoma of colon (Inactive) Surgical History colonoscopy (Inactive 01/19/15) Also had a decompress colonoscopy with Dr Haresh Vásquez at [facility] on 06/09/18 for significant colon distention seen on CT scan, no prep done,therapeutic, diagnositc, still due for repeat on 01/19/25 History of lung biopsy (Resolved) History of surgery on upper extremity (Resolved) left Status post cataract extraction and insertion of intraocular lens of left eye (Chronic 11/05/18) Family History Father Essential hypertension Hyperlipidemia Paternal Uncle Heart disease Stroke Cerebral hemorrhage Hypertension Brother Cancer head and neck cancer - smoker Social History Smoking/Tobacco Use Status: Former Tobacco Use Quit Date: 06/05/98 Tobacco: How many years used: 30 Smokeless tobacco user: chewing tobacco Quit status: not considering quitting Alcohol Intake: former Drug use: Never Substance use type: does not use Details: Adopted: No Foster care: No Household members: other 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 Housing: apartment Number of Children: 0 Communication Needs: None Do you need help understanding health information?: Often current occupation: not working Current gender identity: male How often do you talk on the phone with friends or family?: three or more times per week Panel score (0-1 are the most socially isolated patients): 1 What type of physical activity do you participate in: none and other Details: started lifting weights Frequency: daily Seatbelt use: always Drive intox or ride w/intox 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 Exam <Pedro Kennedy DO [facility] - Last Filed: 11/19/19 06:59> Narrative Exam Narrative: 1.Const: Well-nourished, Well-developed, appearing stated age 2.Eyes: PERRL, no conjunctival injection, and symmetrical lids. 3.ENT: Atraumatic external nose and ears. Moist MM. Neck: Symmetric, trachea midline, No thyromegaly. 4.CVS: +S1/S2, No murmurs or gallops. Peripheral pulses 2+ and equal in all extremities. Brisk capillary refill in all extremities. 5.RESP: Unlabored respiratory effort. Clear to auscultation bilaterally. No wheezes rales or rhonchi 6.GI: Soft, Nontender/Nondistended, No hepatosplenomegaly. No guarding or rebound. 7.MSK: Normocephalic/Atraumatic, Extremities w/o deformity or ttp No cyanosis or clubbing, Normal movement of all extremities. No calf tenderness 8.Skin: Warm, Dry. No rashes or lesions. 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 Sensation grossly intact, no focal neurologic deficits. 10.Psych: (AAO) x3. Appropriate mood and affect Course <Pedro Nichole DO - Last Filed: 11/19/19 06:59> Vital Signs Vital signs: Vital Signs Temperature 36.6 C 11/19/19 06:47 Pulse 77 11/19/19 06:47 Respiratory Rate 16 11/19/19 06:47 Blood Pressure 129/89 11/19/19 06:47 Pulse Oximetry 98 11/19/19 06:47 Temperature 36.6 C 11/19/19 06:47 Temperature Source Skin 11/19/19 06:47 Pulse 77 11/19/19 06:47 Respiratory Rate 16 11/19/19 06:47 Respiratory Effort Non-Labored 11/19/19 06:49 Blood Pressure 129/89 11/19/19 06:47 Blood Pressure Position Sitting 11/19/19 06:47 Pulse Oximetry 98 11/19/19 06:47 Oxygen Delivery Method Room Air 11/19/19 06:47 Oxygen Flow Rate 0 11/19/19 06:47 Sign Out <Pedro Nichole DO - Last Filed: 11/19/19 06:59> Sign Out Data: Sign Out Comment: Reevaluation after 3-hour troponin Last updated by Pedro Nichole DO at 11/19/19 06:59
[2019-11-19 07:11] LABS: Abs Immature Grans 0.02 k/cumm (0.0-0.09); Absolute Basophil Count 0.01 k/cumm (0.0-0.2); Absolute Eosinophil Count 0.08 k/cumm (0.0-0.7); Absolute Lymphocyte Count 1.18 k/cumm (1.2-3.4); Absolute Monocyte Count 0.38 k/cumm (0.11-0.7); Basophils % 0.2; Eosinophils % 1.9; HCT 42.5 % (40.0-50.0); HGB 14.4 g/dL (13.5-17.5); Immature Grans % 0.5 %; Lymphocytes % 28.7; Mean Corp. HGB Concentration 33.9 g/dL (32.0-36.0); Mean Corpuscular Hemoglobin 29.6 pg (27.0-33.0); Mean Corpuscular Volume 87.3 fL (80-95); Mean Platelet Volume 9.7 fL (8.0-11.0); Monocytes % 9.2; Neutrophils % 59.5; Platelet Count 246 x1000/uL (130-400); RBC 4.87 m/cumm (4.50-6.00); RBC Distribution Width 12.8 % (11.8-14.1); White Blood Cell Count 4.11 k/cumm (4.4-10.8)
[2019-11-19 07:17] LABS: Absolute Neutrophil Count 2.45 k/cumm (1.2-6.7)
[2019-11-19 07:40] LABS: Lipase 367 U/L (73-393)
[2019-11-19 07:41] LABS: Troponin I < 0.05 ng/mL (<0.06)
[2019-11-19 07:42] LABS: ALT 25 U/L (16-63); AST 23 U/L (15-37); Albumin 3.5 g/dL (3.4-5.0); Alkaline Phosphatase 92 U/L (46-116); Anion Gap 7.3 mmol/L (3-11); BUN 18 mg/dL (7-18); Bilirubin, Total 0.5 mg/dL (0.2-1.0); CO2 29.7 mmol/L (21.0-32.0); CREATININE 1.16 mg/dL (0.70-1.30); Calcium 8.2 mg/dL (8.5-10.1); Chloride 104 mmol/L (98-107); Glucose 120 mg/dL (74-106); NT-proBNP 17 pg/mL (<300); Potassium 3.8 mmol/L (3.5-5.1); Sodium 141 mmol/L (136-145); Total Protein 7.1 g/dL (6.4-8.2)
--- NOTE | 2019-11-19 07:45 | DI.RAD_ITS ---
EXAM: XR PORTABLE CHEST AP CLINICAL HISTORY: sob TECHNIQUE: 2D digital imaging was performed. COMPARISON: No exams were available for comparison FINDINGS: Heart size is normal. The aorta is mildly tortuous. There is a stable right upper lobe mass. The l ungs are otherwise clear. No infiltrate, effusion or pulmonary edema is seen. IMPRESSION: Stable right upper lobe mass. No acute pulmonary findings. DATA REPOSITORY: RADIATION DOSE DELIVERED:
[2019-11-19 07:51] LABS: INR 0.9 (0.9-1.1); Prothrombin Time 9.5 sec (9.3-11.0)
[2019-11-19 08:03] LABS: PTT Activated 25.9 sec (21.0-31.4)
[2019-11-19 10:20] LABS: Troponin I < 0.05 ng/mL (<0.06)
== END 2019-11-19 10:38 | disposition home or self-care (01) ==
PROVIDERS: Student in an Organized Health Care Education/Training Program; Emergency Provider Student in an Organized Health Care Education/Training Program; PCP Internal Medicine
DX: R10.13 Epigastric pain (principal); R07.89 Other chest pain; Z79.01 Long term (current) use of anticoagulants; J44.9 Chronic obstructive pulmonary disease, unspecified; Z87.891 Personal history of nicotine dependence
CPT/HCPCS: 36415; 80053; 83690; 93005; 99285; 71045; 83880; 84484; 85025; 85379; 85610; 85730; 93010; 99284

== ENCOUNTER 2019-11-22 12:33 | Emergency (ER) | payer MEDICARE, MEDICAID, SELFPAY ==
[2019-11-22] VITALS (29 sets, daily range): BP systolic 111–148; BP diastolic 76–96; PULSE 66–89; RESP 14–31; TEMP 36.7; O2SAT 93–98
--- NOTE | 2019-11-22 12:45 | DI.RAD_ITS ---
EXAM: XR PORTABLE CHEST AP CLINICAL HISTORY: chest pain TECHNIQUE: 2D digital imaging was performed. COMPARISON: No exams were available for comparison FINDINGS: LUNGS: Clear. No pleural abnormality seen. HEART: Normal. MEDIASTINUM: Normal. OTHER FINDINGS: None. IMPRESSION: No acute pulmonary findings. DATA REPOSITORY: RADIATION DOSE DELIVERED:
[2019-11-22] MEDS: LORazepam 2 MG/ML VIAL 0.5 MG IVP (13:00)
[2019-11-22 13:03] LABS: Abs Immature Grans 0.02 k/cumm (0.0-0.09); Absolute Basophil Count 0.01 k/cumm (0.0-0.2); Absolute Eosinophil Count 0.05 k/cumm (0.0-0.7); Absolute Lymphocyte Count 1.13 k/cumm (1.2-3.4); Absolute Monocyte Count 0.46 k/cumm (0.11-0.7); Absolute Neutrophil Count 2.76 k/cumm (1.2-6.7); Basophils % 0.2; Eosinophils % 1.1; HCT 42.4 % (40.0-50.0); HGB 14.1 g/dL (13.5-17.5); Immature Grans % 0.5 %; Lymphocytes % 25.5; Mean Corp. HGB Concentration 33.3 g/dL (32.0-36.0); Mean Corpuscular Hemoglobin 29.1 pg (27.0-33.0); Mean Corpuscular Volume 87.4 fL (80-95); Mean Platelet Volume 9.8 fL (8.0-11.0); Monocytes % 10.4; Neutrophils % 62.3; Platelet Count 250 x1000/uL (130-400); RBC 4.85 m/cumm (4.50-6.00); White Blood Cell Count 4.43 k/cumm (4.4-10.8)
[2019-11-22 13:17] LABS: ALT 24 U/L (16-63); AST 22 U/L (15-37); Albumin 3.6 g/dL (3.4-5.0); Alkaline Phosphatase 92 U/L (46-116); Anion Gap 9.9 mmol/L (3-11); BUN 22 mg/dL (7-18); CO2 27.1 mmol/L (21.0-32.0); CREATININE 1.24 mg/dL (0.70-1.30); Calcium 8.3 mg/dL (8.5-10.1); Chloride 105 mmol/L (98-107); Estimated GFR 58.51 (mL/min/1.73m2); Glucose 126 mg/dL (74-106); Magnesium 2.5 mg/dL (1.8-2.4); Potassium 3.9 mmol/L (3.5-5.1); Sodium 142 mmol/L (136-145); Total Protein 7.5 g/dL (6.4-8.2)
[2019-11-22 13:18] LABS: Troponin I < 0.05 ng/mL (<0.06)
--- NOTE | 2019-11-22 15:39 | ED.GENADUL_ITS ---
Discharge Plan Disposition Patient Disposition: HOME Condition: Stable Discharge Details Chief Complaint: Chest Pain Clinical Impression: Anxiety, Chest pain Primary Care Provider: Deborah Chow ED Provider: Saira Tejada Home Meds and New Rx's Prescriptions: Continued Spiriva with HandiHaler 18 mcg capsule, w/inhalation device 1 cap Inhalation DAILY Qty: 90 RF: 0 mirtazapine 15 mg tablet 15 mg PO HS Qty: 30 RF: 1 albuterol sulfate [ProAir HFA] 90 mcg/actuation HFA aerosol inhaler 2 puff Inhalation Q4H PRN PRN (Reason: Shortness Of Breath) Qty: 1 RF: 5 polyethylene glycol 3350 [Miralax] 17 gram/dose powder 17 gm PO DAILY PRN (Reason: constipation) Qty: 850 RF: 12 bisacodyl 10 mg suppository 10 mg [place] DAILY PRN (Reason: constipation) Qty: 8 RF: 0 lubiprostone 24 mcg capsule 24 mcg PO DAILY Qty: 90 RF: 0 clonazepam [Klonopin] 0.5 mg tablet 0.5 mg PO BID PRNRF: 0 cholecalciferol (vitamin D3) 1,000 unit capsule 1,000 unit PO DAILY Qty: 90 RF: 3 calcium carbonate 500 mg calcium (1,250 mg) tablet 500 mg PO BID Qty: 180 RF: 3 Shingrix (PF) 50 mcg/0.5 mL suspension for reconstitution 0.5 ml IM ONCE Qty: 1 RF: 1 apixaban 5 mg tablet 5 mg PO BID Qty: 180 RF: 3 sennosides-docusate sodium [Senna-Time S] 8.6-50 mg tablet 1 tab PO BID Qty: 180 RF: 3 fluoxetine 20 mg tablet 20 mg PO DAILY Qty: 90 RF: 3 hydroxyzine HCl 25 mg tablet 25 mg PO BID PRN (Reason: anxiety) Qty: 180 RF: 2 (DME) [employer] Advantage 1 EACH spacer 1 ea Miscellaneous DIRECTED RF: 0 albuterol sulfate 2.5 MG/3 ML solution for nebulization 2.5 mg Inhalation Q4H PRN PRN (Reason: Shortness Of Breath) 30 Days RF: 0 docusate sodium [Colace] 100 mg capsule 100 mg PO BID Qty: 90 RF: 0 budesonide-formoterol [Symbicort] 10.2 GM HFA aerosol inhaler 10.2 gm Inhalation BID Qty: 3 RF: 3 sucralfate [Carafate] 100 mg/mL suspension 5 ml PO TID Qty: 420 RF: 1 pantoprazole 40 mg tablet,delayed release (DR/EC) 40 mg PO DAILY Qty: 90 RF: 3 Discharge Instructions Instructions: Chest Pain (ED), Anxiety (ED) Additional Instructions: Your evaluation today was reassuring. We spoke with your primary care doctors office today regarding your plan Please follow-up with your primary care doctor on Monday at 1215. Please follow-up with your outpatient stress test. Use Ativan provided in the ER if needed for panic attack. Please take 1 tablet for onset of severe anxiety as discussed. Do not mix this with alcohol. Do not attempt to drive while taking this medication. This can cause drowsiness. Return immediately for worsening of your symptoms, alarming symptoms, difficulty breathing if needed as discussed Discharge Data Discharge Date/Time-TO BE ENTERED AT DEPARTURE: 11/22/19 16:35 Medical Decision Making This is a 64-year-old patient presenting to the emergency room for complaints of chest pain which she reports began while mowing the lawn. Patient reports he had been mowing the lawn for 1 hour prior to onset of his symptoms. Patient describes chest pain in the mid chest with radiation toward his neck and left arm. Patient reports difficulty getting in a breath of air however he is able to breathe out without difficulty. Patient reports he is feeling quite anxious. Patient reports he took no medication prior to arrival. Patient does arrive to the emergency room via EMS today. This is a patient that is well-known to the emergency room and has had several visits for similar complaints. Patient has had recent cardiac evaluation in the emergency room which was ultimately unremarkable. She will patient does have a history of adjustment disorder and anxiety, history of alcohol abuse although he reports he has not drank in 1-1/2 years, history of anxiety, COPD, dyspepsia, right lung neoplasm. On initial evaluation to the emergency room patient was on the monitor and vital signs are normal. EKG obtained revealing heart rate 86, sinus rhythm. No ST segment changes. Reviewed with Dr. Mj Chen. Plan to evaluate with ACS work-up as well as manage acute anxiety. We will plan to provide 1 mg of Ativan after initial evaluation. Patient agrees this plan of care Initial labs are reassuring. No elevation of patient's troponin. No leukocytosis. Renal function reviewed, electrolytes reviewed. LFTs reviewed within normal limits. Patient reevaluated after Ativan and is feeling significantly improved, sensation of difficulty breathing has improved. Patient's chest x-ray unremarkable for acute abnormalities Reviewed patient's previous ER evaluation. Patient recently had CT of his neck as well as ACS work-up which was unremarkable. Patient's last stress test noted to be in June 2018. Patient also had echocardiogram. Subsequent reevaluation of patient he is sleeping comfortably in the bed. He awoke and reports he is feeling significantly better but does have mild persistence of his chest pain. Patient does report he feels safe is staying in the hospital however we did have a long discussion about this and patient does report this is primarily because he feels he is having panic attacks during his severe panic attacks he begins to have sensation of difficulty breathing and chest pain. These symptoms are well-known to the patient. Patient reports they are extremely scary sensations. Patient does report he feels significantly improved after taking Ativan in the emergency room. Patient reports he does not have any in case panic attack medications. Of note patient is on clonazepam at home 0.5 mg twice daily. Given that patient has been seen in the emergency room for anxiety, chest pain, dyspepsia and shortness of breath on a very regular basis I feel the likelihood of this patient having acute ACS with similar presenting symptoms is unlikely as he has undergone several evaluations for ACS in the past. After long conversation with the patient discussing benefit of being hospitalized for a stress test however would not be stressed for several days as tomorrow begins the weekend versus having outpatient stress testing ordered to expedite his evaluation and follow-up with PCP with addition of having an emergency in case Ativan tablets for home. Patient agrees with this plan of care. I did speak with patient's PCP office to discuss this plan of care, as well as patient's frequent visits to the emergency room for chest pain, anxiety and d yspepsia. PCP office does recommend trying to coordinate with care management and try to come up with a plan to defer frequent ER visits to the PCP office. They will follow-up with the patient in the office on Monday at 1215. They will follow-up with outpatient stress testing. Patient stress test was ordered to expedite his management. Of note patient did have a few visits in the last week and a half and ultimately it was recommended that he follow-up with his PCP and have consideration for stress testing which the patient did not pursue. I am concerned that this patient is unlikely to follow-up if appointments are not made therefore stress test was ordered and PCP appointment made prior to his discharge from the ER. 3-hour troponin reveals no delta change and remains normal. Repeat EKG reveals a heart rate of 69. No ST segment changes. Sinus rhythm. QTc 428. This was reviewed with Dr. Chen. Time patient does feel comfortable with discharge plan, will be provided Ativan to go if needed for severe panic or onset of anxiety. Patient will follow-up with PCP as scheduled appointment on Monday. Outpatient stress testing ordered. Alarming signs and symptoms for which patient should return were discussed. Patient reports his understanding. The patient was stable and requested discharge. Prior to discharge, my usual and customary return precautions were reviewed with the patient - this included follow-up instructions and reasons to return to the Emergency Department if conditions worsens, does not improve as expected, or other new concerns arise. HPI General Date/Time Provider Initiated Documentation: 11/22/19 12:35 . HPI Narrative: This is a 64-year-old patient presenting to the emergency room for complaints of chest pain which began while he was mowing the lawn. Patient reports he awoke pain-free. Patient reports he ate breakfast without difficulty. Patient reports he began mowing the lawn at approximately 11:00 AM. After using a push mower for approximately 1 hour patient began to develop substernal and left- sided chest pain with radiation to his neck, left shoulder and arm. Patient reports 1 hour of persistent pain. Patient reports mild nausea associated. Denies vomiting. Denies any fevers or chills. Patient reports some shortness of breath associated which patient reports is somewhat chronic. Patient reports he is able to breathe out without difficulty but feels tightness when breathing in. Patient denies any insect sting or allergy. Denies any swelling. Denies any itching or rash. Patient denies obvious headache patient does describe mild lightheadedness. Related Data Home Medications Medication Instructions Recorded Confirmed [employer] Advantage kit 10/15/17 11/22/19 albuterol sulfate 2.5 mg INHALATION Q4H PRN PRN 30 10/15/17 11/22/19 Days ml budesonide-formoterol [Symbicort] 10.2 gm INHALATION BID #3 inhaler 09/21/18 11/22/19 tiotropium bromide 18 mcg capsule 1 cap INHALATION DAILY #90 inh 09/26/18 11/22/19 with inhalation device mirtazapine 15 mg tablet 15 mg PO HS #30 tab 12/12/18 11/22/19 clonazepam 0.5 mg tablet 0.5 mg PO BID PRN 12/19/18 11/22/19 albuterol sulfate 90 mcg/actuation 2 puff INHALATION Q4H PRN PRN #1 01/03/19 11/22/19 aerosol inhaler inh polyethylene glycol 3350 17 17 gm PO DAILY PRN #850 gm 01/11/19 11/22/19 gram/dose oral powder bisacodyl 10 mg rectal suppository 10 mg [place] DAILY PRN #8 each 01/30/19 11/22/19 calcium carbonate 500 mg calcium 500 mg PO BID #180 tab 02/19/19 11/22/19 (1,250 mg) tablet cholecalciferol (vitamin D3) 25 1,000 unit PO DAILY #90 cap 02/19/19 11/22/19 mcg (1,000 unit) capsule lubiprostone 24 mcg capsule 24 mcg PO DAILY #90 cap 04/24/19 11/22/19 docusate sodium [Colace] 100 mg PO BID #90 cap 04/28/19 11/22/19 apixaban 5 mg tablet 5 mg PO BID #180 tab 06/26/19 11/22/19 sennosides 8.6 mg-docusate sodium 1 tab PO BID #180 tab 06/26/19 11/22/19 50 mg tablet varicella-zoster [id number] (PF) 50 0.5 ml IM ONCE #1 each 08/13/19 11/22/19 mcg/0.5 mL IM susp, kit fluoxetine 20 mg tablet 20 mg PO DAILY #90 tab-cap 09/16/19 11/22/19 hydroxyzine HCl 25 mg tablet 25 mg PO BID PRN #180 tab 10/15/19 11/22/19 pantoprazole 40 mg PO DAILY #90 tab 05/15/20 06/19/20 sucralfate [Carafate] 5 ml PO TID #420 ml 10/18/19 11/22/19 Previous Rx's Medication Instructions Recorded [employer] Advantage kit 10/15/17 albuterol sulfate 2.5 mg INHALATION Q4H PRN PRN 30 10/15/17 Days ml budesonide-formoterol [Symbicort] 10.2 gm INHALATION BID #3 inhaler 09/21/18 tiotropium bromide 18 mcg capsule 1 cap INHALATION DAILY #90 inh 09/26/18 with inhalation device mirtazapine 15 mg tablet 15 mg PO HS #30 tab 12/12/18 albuterol sulfate 90 mcg/actuation 2 puff INHALATION Q4H PRN PRN #1 01/03/19 aerosol inhaler inh polyethylene glycol 3350 17 17 gm PO DAILY PRN #850 gm 01/11/19 gram/dose oral powder bisacodyl 10 mg rectal suppository 10 mg W[place] DAILY PRN #8 each 01/30/19 calcium carbonate 500 mg calcium 500 mg PO BID #180 tab 02/19/19 (1,250 mg) tablet cholecalciferol (vitamin D3) 25 1,000 unit PO DAILY #90 cap 02/19/19 mcg (1,000 unit) capsule lubiprostone 24 mcg capsule 24 mcg PO DAILY #90 cap 04/24/19 docusate sodium [Colace] 100 mg PO BID #90 cap 04/28/19 apixaban 5 mg tablet 5 mg PO BID #180 tab 06/26/19 sennosides 8.6 mg-docusate sodium 1 tab PO BID #180 tab 06/26/19 50 mg tablet varicella-zoster [id number] (PF) 50 0.5 ml IM ONCE #1 each 08/13/19 mcg/0.5 mL IM susp, kit fluoxetine 20 mg tablet 20 mg PO DAILY #90 tab-cap 09/16/19 hydroxyzine HCl 25 mg tablet 25 mg PO BID PRN #180 tab 10/15/19 pantoprazole 40 mg PO DAILY #90 tab 10/18/19 sucralfate [Carafate] 5 ml PO TID #420 ml 10/18/19 Allergies Allergy/AdvReac Type Severity Reaction Status Date / Time No Known Allergies Allergy Verified 11/22/19 12:35 General Stated Complaint: Chest Pain FLASH: 2 Review of Systems All systems reviewed & are unremarkable except as noted in HPI and below PFSH Medical History Adjustment disorder with anxiety (Chronic) Alcohol abuse (Chronic) Anxiety (Chronic) COPD (chronic obstructive pulmonary disease) (Chronic) Dyspepsia (Chronic) Malignant neoplasm of right lung (Chronic) Tubular adenoma of colon (Inactive) Social History Smoking/Tobacco Use Status: Former Tobacco Use Quit Date: 06/05/98 Tobacco: How many years used: 30 Smokeless tobacco user: chewing tobacco Quit status: not considering quitting Alcohol Intake: former Drug use: Never Substance use type: does not use Details: Adopted: No Foster care: No Household members: other Details: [employer] Care Provider 26/12 Housing: apartment Number of Children: 0 Communication Needs: None Do you need help understanding health information?: Often current occupation: not working Current gender identity: male How often do you talk on the phone with friends or family?: three or more times per week Panel score (0-1 are the most socially isolated patients): 1 What type of physical activity do you participate in: none and other Details: started lifting weights Frequency: daily Seatbelt use: always Drive intox or ride w/intox 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 Exam Narrative Exam Narrative: CONST: Anxious appearing patient. Well hydrated. Alert and oriented. HENMT: Head nomocephalic, normal to inspection. Atraumatic. Hearing grossly normal. External ear canal no erythema or swelling. TM normal bilaterally. Nose normal to inspection. No rhinnorhea. Normal facial exam. Oral mucosa normal. Tounge normal. Dentition normal. Normal posterior oropharynx. Uvula midline. EYES: General normal appearance. Alignment normal. Eyelids normal. Conjunctiva normal. Sclera normal. PERRL. NECK: Normal visual inspection. FROM. No lymphadenopathy. Trachea midline. No Midline tenderness. CHEST: Normal insepection of the chest. RESP: Normal respiratory effort. Speaking full sentences. No cough. No wheezing. No retractions. Clear to auscaltation. Breath sound equal and present bilaterally. CARDIO: No JVD. Normal PMI. Regular Rate. Regular Rhythm. Normal peripheral pulses. GI: Normal inspection of abdomen. No distension. Soft. Nontender. Bowel sounds present in all 4 quadrants. No rebound. No gaurding. MUSCULOSKELETAL: Normal Gait. FROM of all extremities. Distal neurovascularly intact. Sensation intact distally. No distal edema present in bilateral lower extremities SKIN: Normal. Dry. No rashes. NEURO: Alert and awake. Speech clear. PSYCH: Normal affect. Cooperative. Course Vital Signs Vital signs: Vital Signs Temperature 36.7 C 11/22/19 12:33 Pulse 89 11/22/19 12:33 Respiratory Rate 20 11/22/19 12:33 Blood Pressure 148/96 H 11/22/19 12:33 Pulse Oximetry 95 11/22/19 12:33 Temperature 36.7 C 11/22/19 12:33 Temperature Source Tympanic 11/22/19 15:12 Pulse 77 11/22/19 15:12 Pulse 70 11/22/19 15:01 Respiratory Rate 18 11/22/19 15:12 Respiratory Effort Non-Labored 11/22/19 12:47 Respiratory Depth Normal 11/22/19 12:45 Respiratory Pattern Normal 11/22/19 12:45 Blood Pressure 121/84 11/22/19 15:12 Blood Pressure Mean 91 11/22/19 15:01 Blood Pressure Position Sitting 11/22/19 12:33 Pulse Oximetry 98 11/22/19 15:12 Oxygen Delivery Method Room Air 11/22/19 15:12 Oxygen Flow Rate 0 11/22/19 15:12 Pain Level 0 11/22/19 15:12 Lab/Test Results Lab/Test Results: Laboratory Tests Range/Units 11/22/19 11/22/19 12:55 12:55 WBC (4.4-10.8) k/cumm 4.43 RBC (4.50-6.00) m/cumm 4.85 Hgb (13.5-17.5) g/dL 14.1 Hct (40.0-50.0) % 42.4 MCV (80-95) fL 87.4 MCH (27.0-33.0) pg 29.1 MCHC (32.0-36.0) g/dL 33.3 RDW (11.8-14.1) % 13.0 Plt Count (130-400) x1000/uL 250 MPV (8.0-11.0) fL 9.8 Immature Gran % % 0.5 Neutrophils % 62.3 Lymphocytes % 25.5 Monocytes % 10.4 Eosinophils % 1.1 Basophils % 0.2 Absolute Neutrophils (1.2-6.7) k/cumm 2.76 Absolute Lymphocytes (1.2-3.4) k/cumm 1.13 L Absolute Monocytes (0.11-0.7) k/cumm 0.46 Absolute Eosinophils (0.0-0.7) k/cumm 0.05 Absolute Basophils (0.0-0.2) k/cumm 0.01 Sodium (136-145) mmol/L 142 Potassium (3.5-5.1) mmol/L 3.9 Chloride (98-107) mmol/L 105 Carbon Dioxide (21.0-32.0) mmol/L 27.1 Anion Gap (3-11) mmol/L 9.9 BUN (7-18) mg/dL 22 H Creatinine (0.70-1.30) mg/dL 1.24 Estimated GFR/1.73 m2 (mL/min/1.73m2) 58.51 Glucose (74-106) mg/dL 126 H Calcium (8.5-10.1) mg/dL 8.3 L Magnesium (1.8-2.4) mg/dL 2.5 H Total Bilirubin (0.2-1.0) mg/dL 1.0 AST (15-37) U/L 22 ALT (16-63) U/L 24 Alkaline Phosphatase (46-116) U/L 92 Troponin I (<0.06) ng/mL < 0.05 Total Protein (6.4-8.2) g/dL 7.5 Albumin (3.4-5.0) g/dL 3.6
--- NOTE | 2019-11-22 15:45 | NUR.NOTE ---
Nursing Note: Repeat EKG provided to Renita ANDERSON) for review.
[2019-11-22 16:22] LABS: Troponin I < 0.05 ng/mL (<0.06)
--- NOTE | 2019-11-22 16:23 | NUR.NOTE ---
REFERRED TO DI FOR STRESS TEST 11/22/2019 Nursing Note:
== END 2019-11-22 16:35 | disposition home or self-care (01) ==
PROVIDERS: Emergency Provider Physician Assistant; PCP Internal Medicine
DX: R07.89 Other chest pain (principal); F41.9 Anxiety disorder, unspecified; J44.9 Chronic obstructive pulmonary disease, unspecified; Z87.891 Personal history of nicotine dependence
CPT/HCPCS: 36415; 80053; 93005; 96374; 99285; 71045; 83735; 84484; 85025; 93010; 99284; J2060

== ENCOUNTER 2019-11-28 00:58 | Outpatient (CLI) | payer MEDICARE, MEDICAID, SELFPAY ==
--- NOTE | 2019-11-28 09:00 | ETT_ITS ---
APPROVED REPORT Exam: Exercise Treadmill Patient Location: Out-Patient Room/Bed: Stress Nurse: Teodora Ewing RN BMI: 25.08 Baseline Rhythm: Sinus Rhythm Indications: Patient reports midsternal chest ???tightness??? and SOB at rest several times per day f or the past month. He reports occasional lightheadedness and ???throat pain??? with these episodes. Medical History Medical History: Anxiety, Chronic Chest Wall Pain, Cognitive Impairment, Local Lung Cancer, Negative Stress Test April 2019. Cardiac Medications: Apixaban. Allergies: No known drug allergies Cardiac Risk Factors: FHX of CAD, COPD Previous Cardiac Procedures: None Pretest Chest Pain Characteristics: Chest ???tightness??? 8/10 and SOB at rest. Exercise History: Physically active Physical Disabilities: Legs Lung Sounds: Clear to auscultation Heart Sounds: Regular Stress Test Details Test: Exercise stress testing was performed using a Elder protocol. Rest Stress HR Resting HR Supine: 67 bpm Max Heart Rate (APMHR): 155 bpm Resting HR Standin bpm Target HR (85% APMHR): 131 bpm Max HR Achieved: 148 bpm % of APMHR: 95 HR response to stress: Normal HR response to stress BP Resting BP Supine: 156/90 mmHg Resting BP Standin/92 mmHg Max BP: 172/80 mmHg BP response to stress: Normal blood pressure response to stress. ECG Resting ECG: Sinus Rhythm Stress ECG: Sinus Tachycardia ST Change: No significant ST segment changes noted. Arrhythmia: None Recovery ECG: Sinus Rhythm Recovery ST Change: Normal Recovery Arrhythmia: None Clinical Reason for Termination: SOB and difficulty walking on treadmill. Stress Symptoms: Chest ???tightness??? 8/10 and SOB during test. Patient reports chest tightness and SOB was worse during stress test. Exercise duration: 3 min6 sec Highest Stage Reached: Stage 2: 2.5 mph at 12% grade. Exercise capacity: 4.77 METs Functional Capacity: Markedly diminished capacity Stress ECG Conclusion 1. Patient exercised for 3 minutes (5 METS). Stress was stopped due to difficulty walking on the damon admill and shortness of breath. Patient had chest pain but not exercise limiting. 2. Rate-pressure product was 21,000. 3. There is no evidence of ischemia on the ECG portion of the exam at this level of stress. 4. The Calvo Score ( -1) estimates an annual cardiovascular mortality of 1% and a five year survival o f 91%. Using the Calvo Score there is an intermediate probability of angiographic coronary disease. Stress Test Summary STAGE Time (mins) Speed (mph) Grade (%) HR BP SYMPTOMS METS Supine 67 156/90 Standing 82 150/92 1 3 1.7 10 135 4.6 1 min recovery 126 168/84 3 min recovery 81 172/80 6 min recovery 74 148/82
== END 2019-11-28 01:18 ==
PROVIDERS: PCP Internal Medicine; Visit Provider Physician Assistant
DX: R07.89 Other chest pain (principal); R06.02 Shortness of breath; R41.9 Unspecified symptoms and signs involving cognitive functions and awareness; R41.89 Other symptoms and signs involving cognitive functions and awareness
CPT/HCPCS: 93016; 93018; 93017

== ENCOUNTER 2019-12-03 06:56 | Emergency (ER) | payer MEDICARE, MEDICAID, SELFPAY ==
[2019-12-03 06:39] VITALS: BP 151/89; PULSE 78; RESP 16; TEMP 37.1; O2SAT 99
--- NOTE | 2019-12-03 07:00 | DI.RAD_ITS ---
EXAM: XR CHEST 2V PA LATERAL CLINICAL HISTORY: History of lung cancer, feels chest tightness TECHNIQUE: 2D digital imaging was performed. COMPARISON: CR XR CHEST 2V PA LATERAL from 05/13/2019 CR RF BARIUM SWALLOW from 08/21/2019 CR XR PORTABLE CHEST AP from 11/19/2019 CR XR PORTABLE CHEST AP from 11/22/2019 FINDINGS: MEDIASTINUM: Normal. HEART: Normal. PULMONARY VASCULATURE: Normal. LUNGS: The right upper lobe mass is stable. No focal infiltrates are seen. PLEURAL SPACE: No pleural effusion or pneumothorax. BONE:Normal. OTHER FINDINGS:Normal. IMPRESSION: Stable right upper lobe mass. No acute pulmonary process. DATA REPOSITORY: RADIATION DOSE DELIVERED:
--- NOTE | 2019-12-03 07:06 | ED.GENADUL_ITS ---
Discharge Plan Disposition Patient Disposition: HOME Condition: Improving Discharge Details Chief Complaint: RespSymp Clinical Impression: Globus hystericus Primary Care Provider: Deborah Chow ED Provider: Ean Lyons Home Meds and New Rx's Prescriptions: No Action Spiriva with HandiHaler 18 mcg capsule, w/inhalation device 1 cap Inhalation DAILY Qty: 90 RF: 0 mirtazapine 15 mg tablet 15 mg PO HS Qty: 30 RF: 1 albuterol sulfate [ProAir HFA] 90 mcg/actuation HFA aerosol inhaler 2 puff Inhalation Q4H PRN PRN (Reason: Shortness Of Breath) Qty: 1 RF: 5 polyethylene glycol 3350 [Miralax] 17 gram/dose powder 17 gm PO DAILY PRN (Reason: constipation) Qty: 850 RF: 12 bisacodyl 10 mg suppository 10 mg [place] DAILY PRN (Reason: constipation) Qty: 8 RF: 0 lubiprostone 24 mcg capsule 24 mcg PO DAILY Qty: 90 RF: 0 clonazepam [Klonopin] 0.5 mg tablet 0.5 mg PO BID PRNRF: 0 cholecalciferol (vitamin D3) 1,000 unit capsule 1,000 unit PO DAILY Qty: 90 RF: 3 calcium carbonate 500 mg calcium (1,250 mg) tablet 500 mg PO BID Qty: 180 RF: 3 Shingrix (PF) 50 mcg/0.5 mL suspension for reconstitution 0.5 ml IM ONCE Qty: 1 RF: 1 apixaban 5 mg tablet 5 mg PO BID Qty: 180 RF: 3 sennosides-docusate sodium [Senna-Time S] 8.6-50 mg tablet 1 tab PO BID Qty: 180 RF: 3 fluoxetine 20 mg tablet 20 mg PO DAILY Qty: 90 RF: 3 hydroxyzine HCl 25 mg tablet 25 mg PO BID PRN (Reason: anxiety) Qty: 180 RF: 2 (DME) OptiChamber Advantage 1 EACH spacer 1 ea Miscellaneous DIRECTED RF: 0 albuterol sulfate 2.5 MG/3 ML solution for nebulization 2.5 mg Inhalation Q4H PRN PRN (Reason: Shortness Of Breath) 30 Days RF: 0 docusate sodium [Colace] 100 mg capsule 100 mg PO BID Qty: 90 RF: 0 budesonide-formoterol [Symbicort] 10.2 GM HFA aerosol inhaler 10.2 gm Inhalation BID Qty: 3 RF: 3 sucralfate [Carafate] 100 mg/mL suspension 5 ml PO TID Qty: 420 RF: 1 pantoprazole 40 mg tablet,delayed release (DR/EC) 40 mg PO DAILY Qty: 90 RF: 3 Medical Decision Making 64-year-old male with known lung mass, frequent episodes of anxiety. He presents this morning stating he feels recurrent chest tightness. Is not had a cough or wheezing. He denies chest pain. His vital signs are reassuring with normal oxygenation and he is in no acute distress. Screening EKG reveals a normal sinus rhythm with a rate of 71, QRS is narrow, there is no ST segment elevation present. Screening chest x-ray without new acute findings. Discussed with him that he likely does have some component of globus hystericus. Discussed with him management techniques at home. He improved with a single 0.5 mg clonazepam in the ED. HPI General Mode of arrival: ambulatory . Date/Time Provider Initiated Documentation: 12/03/19 07:14 . Limitations to Documentation: no limitations . Information obtained by: patient . History of Present Illness 64 year old M presents to the emergency department with the chief complaint of Chest tightness, described as moderate and similar to prior episodes, Quality is described as constant, and is localized to the chest. Patient reports no radiation. Patient started experiencing this hour(s) and it has been intermittent. No relieving factors improve symptom(s), No exacerbating factors reported . Patient notes denies chest pain, cough, fever/chills and syncope. Patient did receive the following treatments prior to arrival, none Related Data Home Medications Medication Instructions Recorded Confirmed [facility] Advantage kit 10/15/17 11/26/19 albuterol sulfate 2.5 mg INHALATION Q4H PRN PRN 30 10/15/17 12/03/19 Days ml budesonide-formoterol [Symbicort] 10.2 gm INHALATION BID #3 inhaler 09/21/18 12/03/19 tiotropium bromide 18 mcg capsule 1 cap INHALATION DAILY #90 inh 09/26/18 12/03/19 with inhalation device mirtazapine 15 mg tablet 15 mg PO HS #30 tab 12/12/18 12/03/19 clonazepam 0.5 mg tablet 0.5 mg PO BID PRN 12/19/18 12/03/19 albuterol sulfate 90 mcg/actuation 2 puff INHALATION Q4H PRN PRN #1 01/03/19 12/03/19 aerosol inhaler inh polyethylene glycol 3350 17 17 gm PO DAILY PRN #850 gm 01/11/19 12/03/19 gram/dose oral powder bisacodyl 10 mg rectal suppository 10 mg [place] DAILY PRN #8 each 01/30/19 12/03/19 calcium carbonate 500 mg calcium 500 mg PO BID #180 tab 02/19/19 12/03/19 (1,250 mg) tablet cholecalciferol (vitamin D3) 25 1,000 unit PO DAILY #90 cap 02/19/19 12/03/19 mcg (1,000 unit) capsule lubiprostone 24 mcg capsule 24 mcg PO DAILY #90 cap 04/24/19 12/03/19 docusate sodium [Colace] 100 mg PO BID #90 cap 04/28/19 12/03/19 apixaban 5 mg tablet 5 mg PO BID #180 tab 06/26/19 12/03/19 sennosides 8.6 mg-docusate sodium 1 tab PO BID #180 tab 06/26/19 12/03/19 50 mg tablet varicella-zoster gE-AS01B (PF) 50 0.5 ml IM ONCE #1 each 08/13/19 11/22/19 mcg/0.5 mL IM susp, kit fluoxetine 20 mg tablet 20 mg PO DAILY #90 tab-cap 09/16/19 12/03/19 hydroxyzine HCl 25 mg tablet 25 mg PO BID PRN #180 tab 10/15/19 12/03/19 pantoprazole 40 mg PO DAILY #90 tab 10/18/19 12/03/19 sucralfate [Carafate] 5 ml PO TID #420 ml 10/18/19 12/03/19 Previous Rx's Medication Instructions [facility]ed [facility] Ad[facility] kit 10/15/17 albuterol sulfate 2.5 mg INHALATION Q4H PRN PRN 30 10/15/17 Days ml budesonide-formoterol [Symbicort] 10.2 gm INHALATION BID #3 inhaler 09/21/18 tiotropium bromide 18 mcg capsule 1 cap INHALATION DAILY #90 inh 09/26/18 with inhalation device mirtazapine 15 mg tablet 15 mg PO HS #30 tab 12/12/18 albuterol sulfate 90 mcg/actuation 2 puff INHALATION Q4H PRN PRN #1 01/03/19 aerosol inhaler inh polyethylene glycol 3350 17 17 gm PO DAILY PRN #850 gm 01/11/19 gram/dose oral powder bisacodyl 10 mg rectal suppository 10 mg [place] DAILY PRN #8 each 01/30/19 calcium carbonate 500 mg calcium 500 mg PO BID #180 tab 02/19/19 (1,250 mg) tablet cholecalciferol (vitamin D3) 25 1,000 unit PO DAILY #90 cap 02/19/19 mcg (1,000 unit) capsule lubiprostone 24 mcg capsule 24 mcg PO DAILY #90 cap 04/24/19 docusate sodium [Colace] 100 mg PO BID #90 cap 04/28/19 apixaban 5 mg tablet 5 mg PO BID #180 tab 06/26/19 sennosides 8.6 mg-docusate sodium 1 tab PO BID #180 tab 06/26/19 50 mg tablet varicella-zoster gE-AS01B (PF) 50 0.5 ml IM ONCE #1 each 08/13/19 mcg/0.5 mL IM susp, kit fluoxetine 20 mg tablet 20 mg PO DAILY #90 tab-cap 09/16/19 hydroxyzine HCl 25 mg tablet 25 mg PO BID PRN #180 tab 10/15/19 pantoprazole 40 mg PO DAILY #90 tab 10/18/19 sucralfate [Carafate] 5 ml PO TID #420 ml 10/18/19 Allergies Allergy/AdvReac Type Severity Reaction Status Date / Time No Known Allergies Allergy Verified 11/26/19 12:24 General Stated Complaint: RespSymp FLASH: 3 Review of Systems Narrative: Took his regular medications. Denies recent cough or illness. Follow-up with oncology next week. 6 systems reviewed and otherwise negative [facility] Medical History Adjustment disorder with anxiety (Chronic) Alcohol abuse (Chronic) Anxiety (Chronic) COPD (chronic obstructive pulmonary disease) (Chronic) Dyspepsia (Chronic) Malignant neoplasm of right lung (Chronic) Tubular adenoma of colon (Inactive) Surgical History colonoscopy (Inactive 01/19/15) Also had a decompress colonoscopy with Dr Haresh Vásquez at [facility] on 06/09/18 for significant colon distention seen on CT scan, no prep done,therapeutic, diagnositc, still due for repeat on 01/19/25 History of lung biopsy (Resolved) History of surgery on upper extremity (Resolved) left Status post cataract extraction and insertion of intraocular lens of left eye (Chronic 11/05/18) Family History Father Essential hypertension Hyperlipidemia Paternal Uncle Heart disease Stroke Cerebral hemorrhage Hypertension Brother Cancer head and neck cancer - smoker Social History Smoking/Tobacco Use Status: Former Tobacco Use Quit Date: 06/05/98 Tobacco: How many years used: 30 Smokeless tobacco user: chewing tobacco Quit status: not considering quitting Alcohol Intake: former Drug use: Never Substance use type: does not use Details: Adopted: No Foster care: No Household members: other 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 Housing: apartment Number of Children: 0 Communication Needs: None Do you need help understanding health information?: Often current occupation: not working Current gender identity: male How often do you talk on the phone with friends or family?: three or more times per week Panel score (0-1 are the most socially isolated patients): 1 What type of physical activity do you participate in: none and other Details: started lifting weights Frequency: daily Seatbelt use: always Drive intox or ride w/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 Exam Narrative Exam Narrative: GEN: awake, alert, oriented 3. Pleasant, well groomed, interactive. HEAD: Normocephalic, atraumatic ENT: Mucous membranes moist, oropharynx unremarkable, External ear exam unremarkable EYES: PERRL, EOMI NECK: Full ROM, no URSZULA, no menigismus CHEST/RESP: Nontender, clear to auscultation bilateral, no wheeze/rhonchi/rales CARDIOVASCULAR: RRR, no murmur, rub jeannie. 2+ Rad pulse bilateral ABDOMEN: Soft, nontender, no mass. +Bowel sounds EXT: Full ROM, no edema, no rash Neuro: Grossly normal neurologic exam, conversant, interactive. Psych: Speech fluent, thoughts congruent, affect anxious Course Vital Signs Vital signs: Vital Signs Temperature 37.1 C 12/03/19 06:39 Pulse 78 12/03/19 06:39 Respiratory Rate 16 12/03/19 06:39 Blood Pressure 151/89 H 12/03/19 06:39 Pulse Oximetry 99 12/03/19 06:39 Temperature 37.1 C 12/03/19 06:39 Temperature Source Skin 12/03/19 06:39 Pulse 78 12/03/19 06:39 Respiratory Rate 16 12/03/19 06:39 Respiratory Effort 12/03/19 06:45 Blood Pressure 151/89 H 12/03/19 06:39 Blood Pressure Position Sitting 12/03/19 06:39 Pulse Oximetry 99 12/03/19 06:39 Oxygen Delivery Method Room Air 12/03/19 06:39 Oxygen Flow Rate 0 12/03/19 06:39
[2019-12-03] MEDS: clonazePAM 0.5 MG TAB PO (07:26)
--- NOTE | 2019-12-03 07:34 | DI.VRAD_ITS ---
PROCEDURE INFORMATION: Exam: XR Chest, 2 Views Exam date and time: 12/03/2019 7:07 AM Age: 64 years old Clinical indication: Patient HX: History of lung CA, feels chest tightness TECHNIQUE: Imaging protocol: XR of the chest Views: 2 views. COMPARISON: CR XR PORTABLE CHEST AP 11/22/2019 12:56 PM FINDINGS: Lungs: Grossly stable right upper lobe opacity may reflect a mass lesion. Pleural space: Unremarkable. No pleural effusion. No pneumothorax. Heart/Mediastinum: Unremarkable. No cardiomegaly. Bones/joints: Unremarkable. IMPRESSION: Grossly stable right upper lobe opacity may reflect a mass lesion. Dictated and Authenticated by: William Kaminski MD. Ordering:ADELE Mckoy MD
[2019-12-03 08:00] VITALS: TEMP 36.7
== END 2019-12-03 08:07 | disposition home or self-care (01) ==
PROVIDERS: Emergency Provider Emergency Medicine; PCP Internal Medicine
DX: F45.8 Other somatoform disorders (principal); R07.89 Other chest pain; J44.9 Chronic obstructive pulmonary disease, unspecified; Z87.891 Personal history of nicotine dependence
CPT/HCPCS: 93005; 99284; 71046; 93010

== ENCOUNTER 2019-12-04 07:09 | Emergency (ER) | payer MEDICARE, MEDICAID, SELFPAY ==
[2019-12-04] VITALS (34 sets, daily range): BP systolic 109–132; BP diastolic 72–90; PULSE 59–76; RESP 11–28; TEMP 36.3–36.7; O2SAT 94–100
--- NOTE | 2019-12-04 07:47 | ED.GENADUL_ITS ---
Discharge Plan Disposition Patient Disposition: STILL A PATIENT Condition: Improving Discharge Details Chief Complaint: SOB Clinical Impression: Globus hystericus Primary Care Provider: Deborah Chow ED Provider: Ean Lyons Home Meds and New Rx's Prescriptions: No Action Spiriva with HandiHaler 18 mcg capsule, w/inhalation device 1 cap Inhalation DAILY Qty: 90 RF: 0 mirtazapine 15 mg tablet 15 mg PO HS Qty: 30 RF: 1 Hold Instructions: Home Medication placed on hold at Doctor's office albuterol sulfate [ProAir HFA] 90 mcg/actuation HFA aerosol inhaler 2 puff Inhalation Q4H PRN PRN (Reason: Shortness Of Breath) Qty: 1 RF: 5 polyethylene glycol 3350 [Miralax] 17 gram/dose powder 17 gm PO DAILY PRN (Reason: constipation) Qty: 850 RF: 12 bisacodyl 10 mg suppository 10 mg UT DAILY PRN (Reason: constipation) Qty: 8 RF: 0 lubiprostone 24 mcg capsule 24 mcg PO DAILY Qty: 90 RF: 0 clonazepam [Klonopin] 0.5 mg tablet 0.5 mg PO BID PRNRF: 0 Hold Instructions: Home Medication placed on hold at Doctor's office cholecalciferol (vitamin D3) 1,000 unit capsule 1,000 unit PO DAILY Qty: 90 RF: 3 calcium carbonate 500 mg calcium (1,250 mg) tablet 500 mg PO BID Qty: 180 RF: 3 Shingrix (PF) 50 mcg/0.5 mL suspension for reconstitution 0.5 ml IM ONCE Qty: 1 RF: 1 apixaban 5 mg tablet 5 mg PO BID Qty: 180 RF: 3 fluoxetine 20 mg tablet 20 mg PO DAILY Qty: 90 RF: 3 hydroxyzine HCl 25 mg tablet 25 mg PO BID PRN (Reason: anxiety) Qty: 180 RF: 2 budesonide-formoterol [Symbicort] 160-4.5 mcg/actuation HFA aerosol inhaler 2 inh Inhalation BID Qty: 3 RF: 3 pantoprazole 40 mg tablet,delayed release (DR/EC) 40 mg PO DAILY Qty: 90 RF: 3 sennosides-docusate sodium [Senna-Time S] 8.6-50 mg tablet 1 tab PO BID Qty: 180 RF: 3 (DME) [employer] Advantage 1 EACH spacer 1 ea Miscellaneous DIRECTED RF: 0 albuterol sulfate 2.5 MG/3 ML solution for nebulization 2.5 mg Inhalation Q4H PRN PRN (Reason: Shortness Of Breath) 30 Days RF: 0 docusate sodium [Colace] 100 mg capsule 100 mg PO BID Qty: 90 RF: 0 sucralfate [Carafate] 100 mg/mL suspension 5 ml PO TID Qty: 420 RF: 1 Medical Decision Making 64-year-old male known to me from frequent ER visits. I saw him 24 hours ago in the morning. At that time he had an unremarkable chest x-ray and EKG. He states he woke this morning had recurrent tightness of his throat and difficulty swallowing. He denies to me any anxieties but currently is pending a follow-up appointment at [facility] in oncology. Vital signs are normal, oxygenation is 96%. His EKG reveals a normal sinus rhythm with a rate of 74, the QRS is narrow, there is no ST segment elevation. Patient given 0.5 mg of clonazepam and some orange juice. We will ask care management to see him in consultation. Patient to be signed out to oncoming provider pending care management evaluation. HPI General Mode of arrival: ambulatory . Date/Time Provider Initiated Documentation: 12/04/19 07:35 . Limitations to Documentation: no limitations . Information obtained by: patient . History of Present Illness 64 year old M presents to the emergency department with the chief complaint of Tightness of throat, described as similar to prior episodes, Quality is described as dull and constant, and is localized to the neck and chest. Patient reports no radiation. Patient started experiencing this hour(s) and it has been intermittent. No relieving factors improve symptom(s), No exacerbating factors reported . Patient notes denies chest pain, fever/chills and shortness of breath. Patient did receive the following treatments prior to arrival, none Related Data Home Medications Medication Instructions Recorded Confirmed [employer] Advantage kit 10/15/17 11/26/19 albuterol sulfate 2.5 mg INHALATION Q4H PRN PRN 30 10/15/17 12/04/19 Days ml tiotropium bromide 18 mcg capsule 1 cap INHALATION DAILY #90 inh 09/26/18 12/04/19 with inhalation device mirtazapine 15 mg tablet 15 mg PO HS #30 tab 12/12/18 12/04/19 clonazepam 0.5 mg tablet 0.5 mg PO BID PRN 12/19/18 12/04/19 albuterol sulfate 90 mcg/actuation 2 puff INHALATION Q4H PRN PRN #1 01/03/19 12/04/19 aerosol inhaler inh polyethylene glycol 3350 17 17 gm PO DAILY PRN #850 gm 01/11/19 12/04/19 gram/dose oral powder bisacodyl 10 mg rectal suppository 10 mg [place] DAILY PRN #8 each 01/30/19 12/04/19 calcium carbonate 500 mg calcium 500 mg PO BID #180 tab 02/19/19 12/04/19 (1,250 mg) tablet cholecalciferol (vitamin D3) 25 1,000 unit PO DAILY #90 cap 02/19/19 12/04/19 mcg (1,000 unit) capsule lubiprostone 24 mcg capsule 24 mcg PO DAILY #90 cap 04/24/19 12/04/19 docusate sodium [Colace] 100 mg PO BID #90 cap 04/28/19 12/04/19 apixaban 5 mg tablet 5 mg PO BID #180 tab 06/26/19 12/04/19 varicella-zoster gE-AS01B (PF) 50 0.5 ml IM ONCE #1 each 08/13/19 12/04/19 mcg/0.5 mL IM susp, kit fluoxetine 20 mg tablet 20 mg PO DAILY #90 tab-cap 09/16/19 12/04/19 hydroxyzine HCl 25 mg tablet 25 mg PO BID PRN #180 tab 10/15/19 12/04/19 sucralfate [Carafate] 5 ml PO TID #420 ml 10/18/19 12/04/19 budesonide-formoterol HFA 160 2 inh INHALATION BID #3 unit 12/03/19 12/04/19 mcg-4.5 mcg/actuation aerosol inhaler pantoprazole 40 mg tablet,delayed 40 mg PO DAILY #90 tab 12/03/19 12/04/19 release sennosides 8.6 mg-docusate sodium 1 tab PO BID #180 tab 12/03/19 12/04/19 50 mg tablet Previous Rx's Medication Instructions Recorded [employer] Advantage kit 10/15/17 albuterol sulfate 2.5 mg INHALATION Q4H PRN PRN 30 10/15/17 Days ml tiotropium bromide 18 mcg capsule 1 cap INHALATION DAILY #90 inh 09/26/18 with inhalation device mirtazapine 15 mg tablet 15 mg PO HS #30 tab 12/12/18 albuterol sulfate 90 mcg/actuation 2 puff INHALATION Q4H PRN PRN #1 01/03/19 aerosol inhaler inh polyethylene glycol 3350 17 17 gm PO DAILY PRN #850 gm 01/11/19 gram/dose oral powder bisacodyl 10 mg rectal suppository 10 mg UT DAILY PRN #8 each 01/30/19 calcium carbonate 500 mg calcium 500 mg PO BID #180 tab 02/19/19 (1,250 mg) tablet cholecalciferol (vitamin D3) 25 1,000 unit PO DAILY #90 cap 02/19/19 mcg (1,000 unit) capsule lubiprostone 24 mcg capsule 24 mcg PO DAILY #90 cap 04/24/19 docusate sodium [Colace] 100 mg PO BID #90 cap 04/28/19 apixaban 5 mg tablet 5 mg PO BID #180 tab 06/26/19 varicella-zoster gE-AS01B (PF) 50 0.5 ml IM ONCE #1 each 08/13/19 mcg/0.5 mL IM susp, kit fluoxetine 20 mg tablet 20 mg PO DAILY #90 tab-cap 09/16/19 hydroxyzine HCl 25 mg tablet 25 mg PO BID PRN #180 tab 10/15/19 sucralfate [Carafate] 5 ml PO TID #420 ml 10/18/19 budesonide-formoterol HFA 160 2 inh INHALATION BID #3 unit 12/03/19 mcg-4.5 mcg/actuation aerosol inhaler pantoprazole 40 mg tablet,delayed 40 mg PO DAILY #90 tab 12/03/19 release sennosides 8.6 mg-docusate sodium 1 tab PO BID #180 tab 12/03/19 50 mg tablet Allergies Allergy/AdvReac Type Severity Reaction Status Date / Time No Known Allergies Allergy Verified 12/04/19 07:16 General Stated Complaint: SOB FLASH: 3 Review of Systems Narrative: No cough. Chews tobacco. Denies to me anxiety. 6 systems reviewed and otherwise negative [facility] Medical History Adjustment disorder with anxiety (Chronic) Alcohol abuse (Chronic) Anxiety (Chronic) COPD (chronic obstructive pulmonary disease) (Chronic) Dyspepsia (Chronic) Malignant neoplasm of right lung (Chronic) Tubular adenoma of colon (Inactive) Surgical History colonoscopy (Inactive 01/19/15) Also had a decompress colonoscopy with Dr Haresh Vásquez at [facility] on 06/09/18 for significant colon distention seen on CT scan, no prep done,therapeutic, diagnositc, still due for repeat on 01/19/25 History of lung biopsy (Resolved) History of surgery on upper extremity (Resolved) left Status post cataract extraction and insertion of intraocular lens of left eye (Chronic 11/05/18) Family History Father Essential hypertension Hyperlipidemia Paternal Uncle Heart disease Stroke Cerebral hemorrhage Hypertension Brother Cancer head and neck cancer - smoker Social History Smoking/Tobacco Use Status: Former Tobacco Use Quit Date: 06/05/98 Tobacco: How many years used: 30 Smokeless tobacco user: chewing tobacco Quit status: not considering quitting Alcohol Intake: former Drug use: Never Substance use type: does not use Details: Adopted: No Foster care: No Household members: other 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 Housing: apartment Number of Children: 0 Communication Needs: None Do you need help understanding health information?: Often current occupation: not working Current gender identity: male How often do you talk on the phone with friends or family?: three or more times per week Panel score (0-1 are the most socially isolated patients): 1 What type of physical activity do you participate in: none and other Details: started lifting weights Frequency: daily Seatbelt use: always Drive intox or ride w/intox 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 Exam Narrative Exam Narrative: GEN: awake, alert, oriented 3. Pleasant, well groomed, interactive. HEAD: Normocephalic, atraumatic ENT: Mucous membranes moist, oropharynx unremarkable, External ear exam unremarkable EYES: PERRL, EOMI NECK: Full ROM, no URSZULA, no menigismus CHEST/RESP: Nontender, clear to auscultation bilateral, no wheeze/rhonchi/rales CARDIOVASCULAR: RRR, no murmur, rub jeannie. 2+ Rad pulse bilateral ABDOMEN: Soft, nontender, no mass. +Bowel sounds EXT: Full ROM, no edema, no rash Neuro: Grossly normal neurologic exam, conversant, interactive. Psych: Speech fluent, thoughts congruent, affect anxious Course Vital Signs Vital signs: Vital Signs Temperature 36.7 C 12/04/19 07:12 Pulse 72 12/04/19 07:12 Respiratory Rate 18 12/04/19 07:12 Blood Pressure 128/90 12/04/19 07:12 Pulse Oximetry 96 12/04/19 07:12 Temperature 36.7 C 12/04/19 07:12 Temperature Source Skin 12/04/19 07:12 Pulse 72 12/04/19 07:12 Respiratory Rate 14 12/04/19 07:20 Respiratory Effort Non-Labored 12/04/19 07:20 Respiratory Depth Normal 12/04/19 07:20 Respiratory Pattern Normal 12/04/19 07:20 Blood Pressure 128/90 12/04/19 07:12 Blood Pressure Position Supine 12/04/19 07:12 Pulse Oximetry 96 12/04/19 07:12 Oxygen Delivery Method Room Air 12/04/19 07:12 Oxygen Flow Rate 0 12/04/19 07:12 Pain Level 9 12/04/19 07:20
[2019-12-04] MEDS: clonazePAM 0.5 MG TAB PO (07:53)
--- NOTE | 2019-12-04 08:22 | ED.GENADUL_ITS ---
Discharge Plan Disposition Patient Disposition: HOME Condition: Improving Discharge Details Chief Complaint: SOB Clinical Impression: Globus hystericus, Dyspepsia Primary Care Provider: Deborah Chow ED Provider: Janna Collins Home Meds and New Rx's Prescriptions: Continued Spiriva with HandiHaler 18 mcg capsule, w/inhalation device 1 cap Inhalation DAILY Qty: 90 RF: 0 mirtazapine 15 mg tablet 15 mg PO HS Qty: 30 RF: 1 Hold Instructions: Home Medication placed on hold at Doctor's office albuterol sulfate [ProAir HFA] 90 mcg/actuation HFA aerosol inhaler 2 puff Inhalation Q4H PRN PRN (Reason: Shortness Of Breath) Qty: 1 RF: 5 polyethylene glycol 3350 [Miralax] 17 gram/dose powder 17 gm PO DAILY PRN (Reason: constipation) Qty: 850 RF: 12 bisacodyl 10 mg suppository 10 mg SC DAILY PRN (Reason: constipation) Qty: 8 RF: 0 lubiprostone 24 mcg capsule 24 mcg PO DAILY Qty: 90 RF: 0 clonazepam [Klonopin] 0.5 mg tablet 0.5 mg PO BID PRNRF: 0 Hold Instructions: Home Medication placed on hold at Doctor's office cholecalciferol (vitamin D3) 1,000 unit capsule 1,000 unit PO DAILY Qty: 90 RF: 3 calcium carbonate 500 mg calcium (1,250 mg) tablet 500 mg PO BID Qty: 180 RF: 3 Shingrix (PF) 50 mcg/0.5 mL suspension for reconstitution 0.5 ml IM ONCE Qty: 1 RF: 1 apixaban 5 mg tablet 5 mg PO BID Qty: 180 RF: 3 fluoxetine 20 mg tablet 20 mg PO DAILY Qty: 90 RF: 3 hydroxyzine HCl 25 mg tablet 25 mg PO BID PRN (Reason: anxiety) Qty: 180 RF: 2 budesonide-formoterol [Symbicort] 160-4.5 mcg/actuation HFA aerosol inhaler 2 inh Inhalation BID Qty: 3 RF: 3 pantoprazole 40 mg tablet,delayed release (DR/EC) 40 mg PO DAILY Qty: 90 RF: 3 sennosides-docusate sodium [Senna-Time S] 8.6-50 mg tablet 1 tab PO BID Qty: 180 RF: 3 (DME) [employer] Advantage 1 EACH spacer 1 ea Miscellaneous DIRECTED RF: 0 albuterol sulfate 2.5 MG/3 ML solution for nebulization 2.5 mg Inhalation Q4H PRN PRN (Reason: Shortness Of Breath) 30 Days RF: 0 docusate sodium [Colace] 100 mg capsule 100 mg PO BID Qty: 90 RF: 0 sucralfate [Carafate] 100 mg/mL suspension 5 ml PO TID Qty: 420 RF: 1 Discharge Instructions Instructions: Indigestion (ED), Anxiety (ED) Additional Instructions: Follow up with primary care provider in 3-5 days. Return to ED sooner if any worsening chest pain or shortness of breath. Increase oral fluids. Take regular medications as previously prescribed. Care management is to call and follow-up with you couple times a day. At this time I feel it is important for you to possibly go stay at the care bed for a while until you are feeling better. Referrals: Deborah Chow MD [Primary Care Provider] - Discharge Data Discharge Date/Time-TO BE ENTERED AT DEPARTURE: 12/04/19 10:10 Medical Decision Making 0823: Care assumed from outgoing provider Dr. Ean Lyons, case management Nuha is at patient's bedside at this time for evaluation and consultation. 0855: quality assurance project manager states that she will call care bed for possible admission of patient. At this time pending callback. Patient has been there approximately 1 year ago. Upon patient reevaluation after medication he reports no change. He did have a negative unchanged chest x-ray on December 03, 2019 has had multiple chest x-rays this month. Did have a negative strep screen on November 15, 2019. Patient is otherwise hemodynamically stable at this time. 09 43: Care management and behavioral health liaison Alisha on the iPad at bedside for evaluation for possible care bed admission. 0958: Spoke with Alisha with [facility] resources, will order COVID swab for possible admission to care bed, at this time is pending. 1115: Initial basic labs are at patient patient's baseline. Will fax labs and recent visit notes to [facility] services attention Alisha. Patient is still complaining of throat problems and trouble breathing he remains hemodynamically stable O2 sat remains high to mid 90s. At this time I will order him a GI cocktail, and dexamethasone p.o. 1150: Patient feels somewhat better after GI cocktail and dexamethasone p.o., labs are at baseline. Spoke with Alisha in line with case management and plan is to have patient be discharged home patient states that his parents could come and get him and they will reach out couple times a day for possible placement to the care bed. The care bed does have a bed available at this time but he does have to be a voluntary admission. At this time patient is to be discharged home, parents will pick him up. Care management will touch base with patient couple times a day to see if he is still wanting to go to care bed. Patient remained hemodynamically stable, and is to follow-up with PCP and care management. HPI General Mode of arrival: ambulatory . Date/Time Provider Initiated Documentation: 12/04/19 07:35 . Limitations to Documentation: no limitations . Information obtained by: patient . History of Present Illness Quality is described as dull and constant, and is localized to the neck and chest. No relieving factors improve symptom(s), No exacerbating factors reported . Patient did receive the following treatments prior to arrival, none Related Data Home Medications Medication Instructions Recorded Confirmed [employer] Advantage kit 10/15/17 11/26/19 albuterol sulfate 2.5 mg INHALATION Q4H PRN PRN 30 10/15/17 12/04/19 Days ml tiotropium bromide 18 mcg capsule 1 cap INHALATION DAILY #90 inh 09/26/18 12/04/19 with inhalation device mirtazapine 15 mg tablet 15 mg PO HS #30 tab 12/12/18 12/04/19 clonazepam 0.5 mg tablet 0.5 mg PO BID PRN 12/19/18 12/04/19 albuterol sulfate 90 mcg/actuation 2 puff INHALATION Q4H PRN PRN #1 01/03/19 12/04/19 aerosol inhaler inh polyethylene glycol 3350 17 17 gm PO DAILY PRN #850 gm 01/11/19 12/04/19 gram/dose oral powder bisacodyl 10 mg rectal suppository 10 mg SC DAILY PRN #8 each 01/30/19 12/04/19 calcium carbonate 500 mg calcium 500 mg PO BID #180 tab 02/19/19 12/04/19 (1,250 mg) tablet cholecalciferol (vitamin D3) 25 1,000 unit PO DAILY #90 cap 02/19/19 12/04/19 mcg (1,000 unit) capsule lubiprostone 24 mcg capsule 24 mcg PO DAILY #90 cap 04/24/19 12/04/19 docusate sodium [Colace] 100 mg PO BID #90 cap 04/28/19 12/04/19 apixaban 5 mg tablet 5 mg PO BID #180 tab 06/26/19 12/04/19 varicella-zoster gE-AS01B (PF) 50 0.5 ml IM ONCE #1 each 08/13/19 12/04/19 mcg/0.5 mL IM susp, kit fluoxetine 20 mg tablet 20 mg PO DAILY #90 tab-cap 09/16/19 12/04/19 hydroxyzine HCl 25 mg tablet 25 mg PO BID PRN #180 tab 10/15/19 12/04/19 sucralfate [Carafate] 5 ml PO TID #420 ml 10/18/19 12/04/19 budesonide-formoterol HFA 160 2 inh INHALATION BID #3 unit 12/03/19 12/04/19 mcg-4.5 mcg/actuation aerosol inhaler pantoprazole 40 mg tablet,delayed 40 mg PO DAILY #90 tab 12/03/19 12/04/19 release sennosides 8.6 mg-docusate sodium 1 tab PO BID #180 tab 12/03/19 12/04/19 50 mg tablet Previous Rx's Medication Instructions [facility]ed [facility] 10/15/17 albuterol sulfate 2.5 mg INHALATION Q4H PRN PRN 30 10/15/17 Days ml tiotropium bromide 18 mcg capsule 1 cap INHALATION DAILY #90 inh 09/26/18 with inhalation device mirtazapine 15 mg tablet 15 mg PO HS #30 tab 12/12/18 albuterol sulfate 90 mcg/actuation 2 puff INHALATION Q4H PRN PRN #1 01/03/19 aerosol inhaler inh polyethylene glycol 3350 17 17 gm PO DAILY PRN #850 gm 01/11/19 gram/dose oral powder bisacodyl 10 mg rectal suppository 10 mg SC DAILY PRN #8 each 01/30/19 calcium carbonate 500 mg calcium 500 mg PO BID #180 tab 02/19/19 (1,250 mg) tablet cholecalciferol (vitamin D3) 25 1,000 unit PO DAILY #90 cap 02/19/19 mcg (1,000 unit) capsule lubiprostone 24 mcg capsule 24 mcg PO DAILY #90 cap 04/24/19 docusate sodium [Colace] 100 mg PO BID #90 cap 04/28/19 apixaban 5 mg tablet 5 mg PO BID #180 tab 06/26/19 varicella-zoster gE-AS01B (PF) 50 0.5 ml IM ONCE #1 each 08/13/19 mcg/0.5 mL IM susp, kit fluoxetine 20 mg tablet 20 mg PO DAILY #90 tab-cap 09/16/19 hydroxyzine HCl 25 mg tablet 25 mg PO BID PRN #180 tab 10/15/19 sucralfate [Carafate] 5 ml PO TID #420 ml 10/18/19 budesonide-formoterol HFA 160 2 inh INHALATION BID #3 unit 12/03/19 mcg-4.5 mcg/actuation aerosol inhaler pantoprazole 40 mg tablet,delayed 40 mg PO DAILY #90 tab 12/03/19 release sennosides 8.6 mg-docusate sodium 1 tab PO BID #180 tab 12/03/19 50 mg tablet Allergies Allergy/AdvReac Type Severity Reaction Status Date / Time No Known Allergies Allergy Verified 12/04/19 07:16 General Stated Complaint: SOB FLASH: 3 [facility] Medical History Adjustment disorder with anxiety (Chronic) Alcohol abuse (Chronic) Anxiety (Chronic) COPD (chronic obstructive pulmonary disease) (Chronic) Dyspepsia (Chronic) Malignant neoplasm of right lung (Chronic) Tubular adenoma of colon (Inactive) Surgical History colonoscopy (Inactive 01/19/15) Also had a decompress colonoscopy with Dr Haresh Vásquez at [facility] on 06/09/18 for significant colon distention seen on CT scan, no prep done,therapeutic, diagnositc, still due for repeat on 01/19/25 History of lung biopsy (Resolved) History of surgery on upper extremity (Resolved) left Status post cataract extraction and insertion of intraocular lens of left eye (Chronic 11/05/18) Family History Father Essential hypertension Hyperlipidemia Paternal Uncle Heart disease Stroke Cerebral hemorrhage Hypertension Brother Cancer head and neck cancer - smoker Social History Smoking/Tobacco Use Status: Former Tobacco Use Quit Date: 06/05/98 Tobacco: How many years used: 30 Smokeless tobacco user: chewing tobacco Quit status: not considering quitting Alcohol Intake: former Drug use: Never Substance use type: does not use Details: Adopted: No Foster care: No Household members: other Details: Manager City Care Provider 26/12 Housing: apartment Number of Children: 0 Communication Needs: None Do you need help understanding health information?: Often current occupation: not working Current gender identity: male How often do you talk on the phone with friends or family?: three or more times per week Panel score (0-1 are the most socially isolated patients): 1 What type of physical activity do you participate in: none and other Details: started lifting weights Frequency: daily Seatbelt use: always Drive intox or ride w/intox milk pickup 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 Course Vital Signs Vital signs: Vital Signs Temperature 36.7 C 12/04/19 07:12 Pulse 72 12/04/19 07:12 Respiratory Rate 18 12/04/19 07:12 Blood Pressure 128/90 12/04/19 07:12 Pulse Oximetry 96 12/04/19 07:12 Temperature 36.7 C 12/04/19 07:12 Temperature Source Skin 12/04/19 07:12 Pulse 68 12/04/19 08:01 Pulse 73 12/04/19 08:01 Respiratory Rate 13 12/04/19 08:08 Respiratory Effort 12/04/19 08:13 Respiratory Depth Normal 12/04/19 08:13 Respiratory Pattern Normal 12/04/19 07:20 Blood Pressure 115/79 12/04/19 08:08 Blood Pressure Mean 86 12/04/19 08:01 Blood Pressure Position Supine 12/04/19 07:12 Pulse Oximetry 97 12/04/19 08:08 Oxygen Delivery Method Room Air 12/04/19 08:08 Oxygen Flow Rate 0 12/04/19 08:08 Pain Level 9 12/04/19 08:08 Comment 12/04/19 08:08
--- NOTE | 2019-12-04 09:32 | PDOC.ERCMPRO ---
- If Service Date Differs Date of service: 12/04/19 Time of Service: 09:32 Care Management Progress Note S/O: WILL meets with Iggy at the request of ED provider. Iggy reports he lives with his elderly parents in [facility] and fears he will in front of them. He states he has difficulty breathing and feels as though he has something stuck in his throat every day. When asked if he has discussed his medical concerns with his primary care doctor, he replies he has called his doctor's office when feeling short of breath and was told to take his medication and to get some rest, which he did not feel was helpful. Iggy expresses a fear of dying and shares his concern he may have lung and throat cancer. He is scheduled to meet with a [facility] oncologist next . Iggy's medical history is positive for a cancerous mass of the right lung in 2018, coinciding with an increase in ED visits. Iggy also has a history of depression and anxiety. He sees Brando Dobson for counseling and Saira Murphy aprn, of [facility], prescribes his psychiatric medications. Iggy denies a history of psychiatric hospitalizations, but he did spend several months at the Care Bed a year or two ago. Today, he expresses a desire to return to the Care Bed where he states he felt safe. A: Iggy is a 64 year old male who presents in the ED for shortness of breath and difficulty swallowing. This is his 5th visit in the last 30 days for similar complaints. P: WILL coordinates a zoom assessment by Alisha [facility] crisis screener. Alisha finds that Iggy would benefit from a short-term stay at the Care Bed for mood stabilization and is making a referral. Before the Care Bed supervisor fusing room is able to review the referral and make a decision, Iggy changes his mind and asks to return home. A plan is made for [facility] to check-in with Iggy twice a day for the next few days to ensure he is maintaining in the community.
[2019-12-04] MEDS: Normal Saline Flush 10 ML SYR IVP (10:40)
[2019-12-04 10:41] LABS: Abs Immature Grans 0.01 k/cumm (0.0-0.09); Absolute Basophil Count 0.02 k/cumm (0.0-0.2); Absolute Eosinophil Count 0.03 k/cumm (0.0-0.7); Absolute Lymphocyte Count 1.03 k/cumm (1.2-3.4); Absolute Monocyte Count 0.36 k/cumm (0.11-0.7); Absolute Neutrophil Count 2.83 k/cumm (1.2-6.7); Basophils % 0.5; Eosinophils % 0.7; HCT 42.3 % (40.0-50.0); HGB 14.1 g/dL (13.5-17.5); Immature Grans % 0.2 %; Lymphocytes % 24.1; Mean Corp. HGB Concentration 33.3 g/dL (32.0-36.0); Mean Corpuscular Hemoglobin 29.1 pg (27.0-33.0); Mean Corpuscular Volume 87.2 fL (80-95); Mean Platelet Volume 9.4 fL (8.0-11.0); Monocytes % 8.4; Neutrophils % 66.1; Platelet Count 239 x1000/uL (130-400); RBC 4.85 m/cumm (4.50-6.00); RBC Distribution Width 12.6 % (11.8-14.1); White Blood Cell Count 4.28 k/cumm (4.4-10.8)
[2019-12-04 11:05] LABS: ALT 26 U/L (16-63); AST 21 U/L (15-37); Albumin 3.3 g/dL (3.4-5.0); Alkaline Phosphatase 88 U/L (46-116); Anion Gap 6.1 mmol/L (3-11); BUN 13 mg/dL (7-18); Bilirubin, Total 0.6 mg/dL (0.2-1.0); CO2 30.9 mmol/L (21.0-32.0); CREATININE 1.25 mg/dL (0.70-1.30); Calcium 8.4 mg/dL (8.5-10.1); Chloride 103 mmol/L (98-107); Estimated GFR 57.97 (mL/min/1.73m2); Glucose 93 mg/dL (74-106); Potassium 4.3 mmol/L (3.5-5.1); Sodium 140 mmol/L (136-145); Total Protein 7.1 g/dL (6.4-8.2)
[2019-12-04] MEDS: Dexamethasone 10 MG/ML VIAL PO (11:20)
--- NOTE | 2019-12-04 12:55 | PDOC.MHCN_ITS ---
Date of service: 12/04/19 Time of Service: 12:55 Mental Health Crisis Note Presenting Issue How did you arrive at the ED and why did you come: Iggy arrived via [facility] today for the 2nd time in 24 hours and the 5th time total in 30 days. He presents with chest pain/anxiety. Precipitating Factors Iggy denied SI and HI. He does not show signs of a thought disorder. Disposition BEHAVIOR: Iggy is cooperative and engaged. He speaks softly so it is at times a challenge to hear him as rooms are two to a room now in the ER. EYE CONTACT: Eye contact is consistent and normal. MOOD: Mood is slightly anxious and reports from Iggy and [facility] is that he does have high levels of anxiety. AFFECT: Iggy's affect is normal. APPETITE: Iggy reports good appettie. SLEEP(trouble falling/staying asleep: Iggy reports good sleep. Plan Iggy initially wanted to go to [facility] but changed his mind about going about an hour later and instead wants to return home. He did agree to a couple of outreach calls to just make sure he is doing better later today. Signature Clinician's Name/Title: Alisha Pablo MS, [facility] Emergency Services Clinician
[2019-12-04 22:39] LABS: COVID-19 RT-PCR UVMMC Result Negative (Negative)
== END 2019-12-04 10:11 | disposition home or self-care (01) ==
PROVIDERS: Emergency Provider Registered Nurse Emergency; PCP Internal Medicine
DX: F45.8 Other somatoform disorders (principal); J44.9 Chronic obstructive pulmonary disease, unspecified; Z87.891 Personal history of nicotine dependence
CPT/HCPCS: 36415; 80053; 93005; 99284; U0003; 85025; 93010; J1100; J3490

== ENCOUNTER 2019-12-06 07:32 | Emergency (ER) | payer MEDICARE, MEDICAID, SELFPAY ==
[2019-12-06] VITALS (43 sets, daily range): BP systolic 108–137; BP diastolic 73–94; PULSE 52–77; RESP 13–30; TEMP 36.4; O2SAT 94–100
--- NOTE | 2019-12-06 08:24 | ED.GENADUL_ITS ---
Discharge Plan Disposition Patient Disposition: HOME Condition: Stable Discharge Details Chief Complaint: Chest Pain Clinical Impression: Anxiety, Breath shortness Primary Care Provider: Deborah Chow ED Provider: Janna Collins Home Meds and New Rx's Prescriptions: Continued Spiriva with HandiHaler 18 mcg capsule, w/inhalation device 1 cap Inhalation DAILY Qty: 90 RF: 0 mirtazapine 15 mg tablet 15 mg PO HS Qty: 30 RF: 1 Hold Instructions: Home Medication placed on hold at Doctor's office albuterol sulfate [ProAir HFA] 90 mcg/actuation HFA aerosol inhaler 2 puff Inhalation Q4H PRN PRN (Reason: Shortness Of Breath) Qty: 1 RF: 5 polyethylene glycol 3350 [Miralax] 17 gram/dose powder 17 gm PO DAILY PRN (Reason: constipation) Qty: 850 RF: 12 bisacodyl 10 mg suppository 10 mg MI DAILY PRN (Reason: constipation) Qty: 8 RF: 0 lubiprostone 24 mcg capsule 24 mcg PO DAILY Qty: 90 RF: 0 clonazepam [Klonopin] 0.5 mg tablet 0.5 mg PO BID PRNRF: 0 Hold Instructions: Home Medication placed on hold at Doctor's office cholecalciferol (vitamin D3) 1,000 unit capsule 1,000 unit PO DAILY Qty: 90 RF: 3 calcium carbonate 500 mg calcium (1,250 mg) tablet 500 mg PO BID Qty: 180 RF: 3 Shingrix (PF) 50 mcg/0.5 mL suspension for reconstitution 0.5 ml IM ONCE Qty: 1 RF: 1 apixaban 5 mg tablet 5 mg PO BID Qty: 180 RF: 3 fluoxetine 20 mg tablet 20 mg PO DAILY Qty: 90 RF: 3 hydroxyzine HCl 25 mg tablet 25 mg PO BID PRN (Reason: anxiety) Qty: 180 RF: 2 budesonide-formoterol [Symbicort] 160-4.5 mcg/actuation HFA aerosol inhaler 2 inh Inhalation BID Qty: 3 RF: 3 pantoprazole 40 mg tablet,delayed release (DR/EC) 40 mg PO DAILY Qty: 90 RF: 3 sennosides-docusate sodium [Senna-Time S] 8.6-50 mg tablet 1 tab PO BID Qty: 180 RF: 3 (DME) OptiChamber Advantage 1 EACH spacer 1 ea Miscellaneous DIRECTED RF: 0 albuterol sulfate 2.5 MG/3 ML solution for nebulization 2.5 mg Inhalation Q4H PRN PRN (Reason: Shortness Of Breath) 30 Days RF: 0 docusate sodium [Colace] 100 mg capsule 100 mg PO BID Qty: 90 RF: 0 sucralfate [Carafate] 100 mg/mL suspension 5 ml PO TID Qty: 420 RF: 1 Discharge Instructions Instructions: Dyspnea (ED), Anxiety (ED) Additional Instructions: Please call your primary care provider before coming into the emergency room. Try some relaxation techniques upon awakening in the morning including breathing anterior nose not her mouth before coming to the emergency department. Consider care bed as this may be beneficial for you. Please keep your upcoming appointment with oncology as previously scheduled. Follow up with primary care provider in 3-5 days. Return to ED sooner if temperature greater than 100.8, chest pain which does not go away in 15 minutes, increased swelling in lower extremities. Increase oral fluids. Speak with your primary care about possibly having a sleep study done, also speak with the oncologist about this. Referrals: Deborah Chow MD [Primary Care Provider] - Discharge Data Discharge Date/Time-TO BE ENTERED AT DEPARTURE: 12/06/19 11:42 Medical Decision Making <Janna Collins - Last Filed: 12/06/19 15:43> 64-year-old male who is well-known to the department who reports chest tightness and shortness of breath x1 month. He has been seen in the ER 5 separate times in the last month. He reports worse in the a.m. upon awakening. He does have a history of a stable right upper lobe lung mass which she has an oncology appointment for next week. He does have a history of dyspepsia, no other as sociated symptoms. He is alert and oriented at baseline, he notably seems tense and with coaching he is able to take a deep breath in through his nose and on his mouth and his lungs are clear. He does have a history of anxiety. Upon last visit there was some plans in place to transfer him to a care bed which patient declined. He is a history of a recovering alcoholic. He denies any recent alcohol or drugs. 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 0830: Care management contacted by Dr. Lyons they will come and speak with patient after the morning meeting and after medically cleared. Baseline labs ordered including a troponin. Patient states he is not taking his clonazepam this morning because he is out and they are refilling it right now. 0904: Susan with Case management here for patient niki. 1019: Mental health evaluation being set up by case management, managing with [facility] to call to set up a meeting for patient evaluation. There is a care bed available at this time however this is a voluntary basis and patient needs to choose to go there. Patient is resting quietly in bed. 1120: Update, patient is now saying that he does not want to go to the care bed. Did tell the home care companion Susan earlier that he did want to go to the care bed. Understanding is that he will be discharged with follow-up on a daily basis with case management. Work-up is at baseline BUN/creatinine were slightly elevated patient did receive 1 L normal saline in department. Troponin is less than 0.05. <Ean Lyons MD - Last Filed: 12/06/19 08:39> Patient seen, examined [id number], discussed with Collins. I agree with precautionary screening laboratories. Mr. Urias clearly has a pattern of escalating morning anxiety, likely prompted by his pending visit with oncology regarding his right chest mass that is been stable over months time. He may benefit from further patient behavioral management including through community connections as has been successful in the past. We will ask care management to see him in consultation. HPI <Janna Dennis - Last Filed: 12/06/19 15:43> General Mode of arrival: EMS . Date/Time Provider Initiated Documentation: 12/06/19 08:02 . Limitations to Documentation: no limitations . Information obtained by: patient . HPI Narrative: 64-year-old male who is well- known to the department who reports chest tightness and shortness of breath x1 month. He has been seen in the ER 5 separate times in the last month. He reports worse in the a.m. upon awakening. He does have a history of a stable right upper lobe lung mass which she has an oncology appointment for next week. He does have a history of dyspepsia, no other associated symptoms. He is alert and oriented at baseline, he notably seems tense and with coaching he is able to take a deep breath in through his nose and on his mouth and his lungs are clear. He does have a history of anxiety. Upon last visit there was some plans in place to transfer him to a care bed which patient declined. He is a history of a recovering alcoholic. He denies any recent alcohol or drugs. 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 Related Data Home Medications Medication Instructions Recorded Confirmed [facility] Advantage kit 10/15/17 11/26/19 albuterol sulfate 2.5 mg INHALATION Q4H PRN PRN 30 10/15/17 12/06/19 Days ml tiotropium bromide 18 mcg capsule 1 cap INHALATION DAILY #90 inh 09/26/18 12/06/19 with inhalation device mirtazapine 15 mg tablet 15 mg PO HS #30 tab 12/12/18 12/06/19 clonazepam 0.5 mg tablet 0.5 mg PO BID PRN 12/19/18 12/06/19 albuterol sulfate 90 mcg/actuation 2 puff INHALATION Q4H PRN PRN #1 01/03/19 12/06/19 aerosol inhaler inh polyethylene glycol 3350 17 17 gm PO DAILY PRN #850 gm 01/11/19 12/06/19 gram/dose oral powder bisacodyl 10 mg rectal suppository 10 mg MI DAILY PRN #8 each 01/30/19 12/06/19 calcium carbonate 500 mg calcium 500 mg PO BID #180 tab 02/19/19 12/06/19 (1,250 mg) tablet cholecalciferol (vitamin D3) 25 1,000 unit PO DAILY #90 cap 02/19/19 12/06/19 mcg (1,000 unit) capsule lubiprostone 24 mcg capsule 24 mcg PO DAILY #90 cap 04/24/19 12/06/19 docusate sodium [Colace] 100 mg PO BID #90 cap 04/28/19 12/06/19 apixaban 5 mg tablet 5 mg PO BID #180 tab 06/26/19 12/06/19 varicella-zoster gE-AS01B (PF) 50 0.5 ml IM ONCE #1 each 08/13/19 12/06/19 mcg/0.5 mL IM susp, kit fluoxetine 20 mg tablet 20 mg PO DAILY #90 tab-cap 09/16/19 12/06/19 hydroxyzine HCl 25 mg tablet 25 mg PO BID PRN #180 tab 10/15/19 12/06/19 sucralfate [Carafate] 5 ml PO TID #420 ml 10/18/19 12/06/19 budesonide-formoterol HFA 160 2 inh INHALATION BID #3 unit 12/03/19 12/06/19 mcg-4.5 mcg/actuation aerosol inhaler pantoprazole 40 mg tablet,delayed 40 mg PO DAILY #90 tab 12/03/19 12/06/19 release sennosides 8.6 mg-docusate sodium 1 tab PO BID #180 tab 12/03/19 12/06/19 50 mg tablet Previous Rx's Medication Instructions Recorded [facility] Ad[facility] kit 10/15/17 albuterol sulfate 2.5 mg INHALATION Q4H PRN PRN 30 10/15/17 Days ml tiotropium bromide 18 mcg capsule 1 cap INHALATION DAILY #90 inh 09/26/18 with inhalation device mirtazapine 15 mg tablet 15 mg PO HS #30 tab 12/12/18 albuterol sulfate 90 mcg/actuation 2 puff INHALATION Q4H PRN PRN #1 01/03/19 aerosol inhaler inh polyethylene glycol 3350 17 17 gm PO DAILY PRN #850 gm 01/11/19 gram/dose oral powder bisacodyl 10 mg rectal suppository 10 mg MI DAILY PRN #8 each 01/30/19 calcium carbonate 500 mg calcium 500 mg PO BID #180 tab 02/19/19 (1,250 mg) tablet cholecalciferol (vitamin D3) 25 1,000 unit PO DAILY #90 cap 02/19/19 mcg (1,000 unit) capsule lubiprostone 24 mcg capsule 24 mcg PO DAILY #90 cap 04/24/19 docusate sodium [Colace] 100 mg PO BID #90 cap 04/28/19 apixaban 5 mg tablet 5 mg PO BID #180 tab 06/26/19 varicella-zoster gE-AS01B (PF) 50 0.5 ml IM ONCE #1 each 08/13/19 mcg/0.5 mL IM susp, kit fluoxetine 20 mg tablet 20 mg PO DAILY #90 tab-cap 09/16/19 hydroxyzine HCl 25 mg tablet 25 mg PO BID PRN #180 tab 10/15/19 sucralfate [Carafate] 5 ml PO TID #420 ml 10/18/19 budesonide-formoterol HFA 160 2 inh INHALATION BID #3 unit 12/03/19 mcg-4.5 mcg/actuation aerosol inhaler pantoprazole 40 mg tablet,delayed 40 mg PO DAILY #90 tab 12/03/19 release sennosides 8.6 mg-docusate sodium 1 tab PO BID #180 tab 12/03/19 50 mg tablet Allergies Allergy/AdvReac Type Severity Reaction Status Date / Time No Known Allergies Allergy Verified 12/06/19 08:07 General Stated Complaint: Chest Pain FLASH: 3 Review of Systems <Janna Collins - Last Filed: 12/06/19 15:43> Narrative: Constitutional: Negative for weight loss, alert and oriented, normal body habitus, appears intermittently anxious. HEENT: Denies trauma, headaches, blurry vision, nasal discharge, sore throat, trouble swallowing. Chest: Denies palpitations, irregular rhythm, hypertension. Respiratory: Denies cough, hemoptysis. GI: Denies abdominal pain, nausea, vomiting, diarrhea, constipation. : Denies dysuria, hematuria, flank pain, rectal bleeding. Neuro: Denies dizziness, blurry vision, weakness, syncope, headache or facial numbness. Hematologic: Denies easy bruising, intolerance to heat or cold, hair loss. [facility] <Janna Collins - Last Filed: 12/06/19 15:43> Medical History Adjustment disorder with anxiety (Chronic) Alcohol abuse (Chronic) Anxiety (Chronic) COPD (chronic obstructive pulmonary disease) (Chronic) Dyspepsia (Chronic) Malignant neoplasm of right lung (Chronic) Tubular adenoma of colon (Inactive) Surgical History colonoscopy (Inactive 01/19/15) Also had a decompress colonoscopy with Dr Haresh Vásquez at [facility] on 06/09/18 for significant colon distention seen on CT scan, no prep done,therapeutic, diagnositc, still due for repeat on 01/19/25 History of lung biopsy (Resolved) History of surgery on upper extremity (Resolved) left Status post cataract extraction and insertion of intraocular lens of left eye (Chronic 11/05/18) Family History Father Essential hypertension Hyperlipidemia Paternal Uncle Heart disease Stroke Cerebral hemorrhage Hypertension Brother Cancer head and neck cancer - smoker Social History Smoking/Tobacco Use Status: Former Tobacco Use Quit Date: 06/05/98 Tobacco: How many years used: 30 Smokeless tobacco user: chewing tobacco Quit status: not considering quitting Alcohol Intake: former Drug use: Never Substance use type: does not use Details: Adopted: No Foster care: No Household members: other 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/12 Housing: apartment Number of Children: 0 Communication Needs: None Do you need help understanding health information?: Often current occupation: not working Current gender identity: male How often do you talk on the phone with friends or family?: three or more times per week Panel score (0-1 are the most socially isolated patients): 1 What type of physical activity do you participate in: none and other Details: started lifting weights Frequency: daily Seatbelt use: always 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 Exam <Janna Collins - Last Filed: 12/06/19 15:43> Narrative Exam Narrative: Constitutional: Alert and oriented x3. Appears stated age. Normal body habitus. Patient is sucking on a fire ball upon initial exam. Appears anxious. Head: Normocephalic, no trauma. Eyes: Pupils PERRLA, Red reflex noted, EOM's intact. Eyelids symmetrical without lesions, discharge, or swelling. ENT: Bilateral TM's WNL, External ear normal to inspection, no mastoid TTP, swelling, or erythema, Nasal turbinates WNL, no nasal discharge. Posterior pharynx beefy red which is his baseline no exudate. Chest: RRR, Normal S1, S2, distal pulses intact. Resp: Lungs clear to auscultation bilaterally, no wheezes, rales, or rhonchi. Musculoskeletal: Normal gait, 5/5 strength to all four extremities. Skin: No suspicious rashes or lesions. Capillary refill less than 2 sec. Neurologic: Cranial nerves II-XII intact. Alert and oriented x 3. DTR's intact. Hematologic/Lymphatic: No ecchymosis, no lymphadenopathy. Course <Janna Collins - Last Filed: 12/06/19 15:43> Vital Signs Vital signs: Vital Signs Temperature 36.4 C L 12/06/19 07:39 Pulse 77 12/06/19 07:39 Respiratory Rate 18 12/06/19 07:39 Blood Pressure 120/81 12/06/19 07:39 Pulse Oximetry 99 12/06/19 07:39 Temperature 36.4 C L 12/06/19 07:39 Temperature Source Temporal Artery Scan 12/06/19 07:39 Pulse 77 12/06/19 07:39 Respiratory Rate 18 12/06/19 07:45 Respiratory Effort Non-Labored 12/06/19 07:45 Respiratory Depth Normal 12/06/19 07:45 Respiratory Pattern Normal 12/06/19 07:45 Blood Pressure 120/81 12/06/19 07:39 Blood Pressure Position Sitting 12/06/19 07:39 Pulse Oximetry 99 12/06/19 07:39 Oxygen Delivery Method Nasal Cannula 12/06/19 07:39 Oxygen Flow Rate 0 12/06/19 07:39 Pain Level 10 12/06/19 07:45
[2019-12-06 08:35] LABS: Abs Immature Grans 0.02 k/cumm (0.0-0.09); Absolute Basophil Count 0.02 k/cumm (0.0-0.2); Absolute Eosinophil Count 0.06 k/cumm (0.0-0.7); Absolute Lymphocyte Count 1.12 k/cumm (1.2-3.4); Absolute Monocyte Count 0.45 k/cumm (0.11-0.7); Absolute Neutrophil Count 2.57 k/cumm (1.2-6.7); Basophils % 0.5; Eosinophils % 1.4; HCT 41.2 % (40.0-50.0); HGB 13.9 g/dL (13.5-17.5); Immature Grans % 0.5 %; Lymphocytes % 26.4; Mean Corp. HGB Concentration 33.7 g/dL (32.0-36.0); Mean Corpuscular Hemoglobin 29.5 pg (27.0-33.0); Mean Corpuscular Volume 87.5 fL (80-95); Mean Platelet Volume 9.8 fL (8.0-11.0); Monocytes % 10.6; Neutrophils % 60.6; Platelet Count 246 x1000/uL (130-400); RBC 4.71 m/cumm (4.50-6.00); White Blood Cell Count 4.24 k/cumm (4.4-10.8)
[2019-12-06 08:52] LABS: ALT 26 U/L (16-63); AST 25 U/L (15-37); Albumin 3.5 g/dL (3.4-5.0); Alkaline Phosphatase 86 U/L (46-116); BUN 21 mg/dL (7-18); Bilirubin, Total 0.9 mg/dL (0.2-1.0); CREATININE 1.35 mg/dL (0.70-1.30); Calcium 8.1 mg/dL (8.5-10.1); Chloride 104 mmol/L (98-107); Estimated GFR 53.04 (mL/min/1.73m2); Glucose 102 mg/dL (74-106); Magnesium 2.6 mg/dL (1.8-2.4); Potassium 3.4 mmol/L (3.5-5.1); Sodium 140 mmol/L (136-145); Total Protein 7.2 g/dL (6.4-8.2); Troponin I < 0.05 ng/mL (<0.06)
[2019-12-06] MEDS: clonazePAM 0.5 MG TAB PO (09:04)
[2019-12-06] MEDS: Normal Saline 1,000 ML 1000 ML IV (09:13)
--- NOTE | 2019-12-06 11:01 | PDOC.MHCN ---
Date of service: 12/06/19 Time of Service: 11:50 Mental Health Crisis Note Presenting Issue How did you arrive at the ED and why did you come: Client arrived at [facility] Ed via ambulance reporting that he was having breathing problems. Doctor requested mental health due to the client reporting to the ED every couple of days for the same concerns. Precipitating Factors Client denies SI and HI. Client states that he is anxious about an upcoming oncology appointment next week at [facility]. Disposition BEHAVIOR: Client was talkative with mental health clinician upon mental health clinician entering the room. Client was laying in bed in hospital gown attire. Client stated that he is nervous about his upcoming oncology appointment next week at [facility]. EYE CONTACT: Client made good eye contact when talking with mental health clinician. MOOD: Client appears to have anxiety around his medical conditions, but is also able to engage in conversation with mental health clinician. AFFECT: Flat affect mostly, however client is able to appropriately show engaging affects as well with mental health clinician. APPETITE: Client states that he has been eating good, but he feels like the more he eats the worse his breathing gets. SLEEP(trouble falling/staying asleep: Client states that he has been sleeping good. Plan Mental health clinician talked to client about the possibility of the care bed placement. Mental health clinician encouraged client and reminded him of his successes at the care bed during his previous stay. Client refuses care bed placement at this time, but stated that he may be interested in a couple of weeks. Client will return home on a safety plan put in place by mental health clinician. [facility] emergency worker will call client to do check-in once a day throughout the weekend. Signature Clinician's Name/Title: Vicki Chapman [facility] mental health clinician
== END 2019-12-06 11:42 | disposition home or self-care (01) ==
PROVIDERS: Emergency Provider Registered Nurse Emergency; PCP Internal Medicine
DX: R06.02 Shortness of breath (principal); F41.9 Anxiety disorder, unspecified; J44.9 Chronic obstructive pulmonary disease, unspecified; F17.210 Nicotine dependence, cigarettes, uncomplicated
CPT/HCPCS: 36415; 80053; 93005; 96360; 99284; 83735; 84484; 85025; 93010

== ENCOUNTER 2019-12-07 07:21 | Emergency (ER) | payer MEDICARE, MEDICAID, SELFPAY ==
[2019-12-07 07:22] VITALS: BP 141/90; PULSE 65; RESP 18; TEMP 36.6; O2SAT 97
[2019-12-07 07:29] VITALS: RESP 18
--- NOTE | 2019-12-07 08:16 | ED.GENADUL_ITS ---
Discharge Plan Disposition Patient Disposition: HOME Condition: Stable Discharge Details Chief Complaint: Anxiety Clinical Impression: Anxiety, Shortness of breath Primary Care Provider: Deborah Chow ED Provider: Elliot Lizarraga Home Meds and New Rx's Prescriptions: Continued Spiriva with HandiHaler 18 mcg capsule, w/inhalation device 1 cap Inhalation DAILY Qty: 90 RF: 0 mirtazapine 15 mg tablet 15 mg PO HS Qty: 30 RF: 1 Hold Instructions: Home Medication placed on hold at Doctor's office albuterol sulfate [ProAir HFA] 90 mcg/actuation HFA aerosol inhaler 2 puff Inhalation Q4H PRN PRN (Reason: Shortness Of Breath) Qty: 1 RF: 5 polyethylene glycol 3350 [Miralax] 17 gram/dose powder 17 gm PO DAILY PRN (Reason: constipation) Qty: 850 RF: 12 bisacodyl 10 mg suppository 10 mg LA DAILY PRN (Reason: constipation) Qty: 8 RF: 0 lubiprostone 24 mcg capsule 24 mcg PO DAILY Qty: 90 RF: 0 cholecalciferol (vitamin D3) 1,000 unit capsule 1,000 unit PO DAILY Qty: 90 RF: 3 calcium carbonate 500 mg calcium (1,250 mg) tablet 500 mg PO BID Qty: 180 RF: 3 Shingrix (PF) 50 mcg/0.5 mL suspension for reconstitution 0.5 ml IM ONCE Qty: 1 RF: 1 apixaban 5 mg tablet 5 mg PO BID Qty: 180 RF: 3 fluoxetine 20 mg tablet 20 mg PO DAILY Qty: 90 RF: 3 hydroxyzine HCl 25 mg tablet 25 mg PO BID PRN (Reason: anxiety) Qty: 180 RF: 2 budesonide-formoterol [Symbicort] 160-4.5 mcg/actuation HFA aerosol inhaler 2 inh Inhalation BID Qty: 3 RF: 3 pantoprazole 40 mg tablet,delayed release (DR/EC) 40 mg PO DAILY Qty: 90 RF: 3 sennosides-docusate sodium [Senna-Time S] 8.6-50 mg tablet 1 tab PO BID Qty: 180 RF: 3 (DME) [employer] Advantage 1 EACH spacer 1 ea Miscellaneous DIRECTED RF: 0 albuterol sulfate 2.5 MG/3 ML solution for nebulization 2.5 mg Inhalation Q4H PRN PRN (Reason: Shortness Of Breath) 30 Days RF: 0 docusate sodium [Colace] 100 mg capsule 100 mg PO BID Qty: 90 RF: 0 sucralfate [Carafate] 100 mg/mL suspension 5 ml PO TID Qty: 420 RF: 1 No Action clonazepam [Klonopin] 0.5 mg tablet 0.5 mg PO BID PRN (Reason: anxiety) Qty: 14 RF: 0 Hold Instructions: Home Medication placed on hold at Doctor's office Discharge Instructions Instructions: Dyspnea (ED), Anxiety (ED) Additional Instructions: Please follow-up with your specialist at [facility] as scheduled. Please contact your primary care physician to arrange follow-up. Return to the ER for any worsening or new concerning symptoms. Referrals: Deborah Chow MD [Primary Care Provider] - Discharge Data Discharge Date/Time-TO BE ENTERED AT DEPARTURE: 12/07/19 08:35 Medical Decision Making Cristhian a 64-year-old male well-known to the emergency department with anxiety disorder and lung mass, here with shortness of breath. Patient has clear lungs clear to auscultation bilaterally, he is in no respiratory distress, saturating well on room air. No concerning findings on exam. Extensive recent diagnostic workup for same. A medical screening exam was performed and patient stable for discharge with outpatient follow-up. He was encouraged to return immediately should he have any worsening or new concerning symptoms. He was encouraged to follow-up as scheduled with [facility] oncology. Medical Records Medical records reviewed: Yes I reviewed the patient's medical records. HPI General Mode of arrival: ambulatory . Date/Time Provider Initiated Documentation: 12/07/19 07:30 . Limitations to Documentation: no limitations . Information obtained by: patient . HPI Narrative: 64yo m well known to [facility] ED, here with shortness of breath and anxiety. Symptoms are severe. No modifiers. He has no other complaints. Denies associated CP. Symptoms no different than other flares of same symptoms - patient has had extensive diagnostic workup for this complaint. He does has known lung mass and has specialty appointment scheduled with oncology at [facility]. Related Data Home Medications Medication Instructions Recorded Confirmed [employer] Advantage kit 10/15/17 12/15/19 albuterol sulfate 2.5 mg INHALATION Q4H PRN PRN 30 10/15/17 12/15/19 Days ml tiotropium bromide 18 mcg capsule 1 cap INHALATION DAILY #90 inh 09/26/18 12/15/19 with inhalation device mirtazapine 15 mg tablet 15 mg PO HS #30 tab 12/12/18 12/15/19 albuterol sulfate 90 mcg/actuation 2 puff INHALATION Q4H PRN PRN #1 01/03/19 12/15/19 aerosol inhaler inh polyethylene glycol 3350 17 17 gm PO DAILY PRN #850 gm 01/11/19 12/15/19 gram/dose oral powder bisacodyl 10 mg rectal suppository 10 mg LA DAILY PRN #8 each 01/30/19 12/15/19 calcium carbonate 500 mg calcium 500 mg PO BID #180 tab 02/19/19 12/15/19 (1,250 mg) tablet cholecalciferol (vitamin D3) 25 1,000 unit PO DAILY #90 cap 02/19/19 12/15/19 mcg (1,000 unit) capsule lubiprostone 24 mcg capsule 24 mcg PO DAILY #90 cap 04/24/19 12/15/19 docusate sodium [Colace] 100 mg PO BID #90 cap 04/28/19 12/15/19 apixaban 5 mg tablet 5 mg PO BID #180 tab 06/26/19 12/15/19 varicella-zoster gE-AS01B (PF) 50 0.5 ml IM ONCE #1 each 08/13/19 12/15/19 mcg/0.5 mL IM susp, kit fluoxetine 20 mg tablet 20 mg PO DAILY #90 tab-cap 09/16/19 12/15/19 hydroxyzine HCl 25 mg tablet 25 mg PO BID PRN #180 tab 10/15/19 12/15/19 sucralfate [Carafate] 5 ml PO TID #420 ml 10/18/19 12/15/19 budesonide-formoterol HFA 160 2 inh INHALATION BID #3 unit 12/03/19 12/15/19 mcg-4.5 mcg/actuation aerosol inhaler pantoprazole 40 mg tablet,delayed 40 mg PO DAILY #90 tab 12/03/19 12/15/19 release sennosides 8.6 mg-docusate sodium 1 tab PO BID #180 tab 12/03/19 12/15/19 50 mg tablet clonazepam 0.5 mg tablet 0.5 mg PO BID PRN #14 tab 12/09/19 12/15/19 Previous Rx's Medication Instructions Recorded Geeta Justin kit 10/15/17 albuterol sulfate 2.5 mg INHALATION Q4H PRN PRN 30 10/15/17 Days ml tiotropium bromide 18 mcg capsule 1 cap INHALATION DAILY #90 inh 09/26/18 with inhalation device mirtazapine 15 mg tablet 15 mg PO HS #30 tab 12/12/18 albuterol sulfate 90 mcg/actuation 2 puff INHALATION Q4H PRN PRN #1 01/03/19 aerosol inhaler inh polyethylene glycol 3350 17 17 gm PO DAILY PRN #850 gm 01/11/19 gram/dose oral powder bisacodyl 10 mg rectal suppository 10 mg LA DAILY PRN #8 each 01/30/19 calcium carbonate 500 mg calcium 500 mg PO BID #180 tab 02/19/19 (1,250 mg) tablet cholecalciferol (vitamin D3) 25 1,000 unit PO DAILY #90 cap 02/19/19 mcg (1,000 unit) capsule lubiprostone 24 mcg capsule 24 mcg PO DAILY #90 cap 04/24/19 docusate sodium [Colace] 100 mg PO BID #90 cap 04/28/19 apixaban 5 mg tablet 5 mg PO BID #180 tab 06/26/19 varicella-zoster gE-AS01B (PF) 50 0.5 ml IM ONCE #1 each 08/13/19 mcg/0.5 mL IM susp, kit fluoxetine 20 mg tablet 20 mg PO DAILY #90 tab-cap 09/16/19 hydroxyzine HCl 25 mg tablet 25 mg PO BID PRN #180 tab 10/15/19 sucralfate [Carafate] 5 ml PO TID #420 ml 10/18/19 budesonide-formoterol HFA 160 2 inh INHALATION BID #3 unit 12/03/19 mcg-4.5 mcg/actuation aerosol inhaler pantoprazole 40 mg tablet,delayed 40 mg PO DAILY #90 tab 12/03/19 release sennosides 8.6 mg-docusate sodium 1 tab PO BID #180 tab 12/03/19 50 mg tablet clonazepam 0.5 mg tablet 0.5 mg PO BID PRN #14 tab 12/09/19 Allergies Allergy/AdvReac Type Severity Reaction Status Date / Time No Known Allergies Allergy Verified 12/15/19 11:23 General Stated Complaint: Anxiety FLASH: 3 Review of Systems All systems reviewed & are unremarkable except as noted in HPI and below Cardiovascular Cardiovascular: Reports dyspnea Respiratory Respiratory: Denies cough and Reports dyspnea Psychiatric Psychiatric: Reports anxiety [facility] Medical History Adjustment disorder with anxiety (Chronic) Alcohol abuse (Chronic) Anxiety (Chronic) Dyspepsia (Chronic) Malignant neoplasm of right lung (Chronic) Tubular adenoma of colon (Inactive) Surgical History colonoscopy (Inactive 01/19/15) Also had a decompress colonoscopy with Dr Haresh Vásquez at [facility] on 06/09/18 for significant colon distention seen on CT scan, no prep done,therapeutic, diagnositc, still due for repeat on 01/19/25 History of lung biopsy (Resolved) History of surgery on upper extremity (Resolved) left Status post cataract extraction and insertion of intraocular lens of left eye (Chronic 11/05/18) Family History Father Essential hypertension Hyperlipidemia Paternal Uncle Heart disease Stroke Cerebral hemorrhage Hypertension Brother Cancer head and neck cancer - smoker Social History Smoking/Tobacco Use Status: Former Tobacco Use Quit Date: 06/05/98 Tobacco: How many years used: 30 Smokeless tobacco user: chewing tobacco Quit status: not considering quitting Alcohol Intake: former Drug use: Never Substance use type: does not use Details: Adopted: No Foster care: No 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 Housing: apartment Number of Children: 0 Communication Needs: None Do you need help understanding health information?: Often current occupation: not working Current gender identity: male How often do you talk on the phone with friends or family?: three or more times per week Panel score (0-1 are the most socially isolated patients): 1 What type of physical activity do you participate in: none and other Details: started lifting weights Frequency: daily Seatbelt use: always 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 Exam Const General: cooperative and no acute distress HENMT Mouth: moist mucous membranes Eyes Conjunctivae: normal conjunctivae Neck Neck: trachea midline and supple Resp Auscultation: clear to auscultation bilaterally, no rales, no rhonchi and no wheezes Cardio Jugular venous pressure: no JVD Rate: regular rate and not tachycardic Rhythm: regular rhythm GI Palpation: soft, not firm, no guarding, no masses, not rigid and nontender Skin General skin exam: no rashes or lesions noted Neuro General: patient alert and patient awake Extrem General: no edema Psych Appearance: grossly normal Mental Status: mental status grossly normal Speech and Movement: speech and movement normal Mood: anxious mood Affect: anxious affect Course Vital Signs Vital signs: Vital Signs Temperature 36.6 C 12/07/19 07:22 Pulse 65 12/07/19 07:22 Respiratory Rate 18 12/07/19 07:22 Blood Pressure 141/90 H 12/07/19 07:22 Pulse Oximetry 97 12/07/19 07:22 Temperature 36.6 C 12/07/19 07:22 Temperature Source Temporal Artery Scan 12/07/19 07:22 Pulse 65 12/07/19 07:22 Respiratory Rate 18 12/07/19 07:29 Respiratory Effort Non-Labored 12/07/19 07:29 Respiratory Depth Normal 12/07/19 07:29 Respiratory Pattern Normal 12/07/19 07:29 Blood Pressure 141/90 H 12/07/19 07:22 Blood Pressure Position Supine 12/07/19 07:22 Pulse Oximetry 97 12/07/19 07:22
== END 2019-12-07 08:35 | disposition home or self-care (01) ==
PROVIDERS: Emergency Provider Student in an Organized Health Care Education/Training Program; PCP Internal Medicine
DX: R06.02 Shortness of breath (principal); F41.9 Anxiety disorder, unspecified
CPT/HCPCS: 99283

== ENCOUNTER 2019-12-08 04:30 | Emergency (ER) | payer MEDICARE, MEDICAID, SELFPAY ==
[2019-12-08 04:31] VITALS: BP 137/103; PULSE 69; RESP 16; TEMP 36.6; O2SAT 99
[2019-12-08 04:36] VITALS: RESP 16
--- NOTE | 2019-12-08 04:38 | ED.GENADUL_ITS ---
Discharge Plan Disposition Patient Disposition: HOME Condition: Stable Discharge Details Chief Complaint: SOB Clinical Impression: Anxiety Primary Care Provider: Deborah Chow ED Provider: Mj Chen Home Meds and New Rx's Prescriptions: Continued Spiriva with HandiHaler 18 mcg capsule, w/inhalation device 1 cap Inhalation DAILY Qty: 90 RF: 0 mirtazapine 15 mg tablet 15 mg PO HS Qty: 30 RF: 1 Hold Instructions: Home Medication placed on hold at Doctor's office albuterol sulfate [ProAir HFA] 90 mcg/actuation HFA aerosol inhaler 2 puff Inhalation Q4H PRN PRN (Reason: Shortness Of Breath) Qty: 1 RF: 5 polyethylene glycol 3350 [Miralax] 17 gram/dose powder 17 gm PO DAILY PRN (Reason: constipation) Qty: 850 RF: 12 bisacodyl 10 mg suppository 10 mg MO DAILY PRN (Reason: constipation) Qty: 8 RF: 0 lubiprostone 24 mcg capsule 24 mcg PO DAILY Qty: 90 RF: 0 clonazepam [Klonopin] 0.5 mg tablet 0.5 mg PO BID PRNRF: 0 Hold Instructions: Home Medication placed on hold at Doctor's office cholecalciferol (vitamin D3) 1,000 unit capsule 1,000 unit PO DAILY Qty: 90 RF: 3 calcium carbonate 500 mg calcium (1,250 mg) tablet 500 mg PO BID Qty: 180 RF: 3 Shingrix (PF) 50 mcg/0.5 mL suspension for reconstitution 0.5 ml IM ONCE Qty: 1 RF: 1 apixaban 5 mg tablet 5 mg PO BID Qty: 180 RF: 3 fluoxetine 20 mg tablet 20 mg PO DAILY Qty: 90 RF: 3 hydroxyzine HCl 25 mg tablet 25 mg PO BID PRN (Reason: anxiety) Qty: 180 RF: 2 budesonide-formoterol [Symbicort] 160-4.5 mcg/actuation HFA aerosol inhaler 2 inh Inhalation BID Qty: 3 RF: 3 pantoprazole 40 mg tablet,delayed release (DR/EC) 40 mg PO DAILY Qty: 90 RF: 3 sennosides-docusate sodium [Senna-Time S] 8.6-50 mg tablet 1 tab PO BID Qty: 180 RF: 3 (DME) [employer] Advantage 1 EACH spacer 1 ea Miscellaneous DIRECTED RF: 0 albuterol sulfate 2.5 MG/3 ML solution for nebulization 2.5 mg Inhalation Q4H PRN PRN (Reason: Shortness Of Breath) 30 Days RF: 0 docusate sodium [Colace] 100 mg capsule 100 mg PO BID Qty: 90 RF: 0 sucralfate [Carafate] 100 mg/mL suspension 5 ml PO TID Qty: 420 RF: 1 Discharge Instructions Additional Instructions: please follow up with your primary care provider for continued treatment of your anxiety Medical Decision Making 64 yo male with multiple ED visits for similar complaints of not being able to sleep as he was feeling anxious and couldn't catch his breath. Denies chest pain or pressure, no diaphoresis no vomit. Has cronic epigastric burning which is unchanged and has soft nontender abdomen. He arrives HD stable. He does note he did not take any his prescribed meds for anxiety throughout the night. Denies si/hi. Was offered care bed several days ago and declined and still declines. Given he is speaking in full sentences in no distress and his complaints are unchanged from chronic complaints with reassuring stress tests, labs and imaging do not feel acute workup indicated. ADvised f/u with pcp and return precautions given Differential Diagnosis Differential Diagnosis: anxiety, globus sensation chronic epigastric pain HPI General Mode of arrival: EMS . Date/Time Provider Initiated Documentation: 12/08/19 04:36 . Limitations to Documentation: no limitations . Information obtained by: patient . History of Present Illness 64 year old M presents to the emergency department with the chief complaint of couldn't sleep, described as moderate, No relieving factors improve symptom(s), No exacerbating factors reported . Patient did receive the following treatments prior to arrival, none Related Data Home Medications Medication Instructions Recorded Confirmed [employer] Advantage kit 10/15/17 11/26/19 albuterol sulfate 2.5 mg INHALATION Q4H PRN PRN 30 10/15/17 12/07/19 Days ml tiotropium bromide 18 mcg capsule 1 cap INHALATION DAILY #90 inh 09/26/18 12/07/19 with inhalation device mirtazapine 15 mg tablet 15 mg PO HS #30 tab 12/12/18 12/07/19 clonazepam 0.5 mg tablet 0.5 mg PO BID PRN 12/19/18 12/07/19 albuterol sulfate 90 mcg/actuation 2 puff INHALATION Q4H PRN PRN #1 01/03/19 12/07/19 aerosol inhaler inh polyethylene glycol 3350 17 17 gm PO DAILY PRN #850 gm 01/11/19 12/07/19 gram/dose oral powder bisacodyl 10 mg rectal suppository 10 mg MO DAILY PRN #8 each 01/30/19 12/07/19 calcium carbonate 500 mg calcium 500 mg PO BID #180 tab 02/19/19 12/07/19 (1,250 mg) tablet cholecalciferol (vitamin D3) 25 1,000 unit PO DAILY #90 cap 02/19/19 12/07/19 mcg (1,000 unit) capsule lubiprostone 24 mcg capsule 24 mcg PO DAILY #90 cap 04/24/19 12/07/19 docusate sodium [Colace] 100 mg PO BID #90 cap 04/28/19 12/07/19 apixaban 5 mg tablet 5 mg PO BID #180 tab 06/26/19 12/07/19 varicella-zoster gE-AS01B (PF) 50 0.5 ml IM ONCE #1 each 08/13/19 12/07/19 mcg/0.5 mL IM susp, kit fluoxetine 20 mg tablet 20 mg PO DAILY #90 tab-cap 09/16/19 12/07/19 hydroxyzine HCl 25 mg tablet 25 mg PO BID PRN #180 tab 10/15/19 12/07/19 sucralfate [Carafate] 5 ml PO TID #420 ml 10/18/19 12/07/19 budesonide-formoterol HFA 160 2 inh INHALATION BID #3 unit 12/03/19 12/07/19 mcg-4.5 mcg/actuation aerosol inhaler pantoprazole 40 mg tablet,delayed 40 mg PO DAILY #90 tab 12/03/19 12/07/19 release sennosides 8.6 mg-docusate sodium 1 tab PO BID #180 tab 12/03/19 12/07/19 50 mg tablet Previous Rx's Medication Instructions [facility] 10/15/17 albuterol sulfate 2.5 mg INHALATION Q4H PRN PRN 30 10/15/17 Days ml tiotropium bromide 18 mcg capsule 1 cap INHALATION DAILY #90 inh 09/26/18 with inhalation device mirtazapine 15 mg tablet 15 mg PO HS #30 tab 12/12/18 albuterol sulfate 90 mcg/actuation 2 puff INHALATION Q4H PRN PRN #1 01/03/19 aerosol inhaler inh polyethylene glycol 3350 17 17 gm PO DAILY PRN #850 gm 01/11/19 gram/dose oral powder bisacodyl 10 mg rectal suppository 10 mg MO DAILY PRN #8 each 01/30/19 calcium carbonate 500 mg calcium 500 mg PO BID #180 tab 02/19/19 (1,250 mg) tablet cholecalciferol (vitamin D3) 25 1,000 unit PO DAILY #90 cap 02/19/19 mcg (1,000 unit) capsule lubiprostone 24 mcg capsule 24 mcg PO DAILY #90 cap 04/24/19 docusate sodium [Colace] 100 mg PO BID #90 cap 04/28/19 apixaban 5 mg tablet 5 mg PO BID #180 tab 06/26/19 varicella-zoster gE-AS01B (PF) 50 0.5 ml IM ONCE #1 each 08/13/19 mcg/0.5 mL IM susp, kit fluoxetine 20 mg tablet 20 mg PO DAILY #90 tab-cap 09/16/19 hydroxyzine HCl 25 mg tablet 25 mg PO BID PRN #180 tab 10/15/19 sucralfate [Carafate] 5 ml PO TID #420 ml 10/18/19 budesonide-formoterol HFA 160 2 inh INHALATION BID #3 unit 12/03/19 mcg-4.5 mcg/actuation aerosol inhaler pantoprazole 40 mg tablet,delayed 40 mg PO DAILY #90 tab 12/03/19 release sennosides 8.6 mg-docusate sodium 1 tab PO BID #180 tab 12/03/19 50 mg tablet Allergies Allergy/AdvReac Type Severity Reaction Status Date / Time No Known Allergies Allergy Verified 12/08/19 04:34 General Stated Complaint: SOB FLASH: 4 Review of Systems All systems reviewed & are unremarkable except as noted in HPI and below Constitutional Constitutional: Denies chills, Denies fever(s) and Denies weakness Cardiovascular Cardiovascular: Denies chest pain Respiratory Respiratory: Denies cough Gastrointestinal Gastrointestinal: Denies nausea and Denies vomiting Musculoskeletal Musculoskeletal: Denies joint swelling Neurologic Neurologic: Denies weakness Psychiatric Psychiatric: Denies depression [facility] Social History Smoking/Tobacco Use Status: Former Tobacco Use Quit Date: 06/05/98 Tobacco: How many years used: 30 Smokeless tobacco user: chewing tobacco Quit status: not considering quitting Alcohol Intake: former Drug use: Never Substance use type: does not use Details: Adopted: No Foster care: No 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 Housing: apartment Number of Children: 0 Communication Needs: None Do you need help understanding health information?: Often current occupation: not working Current gender identity: male How often do you talk on the phone with friends or family?: three or more times per week Panel score (0-1 are the most socially isolated patients): 1 What type of physical activity do you participate in: none and other Details: started lifting weights Frequency: daily Seatbelt use: always 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 Exam Const General: no acute distress Orientation: alert HENMT Head: normal to inspection Ears: external ears normal General nose exam: external nose normal Mouth: moist mucous membranes Eyes General: appearance normal, both eyes and all related structures Neck Neck: normal visual inspection Resp Effort & Inspection: normal respiratory effort and able to speak in complete sentences Cardio Rate: regular rate GI Palpation: soft and nontender Skin General skin exam: no rashes or lesions noted Neuro General: patient alert and patient oriented x3 Extrem General: normal to inspection Psych Mental Status: mental status grossly normal Course Vital Signs Vital signs: Vital Signs Temperature 36.6 C 12/08/19 04:31 Pulse 69 12/08/19 04:31 Respiratory Rate 16 12/08/19 04:31 Blood Pressure 137/103 H 12/08/19 04:31 Pulse Oximetry 99 12/08/19 04:31 Temperature 36.6 C 12/08/19 04:31 Temperature Source Temporal Artery Scan 12/08/19 04:31 Pulse 69 07/05/20 04:31 Respiratory Rate 16 12/08/19 04:36 Respiratory Effort Non-Labored 12/08/19 04:36 Respiratory Depth Normal 12/08/19 04:36 Respiratory Pattern Normal 12/08/19 04:36 Blood Pressure 137/103 H 12/08/19 04:31 Blood Pressure Position Sitting 12/08/19 04:31 Pulse Oximetry 99 12/08/19 04:31 Oxygen Delivery Method Room Air 12/08/19 04:31 Oxygen Flow Rate 0 12/08/19 04:31 Pain Level 9 12/08/19 04:31
[2019-12-08 04:48] VITALS: BP 132/102
== END 2019-12-08 04:45 | disposition home or self-care (01) ==
PROVIDERS: Emergency Provider Emergency Medicine; PCP Internal Medicine
DX: R10.13 Epigastric pain (principal); F41.9 Anxiety disorder, unspecified
CPT/HCPCS: 99283

== ENCOUNTER 2019-12-09 06:36 | Emergency (ER) | payer MEDICARE, MEDICAID, SELFPAY ==
[2019-12-09 06:40] VITALS: BP 94/62; PULSE 88; RESP 20; TEMP 36.5; O2SAT 96
--- NOTE | 2019-12-09 06:41 | W.ED.GENAD ---
Discharge Plan Disposition Patient Disposition: HOME Condition: Stable Discharge Details Chief Complaint: RespSymp Clinical Impression: Anxiety Primary Care Provider: Deborah Chow ED Provider: Mj Chen Home Meds and New Rx's Prescriptions: Continued Spiriva with HandiHaler 18 mcg capsule, w/inhalation device 1 cap Inhalation DAILY Qty: 90 RF: 0 mirtazapine 15 mg tablet 15 mg PO HS Qty: 30 RF: 1 Hold Instructions: Home Medication placed on hold at Doctor's office albuterol sulfate [ProAir HFA] 90 mcg/actuation HFA aerosol inhaler 2 puff Inhalation Q4H PRN PRN (Reason: Shortness Of Breath) Qty: 1 RF: 5 polyethylene glycol 3350 [Miralax] 17 gram/dose powder 17 gm PO DAILY PRN (Reason: constipation) Qty: 850 RF: 12 bisacodyl 10 mg suppository 10 mg LA DAILY PRN (Reason: constipation) Qty: 8 RF: 0 lubiprostone 24 mcg capsule 24 mcg PO DAILY Qty: 90 RF: 0 clonazepam [Klonopin] 0.5 mg tablet 0.5 mg PO BID PRNRF: 0 Hold Instructions: Home Medication placed on hold at Doctor's office cholecalciferol (vitamin D3) 1,000 unit capsule 1,000 unit PO DAILY Qty: 90 RF: 3 calcium carbonate 500 mg calcium (1,250 mg) tablet 500 mg PO BID Qty: 180 RF: 3 Shingrix (PF) 50 mcg/0.5 mL suspension for reconstitution 0.5 ml IM ONCE Qty: 1 RF: 1 apixaban 5 mg tablet 5 mg PO BID Qty: 180 RF: 3 fluoxetine 20 mg tablet 20 mg PO DAILY Qty: 90 RF: 3 hydroxyzine HCl 25 mg tablet 25 mg PO BID PRN (Reason: anxiety) Qty: 180 RF: 2 budesonide-formoterol [Symbicort] 160-4.5 mcg/actuation HFA aerosol inhaler 2 inh Inhalation BID Qty: 3 RF: 3 pantoprazole 40 mg tablet,delayed release (DR/EC) 40 mg PO DAILY Qty: 90 RF: 3 sennosides-docusate sodium [Senna-Time S] 8.6-50 mg tablet 1 tab PO BID Qty: 180 RF: 3 (DME) OptiChamber Advantage 1 EACH spacer 1 ea Miscellaneous DIRECTED RF: 0 albuterol sulfate 2.5 MG/3 ML solution for nebulization 2.5 mg Inhalation Q4H PRN PRN (Reason: Shortness Of Breath) 30 Days RF: 0 docusate sodium [Colace] 100 mg capsule 100 mg PO BID Qty: 90 RF: 0 sucralfate [Carafate] 100 mg/mL suspension 5 ml PO TID Qty: 420 RF: 1 Medical Decision Making 64 yo male comes in with over a year of sensation of not being able to catch his breath intermittently. He denies chest pressure, vomit, fevers. States intermittently he'll feel as though he can't catch his breath. ARrives HD stable speaking in full sentences in no distress with no focal deficits. HAs had numerous workups in the past week and numerous lab studies and cat scan and recent reassuring stress test. HIs symptoms have been diagnosed as likely anxiety disorder and when I bring this diagnosis up he gets angry and upset, no si/hi. When I state he is stable and no workup indicated he begs to stay and not go home and asks things like do you have any idea what my parent's will do if they lose me? due to his fear of dying. I tried to convince him that he was stable and no life threatening pathology at present exists and needs to follow up with his pcp this week as he has been directed numerous times. He left before I could type of the instructions Differential Diagnosis Differential Diagnosis: anxiety, globus senation HPI General Mode of arrival: ambulatory. Date/Time Provider Initiated Documentation: 12/09/19 06:41. Limitations to Documentation: no limitations. Information obtained by: patient. History of Present Illness 64 year old M presents to the emergency department with the chief complaint of can't catch breath, described as moderate, No relieving factors improve symptom(s), No exacerbating factors reported . Related Data Home Medications Medication Instructions Recorded Confirmed OptiChamber Advantage kit 10/15/17 11/26/19 albuterol sulfate 2.5 mg INHALATION Q4H PRN PRN 30 10/15/17 12/07/19 Days ml tiotropium bromide 18 mcg capsule 1 cap INHALATION DAILY #90 inh 09/26/18 12/07/19 with inhalation device mirtazapine 15 mg tablet 15 mg PO HS #30 tab 12/12/18 12/07/19 clonazepam 0.5 mg tablet 0.5 mg PO BID PRN 12/19/18 12/07/19 albuterol sulfate 90 mcg/actuation 2 puff INHALATION Q4H PRN PRN #1 01/03/19 12/07/19 aerosol inhaler inh polyethylene glycol 3350 17 17 gm PO DAILY PRN #850 gm 01/11/19 12/07/19 gram/dose oral powder bisacodyl 10 mg rectal suppository 10 mg LA DAILY PRN #8 each 01/30/19 12/07/19 calcium carbonate 500 mg calcium 500 mg PO BID #180 tab 02/19/19 12/07/19 (1,250 mg) tablet cholecalciferol (vitamin D3) 25 1,000 unit PO DAILY #90 cap 02/19/19 12/07/19 mcg (1,000 unit) capsule lubiprostone 24 mcg capsule 24 mcg PO DAILY #90 cap 04/24/19 12/07/19 docusate sodium [Colace] 100 mg PO BID #90 cap 04/28/19 12/07/19 apixaban 5 mg tablet 5 mg PO BID #180 tab 06/26/19 12/07/19 varicella-zoster [id number] (PF) 50 0.5 ml IM ONCE #1 each 08/13/19 12/07/19 mcg/0.5 mL IM susp, kit fluoxetine 20 mg tablet 20 mg PO DAILY #90 tab-cap 09/16/19 12/07/19 hydroxyzine HCl 25 mg tablet 25 mg PO BID PRN #180 tab 10/15/19 12/07/19 sucralfate [Carafate] 5 ml PO TID #420 ml 10/18/19 12/07/19 budesonide-formoterol HFA 160 2 inh INHALATION BID #3 unit 12/03/19 12/07/19 mcg-4.5 mcg/actuation aerosol inhaler pantoprazole 40 mg tablet,delayed 40 mg PO DAILY #90 tab 12/03/19 12/07/19 release sennosides 8.6 mg-docusate sodium 1 tab PO BID #180 tab 12/03/19 12/07/19 50 mg tablet Previous Rx's Medication Instructions Recorded [facility] kit 10/15/17 albuterol sulfate 2.5 mg INHALATION Q4H PRN PRN 30 10/15/17 Days ml tiotropium bromide 18 mcg capsule 1 cap INHALATION DAILY #90 inh 09/26/18 with inhalation device mirtazapine 15 mg tablet 15 mg PO HS #30 tab 12/12/18 albuterol sulfate 90 mcg/actuation 2 puff INHALATION Q4H PRN PRN #1 01/03/19 aerosol inhaler inh polyethylene glycol 3350 17 17 gm PO DAILY PRN #850 gm 01/11/19 gram/dose oral powder bisacodyl 10 mg rectal suppository 10 mg LA DAILY PRN #8 each 01/30/19 calcium carbonate 500 mg calcium 500 mg PO BID #180 tab 02/19/19 (1,250 mg) tablet cholecalciferol (vitamin D3) 25 1,000 unit PO DAILY #90 cap 02/19/19 mcg (1,000 unit) capsule lubiprostone 24 mcg capsule 24 mcg PO DAILY #90 cap 04/24/19 docusate sodium [Colace] 100 mg PO BID #90 cap 04/28/19 apixaban 5 mg tablet 5 mg PO BID #180 tab 06/26/19 varicella-zoster [id number]-AS01B (PF) 50 0.5 ml IM ONCE #1 each 08/13/19 mcg/0.5 mL IM susp, kit fluoxetine 20 mg tablet 20 mg PO DAILY #90 tab-cap 09/16/19 hydroxyzine HCl 25 mg tablet 25 mg PO BID PRN #180 tab 10/15/19 sucralfate [Carafate] 5 ml PO TID #420 ml 10/18/19 budesonide-formoterol HFA 160 2 inh INHALATION BID #3 unit 12/03/19 mcg-4.5 mcg/actuation aerosol inhaler pantoprazole 40 mg tablet,delayed 40 mg PO DAILY #90 tab 12/03/19 release sennosides 8.6 mg-docusate sodium 1 tab PO BID #180 tab 12/03/19 50 mg tablet Allergies Allergy/AdvReac Type Severity Reaction Status Date / Time No Known Allergies Allergy Verified 12/08/19 04:34 General FLASH: 4 Review of Systems All systems reviewed & are unremarkable except as noted in HPI and below Constitutional Constitutional: Denies chills, Denies fever(s) and Denies weakness Cardiovascular Cardiovascular: Denies chest pain and Denies dyspnea Respiratory Respiratory: Denies cough and Denies dyspnea Gastrointestinal Gastrointestinal: Denies abdominal pain, Denies nausea and Denies vomiting Musculoskeletal Musculoskeletal: Denies joint swelling Integumentary/Breasts Skin/Breast: Denies rash Neurologic Neurologic: Denies weakness Psychiatric Psychiatric: Denies depression [facility] Social History Smoking/Tobacco Use Status: Former Tobacco Use Quit Date: 06/05/98 Tobacco: How many years used: 30 Smokeless tobacco user: chewing tobacco Quit status: not considering quitting Alcohol Intake: former Drug use: Never Substance use type: does not use Details: Adopted: No Foster care: No Household members: other Details: [employer] Care Provider 26/12 Housing: apartment Number of Children: 0 Communication Needs: None Do you need help understanding health information?: Often current occupation: not working Current gender identity: male How often do you talk on the phone with friends or family?: three or more times per week Panel score (0-1 are the most socially isolated patients): 1 What type of physical activity do you participate in: none and other Details: started lifting weights Frequency: daily Seatbelt use: always Drive intox or ride w/intox refuse 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 Exam Const General: no acute distress Orientation: alert HENMT Head: normal to inspection Ears: external ears normal General nose exam: external nose normal Mouth: moist mucous membranes Eyes General: appearance normal, both eyes and all related structures Neck Neck: normal visual inspection Resp Effort & Inspection: normal respiratory effort and able to speak in complete sentences Cardio Rate: regular rate Skin General skin exam: no rashes or lesions noted Neuro General: patient alert and patient oriented x3 Extrem General: normal to inspection Psych Mental Status: mental status grossly normal
[2019-12-09 06:55] VITALS: BP 94/62; PULSE 88; RESP 20; TEMP 36.5; O2SAT 96
== END 2019-12-09 06:57 | disposition home or self-care (01) ==
PROVIDERS: Emergency Provider Emergency Medicine; PCP Internal Medicine
DX: F41.9 Anxiety disorder, unspecified (principal)
CPT/HCPCS: 99281; 99282

== ENCOUNTER 2019-12-12 18:58 | Emergency (ER) | payer MEDICARE, MEDICAID, SELFPAY ==
[2019-12-12] VITALS (16 sets, daily range): BP systolic 114–147; BP diastolic 80–97; PULSE 78–92; RESP 13–20; TEMP 36.5–37.1; O2SAT 93–95
--- NOTE | 2019-12-12 19:00 | RT.EKG_ITS ---
APPROVED REPORT Exam: Resting ECG Patient Location: E HR:87 bpm ECG Measurements Heart Rate 87 AXIS DE 158 P 76 QRSd 72 QRS 26 QT [id number] T 62 QTc 0 <Conclusion> Sinus rhythm...normal P axis, V-rate 60- 99 ST elevation, consider inferior injury...ST >0.08mV, II III aVF. Does not appear c/w ST elevation. No acute ST depression. No acute change from previous EKG.
--- NOTE | 2019-12-12 19:00 | RT.EKG_ITS ---
APPROVED REPORT Exam: Resting ECG Patient Location: E HR:82 bpm ECG Measurements Heart Rate 82 AXIS LA 154 P 71 QRSd 72 QRS 26 QT [id number] T 68 QTc 0 <Conclusion> Sinus rhythm...normal P axis, V-rate 60- 99 ST elevation, consider inferior injury...ST >0.08mV, II III aVF Does not appear c/w ST elevation. No acute change from previous EKG.
--- NOTE | 2019-12-12 19:04 | ED.GENADUL_ITS ---
Discharge Plan Disposition Patient Disposition: HOME Condition: Improving Discharge Details Chief Complaint: SOB Clinical Impression: Dysphagia, Chronic shortness of breath Primary Care Provider: Deborah Chow ED Provider: Alison Resendiz Home Meds and New Rx's Prescriptions: Continued Spiriva with HandiHaler 18 mcg capsule, w/inhalation device 1 cap Inhalation DAILY Qty: 90 RF: 0 mirtazapine 15 mg tablet 15 mg PO HS Qty: 30 RF: 1 Hold Instructions: Home Medication placed on hold at Doctor's office albuterol sulfate [ProAir HFA] 90 mcg/actuation HFA aerosol inhaler 2 puff Inhalation Q4H PRN PRN (Reason: Shortness Of Breath) Qty: 1 RF: 5 polyethylene glycol 3350 [Miralax] 17 gram/dose powder 17 gm PO DAILY PRN (Reason: constipation) Qty: 850 RF: 12 bisacodyl 10 mg suppository 10 mg SC DAILY PRN (Reason: constipation) Qty: 8 RF: 0 lubiprostone 24 mcg capsule 24 mcg PO DAILY Qty: 90 RF: 0 clonazepam [Klonopin] 0.5 mg tablet 0.5 mg PO BID PRN (Reason: anxiety) Qty: 14 RF: 0 Hold Instructions: Home Medication placed on hold at Doctor's office cholecalciferol (vitamin D3) 1,000 unit capsule 1,000 unit PO DAILY Qty: 90 RF: 3 calcium carbonate 500 mg calcium (1,250 mg) tablet 500 mg PO BID Qty: 180 RF: 3 Shingrix (PF) 50 mcg/0.5 mL suspension for reconstitution 0.5 ml IM ONCE Qty: 1 RF: 1 apixaban 5 mg tablet 5 mg PO BID Qty: 180 RF: 3 fluoxetine 20 mg tablet 20 mg PO DAILY Qty: 90 RF: 3 hydroxyzine HCl 25 mg tablet 25 mg PO BID PRN (Reason: anxiety) Qty: 180 RF: 2 budesonide-formoterol [Symbicort] 160-4.5 mcg/actuation HFA aerosol inhaler 2 inh Inhalation BID Qty: 3 RF: 3 pantoprazole 40 mg tablet,delayed release (DR/EC) 40 mg PO DAILY Qty: 90 RF: 3 sennosides-docusate sodium [Senna-Time S] 8.6-50 mg tablet 1 tab PO BID Qty: 180 RF: 3 (DME) [employer] Advantage 1 EACH spacer 1 ea Miscellaneous DIRECTED RF: 0 albuterol sulfate 2.5 MG/3 ML solution for nebulization 2.5 mg Inhalation Q4H PRN PRN (Reason: Shortness Of Breath) 30 Days RF: 0 docusate sodium [Colace] 100 mg capsule 100 mg PO BID Qty: 90 RF: 0 sucralfate [Carafate] 100 mg/mL suspension 5 ml PO TID Qty: 420 RF: 1 Discharge Instructions Instructions: Dyspnea (ED) Additional Instructions: Drink plenty of fluids and get plenty of rest. Alternate tylenol and motrin as needed and directed for pain. Follow-up with your primary care doctor in 1 week. Return to the emergency department with any worsening or new concerning symptoms. Discharge Data Discharge Physician: Alison Resendiz Medical Decision Making 1900 -- 64-year-old male well-known to the emergency department with a history of anxiety, depression, GERD, lung cancer, COPD, previous alcohol abuse presents for sensation of dysphasia and dyspnea today. This is his seventh visit within the last 10 days. He denies any chest pain at present. EKG on arrival notes a rate of 87, sinus with no acute ST ischemic change. EKG was read for the machine as possible inferior ST elevation but this does not appear obvious to me. A repeat EKG reported same finding but does not appear acutely different from previous EKG on December 05. Patient last had lab work drawn on December 05 which was unremarkable. Will obtain a repeat cardiac work-up, neck for soft tissue and chest x-ray. He had a barium swallow in August 2019 which noted Minimal tertiary contractions of the esophagus, otherwise unremarkable study. Attempted to give patient p.o. Ativan at bedside but he refused to swallow the pill as he states he is unable. He was able to swallow a drink of water after this but refused to swallow pills. Will order a dose of Ativan IV and follow-up on results and attempt p.o. challenge. 1999 -- Labs and imaging reviewed. Bicarb 20. Anion gap 19, suspect due to dehydration. Troponin negative. Stable appearance of right upper lobe lung mass. Neck x-ray negative. IV fluids were ordered but patient felt good to go home. He was able to drink fluids and felt much better. Patient called for his mom to pick him up. Advised to follow up with the primary care doctor for re-evaluation. Usual and customary return precautions given prior to discharge. Medical Records Medical records reviewed: Yes I reviewed the patient's medical records. Imaging Data Radiologic Study: Radiologist's impression: XR Soft Tissue Neck Exam date and time: 12/12/2019 7:46 PM Age: 64 years old Clinical indication: Dysphagia / difficulty swallowing; Patient HX: Patient sts difficulty swallowing. R/O fb. ; Additional info: Best images patient unable to fill airway, inspiration while taking images. Best images obtained per patient unable to breath in well. TECHNIQUE: Imaging protocol: XR of the soft tissues of the neck. COMPARISON: CT NECK W 11/13/2019 2:56 PM FINDINGS: Airway: Normal. No abnormal narrowing. No radiopaque foreign bodies detected within the oropharyngeal airway, larynx or trachea on the available views. Soft tissues: Normal. Unremarkable epiglottis. Bones/joints: Cervical spondylosis is evident with no acute osseous lesions detected. IMPRESSION: No acute findings. XR Chest, 2 Views Exam date and time: 12/12/2019 7:45 PM Age: 64 years old Clinical indication: Other: Trouble breathing, SOB TECHNIQUE: Imaging protocol: XR of the chest Views: 2 views. COMPARISON: CR XR CHEST 2V PA LATERAL 12/03/2019 7:20 AM FINDINGS: Lungs: Focal opacity is again seen along the medial aspect of the right upper lobe on the frontal view superimposed over the anterior right 1st rib and suspicious for underlying parenchymal mass. Remainder of both lungs are otherwise clear. Pleural space: No pneumothorax or pleural effusion is seen. Heart/Mediastinum: Normal cardiomediastinal silhouette with no evidence of cardiomegaly. Bones/joints: No acute osseous lesions are detected. IMPRESSION: Stable appearance of right upper lobe density concerning for underlying parenchymal mass. ECG Data Attestation: I personally reviewed and interpreted this ECG (s) as follows: Interpretation: 1905 --rate of 87, sinus, no acute ST elevation or depression. SC 158. QRS 72. 1916 --rate of 82, sinus, no acute ST elevation or depression. SC 154. QRS 72. HPI General Mode of arrival: ambulatory . Date/Time Provider Initiated Documentation: 12/12/19 19:04 . Limitations to Documentation: no limitations . Information obtained by: patient . HPI Narrative: Patient is a 64-year-old male well-known to the emergency department with a history of anxiety, depression, known lung cancer, COPD and previous alcohol abuse who presents for difficulty swallowing, shortness of breath and intermittent chest pain. He states his symptoms started within the past few hours. Patient has been seen here multiple times for the same complaint but states this is worse today. He was able to eat hotdog around 5 PM. He denies any fever, vomiting, abdominal pain or diarrhea. Related Data Home Medications Medication Instructions Recorded [facility] 10/15/17 11/26/19 albuterol sulfate 2.5 mg INHALATION Q4H PRN PRN 30 10/15/17 12/09/19 Days ml tiotropium bromide 18 mcg capsule 1 cap INHALATION DAILY #90 inh 09/26/18 12/09/19 with inhalation device mirtazapine 15 mg tablet 15 mg PO HS #30 tab 12/12/18 12/09/19 albuterol sulfate 90 mcg/actuation 2 puff INHALATION Q4H PRN PRN #1 01/03/19 12/09/19 aerosol inhaler inh polyethylene glycol 3350 17 17 gm PO DAILY PRN #850 gm 01/11/19 12/07/19 gram/dose oral powder bisacodyl 10 mg rectal suppository 10 mg SC DAILY PRN #8 each 01/30/19 12/09/19 calcium carbonate 500 mg calcium 500 mg PO BID #180 tab 02/19/19 12/09/19 (1,250 mg) tablet cholecalciferol (vitamin D3) 25 1,000 unit PO DAILY #90 cap 02/19/19 12/09/19 mcg (1,000 unit) capsule lubiprostone 24 mcg capsule 24 mcg PO DAILY #90 cap 04/24/19 12/07/19 docusate sodium [Colace] 100 mg PO BID #90 cap 04/28/19 12/09/19 apixaban 5 mg tablet 5 mg PO BID #180 tab 06/26/19 12/09/19 varicella-zoster gE-AS01B (PF) 50 0.5 ml IM ONCE #1 each 08/13/19 12/09/19 mcg/0.5 mL IM susp, kit fluoxetine 20 mg tablet 20 mg PO DAILY #90 tab-cap 09/16/19 12/09/19 hydroxyzine HCl 25 mg tablet 25 mg PO BID PRN #180 tab 10/15/19 12/07/19 sucralfate [Carafate] 5 ml PO TID #420 ml 10/18/19 12/09/19 budesonide-formoterol HFA 160 2 inh INHALATION BID #3 unit 12/03/19 12/09/19 mcg-4.5 mcg/actuation aerosol inhaler pantoprazole 40 mg tablet,delayed 40 mg PO DAILY #90 tab 12/03/19 12/09/19 release sennosides 8.6 mg-docusate sodium 1 tab PO BID #180 tab 12/03/19 12/09/19 50 mg tablet clonazepam 0.5 mg tablet 0.5 mg PO BID PRN #14 tab 12/09/19 12/09/19 Previous Rx's Medication Instructions Recorded [facility] Advantage kit 10/15/17 albuterol sulfate 2.5 mg INHALATION Q4H PRN PRN 30 10/15/17 Days ml tiotropium bromide 18 mcg capsule 1 cap INHALATION DAILY #90 inh 09/26/18 with inhalation device mirtazapine 15 mg tablet 15 mg PO HS #30 tab 12/12/18 albuterol sulfate 90 mcg/actuation 2 puff INHALATION Q4H PRN PRN #1 01/03/19 aerosol inhaler inh polyethylene glycol 3350 17 17 gm PO DAILY PRN #850 gm 01/11/19 gram/dose oral powder bisacodyl 10 mg rectal suppository 10 mg SC DAILY PRN #8 each 01/30/19 calcium carbonate 500 mg calcium 500 mg PO BID #180 tab 02/19/19 (1,250 mg) tablet cholecalciferol (vitamin D3) 25 1,000 unit PO DAILY #90 cap 02/19/19 mcg (1,000 unit) capsule lubiprostone 24 mcg capsule 24 mcg PO DAILY #90 cap 04/24/19 docusate sodium [Colace] 100 mg PO BID #90 cap 04/28/19 apixaban 5 mg tablet 5 mg PO BID #180 tab 06/26/19 varicella-zoster gE-AS01B (PF) 50 0.5 ml IM ONCE #1 each 08/13/19 mcg/0.5 mL IM susp, kit fluoxetine 20 mg tablet 20 mg PO DAILY #90 tab-cap 09/16/19 hydroxyzine HCl 25 mg tablet 25 mg PO BID PRN #180 tab 10/15/19 sucralfate [Carafate] 5 ml PO TID #420 ml 10/18/19 budesonide-formoterol HFA 160 2 inh INHALATION BID #3 unit 12/03/19 mcg-4.5 mcg/actuation aerosol inhaler pantoprazole 40 mg tablet,delayed 40 mg PO DAILY #90 tab 12/03/19 release sennosides 8.6 mg-docusate sodium 1 tab PO BID #180 tab 12/03/19 50 mg tablet clonazepam 0.5 mg tablet 0.5 mg PO BID PRN #14 tab 12/09/19 Allergies Allergy/AdvReac Type Severity Reaction Status Date / Time No Known Allergies Allergy Verified 12/12/19 19:04 General Stated Complaint: SOB FLASH: 3 Review of Systems All systems reviewed & are unremarkable except as noted in HPI and below Constitutional Constitutional: Reports as per HPI, Denies chills and Denies fever(s) Eyes Eyes: Denies blurry vision ENT Ears, Nose, Mouth, and Throat: Reports dysphagia, Denies dizziness, Denies sore throat and Reports throat swelling Cardiovascular Cardiovascular: Denies chest pain and Reports dyspnea Respiratory Respiratory: Denies cough and Reports dyspnea Gastrointestinal Gastrointestinal: Denies abdominal pain, Reports dysphagia, Denies diarrhea and Denies vomiting Genitourinary Genitourinary: Denies hematuria and Denies dysuria Musculoskeletal Musculoskeletal: Denies back pain and Denies numbness Integumentary/Breasts Skin/Breast: Denies lesions and Denies rash Neurologic Neurologic: Denies dizziness, Denies localized weakness and Denies numbness Allergic/Immunologic Allergic/Immunologic: Reports throat swelling COUNTS INCLUDE 234 BEDS AT THE [facility] Medical History (Updated 12/12/19 @ 20:05 by Alison Resendiz DO) Adjustment disorder with anxiety (Chronic) Alcohol abuse (Chronic) Anxiety (Chronic) Dyspepsia (Chronic) Malignant neoplasm of right lung (Chronic) Tubular adenoma of colon (Inactive) Surgical History colonoscopy (Inactive 01/19/15) Also had a decompress colonoscopy with Dr Haresh Vásquez at [facility] on 06/09/18 for significant colon distention seen on CT scan, no prep done,therapeutic, diagnositc, still due for repeat on 01/19/25 History of lung biopsy (Resolved) History of surgery on upper extremity (Resolved) left Status post cataract extraction and insertion of intraocular lens of left eye (Chronic 11/05/18) Social History Smoking/Tobacco Use Status: Former Tobacco Use Quit Date: 06/05/98 Tobacco: How many years used: 30 Smokeless tobacco user: chewing tobacco Quit status: not considering quitting Alcohol Intake: former Drug use: Never Substance use type: does not use Details: Adopted: No Foster care: No Household members: other Details: [employer] 26/12 Housing: apartment Number of Children: 0 Communication Needs: None Do you need help understanding health information?: Often current occupation: not working Current gender identity: male How often do you talk on the phone with friends or family?: three or more times per week Panel score (0-1 are the most socially isolated patients): 1 What type of physical activity do you participate in: none and other Details: started lifting weights Frequency: daily Seatbelt use: always Drive intox or ride w/intox driver wheelchair: No Water heater temp set <120 deg: Yes Working smoke detector in home: Yes Fire extinguisher in home: Yes Carbon monox detector in home: Yes Firearms in home: Yes Do you feel safe at home: Yes Do you feel safe in your relationship?: Yes Additional Social history: lives with parents. Exam Const General: cooperative and anxious (Moderate) Orientation: alert, awake and oriented x3 HENMT Head: normal to inspection Ears: hearing grossly normal bilaterally and external ears normal Mouth: tongue normal, no drooling, no trismus and other (Brown specks noted within mouth, appears consistent with tobacco) Throat: posterior oropharynx normal, uvula midline and no peritonsillar masses Eyes General: appearance normal, both eyes and all related structures EOM: EOM intact bilaterally Neck Neck: normal visual inspection and No submandibular swelling Lymphatic: no lymphadenopathy noted Chest Chest: normal inspection of the chest and no tenderness Resp Effort & Inspection: normal respiratory effort and able to speak in complete sentences Auscultation: clear to auscultation bilaterally Cardio Rate: regular rate Rhythm: regular rhythm GI Inspection: normal to inspection Palpation: soft, not firm, not rigid and nontender Auscultation: normal bowel sounds Skin General skin exam: no rashes or lesions noted Neuro General: patient alert, patient awake and patient oriented x3 Cognition: normal cognition Speech: speech normal Motor: muscle tone normal throughout Sensory Exam: no sensory deficits noted Extrem General: normal to inspection, full ROM, capillary refill normal, no calf tend erness bilaterally and no edema Psych Appearance: grossly normal Mental Status: mental status grossly normal Speech and Movement: speech and movement normal Affect: normal affect Course Vital Signs Vital signs: Vital Signs Temperature 97.7 F 12/12/19 18:59 Pulse 84 12/12/19 18:59 Respiratory Rate 17 12/12/19 18:59 Blood Pressure 143/90 H 12/12/19 18:59 Pulse Oximetry 94 L 12/12/19 18:59 Temperature 97.7 F 12/12/19 18:59 Temperature Source Skin 12/12/19 18:59 Pulse 84 12/12/19 18:59 Respiratory Rate 17 12/12/19 18:59 Respiratory Effort Non-Labored 12/12/19 19:03 Blood Pressure 143/90 H 12/12/19 18:59 Blood Pressure Position Sitting 12/12/19 18:59 Pulse Oximetry 94 L 12/12/19 18:59 Oxygen Delivery Method Room Air 12/12/19 18:59 Oxygen Flow Rate 0 12/12/19 18:59 Pain Level 9 12/12/19 18:59
[2019-12-12 19:44] LABS: Abs Immature Grans 0.02 k/cumm (0.0-0.09); Absolute Basophil Count 0.02 k/cumm (0.0-0.2); Absolute Eosinophil Count 0.05 k/cumm (0.0-0.7); Absolute Lymphocyte Count 1.67 k/cumm (1.2-3.4); Absolute Monocyte Count 0.76 k/cumm (0.11-0.7); Absolute Neutrophil Count 3.48 k/cumm (1.2-6.7); Basophils % 0.3; Eosinophils % 0.8; HCT 42.2 % (40.0-50.0); HGB 14.5 g/dL (13.5-17.5); Immature Grans % 0.3 %; Lymphocytes % 27.8; Mean Corp. HGB Concentration 34.4 g/dL (32.0-36.0); Mean Corpuscular Hemoglobin 29.5 pg (27.0-33.0); Mean Corpuscular Volume 85.9 fL (80-95); Mean Platelet Volume 10.1 fL (8.0-11.0); Monocytes % 12.7; Neutrophils % 58.1; Platelet Count 273 x1000/uL (130-400); RBC 4.91 m/cumm (4.50-6.00); RBC Distribution Width 12.9 % (11.8-14.1)
--- NOTE | 2019-12-12 19:50 | DI.RAD_ITS ---
EXAM: XR CHEST 2V PA LATERAL CLINICAL HISTORY: r/o acute disease TECHNIQUE: 2D digital imaging was performed. COMPARISON: CR XR CHEST 2V PA LATERAL from 10/14/2018 CR XR CHEST 2V PA LATERAL from 12/07/2018 CR XR CHEST 2V PA LATERAL from 05/13/[address] NECK W from 06/07/2019 CR,XR XR CHEST 2V PA LATERAL from 12/03/2019 FINDINGS: The patient has a history of lung cancer. There is again noted to be in a density in the right upp er lobe, presumably representing an area of scarring. The lungs are otherwise clear. The heart size is normal. No pneumothorax is present. Spine shows mild degenerative changes. IMPRESSION: Right upper lobe opacity, unchanged, presumed scarring.
--- NOTE | 2019-12-12 19:50 | DI.RAD_ITS ---
EXAM: XR SOFT TISSUE NECK CLINICAL HISTORY: r/o acute disease/foreign body TECHNIQUE: 2D digital imaging was performed. COMPARISON: CR RF BARIUM SWALLOW from 08/21/2019 FINDINGS: No foreign body is identified. Degenerative changes are seen in the cervical spine. The airway tori ears intact. The visualized portions of the upper lobes appear clear. No abnormal soft tissue air. IMPRESSION: No evidence of foreign body.
[2019-12-12 19:54] LABS: ALT 23 U/L (16-63); AST 23 U/L (15-37); Alkaline Phosphatase 92 U/L (46-116); Anion Gap 19.9 mmol/L (3-11); BUN 24 mg/dL (7-18); Bilirubin, Total 1.2 mg/dL (0.2-1.0); CO2 20.1 mmol/L (21.0-32.0); CREATININE 1.14 mg/dL (0.70-1.30); Calcium 8.6 mg/dL (8.5-10.1); Chloride 102 mmol/L (98-107); Glucose 81 mg/dL (74-106); Magnesium 2.2 mg/dL (1.8-2.4); Potassium 3.4 mmol/L (3.5-5.1); Sodium 142 mmol/L (136-145); Total Protein 7.8 g/dL (6.4-8.2)
[2019-12-12 19:55] LABS: Troponin I < 0.05 ng/mL (<0.06)
--- NOTE | 2019-12-12 20:01 | DI.VRAD_ITS ---
PROCEDURE INFORMATION: Exam: XR Chest, 2 Views Exam date and time: 12/12/2019 7:45 PM Age: 64 years old Clinical indication: Other: Trouble breathing, SOB TECHNIQUE: Imaging protocol: XR of the chest Views: 2 views. COMPARISON: CR XR CHEST 2V PA LATERAL 12/03/2019 7:20 AM FINDINGS: Lungs: Focal opacity is again seen along the medial aspect of the right upper lobe on the frontal view superimposed over the anterior right 1st rib and suspicious for underlying parenchymal mass. Remainder of both lungs are otherwise clear. Pleural space: No pneumothorax or pleural effusion is seen. Heart/Mediastinum: Normal cardiomediastinal silhouette with no evidence of cardiomegaly. Bones/joints: No acute osseous lesions are detected. IMPRESSION: Stable appearance of right upper lobe density concerning for underlying parenchymal mass. Dictated and Authenticated by: Gage Curtis MD. Ordering:ANNA Rosas MD
[2019-12-12] MEDS: LORazepam 2 MG/ML VIAL 1 MG IVP (20:02)
--- NOTE | 2019-12-12 20:02 | DI.VRAD_ITS ---
PROCEDURE INFORMATION: Exam: XR Soft Tissue Neck Exam date and time: 12/12/2019 7:46 PM Age: 64 years old Clinical indication: Dysphagia / difficulty swallowing; Patient HX: Patient sts difficulty swallowing. R/O fb. ; Additional info: Best images patient unable to fill airway, inspiration while taking images. Best images obtained per patient unable to breath in well. TECHNIQUE: Imaging protocol: XR of the soft tissues of the neck. COMPARISON: CT NECK W 11/13/2019 2:56 PM FINDINGS: Airway: Normal. No abnormal narrowing. No radiopaque foreign bodies detected within the oropharyngeal airway, larynx or trachea on the available views. Soft tissues: Normal. Unremarkable epiglottis. Bones/joints: Cervical spondylosis is evident with no acute osseous lesions detected. IMPRESSION: No acute findings. Dictated and Authenticated by: Gage Curtis MD. Ordering:ANNA Rosas MD
== END 2019-12-12 20:30 | disposition home or self-care (01) ==
PROVIDERS: Emergency Provider Physician Assistant; PCP Internal Medicine
DX: R13.10 Dysphagia, unspecified (principal); R06.02 Shortness of breath; R41.81 Age-related cognitive decline; C34.90 Malignant neoplasm of unspecified part of unspecified bronchus or lung; J44.9 Chronic obstructive pulmonary disease, unspecified; Z87.891 Personal history of nicotine dependence
CPT/HCPCS: 36415; 80053; 93005; 99285; 70360; 71046; 83735; 84484; 85025; 93010; J2060

== ENCOUNTER 2019-12-13 13:40 | Emergency (ER) | payer MEDICARE, MEDICAID, SELFPAY ==
[2019-12-13 13:43] VITALS: BP 126/76; PULSE 81; RESP 16; TEMP 36.5; O2SAT 95
--- NOTE | 2019-12-13 14:00 | W.ED.GENAD ---
Discharge Plan Disposition Patient Disposition: HOME Condition: Stable Discharge Details Chief Complaint: Sorethroat Clinical Impression: Anxiety Primary Care Provider: Deborah Chow ED Provider: Alison Resendiz Home Meds and New Rx's Prescriptions: Continued Spiriva with HandiHaler 18 mcg capsule, w/inhalation device 1 cap Inhalation DAILY Qty: 90 RF: 0 mirtazapine 15 mg tablet 15 mg PO HS Qty: 30 RF: 1 Hold Instructions: Home Medication placed on hold at Doctor's office albuterol sulfate [ProAir HFA] 90 mcg/actuation HFA aerosol inhaler 2 puff Inhalation Q4H PRN PRN (Reason: Shortness Of Breath) Qty: 1 RF: 5 polyethylene glycol 3350 [Miralax] 17 gram/dose powder 17 gm PO DAILY PRN (Reason: constipation) Qty: 850 RF: 12 bisacodyl 10 mg suppository 10 mg AR DAILY PRN (Reason: constipation) Qty: 8 RF: 0 lubiprostone 24 mcg capsule 24 mcg PO DAILY Qty: 90 RF: 0 clonazepam [Klonopin] 0.5 mg tablet 0.5 mg PO BID PRN (Reason: anxiety) Qty: 14 RF: 0 Hold Instructions: Home Medication placed on hold at Doctor's office cholecalciferol (vitamin D3) 1,000 unit capsule 1,000 unit PO DAILY Qty: 90 RF: 3 calcium carbonate 500 mg calcium (1,250 mg) tablet 500 mg PO BID Qty: 180 RF: 3 Shingrix (PF) 50 mcg/0.5 mL suspension for reconstitution 0.5 ml IM ONCE Qty: 1 RF: 1 apixaban 5 mg tablet 5 mg PO BID Qty: 180 RF: 3 fluoxetine 20 mg tablet 20 mg PO DAILY Qty: 90 RF: 3 hydroxyzine HCl 25 mg tablet 25 mg PO BID PRN (Reason: anxiety) Qty: 180 RF: 2 budesonide-formoterol [Symbicort] 160-4.5 mcg/actuation HFA aerosol inhaler 2 inh Inhalation BID Qty: 3 RF: 3 pantoprazole 40 mg tablet,delayed release (DR/EC) 40 mg PO DAILY Qty: 90 RF: 3 sennosides-docusate sodium [Senna-Time S] 8.6-50 mg tablet 1 tab PO BID Qty: 180 RF: 3 (DME) [employer] Advantage 1 EACH spacer 1 ea Miscellaneous DIRECTED RF: 0 albuterol sulfate 2.5 MG/3 ML solution for nebulization 2.5 mg Inhalation Q4H PRN PRN (Reason: Shortness Of Breath) 30 Days RF: 0 docusate sodium [Colace] 100 mg capsule 100 mg PO BID Qty: 90 RF: 0 sucralfate [Carafate] 100 mg/mL suspension 5 ml PO TID Qty: 420 RF: 1 Discharge Instructions Instructions: Anxiety (ED) Additional Instructions: Take your regular medications as directed. Drink plenty of fluids and get plenty of rest. Follow-up with your primary care doctor in 1 week. Return to the emergency department with any worsening or new concerning symptoms. Discharge Data Discharge Date/Time-TO BE ENTERED AT DEPARTURE: 12/13/19 14:32 Discharge Physician: Alison Resendiz Medical Decision Making 64-year-old male well-known to the emergency department with a history of anxiety, depression, former alcohol abuse, lung cancer, GERD who presents for dysphasia today. Patient has been seen here 9 times in the past 11 days for the same complaint. He was seen here yesterday for the same complaint and had negative neck for soft tissue x-ray, chest x-ray, negative troponin and unremarkable EKG. Patient was given a dose of IV Ativan yesterday and is requesting a dose of this today for his sensation of difficulty swallowing. Patient had an essentially unremarkable swallowing study in August 2019. Patient denies any chest pain or shortness of breath today. He is able to speak in full sentences with normal vital signs, normal oropharynx, clear lungs and nontender abdomen. No drooling, trismus or submandibular swelling. Patient's presentation appears consistent with his usual presentation of anxiety. Case discussed with care management about possibly sending patient to [facility] but states this will need to be further evaluated with plan for discussion between patient's PCP as well as [facility] staff on Monday morning. We will discharge patient to home. Usual and customary return precautions given prior to discharge. Medical Records Medical records reviewed: Yes I reviewed the patient's medical records. HPI General Mode of arrival: ambulatory. Date/Time Provider Initiated Documentation: 12/13/19 13:59. Limitations to Documentation: no limitations. Information obtained by: patient. HPI Narrative: Patient is a 64-year-old male with a history of anxiety, adjustment disorder, known lung CA, COPD, GERD who presents for difficulty swallowing today. Patient is well-known to the emergency department and comes here frequently for the same complaint. Patient has been here 9 times in the past 11 days for the same complaint. He denies any chest pain or shortness of breath. Related Data Home Medications Medication Instructions Recorded [facility] 10/15/17 12/13/19 albuterol sulfate 2.5 mg INHALATION Q4H PRN PRN 30 10/15/17 12/13/19 Days ml tiotropium bromide 18 mcg capsule 1 cap INHALATION DAILY #90 inh 09/26/18 12/13/19 with inhalation device mirtazapine 15 mg tablet 15 mg PO HS #30 tab 12/12/18 12/13/19 albuterol sulfate 90 mcg/actuation 2 puff INHALATION Q4H PRN PRN #1 01/03/19 12/13/19 aerosol inhaler inh polyethylene glycol 3350 17 17 gm PO DAILY PRN #850 gm 01/11/19 12/13/19 gram/dose oral powder bisacodyl 10 mg rectal suppository 10 mg AR DAILY PRN #8 each 01/30/19 12/13/19 calcium carbonate 500 mg calcium 500 mg PO BID #180 tab 02/19/19 12/13/19 (1,250 mg) tablet cholecalciferol (vitamin D3) 25 1,000 unit PO DAILY #90 cap 02/19/19 12/13/19 mcg (1,000 unit) capsule lubiprostone 24 mcg capsule 24 mcg PO DAILY #90 cap 04/24/19 12/13/19 docusate sodium [Colace] 100 mg PO BID #90 cap 04/28/19 12/13/19 apixaban 5 mg tablet 5 mg PO BID #180 tab 06/26/19 12/13/19 varicella-zoster gE-AS01B (PF) 50 0.5 ml IM ONCE #1 each 08/13/19 12/09/19 mcg/0.5 mL IM susp, kit fluoxetine 20 mg tablet 20 mg PO DAILY #90 tab-cap 09/16/19 12/13/19 hydroxyzine HCl 25 mg tablet 25 mg PO BID PRN #180 tab 10/15/19 12/13/19 sucralfate [Carafate] 5 ml PO TID #420 ml 10/18/19 12/13/19 budesonide-formoterol HFA 160 2 inh INHALATION BID #3 unit 12/03/19 12/13/19 mcg-4.5 mcg/actuation aerosol inhaler pantoprazole 40 mg tablet,delayed 40 mg PO DAILY #90 tab 12/03/19 12/13/19 release sennosides 8.6 mg-docusate sodium 1 tab PO BID #180 tab 12/03/19 12/13/19 50 mg tablet clonazepam 0.5 mg tablet 0.5 mg PO BID PRN #14 tab 12/09/19 12/13/19 Previous Rx's Medication Instructions [facility]ed [facility] kit 10/15/17 albuterol sulfate 2.5 mg INHALATION Q4H PRN PRN 30 10/15/17 Days ml tiotropium bromide 18 mcg capsule 1 cap INHALATION DAILY #90 inh 09/26/18 with inhalation device mirtazapine 15 mg tablet 15 mg PO HS #30 tab 12/12/18 albuterol sulfate 90 mcg/actuation 2 puff INHALATION Q4H PRN PRN #1 01/03/19 aerosol inhaler inh polyethylene glycol 3350 17 17 gm PO DAILY PRN #850 gm 01/11/19 gram/dose oral powder bisacodyl 10 mg rectal suppository 10 mg AR DAILY PRN #8 each 01/30/19 calcium carbonate 500 mg calcium 500 mg PO BID #180 tab 02/19/19 (1,250 mg) tablet cholecalciferol (vitamin D3) 25 1,000 unit PO DAILY #90 cap 02/19/19 mcg (1,000 unit) capsule lubiprostone 24 mcg capsule 24 mcg PO DAILY #90 cap 04/24/19 docusate sodium [Colace] 100 mg PO BID #90 cap 04/28/19 apixaban 5 mg tablet 5 mg PO BID #180 tab 06/26/19 varicella-zoster gE-AS01B (PF) 50 0.5 ml IM ONCE #1 each 08/13/19 mcg/0.5 mL IM susp, kit fluoxetine 20 mg tablet 20 mg PO DAILY #90 tab-cap 09/16/19 hydroxyzine HCl 25 mg tablet 25 mg PO BID PRN #180 tab 10/15/19 sucralfate [Carafate] 5 ml PO TID #420 ml 10/18/19 budesonide-formoterol HFA 160 2 inh INHALATION BID #3 unit 12/03/19 mcg-4.5 mcg/actuation aerosol inhaler pantoprazole 40 mg tablet,delayed 40 mg PO DAILY #90 tab 12/03/19 release sennosides 8.6 mg-docusate sodium 1 tab PO BID #180 tab 12/03/19 50 mg tablet clonazepam 0.5 mg tablet 0.5 mg PO BID PRN #14 tab 12/09/19 Allergies Allergy/AdvReac Type Severity Reaction Status Date / Time No Known Allergies Allergy Verified 12/13/19 13:52 General Stated Complaint: Sorethroat FLASH: 4 Review of Systems All systems reviewed & are unremarkable except as noted in HPI and below Constitutional Constitutional: Reports as per HPI, Denies chills and Denies fever(s) Eyes Eyes: Denies blurry vision ENT Ears, Nose, Mouth, and Throat: Reports dysphagia, Denies dizziness, Denies sore throat and Denies throat swelling Cardiovascular Cardiovascular: Denies chest pain and Denies dyspnea Respiratory Respiratory: Denies cough and Denies dyspnea Gastrointestinal Gastrointestinal: Denies abdominal pain, Reports dysphagia, Denies diarrhea and Denies vomiting Genitourinary Genitourinary: Denies hematuria and Denies dysuria Musculoskeletal Musculoskeletal: Denies back pain and Denies numbness Integumentary/Breasts Skin/Breast: Denies lesions and Denies rash Neurologic Neurologic: Denies dizziness, Denies localized weakness and Denies numbness Allergic/Immunologic Allergic/Immunologic: Denies throat swelling [facility] Medical History (Updated 12/13/19 @ 14:24 by Alison Resendiz DO) Adjustment disorder with anxiety (Chronic) Alcohol abuse (Chronic) Anxiety (Chronic) Dyspepsia (Chronic) Malignant neoplasm of right lung (Chronic) Tubular adenoma of colon (Inactive) Surgical History colonoscopy (Inactive 01/19/15) Also had a decompress colonoscopy with Dr Haresh Vásquez at [facility] on 06/09/18 for significant colon distention seen on CT scan, no prep done,therapeutic, diagnositc, still due for repeat on 01/19/25 History of lung biopsy (Resolved) History of surgery on upper extremity (Resolved) left Status post cataract extraction and insertion of intraocular lens of left eye (Chronic 11/05/18) Social History Smoking/Tobacco Use Status: Former Tobacco Use Quit Date: 06/05/98 Tobacco: How many years used: 30 Smokeless tobacco user: chewing tobacco Quit status: not considering quitting Alcohol Intake: former Drug use: Never Substance use type: does not use Details: Adopted: No Foster care: No Household members: other Details: [employer] Care Provider 26/12 Housing: apartment Number of Children: 0 Communication Needs: None Do you need help understanding health information?: Often current occupation: not working Current gender identity: male How often do you talk on the phone with friends or family?: three or more times per week Panel score (0-1 are the most socially isolated patients): 1 What type of physical activity do you participate in: none and other Details: started lifting weights Frequency: daily Seatbelt use: always Drive intox or ride w/intox bus 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 Exam Const General: cooperative and anxious Orientation: alert, awake and oriented x3 HENMT Head: normal to inspection Ears: hearing grossly normal bilaterally and external ears normal Face and sinus: normal facial exam Mouth: oral mucosae normal Throat: posterior oropharynx normal Eyes General: appearance normal, both eyes and all related structures Pupils: PERRL EOM: EOM intact bilaterally Neck Neck: normal visual inspection and No submandibular swelling Lymphatic: no lymphadenopathy noted Chest Chest: normal inspection of the chest and no tenderness Resp Effort & Inspection: normal respiratory effort and able to speak in complete sentences Auscultation: clear to auscultation bilaterally Cardio Rate: regular rate Rhythm: regular rhythm GI Inspection: normal to inspection Palpation: soft, not firm, not rigid and nontender Auscultation: normal bowel sounds Skin General skin exam: no rashes or lesions noted Neuro General: patient alert, patient awake and patient oriented x3 Cognition: normal cognition Speech: speech normal Motor: muscle tone normal throughout Sensory Exam: no sensory deficits noted Extrem General: normal to inspection, full ROM, capillary refill normal, no calf tenderness bilaterally and no edema Psych Appearance: grossly normal Mental Status: mental status grossly normal Speech and Movement: speech and movement normal Affect: normal affect Course Vital Signs Vital signs: Vital Signs Temperature 97.7 F 12/13/19 13:43 Pulse 81 12/13/19 13:43 Respiratory Rate 16 12/13/19 13:43 Blood Pressure 126/76 12/13/19 13:43 Pulse Oximetry 95 12/13/19 13:43 Temperature 97.7 F 12/13/19 13:43 Temperature Source Skin 12/13/19 13:43 Pulse 81 12/13/19 13:43 Respiratory Rate 16 12/13/19 13:43 Respiratory Effort Non-Labored 12/13/19 13:46 Blood Pressure 126/76 12/13/19 13:43 Blood Pressure Position Sitting 12/13/19 13:43 Pulse Oximetry 95 12/13/19 13:43 Oxygen Delivery Method Room Air 12/13/19 13:43 Oxygen Flow Rate 0 12/13/19 13:43 Pain Level 9 12/13/19 13:43
[2019-12-13 14:32] VITALS: BP 126/76; PULSE 81; RESP 16; TEMP 36.5; O2SAT 95
== END 2019-12-13 14:32 | disposition home or self-care (01) ==
PROVIDERS: Emergency Provider Physician Assistant; PCP Internal Medicine
DX: F43.22 Adjustment disorder with anxiety (principal); K21.9 Gastro-esophageal reflux disease without esophagitis; J44.9 Chronic obstructive pulmonary disease, unspecified; Z87.891 Personal history of nicotine dependence; F17.220 Nicotine dependence, chewing tobacco, uncomplicated
CPT/HCPCS: 99283

== ENCOUNTER 2019-12-14 11:45 | Emergency (ER) | payer MEDICARE, MEDICAID, SELFPAY ==
--- NOTE | 2019-12-14 11:48 | ED.GENADUL_ITS ---
Discharge Plan Disposition Patient Disposition: HOME Discharge Details Chief Complaint: RespSymp Clinical Impression: Strep throat Primary Care Provider: Deborah Chow ED Provider: Angelica Majano Home Meds and New Rx's Prescriptions: Continued Spiriva with HandiHaler 18 mcg capsule, w/inhalation device 1 cap Inhalation DAILY Qty: 90 RF: 0 mirtazapine 15 mg tablet 15 mg PO HS Qty: 30 RF: 1 Hold Instructions: Home Medication placed on hold at Doctor's office albuterol sulfate [ProAir HFA] 90 mcg/actuation HFA aerosol inhaler 2 puff Inhalation Q4H PRN PRN (Reason: Shortness Of Breath) Qty: 1 RF: 5 polyethylene glycol 3350 [Miralax] 17 gram/dose powder 17 gm PO DAILY PRN (Reason: constipation) Qty: 850 RF: 12 bisacodyl 10 mg suppository 10 mg UT DAILY PRN (Reason: constipation) Qty: 8 RF: 0 lubiprostone 24 mcg capsule 24 mcg PO DAILY Qty: 90 RF: 0 clonazepam [Klonopin] 0.5 mg tablet 0.5 mg PO BID PRN (Reason: anxiety) Qty: 14 RF: 0 Hold Instructions: Home Medication placed on hold at Doctor's office cholecalciferol (vitamin D3) 1,000 unit capsule 1,000 unit PO DAILY Qty: 90 RF: 3 calcium carbonate 500 mg calcium (1,250 mg) tablet 500 mg PO BID Qty: 180 RF: 3 Shingrix (PF) 50 mcg/0.5 mL suspension for reconstitution 0.5 ml IM ONCE Qty: 1 RF: 1 apixaban 5 mg tablet 5 mg PO BID Qty: 180 RF: 3 fluoxetine 20 mg tablet 20 mg PO DAILY Qty: 90 RF: 3 hydroxyzine HCl 25 mg tablet 25 mg PO BID PRN (Reason: anxiety) Qty: 180 RF: 2 budesonide-formoterol [Symbicort] 160-4.5 mcg/actuation HFA aerosol inhaler 2 inh Inhalation BID Qty: 3 RF: 3 pantoprazole 40 mg tablet,delayed release (DR/EC) 40 mg PO DAILY Qty: 90 RF: 3 sennosides-docusate sodium [Senna-Time S] 8.6-50 mg tablet 1 tab PO BID Qty: 180 RF: 3 (DME) [employer] Advantage 1 EACH spacer 1 ea Miscellaneous DIRECTED RF: 0 albuterol sulfate 2.5 MG/3 ML solution for nebulization 2.5 mg Inhalation Q4H PRN PRN (Reason: Shortness Of Breath) 30 Days RF: 0 docusate sodium [Colace] 100 mg capsule 100 mg PO BID Qty: 90 RF: 0 sucralfate [Carafate] 100 mg/mL suspension 5 ml PO TID Qty: 420 RF: 1 Discharge Instructions Instructions: Strep Throat (ED) Additional Instructions: Your testing today shows that you have strep throat. You were given a shot of penicillin. This will still take a few days before you have a large improvement in your symptoms. Please continue to encourage water intake. You may use Tylenol and/or ibuprofen as needed for discomfort. Please follow-up with primary care next week. Return with any new or worsening emergent symptoms. Referrals: Deborah Chow MD [Primary Care Provider] - Discharge Data Discharge Date/Time-TO BE ENTERED AT DEPARTURE: 12/14/19 12:40 Medical Decision Making Patient is a pleasant 64-year-old gentleman, well-known to myself in the department, presenting today with chief complaint of fever and inability to swallow. Patient states that he did take all his medications today, swell these without difficulty. Was able to eat spaghetti last night for dinner. Patient states that the shortness of breath is at his baseline, patient does have known lung cancer and has chronic shortness of breath. Patient has been here a multitude of times in the recent days with this complaint. He did undergo a CT scan of soft tissue neck 2 days ago with without significant abnormality. Patient did have laboratory evaluation at that time as well which also was without significant abnormality. There is plan for patient to get into rehab hold. On exam, patient appears nont oxic. He does appear anxious which is patient's baseline. He was treated with Ativan and is requesting more of the same as this did improve his symptoms. His lungs are clear, normal cardiac exam. He does have some erythema and exudates of the bilateral tonsils. Uvula is midline, no evidence of an abscess. Will obtain rapid strep testing and reevaluate. Rapid strep testing positive. Discussed treatment options. Will treat with IM Penicillin. Patient and I discussed that he does not have any findings to suggest airway compromise. We discussed that while he may intermittently feel that he is unable to swallow, he is still eating and taking his medications normally. Tried to offer a lot of reassurance as he is such an anxious patient. All of his questions and concerns were addressed, he will f/u with PCP. HPI General Mode of arrival: ambulatory . Date/Time Provider Initiated Documentation: 12/14/19 11:48 . Limitations to Documentation: no limitations . Information obtained by: patient and RN notes reviewed . History of Present Illness 64 year old M presents to the emergency department with the chief complaint of sore throat, described as severe, with intensity rated at 9. Quality is described as burning, and is localized to the mouth. Patient reports no radiation. Patient started experiencing this week(s) and it has been constant. No relieving factors improve symptom(s), No exacerbating factors reported . Patient notes fever/chills (subjective fever) and shortness of breath (chronic, unchanged); denies chest pain, cough, headaches, loss of appetite, nausea/vomiting and rash. Patient did receive the following treatments prior to arrival, none Related Data Home Medications Medication Instructions Recorded Confirmed [employer]! Advantage kit 10/15/17 12/13/19 albuterol sulfate 2.5 mg INHALATION Q4H PRN PRN 30 10/15/17 12/14/19 Days ml tiotropium bromide 18 mcg capsule 1 cap INHALATION DAILY #90 inh 09/26/18 12/14/19 with inhalation device mirtazapine 15 mg tablet 15 mg PO HS #30 tab 12/12/18 12/14/19 albuterol sulfate 90 mcg/actuation 2 puff INHALATION Q4H PRN PRN #1 01/03/19 12/14/19 aerosol inhaler inh polyethylene glycol 3350 17 17 gm PO DAILY PRN #850 gm 01/11/19 12/14/19 gram/dose oral powder bisacodyl 10 mg rectal suppository 10 mg UT DAILY PRN #8 each 01/30/19 12/14/19 calcium carbonate 500 mg calcium 500 mg PO BID #180 tab 02/19/19 12/14/19 (1,250 mg) tablet cholecalciferol (vitamin D3) 25 1,000 unit PO DAILY #90 cap 02/19/19 12/14/19 mcg (1,000 unit) capsule lubiprostone 24 mcg capsule 24 mcg PO DAILY #90 cap 04/24/19 12/14/19 docusate sodium [Colace] 100 mg PO BID #90 cap 04/28/19 12/14/19 apixaban 5 mg tablet 5 mg PO BID #180 tab 06/26/19 12/14/19 varicella-zoster gE-AS01B (PF) 50 0.5 ml IM ONCE #1 each 08/13/19 12/09/19 mcg/0.5 mL IM susp, kit fluoxetine 20 mg tablet 20 mg PO DAILY #90 tab-cap 09/16/19 12/14/19 hydroxyzine HCl 25 mg tablet 25 mg PO BID PRN #180 tab 10/15/19 12/14/19 sucralfate [Carafate] 5 ml PO TID #420 ml 10/18/19 12/14/19 budesonide-formoterol HFA 160 2 inh INHALATION BID #3 unit 12/03/19 12/14/19 mcg-4.5 mcg/actuation aerosol inhaler pantoprazole 40 mg tablet,delayed 40 mg PO DAILY #90 tab 12/03/19 12/14/19 release sennosides 8.6 mg-docusate sodium 1 tab PO BID #180 tab 12/03/19 12/14/19 50 mg tablet clonazepam 0.5 mg tablet 0.5 mg PO BID PRN #14 tab 12/09/19 12/14/19 Previous Rx's Medication Instructions Recorded Geeta Advantage kit 10/15/17 albuterol sulfate 2.5 mg INHALATION Q4H PRN PRN 30 10/15/17 Days ml tiotropium bromide 18 mcg capsule 1 cap INHALATION DAILY #90 inh 09/26/18 with inhalation device mirtazapine 15 mg tablet 15 mg PO HS #30 tab 12/12/18 albuterol sulfate 90 mcg/actuation 2 puff INHALATION Q4H PRN PRN #1 01/03/19 aerosol inhaler inh polyethylene glycol 3350 17 17 gm PO DAILY PRN #850 gm 01/11/19 gram/dose oral powder bisacodyl 10 mg rectal suppository 10 mg UT DAILY PRN #8 each 01/30/19 calcium carbonate 500 mg calcium 500 mg PO BID #180 tab 02/19/19 (1,250 mg) tablet cholecalciferol (vitamin D3) 25 1,000 unit PO DAILY #90 cap 02/19/19 mcg (1,000 unit) capsule lubiprostone 24 mcg capsule 24 mcg PO DAILY #90 cap 04/24/19 docusate sodium [Colace] 100 mg PO BID #90 cap 04/28/19 apixaban 5 mg tablet 5 mg PO BID #180 tab 06/26/19 varicella-zoster gE-AS01B (PF) 50 0.5 ml IM ONCE #1 each 08/13/19 mcg/0.5 mL IM susp, kit fluoxetine 20 mg tablet 20 mg PO DAILY #90 tab-cap 09/16/19 hydroxyzine HCl 25 mg tablet 25 mg PO BID PRN #180 tab 10/15/19 sucralfate [Carafate] 5 ml PO TID #420 ml 10/18/19 budesonide-formoterol HFA 160 2 inh INHALATION BID #3 unit 12/03/19 mcg-4.5 mcg/actuation aerosol inhaler pantoprazole 40 mg tablet,delayed 40 mg PO DAILY #90 tab 12/03/19 release sennosides 8.6 mg-docusate sodium 1 tab PO BID #180 tab 12/03/19 50 mg tablet clonazepam 0.5 mg tablet 0.5 mg PO BID PRN #14 tab 12/09/19 Allergies Allergy/AdvReac Type Severity Reaction Status Date / Time No Known Allergies Allergy Verified 12/13/19 13:52 General FLASH: 4 Review of Systems Constitutional Constitutional: Reports as per HPI and Denies headache(s) Eyes Eyes: Reports as per HPI, Denies eye discharge and Denies irritation ENT Ears, Nose, Mouth, and Throat: Reports as per HPI and Denies headache(s) Cardiovascular Cardiovascular: Reports as per HPI, Denies chest pain and Denies dyspnea Respiratory Respiratory: Reports as per HPI and Denies dyspnea Gastrointestinal Gastrointestinal: Reports as per HPI, Denies abdominal pain, Denies change in bowel habits, Denies nausea and Denies vomiting Integumentary/Breasts Skin/Breast: Reports as per HPI and Denies rash Neurologic Neurologic: Reports as per HPI and Denies headache(s) [facility] Medical History Adjustment disorder with anxiety (Chronic) Alcohol abuse (Chronic) Anxiety (Chronic) Dyspepsia (Chronic) Malignant neoplasm of right lung (Chronic) Tubular adenoma of colon (Inactive) Surgical History colonoscopy (Inactive 01/19/15) Also had a decompress colonoscopy with Dr Haresh Vásquez at [facility] on 06/09/18 for significant colon distention seen on CT scan, no prep done,therapeutic, diagnositc, still due for repeat on 01/19/25 History of lung biopsy (Resolved) History of surgery on upper extremity (Resolved) left Status post cataract extraction and insertion of intraocular lens of left eye (Chronic 11/05/18) Social History Smoking/Tobacco Use Status: Former Tobacco Use Quit Date: 06/05/98 Tobacco: How many years used: 30 Smokeless tobacco user: chewing tobacco Quit status: not considering quitting Alcohol Intake: former Drug use: Never Substance use type: does not use Details: Adopted: No Foster care: No Household members: other 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 Housing: apartment Number of Children: 0 Communication Needs: None Do you need help understanding health information?: Often current occupation: not working Current gender identity: male How often do you talk on the phone with friends or family?: three or more times per week Panel score (0-1 are the most socially isolated patients): 1 What type of physical activity do you participate in: none and other Details: started lifting weights Frequency: daily Seatbelt use: always Drive intox or ride w/intox cpr ambulance 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 Exam Const General: cooperative, healthy appearing, comfortable, no acute distress, well developed, well groomed and anxious Nutritional Appearance: average body habitus and well nourished Orientation: alert and awake [facility] Head: normal to inspection, normocephalic and atraumatic Ears: hearing grossly normal bilaterally, external ears normal and TM's normal bilaterally General nose exam: external nose normal and nares normal Face and sinus: normal facial exam, sinuses nontender and face symmetric Mouth: oral mucosae normal, lip normal, tongue normal, oropharynx normal and moist mucous membranes Teeth and gingiva: dentition normal Throat: uvula midline and abnormal tonsil bilaterally erythema and exudates; no hypertrophy Eyes General: appearance normal, both eyes and all related structures Neck Neck: normal visual inspection, full ROM, no lymphadenopathy, no meningeal signs, trachea midline, supple, no anterior neck swelling, no lymphadenopathy noted and no midline deformity Resp Effort & Inspection: normal respiratory effort, able to speak in complete sentences and no respiratory distress Auscultation: clear to auscultation bilaterally, no rales, no rhonchi and no wheezes Cardio Rate: regular rate Rhythm: regular rhythm Heart Sounds: S1 normal and S2 normal Skin General skin exam: no rashes or lesions noted Neuro General: patient alert and patient awake Cognition: normal cognition Speech: speech normal Gait: normal gait Psych Appearance: grossly normal and well kempt Mental Status: mental status grossly normal Speech and Movement: speech and movement normal
[2019-12-14 11:49] VITALS: BP 135/96; PULSE 86; RESP 20; TEMP 36.6; O2SAT 97
[2019-12-14 12:42] VITALS: BP 136/94; PULSE 68; RESP 16; O2SAT 97
== END 2019-12-14 12:40 | disposition home or self-care (01) ==
PROVIDERS: Emergency Provider Physician Assistant; PCP Internal Medicine
DX: J02.0 Streptococcal pharyngitis (principal); F41.9 Anxiety disorder, unspecified
CPT/HCPCS: 87880; 96372; 99284; 99283; J0561

== ENCOUNTER 2019-12-14 13:03 | Emergency (ER) | payer MEDICARE, MEDICAID, SELFPAY ==
[2019-12-14] VITALS (7 sets, daily range): BP systolic 135–146; BP diastolic 86–98; PULSE 68–90; RESP 9–30; TEMP 36.3; O2SAT 94–97
--- NOTE | 2019-12-14 13:00 | RT.EKG_ITS ---
APPROVED REPORT Exam: Resting ECG Patient Location: E HR:84 bpm ECG Measurements Heart Rate 84 AXIS FL 160 P 70 QRSd 72 QRS 13 QT 504 T 60 QTc 596 <Conclusion> Sinus rhythm...normal P axis, V-rate 60- 99 Prolonged QT interval...QTc >500mS EKG 13: 20 Dictated Rate 84, QT 504, QRS 72, FL 160, no evidence of STEMI, no significant abnormalities. No comparison f rom prior EKG on 12/12/2019
--- NOTE | 2019-12-14 13:28 | ED.GENADUL_ITS ---
Discharge Plan Disposition Patient Disposition: HOME Condition: Good Discharge Details Chief Complaint: SOB Clinical Impression: Adjustment disorder with anxiety, Encounter for medical screening examination Primary Care Provider: Deborah Chow ED Provider: Pedro Nichole Home Meds and New Rx's Prescriptions: Continued Spiriva with HandiHaler 18 mcg capsule, w/inhalation device 1 cap Inhalation DAILY Qty: 90 RF: 0 mirtazapine 15 mg tablet 15 mg PO HS Qty: 30 RF: 1 Hold Instructions: Home Medication placed on hold at Doctor's office albuterol sulfate [ProAir HFA] 90 mcg/actuation HFA aerosol inhaler 2 puff Inhalation Q4H PRN PRN (Reason: Shortness Of Breath) Qty: 1 RF: 5 polyethylene glycol 3350 [Miralax] 17 gram/dose powder 17 gm PO DAILY PRN (Reason: constipation) Qty: 850 RF: 12 bisacodyl 10 mg suppository 10 mg [place] DAILY PRN (Reason: constipation) Qty: 8 RF: 0 lubiprostone 24 mcg capsule 24 mcg PO DAILY Qty: 90 RF: 0 clonazepam [Klonopin] 0.5 mg tablet 0.5 mg PO BID PRN (Reason: anxiety) Qty: 14 RF: 0 Hold Instructions: Home Medication placed on hold at Doctor's office cholecalciferol (vitamin D3) 1,000 unit capsule 1,000 unit PO DAILY Qty: 90 RF: 3 calcium carbonate 500 mg calcium (1,250 mg) tablet 500 mg PO BID Qty: 180 RF: 3 Shingrix (PF) 50 mcg/0.5 mL suspension for reconstitution 0.5 ml IM ONCE Qty: 1 RF: 1 apixaban 5 mg tablet 5 mg PO BID Qty: 180 RF: 3 fluoxetine 20 mg tablet 20 mg PO DAILY Qty: 90 RF: 3 hydroxyzine HCl 25 mg tablet 25 mg PO BID PRN (Reason: anxiety) Qty: 180 RF: 2 budesonide-formoterol [Symbicort] 160-4.5 mcg/actuation HFA aerosol inhaler 2 inh Inhalation BID Qty: 3 RF: 3 pantoprazole 40 mg tablet,delayed release (DR/EC) 40 mg PO DAILY Qty: 90 RF: 3 sennosides-docusate sodium [Senna-Time S] 8.6-50 mg tablet 1 tab PO BID Qty: 180 RF: 3 (DME) [employer] Advantage 1 EACH spacer 1 ea Miscellaneous DIRECTED RF: 0 albuterol sulfate 2.5 MG/3 ML solution for nebulization 2.5 mg Inhalation Q4H PRN PRN (Reason: Shortness Of Breath) 30 Days RF: 0 docusate sodium [Colace] 100 mg capsule 100 mg PO BID Qty: 90 RF: 0 sucralfate [Carafate] 100 mg/mL suspension 5 ml PO TID Qty: 420 RF: 1 Discharge Instructions Additional Instructions: At this time there are no signs of airway compromise, swelling in the throat, or significant abnormalities causing your symptoms. I do feel that because of the mild sore throat from the strep throat that you have it is making it feel like it is more challenging to breathe. However with no other objective findings, and your oxygen saturations being perfect here, it is reasonable to go home at this time. If you notice any worsening of your symptoms, or any new symptoms such as vomiting, diarrhea, fever, chills, shortness of breath, chest pain, numbness, weakness, or fainting , please return immediately to the emergency department for reevaluation. Please follow up with your primary care provider as soon as possible for reassessment and reevaluation. As always, it was a plea sure participating in your medical care today. Referrals: Deborah Chow MD [Primary Care Provider] - Discharge Data Discharge Date/Time-TO BE ENTERED AT DEPARTURE: 12/14/19 13:44 Medical Decision Making 64-year-old male who presents today for evaluation of difficulty breathing. Is been seen and evaluated multiple times recently in the last week including negative cardiac work-up, recent imaging of the neck, and evaluation about an hour and a half ago where he was diagnosed with strep throat. Those ot her work-ups of otherwise been benign. Today after being discharged from the ED he turned around stating that he felt like he could not breathe. He denies any difficulty swallowing. He still does admit to some mild continued pain in his throat/sore throat. He denies any other new or change in symptoms. He denies coughing or gagging. He denies consistent symptoms. No other complaints at this time. No other modifying factors. Physical exam demonstrates mild erythema the posterior pharynx with mild tonsilloliths. No evidence of Daniel's angina, airway compromise peritonsillar abscess, periapical abscess, or other abnormalities. Lung exam shows no stridor, no wheeze, no abnormality to speak of at all. Screening EKG is unremarkable. Review of the patient's multiple recent work-ups including imaging show no significant abnormality. This time with stable vital signs, there is no current clinical indication for further imaging or evaluation or work-up. Patient is notably medically stable, with no evidence of emergent etiology at this time. Patient is able to tolerate p.o. well, he speaks in full and complete sentences, he shows no signs of respiratory distress, and his vital signs are notably reassuring. Patient will be discharged home. Recommend close follow-up with PCP. Recommend use of his albuterol inhaler. I have extensively reviewed the treatment plan and discharge instructions with the patient. I have addressed all patient concerns at this time. The patient was made aware of what symptoms to monitor for that would warrant a return to the emergency department. Discussed the plan with the patient, they demonstrate verbal understanding and agreement with our assessment and plan at this time. EKG 13: 20 Rate 84, QT 504, QRS 72, [place] 160, no evidence of STEMI, no significant abnormalities. No comparison from prior EKG on 12/12/2019 HPI General Date/Time Provider Initiated Documentation: 12/14/19 13:26 . HPI Narrative: 64-year-old male who presents today for evaluation of difficulty breathing. Is been seen and evaluated multiple times recently in the last week including negative cardiac work-up, recent imaging of the neck, and evaluation about an hour and a half ago where he was diagnosed with strep throat. Those other work-ups of otherwise been benign. Today after being discharged from the ED he turned around stating that he felt like he could not breathe. He denies any difficulty swallowing. He still does admit to some mild continued pain in his throat/sore throat. He denies any other new or change in symptoms. He denies coughing or gagging. He denies consistent symptoms. No other complaints at this time. No other modifying factors. Related Data Home Medications Medication Instructions Recorded Confirmed [employer] Advantage kit 10/15/17 12/13/19 albuterol sulfate 2.5 mg INHALATION Q4H PRN PRN 30 10/15/17 12/14/19 Days ml tiotropium bromide 18 mcg capsule 1 cap INHALATION DAILY #90 inh 09/26/18 12/14/19 with inhalation device mirtazapine 15 mg tablet 15 mg PO HS #30 tab 12/12/18 12/14/19 albuterol sulfate 90 mcg/actuation 2 puff INHALATION Q4H PRN PRN #1 01/03/19 12/14/19 aerosol inhaler inh polyethylene glycol 3350 17 17 gm PO DAILY PRN #850 gm 01/11/19 12/14/19 gram/dose oral powder bisacodyl 10 mg rectal suppository 10 mg [place] DAILY PRN #8 each 01/30/19 12/14/19 calcium carbonate 500 mg calcium 500 mg PO BID #180 tab 02/19/19 12/14/19 (1,250 mg) tablet cholecalciferol (vitamin D3) 25 1,000 unit PO DAILY #90 cap 02/19/19 12/14/19 mcg (1,000 unit) capsule lubiprostone 24 mcg capsule 24 mcg PO DAILY #90 cap 04/24/19 12/14/19 docusate sodium [Colace] 100 mg PO BID #90 cap 04/28/19 12/14/19 apixaban 5 mg tablet 5 mg PO BID #180 tab 06/26/19 12/14/19 varicella-zoster gE-AS01B (PF) 50 0.5 ml IM ONCE #1 each 08/13/19 12/09/19 mcg/0.5 mL IM susp, kit fluoxetine 20 mg tablet 20 mg PO DAILY #90 tab-cap 09/16/19 12/14/19 hydroxyzine HCl 25 mg tablet 25 mg PO BID PRN #180 tab 10/15/19 12/14/19 sucralfate [Carafate] 5 ml PO TID #420 ml 10/18/19 12/14/19 budesonide-formoterol HFA 160 2 inh INHALATION BID #3 unit 12/03/19 12/14/19 mcg-4.5 mcg/actuation aerosol inhaler pantoprazole 40 mg tablet,delayed 40 mg PO DAILY #90 tab 12/03/19 12/14/19 release sennosides 8.6 mg-docusate sodium 1 tab PO BID #180 tab 12/03/19 12/14/19 50 mg tablet clonazepam 0.5 mg tablet 0.5 mg PO BID PRN #14 tab 12/09/19 12/14/19 Previous Rx's Medication Instructions Recorded Annnancy Justin kit 10/15/17 albuterol sulfate 2.5 mg INHALATION Q4H PRN PRN 30 10/15/17 Days ml tiotropium bromide 18 mcg capsule 1 cap INHALATION DAILY #90 inh 09/26/18 with inhalation device mirtazapine 15 mg tablet 15 mg PO HS #30 tab 12/12/18 albuterol sulfate 90 mcg/actuation 2 puff INHALATION Q4H PRN PRN #1 01/03/19 aerosol inhaler inh polyethylene glycol 3350 17 17 gm PO DAILY PRN #850 gm 01/11/19 gram/dose oral powder bisacodyl 10 mg rectal suppository 10 mg [place] DAILY PRN #8 each 01/30/19 calcium carbonate 500 mg calcium 500 mg PO BID #180 tab 02/19/19 (1,250 mg) tablet cholecalciferol (vitamin D3) 25 1,000 unit PO DAILY #90 cap 02/19/19 mcg (1,000 unit) capsule lubiprostone 24 mcg capsule 24 mcg PO DAILY #90 cap 04/24/19 docusate sodium [Colace] 100 mg PO BID #90 cap 04/28/19 apixaban 5 mg tablet 5 mg PO BID #180 tab 06/26/19 varicella-zoster gE-AS01B (PF) 50 0.5 ml IM ONCE #1 each 08/13/19 mcg/0.5 mL IM susp, kit fluoxetine 20 mg tablet 20 mg PO DAILY #90 tab-cap 09/16/19 hydroxyzine HCl 25 mg tablet 25 mg PO BID PRN #180 tab 10/15/19 sucralfate [Carafate] 5 ml PO TID #420 ml 10/18/19 budesonide-formoterol HFA 160 2 inh INHALATION BID #3 unit 12/03/19 mcg-4.5 mcg/actuation aerosol inhaler pantoprazole 40 mg tablet,delayed 40 mg PO DAILY #90 tab 12/03/19 release sennosides 8.6 mg-docusate sodium 1 tab PO BID #180 tab 12/03/19 50 mg tablet clonazepam 0.5 mg tablet 0.5 mg PO BID PRN #14 tab 12/09/19 Allergies Allergy/AdvReac Type Severity Reaction Status Date / Time No Known Allergies Allergy Verified 12/13/19 13:52 General Stated Complaint: SOB FLASH: 3 Review of Systems All systems reviewed & are unremarkable except as noted in HPI and below PFSH Medical History Adjustment disorder with anxiety (Chronic) Alcohol abuse (Chronic) Anxiety (Chronic) Dyspepsia (Chronic) Malignant neoplasm of right lung (Chronic) Tubular adenoma of colon (Inactive) Surgical History colonoscopy (Inactive 01/19/15) Also had a decompress colonoscopy with Dr Haresh Vásquez at [facility] on 06/09/18 for significant colon distention seen on CT scan, no prep done,therapeutic, diagnositc, still due for repeat on 01/19/25 History of lung biopsy (Resolved) History of surgery on upper extremity (Resolved) left Status post cataract extraction and insertion of intraocular lens of left eye (Chronic 11/05/18) Family History Father Essential hypertension Hyperlipidemia Paternal Uncle Heart disease Stroke Cerebral hemorrhage Hypertension Brother Cancer head and neck cancer - smoker Social History Smoking/Tobacco Use Status: Former Tobacco Use Quit Date: 06/05/98 Tobacco: How many years used: 30 Smokeless tobacco user: chewing tobacco Quit status: not considering quitting Alcohol Intake: former Drug use: Never Substance use type: does not use Details: Adopted: No Foster care: No Household members: other Details: Acute Care Registered Nurse Care Provider 26/12 Housing: apartment Number of Children: 0 Communication Needs: None Do you need help understanding health information?: Often current occupation: not working Current gender identity: male How often do you talk on the phone with friends or family?: three or more times per week Panel score (0-1 are the most socially isolated patients): 1 What type of physical activity do you participate in: none and other Details: started lifting weights Frequency: daily Seatbelt use: always Drive intox or ride w/intox party bus 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 Exam Narrative Exam Narrative: 1.Const: Well-nourished, Well-developed, appearing stated age 2.Eyes: PERRL, no conjunctival injection, and symmetrical lids. 3.ENT: Atraumatic external nose and ears. Moist MM. Neck: Symmetric, trachea midline, No thyromegaly. Mild erythema in the posterior oropharynx, mild tonsillitis present. No significant tonsillar enlargement. No signs of airway compromise whatsoever, no evidence peritonsillar abscess whatsoever. Patient demonstrates good movement of cervical neck. There is no nuchal rigidity, no nuchal tenderness. Patient is able to flex the neck without any difficulty or significant pain. Negative Kernig's and Brudzinski sign. No evidence of neck swelling, or Daniel's angina. No evidence of periapical abscess. 4.CVS: +S1/S2, No murmurs or gallops. Peripheral pulses 2+ and equal in all extremities. Brisk capillary refill in all extremities. 5.RESP: Unlabored respiratory effort. Clear to auscultation bilaterally. No wheezes rales or rhonchi. No stridor whatsoever. No wheeze. 6.GI: Soft, Nontender/Nondistended, No hepatosplenomegaly. No guarding or rebound. 7.MSK: Normocephalic/Atraumatic, Extremities w/o deformity or ttp No cyanosis or clubbing, Normal movement of all extremities 8.Skin: Warm, Dry. No rashes or lesions. 9.Neuro: telescope repairer II-XII grossly intact. Sensation grossly intact, no focal neurologic deficits. 10.Psych: (AAO) x3. Appropriate mood and affect Course Vital Signs Vital signs: Vital Signs Temperature 36.3 C L 12/14/19 13:09 Pulse 70 12/14/19 13:09 Respiratory Rate 12 12/14/19 13:09 Blood Pressure 146/86 H 12/14/19 13:09 Pulse Oximetry 97 12/14/19 13:09 Temperature 36.3 C L 12/14/19 13:09 Temperature Source Skin 12/14/19 13:09 Pulse 70 12/14/19 13:09 Pulse 90 12/14/19 13:20 Respiratory Rate 30 H 12/14/19 13:20 Respiratory Effort 12/14/19 13:09 Blood Pressure 146/86 H 12/14/19 13:09 Blood Pressure Position Sitting 12/14/19 13:09 Pulse Oximetry 94 L 12/14/19 13:20 Oxygen Delivery Method Room Air 12/14/19 13:09 Oxygen Flow Rate 0 12/14/19 13:09
[2019-12-14] MEDS: Albuterol HFA 8 GM 60 PUFF INH IH (13:30)
== END 2019-12-14 13:44 | disposition home or self-care (01) ==
PROVIDERS: Emergency Provider Student in an Organized Health Care Education/Training Program; PCP Internal Medicine
DX: F43.22 Adjustment disorder with anxiety (principal); R06.02 Shortness of breath; J02.0 Streptococcal pharyngitis; F41.9 Anxiety disorder, unspecified; R42 Dizziness and giddiness; R07.9 Chest pain, unspecified; Z71.1 Person with feared health complaint in whom no diagnosis is made
CPT/HCPCS: 70491; 87880; 93005; 96372; 99283; 99284; 99285; 93010; J0561; J3490

== ENCOUNTER 2019-12-14 18:34 | Emergency (ER) | payer MEDICARE, MEDICAID, SELFPAY ==
--- NOTE | 2019-12-14 18:30 | DI.CT_ITS ---
EXAM: CT NECK W CLINICAL HISTORY: Diff swallowing and throat pain, r/o swelling/absc. TECHNIQUE: Imaging Protocol: Axial computed tomography images with coronal and sagittal reformatted images were created and reviewed CONTRAST MATERIAL: Intravenous: Omnipaque 350 Contrast volume:100 mL COMPARISON: CT CT NECK W from 11/13/2019 FINDINGS: Parotids/submandibular: Within normal limits. Thyroid gland: Within normal limits. Lymphadenopathy: There is scattered lymph nodes seen along the level one to level three all measurin g less than 8 mm in short axis diameter which are physiologic in nature. Carotids/Jugular: Within normal limits. Oropharynx: Stable right-sided tonsillith is noted. No enlarged tonsils are noted. Nasopharynx: Within normal limits. Retropharyngeal space: Within normal limits. Hypopharynx: Within normal limits. Larynx: Within normal limits. Bones: Degenerative changes are seen in the cervical spine particularly at the C5-C6 levels. Orbits and orbital soft tissues: Within normal limits. Visualized paranasal sinuses: Minimal mucosal thickening is seen in the right frontal sinus and a fe w right ethmoid air cells. No fluid levels are seen. Lung apices: There is a stable right upper lobe mass. Soft tissues: Within normal limits. IMPRESSION: 1. No acute abnormality is identified in the neck. 2. Stable right upper lobe mass. RADIATION DOSE DELIVERED: Total DLP Total DLP DATA REPOSITORY: All CT scans at this facility are submitted to the National Radiology Data Registry (NRDR) Dose Index Registry (DIR) with the [employer] ([employer]). RADIATION OPTIMIZATION: All CT scans at this facility use at least one of these dose optimization te chniques: automated exposure control; mA and/or kV adjustment per patient size (includes targeted exa ms where dose is matched to clinical indication); or iterative reconstruction.
--- NOTE | 2019-12-14 18:38 | W.ED.GENAD ---
Discharge Plan Disposition Patient Disposition: HOME Condition: Good Discharge Details Chief Complaint: Chest Pain Clinical Impression: Worried well Primary Care Provider: Deborah Chow ED Provider: Pedro Nichole Home Meds and New Rx's Prescriptions: Continued Spiriva with HandiHaler 18 mcg capsule, w/inhalation device 1 cap Inhalation DAILY Qty: 90 RF: 0 mirtazapine 15 mg tablet 15 mg PO HS Qty: 30 RF: 1 Hold Instructions: Home Medication placed on hold at Doctor's office albuterol sulfate [ProAir HFA] 90 mcg/actuation HFA aerosol inhaler 2 puff Inhalation Q4H PRN PRN (Reason: Shortness Of Breath) Qty: 1 RF: 5 polyethylene glycol 3350 [Miralax] 17 gram/dose powder 17 gm PO DAILY PRN (Reason: constipation) Qty: 850 RF: 12 bisacodyl 10 mg suppository 10 mg OK DAILY PRN (Reason: constipation) Qty: 8 RF: 0 lubiprostone 24 mcg capsule 24 mcg PO DAILY Qty: 90 RF: 0 clonazepam [Klonopin] 0.5 mg tablet 0.5 mg PO BID PRN (Reason: anxiety) Qty: 14 RF: 0 Hold Instructions: Home Medication placed on hold at Doctor's office cholecalciferol (vitamin D3) 1,000 unit capsule 1,000 unit PO DAILY Qty: 90 RF: 3 calcium carbonate 500 mg calcium (1,250 mg) tablet 500 mg PO BID Qty: 180 RF: 3 Shingrix (PF) 50 mcg/0.5 mL suspension for reconstitution 0.5 ml IM ONCE Qty: 1 RF: 1 apixaban 5 mg tablet 5 mg PO BID Qty: 180 RF: 3 fluoxetine 20 mg tablet 20 mg PO DAILY Qty: 90 RF: 3 hydroxyzine HCl 25 mg tablet 25 mg PO BID PRN (Reason: anxiety) Qty: 180 RF: 2 budesonide-formoterol [Symbicort] 160-4.5 mcg/actuation HFA aerosol inhaler 2 inh Inhalation BID Qty: 3 RF: 3 pantoprazole 40 mg tablet,delayed release (DR/EC) 40 mg PO DAILY Qty: 90 RF: 3 sennosides-docusate sodium [Senna-Time S] 8.6-50 mg tablet 1 tab PO BID Qty: 180 RF: 3 (DME) [employer] Advantage 1 EACH spacer 1 ea Miscellaneous DIRECTED RF: 0 albuterol sulfate 2.5 MG/3 ML solution for nebulization 2.5 mg Inhalation Q4H PRN PRN (Reason: Shortness Of Breath) 30 Days RF: 0 docusate sodium [Colace] 100 mg capsule 100 mg PO BID Qty: 90 RF: 0 sucralfate [Carafate] 100 mg/mL suspension 5 ml PO TID Qty: 420 RF: 1 Discharge Instructions Additional Instructions: At this time there is no evidence of pathology or life-threatening abnormality in her throat or neck. If you notice any worsening of your symptoms, or any new symptoms such as vomiting, diarrhea, fever, chills, shortness of breath, chest pain, numbness, weakness, or fainting , please return immediately to the emergency department for reevaluation. Please follow up with your primary care provider as soon as possible for reassessment and reevaluation. As always, it was a pleasure participating in your medical care today. Referrals: Deborah Chow MD [Primary Care Provider] - Medical Decision Making 64-year-old male well-known to the emergency department presents today for evaluation of difficulty swallowing. He was seen twice this morning once by myself and my colleague Angelica Liao. He was diagnosed with strep throat, screening EKG was negative, laboratory work-up and evaluation was otherwise unremarkable. Additionally he has had notable work-up of a soft tissue x-ray neck 2 days ago, negative chest x-ray, negative work-up also 2 days ago for similar symptoms. He states that his symptoms are still present and not improving. He was given penicillin IM here in the ED upon his last visit. He did call EMS today, with the current complaints, he was brought to the ER for further evaluation. Patient denies any other complaints at this time. No no chest pain no new shortness of breath no new vomiting, diarrhea, constipation or other complaints. No other complaints at this time. No other modifying factors. Physical exam demonstrates no significant abnormalities, no signs of Daniel's angina, peritonsillar abscess, or airway compromise. He is controlling secretions well, vital signs stable, no swelling or other abnormalities. Out of an abundance of precaution we will get a CT scan of the neck for further assessment, basic labs, monitor closely and reassess. With no no chest pain no new shortness of breath no current clinical indication for further work-up imaging or EKGs. EKG that was reviewed just a few hours ago and his last visit was also unremarkable. 7:[address] scan demonstrates no acute process. No evidence of airway compromise, mass in the throat or neck, or other acute process. His lung mass is stable. Patient has remained hemodynamically stable here in the ED, vital signs unremarkable. Symptoms inconsistent with angioedema, Daniel's angina, or airway compromise. Patient will be discharged home. I have extensively reviewed the treatment plan and discharge instructions with the patient. I have addressed all patient concerns at this time. The patient was made aware of what symptoms to monitor for that would warrant a return to the emergency department. Discussed the plan with the patient, they demonstrate verbal understanding and agreement with our assessment and plan at this time. FINDINGS: Orbits: Orbits are unremarkable. Sinuses: The visualized paranasal sinuses are clear. Nasopharynx: Unremarkable. Oropharynx: Right-sided tonsillith is again seen. No significant tonsillar enlargement. Hypopharynx: Unremarkable. Larynx: Unremarkable. Normal epiglottis. Retropharyngeal space: Unremarkable. Submandibular/Parotid glands: Unremarkable. Thyroid: Unremarkable. Lymph nodes: No pathologically enlarged lymph nodes. Trachea: Visualized trachea is unremarkable. Lungs: A masslike opacity within the right upper lobe is stable in appearance. Bones/joints: Moderate degenerative changes are seen in the lower cervical spine. No acute fracture. No destructive bone lesion. Vasculature: Major vessels are patent. Soft tissues: Unremarkable. No significant soft tissue swelling. IMPRESSION: 1. No acute abnormality identified. 2. Stable right upper lobe mass. Thank you for allowing us to participate in the care of your patient. Dictated and Authenticated by: Vivek Galindo MD 12/14/2019 7:26 PM Eastern Time ([place] & [place]) HPI General Date/Time Provider Initiated Documentation: 12/14/19 18:38. HPI Narrative: 64-year-old male well-known to the emergency department presents today for evaluation of difficulty swallowing. He was seen twice this morning once by myself and my colleague Angelica Liao. He was diagnosed with strep throat, screening EKG was negative, laboratory work-up and evaluation was otherwise unremarkable. Additionally he has had notable work-up of a soft tissue x-ray neck 2 days ago, negative chest x-ray, negative work-up also 2 days ago for similar symptoms. He states that his symptoms are still present and not improving. He was given penicillin IM here in the ED upon his last visit. He did call EMS today, with the current complaints, he was brought to the ER for further evaluation. Patient denies any other complaints at this time. No no chest pain no new shortness of breath no new vomiting, diarrhea, constipation or other complaints. No other complaints at this time. No other modifying factors. Related Data Home Medications Medication Instructions Recorded Confirmed [employer] Advantage kit 10/15/17 12/13/19 albuterol sulfate 2.5 mg INHALATION Q4H PRN PRN 30 10/15/17 12/14/19 Days ml tiotropium bromide 18 mcg capsule 1 cap INHALATION DAILY #90 inh 09/26/18 12/14/19 with inhalation device mirtazapine 15 mg tablet 15 mg PO HS #30 tab 12/12/18 12/14/19 albuterol sulfate 90 mcg/actuation 2 puff INHALATION Q4H PRN PRN #1 01/03/19 12/14/19 aerosol inhaler inh polyethylene glycol 3350 17 17 gm PO DAILY PRN #850 gm 01/11/19 12/14/19 gram/dose oral powder bisacodyl 10 mg rectal suppository 10 mg OK DAILY PRN #8 each 01/30/19 12/14/19 calcium carbonate 500 mg calcium 500 mg PO BID #180 tab 02/19/19 12/14/19 (1,250 mg) tablet cholecalciferol (vitamin D3) 25 1,000 unit PO DAILY #90 cap 02/19/19 12/14/19 mcg (1,000 unit) capsule lubiprostone 24 mcg capsule 24 mcg PO DAILY #90 cap 04/24/19 12/14/19 docusate sodium [Colace] 100 mg PO BID #90 cap 04/28/19 12/14/19 apixaban 5 mg tablet 5 mg PO BID #180 tab 06/26/19 12/14/19 varicella-zoster gE-AS01B (PF) 50 0.5 ml IM ONCE #1 each 08/13/19 12/09/19 mcg/0.5 mL IM susp, kit fluoxetine 20 mg tablet 20 mg PO DAILY #90 tab-cap 09/16/19 12/14/19 hydroxyzine HCl 25 mg tablet 25 mg PO BID PRN #180 tab 10/15/19 12/14/19 sucralfate [Carafate] 5 ml PO TID #420 ml 10/18/19 12/14/19 budesonide-formoterol HFA 160 2 inh INHALATION BID #3 unit 12/03/19 12/14/19 mcg-4.5 mcg/actuation aerosol inhaler pantoprazole 40 mg tablet,delayed 40 mg PO DAILY #90 tab 12/03/19 12/14/19 release sennosides 8.6 mg-docusate sodium 1 tab PO BID #180 tab 12/03/19 12/14/19 50 mg tablet clonazepam 0.5 mg tablet 0.5 mg PO BID PRN #14 tab 12/09/19 12/14/19 Previous Rx's Medication Instructions [facility]ed [facility] 10/15/17 albuterol sulfate 2.5 mg INHALATION Q4H PRN PRN 30 10/15/17 Days ml tiotropium bromide 18 mcg capsule 1 cap INHALATION DAILY #90 inh 09/26/18 with inhalation device mirtazapine 15 mg tablet 15 mg PO HS #30 tab 12/12/18 albuterol sulfate 90 mcg/actuation 2 puff INHALATION Q4H PRN PRN #1 01/03/19 aerosol inhaler inh polyethylene glycol 3350 17 17 gm PO DAILY PRN #850 gm 01/11/19 gram/dose oral powder bisacodyl 10 mg rectal suppository 10 mg OK DAILY PRN #8 each 01/30/19 calcium carbonate 500 mg calcium 500 mg PO BID #180 tab 02/19/19 (1,250 mg) tablet cholecalciferol (vitamin D3) 25 1,000 unit PO DAILY #90 cap 02/19/19 mcg (1,000 unit) capsule lubiprostone 24 mcg capsule 24 mcg PO DAILY #90 cap 04/24/19 docusate sodium [Colace] 100 mg PO BID #90 cap 04/28/19 apixaban 5 mg tablet 5 mg PO BID #180 tab 06/26/19 varicella-zoster gE-AS01B (PF) 50 0.5 ml IM ONCE #1 each 08/13/19 mcg/0.5 mL IM susp, kit fluoxetine 20 mg tablet 20 mg PO DAILY #90 tab-cap 09/16/19 hydroxyzine HCl 25 mg tablet 25 mg PO BID PRN #180 tab 10/15/19 sucralfate [Carafate] 5 ml PO TID #420 ml 10/18/19 budesonide-formoterol HFA 160 2 inh INHALATION BID #3 unit 12/03/19 mcg-4.5 mcg/actuation aerosol inhaler pantoprazole 40 mg tablet,delayed 40 mg PO DAILY #90 tab 12/03/19 release sennosides 8.6 mg-docusate sodium 1 tab PO BID #180 tab 12/03/19 50 mg tablet clonazepam 0.5 mg tablet 0.5 mg PO BID PRN #14 tab 12/09/19 Allergies Allergy/AdvReac Type Severity Reaction Status Date / Time No Known Allergies Allergy Verified 12/13/19 13:52 General FLASH: 3 Review of Systems All systems reviewed & are unremarkable except as noted in HPI and below [facility] Medical History Adjustment disorder with anxiety (Chronic) Alcohol abuse (Chronic) Anxiety (Chronic) Dyspepsia (Chronic) Malignant neoplasm of right lung (Chronic) Tubular adenoma of colon (Inactive) Surgical History colonoscopy (Inactive 01/19/15) Also had a decompress colonoscopy with Dr Haresh Vásquez at [facility] on 06/09/18 for significant colon distention seen on CT scan, no prep done,therapeutic, diagnositc, still due for repeat on 01/19/25 History of lung biopsy (Resolved) History of surgery on upper extremity (Resolved) left Status post cataract extraction and insertion of intraocular lens of left eye (Chronic 11/05/18) Family History Father Essential hypertension Hyperlipidemia Paternal Uncle Heart disease Stroke Cerebral hemorrhage Hypertension Brother Cancer head and neck cancer - smoker Social History Smoking/Tobacco Use Status: Former Tobacco Use Quit Date: 06/05/98 Tobacco: How many years used: 30 Smokeless tobacco user: chewing tobacco Quit status: not considering quitting Alcohol Intake: former Drug use: Never Substance use type: does not use Details: Adopted: No Foster care: No Household members: other 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 Housing: apartment Number of Children: 0 Communication Needs: None Do you need help understanding health information?: Often current occupation: not working Current gender identity: male How often do you talk on the phone with friends or family?: three or more times per week Panel score (0-1 are the most socially isolated patients): 1 What type of physical activity do you participate in: none and other Details: started lifting weights Frequency: daily Seatbelt use: always Drive intox or ride w/intox bicycle taxi 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 Exam Narrative Exam Narrative: 1.Const: Well-nourished, Well-developed, appearing stated age 2.Eyes: PERRL, no conjunctival injection, and symmetrical lids. 3.ENT: Atraumatic external nose and ears. Moist MM. Neck: Symmetric, trachea midline, No thyromegaly. Mild erythema in the posterior oropharynx, no tonsillar swelling, no peritonsillar abscess, no signs of Daniel's angina. Patient demonstrates good movement of cervical neck. There is no nuchal rigidity, no nuchal tenderness. Patient is able to flex the neck without any difficulty or significant pain. Negative Kernig's and Brudzinski sign. Patient able to control his secretions well. 4.CVS: +S1/S2, No murmurs or gallops. Peripheral pulses 2+ and equal in all extremities. Brisk capillary refill in all extremities. 5.RESP: Unlabored respiratory effort. Clear to auscultation bilaterally. No wheezes rales or rhonchi 6.GI: Soft, Nontender/Nondistended, No hepatosplenomegaly. No guarding or rebound. 7.MSK: Normocephalic/Atraumatic, Extremities w/o deformity or ttp No cyanosis or clubbing, Normal movement of all extremities 8.Skin: Warm, Dry. No rashes or lesions. 9.Neuro: automatic steel tie adjuster II-XII grossly intact. Sensation grossly intact, no focal neurologic deficits. 10.Psych: (AAO) x3. Appropriate mood and affect
[2019-12-14 18:39] VITALS: BP 143/96; PULSE 80; RESP 18; TEMP 36.7; O2SAT 94
[2019-12-14] MEDS: Omnipaque 350 MG/ML 100 ML BTL IJ (18:51)
--- NOTE | 2019-12-14 19:20 | NUR.NOTE ---
pt called nurse to report that he could not breathe . , of coarse , he was breathing . lungs sre clear skin is warm and dry. he is lying on the stretcher . Nursing Note:
--- NOTE | 2019-12-14 19:27 | DI.VRAD_ITS ---
PROCEDURE INFORMATION: Exam: CT Neck With Contrast Exam date and time: 12/14/2019 6:35 PM Age: 64 years old Clinical indication: Other: Diff swallowing and throat pain, R/O swelling, abscess TECHNIQUE: Imaging protocol: Computed tomography images of the neck with intravenous contrast. Radiation optimization: All CT scans at this facility use at least one of these dose optimization techniques: automated exposure control; mA and/or kV adjustment per patient size (includes targeted exams where dose is matched to clinical indication); or iterative reconstruction. Contrast material: OMNIPAQUE 350; Contrast volume: 100 ml; Contrast route: INTRAVENOUS (IV); COMPARISON: 1. CT NECK W 11/13/2019 2:56 PM 2. CR - XR SOFT TISSUE NECK 12/12/2019 7:47:05 PM 3. CR - XR CHEST 2V PA LATERAL 12/12/2019 7:45:42 PM FINDINGS: Orbits: Orbits are unremarkable. Sinuses: The visualized paranasal sinuses are clear. Nasopharynx: Unremarkable. Oropharynx: Right-sided tonsillith is again seen. No significant tonsillar enlargement. Hypopharynx: Unremarkable. Larynx: Unremarkable. Normal epiglottis. Retropharyngeal space: Unremarkable. Submandibular/Parotid glands: Unremarkable. Thyroid: Unremarkable. Lymph nodes: No pathologically enlarged lymph nodes. Trachea: Visualized trachea is unremarkable. Lungs: A masslike opacity within the right upper lobe is stable in appearance. Bones/joints: Moderate degenerative changes are seen in the lower cervical spine. No acute fracture. No destructive bone lesion. Vasculature: Major vessels are patent. Soft tissues: Unremarkable. No significant soft tissue swelling. IMPRESSION: 1. No acute abnormality identified. 2. Stable right upper lobe mass. Dictated and Authenticated by: Vivek Galindo MD. Ordering:ACITLIN Vasquez MD
== END 2019-12-14 19:50 | disposition home or self-care (01) ==
PROVIDERS: Emergency Provider Student in an Organized Health Care Education/Training Program; PCP Internal Medicine
DX: R42 Dizziness and giddiness (principal); R07.9 Chest pain, unspecified; Z71.1 Person with feared health complaint in whom no diagnosis is made
CPT/HCPCS: 70491; 99285; 99283; J3490

== ENCOUNTER 2019-12-15 11:15 | Emergency (ER) | payer MEDICARE, MEDICAID, SELFPAY ==
[2019-12-15 11:20] VITALS: BP 132/99; PULSE 93; RESP 20; TEMP 36.7; O2SAT 95
--- NOTE | 2019-12-15 11:24 | ED.GENADUL_ITS ---
Discharge Plan Disposition Patient Disposition: HOME Condition: Good Discharge Details Chief Complaint: GenMedical Clinical Impression: Worried well Primary Care Provider: Deborah Chow ED Provider: Angelica Majano Home Meds and New Rx's Prescriptions: Continued Spiriva with HandiHaler 18 mcg capsule, w/inhalation device 1 cap Inhalation DAILY Qty: 90 RF: 0 mirtazapine 15 mg tablet 15 mg PO HS Qty: 30 RF: 1 Hold Instructions: Home Medication placed on hold at Doctor's office albuterol sulfate [ProAir HFA] 90 mcg/actuation HFA aerosol inhaler 2 puff Inhalation Q4H PRN PRN (Reason: Shortness Of Breath) Qty: 1 RF: 5 polyethylene glycol 3350 [Miralax] 17 gram/dose powder 17 gm PO DAILY PRN (Reason: constipation) Qty: 850 RF: 12 bisacodyl 10 mg suppository 10 mg AK DAILY PRN (Reason: constipation) Qty: 8 RF: 0 lubiprostone 24 mcg capsule 24 mcg PO DAILY Qty: 90 RF: 0 clonazepam [Klonopin] 0.5 mg tablet 0.5 mg PO BID PRN (Reason: anxiety) Qty: 14 RF: 0 Hold Instructions: Home Medication placed on hold at Doctor's office cholecalciferol (vitamin D3) 1,000 unit capsule 1,000 unit PO DAILY Qty: 90 RF: 3 calcium carbonate 500 mg calcium (1,250 mg) tablet 500 mg PO BID Qty: 180 RF: 3 Shingrix (PF) 50 mcg/0.5 mL suspension for reconstitution 0.5 ml IM ONCE Qty: 1 RF: 1 apixaban 5 mg tablet 5 mg PO BID Qty: 180 RF: 3 fluoxetine 20 mg tablet 20 mg PO DAILY Qty: 90 RF: 3 hydroxyzine HCl 25 mg tablet 25 mg PO BID PRN (Reason: anxiety) Qty: 180 RF: 2 budesonide-formoterol [Symbicort] 160-4.5 mcg/actuation HFA aerosol inhaler 2 inh Inhalation BID Qty: 3 RF: 3 pantoprazole 40 mg tablet,delayed release (DR/EC) 40 mg PO DAILY Qty: 90 RF: 3 sennosides-docusate sodium [Senna-Time S] 8.6-50 mg tablet 1 tab PO BID Qty: 180 RF: 3 (DME) OptiChamber Advantage 1 EACH spacer 1 ea Miscellaneous DIRECTED RF: 0 albuterol sulfate 2.5 MG/3 ML solution for nebulization 2.5 mg Inhalation Q4H PRN PRN (Reason: Shortness Of Breath) 30 Days RF: 0 docusate sodium [Colace] 100 mg capsule 100 mg PO BID Qty: 90 RF: 0 sucralfate [Carafate] 100 mg/mL suspension 5 ml PO TID Qty: 420 RF: 1 Discharge Instructions Instructions: Anxiety (ED) Additional Instructions: We have had extensive evaluation over the past week without acute abnormality. All of these findings have been reassuring. The tonsils do appear to be going down in size do appear to be improving from yesterday. I am concerned, while you do have a sore throat from your improving streptococcal infection, much of your symptoms today anxiety. Would like for you to follow-up closely with your primary care. Please take your medications as prescribed. Your anxiety medicines that you do have prescribed as needed would help with your symptoms. Please encourage water intake. Frequent sips. Return with new/worsening symptoms. Referrals: Deborah Chow MD [Primary Care Provider] - Discharge Data Discharge Date/Time-TO BE ENTERED AT DEPARTURE: 12/15/19 13:09 Medical Decision Making Patient is a pleasant 64-year-old gentleman presenting today with the same complaint of shortness of breath, difficulty swallowing. Patient was diagnosed yesterday with Streptococcus pharyngitis. He was given dosing of IM penicillin. Patient was seen here a total of 3 times yesterday with the same complaint. Which time, patient is requesting IV Ativan. He reports he was given this last week for his shortness of breath and difficulty swallowing and had great success with this medication. He states that he has been taking his home medications and has been following the breathing plan set forth by respiratory therapy. He reports that this is not as successful as the IV Ativan. He reports this medication is given to him to help with the breathing. Patient states that he has had diminished appetite and p.o. intake secondary to his pain with swallowing. Has not had any fevers or chills. On exam, patient appears quite anxious. This appears to be at his baseline. His shortness of breath and difficulty swallowing seems to be very intermittent. For example, the patient is speaking in full sentences and appears to be no shortness of breath until I could listen to his lungs at which time he begins having very shallow and more rapid breathing. Again, this does appear to be very anxiety driven. His HEENT exam is significant for erythema and exudates at the bilateral tonsils. This does appear improved from yesterday's exam. Swelling is down and erythema has lessened. I did discuss with the patient that it can take time for symptoms to completely resolve. His lungs are clear. He otherwise appears to be at his baseline. Am concerned with the frequency with which the patient is coming in. Clearly, his anxiety is not well controlled. Patient is discussing inpatient therapy further and has plan to go to [facility] this coming upcoming week. However, as the patient has come in numerous times over the past week, I will speak with care management as well as [facility] regarding patient's frequent visit. He reports that he does have a laboratory animal caretaker has been helping him through this difficult time. Patient states that he does continue to live with his parents and has good social support at home. Spoke with Phu with [facility]. She does not know the patient well, is going to speak with coworker who is the patient's case worker and call back. Care management is also reviewing notes and will be in contact regarding plan. Spoke again with Phu, she had consulted with peers and reviewed histor. Last week, patient had been offered care bed inthe past but he had plans and had refused. He sounds to go back and forth requesting help then refusing when bed is available. RACIEL SHABAZZ and loss prevention manager both spoke with Iggy. RACIEL SHABAZZ noted that patient thought of harming himself but does not have a plan and reported, I just cant get my wind. He reported that he was SOB but she states that he did not sound SOB, was speaking in full sentences. I evaluated the patient again. In particular, questions thoughts of self-harm or thoughts of harming others. He reports he wants to get well. Does not have any suicidal plan. Does not have active suicidal ideation. He does voice frustration. He does admit that she has anxiety that manifests with physical symptoms. He reports that his family has advised him to not have inpatient care which is what prompted him to decline inpatient admission this past week. I did discuss with him that inpatient care would likely help to stabilize his anxiety. He will discuss this further with his primary care. Patient again requested IV Ativan. However, do not feel that this appropriate management at this point. Rather, I would like the patient to use his scheduled and prescribed medications. He is prescribed as needed clonazepam which she has not been using. Patient was given return precautions. He will follow-up with primary care this week. HPI General Mode of arrival: ambulatory . Date/Time Provider Initiated Documentation: 12/15/19 11:17 . Limitations to Documentation: no limitations . Information obtained by: patient and RN notes reviewed . History of Present Illness 64 year old M presents to the emergency department with the chief complaint of sore throat, difficulty breathing, described as severe and similar to prior episodes, Patient started experiencing this unknown and it has been intermittent. other things that improve symptom(s), (IV ativan) No exacerbating factors reported . Patient notes shortness of breath; denies chest pain, cough, diaphoresis, fever/chills, headaches, loss of appetite, nausea/vomiting, rash and weakness. Patient did receive the following treatments prior to arrival, none Related Data Home Medications Medication Instructions Recorded Confirmed pic5 Advantage kit 10/15/17 12/15/19 albuterol sulfate 2.5 mg INHALATION Q4H PRN PRN 30 10/15/17 12/15/19 Days ml tiotropium bromide 18 mcg capsule 1 cap INHALATION DAILY #90 inh 09/26/18 12/15/19 with inhalation device mirtazapine 15 mg tablet 15 mg PO HS #30 tab 12/12/18 12/15/19 albuterol sulfate 90 mcg/actuation 2 puff INHALATION Q4H PRN PRN #1 01/03/19 12/15/19 aerosol inhaler inh polyethylene glycol 3350 17 17 gm PO DAILY PRN #850 gm 01/11/19 12/15/19 gram/dose oral powder bisacodyl 10 mg rectal suppository 10 mg AK DAILY PRN #8 each 01/30/19 12/15/19 calcium carbonate 500 mg calcium 500 mg PO BID #180 tab 02/19/19 12/15/19 (1,250 mg) tablet cholecalciferol (vitamin D3) 25 1,000 unit PO DAILY #90 cap 02/19/19 12/15/19 mcg (1,000 unit) capsule lubiprostone 24 mcg capsule 24 mcg PO DAILY #90 cap 04/24/19 12/15/19 docusate sodium [Colace] 100 mg PO BID #90 cap 04/28/19 12/15/19 apixaban 5 mg tablet 5 mg PO BID #180 tab 06/26/19 12/15/19 varicella-zoster gE-AS01B (PF) 50 0.5 ml IM ONCE #1 each 08/13/19 12/15/19 mcg/0.5 mL IM susp, kit fluoxetine 20 mg tablet 20 mg PO DAILY #90 tab-cap 09/16/19 12/15/19 hydroxyzine HCl 25 mg tablet 25 mg PO BID PRN #180 tab 10/15/19 12/15/19 sucralfate [Carafate] 5 ml PO TID #420 ml 10/18/19 12/15/19 budesonide-formoterol HFA 160 2 inh INHALATION BID #3 unit 12/03/19 12/15/19 mcg-4.5 mcg/actuation aerosol inhaler pantoprazole 40 mg tablet,delayed 40 mg PO DAILY #90 tab 12/03/19 12/15/19 release sennosides 8.6 mg-docusate sodium 1 tab PO BID #180 tab 12/03/19 12/15/19 50 mg tablet clonazepam 0.5 mg tablet 0.5 mg PO BID PRN #14 tab 12/09/19 12/15/19 Previous Rx's Medication Instructions Recorded Geeta Advantage kit 10/15/17 albuterol sulfate 2.5 mg INHALATION Q4H PRN PRN 30 10/15/17 Days ml tiotropium bromide 18 mcg capsule 1 cap INHALATION DAILY #90 inh 09/26/18 with inhalation device mirtazapine 15 mg tablet 15 mg PO HS #30 tab 12/12/18 albuterol sulfate 90 mcg/actuation 2 puff INHALATION Q4H PRN PRN #1 01/03/19 aerosol inhaler inh polyethylene glycol 3350 17 17 gm PO DAILY PRN #850 gm 01/11/19 gram/dose oral powder bisacodyl 10 mg rectal suppository 10 mg AK DAILY PRN #8 each 01/30/19 calcium carbonate 500 mg calcium 500 mg PO BID #180 tab 02/19/19 (1,250 mg) tablet cholecalciferol (vitamin D3) 25 1,000 unit PO DAILY #90 cap 02/19/19 mcg (1,000 unit) capsule lubiprostone 24 mcg capsule 24 mcg PO DAILY #90 cap 04/24/19 docusate sodium [Colace] 100 mg PO BID #90 cap 04/28/19 apixaban 5 mg tablet 5 mg PO BID #180 tab 06/26/19 varicella-zoster gE-AS01B (PF) 50 0.5 ml IM ONCE #1 each 08/13/19 mcg/0.5 mL IM susp, kit fluoxetine 20 mg tablet 20 mg PO DAILY #90 tab-cap 09/16/19 hydroxyzine HCl 25 mg tablet 25 mg PO BID PRN #180 tab 10/15/19 sucralfate [Carafate] 5 ml PO TID #420 ml 10/18/19 budesonide-formoterol HFA 160 2 inh INHALATION BID #3 unit 12/03/19 mcg-4.5 mcg/actuation aerosol inhaler pantoprazole 40 mg tablet,delayed 40 mg PO DAILY #90 tab 12/03/19 release sennosides 8.6 mg-docusate sodium 1 tab PO BID #180 tab 12/03/19 50 mg tablet clonazepam 0.5 mg tablet 0.5 mg PO BID PRN #14 tab 12/09/19 Allergies Allergy/AdvReac Type Severity Reaction Status Date / Time No Known Allergies Allergy Verified 12/15/19 11:23 General Stated Complaint: GenMedical FLASH: 4 Review of Systems Constitutional Constitutional: Reports as per HPI, Denies chills, Denies fever(s) and Denies headache(s) Eyes Eyes: Reports as per HPI, Denies eye discharge and Denies irritation ENT Ears, Nose, Mouth, and Throat: Reports as per HPI and Denies headache(s) Cardiovascular Cardiovascular: Reports as per HPI, Denies chest pain, Reports dyspnea and Denies dyspnea on exertion Respiratory Respiratory: Reports as per HPI, Reports dyspnea and Denies dyspnea on exertion Gastrointestinal Gastrointestinal: Reports as per HPI, Denies abdominal pain, Denies change in bowel habits, Denies nausea and Denies vomiting Integumentary/Breasts Skin/Breast: Reports as per HPI and Denies rash Neurologic Neurologic: Reports as per HPI and Denies headache(s) [facility] Medical History Adjustment disorder with anxiety (Chronic) Alcohol abuse (Chronic) Anxiety (Chronic) Dyspepsia (Chronic) Malignant neoplasm of right lung (Chronic) Tubular adenoma of colon (Inactive) Surgical History colonoscopy (Inactive 01/19/15) Also had a decompress colonoscopy with Dr Haresh Vásquez at [facility] on 06/09/18 for significant colon distention seen on CT scan, no prep done,therapeutic, diagnositc, still due for repeat on 01/19/25 History of lung biopsy (Resolved) History of surgery on upper extremity (Resolved) left Status post cataract extraction and insertion of intraocular lens of left eye (Chronic 11/05/18) Social History Smoking/Tobacco Use Status: Former Tobacco Use Quit Date: 06/05/98 Tobacco: How many years used: 30 Smokeless tobacco user: chewing tobacco Quit status: not considering quitting Alcohol Intake: former Drug use: Never Substance use type: does not use Details: Adopted: No Foster care: No Household members: other Details: [employer] Care Provider 26/12 Housing: apartment Number of Children: 0 Communication Needs: None Do you need help understanding health information?: Often current occupation: not working Current gender identity: male How often do you talk on the phone with friends or family?: three or more times per week Panel score (0-1 are the most socially isolated patients): 1 What type of physical activity do you participate in: none and other Details: started lifting weights Frequency: daily Seatbelt use: always Drive intox 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 Exam Const General: cooperative, comfortable, no acute distress, well developed, well groomed and anxious Nutritional Appearance: average body habitus and well nourished Orientation: alert and awake HENOH Head: normal to inspection, normocephalic and atraumatic Ears: hearing grossly normal bilaterally, external ears normal and TM's normal bilaterally General nose exam: external nose normal and nares normal Face and sinus: normal facial exam, sinuses nontender and face symmetric Mouth: oral mucosae normal, lip normal, tongue normal, oropharynx normal and moist mucous membranes Teeth and gingiva: dentition normal Throat: uvula midline and abnormal tonsil bilaterally erythema and exudates Eyes General: appearance normal, both eyes and all related structures Neck Neck: normal visual inspection, full ROM, no lymphadenopathy and no meningeal signs Resp Effort & Inspection: normal respiratory effort, able to speak in complete sentences and no respiratory distress Auscultation: clear to auscultation bilaterally, no rales, no rhonchi and no wheezes Cardio Rate: regular rate Rhythm: regular rhythm Heart Sounds: S1 normal and S2 normal Skin General skin exam: no rashes or lesions noted Neuro General: patient alert and patient awake Cognition: normal cognition Speech: speech normal Gait: normal gait Psych Appearance: grossly normal and disheveled Mental Status: mental status grossly normal Speech and Movement: speech and movement normal Mood: irritable mood Affect: anxious affect Attitude: cooperative Thought Process: perseverating Thought Content: obsessions and phobias Insight: limited Judgment: limited Course Vital Signs Vital signs: Vital Signs Temperature 36.7 C 12/15/19 11:20 Pulse 93 H 12/15/19 11:20 Respiratory Rate 12/15/19 11:20 Blood Pressure 132/99 H 12/15/19 11:20 Pulse Oximetry 95 12/15/19 11:20 Temperature 36.7 C 12/15/19 11:20 Temperature Source Temporal Artery Scan 12/15/19 11:20 Pulse 93 H 12/15/19 11:20 Respiratory Rate 12/15/19 11:20 Blood Pressure 132/99 H 12/15/19 11:20 Blood Pressure Position Sitting 12/15/19 11:20 Pulse Oximetry 95 12/15/19 11:20 Oxygen Delivery Method Room Air 12/15/19 11:20 Oxygen Flow Rate 0 12/15/19 11:20
[2019-12-15 11:26] VITALS: RESP 16
--- NOTE | 2019-12-15 12:41 | CMPROGNOTE_ITS ---
- If Service Date Differs Date of service: 12/15/19 Time of Service: 12:41 Care Management Progress Note S/O: CM met with Iggy at the request of the ED provider. Iggy has been coming to the ED with even greater frequency in the past few days. He has been seen in the ED eleven times in the past week, several times a day on some occasions. He stated to CM that he can't breathe. According to a previous note, Iggy told staff that he was scheduled to see a specialist at [facility] on of this past week. When asked by CM about this he stated that he had gone for the appointment and was told that he has throat cancer. When asked about the treatment plan he stated that he is going to start chemotherapy at [facility] next . This has not been confirmed. Iggy has had multiple investigations performed at [facility] and none of them have revealed any throat lesions or significant abnormalities. The most recent test was a CT of the neck done yesterday. The Clinical Coordinator at Iggy's PCP practice has been working with Iggy, trying to decrease his ED visits and use of emergency services. Her most recent note indicates that a referral has been sent to [facility] in [place] but no beds were available last week. CM reached out to Phu in Crisis at [facility] and her plan was to follow up with [facility] to determine if there is/will be bed availability for Iggy in the near future. She will also perform as assessment today through Zoom. P: A referral has been sent to [facility] for Iggy to be admitted to address his anxiety.
== END 2019-12-15 13:09 | disposition home or self-care (01) ==
PROVIDERS: Emergency Provider Physician Assistant; PCP Internal Medicine
DX: R00.0 Tachycardia, unspecified (principal); Z71.1 Person with feared health complaint in whom no diagnosis is made
CPT/HCPCS: 99282

== ENCOUNTER 2019-12-20 08:24 | Outpatient (CLI) | payer MEDICARE, MEDICAID, SELFPAY ==
[2019-12-20 21:06] LABS: COVID-19 RT-PCR UVMMC Result Negative (Negative)
== END 2019-12-20 08:44 ==
PROVIDERS: PCP Internal Medicine; Visit Provider Internal Medicine
DX: Z03.818 Encounter for observation for suspected exposure to other biological agents ruled out (principal)
CPT/HCPCS: U0003

== ENCOUNTER 2019-12-28 13:04 | Emergency (ER) | payer MEDICARE, MEDICAID, SELFPAY ==
[2019-12-28 13:05] VITALS: BP 134/85; PULSE 84; RESP 18; TEMP 36.7; O2SAT 96
[2019-12-28 13:12] VITALS: RESP 18
--- NOTE | 2019-12-28 13:15 | RT.EKG_ITS ---
APPROVED REPORT Exam: Resting ECG Patient Location: E HR:64 bpm ECG Measurements Heart Rate 64 AXIS MN 159 P 62 QRSd 73 QRS 12 QT 411 T 46 QTc 424 <Conclusion> Sinus rhythm...normal P axis, V-rate 60- 99
--- NOTE | 2019-12-28 13:15 | DI.RAD_ITS ---
EXAM: XR CHEST 2V PA LATERAL CLINICAL HISTORY: SOB TECHNIQUE: 2D digital imaging was performed. COMPARISON: CR,XR XR CHEST 2V PA LATERAL from 12/03/2019 CR,XR XR CHEST 2V PA LATERAL from 12/12/2019 FINDINGS: MEDIASTINUM: Normal. HEART: Normal. PULMONARY VASCULATURE: Normal. LUNGS: The right upper lobe mass is stable in size. No consolidating infiltrates. The lungs are hyp erinflated consistent with underlying COPD. PLEURAL SPACE: No pleural effusion or pneumothorax. BONE:Within normal limits for the patient's age. OTHER FINDINGS:Normal. IMPRESSION: 1. No acute pulmonary findings. 2. Stable right upper lobe mass. DATA REPOSITORY: RADIATION DOSE DELIVERED:
--- NOTE | 2019-12-28 13:32 | ED.GENADUL_ITS ---
Discharge Plan Disposition Patient Disposition: HOME Condition: Stable Discharge Details Chief Complaint: GenMedical Clinical Impression: Chronic sore throat, Dyspepsia Primary Care Provider: Deborah Chow ED Provider: Janna Collins Home Meds and New Rx's Prescriptions: Continued Spiriva with HandiHaler 18 mcg capsule, w/inhalation device 1 cap Inhalation DAILY Qty: 90 RF: 0 mirtazapine 15 mg tablet 15 mg PO HS Qty: 30 RF: 1 Hold Instructions: Home Medication placed on hold at Doctor's office albuterol sulfate [ProAir HFA] 90 mcg/actuation HFA aerosol inhaler 2 puff Inhalation Q4H PRN PRN (Reason: Shortness Of Breath) Qty: 1 RF: 5 polyethylene glycol 3350 [Miralax] 17 gram/dose powder 17 gm PO DAILY PRN (Reason: constipation) Qty: 850 RF: 12 bisacodyl 10 mg suppository 10 mg UT DAILY PRN (Reason: constipation) Qty: 8 RF: 0 lubiprostone 24 mcg capsule 24 mcg PO DAILY Qty: 90 RF: 0 clonazepam [Klonopin] 0.5 mg tablet 0.5 mg PO BID PRN (Reason: anxiety) Qty: 14 RF: 0 Hold Instructions: Home Medication placed on hold at Doctor's office cholecalciferol (vitamin D3) 1,000 unit capsule 1,000 unit PO DAILY Qty: 90 RF: 3 calcium carbonate 500 mg calcium (1,250 mg) tablet 500 mg PO BID Qty: 180 RF: 3 Shingrix (PF) 50 mcg/0.5 mL suspension for reconstitution 0.5 ml IM ONCE Qty: 1 RF: 1 apixaban 5 mg tablet 5 mg PO BID Qty: 180 RF: 3 fluoxetine 20 mg tablet 20 mg PO DAILY Qty: 90 RF: 3 hydroxyzine HCl 25 mg tablet 25 mg PO BID PRN (Reason: anxiety) Qty: 180 RF: 2 budesonide-formoterol [Symbicort] 160-4.5 mcg/actuation HFA aerosol inhaler 2 inh Inhalation BID Qty: 3 RF: 3 pantoprazole 40 mg tablet,delayed release (DR/EC) 40 mg PO DAILY Qty: 90 RF: 3 sennosides-docusate sodium [Senna-Time S] 8.6-50 mg tablet 1 tab PO BID Qty: 180 RF: 3 (DME) OptiChamber Advantage 1 EACH spacer 1 ea Miscellaneous DIRECTED RF: 0 albuterol sulfate 2.5 MG/3 ML solution for nebulization 2.5 mg Inhalation Q4H PRN PRN (Reason: Shortness Of Breath) 30 Days RF: 0 docusate sodium [Colace] 100 mg capsule 100 mg PO BID Qty: 90 RF: 0 sucralfate [Carafate] 100 mg/mL suspension 5 ml PO TID Qty: 420 RF: 1 Discharge Instructions Instructions: Pharyngitis (ED), Chronic Dysphagia (DC) Additional Instructions: Follow-up with care management as previously instructed. Follow up with primary care provider in 3-5 days. Return to ED sooner if any worsening or concerns. Increase oral fluids. Take your home medications as previously prescribed. Referrals: Deborah Chow MD [Primary Care Provider] - Discharge Data Discharge Date/Time-TO BE ENTERED AT DEPARTURE: 12/28/19 15:02 Medical Decision Making 64-year-old male who is well-known to the department presents to the ER via EMS he is ambulatory upon initial exam walks into the department. He complains of throat pain and difficulty swallowing. Patient does have an extensive history of anxiety, does have a lung mass, chronic shortness of breath, dysphagia, does have a history of PE, and COPD. He was last seen in our department on the 14 December. He has been seen in the ER 9 times in the last month. He has had extensive visits and attempts to get patient help as an outpatient with care management patient is very noncompliant with follow-up for his oncology appointments and other additional community supports. There is a care manag ement note noted December 22 where patient was admitted to to [facility] which he declined going to the last minute. He denies any chest pain at this time does endorse some mild shortness of breath, with some coaching patient does have bilateral lungs clear to auscultation. He does have erythema throat with exudate noted on the right, tonsils are 1+ bilaterally uvula is midline. At this time rapid strep swab ordered, 10 mg Decadron p.o. ordered, 2 view chest x-ray, EKG and GI cocktail. EKG was reviewed by Dr. Alison Resendiz MD ER attending, please see her official reading. No significant change from previous EKGs. Upon patient reevaluation he does feel better. He is ambulatory in department and plan is to discharge patient home. Close follow-up with care management as previously attempted. HPI General Mode of arrival: ambulatory . Date/Time Provider Initiated Documentation: 12/28/19 13:12 . Limitations to Documentation: no limitations . Information obtained by: patient . HPI Narrative: 64-year-old male who is well- known to the department presents to the ER via EMS he is ambulatory upon initial exam walks into the department. He complains of throat pain and difficulty swallowing. Patient does have an extensive history of anxiety, does have a lung mass, chronic shortness of breath, dysphagia, does have a history of PE, and COPD. He was last seen in our department on the 14 December. He has been seen in the ER 9 times in the last month. He has had extensive visits and attempts to get patient help as an outpatient with care management patient is very noncompliant with follow-up for his oncology appointments and other additional community supports. There is a care management note noted December 22 where patient was admitted to to [facility] which he declined going to the last minute. He denies any chest pain at this time does endorse some mild shortness of breath, with some coaching patient does have bilateral lungs clear to auscultation. He does have erythema throat with exudate noted on the right, tonsils are 1+ bilaterally uvula is midline. Related Data Home Medications Medication Instructions Recorded Confirmed FlatStack Advantage kit 10/15/17 12/28/19 albuterol sulfate 2.5 mg INHALATION Q4H PRN PRN 30 10/15/17 12/28/19 Days ml tiotropium bromide 18 mcg capsule 1 cap INHALATION DAILY #90 inh 09/26/18 12/28/19 with inhalation device mirtazapine 15 mg tablet 15 mg PO HS #30 tab 12/12/18 12/28/19 albuterol sulfate 90 mcg/actuation 2 puff INHALATION Q4H PRN PRN #1 01/03/19 12/28/19 aerosol inhaler inh polyethylene glycol 3350 17 17 gm PO DAILY PRN #850 gm 01/11/19 12/28/19 gram/dose oral powder bisacodyl 10 mg rectal suppository 10 mg UT DAILY PRN #8 each 01/30/19 12/28/19 calcium carbonate 500 mg calcium 500 mg PO BID #180 tab 02/19/19 12/28/19 (1,250 mg) tablet cholecalciferol (vitamin D3) 25 1,000 unit PO DAILY #90 cap 02/19/19 12/28/19 mcg (1,000 unit) capsule lubiprostone 24 mcg capsule 24 mcg PO DAILY #90 cap 04/24/19 12/28/19 docusate sodium [Colace] 100 mg PO BID #90 cap 04/28/19 12/28/19 apixaban 5 mg tablet 5 mg PO BID #180 tab 06/26/19 12/28/19 varicella-zoster gE-AS01B (PF) 50 0.5 ml IM ONCE #1 each 08/13/19 12/15/19 mcg/0.5 mL IM susp, kit fluoxetine 20 mg tablet 20 mg PO DAILY #90 tab-cap 09/16/19 12/28/19 hydroxyzine HCl 25 mg tablet 25 mg PO BID PRN #180 tab 10/15/19 12/28/19 sucralfate [Carafate] 5 ml PO TID #420 ml 10/18/19 12/28/19 budesonide-formoterol HFA 160 2 inh INHALATION BID #3 unit 12/03/19 12/28/19 mcg-4.5 mcg/actuation aerosol inhaler pantoprazole 40 mg tablet,delayed 40 mg PO DAILY #90 tab 12/03/19 12/28/19 release sennosides 8.6 mg-docusate sodium 1 tab PO BID #180 tab 12/03/19 12/28/19 50 mg tablet clonazepam 0.5 mg tablet 0.5 mg PO BID PRN #14 tab 12/09/19 12/28/19 Previous Rx's Medication Instructions Recorded OptiChamber Advantage kit 10/15/17 albuterol sulfate 2.5 mg INHALATION Q4H PRN PRN 30 10/15/17 Days ml tiotropium bromide 18 mcg capsule 1 cap INHALATION DAILY #90 inh 09/26/18 with inhalation device mirtazapine 15 mg tablet 15 mg PO HS #30 tab 12/12/18 albuterol sulfate 90 mcg/actuation 2 puff INHALATION Q4H PRN PRN #1 01/03/19 aerosol inhaler inh polyethylene glycol 3350 17 17 gm PO DAILY PRN #850 gm 01/11/19 gram/dose oral powder bisacodyl 10 mg rectal suppository 10 mg UT DAILY PRN #8 each 01/30/19 calcium carbonate 500 mg calcium 500 mg PO BID #180 tab 02/19/19 (1,250 mg) tablet cholecalciferol (vitamin D3) 25 1,000 unit PO DAILY #90 cap 02/19/19 mcg (1,000 unit) capsule lubiprostone 24 mcg capsule 24 mcg PO DAILY #90 cap 04/24/19 docusate sodium [Colace] 100 mg PO BID #90 cap 04/28/19 apixaban 5 mg tablet 5 mg PO BID #180 tab 06/26/19 varicella-zoster gE-AS01B (PF) 50 0.5 ml IM ONCE #1 each 08/13/19 mcg/0.5 mL IM susp, kit fluoxetine 20 mg tablet 20 mg PO DAILY #90 tab-cap 09/16/19 hydroxyzine HCl 25 mg tablet 25 mg PO BID PRN #180 tab 10/15/19 sucralfate [Carafate] 5 ml PO TID #420 ml 10/18/19 budesonide-formoterol HFA 160 2 inh INHALATION BID #3 unit 12/03/19 mcg-4.5 mcg/actuation aerosol inhaler pantoprazole 40 mg tablet,delayed 40 mg PO DAILY #90 tab 12/03/19 release sennosides 8.6 mg-docusate sodium 1 tab PO BID #180 tab 12/03/19 50 mg tablet clonazepam 0.5 mg tablet 0.5 mg PO BID PRN #14 tab 12/09/19 Allergies Allergy/AdvReac Type Severity Reaction Status Date / Time No Known Allergies Allergy Verified 12/28/19 13:11 General Stated Complaint: GenMedical FLASH: 3 PFSH Social History Smoking/Tobacco Use Status: Former Tobacco Use Quit Date: 06/05/98 Tobacco: How many years used: 30 Smokeless tobacco user: chewing tobacco Quit status: not considering quitting Alcohol Intake: former Drug use: Never Substance use type: does not use Details: Adopted: No Foster care: No Household members: other Details: [employer] Care Provider 26/12 Housing: apartment Number of Children: 0 Communication Needs: None Do you need help understanding health information?: Often current occupation: not working Current gender identity: male How often do you talk on the phone with friends or family?: three or more times per week Panel score (0-1 are the most socially isolated patients): 1 What type of physical activity do you participate in: none and other Details: started lifting weights Frequency: daily Seatbelt use: always Drive intox 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 Course Vital Signs Vital signs: Vital Signs Temperature 36.7 C 12/28/19 13:05 Pulse 84 12/28/19 13:05 Respiratory Rate 18 12/28/19 13:05 Blood Pressure 134/85 12/28/19 13:05 Pulse Oximetry 96 12/28/19 13:05 Temperature 36.7 C 12/28/19 13:05 Temperature Source Temporal Artery Scan 12/28/19 13:05 Pulse 84 12/28/19 13:05 Respiratory Rate 18 12/28/19 13:12 Respiratory Effort Non-Labored 12/28/19 13:12 Respiratory Depth Normal 12/28/19 13:12 Respiratory Pattern Normal 12/28/19 13:12 Blood Pressure 134/85 12/28/19 13:05 Blood Pressure Position Sitting 12/28/19 13:05 Pulse Oximetry 96 12/28/19 13:05 Oxygen Delivery Method Room Air 12/28/19 13:05 Oxygen Flow Rate 0 12/28/19 13:05 Pain Level 10 12/28/19 13:05 Lab/Test Results Lab/Test Results: Laboratory Tests Range/Units 12/28/19 12/28/19 13:23 13:23 WBC Cancelled RBC Cancelled Hgb Cancelled Hct Cancelled MCV Cancelled MCH Cancelled MCHC Cancelled RDW Cancelled Plt Count Cancelled MPV Cancelled Immature Gran % Cancelled Neutrophils % Cancelled Band Neutrophils % Cancelled Lymphocytes % Cancelled Atypical Lymphs % Cancelled Monocytes % Cancelled Eosinophils % Cancelled Basophils % Cancelled Metamyelocytes % Cancelled Myelocytes % Cancelled Promyelocytes % Cancelled Absolute Neutrophils Cancelled Absolute Lymphocytes Cancelled Absolute Monocytes Cancelled Absolute Eosinophils Cancelled Absolute Basophils Cancelled Nucleated RBCs Cancelled Differential Comment Cancelled Other Cell Type Cancelled RBC Morphology Cancelled Polychromasia Cancelled Hypochromasia Cancelled Poikilocytosis Cancelled Basophilic Stippling Cancelled Anisocytosis Cancelled Microcytosis Cancelled Macrocytosis Cancelled Spherocytes Cancelled Target Cells Cancelled Tear Drop Cells Cancelled Ovalocytes Cancelled Stomatocytes Cancelled [place] Bodies Cancelled Manuel Cells Cancelled Acanthocytes (Spur) Cancelled Schistocytes Cancelled Sodium Cancelled Potassium Cancelled Chloride Cancelled Carbon Dioxide Cancelled Anion Gap Cancelled BUN Cancelled Creatinine Cancelled Estimated GFR/1.73 m2 Cancelled Glucose Cancelled Calcium Cancelled Total Bilirubin Cancelled AST Cancelled ALT Cancelled Alkaline Phosphatase Cancelled Troponin I Cancelled Total Protein Cancelled Albumin Cancelled
[2019-12-28] MEDS: Dexamethasone 4 MG/ML VIAL 10 MG PO (13:59)
[2019-12-28 15:01] VITALS: BP 134/85; PULSE 84; RESP 18; TEMP 36.7; O2SAT 96
--- NOTE | 2019-12-28 15:25 | DI.VRAD_ITS ---
PROCEDURE INFORMATION: Exam: XR Chest, 2 Views Exam date and time: 12/28/2019 2:29 PM Age: 64 years old Clinical indication: Other: SOB TECHNIQUE: Imaging protocol: XR of the chest Views: 2 views. COMPARISON: CR XR CHEST 2V PA LATERAL 12/12/2019 7:45 PM FINDINGS: No change in the approximate 4.3 cm density within the right upper lobe posteriorly the possibility of a mass still cannot be excluded. Please see the final report for details as to the local protocol for follow-up. No new consolidations or densities. Heart within normal limits. No evidence of pleural effusion. IMPRESSION: No significant change from the prior examination with right upper lobe density as described. Dictated and Authenticated by: Yovany Friedman MD. Ordering:ROLANDO Saldivar MD
== END 2019-12-28 15:02 | disposition home or self-care (01) ==
PROVIDERS: Emergency Provider Registered Nurse Emergency; PCP Internal Medicine
DX: R10.13 Epigastric pain (principal); J31.2 Chronic pharyngitis; J44.9 Chronic obstructive pulmonary disease, unspecified; Z87.891 Personal history of nicotine dependence
CPT/HCPCS: 80053; 87449; 87880; 93005; 99284; 71046; 84484; 85025; 87081; 93010; 99281; J1100

== ENCOUNTER 2020-01-25 13:41 | Emergency (ER) | payer MEDICARE, MEDICAID, SELFPAY ==
[2020-01-25 13:51] VITALS: BP 135/97; PULSE 98; RESP 17; TEMP 37.1; O2SAT 100
--- NOTE | 2020-01-25 14:51 | ED.GENADUL_ITS ---
Discharge Plan Disposition Patient Disposition: HOME Condition: Stable Discharge Details Chief Complaint: ThroatFB Clinical Impression: Anxiety, Mild shortness of breath Primary Care Provider: Deborah Chow ED Provider: Janna Collins Home Meds and New Rx's Prescriptions: Continued Spiriva with HandiHaler 18 mcg capsule, w/inhalation device 1 cap Inhalation DAILY Qty: 90 RF: 0 polyethylene glycol 3350 [Miralax] 17 gram/dose powder 17 gm PO DAILY PRN (Reason: constipation) Qty: 850 RF: 12 bisacodyl 10 mg suppository 10 mg MS DAILY PRN (Reason: constipation) Qty: 8 RF: 0 lubiprostone 24 mcg capsule 24 mcg PO DAILY Qty: 90 RF: 0 mirtazapine 30 mg tablet 30 mg PO QHS PRNRF: 0 cholecalciferol (vitamin D3) 1,000 unit capsule 1,000 unit PO DAILY Qty: 90 RF: 3 calcium carbonate 500 mg calcium (1,250 mg) tablet 500 mg PO BID Qty: 180 RF: 3 Shingrix (PF) 50 mcg/0.5 mL suspension for reconstitution 0.5 ml IM ONCE Qty: 1 RF: 1 apixaban 5 mg tablet 5 mg PO BID Qty: 180 RF: 3 fluoxetine 20 mg tablet 20 mg PO DAILY Qty: 90 RF: 3 hydroxyzine HCl 25 mg tablet 25 mg PO BID PRN (Reason: anxiety) Qty: 180 RF: 2 budesonide-formoterol [Symbicort] 160-4.5 mcg/actuation HFA aerosol inhaler 2 inh Inhalation BID Qty: 3 RF: 3 pantoprazole 40 mg tablet,delayed release (DR/EC) 40 mg PO DAILY Qty: 90 RF: 3 sennosides-docusate sodium [Senna-Time S] 8.6-50 mg tablet 1 tab PO BID Qty: 180 RF: 3 albuterol sulfate [ProAir HFA] 90 mcg/actuation HFA aerosol inhaler 2 puff Inhalation Q4H PRN PRN (Reason: Shortness Of Breath) Qty: 1 RF: 5 clonazepam 1 mg tablet 1 mg PO BID RF: 0 (DME) OptiChamber Advantage 1 EACH spacer 1 ea Miscellaneous DIRECTED RF: 0 albuterol sulfate 2.5 MG/3 ML solution for nebulization 2.5 mg Inhalation Q4H PRN PRN (Reason: Shortness Of Breath) 30 Days RF: 0 docusate sodium [Colace] 100 mg capsule 100 mg PO BID Qty: 90 RF: 0 sucralfate [Carafate] 100 mg/mL suspension 5 ml PO TID Qty: 420 RF: 1 Discharge Instructions Instructions: Dyspnea (ED), Anxiety (ED) Additional Instructions: Follow up with primary care provider in 3-5 days. Return to ED sooner if any worsening or concerns. Increase oral fluids. Return to care bed. Coming to the emergency room for nonemergent issues. Please take your medications as prescribed. Referrals: Deborah Chow MD [Primary Care Provider] - Discharge Data Discharge Date/Time-TO BE ENTERED AT DEPARTURE: 01/25/20 17:55 Medical Decision Making 64-year-old male who is well-known to the department presents to the ER via EMS with foreign body sensation in his throat. Patient states to me air is going in but it is not coming out patient has no evidence of respiratory distress, lungs are clear to auscultation bilaterally, no stridor. Patient is showing me his abdomen and states See all that? That is air. Patient states that he is at the care bed currently. He denies any nausea vomiting diarrhea or any other associated symptoms. He does have a history of alcohol use disorder which is in remission, lung neoplasm, pancreatitis, pulmonary embolism, anxiety, pharyngoesophageal dysphagia. 1508: Spoke with Vee at the care bed who states that patient has been there since . They have been attempting to give him his medications on a daily basis which patient has been difficult and noncompliant taking. Sometimes he spits them out. On initial exam there is no symptoms or patient's complaint. He has no stridor, no drooling, no abdominal distention. CR XR CHEST 2V PA LATERAL 12/28/2019 2:26 PM FINDINGS: Lungs: Right upper lobe medial opacity is unchanged from previous exam. It is appreciated on the lateral view posteriorly. Pleural space: Normal. No pneumothorax. Heart/Mediastinum: Normal. No cardiomegaly. Gastrointestinal tract: Normal. No bowel dilation. Intraperitoneal space: No free air. Bones/joints: Degenerative changes noted left hip. Mild levoscoliosis of the lumbar spine with lower lumbar spondylosis. Soft tissues: Normal. IMPRESSION: 1. Right upper lobe opacity unchanged, infiltrate versus mass. Follow-up recommended. 2. No acute change noted in the abdomen. Thank you for allowing us to participate in the care of your patient. Dictated and Authenticated by: Ekaterina Reyes MD Patient has remained hemodynamically stable throughout stay no evidence of respiratory distress or any acute problem at this time. Plan is to transport patient back to care bed via RCT. 1700: Patient reevaluation, patient states that he feels like his chest is going to come out of his chest, says breathing goes in but does not come out. Vital signs are stable, O2 sat is 100%. Patient encouraged that he is okay and that the plan is for him to be discharged back to the care bed. HPI General Mode of arrival: EMS . Date/Time Provider Initiated Documentation: 01/25/20 14:41 . Limitations to Documentation: no limitations . Information obtained by: patient . HPI Narrative: 64-year-old male who is well- known to the department presents to the ER via EMS with foreign body sensation in his throat. Patient states to me air is going in but it is not coming out patient has no evidence of respiratory distress, lungs are clear to auscultation bilaterally, no stridor. Patient is showing me his abdomen and states See all that? That is air. Patient states that he is at the care bed currently. He denies any nausea vomiting diarrhea or any other associated symptoms. He does have a history of alcohol use disorder which is in remission, lung neoplasm, pancreatitis, pulmonary embolism, anxiety, pharyngoesophageal dysphagia. Related Data Home Medications Medication Instructions Recorded Confirmed MyEveTab Advantage kit 10/15/17 01/25/20 albuterol sulfate 2.5 mg INHALATION Q4H PRN PRN 30 10/15/17 01/25/20 Days ml tiotropium bromide 18 mcg capsule 1 cap INHALATION DAILY #90 inh 09/26/18 01/25/20 with inhalation device polyethylene glycol 3350 17 17 gm PO DAILY PRN #850 gm 01/11/19 01/25/20 gram/dose oral powder bisacodyl 10 mg rectal suppository 10 mg MS DAILY PRN #8 each 01/30/19 01/25/20 calcium carbonate 500 mg calcium 500 mg PO BID #180 tab 02/19/19 01/25/20 (1,250 mg) tablet cholecalciferol (vitamin D3) 25 1,000 unit PO DAILY #90 cap 02/19/19 01/25/20 mcg (1,000 unit) capsule lubiprostone 24 mcg capsule 24 mcg PO DAILY #90 cap 04/24/19 01/25/20 docusate sodium [Colace] 100 mg PO BID #90 cap 04/28/19 01/25/20 apixaban 5 mg tablet 5 mg PO BID #180 tab 06/26/19 01/25/20 varicella-zoster gE-AS01B (PF) 50 0.5 ml IM ONCE #1 each 08/13/19 01/25/20 mcg/0.5 mL IM susp, kit fluoxetine 20 mg tablet 20 mg PO DAILY #90 tab-cap 09/16/19 01/25/20 hydroxyzine HCl 25 mg tablet 25 mg PO BID PRN #180 tab 10/15/19 01/25/20 sucralfate [Carafate] 5 ml PO TID #420 ml 10/18/19 01/25/20 budesonide-formoterol HFA 160 2 inh INHALATION BID #3 unit 12/03/19 01/25/20 mcg-4.5 mcg/actuation aerosol inhaler pantoprazole 40 mg tablet,delayed 40 mg PO DAILY #90 tab 12/03/19 01/25/20 release sennosides 8.6 mg-docusate sodium 1 tab PO BID #180 tab 12/03/19 01/25/20 50 mg tablet albuterol sulfate 90 mcg/actuation 2 puff INHALATION Q4H PRN PRN #1 12/31/19 01/25/20 aerosol inhaler inh mirtazapine 30 mg tablet 30 mg PO QHS PRN 12/31/19 01/25/20 clonazepam 1 mg tablet 1 mg PO BID 01/14/20 01/25/20 Previous Rx's Medication Instructions [facility]ed [facility] 10/15/17 albuterol sulfate 2.5 mg INHALATION Q4H PRN PRN 30 10/15/17 Days ml tiotropium bromide 18 mcg capsule 1 cap INHALATION DAILY #90 inh 09/26/18 with inhalation device polyethylene glycol 3350 17 17 gm PO DAILY PRN #850 gm 01/11/19 gram/dose oral powder bisacodyl 10 mg rectal suppository 10 mg MS DAILY PRN #8 each 01/30/19 calcium carbonate 500 mg calcium 500 mg PO BID #180 tab 02/19/19 (1,250 mg) tablet cholecalciferol (vitamin D3) 25 1,000 unit PO DAILY #90 cap 02/19/19 mcg (1,000 unit) capsule lubiprostone 24 mcg capsule 24 mcg PO DAILY #90 cap 04/24/19 docusate sodium [Colace] 100 mg PO BID #90 cap 04/28/19 apixaban 5 mg tablet 5 mg PO BID #180 tab 06/26/19 varicella-zoster gE-AS01B (PF) 50 0.5 ml IM ONCE #1 each 08/13/19 mcg/0.5 mL IM susp, kit fluoxetine 20 mg tablet 20 mg PO DAILY #90 tab-cap 09/16/19 hydroxyzine HCl 25 mg tablet 25 mg PO BID PRN #180 tab 10/15/19 sucralfate [Carafate] 5 ml PO TID #420 ml 10/18/19 budesonide-formoterol HFA 160 2 inh INHALATION BID #3 unit 12/03/19 mcg-4.5 mcg/actuation aerosol inhaler pantoprazole 40 mg tablet,delayed 40 mg PO DAILY #90 tab 12/03/19 release sennosides 8.6 mg-docusate sodium 1 tab PO BID #180 tab 12/03/19 50 mg tablet albuterol sulfate 90 mcg/actuation 2 puff INHALATION Q4H PRN PRN #1 12/31/19 aerosol inhaler inh Allergies Allergy/AdvReac Type Severity Reaction Status Date / Time No Known Allergies Allergy Verified 01/25/20 13:56 General Stated Complaint: ThroatFB FLASH: 3 Review of Systems Narrative: Constitutional: Alert and oriented, well groomed, thin body habitus, appears anxious HEENT: Denies trauma, headaches, blurry vision, nasal discharge. Chest: Denies chest pain, palpitations, irregular rhythm, hypertension. Respiratory: Denies cough, hemoptysis. Report's problems exhaling air. GI: Denies abdominal pain, nausea, vomiting, diarrhea, constipation. : Denies dysuria, hematuria, flank pain, rectal bleeding. Neuro: Denies dizziness, blurry vision, weakness, syncope, headache or facial numbness. Hematologic: Denies easy bruising, intolerance to heat or cold, hair loss. [facility] Medical History (Updated 01/25/20 @ 16:55 by Janna Collins) Adjustment disorder with anxiety (Chronic) Alcohol abuse (Chronic) Anxiety (Chronic) Dyspepsia (Chronic) Malignant neoplasm of right lung (Chronic) Tubular adenoma of colon (Inactive) Surgical History colonoscopy (Inactive 01/19/15) Also had a decompress colonoscopy with Dr Haresh Vásquez at [facility] on 06/09/18 for significant colon distention seen on CT scan, no prep done,therapeutic, diagnositc, still due for repeat on 01/19/25 History of lung biopsy (Resolved) History of surgery on upper extremity (Resolved) left Status post cataract extraction and insertion of intraocular lens of left eye (Chronic 11/05/18) Family History Father Essential hypertension Hyperlipidemia Paternal Uncle Heart disease Stroke Cerebral hemorrhage Hypertension Brother Cancer head and neck cancer - smoker Social History Smoking/Tobacco Use Status: Former Tobacco Use Quit Date: 06/05/98 Tobacco: How many years used: 30 Smokeless tobacco user: chewing tobacco Quit status: not considering quitting Alcohol Intake: former Drug use: Never Substance use type: does not use Details: Adopted: No Foster care: No Household members: other 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 Housing: apartment Number of Children: 0 Communication Needs: None Do you need help understanding health information?: Often current occupation: not working Current gender identity: male How often do you talk on the phone with friends or family?: three or more times per week Panel score (0-1 are the most socially isolated patients): 1 What type of physical activity do you participate in: none and other Details: started lifting weights Frequency: daily Seatbelt use: always Drive intox or ride w/intox trailer 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 Exam Narrative Exam Narrative: Constitutional: Alert and oriented x3. Appears stated age. Normal body habitus. Head: Normocephalic, no trauma. Eyes: Pupils PERRLA, Red reflex noted, EOM's intact. Eyelids symmetrical without lesions, discharge, or swelling. ENT: Bilateral TM's WNL, External ear normal to inspection, no mastoid TTP, swelling, or erythema, Nasal turbinates WNL, no nasal discharge. Normal dentition, Posterior pharynx WNL, no exudate. Chest: RRR, Normal S1, S2, distal pulses intact. Resp: Lungs clear to auscultation bilaterally, no wheezes, rales, or rhonchi. Musculoskeletal: Normal gait, 5/5 strength to all four extremities. Skin: No suspicious rashes or lesions. Capillary refill less than 2 sec. Neurologic: Cranial nerves II-XII intact. Alert and oriented x 3. DTR's intact. Hematologic/Lymphatic: No ecchymosis, no lymphadenopathy. Course Vital Signs Vital signs: Vital Signs Temperature 37.1 C 01/25/20 13:51 Pulse 98 H 01/25/20 13:51 Respiratory Rate 17 01/25/20 13:51 Blood Pressure 135/97 H 01/25/20 13:51 Pulse Oximetry 100 01/25/20 13:51 Temperature 37.1 C 01/25/20 13:51 Temperature Source Tympanic 01/25/20 13:51 Pulse 98 H 01/25/20 13:51 Respiratory Rate 17 01/25/20 13:51 Respiratory Effort 01/25/20 13:54 Blood Pressure 135/97 H 01/25/20 13:51 Blood Pressure Position Sitting 01/25/20 13:51 Pulse Oximetry 100 01/25/20 13:51 Oxygen Delivery Method Room Air 01/25/20 13:51 Oxygen Flow Rate 0 01/25/20 13:51
--- NOTE | 2020-01-25 16:32 | DI.RAD_ITS ---
EXAM: XR ABD FLAT UPRIGHT PA CHEST CLINICAL HISTORY: sob, abd bloating TECHNIQUE: COMPARISON: CR,XR XR CHEST 2V PA LATERAL from 12/03/2019 CR XR CHEST 2V PA LATERAL from 12/28/2019 FINDINGS: Previously described right upper lobe intrapulmonary mass seen on examination of December 27 is unchang ed on today's examination. Otherwise lungs are predominantly clear. No pleural effusion. Bowel gas pattern is unremarkable. No gross free intraperitoneal air seen. No gross organomegaly. IMPRESSION: No evidence of acute change. Persistent right upper lobe intrapulmonary mass. Chest CT recommended to follow-up this known mass if clinically indicated. RADIATION DOSE DELIVERED: Total DLP
--- NOTE | 2020-01-25 16:42 | DI.VRAD_ITS ---
PROCEDURE INFORMATION: Exam: XR Complete Acute Abdomen Series Exam date and time: 01/25/2020 4:17 PM Age: 64 years old Clinical indication: Other: SOB, abd bloating TECHNIQUE: Imaging protocol: XR complete acute abdomen series, including 2 or more views of the abdomen and a single view chest. COMPARISON: CR XR CHEST 2V PA LATERAL 12/28/2019 2:26 PM FINDINGS: Lungs: Right upper lobe medial opacity is unchanged from previous exam. It is appreciated on the lateral view posteriorly. Pleural space: Normal. No pneumothorax. Heart/Mediastinum: Normal. No cardiomegaly. Gastrointestinal tract: Normal. No bowel dilation. Intraperitoneal space: No free air. Bones/joints: Degenerative changes noted left hip. Mild levoscoliosis of the lumbar spine with lower lumbar spondylosis. Soft tissues: Normal. IMPRESSION: 1. Right upper lobe opacity unchanged, infiltrate versus mass. Follow-up recommended. 2. No acute change noted in the abdomen. Dictated and Authenticated by: Ekaterina Reyes MD. Ordering:ORLANDO Saldivar MD
[2020-01-25 17:25] VITALS: BP 124/94; PULSE 95; RESP 18; TEMP 36; O2SAT 100
== END 2020-01-25 17:55 | disposition home or self-care (01) ==
PROVIDERS: Emergency Provider Registered Nurse Emergency; PCP Internal Medicine
DX: R06.02 Shortness of breath (principal); F43.22 Adjustment disorder with anxiety; Z91.128 Patient's intentional underdosing of medication regimen for other reason
CPT/HCPCS: 99283; 74022

== ENCOUNTER 2020-01-28 00:05 | Outpatient (CLI) | payer MEDICARE, MEDICAID, SELFPAY ==
--- NOTE | 2020-01-28 | DI.CT_ITS ---
EXAM: CT CHEST WO CLINICAL HISTORY: H/O RUL LUNG CA,C34.11,SURVEILLANCE, COMPARE TO PREVIOUS TECHNIQUE: COMPARISON: CT CT CHEST WO from 08/24/2018 FINDINGS: CT examination of the chest was performed without contrast administration. Current examination is co mpared to previous examination of 08/24/2018. Right upper lobe mass is again noted, the configuratio n the mass has changed somewhat but overall there appears to be increase in size of the solid compone nt of the mass which now measures about 55 x 26 millimeters as compared to 46 x 20 millimeters on gloria or study. Streaky radiodensities extend to the superior aspect of the right hilum. No gross hilar a denopathy or central mediastinal adenopathy. No new intrapulmonary lesion. No pleural effusion or p leural-based mass. Images obtained through the upper abdomen show an incidental nonobstructing tiny right renal calculus and otherwise unremarkable appearance of visualized kidneys. No adrenal mass seen. Liver spleen an d pancreas appear intact by noncontrast criteria. IMPRESSION: Mild interval increase in size of right upper lobe mass which is more clearly defined than on previou s examination. No evidence of remote metastatic disease. No gross central mediastinal or hilar adenopathy. RADIATION DOSE DELIVERED: 360.32mGy.cm Total DLP
== END 2020-01-28 00:25 ==
PROVIDERS: PCP Internal Medicine; Visit Provider Nurse Practitioner
DX: C34.11 Malignant neoplasm of upper lobe, right bronchus or lung (principal)
CPT/HCPCS: 71250

== ENCOUNTER 2020-02-10 09:55 | Emergency (ER) | payer MEDICARE, MEDICAID, SELFPAY ==
[2020-02-10 10:01] VITALS: BP 129/75; PULSE 79; RESP 18; TEMP 36.3; O2SAT 98
[2020-02-10 10:08] VITALS: RESP 18
--- NOTE | 2020-02-10 10:41 | ED.GENADUL_ITS ---
Discharge Plan Disposition Patient Disposition: HOME Condition: Stable Discharge Details Chief Complaint: Anxiety Clinical Impression: Anxiety, Gas bloat syndrome Primary Care Provider: Deborah Chow ED Provider: Janna Collins Home Meds and New Rx's Prescriptions: Continued Spiriva with HandiHaler 18 mcg capsule, w/inhalation device 1 cap Inhalation DAILY Qty: 90 RF: 0 polyethylene glycol 3350 [Miralax] 17 gram/dose powder 17 gm PO DAILY PRN (Reason: constipation) Qty: 850 RF: 12 bisacodyl 10 mg suppository 10 mg UT DAILY PRN (Reason: constipation) Qty: 8 RF: 0 lubiprostone 24 mcg capsule 24 mcg PO DAILY Qty: 90 RF: 0 cholecalciferol (vitamin D3) 1,000 unit capsule 1,000 unit PO DAILY Qty: 90 RF: 3 calcium carbonate 500 mg calcium (1,250 mg) tablet 500 mg PO BID Qty: 180 RF: 3 Shingrix (PF) 50 mcg/0.5 mL suspension for reconstitution 0.5 ml IM ONCE Qty: 1 RF: 1 apixaban 5 mg tablet 5 mg PO BID Qty: 180 RF: 3 fluoxetine 20 mg tablet 20 mg PO DAILY Qty: 90 RF: 3 hydroxyzine HCl 25 mg tablet 25 mg PO BID PRN (Reason: anxiety) Qty: 180 RF: 2 budesonide-formoterol [Symbicort] 160-4.5 mcg/actuation HFA aerosol inhaler 2 inh Inhalation BID Qty: 3 RF: 3 pantoprazole 40 mg tablet,delayed release (DR/EC) 40 mg PO DAILY Qty: 90 RF: 3 sennosides-docusate sodium [Senna-Time S] 8.6-50 mg tablet 1 tab PO BID Qty: 180 RF: 3 albuterol sulfate [ProAir HFA] 90 mcg/actuation HFA aerosol inhaler 2 puff Inhalation Q4H PRN PRN (Reason: Shortness Of Breath) Qty: 1 RF: 5 clonazepam 1 mg tablet 1 mg PO BID RF: 0 mirtazapine 30 mg tablet 30 mg PO QHS RF: 0 (DME) [employer] Advantage 1 EACH spacer 1 ea Miscellaneous DIRECTED RF: 0 albuterol sulfate 2.5 MG/3 ML solution for nebulization 2.5 mg Inhalation Q4H PRN PRN (Reason: Shortness Of Breath) 30 Days RF: 0 docusate sodium [Colace] 100 mg capsule 100 mg PO BID Qty: 90 RF: 0 sucralfate [Carafate] 100 mg/mL suspension 5 ml PO TID Qty: 420 RF: 1 Discharge Instructions Instructions: Gas and Bloating (ED), Anxiety (ED) Additional Instructions: Follow up with primary care provider in 3-5 days. Return to ED sooner if any worsening or concerns. Increase oral fluids. Referrals: Deborah Chow MD [Primary Care Provider] - Discharge Data Discharge Date/Time-TO BE ENTERED AT DEPARTURE: 02/10/20 14:30 Medical Decision Making 64-year-old male who is well-known to the ER presents with vague complaints of abdominal bloating. States that he feels that his abdomen is getting pushed up into his chest. He states I do not want to . He is currently staying at a care bed comes here via EMS. He does report eating breakfast this morning taking his normal regular medications. He does have a history of anxiety, PE, hypocalcemia, abdominal pain, COPD, and a neoplasm of his right lung. former tobacco user D-dimer is elevated at 1216, CT chest PE protocol ordered. Patient was given a GI cocktail, chest abdomen x-ray ordered. Other labs are largely within normal limits. COMPARISON: CT CHEST WO 01/28/2020 1:27 PM FINDINGS: Pulmonary arteries: Normal. Contrast opacification is diagnostic. Aorta: Normal caliber and contrast opacification. Mild scattered aortosclerosis. Lungs: Dense, masslike consolidation subpleural posterior right upper lobe is unchanged. The patient has a history of known right upper lobe lung malignancy. This is associated with severe right upper lobe volume loss. Pleural space: Normal. Heart: Normal. Coronary arteries: Scattered LAD calcification. Lymph nodes: No axillary, mediastinal or hilar adenopathy. Bones/joints: Normal. Soft tissues: Normal. IMPRESSION: 1. Negative for pulmonary arterial embolism. 2. Chronic unchanged right upper lobe lung mass and consolidation. Discussed CT and lab results with patient, verbalized understanding. Differential diagnosis includes anxiety, abdominal gas, dyspepsia. HPI General Mode of arrival: EMS . Date/Time Provider Initiated Documentation: 02/10/20 10:00 . Limitations to Documentation: no limitations . Information obtained by: patient . HPI Narrative: 64-year-old male who is well- known to the ER presents with vague complaints of abdominal bloating. States that he feels that his abdomen is getting pushed up into his chest. He states I do not want to . He is currently staying at a care bed comes here via EMS. He does report eating breakfast this morning taking his normal regular medications. He does have a history of anxiety, PE, hypocalcemia, abdominal pain, COPD, and a neoplasm of his right lung. former tobacco user. Related Data Home Medications Medication Instructions Recorded Confirmed [facility] kit 10/15/17 01/30/20 albuterol sulfate 2.5 mg INHALATION Q4H PRN PRN 30 10/15/17 02/10/20 Days ml tiotropium bromide 18 mcg capsule 1 cap INHALATION DAILY #90 inh 09/26/18 02/10/20 with inhalation device polyethylene glycol 3350 17 17 gm PO DAILY PRN #850 gm 01/11/19 02/10/20 gram/dose oral powder bisacodyl 10 mg rectal suppository 10 mg UT DAILY PRN #8 each 01/30/19 02/10/20 calcium carbonate 500 mg calcium 500 mg PO BID #180 tab 02/19/19 02/10/20 (1,250 mg) tablet cholecalciferol (vitamin D3) 25 1,000 unit PO DAILY #90 cap 02/19/19 02/10/20 mcg (1,000 unit) capsule lubiprostone 24 mcg capsule 24 mcg PO DAILY #90 cap 04/24/19 02/10/20 docusate sodium [Colace] 100 mg PO BID #90 cap 04/28/19 02/10/20 apixaban 5 mg tablet 5 mg PO BID #180 tab 06/26/19 02/10/20 varicella-zoster gE-AS01B (PF) 50 0.5 ml IM ONCE #1 each 08/13/19 02/10/20 mcg/0.5 mL IM susp, kit fluoxetine 20 mg tablet 20 mg PO DAILY #90 tab-cap 09/16/19 02/10/20 hydroxyzine HCl 25 mg tablet 25 mg PO BID PRN #180 tab 10/15/19 02/10/20 sucralfate [Carafate] 5 ml PO TID #420 ml 10/18/19 02/10/20 budesonide-formoterol HFA 160 2 inh INHALATION BID #3 unit 12/03/19 02/10/20 mcg-4.5 mcg/actuation aerosol inhaler pantoprazole 40 mg tablet,delayed 40 mg PO DAILY #90 tab 12/03/19 02/10/20 release sennosides 8.6 mg-docusate sodium 1 tab PO BID #180 tab 12/03/19 02/10/20 50 mg tablet albuterol sulfate 90 mcg/actuation 2 puff INHALATION Q4H PRN PRN #1 12/31/19 02/10/20 aerosol inhaler inh clonazepam 1 mg tablet 1 mg PO BID 01/14/20 02/10/20 mirtazapine 30 mg tablet 30 mg PO QHS 02/07/20 02/10/20 Previous Rx's Medication Instructions Recorded [facility] kit 10/15/17 albuterol sulfate 2.5 mg INHALATION Q4H PRN PRN 30 10/15/17 Days ml tiotropium bromide 18 mcg capsule 1 cap INHALATION DAILY #90 inh 09/26/18 with inhalation device polyethylene glycol 3350 17 17 gm PO DAILY PRN #850 gm 01/11/19 gram/dose oral powder bisacodyl 10 mg rectal suppository 10 mg UT DAILY PRN #8 each 01/30/19 calcium carbonate 500 mg calcium 500 mg PO BID #180 tab 02/19/19 (1,250 mg) tablet cholecalciferol (vitamin D3) 25 1,000 unit PO DAILY #90 cap 02/19/19 mcg (1,000 unit) capsule lubiprostone 24 mcg capsule 24 mcg PO DAILY #90 cap 04/24/19 docusate sodium [Colace] 100 mg PO BID #90 cap 04/28/19 apixaban 5 mg tablet 5 mg PO BID #180 tab 06/26/19 varicella-zoster gE-AS01B (PF) 50 0.5 ml IM ONCE #1 each 08/13/19 mcg/0.5 mL IM susp, kit fluoxetine 20 mg tablet 20 mg PO DAILY #90 tab-cap 09/16/19 hydroxyzine HCl 25 mg tablet 25 mg PO BID PRN #180 tab 10/15/19 sucralfate [Carafate] 5 ml PO TID #420 ml 05/15/20 budesonide-formoterol HFA 160 2 inh INHALATION BID #3 unit 12/03/19 mcg-4.5 mcg/actuation aerosol inhaler pantoprazole 40 mg tablet,delayed 40 mg PO DAILY #90 tab 12/03/19 release sennosides 8.6 mg-docusate sodium 1 tab PO BID #180 tab 12/03/19 50 mg tablet albuterol sulfate 90 mcg/actuation 2 puff INHALATION Q4H PRN PRN #1 12/31/19 aerosol inhaler inh Allergies Allergy/AdvReac Type Severity Reaction Status Date / Time No Known Allergies Allergy Verified 02/10/20 10:04 General Stated Complaint: Anxiety FLASH: 3 Review of Systems Narrative: Constitutional: Negative for weight loss, alert and oriented, well groomed, normal body habitus, appears anxious HEENT: Denies trauma, headaches, blurry vision, nasal discharge, sore throat, trouble swallowing. Chest: Denies chest pain, palpitations, irregular rhythm, hypertension. Respiratory: Denies cough, hemoptysis. No chronic shortness of breath GI: Denies abdominal pain, nausea, vomiting, diarrhea, constipation. States his abdomen is full of air. : Denies dysuria, hematuria, flank pain, rectal bleeding. Neuro: Denies dizziness, blurry vision, weakness, syncope, headache or facial numbness. Hematologic: Denies easy bruising, intolerance to heat or cold, hair loss. [facility] Medical History (Updated 02/10/20 @ 13:46 by Janna Collins) Adjustment disorder with anxiety (Chronic) Alcohol abuse (Chronic) Anxiety (Chronic) Dyspepsia (Chronic) Malignant neoplasm of right lung (Chronic) Tubular adenoma of colon (Inactive) Surgical History colonoscopy (Inactive 01/19/15) Also had a decompress colonoscopy with Dr Haresh Vásquez at [facility] on 06/09/18 for significant colon distention seen on CT scan, no prep done,therapeutic, diagnositc, still due for repeat on 01/19/25 History of lung biopsy (Resolved) History of surgery on upper extremity (Resolved) left Status post cataract extraction and insertion of intraocular lens of left eye (Chronic 11/05/18) Family History Father Essential hypertension Hyperlipidemia Paternal Uncle Heart disease Stroke Cerebral hemorrhage Hypertension Brother Cancer head and neck cancer - smoker Social History Smoking/Tobacco Use Status: Former Tobacco Use Quit Date: 06/05/98 Tobacco: How many years used: 30 Smokeless tobacco user: chewing tobacco Quit status: not considering quitting Alcohol Intake: former Drug use: Never Substance use type: does not use Details: Adopted: No Foster care: No Household members: other Details: [employer] Care Provider 26/12 Housing: apartment Number of Children: 0 Communication Needs: None Do you need help understanding health information?: Often current occupation: not working Current gender identity: male How often do you talk on the phone with friends or family?: three or more times per week Panel score (0-1 are the most socially isolated patients): 1 What type of physical activity do you participate in: none and other Details: started lifting weights Frequency: daily Seatbelt use: always Drive intox or ride w/intox road train 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 Exam Narrative Exam Narrative: Constitutional: Alert and oriented x3. Appears stated age. Normal body habitus. Head: Normocephalic, no trauma. Eyes: Pupils PERRLA, Red reflex noted, EOM's intact. Eyelids symmetrical without lesions, discharge, or swelling. ENT: Bilateral TM's WNL, External ear normal to inspection, no mastoid TTP, swelling, or erythema, Nasal turbinates WNL, no nasal discharge. Normal dentition, Posterior pharynx WNL, no exudate. Chest: RRR, Normal S1, S2, distal pulses intact. Resp: Lungs clear to auscultation bilaterally, no wheezes, rales, or rhonchi. Musculoskeletal: Normal gait, 5/5 strength to all four extremities. Skin: No suspicious rashes or lesions. Capillary refill less than 2 sec. Neurologic: Cranial nerves II-XII intact. Alert and oriented x 3. DTR's intact. Hematologic/Lymphatic: No ecchymosis, no lymphadenopathy. Course Vital Signs Vital signs: Vital Signs Temperature 36.3 C L 02/10/20 10:01 Pulse 79 02/10/20 10:01 Respiratory Rate 18 02/10/20 10:01 Blood Pressure 129/75 02/10/20 10:01 Pulse Oximetry 98 02/10/20 10:01 Temperature 36.3 C L 02/10/20 10:01 Temperature Source Temporal Artery Scan 02/10/20 10:01 Pulse 79 02/10/20 10:01 Respiratory Rate 18 02/10/20 10:08 Respiratory Effort Non-Labored 02/10/20 10:08 Respiratory Depth Normal 02/10/20 10:08 Respiratory Pattern Normal 02/10/20 10:08 Blood Pressure 129/75 02/10/20 10:01 Blood Pressure Position Sitting 02/10/20 10:01 Pulse Oximetry 98 02/10/20 10:01 Oxygen Delivery Method Room Air 02/10/20 10:01 Oxygen Flow Rate 0 02/10/20 10:01
[2020-02-10] MEDS: Normal Saline 1,000 ML 125 ML IV (11:08)
[2020-02-10] MEDS: Normal Saline Flush 10 ML SYR IVP ×2 (11:08→12:37)
[2020-02-10 11:12] LABS: Abs Immature Grans 0.03 10^3/uL (0.0-0.06); Absolute Basophil Count 0.02 10^3/uL (0.0-0.2); Absolute Eosinophil Count 0.04 10^3/uL (0.0-0.7); Absolute Lymphocyte Count 0.99 10^3/uL (1.2-3.4); Absolute Monocyte Count 0.35 10^3/uL (0.1-0.8); Absolute Neutrophil Count 2.53 10^3/uL (1.2-6.7); Basophils % 0.5; HCT 43.5 % (40.0-50.0); HGB 14.2 g/dL (13.5-17.5); Immature Grans % 0.8; MCH 29.2 pg (27.0-33.0); MCHC 32.6 % (32.0-36.0); MCV 89.3 fL (80-95); MPV 9.8 fL (8.0-11.0); Monocytes % 8.8; Neutrophils % 63.9; Nucleated RBC 0 %; Platelet Count 260 10^3/uL (130-400); RBC 4.87 10^6/uL (4.36-5.78); RDW 13.6 % (11.8-14.1); RDW-SD 43.9 fL; WBC 3.96 10^3/uL (4.4-10.8)
[2020-02-10 11:23] LABS: Bilirubin Negative (Negative); Blood Negative (Negative); Clarity Clear (Clear); Glucose Negative (Negative); Ketones Negative (Negative); Leukocyte Esterase Negative (Negative); Nitrite Negative (Negative); Urobilinogen 0.2 EU/dL (Up TO 0.2); pH 7.5 (5-8)
[2020-02-10 11:25] LABS: ALT 30 U/L (16-63); AST 22 U/L (15-37); Albumin 3.2 g/dL (3.4-5.0); Alkaline Phosphatase 93 U/L (46-116); Anion Gap 5.1 mmol/L (3-11); BUN 7 mg/dL (7-18); Bilirubin, Total 0.4 mg/dL (0.2-1.0); CO2 30.9 mmol/L (21.0-32.0); CREATININE 0.99 mg/dL (0.70-1.30); Calcium 8.5 mg/dL (8.5-10.1); Chloride 106 mmol/L (98-107); Glucose 88 mg/dL (74-106); Magnesium 2.4 mg/dL (1.8-2.4); Sodium 142 mmol/L (136-145); Total Protein 6.9 g/dL (6.4-8.2)
--- NOTE | 2020-02-10 11:34 | DI.RAD_ITS ---
EXAM: XR ABD FLAT UPRIGHT PA CHEST CLINICAL HISTORY: Abdominal bloating TECHNIQUE: 2D digital imaging was performed. COMPARISON: CT CT CHEST WO from 01/28/2020 FINDINGS: Heart size is normal. The right upper lobe mass is again noted. There is no evidence of free air. There is no abnormal bowel distention or air-fluid levels. Scoliosis and degenerative changes are n oted in the spine. No radiopaque renal calculi are seen. Phleboliths are noted in the low pelvis. There are degenerative changes of the left hip. IMPRESSION: Right upper lobe mass. No acute abnormality in the abdomen.
--- NOTE | 2020-02-10 11:45 | DI.CT_ITS ---
EXAM: CT CHEST PE CTA CLINICAL HISTORY: SOB, Anxiety, hx of PE, elevated dimer. TECHNIQUE: Imaging Protocol: Axial CT angiography was performed with multi-slice acquisition and mu lti-planar and/or 3D reconstructions. CONTRAST MATERIAL: Intravenous: Omnipaque 350 Contrast volume:62 cc COMPARISON: CT CT CHEST/ABD/PEL W from 04/01/[address] CHEST WO from 01/28/2020 FINDINGS: Pulmonary Arteries: No evidence of filling defect to suggest pulmonary emboli. Tracheobronchial tree: Patent where visualized. Mediastinum and Aye: No dominant adenopathy or fluid collection. Pulmonary parenchyma: Stable right upper lobe mass. Right upper lobe volume loss.. Pleura: No effusion or pneumothorax. Heart: The heart is not dilated. Mild coronary artery calcifications are seen. Aorta: Thoracic aorta non-dilated. Upper abdomen: Unremarkable. Bones: Normal for age. Tubes, Catheters, and Lines: None IMPRESSION: No evidence of pulmonary embolism. Stable right upper lobe mass and volume loss.. RADIATION DOSE DELIVERED: Total DLP DATA REPOSITORY: All CT scans at this facility are submitted to the National Radiology Data Registry (NRDR) Dose Index Registry (DIR) with the [employer] (ACR). RADIATION OPTIMIZATION: All CT scans at this facility use at least one of these dose optimization te chniques: automated exposure control; mA and/or kV adjustment per patient size (includes targeted exa ms where dose is matched to clinical indication); or iterative reconstruction.
[2020-02-10 11:47] LABS: D-Dimer 1216 ng/mlFEU (<500)
--- NOTE | 2020-02-10 12:10 | DI.VRAD_ITS ---
PROCEDURE INFORMATION: Exam: XR Complete Acute Abdomen Series Exam date and time: 02/10/2020 11:19 AM Age: 64 years old Clinical indication: Pain; Other: Anxiety TECHNIQUE: Imaging protocol: XR complete acute abdomen series, including 2 or more views of the abdomen and a single view chest. COMPARISON: CT CHEST WO 01/28/2020 1:27 PM FINDINGS: Lungs: The lungs are normally expanded. Chronic right apical opacification and volume loss. Pleural space: Normal. No pneumothorax. Heart/Mediastinum: Normal. No cardiomegaly. Gastrointestinal tract: Normal bowel gas pattern. No uroliths. No organomegaly. Intraperitoneal space: No ascites. Vasculature: Numerous pelvic phleboliths. Bones/joints: Levoconvex mid lumbar spine curvature with disc space narrowing L4-L5 and L5-S1. Chronic crescentic calcification approaching left hip, likely from old injury. The left hip joint is narrowed and mildly sclerotic. IMPRESSION: 1. Masslike right upper lobe lung opacification. 2. No evident disease in the abdomen or pelvis. 3. Lumbar and left hip degenerative change. Dictated and Authenticated by: Dario Lawson MD. Ordering:ORLANDO Saldivar MD
[2020-02-10] MEDS: Omnipaque 350 MG/ML 100 ML BTL 62 ML IJ (12:57)
--- NOTE | 2020-02-10 13:21 | DI.VRAD_ITS ---
PROCEDURE INFORMATION: Exam: CT Angiography Chest With Contrast Exam date and time: 02/10/2020 11:54 AM Age: 64 years old Clinical indication: Chest pain TECHNIQUE: Imaging protocol: Computed tomographic angiography of the chest with intravenous contrast. 3D rendering (Not supervised by radiologist): MIP and/or 3D reconstructed images were created by the technologist. COMPARISON: CT CHEST WO 01/28/2020 1:27 PM FINDINGS: Pulmonary arteries: Normal. Contrast opacification is diagnostic. Aorta: Normal caliber and contrast opacification. Mild scattered aortosclerosis. Lungs: Dense, masslike consolidation subpleural posterior right upper lobe is unchanged. The patient has a history of known right upper lobe lung malignancy. This is associated with severe right upper lobe volume loss. Pleural space: Normal. Heart: Normal. Coronary arteries: Scattered LAD calcification. Lymph nodes: No axillary, mediastinal or hilar adenopathy. Bones/joints: Normal. Soft tissues: Normal. IMPRESSION: 1. Negative for pulmonary arterial embolism. 2. Chronic unchanged right upper lobe lung mass and consolidation. Dictated and Authenticated by: Dario Lawson MD. Ordering:ORLANDO Saldivar MD
[2020-02-10 13:48] VITALS: BP 140/94; PULSE 74; RESP 18; TEMP 36.2; O2SAT 100
== END 2020-02-10 14:30 | disposition home or self-care (01) ==
PROVIDERS: Emergency Provider Registered Nurse Emergency; PCP Internal Medicine
DX: F41.9 Anxiety disorder, unspecified (principal); R14.0 Abdominal distension (gaseous); J44.9 Chronic obstructive pulmonary disease, unspecified; Z87.891 Personal history of nicotine dependence
CPT/HCPCS: 71275; 80053; 99285; 74022; 81003; 83735; 85025; 85379; 99284; J3490

== ENCOUNTER 2020-02-11 18:03 | Emergency (ER) | payer MEDICARE, MEDICAID, SELFPAY ==
[2020-02-11 18:07] VITALS: BP 108/71; PULSE 82; RESP 16; TEMP 36.8; O2SAT 96
[2020-02-11 18:14] VITALS: RESP 16
--- NOTE | 2020-02-11 18:15 | RT.EKG_ITS ---
APPROVED REPORT Exam: Resting ECG Patient Location: E HR:77 bpm ECG Measurements Heart Rate 77 AXIS TX 167 P 57 QRSd 72 QRS 12 QT 372 T 44 QTc 422 Conclusion Sinus rhythm...normal P axis, V-rate 60- 99
--- NOTE | 2020-02-11 18:33 | W.ED.GENAD ---
Discharge Plan Disposition Patient Disposition: HOME Condition: Stable Discharge Details Chief Complaint: SOB Clinical Impression: Anxiety Primary Care Provider: Deborah Chow ED Provider: Angelica Majano Home Meds and New Rx's Prescriptions: Continued Spiriva with HandiHaler 18 mcg capsule, w/inhalation device 1 cap Inhalation DAILY Qty: 90 RF: 0 polyethylene glycol 3350 [Miralax] 17 gram/dose powder 17 gm PO DAILY PRN (Reason: constipation) Qty: 850 RF: 12 bisacodyl 10 mg suppository 10 mg CO DAILY PRN (Reason: constipation) Qty: 8 RF: 0 lubiprostone 24 mcg capsule 24 mcg PO DAILY Qty: 90 RF: 0 cholecalciferol (vitamin D3) 1,000 unit capsule 1,000 unit PO DAILY Qty: 90 RF: 3 calcium carbonate 500 mg calcium (1,250 mg) tablet 500 mg PO BID Qty: 180 RF: 3 Shingrix (PF) 50 mcg/0.5 mL suspension for reconstitution 0.5 ml IM ONCE Qty: 1 RF: 1 apixaban 5 mg tablet 5 mg PO BID Qty: 180 RF: 3 fluoxetine 20 mg tablet 20 mg PO DAILY Qty: 90 RF: 3 hydroxyzine HCl 25 mg tablet 25 mg PO BID PRN (Reason: anxiety) Qty: 180 RF: 2 budesonide-formoterol [Symbicort] 160-4.5 mcg/actuation HFA aerosol inhaler 2 inh Inhalation BID Qty: 3 RF: 3 pantoprazole 40 mg tablet,delayed release (DR/EC) 40 mg PO DAILY Qty: 90 RF: 3 sennosides-docusate sodium [Senna-Time S] 8.6-50 mg tablet 1 tab PO BID Qty: 180 RF: 3 albuterol sulfate [ProAir HFA] 90 mcg/actuation HFA aerosol inhaler 2 puff Inhalation Q4H PRN PRN (Reason: Shortness Of Breath) Qty: 1 RF: 5 clonazepam 1 mg tablet 1 mg PO BID RF: 0 mirtazapine 30 mg tablet 30 mg PO QHS RF: 0 sucralfate [Carafate] 100 mg/mL suspension 5 ml PO TID Qty: 420 RF: 3 (DME) [employer] Advantage 1 EACH spacer 1 ea Miscellaneous DIRECTED RF: 0 albuterol sulfate 2.5 MG/3 ML solution for nebulization 2.5 mg Inhalation Q4H PRN PRN (Reason: Shortness Of Breath) 30 Days RF: 0 docusate sodium [Colace] 100 mg capsule 100 mg PO BID Qty: 90 RF: 0 Discharge Instructions Instructions: Anxiety (ED) Additional Instructions: Your vital signs are very reassuring, your extensive workup yesterday was reassuring. Your EKG looked normal today. Your exam is reassuring but most consistent with anxiety as you demonstrate breath holding. Try to breath normally, encourage hydration, encourage anxiety reducing techniques. If you develop new/worsening symptoms please seek care urgently once again. Please follow up closely with [facility] care. Referrals: Deborah Chow MD [Primary Care Provider] - Medical Decision Making Patient is a pleasant 64-year-old male presents today with by EMS with chief complaint shortness of breath. Patient was here yesterday for the same complaint. He is denying any chest pain, no abdominal pain. Reports I cannot get my air in. Patient was found to be anxious by EMS vital signs within normal limits. Patient does seem to manifest as anxiety primarily as respiratory or abdominal complaints. Past medical history is pertinent for anxiety, embolism, cognitive impairment, COPD. He is currently residing at the care bed. He reports that he did color his mouth to appear cyanotic. He is now reporting to me that he was just eating with ice cream and a large amount of It got around his face. He is denying chest pain or abdominal pain. No change in bowel or bladder habits. Patient had a CT for PE protocol yesterday as well as laboratory evaluation without any significant abnormalities. On exam, patient appears to be at his baseline. He appears to be intermittently holding his breath. When he wants to express something his breathing returns to baseline he is able to speak in complete sentences. However, when I go to examine his lungs he begins selectively breath-holding. He has normal cardiac exam. He is abdominal exam. 2+ distal pulses in all extremities and no calf tenderness. Exhibiting large amount of anxiety. EKG was reviewed by Dr. Chen with no evidence to acute abnormality noted. Discussed these findings as well as the findings from yesterday's work-up and physical exam findings today, with the patient at length. I feel that continued evaluation and repeat imaging may be doing greater harm than risk at this time. His vital signs, exam and history are all suggestive of continued anxiety in a patient with known history of this. He had an extensive work-up yesterday and I do not feel that further evaluation is warranted today. Patient is residing in a care bed which is a safe place where he will be monitored. He will return with any new or worsening symptoms. Encourage close follow-up with primary care. Encouraged anxiety lytic techniques. All his questions and concerns were addressed. HPI General Mode of arrival: EMS. Date/Time Provider Initiated Documentation: 02/11/20 18:15. Limitations to Documentation: no limitations. Information obtained by: patient, RN/MD (care bed staff called ahead), EMS, RN notes reviewed and old records reviewed. HPI Narrative: The patient is a pleasant 64-year-old male, well-known to myself in the department, presenting once again for shortness of breath. He denies any chest pain. Was seen here yesterday at which time patient underwent CT for PE protocol which is negative as well as laboratory evaluation. Patient does have history of significant anxiety and has been seen her multiple times for the same complaint. Per the care bed and EMS, patient was morning to come up the length of the date for evaluation but had appeared to be at his baseline. They advised that as he appeared to be normal, had extensive work-up yesterday, he did not need EMS transfer. However, the patient then went and got blue ice cream which he rubbed on his lips to show cyanosis. As his anxiety continued to escalate, they did contact EMS for transport. He is not endorsing abdominal pain at this time. He has not worsening cough, fevers or chills. Related Data Home Medications Medication Instructions Recorded Confirmed [facility] Advantage kit 10/15/17 02/11/20 albuterol sulfate 2.5 mg INHALATION Q4H PRN PRN 30 10/15/17 02/11/20 Days ml tiotropium bromide 18 mcg capsule 1 cap INHALATION DAILY #90 inh 09/26/18 02/11/20 with inhalation device polyethylene glycol 3350 17 17 gm PO DAILY PRN #850 gm 01/11/19 02/11/20 gram/dose oral powder bisacodyl 10 mg rectal suppository 10 mg CO DAILY PRN #8 each 01/30/19 02/11/20 calcium carbonate 500 mg calcium 500 mg PO BID #180 tab 02/19/19 02/11/20 (1,250 mg) tablet cholecalciferol (vitamin D3) 25 1,000 unit PO DAILY #90 cap 02/19/19 02/11/20 mcg (1,000 unit) capsule lubiprostone 24 mcg capsule 24 mcg PO DAILY #90 cap 04/24/19 02/11/20 docusate sodium [Colace] 100 mg PO BID #90 cap 04/28/19 02/11/20 apixaban 5 mg tablet 5 mg PO BID #180 tab 06/26/19 02/11/20 varicella-zoster gE-AS01B (PF) 50 0.5 ml IM ONCE #1 each 08/13/19 02/11/20 mcg/0.5 mL IM susp, kit fluoxetine 20 mg tablet 20 mg PO DAILY #90 tab-cap 09/16/19 02/11/20 hydroxyzine HCl 25 mg tablet 25 mg PO BID PRN #180 tab 10/15/19 02/11/20 budesonide-formoterol HFA 160 2 inh INHALATION BID #3 unit 12/03/19 02/11/20 mcg-4.5 mcg/actuation aerosol inhaler pantoprazole 40 mg tablet,delayed 40 mg PO DAILY #90 tab 12/03/19 02/11/20 release sennosides 8.6 mg-docusate sodium 1 tab PO BID #180 tab 12/03/19 02/11/20 50 mg tablet albuterol sulfate 90 mcg/actuation 2 puff INHALATION Q4H PRN PRN #1 12/31/19 02/11/20 aerosol inhaler inh clonazepam 1 mg tablet 1 mg PO BID 01/14/20 02/11/20 mirtazapine 30 mg tablet 30 mg PO QHS 02/07/20 02/11/20 sucralfate 100 mg/mL oral 5 ml PO TID #420 ml 02/11/20 02/11/20 suspension Previous Rx's Medication Instructions [facility]ed [facility] 10/15/17 albuterol sulfate 2.5 mg INHALATION Q4H PRN PRN 30 10/15/17 Days ml tiotropium bromide 18 mcg capsule 1 cap INHALATION DAILY #90 inh 09/26/18 with inhalation device polyethylene glycol 3350 17 17 gm PO DAILY PRN #850 gm 01/11/19 gram/dose oral powder bisacodyl 10 mg rectal suppository 10 mg CO DAILY PRN #8 each 01/30/19 calcium carbonate 500 mg calcium 500 mg PO BID #180 tab 02/19/19 (1,250 mg) tablet cholecalciferol (vitamin D3) 25 1,000 unit PO DAILY #90 cap 02/19/19 mcg (1,000 unit) capsule lubiprostone 24 mcg capsule 24 mcg PO DAILY #90 cap 04/24/19 docusate sodium [Colace] 100 mg PO BID #90 cap 04/28/19 apixaban 5 mg tablet 5 mg PO BID #180 tab 06/26/19 varicella-zoster gE-AS01B (PF) 50 0.5 ml IM ONCE #1 each 08/13/19 mcg/0.5 mL IM susp, kit fluoxetine 20 mg tablet 20 mg PO DAILY #90 tab-cap 09/16/19 hydroxyzine HCl 25 mg tablet 25 mg PO BID PRN #180 tab 10/15/19 budesonide-formoterol HFA 160 2 inh INHALATION BID #3 unit 12/03/19 mcg-4.5 mcg/actuation aerosol inhaler pantoprazole 40 mg tablet,delayed 40 mg PO DAILY #90 tab 12/03/19 release sennosides 8.6 mg-docusate sodium 1 tab PO BID #180 tab 12/03/19 50 mg tablet albuterol sulfate 90 mcg/actuation 2 puff INHALATION Q4H PRN PRN #1 12/31/19 aerosol inhaler inh sucralfate 100 mg/mL oral 5 ml PO TID #420 ml 02/11/20 suspension Allergies Allergy/AdvReac Type Severity Reaction Status Date / Time No Known Allergies Allergy Verified 02/11/20 18:13 General Stated Complaint: SOB FLASH: 4 Review of Systems Constitutional Constitutional: Reports as per HPI, Denies chills, Denies fever(s), Denies headache(s), Denies lethargy and Denies poor appetite Eyes Eyes: Denies change in vision ENT Ears, Nose, Mouth, and Throat: Denies dizziness and Denies headache(s) Cardiovascular Cardiovascular: Reports as per HPI, Denies chest pain at rest, Denies chest pain with activity, Denies diaphoresis, Denies lightheadedness, Reports dyspnea (. Reports there is something blocking my air) and Denies dyspnea on exertion Respiratory Respiratory: Reports as per HPI, Denies chest congestion, Denies cough, Denies pain on inspiration, Denies pain with cough, Reports dyspnea (. Reports there is something blocking my air), Denies dyspnea on exertion and Denies wheezing Gastrointestinal Gastrointestinal: Reports as per HPI, Denies abdominal pain, Denies diarrhea, Denies nausea and Denies vomiting Genitourinary Genitourinary: Denies system reviewed and no additional complaints, except as documented (denies change in urinary habits) Musculoskeletal Musculoskeletal: Reports as per HPI and Denies back pain Integumentary/Breasts Skin/Breast: Reports as per HPI and Denies rash Neurologic Neurologic: Reports as per HPI, Denies dizziness and Denies headache(s) Allergic/Immunologic Allergic/Immunologic: Denies wheezing [facility] Medical History (Updated 02/11/20 @ 18:31 by CRISTÓBAL Gonzalez) Adjustment disorder with anxiety (Chronic) Alcohol abuse (Chronic) Anxiety (Chronic) Dyspepsia (Chronic) Malignant neoplasm of right lung (Chronic) Tubular adenoma of colon (Inactive) Surgical History colonoscopy (Inactive 01/19/15) Also had a decompress colonoscopy with Dr Haresh Vásquez at [facility] on 06/09/18 for significant colon distention seen on CT scan, no prep done,therapeutic, diagnositc, still due for repeat on 01/19/25 History of lung biopsy (Resolved) History of surgery on upper extremity (Resolved) left Status post cataract extraction and insertion of intraocular lens of left eye (Chronic 11/05/18) Family History Father Essential hypertension Hyperlipidemia Paternal Uncle Heart disease Stroke Cerebral hemorrhage Hypertension Brother Cancer head and neck cancer - smoker Social History Smoking/Tobacco Use Status: Former Tobacco Use Quit Date: 06/05/98 Tobacco: How many years used: 30 Smokeless tobacco user: chewing tobacco Quit status: not considering quitting Alcohol Intake: former Drug use: Never Substance use type: does not use Details: Adopted: No Foster care: No 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 Housing: apartment Number of Children: 0 Communication Needs: None Do you need help understanding health information?: Often current occupation: not working Current gender identity: male How often do you talk on the phone with friends or family?: three or more times per week Panel score (0-1 are the most socially isolated patients): 1 What type of physical activity do you participate in: none and other Details: started lifting weights Frequency: daily Seatbelt use: always 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 Exam Const General: cooperative, comfortable, no acute distress, well developed and anxious Nutritional Appearance: average body habitus and well nourished Orientation: alert, awake and oriented x3 HENMT Head: normal to inspection Ears: hearing grossly normal bilaterally Mouth: mucous membranes dry (Dry mucous membranes) Chest Chest: normal inspection of the chest, normal palpation of entire chest wall and no crepitus Resp Effort & Inspection: normal respiratory effort, able to speak in complete sentences and no respiratory distress Auscultation: clear to auscultation bilaterally, no rales, no rhonchi and no wheezes Cardio Rate: regular rate Rhythm: regular rhythm Heart Sounds: S1 normal and S2 normal GI Inspection: normal to inspection, no edema and non-distended Palpation: soft, no hepatosplenomegaly, not firm, no guarding, not rigid and nontender Auscultation: normal bowel sounds Back/Spine/Pelvis Back: no CVA tenderness Thoracic/Lumbar Spine: thoracic and lumbar spine normal to inspection Skin General skin exam: no rashes or lesions noted Trauma: no lacerations or abrasions Neuro General: patient alert, patient awake and patient oriented x3 Cognition: normal cognition Speech: speech normal Gait: normal gait Extrem General: normal to inspection, capillary refill normal, no pedal edema, no calf tenderness and normal gait Psych Appearance: grossly normal and well kempt Mental Status: mental status grossly normal Speech and Movement: speech and movement normal Mood: anxious mood Affect: anxious affect Attitude: cooperative Course Vital Signs Vital signs: Vital Signs Temperature 36.8 C 02/11/20 18:07 Pulse 82 02/11/20 18:07 Respiratory Rate 16 02/11/20 18:07 Blood Pressure 108/71 02/11/20 18:07 Pulse Oximetry 96 02/11/20 18:07 Temperature 36.8 C 02/11/20 18:07 Temperature Source Oral 02/11/20 18:07 Pulse 82 02/11/20 18:07 Respiratory Rate 16 02/11/20 18:14 Respiratory Effort 02/11/20 18:14 Respiratory Depth Normal 02/11/20 18:14 Respiratory Pattern Normal 02/11/20 18:14 Blood Pressure 108/71 02/11/20 18:07 Blood Pressure Position Supine 02/11/20 18:07 Pulse Oximetry 96 02/11/20 18:07 Oxygen Delivery Method Room Air 02/11/20 18:07 Oxygen Flow Rate 0 02/11/20 18:07 Pain Level 0 02/11/20 18:07
== END 2020-02-11 18:50 | disposition home or self-care (01) ==
PROVIDERS: Emergency Provider Physician Assistant; PCP Internal Medicine
DX: F41.9 Anxiety disorder, unspecified (principal); J44.9 Chronic obstructive pulmonary disease, unspecified
CPT/HCPCS: 93005; 99284; 93010; 99282

== ENCOUNTER → 2020-02-20 12:16 | Outpatient (BNVA) | payer MEDICARE, MEDICAID, SELFPAY | PROVIDERS: PCP Internal Medicine; Referring Provider Internal Medicine; Visit Provider Psychiatry & Neurology Neurology | DX: R41.3 Other amnesia (principal); R41.89 Other symptoms and signs involving cognitive functions and awareness; F10.11 Alcohol abuse, in remission; R63.4 Abnormal weight loss | CPT/HCPCS: 99205; 99215 ==

== ENCOUNTER 2020-02-28 04:17 | Outpatient (CLI) | payer MEDICARE, MEDICAID, SELFPAY ==
--- NOTE | 2020-02-28 07:30 | DI.MRI_ITS ---
EXAM: MR BRAIN WO CLINICAL HISTORY: memory loss, ETOH abuse,COGNITIVE IMPAIRMENT,R41.89 TECHNIQUE: Multiplanar multisequence MRI of the brain was performed. COMPARISON: No exams were available for comparison FINDINGS: VENTRICLES AND EXTRA AXIAL SPACES: Normal in size and morphology for the patient's age. MIDLINE SHIFT: None. CEREBRAL PARENCHYMA: No focus of restricted diffusion to suggest acute infarct. No space-occupying le constanza identified. HEMORRHAGE: None. BRAINSTEM/CEREBELLUM: Normal. CALVARIUM: Normal. VISUALIZED PARANASAL SINUSES/MASTOIDS:Clear. [place]: Normal flow void. [place]: Unremarkable. OTHER FINDINGS: None. IMPRESSION: No evidence of acute infarct or intracranial mass. DATA REPOSITORY:
== END 2020-02-28 04:37 ==
PROVIDERS: PCP Internal Medicine; Visit Provider Psychiatry & Neurology Neurology
DX: R41.3 Other amnesia (principal); F10.10 Alcohol abuse, uncomplicated; R41.89 Other symptoms and signs involving cognitive functions and awareness
CPT/HCPCS: 70551

== ENCOUNTER → 2020-03-19 09:12 | Outpatient (BNVA) | payer MEDICARE, MEDICAID, SELFPAY | PROVIDERS: PCP Internal Medicine; Referring Provider Internal Medicine; Visit Provider Psychiatry & Neurology Neurology | DX: R41.3 Other amnesia (principal); F10.11 Alcohol abuse, in remission | CPT/HCPCS: 99213 ==

== ENCOUNTER 2020-04-24 02:03 | Outpatient (CLI) | payer MEDICARE, MEDICAID, SELFPAY ==
[2020-04-24 13:11] LABS: Vitamin B12 524 pg/mL (193-986)
[2020-04-26 13:49] LABS: Syphilis Total Ab w/Reflex Nonreactive (Nonreactive)
== END 2020-04-24 02:23 ==
PROVIDERS: PCP Internal Medicine; Visit Provider Psychiatry & Neurology Neurology
DX: R41.89 Other symptoms and signs involving cognitive functions and awareness (principal)
CPT/HCPCS: 36415; 82607; 86592; 86780

== ENCOUNTER 2020-05-04 00:38 | Outpatient (CLI) | payer MEDICARE, MEDICAID, SELFPAY ==
[2020-05-04 14:51] LABS: CREATININE 1.07 mg/dL (0.70-1.30)
[2020-05-04] MEDS: Normal Saline - Diluent 50 ML VIAL IV (15:45)
--- NOTE | 2020-05-04 15:45 | DI.CT_ITS ---
EXAM: CT CHEST W CLINICAL HISTORY: F/U RT LUNG CA,C34.91,METASTATIC, ASSESS TREATMENT RESPONSE TECHNIQUE: Imaging Protocol: Axial computed tomography images with coronal and sagittal reformatted images were created and reviewed CONTRAST MATERIAL: Intravenous: Omnipaque 350 Contrast volume:70 is seen. COMPARISON: CT CT CHEST WO from 01/28/2020 FINDINGS: Lungs: Right upper lobe mass is noted which appears basically unchanged from 01/28/2020.. No new rig ht lung nodules nor pleural effusion. No significant focal findings in the opposite-left lung. No l eft pleural effusion the no significant findings in the trachea and mainstem bronchi. Mediastinum: No new hilar nor mediastinal adenopathy. No new subcarinal adenopathy. No axillary lizandro nopathy. No supraclavicular adenopathy. No thyroid masses. Cardiac: Heart size is normal. There is no pericardial effusion. Caliber thoracic aorta is within n ormal limits. Lower most images of this chest study reveal no significant adrenal masses. Osseous: No lytic osseous lesions identified. IMPRESSION: Compared to the prior CT scan of 01/28/2020 there is stable appearance of the previously described ma lignant-appearing mass in the right upper lobe. There are no new additional masses no pleural effusi ons and no gross hilar nor mediastinal adenopathy evident. RADIATION DOSE DELIVERED: 362.61mGy.cm Total DLP DATA REPOSITORY: All CT scans at this facility are submitted to the National Radiology Data Registry (NRDR) Dose Index Registry (DIR) with the [employer] ([employer]). RADIATION OPTIMIZATION: All CT scans at this facility use at least one of these dose optimization te chniques: automated exposure control; mA and/or kV adjustment per patient size (includes targeted exa ms where dose is matched to clinical indication); or iterative reconstruction.
[2020-05-04] MEDS: Omnipaque 350 MG/ML 100 ML BTL IJ (15:46)
== END 2020-05-04 00:58 ==
PROVIDERS: PCP Internal Medicine; Visit Provider Nurse Practitioner Family
DX: C34.91 Malignant neoplasm of unspecified part of right bronchus or lung (principal)
CPT/HCPCS: 71260; 82565; J3490

== ENCOUNTER → 2020-06-18 12:40 | Outpatient (BNVA) | payer MEDICARE, MEDICAID, SELFPAY | PROVIDERS: PCP Internal Medicine; Referring Provider Internal Medicine; Visit Provider Psychiatry & Neurology Neurology | DX: R41.3 Other amnesia (principal); F10.11 Alcohol abuse, in remission; J44.9 Chronic obstructive pulmonary disease, unspecified; Z87.891 Personal history of nicotine dependence | CPT/HCPCS: 99213 ==

== ENCOUNTER 2020-06-20 07:07 | Emergency (ER) | payer MEDICARE, MEDICAID, SELFPAY ==
[2020-06-20] VITALS (8 sets, daily range): BP systolic 100–102; BP diastolic 57–73; PULSE 66–79; RESP 16–25; TEMP 36.2; O2SAT 97–99
--- NOTE | 2020-06-20 07:27 | W.ED.GENAD ---
Discharge Plan Disposition Patient Disposition: HOME Condition: Good Discharge Details Clinical Impression: Anxiety Primary Care Provider: Deborah Chow ED Provider: Daren Chiang [employer] Meds and New Rx's Prescriptions: Continued simethicone [Gas Relief (simethicone)] 80 mg tablet,chewable 80 mg PO 4-6XD PRN (Reason: gas) Qty: 60 RF: 0 mirtazapine 45 mg tablet 45 mg PO QHS RF: 0 clonazepam 1 mg tablet 1 mg PO TID RF: 0 Shingrix (PF) 50 mcg/0.5 mL suspension for reconstitution 0.5 ml IM ONCE Qty: 1 RF: 1 haloperidol 0.5 mg tablet 0.5 mg PO QHS RF: 0 thiamine HCl (vitamin B1) 100 mg tablet 100 mg PO DAILY Qty: 90 RF: 3 fluoxetine 20 mg tablet 20 mg PO DAILY Qty: 90 RF: 3 budesonide-formoterol [Symbicort] 160-4.5 mcg/actuation HFA aerosol inhaler 2 inh Inhalation BID Qty: 3 RF: 3 pantoprazole 40 mg tablet,delayed release (DR/EC) 40 mg PO DAILY Qty: 90 RF: 3 albuterol sulfate [ProAir HFA] 90 mcg/actuation HFA aerosol inhaler 2 puff Inhalation Q4H PRN PRN (Reason: Shortness Of Breath) Qty: 1 RF: 5 cholecalciferol (vitamin D3) 25 mcg (1,000 unit) capsule 1,000 unit PO DAILY Qty: 90 RF: 3 sucralfate [Carafate] 100 mg/mL suspension 5 ml PO TID Qty: 420 RF: 3 apixaban 5 mg tablet 5 mg PO BID Qty: 180 RF: 3 hydroxyzine HCl 25 mg tablet 25 mg PO BID PRN (Reason: anxiety) Qty: 180 RF: 2 (DME) [employer] Advantage 1 EACH spacer 1 ea Miscellaneous DIRECTED RF: 0 docusate sodium [Colace] 100 mg capsule 100 mg PO BID Qty: 90 RF: 0 Discharge Instructions Additional Instructions: Your exam and vital signs are good. Receiving your previous care plan and continue your follow-ups especially with speech therapy. Return to ED if new/worsening symptoms. Referrals: Deborah Chow MD [Primary Care Provider] - Medical Decision Making Patient vital signs are normal. Saturations are normal. Lungs are clear. There is no difference in his symptoms than previous. He is now living at home with parents. We had a discussion regarding how it has been 4 months since he has been here. He really should avoid repeat emergency room visits like he had over the summer. This is not anything new there are no change in his symptoms. He is stable and will be discharged back home. Medical Records Medical records reviewed: Yes I reviewed the patient's medical records. HPI General Mode of arrival: EMS. Date/Time Provider Initiated Documentation: 06/20/20 07:27. Limitations to Documentation: no limitations. Information obtained by: patient. HPI Narrative: Patient presents to ED with complaint of feeling short of breath. Patient is well-known to me. Over the summer he had multiple visits here. He has same complaint as his visit back which are the sensation of something in his throat, anxiety, shortness of breath, discomfort in his chest and abdomen. None of this is new. He did take his Ativan this morning. He is currently living with his parents after being released from the care bed about a month ago. According to old records he just saw oncology within the month and had repeat CT scan. It is felt that the mass in his lung is stable. He is followed by GI at [facility] and Dr. Gonzalez here with negative work-up for his throat sensation. He is working with speech therapy for his swallowing problems. Patient reports that nothing really is new or different this morning. He has not been ill. He has no fever or cough. Continues to abstain from tobacco and alcohol. Related Data Home Medications Medication Instructions Recorded Confirmed [employer] Advantage kit 10/15/17 06/18/20 docusate sodium [Colace] 100 mg PO BID #90 cap 04/28/19 06/20/20 varicella-zoster glycoE vacc-[id number] 0.5 ml IM ONCE #1 each 08/13/19 06/18/20 adj(PF) 50 mcg/0.5 mL IM susp, kit fluoxetine 20 mg tablet 20 mg PO DAILY #90 tab-cap 09/16/19 06/20/20 budesonide-formoterol HFA 160 2 inh INHALATION BID #3 unit 12/03/19 06/20/20 mcg-4.5 mcg/actuation aerosol inhaler pantoprazole 40 mg tablet,delayed 40 mg PO DAILY #90 tab 12/03/19 06/20/20 release albuterol sulfate 90 mcg/actuation 2 puff INHALATION Q4H PRN PRN #1 12/31/19 06/20/20 aerosol inhaler inh simethicone 80 mg chewable tablet 80 mg PO 4-6XD PRN #60 tab 02/12/20 06/20/20 clonazepam 1 mg tablet 1 mg PO TID 02/13/20 06/20/20 mirtazapine 45 mg tablet 45 mg PO QHS 02/13/20 06/20/20 haloperidol 0.5 mg tablet 0.5 mg PO QHS 02/20/20 06/20/20 thiamine HCl (vitamin B1) 100 mg 100 mg PO DAILY #90 tab 02/20/20 06/20/20 tablet cholecalciferol (vitamin D3) 25 1,000 unit PO DAILY #90 cap 02/25/20 06/20/20 mcg (1,000 unit) capsule sucralfate 100 mg/mL oral 5 ml PO TID #420 ml 04/09/20 06/20/20 suspension apixaban 5 mg tablet 5 mg PO BID #180 tab 05/19/20 06/20/20 hydroxyzine HCl 25 mg tablet 25 mg PO BID PRN #180 tab 06/04/20 06/20/20 Previous Rx's Medication Instructions [facility]ed [facility] 10/15/17 docusate sodium [Colace] 100 mg PO BID #90 cap 04/28/19 varicella-zoster glycoE vacc-AS01B 0.5 ml IM ONCE #1 each 08/13/19 adj(PF) 50 mcg/0.5 mL IM susp, kit fluoxetine 20 mg tablet 20 mg PO DAILY #90 tab-cap 09/16/19 budesonide-formoterol HFA 160 2 inh INHALATION BID #3 unit 12/03/19 mcg-4.5 mcg/actuation aerosol inhaler pantoprazole 40 mg tablet,delayed 40 mg PO DAILY #90 tab 12/03/19 release albuterol sulfate 90 mcg/actuation 2 puff INHALATION Q4H PRN PRN #1 12/31/19 aerosol inhaler inh simethicone 80 mg chewable tablet 80 mg PO 4-6XD PRN #60 tab 02/12/20 thiamine HCl (vitamin B1) 100 mg 100 mg PO DAILY #90 tab 02/20/20 tablet cholecalciferol (vitamin D3) 25 1,000 unit PO DAILY #90 cap 02/25/20 mcg (1,000 unit) capsule sucralfate 100 mg/mL oral 5 ml PO TID #420 ml 04/09/20 suspension apixaban 5 mg tablet 5 mg PO BID #180 tab 05/19/20 hydroxyzine HCl 25 mg tablet 25 mg PO BID PRN #180 tab 06/04/20 Allergies Allergy/AdvReac Type Severity Reaction Status Date / Time No Known Allergies Allergy Verified 06/18/20 12:46 General Stated Complaint: Anxiety FLASH: 3 Review of Systems Constitutional Constitutional: Denies fever(s) ENT Ears, Nose, Mouth, and Throat: Reports dysphagia Cardiovascular Cardiovascular: Reports dyspnea Respiratory Respiratory: Denies cough and Reports dyspnea Gastrointestinal Gastrointestinal: Reports dysphagia and Denies vomiting [facility] Medical History (Updated 06/20/20 @ 07:42 by Daren Chiang MD) Abdominal pain Adjustment disorder with anxiety (06/29/17) Alcohol abuse (11/27/12) Anxiety Dyspepsia Epigastric pain Malignant neoplasm of right lung Melena Pancreatitis, acute Rash of face Thrush Tubular adenoma of colon Surgical History colonoscopy (01/19/15) Also had a decompress colonoscopy with Dr Haresh Vásquez at [facility] on 06/09/18 for significant colon distention seen on CT scan, no prep done,therapeutic, diagnositc, still due for repeat on 01/19/25 History of lung biopsy History of surgery on upper extremity left Status post cataract extraction and insertion of intraocular lens of left eye (11/05/18) Family History Father Essential hypertension Hyperlipidemia Paternal Uncle Heart disease Stroke Cerebral hemorrhage Hypertension Brother Cancer head and neck cancer - smoker Social History Smoking/Tobacco Use Status: Former Tobacco Use Quit Date: 06/05/98 Tobacco: How many years used: 30 Smokeless tobacco user: chewing tobacco Quit status: not considering quitting Smoking risk assessment performed?: Yes Alcohol Intake: former Drug use: Never Substance use type: does not use Adopted: No Foster care: No Household members: other 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/12 Housing: other Details: Care Bed at this time Number of Children: 0 Communication Needs: None Do you need help understanding health information?: Often current occupation: not working Current gender identity: male How often do you talk on the phone with friends or family?: three or more times per week Panel score (0-1 are the most socially isolated patients): 1 What type of physical activity do you participate in: none and other Details: started lifting weights Frequency: daily Seatbelt use: always 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 Exam Narrative Exam Narrative: Const: Thin elderly male in NAD. HEENT: NC/AT. Normal facial exam. Eyes: Normal conjunctiva and sclera. Neck: Supple. Trachea midline. Lungs: Normal respiratory effort. Lungs are clear. Cor: RRR without murmur/gallop. Good radial pulses. GI: Soft. NT/ND. No guarding or rebound Neuro: A+O x 3. Normal speech, mentation, gait. Cranial nerves II - XII grossly intact. No gross motor or sensory deficit. Course Vital Signs Vital signs: Vital Signs Temperature 97.2 F L 06/20/20 07:08 Pulse 77 06/20/20 07:08 Respiratory Rate 18 06/20/20 07:08 Blood Pressure 100/73 06/20/20 07:08 Pulse Oximetry 99 06/20/20 07:08 Temperature 97.2 F L 06/20/20 07:08 Temperature Source Temporal Artery Scan 06/20/20 07:08 Pulse 77 06/20/20 07:08 Respiratory Rate 18 06/20/20 07:08 Respiratory Effort Non-Labored 06/20/20 07:17 Blood Pressure 100/73 06/20/20 07:08 Blood Pressure Position Sitting 06/20/20 07:08 Pulse Oximetry 99 06/20/20 07:08 Oxygen Delivery Method Room Air 06/20/20 07:08 Oxygen Flow Rate 0 06/20/20 07:08
== END 2020-06-20 08:02 | disposition home or self-care (01) ==
PROVIDERS: Emergency Provider Emergency Medicine; PCP Internal Medicine
DX: F43.22 Adjustment disorder with anxiety (principal)
CPT/HCPCS: 99283

== ENCOUNTER 2020-07-17 02:56 | Outpatient (CLI) | payer MEDICARE, MEDICAID, SELFPAY ==
[2020-07-17] MEDS: Omnipaque 350 MG/ML 100 ML BTL IJ (12:58)
--- NOTE | 2020-07-17 12:59 | DI.CT_ITS ---
EXAM: CT CHEST W CLINICAL HISTORY: RT LUNG ADENO CA,C34.91,METASTATIS,ASSESS TREATMENT RESPONSE TECHNIQUE: Imaging Protocol: Axial computed tomography images with coronal and sagittal reformatted images were created and reviewed CONTRAST MATERIAL: Intravenous: Omnipaque 350 Contrast volume: 70 cc COMPARISON: CT CT CHEST W from 05/04/2020 FINDINGS: Tracheobronchial tree: Patent where visualized. Mediastinum and Aye: No dominant adenopathy or fluid collection. Pulmonary parenchyma: There has been no change in size or appearance of the previously noted right up per lobe mass. There is some right upper lobe volume loss. No new pulmonary masses or nodules are s een. There is no evidence of adenopathy, pleural or pericardial effusion.. Heart: The heart is not dilated. [id number] coronary artery calcifications are seen. Aorta: Ascending aorta measures 3.5 cm. Minimal calcification. Upper abdomen: Unremarkable. Lymph nodes: Within normal limits. Bones: Minimal degenerative changes. No lytic or blastic lesions. No compression fractures. IMPRESSION: Stable right upper lobe mass. No new abnormalities. RADIATION DOSE DELIVERED: 414.69mGy.cm Total DLP DATA REPOSITORY: All CT scans at this facility are submitted to the National Radiology Data Registry (NRDR) Dose Index Registry (DIR) with the [employer] (ACR). RADIATION OPTIMIZATION: All CT scans at this facility use at least one of these dose optimization te chniques: automated exposure control; mA and/or kV adjustment per patient size (includes targeted exa ms where dose is matched to clinical indication); or iterative reconstruction.
== END 2020-07-17 02:57 ==
LOC: DI 02:57
PROVIDERS: PCP Internal Medicine; Visit Provider Nurse Practitioner Family
DX: C34.91 Malignant neoplasm of unspecified part of right bronchus or lung (principal)
CPT/HCPCS: 71260; 82565; J3490

== ENCOUNTER 2020-08-18 07:10 | Emergency (ER) | payer MEDICARE, MEDICAID, SELFPAY ==
[2020-08-18 07:14] VITALS: BP 118/74; PULSE 88; RESP 18; TEMP 36.7; O2SAT 98
--- NOTE | 2020-08-18 07:41 | ED.GENADUL_ITS ---
Discharge Plan Disposition Patient Disposition: HOME Condition: Stable Discharge Details Clinical Impression: Anxiety, Weight loss Primary Care Provider: Deborah Chow ED Provider: Ean Lyons Home Meds and New Rx's Prescriptions: Continued simethicone [Gas Relief (simethicone)] 80 mg tablet,chewable 80 mg PO 4-6XD PRN (Reason: gas) Qty: 60 RF: 0 mirtazapine 45 mg tablet 45 mg PO QHS RF: 0 clonazepam 1 mg tablet 1 mg PO TID RF: 0 Shingrix (PF) 50 mcg/0.5 mL suspension for reconstitution 0.5 ml IM ONCE Qty: 1 RF: 1 haloperidol 0.5 mg tablet 0.5 mg PO QHS RF: 0 thiamine HCl (vitamin B1) 100 mg tablet 100 mg PO DAILY Qty: 90 RF: 3 fluoxetine 20 mg tablet 20 mg PO DAILY Qty: 90 RF: 3 budesonide-formoterol [Symbicort] 160-4.5 mcg/actuation HFA aerosol inhaler 2 inh Inhalation BID Qty: 3 RF: 3 pantoprazole 40 mg tablet,delayed release (DR/EC) 40 mg PO DAILY Qty: 90 RF: 3 albuterol sulfate [ProAir HFA] 90 mcg/actuation HFA aerosol inhaler 2 puff Inhalation Q4H PRN PRN (Reason: Shortness Of Breath) Qty: 1 RF: 5 cholecalciferol (vitamin D3) 25 mcg (1,000 unit) capsule 1,000 unit PO DAILY Qty: 90 RF: 3 sucralfate [Carafate] 100 mg/mL suspension 5 ml PO TID Qty: 420 RF: 3 apixaban 5 mg tablet 5 mg PO BID Qty: 180 RF: 3 hydroxyzine HCl 25 mg tablet 25 mg PO BID PRN (Reason: anxiety) Qty: 180 RF: 2 Stiolto Respimat 2.5-2.5 mcg/actuation mist 2 puff inhalation DAILY RF: 0 (DME) [employer] Advantage 1 EACH spacer 1 ea Miscellaneous DIRECTED RF: 0 docusate sodium [Colace] 100 mg capsule 100 mg PO BID Qty: 90 RF: 0 Discharge Instructions Instructions: Anxiety (ED) Additional Instructions: Your laboratories and x-ray today were reassuring. Continue to eat 4 to 8 ounces of protein with meals twice daily. We will arrange a follow-up for you with Dr. Chow. Continue your regular medications. You may use Tums for persistent upset stomach 3 times daily if needed. Return to the ER if you develop a fever, black or tarry stools, or any other acute concerns. Medical Decision Making 65-year-old male presents for evaluation of epigastric pain and what he states is feeling that air is taking over my body. States he does feel anxious about this. The epigastric pain has been intermittent for some days, does not seem to have modifying factors, and has been associated with nausea. On my review of systems, he will note 15 pound weight loss over approximately 3 months time. He is now back at home living with his parents. His exam shows him to be thinner than on my previous evaluations. He confabulates at times including telling me that he recently went to [place], [place]. His vital signs are normal, he is otherwise well-appearing. This very much appears to be a chronic problem. I fear he has persistent and progressive memory loss, weight loss, complicated by previous alcohol use and cognitive impairment. Screening labs and x-ray of chest and abdomen obtained. Most notable for low albumin. Hemoglobin is stable at 13. Chemistries unremarkable. Stable chest x-ray, unremarkable abdominal radiographs. We will arrange follow-up for him with Dr. Chow. I will also ask care management to review his available community services. He is stable for discharge at this time. He will continue his daily medications. Lab Data Lab results reviewed: Yes I reviewed the patient's lab results. Labs: Laboratory Results - last 24 hr 08/18/20 08/18/20 07:40 07:40 WBC 4.31 L RBC 4.33 L Hgb 13.2 L Hct 39.1 L MCV 90.3 MCH 30.5 MCHC 33.8 RDW 12.2 Plt Count 194 MPV 10.1 Immature Gran % 0.9 Neutrophils % 65.6 Lymphocytes % 20.0 Monocytes % 12.1 Eosinophils % 0.9 Basophils % 0.5 Nucleated RBC % 0 Absolute Neutrophils 2.83 Absolute Lymphocytes 0.86 L Absolute Monocytes 0.52 Absolute Eosinophils 0.04 Absolute Basophils 0.02 Sodium 137 Potassium 4.3 Chloride 101 Carbon Dioxide 28.6 Anion Gap 7.4 BUN 16 Creatinine 1.0 Estimated GFR/1.73 m2 >= 60.00 Glucose 75 Calcium 8.5 Total Bilirubin 0.4 AST 30 ALT 29 Alkaline Phosphatase 95 Total Protein 7.1 Albumin 3.3 L Lipase 340 HPI General Mode of arrival: ambulatory . Date/Time Provider Initiated Documentation: 08/18/20 07:28 . Limitations to Documentation: no limitations . Information obtained by: patient . History of Present Illness 65 year old M presents to the emergency department with the chief complaint of epigastric pain, described as moderate and similar to prior episodes, Quality is described as dull, and is localized to the abdomen. Patient reports no radiation. Patient started experiencing this day(s) and it has been intermittent. No relieving factors improve symptom(s), No exacerbating factors reported . Patient notes other (15#WEIGHT LOSS/3 MO). Patient did receive the following treatments prior to arrival, none Related Data Home Medications Medication Instructions Recorded [facility] 10/15/17 08/18/20 docusate sodium [Colace] 100 mg PO BID #90 cap 04/28/19 08/18/20 varicella-zoster glycoE vacc-AS01B 0.5 ml IM ONCE #1 each 08/13/19 06/18/20 adj(PF) 50 mcg/0.5 mL IM susp, kit fluoxetine 20 mg tablet 20 mg PO DAILY #90 tab-cap 09/16/19 08/18/20 budesonide-formoterol HFA 160 2 inh INHALATION BID #3 unit 12/03/19 08/18/20 mcg-4.5 mcg/actuation aerosol inhaler pantoprazole 40 mg tablet,delayed 40 mg PO DAILY #90 tab 12/03/19 08/18/20 release albuterol sulfate 90 mcg/actuation 2 puff INHALATION Q4H PRN PRN #1 12/31/19 08/18/20 aerosol inhaler inh simethicone 80 mg chewable tablet 80 mg PO 4-6XD PRN #60 tab 02/12/20 08/18/20 clonazepam 1 mg tablet 1 mg PO TID 02/13/20 08/18/20 mirtazapine 45 mg tablet 45 mg PO QHS 02/13/20 08/18/20 haloperidol 0.5 mg tablet 0.5 mg PO QHS 02/20/20 08/18/20 thiamine HCl (vitamin B1) 100 mg 100 mg PO DAILY #90 tab 02/20/20 08/18/20 tablet cholecalciferol (vitamin D3) 25 1,000 unit PO DAILY #90 cap 02/25/20 08/18/20 mcg (1,000 unit) capsule sucralfate 100 mg/mL oral 5 ml PO TID #420 ml 04/09/20 08/18/20 suspension apixaban 5 mg tablet 5 mg PO BID #180 tab 05/19/20 08/18/20 hydroxyzine HCl 25 mg tablet 25 mg PO BID PRN #180 tab 06/04/20 08/18/20 tiotropium 2.5 mcg-olodaterol 2.5 2 puff INHALATION DAILY 06/26/20 08/18/20 mcg/actuation mist for inhalation Previous Rx's Medication Instructions Recorded [employer] Advantage kit 10/15/17 docusate sodium [Colace] 100 mg PO BID #90 cap 04/28/19 varicella-zoster glycoE vacc-AS01B 0.5 ml IM ONCE #1 each 08/13/19 adj(PF) 50 mcg/0.5 mL IM susp, kit fluoxetine 20 mg tablet 20 mg PO DAILY #90 tab-cap 09/16/19 budesonide-formoterol HFA 160 2 inh INHALATION BID #3 unit 12/03/19 mcg-4.5 mcg/actuation aerosol inhaler pantoprazole 40 mg tablet,delayed 40 mg PO DAILY #90 tab 12/03/19 release albuterol sulfate 90 mcg/actuation 2 puff INHALATION Q4H PRN PRN #1 12/31/19 aerosol inhaler inh simethicone 80 mg chewable tablet 80 mg PO 4-6XD PRN #60 tab 02/12/20 thiamine HCl (vitamin B1) 100 mg 100 mg PO DAILY #90 tab 02/20/20 tablet cholecalciferol (vitamin D3) 25 1,000 unit PO DAILY #90 cap 02/25/20 mcg (1,000 unit) capsule sucralfate 100 mg/mL oral 5 ml PO TID #420 ml 04/09/20 suspension apixaban 5 mg tablet 5 mg PO BID #180 tab 05/19/20 hydroxyzine HCl 25 mg tablet 25 mg PO BID PRN #180 tab 06/04/20 Allergies Allergy/AdvReac Type Severity Reaction Status Date / Time No Known Allergies Allergy Verified 08/18/20 07:20 General Stated Complaint: Abd Prob FLASH: 3 Review of Systems Narrative: 8 REVIEWED AND OTHERWISE NEG [facility] Medical History Abdominal pain Adjustment disorder with anxiety (06/29/17) Alcohol abuse (11/27/12) Anxiety Dyspepsia Epigastric pain Malignant neoplasm of right lung Melena Pancreatitis, acute Rash of face Thrush Tonsillolith (08/13/20) ENT [place] Tubular adenoma of colon Surgical History colonoscopy (01/19/15) Also had a decompress colonoscopy with Dr Haresh Vásquez at [facility] on 06/09/18 for significant colon distention seen on CT scan, no prep done,therapeutic, diagnositc, still due for repeat on 01/19/25 History of lung biopsy History of surgery on upper extremity left Status post cataract extraction and insertion of intraocular lens of left eye (11/05/18) Family History Father Essential hypertension Hyperlipidemia Paternal Uncle Heart disease Stroke Cerebral hemorrhage Hypertension Brother Cancer head and neck cancer - smoker Social History Smoking/Tobacco Use Status: Current-Occasional Tobacco Type: smokeless tobacco Tobacco: How many years used: 30 Smokeless tobacco user: chewing tobacco Quit status: not considering quitting Smoking risk assessment performed?: Yes Alcohol Intake: former Drug use: Never Substance use type: does not use Adopted: No Foster care: No Household members: other Details: [employer] 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 Care 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 26/12 Housing: other Details: Care Bed at this time Number of Children: 0 Communication Needs: None Do you need help understanding health information?: Often current occupation: not working Current gender identity: male How often do you talk on the phone with friends or family?: three or more times per week Panel score (0-1 are the most socially isolated patients): 1 What type of physical activity do you participate in: none and other Details: started lifting weights Frequency: daily Seatbelt use: always Drive intox or ride w/intox 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 Exam Narrative Exam Narrative: GEN: awake, alert, oriented 3. Pleasant, well groomed, intera ctive. HEAD: Normocephalic, atraumatic ENT: Mucous membranes moist, oropharynx unremarkable, External ear exam unremarkable EYES: PERRL, EOMI NECK: Full ROM, no URSZULA, no menigismus CHEST/RESP: Nontender, clear to auscultation bilateral, no wheeze/rhonchi/rales CARDIOVASCULAR: RRR, no murmur, rub jeannie. 2+ Rad pulse bilateral ABDOMEN: Soft, nontender, no mass. +Bowel sounds EXT: Full ROM, no edema, no rash Neuro: Grossly normal neurologic exam, conversant, interactive. Psych: Speech fluent, thoughts congruent, affect flat, confabulates at times Course Vital Signs Vital signs: Vital Signs Temperature 36.7 C 08/18/20 07:14 Pulse 88 08/18/20 07:14 Respiratory Rate 18 08/18/20 07:14 Blood Pressure 118/74 08/18/20 07:14 Pulse Oximetry 98 08/18/20 07:14 Temperature 36.7 C 08/18/20 07:14 Temperature Source Temporal Artery Scan 08/18/20 07:14 Pulse 88 08/18/20 07:14 Respiratory Rate 18 08/18/20 07:14 Respiratory Effort Non-Labored 08/18/20 07:18 Blood Pressure 118/74 08/18/20 07:14 Blood Pressure Position Sitting 08/18/20 07:14 Pulse Oximetry 98 08/18/20 07:14 Oxygen Delivery Method Room Air 08/18/20 07:14 Oxygen Flow Rate 0 08/18/20 07:14 Pain Level 10 08/18/20 07:26
[2020-08-18 07:47] LABS: Abs Immature Grans 0.04 10^3/uL (0.0-0.06); Absolute Basophil Count 0.02 10^3/uL (0.0-0.2); Absolute Eosinophil Count 0.04 10^3/uL (0.0-0.7); Absolute Lymphocyte Count 0.86 10^3/uL (1.2-3.4); Absolute Monocyte Count 0.52 10^3/uL (0.1-0.8); Absolute Neutrophil Count 2.83 10^3/uL (1.2-6.7); Basophils % 0.5; Eosinophils % 0.9; HCT 39.1 % (40.0-50.0); HGB 13.2 g/dL (13.5-17.5); Immature Grans % 0.9; MCH 30.5 pg (27.0-33.0); MCHC 33.8 % (32.0-36.0); MCV 90.3 fL (80-95); MPV 10.1 fL (8.0-11.0); Monocytes % 12.1; Neutrophils % 65.6; Nucleated RBC 0 %; Platelet Count 194 10^3/uL (130-400); RBC 4.33 10^6/uL (4.36-5.78); RDW 12.2 % (11.8-14.1); RDW-SD 40.6 fL; WBC 4.31 10^3/uL (4.4-10.8)
--- NOTE | 2020-08-18 08:00 | DI.RAD_ITS ---
EXAM: XR ABD FLAT UPRIGHT PA CHEST CLINICAL HISTORY: epigastric pain, weight loss TECHNIQUE: COMPARISON: CR XR CHEST 2V PA LATERAL from 12/28/2019 CR,XR XR ABD FLAT UPRIGHT PA CHEST from 02/10/2020 FINDINGS: PA view of the chest again shows a previously described stable right upper lobe pulmonary mass. The lungs otherwise appear clear. No pleural effusion seen on this frontal film. Cardiac size within no rmal limits. The bowel gas pattern appears intact. No free air in the abdomen. No gross organomegaly. IMPRESSION: No evidence of acute process. RADIATION DOSE DELIVERED: Total DLP
[2020-08-18 08:03] LABS: ALT 29 U/L (16-63); AST 30 U/L (15-37); Albumin 3.3 g/dL (3.4-5.0); Alkaline Phosphatase 95 U/L (46-116); Anion Gap 7.4 mmol/L (3-11); BUN 16 mg/dL (7-18); Bilirubin, Total 0.4 mg/dL (0.2-1.0); CO2 28.6 mmol/L (21.0-32.0); Calcium 8.5 mg/dL (8.5-10.1); Chloride 101 mmol/L (98-107); Glucose 75 mg/dL (74-106); Lipase 340 U/L (73-393); Potassium 4.3 mmol/L (3.5-5.1); Sodium 137 mmol/L (136-145); Total Protein 7.1 g/dL (6.4-8.2)
--- NOTE | 2020-08-18 08:20 | NUR.NOTE ---
Nursing Note: Referral faxed to PCP for follow up this week for persistent weight loss. Desi Crawford
[2020-08-18 08:29] VITALS: BP 120/81; PULSE 62; O2SAT 98
== END 2020-08-18 08:39 | disposition home or self-care (01) ==
LOC: ER 12:07
PROVIDERS: Emergency Provider Emergency Medicine; PCP Internal Medicine
DX: R10.13 Epigastric pain (principal); F41.9 Anxiety disorder, unspecified; R63.4 Abnormal weight loss
CPT/HCPCS: 36415; 80053; 83690; 99284; 74022; 85025; 99283

== ENCOUNTER 2021-01-01 03:51 | Outpatient (CLI) | payer MEDICARE, MEDICAID, SELFPAY ==
--- NOTE | 2021-01-01 12:45 | DI.CT_ITS ---
Exam(s) CT CHEST W EXAM: CT CHEST W CLINICAL HISTORY: PRIMARY NEOPLASM RT UPPER LOBE LUNG, C34.11, TREATED WITH SBRT TECHNIQUE: Imaging Protocol: Axial computed tomography images with coronal and sagittal reformatted images were created and reviewed CONTRAST MATERIAL: Intravenous: Omnipaque 350 Contrast volume:70 mL. COMPARISON: CT CT CHEST W from 07/17/2020 FINDINGS: The examination is limited due to patient motion artifact. Tracheobronchial tree: Patent where visualized. Mediastinum and Aye: No dominant adenopathy or fluid collection. Pulmonary parenchyma: The right upper lobe mass is unchanged in size compared to the examination from 07/17/2020. No architectural distortion. Pleura: No effusion or pneumothorax. Heart: The heart is not dilated. Mild coronary artery calcification. No pericardial effusion. Aorta: Thoracic aorta non-dilated. Atherosclerosis. Upper abdomen: Unremarkable. Lymph nodes: Within normal limits. Bones: Normal. Soft tissues: Unremarkable. IMPRESSION: Stable right upper lobe mass. RADIATION DOSE DELIVERED: 448.69mGy.cm Total DLP DATA REPOSITORY: All CT scans at this facility are submitted to the National Radiology Data Registry (NRDR) Dose Index Registry (DIR) with the [employer] (ACR). RADIATION OPTIMIZATION: All CT scans at this facility use at least one of these dose optimization te chniques: automated exposure control; mA and/or kV adjustment per patient size (includes targeted exa ms where dose is matched to clinical indication); or iterative reconstruction.
[2021-01-01] MEDS: Omnipaque 350 MG/ML 100 ML BTL IJ (15:00)
== END 2021-01-01 04:11 ==
PROVIDERS: PCP Internal Medicine; Visit Provider Nurse Practitioner
DX: C34.11 Malignant neoplasm of upper lobe, right bronchus or lung (principal); R91.8 Other nonspecific abnormal finding of lung field
CPT/HCPCS: 71260; 82565; J3490

== ENCOUNTER 2021-08-17 01:32 | Outpatient (CLI) | payer MEDICARE, MEDICAID, SELFPAY ==
[2021-08-17 12:08] LABS: HCT 45.7 % (40.0-50.0); HGB 14.8 g/dL (13.5-17.5); MCH 29.1 pg (27.0-33.0); MCHC 32.4 % (32.0-36.0); MCV 89.8 fL (80-95); MPV 9.8 fL (8.0-11.0); Platelet Count 221 10^3/uL (130-400); RBC 5.09 10^6/uL (4.36-5.78); RDW 11.9 % (11.8-14.1); RDW-SD 39.1 fL; WBC 5.66 10^3/uL (4.4-10.8)
[2021-08-17 13:09] LABS: ALT 22 U/L (16-63); AST 18 U/L (15-37); Albumin 3.7 g/dL (3.4-5.0); Alkaline Phosphatase 84 U/L (46-116); Anion Gap 7.7 mmol/L (3-11); BUN 17 mg/dL (7-18); Bilirubin, Total 0.5 mg/dL (0.2-1.0); CO2 29.3 mmol/L (21.0-32.0); CREATININE 1.2 mg/dL (0.70-1.30); Calcium 8.5 mg/dL (8.5-10.1); Chloride 106 mmol/L (98-107); Glucose 108 mg/dL (74-106); Lipase 202 U/L (73-393); Potassium 4.4 mmol/L (3.5-5.1); Sodium 143 mmol/L (136-145); TSH 1.36 uIU/mL (0.36-3.74); Total Protein 7.1 g/dL (6.4-8.2)
[2021-08-19 00:50] LABS: Vitamin D 25 Total 35.6 ng/mL (30-100)
== END 2021-08-17 01:33 | disposition home or self-care (01) ==
LOC: LBO 01:32
PROVIDERS: PCP Internal Medicine; Visit Provider Internal Medicine
DX: C34.91 Malignant neoplasm of unspecified part of right bronchus or lung (principal); E55.9 Vitamin D deficiency, unspecified; F41.9 Anxiety disorder, unspecified; K86.0 Alcohol-induced chronic pancreatitis; R63.4 Abnormal weight loss; F10.11 Alcohol abuse, in remission
CPT/HCPCS: 36415; 80053; 82306; 83690; 85027; 84443

== ENCOUNTER → 2022-03-16 00:49 | Outpatient (CLI) | payer OTHER, MEDICAID, SELFPAY ==
[2022-03-16 07:29] LABS: CREATININE 1.2 mg/dL (0.70-1.30); Estimated GFR 66.28 (mL/min/1.73m2)
--- NOTE | 2022-03-16 08:00 | DI.CT_ITS ---
Exam(s) CT CHEST W EXAM: CT CHEST W CLINICAL HISTORY: ADENOCARCINOMA OF RT LUNG, C34.91, ASSESS TX RESPONSE TECHNIQUE: CT examination of the chest was performed with intravenous infusion of 100 cc of Omnipaqu e 350. COMPARISON: CT CT CHEST W from 01/01/2021 FINDINGS: The previously described right upper lobe pulmonary mass is again seen. There has been little if any change in appearance of the mass in comparison with examination of January 01. Mass measures about 3 5 x 24 millimeters in diameter excluding a linear extension along the fissure. No additional intrapu lmonary mass seen.. There is no evidence of pleural effusion. There is no evidence of pulmonary embolic disease. There is unremarkable appearance of the thoracic aorta and major branches with no evidence of aneurysm or dissection. There is no mediastinal or hilar adenopathy. Tracheobronchial tree appears intact. No axillary or supraclavicular adenopathy. Visualized portions of the liver, spleen, adrenals, and kidneys are unremarkable. No abnormality seen involving the bony thorax. IMPRESSION: No significant interval change in appearance of right upper lobe pulmonary mass in comparison with ex amination of January 01 No additional significant new findings. RADIATION DOSE DELIVERED: 359.94mGy.cm Total DLP 359.94mGy.cm Total DLP !Error CTDIvol DATA REPOSITORY: All CT scans at this facility are submitted to the National Radiology Data Registry (NRDR) Dose Index Registry (DIR) with the [employer] (ACR). RADIATION OPTIMIZATION: All CT scans at this facility use at least one of these dose optimization te chniques: automated exposure control; mA and/or kV adjustment per patient size (includes targeted exa ms where dose is matched to clinical indication); or iterative reconstruction.
[2022-03-16] MEDS: Omnipaque 350 MG/ML 500 ML BTL-Imaging package 100 ML IJ (08:22)
== END ==
PROVIDERS: PCP Internal Medicine; Visit Provider Nurse Practitioner Family
DX: C34.91 Malignant neoplasm of unspecified part of right bronchus or lung (principal)
CPT/HCPCS: 71260; 82565

== ENCOUNTER → 2022-07-06 09:52 | Outpatient (BNVA) | payer OTHER, MEDICAID, SELFPAY | PROVIDERS: PCP Family Medicine; Referring Provider Family Medicine; Visit Provider Psychiatry & Neurology Neurology | DX: G24.01 Drug induced subacute dyskinesia (principal); G20 Parkinson's disease; R41.3 Other amnesia; F10.11 Alcohol abuse, in remission | CPT/HCPCS: 99214 ==

== ENCOUNTER → 2022-09-07 09:20 | Outpatient (BNVA) | payer OTHER, MEDICAID, SELFPAY | PROVIDERS: PCP Family Medicine; Referring Provider Family Medicine; Visit Provider Psychiatry & Neurology Neurology | DX: R41.3 Other amnesia (principal); F10.11 Alcohol abuse, in remission; G20 Parkinson's disease; G24.01 Drug induced subacute dyskinesia; R13.10 Dysphagia, unspecified | CPT/HCPCS: 99214 ==

== ENCOUNTER 2022-11-05 09:17 | Inpatient (IN) | payer OTHER, MEDICAID, SELFPAY ==
[2022-11-05] VITALS (130 sets, daily range): BP systolic 78–187; BP diastolic 31–169; PULSE 70–129; RESP 7–63; TEMP 36.8–38.2; O2SAT 73–99
--- NOTE | 2022-11-05 | DI.CT_ITS ---
Exam(s) CT ABDOMEN PELVIS WO EXAM: CT ABDOMEN PELVIS WO CLINICAL HISTORY: No PO or IV contrast. TECHNIQUE: Imaging Protocol: Axial computed tomography images with coronal and sagittal reformatted images were created and reviewed. COMPARISON: CT CT CHEST/ABD/PEL W from 04/01/[address] CHEST PE CTA from 11/05/2022 FINDINGS: The examination is limited due to patient motion artifact. There is IV contrast in the renal collecti ng system from the patient's CT scan of the chest from earlier in the day. ABDOMEN: Lung Bases: There again seen bilateral ground-glass opacities in the lung bases and left lingula. Mu cous plugging is seen in branches to the lower lobes bilaterally. Liver: Normal density. No measurable mass. Gallbladder and biliary tract: No radiodense calculus or biliary ductal dilation. Pancreas: Normal density, no abnormal calcifications or inflammatory process. Spleen: Normal. Kidneys: Normal size, contour and axis.No radiodense stones or obstructive uropathy. No masses seen. Adrenal glands: No mass is seen. Lymph nodes: Within normal limits. Abdominal Aorta: Abdominal portion non-dilated. Atherosclerosis is present. PELVIS: Bladder:There is a Noel catheter seen in the urinary bladder. The urinary bladder is incompletely d istended. There is thickening of the wall of the urinary bladder which may be due to underdistention . There is again seen a small amount of air in the urinary bladder likely from recent catheterizatio n. Bowel: No obstruction or bowel wall thickening. Appendix is unremarkable. Peritoneal cavity: No ascites, collection or mesenteric inflammatory response. No free air. Reproductive organs: Unremarkable as visualized. Bones: Within normal limits. Soft Tissues: There is a small fat containing left inguinal hernia. IMPRESSION: 1. Persistent bilateral basilar ground-glass infiltrates consistent with pneumonia. Findings were pr esent on the CT scan of the chest from earlier in the day. 2. No acute abdominal pelvic process. RADIATION DOSE DELIVERED: 647.85mGy.cm Total DLP DATA REPOSITORY: All CT scans at this facility are submitted to the National Radiology Data Registry (NRDR) Dose Index Registry (DIR) with the [employer] (ACR). RADIATION OPTIMIZATION: All CT scans at this facility use at least one of these dose optimization te chniques: automated exposure control; mA and/or kV adjustment per patient size (includes targeted exa ms where dose is matched to clinical indication); or iterative reconstruction.
--- NOTE | 2022-11-05 09:15 | RT.EKG_ITS ---
APPROVED REPORT Exam: Resting ECG Reason for Exam: SOB Patient Location: E HR:116 bpm ECG Measurements Heart Rate 116 AXIS MO 142 P 82 QRSd 74 QRS -16 QT 348 T 65 QTc 483 Conclusion Sinus tachycardia...rate> 99 Atrial premature complex...SV complex w/ short R-R interval Probable left atrial enlargement...P >50mS, <-0.10mV V1 Low voltage, extremity leads...all extremity leads <0.5mV Narrow complex sinus tachycardia at a rate of 116. Normal axis. Intervals within normal limits. ST segment depressions diffusely new compared to prior dated [address] segment elevations. L ow voltage similar to prior.
--- NOTE | 2022-11-05 09:15 | DI.RAD_ITS ---
Exam(s) XR PORTABLE CHEST AP EXAM: XR PORTABLE CHEST AP CLINICAL HISTORY: SOB TECHNIQUE: 2D digital imaging was performed of the chest. One image was obtained. An AP view was ob tained. COMPARISON: CR XR PORTABLE CHEST AP from 11/22/2019 CR XR ABD FLAT UPRIGHT PA CHEST from 08/18/2020 FINDINGS: MEDIASTINUM: Normal. HEART: Normal. PULMONARY VASCULATURE: Normal. LUNGS: Bilateral airspace opacities are present suggesting multifocal pneumonia. PLEURAL SPACE: No pleural effusion or pneumothorax. BONE:Within normal limits for the patient's age. OTHER FINDINGS:Normal. IMPRESSION: Findings suspicious for multifocal pneumonia with bilateral opacities. DATA REPOSITORY: RADIATION DOSE DELIVERED:
--- NOTE | 2022-11-05 09:18 | W.ED.GENAD ---
Discharge Plan Discharge Details Chief Complaint: RespSymp Clinical Impression: Acute lactic acidosis, Acute respiratory failure with hypoxia and hypercarbia, Community acquired pneumonia, Leukocytosis, Hypoalbuminemia, FREDDY (acute kidney injury) Admit Date/Time: 11/05/22 11:52 Admit Provider: Natali Hopper Attending Provider: Natali Hopper Primary Care Provider: Glenn Ybarra ED Provider: Brando Singh Medical Decision Making This is a 67-year-old male with a history of adenocarcinoma of the lung, PE on apixaban now in the emergency department with tachypnea and marked hypoxia concerning for pneumonia versus COPD. No significant B-lines nor significant lower extremity edema to suggest CHF. Will cover with ceftriaxone and vancomycin secondary to concern for pneumonia. We will draw blood cultures and lactate. We will treat empirically with dexamethasone and nebulized ipratropium albuterol. Patient had a room air oxygen saturation of 57% on room air. He is currently 97% on 100% FiO2 with BiPAP. Given minimal history will obtain acetaminophen ethanol and salicylates. We will obtain a venous blood gas to assess for concomitant hypercarbia. Given hypoxia I considered VQ mismatch which is certainly possible given history of reactive airway disease or PE. Lower suspicion for diffusion defect such given no significant pulmonary edema. Not likely methemoglobinemia. His temperature was 100.8 ?F concerning for pneumonia. 9:56 AM Venous blood gas with marked acidemia and mild hypercarbia with pH of 7.23 and partial pressure of CO2 57 mmHg. Marked lactic acidosis at 5.0. 10:05 AM Patient is on 16/8 of BiPAP. His oxygen saturation has been titrated down to 80% however he was still working hard to breathe asked respiratory therapy to bring him back up to 100%. Cultures being drawn. We will insert Noel catheter to monitor I's and O's and send urinalysis.CBC with marked leukocytosis. No anemia. No thrombocytopenia. 10:15 AM Elevated CK more than 3 times the upper limit of normal concerning for early rhabdomyolysis. Normal magnesium. Negative troponin. Negative ethanol. Normal proBNP. Negative acetaminophen and salicylates. Creatinine mildly elevated at 1.6 consistent with FREDDY. Anion gap likely secondary to lactic acidosis. Mildly hypoalbuminemia similar to prior. 10:30 AM Swab negative for COVID, influenza, and RSV. Heart rate slightly improved. Pressure 83/55. Patient is still in the process of receiving his first 500 cc of crystalloid however will start low-dose norepinephrine to maintain a MAP greater than 65 mmHg. 10:50 AM MAP 69 without intervention. Will defer norepinephrine at this point in time. 11:04 AM Markedly elevated D-dimer for which patient will undergo CTA to assess for PE. Nitrite negative urine reassuring against UTI. 11:36 AM Improved venous blood gas with resolved acidemia and resolved hypercarbia. Improving lactic acidosis with a repeat lactate 3.6 mmol/L. He is receiving his third 500cc. He has had no UOP. Will give a four 500cc. I spoke with Dr. Hopper who graciously accepted the patient for hospitalization. Improved CK. 2 PM Patient with no PE but multifocal pneumonia CT chest. Patient did begin making urine in the emergency department. He was having greater than 0.5 cc/kg/h urine output which is certainly adequate. Chronic conditions affecting the care of the patient: Lung cancer History obtained from an outside historian: Patient's mother External record review: [facility] EMR Diagnostic interpretations performed by me: [Per my independent interpretation chest x-ray shows:] Bilateral infiltrates Per my independent interpretation EKG shows: Narrow complex sinus tachycardia at a rate of 116. Normal axis. Intervals within normal limits. ST segment depressions diffusely new compared to prior dated [address] segment elevations. Low voltage similar to prior. Medications: Antibiotics nebs steroids Social determinants of health affecting disposition: Chronically ill Management discussed with: Dr. Hopper Treatment/interventions considered: Intubation but deferred given improvement on BiPAP. Response to therapies provided: Markedly improved work of breathing on BiPAP HPI General Date/Time Provider Initiated Documentation: 11/05/22 09:18. HPI Narrative: This is a 67-year-old male with a history of lung malignancy parkinsonism asthma COPD overlap and cognitive impairment arriving via private vehicle with his mother in the setting of decreased responsiveness. Mother reports that he felt warm yesterday and that there was drooling today. He denies routine tobacco and alcohol. He has not been vomiting. He has no history of CHF. Unable to obtain additional history secondary to the acuity of the patient's presentation. Related Data Home Medications Medication Instructions Recorded Confirmed inhalational spacing device 10/15/17 10/21/22 (OptiChamber Advantage spacer) fluoxetine 20 mg tablet 20 mg PO DAILY #90 tab-caps 09/16/19 11/05/22 budesonide-formoterol HFA 160 2 inh inhalation BID #3 units 12/03/19 11/05/22 mcg-4.5 mcg/actuation aerosol inhaler (Symbicort) hydroxyzine HCl 25 mg tablet 25 mg PO BID PRN anxiety #180 tabs 06/04/20 11/05/22 albuterol sulfate 90 mcg/actuation 1 inh inhalation ONCE 01/25/21 11/05/22 aerosol inhaler (Proventil HFA) tiotropium bromide 2.5 2 puff inhalation DAILY COPD #4 01/25/21 11/05/22 mcg/actuation mist for inhalation grams (Spiriva Respimat) clonazepam 1 mg tablet 1 mg PO BID 02/24/21 11/05/22 cholecalciferol (vitamin D3) 25 1,000 unit PO DAILY #90 caps 12/27/21 11/05/22 mcg (1,000 unit) capsule thiamine HCl (vitamin B1) 100 mg 100 mg PO DAILY #90 tabs 12/30/21 11/05/22 tablet apixaban 5 mg tablet 5 mg PO BID #180 tabs 03/17/22 11/05/22 tetrabenazine 25 mg tablet 25 mg PO BID #180 tabs 09/07/22 11/05/22 Adult diapers, 1-2 per day #28 ea 09/19/22 10/21/22 nutritional supplements 0.09 325 ml PO DAILY #7,800 mL 09/19/22 11/05/22 gram-0.5 kcal/mL oral liquid (Boost Max Men) pantoprazole 40 mg tablet,delayed 40 mg PO DAILY #90 tabs 10/04/22 11/05/22 release neomycin-polymyxin B-dexameth eye 1 applic ophthalmic (eye) QHS 10/21/22 11/05/22 ointment mirtazapine 45 mg tablet 45 mg PO HS 11/05/22 11/05/22 Previous Rx's Medication Instructions Recorded inhalational spacing device 10/15/17 (OptiChamber Advantage spacer) fluoxetine 20 mg tablet 20 mg PO DAILY #90 tab-caps 09/16/19 budesonide-formoterol HFA 160 2 inh inhalation BID #3 units 12/03/19 mcg-4.5 mcg/actuation aerosol inhaler (Symbicort) hydroxyzine HCl 25 mg tablet 25 mg PO BID PRN anxiety #180 tabs 06/04/20 tiotropium bromide 2.5 2 puff inhalation DAILY COPD #4 01/25/21 mcg/actuation mist for inhalation grams (Spiriva Respimat) cholecalciferol (vitamin D3) 25 1,000 unit PO DAILY #90 caps 12/27/21 mcg (1,000 unit) capsule thiamine HCl (vitamin B1) 100 mg 100 mg PO DAILY #90 tabs 12/30/21 tablet apixaban 5 mg tablet 5 mg PO BID #180 tabs 03/17/22 tetrabenazine 25 mg tablet 25 mg PO BID #180 tabs 09/07/22 Adult diapers, 1-2 per day #28 ea 09/19/22 nutritional supplements 0.09 325 ml PO DAILY #7,800 mL 09/19/22 gram-0.5 kcal/mL oral liquid (Boost Max Men) pantoprazole 40 mg tablet,delayed 40 mg PO DAILY #90 tabs 10/04/22 release Allergies Allergy/AdvReac Type Severity Reaction Status Date / Time No Known Allergies Allergy Verified 11/05/22 09:45 General FLASH: 3 PFSH All Active Problems (Updated 11/05/22 @ 18:31 by Natali Hopper MD) Sepsis (Acute) Hx pulmonary embolism (Chronic) Elevated CPK (Acute) Acute lactic acidosis (Acute) Acute respiratory failure with hypoxia and hypercarbia (Acute) Community acquired pneumonia (Acute) Leukocytosis (Acute) Hypoalbuminemia (Acute) FREDDY (acute kidney injury) (Acute) Parkinsonism (Chronic) Urinary incontinence (Acute) Pseudobulbar affect (Acute) Unintentional weight loss (Acute) Chronic anticoagulation (Chronic) Tardive dyskinesia (Chronic) Cervicalgia (Acute) Anxiety with somatic features (Chronic) chest wall pain, globus sensation, abdominal pain, shortness of breath Asthma-COPD overlap syndrome (Acute) GERD (gastroesophageal reflux disease) (Chronic) Depressive disorder (Chronic) Confabulation (Chronic) Memory loss (Acute) Non compliance w medication regimen (Chronic) Chest wall pain, chronic (Acute) Pharyngoesophageal dysphagia (Acute) Globus sensation (Acute) Vitamin D deficiency (Acute) Hypocalcemia (Chronic) Pulmonary embolism (Chronic 12/20/18) CT Report, Started on Eliquis Constipation (Chronic) Cognitive impairment (Chronic) [facility] progress note: 11/13/18, mild to moderate Chronic alcoholic pancreatitis (Acute) Umbilical hernia (Acute) Tubular adenoma of colon (Acute 05/04/09) 01/19/15 NO adenoma on repeat colonoscopy Malignant neoplasm of unspecified part of right bronchus or lung (Acute 10/04/17) Dyspepsia (Acute 04/26/16) Chronic obstructive pulmonary disease (Chronic 03/22/17) moderately severe 03/07/17: FEV1/FVC 1.82/3.48, 52% (+) Bronchodilator response compared to PFT in 2007, 800cc decline in FVC & 460cc decline in FEV1 Anxiety (Chronic 09/17/14) Alcohol abuse, in remission (Acute 04/26/16) Medical History Abdominal pain Adjustment disorder with anxiety (06/29/17) Alcohol abuse (11/27/12) Anxiety Dyspepsia Epigastric pain History of sore throat Malignant neoplasm of right lung [facility] Palliative [facility] patient Pancreatitis, acute Rash of face Thrush Tubular adenoma of colon Weight loss Surgical History colonoscopy (01/19/15) Also had a decompress colonoscopy with Dr Haresh Vásquez at [facility] on 06/09/18 for significant colon distention seen on CT scan, no prep done,therapeutic, diagnositc, still due for repeat on 01/19/25 History of lung biopsy History of surgery on upper extremity left Status post cataract extraction and insertion of intraocular lens of left eye (11/05/18) Family History Father Essential hypertension Hyperlipidemia Paternal Uncle Heart disease Stroke Cerebral hemorrhage Hypertension Brother Cancer head and neck cancer - smoker Social History Smoking/Tobacco Use Status: Current-Occasional Tobacco Type: smokeless tobacco Tobacco: How many years used: 30 Smokeless tobacco user: chewing tobacco Quit status: not considering quitting Smoking risk assessment performed?: Yes Alcohol Intake: former Drug use: Occasionally Substance use type: marijuana Adopted: No Foster care: No Household members: other 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: 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 26/12 Housing: other Details: Care Bed at this time Number of Children: 0 Communication Needs: None Do you need help understanding health information?: Often current occupation: not working Current gender identity: male How often do you talk on the phone with friends or family?: three or more times per week How often do you get together with friends or relatives?: three or more times per week Panel score (0-1 are the most socially isolated patients): 1 What type of physical activity do you participate in: none and other Details: started lifting weights Frequency: daily Seatbelt use: always Drive intox or ride w/intox vending route 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 Exam Narrative Exam Narrative: General: Chronically ill-appearing in moderate distress Head: Normocephalic, atraumatic. Eye: Extraocular eye movements intact. No conjunctival injection. No scleral icterus. Ear, nose, mouth, throat: Grossly normal inspection. Normal voice, handling secretions normally. Neck: Trachea midline. Cardiovascular: Rapid regular rate. Respiratory: Coarse breath sounds bilaterally. Gastrointestinal: Nondistended abdomen. Nontender. Musculoskeletal: No significant lower extremity pitting edema. Moving all 4 extremities spontaneously. Skin: Cyanotic extremities. Neurologic: Alert and following commands. No obvious acute deficits. Critical Care Time Critical Care Time Critical Care Time: Yes Total Critical Care Time: 60 Attestation: Acute respiratory failure hypoxia POCUS Exam (ED) Limited Cardiac Exam DATE OF EXAM: 11/05/22 TIME OF EXAM: 09:44 REASON FOR EXAM: Dyspnea VISUALIZED STRUCTURES: Four Chambers and Interventricular septum VIEW OBTAINED: Apical 4-Chamber and Parasternal long-axis PERTINENT FINDINGS/IMPRESSION: Other No significant B-lines bilaterally. Difficult to assess screw secondary to tachycardia but apparently good squeeze ; No pericardial effusion Exam complete
[2022-11-05 09:39] LABS: BE (Venous) -3 mmol/L (-2-3); HCO3 (Venous) 24 mmol/L (23-28); O2 Sat (Venous) 69 %; TCO2 (Venous) 23 mmol/L (24-29); pCO2 (Venous) 57 mmHg (41-51); pH (Venous) 7.23 (7.31-7.41); pO2 (Venous) 42 mmHg
[2022-11-05] MEDS: cefTRIAXone 2 GM/50 ML BAG IVPB (09:45)
[2022-11-05] MEDS: Dexamethasone 10 MG/ML VIAL IVP (09:45)
[2022-11-05 09:47] LABS: HCT 45.1 % (40.0-50.0); HGB 14.6 g/dL (13.5-17.5); MCH 29.4 pg (27.0-33.0); MCHC 32.4 % (32.0-36.0); MCV 91 fL (80-95); Platelet Count 359 10^3/uL (130-400); RBC 4.96 10^6/uL (4.36-5.78); RDW 11.7 % (11.8-14.1)
[2022-11-05] MEDS: Albuterol/Ipratropium 3 ML UPD VIAL (09:50)
[2022-11-05 09:51] LABS: WBC 28.06 10^3/uL (4.4-10.8)
[2022-11-05 10:05] LABS: ALT 18 U/L (16-63); AST 35 U/L (15-37); Alkaline Phosphatase 111 U/L (46-116); Anion Gap 14.1 mmol/L (3-11); BUN 22 mg/dL (7-18); Bilirubin, Total 0.8 mg/dL (0.2-1.0); CO2 24.9 mmol/L (21.0-32.0); CREATININE 1.6 mg/dL (0.70-1.30); Calcium 8.7 mg/dL (8.5-10.1); Chloride 101 mmol/L (98-107); Creatine Kinase 989 U/L (39-308); Estimated GFR 46.64 (mL/min/1.73m2); Glucose 260 mg/dL (74-106); Magnesium 2.3 mg/dL (1.8-2.4); NT-proBNP 126 pg/mL (<300); Potassium 3.6 mmol/L (3.5-5.1); Sodium 140 mmol/L (136-145); Total Protein 8.1 g/dL (6.4-8.2); Troponin I < 50 ng/L (<or=60)
[2022-11-05 10:08] LABS: Absolute Lymphocyte Count 1.12 10^3/uL (1.2-3.4); Absolute Monocyte Count 1.12 10^3/uL (0.1-0.8); Absolute Neutrophil Count 25.82 10^3/uL (1.2-6.7); Bands % 6; Diff Comment Manual Differential; RBC Morphology Normal
[2022-11-05 10:09] LABS: ETHANOL BLOOD < 3.0 mg/dL (<10)
[2022-11-05 10:13] LABS: Acetaminophen < 2 ug/mL (10-30); Salicylate < 2.8 mg/dL (<2.8)
[2022-11-05] MEDS: Normal Saline 500 ML IV ×3 (10:20→11:30)
[2022-11-05 10:24] LABS: COVID-19 PCR Negative (Negative); Influenza A PCR Negative (Negative); Influenza B PCR Negative (Negative); RSV PCR Negative (Negative)
[2022-11-05 10:26] LABS: Source Nasopharynx
[2022-11-05] MEDS: VANCOMYCIN/WATER (PEG) 1 GM/200 ML BAG IVPB (10:29)
--- NOTE | 2022-11-05 10:29 | DI.VRAD_ITS ---
PROCEDURE INFORMATION: Exam: XR Chest Exam date and time: 11/05/2022 10:15 AM Age: 67 years old Clinical indication: Shortness of breath TECHNIQUE: Imaging protocol: Radiologic exam of the chest. Views: 1 view. COMPARISON: CT CHEST W 03/16/2022 8:10 AM FINDINGS: Lungs: Patchy bilateral opacities may represent multifocal pneumonia.. Pleural spaces: Unremarkable. No pleural effusion. No pneumothorax. Heart/Mediastinum: Unremarkable. No cardiomegaly. Bones/joints: Unremarkable. IMPRESSION: Patchy bilateral opacities may represent multifocal pneumonia.. Dictated and Authenticated by: Damián Guevara MD. Ordering:ALICE Michaels MD
[2022-11-05 10:46] LABS: Bilirubin Small (Negative); Blood Negative (Negative); Clarity Clear (Clear); Glucose Negative (Negative); Ketones 40 mg/dL (Negative); Leukocyte Esterase Negative (Negative); Nitrite Negative (Negative); Specific Gravity 1.025 (1.005-1.025); Urobilinogen 0.2 mg/dL (Up to 0.2)
[2022-11-05 10:56] LABS: Bacteria Negative HPF (Negative); C & S Indicated? No; Casts 5-10 Hyaline LPF (Negative); Crystals Negative HPF (Negative); Epithelial Cells Few HPF (Negative); Mucus Trace (Negative); RBC 0-2 HPF (0-2); WBC 0-2 HPF (0-5)
[2022-11-05 10:57] LABS: D-Dimer 1083 ng/mlFEU (<500)
[2022-11-05] MEDS: ACETAMINOPHEN 1,000 MG/100 ML BTL 400 MG IVPB (11:00)
--- NOTE | 2022-11-05 11:00 | DI.CT_ITS ---
Exam(s) CT CHEST PE CTA EXAM: CT CHEST PE CTA CLINICAL HISTORY: Shortness of breath positive dimer. TECHNIQUE: Imaging Protocol: Axial CT angiography was performed with multi-slice acquisition and mu lti-planar and/or 3D reconstructions. CONTRAST MATERIAL: Intravenous: Omnipaque 350 contrast volume:100 mL COMPARISON: CT CT CHEST W from 03/16/2022 FINDINGS: The examination is limited due to patient motion artifact. Tracheobronchial tree: There is mucous plugging seen in branches to the lower lobes bilaterally. Pulmonary parenchyma: Ground-glass opacities are seen in the lungs bilaterally. The findings are pre dominantly involving the right middle lobe and lingula and both lower lobes. There is again seen a m asslike area involving the right upper lobe. It measures 5.2 cm. Using similar measuring techniques , previously it measured 5.5 x 2.3 cm. Pulmonary Arteries: No evidence of filling defect to suggest pulmonary emboli. Mediastinum and Aye: No dominant adenopathy or fluid collection. The esophagus is unremarkable. Visualized thyroid gland: Unremarkable. Pleura: No effusion or pneumothorax. Heart: The heart is not dilated. Mild coronary artery calcification is present. No pericardial effus ion. Aorta: Thoracic aorta non-dilated. No evidence of dissection. Atherosclerosis is present. Upper abdomen: Unremarkable. Soft tissues: Mild gynecomastia. Bones: Within normal limits for the patient's age. IMPRESSION: 1. No evidence of pulmonary embolism, thoracic aortic dissection or aneurysm. 2. Slight decrease in size in opacity in the right upper lobe. 3. Patchy ground-glass opacities in the lungs suspicious for multifocal pneumonia. RADIATION DOSE DELIVERED: 304.02mGy.cm Total DLP DATA REPOSITORY: All CT scans at this facility are submitted to the National Radiology Data Registry (NRDR) Dose Index Registry (DIR) with the [employer] (A[employer]). RADIATION OPTIMIZATION: All CT scans at this facility use at least one of these dose optimization te chniques: automated exposure control; mA and/or kV adjustment per patient size (includes targeted exa ms where dose is matched to clinical indication); or iterative reconstruction.
[2022-11-05 11:26] LABS: BE (Venous) -1 mmol/L (-2-3); HCO3 (Venous) 25 mmol/L (23-28); O2 Sat (Venous) 98 %; TCO2 (Venous) 22 mmol/L (24-29); pCO2 (Venous) 44 mmHg (41-51); pH (Venous) 7.36 (7.31-7.41); pO2 (Venous) 101 mmHg
[2022-11-05 11:31] LABS: Lactate 3.6 mmol/L (0.6-1.4)
[2022-11-05 11:43] LABS: Creatine Kinase 845 U/L (39-308)
[2022-11-05 11:46] LABS: Troponin I < 50 ng/L (<or=60)
--- NOTE | 2022-11-05 12:11 | W.PM.HP.N ---
Date of service: 11/05/22 Time of Service: 12:11 Assessment and Plan Assessment and plan (1) Sepsis: Status: Acute Assessment and plan: Due to PNA, present on admission. Await blood cultures. Continue empiric abx. Doxycycline is being added. Continue to trend lactates. Obtain pneumonia studies to include legionella, strep, mycoplasma, sputum c&S. (2) Acute respiratory failure with hypoxia and hypercarbia: Status: Acute Assessment and plan: Due to bilateral pneumonia present on admission in addition to a possible underlying COPD exacerbation. The patient is markedly better with BiPAP therapy, steroids, nebs. I do not think antibiotics would have had a chance to work this quickly. Will continue the patient on steroids. Wean BiPAp as tolerated. Encourage pulmonary toilet. (3) Community acquired pneumonia: Status: Acute Assessment and plan: Treat with empiric abx as above. Obtain pneumonia studies. Obtain a speech therapy consult. (4) Asthma-COPD overlap syndrome: Status: Acute Assessment and plan: As above. Would continue steroids as well. (5) Acute lactic acidosis: Status: Acute Assessment and plan: In setting of sepsis, hypoxia. Continue abx, IVF, trending lactates. The patient is also hyperglycemic which could be contributing. (6) FREDDY (acute kidney injury): Status: Acute Assessment and plan: In setting of sepsis, elevated CPK. Has a lomax. Monitor Cr with IV hydration. (7) Abdominal pain: Assessment and plan: CT abdomen negative. I also see that the patient might have chronic abdominal pain. At this time, We will manage symptomatically, but no further workup is planned. (8) Elevated CPK: Status: Acute Assessment and plan: Will trend with IV hydration. (9) Parkinsonism: Status: Chronic Assessment and plan: Followed by Dr Valladares. Not normally on medications. Will c/s PT, OT, speech. (10) Tardive dyskinesia: Status: Chronic Assessment and plan: Continue tetrabenazine (11) Hx pulmonary embolism: Status: Chronic Assessment and plan: Continue apixaban (12) Hyperglycemia: Status: Acute Assessment and plan: Check A1C. Start SSI. (13) DVT prophylaxis: Status: Resolved Assessment and plan: On chronic apixaban. (14) Discharge planning issues: Status: Resolved Assessment and plan: Full code per conversation of ED provider with the patient's mother. Admit to the ICU. C/s palliative care. Total Critical Care Time 45 minutes. History of Present Illness History of Present Illness Chief Complaint: Cough, runny nose, drooling, feeling warm Narrative: Mr Urias is a 67 year old male with PMHx of PE in the past, appears to still be on apixaban, h/o adenocarcinoma of the lung (treatment status not known at the time of this exam), Parkinsonism, dysarthria/dysphagia, Dementia, alcohol abuse in remission, who is being taken care of by his mother at home, who was brought to [facility] ED today after being noted to develop a cough, a runny nose, to be drooly, and to feel warm to touch. When he arrived to the ER, he was saturating 57% on RA and was cyanotic. He did require suctioning. He was placed on a nonrebreather followed by transitioning to BiPAP due to evidence of both hypoxia and hypercapnia. His exam and imaging did not reveal CHF but did indicate multifocal bilateral pneumonia by both CXR and CT. He tested negative for COVID -19, Influenza, and RSV. The patient was started on empiric vancomycin and ceftriaxone. Admission to the hospitalist service was requested. On my exam, the patient is awake and on BiPAP. His FiO2 is now 30%. He states he is having R-sided abdominal pain. He has no other complaints. Review of Systems All systems reviewed & are unremarkable except as noted in HPI and below PFSH All Active Problems (Updated 11/05/22 @ 18:36 by Natali Hopper MD) Hyperglycemia (Acute) Sepsis (Acute) Hx pulmonary embolism (Chronic) Elevated CPK (Acute) Acute lactic acidosis (Acute) Acute respiratory failure with hypoxia and hypercarbia (Acute) Community acquired pneumonia (Acute) Leukocytosis (Acute) Hypoalbuminemia (Acute) FREDDY (acute kidney injury) (Acute) Parkinsonism (Chronic) Urinary incontinence (Acute) Pseudobulbar affect (Acute) Unintentional weight loss (Acute) Chronic anticoagulation (Chronic) Tardive dyskinesia (Chronic) Cervicalgia (Acute) Anxiety with somatic features (Chronic) chest wall pain, globus sensation, abdominal pain, shortness of breath Asthma-COPD overlap syndrome (Acute) GERD (gastroesophageal reflux disease) (Chronic) Depressive disorder (Chronic) Confabulation (Chronic) Memory loss (Acute) Non compliance w medication regimen (Chronic) Chest wall pain, chronic (Acute) Pharyngoesophageal dysphagia (Acute) Globus sensation (Acute) Vitamin D deficiency (Acute) Hypocalcemia (Chronic) Pulmonary embolism (Chronic 12/20/18) CT Report, Started on Eliquis Constipation (Chronic) Cognitive impairment (Chronic) [facility] progress note: 11/13/18, mild to moderate Chronic alcoholic pancreatitis (Acute) Umbilical hernia (Acute) Tubular adenoma of colon (Acute 05/04/09) 01/19/15 NO adenoma on repeat colonoscopy Malignant neoplasm of unspecified part of right bronchus or lung (Acute 10/04/17) Dyspepsia (Acute 04/26/16) Chronic obstructive pulmonary disease (Chronic 03/22/17) moderately severe 03/07/17: FEV1/FVC 1.82/3.48, 52% (+) Bronchodilator response compared to PFT in 2007, 800cc decline in FVC & 460cc decline in FEV1 Anxiety (Chronic 09/17/14) Alcohol abuse, in remission (Acute 04/26/16) Medical History Abdominal pain Adjustment disorder with anxiety (06/29/17) Alcohol abuse (11/27/12) Anxiety Dyspepsia Epigastric pain History of sore throat Malignant neoplasm of right lung [facility] Palliative care patient Pancreatitis, acute Rash of face Thrush Tubular adenoma of colon Weight loss Surgical History colonoscopy (01/19/15) Also had a decompress colonoscopy with Dr Haresh Vásquez at [facility] on 06/09/18 for significant colon distention seen on CT scan, no prep done,therapeutic, diagnositc, still due for repeat on 01/19/25 History of lung biopsy History of surgery on upper extremity left Status post cataract extraction and insertion of intraocular lens of left eye (11/05/18) Family History Father Essential hypertension Hyperlipidemia Paternal Uncle Heart disease Stroke Cerebral hemorrhage Hypertension Brother Cancer head and neck cancer - smoker Social History Smoking/Tobacco Use Status: Current-Occasional Tobacco Type: smokeless tobacco Tobacco: How many years used: 30 Smokeless tobacco user: chewing tobacco Quit status: not considering quitting Smoking risk assessment performed?: Yes Alcohol Intake: former Drug use: Occasionally Substance use type: marijuana Adopted: No Foster care: No Household members: other Details: [employer] Care Provider 26/12 Housing: other Details: Care Bed at this time Number of Children: 0 Communication Needs: None Do you need help understanding health information?: Often current occupation: not working Current gender identity: male How often do you talk on the phone with friends or family?: three or more times per week How often do you get together with friends or relatives?: three or more times per week Panel score (0-1 are the most socially isolated patients): 1 What type of physical activity do you participate in: none and other Details: started lifting weights Frequency: daily Seatbelt use: always Drive intox or ride w/intox high 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 Meds Allergies and Home Medications Allergies Allergy/AdvReac Type Severity Reaction Status Date / Time No Known Allergies Allergy Verified 11/05/22 09:45 Home Medications Medication Instructions Recorded Confirmed Type inhalational spacing device 10/15/17 10/21/22 Rx (OptiChamber Advantage spacer) fluoxetine 20 mg tablet 20 mg PO DAILY #90 tab-caps 09/16/19 11/05/22 Rx budesonide-formoterol HFA 160 2 inh inhalation BID #3 units 12/03/19 11/05/22 Rx mcg-4.5 mcg/actuation aerosol inhaler (Symbicort) hydroxyzine HCl 25 mg tablet 25 mg PO BID PRN anxiety #180 tabs 06/04/20 11/05/22 Rx albuterol sulfate 90 mcg/actuation 1 inh inhalation ONCE 01/25/21 11/05/22 History aerosol inhaler (Proventil HFA) tiotropium bromide 2.5 2 puff inhalation DAILY COPD #4 01/25/21 11/05/22 Rx mcg/actuation mist for inhalation grams (Spiriva Respimat) clonazepam 1 mg tablet 1 mg PO BID 02/24/21 11/05/22 History cholecalciferol (vitamin D3) 25 1,000 unit PO DAILY #90 caps 12/27/21 11/05/22 Rx mcg (1,000 unit) capsule thiamine HCl (vitamin B1) 100 mg 100 mg PO DAILY #90 tabs 12/30/21 11/05/22 Rx tablet apixaban 5 mg tablet 5 mg PO BID #180 tabs 03/17/22 11/05/22 Rx tetrabenazine 25 mg tablet 25 mg PO BID #180 tabs 09/07/22 11/05/22 Rx Adult diapers, 1-2 per day #28 ea 09/19/22 10/21/22 Rx nutritional supplements 0.09 325 ml PO DAILY #7,800 mL 09/19/22 11/05/22 Rx gram-0.5 kcal/mL oral liquid (Boost Max Men) pantoprazole 40 mg tablet,delayed 40 mg PO DAILY #90 tabs 10/04/22 11/05/22 Rx release neomycin-polymyxin B-dexameth eye 1 applic ophthalmic (eye) QHS 10/21/22 11/05/22 History ointment mirtazapine 45 mg tablet 45 mg PO HS 11/05/22 11/05/22 History Exam Narrative Exam Narrative: General: Middle-aged male who looks cachectic, older than his stated age, A&Ox2, comfortable on BiPAP Neurological: A&Ox2, no obvious focal deficits Psychiatric: Appropriate speech pattern/content as much as I can tell as the patient is on BIPAP. Skin: Visible skin intact HEENT: Atraumatic, normocephalic, EOMI, unable to fully examine oral mucosa due to BiPAP being on, no submandibular or cervical lymphadenopathy, no goiter or JVD Cardiovascular: RRR, no m/r/g Lungs: Diminished breath sounds B posteriorly, R pleural rub Gastrointestinal: soft, tender in RUQ/RLQ Genitourinary: Has a lomax Extremities: no edema BLEs, 2+ pedal pulses B, no cyanosis, ?clubbing, onychomycosis, no lesions on B feet Results Imaging Additional studies: CXR; Findings suspicious for multifocal pneumonia with bilateral opacities. CT/CTA chest: 1. ? No evidence of pulmonary embolus to the segmental level. 2. ? No aneurysm of the aorta. 3. ? No dissection of the aorta. 4. ? 5 x 2 cm wedge of opacity in the right upper lobe. Previously it measured 5.5 by 2.3 cm so it is decreasing in size. Series 8, image 116. 5. ? Patchy bilateral ground-glass opacities in the right middle lobe and lingula and both lower lobes were not present on the prior study and may represent multifocal pneumonia.. CT abdomen/pelvis w/o contrast: 1. ? Moderate left worse than right pneumonia again seen. 2. ? Lomax catheter in a decompressed urinary bladder. 3. ? Additional findings as described. Labs 11/05/22 09:35 11/05/22 09:35 Labs: Laboratory Results - last 24 hr 11/05/22 11/05/22 11/05/22 09:35 09:35 09:35 WBC RBC Hgb Hct MCV MCH MCHC RDW Plt Count MPV Immature Gran % Neutrophils % Band Neutrophils % Lymphocytes % Monocytes % Eosinophils % Basophils % Nucleated RBC % Absolute Neutrophils Absolute Lymphocytes Absolute Monocytes Absolute Eosinophils Absolute Basophils RBC Morphology D-Dimer VBG pH VBG pCO2 VBG pO2 VBG HCO3 VBG Total CO2 VBG O2 Saturation VBG Base Excess VBG Lactate 5.0 H* Sodium 140 Potassium 3.6 Chloride 101 Carbon Dioxide 24.9 Anion Gap 14.1 H BUN 22 H Creatinine 1.6 H Est GFR (CKD-EPI 2020) 46.64 Glucose 260 H Calcium 8.7 Magnesium 2.3 Total Bilirubin 0.8 AST 35 ALT 18 Alkaline Phosphatase 111 Creatine Kinase 989 H Troponin I < 50 NT-Pro-B Natriuret Pep 126 Total Protein 8.1 Albumin 3.0 L Urine Color Urine Clarity Urine pH Ur Specific [place] Urine Protein Urine Ketones Urine Blood Urine Nitrite Urine Bilirubin Urine Urobilinogen Ur Leukocyte Esterase Urine RBC Urine WBC Ur Epithelial Cells Urine Crystals Urine Bacteria Urine Casts Urine Mucus Ur Culture Indicated? Urine Glucose Salicylates < 2.8 Acetaminophen < 2 Ethyl Alcohol < 3.0 COVID-19 Source SARS-CoV-2 (PCR) Influenza Type A (PCR) Influenza Type B (PCR) RSV (PCR) 11/05/22 11/05/22 11/05/22 09:35 09:35 09:35 WBC 28.06 H* RBC 4.96 Hgb 14.6 Hct 45.1 MCV 91 MCH 29.4 MCHC 32.4 RDW 11.7 L Plt Count 359 MPV 10.0 Immature Gran % See Differential Neutrophils % 86.0 Band Neutrophils % 6 Lymphocytes % 4.0 Monocytes % 4.0 Eosinophils % 0.0 Basophils % 0.0 Nucleated RBC % 0.0 Absolute Neutrophils 25.82 H Absolute Lymphocytes 1.12 L Absolute Monocytes 1.12 H Absolute Eosinophils 0.00 Absolute Basophils 0.00 RBC Morphology Normal D-Dimer 1083 H VBG pH 7.23 L VBG pCO2 57 H VBG pO2 42 VBG HCO3 24 VBG Total CO2 23 L VBG O2 Saturation 69 VBG Base Excess -3 L VBG Lactate Sodium Potassium Chloride Carbon Dioxide Anion Gap BUN Creatinine Est GFR (CKD-EPI 2020) Glucose Calcium Magnesium Total Bilirubin AST ALT Alkaline Phosphatase Creatine Kinase Troponin I NT-Pro-B Natriuret Pep Total Protein Albumin Urine Color Urine Clarity Urine pH Ur Specific [place] Urine Protein Urine Ketones Urine Blood Urine Nitrite Urine Bilirubin Urine Urobilinogen Ur Leukocyte Esterase Urine RBC Urine WBC Ur Epithelial Cells Urine Crystals Urine Bacteria Urine Casts Urine Mucus Ur Culture Indicated? Urine Glucose Salicylates Acetaminophen Ethyl Alcohol COVID-19 Source SARS-CoV-2 (PCR) Influenza Type A (PCR) Influenza Type B (PCR) RSV (PCR) 11/05/22 11/05/22 11/05/22 09:41 10:30 11:22 WBC RBC Hgb Hct MCV MCH MCHC RDW Plt Count MPV Immature Gran % Neutrophils % Band Neutrophils % Lymphocytes % Monocytes % Eosinophils % Basophils % Nucleated RBC % Absolute Neutrophils Absolute Lymphocytes Absolute Monocytes Absolute Eosinophils Absolute Basophils RBC Morphology D-Dimer VBG pH VBG pCO2 VBG pO2 VBG HCO3 VBG Total CO2 VBG O2 Saturation VBG Base Excess VBG Lactate Sodium Potassium Chloride Carbon Dioxide Anion Gap BUN Creatinine Est GFR (CKD-EPI 2020) Glucose Calcium Magnesium Total Bilirubin AST ALT Alkaline Phosphatase Creatine Kinase Troponin I < 50 NT-Pro-B Natriuret Pep Total Protein Albumin Urine Color Yellow Urine Clarity Clear Urine pH 6.0 Ur Specific [place] 1.025 Urine Protein 30 H Urine Ketones 40 H Urine Blood Negative Urine Nitrite Negative Urine Bilirubin Small H Urine Urobilinogen 0.2 Ur Leukocyte Esterase Negative Urine RBC 0-2 Urine WBC 0-2 Ur Epithelial Cells Few Urine Crystals Negative Urine Bacteria Negative Urine Casts 5-10 Hyaline Urine Mucus Trace Ur Culture Indicated? No Urine Glucose Negative Salicylates Acetaminophen Ethyl Alcohol COVID-19 Source Nasopharynx SARS-CoV-2 (PCR) Negative Influenza Type A (PCR) Negative Influenza Type B (PCR) Negative RSV (PCR) Negative 11/05/22 11/05/22 11/05/22 11:22 11:22 11:22 WBC RBC Hgb Hct MCV MCH MCHC RDW Plt Count MPV Immature Gran % Neutrophils % Band Neutrophils % Lymphocytes % Monocytes % Eosinophils % Basophils % Nucleated RBC % Absolute Neutrophils Absolute Lymphocytes Absolute Monocytes Absolute Eosinophils Absolute Basophils RBC Morphology D-Dimer VBG pH 7.36 VBG pCO2 44 VBG pO2 101 VBG HCO3 25 VBG Total CO2 22 L VBG O2 Saturation 98 VBG Base Excess -1 VBG Lactate 3.6 H* Sodium Potassium Chloride Carbon Dioxide Anion Gap BUN Creatinine Est GFR (CKD-EPI 2020) Glucose Calcium Magnesium Total Bilirubin AST ALT Alkaline Phosphatase Creatine Kinase 845 H Troponin I NT-Pro-B Natriuret Pep Total Protein Albumin Urine Color Urine Clarity Urine pH Ur Specific [place] Urine Protein Urine Ketones Urine Blood Urine Nitrite Urine Bilirubin Urine Urobilinogen Ur Leukocyte Esterase Urine RBC Urine WBC Ur Epithelial Cells Urine Crystals Urine Bacteria Urine Casts Urine Mucus Ur Culture Indicated? Urine Glucose Salicylates Acetaminophen Ethyl Alcohol COVID-19 Source SARS-CoV-2 (PCR) Influenza Type A (PCR) Influenza Type B (PCR) RSV (PCR) Last Vital Signs Temp 38.2 C H 11/05/22 09:52 Pulse 83 11/05/22 11:55 Resp 29 H 11/05/22 11:55 BP 92/66 L 11/05/22 10:01 Pulse Ox 98 11/05/22 11:55 Time Spent Time spent with Patient: 40-54 minutes Time was spent: preparing to see the patient(eg.review tests), obtaining and/or reviewing separately otained hiistory, ordering medications,tests, procedures, referring, communicating with other health primary care nurse practitioner, indepentently interpreting results, counseling the patient and care coordination
[2022-11-05 12:23] LABS: Lab Add On Test DONE
[2022-11-05 12:34] LABS: C-Reactive Protein 21.39 mg/dL (0.0-0.3)
[2022-11-05 12:57] LABS: Procalcitonin 0.4 ng/mL
[2022-11-05] MEDS: Omnipaque 350 MG/ML 100 ML BTL IJ (13:26)
[2022-11-05] MEDS: Normal Saline - Diluent 50 ML VIAL IJ (13:27)
--- NOTE | 2022-11-05 13:48 | DI.VRAD_ITS ---
PROCEDURE INFORMATION: Exam: CTA Chest With Contrast Exam date and time: 11/05/2022 1:18 PM Age: 67 years old Clinical indication: Shortness of breath and other: +d-dimer TECHNIQUE: Imaging protocol: Computed tomographic angiography of the chest with contrast. Exam focused on the arteries. 3D rendering (Not supervised by radiologist): MIP and/or 3D reconstructed images were created by the technologist. Contrast material: [id number]; Contrast volume: 78 ml; Contrast route: INTRAVENOUS (IV); COMPARISON: CT CHEST PE CTA 02/10/2020 12:48 PM FINDINGS: Pulmonary arteries: No evidence of pulmonary embolus to the segmental level. Aorta: No aneurysm of the aorta. No dissection of the aorta. Lungs: 5 x 2 cm wedge of opacity in the right upper lobe. Previously it measured 5.5 by 2.3 cm so it is decreasing in size. Series 8, image 116. Patchy bilateral ground-glass opacities in the right middle lobe and lingula and both lower lobes were not present on the prior study and may represent multifocal pneumonia.. Pleural spaces: Unremarkable. No pneumothorax. No pleural effusion. Heart: Unremarkable. No cardiomegaly. No pericardial effusion. Lymph nodes: Unremarkable. No enlarged lymph nodes. Bones/joints: Unremarkable. No acute fracture. Soft tissues: Unremarkable. IMPRESSION: 1. No evidence of pulmonary embolus to the segmental level. 2. No aneurysm of the aorta. 3. No dissection of the aorta. 4. 5 x 2 cm wedge of opacity in the right upper lobe. Previously it measured 5.5 by 2.3 cm so it is decreasing in size. Series 8, image 116. 5. Patchy bilateral ground-glass opacities in the right middle lobe and lingula and both lower lobes were not present on the prior study and may represent multifocal pneumonia.. Dictated and Authenticated by: Damián Guevara MD. Ordering:ALICE Michaels MD
[2022-11-05 14:19] LABS: Lactate 3.7 mmol/L (0.6-1.4)
--- NOTE | 2022-11-05 18:00 | DI.VRAD_ITS ---
Addendum created by Madeline Chase MD on 11/05/2022 6:01:32 PM EDT: Correction to the findings only. Lungs: Should read : Moderate [id number] multifocal airspace disease new since previous CT abdomen pelvis however similar to same day CT thorax. Initial report created on 11/05/2022 5:59:52 PM EDT: PROCEDURE INFORMATION: Exam: CT Abdomen And Pelvis Without Contrast Exam date and time: 11/05/2022 5:31 PM Age: 67 years old Clinical indication: Condition or disease; Other: Acute hypoxic/respiratory failure TECHNIQUE: Imaging protocol: Computed tomography of the abdomen and pelvis without contrast. COMPARISON: CT CHEST/ABD/PEL W 04/01/2019 9:40 AM CTA thorax November 05, 2022 FINDINGS: Lungs: New moderate [id number] multifocal airspace disease. Liver: No hepatic masses on noncontrast imaging. Gallbladder and bile ducts: No calcified stones. No ductal dilation. Pancreas: No gross pathology in the pancreas on noncontrast imaging. Spleen: No splenomegaly or focal lesions. Adrenal glands: No mass. Kidneys and ureters: Contrast in the collecting systems. Limited sensitivity for stones. No right hydronephrosis. No left hydronephrosis. Stomach and bowel: No gross acute pathology in small bowel or colon allowing for motion and noncontrast technique. Appendix: No evidence of appendicitis. Intraperitoneal space: No free air. No significant fluid collection. Vasculature: No abdominal aortic aneurysm. Lymph nodes: No significantly enlarged lymph nodes. Urinary bladder: Noel catheter in a decompressed urinary bladder. Contrast in the urinary bladder, under distended, wall not optimally assessed. Reproductive: Unremarkable as visualized. Bones/joints: The bones are demineralized. Degenerative changes in the spine. Degenerative mild retrolisthesis of L4 relative to L3 and L5. Left L5 pars defect. No acute fracture or subluxation. Soft tissues: No suspicious lesions. Other findings: Motion artifact in the abdomen. IMPRESSION: 1. Moderate left worse than right pneumonia again seen. 2. Noel catheter in a decompressed urinary bladder. 3. Additional findings as described. Dictated and Authenticated by: Madeline Chase MD. Ordering:KIM Hurst MD
[2022-11-05] MEDS: Albuterol/Ipratropium 3 ML UPD VIAL UPD (18:04)
[2022-11-05 18:22] LABS: Lactate 3.4 mmol/L (0.6-1.4)
--- NOTE | 2022-11-05 18:38 | ED.PROG_ITS ---
Date of service: 11/05/22 Time of Service: 18:38 Medical Decision Making Patient was ultimately hospitalized with a hospitalist team at [facility]. Discharge Plan Discharge Details Chief Complaint: RespSymp Clinical Impression: Acute lactic acidosis, Acute respiratory failure with hypoxia and hypercarbia, Community acquired pneumonia, Leukocytosis, Hypoalbuminemia, FREDDY (acute kidney injury) Admit Date/Time: 11/05/22 11:52 Admit Provider: Natali Hopper Attending Provider: Natali Hopper Primary Care Provider: Glenn Ybarra ED Provider: Brando Singh
[2022-11-05] MEDS: DOXYCYCLINE 100 MG in Normal Saline 100 ML IVPB (18:57)
[2022-11-05] MEDS: Insulin Aspart 300 UNITS/3 ML PEN SC (20:42)
[2022-11-05] MEDS: guaiFENesin 600 MG TABCR PO (20:47)
[2022-11-05] MEDS: clonazePAM 1 MG TAB PO (20:47)
[2022-11-05] MEDS: Apixaban 5 MG TAB PO (20:47)
[2022-11-05] MEDS: Budesonide/Formoterol 160/4.5 6 GM 60 PUFF INH IH (20:47)
[2022-11-05] MEDS: Mirtazapine 15 MG TAB 45 MG PO (22:33)
[2022-11-06] VITALS (51 sets, daily range): BP systolic 81–130; BP diastolic 46–79; PULSE 71–100; RESP 2–33; TEMP 36.6–37.4; O2SAT 88–96
[2022-11-06] MEDS: Insulin Aspart 300 UNITS/3 ML PEN SC ×2 (00:08→17:26)
[2022-11-06] MEDS: Albuterol/Ipratropium 3 ML UPD VIAL UPD ×4 (00:09→17:06)
[2022-11-06] MEDS: Normal Saline Flush 10 ML SYR IVP ×2 (00:10→19:49)
[2022-11-06 06:02] LABS: Lactate 0.8 mmol/L (0.6-1.4)
[2022-11-06 06:06] LABS: Abs Immature Grans 0.02 10^3/uL (0.0-0.06); Absolute Basophil Count 0.02 10^3/uL (0.0-0.2); Absolute Eosinophil Count 0.01 10^3/uL (0.0-0.7); Absolute Monocyte Count 0.52 10^3/uL (0.1-0.8); Absolute Neutrophil Count 7.95 10^3/uL (1.2-6.7); Basophils % 0.2; Eosinophils % 0.1; HCT 34.1 % (40.0-50.0); HGB 11.2 g/dL (13.5-17.5); Immature Grans % 0.2; Lymphocytes % 8.6; MCH 29.2 pg (27.0-33.0); MCHC 32.8 % (32.0-36.0); MCV 89 fL (80-95); MPV 9.8 fL (8.0-11.0); Monocytes % 5.6; Neutrophils % 85.3; Platelet Count 260 10^3/uL (130-400); RBC 3.84 10^6/uL (4.36-5.78); RDW 11.8 % (11.8-14.1); WBC 9.32 10^3/uL (4.4-10.8)
[2022-11-06] MEDS: DOXYCYCLINE 100 MG in Normal Saline 100 ML IVPB ×2 (06:21→17:28)
[2022-11-06 06:24] LABS: Hemoglobin A1C 5.4 % (<5.7)
[2022-11-06 06:33] LABS: Anion Gap 6.5 mmol/L (3-11); BUN 21 mg/dL (7-18); CO2 27.5 mmol/L (21.0-32.0); Chloride 108 mmol/L (98-107); Creatine Kinase 513 U/L (39-308); Estimated GFR 81.98 (mL/min/1.73m2); Glucose 93 mg/dL (74-106); Magnesium 2.2 mg/dL (1.8-2.4); Sodium 142 mmol/L (136-145); TSH (W/Ref FT4) 0.53 uIU/mL (0.36-3.74)
[2022-11-06 07:33] LABS: Lab Add On Test DONE
[2022-11-06] MEDS: Lactated Ringers 1,000 ML 250 ML IV (07:53)
[2022-11-06 08:03] LABS: C-Reactive Protein > 25.00 mg/dL (0.0-0.3)
[2022-11-06] MEDS: Lactated Ringers 1,000 ML 100 ML IV ×2 (08:20→16:01)
[2022-11-06] MEDS: Thiamine 100 MG TAB PO (08:50)
[2022-11-06] MEDS: cefTRIAXone 2 GM/50 ML BAG IVPB (09:00)
[2022-11-06] MEDS: clonazePAM 1 MG TAB PO ×2 (09:18→19:49)
[2022-11-06] MEDS: predniSONE 20 MG TAB 40 MG PO (09:18)
[2022-11-06] MEDS: FLUoxetine 20 MG CAP PO (09:18)
[2022-11-06] MEDS: Pantoprazole 40 MG TABCR PO (09:18)
[2022-11-06] MEDS: guaiFENesin 600 MG TABCR PO ×2 (09:18→19:49)
[2022-11-06] MEDS: Apixaban 5 MG TAB PO ×2 (09:18→19:49)
[2022-11-06] MEDS: Cholecalciferol (Vitamin D3) 1,000 UNIT TAB 1000 UNITS PO (09:18)
[2022-11-06] MEDS: Budesonide/Formoterol 160/4.5 6 GM 60 PUFF INH IH ×2 (09:24→19:49)
[2022-11-06] MEDS: Tiotropium Bromide-Respimat 10 PUFF INH 2 PUFF IH (09:24)
[2022-11-06] MEDS: VANCOMYCIN/WATER (PEG) 1 GM/200 ML BAG IVPB (10:18)
--- NOTE | 2022-11-06 10:30 | PGE_ITS ---
Date of Service Date of service: 11/06/22 Time of Service: 10:30 Assessment and Plan Assessment and plan (1) Sepsis: Status: Acute Assessment and plan: Due to PNA, present on admission. Blood cultures and pneumonia studies are pending. Continue empiric vancomcyin, ceftriaxone, doxycycline. Obtain a MRSA nares. Lactates normalized. (2) Acute respiratory failure with hypoxia and hypercarbia: Status: Acute Assessment and plan: Due to bilateral pneumonia present on admission in addition to a possible underlying COPD exacerbation. Continue BiPAP therapy as tolerated. Continue steroids. Encourage pulmonary toilet. (3) Community acquired pneumonia: Status: Acute Assessment and plan: Abx as above Await pneumonia studies. Obtain a speech therapy consult. (4) Asthma-COPD overlap syndrome: Status: Acute Assessment and plan: As above. Would continue steroids as well. (5) Acute lactic acidosis: Status: Resolved Assessment and plan: Resolved. Continue abx, IVF. (6) FREDDY (acute kidney injury): Status: Resolved Assessment and plan: In setting of sepsis, elevated CPK. Has a pena. Monitor Cr with IV hydration. (7) Abdominal pain: Assessment and plan: CT abdomen negative. Likely chronic pain, No further workup is planned. (8) Elevated CPK: Status: Acute Assessment and plan: Improved. Will continue to monitor. No signs of rhabdomyolysis. (9) Parkinsonism: Status: Chronic Assessment and plan: Followed by Dr Valladares. Not normally on medications. Will c/s PT, OT, speech. (10) Tardive dyskinesia: Status: Chronic Assessment and plan: Continue tetrabenazine (11) Hx pulmonary embolism: Status: Chronic Assessment and plan: Continue apixaban (12) Hyperglycemia: Status: Acute Assessment and plan: A1C 5.4. Continue SSI. (13) DVT prophylaxis: Status: Resolved Assessment and plan: On chronic apixaban. (14) Discharge planning issues: Status: Resolved Assessment and plan: Full code. Keep in ICU. Await palliative care consult Total Critical Care Time 30 minutes. Subjective Subjective Interval history since last seen: Mr Urias feels better this morning, but did request that the BiPAP be replaced on him this morning. He had been off of it since yesterday evening and on 4-5L of O2 with O2 sats in the 83-87% range. He is now on BiPAP 05/10 with FiO2 of 30%. Denies dizziness, CP, SOB on BiPAP, nausea. SBPs in 80s-90s systolic overnight, but up to 105/67 after IVF bolus of 250 cc of LR. Exam Narrative Exam Narrative: General: Middle-aged male On BiPAP, A&Ox2. HEENT: EOMI, MMM Cardiovascular: RRR, no m/r/g Lungs: Diminished breath sounds B posteriorly, I do not hear a R pleural rub today Gastrointestinal: soft, nontender, nondistended Genitourinary: Has a pena Extremities: no edema BLEs, 2+ pedal pulses B, no cyanosis, B feet are warm. Objective Last Vital Signs Temp 37.2 C 11/06/22 04:22 Pulse 83 11/06/22 10:01 Resp 24 11/06/22 10:01 BP 105/67 11/06/22 10:01 Pulse Ox 95 11/06/22 10:01 Laboratory Results - last 24 hr 11/05/22 11/05/22 11/05/22 09:35 09:35 09:35 WBC RBC Hgb Hct MCV MCH MCHC RDW Plt Count MPV Immature Gran % Neutrophils % Lymphocytes % Monocytes % Eosinophils % Basophils % Nucleated RBC % Absolute Neutrophils Absolute Lymphocytes Absolute Monocytes Absolute Eosinophils Absolute Basophils D-Dimer 1083 H VBG pH VBG pCO2 VBG pO2 VBG HCO3 VBG Total CO2 VBG O2 Saturation VBG Base Excess VBG Lactate Sodium Potassium Chloride Carbon Dioxide Anion Gap BUN Creatinine Est GFR (CKD-EPI 2020) Glucose Hemoglobin A1c Calcium Magnesium Creatine Kinase Troponin I C-Reactive Protein Procalcitonin 0.4 TSH Urine Color Urine Clarity Urine pH Ur Specific [place] Urine Protein Urine Ketones Urine Blood Urine Nitrite Urine Bilirubin Urine Urobilinogen Ur Leukocyte Esterase Urine RBC Urine WBC Ur Epithelial Cells Urine Crystals Urine Bacteria Urine Casts Urine Mucus Ur Culture Indicated? Urine Glucose Add-On Test Request DONE 11/05/22 11/05/22 11/05/22 09:35 10:30 11:22 WBC RBC Hgb Hct MCV MCH MCHC RDW Plt Count MPV Immature Gran % Neutrophils % Lymphocytes % Monocytes % Eosinophils % Basophils % Nucleated RBC % Absolute Neutrophils Absolute Lymphocytes Absolute Monocytes Absolute Eosinophils Absolute Basophils D-Dimer VBG pH VBG pCO2 VBG pO2 VBG HCO3 VBG Total CO2 VBG O2 Saturation VBG Base Excess VBG Lactate Sodium Potassium Chloride Carbon Dioxide Anion Gap BUN Creatinine Est GFR (CKD-EPI 2020) Glucose Hemoglobin A1c Calcium Magnesium Creatine Kinase Troponin I < 50 C-Reactive Protein 21.39 H Procalcitonin TSH Urine Color Yellow Urine Clarity Clear Urine pH 6.0 Ur Specific [place] 1.025 Urine Protein 30 H Urine Ketones 40 H Urine Blood Negative Urine Nitrite Negative Urine Bilirubin Small H Urine Urobilinogen 0.2 Ur Leukocyte Esterase Negative Urine RBC 0-2 Urine WBC 0-2 Ur Epithelial Cells Few Urine Crystals Negative Urine Bacteria Negative Urine Casts 5-10 Hyaline Urine Mucus Trace Ur Culture Indicated? No Urine Glucose Negative Add-On Test Request 11/05/22 11/05/22 11/05/22 11:22 11:22 11:22 WBC RBC Hgb Hct MCV MCH MCHC RDW Plt Count MPV Immature Gran % Neutrophils % Lymphocytes % Monocytes % Eosinophils % Basophils % Nucleated RBC % Absolute Neutrophils Absolute Lymphocytes Absolute Monocytes Absolute Eosinophils Absolute Basophils D-Dimer VBG pH 7.36 VBG pCO2 44 VBG pO2 101 VBG HCO3 25 VBG Total CO2 22 L VBG O2 Saturation 98 VBG Base Excess -1 VBG Lactate 3.6 H* Sodium Potassium Chloride Carbon Dioxide Anion Gap BUN Creatinine Est GFR (CKD-EPI 2020) Glucose Hemoglobin A1c Calcium Magnesium Creatine Kinase 845 H Troponin I C-Reactive Protein Procalcitonin TSH Urine Color Urine Clarity Urine pH Ur Specific [place] Urine Protein Urine Ketones Urine Blood Urine Nitrite Urine Bilirubin Urine Urobilinogen Ur Leukocyte Esterase Urine RBC Urine WBC Ur Epithelial Cells Urine Crystals Urine Bacteria Urine Casts Urine Mucus Ur Culture Indicated? Urine Glucose Add-On Test Request 11/05/22 11/05/22 11/06/22 14:10 18:00 05:55 WBC RBC Hgb Hct MCV MCH MCHC RDW Plt Count MPV Immature Gran % Neutrophils % Lymphocytes % Monocytes % Eosinophils % Basophils % Nucleated RBC % Absolute Neutrophils Absolute Lymphocytes Absolute Monocytes Absolute Eosinophils Absolute Basophils D-Dimer VBG pH VBG pCO2 VBG pO2 VBG HCO3 VBG Total CO2 VBG O2 Saturation VBG Base Excess VBG Lactate 3.7 H* 3.4 H* Sodium 142 Potassium 4.0 Chloride 108 H Carbon Dioxide 27.5 Anion Gap 6.5 BUN 21 H Creatinine 1.0 Est GFR (CKD-EPI 2020) 81.98 Glucose 93 Hemoglobin A1c Calcium 8.0 L Magnesium 2.2 Creatine Kinase 513 H Troponin I C-Reactive Protein Procalcitonin TSH 0.53 Urine Color Urine Clarity Urine pH Ur Specific [place] Urine Protein Urine Ketones Urine Blood Urine Nitrite Urine Bilirubin Urine Urobilinogen Ur Leukocyte Esterase Urine RBC Urine WBC Ur Epithelial Cells Urine Crystals Urine Bacteria Urine Casts Urine Mucus Ur Culture Indicated? Urine Glucose Add-On Test Request 11/06/22 11/06/22 11/06/22 05:55 05:55 05:55 WBC 9.32 RBC 3.84 L Hgb 11.2 L D Hct 34.1 L MCV 89 MCH 29.2 MCHC 32.8 RDW 11.8 Plt Count 260 MPV 9.8 Immature Gran % 0.2 Neutrophils % 85.3 Lymphocytes % 8.6 Monocytes % 5.6 Eosinophils % 0.1 Basophils % 0.2 Nucleated RBC % 0.0 Absolute Neutrophils 7.95 H Absolute Lymphocytes 0.80 L Absolute Monocytes 0.52 Absolute Eosinophils 0.01 Absolute Basophils 0.02 D-Dimer VBG pH VBG pCO2 VBG pO2 VBG HCO3 VBG Total CO2 VBG O2 Saturation VBG Base Excess VBG Lactate 0.8 Sodium Potassium Chloride Carbon Dioxide Anion Gap BUN Creatinine Est GFR (CKD-EPI 2020) Glucose Hemoglobin A1c 5.4 Calcium Magnesium Creatine Kinase Troponin I C-Reactive Protein Procalcitonin TSH Urine Color Urine Clarity Urine pH Ur Specific [place] Urine Protein Urine Ketones Urine Blood Urine Nitrite Urine Bilirubin Urine Urobilinogen Ur Leukocyte Esterase Urine RBC Urine WBC Ur Epithelial Cells Urine Crystals Urine Bacteria Urine Casts Urine Mucus Ur Culture Indicated? Urine Glucose Add-On Test Request 11/06/22 11/06/22 05:55 05:55 WBC RBC Hgb Hct MCV MCH MCHC RDW Plt Count MPV Immature Gran % Neutrophils % Lymphocytes % Monocytes % Eosinophils % Basophils % Nucleated RBC % Absolute Neutrophils Absolute Lymphocytes Absolute Monocytes Absolute Eosinophils Absolute Basophils D-Dimer VBG pH VBG pCO2 VBG pO2 VBG HCO3 VBG Total CO2 VBG O2 Saturation VBG Base Excess VBG Lactate Sodium Potassium Chloride Carbon Dioxide Anion Gap BUN Creatinine Est GFR (CKD-EPI 2020) Glucose Hemoglobin A1c Calcium Magnesium Creatine Kinase Troponin I C-Reactive Protein > 25.00 H Procalcitonin TSH Urine Color Urine Clarity Urine pH Ur Specific [place] Urine Protein Urine Ketones Urine Blood Urine Nitrite Urine Bilirubin Urine Urobilinogen Ur Leukocyte Esterase Urine RBC Urine WBC Ur Epithelial Cells Urine Crystals Urine Bacteria Urine Casts Urine Mucus Ur Culture Indicated? Urine Glucose Add-On Test Request DONE Multi-Disciplinary Checklist Lines/Tubes CENTRAL LINE: no ARTERIAL LINE: no PENA: yes, Pena Day#: 1 ENDOTRACHEAL TUBE: no ICU Maintenance GLUCOSE 140-180mg/dL: no, Reason/Intervention: Not diabetic NUTRITION AT GOAL: yes PRESSURE ULCER: no RESTRAINTS: no ANTIBIOTICS(if yes, consider Stewardship): Yes Social Issues FAMILY UPDATED: yes PT/OT: yes GOALS/DISPOSITION/AUTISM MOTOR SPECIALIST: yes CODE STATUS: Full Prophylaxis DVT PROPHYLAXIS: yes GI PROPHYLAXIS: yes, Indication: on steroids Time Spent with Patient Time Spent with Patient: 25-34 minutes Time was spent: preparing to see the patient(eg.review tests), obtaining and/or reviewing separately otained hiistory, ordering medications,tests, procedures, referring, communicating with other health patient care specialist, indepentently interpreting results, counseling the patient and care coordination
--- NOTE | 2022-11-06 12:17 | RESPIRATORY ---
RT Assessment Start: 11/06/22 11:24 Freq: .q shift and prn Status: Active Protocol: Document 11/06/22 11:57 YUNIOR (Rec: 11/06/22 12:11 YUNIOR [id number]) RT Assessment Pulmonary History Pulmonary History COPD Smoking History Smoking/Tobacco Use Status Former Tobacco Use Tobacco: How many years used 34 Tobacco Type cigarettes Cigarettes per Day 10 Years smoked 34 OXYGEN HISTORY: Supplemental O2 At Rest 0 With Exertion 0 CPAP Can use home machine No BIPAP Can you home machine No Trilogy/AVAPS Can use home machine No Current Respiratory Symptoms Current Respiratory Symptoms Shortness of breath,Other Activity Activity Level goes fishing and walks around house Respiratory Breath Sounds Breath Sounds Faint wheezing or rhonci, decreased sounds throughout Response No change Pulse Rate <100 Respiratory Rate 26-32 Shortness of Breath None Respiratory Therapy Score Total 4 Assessment and Plan RT Treatment Protocol Bronchodilator Aerosol Therapy Protocol,Lung Expansion Therapy Protocol,Bronchial Hygiene Therapy Protocol Note Current regiment to stay the same
--- NOTE | 2022-11-06 12:25 | INITIAL_ITS ---
Date of service: 11/06/22 Time of Service: 12:27 Care Management Initial Assmt Initial Assessment REASON FOR HOSPITALIZATION:: Acute hypoxic respiratory failure, multi focal pneumonia PREVIOUS FUNCTIONAL STATUS/SOCIAL/FAMILY SUPPORTS:: Iggy lives in an apartment in [facility] with his parents, Jose and Vee. Iggy's parents are his primary caregivers, although he has some support from his brother. Home health supports him for one hour a day, five days a week. CURRENT FUNCTIONAL STATUS:: Iggy was sitting up in a chair visiting with his parents when CM met with him. He stated that he is feeling better today. He is on Bipap at 30% FiO2. At baseline, his mother confirmed that he does not have home O2. She expressed concern about him needing home O2. CM discussed this with her, stating that the goal would be for him to wean off of supplemental O2 prior to discharge, but in some cases patients require home O2. CM asked about supports in the community, and Vee stated that her and [place] are the primary caregivers, and have some support from their other son. She also stated that Iggy has a dependency case manager at [facility], Ellie, and receives five hours of HH support weekly. Vee stated that at times it can be challenging to care for Iggy, but they plan to keep him home as long as they can. Per chart review, AFC homes have been explored. Vee stated that they have not been able to find him an appropriate home/caregiver. PT, OT, and Palliative have been consulted. CM will continue to follow. ADVANCE DIRECTIVES:: On file, Vee and Jose listed as HCAs. Has patient been provided with info about the portal/API?: Yes Did the patient sign up for the portal?: No CODE STATUS:: Full Code INSURANCE COVERAGE / FINANCIAL ISSUES:: [employer] CURRENT HOME/COMMUNITY SERVICES/EQUIPMENT:: HH aids five hrs/week; Associate Technician Ellie Jay; [employer] PRIMARY CARE PHYSICIAN:: Glenn Ybarra POTENTIAL DISCHARGE NEEDS:: Evaluations for further needs, follow up appointments PATIENT/FAMILY EDUCATION NEEDS:: Review discharge instructions and limitations, discussion of self care needs including ask me three. ANTICIPATED BARRIERS TO DISCHARGE:: None identified. TRANSPORTATION:: Via private vehicle by family PLAN:: Anticipate Iggy will return home once medically cleared. His parents will drive him home via private vehicle. He will follow up with his PCP and discharge plan of care. CM will continue to follow. PFSH All Active Problems (Updated 11/06/22 @ 10:53 by Natali Hopper MD) Hyperglycemia (Acute) Sepsis (Acute) Hx pulmonary embolism (Chronic) Elevated CPK (Acute) Acute respiratory failure with hypoxia and hypercarbia (Acute) Community acquired pneumonia (Acute) Leukocytosis (Acute) Hypoalbuminemia (Acute) Parkinsonism (Chronic) Urinary incontinence (Acute) Pseudobulbar affect (Acute) Unintentional weight loss (Acute) Chronic anticoagulation (Chronic) Tardive dyskinesia (Chronic) Cervicalgia (Acute) Anxiety with somatic features (Chronic) chest wall pain, globus sensation, abdominal pain, shortness of breath Asthma-COPD overlap syndrome (Acute) GERD (gastroesophageal reflux disease) (Chronic) Depressive disorder (Chronic) Confabulation (Chronic) Memory loss (Acute) Non compliance w medication regimen (Chronic) Chest wall pain, chronic (Acute) Pharyngoesophageal dysphagia (Acute) Globus sensation (Acute) Vitamin D deficiency (Acute) Hypocalcemia (Chronic) Pulmonary embolism (Chronic 12/20/18) CT Report, Started on Eliquis Constipation (Chronic) Cognitive impairment (Chronic) [facility] progress note: 11/13/18, mild to moderate Chronic alcoholic pancreatitis (Acute) Umbilical hernia (Acute) Tubular adenoma of colon (Acute 05/04/09) 01/19/15 NO adenoma on repeat colonoscopy Malignant neoplasm of unspecified part of right bronchus or lung (Acute 10/04/17) Dyspepsia (Acute 04/26/16) Chronic obstructive pulmonary disease (Chronic 03/22/17) moderately severe 03/07/17: FEV1/FVC 1.82/3.48, 52% (+) Bronchodilator response compared to PFT in 2007, 800cc decline in FVC & 460cc decline in FEV1 Anxiety (Chronic 09/17/14) Alcohol abuse, in remission (Acute 04/26/16) Medical History Abdominal pain Adjustment disorder with anxiety (06/29/17) Alcohol abuse (11/27/12) Anxiety Dyspepsia Epigastric pain History of sore throat Malignant neoplasm of right lung [facility]ena Palliative care patient Pancreatitis, acute Rash of face Thrush Tubular adenoma of colon Weight loss Surgical History colonoscopy (01/19/15) Also had a decompress colonoscopy with Dr Haresh Vásquez at [facility] on 06/09/18 for significant colon distention seen on CT scan, no prep done,therapeutic, diagnositc, still due for repeat on 01/19/25 History of lung biopsy History of surgery on upper extremity left Status post cataract extraction and insertion of intraocular lens of left eye (11/05/18) Family History Father Essential hypertension Hyperlipidemia Paternal Uncle Heart disease Stroke Cerebral hemorrhage Hypertension Brother Cancer head and neck cancer - smoker Social History Smoking/Tobacco Use Status: Former Tobacco Use Quit Date: 06/05/98 Tobacco: How many years used: 34 Smokeless tobacco user: chewing tobacco Quit status: not considering quitting Smoking risk assessment performed?: Yes Alcohol Intake: former Drug use: Occasionally Substance use type: marijuana Adopted: No Foster care: No Household members: other Details: Sales Assistant Displays Care Provider 26/12 Housing: other Details: Care Bed at this time Number of Children: 0 Communication Needs: None Do you need help understanding health information?: Often current occupation: not working Current gender identity: male How often do you talk on the phone with friends or family?: three or more times per week How often do you get together with friends or relatives?: three or more times per week Panel score (0-1 are the most socially isolated patients): 1 What type of physical activity do you participate in: none and other Details: started lifting weights Frequency: daily Seatbelt use: always Drive intox or ride w/intox flag car 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
[2022-11-06 17:34] LABS: Legionella Ag Detection Urine Negative (Negative)
[2022-11-06] MEDS: Mirtazapine 15 MG TAB 45 MG PO (22:00)
[2022-11-07] VITALS (36 sets, daily range): BP systolic 94–134; BP diastolic 55–85; PULSE 80–112; RESP 1–29; TEMP 35–37; O2SAT 86–96
[2022-11-07] MEDS: Albuterol/Ipratropium 3 ML UPD VIAL UPD ×6 (00:30→19:38)
[2022-11-07] MEDS: Lactated Ringers 1,000 ML 100 ML IV (01:37)
[2022-11-07] MEDS: VANCOMYCIN/WATER (PEG) 1 GM/200 ML BAG IVPB (03:56)
[2022-11-07] MEDS: DOXYCYCLINE 100 MG in Normal Saline 100 ML IVPB ×2 (05:34→18:32)
[2022-11-07 05:41] LABS: Abs Immature Grans 0.06 10^3/uL (0.0-0.06); Absolute Basophil Count 0.02 10^3/uL (0.0-0.2); Absolute Eosinophil Count 0.02 10^3/uL (0.0-0.7); Absolute Monocyte Count 0.66 10^3/uL (0.1-0.8); Absolute Neutrophil Count 9.68 10^3/uL (1.2-6.7); Basophils % 0.2; Eosinophils % 0.2; HCT 30.9 % (40.0-50.0); HGB 10.2 g/dL (13.5-17.5); Immature Grans % 0.5; Lymphocytes % 9.5; MCH 29.6 pg (27.0-33.0); MCV 90 fL (80-95); MPV 10.2 fL (8.0-11.0); Monocytes % 5.7; Neutrophils % 83.9; Platelet Count 254 10^3/uL (130-400); RBC 3.45 10^6/uL (4.36-5.78); RDW-SD 38.9 fL; WBC 11.54 10^3/uL (4.4-10.8)
[2022-11-07 06:01] LABS: Anion Gap 5.8 mmol/L (3-11); BUN 19 mg/dL (7-18); CO2 29.2 mmol/L (21.0-32.0); CREATININE 1.1 mg/dL (0.70-1.30); Chloride 109 mmol/L (98-107); Creatine Kinase 434 U/L (39-308); Estimated GFR 73.12 (mL/min/1.73m2); Glucose 98 mg/dL (74-106); Magnesium 2.2 mg/dL (1.8-2.4); Potassium 3.9 mmol/L (3.5-5.1); Sodium 144 mmol/L (136-145)
[2022-11-07 06:09] LABS: C-Reactive Protein > 25.00 mg/dL (0.0-0.3)
--- NOTE | 2022-11-07 06:46 | W.PULMCC ---
General Date of Service Date of service: 11/07/22 Time of Service: 06:47 Reason for Admission to ICU: Pneumonia with respiratory failure Assessment and Plan Assessment and plan (1) Acute respiratory failure with hypoxia and hypercarbia: Status: Acute (2) Sepsis: Status: Acute (3) Hx pulmonary embolism: Status: Chronic (4) Elevated CPK: Status: Acute (5) Acute lactic acidosis: Status: Resolved (6) Community acquired pneumonia: Status: Acute (7) Leukocytosis: Status: Acute (8) Asthma-COPD overlap syndrome: Status: Acute (9) Anemia: Status: Chronic (10) FREDDY (acute kidney injury): Status: Resolved Assessment and plan: This is a 67 yo man with h/o stage IA NSCLC s/p radiation, prior PE on Eliquis and ACOS who is admitted to the ICU for multilobar pneumonia causing sepsis and respiratory failure necessitating BiPAP. He has improved since his admission with antibiotics. I do not think he requires vancomycin as this is CAP. A MRSA nares has been ordered. I will decrease his standing nebs to QID and prn. He is not hypovolemic and does not need IVF's. His POCUS finds normal cardiac function with a plethoric IVC, small left pleural effusion, B-lines bilaterally and possibly a trace to small pericardial effusion versus fat pad. Recommendations Pulmonary: Acute hypoxic and hypercapnic respiratory failure - s/p BiPAP - supplemental O2 for sats 88-92% - IS and VibraPEP - Mucinex increased to 1200mg bid COPD exacerbation - continue home Symbicort and Spiriva - Duonebs QID (from q6h) - prednisone 40mg daily for 5 days, 30mg for 3 days, 20mg for 3 days, 10mg for 3 days, 5mg for 3 days - I will arrange follow up at pulmonary clinic Cardiac: No acute concerns Renal: FREDDY - resolved - D/C fluids Elevated CK - no rhabdo, no need to continue checking I&O: Intake & Output 11/04/22 11/05/22 11/06/22 11/07/22 23:59 23:59 23:59 23:59 Intake Total 1750 / 1750 1698.333 / 5387.934 0425 / 1160 Output Total 720 / 720 810 / 810 1700 / 1700 Balance 1030 / 1030 888.333 / 888.333 -540 / -540 Weight 56.8 kg 56.4 kg 59 kg Daily Fluid Goal:: even GI Nutrition: On normal diet Infectious Disease: Multilobar pneumonia - agree with ceftriaxone and doxycycline - discontinue vanc - MRSA nares ordered - urine antigens pending - sputum culture ordered - blood cultures NGTD Hematologic: Leukocytosis - resolved, due to sepsis Anemia - due to ICU drift - continue to monitor - decrease unnecessary blood draws Neurologic: h/o dementia - multifactorial - no acute issues Endocrine: No acute concerns Lines: PIV Noel Prophylaxis: on Eliquis on home pantoprazole Code Status: Resuscitation Status Full Code Subjective Critical and life-threatening events over the past 24 hours: This is a 67 yo whom I have seen previously in clinic (however has returned for follow up in over a year) with ACOS, stage IA NSCLC (s/p SBRT) and history of PE on Eliquis. He required admission to the ICU for respiratory failure in the setting of bilateral pneumonia and a COPD exacerbation. He had required BiPAP over the weekend, however is now on nasal cannula. He was found to have mild CO2 retention at 57 with a decrease in pH to 7.23 on VBG (this was an acute processes). Iggy states he was feeling ill for a few days prior to going to the ED. He is feeling much better since being admitted. He is requesting the BiPAP, but I did explain to him that he did not need it at the moment and that is a good thing. Exam Narrative Exam Narrative: Gen: NAD, normal respiratory effort, well-nourished HENT: PERRL, nasal turbinates normal without erythema or inflammation, moist oral mucosa, Mallampati 2, No LAD or JVD Chest: No respiratory distress, normal appearance of chest, clear to auscultation bilaterally, bibasilar crackles Heart: regular rate and rhythym, no murmurs, rubs or gallops Abdomen: Non-distended, soft, non tender Extremities: No clubbing, edema, cyanosis, rashes Neuro: AAOx1, non focal Psych: cooperative, appropriate mental affect Most Recent VS/Results Last Vital Signs Temp 37.0 C 11/07/22 04:00 Pulse 82 11/07/22 04:59 Resp 22 11/07/22 05:00 BP 105/62 11/07/22 04:59 Pulse Ox 94 11/07/22 05:00 Laboratory Results - last 24 hr 11/06/22 11/06/22 11/07/22 05:55 05:55 05:21 WBC RBC Hgb Hct MCV MCH MCHC RDW Plt Count MPV Immature Gran % Neutrophils % Lymphocytes % Monocytes % Eosinophils % Basophils % Nucleated RBC % Absolute Neutrophils Absolute Lymphocytes Absolute Monocytes Absolute Eosinophils Absolute Basophils Sodium 144 Potassium 3.9 Chloride 109 H Carbon Dioxide 29.2 Anion Gap 5.8 BUN 19 H Creatinine 1.1 Est GFR (CKD-EPI 2020) 73.12 Glucose 98 Calcium 8.0 L Magnesium 2.2 Creatine Kinase 434 H C-Reactive Protein > 25.00 H > 25.00 H Add-On Test Request DONE 11/07/22 05:21 WBC 11.54 H RBC 3.45 L Hgb 10.2 L Hct 30.9 L MCV 90 MCH 29.6 MCHC 33.0 RDW 12.0 Plt Count 254 MPV 10.2 Immature Gran % 0.5 Neutrophils % 83.9 Lymphocytes % 9.5 Monocytes % 5.7 Eosinophils % 0.2 Basophils % 0.2 Nucleated RBC % 0.0 Absolute Neutrophils 9.68 H Absolute Lymphocytes 1.10 L Absolute Monocytes 0.66 Absolute Eosinophils 0.02 Absolute Basophils 0.02 Sodium Potassium Chloride Carbon Dioxide Anion Gap BUN Creatinine Est GFR (CKD-EPI 2020) Glucose Calcium Magnesium Creatine Kinase C-Reactive Protein Add-On Test Request Review of Systems All systems reviewed & are unremarkable except as noted in HPI and below Time spent with patient Time spent in Critical Care: 65 Time spent in Critical care included: Performing procedures not included in c.c time, Coordination of care, Chart review, Documenting critically ill care, Time at immediate bedside and Discussing critically ill care with other medical staff Pocus Exam Limited Cardiac Exam DATE OF EXAM: 11/07/22 TIME OF EXAM: 08:00 PROVIDER THAT PERFORMED THE STUDY: Anjana De La Rosa IS THIS A REPEAT EXAM DURING THIS ENCOUNTER: no REASON FOR EXAM: Dyspnea, Evaluation of LV function and Hypoxia VISUALIZED STRUCTURES: four chambers, left atrium, left ventricle, LVOT, right atrium, right ventricle, aortic valve, mitral valve, Interventricular septum and IVC VIEW OBTAINED: Apical 4-Chamber, Parasternal long-axis, Parasternal short-axis and Subxiphoid PERTINENT FINDINGS/IMPRESSION: Pericardial effusion (trace versus fat pad) and Plethoric IVC; No LV dysfunction, No RV dilation and No RV dysfunction Exam complete Limited Thoracic Lung Exam DATE OF EXAM: 11/07/22 TIME OF EXAM: 08:00 PROVIDER THAT PERFORMED THE STUDY: Anjana De La Rosa IS THIS A REPEAT EXAM DURING THIS ENCOUNTER: No REASON FOR EXAM: COPD, Hypoxia, Pneumonia and Shortness ofBreath VISUALIZED STRUCTURES: right anterior, right posterior and left posterior PERTINENT FINDINGS/IMPRESSION: B-lines/left side, B-lines/right side and Left pleural effusion Exam complete
[2022-11-07] MEDS: Budesonide/Formoterol 160/4.5 6 GM 60 PUFF INH IH ×2 (07:53→19:53)
[2022-11-07] MEDS: Tiotropium Bromide-Respimat 10 PUFF INH 2 PUFF IH (07:53)
[2022-11-07] MEDS: cefTRIAXone 2 GM/50 ML BAG IVPB (08:35)
[2022-11-07] MEDS: Pantoprazole 40 MG TABCR PO (08:37)
[2022-11-07] MEDS: predniSONE 20 MG TAB 40 MG PO (08:37)
[2022-11-07] MEDS: guaiFENesin 600 MG TABCR 1200 MG PO ×2 (08:37→19:38)
[2022-11-07] MEDS: Furosemide 20 MG/2 ML VIAL IVP (08:37)
[2022-11-07] MEDS: Cholecalciferol (Vitamin D3) 1,000 UNIT TAB 1000 UNITS PO (08:39)
[2022-11-07] MEDS: FLUoxetine 20 MG CAP PO (08:39)
[2022-11-07] MEDS: Thiamine 100 MG TAB PO (08:39)
[2022-11-07] MEDS: Apixaban 5 MG TAB PO ×2 (08:39→19:38)
[2022-11-07] MEDS: clonazePAM 1 MG TAB PO ×2 (08:39→19:37)
--- NOTE | 2022-11-07 09:17 | PGE_ITS ---
Date of Service Date of service: 11/07/22 Time of Service: 09:17 Assessment and Plan Assessment and plan (1) Sepsis: Status: Acute Assessment and plan: Due to PNA, present on admission. Blood cx negative. Urine legionella negative. Urine Strep Ag is pending. MRSA nares pending. Vancomycin d/c'ed. Continue ceftriaxone, doxycycline. Obtain a speech therapy consult as could be aspiration PNA given tardive dyskinesia/Parkinsonism. Lactates normalized. (2) Acute respiratory failure with hypoxia and hypercarbia: Status: Acute Assessment and plan: Due to bilateral pneumonia present on admission in addition to a possible underlying COPD exacerbation. Trialing the day without BiPAP. The patient requests BiPAP but we feel this is more behavioral/provoked by anxiety. Continue steroids. Encourage pulmonary toilet. (3) Community acquired pneumonia: Status: Acute Assessment and plan: As above (4) Asthma-COPD overlap syndrome: Status: Acute Assessment and plan: As above. Would continue steroids as well. (5) Acute lactic acidosis: Status: Resolved Assessment and plan: Resolved. D/c IVF/ (6) FREDDY (acute kidney injury): Status: Resolved Assessment and plan: In setting of sepsis, elevated CPK. Has a lomax. Resolved. D/c IVF. WIll also give furosemide 20 mg x 1. (7) Abdominal pain: Assessment and plan: CT abdomen negative. Likely chronic pain, No further workup is planned. (8) Elevated CPK: Status: Acute Assessment and plan: Improved. Will continue to monitor. No signs of rhabdomyolysis. (9) Parkinsonism: Status: Chronic Assessment and plan: Followed by Dr Valladares. Not normally on medications. PT/OT/speech consulted. (10) Tardive dyskinesia: Status: Chronic Assessment and plan: Continue tetrabenazine. Consult speech therapy. (11) Hx pulmonary embolism: Status: Chronic Assessment and plan: Continue apixaban (12) Hyperglycemia: Status: Acute Assessment and plan: A1C 5.4. Continue SSI. (13) DVT prophylaxis: Status: Resolved Assessment and plan: On chronic apixaban. (14) Discharge planning issues: Status: Resolved Assessment and plan: Full code. Transfer to medical surgical floor. Await palliative care consult Discussed with Dr De La Rosa. Subjective Subjective Interval history since last seen: Mr Urias has been transitioned to nasal canula this am from the BiPAP. He is asking for BiPAP, but this isn't correlated with increased work of breathing. Endorses some dizziness, denies CP, endorses some SOB, denies n/v. Exam Narrative Exam Narrative: General: Middle-aged male On NC at 3L of 2, saturating 88% (this is being titrated up), no dyspnea/tachypnea/cyanosis, having stereotypic lip smacking movements of tardive dyskinesia HEENT: EOMI, MMM, lip movements of tardive dyskinesia. Cardiovascular: RRR, no m/r/g Lungs: Diminished breath sounds B posteriorly Gastrointestinal: soft, nontender, nondistended Genitourinary: Has a lomax Extremities: no edema BLEs, 2+ pedal pulses B, no cyanosis, B feet are warm. Objective Last Vital Signs Temp 37.0 C 11/07/22 04:00 Pulse 110 H 11/07/22 08:47 Resp 25 H 11/07/22 08:47 BP 118/72 11/07/22 08:47 Pulse Ox 90 L 11/07/22 08:47 Laboratory Results - last 24 hr 11/07/22 11/07/22 05:21 05:21 WBC 11.54 H RBC 3.45 L Hgb 10.2 L Hct 30.9 L MCV 90 MCH 29.6 MCHC 33.0 RDW 12.0 Plt Count 254 MPV 10.2 Immature Gran % 0.5 Neutrophils % 83.9 Lymphocytes % 9.5 Monocytes % 5.7 Eosinophils % 0.2 Basophils % 0.2 Nucleated RBC % 0.0 Absolute Neutrophils 9.68 H Absolute Lymphocytes 1.10 L Absolute Monocytes 0.66 Absolute Eosinophils 0.02 Absolute Basophils 0.02 Sodium 144 Potassium 3.9 Chloride 109 H Carbon Dioxide 29.2 Anion Gap 5.8 BUN 19 H Creatinine 1.1 Est GFR (CKD-EPI 2020) 73.12 Glucose 98 Calcium 8.0 L Magnesium 2.2 Creatine Kinase 434 H C-Reactive Protein > 25.00 H Time Spent with Patient Time Spent with Patient: 25-34 minutes Time was spent: preparing to see the patient(eg.review tests), obtaining and/or reviewing separately otained hiistory, ordering medications,tests, procedures, referring, communicating with other health healthcare network pricing consultant, indepentently interpreting results, counseling the patient and care coordination
--- NOTE | 2022-11-07 09:45 | PT.INIE ---
Date of service: 11/07/22 Time of Service: 09:10 PT Notes Visit Reasons: AcuteHypoxicRespiratoryFailure,Multifocalpneumonia Physical Therapy Inpatient Initial Evaluation Date: 11/07/2022 Referring Doctor: Natali Hopper MD PT Orders: PT CONSULT: Limited ability Precautions: Fall. Standard. Activity as tolerated. Patient Profile/Admitting Diagnosis: Iggy is a 67-year-old male who presented to the ED on 11/05/2022 due to shortness of breath and generalized weakness. He is admitted to the ICU for management of sepsis, acute respiratory failure with hypoxia and hypercarbia, community-acquired pneumonia, and a small, acute lactic acidosis and for co-morbidities listed below. PMHX: All Active Problems?(Updated 11/05/22 @ 18:36 by Natali Hopper MD) Hyperglycemia (Acute) Sepsis (Acute) Hx pulmonary embolism (Chronic) Elevated CPK (Acute) Acute lactic acidosis (Acute) Acute respiratory failure with hypoxia and hypercarbia (Acute) Community acquired pneumonia (Acute) Leukocytosis (Acute) Hypoalbuminemia (Acute) FREDDY (acute kidney injury) (Acute) Parkinsonism (Chronic) Urinary incontinence (Acute) Pseudobulbar affect (Acute) Unintentional weight loss (Acute) Chronic anticoagulation (Chronic) Tardive dyskinesia (Chronic) Cervicalgia (Acute) Anxiety with somatic features (Chronic) chest wall pain, globus sensation, abdominal pain, shortness of breath Asthma-COPD overlap syndrome (Acute) GERD (gastroesophageal reflux disease) (Chronic) Depressive disorder (Chronic) Confabulation (Chronic) Memory loss (Acute) Non compliance w medication regimen (Chronic) Chest wall pain, chronic (Acute) Pharyngoesophageal dysphagia (Acute) Globus sensation (Acute) Vitamin D deficiency (Acute) Hypocalcemia (Chronic) Pulmonary embolism (Chronic 12/20/18) CT Report, Started on EliquisConstipation (Chronic) Cognitive impairment (Chronic) [facility] progress note: 11/13/18, mild to moderate Chronic alcoholic pancreatitis (Acute) Umbilical hernia (Acute) Tubular adenoma of colon (Acute 05/04/09) 01/19/15 NO adenoma on repeat colonoscopy Malignant neoplasm of unspecified part of right bronchus or lung (Acute 10/04/17) Dyspepsia (Acute 04/26/16) Chronic obstructive pulmonary disease (Chronic 03/22/17) moderately severe 03/07/17:? FEV1/FVC 1.82/3.48, 52% (+) Bronchodilator response compared to PFT in 2007, 800cc decline in FVC & 460cc decline in FEV1 Anxiety (Chronic 09/17/14) Alcohol abuse, in remission (Acute 04/26/16) Medical History? Abdominal pain Adjustment disorder with anxiety (06/29/17) Alcohol abuse (11/27/12) Anxiety Dyspepsia Epigastric pain History of sore throat Malignant neoplasm of right lung Melena Palliative care patient Pancreatitis, acute Rash of face Thrush Tubular adenoma of colon Weight loss Surgical History? Colonoscopy (01/19/15) Also had a decompress colonoscopy with Dr Haresh Vásquez at [facility] on 06/09/18 for significant colon distention seen on CT scan, no prep done,therapeutic, diagnositc, still due for repeat on 01/19/25 History of lung biopsy History of surgery on upper extremity left Status post cataract extraction and insertion of intraocular lens of left eye (11/05/18) Social History/Home Situation: Lives with parents who are his primary caregivers. Home with services 5 times a week. States that he did not use an assistive device prior to admission. Equipment Owned/DME: FWW, SPC Subjective: Agreeable to PT consult. Denies headache, chest pain, and lightheadedness throughout session. Did report shortness of breath. Objective: General Observation: Seated on bedside chair. Telemetry monitoring in place. Noel catheter in place. Mentation at 4 L/min. Mental Status: Alert and oriented as to personand place. Able to pay attention, focus, and respond appropriately. Pain: Denies Vital Signs: Oxygen saturation low of 88% and high of 92% on 4 L of O2 via NC. ROM: Right Upper Extremity: Shoulder Flexion WFL. Shoulder abduction WFL. Elbow flexion WFL. Wrist flexion WFL. Functional opening and closing of hand WFL. Left Upper Extremity: Shoulder Flexion WFL. Shoulder abduction WFL. Elbow flexion WFL. Wrist flexion WFL. Functional opening and closing of hand WFL. Right Lower Extremity: Hip flexion WFL. Hip abduction WFL. Knee flexion WFL. Ankle dorsiflexion WFL. Ankle plantarflexion WFL. Left Lower Extremity: Hip flexion WFL. Hip abduction WFL. Knee flexion WFL. Ankle dorsiflexion WFL. Ankle plantarflexion WFL. Strength: Right Upper Extremity: Shoulder flexors 4-/5. Shoulder abductors 4-/5. Elbow flexors 4-/5. Elbow extensors 4-/5. Tin Recovery Worker strong. Left Upper Extremity: Shoulder flexors 4-/5. Shoulder abductors 4-/5. Elbow flexors 4-/5. Elbow extensors 4-/5. Tin Recovery Worker strong. Right Lower Extremity: Hip flexors 4-/5. Hip abductors 4-/5. Knee flexors 4-/5. Knee extensors 4-/5. Ankle dorsiflexors 4-/5. Ankle plantarflexors 4-/5. Left Lower Extremity: Hip flexors 4-/5. Hip abductors 4-/5. Knee flexors 4-/5. Knee extensors 4-/5. Ankle dorsiflexors 4-/5. Ankle plantarflexors 4-/5. Bed Mobility/Transfers: Sit to stand with contact guard assist with FWW Stand to sit with contact guard assist with FWW Bed to reclining chair with contact guard assist with FWW Reclining chair to bed with contact guard assist with FWW Gait: Instructed patient with level surface ambulation of 300 feet requiring contact guard assist. Yuli decreased. Step height decreased. Step length decreased. Giat shuffled. Thoracic kyphosis. Mild SOB resolved with rest. Balance: Static Sitting: Good Dynamic Sitting: Good Static Standing: Fair Dynamic Standing: Fair Special Tests: Mobility Limitations Standardized Measure [facility]-PAC 6 clicks Basic Mobility Inpatient Short Form: Raw Score: 19 CMS Score: 42% deficit Informed Consent/Education: Patient was instructed in purpose of PT consult and plan of care. Agreeable to proceed with established PT POC to achieve personal goals. Assessment: Patient presents with clinical signs and symptoms consistent with current/admitting diagnoses that have resulted to mobility limitations, gait instability, generalized weakness, and overall ADL decline as demonstrated by the following impairment level findings: 1. Decreased strength to B UE/LE major muscle groups 2. Impaired sitting/standing balance 3. Impaired activity tolerance 4. Shortness of breath Impairments are contributing to the following functional limitations: 1. Decline in bed mobility skills 2. Decline in transfer skills 3. Difficulty with ambulation without assistive device and physical assistance 4. Increased completion time for mobility ADL performance 5. Increased risk for falls 6. Difficulty with managing steps alone safely Patient is assessed as a 87523 moderate complexity based on the following: History: 67-year-old female with past medical history as indicated above Examination: Demonstrable impairment in strength, balance, and mobility level with underlying impairments and functional limitations as exhibited above as well as deficit score of 42% utilizing the [facility] Mobility Inpatient Short Form Presentation: Evolving Decision Makin moderate complexity Goals: Goals X1 week 1. Supine-Sit independent 2. Sit-Supine independent 3. Sit-Stand independent 4. Stand-Sit independent with FWW 5. Bed-Chair independent with FWW 6. Chair-Bed independent with FWW 7. Independent gait on level surface with use of FWW for at least 300 feet without report of pain nor dyspnea 8. Independent stair negotiation while holding onto B rails for at least 5 steps without report of pain nor dyspnea 9. Independent with home exercise program 10. Good static and dynamic standing balance/tolerance Plan of Care/Treatment Plan: 1-2x/day, 7 days/week x 1 week. Plan of care has been reviewed with the SILK OPENER providing the service under Physical Therapy direction. Initiate Physical Therapy intervention for pain management as needed, strengthening, bed mobility, transfers, gait, stairs, balance training, and use of assistive device. DISCHARGE RECOMMENDATIONS: [] Home with no services [] [X] Home with services. Patient will benefit from home health PT services in order to progress mobility level using least restrictive assistive ambulatory device, assess home safety, identify additional equipment needs, and establish a functional maintenance program that will increase ability of patient to remain at home. [] Home with outpatient PT [] [] SNF for continued rehabilitation [] [] Care Home Care [] [] SNF versus LTC based on ability to participate and progress [] TREATMENT CODE/TIME: 01076 x 20 minutes, 33691 x 11 minutes beginning at 9:10 AM. Thank you for the opportunity to participate in the care of this patient. Kristel Dhillon PT, DPT, CLT [facility] [place], [place]
--- NOTE | 2022-11-07 11:25 | W.SPSTE ---
Date of service: 11/07/22 Time of Service: 10:45 Subjective Clinical (Bedside) Swallow Evaluation Speech Language Pathology Patient referred for Clinical Swallow Evaluation from Dr Hopper given nursing report of poor tolerance of solids. Precautions: Fall, Standard, Full Code SUBJECTIVE: Patient received alert/awake, agreeable to evaluation, able to communicate wants/needs effectively; partially able to demonstrate comprehension of recommendations for safe p.o. intake upon discharge once deemed medically stable.? Patient reporting oral care had been completed recently (after breakfast). Patient was transferred with standby assist from RN to upright in chair at bedside. RN present for part of session, providing subjective report and receiving education. WIND TURBINE SERVICE TECHNICIAN Devika Ga of [facility] also present and observing this date but session was conducted by this WIND TURBINE SERVICE TECHNICIAN Sarah Curran. ? HPI: Pt is a 67 year old M admitted with suspected CAP, hypoxic and hypercapneic respiratory failure, sepsis present on admission. Predisposing dysphagia risk factors: Parkinsonism, Tardive Dyskenesia, GERD, Cognitive impairment, COPD, prior malignant neoplasm of R bronchus or lung. IMPRESSIONS & PLAN: Patient presents with mild-moderate oral > pharyngeal dysphagia secondary to dyskenesias and lingual weakness & reduced range of motion. Complicated by reduced sensory awareness likely in setting of cognitive impairment, edentulousness, and increased work of breathing in setting of respiratory failure and supplemental oxygenation. Would benefit from modified diet to reduce need for mastication and to promote oral clearance and reduce oral-pharyngeal stasis. Patient appears to tolerate thin liquids but would benefit from safety strategies when eating and drinking to reduce risk of aspiration given his predisposing diagnoses. Further WIND TURBINE SERVICE TECHNICIAN services: Inpatient / patient to be followed while on unit. WIND TURBINE SERVICE TECHNICIAN to follow to ensure diet tolerance, suspect he has dysphagia at baseline and would benefit from family education, defer to neurology for outpatient WIND TURBINE SERVICE TECHNICIAN referral. May benefit from or SNF WIND TURBINE SERVICE TECHNICIAN at discharge pending diet tolerance or progression. ? Instrumentation: N/A Diet Texture Modification(s): IDDSI Level(s) SOLIDS 5-Minced & Moist Solids LIQUIDS 0-Thin Liquids Medication Intake: Whole with 4-Extremely Thick Liquids followed by 0-Thin liquid wash. Alter medications only as advised by MD or Pharmacist RISK MANAGEMENT: HOB upright as tolerated; upright for all PO intake. Encourage physical mobility as tolerated. Oral hygiene BID/2x per day & before/after PO intake, using friction with toothbrush on all oral structures as tolerated, suction PRN Level of Assistance/Supervision: 1:1 close supervision vs assist for all PO intake PO intake only when awake/alert? Strategies/Adaptations/Assistive Equipment: Reduce auditory and/or visual distractions when eating Provide verbal and/or visual cues or 1:1 assist to use recommended strategies: Small sips and bites when eating, Slow rate of intake Alternate intake of liquids and solids Posture/Positioning Needs: Maintain upright position at least 30 minutes after meals Avoid meals/snacks 2-3 hours prior to reclining/sleeping Sleep with head of bed elevated to reduce likelihood of nocturnal reflux, ? PMHX: All Active Problems?(Updated 11/05/22 @ 18:36 by Natali Hopper MD) Hyperglycemia (Acute) Sepsis (Acute) Hx pulmonary embolism (Chronic) Elevated CPK (Acute) Acute lactic acidosis (Acute) Acute respiratory failure with hypoxia and hypercarbia (Acute) Community acquired pneumonia (Acute) Leukocytosis (Acute) Hypoalbuminemia (Acute) FREDDY (acute kidney injury) (Acute) Parkinsonism (Chronic) Urinary incontinence (Acute) Pseudobulbar affect (Acute) Unintentional weight loss (Acute) Chronic anticoagulation (Chronic) Tardive dyskinesia (Chronic) Cervicalgia (Acute) Anxiety with somatic features (Chronic) chest wall pain, globus sensation, abdominal pain, shortness of breath Asthma-COPD overlap syndrome (Acute) GERD (gastroesophageal reflux disease) (Chronic) Depressive disorder (Chronic) Confabulation (Chronic) Memory loss (Acute) Non compliance w medication regimen (Chronic) Chest wall pain, chronic (Acute) Pharyngoesophageal dysphagia (Acute) Globus sensation (Acute) Vitamin D deficiency (Acute) Hypocalcemia (Chronic) Pulmonary embolism (Chronic 12/20/18) CT Report, Started on EliquisConstipation (Chronic) Cognitive impairment (Chronic) [facility] progress note: 11/13/18, mild to moderate Chronic alcoholic pancreatitis (Acute) Umbilical hernia (Acute) Tubular adenoma of colon (Acute 05/04/09) 01/19/15 NO adenoma on repeat colonoscopy Malignant neoplasm of unspecified part of right bronchus or lung (Acute 10/04/17) Dyspepsia (Acute 04/26/16) Chronic obstructive pulmonary disease (Chronic 03/22/17) moderately severe 03/07/17:? FEV1/FVC 1.82/3.48, 52% (+) Bronchodilator response compared to PFT in 2007, 800cc decline in FVC & 460cc decline in FEV1 Anxiety (Chronic 09/17/14) Alcohol abuse, in remission (Acute 04/26/16) Medical History? Abdominal pain Adjustment disorder with anxiety (06/29/17) Alcohol abuse (11/27/12) Anxiety Dyspepsia Epigastric pain History of sore throat Malignant neoplasm of right lung Melena Palliative care patient Pancreatitis, acute Rash of face Thrush Tubular adenoma of colon Weight loss Surgical History? Colonoscopy (01/19/15) Also had a decompress colonoscopy with Dr Haresh Vásquez at [facility] on 06/09/18 for significant colon distention seen on CT scan, no prep? done,therapeutic, diagnositc, still due for repeat on 01/19/25 History of lung biopsy History of surgery on upper extremity left Status post cataract extraction and insertion of intraocular lens of left eye (11/05/18) OBJECTIVE: Sp02: 90-92 % Respiratory: 4L O2 via NC tolerates well Language: Grossly WFL Hearing: WFL for purposes of evaluation at close distance Mental Status: Poor sensory awareness. Oriented to self/situation. Follows most instructions without difficulty, but requires assistance to ensure adherence to safe swallow instructions. Speech: Dysarthric secondary to Parkinsonism vs dyskenesia, complicated by edentulousness. Oral Motor Exam: ? Dentition ? Edentulous - no dentures ? Oral Mucosa ? Dry - red tongue ? Good oral care ? CN V - Trigeminal ? Sensation - DNT ? Jaw Movement ? Impaired Vertical ROM? CN VII ? Labial/Facial ? WFL for brief screening ? CN IX ? Palate ? WFL ? CN X ? Laryngeal ? MPT - DNT ? Vocal quality ? Breathy ? Abnormal loudness (low intensity) ? Dry and clear at baseline ? Volitional cough ? Mildly Weak ? CN XII ? Lingual ? Impaired ROM ? Impaired strength ? Volitional Swallow ? Robust laryngeal elevation ? Other: Repetitive severe dyskenesic oral movements which improved during volitional activity. ? Food items tested: ?? [ ] None. Further swallow assessment not warranted at this time.? [ ] Ice: [X] IDDSI 0: [ ] IDDSI 1: [ ] IDDSI 2: [ ] IDDSI 3: [X] IDDSI 4: [X] IDDSI 5: [ ] IDDSI 6: [X] IDDSI 7: [ ] Pill/tablet: Oral phase: [ ] WFL [ ] Leakage from mouth [ ] Difficulty with bolus manipulation [X] Difficulty with a-p transport [X] Difficulty chewing [X] Pocketing (L) [X] Residue Pharyngeal phase: [ ] WFL [X] Delayed swallow initiation - with solids/purees [ ] Reduced hyolaryngeal elevation/excursion [X] Cough after swallow - with dry/crumbly solids [ ] Voice change after swallow? [ ] Throat clearing? [ ] Endorsed stasis? Provided education to: Patient, Nursing Topics Addressed:Rationale for recommendations as outlined below Outcome: Verbalized/demonstrated understanding _ RN Needs review/reinforcement - Patient Goals: Patient will tolerate safest/least restrictive diet without s/sx aspiration. Patient/caregiver will be independent with aspiration precautions, diet modifications, and safe swallowing strategies. Patient/caregiver will verbalize/demonstrate understanding of education r/t anatomy/physiology of normal vs disordered swallowing mechanism, overt s/sx to monitor for re: potential aspiration of food liquids, recommendations for improved oral care, relationship between respiratory function changes and deglutition, rationale for risk management strategies. WIND TURBINE SERVICE TECHNICIAN CPT Code: 12088 Clinical Swallowing Evaluation TIME SPENT: 30 minutes DIAGNOSIS: Dysphagia, unspecified. Coding Diagnoses CPT Codes EVALUATE SWALLOWING FUNCTION - [id number] ([id number])
[2022-11-07] MEDS: Insulin Aspart 300 UNITS/3 ML PEN SC ×2 (12:13→21:06)
[2022-11-07] MEDS: ACETAMINOPHEN 1,000 MG/100 ML BTL 400 MG IVPB (13:01)
--- NOTE | 2022-11-07 17:31 | PT.INTREAT ---
Date of service: 11/07/22 Time of Service: 17:05 PT Notes Visit Reasons: AcuteHypoxicRespiratoryFailure,Multifocalpneumonia Inpatient Physical Therapy Treatment Note [facility] Date: 11/07/22 PRECAUTIONS: fall, standard, activity as tolerated SUBJECTIVE: Patient supine in bed, reports feeling tired, agreeable to therapy OBJECTIVE: PAIN: none reported GAIT Assistive Device: fww Weight bearing: full Assist: contact guard Distance: 220 feet Deviation: kyphotic posture, reduced step height, reduced step length, reduced mac. ASSESSMENT: Patient tolerates therapy well PLAN: continue strengthening per plan of care TREATMENT CODE/TIME: 13209 gait 15 minutes beginning at 17:05
--- NOTE | 2022-11-07 18:29 | PDOC.CMPRO ---
Date of service: 11/07/22 Time of Service: 18:29 Care Management Progress Note Progress Note Text Progress Note Text: S/O: Iggy was sitting up in bed when CM met with him. He stated that he is feeling better today. CM spoke to Ellie Jay, his [facility] dependency case manager, who stated that she has been working on placement from the community for several months, as his care is becoming too much for his elderly parents. She stated that the family agreed to have him placed at [facility], but it is currently closed to admissions. Ellie reported that recently Iggy's family became agreeable to him going to the [facility]. CM faxed the referral to the [facility] at their request. CM will continue to follow. A: Iggy is a 67 year old male admitted to [facility] on 11/05/22 for acute hypoxic respiratory failure. P: Anticipate Iggy will return home vs SNF once medically cleared. His parents will drive him via private vehicle. He will follow up with his PCP and discharge plan of care. CM will continue to follow.
[2022-11-07] MEDS: Normal Saline Flush 10 ML SYR IVP (18:33)
[2022-11-07] MEDS: hydrOXYzine HCL 25 MG TAB PO (19:38)
[2022-11-07] MEDS: Mirtazapine 15 MG TAB 45 MG PO (21:04)
[2022-11-08] VITALS (10 sets, daily range): BP systolic 91–117; BP diastolic 52–76; PULSE 68–81; RESP 5–24; TEMP 35.9–36.9; O2SAT 88–95
--- NOTE | 2022-11-08 | DI.RAD_ITS ---
Exam(s) XR PORTABLE CHEST AP EXAM: XR PORTABLE CHEST AP CLINICAL HISTORY: f/u PNA TECHNIQUE: 2D digital imaging was performed of the chest. One image was obtained. An AP view was ob tained. COMPARISON: CR,XR XR PORTABLE CHEST AP from 11/05/2022 FINDINGS: MEDIASTINUM: Normal. HEART: Normal. PULMONARY VASCULATURE: Normal. LUNGS: There has been interval progression of the basilar infiltrates particularly in the left lung b ase. PLEURAL SPACE: There is blunting of the left costophrenic angle suggesting a small pleural effusion. No right pleural effusion. There is no evidence of a pneumothorax. BONE:Within normal limits for the patient's age. OTHER FINDINGS:Normal. IMPRESSION: Interval worsening of the bilateral infiltrates, particularly in the left lung base, since the prior examination. DATA REPOSITORY: RADIATION DOSE DELIVERED:
[2022-11-08] MEDS: Normal Saline Flush 10 ML SYR IVP (05:48)
[2022-11-08] MEDS: DOXYCYCLINE 100 MG in Normal Saline 100 ML IVPB ×2 (05:48→20:10)
[2022-11-08 06:55] LABS: Abs Immature Grans 0.07 10^3/uL (0.0-0.06); Absolute Basophil Count 0.02 10^3/uL (0.0-0.2); Absolute Eosinophil Count 0.02 10^3/uL (0.0-0.7); Absolute Lymphocyte Count 1.18 10^3/uL (1.2-3.4); Absolute Monocyte Count 0.57 10^3/uL (0.1-0.8); Absolute Neutrophil Count 8.83 10^3/uL (1.2-6.7); Basophils % 0.2; Eosinophils % 0.2; HCT 33.2 % (40.0-50.0); HGB 10.8 g/dL (13.5-17.5); Immature Grans % 0.7; MCH 28.9 pg (27.0-33.0); MCHC 32.5 % (32.0-36.0); MCV 89 fL (80-95); MPV 9.8 fL (8.0-11.0); Monocytes % 5.3; Neutrophils % 82.6; Platelet Count 286 10^3/uL (130-400); RBC 3.74 10^6/uL (4.36-5.78); RDW 12.1 % (11.8-14.1); RDW-SD 39.5 fL; WBC 10.69 10^3/uL (4.4-10.8)
[2022-11-08 07:06] LABS: Anion Gap 4.1 mmol/L (3-11); BUN 21 mg/dL (7-18); C-Reactive Protein 15.38 mg/dL (0.0-0.3); CO2 31.9 mmol/L (21.0-32.0); CREATININE 0.9 mg/dL (0.70-1.30); Calcium 8.6 mg/dL (8.5-10.1); Chloride 107 mmol/L (98-107); Estimated GFR 93.03 (mL/min/1.73m2); Glucose 90 mg/dL (74-106); Magnesium 2.4 mg/dL (1.8-2.4); Potassium 3.7 mmol/L (3.5-5.1); Sodium 143 mmol/L (136-145)
[2022-11-08 07:41] LABS: Procalcitonin 1.3 ng/mL
[2022-11-08] MEDS: Tiotropium Bromide-Respimat 10 PUFF INH 2 PUFF IH (07:54)
[2022-11-08] MEDS: Budesonide/Formoterol 160/4.5 6 GM 60 PUFF INH IH ×2 (07:54→22:00)
[2022-11-08] MEDS: Albuterol/Ipratropium 3 ML UPD VIAL UPD ×4 (07:55→22:08)
--- NOTE | 2022-11-08 07:56 | OTIE_ITS ---
Occupational Therapy Notes Inpatient Occupational Therapy Evaluation Date: 11/08/22 Referring Doctor:Natali Hopper MD OT Orders: Non Urgent Precautions: Fall, Standard, Full PATIENT PROFILE/ADMITTING DIAGNOSIS: Pt is a 67 year old male who presented to the ED on 11/05 for a clinical impression of Acute lactic acidosis, Acute respiratory failure with hypoxia and hypercarbia, Community acquired pneumonia, Leukocytosis, Hypoalbuminemia, FREDDY (acute kidney injury). Pt was admitted to the ICU where he was monitored and transitioned to Med Surg as of 11/07. Past Medical History: All Active Problems?(Updated 11/05/22 @ 18:36 by Natali Hopper MD) Hyperglycemia (Acute) Sepsis (Acute) Hx pulmonary embolism (Chronic) Elevated CPK (Acute) Acute lactic acidosis (Acute) Acute respiratory failure with hypoxia and hypercarbia (Acute) Community acquired pneumonia (Acute) Leukocytosis (Acute) Hypoalbuminemia (Acute) FREDDY (acute kidney injury) (Acute) Parkinsonism (Chronic) Urinary incontinence (Acute) Pseudobulbar affect (Acute) Unintentional weight loss (Acute) Chronic anticoagulation (Chronic) Tardive dyskinesia (Chronic) Cervicalgia (Acute) Anxiety with somatic features (Chronic) chest wall pain, globus sensation, abdominal pain, shortness of breathAsthma- COPD overlap syndrome (Acute) GERD (gastroesophageal reflux disease) (Chronic) Depressive disorder (Chronic) Confabulation (Chronic) Memory loss (Acute) Non compliance w medication regimen (Chronic) Chest wall pain, chronic (Acute) Pharyngoesophageal dysphagia (Acute) Globus sensation (Acute) Vitamin D deficiency (Acute) Hypocalcemia (Chronic) Pulmonary embolism (Chronic 12/20/18) CT Report, Started on EliquisConstipation (Chronic) Cognitive impairment (Chronic) [facility] progress note: 11/13/18, mild to moderateChronic alcoholic pancreatitis (Acute) Umbilical hernia (Acute) Tubular adenoma of colon (Acute 05/04/09) 01/19/15 NO adenoma on repeat colonoscopy Malignant neoplasm of unspecified part of right bronchus or lung (Acute 10/04/17) Dyspepsia (Acute 04/26/16) Chronic obstructive pulmonary disease (Chronic 03/22/17) moderately severe 03/07/17:? FEV1/FVC 1.82/3.48, 52% (+) Bronchodilator response compared to PFT in 2007, 800cc decline in FVC & 460cc decline in FEV1 Anxiety (Chronic 09/17/14) Alcohol abuse, in remission (Acute 04/26/16) Medical History? Abdominal pain Adjustment disorder with anxiety (06/29/17) Alcohol abuse (11/27/12) Anxiety Dyspepsia Epigastric pain History of sore throat Malignant neoplasm of right lung Melena Palliative care patient Pancreatitis, acute Rash of face Thrush Tubular adenoma of colon Weight loss Surgical History? colonoscopy (01/19/15) Also had a decompress colonoscopy with Dr Haresh Vásquez at [facility] on 06/09/18 for significant colon distention seen on CT scan, no prep done,therapeutic, diagnositc, still due for repeat on 01/19/25History of lung biopsy History of surgery on upper extremity leftStatus post cataract extraction and insertion of intraocular lens of left eye (11/05/18) Social History/Home Situation: Pt states that he lives with his parents in an apartment. He states that his brother is a positive support as well. He notes that they (A) him if needed but refers to himself as fairly (I). He has HH services for one hour a day, five days a week. He notes that he has no difficulty eating. He does not drive. Equipment owned/DME: FWW, Single point cane, grab bars SUBJECTIVE: Pt was sitting in bed when OT arrived. He is agreeable to OT consult. OBJECTIVE: General Observation: Pleasant, IV in (R) UE, nasal cannula O2 Mental Status: A&Ox3 Pain: no c/o pain during OT consult. ROM: RUE AROM WFL L UE AROM WFL STRENGTH: RUE 4/5 throughout for shoulder, elbow, wrist and digits LUE 4/5 throughout for shoulder, elbow, wrist and digits FUNCTIONAL MOBILITY/ADLS: Transfers with FWW and (A) EATING Seated in bed (I) with hand to mouth and appropriate use of silverware in modified grasp form. Is on guidelines with C D REACTOR OPERATOR for food consistency and diet. Please refer to C D REACTOR OPERATOR evaluation for further details. Pt requires someone to sit with him at this time as he doesn't swallow his food without vc. OT will consult with C D REACTOR OPERATOR about this. Functionally no other adaptive equipment needed at this time for eating to (A) pt with (I). Pt requires vc for task completion as it takes increased performance time for task completion. BALANCE: Static sitting Good Dynamic Sitting Good SPECIAL TESTS: Daily Activity Limitations Standardized Measure [facility] AM -PAC ?6 clicks? Daily Activity Inpatient Short Form: Raw score: 18 Standardized score: 38.66 CMS score: 46.65% INFORMED CONSENT/EDUCATION: Pt instructed in purpose of OT Consult and plan of care. ASSESSMENT: Patient is a 67-year-old male referred to occupational therapy services with diagnosis of sepsis, acute respiratory failure with hypoxia and hypercarbia, community-acquired pneumonia, and a small, acute lactic acidosis, FREDDY, Urinary incontinence. Patient presents with clinical signs and symptoms consistent with dx, as demonstrated by the following impairment level findings/functional limitations: Impairments in ADL/IADL and leisure activities, decreased functional activity tolerance, decreased functional mobility required for ADL performance, SOB, decreased functional strength and ROM required for (I) in his ADL routines. AMPAC score 18 Patient is assessed as a Moderate 92944 complexity based on the following: History: see above Examination: see functional limitations as noted above Presentation: evolving Decision Making: AMPAC score 18 GOALS Goals x1 week 1. Transfers 2. Dressing 3. Bathing 4. Toileting 5. Eating PLAN OF CARE/TREATMENT PLAN: 1x/day, 5 days/ week x 1week Initiate Occupational Therapy Services for bathing, dressing, grooming, toileting, eating, transfer training. DISCHARGE RECOMMENDATIONS Referrals sent to SNF at this time. Pt would benefit from SNF placement for continued rehabilitation, increased functional activity tolerance and progressive strengthening as symptoms allow. TREATMENT TIME/MINUTES/CODES [id number], [id number], 25 minutes [facility] [place], [place]
[2022-11-08] MEDS: clonazePAM 1 MG TAB PO ×2 (08:32→20:11)
[2022-11-08] MEDS: Cholecalciferol (Vitamin D3) 1,000 UNIT TAB 1000 UNITS PO (08:33)
[2022-11-08] MEDS: FLUoxetine 20 MG CAP PO (08:34)
[2022-11-08] MEDS: guaiFENesin 600 MG TABCR 1200 MG PO ×2 (08:34→20:11)
[2022-11-08] MEDS: predniSONE 20 MG TAB 40 MG PO (08:34)
[2022-11-08] MEDS: Thiamine 100 MG TAB PO (08:34)
[2022-11-08] MEDS: Pantoprazole 40 MG TABCR PO (08:34)
[2022-11-08] MEDS: Apixaban 5 MG TAB PO ×2 (08:34→20:11)
[2022-11-08] MEDS: PIPERACILLIN/TAZO 3.375 GM in Normal Saline 50 ML IVPB ×3 (08:35→22:03)
--- NOTE | 2022-11-08 10:09 | PDOC.CMIN ---
Date of service: 11/08/22 Time of Service: 10:10 Care Management Initial Assmt Initial Assessment REASON FOR HOSPITALIZATION:: FREDDY PREVIOUS FUNCTIONAL STATUS/SOCIAL/FAMILY SUPPORTS:: Iggy lives in [facility] with his parents. He has [facility]. Has patient been provided with info about the portal/API?: Yes Did the patient sign up for the portal?: No CODE STATUS:: Full Code INSURANCE COVERAGE / FINANCIAL ISSUES:: [employer] [place] Medicaid CURRENT HOME/COMMUNITY SERVICES/EQUIPMENT:: FWW, Single point cane, grab bars [facility]: 1hr/5days week PRIMARY CARE PHYSICIAN:: Glenn Ybarra POTENTIAL DISCHARGE NEEDS:: New [facility] PT vs SNF for STR PATIENT/FAMILY EDUCATION NEEDS:: Review discharge instructions, limitations, medications and plan to follow up with community providers. Discuss ask me three. PLAN:: PT recommends Home with New [facility] PT vs SNF for STR, when medically ready for discharge. PFSH All Active Problems (Updated 11/07/22 @ 06:59 by Anjana De La Rosa MD) Anemia (Chronic) Hyperglycemia (Acute) Sepsis (Acute) Hx pulmonary embolism (Chronic) Elevated CPK (Acute) Acute respiratory failure with hypoxia and hypercarbia (Acute) Community acquired pneumonia (Acute) Leukocytosis (Acute) Hypoalbuminemia (Acute) Parkinsonism (Chronic) Urinary incontinence (Acute) Pseudobulbar affect (Acute) Unintentional weight loss (Acute) Chronic anticoagulation (Chronic) Tardive dyskinesia (Chronic) Cervicalgia (Acute) Anxiety with somatic features (Chronic) chest wall pain, globus sensation, abdominal pain, shortness of breath Asthma-COPD overlap syndrome (Acute) GERD (gastroesophageal reflux disease) (Chronic) Depressive disorder (Chronic) Confabulation (Chronic) Memory loss (Acute) Non compliance w medication regimen (Chronic) Chest wall pain, chronic (Acute) Pharyngoesophageal dysphagia (Acute) Globus sensation (Acute) Vitamin D deficiency (Acute) Hypocalcemia (Chronic) Pulmonary embolism (Chronic 12/20/18) CT Report, Started on Eliquis Constipation (Chronic) Cognitive impairment (Chronic) [facility] progress note: 11/13/18, mild to moderate Chronic alcoholic pancreatitis (Acute) Umbilical hernia (Acute) Tubular adenoma of colon (Acute 05/04/09) 01/19/15 NO adenoma on repeat colonoscopy Malignant neoplasm of unspecified part of right bronchus or lung (Acute 10/04/17) Dyspepsia (Acute 04/26/16) Chronic obstructive pulmonary disease (Chronic 03/22/17) moderately severe 03/07/17: FEV1/FVC 1.82/3.48, 52% (+) Bronchodilator response compared to PFT in 2007, 800cc decline in FVC & 460cc decline in FEV1 Anxiety (Chronic 09/17/14) Alcohol abuse, in remission (Acute 04/26/16) Medical History Abdominal pain Adjustment disorder with anxiety (06/29/17) Alcohol abuse (11/27/12) Anxiety Dyspepsia Epigastric pain History of sore throat Malignant neoplasm of right lung Melena Palliative care patient Pancreatitis, acute Rash of face Thrush Tubular adenoma of colon Weight loss Surgical History colonoscopy (01/19/15) Also had a decompress colonoscopy with Dr Haresh Vásquez at [facility] on 06/09/18 for significant colon distention seen on CT scan, no prep done,therapeutic, diagnositc, still due for repeat on 01/19/25 History of lung biopsy History of surgery on upper extremity left Status post cataract extraction and insertion of intraocular lens of left eye (11/05/18) Family History Father Essential hypertension Hyperlipidemia Paternal Uncle Heart disease Stroke Cerebral hemorrhage Hypertension Brother Cancer head and neck cancer - smoker Social History Smoking/Tobacco Use Status: Former Tobacco Use Quit Date: 06/05/98 Tobacco: How many years used: 34 Smokeless tobacco user: chewing tobacco Quit status: not considering quitting Smoking risk assessment performed?: Yes Alcohol Intake: former Drug use: Occasionally Substance use type: marijuana Adopted: No Foster care: No Household members: other Details: Director Physical Therapy Care Provider 26/12 Housing: other Details: Care Bed at this time Number of Children: 0 Communication Needs: None Do you need help understanding health information?: Often current occupation: not working Current gender identity: male How often do you talk on the phone with friends or family?: three or more times per week How often do you get together with friends or relatives?: three or more times per week Panel score (0-1 are the most socially isolated patients): 1 What type of physical activity do you participate in: none and other Details: started lifting weights Frequency: daily Seatbelt use: always Drive intox or ride w/intox maintenance 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
--- NOTE | 2022-11-08 10:17 | CMPROGNOTE_ITS ---
Date of service: 11/08/22 Time of Service: 10:17 Care Management Progress Note Progress Note Text Progress Note Text: S/O: Palliative met with Iggy today. Dr. Damon suggests a family meeting with family and WILL/Ellie to discuss goals of placement. SNF referral to the [facility] is pending, CM left a message for Nikki. Yesterday, CM spoke to Ellie Jay, his [facility] case packer, who stated that she has been working on placement from the community for several months, as his care is becoming too much for his elderly parents. She stated that the family agreed to have him placed at [facility], but it is currently closed to admissions. Ellie reported that recently Iggy's family became agreeable to him going to the [facility]. CM faxed the referral to the [facility] at their request. CM will continue to follow. A: Iggy is a 67 year old male admitted to [facility] on 11/05/22 for acute hypoxic respiratory failure. P:? Anticipate, Iggy will return home with New [facility] PT/OT and resumption of community supports vs SNF once medically cleared. Transportation dependent on dispo. He will follow up with community providers and discharge plan of care. CM will continue to follow.?
--- NOTE | 2022-11-08 13:15 | DI.US_ITS ---
APPROVED REPORT EXAM: Comprehensive 2D, Doppler, and color-flow Echocardiogram Patient Location: In-Patient Room/Bed: 228 Shipping Supervisor: Ge Barr RDMS, RVT Indications: Question of CHF, Lung carcinoma Other Information Study Quality: Fair. Technically limited study due to body habitus, inability to position patient exa m done supine on stretcher. Conclusion Technically limited study Normal left ventricular wall thickness and chamber size. Ejection fraction is 60%. Wall motion appe ars normal Right ventricle and right atrium are not well visualized Left atrium is normal in size No structural or hemodynamically significant valvular disease is identified Estimated right ventricular systolic pressure is 24 mmHg Wall motion Left Ventricle Technically limited parasternal views/ The overall left ventricular systolic function appears normal. There is normal LV segmental wall motion. There is no ventricular septal defect visualized. LVEF is 60%. Right Ventricle Right ventricle is not well visualized. Right ventricular systolic function could not be assessed. Th e RVSP is 23.6 mmHg. Atria The left atrium size is normal. Right atrium is not well visualized. The interatrial septum is intac t with no evidence for an atrial septal defect. Aortic Valve The aortic valve is normal in structure. Aortic valve is trileaflet. There is no aortic valvular sten osis. No aortic regurgitation is present. Mitral Valve The mitral valve is normal in structure. No evidence of mitral valve stenosis. Trace mitral regurgita tion. Tricuspid Valve The tricuspid valve is normal in structure. There is no tricuspid valve stenosis. Trace tricuspid reg urgitation. Pulmonic Valve Pulmonic valve is grossly normal in structure. There is no pulmonic valvular stenosis. There is no p ulmonic valvular regurgitation. Great Vessels The aortic root is normal in size. The ascending aorta is normal in size. Aortic arch is normal in ca liber. IVC is normal in size and collapses >50% with inspiration. Pericardium There is no pericardial effusion. 2D Dimensions Ao Root d 3.10 cm M: 3.1 - 3.7 LV Vol A2C d MOD 72.7 mL Ao Asc Diam d 3.27 cm M: 2.6 - 3.4 LV Vol A4C d MOD 52.0 mL LVEF (Santamaria's) 61.20 % M: 52 - 72 LA vol/ BSA A4C s A-L 12.8 mL/m2 LV Volume 51.72 mL M: 62 - 150 LA Area A4C s MOD 9.70 cm2 LV Volume Index 30.97 mL/m2 M: 34 - 74 LV EF A4C MOD 64.4 % LV Vol Biplane MOD 64.6 mL LV EF A2C MOD 60.7 % LV EF Biplane MOD 61.2 % SV 39.56 mL SV Index 23.75 mL/m2 LV Diastology MV E' medial 0.090 (>0.07 m/s) E/A Ratio 0.8 LV E/e MED 8.15 (<14) MV E Vmax 0.74 (0.4-1.3 m/s) MV E' lateral 0.084 (>0.1 m/s) MV A Vmax 0.90 (0.4-1.3 m/s) LV E/e LAT 8.75 (<14) MV E/A Ratio 0.82 MV E/E' medial 8.19 MV E/E' lateral 8.79 Aortic Valve LVOT Area 3.61 cm2 AoV Area Vmax 3.32 cm2 LVOT Vmax 1.23 m/s AoV Area/ BSA (Vmax) 1.99 cm2/m2 LVOT Mean Benjy. 0.75 m/s FLOWER Mean Benjy. 3.00 cm2 LVOT Peak Grad 6.1 mmHg FLOWER Mean Benjy. Index 1.80 cm2/m2 LVOT Mean Grad 2.8 mmHg LVOT VTI 0.217 m LVOT Diam s 2.10 cm AoV Vmax 1.34 m/s Velocity Ratio 0.92 AoV Mean Benjy. 0.91 m/s AoV Peak Grad 7.2 mmHg LVOT SV 78.41 mL AoV Mean Grad 3.7 mmHg AoV VTI 0.232 m AoV Area VTI 3.38 cm2 AoV Area/ BSA (VTI) 2.03 cm/m2 Mitral Valve MV DT 261 (160-240 msec) MV PHT 76 msec MV Area PHT 2.91 cm2 Tricuspid Valve TR Peak Grad 20.5 mmHg TR Vmax 2.27 m/s RA Pressure 3.00 mmHg RVSP (TR) 23.6 mmHg
--- NOTE | 2022-11-08 14:33 | PT.INNT ---
Date of service: 11/08/22 Time of Service: 09:48 PT Notes Visit Reasons: AcuteHypoxicRespiratoryFailure,Multifocalpneumonia This therapist notices upon entering the room that patient does not have his supplemental O2 on, O2 sat 84%. Reapplied nasal cannula, notified nursing. Patient remained <90% SaO2 when this therapist went back several minutes later. Hold therapy until SaO2 improves.
--- NOTE | 2022-11-08 14:53 | W.PALLCONSUL ---
Date of service: 11/08/22 Time of Service: 14:53 History of Present Illness Narrative: Mr. Iggy Gimenez is a 67-year-old gentleman With history of parkinsonism, probable tardive dyskinesia, memory loss/dementia, history of alcohol abuse (sober since 2019, history of confabulation) and mood disorder and pulmonary embolism (on DOAC). He was admitted to [facility] 3 days ago with bilateral pneumonia, COPD exacerbation and respiratory failure with hypoxia/hypercarbia. Today I met with patient in his room, spoke with his mother on the phone, and majority of history from notes in [facility] chart. Patient is poor historian. As per notes, patient has lived his whole life with his parents. 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 The confabulation is longstanding and chronic. 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 However since 2018 he has had decline with trouble maintaining weight and worsening cognitive abilities, unable to care for himself. Notes say that his parents (in their 90s) cannot walk or take care of him (this includes giving him his medicines, preparing all his food, assisting him with ADLs). In the hospital he has been followed by OT (needs services), PT, [employer] [employer] (they note mild to moderate dysphagia due to lingual weakness and dyskinesia with reduced sensory awareness in the setting of cognitive impairment) they are recommending modified diet Care Team: Primary Care physician:Dr. Ybarra Neurologist: Dr. Osorio Choices for Care: Ellie Jay pillowcase folder. Social HX: As per neurology notes, never . Has lived his whole life with parents (mother is 91 and father is 94) . 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 Brother Mj also lives with them. Hobbies: Dad says that he used to like to sing. Used to play yatzee and bingo. Parents report that he used to drive. Mom says that he gave up a year ago. Mother does the driving at this point. Also daughter Kerri (as per Ellie, not that involved) Additional services prior to admission: As per CM: High needs choices for care, Genet Jay's pillowcase folder ([facility]). RN INTERN for 1 hour 5 days weekly (bathing, help make his bed, played games with him, took him for walks). Phone call today with Ellie Jay. Impression of currents health status: Patient: Getting better Mom: He's gone downhill in the last year: walking is more unsteady and memory is worse. What bothers you the most: Patient: I would rather be home Mother: I can no longer take care of him, I am getting too old What worries you the most: Patient: That I am sick Mom: He can't do too much, it's quite a job to take care of him, give him things to eat and take care of him. Function: Ambulation: Walks with walker at home. ADLs: Feeds self. Unknown if able to dress self. Uses incontinence pads. iADLs:Needed spotting in shower due to unsteadiness. Mom has handles finances, for years. Hearing:OK Vision: reading glasses. Palliative Performance Scale % Ambulation Activity and Evidence of Disease Self Care Intake Level of Consciousness 100 Full Normal activity, no evidence of disease Full Normal Full 90 Full Normal activity, some evidence of disease Full Normal Full 80 Full Normal activity with effort, some evidence of disease Full Normal or reduced Full 70 Reduced Unable to do normal work, some evidence of disease Full Normal or reduced Full 60 Reduced Unable to do hobby or some housework, significant disease Occasional assist necessary Normal or reduced Full or confusion 50 Mainly sit/lie Unable to do any work, extensive disease Considerable assistance required Normal or reduced Full or confusion 40 Mainly in bed Unable to do any work, extensive disease Mainly assistance Normal or reduced Full, drowsy, or confusion 30 Totally bed bound Unable to do any work, extensive disease Total care Reduced Full, drowsy, or confusion 20 Totally bed bound Unable to do any work, extensive disease Total care Minimal sips Full, drowsy, or confusion 10 Totally bed bound Unable to do any work, extensive disease Total care Mouth care only Drowsy or coma 0 - - - - Patient Score: 50-60 Spiritual history: Roman Catholic Palliative review of systems: Pain: Denies today. Dyspnea: Denies GI symptoms: Denies Appetite: Patient reports appetite is good. Mom says he has gotten thin, but no dramatic weight lost in the last year. PCP notes he is taking protein supplement at home to maintain weight. Depression: Anxiety: PCP and neurology notes discuss increase in anxiety since 2018. Emotional Distress: He denies Spiritual/Existential Distress: Labs: Cr: 0.9 Liver panel: Normal Albumin: 3.0 at admission CBC: Mild anemia only since admission Advanced Care Planning: Advanced Directive: On file from 2018. At that time desired full code, trial of intubation, certain limitations outlined in document. Health Care Agent: Vee Urias (91-year-old mother), alternate Haresh Urias (94-year-old father) COLST: None Limitations: Assessment and Plan Assessment and plan (1) Palliative care encounter: Status: Acute Assessment and plan: Patient appropriate for ongoing involvement of palliative care team after discharge. Parents are struggling with transitioning him to placement outside of the home. He failed transition to adult home in the community several years ago. At this point he would need to go to long-term home given his medical challenges and therefore needs SNF placement. See case management notes. This hospitalization presents an opportunity for him to go to subacute rehab in a SNF after discharge, with the opportunity to transition to long-term placement. Coordination and planning between case management, family, choices for care pillowcase folder and patient now will increase likelihood of patient's successful transition to new living situation, which represents a huge change for him (as well as his family). Recommend: -In person or video meeting with parties mentioned above to coordinate successful transition to subacute rehab. Palliative care team happy to be involved as needed. -We will continue to follow patient wherever he is discharged. (2) Advanced care planning/counseling discussion: Status: Acute Assessment and plan: Advanced directive reviewed and discussed briefly with patient. Also discussed with mother on the phone. Brief discussion on CODE STATUS with patient. He would like to receive attempts at cardiopulmonary resuscitation should his heart stop. Unknown if patient has DURABLE POWER OF COUNSELING DEPARTMENT CHAIR for finances or guardianship in place. I was unable to contact choices for care pillowcase folder today. (addendum 11/09/22 PC with Ellie, there is no snf plan for guardianship or DPOA after parents no longer able to do this, Sibs Mj and Kerri not obvious choice). Patient appears totally oriented today but has this history of chronic confabulation. It will be challenging to determine if he has capacity to make decisions given the situation. I think would be very helpful to get additional background from family and pillowcase folder going forward. Recommend: -Patient currently full code. His choices listed in his advance directive indicate a trial of intubation should he have respiratory failure. It also allows for withholding CPR should he have a quite poor prognosis (i.e. unable to communicate with family and friends, have incapacitating pain, being on consciousness or unaware of his surroundings). -Would be helpful to have family meeting with [facility] pillowcase folder to include discussion of whether patient has power of workers compensation defense attorney, if he has guardianship or if there are plans for guardianship as needed in the future. Given his decline in the last few years, it is likely he will become incapacitated in the next few years and there is benefit to discussing this while his parents are still cognitively intact. 20m with advanced care planning today. (3) Community acquired pneumonia: Status: Acute (4) Acute respiratory failure with hypoxia and hypercarbia: Status: Acute (5) Parkinsonism: Status: Chronic (6) Anxiety with somatic features: Status: Chronic (7) History of lung cancer: Status: Acute (8) Memory loss: Status: Acute (9) Frailty syndrome in geriatric patient: Status: Acute [facility] All Active Problems (Updated 11/09/22 @ 08:00 by Kathy Damon MD) Frailty syndrome in geriatric patient (Acute) History of lung cancer (Acute) Advanced care planning/counseling discussion (Acute) Palliative care encounter (Acute) Anemia (Chronic) Hyperglycemia (Acute) Sepsis (Acute) Hx pulmonary embolism (Chronic) Elevated CPK (Acute) Acute respiratory failure with hypoxia and hypercarbia (Acute) Community acquired pneumonia (Acute) Leukocytosis (Acute) Hypoalbuminemia (Acute) Parkinsonism (Chronic) Urinary incontinence (Acute) Pseudobulbar affect (Acute) Unintentional weight loss (Acute) Chronic anticoagulation (Chronic) Tardive dyskinesia (Chronic) Cervicalgia (Acute) Anxiety with somatic features (Chronic) chest wall pain, globus sensation, abdominal pain, shortness of breath Asthma-COPD overlap syndrome (Acute) GERD (gastroesophageal reflux disease) (Chronic) Depressive disorder (Chronic) Confabulation (Chronic) Memory loss (Acute) Non compliance w medication regimen (Chronic) Chest wall pain, chronic (Acute) Pharyngoesophageal dysphagia (Acute) Globus sensation (Acute) Vitamin D deficiency (Acute) Hypocalcemia (Chronic) Pulmonary embolism (Chronic 12/20/18) CT Report, Started on Eliquis Constipation (Chronic) Cognitive impairment (Chronic) [facility] progress note: 11/13/18, mild to moderate Chronic alcoholic pancreatitis (Acute) Umbilical hernia (Acute) Tubular adenoma of colon (Acute 05/04/09) 01/19/15 NO adenoma on repeat colonoscopy Malignant neoplasm of unspecified part of right bronchus or lung (Acute 10/04/17) Dyspepsia (Acute 04/26/16) Chronic obstructive pulmonary disease (Chronic 03/22/17) moderately severe 03/07/17: FEV1/FVC 1.82/3.48, 52% (+) Bronchodilator response compared to PFT in 2007, 800cc decline in FVC & 460cc decline in FEV1 Anxiety (Chronic 09/17/14) Alcohol abuse, in remission (Acute 04/26/16) Medical History Abdominal pain Adjustment disorder with anxiety (06/29/17) Alcohol abuse (11/27/12) Anxiety Dyspepsia Epigastric pain History of sore throat Malignant neoplasm of right lung Melena Palliative care patient Pancreatitis, acute Rash of face Thrush Tubular adenoma of colon Weight loss Surgical History colonoscopy (01/19/15) Also had a decompress colonoscopy with Dr Haresh Vásquez at [facility] on 06/09/18 for significant colon distention seen on CT scan, no prep done,therapeutic, diagnositc, still due for repeat on 01/19/25 History of lung biopsy History of surgery on upper extremity left Status post cataract extraction and insertion of intraocular lens of left eye (11/05/18) Family History Father Essential hypertension Hyperlipidemia Paternal Uncle Heart disease Stroke Cerebral hemorrhage Hypertension Brother Cancer head and neck cancer - smoker Social History Smoking/Tobacco Use Status: Former Tobacco Use Quit Date: 06/05/98 Tobacco: How many years used: 34 Smokeless tobacco user: chewing tobacco Quit status: not considering quitting Smoking risk assessment performed?: Yes Alcohol Intake: former Drug use: Occasionally Substance use type: marijuana Adopted: No Foster care: No Household members: other 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: Manufacturing Intern Care 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 26/12 Housing: other Details: Care Bed at this time Number of Children: 0 Communication Needs: None Do you need help understanding health information?: Often current occupation: not working Current gender identity: male How often do you talk on the phone with friends or family?: three or more times per week How often do you get together with friends or relatives?: three or more times per week Panel score (0-1 are the most socially isolated patients): 1 What type of physical activity do you participate in: none and other Details: started lifting weights Frequency: daily Seatbelt use: always Drive intox or ride w/intox cart 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 Exam Narrative Exam Narrative: Awake, pleasant thin elderly gentleman. Edentulous. Difficult for this interviewer to understand. Hearing appears good. Oriented to day, date, month, year, president Some confabulation noted (reports that he drives a purple Radha, mom reports that family has a subaru). Results Last Vital Signs Temp 36.6 C 11/08/22 14:41 Pulse 74 11/08/22 14:41 Resp 18 11/08/22 14:41 BP 114/72 11/08/22 14:41 Pulse Ox 95 11/08/22 14:41 Labs 11/09/22 06:45 11/09/22 06:45 Labs: Laboratory Results - last 24 hr 11/08/22 11/08/22 11/08/22 06:40 06:40 06:40 WBC 10.69 RBC 3.74 L Hgb 10.8 L Hct 33.2 L MCV 89 MCH 28.9 MCHC 32.5 RDW 12.1 Plt Count 286 MPV 9.8 Immature Gran % 0.7 Neutrophils % 82.6 Lymphocytes % 11.0 Monocytes % 5.3 Eosinophils % 0.2 Basophils % 0.2 Nucleated RBC % 0.0 Absolute Neutrophils 8.83 H Absolute Lymphocytes 1.18 L Absolute Monocytes 0.57 Absolute Eosinophils 0.02 Absolute Basophils 0.02 Sodium 143 Potassium 3.7 Chloride 107 Carbon Dioxide 31.9 Anion Gap 4.1 BUN 21 H Creatinine 0.9 Est GFR (CKD-EPI 2020) 93.03 Glucose 90 Calcium 8.6 Magnesium 2.4 C-Reactive Protein 15.38 H Procalcitonin 1.3
--- NOTE | 2022-11-08 15:03 | PT.INTREAT ---
Date of service: 11/08/22 Time of Service: 14:42 PT Notes Visit Reasons: AcuteHypoxicRespiratoryFailure,Multifocalpneumonia Inpatient Physical Therapy Treatment Note [facility] Date: 11/08/22 PRECAUTIONS: Fall, standard, activity as tolerated SUBJECTIVE: patient supine in bed, agreeable to therapy. Complains of being tired, just got back from diagnostic imaging. OBJECTIVE: PAIN: none reported THEREX: Patient participates in supine and seated exercises including heel slides, bridges, long arc quads, seated marches, heel raises, toe raises, sit to stands. ASSESSMENT: Patient tolerates therapy well PLAN: continue strengthening per plan of care TREATMENT CODE/TIME: 46171 ther ex 15 minutes beginning at 14:42
[2022-11-08 16:01] LABS: Streptococcus Pneumoniae Ag, U Negative (Negative)
--- NOTE | 2022-11-08 17:00 | CHAPLAIN ---
Iggy was resting in bed when visited. Dr. Damon let me know that Iggy is Faith and attends [employer] with his family. When I asked Iggy if he attends the [facility] and would he like me to call the [facility] and let them know he's here. He indicated he did. When I called the [facility] and spoke to Pastor Santiago, he didn't recognize Iggy's name, but said he'll check with staff members who have been there longer. I offered a prayer with Iggy.
[2022-11-08] MEDS: Insulin Aspart 300 UNITS/3 ML PEN SC (18:02)
--- NOTE | 2022-11-08 19:18 | PGE_ITS ---
Date of Service Date of service: 11/08/22 Time of Service: 18:30 Assessment and Plan Assessment and plan (1) Sepsis: Status: Acute Assessment and plan: Due to PNA, present on admission. Blood cx negative. Urine legionella negative. Urine Strep Ag is negative. He is not really improving and CXR is showing worsening. I have substituted ceftriaxone with zosyn. Continue doxycycline. MRSA nares negative. Off of vancomycin. Seen by speech therapy - minced/moist diet w/ thin liquids; 1:1 assist recommended. Lactates normalized. (2) Acute respiratory failure with hypoxia and hypercarbia: Status: Acute Assessment and plan: Due to bilateral pneumonia present on admission in addition to a possible underlying COPD exacerbation. I have changed abx as above due to worsening on CXR and lack of clinical improvement. Continue steroids. Encourage pulmonary toilet. (3) Community acquired pneumonia: Status: Acute Assessment and plan: As above (4) Asthma-COPD overlap syndrome: Status: Acute Assessment and plan: As above. Would continue steroids as well. (5) Acute lactic acidosis: Status: Resolved Assessment and plan: Resolved. Off of IVF. (6) FREDDY (acute kidney injury): Status: Resolved Assessment and plan: In setting of sepsis, elevated CPK. Has a lomax. . (7) Abdominal pain: Assessment and plan: CT abdomen negative. Likely chronic pain, No further workup is planned. (8) Elevated CPK: Status: Acute Assessment and plan: Improved. Will continue to monitor. No signs of rhabdomyolysis. (9) Parkinsonism: Status: Chronic Assessment and plan: Followed by Dr Valladares. Not normally on medications. PT/OT/speech consulted. (10) Tardive dyskinesia: Status: Chronic Assessment and plan: Continue tetrabenazine. Seen by speech therapy: minced/moist diet, thin liquids, 1:1 assist. (11) Hx pulmonary embolism: Status: Chronic Assessment and plan: Continue apixaban (12) Hyperglycemia: Status: Acute Assessment and plan: A1C 5.4. Continue SSI. (13) DVT prophylaxis: Status: Resolved Assessment and plan: On chronic apixaban. (14) Discharge planning issues: Status: Resolved Assessment and plan: Full code. Seen by palliative care. PT/OT, speech following Continues to require hospitalization. Subjective Subjective Interval history since last seen: Mr Urias states he is feeling better. He has been on 3L of O2 today. Reports coughing up green sputum. Denies dizziness, CP, feels a little SOB, denies n/v. Exam Narrative Exam Narrative: General: Middle-aged male On NC at 3L of 2, no dyspnea/tachypnea/cyanosis, no stereotypic lip smacking movements of tardive dyskinesia today HEENT: EOMI, MMM Cardiovascular: RRR, no m/r/g Lungs: Diminished breath sounds B posteriorly Gastrointestinal: soft, nontender, nondistended Genitourinary: Has a lomax Extremities: no edema BLEs, 2+ pedal pulses B, no cyanosis, B feet are warm. Objective Last Vital Signs Temp 36.6 C 11/08/22 14:41 Pulse 78 11/08/22 15:57 Resp 18 11/08/22 14:41 BP 114/72 11/08/22 14:41 Pulse Ox 91 L 11/08/22 15:57 Laboratory Results - last 24 hr 11/05/22 11/08/22 11/08/22 22:37 06:40 06:40 WBC RBC Hgb Hct MCV MCH MCHC RDW Plt Count MPV Immature Gran % Neutrophils % Lymphocytes % Monocytes % Eosinophils % Basophils % Nucleated RBC % Absolute Neutrophils Absolute Lymphocytes Absolute Monocytes Absolute Eosinophils Absolute Basophils Sodium 143 Potassium 3.7 Chloride 107 Carbon Dioxide 31.9 Anion Gap 4.1 BUN 21 H Creatinine 0.9 Est GFR (CKD-EPI 2020) 93.03 Glucose 90 Calcium 8.6 Magnesium 2.4 C-Reactive Protein 15.38 H Procalcitonin 1.3 Ur Strep pneumoniae Ag Negative 11/08/22 06:40 WBC 10.69 RBC 3.74 L Hgb 10.8 L Hct 33.2 L MCV 89 MCH 28.9 MCHC 32.5 RDW 12.1 Plt Count 286 MPV 9.8 Immature Gran % 0.7 Neutrophils % 82.6 Lymphocytes % 11.0 Monocytes % 5.3 Eosinophils % 0.2 Basophils % 0.2 Nucleated RBC % 0.0 Absolute Neutrophils 8.83 H Absolute Lymphocytes 1.18 L Absolute Monocytes 0.57 Absolute Eosinophils 0.02 Absolute Basophils 0.02 Sodium Potassium Chloride Carbon Dioxide Anion Gap BUN Creatinine Est GFR (CKD-EPI 2020) Glucose Calcium Magnesium C-Reactive Protein Procalcitonin Ur Strep pneumoniae Ag Objective Narrative Objective Narrative: CXR: Interval worsening of the bilateral infiltrates, particularly in the left lung base, since the prior examination.? Echo: Normal left ventricular wall thickness and chamber size.? Ejection fraction is 60%.? Wall motion appears normal Right ventricle and right atrium are not well visualized Left atrium is normal in size No structural or hemodynamically significant valvular disease is identified Estimated right ventricular systolic pressure is 24 mmHg Time Spent with Patient Time Spent with Patient: 25-34 minutes Time was spent: preparing to see the patient(eg.review tests), obtaining and/or reviewing separately otained hiistory, ordering medications,tests, procedures, referring, communicating with other health managed care coordinator, indepentently interpreting results, counseling the patient and care coordination
[2022-11-08] MEDS: Mirtazapine 15 MG TAB 45 MG PO (22:03)
[2022-11-09] VITALS (14 sets, daily range): BP systolic 94–118; BP diastolic 53–72; PULSE 67–86; RESP 1–24; TEMP 36.2–37.3; O2SAT 89–97
[2022-11-09] MEDS: PIPERACILLIN/TAZO 3.375 GM in Normal Saline 50 ML IVPB ×4 (04:23→22:58)
[2022-11-09] MEDS: Normal Saline Flush 10 ML SYR IVP (04:24)
[2022-11-09] MEDS: DOXYCYCLINE 100 MG in Normal Saline 100 ML IVPB ×2 (05:44→19:42)
[2022-11-09 07:05] LABS: Abs Immature Grans 0.14 10^3/uL (0.0-0.06); Absolute Basophil Count 0.02 10^3/uL (0.0-0.2); Absolute Eosinophil Count 0.04 10^3/uL (0.0-0.7); Absolute Lymphocyte Count 1.33 10^3/uL (1.2-3.4); Absolute Monocyte Count 0.65 10^3/uL (0.1-0.8); Absolute Neutrophil Count 7.33 10^3/uL (1.2-6.7); Basophils % 0.2; Eosinophils % 0.4; Immature Grans % 1.5; MCH 28.6 pg (27.0-33.0); MCHC 32.4 % (32.0-36.0); MCV 89 fL (80-95); MPV 9.6 fL (8.0-11.0); Monocytes % 6.8; Neutrophils % 77.1; Platelet Count 294 10^3/uL (130-400); RBC 3.84 10^6/uL (4.36-5.78); RDW 12.1 % (11.8-14.1); RDW-SD 38.9 fL; WBC 9.51 10^3/uL (4.4-10.8)
[2022-11-09 07:24] LABS: Anion Gap 4.4 mmol/L (3-11); BUN 23 mg/dL (7-18); CO2 30.6 mmol/L (21.0-32.0); Calcium 8.5 mg/dL (8.5-10.1); Chloride 106 mmol/L (98-107); Estimated GFR 81.98 (mL/min/1.73m2); Glucose 85 mg/dL (74-106); Magnesium 2.4 mg/dL (1.8-2.4); Potassium 3.7 mmol/L (3.5-5.1); Sodium 141 mmol/L (136-145)
[2022-11-09] MEDS: Albuterol/Ipratropium 3 ML UPD VIAL UPD ×4 (07:39→19:12)
[2022-11-09] MEDS: Budesonide/Formoterol 160/4.5 6 GM 60 PUFF INH IH ×2 (07:42→19:17)
[2022-11-09] MEDS: Tiotropium Bromide-Respimat 10 PUFF INH 2 PUFF IH (07:43)
[2022-11-09] MEDS: Apixaban 5 MG TAB PO ×2 (08:04→19:36)
[2022-11-09] MEDS: Pantoprazole 40 MG TABCR PO (08:04)
[2022-11-09] MEDS: predniSONE 20 MG TAB 40 MG PO (08:04)
[2022-11-09] MEDS: Cholecalciferol (Vitamin D3) 1,000 UNIT TAB 1000 UNITS PO (08:04)
[2022-11-09] MEDS: FLUoxetine 20 MG CAP PO (08:04)
[2022-11-09] MEDS: guaiFENesin 600 MG TABCR 1200 MG PO ×2 (08:04→19:36)
[2022-11-09] MEDS: clonazePAM 1 MG TAB PO ×2 (08:05→19:36)
[2022-11-09] MEDS: Thiamine 100 MG TAB PO (08:05)
--- NOTE | 2022-11-09 11:10 | W.PM.PROGNOT ---
Date of Service Date of service: 11/09/22 Time of Service: 12:00 Assessment and Plan Assessment and plan (1) Sepsis: Status: Acute Assessment and plan: Improving, Continue zosyn. Continue doxycycline. (2) Acute respiratory failure with hypoxia and hypercarbia: Status: Acute Assessment and plan: Due to bilateral pneumonia present on admission in addition to a possible underlying COPD exacerbation. Continue steroids. Encourage pulmonary toilet. (3) Community acquired pneumonia: Status: Acute Assessment and plan: As above (4) Asthma-COPD overlap syndrome: Status: Acute Assessment and plan: As above. Continue steroids (5) Acute lactic acidosis: Status: Resolved (6) FREDDY (acute kidney injury): Status: Resolved Assessment and plan: . (7) Abdominal pain: Assessment and plan: CT abdomen negative. Likely chronic pain, No further workup is planned. (8) Elevated CPK: Status: Resolved (9) Parkinsonism: Status: Chronic Assessment and plan: Followed by Dr Valladares. Not normally on medications. PT/OT/speech consulted. (10) Tardive dyskinesia: Status: Chronic Assessment and plan: Continue tetrabenazine. Seen by speech therapy: minced/moist diet, thin liquids, 1:1 assist. (11) Hx pulmonary embolism: Status: Chronic Assessment and plan: Continue apixaban (12) Hyperglycemia: Status: Acute Assessment and plan: A1C 5.4. Continue SSI. (13) DVT prophylaxis: Status: Resolved Assessment and plan: On chronic apixaban. (14) Discharge planning issues: Status: Resolved Assessment and plan: Full code. Seen by palliative care. PT/OT, speech following Continues to require hospitalization. Discussed with Dr Hopper Subjective Subjective Patient reports: no new complaints, tolerating a regular diet, bowel movement and afebrile; denies diarrhea, nausea, vomiting or shortness of breath Interval history since last seen: Comfortable, semi fowlers in bed, visitor in the room. Answering questions appropratley Exam Narrative Exam Narrative: . Const General: cooperative and no acute distress Orientation: alert, awake and oriented x3 HENMT Head: normal to inspection Eyes General: appearance normal, both eyes and all related structures Neck Neck: normal visual inspection Lymphatic: no lymphadenopathy noted Chest Chest: normal inspection of the chest Resp Effort & Inspection: normal respiratory effort and able to speak in complete sentences Auscultation: clear to auscultation bilaterally (diminished in the bases posteriorly) Cardio Rate: regular rate Rhythm: regular rhythm GI Inspection: normal to inspection Palpation: soft, no masses and nontender Auscultation: normal bowel sounds Skin General skin exam: no rashes or lesions noted Neuro General: patient alert and patient awake Motor: muscle tone normal throughout Sensory Exam: no sensory deficits noted Extrem General: normal to inspection, full ROM and capillary refill normal Psych Appearance: grossly normal Mental Status: mental status grossly normal Speech and Movement: speech and movement normal Affect: normal affect Thought Process: normal Objective Last Vital Signs Temp 36.6 C 11/09/22 11:03 Pulse 78 11/09/22 11:03 Resp 17 11/09/22 11:03 BP 100/62 11/09/22 11:03 Pulse Ox 90 L 11/09/22 11:03 Laboratory Results - last 24 hr 11/05/22 11/09/22 11/09/22 22:37 06:45 06:45 WBC 9.51 RBC 3.84 L Hgb 11.0 L Hct 34.0 L MCV 89 MCH 28.6 MCHC 32.4 RDW 12.1 Plt Count 294 MPV 9.6 Immature Gran % 1.5 Neutrophils % 77.1 Lymphocytes % 14.0 Monocytes % 6.8 Eosinophils % 0.4 Basophils % 0.2 Nucleated RBC % 0.0 Absolute Neutrophils 7.33 H Absolute Lymphocytes 1.33 Absolute Monocytes 0.65 Absolute Eosinophils 0.04 Absolute Basophils 0.02 Sodium 141 Potassium 3.7 Chloride 106 Carbon Dioxide 30.6 Anion Gap 4.4 BUN 23 H Creatinine 1.0 Est GFR (CKD-EPI 2020) 81.98 Glucose 85 Calcium 8.5 Magnesium 2.4 C-Reactive Protein 10.00 H Ur Strep pneumoniae Ag Negative Time Spent with Patient Time Spent with Patient: 25-34 minutes Time was spent: preparing to see the patient(eg.review tests), ordering medications,tests, procedures, referring, communicating with other health health care technician, indepentently interpreting results, counseling the patient and care coordination
--- NOTE | 2022-11-09 14:12 | PT.INTREAT ---
Date of service: 11/09/22 Time of Service: 11:32 PT Notes Visit Reasons: AcuteHypoxicRespiratoryFailure,Multifocalpneumonia Inpatient Physical Therapy Treatment Note [facility] Date: 11/09/22 PRECAUTIONS: Fall, standard, activity as tolerated, on supplemental O2 via nasal cannula SUBJECTIVE: Morning: patient supine in bed, agreeable to therapy. Afternoon, patient still sitting up in w/c, agreeable to get back into bed. OBJECTIVE: PAIN: none reported BED MOBILITY/TRANSFERS Rolling L/R: mod assist with verbal and tactile cues Supine-sit: Max assist with verbal and tactile cues Sit-supine: mod assist with verbal and tactile cues Sit-stand: min assist Stand-sit: mod assist with verbal and tactile cues for safety awareness Bed-Chair: mod assist Chair-bed: mod assist GAIT Assistive Device: fww Weight bearing: full Assist: mod to max Distance: 4 feet Deviation: extreme slumped forward posture, reduced step height, reduced step length, tendency to try to sit without warning and without properly lining up to intended seat. ASSESSMENT: Patient is on 1.5 L at start of therapy, SaO2 92%. Sits up in bed, SaO2 drops to 90%. Transfer to chair, drops to 84%. Cued to breathe through nose. Respiratory therapy comes in, okays increasing O2 to 2L/min. SaO2 rebounds to 88% after several minutes, however does not go above 88%. Discontinued therapy in the am. Pm, assisted COMMERCIAL HOUSEKEEPER to get patient back to bed, supplemental O2 still set to 2L/min, patient's SaO2 90%, after transfer drops to 84%. PLAN: Continue strengthening per plan of care as patient is able. TREATMENT CODE/TIME: morning 48321 26 minutes beginning at 11:32, afternoon 32436 22 minutes beginning at 12:45
--- NOTE | 2022-11-09 18:08 | PDOC.STREC ---
Date of service: 11/09/22 Time of Service: 18:08 Speech Therapy Recommendations Report ST Recommendations: NON-Treatment note COMPUTER ANIMATOR requested patient dinner tray to be held in order that COMPUTER ANIMATOR could conduct treatment session with meal to assess tolerance and train strategies, however, the tray was given to the patient by mistake and had finished dinner/full by the time COMPUTER ANIMATOR arrived. Per SENIOR ASIC DESIGN ENGINEER, patient tolerated meal without significant s/sx aspiration, endorsed 1-2x mild throat clears. Patient was able to eat full tray. Recommendations remain unchanged based on this report, COMPUTER ANIMATOR will attempt to f/u again later this week to ensure good diet tolerance or assess for possible upgrades. Will benefit from HH or SNF COMPUTER ANIMATOR at discharge pending diet tolerance or progression. ? Diet Texture Modification(s): IDDSI Level(s) SOLIDS 5-Minced & Moist Solids LIQUIDS 0-Thin Liquids Medication Intake: Whole with 4-Extremely Thick Liquids followed by 0-Thin liquid wash. Alter medications only as advised by MD or Pharmacist RISK MANAGEMENT: HOB upright as tolerated; upright for all PO intake. Encourage physical mobility as tolerated. Oral hygiene BID/2x per day & before/after PO intake, using friction with toothbrush on all oral structures as tolerated, suction PRN Level of Assistance/Supervision: 1:1 close supervision vs assist for all PO intake PO intake only when awake/alert? Strategies/Adaptations/Assistive Equipment: Reduce auditory and/or visual distractions when eating Provide verbal and/or visual cues or 1:1 assist to use recommended strategies: Small sips and bites when eating, Slow rate of intake Alternate intake of liquids and solids Posture/Positioning Needs: Maintain upright position at least 30 minutes after meals Avoid meals/snacks 2-3 hours prior to reclining/sleeping Sleep with head of bed elevated to reduce likelihood of nocturnal reflux, ? ? Coding
[2022-11-09] MEDS: Insulin Aspart 300 UNITS/3 ML PEN SC ×2 (18:19→22:54)
--- NOTE | 2022-11-09 20:57 | CMPROGNOTE_ITS ---
Date of service: 11/09/22 Time of Service: 21:00 Care Management Progress Note Progress Note Text Progress Note Text: S/O: Iggy was sitting up in bed when CM met with him. He stated that he is feeling better today. He reported that his pharmacy informaticist visited today, which he was very happy about. CM spoke to admissions at [facility] today, which is Iggy's family's first choice for placement. Admissions stated that [facility] remains closed, but that there are beds available at [facility], and his referral could be sent there for him to transition to from this hospitalization, with a plan to transfer to [facility] once a bed becomes available. CM will discuss this with Iggy's parents, who were not available to discuss this with this afternoon. CM will continue to follow. A: Iggy is a 67 year old male admitted to [facility] on 11/05/22 for acute hypoxic respiratory failure. P:? Anticipate, Iggy will return home with New [facility] PT/OT and resumption of community supports vs SNF once medically cleared. Transportation dependent on dispo. He will follow up with? community providers and discharge plan of care. CM will continue to follow.?
[2022-11-09] MEDS: Mirtazapine 15 MG TAB 45 MG PO (22:53)
[2022-11-10] VITALS (15 sets, daily range): BP systolic 100–116; BP diastolic 55–72; PULSE 65–89; RESP 1–22; TEMP 36.3–37.4; O2SAT 87–98
[2022-11-10] MEDS: PIPERACILLIN/TAZO 3.375 GM in Normal Saline 50 ML IVPB ×4 (04:53→22:01)
[2022-11-10] MEDS: DOXYCYCLINE 100 MG in Normal Saline 100 ML IVPB ×2 (06:17→18:26)
[2022-11-10 06:42] LABS: Abs Immature Grans 0.37 10^3/uL (0.0-0.06); Absolute Basophil Count 0.03 10^3/uL (0.0-0.2); Absolute Eosinophil Count 0.08 10^3/uL (0.0-0.7); Absolute Lymphocyte Count 1.51 10^3/uL (1.2-3.4); Absolute Monocyte Count 0.79 10^3/uL (0.1-0.8); Absolute Neutrophil Count 5.78 10^3/uL (1.2-6.7); Basophils % 0.4; Eosinophils % 0.9; HCT 34.9 % (40.0-50.0); HGB 11.4 g/dL (13.5-17.5); Immature Grans % 4.3; Lymphocytes % 17.6; MCH 29.2 pg (27.0-33.0); MCHC 32.7 % (32.0-36.0); MCV 90 fL (80-95); MPV 10.1 fL (8.0-11.0); Monocytes % 9.2; Neutrophils % 67.6; Platelet Count 307 10^3/uL (130-400); RDW 12.1 % (11.8-14.1); RDW-SD 39.8 fL; WBC 8.56 10^3/uL (4.4-10.8)
[2022-11-10 07:02] LABS: Anion Gap 6.3 mmol/L (3-11); BUN 22 mg/dL (7-18); C-Reactive Protein 6.47 mg/dL (0.0-0.3); CO2 29.7 mmol/L (21.0-32.0); Calcium 8.4 mg/dL (8.5-10.1); Chloride 106 mmol/L (98-107); Estimated GFR 81.98 (mL/min/1.73m2); Glucose 82 mg/dL (74-106); Magnesium 2.5 mg/dL (1.8-2.4); Potassium 3.7 mmol/L (3.5-5.1); Sodium 142 mmol/L (136-145)
[2022-11-10 07:26] LABS: Procalcitonin 0.3 ng/mL
[2022-11-10] MEDS: Albuterol/Ipratropium 3 ML UPD VIAL UPD ×4 (07:41→19:18)
[2022-11-10] MEDS: Tiotropium Bromide-Respimat 10 PUFF INH 2 PUFF IH (07:45)
[2022-11-10] MEDS: Budesonide/Formoterol 160/4.5 6 GM 60 PUFF INH IH ×2 (07:50→19:17)
[2022-11-10] MEDS: predniSONE 20 MG TAB 40 MG PO (09:21)
[2022-11-10] MEDS: Pantoprazole 40 MG TABCR PO (09:21)
[2022-11-10] MEDS: Cholecalciferol (Vitamin D3) 1,000 UNIT TAB 1000 UNITS PO (09:21)
[2022-11-10] MEDS: Apixaban 5 MG TAB PO ×2 (09:21→19:51)
[2022-11-10] MEDS: FLUoxetine 20 MG CAP PO (09:21)
[2022-11-10] MEDS: Thiamine 100 MG TAB PO (09:21)
[2022-11-10] MEDS: clonazePAM 1 MG TAB PO ×2 (10:00→19:50)
[2022-11-10] MEDS: guaiFENesin 600 MG TABCR 1200 MG PO ×2 (10:00→19:50)
--- NOTE | 2022-11-10 10:42 | PDOC.CMPRO ---
Date of service: 11/10/22 Time of Service: 10:42 Care Management Progress Note Progress Note Text Progress Note Text: S/O: Iggy was sitting up in bed visiting with his parents when CM met with him. He answered questions but did not initiate any conversation. CM asked if Iggy would be willing to go to a SNF for short term rehab if it was recommended. His parents said they would be agreeable but Iggy was non-committal at first. CM explained that the [facility] has no bed availability and that [facility] was closed to admissions (their firtst choice). Their sister facility in [place], [facility], has availability and CM offered to send a referral there.. Iggy's parents were concerned about the distance and the ability to visit. Iggy firmly stated that he would not go there. He added that he will not consider any SNF for rehab. Iggy remains hospital level of care at this time. He has been working with PT and will continue to do so. CM suggested that we see how Iggy progresses and revisit the issue later when he is closer to discharge. All were in agreement with that plan. A: Iggy is a 67 year old male admitted to [facility] on 11/05/22 for acute hypoxic respiratory failure. P:? Anticipate, Iggy will return home with New [facility] PT/OT services and resumption of community supports, once medically cleared. PT originally recommended home health PT however today indicated that SNF may be more appropriate. At this time Iggy is not willing to consider going to a [facility] facility. When discharged, he will follow up with? community providers and discharge plan of care and transport with family. CM will continue to follow and assess for discharge concerns.?
--- NOTE | 2022-11-10 15:53 | NUR.NOTE ---
Nursing Note: Pt OOB, ambulating with PT on 2L of O2. Pulse oximeter checked and patient maintained O2 sats of 91-93% on completion of walk and improving to 97% when settled in bed. Pt compliant and in no distress.
--- NOTE | 2022-11-10 16:31 | PT.INTREAT ---
PT Notes Visit Reasons: AcuteHypoxicRespiratoryFailure,Multifocalpneumonia PRECAUTIONS: Fall, standard, activity as tolerated, on supplemental O2 via nasal cannula SUBJECTIVE: Pt in bed when approached for therapy this afternoon. Pt agreeable to participated with therapy. OBJECTIVE: ? PAIN: none reported ? BED MOBILITY/TRANSFERS? Rolling L/R: min assist with verbal and tactile cues Supine-sit: Min assist with verbal and tactile cues ? Sit-supine: min assist with verbal and tactile cues ? Sit-stand: min assist ? Stand-sit: min assist with verbal and tactile cues for safety awareness? Bed-Chair: min assist? Chair-bed: min assist ? GAIT? Assistive Device: fww ? Weight bearing: full Assist: min A/CGA? Distance:? 300' ? Deviation: Step height decreased,?Step length decreased.? Thoracic kyphosis.? Mild SOB resolved with rest.? ASSESSMENT:? Pt tolerated activity well, SA02 stay at low to mid 90's NC 2L 02 support, pt returned to bed post session. PLAN: Continue with global strengthening and general conditioning for improved mobility and activity tolerance. TREATMENT CODE/TIME: 99519 30 minutes beginning at 3:27- 3:57pm
[2022-11-10] MEDS: Mirtazapine 15 MG TAB 45 MG PO (22:14)
--- NOTE | 2022-11-10 23:33 | W.PM.PROGNOT ---
Date of Service Date of service: 11/10/22 Time of Service: 13:00 Assessment and Plan Assessment and plan (1) Sepsis: Status: Acute Assessment and plan: Improving, Continue zosyn. Continue doxycycline. (2) Acute respiratory failure with hypoxia and hypercarbia: Status: Acute Assessment and plan: Due to bilateral pneumonia present on admission in addition to a possible underlying COPD exacerbation. Continue steroids. Encourage pulmonary toilet. (3) Community acquired pneumonia: Status: Acute Assessment and plan: As above (4) Asthma-COPD overlap syndrome: Status: Acute Assessment and plan: As above. Continue steroids (5) Acute lactic acidosis: Status: Resolved (6) FREDDY (acute kidney injury): Status: Resolved Assessment and plan: . (7) Abdominal pain: Assessment and plan: CT abdomen negative. Likely chronic pain, No further workup is planned. (8) Elevated CPK: Status: Resolved (9) Parkinsonism: Status: Chronic Assessment and plan: Followed by Dr Valladares. Not normally on medications. PT/OT/speech consulted. (10) Tardive dyskinesia: Status: Chronic Assessment and plan: Continue tetrabenazine. Seen by speech therapy: minced/moist diet, thin liquids, 1:1 assist. (11) Hx pulmonary embolism: Status: Chronic Assessment and plan: Continue apixaban (12) Hyperglycemia: Status: Acute Assessment and plan: A1C 5.4. Continue SSI. (13) DVT prophylaxis: Status: Resolved Assessment and plan: On chronic apixaban. (14) Discharge planning issues: Status: Resolved Assessment and plan: Full code. Seen by palliative care. PT/OT, speech following Continues to require hospitalization. Discussed with Dr Hollis Subjective Subjective Patient reports: no new complaints, tolerating a regular diet and bowel movement; denies diarrhea, nausea or vomiting Interval history since last seen: Semi folwers in bed, brother in the room visiting. Pleasant Objective Last Vital Signs Temp 36.9 C 11/10/22 19:47 Pulse 84 11/10/22 19:47 Resp 22 11/10/22 19:47 BP 100/55 L 11/10/22 19:47 Pulse Ox 91 L 11/10/22 19:47 Laboratory Results - last 24 hr 11/10/22 11/10/22 11/10/22 05:35 05:35 05:35 WBC 8.56 RBC 3.90 L Hgb 11.4 L Hct 34.9 L MCV 90 MCH 29.2 MCHC 32.7 RDW 12.1 Plt Count 307 MPV 10.1 Immature Gran % 4.3 Neutrophils % 67.6 Lymphocytes % 17.6 Monocytes % 9.2 Eosinophils % 0.9 Basophils % 0.4 Nucleated RBC % 0.0 Absolute Neutrophils 5.78 Absolute Lymphocytes 1.51 Absolute Monocytes 0.79 Absolute Eosinophils 0.08 Absolute Basophils 0.03 Sodium 142 Potassium 3.7 Chloride 106 Carbon Dioxide 29.7 Anion Gap 6.3 BUN 22 H Creatinine 1.0 Est GFR (CKD-EPI 2020) 81.98 Glucose 82 Calcium 8.4 L Magnesium 2.5 H C-Reactive Protein 6.47 H Procalcitonin 0.3 Time Spent with Patient Time Spent with Patient: 25-34 minutes Time was spent: preparing to see the patient(eg.review tests), ordering medications,tests, procedures, referring, communicating with other health wound care physician, indepentently interpreting results, counseling the patient and care coordination
[2022-11-11] VITALS (20 sets, daily range): BP systolic 96–120; BP diastolic 57–75; PULSE 69–85; RESP 1–28; TEMP 36–36.8; O2SAT 87–97
--- NOTE | 2022-11-11 | DI.RAD_ITS ---
Exam(s) XR CHEST 2V PA LATERAL EXAM: XR CHEST 2V PA LATERAL CLINICAL HISTORY: Possible aspiration TECHNIQUE: 2D digital imaging was performed of the chest. Two images were obtained. PA and lateral views were obtained. COMPARISON: CR XR PORTABLE CHEST AP from 11/08/2022 FINDINGS: MEDIASTINUM: Normal. HEART: Normal. PULMONARY VASCULATURE: Normal. LUNGS: There has been some improvement of the bilateral predominantly basilar infiltrates since the p rior examination. PLEURAL SPACE: There is a small left pleural effusion. No right pleural effusion. No pneumothorax. BONE:Within normal limits for the patient's age. OTHER FINDINGS:Normal. IMPRESSION: Slight improvement in the bilateral basilar infiltrate since 11/08/2022. DATA REPOSITORY: RADIATION DOSE DELIVERED:
--- NOTE | 2022-11-11 | DI.RAD_ITS ---
Exam(s) RF MODIFIED SPEECH BA SWALLOW TECHNIQUE: Modified barium swallow was performed in conjunction with speech pathology. CONTRAST MATERIAL: Oral barium contrast was administered. COMPARISON: No exams were available for comparison FINDINGS: Note that this is not a dedicated esophagram, distal esophagus not evaluated. There is no evidence of aspiration or penetration of thick liquids, and barium paste. There was some aspiration with thin liquids. Speech pathology report to follow. IMPRESSION: There was some aspiration with thin liquids. RADIATION DOSE DELIVERED: kj Muse=4.23 mGy
[2022-11-11] MEDS: PIPERACILLIN/TAZO 3.375 GM in Normal Saline 50 ML IVPB ×4 (04:28→21:59)
[2022-11-11] MEDS: DOXYCYCLINE 100 MG in Normal Saline 100 ML IVPB ×2 (06:18→18:34)
[2022-11-11 06:43] LABS: Abs Immature Grans 0.32 10^3/uL (0.0-0.06); Absolute Basophil Count 0.03 10^3/uL (0.0-0.2); Absolute Eosinophil Count 0.09 10^3/uL (0.0-0.7); Absolute Lymphocyte Count 1.47 10^3/uL (1.2-3.4); Absolute Monocyte Count 0.68 10^3/uL (0.1-0.8); Absolute Neutrophil Count 4.42 10^3/uL (1.2-6.7); Basophils % 0.4; Eosinophils % 1.3; HCT 35.4 % (40.0-50.0); HGB 11.3 g/dL (13.5-17.5); Immature Grans % 4.6; MCH 28.5 pg (27.0-33.0); MCHC 31.9 % (32.0-36.0); MCV 89 fL (80-95); MPV 9.9 fL (8.0-11.0); Monocytes % 9.7; Platelet Count 310 10^3/uL (130-400); RBC 3.96 10^6/uL (4.36-5.78); RDW 11.9 % (11.8-14.1); WBC 7.01 10^3/uL (4.4-10.8)
[2022-11-11 06:51] LABS: Anion Gap 6.2 mmol/L (3-11); BUN 24 mg/dL (7-18); CO2 29.8 mmol/L (21.0-32.0); Calcium 8.4 mg/dL (8.5-10.1); Chloride 105 mmol/L (98-107); Estimated GFR 81.98 (mL/min/1.73m2); Glucose 80 mg/dL (74-106); Magnesium 2.6 mg/dL (1.8-2.4); Potassium 3.6 mmol/L (3.5-5.1); Sodium 141 mmol/L (136-145)
[2022-11-11] MEDS: Albuterol/Ipratropium 3 ML UPD VIAL UPD ×4 (07:37→19:41)
[2022-11-11] MEDS: Tiotropium Bromide-Respimat 10 PUFF INH 2 PUFF IH (07:43)
[2022-11-11] MEDS: Budesonide/Formoterol 160/4.5 6 GM 60 PUFF INH IH ×2 (07:43→19:41)
[2022-11-11] MEDS: predniSONE 20 MG TAB 40 MG PO (08:15)
[2022-11-11] MEDS: clonazePAM 1 MG TAB PO (08:15)
[2022-11-11] MEDS: Apixaban 5 MG TAB PO (08:15)
[2022-11-11] MEDS: Cholecalciferol (Vitamin D3) 1,000 UNIT TAB 1000 UNITS PO (08:15)
[2022-11-11] MEDS: Pantoprazole 40 MG TABCR PO (08:16)
[2022-11-11] MEDS: guaiFENesin 600 MG TABCR 1200 MG PO (08:16)
[2022-11-11] MEDS: FLUoxetine 20 MG CAP PO (08:28)
[2022-11-11] MEDS: Thiamine 100 MG TAB PO (10:00)
--- NOTE | 2022-11-11 12:15 | SPP_ITS ---
Date of service: 11/11/22 Time of Service: 12:15 Subjective Per nursing, patient with reduced swallow initiation and increased s/sx aspiration at breakfast. They were not comfortable feeding him minced/moist and provided him with puree textures. Patient this date contacted partially upright in bed for lunch with puree and thin liquids. He is with reduced verbal responsiveness over initial evaluation, and increased sx of oral dyskenesias. Objective/Assessment/Plan Objective Treatment Techniques & Outcomes: Patient will tolerate safest/least restrictive diet without s/sx aspiration. - Patient tolerance has reduced since initial evaluation. -PO Trials this date: Thin liquid, mildly thick liquids via straw, tsp. Puree. - Oral phase: increased dyskenesias over previous which do not subside even with bolus presentation. Increased difficulty with strength of suction for straw drinking. - Pharyngeal phases: Consistent congested coughing across consistencies. Trials stopped. Nurses instructed to hold all PO at this time. Patient/caregiver will be independent with aspiration precautions, diet modifications, and safe swallowing strategies. Patient/caregiver will verbalize/demonstrate understanding of education r/t anatomy/physiology of normal vs disordered swallowing mechanism, overt s/sx to monitor for re: potential aspiration of food liquids, recommendations for improved oral care, relationship between respiratory function changes and deglutition, rationale for risk management strategies. Assessment Patient with increasing dyskenesias and reduced PO tolerance even with downgraded textures. Reduced verbal responses and reduced ability to follow instructions over initial evaluation. Given decline since initial visit adrianna mmend hold all PO and complete MBSS REMA. Plan Plan: MBSS Recommendations Diet: NPO Total Time Spent: 20 m Coding Diagnoses CPT Codes ORAL FUNCTION THERAPY - [id number] ([id number])
--- NOTE | 2022-11-11 14:45 | ST.MBS_ITS ---
Date of Service Date of service: 11/11/22 Time of Service: 14:45 Modified Barium Swallow Study Findings: Video fluoroscopic Swallowing Evaluation (VFSE) / Modified Barium Swallow Study (MBSS) Speech Language Pathology Report Patient referred for VFSE/MBSS from Catalina Brennanhey given reduced tolerance of PO intake. See prior IRRIGATION SPECIALIST notes for more information. IMPRESSIONS: Swallow safety is impaired; swallow efficiency is impaired. Severe [id number] oropharyngeal dysphagia. Characterized by consistent aspiration of liquids and high risk of aspiration/choking of solid/puree bolus secondary to reduced respiratory status and poor oral-pharyngeal control in setting of worsening dyskinesias. Patient observed re-aspirating large amounts of coughed up sputum on exam, and noting lingual and pharyngeal spasms vs dyskinesias in addition to oral/labial dyskinesias Patient appears to be at high risk for potential aspiration PNA and/or pulmonary compromise and moderate risk for malnutrition, high risk for dehydration. Non-oral nutrition is indicated. Swallow prognosis is guarded given: parkinsonism and longstanding dyskinesias. Positive prognostic factors: Negative prognostic factors: Severity, Cognitive status, Ineffectiveness of trialed compensatory strategies, and pending patient/caregiver training in risk management as outlined, including use of trialed compensatory strategies. Specialist referrals:? Neurology - inpatient RECOMMENDATIONS: Diet Texture Recommendation:? N/A - NPO - Nothing by mouth except [place] protocol: Patient may have up to 5 tsp sips of water at a time for comfort throughout the day and to maintain swallow stimulation, as long as oral care guidelines are strictly maintained. MEDICATIONS Via alternative means as able. If meds must be given by mouth: Crushed, if able, in puree. Perform oral care immediately before and after. RISK MANAGEMENT: Perform oral care every 3-4 hours for comfort and to enable sips of water. Use friction suction on all oral structures and apply hydrating gel. Diet texture modification is per patient's preference; please adjust diet textures at patient's discretion & collaboration with care team. Do not alter medications (e.g., cut)? without advice from your MD or pharmacist. Control risk factors for aspiration pneumonia via (a) thorough oral hygiene & (b) maintaining physical mobility as tolerated PLAN: Place patient on NPO status. Per hospitalist, to consider TPN over the weekend. Patient is full code. IRRIGATION SPECIALIST to re-evaluate Monday for PO tolerance, suspect if his movement systems and respiratory status improve his tolerance may also improve. Goals of care pending Neurology and Palliative recommendations. ----- OBJECTIVE Videofluoroscopic Swallow Evaluation (VFSE/MBSS) was conducted in the lateral[ and [id number]] projection by Speech-Language Pathologist, in collaboration with Radiologist, to evaluate oropharyngeal swallow function. Anatomic view under fluoroscopy: WFL PO Barium Contrast Trials Oral barium water-soluble contrast was administered as follows: IDDSI Level 0 Varibar thin liquid (40% w/v) IDDSI Level 2 Varibar nectar thick/mildly thick liquid (40% w/v) IDDSI Level 4 Varibar pudding/pureed/extremely thick (40% w/v) MBSImP Component Scores: COMPONENT Scale SCORE 1 Lip closure (0-4) 2 Resulted in escape from interlabial space or lateral juncture, but no extension beyond vermilion border 2 Hold Position (0-3) 2 Resulted in posterior escape of less than half of the bolus 3 Bolus Preparation (0-4) 4 Solid withheld due to patient safety concerns related to oral impairment 4 Bolus Transport (0-4) 3 Was with repetitive/disorganized motion of the tongu e 5 Oral Residue (0-4) 2 Was a collection on oral structures 6 Swallow Initiation (0-4) 3 Occurred when the bolus head was in the pyriform sinuses 7 Soft Palate Elevation (0-4) 2 Allowed escape to the nasopharynx 8 Laryngeal Elevation (0-3) 1 Was decreased with partial superior movement of thyroid cartilage/partial approximation of arytenoids to epiglottic petiole 9 Anterior Hyoid Motion (0-2) 1 Demonstrated partial anterior movement 10 Epiglottic Movement (0-2) 1 Resulted in partial inversion 11 Laryngeal Closure (0-2) 1 Was incomplete with narrow a column of air/contra st in laryngeal vestibule 12 Pharyngeal Stripping Wave (0-2) 1 Was present, but diminished 13 Pharyngeal Contraction (0-3) NA 14 PES Opening (0-3) 1 Demonstrated partial distension/partial duration, with partial obstruction of flow 15 Tongue Base Retraction (0-4) 1 Allowed a trace column of contrast or air between tongue base and pharyngeal wall A 16 Pharyngeal Residue (0-4) 2 Was a collection of residue within or on pharyngeal structures 17 Esophageal Clearance (0-4) NA Results: COMPONENT Scale SCORE 1 Oral Score (0-18) 13 2 Pharyngeal Score (0-29) 10 3 Esophageal Score (0-4) 0 Penetration-Aspiration Scale: COMPONENT Scale SCORE 1 Thin liquid (1-8) 8 Contrast entered the airway, passed below the vocal fold s, and no effort was made to eject. 2 Strawn thick (1-8) 8 Contrast entered the airway, passed below the vocal folds, and no effort was made to eject. 3 Honey thick (1-8) NA 4 Pudding thick (1-8) 1 Contrast did not enter the airway 5 Cookie (1-8) NA Observations not captured in quantitative data: Noting pharyngeal/lingual spasms, dyskenesias throughout exam. Although he did not aspirate any puree, immediately following trial he coughed up sputum from airway and immediately re-aspirated. Trialed Compensatory Strategies & Outcome: Maneuvers Successful (+) Unsuccessful (-) Postures Successful (+) Unsuccessful (-) 3 second Preparatory Set? ? - Chin Tuck Posture? ? Cough? ? Posterior Head tilt?? ? + to facilitate posterior transit of puree ? Reflexive? Cued? ? - (not initiated despite instruction) ? ? Throat Clear? ? Head Tilt to? Reflexive? Left? Cued? Right? ? Saliva swallow? ? - Head Turn/Rotate to? ? Supraglottic Swallow? Left? ? Super-supraglottic Swallow? Right? ? Bolus Modifications Successful (+) Unsuccessful (-) Delivery/Alternating Consistencies ? Follow with Liquid Wash ? Follow with Solid Bolus? Delivery/Via Straw? ? - Reduced Volume? ? - Reduced Rate of Intake? ? - Increased Viscosity? ? - Other:?? ? Thank you for allowing us to take part in this patient's care. Please feel free to contact the [facility] Speech Language Pathology Department with any questions/concerns. Coding CPT Codes MOTION FLUOROSCOPY/SWALLOW - [id number] ([id number])
[2022-11-11] MEDS: Barium Sulfate 40% W/V 240 ML BTL PO (14:50)
[2022-11-11] MEDS: Barium Sulfate 98% W/W 140 ML BTL PO (14:51)
--- NOTE | 2022-11-11 16:11 | PT.INTREAT ---
Date of service: 11/11/22 Time of Service: 11:10 PT Notes Visit Reasons: AcuteHypoxicRespiratoryFailure,Multifocalpneumonia Inpatient Physical Therapy Treatment Note [facility] Date: 11/11/22 PRECAUTIONS: Fall, standard, activity as tolerated, on supplemental O2 SUBJECTIVE: Patient supine in bed, agreeable to therapy. OBJECTIVE: PAIN: none reported THEREX: heel slides, hip ab/adduction, bridges. Long rests between exercises to allow patient's SaO2 to rebound from mid 80's to >90 ASSESSMENT: Patient appears to tolerate therapy well, resting comfortably in bed at end of session, call thornton within reach. PLAN: Continue strengthening per plan of care TREATMENT CODE/TIME: [id number] Ther Ex 15 minutes beginning at 1110
[2022-11-11 16:17] LABS: Mycoplasma Pneumoniae PCR Negative; Specimen source Sputum
--- NOTE | 2022-11-11 17:11 | PDOC.CMPRO ---
Date of service: 11/11/22 Time of Service: 17:11 Care Management Progress Note Progress Note Text Progress Note Text: S/O: Iggy was sitting up in bed CM met with him. He appeared tired and admitted that he was when CM asked. This morning Iggy had a choking episode while eating breakfast and his O2 sats dropped. He was seen by the [employer] and a MBSS was ordered and completed. As a result of that, Iggy has been made NPO. There is some consideration to initiating TPN over the weekend. He will be re-evaluated by [employer] on Monday. A: Iggy is a 67 year old male admitted to [facility] on 11/05/22 for acute hypoxic respiratory failure. P:? Anticipate, Iggy will return home with [facility] PT/OT services and resumption of community supports, once medically cleared. PT originally recommended home health PT however today indicated that SNF may be more appropriate. At this time Iggy is not willing to consider going to a shelter facility. When discharged, he will follow up with? community providers and discharge plan of care and transport with family. CM will continue to follow and assess for discharge concerns.?
--- NOTE | 2022-11-11 17:12 | W.NUTCONSULT ---
Date of service: 11/11/22 Time of Service: 17:12 Nutritional Consult ASSESSMENT: Mr. Urias has been made NPO by speech. Prior to NPO status, he had fair PO intake. He does have abdominal pain noted but CT is negative. His weight is 56 kg which has been stable over the past year. BMI is 19.9 kg/m2 which is WNL. Estimated energy needs are 1680 kcal/day (30 kcal/kg/day) Estimated protein needs: 56 to 67 g/day (1.0-1.2 g/kg/day) Estimated fluid needs: 1680 ml/day (30 ml/kg/day) NUTRITIONAL DIAGNOSIS: Inability to take oral foods and fluids related to NPO status secondary to unsafe swallowing. INTERVENTION: Nutrition consult requested for TPN. Recommendations to follow. Would however consider NG feeds as Mr. Urias had been taking PO and CT is negative. If TPN is initiated would recommend: 2.0 L of D10 aa 4.25% with 250 ml of 20% of lipids daily. This formula provides 1520 kcal and 85 grams of protein. MONITORING AND EVALUATION: 1. Will monitor weight and ability to advance PO 2. Will provide recommendations for tube feeds if desired. 3. Will evaluate nutrition care plan ongoing and adjust as needed. Time Spent in Nutritional Counseling and Treatment: 0
--- NOTE | 2022-11-11 17:30 | DI.RAD_ITS ---
Exam(s) XR PORTABLE CHEST AP POST LINE EXAM: XR PORTABLE CHEST AP POST LINE CLINICAL HISTORY: PICC LINE PLACEMENT TECHNIQUE: 2D digital imaging was performed of the chest. Two images were obtained. AP views were obtained. COMPARISON: CR XR CHEST 2V PA LATERAL from 11/11/2022 FINDINGS: MEDIASTINUM: Normal. HEART: Normal. PULMONARY VASCULATURE: Normal. LUNGS: Hazy bilateral pulmonary infiltrates are seen. There progressed since the prior examination s lightly. PLEURAL SPACE: No pleural effusion or pneumothorax. BONE:Within normal limits for the patient's age. OTHER FINDINGS:The tip of the right PICC line is seen in the right atrium. It should be retracted. IMPRESSION: 1. Tip of the right PICC line is in the right atrium and should be retracted 4-5 cm. 2. Worsening bilateral pulmonary infiltrates. DATA REPOSITORY: RADIATION DOSE DELIVERED:
--- NOTE | 2022-11-11 18:08 | DI.VRAD_ITS ---
PROCEDURE INFORMATION: Exam: XR Chest Exam date and time: 11/11/2022 5:39 PM Age: 67 years old Clinical indication: Device placement; Picc TECHNIQUE: Imaging protocol: Radiologic exam of the chest. Views: 1 view. COMPARISON: CR XR CHEST 2V PA LATERAL 11/11/2022 12:27 PM FINDINGS: Tubes, catheters and devices: Right upper extremity PICC is in place with the tip in the right atrium Lungs: Moderate diffuse pulmonary vascular prominence as well as mixed interstitial and alveolar infiltrates noted. Infiltrates are most pronounced in the lower lungs and moderately worsened from previous. Pleural spaces: Unremarkable. No pleural effusion. No pneumothorax. Heart/Mediastinum: Unremarkable. No cardiomegaly. Bones/joints: Unremarkable. IMPRESSION: 1. PICC tip in the right atrium. Recommend pulling back approximately 5 cm. 2. Moderate worsening of bilateral pulmonary infiltrates Dictated and Authenticated by: Faraz Espana MD. Ordering:REJI Arnold MD
--- NOTE | 2022-11-11 18:15 | DI.RAD_ITS ---
Exam(s) XR PORTABLE CHEST AP POST LINE EXAM: XR PORTABLE CHEST AP POST LINE CLINICAL HISTORY: PICC LINE PLACEMENT TECHNIQUE: 2D digital imaging was performed of the chest. One image was obtained. An AP view was ob tained. COMPARISON: CR,XR XR PORTABLE CHEST AP POST LINE from 11/11/2022 FINDINGS: MEDIASTINUM: Normal. HEART: Normal. PULMONARY VASCULATURE: Normal. LUNGS: The left costophrenic angle is not included on this examination. There are persistent predomi nantly bilateral infiltrates which has shown slight improvement. PLEURAL SPACE: No pleural effusion or pneumothorax. BONE:Within normal limits for the patient's age. OTHER FINDINGS:The tip of the right PICC line is in good position near the junction of the superior v rupa cava and the right atrium. IMPRESSION: Right PICC line is in good position near the atrial caval junction. DATA REPOSITORY: RADIATION DOSE DELIVERED:
--- NOTE | 2022-11-11 18:46 | PGE_ITS ---
Date of Service Date of service: 11/11/22 Time of Service: 12:00 Assessment and Plan Assessment and plan (1) Sepsis: Status: Acute Assessment and plan: Improving, Continue zosyn. Continue doxycycline. (2) Acute respiratory failure with hypoxia and hypercarbia: Status: Acute Assessment and plan: Due to bilateral pneumonia present on admission in addition to a possible underlying COPD exacerbation. Continue steroids. Encourage pulmonary toilet. (3) Community acquired pneumonia: Status: Acute Assessment and plan: As above (4) Asthma-COPD overlap syndrome: Status: Acute Assessment and plan: As above. Continue steroids (5) Acute lactic acidosis: Status: Resolved (6) FREDDY (acute kidney injury): Status: Resolved Assessment and plan: . (7) Abdominal pain: Assessment and plan: CT abdomen negative. Likely chronic pain, No further workup is planned. Pain has resolved (8) Elevated CPK: Status: Resolved (9) Parkinsonism: Status: Chronic Assessment and plan: Followed by Dr Valladares. Neuro consult pending Not normally on medications. PT/OT/speech consulted. (10) Tardive dyskinesia: Status: Chronic Assessment and plan: Continue tetrabenazine. Seen by speech therapy: diet changed to NPO with TPN order PICC placed ; huge potential for aspiration. Consult Dr Henry placed consult for surgery for PEG - patient, parents and brother in agreement (11) Hx pulmonary embolism: Status: Chronic Assessment and plan: Apixaban discontinued and Enoxaparin started (12) Hyperglycemia: Status: Acute Assessment and plan: A1C 5.4. Continue SSI. (13) DVT prophylaxis: Status: Resolved Assessment and plan: Apixaban discontinued and Enoxaparin started s/t aspiration risk (14) Discharge planning issues: Status: Resolved Assessment and plan: Full code. Seen by palliative care. PT/OT, speech following Continues to require hospitalization. Discussed with Dr Hollis Subjective Subjective Patient reports: afebrile; denies tolerating liquids well, diarrhea or vomiting Interval history since last seen: Not taking liquids well today, choking and spitting. Reseen by speech therapy with swallow study completed. Exam Narrative Exam Narrative: . Const General: cooperative and no acute distress Orientation: alert, awake and oriented x3 HENMT Head: normal to inspection Eyes General: appearance normal, both eyes and all related structures Neck Neck: normal visual inspection Lymphatic: no lymphadenopathy noted Chest Chest: normal inspection of the chest Resp Effort & Inspection: normal respiratory effort and able to speak in complete se ntences Auscultation: clear to auscultation bilaterally (diminished in the bases posteriorly) Cardio Rate: regular rate Rhythm: regular rhythm GI Inspection: normal to inspection Palpation: soft, no masses and nontender Auscultation: normal bowel sounds Skin General skin exam: no rashes or lesions noted Neuro General: patient alert and patient awake Motor: muscle tone normal throughout Sensory Exam: no sensory deficits noted Extrem General: normal to inspection, full ROM and capillary refill normal Psych Appearance: grossly normal Mental Status: mental status grossly normal Speech and Movement: speech and movement normal Affect: normal affect Thought Process: normal Objective Last Vital Signs Temp 36.3 C L 11/11/22 15:25 Pulse 71 11/11/22 16:50 Resp 20 11/11/22 16:43 BP 107/68 11/11/22 15:25 Pulse Ox 97 11/11/22 16:50 Laboratory Results - last 24 hr 11/08/22 11/11/22 11/11/22 08:05 06:00 06:00 WBC 7.01 RBC 3.96 L Hgb 11.3 L Hct 35.4 L MCV 89 MCH 28.5 MCHC 31.9 L RDW 11.9 Plt Count 310 MPV 9.9 Immature Gran % 4.6 Neutrophils % 63.0 Lymphocytes % 21.0 Monocytes % 9.7 Eosinophils % 1.3 Basophils % 0.4 Nucleated RBC % 0.0 Absolute Neutrophils 4.42 Absolute Lymphocytes 1.47 Absolute Monocytes 0.68 Absolute Eosinophils 0.09 Absolute Basophils 0.03 Sodium 141 Potassium 3.6 Chloride 105 Carbon Dioxide 29.8 Anion Gap 6.2 BUN 24 H Creatinine 1.0 Est GFR (CKD-EPI 2020) 81.98 Glucose 80 Calcium 8.4 L Magnesium 2.6 H M. pneumoniae Source Sputum M. pneumoniae (PCR) Negative Time Spent with Patient Time Spent with Patient: 25-34 minutes Time was spent: preparing to see the patient(eg.review tests), ordering medications,tests, procedures, referring, communicating with other health district manager primary care sales, indepentently interpreting results, counseling the patient and care coordination
--- NOTE | 2022-11-11 18:53 | DI.VRAD_ITS ---
PROCEDURE INFORMATION: Exam: XR Chest Exam date and time: 11/11/2022 6:41 PM Age: 67 years old Clinical indication: Device placement; Picc; Additional info: Picc line placement TECHNIQUE: Imaging protocol: Radiologic exam of the chest. Views: 1 view. COMPARISON: CR XR PORTABLE CHEST AP POST LINE 11/11/2022 5:39 PM FINDINGS: Tubes, catheters and devices: Right upper extremity PICC has been repositioned with the tip now in good position in the superior vena cava. Lungs: Bilateral lower lobe predominant pulmonary infiltrate/atelectasis appear slightly improved, with improved aeration of both lungs. Pleural spaces: Unremarkable. No pleural effusion. No pneumothorax. Heart/Mediastinum: Unremarkable. No cardiomegaly. Bones/joints: Unremarkable. IMPRESSION: Adequate position of right upper extremity PICC Dictated and Authenticated by: Faraz Espana MD. Ordering:REJI Arnold MD
[2022-11-11] MEDS: Enoxaparin 60 MG/0.6 ML SYR SC (20:38)
[2022-11-11] MEDS: Pantoprazole 40 MG VIAL IVP (20:38)
[2022-11-11] MEDS: LORazepam 2 MG/ML VIAL 1 MG IVP (20:38)
[2022-11-11] MEDS: Normal Saline Flush 10 ML SYR IVP (22:56)
[2022-11-11] MEDS: DEXTROSE 5%-0.9% SALINE 1,000 ML 125 ML IV (22:56)
[2022-11-12] VITALS (13 sets, daily range): BP systolic 96–117; BP diastolic 59–73; PULSE 63–73; RESP 4–18; TEMP 36.1–37.3; O2SAT 90–96
[2022-11-12] MEDS: LORazepam 2 MG/ML VIAL 1 MG IVP ×4 (01:23→19:25)
[2022-11-12] MEDS: Normal Saline Flush 10 ML SYR IVP ×7 (01:23→21:42)
[2022-11-12] MEDS: PIPERACILLIN/TAZO 3.375 GM in Normal Saline 50 ML IVPB ×4 (03:58→21:42)
[2022-11-12 06:12] LABS: Abs Immature Grans 0.25 10^3/uL (0.0-0.06); Absolute Basophil Count 0.01 10^3/uL (0.0-0.2); Absolute Eosinophil Count 0.08 10^3/uL (0.0-0.7); Absolute Lymphocyte Count 1.41 10^3/uL (1.2-3.4); Absolute Monocyte Count 0.76 10^3/uL (0.1-0.8); Absolute Neutrophil Count 5.31 10^3/uL (1.2-6.7); Basophils % 0.1; HGB 11.5 g/dL (13.5-17.5); Immature Grans % 3.2; MCH 28.8 pg (27.0-33.0); MCHC 31.9 % (32.0-36.0); MCV 90 fL (80-95); MPV 9.9 fL (8.0-11.0); Monocytes % 9.7; Platelet Count 327 10^3/uL (130-400); RDW 12.1 % (11.8-14.1); RDW-SD 39.4 fL; WBC 7.82 10^3/uL (4.4-10.8)
[2022-11-12] MEDS: DOXYCYCLINE 100 MG in Normal Saline 100 ML IVPB ×2 (06:21→17:53)
[2022-11-12 06:26] LABS: Anion Gap 6.5 mmol/L (3-11); BUN 22 mg/dL (7-18); CO2 29.5 mmol/L (21.0-32.0); Calcium 8.1 mg/dL (8.5-10.1); Chloride 107 mmol/L (98-107); Estimated GFR 81.98 (mL/min/1.73m2); Glucose 60 mg/dL (74-106); Magnesium 2.4 mg/dL (1.8-2.4); Potassium 3.3 mmol/L (3.5-5.1); Sodium 143 mmol/L (136-145)
[2022-11-12] MEDS: Enoxaparin 60 MG/0.6 ML SYR SC ×2 (08:00→19:25)
[2022-11-12] MEDS: Dextrose 50%-Water 25 GM/50 ML SYR IVP (08:01)
[2022-11-12] MEDS: Tiotropium Bromide-Respimat 10 PUFF INH 2 PUFF IH (08:55)
[2022-11-12] MEDS: Budesonide/Formoterol 160/4.5 6 GM 60 PUFF INH IH ×2 (08:55→20:12)
[2022-11-12] MEDS: Albuterol/Ipratropium 3 ML UPD VIAL UPD ×4 (08:55→20:12)
[2022-11-12] MEDS: DEXTROSE 5%-0.9% SALINE 1,000 ML 125 ML IV (11:55)
--- NOTE | 2022-11-12 12:16 | PT.INTREAT ---
PT Notes Visit Reasons: AcuteHypoxicRespiratoryFailure,Multifocalpneumonia Inpatient Physical Therapy Treatment Note [facility] Date: 11/12/22 SUBJECTIVE: Arturo is willing to work with PT. OBJECTIVE: [] VITALS: O2 sat prior to session was 72%. Nurse came in, sat him up straighter in bed and increased O2 from 1.5L to 2L. He performed his breathing exercises as well as cough. This brought his O2 sat to 93% THEREX: performed a series of bed level ex. AP, SAQ, SLR heel slides and hip ab/add x 10 ex. Bicep curls, punchouts and GH flex x 10. O2 sats remained btwn 92% and 94% ASSESSMENT: no c/o SOB, did well with exercises. PLAN: will continue to progress his strengthening and functional mobility as per PT POC. TREATMENT CODE/TIME: 15 min ([id number])
[2022-11-12] MEDS: DEXTROSE 5%-0.9% SALINE 1,000 ML 50 ML IV (15:36)
[2022-11-12] MEDS: Pantoprazole 40 MG VIAL IVP (19:25)
[2022-11-13] VITALS (8 sets, daily range): BP systolic 99–136; BP diastolic 62–80; PULSE 68–75; RESP 1–16; TEMP 36.3–37.5; O2SAT 90–96
[2022-11-13] MEDS: LORazepam 2 MG/ML VIAL 1 MG IVP ×4 (01:51→19:56)
[2022-11-13] MEDS: Normal Saline Flush 10 ML SYR IVP ×7 (01:51→19:51)
[2022-11-13] MEDS: PIPERACILLIN/TAZO 3.375 GM in Normal Saline 50 ML IVPB ×2 (03:55→10:21)
[2022-11-13] MEDS: DOXYCYCLINE 100 MG in Normal Saline 100 ML IVPB (05:54)
[2022-11-13 06:33] LABS: MCH 28.8 pg (27.0-33.0); MCHC 32.4 % (32.0-36.0); MCV 89 fL (80-95); MPV 9.8 fL (8.0-11.0); Platelet Count 301 10^3/uL (130-400); RBC 3.82 10^6/uL (4.36-5.78); RDW-SD 38.5 fL; WBC 7.58 10^3/uL (4.4-10.8)
[2022-11-13 06:49] LABS: Anion Gap 5.5 mmol/L (3-11); BUN 25 mg/dL (7-18); CO2 28.5 mmol/L (21.0-32.0); Calcium 8.1 mg/dL (8.5-10.1); Chloride 104 mmol/L (98-107); Estimated GFR 81.98 (mL/min/1.73m2); Glucose 104 mg/dL (74-106); Magnesium 2.5 mg/dL (1.8-2.4); Potassium 4.1 mmol/L (3.5-5.1); Sodium 138 mmol/L (136-145)
[2022-11-13 06:53] LABS: PHOSPHORUS 3.4 mg/dL (2.6-4.7)
[2022-11-13] MEDS: Budesonide/Formoterol 160/4.5 6 GM 60 PUFF INH IH ×2 (07:58→19:27)
[2022-11-13] MEDS: Tiotropium Bromide-Respimat 10 PUFF INH 2 PUFF IH (07:59)
[2022-11-13] MEDS: Albuterol/Ipratropium 3 ML UPD VIAL UPD (07:59)
[2022-11-13] MEDS: Enoxaparin 60 MG/0.6 ML SYR SC ×2 (09:14→19:55)
--- NOTE | 2022-11-13 11:45 | PT.INTREAT ---
PT Notes Visit Reasons: AcuteHypoxicRespiratoryFailure,Multifocalpneumonia Inpatient Physical Therapy Treatment Note [facility] Date: 11/13/22 SUBJECTIVE: Iggy is willing to work with PT. OBJECTIVE: [] VITALS: O2 sat prior to session was 94%, ended at 96% on RA THEREX: performed a series of bed level ex. AP, SAQ, SLR heel slides and hip ab/add x 10 ex Bridging 2x5. GH flex and abd x 10. ASSESSMENT: no c/o SOB, did well with exercises. PLAN: will continue to progress his strengthening and functional mobility as per PT POC. TREATMENT CODE/TIME: 15 min ([id number])
--- NOTE | 2022-11-13 18:41 | W.PM.PROGNOT ---
Date of Service Date of service: 11/13/22 Time of Service: 18:41 Assessment and Plan Assessment and plan (1) Sepsis: Status: Resolved Assessment and plan: Improving, Continue zosyn. Continue doxycycline. (2) Acute respiratory failure with hypoxia and hypercarbia: Status: Acute Assessment and plan: Due to bilateral pneumonia present on admission in addition to a possible underlying COPD exacerbation. Continue steroids. Encourage pulmonary toilet. (3) Community acquired pneumonia: Status: Resolved Assessment and plan: As above (4) Asthma-COPD overlap syndrome: Status: Resolved Assessment and plan: As above. Continue steroids (5) Acute lactic acidosis: Status: Resolved (6) FREDDY (acute kidney injury): Status: Resolved Assessment and plan: . (7) Abdominal pain: Assessment and plan: CT abdomen negative. Likely chronic pain, No further workup is planned. Pain has resolved (8) Elevated CPK: Status: Resolved (9) Parkinsonism: Status: Chronic Assessment and plan: Followed by Dr Valladares. Neuro consult pending Not normally on medications. PT/OT/speech consulted. (10) Tardive dyskinesia: Status: Chronic Assessment and plan: Continue tetrabenazine. Seen by speech therapy: diet changed to NPO with TPN order PICC placed ; huge potential for aspiration. Consult Dr Henry placed consult for surgery for PEG - patient, parents and brother in agreement - pending (11) Hx pulmonary embolism: Status: Chronic Assessment and plan: Apixaban discontinued and Enoxaparin started (12) Hyperglycemia: Status: Resolved Assessment and plan: A1C 5.4. Continue SSI. (13) DVT prophylaxis: Status: Acute Assessment and plan: Apixaban discontinued and Enoxaparin started s/t aspiration risk (14) Discharge planning issues: Status: Acute Assessment and plan: Full code. Seen by palliative care. PT/OT, speech following Continues to require hospitalization. Discussed with Dr Hollis Subjective Subjective Patient reports: no new complaints Exam Narrative Exam Narrative: . Const General: cooperative and no acute distress Orientation: alert, awake and oriented x3 HENMT Head: normal to inspection Eyes General: appearance normal, both eyes and all related structures Neck Neck: normal visual inspection Lymphatic: no lymphadenopathy noted Chest Chest: normal inspection of the chest Resp Effort & Inspection: normal respiratory effort and able to speak in complete sentences Auscultation: clear to auscultation bilaterally (diminished in the bases posteriorly) Cardio Rate: regular rate Rhythm: regular rhythm GI Inspection: normal to inspection Palpation: soft, no masses and nontender Auscultation: normal bowel sounds Skin General skin exam: no rashes or lesions noted Neuro General: patient alert and patient awake Motor: muscle tone normal throughout Sensory Exam: no sensory deficits noted Extrem General: normal to inspection, full ROM and capillary refill normal Psych Appearance: grossly normal Mental Status: mental status grossly normal Speech and Movement: speech and movement normal Affect: normal affect Thought Process: normal Objective Last Vital Signs Temp 36.9 C 11/13/22 16:03 Pulse 70 11/13/22 16:03 Resp 16 11/13/22 16:03 BP 103/64 11/13/22 16:03 Pulse Ox 92 11/13/22 16:03 Laboratory Results - last 24 hr 11/13/22 11/13/22 11/13/22 05:45 05:45 05:45 WBC 7.58 RBC 3.82 L Hgb 11.0 L Hct 34.0 L MCV 89 MCH 28.8 MCHC 32.4 RDW 12.0 Plt Count 301 MPV 9.8 Sodium 138 Potassium 4.1 Chloride 104 Carbon Dioxide 28.5 Anion Gap 5.5 BUN 25 H Creatinine 1.0 Est GFR (CKD-EPI 2020) 81.98 Glucose 104 Calcium 8.1 L Phosphorus Magnesium 2.5 H 11/13/22 05:45 WBC RBC Hgb Hct MCV MCH MCHC RDW Plt Count MPV Sodium Potassium Chloride Carbon Dioxide Anion Gap BUN Creatinine Est GFR (CKD-EPI 2020) Glucose Calcium Phosphorus 3.4 Magnesium Time Spent with Patient Time Spent with Patient: 35-49 minutes Time was spent: preparing to see the patient(eg.review tests), ordering medications,tests, procedures, referring, communicating with other health acute care nurse practitioner, indepentently interpreting results and care coordination
[2022-11-13] MEDS: Pantoprazole 40 MG VIAL IVP (19:52)
[2022-11-14] VITALS (39 sets, daily range): BP systolic 88–135; BP diastolic 61–80; PULSE 68–110; RESP 14–34; TEMP 36.8–37.6; O2SAT 79–100
--- NOTE | 2022-11-14 | DI.RAD_ITS ---
Exam(s) XR PORTABLE CHEST AP EXAM: XR PORTABLE CHEST AP CLINICAL HISTORY: F//u PNA. TECHNIQUE: 2D digital imaging was performed. COMPARISON: CR,XR XR PORTABLE CHEST AP POST LINE from 11/11/2022 FINDINGS: Single AP portable view. Heart size is upper normal. The mediastinum is not widened. Distal tip of the right PICC line remains in good position in the SVC. Right lung appears clear. There is persistent infiltrate in the left lung. This is in the lower anibal f of the left lung field. No obvious pleural effusions. No pulmonary edema. IMPRESSION: Left lung infiltrate. Recommend nonportable PA and lateral views when clinically possible, or altern atively CT scan. Right PICC line remains in good position in the SVC. DATA REPOSITORY: RADIATION DOSE DELIVERED:
[2022-11-14] MEDS: LORazepam 2 MG/ML VIAL 1 MG IVP ×5 (01:57→22:14)
[2022-11-14] MEDS: Normal Saline Flush 10 ML SYR IVP ×5 (01:58→21:36)
[2022-11-14 06:22] LABS: Abs Immature Grans 0.35 10^3/uL (0.0-0.06); Absolute Basophil Count 0.04 10^3/uL (0.0-0.2); Absolute Eosinophil Count 0.25 10^3/uL (0.0-0.7); Absolute Lymphocyte Count 1.36 10^3/uL (1.2-3.4); Absolute Monocyte Count 0.77 10^3/uL (0.1-0.8); Absolute Neutrophil Count 7.78 10^3/uL (1.2-6.7); Basophils % 0.4; Eosinophils % 2.4; HGB 12.4 g/dL (13.5-17.5); Immature Grans % 3.3; Lymphocytes % 12.9; MCH 28.6 pg (27.0-33.0); MCHC 32.6 % (32.0-36.0); MCV 88 fL (80-95); MPV 9.9 fL (8.0-11.0); Monocytes % 7.3; Neutrophils % 73.7; Platelet Count 356 10^3/uL (130-400); RBC 4.33 10^6/uL (4.36-5.78); RDW 11.9 % (11.8-14.1); RDW-SD 38.5 fL; WBC 10.55 10^3/uL (4.4-10.8)
[2022-11-14 06:38] LABS: Prothrombin Time 10.4 sec (9.3-11.0)
[2022-11-14 06:50] LABS: Magnesium 2.6 mg/dL (1.8-2.4)
[2022-11-14 06:54] LABS: ALT 39 U/L (16-63); AST 25 U/L (15-37); Albumin 2.1 g/dL (3.4-5.0); Alkaline Phosphatase 131 U/L (46-116); Anion Gap 4.9 mmol/L (3-11); BUN 29 mg/dL (7-18); Bilirubin, Total 0.5 mg/dL (0.2-1.0); CO2 29.1 mmol/L (21.0-32.0); CREATININE 0.9 mg/dL (0.70-1.30); Calcium 8.5 mg/dL (8.5-10.1); Chloride 103 mmol/L (98-107); Estimated GFR 93.03 (mL/min/1.73m2); Glucose 71 mg/dL (74-106); Potassium 4.1 mmol/L (3.5-5.1); Sodium 137 mmol/L (136-145); Total Protein 6.4 g/dL (6.4-8.2)
[2022-11-14] MEDS: Tiotropium Bromide-Respimat 10 PUFF INH 2 PUFF IH (07:53)
[2022-11-14] MEDS: Budesonide/Formoterol 160/4.5 6 GM 60 PUFF INH IH ×2 (07:53→19:07)
--- NOTE | 2022-11-14 08:26 | RESPIRATORY ---
RT Assessment Start: 11/06/22 11:24 Freq: .q shift and prn Status: Active Protocol: Document 11/14/22 08:17 RT.[email or web address] (Rec: 11/14/22 08:25 [email or web address] [id number]) RT Assessment OXYGEN HISTORY: Current Respiratory Symptoms Current Respiratory Symptoms Sputum production Respiratory Breath Sounds Breath Sounds Faint wheezing or rhonci, decreased sounds throughout Response No change Pulse Rate <100 Respiratory Rate 18-25 Shortness of Breath On exertion Respiratory Therapy Score Total 4 Assessment and Plan RT Treatment Protocol Lung Expansion Therapy Protocol,Bronchial Hygiene Therapy Protocol Note 72 hour Reassessment completed this morning. Patient continues to require 1-2L of O2 at rest. Bilateral BS coarse/diminished throughout. Continue to assist patient with acapella and encourage deep breathing/coughing. Pt has very loose, productive cough but isn't clearing secretions without prompting from RT to cough. Pt is having trouble following directions.
--- NOTE | 2022-11-14 08:30 | SPP_ITS ---
Date of service: 11/14/22 Time of Service: 08:31 Subjective Iggy was contacted at bedside for FOREST FIRE EQUIPMENT OPERATOR session this am. Upon entry to his room, he tracks clinician visually, says virgil, holds hands out in greeting, but as session continues he becomes less and less responsive, not tracking clinician as consistently. FOREST FIRE EQUIPMENT OPERATOR modifying HOB bed position to achieve a largely upright position, and performing oral care via suction/swab kit. Patient does not follow instructions during oral care such as opening mouth, protruding tongue, clamps mouth over swab tightly for duration of oral care with oral fixation making thorough oral cleaning difficult to achieve. Objective/Assessment/Plan Objective Treatment Techniques & Outcomes: Patient will tolerate safest/least restrictive diet without s/sx aspiration. ON HOLD Patient will tolerate therapeutic PO trials of ice chips or water with consistent swallow initiation and without s/sx aspiration. IN PROGRESS (NPO) Food items given: ?? Ice: 2 small ice chips IDDSI 0: 5 sips via 1/2 tsp PO medications in Honey Thick Liquid X2 Oral phase: Leakage from mouth Difficulty with bolus manipulation Difficulty with a-p transport Pharyngeal phase: Delayed & inconsistent swallow initiation Reduced hyolaryngeal elevation/excursion Wet breathing sounds throughout (difficult to differentiate from baseline) Patient/caregiver will be independent with aspiration precautions, diet modifications, and safe swallowing strategies. ON HOLD (NPO) Patient/caregiver will verbalize/demonstrate understanding of education r/t anatomy/physiology of normal vs disordered swallowing mechanism, overt s/sx to monitor for re: potential aspiration of food liquids, recommendations for improved oral care, relationship between respiratory function changes and deglutition, rationale for risk management strategies. IN PROGRESS: Provided review or rationale/recommendations with RN who verbalized understanding. Assessment Iggy was contacted this morning for administration of PO trials and continued re-assessment given NPO status. He demonstrates continued persistent oral dyskinesias which, which when combined with his delayed and inconsistent swallow initiation continue to present high risk of aspiration especially with liquids. His breathing is wet and congested at baseline and throughout PO trials. He remains on supplemental oxygen. Per nursing he is mildly febrile this AM. He continues with reduced verbal responsiveness. Continue NPO status at this time pending further collaboration with Neurology, Palliative, Hospitalist and pending patient/family goals of care. Plan Plan: FOREST FIRE EQUIPMENT OPERATOR will continue to follow while on unit. Recommendations Recommendations: Diet Texture Recommendation:? N/A - NPO - Nothing by mouth except [place] protocol: Patient may have up to 5 tsp sips of water at a time for comfort throughout the day and to maintain swallow stimulation, as long as oral care guidelines are strictly maintained. MEDICATIONS Via alternative means as able. If meds must be given by mouth: Crushed, if able, in 3 - Honey Thick Liquids. Give verbal cues and watch thyroid cartilege to ensure swallow initiation. Provide tsp honey thick liquid wash/chaser to ensure clearance of medication. Perform oral care immediately before and after. RISK MANAGEMENT: Perform oral care every 3-4 hours for comfort and to enable sips of water. Use friction suction on all oral structures and apply hydrating gel. ? Diet texture modification is per patient's preference; please adjust diet textures at patient's discretion & collaboration with care team. Do not alter medications (e.g., cut)? without advice from your MD or pharmacist. Control risk factors for aspiration pneumonia via (a) thorough oral hygiene & (b) maintaining physical mobility as tolerated Total Time Spent: 20 m Coding Diagnoses CPT Codes ORAL FUNCTION THERAPY - 08820 ([id number])
[2022-11-14] MEDS: FLUoxetine 20 MG CAP PO (09:04)
[2022-11-14] MEDS: Enoxaparin 60 MG/0.6 ML SYR SC ×2 (09:04→21:35)
--- NOTE | 2022-11-14 09:33 | PT.INPN ---
PT Notes Visit Reasons: AcuteHypoxicRespiratoryFailure,Multifocalpneumonia Physical Therapy Inpatient Progress Notes Date: 11/14/2022 Dates of Service: 11/07/2022 through 11/14/2022 Referring Doctor: Natali Hopper MD PT Orders: PT CONSULT: Limited ability Precautions: Fall. Standard. Activity as tolerated. Patient Profile/Admitting Diagnosis:? Iggy is a 67-year-old male who presented to the ED on 11/05/2022 due to shortness of breath and generalized weakness.? He is admitted to the ICU for management of sepsis, acute respiratory failure with hypoxia and hypercarbia, community-acquired pneumonia, and a small, acute lactic acidosis and for co-morbidities listed below. PMHX: All Active Problems?(Updated 11/05/22 @ 18:36 by Natali Hopper MD) Hyperglycemia (Acute) Sepsis (Acute) Hx pulmonary embolism (Chronic) Elevated CPK (Acute) Acute lactic acidosis (Acute) Acute respiratory failure with hypoxia and hypercarbia (Acute) Community acquired pneumonia (Acute) Leukocytosis (Acute) Hypoalbuminemia (Acute) FREDDY (acute kidney injury) (Acute) Parkinsonism (Chronic) Urinary incontinence (Acute) Pseudobulbar affect (Acute) Unintentional weight loss (Acute) Chronic anticoagulation (Chronic) Tardive dyskinesia (Chronic) Cervicalgia (Acute) Anxiety with somatic features (Chronic) chest wall pain, globus sensation, abdominal pain, shortness of breath Asthma-COPD overlap syndrome (Acute) GERD (gastroesophageal reflux disease) (Chronic) Depressive disorder (Chronic) Confabulation (Chronic) Memory loss (Acute) Non compliance w medication regimen (Chronic) Chest wall pain, chronic (Acute) Pharyngoesophageal dysphagia (Acute) Globus sensation (Acute) Vitamin D deficiency (Acute) Hypocalcemia (Chronic) Pulmonary embolism (Chronic 12/20/18) CT Report, Started on EliquisConstipation (Chronic) Cognitive impairment (Chronic) [facility] progress note: 11/13/18, mild to moderate Chronic alcoholic pancreatitis (Acute) Umbilical hernia (Acute) Tubular adenoma of colon (Acute 05/04/09) 01/19/15 NO adenoma on repeat colonoscopy Malignant neoplasm of unspecified part of right bronchus or lung (Acute 10/04/17) Dyspepsia (Acute 04/26/16) Chronic obstructive pulmonary disease (Chronic 03/22/17) moderately severe 03/07/17:? FEV1/FVC 1.82/3.48, 52% (+) Bronchodilator response compared to PFT in 2007, 800cc decline in FVC & 460cc decline in FEV1 Anxiety (Chronic 09/17/14) Alcohol abuse, in remission (Acute 04/26/16) Medical History? Abdominal pain Adjustment disorder with anxiety (06/29/17) Alcohol abuse (11/27/12) Anxiety Dyspepsia Epigastric pain History of sore throat Malignant neoplasm of right lung Melena Palliative care patient Pancreatitis, acute Rash of face Thrush Tubular adenoma of colon Weight loss Surgical History? Colonoscopy (01/19/15) Also had a decompress colonoscopy with Dr Haresh Vásquez at [facility] on 06/09/18 for significant colon distention seen on CT scan, no prep? done,therapeutic, diagnositc, still due for repeat on 01/19/25 History of lung biopsy History of surgery on upper extremity left Status post cataract extraction and insertion of intraocular lens of left eye (11/05/18) Social History/Home Situation: Lives with parents who are his primary caregivers.? Home with services 5 times a week.? States that he did not use an assistive device prior to admission. Equipment Owned/DME: FWW,? [facility] Subjective: Agreeable to PT consult.? Denies headache, chest pain, and lightheadedness throughout session.? Did report shortness of breath. Objective: General Observation: Seated on bedside chair.? Telemetry monitoring in place.? Noel catheter in place.? Mentation at 4 L/min. Mental Status: Alert and oriented as to personand place. Able to pay attention, focus, and respond appropriately. Pain: Denies Vital Signs: Oxygen saturation low of 88% and high of 92% on 4 L of O2 via NC. ROM: Right Upper Extremity: ? Shoulder Flexion WFL. Shoulder abduction WFL. Elbow flexion WFL. Wrist flexion WFL. Functional opening and closing of hand WFL. Left Upper Extremity:? Shoulder Flexion WFL. Shoulder abduction WFL. Elbow flexion WFL. Wrist flexion WFL. Functional opening and closing of hand WFL. Right Lower Extremity: Hip flexion WFL. Hip abduction WFL. Knee flexion WFL. Ankle dorsiflexion WFL. Ankle plantarflexion WFL. Left Lower Extremity: Hip flexion WFL. Hip abduction WFL. Knee flexion WFL. Ankle dorsiflexion WFL. Ankle plantarflexion WFL. Strength: Right Upper Extremity: Shoulder flexors 4-/5. Shoulder abductors 4-/5. Elbow flexors 4-/5. Elbow extensors 4-/5. Chemistry Faculty Member strong. Left Upper Extremity: Shoulder flexors 4-/5. Shoulder abductors 4-/5. Elbow flexors 4-/5. Elbow extensors 4-/5. Chemistry Faculty Member strong. Right Lower Extremity: Hip flexors 4-/5. Hip abductors 4-/5. Knee flexors 4-/5. Knee extensors 4-/5. Ankle dorsiflexors 4-/5. Ankle plantarflexors 4-/5. Left Lower Extremity: Hip flexors 4-/5. Hip abductors 4-/5. Knee flexors 4-/5. Knee extensors 4-/5. Ankle dorsiflexors 4-/5. Ankle plantarflexors 4-/5. Bed Mobility/Transfers: Sit to stand with minimal assist with FWW Stand to sit with minimal assist with FWW Bed to reclining chair minimal assist with FWW Reclining chair to bed minimal assist with FWW Gait: Instructed patient with level surface ambulation of 300 feet requiring contact guard assist.? Heavy tactile cueing provided, PT needed to provide maximal guiding of FWW for patient to maiatain good distance and to ensure smooth directional change. Minimally short of breath but resolved with rest. Balance: Static Sitting: Fair Dynamic Sitting: Fair Static Standing: Fair Dynamic Standing: Fair Special Tests: Mobility Limitations Standardized Measure [facility] 6 clicks Basic Mobility Inpatient Short Form: Raw Score: 18? CMS Score: 47% deficit? ? ? Informed Consent/Education: Patient was instructed in purpose of PT consult and plan of care. Agreeable to proceed with established PT POC to achieve personal goals. Assessment: Unable to initiate, continue, and stop movement due to parkinsonism. Requires heavy verbal and tactile cueing to to participate in any movement, continuous tactile guidance needed at all times, otherwise patient will not execute. Patient presents with clinical signs and symptoms consistent with current/admitting diagnoses that have resulted to mobility limitations, gait instability, generalized weakness, and overall ADL decline as demonstrated by the following impairment level findings: 1.? Decreased strength to B UE/LE major muscle groups 2.? Impaired sitting/standing balance 3.? Impaired activity tolerance 4.? Shortness of breath Impairments are contributing to the following functional limitations: 1.? Decline in bed mobility skills 2.? Decline in transfer skills 3.? Difficulty with ambulation without assistive device and physical assistance 4.? Increased completion time for mobility ADL performance 5.? Increased risk for falls 6.? Difficulty with managing steps alone safely Patient is assessed as a [id number] moderate complexity based on the following: History: 67-year-old female with past medical history as indicated above Examination: Demonstrable impairment in strength, balance, and mobility level with underlying impairments and functional limitations as exhibited above as well as deficit score of 42% utilizing the [facility] Mobility Inpatient Short Form Presentation: Evolving Decision Makin? moderate complexity Goals: Goals X1 week 1. Supine-Sit independent NOT MET, CONTINUE 2. Sit-Supine independent NOT MET, CONTINUE 3. Sit-Stand independent NOT MET, CONTINUE 4. Stand-Sit independent with FWW NOT MET, CONTINUE 5. Bed-Chair independent with FWW NOT MET, CONTINUE 6. Chair-Bed independent with FWW NOT MET, CONTINUE 7. Independent gait on level surface with use of FWW for at least 300 feet without report of pain nor dyspnea NOT MET, CONTINUE 8. Independent stair negotiation while holding onto B rails for at least 5 steps without report of pain nor dyspnea NOT MET, CONTINUE 9. Independent with home exercise program NOT MET, CONTINUE 10. Good static and dynamic standing balance/tolerance NOT MET, CONTINUE Plan of Care/Treatment Plan: 1-2x/day, 7 days/week x 1 week. Plan of care has been reviewed with the FOOD AND BEVERAGE DIRECTOR providing the service under Physical Therapy direction. Initiate Physical Therapy intervention for pain management as needed, strengthening, bed mobility, transfers, gait, stairs, balance training, and use of assistive device. DISCHARGE RECOMMENDATIONS: [] ? Home with no services [] [] ? Home with services [] [] ? Home with outpatient PT [] [] ? SNF for continued rehabilitation [] [] ? Detention Care [] [] ? SNF versus LTC based on ability to participate and progress [] [X] SNF vs. HH PT based on ability to progress towards goals TREATMENT CODE/TIME: 99027 x 30 minutes beginning at 8:59 AM. Thank you for the opportunity to participate in the care of this patient. Kristel Dhillon PT, DPT, CLT [facility] [place], [place]
--- NOTE | 2022-11-14 09:41 | NCONE_ITS ---
Date of service: 11/14/22 Time of Service: 09:42 Assessment and Plan Assessment and plan (1) Parkinsonism: Status: Chronic (2) Tardive dyskinesia: Status: Chronic (3) Confabulation: Status: Chronic (4) Memory loss: Status: Acute (5) Alcohol abuse, in remission: Status: Acute (6) Delirium: Status: Acute (7) Pharyngoesophageal dysphagia: Status: Acute Assessment and plan: Mr. Urias is a complicated patient with preceding memory issues from a combination of baseline cognitive deficits, ETOH abuse/Wernicke, and mood/personality disorder; along with known dysphagia secondary to a combination of tardive dyskinesia and neuroleptic-induced Parkinsonism - now both significantly worse in the setting of bilateral pneumonia and sepsis for which h ike is still requiring oxygen supplementation and now on TPN for nutrition due to such decline in his swallowing. #Inability to follow commands. This is likely more delirium than Parkinsons as his alertness is impaired. Consider updated B12 level. Consider treatment with high dose IV thiamine if not done so already. Ensure good sleep at night. Encourage out of bed during the day. Otherwise, unclear if PDism is contributing to need for significant cueing. Could consider starting Sinemet 25/100mg TID one hour before meal times - also to see if this helps with swallowing. #Dysphagia. Due to TD and PDism, and further complicated by delirium. It seems all 3 factors are playing a role. See above for delirium recs. Consider adding Sinemet as above. Could consider increasing tetrabenazine to 50mg BID for his TD movements. #Neuroleptic-induced PDism. See above. #Tardive dyskinesia. See above. History of Present Illness Narrative: Handedness: LEFT. Mr. 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 Mr. Urias is well known to me from clinic, last seen 09/07/22, at which time we had increased his tetrabenazine to 25mg BID for his TD which seeming good benefit. At that time, the TD was the biggest factor in his swallowing. . He has been admitted here at [facility] since 11/05/22 for bilateral pneumonia and sepsis now with declining function, cognitively and specifically with swallowing, such that he is currently NPO and on TPN. Per MBSS/ST note, it appears TD component was biggest factor impacting his swallowing - but I have not spoke to ST specifically. His tetrabenazine was held until 11/08/22 pm and he is documented getting the medication except for 11/11/22 pm and 11/12/22 am. Nursing reports a decline over the weekend with Iggy no longer communicating. He remains on O2 via NC, previously was on Bipap. He was able to walk with PT this am but required significant cueing. Work-up: -MBSS (11/11/22): severe dysphagia, recommend no oral feeding. -TSH (11/06/22): 0.53 -see other lab results below Review of Systems All systems reviewed & are unremarkable except as noted in HPI and below PFSH All Active Problems (Updated 11/14/22 @ 09:48 by Sue Valladares MD) Delirium (Acute) Frailty syndrome in geriatric patient (Acute) History of lung cancer (Acute) Advanced care planning/counseling discussion (Acute) Palliative care encounter (Acute) Anemia (Chronic) Hyperglycemia (Acute) Sepsis (Acute) Hx pulmonary embolism (Chronic) Acute respiratory failure with hypoxia and hypercarbia (Acute) Community acquired pneumonia (Acute) Leukocytosis (Acute) Hypoalbuminemia (Acute) Parkinsonism (Chronic) Urinary incontinence (Acute) Pseudobulbar affect (Acute) Unintentional weight loss (Acute) Chronic anticoagulation (Chronic) Tardive dyskinesia (Chronic) Cervicalgia (Acute) Anxiety with somatic features (Chronic) chest wall pain, globus sensation, abdominal pain, shortness of breath Asthma-COPD overlap syndrome (Acute) GERD (gastroesophageal reflux disease) (Chronic) Depressive disorder (Chronic) Confabulation (Chronic) Memory loss (Acute) Non compliance w medication regimen (Chronic) Chest wall pain, chronic (Acute) Pharyngoesophageal dysphagia (Acute) Globus sensation (Acute) Vitamin D deficiency (Acute) Hypocalcemia (Chronic) Pulmonary embolism (Chronic 12/20/18) CT Report, Started on Eliquis Constipation (Chronic) Cognitive impairment (Chronic) [facility] progress note: 11/13/18, mild to moderate Chronic alcoholic pancreatitis (Acute) Umbilical hernia (Acute) Tubular adenoma of colon (Acute 05/04/09) 01/19/15 NO adenoma on repeat colonoscopy Malignant neoplasm of unspecified part of right bronchus or lung (Acute 10/04/17) Dyspepsia (Acute 04/26/16) Chronic obstructive pulmonary disease (Chronic 03/22/17) moderately severe 03/07/17: FEV1/FVC 1.82/3.48, 52% (+) Bronchodilator response compared to PFT in 2007, 800cc decline in FVC & 460cc decline in FEV1 Anxiety (Chronic 09/17/14) Alcohol abuse, in remission (Acute 04/26/16) Medical History Abdominal pain Adjustment disorder with anxiety (06/29/17) Alcohol abuse (11/27/12) Anxiety Dyspepsia Epigastric pain History of sore throat Malignant neoplasm of right lung Melena Palliative care patient Pancreatitis, acute Rash of face Thrush Tubular adenoma of colon Weight loss Surgical History colonoscopy (01/19/15) Also had a decompress colonoscopy with Dr Haresh Vásquez at [facility] on 06/09/18 for significant colon distention seen on CT scan, no prep done,therapeutic, diagnositc, still due for repeat on 01/19/25 History of lung biopsy History of surgery on upper extremity left Status post cataract extraction and insertion of intraocular lens of left eye (11/05/18) Family History Father Essential hypertension Hyperlipidemia Paternal Uncle Heart disease Stroke Cerebral hemorrhage Hypertension Brother Cancer head and neck cancer - smoker Social History Smoking/Tobacco Use Status: Former Tobacco Use Quit Date: 06/05/98 Tobacco: How many years used: 34 Smokeless tobacco user: chewing tobacco Quit status: not considering quitting Smoking risk assessment performed?: Yes Alcohol Intake: former Drug use: Occasionally Substance use type: marijuana Adopted: No Foster care: No Household members: other 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 Housing: other Details: Care Bed at this time Number of Children: 0 Communication Needs: None Do you need help understanding health information?: Often current occupation: not working Current gender identity: male How often do you talk on the phone with friends or family?: three or more times per week How often do you get together with friends or relatives?: three or more times per week Panel score (0-1 are the most socially isolated patients): 1 What type of physical activity do you participate in: none and other Details: started lifting weights Frequency: daily Seatbelt use: always Drive intox or ride w/intox dedicated local 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 Visit Medication and Allergies Active Medications Generic Name Dose Route Start Last Admin Trade Name Freq PRN Reason Stop Dose Admin Albuterol Sulfate 2.5 mg 11/05/22 11:50 Albuterol 2.5 Mg/3 Ml Inh Soln Vial UPD Q2H PRN PRN Albuterol/Ipratropium 3 ml 11/13/22 10:35 Albuterol/Ipratropium 3 Ml Upd Vial UPD QID PRN PRN Wheezing, Shortness of Breath Budesonide/Formoterol Fumarate 2 puff 11/05/22 20:00 11/14/22 07:53 Budesonide/Formoterol 160/4.5 6 Gm 60 Puff Inh IH 2 puffs BID ALIREZA Administration Device 1 each 11/05/22 13:00 Inhaler, Assist Device DIRECTED ALIREZA Dextrose 0 gm 11/05/22 18:24 Glucose Oral Gel 15 Gm/37.5 Gm Tube PO DIRECTED PRN Dextrose/Water 0 gm 11/05/22 18:24 11/12/22 08:01 Dextrose 50%-Water 25 Gm/50 Ml Syr IVP 25 gm DIRECTED PRN Administration Dimethicone/Zinc Oxide 0 gm 11/05/22 11:50 Kelsea Protect Cream 142 Gm Tube TP PRN PRN Docusate Sodium 100 mg 11/05/22 11:55 Docusate Sodium 100 Mg Cap PO TID PRN PRN Enoxaparin Sodium 60 mg 11/11/22 20:00 11/14/22 09:04 Enoxaparin 60 Mg/0.6 Ml Syr SC 60 mg Q12H ALIREZA Administration Fluoxetine HCl 20 mg 11/06/22 08:30 11/14/22 09:04 Fluoxetine 20 Mg Cap PO 20 mg DAILY ALIREZA Administration Sodium Chloride 500 mls @ 0 mls/hr 11/05/22 11:50 Saline 500ml Bag IV PRN PRN As Directed Acetaminophen 1,000 mg in 100 mls @ 400 mls/hr 11/05/22 17:45 11/07/22 14:00 Ofirmev IVPB Infused Q8H PRN PRN Infusion Fat Emulsion 50 gm in 250 mls @ 31.25 mls/hr 11/13/22 08:30 11/13/22 09:43 Intralipid 20% IVPB 31.25 mls/hr DAILY ALIREZA Administration Sodium/Potass/Mag/Palmer/Chlor/ 1,032 mls @ 85.917 mls/hr 11/13/22 17:00 11/14/22 05:06 Acetate 20 ml/ Multivitamins IV 11/13/23 16:59 Infused 10 ml/ Zinc/Copper/Manganese/ .BY DURATION ALIREZA Infusion Selenium 1 ml/ Thiamine HCl 100 mg/ Amino Acids/Dextrose Sodium/Potass/Mag/Palmer/Chlor/ 1,020 mls @ 85 mls/hr 11/13/22 17:00 11/14/22 05:53 Acetate 20 ml/ Amino Acids/ IV 11/13/23 16:59 85 mls/hr Dextrose .BY DURATION ALIREZA Administration IV Miscellaneous Supplies 1 each 11/05/22 12:00 Iv Access IV DIRECTED [facility] Insulin Aspart 0 - 9 units 11/12/22 06:00 11/14/22 06:02 Insulin Aspart 300 Units/3 Ml Pen SC Not Given Q6H [facility] Protocol Lorazepam 1 mg 11/11/22 20:00 11/14/22 09:04 Lorazepam 2 Mg/Ml Vial IVP 1 mg Q6H ALIREZA Administration Mirtazapine 45 mg 11/05/22 22:00 11/10/22 22:14 Mirtazapine 15 Mg Tab PO 45 mg HS ALIREZA Administration Neomycin/Polymyxin/Dexamethasone 0 gm 11/05/22 22:00 11/13/22 22:25 Antoine/Polymix/Dexameth Ophth Oint 3.5 Gm Tube OP 1 applic HS ALIREZA Administration Pantoprazole Sodium 40 mg 11/11/22 20:00 11/13/22 19:52 Pantoprazole 40 Mg Vial IVP 40 mg Q24H ALIREZA Administration Pt's Own 1 each 11/08/22 20:00 11/14/22 09:04 Tetrabenazin 25mg PO 1 each Tablet BID ALIREZA Administration Sodium Chloride 0 ml 11/05/22 11:50 11/14/22 05:54 Normal Saline Flush 10 Ml Syr IVP 50 ml PRN PRN Administration Tiotropium [place] 2 puff 11/06/22 08:30 11/14/22 07:53 Tiotropium [place]-Respimat 10 Puff Inh IH 2 inh DAILY ALIREZA Administration Allergies No Known Allergies Allergy (Verified 11/05/22 09:45) Exam Narrative Exam Narrative: Physical Exam: Gen: Patient of apparent stated age, thin; near constant chewing movements of the mouth c/w known TD Head and face: no facial or cranial abnormalities Neck: Supple, no meningismus, no occipital tenderness CV: RRR Resp: crackles CARLOS MANUEL>RU Abd: soft, nontender, nondistended Ext: No edema. No clubbing or cyanosis. No bony deformity. Neuro Exam: Language: did not produce any speech for me today; follows simple one step commands inconsistently Mental Status: awake Speech: no speech for me today Cranial nerves: Funduscopy: not performed CN II: visual roman intact by threat CN III, IV, : extraocular movements intact by observation, no nystagmus, pupils symmetric and reactive to light CN V: face sensation appears intact to PP CN VII: no facial asymmetry noted CN VIII: hearing appears intact CN IX, X: could not test as he could not open his mouth wide enough CN XI: could not test CN XII: he was unable to protrude his tongue for me Sensory: appears intact to PP in all limbs; could not test other modalities due to mental status Motor: Left hand claw deformity and atrophy - chronic. Mild LUE cogwheel rigidity complicated by grasp reflex. Was not able to participate in formal strength testing. Reflexes: 2+ throughout; toe down going on R and neutral on the left Coordination: no ataxia noted Gait: shuffling gait with extensive cueing needed. Near constant mouth movements. Results Last Vital Signs Temp 99.7 F H 11/14/22 08:20 Pulse 71 11/14/22 08:20 Resp 14 11/14/22 08:20 BP 118/74 11/14/22 08:20 Pulse Ox 100 11/14/22 08:20 Labs 11/14/22 05:45 11/14/22 05:45 Labs: Laboratory Results - last 24 hr 11/14/22 11/14/22 11/14/22 05:45 05:45 05:45 WBC 10.55 RBC 4.33 L Hgb 12.4 L Hct 38.0 L MCV 88 MCH 28.6 MCHC 32.6 RDW 11.9 Plt Count 356 MPV 9.9 Immature Gran % 3.3 Neutrophils % 73.7 Lymphocytes % 12.9 Monocytes % 7.3 Eosinophils % 2.4 Basophils % 0.4 Nucleated RBC % 0.0 Absolute Neutrophils 7.78 H Absolute Lymphocytes 1.36 Absolute Monocytes 0.77 Absolute Eosinophils 0.25 Absolute Basophils 0.04 PT INR Sodium 137 Potassium 4.1 Chloride 103 Carbon Dioxide 29.1 Anion Gap 4.9 BUN 29 H Creatinine 0.9 Est GFR (CKD-EPI 2020) 93.03 Glucose 71 L Calcium 8.5 Magnesium 2.6 H Total Bilirubin 0.5 AST 25 ALT 39 Alkaline Phosphatase 131 H Total Protein 6.4 Albumin 2.1 L 11/14/22 05:45 WBC RBC Hgb Hct MCV MCH MCHC RDW Plt Count MPV Immature Gran % Neutrophils % Lymphocytes % Monocytes % Eosinophils % Basophils % Nucleated RBC % Absolute Neutrophils Absolute Lymphocytes Absolute Monocytes Absolute Eosinophils Absolute Basophils PT 10.4 INR 1.0 Sodium Potassium Chloride Carbon Dioxide Anion Gap BUN Creatinine Est GFR (CKD-EPI 2020) Glucose Calcium Magnesium Total Bilirubin AST ALT Alkaline Phosphatase Total Protein Albumin
--- NOTE | 2022-11-14 09:59 | OT.INNT ---
Occupational Therapy Notes 11/14/22 OT attempted to see pt who was working with Physical Therapy at the time that OT was available. OT was not able to work with pt at this time. OT will resume services tomorrow. LANA Méndez/L
[2022-11-14] MEDS: DEXTROSE 5%-LACTATED RINGERS 1,000 ML 75 ML IV (10:50)
[2022-11-14 11:14] LABS: Bilirubin Negative (Negative); Blood Small (Negative); Clarity Clear (Clear); Glucose Negative (Negative); Ketones Negative (Negative); Leukocyte Esterase Negative (Negative); Nitrite Negative (Negative); Specific Gravity 1.025 (1.005-1.025); Urobilinogen 0.2 mg/dL (Up to 0.2); pH 5.5 (5-8)
[2022-11-14 11:18] LABS: BE (Venous) 4 mmol/L (-2-3); HCO3 (Venous) 29 mmol/L (23-28); O2 Sat (Venous) 76 %; TCO2 (Venous) 26 mmol/L (24-29); pCO2 (Venous) 43 mmHg (41-51); pH (Venous) 7.43 (7.31-7.41); pO2 (Venous) 38 mmHg
[2022-11-14 11:21] LABS: Bacteria Negative HPF (Negative); C & S Indicated? No; Casts Negative LPF (Negative); Crystals Rare Calcium Oxalate HPF (Negative); Epithelial Cells Rare HPF (Negative); Mucus Negative (Negative); WBC Negative HPF (0-5)
[2022-11-14 11:21] LABS: Lab Add On Test DONE
[2022-11-14] MEDS: Furosemide 40 MG/4 ML VIAL IVP ×2 (11:21→15:34)
[2022-11-14 11:46] LABS: C-Reactive Protein 6.77 mg/dL (0.0-0.3)
--- NOTE | 2022-11-14 11:52 | PGE_ITS ---
Date of Service Date of service: 11/14/22 Time of Service: 11:52 Assessment and Plan Assessment and plan (1) Acute respiratory failure with hypoxia: Status: Acute Assessment and plan: In setting of fluid overload. Procalcitonin low - I think his pneumonia has been sufficiently treated. I think today's episode is predominantly due to fluid overload. Echo from 11/08 reveals LVEF of 60%, no valvular disease, RVSP of 24 mmHg. Continue CPAP, IV furosemide. TPN D/c'ed. Wean O2 as tolerated. (2) Delirium: Status: Acute Assessment and plan: In setting of acute hypoxia. No evidence of CO2 retention. Supplement O2, diurese. Not hypoglycemic. Dr Valladares also suggested that there may be component of Wernicke's encephalopathy. Will trial high dose thiamine. Check b12 level. UA negative. Consider CT head though the patient does not seem to have focal deficits. (3) Sepsis: Status: Resolved Assessment and plan: Due to PNA, present on admission. Off of abx. Procalcitonin remains negative, and today's event is not due to worsening PNA off of abx. Aspiration was probably a factor. NPO now awaiting a repeat swallow eval. Family would be interested in a feeding tube, per my conversation with the mother. (4) Hypoglycemia: Status: Acute Assessment and plan: Now that he will not have D10 support with his TPN, will monitor sugars Q2 hrs with prn D50. (5) Community acquired pneumonia: Status: Resolved Assessment and plan: As above (6) Asthma-COPD overlap syndrome: Status: Resolved Assessment and plan: Off of steroids at this time. (7) Acute lactic acidosis: Status: Resolved Assessment and plan: Resolved. Off of IVF. (8) FREDDY (acute kidney injury): Status: Resolved Assessment and plan: In setting of sepsis, elevated CPK. Has a lomax. . (9) Abdominal pain: Assessment and plan: CT abdomen negative. Likely chronic pain, No further workup is planned. (10) Elevated CPK: Status: Resolved Assessment and plan: Resolved. No signs of rhabdo. (11) Parkinsonism: Status: Chronic Assessment and plan: Followed by Dr Valladares. Will trial sinemet. PT/OT/speech consulted. (12) Tardive dyskinesia: Status: Chronic Assessment and plan: Continue tetrabenazine. Will double the dose. NPO until reevaluation by speech therapy. Family ok with NGT/tube feeding, which we should insert once the O2 requirement improves. (13) Hx pulmonary embolism: Status: Chronic Assessment and plan: Continue therapeutic enoxaparin (apixaban on hold in anticipation of a possible PEG tube). (14) Hyperglycemia: Status: Resolved Assessment and plan: A1C 5.4. If anything, the patient has been hypoglycemic lately. Will monitor accuchecks Q2 hourly given hypoglycemia and the fact that we had to stop TPN. (15) DVT prophylaxis: Status: Acute Assessment and plan: Hold chronic apixaban in anticipation of a possible PEG tube placement. Continue therapeutic enoxaparin. (16) Discharge planning issues: Status: Acute Assessment and plan: Full code. Transfer back to the ICU. Discussed with mother who ok'ed placement of a feeding tube. I have asked palliative care to revisit the patient. Continue PT/OT, speech Total Critical Care Time 60 minutes. Subjective Subjective Interval history since last seen: Mr Urias's mental status was noted to be somewhat different than his baseline when he was seen by Dr Valladares this morning. He had a difficult time following commands and appeared distracted. He did have a hypoglycemic episode to BG of 50 overnight. When we just checked his BG, it was 116. When I came to evaluate the patient, he had audible rales while on 2L of O2 by NC. When his vital signs were checked, he was saturating in the 70s on 4L of O2 by NC. Decision was made to transfer the patient to the ICU and start him on CPAP while giving him a dose of furosemide Exam Narrative Exam Narrative: General: Middle-aged male who keeps staring off into space and is reluctant to follow commands. On original exam, he had rales audible from the doorway. He is now on CPAP. HEENT: EOMI, MMM, stereotypic tongue/lip movement of tardive dyskinesia Heart: RRR, no m/r/g Lungs: Original exam: rales throughout B lungs; Now: Rhonchi and Rales L base, otherwise diminished breath sounds B. Abdomen: soft, nontender, nondistended : has a lomax, draining clear yellow urine Extremities: no edema BLEs Objective Last Vital Signs Temp 36.9 C 11/14/22 11:12 Pulse 95 H 11/14/22 11:44 Resp 33 H 11/14/22 11:44 BP 135/77 11/14/22 11:12 Pulse Ox 93 11/14/22 11:44 Laboratory Results - last 24 hr 11/14/22 11/14/22 11/14/22 05:45 05:45 05:45 WBC 10.55 RBC 4.33 L Hgb 12.4 L Hct 38.0 L MCV 88 MCH 28.6 MCHC 32.6 RDW 11.9 Plt Count 356 MPV 9.9 Immature Gran % 3.3 Neutrophils % 73.7 Lymphocytes % 12.9 Monocytes % 7.3 Eosinophils % 2.4 Basophils % 0.4 Nucleated RBC % 0.0 Absolute Neutrophils 7.78 H Absolute Lymphocytes 1.36 Absolute Monocytes 0.77 Absolute Eosinophils 0.25 Absolute Basophils 0.04 PT INR VBG pH VBG pCO2 VBG pO2 VBG HCO3 VBG Total CO2 VBG O2 Saturation VBG Base Excess Sodium 137 Potassium 4.1 Chloride 103 Carbon Dioxide 29.1 Anion Gap 4.9 BUN 29 H Creatinine 0.9 Est GFR (CKD-EPI 2020) 93.03 Glucose 71 L Calcium 8.5 Magnesium 2.6 H Total Bilirubin 0.5 AST 25 ALT 39 Alkaline Phosphatase 131 H C-Reactive Protein Total Protein 6.4 Albumin 2.1 L Urine Color Urine Clarity Urine pH Ur Specific [place] Urine Protein Urine Ketones Urine Blood Urine Nitrite Urine Bilirubin Urine Urobilinogen Ur Leukocyte Esterase Urine RBC Urine WBC Ur Epithelial Cells Urine Crystals Urine Bacteria Urine Casts Urine Mucus Ur Culture Indicated? Urine Glucose Add-On Test Request 11/14/22 11/14/22 11/14/22 05:45 05:45 05:45 WBC RBC Hgb Hct MCV MCH MCHC RDW Plt Count MPV Immature Gran % Neutrophils % Lymphocytes % Monocytes % Eosinophils % Basophils % Nucleated RBC % Absolute Neutrophils Absolute Lymphocytes Absolute Monocytes Absolute Eosinophils Absolute Basophils PT 10.4 INR 1.0 VBG pH VBG pCO2 VBG pO2 VBG HCO3 VBG Total CO2 VBG O2 Saturation VBG Base Excess Sodium Potassium Chloride Carbon Dioxide Anion Gap BUN Creatinine Est GFR (CKD-EPI 2020) Glucose Calcium Magnesium Total Bilirubin AST ALT Alkaline Phosphatase C-Reactive Protein 6.77 H Total Protein Albumin Urine Color Urine Clarity Urine pH Ur Specific [place] Urine Protein Urine Ketones Urine Blood Urine Nitrite Urine Bilirubin Urine Urobilinogen Ur Leukocyte Esterase Urine RBC Urine WBC Ur Epithelial Cells Urine Crystals Urine Bacteria Urine Casts Urine Mucus Ur Culture Indicated? Urine Glucose Add-On Test Request DONE 11/14/22 11/14/22 10:52 11:14 WBC RBC Hgb Hct MCV MCH MCHC RDW Plt Count MPV Immature Gran % Neutrophils % Lymphocytes % Monocytes % Eosinophils % Basophils % Nucleated RBC % Absolute Neutrophils Absolute Lymphocytes Absolute Monocytes Absolute Eosinophils Absolute Basophils PT INR VBG pH 7.43 H VBG pCO2 43 VBG pO2 38 VBG HCO3 29 H VBG Total CO2 26 VBG O2 Saturation 76 VBG Base Excess 4 H Sodium Potassium Chloride Carbon Dioxide Anion Gap BUN Creatinine Est GFR (CKD-EPI 2020) Glucose Calcium Magnesium Total Bilirubin AST ALT Alkaline Phosphatase C-Reactive Protein Total Protein Albumin Urine Color Yellow Urine Clarity Clear Urine pH 5.5 Ur Specific [place] 1.025 Urine Protein Trace H Urine Ketones Negative Urine Blood Small H Urine Nitrite Negative Urine Bilirubin Negative Urine Urobilinogen 0.2 Ur Leukocyte Esterase Negative Urine RBC 5-10 H Urine WBC Negative Ur Epithelial Cells Rare Urine Crystals Rare Calcium Oxalate Urine Bacteria Negative Urine Casts Negative Urine Mucus Negative Ur Culture Indicated? No Urine Glucose Negative Add-On Test Request Objective Narrative Objective Narrative: CXR: Left lung infiltrate.? Recommend nonportable PA and lateral views when clinically possible, or alternatively CT scan. Right PICC line remains in good position in the SVC. Per my read, there is evidence of cephalization and pulmonary edema. Time Spent with Patient Time Spent with Patient: >50 minutes Time was spent: preparing to see the patient(eg.review tests), obtaining and/or reviewing separately otained hiistory, ordering medications,tests, procedures, referring, communicating with other health reproductive healthcare assistant, indepentently interpreting results, counseling the patient and care coordination
[2022-11-14 11:58] LABS: Procalcitonin 0.1 ng/mL
[2022-11-14] MEDS: Dextrose 50%-Water 25 GM/50 ML SYR IVP (12:17)
--- NOTE | 2022-11-14 12:17 | PDOC.CMPRO ---
Date of service: 11/14/22 Time of Service: 12:17 Care Management Progress Note Progress Note Text Progress Note Text: S/O: Iggy was emergently transferred to the ICU this morning following a sudden decline in his respiratory status with a drop in oxygen saturation. He will be started on bipap. It is suspected that he is fluid overloaded following the initiation of TPN.Iggy was sitting up in his chair when CM met with him. RT was with him and had just removed the bipap and put him on nasal oxygen. It did not appear that he tolerated it and the plan was to put him back on Bipap for a while. A: Iggy is a 67 year old male admitted to [facility] on 11/05/22 for acute hypoxic respiratory failure. P:? Anticipate, Iggy will return home with New [facility] PT/OT services and resumption of community supports, once medically cleared. PT originally recommended home health PT however today indicated that SNF may be more appropriate. At this time Iggy is not willing to consider going to a correction facility. When discharged, he will follow up with? community providers and discharge plan of care and transport with family. CM will continue to follow and assess for discharge concerns.?
--- NOTE | 2022-11-14 12:39 | W.NUTRFU ---
Date of service: 11/14/22 Time of Service: 12:39 Nutrition Note NOTE: Iggy remains NPO. Currently receiving 100% of nutrient needs via TPN. Per morning meeting, may transition to enteral feeding in next couple of days. Estimated energy needs are 1680 kcal/day (30 kcal/kg/day), ? 56 to 67 g/day (1.0-1.2 g/kg/day), 1680 ml/day (30 ml/kg/day). If enteral feeding initiated, recommend: Jevity 1.5 @ 46 cc/hour, flush 200 ml q 6 hour provides total of 1650 kcal, 67.5 g protein, 1610 ml free water. Time Spent in Nutritional Counseling and Treatment: 10
[2022-11-14] MEDS: Carbidopa 25/Levodopa 100 TAB PO (15:35)
--- NOTE | 2022-11-14 15:35 | SCONE_ITS ---
Date of service: 11/14/22 Time of Service: 15:35 Assessment and Plan Assessment and plan (1) Dysphagia: Status: Inactive Assessment and plan: From a technical standpoint, Andrew fine candidate for insertion of percutaneous endoscopic gastrostomy tube. His previous CAT scan of the abdomen and pelvis that shows the stomach in good proximity to the anterior abdominal wall. The transverse colon is in the area, but I suspect this location would improve with insufflation during the procedure. Currently, he is not a great candidate for the operating room with concern for aspiration pneumonia, and the assistance of BiPAP. For now, I think would be reasonable to trial enteral nutrition by way of a Dobbhoff feeding tube. Assuming his pulmonary status improves over the next few days, we can move forward with a gastrostomy tube at that point. History of Present Illness History of Present Illness Chief Complaint: Dysphagia with aspiration Narrative: Alpesh is a 67-year-old male with complex medical history that is most significant for baseline cognitive defects, Warnicke encephalopathy, tardive dyskinesia and neuroleptic induced parkinsonianism. Had longstanding dysphagia, which seems to be getting worse. I am consulted for insertion of durable enteral feeding access. At the time of this consult, he had been transferred to the intensive care unit for declining mental status, and concern for aspiration pneumonia. Currently, he is saturating okay with the assistance of BiPAP. Currently, he is getting nutrition by way of total parenteral nutrition [facility] All Active Problems Discharge planning issues (Acute) DVT prophylaxis (Acute) Hypoglycemia (Acute) Acute respiratory failure with hypoxia (Acute) Delirium (Acute) Frailty syndrome in geriatric patient (Acute) History of lung cancer (Acute) Advanced care planning/counseling discussion (Acute) Palliative care encounter (Acute) Anemia (Chronic) Hx pulmonary embolism (Chronic) Acute respiratory failure with hypoxia and hypercarbia (Acute) Leukocytosis (Acute) Hypoalbuminemia (Acute) Parkinsonism (Chronic) Urinary incontinence (Acute) Pseudobulbar affect (Acute) Unintentional weight loss (Acute) Chronic anticoagulation (Chronic) Tardive dyskinesia (Chronic) Cervicalgia (Acute) Anxiety with somatic features (Chronic) chest wall pain, globus sensation, abdominal pain, shortness of breath GERD (gastroesophageal reflux disease) (Chronic) Depressive disorder (Chronic) Confabulation (Chronic) Memory loss (Acute) Non compliance w medication regimen (Chronic) Chest wall pain, chronic (Acute) Pharyngoesophageal dysphagia (Acute) Globus sensation (Acute) Vitamin D deficiency (Acute) Hypocalcemia (Chronic) Pulmonary embolism (Chronic 12/20/18) CT Report, Started on Eliquis Constipation (Chronic) Cognitive impairment (Chronic) [facility] progress note: 11/13/18, mild to moderate Chronic alcoholic pancreatitis (Acute) Umbilical hernia (Acute) Tubular adenoma of colon (Acute 05/04/09) 01/19/15 NO adenoma on repeat colonoscopy Malignant neoplasm of unspecified part of right bronchus or lung (Acute 10/04/17) Dyspepsia (Acute 04/26/16) Chronic obstructive pulmonary disease (Chronic 03/22/17) moderately severe 03/07/17: FEV1/FVC 1.82/3.48, 52% (+) Bronchodilator response compared to PFT in 2007, 800cc decline in FVC & 460cc decline in FEV1 Anxiety (Chronic 09/17/14) Alcohol abuse, in remission (Acute 04/26/16) Medical History Abdominal pain Adjustment disorder with anxiety (06/29/17) Alcohol abuse (11/27/12) Anxiety Dyspepsia Epigastric pain History of sore throat Malignant neoplasm of right lung [facility]ena Palliative care patient Pancreatitis, acute Rash of face Thrush Tubular adenoma of colon Weight loss Surgical History colonoscopy (01/19/15) Also had a decompress colonoscopy with Dr Haresh Vásquez at [facility] on 06/09/18 for significant colon distention seen on CT scan, no prep done,therapeutic, diagnositc, still due for repeat on 01/19/25 History of lung biopsy History of surgery on upper extremity left Status post cataract extraction and insertion of intraocular lens of left eye (11/05/18) Family History Father Essential hypertension Hyperlipidemia Paternal Uncle Heart disease Stroke Cerebral hemorrhage Hypertension Brother Cancer head and neck cancer - smoker Social History Smoking/Tobacco Use Status: Former Tobacco Use Quit Date: 06/05/98 Tobacco: How many years used: 34 Smokeless tobacco user: chewing tobacco Quit status: not considering quitting Smoking risk assessment performed?: Yes Alcohol Intake: former Drug use: Occasionally Substance use type: marijuana Adopted: No Foster care: No 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 Housing: other Details: Care Bed at this time Number of Children: 0 Communication Needs: None Do you need help understanding health information?: Often current occupation: not working Current gender identity: male How often do you talk on the phone with friends or family?: three or more times per week How often do you get together with friends or relatives?: three or more times per week Panel score (0-1 are the most socially isolated patients): 1 What type of physical activity do you participate in: none and other Details: started lifting weights Frequency: daily Seatbelt use: always Drive intox or ride w/intox 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 Exam GI Other: His abdomen is soft, nondistended, and there are no concerning surgical incisions. Results Last Vital Signs Temp 98.2 F 11/14/22 13:51 Pulse 91 H 11/14/22 15:07 Resp 24 11/14/22 15:07 BP 89/65 L 11/14/22 13:45 Pulse Ox 91 L 11/14/22 15:07 Labs 11/14/22 05:45 11/14/22 05:45 Labs: Laboratory Results - last 24 hr 11/14/22 11/14/22 11/14/22 05:45 05:45 05:45 WBC 10.55 RBC 4.33 L Hgb 12.4 L Hct 38.0 L MCV 88 MCH 28.6 MCHC 32.6 RDW 11.9 Plt Count 356 MPV 9.9 Immature Gran % 3.3 Neutrophils % 73.7 Lymphocytes % 12.9 Monocytes % 7.3 Eosinophils % 2.4 Basophils % 0.4 Nucleated RBC % 0.0 Absolute Neutrophils 7.78 H Absolute Lymphocytes 1.36 Absolute Monocytes 0.77 Absolute Eosinophils 0.25 Absolute Basophils 0.04 PT INR VBG pH VBG pCO2 VBG pO2 VBG HCO3 VBG Total CO2 VBG O2 Saturation VBG Base Excess Sodium 137 Potassium 4.1 Chloride 103 Carbon Dioxide 29.1 Anion Gap 4.9 BUN 29 H Creatinine 0.9 Est GFR (CKD-EPI 2020) 93.03 Glucose 71 L Calcium 8.5 Magnesium 2.6 H Total Bilirubin 0.5 AST 25 ALT 39 Alkaline Phosphatase 131 H C-Reactive Protein Total Protein 6.4 Albumin 2.1 L Procalcitonin Urine Color Urine Clarity Urine pH Ur Specific [place] Urine Protein Urine Ketones Urine Blood Urine Nitrite Urine Bilirubin Urine Urobilinogen Ur Leukocyte Esterase Urine RBC Urine WBC Ur Epithelial Cells Urine Crystals Urine Bacteria Urine Casts Urine Mucus Ur Culture Indicated? Urine Glucose Add-On Test Request 11/14/22 11/14/22 11/14/22 05:45 05:45 05:45 WBC RBC Hgb Hct MCV MCH MCHC RDW Plt Count MPV Immature Gran % Neutrophils % Lymphocytes % Monocytes % Eosinophils % Basophils % Nucleated RBC % Absolute Neutrophils Absolute Lymphocytes Absolute Monocytes Absolute Eosinophils Absolute Basophils PT 10.4 INR 1.0 VBG pH VBG pCO2 VBG pO2 VBG HCO3 VBG Total CO2 VBG O2 Saturation VBG Base Excess Sodium Potassium Chloride Carbon Dioxide Anion Gap BUN Creatinine Est GFR (CKD-EPI 2020) Glucose Calcium Magnesium Total Bilirubin AST ALT Alkaline Phosphatase C-Reactive Protein 6.77 H Total Protein Albumin Procalcitonin Urine Color Urine Clarity Urine pH Ur Specific [place] Urine Protein Urine Ketones Urine Blood Urine Nitrite Urine Bilirubin Urine Urobilinogen Ur Leukocyte Esterase Urine RBC Urine WBC Ur Epithelial Cells Urine Crystals Urine Bacteria Urine Casts Urine Mucus Ur Culture Indicated? Urine Glucose Add-On Test Request DONE 11/14/22 11/14/22 11/14/22 05:45 10:52 11:14 WBC RBC Hgb Hct MCV MCH MCHC RDW Plt Count MPV Immature Gran % Neutrophils % Lymphocytes % Monocytes % Eosinophils % Basophils % Nucleated RBC % Absolute Neutrophils Absolute Lymphocytes Absolute Monocytes Absolute Eosinophils Absolute Basophils PT INR VBG pH 7.43 H VBG pCO2 43 VBG pO2 38 VBG HCO3 29 H VBG Total CO2 26 VBG O2 Saturation 76 VBG Base Excess 4 H Sodium Potassium Chloride Carbon Dioxide Anion Gap BUN Creatinine Est GFR (CKD-EPI 2020) Glucose Calcium Magnesium Total Bilirubin AST ALT Alkaline Phosphatase C-Reactive Protein Total Protein Albumin Procalcitonin 0.1 Urine Color Yellow Urine Clarity Clear Urine pH 5.5 Ur Specific [place] 1.025 Urine Protein Trace H Urine Ketones Negative Urine Blood Small H Urine Nitrite Negative Urine Bilirubin Negative Urine Urobilinogen 0.2 Ur Leukocyte Esterase Negative Urine RBC 5-10 H Urine WBC Negative Ur Epithelial Cells Rare Urine Crystals Rare Calcium Oxalate Urine Bacteria Negative Urine Casts Negative Urine Mucus Negative Ur Culture Indicated? No Urine Glucose Negative Add-On Test Request
[2022-11-14] MEDS: THIAMINE 500 MG in Normal Saline 100 ML 200 MG IVPB (18:14)
[2022-11-14] MEDS: Mirtazapine 15 MG TAB 45 MG PO (21:34)
[2022-11-14] MEDS: Pantoprazole 40 MG VIAL IVP (21:35)
[2022-11-15] VITALS (29 sets, daily range): BP systolic 83–155; BP diastolic 59–94; PULSE 66–115; RESP 13–40; TEMP 36.7–38.2; O2SAT 89–96
[2022-11-15] MEDS: THIAMINE 500 MG in Normal Saline 100 ML 200 MG IVPB ×2 (01:48→16:06)
[2022-11-15] MEDS: LORazepam 2 MG/ML VIAL 1 MG IVP ×4 (03:05→21:18)
[2022-11-15] MEDS: Carbidopa 25/Levodopa 100 TAB PO ×3 (06:18→15:38)
[2022-11-15 06:37] LABS: Abs Immature Grans 0.24 10^3/uL (0.0-0.06); Absolute Basophil Count 0.04 10^3/uL (0.0-0.2); Absolute Eosinophil Count 0.15 10^3/uL (0.0-0.7); Absolute Lymphocyte Count 1.39 10^3/uL (1.2-3.4); Absolute Monocyte Count 0.78 10^3/uL (0.1-0.8); Absolute Neutrophil Count 8.05 10^3/uL (1.2-6.7); Basophils % 0.4; Eosinophils % 1.4; HCT 39.3 % (40.0-50.0); HGB 12.8 g/dL (13.5-17.5); Immature Grans % 2.3; Lymphocytes % 13.1; MCH 28.8 pg (27.0-33.0); MCHC 32.6 % (32.0-36.0); MCV 88 fL (80-95); MPV 9.9 fL (8.0-11.0); Monocytes % 7.3; Neutrophils % 75.5; Platelet Count 342 10^3/uL (130-400); RBC 4.45 10^6/uL (4.36-5.78); RDW 12.1 % (11.8-14.1); RDW-SD 38.9 fL; WBC 10.65 10^3/uL (4.4-10.8)
[2022-11-15] MEDS: Tiotropium Bromide-Respimat 10 PUFF INH 2 PUFF IH (07:27)
[2022-11-15] MEDS: Budesonide/Formoterol 160/4.5 6 GM 60 PUFF INH IH ×2 (07:27→19:28)
[2022-11-15 07:28] LABS: BUN 36 mg/dL (7-18); Calcium 8.6 mg/dL (8.5-10.1); Chloride 102 mmol/L (98-107); Estimated GFR 81.98 (mL/min/1.73m2); Glucose 90 mg/dL (74-106); Magnesium 2.6 mg/dL (1.8-2.4); Potassium 3.6 mmol/L (3.5-5.1); Sodium 138 mmol/L (136-145); Vitamin B12 1201 pg/mL (193-986)
--- NOTE | 2022-11-15 08:44 | W.PM.PROGNOT ---
Date of Service Date of service: 11/15/22 Time of Service: 08:46 Assessment and Plan Assessment and plan (1) Parkinsonism: Status: Chronic (2) Tardive dyskinesia: Status: Chronic (3) Confabulation: Status: Chronic (4) Memory loss: Status: Acute (5) Alcohol abuse, in remission: Status: Acute (6) Delirium: Status: Acute (7) Pharyngoesophageal dysphagia: Status: Acute Assessment and plan: Mr. Urias is a complicated patient with preceding memory issues from a combination of baseline cognitive deficits, ETOH abuse/Wernicke, and mood/personality disorder; along with known dysphagia secondary to a combination of tardive dyskinesia and neuroleptic-induced Parkinsonism - now both significantly worse in the setting of bilateral pneumonia and sepsis for which he is still requiring oxygen supplementation and now on TPN for nutrition due to such decline in his swallowing. #Inability to follow commands, secondary to encephalopathy/delirium. Maybe slight improvement since seen yesterday. Continue work-up/treatment of metabolic/infectious/etc issues. Noted to have catatonia like behaviors today and that is something to consider. -continue high dose thiamine #Dysphagia. Due to TD and PDism, and further complicated by encephalopathy/delirium. It seems all 3 factors are playing a role. -Continue Sinemet 25/100mg tID 1 hour prior to meals -Continue tetrabenazine to 50mg BID for his TD movements. #Neuroleptic-induced PDism. See above. #Tardive dyskinesia. See above. Subjective Subjective Interval history since last seen: Mr. Urias was transferred to the ICU yesterday shortly after I saw him for worsening hypoxia thought to be secondary to volume overload; tx with Lasix and CPAP. Now on O2 via NC. Mentation may be slightly improved??? He continues to stare off predominantly. He did briefly acknowledge me when I first walked in, but then just stared off. Not even staring at the TV. Near constant mouth movements. He again wouldn't follow any commands and was non-interactive until I asked him what his mom's name was. He was even able to spell her name for me. But then went back to non-interactive again. He has been started on high dose IV thiamine. Tetrabenazine was increased to 50mg BID last night. Sinemet was started last night. He was able to take his medications this am. -B12 (11/15/22): 1201 Exam Narrative Exam Narrative: Physical Exam: Constitutional: Patient of apparent stated age, thin; near constant chewing movements of the mouth c/w known TD Neuro: MS/Language/Speech: staring off and generally non-interactive; moderate dysarthria with the few words I got out of him CN: PERRL, Dolls eyes absent, visual roman intact by threat, trigeminal sensation intact, no facial asymmetry, hearing appears intact??? Motor: Left hand claw deformity and atrophy - chronic. Mild LUE cogwheel rigidity complicated by grasp reflex. Was not able to participate in formal strength testing. Some waxy catatonia components noted... Reflexes: downgoing toes Coordination: no ataxia Gait: not tested Objective Last Vital Signs Temp 98.6 F 11/15/22 05:00 Pulse 69 11/15/22 06:00 Resp 16 11/15/22 06:00 BP 112/68 11/15/22 06:00 Pulse Ox 93 11/15/22 07:31 Laboratory Results - last 24 hr 11/14/22 11/14/22 11/14/22 05:45 05:45 05:45 WBC RBC Hgb Hct MCV MCH MCHC RDW Plt Count MPV Immature Gran % Neutrophils % Lymphocytes % Monocytes % Eosinophils % Basophils % Nucleated RBC % Absolute Neutrophils Absolute Lymphocytes Absolute Monocytes Absolute Eosinophils Absolute Basophils VBG pH VBG pCO2 VBG pO2 VBG HCO3 VBG Total CO2 VBG O2 Saturation VBG Base Excess Sodium Potassium Chloride Carbon Dioxide Anion Gap BUN Creatinine Est GFR (CKD-EPI 2020) Glucose Calcium Magnesium C-Reactive Protein 6.77 H Vitamin B12 Procalcitonin 0.1 Urine Color Urine Clarity Urine pH Ur Specific [place] Urine Protein Urine Ketones Urine Blood Urine Nitrite Urine Bilirubin Urine Urobilinogen Ur Leukocyte Esterase Urine RBC Urine WBC Ur Epithelial Cells Urine Crystals Urine Bacteria Urine Casts Urine Mucus Ur Culture Indicated? Urine Glucose Add-On Test Request DONE 11/14/22 11/14/22 11/15/22 10:52 11:14 06:10 WBC RBC Hgb Hct MCV MCH MCHC RDW Plt Count MPV Immature Gran % Neutrophils % Lymphocytes % Monocytes % Eosinophils % Basophils % Nucleated RBC % Absolute Neutrophils Absolute Lymphocytes Absolute Monocytes Absolute Eosinophils Absolute Basophils VBG pH 7.43 H VBG pCO2 43 VBG pO2 38 VBG HCO3 29 H VBG Total CO2 26 VBG O2 Saturation 76 VBG Base Excess 4 H Sodium 138 Potassium 3.6 Chloride 102 Carbon Dioxide 30.0 Anion Gap 6.0 BUN 36 H Creatinine 1.0 Est GFR (CKD-EPI 2020) 81.98 Glucose 90 Calcium 8.6 Magnesium 2.6 H C-Reactive Protein Vitamin B12 1201 H Procalcitonin Urine Color Yellow Urine Clarity Clear Urine pH 5.5 Ur Specific [place] 1.025 Urine Protein Trace H Urine Ketones Negative Urine Blood Small H Urine Nitrite Negative Urine Bilirubin Negative Urine Urobilinogen 0.2 Ur Leukocyte Esterase Negative Urine RBC 5-10 H Urine WBC Negative Ur Epithelial Cells Rare Urine Crystals Rare Calcium Oxalate Urine Bacteria Negative Urine Casts Negative Urine Mucus Negative Ur Culture Indicated? No Urine Glucose Negative Add-On Test Request 11/15/22 06:10 WBC 10.65 RBC 4.45 Hgb 12.8 L Hct 39.3 L MCV 88 MCH 28.8 MCHC 32.6 RDW 12.1 Plt Count 342 MPV 9.9 Immature Gran % 2.3 Neutrophils % 75.5 Lymphocytes % 13.1 Monocytes % 7.3 Eosinophils % 1.4 Basophils % 0.4 Nucleated RBC % 0.0 Absolute Neutrophils 8.05 H Absolute Lymphocytes 1.39 Absolute Monocytes 0.78 Absolute Eosinophils 0.15 Absolute Basophils 0.04 VBG pH VBG pCO2 VBG pO2 VBG HCO3 VBG Total CO2 VBG O2 Saturation VBG Base Excess Sodium Potassium Chloride Carbon Dioxide Anion Gap BUN Creatinine Est GFR (CKD-EPI 2020) Glucose Calcium Magnesium C-Reactive Protein Vitamin B12 Procalcitonin Urine Color Urine Clarity Urine pH Ur Specific [place] Urine Protein Urine Ketones Urine Blood Urine Nitrite Urine Bilirubin Urine Urobilinogen Ur Leukocyte Esterase Urine RBC Urine WBC Ur Epithelial Cells Urine Crystals Urine Bacteria Urine Casts Urine Mucus Ur Culture Indicated? Urine Glucose Add-On Test Request Time Spent with Patient Time Spent with Patient: 35-49 minutes Time was spent: preparing to see the patient(eg.review tests), referring, communicating with other health manager intensive care and care coordination
--- NOTE | 2022-11-15 08:45 | PDOC.CMPRO ---
Date of service: 11/15/22 Time of Service: 08:46 Care Management Progress Note Progress Note Text Progress Note Text: S/O: Iggy was sitting up in a chair visiting with his parents and brother when CM met with him. He stated he was feeling better. Iggy is now off high flow oxygen and is saturating in the high 80s and low 90s on 1.5 L/min of nasal oxygen.A family meeting was held this afternoon with Dr. Damon from Palliative Care, Iggy's parents, Ellie Jay, Iggy's director case management in the community and CM. The discussions centered around discharge planning and the need for Iggy to go to rehab, code status and goals of care. There is an increasing possibility that Iggy may need a feeding tube and this issue was briefly discussed. and Mrs. Urias were clear that caring for Iggy at home has become a hardship and they are unable to continue. The issue of Iggy's capacity to make decisions about his health care needs was also a subject of conversation. Iggy remains hospital level of care and is not ready for transfer, but efforts will be made to enlist his agreement to pursue rehab when he is closer to being discharged. A: Iggy is a 67 year old male admitted to [facility] on 11/05/22 for acute hypoxic respiratory failure. P:? Iggy's discharge plan is not clear at this time. PT originally recommended home health PT however has since indicated that SNF may be more appropriate. At this time Iggy is not willing to consider going to a custodial facility. He would prefer rafael return home with [facility] PT/OT services and resumption of community supports, once medically cleared. His parents are not in support of that plan. CM will continue to follow and assess for discharge concerns.?
--- NOTE | 2022-11-15 09:02 | OT.INDS ---
Occupational Therapy Notes Occupational Therapy Inpatient Discharge Summary Date: 11/15/22 PRECAUTIONS: Fall, Standard, Full SUBJECTIVE: NT ASSESSMENT: Pt had a decline in his medical status and was transitioned to the ICU for management of his care. Due to the decline in his current level of function OT will need a new referral for further treatment/services if MD feels that skilled Occupational Therapy is appropriate at this time. PLAN: Discharge from OT services d/t decline in medical status. TREATMENT CODES/TIME: N/A Sera Monae, OTR/L
[2022-11-15] MEDS: Furosemide 40 MG/4 ML VIAL IVP (09:48)
[2022-11-15] MEDS: Normal Saline Flush 10 ML SYR IVP ×4 (09:48→21:19)
[2022-11-15] MEDS: Enoxaparin 60 MG/0.6 ML SYR SC ×2 (09:49→21:18)
[2022-11-15] MEDS: FLUoxetine 20 MG CAP PO (09:50)
--- NOTE | 2022-11-15 11:07 | PCPN_ITS ---
Date of service: 11/15/22 Time of Service: 13:00 Assessment and Plan Assessment and plan (1) Acute respiratory failure with hypoxia: Status: Acute (2) Frailty syndrome in geriatric patient: Status: Acute (3) Palliative care encounter: Status: Acute Assessment and plan: Preliminary note (full note to follow): Family meeting with mother Stephy Urias and father ,[facility] safety and health manager Ellie Jay, [facility] Susan Garcia and myself. Discussion and explanation that patient has some sort of progressive neurolog ical disorder affecting cognition as well and swallowing and other motor areas. Explained that most likely to progress. Explained that pt likely has lost capacity to make complex decisions (and parents would need to make them for him, as his HCA), but he may be able to make simple decisions. 2018 Advanced directive reviewed. 1. Feeding tube discussion: As per Dr. Santiago: tolerating PO pills given crushed for now, otherewise NPO. Dr Santiago has ordered trial of feeding thickened liquids with proper positioning and cuing. If this goes well, and RN EMERGENCY concurs, no PEG needed. If does not go well, family feel that patient would want a trial of PEG tube. Plan: See how trial of eating goes. If feeding tube needed, then reconvene with family and patient and surgeon and PCT. Note that 2018 AD has box checked off for trial of feeding tube. 2. Disposition: Family and [facility] safety and health manager really feel would be best for him to go to [facility] , at least for 2 weeks, after discharge. 91 yo mother adn 94 yo father are finding it very difficult to care for him. Incontinence nightly. They need to give him all medications. He does have [employer] MORT[employer] UNDERWRITER for an hour a day, but this dooes not always jive with when he needs help with personal care. Sounds like patient's siblings are unable to help with his care on a regular basis. Family, first aid officer and palliative care team all agree that transfer to [facility] subacute rehab stay is essential for both patient and family. It is unclear that patient has capacity to understand impact of his care needs on his parents. 3. ACP: Reviewed AD on file. Parents listed as primary and alternate HCA. Mother tells me that is both parents were unable to be HCA, patients sister and brother would be next in line. THis is not documented. Discussed that as neurological disease progresses, full code may not make sense or align with Iggy's goals. Explained rational and why this woul dbe advised. Parients would like him to remain full code for now. We will revisit this in the future. He remains Full COde for now. 4. Note that patient has received scheduled lorazepam 1 mg Q 6 h since 11/11/22. Previously on Clonazpam 1 mg PO BID. Although several resource charts report that these doses are equivalent, this feels like a high dose and may be contributing to sedation and delirium. Consider switching back to oral and perhaps lower dose of clonazepam at 0.5 mg BID. Palliative Care Team plans to meet with family and patient in about a week. We are available to meet sooner if needed to join in on care decision discussions (e.g. PEG tube, discharge planning) Total of 46 minutes or more spent today on Advance Care Planning. Patient and family participated voluntarily. Advance care planning may include (not limited to) explanation and discussion of advance directives, choosing and appointing healthcare agents, alternatives to various ACP tools, discussion of (and if indicated, completion of) COLST form, discussion of patient's values and overall goals for treatment, palliative and disease directive care options, ways to avoid hospital readmission including hospice discussions, care preferences should the patient's several other adverse health events. See today's palliative care note for additional information. This note was dictated using speech recognition software. Attempt was made at proofreading, but errors may be present. Please call with questions. (4) Advanced care planning/counseling discussion: Status: Acute (5) Pharyngoesophageal dysphagia: Status: Acute (6) Acute respiratory failure with hypoxia and hypercarbia: Status: Acute Subjective Subjective Interval history since last seen: Mr. Iggy Gimenez is a 67-year-old gentleman With history of parkinsonism, probable tardive dyskinesia, memory loss/dementia in addition to congenital cognitive challenges, history of alcohol abuse (sober since 2019, history of confabulation) and mood disorder and pulmonary embolism (previously on DOAC).? He was admitted to [facility] about 10 days ago with bilateral pneumonia, COPD exacerbation and respiratory failure with hypoxia/hypercarbia. Initially he did well responding to treatment. Case management was preparing to transfer him to [facility], although he refused and insisted on going home. He also had worsening dysphagia, which neurology attributes to his PD/TD. He has been n.p.o. and started on TPN. Process being started in the last few days to consideration of PEG tube. Then 36 hours ago he developed increased oxygen needs along with delirium, and he has been transferred back to the ICU. His oxygen requires have backed down, he seems a little less confused and is able to swallow his pills. family meeting held today with parents to review clinical situation, prognosis, current situation with dysphagia and possible future PEG tube placement, disposition and to review Health Care agent and patient's capacity Patient was felt to still have some mild delirium tonight, able to follow simple directions about half the time and answering in one word answers. Meeting was held without him present, however with plans to include him in any future discussions regarding treatment decision, with careful attention as to whether he has capacity. Care Team: Primary Care physician:Dr. Ybarra Neurologist: Dr. Osorio Choices for Care: Ellie Jay welfare case worker. Social HX: As per neurology notes and history from mother, never .? Has lived his whole life with parents (mother is 91 and father is 94) .? 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 Brother Mj also lives with them. Hobbies: Dad says that he used to like to sing.? Used to play ya[employer]asta Crystalsee and bingo.? Parents report that he used to drive. Mom says that he gave up a year ago.? Mother does the driving at this point. Also daughter Kerri (as per Ellie, not that involved) Additional services prior to admission: High needs choices for care, Genet Jay is [facility] home health welfare case worker ([facility]).? [employer] UNDERWRITER for 1 hour 5 days weekly (bathing, help make his bed, played games with him, took him for walks). Phone c all today with Ellie Jay. Function: Ambulation: Previous to admission, walks with walker at home. ADLs: Previous to admission feeds self.? Unknown if able to dress self.? Uses incontinence pads. iADLs:Needed spotting in shower due to unsteadiness. Mom has handles finances, for years. Hearing:OK Vision: reading glasses. Palliative Performance Scale % Ambulation Activity and Evidence of Disease Self Care Intake Level of Consciousness 100 Full Normal activity, no evidence of disease Full Normal Full 90 FullF Normal activity, some evidence of disease Full Normal Full 80 Full Normal activity with effort, some evidence of disease Full Normal or reduced Full 70 Reduced Unable to do normal work, some evidence of disease Full Normal or reduced Full 60 Reduced Unable to do hobby or some housework, significant disease Occasional assist necessary Normal or reduced Full or confusion 50 Mainly sit/lie Unable to do any work, extensive disease Considerable assistance required Normal or reduced Full or confusion 40 Mainly in bed Unable to do any work, extensive disease Mainly assistance Normal or reduced Full, drowsy, or confusion 30 Totally bed bound Unable to do any work, extensive disease Total care Reduced Full, drowsy, or confusion 20 Totally bed bound Unable to do any work, extensive disease Total care Minimal sips Full, drowsy, or confusion 10 Totally bed bound Unable to do any work, extensive disease Total care Mouth care only Drowsy or coma 0 - - - - Patient Score: Currently 30 Spiritual history: Christian Palliative review of systems: Pain: Dyspnea: GI symptoms: Appetite: Depression: Anxiety: Emotional Distress: Spiritual/Existential Distress: Advanced Care Planning: Advanced Directive: On file from 2018.? At that time desired full code, trial of intubation, certain limitations outlined in document. Health Care Agent: Stephy Urias (91-year-old mother), alternate Haresh Og Colonome (94-year-old father) COLST: None Limitations: Objective Last Vital Signs Temp 37.2 C 11/15/22 09:06 Pulse 73 11/15/22 09:00 Resp 25 H 11/15/22 09:00 BP 106/69 11/15/22 09:00 Pulse Ox 94 11/15/22 09:00 Laboratory Results - last 24 hr 11/14/22 11/14/22 11/14/22 05:45 05:45 05:45 WBC RBC Hgb Hct MCV MCH MCHC RDW Plt Count MPV Immature Gran % Neutrophils % Lymphocytes % Monocytes % Eosinophils % Basophils % Nucleated RBC % Absolute Neutrophils Absolute Lymphocytes Absolute Monocytes Absolute Eosinophils Absolute Basophils VBG pH VBG pCO2 VBG pO2 VBG HCO3 VBG Total CO2 VBG O2 Saturation VBG Base Excess Sodium Potassium Chloride Carbon Dioxide Anion Gap BUN Creatinine Est GFR (CKD-EPI 2020) Glucose Calcium Magnesium C-Reactive Protein 6.77 H Vitamin B12 Procalcitonin 0.1 Urine Color Urine Clarity Urine pH Ur Specific [place] Urine Protein Urine Ketones Urine Blood Urine Nitrite Urine Bilirubin Urine Urobilinogen Ur Leukocyte Esterase Urine RBC Urine WBC Ur Epithelial Cells Urine Crystals Urine Bacteria Urine Casts Urine Mucus Ur Culture Indicated? Urine Glucose Add-On Test Request DONE 11/14/22 11/14/22 11/15/22 10:52 11:14 06:10 WBC RBC Hgb Hct MCV MCH MCHC RDW Plt Count MPV Immature Gran % Neutrophils % Lymphocytes % Monocytes % Eosinophils % Basophils % Nucleated RBC % Absolute Neutrophils Absolute Lymphocytes Absolute Monocytes Absolute Eosinophils Absolute Basophils VBG pH 7.43 H VBG pCO2 43 VBG pO2 38 VBG HCO3 29 H VBG Total CO2 26 VBG O2 Saturation 76 VBG Base Excess 4 H Sodium 138 Potassium 3.6 Chloride 102 Carbon Dioxide 30.0 Anion Gap 6.0 BUN 36 H Creatinine 1.0 Est GFR (CKD-EPI 2020) 81.98 Glucose 90 Calcium 8.6 Magnesium 2.6 H C-Reactive Protein Vitamin B12 1201 H Procalcitonin Urine Color Yellow Urine Clarity Clear Urine pH 5.5 Ur Specific [place] 1.025 Urine Protein Trace H Urine Ketones Negative Urine Blood Small H Urine Nitrite Negative Urine Bilirubin Negative Urine Urobilinogen 0.2 Ur Leukocyte Esterase Negative Urine RBC 5-10 H Urine WBC Negative Ur Epithelial Cells Rare Urine Crystals Rare Calcium Oxalate Urine Bacteria Negative Urine Casts Negative Urine Mucus Negative Ur Culture Indicated? No Urine Glucose Negative Add-On Test Request 11/15/22 06:10 WBC 10.65 RBC 4.45 Hgb 12.8 L Hct 39.3 L MCV 88 MCH 28.8 MCHC 32.6 RDW 12.1 Plt Count 342 MPV 9.9 Immature Gran % 2.3 Neutrophils % 75.5 Lymphocytes % 13.1 Monocytes % 7.3 Eosinophils % 1.4 Basophils % 0.4 Nucleated RBC % 0.0 Absolute Neutrophils 8.05 H Absolute Lymphocytes 1.39 Absolute Monocytes 0.78 Absolute Eosinophils 0.15 Absolute Basophils 0.04 VBG pH VBG pCO2 VBG pO2 VBG HCO3 VBG Total CO2 VBG O2 Saturation VBG Base Excess Sodium Potassium Chloride Carbon Dioxide Anion Gap BUN Creatinine Est GFR (CKD-EPI 2020) Glucose Calcium Magnesium C-Reactive Protein Vitamin B12 Procalcitonin Urine Color Urine Clarity Urine pH Ur Specific [place] Urine Protein Urine Ketones Urine Blood Urine Nitrite Urine Bilirubin Urine Urobilinogen Ur Leukocyte Esterase Urine RBC Urine WBC Ur Epithelial Cells Urine Crystals Urine Bacteria Urine Casts Urine Mucus Ur Culture Indicated? Urine Glucose Add-On Test Request
[2022-11-15] MEDS: Docusate Sodium 100 MG CAP PO (12:01)
[2022-11-15] MEDS: ACETAMINOPHEN 1,000 MG/100 ML BTL 400 MG IVPB ×2 (12:01→22:13)
--- NOTE | 2022-11-15 13:15 | PGE_ITS ---
Date of Service Date of service: 11/15/22 Time of Service: 13:15 Assessment and Plan Assessment and plan (1) Acute respiratory failure with hypoxia: Status: Acute Assessment and plan: patient had episode yesterday of acute hypoxemia and respiratory distress w/ tachypnea and hypoxemia for which he was moved to ICU and treated for hypervolemia. CXR was not consistent w/ acute CHF/pulmonary edema and his BNP was not elevated yesterday. His LLL infiltrate actually appeared to be improved from his admission CXR and his procalcitonin level was normal. I do not think that he has worsening pneumonia nor was he in CHF. I will get CTA chest to rule out PE and also this will allow us to follow up his pneumonia. I have stopped his lasix as he is clinically dry, and borderline low BP. I will give him some additional iv fluids as he has not been taking oral intake as he has been NPO for possible PEG. Patient has now been on sinemet for 24hr and nursing reports he is tolerating taking his oral meds as long as they are crusshed. I think a trial of pureed and thickened liquids is reasonable before committing to PEG tube. Professional time spent interviewing and examining patient, discussion of goals of care with hospital team (care management, nursing and consulting professionals) was 45 minutes. (2) Delirium: Status: Acute Assessment and plan: his acute delirium seems to be resolved and probably was related to his hypoxemia yesterday. He is a former alcoholic, so he is on high dose thiamine for possible underlying Wernicke's/Korsakoff syndrome. He also may have some PD related dementia/cognitive impairment. (3) Sepsis: Status: Resolved Assessment and plan: patient was treated for sepsis d/t aspiration pneumonia on admission but shows not signs fo sepsis now w/ normal WBC and procalcitonin levels. His BP is a bit low today but probably from over diuresis. I have stopped his lasix and will put him on limited iv fluids overnight. (4) Hypoglycemia: Status: Acute Assessment and plan: will add D5LR at low rate. (5) Community acquired pneumonia: Status: Resolved Assessment and plan: some residual LLL infiltrate but clinically has improved. Not currently on antibiotics. Will check CT chest to evaluate LLL as well as rule out PE (6) Asthma-COPD overlap syndrome: Status: Resolved Assessment and plan: Off of steroids at this time. continue (7) FREDDY (acute kidney injury): Status: Resolved Assessment and plan: resolved although his bun is rising in setting of lasix. continue to monitor and give judicious fluids until taking po well. . (8) Parkinsonism: Status: Chronic Assessment and plan: Followed by Dr Valladares. Will trial sinemet. PT/OT/speech consulted. (9) Tardive dyskinesia: Status: Chronic Assessment and plan: Continue tetrabenazine. Will double the dose. trial of po feedings, if he fails this then he will need PEG tube; I doubt that he will allow nursing to leave an NG in place. (10) Hx pulmonary embolism: Status: Chronic Assessment and plan: Continue therapeutic enoxaparin (apixaban on hold in anticipation of a possible PEG tube). In light of his hypoxemic episode yesterday, I think that follow up CTA is indicated. (11) DVT prophylaxis: Status: Acute Assessment and plan: Hold chronic apixaban in anticipation of a possible PEG tube placement. Continue therapeutic enoxaparin. (12) Discharge planning issues: Status: Acute Assessment and plan: Anticipate, Iggy will return home with New [facility] PT/OT services and resumption of community supports, once medically cleared. Patient remains full code per his and his family's wishes. Subjective Subjective Interval history since last seen: Patient is more alert today although still seems to be confused. He did correctly state that he is currently in a hospital although he could not tell me where. He also was able to state his mother's name correctly (Vee). per nursing, he has been able to take his oral meds w/out choking. 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 Dr Valladares evaluated him this morning and has been working w/ our pharmacy regarding obtaining medication for his tardive dyskinesia (he is suppose to be on tetrabenazine 50 mg bid) Exam Narrative Exam Narrative: Patient is alert, looks at me when I speak to him and he answers me although in a quiet almost whisper (typical for PD like dysphonia) Mouth and lips appear to be very dry Neck: supple, no JVD LUngs: diminished breath sounds at bases but no rhonchi or wheezing or rales Heart: RRR Abdomen: soft, nondistended Legs/feet: no edema or cyanosis Objective Last Vital Signs Temp 37.2 C 11/15/22 09:06 Pulse 97 H 11/15/22 11:00 Resp 22 11/15/22 11:00 BP 128/84 11/15/22 11:00 Pulse Ox 91 L 11/15/22 11:00 Laboratory Results - last 24 hr 11/15/22 11/15/22 06:10 06:10 WBC 10.65 RBC 4.45 Hgb 12.8 L Hct 39.3 L MCV 88 MCH 28.8 MCHC 32.6 RDW 12.1 Plt Count 342 MPV 9.9 Immature Gran % 2.3 Neutrophils % 75.5 Lymphocytes % 13.1 Monocytes % 7.3 Eosinophils % 1.4 Basophils % 0.4 Nucleated RBC % 0.0 Absolute Neutrophils 8.05 H Absolute Lymphocytes 1.39 Absolute Monocytes 0.78 Absolute Eosinophils 0.15 Absolute Basophils 0.04 Sodium 138 Potassium 3.6 Chloride 102 Carbon Dioxide 30.0 Anion Gap 6.0 BUN 36 H Creatinine 1.0 Est GFR (CKD-EPI 2020) 81.98 Glucose 90 Calcium 8.6 Magnesium 2.6 H Vitamin B12 1201 H Time Spent with Patient Time Spent with Patient: 35-49 minutes Time was spent: preparing to see the patient(eg.review tests), ordering medications,tests, procedures, referring, communicating with other health ostomy care nurse, indepentently interpreting results, counseling the patient and care coordination
--- NOTE | 2022-11-15 13:15 | DI.CT_ITS ---
Exam(s) CT CHEST PE CTA EXAM: CT CHEST PE CTA CLINICAL HISTORY: hypoxemia. TECHNIQUE: Imaging Protocol: CT angiography of the chest was performed using pulmonary embolus wilfredo col. Multi planar reconstructions were performed. CONTRAST MATERIAL: Intravenous: Omnipaque 350 Contrast volume: 100 cc COMPARISON: CT CT ABDOMEN PELVIS WO from 11/05/2022 CR,XR XR PORTABLE CHEST AP POST LINE from 11/11/2022 CR XR PORTABLE CHEST AP from 11/14/2022 FINDINGS: CHEST: PULMONARY ARTERIES: There are no obvious intraluminal filling defects to suggest acute pulmonary embo li. LUNGS: There is a prominent area of infiltrate in the right upper lobe which measures approximately 6 by 2 cm. Also nodular infiltrate noted in the superior segment of the right lower lobe which measur es 9 x 8 mm. There is also patchy infiltrate lower down in the right upper lobe and right middle lob e. Also in the posterior basal segment right lower lobe. There is abundant mucus in the right mainstem bronchus extending to the hallie. Left mainstem bronch us is clear mucus. There are multilevel patchy infiltrates in all lobes of the left lung, including the lingular segment . No pleural effusions on either side. MEDIASTINUM: No obvious hilar nor mediastinal adenopathy. No axillary adenopathy. Visualized thyroi d unremarkable CARDIAC: Heart size is upper normal. There is no pericardial effusion.The diameter of the ascending thoracic aorta is upper normal. No dissection. There is no significant shift of the interventricul ar septum. PARTIALLY VISUALIZED UPPERMOST ABDOMEN: Small nodule in the left adrenal gland noted which measures 1 .3 x 1.0 cm. Right adrenal gland unremarkable. No splenomegaly. Partially included cyst in the lef t kidney measuring approximately 2 cm. OSSEOUS: No significant osseous lesions.No fractures. IMPRESSION: 1. No evidence of acute obvious pulmonary emboli.. 2. However, there are extensive bilateral infiltrates, the most prominent of which is in the right up per lobe and measures 6 x 2 cm. There are no associated pleural effusions 3. No obvious intrathoracic adenopathy. Small nodule left adrenal gland noted. RADIATION DOSE DELIVERED: 303.44mGy.cm Total DLP DATA REPOSITORY: All CT scans at this facility are submitted to the National Radiology Data Registry (NRDR) Dose Index Registry (DIR) with the [employer] (A[employer]). RADIATION OPTIMIZATION: All CT scans at this facility use at least one of these dose optimization te chniques: automated exposure control; mA and/or kV adjustment per patient size (includes targeted exa ms where dose is matched to clinical indication); or iterative reconstruction.
[2022-11-15] MEDS: Normal Saline - Diluent 50 ML VIAL IJ (14:21)
[2022-11-15] MEDS: Omnipaque 350 MG/ML 100 ML BTL IJ (14:21)
[2022-11-15] MEDS: Mirtazapine 15 MG TAB 45 MG PO (21:19)
[2022-11-15] MEDS: Pantoprazole 40 MG VIAL IVP (21:19)
[2022-11-16] VITALS (94 sets, daily range): BP systolic 52–118; BP diastolic 11–91; PULSE 58–161; RESP 6–52; TEMP 36.4–36.9; O2SAT 87–97
[2022-11-16] MEDS: LORazepam 2 MG/ML VIAL 1 MG IVP ×2 (02:05→04:26)
[2022-11-16] MEDS: Furosemide 40 MG/4 ML VIAL IVP (04:25)
--- NOTE | 2022-11-16 04:30 | DI.RAD_ITS ---
Exam(s) XR PORTABLE CHEST AP EXAM: XR PORTABLE CHEST AP CLINICAL HISTORY: respiratory failure. TECHNIQUE: 2D digital imaging was performed. COMPARISON: CR XR PORTABLE CHEST AP from 11/14/2022 FINDINGS: Single AP portable view. PICC line remains in good position in the SVC Heart size is upper normal. The mediastinum is not widened. There appears to be some radiographic improvement in the bilateral infiltrates although these and not completely resolved. Most prominent area of infiltrate remains in the right upper lobe. This appea rs unchanged. There are no obvious pleural effusions on this portable view. IMPRESSION: Some improvement bilaterally. Still most prominent infiltrate evident in the right upper lobe. This remains unchanged. DATA REPOSITORY: RADIATION DOSE DELIVERED:
--- NOTE | 2022-11-16 04:30 | RT.EKG_ITS ---
APPROVED REPORT Exam: Resting ECG Reason for Exam: tachycardic Patient Location: I HR:120 bpm ECG Measurements Heart Rate 120 AXIS AK 150 P 76 QRSd 74 QRS 59 QT 338 T 79 QTc 478 Conclusion Sinus tachycardia...rate> 99 Borderline prolonged QT interval...QTc >475mS Artifact in lead(s) II,III,aVF,V4
[2022-11-16] MEDS: Normal Saline 250 ML IV ×2 (04:50→05:20)
--- NOTE | 2022-11-16 05:36 | W.EVENT ---
Date of service: 11/16/22 Time of Service: 05:36 Event Note: Called for tachypnea. Staff report patient became suddenly tachypneic, with junky lung sounds. Received 40 Lasix prior to my arrival and IVF held. On arrival BP 60s/sys. Pulse 120s, RR 40s, O2 sats low-mid 90s on BiPAP. Patient diaphoretic, heart tachy and regular, lungs diffuse rhonchi and rales. Right radial strong, left weak, pedal pulses 2+. EKG sinus tachycardia with upsloping ST depressions similar to baseline; CXR without change, and no mediastinal widening. BP to 50s/sys, placed in Trendelenberg and bolus 250 NS x2. Over period of observation BP increased to 90s/sys, RR decreased approx 30, pulse decreased approx 100-110, O2 sats 93% on 3L NC. Patient now resting comfortably. A/P: I think this was almost certainly another aspiration event, and will watch for signs of any worsening of pneumonia. I do note the asymmetry in radial pulses and this will be useful in monitoring BP. I think this is likely baseline though I cannot find documentation to this effect, but suffice to say no clinical evidence of acute vascular event and this would not be consistent with recent events in any case. Will resume NPO status and maintenance IVF. Time Spent with Patient Time spent in critical care(minutes): 70 Time Spent Included: Coordination of care, Chart review, Documenting critically ill care, Time at immediate bedside and Discussing critically ill care with other medical staff
[2022-11-16 06:55] LABS: Absolute Lymphocyte Count 1.28 10^3/uL (1.2-3.4); Absolute Neutrophil Count 26.85 10^3/uL (1.2-6.7); Basophils % 0.2; HCT 32.4 % (40.0-50.0); HGB 10.6 g/dL (13.5-17.5); Immature Grans % 2.9; Lymphocytes % 4.1; MCHC 32.7 % (32.0-36.0); MCV 89 fL (80-95); Monocytes % 6.5; Neutrophils % 86.3; Platelet Count 437 10^3/uL (130-400); RBC 3.65 10^6/uL (4.36-5.78); RDW 12.2 % (11.8-14.1); RDW-SD 39.5 fL
[2022-11-16 06:58] LABS: Absolute Basophil Count 0.06 10^3/uL (0.0-0.2); Absolute Monocyte Count 2.02 10^3/uL (0.1-0.8)
[2022-11-16 07:29] LABS: ALT 25 U/L (16-63); AST 50 U/L (15-37); Albumin 2.1 g/dL (3.4-5.0); Alkaline Phosphatase 162 U/L (46-116); Anion Gap 11.4 mmol/L (3-11); BUN 48 mg/dL (7-18); Bilirubin, Total 0.7 mg/dL (0.2-1.0); CO2 24.6 mmol/L (21.0-32.0); CREATININE 2.3 mg/dL (0.70-1.30); Calcium 8.5 mg/dL (8.5-10.1); Chloride 104 mmol/L (98-107); Estimated GFR 30.17 (mL/min/1.73m2); Glucose 186 mg/dL (74-106); Potassium 4.7 mmol/L (3.5-5.1); Sodium 140 mmol/L (136-145); Total Protein 6.5 g/dL (6.4-8.2)
[2022-11-16 07:34] LABS: Procalcitonin 1.5 ng/mL
[2022-11-16 07:41] LABS: C-Reactive Protein 11.88 mg/dL (0.0-0.3)
[2022-11-16 07:48] LABS: WBC 31.11 10^3/uL (4.4-10.8)
[2022-11-16] MEDS: Budesonide/Formoterol 160/4.5 6 GM 60 PUFF INH IH ×2 (07:48→20:39)
[2022-11-16] MEDS: Tiotropium Bromide-Respimat 10 PUFF INH 2 PUFF IH (07:49)
[2022-11-16 07:52] LABS: Diff Comment Agrees w/ Instrument; RBC Morphology Normal
[2022-11-16] MEDS: THIAMINE 500 MG in Normal Saline 100 ML 200 MG IVPB ×3 (07:58→16:18)
--- NOTE | 2022-11-16 08:24 | CMPROGNOTE_ITS ---
Date of service: 11/16/22 Time of Service: 08:25 Care Management Progress Note Progress Note Text Progress Note Text: S/O: Iggy was lying in bed when CM met with him. He was drowsy and not very coherent at the time. He had received Ativan yesterday and, per nursing, remains groggy and somewhat confused. Last evening Iggy had another respiratory event when he likely aspirated again. He became hypoxemic, and hypotensive and developed a fever. He remains febrile and hypotensive today and his WBC has risen to 31.11. Iggy has been made NPO and a Dobbhoff tube was inserted. CM informed his parents and sister of the events of last night and indicated that the need for a feeding tube may be even greater. It was discussed briefly yesterday during the palliative care meeting, along with discharge planning concerns and code status.. A: Iggy is a 67 year old male admitted to [facility] on 11/05/22 for acute hypoxic respiratory failure. P:? Iggy's discharge plan is not clear at this time. PT originally recommended home health PT however has since indicated that SNF may be more appropriate. At this time Iggy is not willing to consider going to a [place] [facility] [place] facility. He would prefer to return home with New [facility] PT/OT services and resumption of community supports, once medically cleared. His parents are not in support of that plan.? CM will continue to follow and assess for discharge concerns.?
--- NOTE | 2022-11-16 08:27 | W.PM.PROGNOT ---
Date of Service Date of service: 11/16/22 Time of Service: 08:28 Assessment and Plan Assessment and plan (1) Acute respiratory failure with hypoxia: Status: Acute Assessment and plan: This is his second event while in hospital and therefore I do not think that even w/ use of Sinemet he can safely swallow and protect his airway. For now he will be NPO, I will treat his aspiration pneumonia w/ Zosyn, bronchodilators, I have asked RT to perform chest physiotherapy to help mobilize his secretions. I will talk w/ his family, I think that if he is not improving w/ aggressive pulmonary toiletry and antibiotics then either he should be intubated for pulmonary clearance of his pneumonia or they should consider a no code order. Critical care time spent interviewing and examining the patient, reviewing studies, discussing case with patient's nurse and consulting physicians was 60 minutes (2) Aspiration pneumonitis: Status: Acute (3) Sepsis: Status: Resolved Assessment and plan: Patient initially was treated for sepsis d/t pneumonia and completed a course of antibiotics w/ resolution of his inflammatory markers and improvement of his oxygen requirements, although his CT yesterday suggested that his infiltrates never completely resolved. He has had another respiratory event last night and now requires resumption of his antibiotics. He will be NPO. At present, he is not on vasopressors and I believe he is volume depleted given he was diuresed 2 days ago d/t alleged volume overload. His clinical exam and POCUS suggests otherwise. I will continue iv fluids, antibiotics and as long as his BP can be resonably maintained, I will hold off vasopressor. I am checking procalcitonin and lactate and checking VBG. (4) Hypoglycemia: Status: Resolved Assessment and plan: resolved now that he has D5LR (5) Asthma-COPD overlap syndrome: Status: Resolved Assessment and plan: treat w/ bronchodilators and antibiotics as noted above. I have not added steroids yet. He is not having an exacerbation of his COPD (6) FREDDY (acute kidney injury): Status: Resolved Assessment and plan: Had resolved from his inital event on admission but w/ diuretics recently and his hypotensive episode earlier this morning he has worsening renal function although still making urine. will check UA but suspect ATN from events of last night. (7) Parkinsonism: Status: Chronic Assessment and plan: d/t neuroleptic medications. followed by Dr. Valladares; sinemet was restarted but his dysphagia has not improved. I will order NG for administration of his meds while NPO (8) Tardive dyskinesia: Status: Chronic Assessment and plan: continue tetrabenazine as per neurologist's recommendation (9) Hx pulmonary embolism: Status: Chronic Assessment and plan: no recurrent PE per yesterday's CTA. continue therapeutic lovenox at 1 mg/kg SC q12h. DOAC held in anticipation of need for PEG tube (10) DVT prophylaxis: Status: Acute Assessment and plan: Hold chronic apixaban in anticipation of a possible PEG tube placement. Continue therapeutic enoxaparin. (11) Discharge planning issues: Status: Acute Assessment and plan: Anticipate, Iggy will return home with New [facility] PT/OT services and resumption of community supports, once medically cleared. Patient remains full code per his and his family's wishes. Subjective Subjective Interval history since last seen: Patient had acute respiratory event/rapid response early this morning in which he became severely hypoxemic, hypotensive and tachypneic. He responded to aerosol treatments, titration of his oxygen and fluid boluses. However when he had low urine output he was given lasix instead of more fluids. This morning he is better in that his SPO2 is improved and he is now down to 1 lpm w/ SPO2 of 91%. He is now more alert whereas he had been very lethargic. He is now NPO. CXR was done and he has residual bilateral infiltrates although improved from admission. CT last night demonstrated no PE but he has extensive bilateral infiltrates w/ the most prominent in the RUL. He was not started on antibiotics last night but I have resumed his Zosyn. He also suffered FERDDY w/ rise in his BUN and creatinine at 48 and 2.3. He made 600 mL in urine output for past 12hr. Exam Narrative Exam Narrative: Iggy is alert, he looks at me and he tries to mouth words to me when I ask him questions but I can not make out any intelligible answers Neck: supple, no JVD Lungs: coarse bilateral rhonchi, markedly diminished breath sounds at the bases, no rales Heart: regular but tachycardia, no appreciable murmurs Abdomen: scaphoid, soft, nontender, nondistended Extremities: no cyanosis or edema; moves all 4 extremiteis voluntarily Objective Last Vital Signs Temp 36.6 C 11/16/22 07:34 Pulse 107 H 11/16/22 07:34 Resp 31 H 11/16/22 07:34 BP 90/64 L 11/16/22 07:34 Pulse Ox 93 11/16/22 08:10 Laboratory Results - last 24 hr 11/16/22 11/16/22 11/16/22 06:00 06:00 06:00 WBC 31.11 H* RBC 3.65 L Hgb 10.6 L D Hct 32.4 L MCV 89 MCH 29.0 MCHC 32.7 RDW 12.2 Plt Count 437 H MPV 11.0 Immature Gran % 2.9 Neutrophils % 86.3 Lymphocytes % 4.1 Monocytes % 6.5 Eosinophils % 0.0 Basophils % 0.2 Nucleated RBC % 0.0 Absolute Neutrophils 26.85 H Absolute Lymphocytes 1.28 Absolute Monocytes 2.02 H Absolute Eosinophils 0.00 Absolute Basophils 0.06 RBC Morphology Normal Sodium 140 Potassium 4.7 D Chloride 104 Carbon Dioxide 24.6 Anion Gap 11.4 H BUN 48 H Creatinine 2.3 H D Est GFR (CKD-EPI 2020) 30.17 Glucose 186 H Calcium 8.5 Total Bilirubin 0.7 AST 50 H ALT 25 Alkaline Phosphatase 162 H C-Reactive Protein 11.88 H Total Protein 6.5 Albumin 2.1 L Procalcitonin 1.5 Reviewed Pertinent PMH: Yes Objective Narrative Objective Narrative: limited POCUS exam of heart (subxiphoid view only) and lungs was performed. Cardiac dow his RA and RV appear to be underfilled and he has normal to hypercontractile activity of his RV and LV and his IVC is small, <1 cm and completely collapses w/ inspiration, I could not get PLAX or PSAX or A4C views and therefore could not get LVOT VTI but it seems that he is hypovolemic and in need of iv fluids. Lung dow he has a line pattern in his upper lung roman but has B lines and consolidation at his bases, consistent w/ pneumonia. Time Spent with Patient Time Spent with Patient: >50 minutes Time was spent: preparing to see the patient(eg.review tests), ordering medications,tests, procedures, referring, communicating with other health healthcare facility administrator, indepentently interpreting results, counseling the patient and care coordination
--- NOTE | 2022-11-16 08:49 | DI.VRAD_ITS ---
PROCEDURE INFORMATION: Exam: XR Chest Exam date and time: 11/16/2022 4:56 AM Age: 67 years old Clinical indication: Other: Respiratory failure TECHNIQUE: Imaging protocol: Radiologic exam of the chest. Views: 1 view. COMPARISON: CR XR PORTABLE CHEST AP 11/14/2022 11:47 AM FINDINGS: Tubes, catheters and devices: Right upper extremity PICC tip projects over the SVC. Lungs: There is right upper lung zone airspace opacity, slightly less conspicuous compared to 11/14/2022. There is platelike atelectasis in the left mid and lower lung zones. Pleural spaces: Unremarkable. No pleural effusion. No pneumothorax. Heart/Mediastinum: The heart size is normal for technique. Bones/joints: Unremarkable. IMPRESSION: 1. Decreased right upper lung zone airspace opacity. 2. Subsegmental atelectasis in the left mid and lower lung zones. Dictated and Authenticated by: Diana Browne MD. Ordering:RG Bruce MD
[2022-11-16] MEDS: Normal Saline 500 ML 1000 ML IV ×2 (08:59→14:53)
[2022-11-16] MEDS: PIPERACILLIN/TAZO 4.5 GM in Normal Saline 100 ML IVPB ×2 (09:12→16:18)
[2022-11-16 10:01] LABS: BE (Venous) -2 mmol/L (-2-3); HCO3 (Venous) 24 mmol/L (23-28); O2 Sat (Venous) 74 %; TCO2 (Venous) 23 mmol/L (24-29); pCO2 (Venous) 42 mmHg (41-51); pH (Venous) 7.36 (7.31-7.41); pO2 (Venous) 41 mmHg
[2022-11-16 10:03] LABS: Lactate 2.4 mmol/L (0.6-1.4)
[2022-11-16] MEDS: Enoxaparin 60 MG/0.6 ML SYR SC (10:32)
[2022-11-16] MEDS: Normal Saline 1,000 ML 1000 ML IV (13:00)
--- NOTE | 2022-11-16 14:05 | DI.RAD_ITS ---
Exam(s) XR LINE PLACEMENT PICC/CVA EXAM: XR LINE PLACEMENT PICC/CVA CLINICAL HISTORY: NG tube (Dobhoff) placement verification. TECHNIQUE: 2D digital imaging was performed. COMPARISON: CR,XR XR PORTABLE CHEST AP from 11/16/2022 FINDINGS: Portable AP view There is now a Dobbhoff catheter in place. It is not buckled in the esophagus. The distal aspect ap pears to be in the stomach. Distal tip of the right PICC line is in good position in the SVC. Heart size normal mediastinum is not widened. No new infiltrates nor pleural effusions. No pneumoth orax. IMPRESSION: Dobbhoff catheter appears to be in the stomach. If clinically indicated an AP view the abdomen can b e performed to include the entire catheter within the field of view. DATA REPOSITORY: RADIATION DOSE DELIVERED:
[2022-11-16 14:49] LABS: Bilirubin Negative (Negative); Blood Large (Negative); Clarity Cloudy (Clear); Glucose Negative (Negative); Ketones Trace mg/dL (Negative); Leukocyte Esterase Negative (Negative); Nitrite Negative (Negative); Urobilinogen 0.2 mg/dL (Up to 0.2)
[2022-11-16 15:00] LABS: Bacteria Moderate HPF (Negative); C & S Indicated? Yes; Casts Negative LPF (Negative); Crystals Negative HPF (Negative); Epithelial Cells Few HPF (Negative); Mucus Trace (Negative); RBC 20-50 HPF (0-2)
--- NOTE | 2022-11-16 15:24 | W.PM.PROGNOT ---
Date of Service Date of service: 11/16/22 Time of Service: 15:24 Assessment and Plan Assessment and plan (1) Parkinsonism: Status: Chronic (2) Tardive dyskinesia: Status: Chronic (3) Confabulation: Status: Chronic (4) Memory loss: Status: Acute (5) Alcohol abuse, in remission: Status: Acute (6) Delirium: Status: Acute (7) Pharyngoesophageal dysphagia: Status: Acute Assessment and plan: Mr. Urias is a complicated patient with preceding memory issues from a combination of baseline cognitive deficits, ETOH abuse/Wernicke, and mood/personality disorder; along with known dysphagia secondary to a combination of tardive dyskinesia >>> neuroleptic-induced Parkinsonism - now significantly worse in the setting of bilateral pneumonia and sepsis for which he is still requiring oxygen supplementation and on TPN for nutrition due to such decline in his swallowing. #Inability to follow commands, secondary to encephalopathy/delirium. He seems a bit more alert this afternoon - but still quite far from his baseline. -continue high dose thiamine #Dysphagia. Due to TD >>> PDism, and further complicated by encephalopathy/delirium. It seems all 3 factors are playing a role. -Continue Sinemet 25/100mg TID 1 hour prior to meals -Continue tetrabenazine to 50mg BID for his TD movements. Maybe slight improvement today? Could consider further increase next week.... #Neuroleptic-induced PDism. See above. #Tardive dyskinesia. See above. Subjective Subjective Interval history since last seen: Mr. Urias unfortunately has taken a downturn. He had a rapid response early this am, with hypotension, tachycardia, tachypnea, hypoxia - thought to be secondary to aspiration event. WBC newly elevated at ~31. Re-started on antibiotics. Oxygenation has improved through the day. Lorazepam 1mg q6hr has been stopped. He seems more alert this afternoon, but remains quite encephalopathic and easily becomes hypoxic with any movement/activity in bed. Otherwise, while TD movements are still prominent - they seem slightly better compared to yesterday??? Exam Narrative Exam Narrative: Physical Exam: Constitutional: Patient of apparent stated age, thin; frequent chewing movements of the mouth c/w known TD Neuro: MS/Language/Speech: staring off and generally non-interactive thoug did at times acknowledge my presence and asked for water; moderate-severe dysarthria with the few words I got out of him Motor: Left hand claw deformity and atrophy - chronic. Mild LUE cogwheel rigidity complicated by grasp reflex. Was not able to participate in formal strength testing. Kept trying to get out of bed - would become hypoxic and then lay down, rest, with eyes closed... Coordination: no ataxia Gait: not tested Objective Last Vital Signs Temp 97.9 F 11/16/22 13:55 Pulse 100 H 11/16/22 12:15 Resp 23 11/16/22 12:15 BP 89/58 L 11/16/22 12:15 Pulse Ox 93 11/16/22 10:30 Laboratory Results - last 24 hr 11/16/22 11/16/22 11/16/22 06:00 06:00 06:00 WBC 31.11 H* RBC 3.65 L Hgb 10.6 L D Hct 32.4 L MCV 89 MCH 29.0 MCHC 32.7 RDW 12.2 Plt Count 437 H MPV 11.0 Immature Gran % 2.9 Neutrophils % 86.3 Lymphocytes % 4.1 Monocytes % 6.5 Eosinophils % 0.0 Basophils % 0.2 Nucleated RBC % 0.0 Absolute Neutrophils 26.85 H Absolute Lymphocytes 1.28 Absolute Monocytes 2.02 H Absolute Eosinophils 0.00 Absolute Basophils 0.06 RBC Morphology Normal VBG pH VBG pCO2 VBG pO2 VBG HCO3 VBG Total CO2 VBG O2 Saturation VBG Base Excess VBG Lactate Sodium 140 Potassium 4.7 D Chloride 104 Carbon Dioxide 24.6 Anion Gap 11.4 H BUN 48 H Creatinine 2.3 H D Est GFR (CKD-EPI 2020) 30.17 Glucose 186 H Calcium 8.5 Total Bilirubin 0.7 AST 50 H ALT 25 Alkaline Phosphatase 162 H C-Reactive Protein 11.88 H Total Protein 6.5 Albumin 2.1 L Procalcitonin 1.5 Urine Color Urine Clarity Urine pH Ur Specific [place] Urine Protein Urine Ketones Urine Blood Urine Nitrite Urine Bilirubin Urine Urobilinogen Ur Leukocyte Esterase Urine RBC Urine WBC Ur Epithelial Cells Urine Crystals Urine Bacteria Urine Casts Urine Mucus Ur Culture Indicated? Urine Glucose Add-On Test Request 11/16/22 11/16/22 11/16/22 07:48 09:50 09:50 WBC RBC Hgb Hct MCV MCH MCHC RDW Plt Count MPV Immature Gran % Neutrophils % Lymphocytes % Monocytes % Eosinophils % Basophils % Nucleated RBC % Absolute Neutrophils Absolute Lymphocytes Absolute Monocytes Absolute Eosinophils Absolute Basophils RBC Morphology VBG pH 7.36 VBG pCO2 42 VBG pO2 41 VBG HCO3 24 VBG Total CO2 23 L VBG O2 Saturation 74 VBG Base Excess -2 VBG Lactate 2.4 H* Sodium Potassium Chloride Carbon Dioxide Anion Gap BUN Creatinine Est GFR (CKD-EPI 2020) Glucose Calcium Total Bilirubin AST ALT Alkaline Phosphatase C-Reactive Protein Total Protein Albumin Procalcitonin Urine Color Urine Clarity Urine pH Ur Specific [place] Urine Protein Urine Ketones Urine Blood Urine Nitrite Urine Bilirubin Urine Urobilinogen Ur Leukocyte Esterase Urine RBC Urine WBC Ur Epithelial Cells Urine Crystals Urine Bacteria Urine Casts Urine Mucus Ur Culture Indicated? Urine Glucose Add-On Test Request Cancelled 11/16/22 14:25 WBC RBC Hgb Hct MCV MCH MCHC RDW Plt Count MPV Immature Gran % Neutrophils % Lymphocytes % Monocytes % Eosinophils % Basophils % Nucleated RBC % Absolute Neutrophils Absolute Lymphocytes Absolute Monocytes Absolute Eosinophils Absolute Basophils RBC Morphology VBG pH VBG pCO2 VBG pO2 VBG HCO3 VBG Total CO2 VBG O2 Saturation VBG Base Excess VBG Lactate Sodium Potassium Chloride Carbon Dioxide Anion Gap BUN Creatinine Est GFR (CKD-EPI 2020) Glucose Calcium Total Bilirubin AST ALT Alkaline Phosphatase C-Reactive Protein Total Protein Albumin Procalcitonin Urine Color Yellow Urine Clarity Cloudy Urine pH 5.0 Ur Specific [place] 1.020 Urine Protein 100 H Urine Ketones Trace H Urine Blood Large H Urine Nitrite Negative Urine Bilirubin Negative Urine Urobilinogen 0.2 Ur Leukocyte Esterase Negative Urine RBC 20-50 H Urine WBC 3-5 Ur Epithelial Cells Few Urine Crystals Negative Urine Bacteria Moderate Urine Casts Negative Urine Mucus Trace Ur Culture Indicated? Yes Urine Glucose Negative Add-On Test Request Time Spent with Patient Time Spent with Patient: 25-34 minutes Time was spent: preparing to see the patient(eg.review tests), referring, communicating with other health spiritual care coordinator and care coordination
--- NOTE | 2022-11-16 16:05 | PHACLINREV_ITS ---
Pharmacy Admission Review - Admission Clinical Review (Last Reviewed 09/07/22 @ 09:26 by Sue Valladares MD) Hyperglycemia (Acute) Sepsis (Acute) Elevated CPK (Acute) Acute lactic acidosis (Acute) Acute respiratory failure with hypoxia and hypercarbia (Acute) Community acquired pneumonia (Acute) Leukocytosis (Acute) Hypoalbuminemia (Acute) FREDDY (acute kidney injury) (Acute) Asthma-COPD overlap syndrome (Acute) No Known Allergies Allergy (Verified 11/05/22 09:45) Resuscitation Status Full Code Height 5 ft 6 in Weight 56.4 kg - Comments Comments/Follow Ups: Sepsis due to CAP, BP's soft, Procal 0.4, Lactate elevated, WBC 28 on admission, now improved, started empiric Vanco w/Doxy, Rocephin. On steroids, Sats low 90's on 4L oxygen. Watch for results of blood and sputum cultures, monitor Vanco per protocol - Renal Dosing Renal Dosing: BUN 21 mg/dL (7-18) H 11/06/22 05:55 Creatinine 1.0 mg/dL (0.70-1.30) 11/06/22 05:55 Medications needing adjustments: Intervened (Vanco frequency adjustment based on improved SCr overnight) List of meds needing interventions: Vanco dose frequency adjustment - Anticoagulation Anticoagulation: Hgb 11.2 g/dL (13.5-17.5) L D 11/06/22 05:55 Hct 34.1 % (40.0-50.0) L 11/06/22 05:55 Plt Count 260 10^3/uL (130-400) 11/06/22 05:55 Creatinine 1.0 mg/dL (0.70-1.30) 11/06/22 05:55 Therapeutic Anticoagulation: Intervened Medications: Apixaban (At admission, pt's SCr was 1.6, wt<60kg so could have needed Apixiban dose adjustment; however SCr improved overnight so Eliquis 5mg po BID is appropriate) - Opiate Usage Evaluate Pain Scale/Pains Meds: N/A - Relevant Labs Sodium 142 mmol/L (136-145) 11/06/22 05:55 Potassium 4.0 mmol/L (3.5-5.1) 11/06/22 05:55 Chloride 108 mmol/L (98-107) H 11/06/22 05:55 Magnesium 2.2 mg/dL (1.8-2.4) 11/06/22 05:55 C-Reactive Protein > 25.00 mg/dL (0.0-0.3) H 11/06/22 05:55 Electrolytes, C-Reactive P, ESR: Reviewed - DM Control DM Control: Glucose 93 mg/dL (74-106) 11/06/22 05:55 Hemoglobin A1c 5.4 % (<5.7) 11/06/22 05:55 Finger Stick Blood Glucose 98 Finger Stick Blood Glucose 98 DM Control: Reviewed (Novolog scale, on steroids) - Cardiac Review Cardiac Review: Troponin I < 50 ng/L (<or=60) 11/05/22 11:22 NT-Pro-B Natriuret Pep 126 pg/mL (<300) 11/05/22 09:35 BP, HR, EF%: Reviewed (soft BP's, HR 70-80's, had some tachy) - Qtc Review QTc: Reviewed (QTC 483) - IV to PO Switch IV Medications: Reviewed (IV APAP, Anbx, fluids) - Home Meds Home Med List reviewed: Intervened (Some home med doses/frequencies were updated based on external med history from [place] [facility]) Medication adherence barriers identified?: Pt's own Terbenazine will be requested Antibiotic Activity - Pharmacy Antibiotic Review Pharmacy Antibiotic Activity: Renal function adjustment (Blood cultures pending, Vanco frequency adjustment based on improved SCr) - Antibiotic Information Antibiotic Review Info: Vanco, Doxy, Rocephin for Sepsis from CAP, Cultures pending, sputum needs to be collected
--- NOTE | 2022-11-16 16:13 | PDOC.STREC ---
Date of service: 11/16/22 Time of Service: 16:13 Speech Therapy Recommendations Report ST Recommendations: Non-treatment note: Since POLITICAL SCIENCE CHAIR last saw patient 2 days ago, at which point strict NPO with only limited freewater protocol in place for comfort, he was placed on a trial of puree and thickened liquids by MD before committing to PEG tube. Since Monday he has had 2 hypoxic events in as many days since my last visit with him, at least one of which thought to be related to aspiration, the other possibly secondary to ?hypervolemia. Patient was again made NPO and now NG tube placed for administration of meds. Unless his overall mental status and motor symptoms resolve significantly, he would need PEG tube to maintain nutrition and hydration safely. He will continue to require Frequent oral care every 2-3 hours for comfort and given he remains at risk of aspirating his secretions. Swabs and spoons dipped in cold water may be given for comfort if patient's mental status allows for this, currently he is not appropriate for sips water or ice chips given recent events and nursing report of reduced mental status. Diet Texture Recommendation:? N/A - NPO - Nothing by mouth For comfort, offer spoon dipped in cold water. MEDICATIONS Via alternative means as able. RISK MANAGEMENT: Perform oral care every 3-4 hours for comfort. Use friction & suction on all oral structures and apply hydrating gel. Coding
[2022-11-16] MEDS: LORazepam 2 MG/ML VIAL 0.5 MG IVP (16:24)
[2022-11-16] MEDS: Albuterol/Ipratropium 3 ML UPD VIAL UPD ×2 (16:52→21:39)
--- NOTE | 2022-11-16 17:50 | W.POCUS ---
Pocus Exam Limited Cardiac Exam DATE OF EXAM: 11/16/22 TIME OF EXAM: 08:49 PROVIDER THAT PERFORMED THE STUDY: Jose D Jarrettmichael IS THIS A REPEAT EXAM DURING THIS ENCOUNTER: no REASON FOR EXAM: Hypotension VISUALIZED STRUCTURES: four chambers, Interventricular septum and IVC VIEW OBTAINED: Subxiphoid PERTINENT FINDINGS/IMPRESSION: IVC inspiratory collapsability; No LV dysfunction, No plethoric IVC and No RV dilation DIFFERENTIAL DIAGNOSES: Limited view was obtained from subxiphoid window d/t patient respiratory status, could not get PLAX or PSAX or A4C views. Patient has underfilled RV and RA w/ small IVC (<1 cm) w/ greater than 50% collapsability w/ inspiration. Findings consistent w/ low right sided pressures and in context of hypotension would suggest hypovolemia. IVC collapsability index does not confer fluid tolerance nor fluid responsiveness but gives an estimation of low RA pressure, i.e. 3 cm or less. No pericardia effusion was seen and global RV and LV function appears to be hyperdynamic Exam complete Limited Thoracic Lung Exam DATE OF EXAM: 11/16/22 TIME OF EXAM: 09:00 PROVIDER THAT PERFORMED THE STUDY: Jose D Santiago IS THIS A REPEAT EXAM DURING THIS ENCOUNTER: No REASON FOR EXAM: Hypoxia VISUALIZED STRUCTURES: right anterior, left anterior, right lateral, left lateral, right subcostal and left subcostal PERTINENT FINDINGS/IMPRESSION: Pneumonia (right posterolateral and left inferior and superior posterolateral infiltrates seen); no pleural effusion on the left and no pleural effusion on the right INCIDENTAL FINDINGS: Patient has bilateral A-line pattern in the right and left anterior superior and anterior inferior lung roman however consolidation is seen in the right posterior lateral inferior field as well as the left posterior lateral inferior and superior lung roman. No pleural effusions were seen. Focal B-lines were seen in the right posterolateral inferior lung field as well as left posterior lateral inferior lung roman. Exam complete
[2022-11-16] MEDS: Mirtazapine 15 MG TAB 45 MG PO (21:39)
[2022-11-16] MEDS: Pantoprazole 40 MG VIAL IVP (21:40)
[2022-11-17] VITALS (205 sets, daily range): BP systolic 44–162; BP diastolic 29–100; PULSE 78–151; RESP 5–50; TEMP 36.3–37.4; O2SAT 32–98
--- NOTE | 2022-11-17 | DI.RAD_ITS ---
Exam(s) XR PORTABLE CHEST AP EXAM: XR PORTABLE CHEST AP CLINICAL HISTORY: lft side tube thoracostomy. TECHNIQUE: 2D digital imaging was performed. COMPARISON: CR XR PORTABLE CHEST AP from 11/17/2022 FINDINGS: Single AP portable view. There is now a newly placed thin caliber left thoracotomy tube and there has been re-expansion of the left lung with less than 5 percent remaining pneumothorax. Heart size is upper normal. The mediastinum is not widened. Infiltrate in the opposite-right lung base appears to be increasing, commensurate with what is seen o n the CT scan performed today. Lesser infiltrate is also again noted in the left lung. IMPRESSION: 1. Left chest tube with almost complete re-expansion of the left lung. 2. Increasing right lower lobe pneumonia in the posterior basal segment right lower lobe, as seen on CT scan earlier today Called by myself to ICU DATA REPOSITORY: RADIATION DOSE DELIVERED:
[2022-11-17 08:44] LABS: ALT 20 U/L (16-63); AST 60 U/L (15-37); Albumin 1.7 g/dL (3.4-5.0); Alkaline Phosphatase 102 U/L (46-116); Anion Gap 9.6 mmol/L (3-11); BUN 65 mg/dL (7-18); Bilirubin, Total 0.6 mg/dL (0.2-1.0); CO2 22.4 mmol/L (21.0-32.0); Calcium 7.8 mg/dL (8.5-10.1); Chloride 110 mmol/L (98-107); Glucose 191 mg/dL (74-106); Potassium 5.4 mmol/L (3.5-5.1); Sodium 142 mmol/L (136-145); Total Protein 5.4 g/dL (6.4-8.2)
[2022-11-17 08:58] LABS: Abs Immature Grans 0.79 10^3/uL (0.0-0.06); Basophils % 0.1; Immature Grans % 2.9; Lymphocytes % 8.2; MCHC 32.1 % (32.0-36.0); MCV 90 fL (80-95); MPV 11.7 fL (8.0-11.0); Monocytes % 9.5; Neutrophils % 79.3; Platelet Count 328 10^3/uL (130-400); RBC 2.17 10^6/uL (4.36-5.78); RDW 12.8 % (11.8-14.1); RDW-SD 41.8 fL
[2022-11-17] MEDS: Norepinephrine in D5W 8 MG/250 ML BAG 22.5 MG IV (09:02)
--- NOTE | 2022-11-17 09:05 | PDOC.CMPRO ---
Date of service: 11/17/22 Time of Service: 09:05 Care Management Progress Note Progress Note Text Progress Note Text: S/O: Iggy was lying in bed when CM met with him. Yesterday he became hypotensiveHe has not been doing well. A: Iggy is a 67 year old male admitted to [facility] on 11/05/22 for acute hypoxic respiratory failure. P:? Iggy's discharge plan is not clear at this time. PT originally recommended home health PT however has since indicated that SNF may be more appropriate. At this time Iggy is not willing to consider going to a alf facility. He would prefer to return home with [facility] PT/OT services and resumption of community supports, once medically cleared. His parents are not in support of that plan.? CM will continue to follow and assess for discharge concerns.?
[2022-11-17 09:08] LABS: CREATININE 4.1 mg/dL (0.70-1.30); Estimated GFR 15.08 (mL/min/1.73m2)
[2022-11-17 09:10] LABS: Absolute Basophil Count 0.03 10^3/uL (0.0-0.2); Absolute Lymphocyte Count 2.24 10^3/uL (1.2-3.4); Absolute Neutrophil Count 21.69 10^3/uL (1.2-6.7)
[2022-11-17 09:11] LABS: HGB 6.3 g/dL (13.5-17.5); WBC 27.35 10^3/uL (4.4-10.8)
[2022-11-17 09:12] LABS: HCT 19.6 % (40.0-50.0)
--- NOTE | 2022-11-17 09:15 | W.PULMCC ---
General Date of Service Date of service: 11/17/22 Time of Service: 07:30 Reason for Admission to ICU: Aspiration Respiratory failure Hypotension Assessment and Plan Assessment and plan (1) Septic shock: Status: Acute (2) History of lung cancer: Status: Acute (3) Acute respiratory failure with hypoxia: Status: Acute (4) Acute lactic acidosis: Status: Resolved (5) Leukocytosis: Status: Acute (6) Anemia: Status: Chronic (7) Hx pulmonary embolism: Status: Chronic (8) Hyperkalemia: Status: Acute (9) Acute renal failure: Status: Acute (10) Hyperglycemia: Status: Resolved (11) Hypoalbuminemia: Status: Acute (12) Parkinsonism: Status: Chronic (13) Tardive dyskinesia: Status: Chronic (14) Asthma-COPD overlap syndrome: Status: Resolved (15) GERD (gastroesophageal reflux disease): Status: Chronic (16) Confabulation: Status: Chronic (17) Memory loss: Status: Acute Assessment and plan: This is a 67 yo admitted to the ICU for septic shock in the setting of aspiration pneumonia. He was found to be hypotensive this morning and on POCUS his IVC was small and collapsable. I gave him 1 L LR and instructed to start Levophed. I placed an arterial line. His PICC is only single lumen so I also attempted to place a left subclavian CVC, however it was technically challenging and I had a concern of air aspiration so the procedure was stopped and I checked immediately with POCUS for PNX, however there was good lung slide throughout the left lung with no clear barcode on M mode. CXR read does not mention PNX. I was unable to attempt an alternative site due to clinic time constraints (subclavian initially decided upon due to patients TD of jaw and small, compressed IJ) so I asked for surgery to be called to help work on getting access. His Hb had a large drop today (disproportionately large when compared to other cell lines) and so I do think he needs a CTA A/P to assess for bleeding (particularly given recent re-initiation of therapeutic Lovenox). If his urine output does not improve with Levophed and fluid resuscitation to euvolemia, he may need transfer to a tertiary center for CRRT if this is in line with his wishes (his mother is DPOA). Dr. Santiago volunteered to call his mother to discuss this. I recommend bid labs given his FREDDY and potential bleed. Recommendations Pulmonary: Hypoxic respiratory failure - supplemental O2 for sats 88-92% - recommend ABG stat - IS and VibraPEP ACOS - continue Symbicort and Spiriva Aspiration - has Aj - aspiration precautions - on Protonix - on Zosyn Cardiac: Septic Shock - 1L LR stat due to hypovolemia on POCUS - start Levophed - if Levophed dose requirement is over 12, would add both stress dose steroids and vasopressin - s/p arterial line - recommend surgery placement of CVC - repeat lactate - recommend CTA abdomen/pelvis to assess for potential intraabdominal bleed/other source of acute decompensation - recommend regardless of creatinine elevaton and renal failure Renal: Acute renal failure - recommend bid BMP, Mg, Phos - if phos is >6 start sevelemer - strict I/O's - recommend discussion with mother regarding potential need for transfer to tertiary care for CRRT - fluid resuscitation to euvolemia Hypocalcemia - will monitor Hyperkalemia - no intervention required at this point - bid labs Hypoalbuminemia - will monitor I&O: Intake & Output 11/14/22 11/15/22 11/16/22 11/17/22 23:59 23:59 23:59 23:59 Intake Total 4457.459 / 4457.459 480 / 480 5262.500 / 5262.500 860.417 / 860.417 Output Total 2400 / 2900 2225 / 2475 500 / 500 5 / 5 Balance 2057.459 / 1557.459 -1744 / 4762.500 / 4762.500 855.417 / 855.417 Weight 56.7 kg 51.4 kg 51.8 kg 56.9 kg Daily Fluid Goal:: positive 1L GI Nutrition: Aspiration - as above - would hold tube feeds until more stable Date of Last Bowel Movement: 11/16/22 Infectious Disease: Septic shock 2/2 pneumonia - on Zosyn - vasopressor support as above Hematologic: Leukocytosis - due to aspiration pnuemonia Neurologic: Parkinsons/Wernikes/TD - neurology on board - hold tetrabenazine as this can cause hypotension Endocrine: No acute concerns Lines: L radial arterial line R PICC Sadie Rocha Recommend CVC - would avoid right subclavian or IJ given potential future CRRT need. 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 He is being treated with Zosyn for this and has developed a significant FREDDY with oliguria. He was hypotensive overnight and remained hypotensive this morning and is weak and somnolent. Exam Narrative Exam Narrative: Gen: NAD, normal respiratory effort, thin HENT: PERRL, No JVD Chest: No respiratory distress, normal appearance of chest, crackles at bases Heart: regular rate and rhythym, no murmurs, rubs or gallops Abdomen: Non-distended, soft, non tender Extremities: No clubbing, edema, cyanosis, rashes Neuro: AAOx3 , non focal Psych: cooperative, appropriate mental affect Most Recent VS/Results Last Vital Signs Temp 36.8 C 11/17/22 04:11 Pulse 109 H 11/17/22 04:11 Resp 36 H 11/17/22 04:11 BP 62/41 L 11/17/22 04:11 Pulse Ox 98 11/17/22 04:11 Laboratory Results - last 24 hr 11/16/22 11/16/22 11/16/22 07:48 09:50 09:50 VBG pH 7.36 VBG pCO2 42 VBG pO2 41 VBG HCO3 24 VBG Total CO2 23 L VBG O2 Saturation 74 VBG Base Excess -2 VBG Lactate 2.4 H* Sodium Potassium Chloride Carbon Dioxide Anion Gap BUN Creatinine Est GFR (CKD-EPI 2020) Glucose Calcium Total Bilirubin AST ALT Alkaline Phosphatase Total Protein Albumin Urine Color Urine Clarity Urine pH Ur Specific [place] Urine Protein Urine Ketones Urine Blood Urine Nitrite Urine Bilirubin Urine Urobilinogen Ur Leukocyte Esterase Urine RBC Urine WBC Ur Epithelial Cells Urine Crystals Urine Bacteria Urine Casts Urine Mucus Ur Culture Indicated? Urine Glucose Add-On Test Request Cancelled 11/16/22 11/17/22 14:25 06:05 VBG pH VBG pCO2 VBG pO2 VBG HCO3 VBG Total CO2 VBG O2 Saturation VBG Base Excess VBG Lactate Sodium 142 Potassium 5.4 H Chloride 110 H Carbon Dioxide 22.4 Anion Gap 9.6 BUN 65 H Creatinine 4.1 H* D Est GFR (CKD-EPI 2020) 15.08 Glucose 191 H Calcium 7.8 L Total Bilirubin 0.6 AST 60 H ALT 20 Alkaline Phosphatase 102 Total Protein 5.4 L Albumin 1.7 L Urine Color Yellow Urine Clarity Cloudy Urine pH 5.0 Ur Specific [place] 1.020 Urine Protein 100 H Urine Ketones Trace H Urine Blood Large H Urine Nitrite Negative Urine Bilirubin Negative Urine Urobilinogen 0.2 Ur Leukocyte Esterase Negative Urine RBC 20-50 H Urine WBC 3-5 Ur Epithelial Cells Few Urine Crystals Negative Urine Bacteria Moderate Urine Casts Negative Urine Mucus Trace Ur Culture Indicated? Yes Urine Glucose Negative Add-On Test Request Review of Systems Unobtainable due to mental condition Time spent with patient Time spent in Critical Care: 120 Time spent in Critical care included: Performing procedures not included in c.c time, Chart review, Documenting critically ill care, Time at immediate bedside and Discussing critically ill care with other medical staff Pocus Exam Limited Cardiac Exam DATE OF EXAM: 11/17/22 TIME OF EXAM: 07:30 PROVIDER THAT PERFORMED THE STUDY: Anjana De La Rosa IS THIS A REPEAT EXAM DURING THIS ENCOUNTER: no REASON FOR EXAM: Evaluation of LV function, Hypotension and Septic Shock VISUALIZED STRUCTURES: four chambers, Interventricular septum and IVC VIEW OBTAINED: Subxiphoid PERTINENT FINDINGS/IMPRESSION: IVC inspiratory collapsability and Other small IVC with total collapse with inspiration ; No LV dysfunction, No pericardial effusion, No RV dilation and No RV dysfunction Exam complete Limited Thoracic Lung Exam DATE OF EXAM: 11/17/22 TIME OF EXAM: 08:45 PROVIDER THAT PERFORMED THE STUDY: Anjana De La Rosa IS THIS A REPEAT EXAM DURING THIS ENCOUNTER: No REASON FOR EXAM: Pneumothorax VISUALIZED STRUCTURES: left anterior PERTINENT FINDINGS/IMPRESSION: No apparent abnormalities and Other impression: No obvious pneumothorax seen. M-mode with no barcode sign Exam complete Procedure Note Pre-op diagnosis: Septic Shock Procedure: Arterial Line Placement Performed by: Anjana De La Rosa MD Indications and/or Provisional Diagnosis: Invasive hemodynamic monitoring Consent: The patient has been informed and understands the information and situation provided to them about the procedure. Procedure is emergent. Type of Anesthesia/Sedation: Local anesthetic with 1% lidocaine was administered Fluids Given: See I&O Unless otherwise noted, there was no blood loss, specimens removed, cultures obtained, or drains retained. Time Out: A time-out was completed prior to procedure verifying correct patient, procedure, site, positioning, and special equipment if applicable. Procedure Technique/Description of Procedure: The patient was prepped and draped in the usual sterile fashion. An arterial line was introduced percutaneously and via the Seldinger technique into the left radial artery after 1 attempt(s). Good blood return without significant extremity blanching was noted. Good arterial wave form was noted. Blood loss was minimal. Post Procedure Diagnosis and Findings: Same as Indications and/or Provisional Diagnosis Complications: None Anjana De La Rosa MD Pulmonary & Critical Care Multi-Disciplinary Checklist Lines/Tubes CENTRAL LINE: yes, Central Line Day#: 1 Note: PICC line, plan for central line by surgery today ARTERIAL LINE: yes, Arterial Line Day#: 0 PENA: yes, Pena Day#: 12 ENDOTRACHEAL TUBE: no ICU Maintenance GLUCOSE 140-180mg/dL: yes NUTRITION AT GOAL: no, Reason/Intervention: now has Biaff, plan to start feeds when more stable PRESSURE ULCER: no RESTRAINTS: no ANTIBIOTICS(if yes, consider Stewardship): Yes Social Issues FAMILY UPDATED: yes PT/OT: no, Reason/Intervention: not appropriate today GOALS/DISPOSITION/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
--- NOTE | 2022-11-17 09:16 | DI.RAD_ITS ---
Exam(s) XR PORTABLE CHEST AP POST LINE EXAM: XR PORTABLE CHEST AP POST LINE CLINICAL HISTORY: line placement/ r/o pneumothorax. TECHNIQUE: 2D digital imaging was performed. COMPARISON: CT CT CHEST PE CTA from 11/15/2022 CR,XR XR PORTABLE CHEST AP from 11/16/2022 CR XR LINE PLACEMENT PICC/CVA from 11/16/2022 FINDINGS: Single AP portable view. Right PICC line remains in good position in the SVC and there is a Dobbhoff feeding tube in good posi tion in the distal stomach without significant kinking along its course. Heart size is upper normal. The mediastinum is not widened. There is further radiographic improvement in the appearance of the left lung. Also appears to be kip e improvement in the appearance of the right upper lobe infiltrate. There appears to be some mild in filtrate in the right lower lobe. There are no obvious pleural effusions. IMPRESSION: Some improvement. However, true evaluation would be best with repeat CT scan to compared to the CT s can performed 2 days prior. No IV contrast required. PICC line and Dobbhoff catheter in satisfactory position DATA REPOSITORY: RADIATION DOSE DELIVERED:
[2022-11-17 09:24] LABS: Diff Comment Diff Reviewed; RBC Morphology Normal
--- NOTE | 2022-11-17 09:27 | PGE_ITS ---
Date of Service Date of service: 11/17/22 Time of Service: 09:27 Assessment and Plan Assessment and plan (1) Hypovolemic shock: Status: Acute Assessment and plan: initially he was believed to be overdiuresed when he got iv lasix on Monday and Monday morning from what was believed to be hypervolemia from his TPN; however he was given iv fluids Monday afternoon and all day Monday. Despite this his renal function worsened and now he is hypotensive refractory to fluids. Morning labs show that his hemoglobin dropped from 12.8 on 11/15 to 10.6 yesterday, was believed to have been dilutional however it dropped to 6.3 gm this morning and repeat confirmation shows his Hb to be 5.3 gm. He is now getting 2 units of PRBC and probably will need more. I have ordered kcentra to reverse the anticoagulant effects of his lovenox (last dose was 60 mg on 11/16 @ 10:30. I did POCUS of his abdomen and it appears he has a retroperitoneal bleed. Once he is hemodynamically stable, I will confirm w/ CT abdomen/pelvis (noncontrast). Patient seen with and discussed w/ both Dr. De La Rosa and Dr. Cristhian Stephens as well as extensively discussed w/ nursing and family has been kept appraised intially via telephone and then in person Critical care time spent interviewing and examining the patient, reviewing studies, discussing case with patient's nurse and consulting physicians was 120 minutes (2) Anemia: Status: Chronic (3) FREDDY (acute kidney injury): Status: Resolved Assessment and plan: Patient now w/ acute oliguric renal failure secondary to hypovolemic shock superimposed on recent FREDDY from sepsis and he has had recent iv contrast for his CTA. His creatinine was normalized and been normal until yesterday when his creatinine angelita to 2.3 from 1.0. Now creatinine is up to 4.1 and BUN is up to 65, his urine output was only 500 mL yesterday. Overnight he has made no urine. He may need CRRT in which he case he will be transferred to a tertiary center. I discussed this w/ his mother who still wants full treatment including HD. (4) Aspiration pneumonitis: Status: Acute Assessment and plan: recurrent aspiration d/t dysphagia from TD and PD. He will eventually need PEG tube if he stabilizes and recovers from his shock (5) Acute respiratory failure with hypoxia: Status: Acute Assessment and plan: This is his second event while in hospital and therefore I do not think that even w/ use of Sinemet he can safely swallow and protect his airway. For now he will be NPO, I will treat his aspiration pneumonia w/ Zosyn, bronchodilators, I have asked RT to perform chest physiotherapy to help mobilize his secretions. I will talk w/ his family, I think that if he is not improving w/ aggressive pulmonary toiletry and antibiotics then either he should be intubated for pulmonary clearance of his pneumonia or they should consider a no code order. (6) Sepsis: Status: Resolved Assessment and plan: Patient initially was treated for sepsis d/t pneumonia and completed a course of antibiotics w/ resolution of his inflammatory markers and improvement of his oxygen requirements, although his CT yesterday suggested that his infiltrates never completely resolved. He has had another respiratory event last night and now requires resumption of his antibiotics. He will be NPO. At present, he is not on vasopressors and I believe he is volume depleted given he was diuresed 2 days ago d/t alleged volume overload. His clinical exam and POCUS suggests otherwise. I will continue iv fluids, antibiotics and as long as his BP can be resonably maintained, I will hold off vasopressor. I am checking procalcitonin and lactate and checking VBG. (7) Hypoglycemia: Status: Resolved Assessment and plan: resolved now that he has D5LR (8) Asthma-COPD overlap syndrome: Status: Resolved Assessment and plan: treat w/ bronchodilators and antibiotics as noted above. I have not added steroids yet. He is not having an exacerbation of his COPD (9) Parkinsonism: Status: Chronic Assessment and plan: d/t neuroleptic medications. followed by Dr. Valladares; sinemet was restarted but his dysphagia has not improved. I will order NG for administration of his meds while NPO (10) Tardive dyskinesia: Status: Chronic Assessment and plan: continue tetrabenazine as per neurologist's recommendation (11) Hx pulmonary embolism: Status: Chronic Assessment and plan: no recurrent PE per recent CTA. apixaban was held in anticipation of PEG placement. He was on full strength enoxaparin but has suffered acute blood loss anemia and now requires reversal of enoxparin and transfusion of blood (12) DVT prophylaxis: Status: Acute Assessment and plan: enoxaparin dc d/t severe blood loss anemia; use SCD (13) Discharge planning issues: Status: Acute Assessment and plan: Anticipate, Iggy will return home with [facility] PT/OT services and resumption of community supports, once medically cleared. Patient remains full code per his and his family's wishes. Subjective Subjective Interval history since last seen: Patient developed hypotension last night around 1 A.M. and has required repeated iv boluses of fluids. This morning his SBP was in the 70's and patient is more lethargic compared to his baseline yesterday. Patient required repeat boluses of LR x 2 liters after obtaining subxiphoid POCUS exam of his heart (done by Dr. De La Rosa) which demonstrated underfilled RA and RV that was hyperdynamic and his IVC is small and w/ very collapsible w/ inspiration suggesting that he is still inadequately volume resuscitated. He was started on levophed. Morning labs were late coming back d/t down time w/ [employer] but we have since learned that he is severely anemic w/ Hb 6.3 gm. He has had no obvious source of bleding, i.e. no hematemesis from NG and no melena or hematochezia from his rectum. He has been on enoxaparin for hx of PE (previously he was on apixaban). I am suspecting possible retroperitoneal bleeding. His FREDDY has worsened w/ the hypotension. Dr. De La Rosa attemtpted left subclavian CVC but was unsuccessful. No apparent PTX was seen on his lung POCUS and CXR also did not show PTX. Dr. Stephens was consulted and has put in a left subclavian under US guidance w/ no PTX seen on CXR. Exam Narrative Exam Narrative: Patient is awake but lethargic he is not coherent and able to participate in decision-making. Consent for A-line and central lines was obtained via telephone call to his mother Vee. HEENT is remarkable for dry mucous membranes neck shows flat neck veins normal carotid pulses Lungs with some coarse scattered bilateral rhonchi diminished breath sounds at the bases Hearts regular but tachycardic Abdomen is soft nontender to palpation with hypoactive bowel sounds Extremities without peripheral cyanosis or edema Objective Last Vital Signs Temp 36.8 C 11/17/22 04:11 Pulse 106 H 11/17/22 08:00 Resp 42 H 11/17/22 09:00 BP 99/42 L 11/17/22 08:00 Pulse Ox 94 11/17/22 08:00 Laboratory Results - last 24 hr 11/16/22 11/16/22 11/16/22 09:50 09:50 14:25 WBC RBC Hgb Hct MCV MCH MCHC RDW Plt Count MPV Immature Gran % Neutrophils % Lymphocytes % Monocytes % Eosinophils % Basophils % Nucleated RBC % Absolute Neutrophils Absolute Lymphocytes Absolute Monocytes Absolute Eosinophils Absolute Basophils RBC Morphology VBG pH 7.36 VBG pCO2 42 VBG pO2 41 VBG HCO3 24 VBG Total CO2 23 L VBG O2 Saturation 74 VBG Base Excess -2 VBG Lactate 2.4 H* Sodium Potassium Chloride Carbon Dioxide Anion Gap BUN Creatinine Est GFR (CKD-EPI 2020) Glucose Calcium Total Bilirubin AST ALT Alkaline Phosphatase Total Protein Albumin Urine Color Yellow Urine Clarity Cloudy Urine pH 5.0 Ur Specific [place] 1.020 Urine Protein 100 H Urine Ketones Trace H Urine Blood Large H Urine Nitrite Negative Urine Bilirubin Negative Urine Urobilinogen 0.2 Ur Leukocyte Esterase Negative Urine RBC 20-50 H Urine WBC 3-5 Ur Epithelial Cells Few Urine Crystals Negative Urine Bacteria Moderate Urine Casts Negative Urine Mucus Trace Ur Culture Indicated? Yes Urine Glucose Negative 11/17/22 11/17/22 06:05 06:05 WBC 27.35 H* RBC 2.17 L Hgb 6.3 L* D Hct 19.6 L* MCV 90 MCH 29.0 MCHC 32.1 RDW 12.8 Plt Count 328 MPV 11.7 H Immature Gran % 2.9 Neutrophils % 79.3 Lymphocytes % 8.2 Monocytes % 9.5 Eosinophils % 0.0 Basophils % 0.1 Nucleated RBC % 0.0 Absolute Neutrophils 21.69 H Absolute Lymphocytes 2.24 Absolute Monocytes 2.60 H Absolute Eosinophils 0.00 Absolute Basophils 0.03 RBC Morphology Normal VBG pH VBG pCO2 VBG pO2 VBG HCO3 VBG Total CO2 VBG O2 Saturation VBG Base Excess VBG Lactate Sodium 142 Potassium 5.4 H Chloride 110 H Carbon Dioxide 22.4 Anion Gap 9.6 BUN 65 H Creatinine 4.1 H* D Est GFR (CKD-EPI 2020) 15.08 Glucose 191 H Calcium 7.8 L Total Bilirubin 0.6 AST 60 H ALT 20 Alkaline Phosphatase 102 Total Protein 5.4 L Albumin 1.7 L Urine Color Urine Clarity Urine pH Ur Specific [place] Urine Protein Urine Ketones Urine Blood Urine Nitrite Urine Bilirubin Urine Urobilinogen Ur Leukocyte Esterase Urine RBC Urine WBC Ur Epithelial Cells Urine Crystals Urine Bacteria Urine Casts Urine Mucus Ur Culture Indicated? Urine Glucose Time Spent with Patient Time Spent with Patient: >50 minutes Time was spent: preparing to see the patient(eg.review tests), obtaining and/or reviewing separately otained hiistory, ordering medications,tests, procedures, referring, communicating with other health wound care physician, indepentently interpreting results, counseling the patient and care coordination
--- NOTE | 2022-11-17 09:32 | DI.RAD_ITS ---
Exam(s) XR PORTABLE CHEST AP POST LINE EXAM: XR PORTABLE CHEST AP POST LINE CLINICAL HISTORY: Post central line placement left subclavion.. TECHNIQUE: 2D digital imaging was performed. COMPARISON: CR XR LINE PLACEMENT PICC/CVA from 11/16/2022 CR XR PORTABLE CHEST AP POST LINE from 11/17/2022 FINDINGS: Single AP portable view. There has been interval placement of a left subclavian central line. Distal tip is at the SVC-RA elizabeth ction. There is a subtle suggestion of a possible subtle left apical pneumothorax, possibly artifact . There is no large pneumothorax. No mediastinal widening. No new pleural effusions. Right PICC l ine and Dobbhoff catheter remain in satisfactory position. Heart size remains normal There is some persistent infiltrate evident in both lower lobes. IMPRESSION: Interval placement of left subclavian central line. Distal tip is at the SVC-RA junction. Suggestion of possible small left apical pneumothorax versus artifact. Recommend repeat view perform ed during expiration. DATA REPOSITORY: RADIATION DOSE DELIVERED:
[2022-11-17 09:52] LABS: HGB 5.3 g/dL (13.5-17.5)
[2022-11-17 09:53] LABS: HCT 16.3 % (40.0-50.0)
[2022-11-17 10:20] LABS: Lactate 3.7 mmol/L (0.6-1.4)
[2022-11-17] MEDS: Normal Saline Flush 10 ML SYR IVP ×3 (10:25→21:10)
[2022-11-17] MEDS: PIPERACILLIN/TAZO 4.5 GM in Normal Saline 100 ML IVPB ×3 (10:27→22:08)
[2022-11-17] MEDS: THIAMINE 500 MG in Normal Saline 100 ML 200 MG IVPB ×3 (10:28→16:42)
[2022-11-17 10:29] LABS: BE -5 mmol/L (-2-3); HCO3 19 mmol/L (22-26); pCO2 28 mmHg (35-45); pH 7.44 (7.35-7.45); pO2 69 mmHg (80-105); sO2 96 % (95-98); tCO2 19 mmol/L (23-27)
[2022-11-17] MEDS: Normal Saline 500 ML 30 ML IV (10:31)
[2022-11-17 10:32] LABS: FIO2L 4 L; Site Arterial Line
[2022-11-17 10:36] LABS: INR 1.4 (0.9-1.1); Magnesium 2.1 mg/dL (1.8-2.4); PTT Activated 31.7 sec (21.5-31.9); Prothrombin Time 13.9 sec (9.3-11.0)
--- NOTE | 2022-11-17 11:03 | W.POCUS ---
Pocus Exam Limited Retroperitoneal(Renal)Exam DATE OF EXAM: 11/17/22 TIME OF EXAM: 09:58 PROVIDER THAT PERFORMED THE STUDY: Jose D Santiago REASON FOR EXAM: Acute renal failure, Anuria, Elevated creatine and Other (anemia, blood loss hypovolemic shock) indication: hypovolemic shock VISUALIZED STRUCTURES: left kidney, right kidney, Renal pelvis,left side and Renal pelvis, right side PERTINENT FINDINGS/IMPRESSION: Other (incidental left renal cyst noted) impression: findings suggestive of retroperitoneal bleed; recommend follow CT scan of abdomen and pelvis ; no hydronephrosis present INCIDENTAL FINDINGS: abdominal aorta visualized and does not appear aneurysmal, small amount of free fluid seen in left retrosplenic area under diaphragm; also fluid collection seen tracking in right psoas from the pelvis; urinary bladder small contracted w/ visualized catheter within the bladder, I did not see free fluid behind the bladder Exam complete
--- NOTE | 2022-11-17 12:15 | DI.CT_ITS ---
Exam(s) CT ABDOMEN PELVIS WO EXAM: CT ABDOMEN PELVIS WO CLINICAL HISTORY: anemia, hypovolemic shock; abdominal pain. TECHNIQUE: Imaging Protocol: Axial computed tomography images with coronal and sagittal reformatted images were created and reviewed CONTRAST MATERIAL: Intravenous: none Oral: None COMPARISON: CT CT CHEST PE CTA from 11/15/2022 CR XR PORTABLE CHEST AP POST LINE from 11/17/2022 FINDINGS: VISUALIZED LUNG BASES: There is now a prominent left-sided pneumothorax which was not evident on the CT scan of 11/15/2022 and corresponds to what is seen on today's chest x-ray. Amount of infiltrate i n the left lung is unchanged from prior study but there is also now significant increase in infiltrat e in the right lung base as well as a small right pleural effusion, not previously present.. ABDOMEN: There is now some ascites and are now 2 large hematomas in the right-side of the abdomen and pelvis. These are in the right-side of the abdomen subjacent to the liver as well as another similar appeari ng large hematoma with in the right iliacus muscle and extending down the right iliopsoas tendon to t he level of the lesser trochanter of the right hip. The more superior hematoma measures approximatel y 15 cm craniocaudal by 9 cm wide by 8 cm AP. The hematoma within the right iliacus muscle measures approximately 7 cm AP x 5 cm wide by 17 cm cephalocaudal length. There is a Dobbhoff catheter in place. Distal tip is in the proximal duodenal C-loop. LIVER: There are no obvious focal hepatic lesions evident of this noninfused study. GALLBLADDER/BILIARY: No calcified gallstones. Hyperdense intraluminal bile. CBD is not dilated. PANCREAS: No evidence of pancreatic mass nor dilatation of the pancreatic duct. SPLEEN: There is some perisplenic fluid now evident. No splenic laceration. Spleen size normal. No intrasplenic lesions. ADRENALS: There are no significant adrenal masses. KIDNEYS:No cysts evident. No solid renal masses. No calculi nor hydronephrosis. . ABDOMINAL AORTA: Abdominal aorta is not enlarged. LYMPH NODES: There is no retroperitoneal nor paraaortic adenopathy. ABDOMINAL WALL: No evidence of significant anterior abdominal wall nor inguinal hernia. GI: There is no evidence of bowel obstruction, free air, nor abscess. PELVIS: LYMPH NODES: There is no intrapelvic nor inguinal adenopathy. GI: No evidence of appendicitis.No evidence of sigmoid diverticulitis. URINARY BLADDER: There is a Noel catheter in the urinary bladder. REPRODUCTIVE: Prostate not enlarged OSSEOUS: No significant osseous lesions. IMPRESSION: 1. Significant deterioration. There is now a prominent left-side pneumothorax as well as new promine nt infiltrate in the right lung base, possibly related to aspiration. 2. Two large right sided stddc-[id number]-[id number] acute appearing hematomas evident with measureme nts as above. 3. Noel catheter in the urinary bladder. Dobbhoff catheter distal tip in the duodenal C-loop. Findings called by myself to the ICU hospitalist RADIATION DOSE DELIVERED: 670.75mGy.cm Total DLP DATA REPOSITORY: All CT scans at this facility are submitted to the National Radiology Data Registry (NRDR) Dose Index Registry (DIR) with the [employer] (ACR). RADIATION OPTIMIZATION: All CT scans at this facility use at least one of these dose optimization te chniques: automated exposure control; mA and/or kV adjustment per patient size (includes targeted exa ms where dose is matched to clinical indication); or iterative reconstruction.
[2022-11-17 12:22] LABS: HCT 38.1 % (40.0-50.0); HGB 12.5 g/dL (13.5-17.5)
--- NOTE | 2022-11-17 12:27 | CMPROGNOTE_ITS ---
Date of service: 11/17/22 Time of Service: 12:27 Care Management Progress Note Progress Note Text Progress Note Text: S/O: Iggy was lying in bed when CM met with him. Yesterday he became hypotensive and tachycardic. Today Iggy has developed hypovolemic shock. He is believed to have a retroperitoneal bleed. An A-line was inserted by Dr. De La Rosa and a central line was placed by Dr. Stephens. Dr. Santiago performed a POCUS exam of his abdomen where the probable retroperitoneal bleed was identified. Iggy's Hgb dropped from12.8 on 11/15 to 10.6 yesterday and today it is down to 5.3 . Four units of blood have been ordered and are transfusing. In addition to the bleeding and shock, Charity renal function continues to deteriorate. He is not producing much urine and his creatinine is up to 4.1. It was normal until yesterday. If this does not improve soon it may be necessary to transfer Iggy to a tertiary care facility for dialysis. Iggy's parents and brother visited this morning and CM met with them to offer support and to keep them updated.This afternoon Iggy was found to have a large left sided pneumothorax and 2 intra-abdominal hematomas. Dr. Stephens has been consulted regarding these new findings. A: Iggy is a 67 year old male admitted to [facility] on 11/05/22 for acute hypoxic respiratory failure. P:? Iggy's discharge plan is not clear at this time. PT originally recommended home health PT however has since indicated that SNF may be more appropriate. At this time Iggy is not willing to consider going to a half-way facility. He would prefer to return home with [facility] PT/OT services and resumption of community supports, once medically cleared. His parents are not in support of that plan.? CM will continue to follow and assess for discharge concerns.?
--- NOTE | 2022-11-17 13:46 | DI.RAD_ITS ---
Exam(s) XR PORTABLE CHEST AP EXAM: XR PORTABLE CHEST AP CLINICAL HISTORY: pneumothorax. TECHNIQUE: 2D digital imaging was performed. COMPARISON: CR XR PORTABLE CHEST AP POST LINE from 11/17/2022 FINDINGS: Single AP semi-erect portable view. Heart size is upper normal. The mediastinum is not widened. There is a left-sided pneumothorax evident, approximately 40 percent Distal tip of the left subclavian line is at the SVC-RA junction in the distal tip of the right PICC line is in the SVC. Dobbhoff catheter again noted. Lung infiltrates again noted. IMPRESSION: Right-sided pneumothorax, approximately 40-45 percent DATA REPOSITORY: RADIATION DOSE DELIVERED:
--- NOTE | 2022-11-17 13:50 | PGE_ITS ---
Date of Service Date of service: 11/17/22 Time of Service: 09:00 Assessment and Plan Assessment and plan (1) Hypovolemic shock: Status: Acute Assessment and plan: Given that the patient already had concern for a left pneumothorax, left side seems like a reasonable place to place a central line. This minimizes any chance of injury to the right side. Therefore, I prepped and draped the left subclavian and internal jugular. Next, with real-time ultrasound guidance, I directly cannulated the left axillary vein. I advanced a guidewire without any resistance, and using Seldinger technique, I advanced a 20 cm triple-lumen catheter in the usual fashion. I secured the line, and dressed in usual fashion. Subsequently, CT scan confirmed a left sided pneumothorax. I discussed this with his mother Vee and recommended tube thoracostomy to treat the pneumothorax. She proved informed consent and I then placed an 8 ukrainian tube thoracostomy in the usual fashion. This was done with sterile percutaneous techique and air was aspirated upon entry into the pleural space. The tube was secured and dressed. CXR conrimed good position with improved pneumothorax. Subjective Subjective Interval history since last seen: I was called urgently to the patient's bedside for intravenous access. Iggy had some evolving hypotension through this morning, and attempts were made to place a left subclavian line. That procedure was truncated because of concern for pneumothorax. Procedure ultrasound was performed, and was initially reassuring. Chest x-ray taken at my arrival did not show any gross pneumothorax, but the apex of the left lung was a little difficult to evaluate Objective Last Vital Signs Temp 99.3 F 11/17/22 12:05 Pulse 102 H 11/17/22 12:05 Resp 26 H 11/17/22 12:05 BP 159/85 H 11/17/22 12:05 Pulse Ox 97 11/17/22 12:05 Laboratory Results - last 24 hr 11/16/22 11/17/22 11/17/22 14:25 06:05 06:05 WBC 27.35 H* RBC 2.17 L Hgb 6.3 L* D Hct 19.6 L* MCV 90 MCH 29.0 MCHC 32.1 RDW 12.8 Plt Count 328 MPV 11.7 H Immature Gran % 2.9 Neutrophils % 79.3 Lymphocytes % 8.2 Monocytes % 9.5 Eosinophils % 0.0 Basophils % 0.1 Nucleated RBC % 0.0 Absolute Neutrophils 21.69 H Absolute Lymphocytes 2.24 Absolute Monocytes 2.60 H Absolute Eosinophils 0.00 Absolute Basophils 0.03 RBC Morphology Normal PT INR APTT ABG Sample Site ABG pH ABG pCO2 ABG pO2 ABG HCO3 ABG Total CO2 ABG O2 Saturation ABG Base Excess VBG Lactate Oxygen Liter Flow Sodium 142 Potassium 5.4 H Chloride 110 H Carbon Dioxide 22.4 Anion Gap 9.6 BUN 65 H Creatinine 4.1 H* D Est GFR (CKD-EPI 2020) 15.08 Glucose 191 H Calcium 7.8 L Phosphorus Magnesium Total Bilirubin 0.6 AST 60 H ALT 20 Alkaline Phosphatase 102 Total Protein 5.4 L Albumin 1.7 L Urine Color Yellow Urine Clarity Cloudy Urine pH 5.0 Ur Specific [place] 1.020 Urine Protein 100 H Urine Ketones Trace H Urine Blood Large H Urine Nitrite Negative Urine Bilirubin Negative Urine Urobilinogen 0.2 Ur Leukocyte Esterase Negative Urine RBC 20-50 H Urine WBC 3-5 Ur Epithelial Cells Few Urine Crystals Negative Urine Bacteria Moderate Urine Casts Negative Urine Mucus Trace Ur Culture Indicated? Yes Urine Glucose Negative Patient ABO/Rh Antibody Screen Crossmatch 11/17/22 11/17/22 11/17/22 09:33 09:33 10:12 WBC RBC Hgb 5.3 L* Hct 16.3 L* MCV MCH MCHC RDW Plt Count MPV Immature Gran % Neutrophils % Lymphocytes % Monocytes % Eosinophils % Basophils % Nucleated RBC % Absolute Neutrophils Absolute Lymphocytes Absolute Monocytes Absolute Eosinophils Absolute Basophils RBC Morphology PT INR APTT ABG Sample Site ABG pH ABG pCO2 ABG pO2 ABG HCO3 ABG Total CO2 ABG O2 Saturation ABG Base Excess VBG Lactate 3.7 H* Oxygen Liter Flow Sodium Potassium Chloride Carbon Dioxide Anion Gap BUN Creatinine Est GFR (CKD-EPI 2020) Glucose Calcium Phosphorus Magnesium Total Bilirubin AST ALT Alkaline Phosphatase Total Protein Albumin Urine Color Urine Clarity Urine pH Ur Specific [place] Urine Protein Urine Ketones Urine Blood Urine Nitrite Urine Bilirubin Urine Urobilinogen Ur Leukocyte Esterase Urine RBC Urine WBC Ur Epithelial Cells Urine Crystals Urine Bacteria Urine Casts Urine Mucus Ur Culture Indicated? Urine Glucose Patient ABO/Rh A Positive Antibody Screen NEGATIVE Crossmatch See Detail 11/17/22 11/17/22 11/17/22 10:12 10:12 10:25 WBC RBC Hgb Hct MCV MCH MCHC RDW Plt Count MPV Immature Gran % Neutrophils % Lymphocytes % Monocytes % Eosinophils % Basophils % Nucleated RBC % Absolute Neutrophils Absolute Lymphocytes Absolute Monocytes Absolute Eosinophils Absolute Basophils RBC Morphology PT 13.9 H INR 1.4 H APTT 31.7 ABG Sample Site Arterial Line ABG pH 7.44 ABG pCO2 28 L ABG pO2 69 L ABG HCO3 19 L ABG Total CO2 19 L ABG O2 Saturation 96 ABG Base Excess -5 L VBG Lactate Oxygen Liter Flow 4 Sodium Potassium Chloride Carbon Dioxide Anion Gap BUN Creatinine Est GFR (CKD-EPI 2020) Glucose Calcium Phosphorus 4.0 Magnesium 2.1 Total Bilirubin AST ALT Alkaline Phosphatase Total Protein Albumin Urine Color Urine Clarity Urine pH Ur Specific [place] Urine Protein Urine Ketones Urine Blood Urine Nitrite Urine Bilirubin Urine Urobilinogen Ur Leukocyte Esterase Urine RBC Urine WBC Ur Epithelial Cells Urine Crystals Urine Bacteria Urine Casts Urine Mucus Ur Culture Indicated? Urine Glucose Patient ABO/Rh Antibody Screen Crossmatch 11/17/22 12:10 WBC RBC Hgb 12.5 L D Hct 38.1 L MCV MCH MCHC RDW Plt Count MPV Immature Gran % Neutrophils % Lymphocytes % Monocytes % Eosinophils % Basophils % Nucleated RBC % Absolute Neutrophils Absolute Lymphocytes Absolute Monocytes Absolute Eosinophils Absolute Basophils RBC Morphology PT INR APTT ABG Sample Site ABG pH ABG pCO2 ABG pO2 ABG HCO3 ABG Total CO2 ABG O2 Saturation ABG Base Excess VBG Lactate Oxygen Liter Flow Sodium Potassium Chloride Carbon Dioxide Anion Gap BUN Creatinine Est GFR (CKD-EPI 2020) Glucose Calcium Phosphorus Magnesium Total Bilirubin AST ALT Alkaline Phosphatase Total Protein Albumin Urine Color Urine Clarity Urine pH Ur Specific [place] Urine Protein Urine Ketones Urine Blood Urine Nitrite Urine Bilirubin Urine Urobilinogen Ur Leukocyte Esterase Urine RBC Urine WBC Ur Epithelial Cells Urine Crystals Urine Bacteria Urine Casts Urine Mucus Ur Culture Indicated? Urine Glucose Patient ABO/Rh Antibody Screen Crossmatch Time Spent with Patient Time Spent with Patient: >50 minutes Time was spent: preparing to see the patient(eg.review tests), ordering medications,tests, procedures, referring, communicating with other health healthcare translator, indepentently interpreting results, counseling the patient and care coordination
--- NOTE | 2022-11-17 13:59 | W.PM.OP ---
Date of service: 11/17/22 Time of Service: 08:00 Operative Note Operative Note Procedure Description: Left subclavian central line attempt - technically difficult but L IJ during assessment with completely collapse IJ despite Tburg and TD jaw movements would make IJ attempt more risky. Prefer left side given potential need for dialysis line in future. Patient was draped in typical sterile fashion after both him and his mother were consented for procedure verbally. During procedure I did note air aspiration and so I ultrasounded him immediately. There was no clear ultrasound evidence of PNX. I did think there could be a small apical PNX present, however not noted on radiology read of CXR. Procedure aborted given this and recommended for surgery to attempt given my time constraints (pulmonary clinic starting).
--- NOTE | 2022-11-17 15:05 | PHA.ACLINAW ---
Renal Dosing Renal Dosing: BUN 65 mg/dL (7-18) H 11/17/22 06:05 Creatinine 4.1 mg/dL (0.70-1.30) H* D 11/17/22 06:05 Medications needing adjustments: Intervened List of meds needing interventions: zosyn dose further renally adjusted, lmwh stopped Anticoagulation Anticoagulation: Hgb 12.5 g/dL (13.5-17.5) L D 11/17/22 12:10 Hct 38.1 % (40.0-50.0) L 11/17/22 12:10 Plt Count 328 10^3/uL (130-400) 11/17/22 06:05 INR 1.4 (0.9-1.1) H 11/17/22 10:12 Creatinine 4.1 mg/dL (0.70-1.30) H* D 11/17/22 06:05 Therapeutic Anticoagulation: Intervened Medications: Enoxaparin (LMWH placed on hold due to a significant drop in patient's H/H; apixiban was changed due LMWH yesterday due to FREDDY; consulted about KCENTRA dose -- recommended a flat dose of 2000 units given recent DOAC use and worsening kidney fxn that likely delayed clearance of the doac) Relevant Labs Electrolytes, C-Reactive P, ESR: Reviewed DM Control DM Control: Glucose 191 mg/dL (74-106) H 11/17/22 06:05 Hemoglobin A1c 5.4 % (<5.7) 11/06/22 05:55 Cardiac Review Cardiac Review: Troponin I < 50 ng/L (<or=60) 11/05/22 11:22 NT-Pro-B Natriuret Pep 126 pg/mL (<300) 11/05/22 09:35 SOAP Objective: H/H 5.3/16.3, SCr 4.1, eCrCl 13 ml/min, became hypotensive overnight Plan: lmwh stopped, KCENTRA + 2 units of blood given, norepi started for BP support, empiric coverage wtih zosyn continues (day 10)
--- NOTE | 2022-11-17 15:12 | W.NUTRFU ---
Date of service: 11/17/22 Time of Service: 15:13 Nutrition Note NOTE: Iggy remains NPO with multiple medical issues. TPN discontinued early in week secondary to fluid overload. Estimated energy needs are 1680 kcal/day (30 kcal/kg/day), ? 56 to 67 g/day (1.0-1.2 g/kg/day), 1680 ml/day (30 ml/kg/day). If enteral feeding initiated, recommend:? Jevity 1.5 @ 46 cc/hour, flush 200 ml q 6 hour provides total of 1650 kcal, 67.5 g protein, 1610 ml free water. ? If TPN is initiated, recommend:? 2.0 L of D10 aa 4.25% with 250 ml of 20% of lipids daily. ? This formula provides 1520 kcal and 85 grams of protein. Will continue to follow. Time Spent in Nutritional Counseling and Treatment: 10
[2022-11-17] MEDS: DEXTROSE 5%-LACTATED RINGERS 1,000 ML 125 ML IV ×2 (15:30→23:03)
--- NOTE | 2022-11-17 16:04 | W.PM.PROGNOT ---
Date of Service Date of service: 11/17/22 Time of Service: 16:04 Assessment and Plan Assessment and plan (1) Parkinsonism: Status: Chronic (2) Tardive dyskinesia: Status: Chronic (3) Confabulation: Status: Chronic (4) Memory loss: Status: Acute (5) Alcohol abuse, in remission: Status: Acute (6) Delirium: Status: Acute (7) Pharyngoesophageal dysphagia: Status: Acute Assessment and plan: Mr. Urias is a complicated patient with preceding memory issues from a combination of baseline cognitive deficits, ETOH abuse/Wernicke, and mood/personality disorder; along with known dysphagia secondary to a combination of tardive dyskinesia >>> neuroleptic-induced Parkinsonism - worse acutely in the setting of bilateral pneumonia and sepsis and now with acute renal failure and hypovolemic shock secondary to retroperitoneal hemorrhage. s/p 4U PRBCs. #Inability to follow commands, secondary to encephalopathy/delirium. This has improved, likely due to increased cerebral perfusion. -continue high dose thiamine #Dysphagia. Due to TD >>> PDism, and further complicated by encephalopathy/delirium. It seems all 3 factors are playing a role. -Continue Sinemet 25/100mg TID 1 hour prior to meals -Re-start tetrabenazine 50mg BID for his TD movements once able. -Given improvement in cognitive status, it may be worth re-trialing swallow study once he is more stable. #Neuroleptic-induced PDism. See above. #Tardive dyskinesia. See above. I will be back on service next week and will see him further prn. Please call with any further questions/concerns. He will need neurology f/up after discharge. Subjective Subjective Interval history since last seen: Mr. Urias was hypotensive again overnight despite volume resuscitation yesterday with worsening renal function, found to be significantly anemic today. Secondary to retroperitoneal hemorrhage. Otherwise, his mental status has improved. TD better during my visit this afternoon despite not getting tetrabenazine any longer - can't be given down his Dobhoff. Continues on Sinemet. Exam Narrative Exam Narrative: Physical Exam: Constitutional: Patient of apparent stated age, thin; no TD movements seen while I was in the room Neuro: MS/Language/Speech: awake and alert; able to follow simple commands; moderate-severe dysarthria CN: R pupil slightly larger than L both symmetrically reactive - related to nebs? Motor: Left hand claw deformity and atrophy - chronic. Less movement in the RLE - not able to lift off the bed. Coordination: no ataxia Gait: not tested Objective Last Vital Signs Temp 99.0 F 11/17/22 14:02 Pulse 96 H 11/17/22 14:02 Resp 27 H 11/17/22 15:35 BP 159/85 H 11/17/22 12:05 Pulse Ox 93 11/17/22 15:35 Laboratory Results - last 24 hr 11/17/22 11/17/22 11/17/22 06:05 06:05 09:33 WBC 27.35 H* RBC 2.17 L Hgb 6.3 L* D Hct 19.6 L* MCV 90 MCH 29.0 MCHC 32.1 RDW 12.8 Plt Count 328 MPV 11.7 H Immature Gran % 2.9 Neutrophils % 79.3 Lymphocytes % 8.2 Monocytes % 9.5 Eosinophils % 0.0 Basophils % 0.1 Nucleated RBC % 0.0 Absolute Neutrophils 21.69 H Absolute Lymphocytes 2.24 Absolute Monocytes 2.60 H Absolute Eosinophils 0.00 Absolute Basophils 0.03 RBC Morphology Normal PT INR APTT ABG Sample Site ABG pH ABG pCO2 ABG pO2 ABG HCO3 ABG Total CO2 ABG O2 Saturation ABG Base Excess VBG Lactate Oxygen Liter Flow Sodium 142 Potassium 5.4 H Chloride 110 H Carbon Dioxide 22.4 Anion Gap 9.6 BUN 65 H Creatinine 4.1 H* D Est GFR (CKD-EPI 2020) 15.08 Glucose 191 H Calcium 7.8 L Phosphorus Magnesium Total Bilirubin 0.6 AST 60 H ALT 20 Alkaline Phosphatase 102 Total Protein 5.4 L Albumin 1.7 L Patient ABO/Rh A Positive Antibody Screen NEGATIVE Crossmatch See Detail 11/17/22 11/17/22 11/17/22 09:33 10:12 10:12 WBC RBC Hgb 5.3 L* Hct 16.3 L* MCV MCH MCHC RDW Plt Count MPV Immature Gran % Neutrophils % Lymphocytes % Monocytes % Eosinophils % Basophils % Nucleated RBC % Absolute Neutrophils Absolute Lymphocytes Absolute Monocytes Absolute Eosinophils Absolute Basophils RBC Morphology PT INR APTT ABG Sample Site ABG pH ABG pCO2 ABG pO2 ABG HCO3 ABG Total CO2 ABG O2 Saturation ABG Base Excess VBG Lactate 3.7 H* Oxygen Liter Flow Sodium Potassium Chloride Carbon Dioxide Anion Gap BUN Creatinine Est GFR (CKD-EPI 2020) Glucose Calcium Phosphorus 4.0 Magnesium 2.1 Total Bilirubin AST ALT Alkaline Phosphatase Total Protein Albumin Patient ABO/Rh Antibody Screen Crossmatch 11/17/22 11/17/22 11/17/22 10:12 10:25 12:10 WBC RBC Hgb 12.5 L D Hct 38.1 L MCV MCH MCHC RDW Plt Count MPV Immature Gran % Neutrophils % Lymphocytes % Monocytes % Eosinophils % Basophils % Nucleated RBC % Absolute Neutrophils Absolute Lymphocytes Absolute Monocytes Absolute Eosinophils Absolute Basophils RBC Morphology PT 13.9 H INR 1.4 H APTT 31.7 ABG Sample Site Arterial Line ABG pH 7.44 ABG pCO2 28 L ABG pO2 69 L ABG HCO3 19 L ABG Total CO2 19 L ABG O2 Saturation 96 ABG Base Excess -5 L VBG Lactate Oxygen Liter Flow 4 Sodium Potassium Chloride Carbon Dioxide Anion Gap BUN Creatinine Est GFR (CKD-EPI 2020) Glucose Calcium Phosphorus Magnesium Total Bilirubin AST ALT Alkaline Phosphatase Total Protein Albumin Patient ABO/Rh Antibody Screen Crossmatch Time Spent with Patient Time Spent with Patient: 25-34 minutes Time was spent: preparing to see the patient(eg.review tests), referring, communicating with other health hiv/aids care nurse and care coordination
[2022-11-17 18:27] LABS: HCT 36.9 % (40.0-50.0); HGB 12.4 g/dL (13.5-17.5)
[2022-11-17 18:41] LABS: BUN 65 mg/dL (7-18); Calcium 7.9 mg/dL (8.5-10.1); Glucose 146 mg/dL (74-106)
[2022-11-17 18:42] LABS: Anion Gap 12.1 mmol/L (3-11); CO2 20.9 mmol/L (21.0-32.0); Chloride 113 mmol/L (98-107); Estimated GFR 15.53 (mL/min/1.73m2); Potassium 5.3 mmol/L (3.5-5.1); Sodium 146 mmol/L (136-145)
[2022-11-17] MEDS: Pantoprazole 40 MG VIAL IVP (21:10)
[2022-11-17] MEDS: Albuterol/Ipratropium 3 ML UPD VIAL UPD (21:11)
[2022-11-17] MEDS: Budesonide/Formoterol 160/4.5 6 GM 60 PUFF INH IH (21:14)
[2022-11-17] MEDS: Mirtazapine 15 MG TAB 45 MG PO (22:08)
[2022-11-17] MEDS: LORazepam 2 MG/ML VIAL 0.5 MG IVP (22:41)
[2022-11-18] VITALS (109 sets, daily range): BP systolic 142–160; BP diastolic 65–80; PULSE 62–103; RESP 5–35; TEMP 36.5–37.4; O2SAT 71–98
--- NOTE | 2022-11-18 | DI.RAD_ITS ---
Exam(s) XR PORTABLE CHEST AP EXAM: XR PORTABLE CHEST AP CLINICAL HISTORY: ptx. TECHNIQUE: 2D digital imaging was performed. COMPARISON: CR,XR XR PORTABLE CHEST AP from 11/18/2022 FINDINGS: Single AP portable view. The thin left replace with a larger caliber chest tube and left lung is re-expanded at this time. There is still persistent infiltrate in the left lung, most prominent in the left lower lobe. Some i nfiltrate still remaining in the right lung. Small pleural effusion on the right side again noted. Distal tip of the Dobbhoff catheter is in the distal stomach-antral level. Left subclavian and right PICC lines again noted. IMPRESSION: Left lung re-expansion since placement of the new larger caliber left chest tube.Persistent bilateral lung infiltrates. DATA REPOSITORY: RADIATION DOSE DELIVERED:
[2022-11-18] MEDS: ACETAMINOPHEN 1,000 MG/100 ML BTL 400 MG IVPB ×2 (03:36→21:17)
[2022-11-18] MEDS: Normal Saline Flush 10 ML SYR IVP ×4 (03:37→21:13)
[2022-11-18 05:36] LABS: Lactate 1.3 mmol/L (0.6-1.4)
[2022-11-18 05:41] LABS: Abs Immature Grans 0.19 10^3/uL (0.0-0.06); Absolute Lymphocyte Count 0.96 10^3/uL (1.2-3.4); Absolute Monocyte Count 1.87 10^3/uL (0.1-0.8); Basophils % 0.1; HGB 11.2 g/dL (13.5-17.5); Lymphocytes % 5.2; MCH 30.4 pg (27.0-33.0); MCHC 33.9 % (32.0-36.0); MCV 89 fL (80-95); MPV 10.7 fL (8.0-11.0); Monocytes % 10.1; Neutrophils % 83.6; Nucleated RBC 0.2 % (0.0-0.3); Platelet Count 189 10^3/uL (130-400); RBC 3.69 10^6/uL (4.36-5.78); RDW 14.2 % (11.8-14.1); RDW-SD 45.5 fL; WBC 18.53 10^3/uL (4.4-10.8)
[2022-11-18 05:47] LABS: Absolute Basophil Count 0.02 10^3/uL (0.0-0.2); Absolute Neutrophil Count 15.49 10^3/uL (1.2-6.7)
[2022-11-18 05:56] LABS: ALT 18 U/L (16-63); AST 67 U/L (15-37); Albumin 1.8 g/dL (3.4-5.0); Alkaline Phosphatase 120 U/L (46-116); BUN 59 mg/dL (7-18); Bilirubin, Total 0.9 mg/dL (0.2-1.0); CREATININE 2.9 mg/dL (0.70-1.30); Calcium 7.9 mg/dL (8.5-10.1); Chloride 114 mmol/L (98-107); Estimated GFR 22.85 (mL/min/1.73m2); Glucose 146 mg/dL (74-106); Magnesium 2.3 mg/dL (1.8-2.4); PHOSPHORUS 4.1 mg/dL (2.6-4.7); Potassium 4.2 mmol/L (3.5-5.1); Sodium 148 mmol/L (136-145); Total Protein 5.2 g/dL (6.4-8.2)
[2022-11-18] MEDS: Metoprolol 5 MG/5 ML VIAL IVP (06:15)
[2022-11-18 06:28] LABS: Anisocytosis 2+; Diff Comment Agrees w/ Instrument; Polychromasia Present
[2022-11-18] MEDS: DEXTROSE 5%-LACTATED RINGERS 1,000 ML 125 ML IV (06:44)
--- NOTE | 2022-11-18 07:00 | PUCC_ITS ---
General Date of Service Date of service: 11/18/22 Time of Service: 07:01 Reason for Admission to ICU: Aspiration Respiratory failure Hypotension Assessment and Plan Assessment and plan (1) Intraabdominal hemorrhage: Status: Acute (2) Hemorrhagic shock: Status: Acute (3) History of lung cancer: Status: Acute (4) Acute respiratory failure with hypoxia: Status: Acute (5) Acute lactic acidosis: Status: Resolved (6) Leukocytosis: Status: Acute (7) Anemia: Status: Chronic (8) Hx pulmonary embolism: Status: Chronic (9) Hyperkalemia: Status: Acute (10) Acute renal failure: Status: Acute (11) Hyperglycemia: Status: Resolved (12) Hypoalbuminemia: Status: Acute (13) Parkinsonism: Status: Chronic (14) Tardive dyskinesia: Status: Chronic (15) Asthma-COPD overlap syndrome: Status: Resolved (16) GERD (gastroesophageal reflux disease): Status: Chronic (17) Confabulation: Status: Chronic (18) Memory loss: Status: Acute Assessment and plan: This is a 67 yo admitted to the ICU for septic shock in the setting of aspiration pneumonia. ON 11/17/22 he had an acute decompensation including severe hypotension and was found to have a intra-abdominal hemorrhage resulting in hemorrhagic shock. He was rescusitated with blood, given Kcentra and his Hb and blood pressure has improved. He does not appear to be bleeding actively at the moment. His pneumothorax was worse this morning on CXR, but this is likely due to a heimlich being placed in line with the tubing. The tube was on waterseal as well. I recommend removing the heimlich and putting the tube to suction for a few hours with another waterseal trial later this afternoon. He is stable to have tube feeds so have ordered nepro or novasource trickle feeds with free water and instructions for uptitration. Recommendations Pulmonary: Hypoxic respiratory failure - supplemental O2 for sats 88-92% - IS and VibraPEP ACOS - continue Symbicort and Spiriva Aspiration - has Dubhoff - aspiration precautions - on Protonix - on Zosyn Pneumothorax - s/p pigtail - PNX larger today on CXR - recommend removal of heimlich valve within tubing and place on wall suction at [id number] - recommend repeat CXR later today and waterseal retrial if PNX is resolved Cardiac: Hemorrhagic Shock, resolved - s/p 4 UPRBC - s/p Levophed Renal: Acute renal failure, improving - recommend bid BMP, Mg, Phos - if phos is >6 start sevelemer - strict I/O's Hypocalcemia - will monitor Hyperkalemia, resolved - continue to monitor Hypoalbuminemia - will monitor I&O: Intake & Output 11/15/22 11/16/22 11/17/22 11/18/22 23:59 23:59 23:59 23:59 Intake Total 480 / 480 5262.500 / 5262.500 7049.751 / 7049.751 1560.417 / 1560.417 Output Total 2225 / 2475 500 / 500 305 / 305 425 / 425 Balance -1744 / 4762.500 / 4762.500 6744.751 / 6744.751 1135.417 / 1135.417 Weight 51.4 kg 51.8 kg 56.9 kg 58.6 kg Daily Fluid Goal:: Even GI Nutrition: Aspiration - as above - NPO Nutrition - start Nepro or Novasource tube feeds - nutrition consult Date of Last Bowel Movement: 11/17/22 Infectious Disease: Aspitation Pneumonia - on Zosyn Hematologic: Leukocytosis - due to aspiration pnuemonia Neurologic: Parkinsons/[place]/TD - neurology on board - restart tetrabenazine if able to put through NGT Endocrine: No acute concerns Lines: L radial arterial line R PICC Pena Dubhoff Left subclavian CVC Left pigtail chest tube Prophylaxis: Lovenox on hold given acute bleed on Protonix Code Status: Resuscitation Status Full Code Subjective Critical and life-threatening events over the past 24 hours: Iggy is much improved today as compared to yesterday. His renal function and blood pressure have improved and his Hb is stable. He is more alert and denies pain. Exam Narrative Exam Narrative: Gen: NAD, normal respiratory effort, thin HENT: PERRL, No JVD Chest: No respiratory distress, normal appearance of chest, crackles at bases. Chest tube in place and to waterseal. There are is no air leak. There is a heimlich valve within the tubing with serosanguinos material stuck within the valve. Heart: regular rate and rhythym, no murmurs, rubs or gallops Abdomen: Non-distended, soft, non tender Extremities: No clubbing, edema, cyanosis, rashes Neuro: non focal Psych: cooperative, appropriate mental affect Most Recent VS/Results Last Vital Signs Temp 36.8 C 11/18/22 04:40 Pulse 75 11/18/22 06:15 Resp 21 11/18/22 06:00 BP 160/80 H 11/18/22 06:15 Pulse Ox 95 11/18/22 06:57 Laboratory Results - last 24 hr 11/17/22 11/17/22 11/17/22 06:05 06:05 09:33 WBC 27.35 H* RBC 2.17 L Hgb 6.3 L* D Hct 19.6 L* MCV 90 MCH 29.0 MCHC 32.1 RDW 12.8 Plt Count 328 MPV 11.7 H Immature Gran % 2.9 Neutrophils % 79.3 Lymphocytes % 8.2 Monocytes % 9.5 Eosinophils % 0.0 Basophils % 0.1 Nucleated RBC % 0.0 Absolute Neutrophils 21.69 H Absolute Lymphocytes 2.24 Absolute Monocytes 2.60 H Absolute Eosinophils 0.00 Absolute Basophils 0.03 RBC Morphology Normal Polychromasia Anisocytosis PT INR APTT ABG Sample Site ABG pH ABG pCO2 ABG pO2 ABG HCO3 ABG Total CO2 ABG O2 Saturation ABG Base Excess VBG Lactate Oxygen Liter Flow Sodium 142 Potassium 5.4 H Chloride 110 H Carbon Dioxide 22.4 Anion Gap 9.6 BUN 65 H Creatinine 4.1 H* D Est GFR (CKD-EPI 2020) 15.08 Glucose 191 H Calcium 7.8 L Phosphorus Magnesium Total Bilirubin 0.6 AST 60 H ALT 20 Alkaline Phosphatase 102 Total Protein 5.4 L Albumin 1.7 L Patient ABO/Rh A Positive Antibody Screen NEGATIVE Crossmatch See Detail 11/17/22 11/17/22 11/17/22 09:33 10:12 10:12 WBC RBC Hgb 5.3 L* Hct 16.3 L* MCV MCH MCHC RDW Plt Count MPV Immature Gran % Neutrophils % Lymphocytes % Monocytes % Eosinophils % Basophils % Nucleated RBC % Absolute Neutrophils Absolute Lymphocytes Absolute Monocytes Absolute Eosinophils Absolute Basophils RBC Morphology Polychromasia Anisocytosis PT INR APTT ABG Sample Site ABG pH ABG pCO2 ABG pO2 ABG HCO3 ABG Total CO2 ABG O2 Saturation ABG Base Excess VBG Lactate 3.7 H* Oxygen Liter Flow Sodium Potassium Chloride Carbon Dioxide Anion Gap BUN Creatinine Est GFR (CKD-EPI 2020) Glucose Calcium Phosphorus 4.0 Magnesium 2.1 Total Bilirubin AST ALT Alkaline Phosphatase Total Protein Albumin Patient ABO/Rh Antibody Screen Crossmatch 11/17/22 11/17/22 11/17/22 10:12 10:25 12:10 WBC RBC Hgb 12.5 L D Hct 38.1 L MCV MCH MCHC RDW Plt Count MPV Immature Gran % Neutrophils % Lymphocytes % Monocytes % Eosinophils % Basophils % Nucleated RBC % Absolute Neutrophils Absolute Lymphocytes Absolute Monocytes Absolute Eosinophils Absolute Basophils RBC Morphology Polychromasia Anisocytosis PT 13.9 H INR 1.4 H APTT 31.7 ABG Sample Site Arterial Line ABG pH 7.44 ABG pCO2 28 L ABG pO2 69 L ABG HCO3 19 L ABG Total CO2 19 L ABG O2 Saturation 96 ABG Base Excess -5 L VBG Lactate Oxygen Liter Flow 4 Sodium Potassium Chloride Carbon Dioxide Anion Gap BUN Creatinine Est GFR (CKD-EPI 2020) Glucose Calcium Phosphorus Magnesium Total Bilirubin AST ALT Alkaline Phosphatase Total Protein Albumin Patient ABO/Rh Antibody Screen Crossmatch 11/17/22 11/17/22 11/17/22 18:15 18:15 20:00 WBC RBC Hgb 12.4 L Hct 36.9 L MCV MCH MCHC RDW Plt Count MPV Immature Gran % Neutrophils % Lymphocytes % Monocytes % Eosinophils % Basophils % Nucleated RBC % Absolute Neutrophils Absolute Lymphocytes Absolute Monocytes Absolute Eosinophils Absolute Basophils RBC Morphology Polychromasia Anisocytosis PT INR APTT ABG Sample Site ABG pH ABG pCO2 ABG pO2 ABG HCO3 ABG Total CO2 ABG O2 Saturation ABG Base Excess VBG Lactate Oxygen Liter Flow Sodium 146 H Cancelled Potassium 5.3 H Cancelled Chloride 113 H Cancelled Carbon Dioxide 20.9 L Cancelled Anion Gap 12.1 H Cancelled BUN 65 H Cancelled Creatinine 4.0 H* Cancelled Est GFR (CKD-EPI 2020) 15.53 Cancelled Glucose 146 H Cancelled Calcium 7.9 L Cancelled Phosphorus Cancelled Magnesium Cancelled Total Bilirubin AST ALT Alkaline Phosphatase Total Protein Albumin Patient ABO/Rh Antibody Screen Crossmatch 11/17/22 11/18/22 11/18/22 20:00 05:30 05:30 WBC Cancelled RBC Cancelled Hgb Cancelled Hct Cancelled MCV Cancelled MCH Cancelled MCHC Cancelled RDW Cancelled Plt Count Cancelled MPV Cancelled Immature Gran % Neutrophils % Lymphocytes % Monocytes % Eosinophils % Basophils % Nucleated RBC % Absolute Neutrophils Absolute Lymphocytes Absolute Monocytes Absolute Eosinophils Absolute Basophils RBC Morphology Polychromasia Anisocytosis PT INR APTT ABG Sample Site ABG pH ABG pCO2 ABG pO2 ABG HCO3 ABG Total CO2 ABG O2 Saturation ABG Base Excess VBG Lactate 1.3 Oxygen Liter Flow Sodium Potassium Chloride Carbon Dioxide Anion Gap BUN Creatinine Est GFR (CKD-EPI 2020) Glucose Calcium Phosphorus 4.1 Magnesium 2.3 Total Bilirubin AST ALT Alkaline Phosphatase Total Protein Albumin Patient ABO/Rh Antibody Screen Crossmatch 11/18/22 11/18/22 11/18/22 05:30 05:30 08:30 WBC 18.53 H RBC 3.69 L Hgb 11.2 L Hct 33.0 L MCV 89 MCH 30.4 MCHC 33.9 RDW 14.2 H Plt Count 189 MPV 10.7 Immature Gran % 1.0 Neutrophils % 83.6 Lymphocytes % 5.2 Monocytes % 10.1 Eosinophils % 0.0 Basophils % 0.1 Nucleated RBC % 0.2 Absolute Neutrophils 15.49 H Absolute Lymphocytes 0.96 L Absolute Monocytes 1.87 H Absolute Eosinophils 0.00 Absolute Basophils 0.02 RBC Morphology See Below Polychromasia Present Anisocytosis 2+ PT INR APTT ABG Sample Site ABG pH ABG pCO2 ABG pO2 ABG HCO3 ABG Total CO2 ABG O2 Saturation ABG Base Excess VBG Lactate Oxygen Liter Flow Sodium 148 H Cancelled Potassium 4.2 D Cancelled Chloride 114 H Cancelled Carbon Dioxide 23.0 Cancelled Anion Gap 11.0 Cancelled BUN 59 H Cancelled Creatinine 2.9 H D Cancelled Est GFR (CKD-EPI 2020) 22.85 Cancelled Glucose 146 H Cancelled Calcium 7.9 L Cancelled Phosphorus Magnesium Total Bilirubin 0.9 AST 67 H ALT 18 Alkaline Phosphatase 120 H Total Protein 5.2 L Albumin 1.8 L Patient ABO/Rh Antibody Screen Crossmatch Review of Systems All systems reviewed & are unremarkable except as noted in HPI and below Time spent with patient Time spent in Critical Care: 45 Time spent in Critical care included: Chart review, Documenting critically ill care, Time at immediate bedside and Discussing critically ill care with other medical staff Multi-Disciplinary Checklist Lines/Tubes CENTRAL LINE: yes, Central Line Day#: 1 Note: Left subclavian PICC day 2 ARTERIAL LINE: yes, Arterial Line Day#: 1 PENA: yes, Pena Day#: 13 ENDOTRACHEAL TUBE: no ICU Maintenance GLUCOSE 140-180mg/dL: yes NUTRITION AT GOAL: no, Reason/Intervention: start trickle feeds today PRESSURE ULCER: no RESTRAINTS: no ANTIBIOTICS(if yes, consider Stewardship): Yes Social Issues FAMILY UPDATED: no, Reason/Intervention: defer to hospitalist team PT/OT: no, Reason/Intervention: not appropriate today GOALS/DISPOSITION/SENIOR NETWORK SYSTEMS ENGINEER: yes CODE STATUS: Full Prophylaxis DVT PROPHYLAXIS: no Reason/Intervention: on hold given potential bleed, SCD's ordered GI PROPHYLAXIS: yes, Indication: home med
[2022-11-18] MEDS: Albuterol/Ipratropium 3 ML UPD VIAL UPD ×4 (08:16→20:41)
[2022-11-18] MEDS: Budesonide/Formoterol 160/4.5 6 GM 60 PUFF INH IH (08:21)
[2022-11-18] MEDS: FLUoxetine 10 MG TAB 20 MG NG (08:58)
--- NOTE | 2022-11-18 09:15 | DI.RAD_ITS ---
Exam(s) XR PORTABLE CHEST AP EXAM: XR PORTABLE CHEST AP CLINICAL HISTORY: hypoxia, pneumonia. TECHNIQUE: 2D digital imaging was performed. COMPARISON: CR XR PORTABLE CHEST AP from 11/17/2022 FINDINGS: Single AP portable view. The left thin caliber chest tube is somewhat retracted. The pneumothorax has significantly increased . The previously Ree expanded left lung now exhibits approximately 40-50 percent pneumothorax. Infi ltrates in both lungs again noted. Largest area of infiltrate is again noted to be in the right lowe r lobe. There is no pneumothorax on the right side. Central and PICC lines remain in good position as does the Dobbhoff catheter. Heart size is upper normal. The mediastinum is not widened. IMPRESSION: Recurrence of left pneumothorax. This is now approximately 40-50 percent.Also persistent bilateral i nfiltrates, most prominent in the right lower lobe. Report called by myself to the hospitalist 11/18/2022 10:05 a.m.. DATA REPOSITORY: RADIATION DOSE DELIVERED:
--- NOTE | 2022-11-18 09:17 | W.PM.PROGNOT ---
Date of Service Date of service: 11/18/22 Time of Service: 09:17 Assessment and Plan Assessment and plan (1) Hemorrhagic shock: Status: Acute Assessment and plan: hemorrhagic shock d/t retroperitoneal bleed into right iliopsoas muscle; anemia has been corrected and BP stable now off vasopressors. continue GI protection but no evidence for GI bleeding. avoid anticoagulants. Critical care time spent interviewing and examining the patient, reviewing studies, discussing case with patient's nurse and consulting physicians was 30 minutes (2) Hypovolemic shock: Status: Resolved Assessment and plan: shock state has resolved, off NE since yesterday; iv fluids stopped, BP stable. He was given one time dose of lopressor last night for elevated BP in the 160 to 170 systolic; I would not advise this given that he had shock state yesterday. His FREDDY is improving w/ increased urine output and declining BUN and creatinine (now 59 and 2.9), urine output at 50 mL/hr). At this point I do not feel he needs further blood products nor iv fluids. In fact I think he may be a little hypervolemic. I did performe limited POCUS exam of his xiphoid window of his heart and IVC and hepatic vein. His IVC is not plethoric but definitely increased from yesterday, IVC was 1.4 to 1.5 cm but it no longer had greater than 50% inspiratory collapsability (atlhough I had trouble getting him to take a deep breath), I would say his estm RAP is around 8 cm, also his hepatic vein flow pattern is still primarily systolic predominance, so I do not think he is overly congested. However he now has a pleural effusion on the right w/ some atelectatic lung. I will give him one time dose of lasix. We will restart his tube feedings (checking w/ dietary what they have for renal failure patients) (3) Retroperitoneal bleeding: Status: Acute (4) Anemia: Status: Chronic Assessment and plan: stable, keep on PPI, avoid anticoagulants. Use SCD for DVT prophylaxis (5) FREDDY (acute kidney injury): Status: Resolved Assessment and plan: improving, continue to monitor (6) Aspiration pneumonitis: Status: Acute Assessment and plan: patient is back on Zosyn, continue aerosolized bronchodilators, pulmonary toiletry, no oral feedings; will resume his tube feedings (7) Acute respiratory failure with hypoxia: Status: Acute Assessment and plan: patient sustained PTX on the left secondary to CVC line placement yesterday; he has pleural catheter in place but it does not seem to be functioning; his pleural catheter was connected to Heimlich valve in between the pleural catheter and the suction tubing for the Thoraklex; I did milk the tube and it seemed to function better however I reached out to Dr. Glass, Dr. Cristhian Stephens and to Dr. De La Rosa. Dr. lGass presented to the ICU and removed the Heimlich (8) Sepsis: Status: Resolved Assessment and plan: patient originally presented in sepsis and completed his original treatment for his aspiration pneumonia, however his more recent shock state was d/t acute hemorrhagic shock from retroperitoneal bleed (9) Hypoglycemia: Status: Resolved Assessment and plan: resolved w/ iv D5LR; Dr. De La Rosa discontinued fluids this morning. We are going to resume his feedings via his Dobhoff tube (10) Asthma-COPD overlap syndrome: Status: Resolved Assessment and plan: treat w/ bronchodilators and antibiotics as noted above. I have not added steroids yet. He is not having an exacerbation of his COPD (11) Parkinsonism: Status: Chronic Assessment and plan: d/t neuroleptic medications. followed by Dr. Valladares; sinemet was restarted but his dysphagia has not improved. continue his Sinemet via his Dobhoff tube (12) Tardive dyskinesia: Status: Chronic Assessment and plan: continue tetrabenazine as per neurologist's recommendation; we may not be able to give through his Dobhoff tube (13) Hx pulmonary embolism: Status: Chronic Assessment and plan: no PE on recent CTA chest. all anticoagulation is off now d/t retroperitoneal bleeding (14) DVT prophylaxis: Status: Acute Assessment and plan: enoxaparin dc d/t severe blood loss anemia; use SCD (15) Discharge planning issues: Status: Acute Assessment and plan: Anticipate, Iggy will return home with [facility] PT/OT services and resumption of community supports, once medically cleared. Patient remains full code per his and his family's wishes. Subjective Subjective Interval history since last seen: Patient has remained off the norepinephrine drip since yesterday afternoon after being transfused 4 units of PRBC and given kcentra to treat his acute blood loss hemorrhagic shock d/t his retroperitoneal bleeding. His Hb has remained reasonably stable at 11.2 gm. Patient is more alert and cooperative, following commands. HARNESS RIGGER is here to perform bedside evaluation of his swallowing, although I am of the opinion that he will still need a PEG tube. Renal function is recovering from his shock yesterday. Exam Narrative Exam Narrative: Iggy is alert, responds to commands and able to voice his wants. He is having more of his TD behavior this morning w/ lip smacking His oxygen requirements have increased, he is now on 4 lpm, his SPO2 did improve after RT had him use his VibraPep and did some cough and deep breathing and then suctioned him for some mucous, however, I think that he may be a bit hypervolemic from the iv fluids and blood transfusions given yesterday Lungs: coarse rhonchi bilaterally the improved after RT worked w/ him, both left and right lung bases are diminished Chest tube: no air leak seen w/ C&DB Abdomen: normal bowel sounds, nontender, no longer firm/rigid like yesterday, now soft; he denies any abdominal pain Extremities: normal pulses, no cyanosis, no edema Neuro: moves all 4's to commands, he has the lip smacking TD movements Objective Last Vital Signs Temp 36.8 C 11/18/22 04:40 Pulse 80 11/18/22 08:30 Resp 24 11/18/22 08:30 BP 152/73 H 11/18/22 06:45 Pulse Ox 92 11/18/22 08:30 Laboratory Results - last 24 hr 11/17/22 11/17/22 11/17/22 06:05 09:33 09:33 WBC 27.35 H* RBC 2.17 L Hgb 6.3 L* D 5.3 L* Hct 19.6 L* 16.3 L* MCV 90 MCH 29.0 MCHC 32.1 RDW 12.8 Plt Count 328 MPV 11.7 H Immature Gran % 2.9 Neutrophils % 79.3 Lymphocytes % 8.2 Monocytes % 9.5 Eosinophils % 0.0 Basophils % 0.1 Nucleated RBC % 0.0 Absolute Neutrophils 21.69 H Absolute Lymphocytes 2.24 Absolute Monocytes 2.60 H Absolute Eosinophils 0.00 Absolute Basophils 0.03 RBC Morphology Normal Polychromasia Anisocytosis PT INR APTT ABG Sample Site ABG pH ABG pCO2 ABG pO2 ABG HCO3 ABG Total CO2 ABG O2 Saturation ABG Base Excess VBG Lactate Oxygen Liter Flow Sodium Potassium Chloride Carbon Dioxide Anion Gap BUN Creatinine Est GFR (CKD-EPI 2020) Glucose Calcium Phosphorus Magnesium Total Bilirubin AST ALT Alkaline Phosphatase Total Protein Albumin Patient ABO/Rh A Positive Antibody Screen NEGATIVE Crossmatch See Detail 11/17/22 11/17/22 11/17/22 10:12 10:12 10:12 WBC RBC Hgb Hct MCV MCH MCHC RDW Plt Count MPV Immature Gran % Neutrophils % Lymphocytes % Monocytes % Eosinophils % Basophils % Nucleated RBC % Absolute Neutrophils Absolute Lymphocytes Absolute Monocytes Absolute Eosinophils Absolute Basophils RBC Morphology Polychromasia Anisocytosis PT 13.9 H INR 1.4 H APTT 31.7 ABG Sample Site ABG pH ABG pCO2 ABG pO2 ABG HCO3 ABG Total CO2 ABG O2 Saturation ABG Base Excess VBG Lactate 3.7 H* Oxygen Liter Flow Sodium Potassium Chloride Carbon Dioxide Anion Gap BUN Creatinine Est GFR (CKD-EPI 2020) Glucose Calcium Phosphorus 4.0 Magnesium 2.1 Total Bilirubin AST ALT Alkaline Phosphatase Total Protein Albumin Patient ABO/Rh Antibody Screen Crossmatch 11/17/22 11/17/22 11/17/22 10:25 12:10 18:15 WBC RBC Hgb 12.5 L D Hct 38.1 L MCV MCH MCHC RDW Plt Count MPV Immature Gran % Neutrophils % Lymphocytes % Monocytes % Eosinophils % Basophils % Nucleated RBC % Absolute Neutrophils Absolute Lymphocytes Absolute Monocytes Absolute Eosinophils Absolute Basophils RBC Morphology Polychromasia Anisocytosis PT INR APTT ABG Sample Site Arterial Line ABG pH 7.44 ABG pCO2 28 L ABG pO2 69 L ABG HCO3 19 L ABG Total CO2 19 L ABG O2 Saturation 96 ABG Base Excess -5 L VBG Lactate Oxygen Liter Flow 4 Sodium 146 H Potassium 5.3 H Chloride 113 H Carbon Dioxide 20.9 L Anion Gap 12.1 H BUN 65 H Creatinine 4.0 H* Est GFR (CKD-EPI 2020) 15.53 Glucose 146 H Calcium 7.9 L Phosphorus Magnesium Total Bilirubin AST ALT Alkaline Phosphatase Total Protein Albumin Patient ABO/Rh Antibody Screen Crossmatch 11/17/22 11/17/22 11/17/22 18:15 20:00 20:00 WBC Cancelled RBC Cancelled Hgb 12.4 L Cancelled Hct 36.9 L Cancelled MCV Cancelled MCH Cancelled MCHC Cancelled RDW Cancelled Plt Count Cancelled MPV Cancelled Immature Gran % Neutrophils % Lymphocytes % Monocytes % Eosinophils % Basophils % Nucleated RBC % Absolute Neutrophils Absolute Lymphocytes Absolute Monocytes Absolute Eosinophils Absolute Basophils RBC Morphology Polychromasia Anisocytosis PT INR APTT ABG Sample Site ABG pH ABG pCO2 ABG pO2 ABG HCO3 ABG Total CO2 ABG O2 Saturation ABG Base Excess VBG Lactate Oxygen Liter Flow Sodium Cancelled Potassium Cancelled Chloride Cancelled Carbon Dioxide Cancelled Anion Gap Cancelled BUN Cancelled Creatinine Cancelled Est GFR (CKD-EPI 2020) Cancelled Glucose Cancelled Calcium Cancelled Phosphorus Cancelled Magnesium Cancelled Total Bilirubin AST ALT Alkaline Phosphatase Total Protein Albumin Patient ABO/Rh Antibody Screen Crossmatch 11/18/22 11/18/22 11/18/22 05:30 05:30 05:30 WBC RBC Hgb Hct MCV MCH MCHC RDW Plt Count MPV Immature Gran % Neutrophils % Lymphocytes % Monocytes % Eosinophils % Basophils % Nucleated RBC % Absolute Neutrophils Absolute Lymphocytes Absolute Monocytes Absolute Eosinophils Absolute Basophils RBC Morphology Polychromasia Anisocytosis PT INR APTT ABG Sample Site ABG pH ABG pCO2 ABG pO2 ABG HCO3 ABG Total CO2 ABG O2 Saturation ABG Base Excess VBG Lactate 1.3 Oxygen Liter Flow Sodium 148 H Potassium 4.2 D Chloride 114 H Carbon Dioxide 23.0 Anion Gap 11.0 BUN 59 H Creatinine 2.9 H D Est GFR (CKD-EPI 2020) 22.85 Glucose 146 H Calcium 7.9 L Phosphorus 4.1 Magnesium 2.3 Total Bilirubin 0.9 AST 67 H ALT 18 Alkaline Phosphatase 120 H Total Protein 5.2 L Albumin 1.8 L Patient ABO/Rh Antibody Screen Crossmatch 11/18/22 11/18/22 05:30 08:30 WBC 18.53 H RBC 3.69 L Hgb 11.2 L Hct 33.0 L MCV 89 MCH 30.4 MCHC 33.9 RDW 14.2 H Plt Count 189 MPV 10.7 Immature Gran % 1.0 Neutrophils % 83.6 Lymphocytes % 5.2 Monocytes % 10.1 Eosinophils % 0.0 Basophils % 0.1 Nucleated RBC % 0.2 Absolute Neutrophils 15.49 H Absolute Lymphocytes 0.96 L Absolute Monocytes 1.87 H Absolute Eosinophils 0.00 Absolute Basophils 0.02 RBC Morphology See Below Polychromasia Present Anisocytosis 2+ PT INR APTT ABG Sample Site ABG pH ABG pCO2 ABG pO2 ABG HCO3 ABG Total CO2 ABG O2 Saturation ABG Base Excess VBG Lactate Oxygen Liter Flow Sodium Cancelled Potassium Cancelled Chloride Cancelled Carbon Dioxide Cancelled Anion Gap Cancelled BUN Cancelled Creatinine Cancelled Est GFR (CKD-EPI 2020) Cancelled Glucose Cancelled Calcium Cancelled Phosphorus Magnesium Total Bilirubin AST ALT Alkaline Phosphatase Total Protein Albumin Patient ABO/Rh Antibody Screen Crossmatch Time Spent with Patient Time Spent with Patient: 25-34 minutes Time was spent: preparing to see the patient(eg.review tests), ordering medications,tests, procedures, referring, communicating with other health home care music therapist, indepentently interpreting results, counseling the patient and care coordination
--- NOTE | 2022-11-18 09:26 | PDOC.CMPRO ---
Date of service: 11/18/22 Time of Service: 09:27 Care Management Progress Note Progress Note Text Progress Note Text: S/O: Iggy was lying in bed when CM met with him. He is doing much better today. His Hgb is up to 11 today and his creatinine is down to 2.9 from 4.7. Iggy is mentally clearer but is still confused. He still has a pneumothorax which has not improved and, per nursing, another chest tube is being inserted. CM continues to follow. A: Iggy is a 67 year old male admitted to [facility] on 11/05/22 for acute hypoxic respiratory failure. P:? Iggy's discharge plan is not clear at this time. PT originally recommended home health PT however has since indicated that SNF may be more appropriate. At this time Iggy is not willing to consider going to a prison facility. He would prefer to return home with [facility] PT/OT services and resumption of community supports, once medically cleared. His parents are not in support of that plan.? CM will continue to follow and assess for discharge concerns.?
--- NOTE | 2022-11-18 09:41 | PCPN_ITS ---
Date of service: 11/17/22 Time of Service: 14:00 Assessment and Plan Assessment and plan (1) Intraabdominal hemorrhage: Status: Acute (2) Pneumothorax on left: Status: Acute (3) Acute renal failure: Status: Acute Subjective Subjective Interval history since last seen: Preliminary palliative care progress note, full note to follow: Patient with acute change in clinical status with retroperitoneal bleed causing profound anemia and hypotension, pneumothorax, FREDDY. Case reviewed with case management, ICU nursing, Dr. Otero. Talked briefly with patient, who is awake and alert but answers in simple word questions and seem to lack capacity for decisions at that time. I was unable to meet in person with parents. 20-minute discussion with Susan Valadez RN from Case management had talk with parents. At this point they wanted to continue to except all offered treatment. They are aware that prognosis is fair to poor given multisystem organ failure. We discussed prognosis and how to offer additional care to family. No one from palliative care team available Monday to meet for family meeting. Palliative care team will plan to meet with family on Monday if patient is still at [facility]. Objective Last Vital Signs Temp 36.8 C 11/18/22 04:40 Pulse 80 11/18/22 08:30 Resp 24 11/18/22 08:30 BP 152/73 H 11/18/22 06:45 Pulse Ox 92 11/18/22 09:24 Laboratory Results - last 24 hr 11/17/22 11/17/22 11/17/22 09:33 09:33 10:12 WBC RBC Hgb 5.3 L* Hct 16.3 L* MCV MCH MCHC RDW Plt Count MPV Immature Gran % Neutrophils % Lymphocytes % Monocytes % Eosinophils % Basophils % Nucleated RBC % Absolute Neutrophils Absolute Lymphocytes Absolute Monocytes Absolute Eosinophils Absolute Basophils RBC Morphology Polychromasia Anisocytosis PT INR APTT ABG Sample Site ABG pH ABG pCO2 ABG pO2 ABG HCO3 ABG Total CO2 ABG O2 Saturation ABG Base Excess VBG Lactate 3.7 H* Oxygen Liter Flow Sodium Potassium Chloride Carbon Dioxide Anion Gap BUN Creatinine Est GFR (CKD-EPI 2020) Glucose Calcium Phosphorus Magnesium Total Bilirubin AST ALT Alkaline Phosphatase Total Protein Albumin Patient ABO/Rh A Positive Antibody Screen NEGATIVE Crossmatch See Detail 11/17/22 11/17/22 11/17/22 10:12 10:12 10:25 WBC RBC Hgb Hct MCV MCH MCHC RDW Plt Count MPV Immature Gran % Neutrophils % Lymphocytes % Monocytes % Eosinophils % Basophils % Nucleated RBC % Absolute Neutrophils Absolute Lymphocytes Absolute Monocytes Absolute Eosinophils Absolute Basophils RBC Morphology Polychromasia Anisocytosis PT 13.9 H INR 1.4 H APTT 31.7 ABG Sample Site Arterial Line ABG pH 7.44 ABG pCO2 28 L ABG pO2 69 L ABG HCO3 19 L ABG Total CO2 19 L ABG O2 Saturation 96 ABG Base Excess -5 L VBG Lactate Oxygen Liter Flow 4 Sodium Potassium Chloride Carbon Dioxide Anion Gap BUN Creatinine Est GFR (CKD-EPI 2020) Glucose Calcium Phosphorus 4.0 Magnesium 2.1 Total Bilirubin AST ALT Alkaline Phosphatase Total Protein Albumin Patient ABO/Rh Antibody Screen Crossmatch 11/17/22 11/17/22 11/17/22 12:10 18:15 18:15 WBC RBC Hgb 12.5 L D 12.4 L Hct 38.1 L 36.9 L MCV MCH MCHC RDW Plt Count MPV Immature Gran % Neutrophils % Lymphocytes % Monocytes % Eosinophils % Basophils % Nucleated RBC % Absolute Neutrophils Absolute Lymphocytes Absolute Monocytes Absolute Eosinophils Absolute Basophils RBC Morphology Polychromasia Anisocytosis PT INR APTT ABG Sample Site ABG pH ABG pCO2 ABG pO2 ABG HCO3 ABG Total CO2 ABG O2 Saturation ABG Base Excess VBG Lactate Oxygen Liter Flow Sodium 146 H Potassium 5.3 H Chloride 113 H Carbon Dioxide 20.9 L Anion Gap 12.1 H BUN 65 H Creatinine 4.0 H* Est GFR (CKD-EPI 2020) 15.53 Glucose 146 H Calcium 7.9 L Phosphorus Magnesium Total Bilirubin AST ALT Alkaline Phosphatase Total Protein Albumin Patient ABO/Rh Antibody Screen Crossmatch 11/17/22 11/17/22 11/18/22 20:00 20:00 05:30 WBC Cancelled RBC Cancelled Hgb Cancelled Hct Cancelled MCV Cancelled MCH Cancelled MCHC Cancelled RDW Cancelled Plt Count Cancelled MPV Cancelled Immature Gran % Neutrophils % Lymphocytes % Monocytes % Eosinophils % Basophils % Nucleated RBC % Absolute Neutrophils Absolute Lymphocytes Absolute Monocytes Absolute Eosinophils Absolute Basophils RBC Morphology Polychromasia Anisocytosis PT INR APTT ABG Sample Site ABG pH ABG pCO2 ABG pO2 ABG HCO3 ABG Total CO2 ABG O2 Saturation ABG Base Excess VBG Lactate Oxygen Liter Flow Sodium Cancelled Potassium Cancelled Chloride Cancelled Carbon Dioxide Cancelled Anion Gap Cancelled BUN Cancelled Creatinine Cancelled Est GFR (CKD-EPI 2020) Cancelled Glucose Cancelled Calcium Cancelled Phosphorus Cancelled 4.1 Magnesium Cancelled 2.3 Total Bilirubin AST ALT Alkaline Phosphatase Total Protein Albumin Patient ABO/Rh Antibody Screen Crossmatch 11/18/22 11/18/22 11/18/22 05:30 05:30 05:30 WBC 18.53 H RBC 3.69 L Hgb 11.2 L Hct 33.0 L MCV 89 MCH 30.4 MCHC 33.9 RDW 14.2 H Plt Count 189 MPV 10.7 Immature Gran % 1.0 Neutrophils % 83.6 Lymphocytes % 5.2 Monocytes % 10.1 Eosinophils % 0.0 Basophils % 0.1 Nucleated RBC % 0.2 Absolute Neutrophils 15.49 H Absolute Lymphocytes 0.96 L Absolute Monocytes 1.87 H Absolute Eosinophils 0.00 Absolute Basophils 0.02 RBC Morphology See Below Polychromasia Present Anisocytosis 2+ PT INR APTT ABG Sample Site ABG pH ABG pCO2 ABG pO2 ABG HCO3 ABG Total CO2 ABG O2 Saturation ABG Base Excess VBG Lactate 1.3 Oxygen Liter Flow Sodium 148 H Potassium 4.2 D Chloride 114 H Carbon Dioxide 23.0 Anion Gap 11.0 BUN 59 H Creatinine 2.9 H D Est GFR (CKD-EPI 2020) 22.85 Glucose 146 H Calcium 7.9 L Phosphorus Magnesium Total Bilirubin 0.9 AST 67 H ALT 18 Alkaline Phosphatase 120 H Total Protein 5.2 L Albumin 1.8 L Patient ABO/Rh Antibody Screen Crossmatch 11/18/22 08:30 WBC RBC Hgb Hct MCV MCH MCHC RDW Plt Count MPV Immature Gran % Neutrophils % Lymphocytes % Monocytes % Eosinophils % Basophils % Nucleated RBC % Absolute Neutrophils Absolute Lymphocytes Absolute Monocytes Absolute Eosinophils Absolute Basophils RBC Morphology Polychromasia Anisocytosis PT INR APTT ABG Sample Site ABG pH ABG pCO2 ABG pO2 ABG HCO3 ABG Total CO2 ABG O2 Saturation ABG Base Excess VBG Lactate Oxygen Liter Flow Sodium Cancelled Potassium Cancelled Chloride Cancelled Carbon Dioxide Cancelled Anion Gap Cancelled BUN Cancelled Creatinine Cancelled Est GFR (CKD-EPI 2020) Cancelled Glucose Cancelled Calcium Cancelled Phosphorus Magnesium Total Bilirubin AST ALT Alkaline Phosphatase Total Protein Albumin Patient ABO/Rh Antibody Screen Crossmatch
--- NOTE | 2022-11-18 10:24 | PGE_ITS ---
Date of Service Date of service: 11/18/22 Time of Service: 10:24 Assessment and Plan Assessment and plan (1) Pneumothorax on left: Status: Acute (2) Retroperitoneal bleeding: Status: Acute Assessment and plan: -due to lovenox -currently on hold hgb 11.9 (3) Intraabdominal hemorrhage: Status: Acute (4) Acute renal failure: Status: Acute (5) Hyperkalemia: Status: Acute (6) Aspiration pneumonitis: Status: Acute Assessment and plan: PEG tube Monday of stable (7) Hypoglycemia: Status: Resolved (8) Acute respiratory failure with hypoxia: Status: Acute (9) Frailty syndrome in geriatric patient: Status: Acute (10) History of lung cancer: Status: Acute (11) Anemia: Status: Chronic (12) Hyperglycemia: Status: Resolved (13) Hx pulmonary embolism: Status: Chronic (14) Pseudobulbar affect: Status: Acute (15) Unintentional weight loss: Status: Acute (16) Tardive dyskinesia: Status: Chronic (17) Cervicalgia: Status: Acute (18) Anxiety with somatic features: Status: Chronic (19) Asthma-COPD overlap syndrome: Status: Resolved (20) GERD (gastroesophageal reflux disease): Status: Chronic (21) Depressive disorder: Status: Chronic (22) Pharyngoesophageal dysphagia: Status: Acute (23) Globus sensation: Status: Acute (24) Chronic alcoholic pancreatitis: Status: Acute (25) Tubular adenoma of colon: Status: Acute (26) Malignant neoplasm of unspecified part of right bronchus or lung: Status: Acute (27) Dyspepsia: Status: Acute (28) Chronic obstructive pulmonary disease: Status: Chronic Qualifiers: COPD type: unspecified COPD Qualified Code(s): J44.9 - Chronic obstructive pulmonary disease, unspecified (29) Alcohol abuse, in remission: Status: Acute Subjective Subjective Interval history since last seen: pt is non verbal increase PTX on xray today. Increase in O2 requirements. Line is in good position on CXR. However, the line was not connected properly to the suction- this was remedied. Repeat CXR in 1 hrs time. Objective Last Vital Signs Temp 36.8 C 11/18/22 04:40 Pulse 80 11/18/22 08:30 Resp 24 11/18/22 08:30 BP 152/73 H 11/18/22 06:45 Pulse Ox 92 11/18/22 09:24 Laboratory Results - last 24 hr 11/17/22 11/17/22 11/17/22 09:33 10:12 10:12 WBC RBC Hgb Hct MCV MCH MCHC RDW Plt Count MPV Immature Gran % Neutrophils % Lymphocytes % Monocytes % Eosinophils % Basophils % Nucleated RBC % Absolute Neutrophils Absolute Lymphocytes Absolute Monocytes Absolute Eosinophils Absolute Basophils RBC Morphology Polychromasia Anisocytosis PT 13.9 H INR 1.4 H APTT 31.7 ABG Sample Site ABG pH ABG pCO2 ABG pO2 ABG HCO3 ABG Total CO2 ABG O2 Saturation ABG Base Excess VBG Lactate Oxygen Liter Flow Sodium Potassium Chloride Carbon Dioxide Anion Gap BUN Creatinine Est GFR (CKD-EPI 2020) Glucose Calcium Phosphorus 4.0 Magnesium 2.1 Total Bilirubin AST ALT Alkaline Phosphatase Total Protein Albumin Patient ABO/Rh A Positive Antibody Screen NEGATIVE Crossmatch See Detail 11/17/22 11/17/22 11/17/22 10:25 12:10 18:15 WBC RBC Hgb 12.5 L D Hct 38.1 L MCV MCH MCHC RDW Plt Count MPV Immature Gran % Neutrophils % Lymphocytes % Monocytes % Eosinophils % Basophils % Nucleated RBC % Absolute Neutrophils Absolute Lymphocytes Absolute Monocytes Absolute Eosinophils Absolute Basophils RBC Morphology Polychromasia Anisocytosis PT INR APTT ABG Sample Site Arterial Line ABG pH 7.44 ABG pCO2 28 L ABG pO2 69 L ABG HCO3 19 L ABG Total CO2 19 L ABG O2 Saturation 96 ABG Base Excess -5 L VBG Lactate Oxygen Liter Flow 4 Sodium 146 H Potassium 5.3 H Chloride 113 H Carbon Dioxide 20.9 L Anion Gap 12.1 H BUN 65 H Creatinine 4.0 H* Est GFR (CKD-EPI 2020) 15.53 Glucose 146 H Calcium 7.9 L Phosphorus Magnesium Total Bilirubin AST ALT Alkaline Phosphatase Total Protein Albumin Patient ABO/Rh Antibody Screen Crossmatch 11/17/22 11/17/22 11/17/22 18:15 20:00 20:00 WBC Cancelled RBC Cancelled Hgb 12.4 L Cancelled Hct 36.9 L Cancelled MCV Cancelled MCH Cancelled MCHC Cancelled RDW Cancelled Plt Count Cancelled MPV Cancelled Immature Gran % Neutrophils % Lymphocytes % Monocytes % Eosinophils % Basophils % Nucleated RBC % Absolute Neutrophils Absolute Lymphocytes Absolute Monocytes Absolute Eosinophils Absolute Basophils RBC Morphology Polychromasia Anisocytosis PT INR APTT ABG Sample Site ABG pH ABG pCO2 ABG pO2 ABG HCO3 ABG Total CO2 ABG O2 Saturation ABG Base Excess VBG Lactate Oxygen Liter Flow Sodium Cancelled Potassium Cancelled Chloride Cancelled Carbon Dioxide Cancelled Anion Gap Cancelled BUN Cancelled Creatinine Cancelled Est GFR (CKD-EPI 2020) Cancelled Glucose Cancelled Calcium Cancelled Phosphorus Cancelled Magnesium Cancelled Total Bilirubin AST ALT Alkaline Phosphatase Total Protein Albumin Patient ABO/Rh Antibody Screen Crossmatch 11/18/22 11/18/22 11/18/22 05:30 05:30 05:30 WBC RBC Hgb Hct MCV MCH MCHC RDW Plt Count MPV Immature Gran % Neutrophils % Lymphocytes % Monocytes % Eosinophils % Basophils % Nucleated RBC % Absolute Neutrophils Absolute Lymphocytes Absolute Monocytes Absolute Eosinophils Absolute Basophils RBC Morphology Polychromasia Anisocytosis PT INR APTT ABG Sample Site ABG pH ABG pCO2 ABG pO2 ABG HCO3 ABG Total CO2 ABG O2 Saturation ABG Base Excess VBG Lactate 1.3 Oxygen Liter Flow Sodium 148 H Potassium 4.2 D Chloride 114 H Carbon Dioxide 23.0 Anion Gap 11.0 BUN 59 H Creatinine 2.9 H D Est GFR (CKD-EPI 2020) 22.85 Glucose 146 H Calcium 7.9 L Phosphorus 4.1 Magnesium 2.3 Total Bilirubin 0.9 AST 67 H ALT 18 Alkaline Phosphatase 120 H Total Protein 5.2 L Albumin 1.8 L Patient ABO/Rh Antibody Screen Crossmatch 11/18/22 11/18/22 05:30 08:30 WBC 18.53 H RBC 3.69 L Hgb 11.2 L Hct 33.0 L MCV 89 MCH 30.4 MCHC 33.9 RDW 14.2 H Plt Count 189 MPV 10.7 Immature Gran % 1.0 Neutrophils % 83.6 Lymphocytes % 5.2 Monocytes % 10.1 Eosinophils % 0.0 Basophils % 0.1 Nucleated RBC % 0.2 Absolute Neutrophils 15.49 H Absolute Lymphocytes 0.96 L Absolute Monocytes 1.87 H Absolute Eosinophils 0.00 Absolute Basophils 0.02 RBC Morphology See Below Polychromasia Present Anisocytosis 2+ PT INR APTT ABG Sample Site ABG pH ABG pCO2 ABG pO2 ABG HCO3 ABG Total CO2 ABG O2 Saturation ABG Base Excess VBG Lactate Oxygen Liter Flow Sodium Cancelled Potassium Cancelled Chloride Cancelled Carbon Dioxide Cancelled Anion Gap Cancelled BUN Cancelled Creatinine Cancelled Est GFR (CKD-EPI 2020) Cancelled Glucose Cancelled Calcium Cancelled Phosphorus Magnesium Total Bilirubin AST ALT Alkaline Phosphatase Total Protein Albumin Patient ABO/Rh Antibody Screen Crossmatch Time Spent with Patient Time Spent with Patient: >50 minutes Time was spent: preparing to see the patient(eg.review tests), ordering medications,tests, procedures, referring, communicating with other health district manager primary care sales, indepentently interpreting results and other
[2022-11-18] MEDS: Furosemide 20 MG/2 ML VIAL IVP (10:35)
[2022-11-18] MEDS: PIPERACILLIN/TAZO 4.5 GM in Normal Saline 100 ML IVPB ×2 (10:35→21:12)
--- NOTE | 2022-11-18 11:35 | DI.RAD_ITS ---
Exam(s) XR PORTABLE CHEST AP POST LINE EXAM: XR PORTABLE CHEST AP POST LINE CLINICAL HISTORY: S/P chest tube.. TECHNIQUE: 2D digital imaging was performed. COMPARISON: CR XR PORTABLE CHEST AP from 11/18/2022 FINDINGS: Single AP portable view. Performed 11:30 a.m.. This is a 2nd chest x-ray today. There is no change in the size of the left pneumothorax which is approximately 40-50 percent, unchang ed from earlier today. Bilateral infiltrates again noted. Left subclavian central line and right PICC line remain in satisfactory position. IMPRESSION: No improvement in the left-sided pneumothorax compared to earlier today. Called by myself to ICU DATA REPOSITORY: RADIATION DOSE DELIVERED:
--- NOTE | 2022-11-18 15:16 | PT.INIE ---
PT Notes Visit Reasons: AcuteHypoxicRespiratoryFailure,Multifocalpneumonia Inpatient Physical Therapy Evaluation Date: [] Referring Doctor: [] PT Orders: PT CONSULT: [] Precautions: [] Patient Profile/Admitting Diagnosis: Patient with history of parkinsonism, tardive dyskinesia, memory loss/dementia in addition to congenital cognitive challenges, history of alcohol abuse (sober since 2019, history of confabulation), mood disorder and pulmonary embolism.? He was admitted to [facility] 11/06/31 with bilateral pneumonia, COPD exacerbation and respiratory failure with hypoxia/hypercarbia.?He participated in PT intervention from 11/07/22 - 11/14/22, at which point he was transferred to ICU due to delirium and increasing oxygen needs, and diagnosed with hemorrhagic shock d/t his retroperitoneal bleeding. New orders received today for evaluation and treatment. PMHX: All Active Problems?(Updated 11/05/22 @ 18:36 by Natali Hopper MD) Hyperglycemia (Acute) Sepsis (Acute) Hx pulmonary embolism (Chronic) Elevated CPK (Acute) Acute lactic acidosis (Acute) Acute respiratory failure with hypoxia and hypercarbia (Acute) Community acquired pneumonia (Acute) Leukocytosis (Acute) Hypoalbuminemia (Acute) FREDDY (acute kidney injury) (Acute) Parkinsonism (Chronic) Urinary incontinence (Acute) Pseudobulbar affect (Acute) Unintentional weight loss (Acute) Chronic anticoagulation (Chronic) Tardive dyskinesia (Chronic) Cervicalgia (Acute) Anxiety with somatic features (Chronic) chest wall pain, globus sensation, abdominal pain, shortness of breath Asthma-COPD overlap syndrome (Acute) GERD (gastroesophageal reflux disease) (Chronic) Depressive disorder (Chronic) Confabulation (Chronic) Memory loss (Acute) Non compliance w medication regimen (Chronic) Chest wall pain, chronic (Acute) Pharyngoesophageal dysphagia (Acute) Globus sensation (Acute) Vitamin D deficiency (Acute) Hypocalcemia (Chronic) Pulmonary embolism (Chronic 12/20/18) CT Report, Started on EliquisConstipation (Chronic) Cognitive impairment (Chronic) [facility] progress note: 11/13/18, mild to moderate Chronic alcoholic pancreatitis (Acute) Umbilical hernia (Acute) Tubular adenoma of colon (Acute 05/04/09) 01/19/15 NO adenoma on repeat colonoscopy Malignant neoplasm of unspecified part of right bronchus or lung (Acute 10/04/17) Dyspepsia (Acute 04/26/16) Chronic obstructive pulmonary disease (Chronic 03/22/17) moderately severe 03/07/17:? FEV1/FVC 1.82/3.48, 52% (+) Bronchodilator response compared to PFT in 2007, 800cc decline in FVC & 460cc decline in FEV1 Anxiety (Chronic 09/17/14) Alcohol abuse, in remission (Acute 04/26/16) Medical History? Abdominal pain Adjustment disorder with anxiety (06/29/17) Alcohol abuse (11/27/12) Anxiety Dyspepsia Epigastric pain History of sore throat Malignant neoplasm of right lung Melena Palliative care patient Pancreatitis, acute Rash of face Thrush Tubular adenoma of colon Weight loss Social History/Home Situation: Patient lives in a private home with his elderly parents. Has home services 5 days per week. Independent ambulator at baseline, and walking up to 300' with PT prior to transfer to ICU. Subjective: Iggy is unable to provide subjective history. Able to nod yes, that he's agreeable to PT consult. Nursing present and reporting that they are awaiting MD check of chest tube. Objective: General Observation: Resting in bed with multiple lines. Chest tube in place. NG tube. IV in bilat UEs. Telemetry in place. Pulse oximetry to right great toe. Noel catheter. Facial tremor noted. Patient initially in soft restraint of RUE due to pulling on lines; this was removed for PT consultation and put back in place post treatment, with nursing alerted. Mental Status: Alert. Patient does not provide verbal responses during today's session, and subsequently unable to assess for orientation. Pain: unable to assess Vital Signs: monitored throughout ROM: Right Upper Extremity: Shoulder flexion 50*. Elbow motion -30* extension to 120 flexion. Wrist and hand motions WFL. Left Upper Extremity: Shoulder flexion 95*. Elbow motion -45* extension to 120 flexion. Wrist and hand motions WFL. Right Lower Extremity: WFL. Tight Achilles at 5* DF Left Lower Extremity: WFL. Tight Achilles at 5* DF Strength: Right Upper Extremity: shoulder flexion 3-/5. Biceps 3/5 or greater. Left Upper Extremity: shoulder flexion 3-/5. Biceps 3/5 or greater. Right Lower Extremity: Able to pump ankle. Initiates SLR, although unable to fully lift RLE. Unable to follow commands for additional assessment. Left Lower Extremity: Able to perform SLR. Able to pump ankles. Unable to follow commands for additional assessment. Bed Mobility/Transfers: not assessed due to chest tube Gait: unable to assess Balance: Static Sitting: unable Dynamic Sitting: unable Static Standing: unable Dynamic Standing: unable Special Tests: Mobility Limitations Standardized Measure [facility] [place] AM-PAC 6 clicks Basic Mobility Inpatient Short Form: Raw Score: 6 CMS Score: 100% impairment Informed Consent/Education: Patient instructed in purpose of PT consult and plan of care. Treatment: Today's session consisted of evaluation, followed by treatment as noted below. Discussed appropriate treatment planning, with patient verbalizing agreement. Performed manual stretching to bilat Achilles, and stretching into knee extension, 30 seconds x 3 reps each. Attempted instruction in bed exercises/AROM, although patient unable to follow single step commands for completion. Assessment: Patient presents with clinical signs and symptoms consistent with current/admitting diagnoses that have resulted to mobility limitations, gait instability, generalized weakness, and overall ADL decline as demonstrated by the following impairment level findings: 1.? Decreased strength to B UE/LE major muscle groups 2.? Impaired sitting/standing balance 3.? Impaired activity tolerance 4.? unable to consistently follow commands Impairments are contributing to the following functional limitations: 1.? Decline in bed mobility skills 2.? Decline in transfer skills 3.? unable to ambulate 4.? unable to participate in ADL performance Patient is assessed as a [id number] moderate complexity based on the following: History: 67-year-old male with extensive past medical history as indicated above. Currently in ICU due to hemorrhagic shock d/t retroperitoneal bleeding, with chest tube and feeding tube now in place. Examination: Severe functional limitations as noted above. Currently non-ambulatory and unable to participate in care. Presentation: Unstable Decision Makin? moderate complexity Goals: Goals X1 week 1. Supine-Sit: min A 2. Sit-Supine: min A 3. Sit-Stand : min A 4. Stand-Sit : min A 5. Bed-Chair: min A with FWW 6. Chair-Bed : min A with FWW 7. Ambulation on level surface with use of FWW and min A for at least 25 feet without report of pain nor dyspnea Plan of Care/Treatment Plan: 1-2x/day, 7 days/week x 1 week. Plan of care has been reviewed with the DATA MODELING SPECIALIST providing the service under Physical Therapy direction. Initiate Physical Therapy intervention for strengthening, bed mobility, transfers, gait, stairs, balance training, use of assistive device. DISCHARGE RECOMMENDATIONS: SNF for continued rehabilitation TREATMENT CODE/TIME: 13208 (3:20-3:40) Melody Cruz, PT, DPT [facility]
--- NOTE | 2022-11-18 16:45 | DI.RAD_ITS ---
Exam(s) XR PORTABLE CHEST AP POST LINE EXAM: XR PORTABLE CHEST AP POST LINE CLINICAL HISTORY: post chest tube.. TECHNIQUE: 2D digital imaging was performed. COMPARISON: CR XR PORTABLE CHEST AP POST LINE from 11/18/2022 FINDINGS: Single AP portable view. Form 11/18/2022 at 16:51 hrs Heart size is unchanged. Size left pneumothorax as minimally decreased, approximately 30 percent at this time. Bilateral infi ltrates again noted and again noted be most prominent in the right lower lobe. Central line and PICC line and Dobbhoff catheter again noted. IMPRESSION: Size of the left pneumothorax has slightly decreased. Measures approximately 30 percent at this time DATA REPOSITORY: RADIATION DOSE DELIVERED:
--- NOTE | 2022-11-18 17:03 | STREC_ITS ---
Date of service: 11/18/22 Time of Service: 09:00 Speech Therapy Recommendations Report ST Recommendations: Non-treatment note: Interval updates: While sepsis has resolved and dobhoff tube placed temporarily, patient recently with respiratory failure and found with pneumothorax secondary to CVC line placement, as well as hypovolemic shock (resolved) and hemorrhagic shock secondary to retroperitoneal bleed. This date he now has pleural effusion and atelectatic lung. He is being treated again with Zosyn due to suspected aspiration events. OVEN HEATER HELPER contacted patient and speaking with Nursing this date to consider conservative PO trials if his oral-motor and mental status appear improved. However, patient is appearing still with largely continuous TD movements, and is unable to even participate effectively in oral care due to clamping/fixation, inability to follow instructions. He does greet this clinician upon entry but thereafter is not verbally responsive or visually tracking. Agree with nursing that patient is not safe for PO trials at this time, even limited, and given his precarious and complicated medical/respiratory status and recent shock state would benefit from opportunity to make further recovery this weekend before reconsidering PO trials again. Per neurology if he sees improvement toward baseline we may consider repeat MBSS. OVEN HEATER HELPER will check in on patient status Monday. Coding
--- NOTE | 2022-11-18 19:45 | DI.RAD_ITS ---
Exam(s) XR PORTABLE CHEST AP EXAM: XR PORTABLE CHEST AP CLINICAL HISTORY: sudden drop in sats ? chest tube?. TECHNIQUE: 2D digital imaging was performed. COMPARISON: CR XR PORTABLE CHEST AP POST LINE from 11/18/2022 FINDINGS: Single AP portable view. Thin caliber left chest again noted. Persistent large left pneumothorax, increasing further in size. Approximately 60 percent pneumothorax at this time. Persistent infiltrates and small right pleural effusion. Heart size is upper normal. The mediastinum is not widened. IMPRESSION: Further increased size left pneumothorax. DATA REPOSITORY: RADIATION DOSE DELIVERED:
--- NOTE | 2022-11-18 20:00 | DI.RAD_ITS ---
Exam(s) XR PORTABLE CHEST AP EXAM: XR PORTABLE CHEST AP CLINICAL HISTORY: follow up chest tube placement. TECHNIQUE: 2D digital imaging was performed. COMPARISON: CR,XR XR PORTABLE CHEST AP from 11/18/2022 FINDINGS: Single AP portable view. Heart size is upper normal. The mediastinum is not widened. There is even further increase in size of the left pneumothorax, approximately 70-80 percent collapse of the left lung.. Persistent bilateral infiltrates. Small right pleural effusion. Dobbhoff catheter remains in stomach and left subclavian central line and right PICC lines are again noted in satisfactory position. IMPRESSION: Further increase in size of the left pneumothorax with approximately 70-80 percent collapse of the le ft lung, this despite the presence of a small left chest tube. DATA REPOSITORY: RADIATION DOSE DELIVERED:
--- NOTE | 2022-11-18 20:19 | W.EVENT ---
Date of service: 11/18/22 Time of Service: 20:19 Event Note: Iggy desaturated into the mid 60's, his left pleural catheter was nonfunctioning. He did not exhibit tracheal deviation or hypotension at first. He was put on non-rebreather mask and also supplemental nasal cannula but when his oxygen did not come above 75%, and his pressure started to drop, I put a 14 gauge angio catheter in his left uper chest about 2 interspaces above his left breast. His BP improved and his oxygen eventually came up into the low 80's. By this time Dr. Glass arrived and Dr. Chiang came up from the ED. Dr. Glass put a new chest tube (not a pleural catheter) in his left chest and his lung then re-expanded. However he has had some oxygenation problems afterwards and his post chest tube film appears to be consistent w/ re-expansion pulmonary edema. I spoke w/ his mother Vee and Dr. Glass also spoke w/ her. After Dr. Glass's conversation, his mother agreed to no intubation status. Time Spent with Patient Time spent in critical care(minutes): 60 minutes Time Spent Included: Coordination of care, Time at immediate bedside, Discussing critically ill care with other medical staff and Discussing Hx and/or treatment with family
[2022-11-18] MEDS: fentaNYL 100 MCG/2 ML VIAL 50 MCG IVP (20:20)
--- NOTE | 2022-11-18 20:21 | DI.VRAD_ITS ---
Addendum created by Giovanni Asher MD on 11/18/2022 8:37:20 PM EDT: Receipt of report and understanding of findings by Dr. Glass through the operating center. No further questions were asked of the radiologist. Initial report created on 11/18/2022 8:20:36 PM EDT: PROCEDURE INFORMATION: Exam: XR Chest Exam date and time: 11/18/2022 7:52 PM Age: 67 years old Clinical indication: Device placement; Chest tube; Additional info: Sudden drop in sats ? chest tube? TECHNIQUE: Imaging protocol: Radiologic exam of the chest. Views: 1 view. COMPARISON: CR XR PORTABLE CHEST AP POST LINE 11/18/2022 4:49 PM FINDINGS: Tubes, catheters and devices: Right upper extremity PICC line is in position with tip at the superior cavoatrial junction. A left subclavian central line is in position. Nasoenteric feeding tube with its distal tip in the region of the gastric antrum. Lungs: See Pleural spaces finding. Pleural spaces: Large left pneumothorax at greater than 50% volume. Pneumothorax has progressed since small caliber chest tube was placed. The chest tube is noted in the inferior left hemithorax. The left lung is collapsing centrally. Right lung with mild basilar consolidation which may represent infiltrate or atelectasis. Right apical lung opacification which could represent a nodular focus or mass measuring 3.1 x 1.4 cm. Small right pleural effusion. Heart/Mediastinum: Normal heart size. No mediastinal shift. Bones/joints: No acute skeletal changes. IMPRESSION: 1. Progressive left pneumothorax. Greater than 50% volume. A small caliber left chest tube is noted in the inferior left hemithorax. 2. Right basilar lung consolidation may represent infiltrate or atelectasis. Right apical density may represent a lung nodule. This is 3.1 x 1.4 cm. 3. Small right pleural effusion. 4. Right upper extremity PICC line is in position. Left subclavian central line is in position. 5. Nasoenteric feeding tube with its distal tip in the region of the gastric antrum. Dictated and Authenticated by: Giovanni Asher MD. Ordering:[facility] Jack Jeffery MD
[2022-11-18] MEDS: LORazepam 2 MG/ML VIAL 0.5 MG IVP (20:30)
--- NOTE | 2022-11-18 20:34 | DI.VRAD_ITS ---
PROCEDURE INFORMATION: Exam: XR Chest Exam date and time: 11/18/2022 7:52 PM Age: 67 years old Clinical indication: Device placement; Chest tube; Additional info: Follow up chest tube placement TECHNIQUE: Imaging protocol: Radiologic exam of the chest. Views: 1 view. COMPARISON: CR XR PORTABLE CHEST AP POST LINE 11/18/2022 4:49 PM FINDINGS: Tubes, catheters and devices: Nasoenteric feeding tube with its distal tip in the region of the gastric antrum. Left subclavian central line in place. Right upper extremity PICC line well positioned. Lungs: Progressive left-sided pneumothorax with near complete collapse of the lung centrally. Right lung base mild consolidative changes suggesting atelectasis or possibly infiltrate. Right apical density measuring approximately 3 x 1.4 cm. Can not exclude a right apical nodular lesion. This is demonstrated on a CT chest 11/15/2022. Left lung central collapse and opacification. Pleural spaces: Small right pleural effusion. Heart/Mediastinum: Normal heart size. No mediastinal shift. Bones/joints: Unremarkable. IMPRESSION: 1. Progressive left pneumothorax with small caliber chest tube in position. 2. Right basilar airspace opacification suggesting infiltrate. Right apical opacification that may represent a nodule. 3. Minor right pleural effusion. 4. Support tubes and catheters in position as detailed above. 5. The progressive pneumothorax has been reported to Dr. Glass. There were no further questions for the radiologist requested through communication with the operating center. Dictated and Authenticated by: Giovanni Asher MD. Ordering:[facility] Jack Jeffery MD
--- NOTE | 2022-11-18 20:45 | DI.VRAD_ITS ---
PROCEDURE INFORMATION: Exam: XR Chest Exam date and time: 11/18/2022 8:34 PM Age: 67 years old Clinical indication: Other: Ptx; Prior surgery; Surgery date: Post-operative (0-2 days); Surgery type: Chest tube TECHNIQUE: Imaging protocol: Radiologic exam of the chest. Views: 1 view. COMPARISON: XR PORTABLE CHEST AP 11/18/2022 7:52 PM FINDINGS: Tubes, catheters and devices: Placement of a large caliber chest tube in the left hemithorax. This chest tube is positioned inferiorly over the hemidiaphragm. Right upper extremity PICC line well positioned and stable. Left subclavian central line well positioned and stable. Nasoenteric feeding tube with its distal tip in the region of the gastric pylorus. Lungs: Right-sided basilar atelectatic type features. Minor consolidation in the right mid to upper lung field may represent infiltrate. Right apical density is again noted concerning for a lung nodule or mass. Mild retrocardiac left lung base consolidation is likely atelectatic. Pleural spaces: Left pneumothorax has been near completely evacuated. There is suggestion of minimal apical remaining pneumothorax. Small right pleural effusion persists. Heart/Mediastinum: Unremarkable. No cardiomegaly. Bones/joints: Unremarkable. IMPRESSION: 1. New large caliber chest tube in the inferior left hemithorax with near complete evacuation of the left pneumothorax. Minimal apical pneumothorax remaining. 2. Retrocardiac left lung base airspace consolidation likely atelectatic. 3. Mild right lung infiltrative changes and atelectasis. Concern for a right apical lung nodule. 4. Minor right pleural effusion. 5. Right upper extremity PICC line, left subclavian vein central line, and nasoenteric feeding tube remain well positioned. Dictated and Authenticated by: Giovanni Asher MD. Ordering:MARK Smith MD
--- NOTE | 2022-11-18 20:49 | ROE_ITS ---
Date of service: 11/18/22 Time of Service: 20:50 Operative Note Operative Note DATE OF PROCEDURE: 11/18/22 PRE-OP DIAGNOSIS: recurrent PTX/tension pneumo POST-OP DIAGNOSIS: same PROCEDURE: left sided chest tube SURGEON: Sarah Glass ANESTHESIA TYPE: Local By Surgeon Refer to Anesthesia Record ESTIMATED BLOOD LOSS: 2 PATHOLOGY: none sent COMPLICATIONS: None Patient was transported to: no change Patient's condition: critical Procedure Description: The procedure was done emergently at the pt was in extremis. Pt is non-verbal and cannot give consent. Family currently has the pt as a full code. They had given consent previously to a pneumothorax catheter The area was prepped and draped in the sterile fashion. The area was anesthetiz ed with 20cc of? 1% Lidocaine solution. A #10 blade scalpel was used to make an incision approximately 1.5 cm long. Then a curved scissor was used to dissect down to the level of the rib. A blunt peon was then used to again enter into the right hemithorax.?? Air, but no fluid was released. ?The 20cm chest tube was placed and directed in a posterior and superior direction. The chest tube was hooked up to the Pleur-evac.? ?The chest tube was tied in with a #0 Silk. It was sutured in place with sterile dressing and ?tape. The patient tolerated this procedure well. We will obtain a chest x-ray in postop to ensure proper placement and continue to follow the patient very closely.
--- NOTE | 2022-11-18 20:56 | W.PM.PROGNOT ---
Date of Service Date of service: 11/18/22 Time of Service: 20:56 Subjective Subjective Interval history since last seen: Spoke w/ Mother Lucie and and other family members via phone. D/w his current respiratory status- PTX/pneumonia/hypoxia. I d/w them the futility of intubation adn chronic respiratory maintenance. He would not be able to come off the vent and require trach and ventilator retirement Given his history of COPD/lung cancer tardive dyskinesia and pseudobulbar affect and Parkinson is him, and he would never come off the ventilator. He is too weak and too frail. He would require chronic PEG and trach and chronic penitentiary care. He would never build to live at home. And he would have very poor quality of life. And he is at high risk for further complications including bleeds, decubitus ulcers, pneumonia, aspiration events, tube dislodgment, etc. I reviewed medical options for him and quality of life. We will continue all aggressive measures up and until intubations, They have agreed to make him DNI. I did try to further discuss with him and making him a comfort care only. I do not feel that they are ready to make that decision at this time. We will continue to do aggressive care up into the point of intubation. Currently he is saturating between 88 and 90% with respiratory rate in the 25-30. ABGs are good. Further labs pending. Chest x-ray shows that the lung is inflated. There is minimal drainage. He might have some post inflation pulmonary edema versus just trauma from chest tube insertion. Troponin/BNP/hemoglobin are pending at this time. d/w Dr. Santiago 90 minutes is spent in critical care of this patient tonight Objective Last Vital Signs Temp 37.4 C 11/18/22 16:25 Pulse 96 H 11/18/22 20:48 Resp 31 H 11/18/22 20:48 BP 152/73 H 11/18/22 06:45 Pulse Ox 95 11/18/22 20:49 Laboratory Results - last 24 hr 11/18/22 11/18/22 11/18/22 05:30 05:30 05:30 WBC RBC Hgb Hct MCV MCH MCHC RDW Plt Count MPV Immature Gran % Neutrophils % Lymphocytes % Monocytes % Eosinophils % Basophils % Nucleated RBC % Absolute Neutrophils Absolute Lymphocytes Absolute Monocytes Absolute Eosinophils Absolute Basophils RBC Morphology Polychromasia Anisocytosis VBG Lactate 1.3 Sodium 148 H Potassium 4.2 D Chloride 114 H Carbon Dioxide 23.0 Anion Gap 11.0 BUN 59 H Creatinine 2.9 H D Est GFR (CKD-EPI 2020) 22.85 Glucose 146 H Calcium 7.9 L Phosphorus 4.1 Magnesium 2.3 Total Bilirubin 0.9 AST 67 H ALT 18 Alkaline Phosphatase 120 H Total Protein 5.2 L Albumin 1.8 L 11/18/22 11/18/22 11/18/22 05:30 08:30 20:00 WBC 18.53 H RBC 3.69 L Hgb 11.2 L Hct 33.0 L MCV 89 MCH 30.4 MCHC 33.9 RDW 14.2 H Plt Count 189 MPV 10.7 Immature Gran % 1.0 Neutrophils % 83.6 Lymphocytes % 5.2 Monocytes % 10.1 Eosinophils % 0.0 Basophils % 0.1 Nucleated RBC % 0.2 Absolute Neutrophils 15.49 H Absolute Lymphocytes 0.96 L Absolute Monocytes 1.87 H Absolute Eosinophils 0.00 Absolute Basophils 0.02 RBC Morphology See Below Polychromasia Present Anisocytosis 2+ VBG Lactate Sodium Cancelled Cancelled Potassium Cancelled Cancelled Chloride Cancelled Cancelled Carbon Dioxide Cancelled Cancelled Anion Gap Cancelled Cancelled BUN Cancelled Cancelled Creatinine Cancelled Cancelled Est GFR (CKD-EPI 2020) Cancelled Cancelled Glucose Cancelled Cancelled Calcium Cancelled Cancelled Phosphorus Cancelled Magnesium Cancelled Total Bilirubin AST ALT Alkaline Phosphatase Total Protein Albumin Time Spent with Patient Time Spent with Patient: >50 minutes Time was spent: preparing to see the patient(eg.review tests), obtaining and/or reviewing separately otained hiistory, ordering medications,tests, procedures, referring, communicating with other health personal care assistant, indepentently interpreting results, counseling the patient, care coordination and other
[2022-11-18] MEDS: MORPHine 2 MG/ML SYR (21:08)
[2022-11-18] MEDS: MORPHine 2 MG/ML SYR IVP (21:09)
[2022-11-18] MEDS: Pantoprazole 40 MG VIAL IVP (21:12)
[2022-11-18] MEDS: Mirtazapine 15 MG TAB 45 MG PO (21:12)
[2022-11-18 21:13] LABS: BE 0 mmol/L (-2-3); HCO3 26 mmol/L (22-26); pCO2 47 mmHg (35-45); pH 7.35 (7.35-7.45); pO2 65 mmHg (80-105); sO2 92 % (95-98); tCO2 24 mmol/L (23-27)
[2022-11-18 21:17] LABS: FIO2L 15 L; Site Left Radial
[2022-11-18] MEDS: Furosemide 40 MG/4 ML VIAL IVP (21:46)
[2022-11-18 22:53] LABS: Lactate 0.9 mmol/L (0.6-1.4)
[2022-11-18 22:54] LABS: HCT 32.2 % (40.0-50.0); HGB 10.9 g/dL (13.5-17.5)
[2022-11-18 23:17] LABS: NT-proBNP 1034 pg/mL (<300); Troponin I < 50 ng/L (<or=60)
[2022-11-19] VITALS (71 sets, daily range): BP systolic 78–120; BP diastolic 44–63; PULSE 67–94; RESP 7–42; TEMP 34–37.1; O2SAT 83–100
[2022-11-19] MEDS: LORazepam 2 MG/ML VIAL 1 MG IVP ×2 (03:07→19:31)
[2022-11-19] MEDS: MORPHine 2 MG/ML SYR IVP (03:08)
[2022-11-19 06:01] LABS: Absolute Eosinophil Count 0.01 10^3/uL (0.0-0.7); Absolute Lymphocyte Count 0.45 10^3/uL (1.2-3.4); Absolute Monocyte Count 1.18 10^3/uL (0.1-0.8); Basophils % 0.1; Eosinophils % 0.1; HCT 34.5 % (40.0-50.0); HGB 11.5 g/dL (13.5-17.5); Immature Grans % 0.7; Lymphocytes % 3.1; MCH 30.2 pg (27.0-33.0); MCHC 33.3 % (32.0-36.0); MCV 91 fL (80-95); MPV 10.8 fL (8.0-11.0); Monocytes % 8.1; Neutrophils % 87.9; Nucleated RBC 0.3 % (0.0-0.3); Platelet Count 193 10^3/uL (130-400); RBC 3.81 10^6/uL (4.36-5.78); RDW 14.4 % (11.8-14.1); RDW-SD 47.1 fL; WBC 14.59 10^3/uL (4.4-10.8)
[2022-11-19 06:11] LABS: Absolute Basophil Count 0.01 10^3/uL (0.0-0.2); Absolute Neutrophil Count 12.82 10^3/uL (1.2-6.7)
[2022-11-19 06:16] LABS: Magnesium 2.4 mg/dL (1.8-2.4); PHOSPHORUS 3.8 mg/dL (2.6-4.7)
[2022-11-19 06:19] LABS: ALT 19 U/L (16-63); AST 66 U/L (15-37); Albumin 1.9 g/dL (3.4-5.0); Alkaline Phosphatase 197 U/L (46-116); Anion Gap 9.9 mmol/L (3-11); BUN 41 mg/dL (7-18); Bilirubin, Total 0.9 mg/dL (0.2-1.0); CO2 29.1 mmol/L (21.0-32.0); CREATININE 1.6 mg/dL (0.70-1.30); Calcium 8.2 mg/dL (8.5-10.1); Chloride 113 mmol/L (98-107); Estimated GFR 46.64 (mL/min/1.73m2); Glucose 87 mg/dL (74-106); Potassium 3.5 mmol/L (3.5-5.1); Sodium 152 mmol/L (136-145)
[2022-11-19] MEDS: Tiotropium Bromide-Respimat 10 PUFF INH 2 PUFF IH (07:54)
[2022-11-19] MEDS: Budesonide/Formoterol 160/4.5 6 GM 60 PUFF INH IH ×2 (07:54→19:32)
[2022-11-19] MEDS: Albuterol/Ipratropium 3 ML UPD VIAL UPD ×4 (07:55→19:30)
--- NOTE | 2022-11-19 08:30 | DI.RAD_ITS ---
Exam(s) XR PORTABLE CHEST AP EXAM: XR PORTABLE CHEST AP CLINICAL HISTORY: left PTX. TECHNIQUE: 2D digital imaging was performed. COMPARISON: CR,XR XR PORTABLE CHEST AP from 11/18/2022 FINDINGS: Single AP portable view. Heart size is upper normal. The mediastinum is not widened. Large caliber left chest tube again noted. Left lung remains mostly re-expanded with minimal right m ain angle less than 5 percent pneumothorax. Slightly increased bilateral infiltrates. Small pleural effusions. The job half catheter is now ret racted into the more proximal stomach when compared to prior images. IMPRESSION: Minimal remaining left pneumothorax. Bilateral infiltrates. Dobbhoff catheter has been retracted into the proximal stomach, different from prior studies. DATA REPOSITORY: RADIATION DOSE DELIVERED:
[2022-11-19] MEDS: FLUoxetine 10 MG TAB 20 MG NG (09:28)
[2022-11-19] MEDS: PIPERACILLIN/TAZO 4.5 GM in Normal Saline 100 ML IVPB ×2 (09:34→21:20)
--- NOTE | 2022-11-19 10:03 | DI.VRAD_ITS ---
PROCEDURE INFORMATION: Exam: XR Chest Exam date and time: 11/19/2022 8:07 AM Age: 67 years old Clinical indication: Lt ptx TECHNIQUE: Imaging protocol: Radiologic exam of the chest. Views: 1 view. COMPARISON: XR PORTABLE CHEST AP 11/18/2022 8:34 PM FINDINGS: Tubes, catheters and devices: A left chest tube again noted in place. A right PICC line and the left subclavian central line are also in place. An enteric tube is seen. Lungs: There are increased interstitial lung markings bilaterally, slightly increased in the right lower lung zone. Stable appearance of left lung base consolidation. A new patchy region of consolidation seen in the right lower lung zone. Pleural spaces: There is a small left apical pneumothorax noted, difficult to precisely compare to the prior examination due to differences in positioning. There is a possible small right pleural effusion. Heart/Mediastinum: No cardiomegaly. Bones/joints: Unremarkable. IMPRESSION: 1. No significant change in appearance of likely small left apical pneumothorax, with left lower chest tube in place. 2. Worsening right lower lung zone consolidation and stable left lower lung zone consolidation. Dictated and Authenticated by: Sandhya Li MD. Ordering:MARK Smith MD
--- NOTE | 2022-11-19 12:06 | PGE_ITS ---
Date of Service Date of service: 11/19/22 Time of Service: 12:06 Assessment and Plan Assessment and plan (1) Acute respiratory failure with hypoxia: Status: Acute Assessment and plan: -treatment per hospitalists. -unclear etiology for resp failure. penumonia vs fluid overload. -pt is now DNR/DNI -abx per hospitalist -at this time pt is not medically stable for PEG tube. Respiratory status precludes safe insertion. If it resolves, will reconsider. will follow for chest tube managment. This document was created with voice activated software and may contain errors. 45 mins spent with the patient today. (2) Pneumothorax on left: Status: Acute Assessment and plan: -stable. Leave chest tube in place adn on suction today pulm toilet (3) Retroperitoneal bleeding: Status: Acute Assessment and plan: -stable -holding anticoag currently (4) Acute renal failure: Status: Acute (5) Aspiration pneumonitis: Status: Acute (6) Delirium: Status: Acute (7) Frailty syndrome in geriatric patient: Status: Acute (8) History of lung cancer: Status: Acute (9) Hx pulmonary embolism: Status: Chronic (10) Parkinsonism: Status: Chronic (11) Urinary incontinence: Status: Acute (12) Pseudobulbar affect: Status: Acute (13) Chronic anticoagulation: Status: Chronic (14) Tardive dyskinesia: Status: Chronic (15) Asthma-COPD overlap syndrome: Status: Resolved (16) GERD (gastroesophageal reflux disease): Status: Chronic (17) Pharyngoesophageal dysphagia: Status: Acute (18) Cognitive impairment: Status: Chronic (19) Chronic alcoholic pancreatitis: Status: Acute (20) Umbilical hernia: Status: Acute (21) Chronic obstructive pulmonary disease: Status: Chronic Qualifiers: COPD type: unspecified COPD Qualified Code(s): J44.9 - Chronic obstructive pulmonary disease, unspecified (22) Alcohol abuse, in remission: Status: Acute (23) At high risk for skin breakdown: Status: Acute Subjective Subjective Interval history since last seen: Pt is on high-flow nasal canula at 100% FIO2. Sats are around 85-90%. See Xray in [employer]. Lung is up on cxr. ~200cc serious fluid since tube insertion. No air leak. Tube feeds being held since yesterday b/c he was unstble Last BM- yesterday. No breakdown per RN's. Exam Const General: frail appearing Nutritional Appearance: malnourished Limitations: physical limitations Other: PHYSICAL EXAM GENERAL APPEARANCE: Alert, healthy appearance, oriented, x 3,? in no acute distress HYDRATION: Well hydrated HEAD, EYES, EARS, NECK, THROAT: Head is normocephalic, pupils equal, round, reactive to light and accommodation, ocular movement intact, sclera clear and no jaundice. ? LUNGS: normal respiration/normal chest excursion. ?Clear to auscultation bila terally. ?No wheeze. pt RR is in 30's. ?HEART: Regular rate and rhythm. no murmurs EXTREMITY: No edema or cyanosis.? no leg pain, redness, swelling.? no breakdown. Muscle wasting/contractures. ABDOMEN: soft and non-tender to palpation.? Normal bowel sounds.? Objective Last Vital Signs Temp 37.1 C 11/19/22 08:00 Pulse 87 11/19/22 11:41 Resp 33 H 11/19/22 12:00 BP 152/73 H 11/18/22 06:45 Pulse Ox 97 11/19/22 12:00 Laboratory Results - last 24 hr 11/18/22 11/18/22 11/18/22 20:00 21:10 22:35 WBC RBC Hgb 10.9 L Hct 32.2 L MCV MCH MCHC RDW Plt Count MPV Immature Gran % Neutrophils % Lymphocytes % Monocytes % Eosinophils % Basophils % Nucleated RBC % Absolute Neutrophils Absolute Lymphocytes Absolute Monocytes Absolute Eosinophils Absolute Basophils ABG Sample Site Left Radial ABG pH 7.35 ABG pCO2 47 H ABG pO2 65 L ABG HCO3 26 ABG Total CO2 24 ABG O2 Saturation 92 L ABG Base Excess 0 VBG Lactate Oxygen Liter Flow 15 Sodium Cancelled Potassium Cancelled Chloride Cancelled Carbon Dioxide Cancelled Anion Gap Cancelled BUN Cancelled Creatinine Cancelled Est GFR (CKD-EPI 2020) Cancelled Glucose Cancelled Calcium Cancelled Phosphorus Cancelled Magnesium Cancelled Total Bilirubin AST ALT Alkaline Phosphatase Troponin I NT-Pro-B Natriuret Pep Total Protein Albumin 11/18/22 11/18/22 11/19/22 22:35 22:35 05:20 WBC RBC Hgb Hct MCV MCH MCHC RDW Plt Count MPV Immature Gran % Neutrophils % Lymphocytes % Monocytes % Eosinophils % Basophils % Nucleated RBC % Absolute Neutrophils Absolute Lymphocytes Absolute Monocytes Absolute Eosinophils Absolute Basophils ABG Sample Site ABG pH ABG pCO2 ABG pO2 ABG HCO3 ABG Total CO2 ABG O2 Saturation ABG Base Excess VBG Lactate 0.9 Oxygen Liter Flow Sodium 152 H Potassium 3.5 Chloride 113 H Carbon Dioxide 29.1 Anion Gap 9.9 BUN 41 H Creatinine 1.6 H D Est GFR (CKD-EPI 2020) 46.64 Glucose 87 Calcium 8.2 L Phosphorus Magnesium Total Bilirubin 0.9 AST 66 H ALT 19 Alkaline Phosphatase 197 H Troponin I < 50 NT-Pro-B Natriuret Pep 1034 H Total Protein 6.0 L Albumin 1.9 L 11/19/22 11/19/22 05:20 05:20 WBC 14.59 H RBC 3.81 L Hgb 11.5 L Hct 34.5 L MCV 91 MCH 30.2 MCHC 33.3 RDW 14.4 H Plt Count 193 MPV 10.8 Immature Gran % 0.7 Neutrophils % 87.9 Lymphocytes % 3.1 Monocytes % 8.1 Eosinophils % 0.1 Basophils % 0.1 Nucleated RBC % 0.3 Absolute Neutrophils 12.82 H Absolute Lymphocytes 0.45 L Absolute Monocytes 1.18 H Absolute Eosinophils 0.01 Absolute Basophils 0.01 ABG Sample Site ABG pH ABG pCO2 ABG pO2 ABG HCO3 ABG Total CO2 ABG O2 Saturation ABG Base Excess VBG Lactate Oxygen Liter Flow Sodium Potassium Chloride Carbon Dioxide Anion Gap BUN Creatinine Est GFR (CKD-EPI 2020) Glucose Calcium Phosphorus 3.8 Magnesium 2.4 Total Bilirubin AST ALT Alkaline Phosphatase Troponin I NT-Pro-B Natriuret Pep Total Protein Albumin Time Spent with Patient Time Spent with Patient: 35-49 minutes Time was spent: preparing to see the patient(eg.review tests), obtaining and/or reviewing separately otained hiistory, ordering medications,tests, procedures, referring, communicating with other health transition of care specialist, indepentently interpreting results and care coordination
[2022-11-19] MEDS: Furosemide 40 MG/4 ML VIAL IVP (12:09)
--- NOTE | 2022-11-19 13:45 | PT.INTREAT ---
Date of service: 11/19/22 Time of Service: 12:40 PT Notes Visit Reasons: AcuteHypoxicRespiratoryFailure,Multifocalpneumonia Inpatient Physical Therapy Treatment Note [facility] Date: 11/20/22 PRECAUTIONS: Fall, standard, activity as tolerated, chest tube in place SUBJECTIVE: Patient supine in bed, agreeable to therapy OBJECTIVE: [] PAIN: THEREX: Patient participates in active assisted movements of the upper and lower extremities, as well as gentle stretching of the bilateral achilles tendons for 3x 30 seconds. Requires repeated verbal and tactile cues to remain engaged in therapy. ASSESSMENT: Patient tolerates therapy well PLAN: continue strengthening per plan of care TREATMENT CODE/TIME: 50290 ther ex 25 minutes beginning at 12:40
--- NOTE | 2022-11-19 14:15 | W.PM.PROGNOT ---
Date of Service Date of service: 11/19/22 Time of Service: 10:30 Assessment and Plan Assessment and plan (1) Acute respiratory failure with hypoxia: Status: Acute Assessment and plan: Multifactorial, due to pneumothorax, aspiration pneumonitis, as well as re-expansion pulmonary edema. The patient is now DNR/DNI and, given pneumothorax, we really should try to avoid CPAP/BiPAP. We will continue to manage volume status, treat pneumonia, and attempt to wean O2 as tolerated. Defer management of chest tube to general surgery. (2) Pneumothorax on left: Status: Acute Assessment and plan: S/p chest tube. Defer management to general surgery (3) Intraabdominal hemorrhage: Status: Acute Assessment and plan: Peripepatic and R iliacus/iliopsoas hemorrhage while on therapeutic anticoagulation. S/p xfusion 4 units pRBCs, clinically stabilized. General surgery following. COntinue to hold anticoagulation and monitor H/H. (4) Hemorrhagic shock: Status: Resolved Assessment and plan: In setting of a perihepatic and a R ileacus/iliopsoas hematoma while on anticoagulation. We will continue to monitor H/H. He has not required vasopressors today. H/H is stable. Will continue to hold anticoagulation. (5) Sepsis: Status: Resolved Assessment and plan: Original septic shock resolved. When shock recurred, it was due to acute bleeding. Current leucocytosis is reactive due to a combination of intraabdominal bleeding and aspiration pneumonitis. (6) Anemia: Status: Acute Assessment and plan: Acute on chronic anemia of acute blood loss due to above. S/p xfusion of 4 units of pRBCs. H/H has actually improved. (7) FREDDY (acute kidney injury): Status: Acute Assessment and plan: improving, in setting of shock. Continue to monitor now that we have begun to diurese. (8) Aspiration pneumonitis: Status: Acute Assessment and plan: Continue Zosyn, nebs, I/S, acapella. (9) Hypoglycemia: Status: Resolved Assessment and plan: Monitor with resumption of TFs. (10) Asthma-COPD overlap syndrome: Status: Resolved Assessment and plan: I do not think that this is exacerbated right now. Holding off of steroids at this time. Continue bronchodilators. (11) Parkinsonism: Status: Chronic Assessment and plan: Continue Sinemet via Dobhoff tube (12) Tardive dyskinesia: Status: Chronic Assessment and plan: continue tetrabenazine (13) Hx pulmonary embolism: Status: Chronic Assessment and plan: Continue to hold anticoagulation due to intraabdominal hemorrhage. SCDs. NO evidence of PE on CTA. (14) DVT prophylaxis: Status: Acute Assessment and plan: As above SCDs. Hold chemical DVT ppx in setting of intraabdominal hemorrhage. (15) Discharge planning issues: Status: Acute Assessment and plan: Made DNR/DNI today in a family meeting. Keep in the ICU. Total Critical Care Time 60 minutes. Subjective Subjective Interval history since last seen: Patient was seen with the family at bedside. He was on 12L of O2 by NC and was transitioned to humidified heated high flow NC, initially on 50 L, 70% FiO2. By noon, however, he was requiring 100% FiO2. CXR did not show a change. This seems to have improved post administration of furosemide. The Latest FiO2 is 88% with O2 sat of 97%. Mr Urias states that he was in pain, not feeling short of breath, denied dizziness, nausea, reported feeling thirsty. Per my conversation with the family, the patient was made DNR/DNI. They would like for us to continue treatment of the pneumothorax, pneumonia, continue tube feeding. Exam Narrative Exam Narrative: General: middle-aged male who is difficult to understand, A&Ox1-2 HEENT: EOMI, dry MM, has a Dobhoff tube Heart: RRR, no m/r/g Lungs: Bilateral breath sounds; rales; Chest tube L lung to suction Abdomen: soft, nontender, nondistended Extremities: no edema BLEs Objective Last Vital Signs Temp 36.9 C 11/19/22 12:00 Pulse 94 H 11/19/22 12:00 Resp 34 H 11/19/22 12:00 BP 120/63 11/19/22 12:00 Pulse Ox 89 L 11/19/22 12:00 Laboratory Results - last 24 hr 11/18/22 11/18/22 11/18/22 21:10 22:35 22:35 WBC RBC Hgb 10.9 L Hct 32.2 L MCV MCH MCHC RDW Plt Count MPV Immature Gran % Neutrophils % Lymphocytes % Monocytes % Eosinophils % Basophils % Nucleated RBC % Absolute Neutrophils Absolute Lymphocytes Absolute Monocytes Absolute Eosinophils Absolute Basophils ABG Sample Site Left Radial ABG pH 7.35 ABG pCO2 47 H ABG pO2 65 L ABG HCO3 26 ABG Total CO2 24 ABG O2 Saturation 92 L ABG Base Excess 0 VBG Lactate Oxygen Liter Flow 15 Sodium Potassium Chloride Carbon Dioxide Anion Gap BUN Creatinine Est GFR (CKD-EPI 2020) Glucose Calcium Phosphorus Magnesium Total Bilirubin AST ALT Alkaline Phosphatase Troponin I < 50 NT-Pro-B Natriuret Pep 1034 H Total Protein Albumin 11/18/22 11/19/22 11/19/22 22:35 05:20 05:20 WBC 14.59 H RBC 3.81 L Hgb 11.5 L Hct 34.5 L MCV 91 MCH 30.2 MCHC 33.3 RDW 14.4 H Plt Count 193 MPV 10.8 Immature Gran % 0.7 Neutrophils % 87.9 Lymphocytes % 3.1 Monocytes % 8.1 Eosinophils % 0.1 Basophils % 0.1 Nucleated RBC % 0.3 Absolute Neutrophils 12.82 H Absolute Lymphocytes 0.45 L Absolute Monocytes 1.18 H Absolute Eosinophils 0.01 Absolute Basophils 0.01 ABG Sample Site ABG pH ABG pCO2 ABG pO2 ABG HCO3 ABG Total CO2 ABG O2 Saturation ABG Base Excess VBG Lactate 0.9 Oxygen Liter Flow Sodium 152 H Potassium 3.5 Chloride 113 H Carbon Dioxide 29.1 Anion Gap 9.9 BUN 41 H Creatinine 1.6 H D Est GFR (CKD-EPI 2020) 46.64 Glucose 87 Calcium 8.2 L Phosphorus Magnesium Total Bilirubin 0.9 AST 66 H ALT 19 Alkaline Phosphatase 197 H Troponin I NT-Pro-B Natriuret Pep Total Protein 6.0 L Albumin 1.9 L 11/19/22 05:20 WBC RBC Hgb Hct MCV MCH MCHC RDW Plt Count MPV Immature Gran % Neutrophils % Lymphocytes % Monocytes % Eosinophils % Basophils % Nucleated RBC % Absolute Neutrophils Absolute Lymphocytes Absolute Monocytes Absolute Eosinophils Absolute Basophils ABG Sample Site ABG pH ABG pCO2 ABG pO2 ABG HCO3 ABG Total CO2 ABG O2 Saturation ABG Base Excess VBG Lactate Oxygen Liter Flow Sodium Potassium Chloride Carbon Dioxide Anion Gap BUN Creatinine Est GFR (CKD-EPI 2020) Glucose Calcium Phosphorus 3.8 Magnesium 2.4 Total Bilirubin AST ALT Alkaline Phosphatase Troponin I NT-Pro-B Natriuret Pep Total Protein Albumin Objective Narrative Objective Narrative: CXR: 1. ? No significant change in appearance of likely small left apical pneumothorax, with left lower chest tube in place. 2. ? Worsening right lower lung zone consolidation and stable left lower lung zone consolidation. Multi-Disciplinary Checklist Lines/Tubes CENTRAL LINE: yes, Central Line Day#: 2 ARTERIAL LINE: no PENA: yes, Pena Day#: 14 ENDOTRACHEAL TUBE: no ICU Maintenance GLUCOSE 140-180mg/dL: no, Reason/Intervention: monitoring for hypoglycemia; on tube feeding NUTRITION AT GOAL: no, Reason/Intervention: on tube feeding PRESSURE ULCER: no RESTRAINTS: no ANTIBIOTICS(if yes, consider Stewardship): Yes Social Issues FAMILY UPDATED: yes PT/OT: no, Reason/Intervention: Not clinically appropriate GOALS/DISPOSITION/MANAGEMENT ACCOUNTANT: yes CODE STATUS: DNR/DNI Prophylaxis DVT PROPHYLAXIS: yes GI PROPHYLAXIS: yes, Indication: may be able to be d/c'ed now that he is no longer NPO Time Spent with Patient Time Spent with Patient: >50 minutes Time was spent: preparing to see the patient(eg.review tests), obtaining and/or reviewing separately otained hiistory, ordering medications,tests, procedures, referring, communicating with other health residential child care counselor, indepentently interpreting results, counseling the patient and care coordination
--- NOTE | 2022-11-19 15:06 | PT.INDS ---
Date of service: 11/14/22 PT Notes Visit Reasons: AcuteHypoxicRespiratoryFailure,Multifocalpneumonia Physical Therapy Inpatient Discharge Summary Date: 11/14/2022 Date of service: 11/07/2022 through 11/14/2022 This is a clinical summary of care provided for the duration of dates listed above. No charge was made in the completion of this documentation. Referring Doctor: Natali Hopper MD PT Orders: PT CONSULT: Limited ability Precautions: Fall. Standard. Activity as tolerated. Patient Profile/Admitting Diagnosis:? Iggy is a 67-year-old male who presented to the ED on 11/05/2022 due to shortness of breath and generalized weakness.? He is admitted to the ICU for management of sepsis, acute respiratory failure with hypoxia and hypercarbia, community-acquired pneumonia, and a small, acute lactic acidosis and for co-morbidities listed below. PMHX: All Active Problems?(Updated 11/05/22 @ 18:36 by Natali Hopper MD) Hyperglycemia (Acute) Sepsis (Acute) Hx pulmonary embolism (Chronic) Elevated CPK (Acute) Acute lactic acidosis (Acute) Acute respiratory failure with hypoxia and hypercarbia (Acute) Community acquired pneumonia (Acute) Leukocytosis (Acute) Hypoalbuminemia (Acute) FREDDY (acute kidney injury) (Acute) Parkinsonism (Chronic) Urinary incontinence (Acute) Pseudobulbar affect (Acute) Unintentional weight loss (Acute) Chronic anticoagulation (Chronic) Tardive dyskinesia (Chronic) Cervicalgia (Acute) Anxiety with somatic features (Chronic) chest wall pain, globus sensation, abdominal pain, shortness of breath Asthma-COPD overlap syndrome (Acute) GERD (gastroesophageal reflux disease) (Chronic) Depressive disorder (Chronic) Confabulation (Chronic) Memory loss (Acute) Non compliance w medication regimen (Chronic) Chest wall pain, chronic (Acute) Pharyngoesophageal dysphagia (Acute) Globus sensation (Acute) Vitamin D deficiency (Acute) Hypocalcemia (Chronic) Pulmonary embolism (Chronic 12/20/18) CT Report, Started on EliquisConstipation (Chronic) Cognitive impairment (Chronic) [facility] progress note: 11/13/18, mild to moderate Chronic alcoholic pancreatitis (Acute) Umbilical hernia (Acute) Tubular adenoma of colon (Acute 05/04/09) 01/19/15 NO adenoma on repeat colonoscopy Malignant neoplasm of unspecified part of right bronchus or lung (Acute 10/04/17) Dyspepsia (Acute 04/26/16) Chronic obstructive pulmonary disease (Chronic 03/22/17) moderately severe 03/07/17:? FEV1/FVC 1.82/3.48, 52% (+) Bronchodilator response compared to PFT in 2007, 800cc decline in FVC & 460cc decline in FEV1 Anxiety (Chronic 09/17/14) Alcohol abuse, in remission (Acute 04/26/16) Medical History? Abdominal pain Adjustment disorder with anxiety (06/29/17) Alcohol abuse (11/27/12) Anxiety Dyspepsia Epigastric pain History of sore throat Malignant neoplasm of right lung [facility] Palliative care patient Pancreatitis, acute Rash of face Thrush Tubular adenoma of colon Weight loss Surgical History? Colonoscopy (01/19/15) Also had a decompress colonoscopy with Dr Haresh Vásquez at [facility] on 06/09/18 for significant colon distention seen on CT scan, no prep? done,therapeutic, diagnositc, still due for repeat on 01/19/25 History of lung biopsy History of surgery on upper extremity left Status post cataract extraction and insertion of intraocular lens of left eye (11/05/18) Social History/Home Situation: Lives with parents who are his primary caregivers.? Home with services 5 times a week.? States that he did not use an assistive device prior to admission. Equipment Owned/DME: FWW,? SPC Subjective: NT. See most recent [employer] notes. Objective: General Observation: NT. See most recent [employer] notes. Mental Status: NT. See most recent [employer] notes. Pain: NT. See most recent [employer] notes. Vital Signs: NT. See most recent [employer] notes. ROM: Right Upper Extremity: ? Shoulder Flexion WFL. Shoulder abduction WFL. Elbow flexion WFL. Wrist flexion WFL. Functional opening and closing of hand WFL. Left Upper Extremity:? Shoulder Flexion WFL. Shoulder abduction WFL. Elbow flexion WFL. Wrist flexion WFL. Functional opening and closing of hand WFL. Right Lower Extremity: Hip flexion WFL. Hip abduction WFL. Knee flexion WFL. Ankle dorsiflexion WFL. Ankle plantarflexion WFL. Left Lower Extremity: Hip flexion WFL. Hip abduction WFL. Knee flexion WFL. Ankle dorsiflexion WFL. Ankle plantarflexion WFL. Strength: Right Upper Extremity: Shoulder flexors 4-/5. Shoulder abductors 4-/5. Elbow flexors 4-/5. Elbow extensors 4-/5. Faculty Instructor strong. Left Upper Extremity: Shoulder flexors 4-/5. Shoulder abductors 4-/5. Elbow flexors 4-/5. Elbow extensors 4-/5. Faculty Instructor strong. Right Lower Extremity: Hip flexors 4-/5. Hip abductors 4-/5. Knee flexors 4-/5. Knee extensors 4-/5. Ankle dorsiflexors 4-/5. Ankle plantarflexors 4-/5. Left Lower Extremity: Hip flexors 4-/5. Hip abductors 4-/5. Knee flexors 4-/5. Knee extensors 4-/5. Ankle dorsiflexors 4-/5. Ankle plantarflexors 4-/5. Bed Mobility/Transfers: Sit to stand with contact guard assist with FWW Stand to sit with contact guard assist with FWW Bed to reclining chair with contact guard assist with FWW Reclining chair to bed with contact guard assist with FWW Gait: Instructed patient with level surface ambulation of 300 feet requiring contact guard assist.? Yuli decreased.? Step height decreased.? Step length decreased.? Giat shuffled.? Thoracic kyphosis.? Mild SOB resolved with rest.? Balance: Static Sitting: Good Dynamic Sitting: Good Static Standing: Fair Dynamic Standing: Fair Assessment: Needed to be trasferred to ICU today for close medical monitoring of respiratory function decline. Patient presents with clinical signs and symptoms consistent with current/admitting diagnoses that have resulted to mobility limitations, gait instability, generalized weakness, and overall ADL decline as demonstrated by the following impairment level findings: 1.? Decreased strength to B UE/LE major muscle groups 2.? Impaired sitting/standing balance 3.? Impaired activity tolerance 4.? Shortness of breath Impairments are contributing to the following functional limitations: 1.? Decline in bed mobility skills 2.? Decline in transfer skills 3.? Difficulty with ambulation without assistive device and physical assistance 4.? Increased completion time for mobility ADL performance 5.? Increased risk for falls 6.? Difficulty with managing steps alone safely Goals: Goals X1 week 1. Supine-Sit independent NOT MET 2. Sit-Supine independent NOT MET 3. Sit-Stand independent NOT MET 4. Stand-Sit independent with FWW NOT MET 5. Bed-Chair independent with FWW NOT MET 6. Chair-Bed independent with FWW NOT MET 7. Independent gait on level surface with use of FWW for at least 300 feet without report of pain nor dyspnea NOT MET 8. Independent stair negotiation while holding onto B rails for at least 5 steps without report of pain nor dyspnea NOT MET 9. Independent with home exercise program NOT MET 10. Good static and dynamic standing balance/tolerance NOT MET Plan of Care/Treatment Plan: Re-evaluate under ICU level of care once a referral from hospitalist is received. DISCHARGE RECOMMENDATIONS: [] ? Home with no services [] [X] ? Home with services.? Patient will benefit from home health PT services in order to progress mobility level using least restrictive assistive ambulatory device, assess home safety, identify additional equipment needs, and establish a functional maintenance program that will increase ability of patient to remain at home. [] ? Home with outpatient PT [] [] ? SNF for continued rehabilitation [] [] ? [facility] [] [] ? SNF versus LTC based on ability to participate and progress [] TREATMENT CODE/TIME: ALDO Thank you for the opportunity to participate in the care of this patient. Kristel Dhillon PT, DPT, CLT [facility] [place], [place]
--- NOTE | 2022-11-19 15:46 | W.ANESVAS ---
Arterial Line Placement Date Performed: 11/19/22 Procedure Time: 15:30 Procedure Location: Intensive Care Unit ( 221) Requesting Provider: Natali Hopper Timeout Performed: Yes Sedation Given (Indicate Dose Given): No Sedation given Patient Mental Status: Awake Sterility: Hand Hygiene, Surgical Cap, Surgical Mask, Sterile Gloves, Sterile Drape/Sheet, Eye Protection and Chlorhexidine Laterality: Right Insertion Site: Radial Arterial Line Catheter: 20G Arrow Arterial Line Procedure: Vessel accessed with catheter over needle, Guidewire placed with ease and Guidewire removed Dressing: Tegaderm Applied and BioPatch Applied Ultrasound: Used to abel site Number of Attempts (See previous attempts in note section): 3 Procedure Tolerated: No Complications and Patient tolerated well Procedure Outcome: Successful Performed By: Mj Israel
[2022-11-19] MEDS: ACETAMINOPHEN 1,000 MG/100 ML BTL 400 MG IVPB (19:30)
[2022-11-19] MEDS: Normal Saline Flush 10 ML SYR IVP ×2 (19:31→20:39)
[2022-11-19] MEDS: Pantoprazole 40 MG VIAL IVP (19:31)
[2022-11-19 20:41] LABS: HCT 31.5 % (40.0-50.0); HGB 10.4 g/dL (13.5-17.5); MCH 30.7 pg (27.0-33.0); MCV 93 fL (80-95); MPV 10.4 fL (8.0-11.0); Platelet Count 168 10^3/uL (130-400); RBC 3.39 10^6/uL (4.36-5.78); RDW 14.5 % (11.8-14.1); RDW-SD 47.8 fL
[2022-11-19] MEDS: Lactated Ringers 1,000 ML 1000 ML IV (20:41)
[2022-11-19] MEDS: Mirtazapine 15 MG TAB 45 MG PO (21:17)
[2022-11-20] VITALS (88 sets, daily range): BP systolic 83–103; BP diastolic 45–57; PULSE 63–91; RESP 5–41; TEMP 34–38.4; O2SAT 69–99
--- NOTE | 2022-11-20 | DI.RAD_ITS ---
Exam(s) XR PORTABLE CHEST AP EXAM: XR PORTABLE CHEST AP CLINICAL HISTORY: post PICC line removal, also ?Dobhoff vs R neck li. TECHNIQUE: 2D digital imaging was performed. COMPARISON: CR,XR XR PORTABLE CHEST AP from 11/20/2022 FINDINGS: Single AP portable view. Performed 11/20/2022 at 9:57 a.m. Large caliber left chest tube is unchanged in position. Dobbhoff catheter in the proximal stomach ag ain noted. Left subclavian central line distal tip is in the right atrium. Right PICC line has been removed. Heart size unchanged but shifted into the left hemithorax with volume loss on the left side. Left ma instem bronchus cutoff sign is again noted. Significant left lung volume loss. Pneumothorax above t his level evident. The opposite-right lung remains clear and there is no pleural fluid on the right side. IMPRESSION: Significant deterioration in the appearance of the left hemithorax with shift of the heart and medias tinum structures into the left hemithorax due to significant volume loss in the left lung with a cuto ff sign in the left mainstem bronchus.Persistent pneumothorax also seen on the left. Right lung remains clear. Discussed by phone with hospitalist DATA REPOSITORY: RADIATION DOSE DELIVERED:
[2022-11-20] MEDS: ACETAMINOPHEN 1,000 MG/100 ML BTL 400 MG IVPB ×2 (04:17→20:25)
[2022-11-20] MEDS: MORPHine 2 MG/ML SYR IVP ×5 (04:17→20:25)
[2022-11-20] MEDS: Albuterol 2.5 MG/3 ML INH SOLN VIAL UPD ×3 (04:50→18:27)
[2022-11-20] MEDS: Normal Saline Flush 10 ML SYR IVP ×3 (05:23→20:25)
[2022-11-20] MEDS: LORazepam 2 MG/ML VIAL 1 MG IVP ×2 (05:23→20:24)
[2022-11-20 06:04] LABS: Abs Immature Grans 0.06 10^3/uL (0.0-0.06); Absolute Basophil Count 0.01 10^3/uL (0.0-0.2); Absolute Eosinophil Count 0.03 10^3/uL (0.0-0.7); Absolute Lymphocyte Count 0.69 10^3/uL (1.2-3.4); Absolute Monocyte Count 1.14 10^3/uL (0.1-0.8); Absolute Neutrophil Count 10.83 10^3/uL (1.2-6.7); Basophils % 0.1; Eosinophils % 0.2; HCT 33.5 % (40.0-50.0); HGB 10.8 g/dL (13.5-17.5); Immature Grans % 0.5; Lymphocytes % 5.4; MCH 30.3 pg (27.0-33.0); MCHC 32.2 % (32.0-36.0); MCV 94 fL (80-95); MPV 10.8 fL (8.0-11.0); Monocytes % 8.9; Neutrophils % 84.9; Platelet Count 163 10^3/uL (130-400); RBC 3.57 10^6/uL (4.36-5.78); RDW 14.6 % (11.8-14.1); RDW-SD 49.1 fL; WBC 12.76 10^3/uL (4.4-10.8)
[2022-11-20 06:27] LABS: Anion Gap 7.4 mmol/L (3-11); BUN 35 mg/dL (7-18); CO2 31.6 mmol/L (21.0-32.0); CREATININE 1.3 mg/dL (0.70-1.30); Calcium 8.1 mg/dL (8.5-10.1); Chloride 112 mmol/L (98-107); Estimated GFR 59.84 (mL/min/1.73m2); Glucose 114 mg/dL (74-106); Magnesium 2.4 mg/dL (1.8-2.4); Potassium 3.5 mmol/L (3.5-5.1); Sodium 151 mmol/L (136-145)
[2022-11-20 07:31] LABS: BE 7 mmol/L (-2-3); HCO3 31 mmol/L (22-26); pCO2 47 mmHg (35-45); pH 7.44 (7.35-7.45); pO2 84 mmHg (80-105); sO2 97 % (95-98); tCO2 29 mmol/L (23-27)
[2022-11-20 07:33] LABS: FIO2 94 %; FIO2L 50 L; Site Right Radial
[2022-11-20] MEDS: Budesonide/Formoterol 160/4.5 6 GM 60 PUFF INH IH ×2 (07:42→20:27)
[2022-11-20] MEDS: Tiotropium Bromide-Respimat 10 PUFF INH 2 PUFF IH (07:42)
[2022-11-20] MEDS: Albuterol/Ipratropium 3 ML UPD VIAL UPD ×4 (07:42→20:25)
[2022-11-20] MEDS: FLUoxetine 10 MG TAB 20 MG NG (08:00)
--- NOTE | 2022-11-20 08:52 | DI.VRAD_ITS ---
Addendum created by Damián Guevara MD on 11/20/2022 9:00:15 AM EDT: THIS REPORT CONTAINS FINDINGS THAT MAY BE CRITICAL TO PATIENT CARE. The findings were verbally communicated via telephone conference with Dr. Hopper at 8:59 AM EDT on 11/20/2022. The findings were acknowledged and understood. The catheter on the right is outside the patient. There is also a right PICC line which has a stable loop in it. This was present on the prior study Initial report created on 11/20/2022 8:52:36 AM EDT: PROCEDURE INFORMATION: Exam: XR Chest Exam date and time: 11/20/2022 8:29 AM Age: 67 years old Clinical indication: Other: Hypoxia, pneumothorax TECHNIQUE: Imaging protocol: Radiologic exam of the chest. Views: 1 view. COMPARISON: CR XR PORTABLE CHEST AP 11/19/2022 8:07 AM FINDINGS: Tubes, catheters and devices: An enteric feeding tube is present, with its tip located in the stomach in good position. Stable left MediPort terminates in the right atrium. Stable thoracostomy tube in the left lung base.. There is catheter on the right . If it is in the patient it is ascending in the neck. Recommend replacement. Lungs: A significant opacification has developed in the left hemithorax over the last 24 hours. The heart and mediastinum are shifted to the left. This may be due to atelectasis. There is a cut off sign in the left mainstem bronchus.. Pleural spaces: No definite pneumothorax. There may be moderate left pleural effusion Heart/Mediastinum: Cardiac silhouette not seen well due to surrounding opacity Bones/joints: Unremarkable. IMPRESSION: 1. A significant opacification has developed in the left hemithorax over the last 24 hours. The heart and mediastinum are shifted to the left. This may be due to atelectasis. There is a cut off sign in the left mainstem bronchus.. 2. There is catheter on the right . If it is in the patient it is ascending in the neck. Recommend replacement. 3. Stable left MediPort terminates in the right atrium. 4. Stable thoracostomy tube in the left lung base.. 5 possible moderate left pleural effusion Dictated and Authenticated by: Damián Guevara MD. Ordering:MARK Smith MD
--- NOTE | 2022-11-20 09:31 | PGE_ITS ---
Date of Service Date of service: 11/20/22 Time of Service: 09:31 Assessment and Plan Assessment and plan (1) Acute respiratory failure with hypoxia: Status: Acute Assessment and plan: Multifactorial, worse due to apparent mucuous plugging which the patient has not been able to clear independently and is not expected to be able to clear. In addition, he has a pneumothorax, aspiration pneumonitis, but his re-expansion pulmonary edema appears to have resolved. I have discussed this with general surgery. The patient is DNI and, should he get intubated for bronchoscopy, has a low chance of being able to be weaned off from the ventilator due to his respiratory muscle weakness. I agree that this would most likely result in him ending up a tracheostomy and, should he survive this, placement in an LTAC facility, which the family is expressing to me that the patient would not want. The patient is not giving us clear guidance other than the statements I'd listed in the subjective portion of the note, which to me do not sound like he is ready to give up. I will follow up with the family this afternoon. There is a palliative care meeting scheduled for tomorrow. The patient is now DNR/DNI and, given pneumothorax, we really should try to avoid CPAP/BiPAP. I have added guaifenesin and have asked RT to attempt using Volara. It did appear to provide some benefit this afternoon. Defer management of chest tube to general surgery. Prognosis is poor. (2) Mucus plug in respiratory tract: Status: Acute Assessment and plan: As above (3) Pneumothorax on left: Status: Acute Assessment and plan: S/p chest tube. Defer management to general surgery (4) Intraabdominal hemorrhage: Status: Acute Assessment and plan: Peripepatic and R iliacus/iliopsoas hemorrhage while on therapeutic anticoagulation. S/p xfusion 4 units pRBCs, clinically stabilized. COntinue to hold anticoagulation and monitor H/H. (5) Hemorrhagic shock: Assessment and plan: In setting of a perihepatic and a R ileacus/iliopsoas hematoma while on anticoagulation. We will continue to monitor H/H, which has remained stable. Will continue to hold anticoagulation. (6) Pharyngoesophageal dysphagia: Status: Acute Assessment and plan: NPO. Lost Dobhoff tube. Will discuss with family. (7) Sepsis: Status: Resolved Assessment and plan: Original septic shock resolved. When shock recurred, it was due to acute bleeding. Current leucocytosis is reactive due to a combination of intraabdominal bleeding and aspiration pneumonitis. (8) Anemia: Status: Acute Assessment and plan: Acute on chronic anemia of acute blood loss due to above. S/p xfusion of 4 units of pRBCs. H/H has continued to improve. (9) FREDDY (acute kidney injury): Status: Acute Assessment and plan: improving, in setting of shock. Mear baseline. Continue to monitor (10) Aspiration pneumonitis: Status: Acute Assessment and plan: Continue Zosyn, nebs, I/S, acapella. NPO; Dobhoff tube is now out. Would only replace it if that's what the family indicates they want us to do in the follow up conversation this afternoon. (11) Hypoglycemia: Status: Resolved Assessment and plan: Monitor Q4 hrs since NPO/TFs are not able to be delivered. (12) Asthma-COPD overlap syndrome: Status: Resolved Assessment and plan: I do not think that this is exacerbated right now. Holding off of steroids at this time. Continue bronchodilators. (13) Parkinsonism: Status: Chronic Assessment and plan: I will talk to pharmacy about dissolvable sinemet. (14) Tardive dyskinesia: Status: Chronic Assessment and plan: continue tetrabenazine (15) Hx pulmonary embolism: Status: Chronic Assessment and plan: Continue to hold anticoagulation due to intraabdominal hemorrhage. SCDs. NO evidence of PE on CTA. (16) DVT prophylaxis: Status: Acute Assessment and plan: As above SCDs. Hold chemical DVT ppx in setting of intraabdominal hemorrhage. (17) Discharge planning issues: Status: Acute Assessment and plan: DNR/DNI. Keep in the ICU. Discussed with Glenis Hilario, Maria Luisa. Total Critical Care Time 80 minutes. Subjective Subjective Interval history since last seen: Mr Urias became hypotensive and more hypoxic overnight (circa 4 am). T max 38.1. The patient is now on humidified heated high flow CN at 50 L and 94% FiO2 saturating 93%. ABG on these settings this am: 7.44, pCO2 47, pO2 84, Bicarb 31, O2 sat 97%. His BP improved to 104/41 with a MAP of 58 by art line. He endorses L-sided CP, denies dizziness, SOB, nausea. He is thirsty and hungry. I discussed the case with the [facility] radiologist Dr Feliciano: she feels this morning's CXR looks a lot worse - his L lung appears to be atelectatic, possibly due to mucuous plugging. She does not feel that his pneumothorax is worse. She does note a coiled PICC line in RUQ and some sort of a catheter in the region of his right neck. Repeat CXR is pending post-removal of PICC and relocation of the Dobhoff tube to the right to see if that was the catheter seen in the region of the right neck. I spoke with Dr Glass who agrees with me that the patient would not be a candidate for a bronch at this time, especially since he is a DNI, and that if he were to be intubated, he would likely be difficult to extubate, requiring a tracheostomy. He is not a candidate for a PEG tube at this time. If he were to survive this hospitalization, he would need to go an LTAC facility and his quality of life would be very poor. I plan to discuss this with the family. When I discussed with him that he is not improving/actually getting worse despite our maximum measures within his goals of care, he indicated that he would want us to continue therapy. We spoke about how I would call his family. I then had a discussion with the family. They were comfortable with the idea of comfort measures, but when we came back to talk about it to Iggy, he made conflicting statements. One of them was that he didn't want to in this place. This was followed up by I don't want to at all. I reinforced with Iggy that he was not getting better and was, in fact dying, and that we could either continue care as is until he does or focus on comfort measures. He did not verbalize any further decisions, but I think he understood the two options. I did discuss with family that, in order for him to even be transferred to a different hospital, intubation was be required, and they did not want that. The family has a meeting with palliative care tomorrow morning. His Dobhoff tube has become clogged to the point that it cannot be aspirated from, so it has now been taken out. Per RT, after the use of the volara device, the patient is actually now down to 45L and 60% FiO2 saturating 93%. Exam Narrative Exam Narrative: General: middle-aged male who is difficult to understand, A&Ox2 HEENT: EOMI, dry MM, has a Dobhoff tube at the time of the exam, L subclavian CVL in place. Heart: RRR, no m/r/g Lungs: Bilateral breath sounds; no rales today, Chest tube L lung to suction Abdomen: soft, nontender, nondistended Extremities: no edema BLEs Objective Last Vital Signs Temp 37.7 C H 11/20/22 08:52 Pulse 69 11/20/22 08:52 Resp 22 11/20/22 08:52 BP 99/56 L 11/20/22 07:00 Pulse Ox 92 11/20/22 08:52 Laboratory Results - last 24 hr 11/19/22 11/19/22 11/20/22 20:32 20:32 05:18 WBC 10.90 H RBC 3.39 L Hgb Cancelled 10.4 L Hct Cancelled 31.5 L MCV 93 MCH 30.7 MCHC 33.0 RDW 14.5 H Plt Count 168 MPV 10.4 Immature Gran % Neutrophils % Lymphocytes % Monocytes % Eosinophils % Basophils % Nucleated RBC % Absolute Neutrophils Absolute Lymphocytes Absolute Monocytes Absolute Eosinophils Absolute Basophils ABG Sample Site ABG pH ABG pCO2 ABG pO2 ABG HCO3 ABG Total CO2 ABG O2 Saturation ABG Base Excess Oxygen Liter Flow FiO2 Sodium 151 H Potassium 3.5 Chloride 112 H Carbon Dioxide 31.6 Anion Gap 7.4 BUN 35 H Creatinine 1.3 Est GFR (CKD-EPI 2020) 59.84 Glucose 114 H Calcium 8.1 L Magnesium 2.4 11/20/22 11/20/22 05:18 07:25 WBC 12.76 H RBC 3.57 L Hgb 10.8 L Hct 33.5 L MCV 94 MCH 30.3 MCHC 32.2 RDW 14.6 H Plt Count 163 MPV 10.8 Immature Gran % 0.5 Neutrophils % 84.9 Lymphocytes % 5.4 Monocytes % 8.9 Eosinophils % 0.2 Basophils % 0.1 Nucleated RBC % 0.0 Absolute Neutrophils 10.83 H Absolute Lymphocytes 0.69 L Absolute Monocytes 1.14 H Absolute Eosinophils 0.03 Absolute Basophils 0.01 ABG Sample Site Right Radial ABG pH 7.44 ABG pCO2 47 H ABG pO2 84 ABG HCO3 31 H ABG Total CO2 29 H ABG O2 Saturation 97 ABG Base Excess 7 H Oxygen Liter Flow 50 FiO2 94 Sodium Potassium Chloride Carbon Dioxide Anion Gap BUN Creatinine Est GFR (CKD-EPI 2020) Glucose Calcium Magnesium Objective Narrative Objective Narrative: CXR #1: 1. ? A significant opacification has developed in the left hemithorax over the last 24 hours. The heart and mediastinum are shifted to the left. This may be due to atelectasis. There is a cut off sign in the left mainstem bronchus.. 2. ? There is catheter on the right . If it is in the patient it is ascending in the neck. Recommend replacement. 3. ? Stable left MediPort terminates in the right atrium. 4. ? Stable thoracostomy tube in the left lung base.. 5? possible moderate left pleural effusion CXR #2: 1. ? The right PICC line has been removed.. . 2. ? There is no longer a tube overlying the right upper lobe or soft tissues of the right neck.. 3. ? The enteric tube terminates in the stomach but may be coiled in the hypopharynx.. 4. ? Stable opacification in the left hemithorax. 5. ? Stable left thoracostomy tube in the left lung base. Time Spent with Patient Time Spent with Patient: >50 minutes Time was spent: preparing to see the patient(eg.review tests), obtaining and/or reviewing separately otained hiistory, ordering medications,tests, procedures, referring, communicating with other health respiratory care program director, indepentently interpreting results, counseling the patient and care coordination
--- NOTE | 2022-11-20 10:04 | DI.RAD_ITS ---
Exam(s) XR PORTABLE CHEST AP EXAM: XR PORTABLE CHEST AP CLINICAL HISTORY: left PTX. TECHNIQUE: 2D digital imaging was performed. COMPARISON: CR,XR XR PORTABLE CHEST AP from 11/19/2022 FINDINGS: Single AP portable view. There is significant deterioration in the appearance of the left hemithorax. There is collapse of the left lung with shift of heart and mediastinal structures into the left hemit horax and there is left mainstem bronchus cutoff sign evident. Also left pneumothorax evident above the collapsed lung. The position of the large caliber chest tube in the lower pleural space on the left side is unchanged . A Dobbhoff catheter is again noted in the proximal stomach. The right PICC line is now noted to b e looped and the distal tip has retracted into the proximal SVC. Left Port-A-Cath distal tip is in t he right atrium. Right lung remains clear. IMPRESSION: Significant left hemithoracic deterioration as described above. Suspect obstruction of the left main stem bronchus with volume loss in the left lung accounting for the new large left hemithoracic densit y and shift of midline structures towards the left. There is also left-sided pneumothorax. Right lung remains clear. Discussed by phone with hospitalist DATA REPOSITORY: RADIATION DOSE DELIVERED:
[2022-11-20] MEDS: PIPERACILLIN/TAZO 4.5 GM in Normal Saline 100 ML IVPB ×2 (10:08→21:23)
--- NOTE | 2022-11-20 10:12 | DI.VRAD_ITS ---
Addendum created by Damián Guevara MD on 11/20/2022 10:15:45 AM EDT: THIS REPORT CONTAINS FINDINGS THAT MAY BE CRITICAL TO PATIENT CARE. The findings were verbally communicated via telephone conference with ANNETTA Pierce at 10:15 AM EDT on 11/20/2022. The findings were acknowledged and understood. Initial report created on 11/20/2022 10:12:05 AM EDT: PROCEDURE INFORMATION: Exam: XR Chest Exam date and time: 11/20/2022 9:57 AM Age: 67 years old Clinical indication: Other: Post picc line removal also ? dobhoff vs R neck li TECHNIQUE: Imaging protocol: Radiologic exam of the chest. Views: 1 view. COMPARISON: XR PORTABLE CHEST AP 11/20/2022 8:29 AM FINDINGS: Tubes, catheters and devices: The right PICC line has been removed.. . There is no longer a tube overlying the right upper lobe or soft tissues of the right neck.. The enteric tube terminates in the stomach but may be coiled in the hypopharynx.. Stable left thoracostomy tube in the left lung base. Lungs: Stable opacification in the left hemithorax. Pleural spaces: Possible left pleural effusion Heart/Mediastinum: Cardiac silhouette not visualized Vasculature: Stable left subclavian line Bones/joints: Stable IMPRESSION: 1. The right PICC line has been removed.. . 2. There is no longer a tube overlying the right upper lobe or soft tissues of the right neck.. 3. The enteric tube terminates in the stomach but may be coiled in the hypopharynx.. 4. Stable opacification in the left hemithorax. 5. Stable left thoracostomy tube in the left lung base. Dictated and Authenticated by: Damián Guevara MD. Ordering:KIM Hurst MD
[2022-11-20] MEDS: guaiFENesin 200 MG/10 ML CUP PO ×2 (11:33→19:30)
--- NOTE | 2022-11-20 12:00 | W.PM.PROGNOT ---
Date of Service Date of service: 11/20/22 Time of Service: 12:00 Assessment and Plan Assessment and plan (1) Mucus plug in respiratory tract: Status: Acute Assessment and plan: Patient's chest x-ray today shows mucous plugging of the bronchus. X-ray shows complete whiteout of the left lung. In order to facilitate a bronchoscopy in this patient he would need to be intubated. He does not have the muscle strength/respiratory capacity/protein stores to clear this plug on his own. If we do intubate this patient he would never come off the ventilator and would need to be trached and being on permanent ventilator home. He would continue to slowly waste away. Given his neurocognitive defects, parkinsonian symptoms, poor nutrition, and baseline status, he would be bedridden, on a permanent ventilator, and with a feeding tube. He would have very poor quality of life I did discuss this with Dr. Hopper. She is discussing this with family. I do not feel that further procedures are in this patient's best interest. I think he should be made a comfort cares and allow him to pass with dignity. Surgery will follow peripherally only for care of the chest tube (2) At high risk for skin breakdown: Status: Acute (3) Pneumothorax on left: Status: Acute (4) Retroperitoneal bleeding: Status: Acute (5) Acute renal failure: Status: Acute (6) Aspiration pneumonitis: Status: Acute (7) Acute respiratory failure with hypoxia: Status: Acute (8) Frailty syndrome in geriatric patient: Status: Acute (9) History of lung cancer: Status: Acute (10) Anemia: Status: Acute (11) Hx pulmonary embolism: Status: Chronic (12) Acute respiratory failure with hypoxia and hypercarbia: Status: Acute (13) Community acquired pneumonia: Status: Resolved (14) Leukocytosis: Status: Acute (15) Hypoalbuminemia: Status: Acute (16) Parkinsonism: Status: Chronic (17) Urinary incontinence: Status: Acute (18) Pseudobulbar affect: Status: Acute (19) Unintentional weight loss: Status: Acute (20) Chronic anticoagulation: Status: Chronic (21) Tardive dyskinesia: Status: Chronic (22) Anxiety with somatic features: Status: Chronic (23) Asthma-COPD overlap syndrome: Status: Resolved (24) GERD (gastroesophageal reflux disease): Status: Chronic (25) Depressive disorder: Status: Chronic (26) Pharyngoesophageal dysphagia: Status: Acute (27) Constipation: Status: Chronic Qualifiers: Constipation type: slow transit constipation Qualified Code(s): K59.01 - Slow transit constipation (28) Cognitive impairment: Status: Chronic (29) Malignant neoplasm of unspecified part of right bronchus or lung: Status: Acute (30) Chronic obstructive pulmonary disease: Status: Chronic Qualifiers: COPD type: unspecified COPD Qualified Code(s): J44.9 - Chronic obstructive pulmonary disease, unspecified (31) Alcohol abuse, in remission: Status: Acute Subjective Subjective Interval history since last seen: Patient is nonverbal today. Patient's course of the past [address] Hopper and with his nurse and respiratory therapist. Labs and x-rays are reviewed today as well. Patient has been tolerating tube feedings Exam Const Other: unchanged. There is no pneumothorax on x-ray today. There is no air leak on chest tube. He has had about 50 cc of serous drainage out in the last 24 hours. Objective Last Vital Signs Temp 37.7 C H 11/20/22 08:52 Pulse 76 11/20/22 10:11 Resp 17 11/20/22 10:11 BP 99/56 L 11/20/22 07:00 Pulse Ox 95 11/20/22 10:11 Laboratory Results - last 24 hr 11/19/22 11/19/22 11/20/22 20:32 20:32 05:18 WBC 10.90 H RBC 3.39 L Hgb Cancelled 10.4 L Hct Cancelled 31.5 L MCV 93 MCH 30.7 MCHC 33.0 RDW 14.5 H Plt Count 168 MPV 10.4 Immature Gran % Neutrophils % Lymphocytes % Monocytes % Eosinophils % Basophils % Nucleated RBC % Absolute Neutrophils Absolute Lymphocytes Absolute Monocytes Absolute Eosinophils Absolute Basophils ABG Sample Site ABG pH ABG pCO2 ABG pO2 ABG HCO3 ABG Total CO2 ABG O2 Saturation ABG Base Excess Oxygen Liter Flow FiO2 Sodium 151 H Potassium 3.5 Chloride 112 H Carbon Dioxide 31.6 Anion Gap 7.4 BUN 35 H Creatinine 1.3 Est GFR (CKD-EPI 2020) 59.84 Glucose 114 H Calcium 8.1 L Magnesium 2.4 11/20/22 11/20/22 05:18 07:25 WBC 12.76 H RBC 3.57 L Hgb 10.8 L Hct 33.5 L MCV 94 MCH 30.3 MCHC 32.2 RDW 14.6 H Plt Count 163 MPV 10.8 Immature Gran % 0.5 Neutrophils % 84.9 Lymphocytes % 5.4 Monocytes % 8.9 Eosinophils % 0.2 Basophils % 0.1 Nucleated RBC % 0.0 Absolute Neutrophils 10.83 H Absolute Lymphocytes 0.69 L Absolute Monocytes 1.14 H Absolute Eosinophils 0.03 Absolute Basophils 0.01 ABG Sample Site Right Radial ABG pH 7.44 ABG pCO2 47 H ABG pO2 84 ABG HCO3 31 H ABG Total CO2 29 H ABG O2 Saturation 97 ABG Base Excess 7 H Oxygen Liter Flow 50 FiO2 94 Sodium Potassium Chloride Carbon Dioxide Anion Gap BUN Creatinine Est GFR (CKD-EPI 2020) Glucose Calcium Magnesium Time Spent with Patient Time Spent with Patient: >50 minutes Time was spent: preparing to see the patient(eg.review tests), referring, communicating with other health home care liaison and indepentently interpreting results
--- NOTE | 2022-11-20 13:37 | RESPIRATORY ---
RT provided oral care for patient with dental swabs, lemon-glycerin swabs, and chapstick. Pt was repositioned to lay on his lateral right side.
--- NOTE | 2022-11-20 17:15 | DI.RAD_ITS ---
Exam(s) XR PORTABLE CHEST AP EXAM: XR PORTABLE CHEST AP CLINICAL HISTORY: ngt placement, feeding tube. TECHNIQUE: 2D digital imaging was performed. COMPARISON: CR,XR XR PORTABLE CHEST AP from 11/20/2022 FINDINGS: Single AP portable view. Performed 11/20/2022 at 17:38 p.m. compared to multiple prior films There is now improved aeration of the left lung when compared to prior same date. Still significant area of infiltrate in left lower lobe and shift of midline structures towards the left. Small approx imately 10 percent left pneumothorax. Small amount of left pleural fluid. Right lung remains clear. The Dobbhoff tube has been replaced by an NG tube. Its distal tip appears to be in the region of the gastric fundus. Position of the left chest tube is unchanged. Distal tip of the left subclavian central line is in the upper right atrium. IMPRESSION: Some left-sided improvement when compared to earlier same date, probably related to evacuation of bro nchial tree contents. There is still significant infiltrate in left lower lobe, including superior s egment. Small left pleural effusion. Also small left pneumothorax again noted. Right lung remains clear. Other findings as above. Called by myself to ICU. DATA REPOSITORY: RADIATION DOSE DELIVERED:
--- NOTE | 2022-11-20 18:12 | DI.VRAD_ITS ---
PROCEDURE INFORMATION: Exam: XR Chest Exam date and time: 11/20/2022 5:38 PM Age: 67 years old Clinical indication: Other: S/P ng t placement, feeding tube TECHNIQUE: Imaging protocol: Radiologic exam of the chest. Views: 1 view. COMPARISON: XR PORTABLE CHEST AP 11/20/2022 9:57 AM FINDINGS: Tubes, catheters and devices: Left subclavian central venous catheter remains in place with its tip now seen at the level of the cavoatrial junction. A chest tube is again seen in place at the left lung base and nasogastric tube traverses the esophagus and is coiled at the level of the gastric fundus. Lungs: There is some interval improvement in the dense consolidation seen previously throughout the mid to lower left lung field with patchy parenchymal opacities persisting in the mid and lower left lung field and persistent left-sided volume loss with leftward shift of mediastinal contents evident. Right lung remains grossly clear. Pleural spaces: Left basilar effusion cannot be excluded. Heart/Mediastinum: Heart size is within normal limits and vessel margins are sharply defined throughout the right lung field. Bones/joints: No acute osseous lesions are detected. IMPRESSION: Some interval improvement in the dense consolidation seen throughout the mid and lower left lung field previously with persistent airspace disease and left-sided volume loss evident as above. Tubes and lines in position as above. Dictated and Authenticated by: Gage Curtis MD. Ordering:KIM Hurst MD
[2022-11-20] MEDS: Pantoprazole 40 MG VIAL IVP (20:24)
[2022-11-20] MEDS: Mirtazapine 15 MG TAB 45 MG PO (20:29)
--- NOTE | 2022-11-20 21:52 | PT.INTREAT ---
Date of service: 11/20/22 Time of Service: 10:18 PT Notes Visit Reasons: AcuteHypoxicRespiratoryFailure,Multifocalpneumonia Inpatient Physical Therapy Treatment Note [facility] Date: 11/20/22 PRECAUTIONS: Fall, standard, activity as tolerated, chest tube in place SUBJECTIVE: Patient supine in bed, agreeable to therapy OBJECTIVE: PAIN: THEREX: Patient participates in active assisted upper and lower extremity movements, requires multiple verbal and tactile cues to remain engaged. ASSESSMENT: Patient appears to tolerate therapy well PLAN: Continue strengthening as patient is able TREATMENT CODE/TIME: 61501 Ther Ex 14 minutes beginning at 10:18
[2022-11-21] VITALS (16 sets, daily range): BP systolic 112; BP diastolic 46; PULSE 65–89; RESP 16–32; TEMP 34–37.3; O2SAT 79–97
[2022-11-21] MEDS: MORPHine 2 MG/ML SYR IVP ×3 (00:14→02:17)
[2022-11-21] MEDS: LORazepam 2 MG/ML VIAL 1 MG IVP ×2 (00:23→18:53)
[2022-11-21] MEDS: Normal Saline Flush 10 ML SYR IVP ×5 (02:17→20:40)
[2022-11-21] MEDS: guaiFENesin 200 MG/10 ML CUP PO ×2 (02:20→05:16)
[2022-11-21 05:49] LABS: Abs Immature Grans 0.07 10^3/uL (0.0-0.06); Absolute Basophil Count 0.01 10^3/uL (0.0-0.2); Absolute Eosinophil Count 0.18 10^3/uL (0.0-0.7); Basophils % 0.1; Eosinophils % 1.3; HCT 32.5 % (40.0-50.0); HGB 10.5 g/dL (13.5-17.5); Immature Grans % 0.5; MCH 30.8 pg (27.0-33.0); MCHC 32.3 % (32.0-36.0); MCV 95 fL (80-95); Neutrophils % 86.1; Platelet Count 150 10^3/uL (130-400); RBC 3.41 10^6/uL (4.36-5.78); RDW 14.4 % (11.8-14.1); RDW-SD 48.3 fL; WBC 13.74 10^3/uL (4.4-10.8)
[2022-11-21 05:54] LABS: Absolute Lymphocyte Count 0.82 10^3/uL (1.2-3.4); Absolute Monocyte Count 0.82 10^3/uL (0.1-0.8); Absolute Neutrophil Count 11.83 10^3/uL (1.2-6.7)
[2022-11-21 06:04] LABS: Anion Gap 1.8 mmol/L (3-11); BUN 24 mg/dL (7-18); CO2 33.2 mmol/L (21.0-32.0); CREATININE 0.8 mg/dL (0.70-1.30); Calcium 7.5 mg/dL (8.5-10.1); Chloride 108 mmol/L (98-107); Glucose 141 mg/dL (74-106); Magnesium 2.3 mg/dL (1.8-2.4); Potassium 3.5 mmol/L (3.5-5.1); Sodium 143 mmol/L (136-145)
--- NOTE | 2022-11-21 06:59 | W.PULMCC ---
General Date of Service Date of service: 11/21/22 Time of Service: 07:00 Reason for Admission to ICU: Aspiration Respiratory failure Hypotension Assessment and Plan Assessment and plan (1) Intraabdominal hemorrhage: Status: Acute (2) Hemorrhagic shock: (3) Mucus plug in respiratory tract: Status: Acute (4) Pneumothorax on left: Status: Acute (5) History of lung cancer: Status: Acute (6) Acute respiratory failure with hypoxia: Status: Acute (7) Acute lactic acidosis: Status: Resolved (8) Leukocytosis: Status: Acute (9) Anemia: Status: Acute (10) Hx pulmonary embolism: Status: Chronic (11) Hyperkalemia: Status: Acute (12) Acute renal failure: Status: Acute (13) Hyperglycemia: Status: Resolved (14) Hypoalbuminemia: Status: Acute (15) Parkinsonism: Status: Chronic (16) Tardive dyskinesia: Status: Chronic (17) Asthma-COPD overlap syndrome: Status: Resolved (18) GERD (gastroesophageal reflux disease): Status: Chronic (19) Confabulation: Status: Chronic (20) Memory loss: Status: Acute Assessment and plan: This is a 67 yo admitted to the ICU for septic shock in the setting of aspiration pneumonia. On 11/17/22 he had an acute decompensation including severe hypotension and was found to have a intra-abdominal hemorrhage resulting in hemorrhagic shock. He was rescusitated with blood, given Kcentra and his Hb and blood pressure has improved. He does not appear to be bleeding actively at the moment. His pneumothorax is improved both on CXR and exam of the chest tube atrium. This can be trialed on [facility] today. His O2 requirements have improved from the weekend and he is on 45/45 HFNC. There really is not a good role for bronchoscopy for the purpose of mucus clearance in a non intubated person, so would not recommend this. His FREDDY has also significant improved. 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 He has a poor prodrome for any extended mechanical ventilation, so the DNR/DNI code change is certainly appropriate as his driving issues are chronic and not reversible. I have been told this morning that he will have a comfort driven plan moving forward and these orders have been placed by palliative care. Comfort measures orders have been reviewed and seem very appropriate. I will be available if any issues or questions arise. Recommendations I&O: Intake & Output 11/18/22 11/19/22 11/20/22 11/21/22 23:59 23:59 23:59 23:59 Intake Total 1930.250 / 2030.250 1826 / 1952 951 / 951 904 / 904 Output Total 3030 / 3580 5250 / 5405 1320 / 1320 600 / 600 Balance -1098.750 / -1548.750 -3424 / -3453 -369 / -369 304 / 304 Weight 58.6 kg 56.1 kg 56.5 kg 58.3 kg Date of Last Bowel Movement: 11/17/22 Code Status: Resuscitation Status DNR/DNI Subjective Critical and life-threatening events over the past 24 hours: Over the weekend Iggy had significant mucus plugging resulting in left lobar collapse. This has significantly improved with airway clearance. He does not have any complaints today. Exam Narrative Exam Narrative: Gen: NAD, normal respiratory effort, thin HENT: PERRL, No JVD Chest: No respiratory distress, normal appearance of chest, crackles at bases but with good air movement bilaterally. Chest tube in place and to suction. There are is no air leak. Heart: regular rate and rhythym, no murmurs, rubs or gallops Abdomen: Non-distended, soft, non tender Extremities: No clubbing, edema, cyanosis, rashes Neuro: non focal Psych: cooperative, appropriate mental affect Most Recent VS/Results Last Vital Signs Temp 37.3 C 11/21/22 03:59 Pulse 66 11/21/22 03:59 Resp 17 11/21/22 05:30 BP 112/46 L 11/21/22 03:59 Pulse Ox 88 L 11/21/22 05:30 Laboratory Results - last 24 hr 11/20/22 11/21/22 11/21/22 07:25 05:21 05:21 WBC 13.74 H RBC 3.41 L Hgb 10.5 L Hct 32.5 L MCV 95 MCH 30.8 MCHC 32.3 RDW 14.4 H Plt Count 150 MPV 11.0 Immature Gran % 0.5 Neutrophils % 86.1 Lymphocytes % 6.0 Monocytes % 6.0 Eosinophils % 1.3 Basophils % 0.1 Nucleated RBC % 0.0 Absolute Neutrophils 11.83 H Absolute Lymphocytes 0.82 L Absolute Monocytes 0.82 H Absolute Eosinophils 0.18 Absolute Basophils 0.01 ABG Sample Site Right Radial ABG pH 7.44 ABG pCO2 47 H ABG pO2 84 ABG HCO3 31 H ABG Total CO2 29 H ABG O2 Saturation 97 ABG Base Excess 7 H Oxygen Liter Flow 50 FiO2 94 Sodium 143 Potassium 3.5 Chloride 108 H Carbon Dioxide 33.2 H Anion Gap 1.8 L BUN 24 H Creatinine 0.8 Est GFR (CKD-EPI 2020) 96.40 Glucose 141 H Calcium 7.5 L Magnesium 2.3 Review of Systems All systems reviewed & are unremarkable except as noted in HPI and below Time spent with patient Time spent in Critical Care: 30 Time spent in Critical care included: Chart review, Documenting critically ill care, Time at immediate bedside and Discussing critically ill care with other medical staff
[2022-11-21] MEDS: LORazepam 2 MG/ML VIAL (08:04)
--- NOTE | 2022-11-21 09:10 | PGE_ITS ---
Date of Service Date of service: 11/21/22 Time of Service: 09:10 Assessment and Plan Assessment and plan (1) Acute respiratory failure with hypoxia: Status: Acute Assessment and plan: Multifactorial, due to mucuous plugging , pneumothorax, aspiration pneumonitis. Made comfort measures. Will provide O2 therapy for comfort only (2) Mucus plug in respiratory tract: Status: Acute Assessment and plan: As above (3) Pneumothorax on left: Status: Acute Assessment and plan: S/p chest tube. Chest tube remains to suction on comfort measures. (4) Intraabdominal hemorrhage: Status: Acute Assessment and plan: Peripepatic and R iliacus/iliopsoas hemorrhage while on therapeutic anticoagulation. S/p xfusion 4 units pRBCs, clinically stabilized. Anticoagulation has been definitively discontinued. (5) Hemorrhagic shock: Assessment and plan: In setting of a perihepatic and a R ileacus/iliopsoas hematoma while on anticoagulation. As above (6) Pharyngoesophageal dysphagia: Status: Acute Assessment and plan: NPO. NGT removed (7) Sepsis: Status: Resolved Assessment and plan: Original septic shock resolved. When shock recurred, it was due to acute bleeding. Current leucocytosis is reactive due to a combination of intraabdominal bleeding and aspiration pneumonitis. (8) Anemia: Status: Acute Assessment and plan: Acute on chronic anemia of acute blood loss due to above. S/p xfusion of 4 units of pRBCs. We will no longer be monitoring labs on comfort measures. (9) FREDDY (acute kidney injury): Status: Acute Assessment and plan: improving, in setting of shock. We are no longer monitoring labs on comfort measures. (10) Aspiration pneumonitis: Status: Acute Assessment and plan: D/c abx. Focus on comfort measures only. NGT out. (11) Hypoglycemia: Status: Resolved Assessment and plan: We will no longer monitor sugars on comfort measures. (12) Asthma-COPD overlap syndrome: Status: Resolved Assessment and plan: prn bronchodilators only. Focus on comfort measures. (13) Parkinsonism: Status: Chronic Assessment and plan: On comfort measures. (14) Tardive dyskinesia: Status: Chronic Assessment and plan: NPO. Therapy d/c'ed. (15) Hx pulmonary embolism: Status: Chronic Assessment and plan: Continue to hold anticoagulation due to intraabdominal hemorrhage. (16) DVT prophylaxis: Status: Acute Assessment and plan: D/c DVT ppx given comfort measures (17) Discharge planning issues: Status: Acute Assessment and plan: DNR/DNI. Transitioned to comfort measures. Transfer out of the ICU. Discussed with Julio Cesar Arreola, Maria Luisa. Subjective Subjective Interval history since last seen: Palliative care meeting this morning with family: the patient was made comfort measures. The patient is asleep at the time of my visit. Given that he is now on comfort measures, I did not wake him up. Exam Narrative Exam Narrative: General: middle-aged male comfortably asleep in bed HEENT: eyes closed; NGT out Heart: Not auscultated since the patient was asleep Lungs: Nonlabored breathing on a regular nasal canula Abdomen: nondistended Extremities: Covered in blankets Objective Last Vital Signs Temp 37.3 C 11/21/22 03:59 Pulse 66 11/21/22 03:59 Resp 17 11/21/22 05:30 BP 112/46 L 11/21/22 03:59 Pulse Ox 88 L 11/21/22 05:30 Laboratory Results - last 24 hr 11/21/22 11/21/22 05:21 05:21 WBC 13.74 H RBC 3.41 L Hgb 10.5 L Hct 32.5 L MCV 95 MCH 30.8 MCHC 32.3 RDW 14.4 H Plt Count 150 MPV 11.0 Immature Gran % 0.5 Neutrophils % 86.1 Lymphocytes % 6.0 Monocytes % 6.0 Eosinophils % 1.3 Basophils % 0.1 Nucleated RBC % 0.0 Absolute Neutrophils 11.83 H Absolute Lymphocytes 0.82 L Absolute Monocytes 0.82 H Absolute Eosinophils 0.18 Absolute Basophils 0.01 Sodium 143 Potassium 3.5 Chloride 108 H Carbon Dioxide 33.2 H Anion Gap 1.8 L BUN 24 H Creatinine 0.8 Est GFR (CKD-EPI 2020) 96.40 Glucose 141 H Calcium 7.5 L Magnesium 2.3 Time Spent with Patient Time Spent with Patient: 25-34 minutes Time was spent: preparing to see the patient(eg.review tests), obtaining and/or reviewing separately otained hiistory, referring, communicating with other health youth career specialist, indepentently interpreting results and care coordination
[2022-11-21] MEDS: Scopolamine 1 MG/3 DAYS PATCH TD (09:23)
[2022-11-21] MEDS: Glycopyrrolate 0.2 MG/1 ML VIAL IVP (09:59)
--- NOTE | 2022-11-21 10:49 | PDOC.CMPRO ---
Date of service: 11/21/22 Time of Service: 10:50 Care Management Progress Note Progress Note Text Progress Note Text: S/O: Iggy appears to be sleeping when CM attempted to meet with him. Per provider, he transitioned to comfort measures this morning and will remain at [facility] for end of life care. A: Iggy is a 67 year old male admitted to [facility] on 11/05/22 for acute hypoxic respiratory failure. P:? Iggy transitioned to comfort care this morning and will remain at [facility] for end of life care. CM will continue to support patient and his family during this difficult time.
--- NOTE | 2022-11-21 11:19 | W.PALPGNOTE ---
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 His sister and brother were both there also. They came in at 7 AM to meet with me. All were in agreement that at this point Iggy would want comfort measures only. The 5 of us went in to speak with Iggy. His eyes did not open. He did not acknowledge that we were in the room but we did talk about keeping him comfortable. I then spoke with Dr. Hopper who agreed that I could change him to comfort care and also write the orders. Immediately he needed morphine because he was definitely uncomfortable and in pain. Nursing appropriately weaned different therapies. I came back later in the day and Iggy was curled up in the position but looked comfortable. I would expect he will soon. (7) Pseudobulbar affect: Status: Acute (8) Parkinsonism: Status: Chronic Subjective Subjective Interval history since last seen: Nurses report that Iggy is in pain. They are very concerned that his care in this aggressive manner is futile. Providers have been speaking to the family about moving towards comfort care. Dr. Kathy Damon asked me to see Iggy today in her absence. Exam Narrative Exam Narrative: I walked in the room and Iggy did follow me with his eyes but is aphasic. His forehead was scrunched. He was not tachycardic. Breaths were often and shallow. I did talk with him about comfort care. He shook his head yes when I talked about talking with his family. He agreed that they want the best for him. Objective Last Vital Signs Temp 99.1 F 11/21/22 03:59 Pulse 66 11/21/22 03:59 Resp 17 11/21/22 05:30 BP 112/46 L 11/21/22 03:59 Pulse Ox 88 L 11/21/22 05:30 Laboratory Results - last 24 hr 11/21/22 11/21/22 05:21 05:21 WBC 13.74 H RBC 3.41 L Hgb 10.5 L Hct 32.5 L MCV 95 MCH 30.8 MCHC 32.3 RDW 14.4 H Plt Count 150 MPV 11.0 Immature Gran % 0.5 Neutrophils % 86.1 Lymphocytes % 6.0 Monocytes % 6.0 Eosinophils % 1.3 Basophils % 0.1 Nucleated RBC % 0.0 Absolute Neutrophils 11.83 H Absolute Lymphocytes 0.82 L Absolute Monocytes 0.82 H Absolute Eosinophils 0.18 Absolute Basophils 0.01 Sodium 143 Potassium 3.5 Chloride 108 H Carbon Dioxide 33.2 H Anion Gap 1.8 L BUN 24 H Creatinine 0.8 Est GFR (CKD-EPI 2020) 96.40 Glucose 141 H Calcium 7.5 L Magnesium 2.3
[2022-11-21] MEDS: Pantoprazole 40 MG VIAL IVP (20:40)
--- NOTE | 2022-11-21 22:55 | W.PM.DDS ---
Date of service: 11/21/22 Time of Service: 22:56 Discharge Plan Discharge Details Reason For Visit: AcuteHypoxicRespiratoryFailure,Multifocalpneumonia Admit Date/Time: 11/05/22 11:52 Admit Provider: Natali Hopper Attending Provider: Natali Hopper Primary Care Provider: Glenn Ybarra [facility] Course Hospital Course: This is a 67-year-old gentleman with significant Parkinson disease and dementia who was admitted with septic shock and acute respiratory failure with hypoxemia secondary to pneumonia with treatment aggressively for all of these problems slowly resolving his septic shock but he had complications of a retroperitoneal bleed requiring 4 units of packed red blood cells and then chest tube for pleural effusion to help with his hypoxemia which resulted in pneumothoraces. 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 He was not improving with aggressive treatment of the reversible problems with his respiratory status not stabilizing and continued to have problems with unstable vital signs though he did not return to shock with low blood pressure. He was having decreased urinary output and fluid resuscitation was complicated by fluid overload and worsening respiratory status. On day he he was on comfort measures and comfortably with his family not at bedside but family to be called and reported to. He was expected to this evening with his failing health and interventions were moved to only comfort rather than trying to treat his issues. The body will be released to the home. Family will be called by nursing staff. He at 10:23 being pronounced at 10:24 by the nurse. Home Meds and New Rx's Prescriptions: Discontinued clonazepam 1 mg tablet 1 mg PO BID Boost Max Men 0.09 gram- 0.5 kcal/mL liquid 325 ml PO DAILY Qty: 7800 12RF tetrabenazine 25 mg tablet 25 mg PO BID Qty: 180 3RF neomycin-polymyxin B-dexameth Ointment 1 applic ophthalmic (eye) [facility] Patient Comments: Uses for both eyes albuterol sulfate [Proventil HFA] 90 mcg/actuation HFA aerosol inhaler 1 inh inhalation ONCE Spiriva Respimat 2.5 mcg/actuation mist 2 puff inhalation DAILY Qty: 4 8RF fluoxetine 20 mg tablet 20 mg PO DAILY Qty: 90 3RF budesonide-formoterol [Symbicort] 160-4.5 mcg/actuation HFA aerosol inhaler 2 inh Inhalation BID Qty: 3 3RF hydroxyzine HCl 25 mg tablet 25 mg PO BID PRN (Reason: anxiety) Qty: 180 2RF Patient Comments: has been out for a few days Rx Instructions: take as needed for anxiety cholecalciferol (vitamin D3) 25 mcg (1,000 unit) capsule 1,000 unit PO DAILY Qty: 90 3RF thiamine HCl (vitamin B1) 100 mg tablet 100 mg PO DAILY Qty: 90 3RF Rx Instructions: Rx #2 after boost. apixaban 5 mg tablet 5 mg PO BID Qty: 180 3RF pantoprazole 40 mg tablet,delayed release (DR/EC) 40 mg PO DAILY Qty: 90 3RF mirtazapine 45 mg Tablet 45 mg PO HS No Action (DME) Adult diapers, 1-2 per day Medium See Rx Instructions .Route .MEDSUPPLY Qty: 28 11RF Rx Instructions: As directed (DME) OptiChamber Advantage 1 EACH spacer 1 ea Miscellaneous DIRECTED 0RF Discharge Data Cause of : Respiratory failure with hypoxia Discharge Comment: [place] [facility] [place] [facility]. Discharge Physician: Teo Chan Discharge Sum: Prov Provider Primary care physician: Glenn Ybarra Admitting clinician: Natali Hopper Attending physician on admission: Natali Hopper Consults: 11/05/22 11:51 Occupational Therapy Consult [CONS] Routine Consulting Provider: Sera Monae Priority: Non-Urgent Reson for Non-Urgent Priority: Limited Ability Physical Therapy Consult [CONS] Routine Consulting Provider: Luis Fernando Camacho Priority: Non-Urgent Reson for Non-Urgent Priority: Limited Ability 11/05/22 12:06 Palliative Care Consult [CONS] Routine Consultation Status:: Follow-up needed Clarification:: Manage/follow per spec. Reason for consult:: Parkinsonism, dementia, discuss goals of care Speech Therapy Consult [CONS] Routine Consulting Provider: [facility] Speech Langauge Pathology Type of Consult: Swallow Check all that apply: High Risk choke/asp/PNA 11/05/22 18:24 Grinder Dresser Consult [CONS] Routine Consulting Provider: [facility] Nutrition Consultation Status:: Follow-up needed Clarification:: Manage/follow per spec. Reason for consult:: Diabetes management, diabetes education 11/06/22 11:24 Respiratory Therapy Consult [CONS] Routine Consultation Status:: Follow-up needed Clarification:: Manage/follow per spec. Reason for consult:: pneumonia, asthma-COPD hx 11/11/22 15:26 Nutrition Consult [CONS] Stat Consulting Provider: [facility] Nutrition Consultation Status:: Follow-up needed Clarification:: Manage/follow per spec. Reason for consult:: TPN 11/12/22 09:44 Nutrition Consult [CONS] Routine Consulting Provider: [facility] Nutrition Consultation Status:: Contact made by Clarification:: Manage/follow per spec. Reason for consult:: Aspiration 11/14/22 08:00 Surgical Consult [CONS] Routine Consulting Provider: Sasha Leach Consultation Status:: Follow-up needed Clarification:: Manage/follow per spec. Reason for consult:: Aspiration risk; PICC rec'ing TPN; ? G - tube After neuro consult which is pending 11/14/22 18:55 Neurology Consult [CONS] Routine Consulting Provider: Sue Valladares Consultation Status:: Follow-up needed Clarification:: Manage/follow per spec. Reason for consult:: Established patient with worsening tardive dyskinesia, now severe aspiration risk - NPO w TPN; surg consult re peg 11/15/22 09:07 Speech Therapy Consult [CONS] Routine Consulting Provider: [facility] Speech Langauge Pathology Type of Consult: Swallow Check all that apply: High Risk choke/asp/PNA Other Reason for Consult: follow up for dysphagia 11/16/22 08:29 Respiratory Therapy Consult [CONS] Routine Consultation Status:: Follow-up needed Clarification:: Manage/follow per spec. Reason for consult:: aspiration pneumonia 11/18/22 11:34 Physical Therapy Consult [CONS] Routine Consulting Provider: Antonio Escoto,InPatient Priority: Non-Urgent 11/21/22 07:32 Announcer Consult [CONS] Routine Consultation Status:: Follow-up needed Clarification:: Manage/follow per spec. Reason for consult:: pt on comfort measure Discharge Sum: Diag Contributing Factors (1) Acute respiratory failure with hypoxia: (2) Mucus plug in respiratory tract: (3) Pneumothorax on left: (4) Intraabdominal hemorrhage: (5) Hemorrhagic shock: (6) Pharyngoesophageal dysphagia: (7) Sepsis: (8) Anemia: (9) FREDDY (acute kidney injury): (10) Aspiration pneumonitis: (11) Hypoglycemia: (12) Asthma-COPD overlap syndrome: (13) Parkinsonism: (14) Tardive dyskinesia: (15) Hx pulmonary embolism: (16) DVT prophylaxis: (17) Discharge planning issues: Discharge Sum: Summary Date and Time Admission Date: 11/05/2305/03/23 11:52 Date of : 11/21/22 Time of : 22:23 Summary Details: Patient was failing with respiratory failure and hypoxemia not responded treatment for pneumonia having pneumothoraces which were draining but not resolving and advanced Parkinson disease with dementia status post retroperitoneal bleed with anemia and has been transfused 4 units of packed blood cells without active bleeding at the time of . 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 Additional Data Confirmation of as documented by pronouncing clinician: no pulse, no respirations, no heart sounds and pupils fixed and dilated Family: contacted Attending/PCP notified?: No Attending Physician: Natali Clements Was code activated?: No Autopsy requested?: No worker's compensation claims examiner notified?: No Organ bank notified?: Yes Advance directives: Yes Hospice patient?: No
--- NOTE | 2022-11-22 00:08 | NUR.NOTE ---
Nursing Note: This RN and colleague entered patient room at approx 22:22 and discovered that patient appeared to not be breathing. Palpated for pulses and found none. I listened with stethoscope for a full minute and heard no heartbeat nor breathing. Pronounced patient at 22:24. Nursing Nuclear Physician and MD informed. This Rn spoke with patient's mother Vee on the telephone to tell her he had passed. Vee requested that we contact [facility]. Organ bank contacted and patient was not a candidate for donation due to medical history. [facility] contacted - they will [place] the [place] [facility].Nuclear Physician aware. Patient cleaned and prepared and [place] [facility] [place] approx 23:45.
== END 2022-11-21 23:45 | disposition expired | DRG 871 ==
LOC: ER 13:38 → ICU 16:23 → MS 11-07 12:46 → ICU 11-21 12:16
PROVIDERS: Family Medicine; Internal Medicine; Nurse Practitioner Family; Student in an Organized Health Care Education/Training Program; Surgery; Admitting Provider Internal Medicine; Emergency Provider Emergency Medicine; PCP Family Medicine; Visit Provider Internal Medicine
DX: A41.9 Sepsis, unspecified organism (principal); J18.9 Pneumonia, unspecified organism; J96.01 Acute respiratory failure with hypoxia; J96.02 Acute respiratory failure with hypercapnia; J69.0 Pneumonitis due to inhalation of food and vomit; J93.0 Spontaneous tension pneumothorax; J44.0 Chronic obstructive pulmonary disease with (acute) lower respiratory infection; N17.9 Acute kidney failure, unspecified; K86.0 Alcohol-induced chronic pancreatitis; C34.11 Malignant neoplasm of upper lobe, right bronchus or lung; J44.1 Chronic obstructive pulmonary disease with (acute) exacerbation; F05 Delirium due to known physiological condition; E51.2 Wernicke's encephalopathy; G21.11 Neuroleptic induced parkinsonism; J90 Pleural effusion, not elsewhere classified; T17.890A Other foreign object in other parts of respiratory tract causing asphyxiation, initial encounter; R65.21 Severe sepsis with septic shock; D62 Acute posthemorrhagic anemia; R74.8 Abnormal levels of other serum enzymes; G24.01 Drug induced subacute dyskinesia; Z86.711 Personal history of pulmonary embolism; Z51.5 Encounter for palliative care; F41.8 Other specified anxiety disorders; R41.3 Other amnesia; R54 Age-related physical debility; F10.11 Alcohol abuse, in remission; Z79.01 Long term (current) use of anticoagulants; R41.89 Other symptoms and signs involving cognitive functions and awareness; E88.09 Other disorders of plasma-protein metabolism, not elsewhere classified; F48.2 Pseudobulbar affect; R63.4 Abnormal weight loss; Z68.20 Body mass index [BMI] 20.0-20.9, adult; K21.9 Gastro-esophageal reflux disease without esophagitis; E55.9 Vitamin D deficiency, unspecified; R13.14 Dysphagia, pharyngoesophageal phase; F32.A Depression, unspecified; K59.09 Other constipation; F17.290 Nicotine dependence, other tobacco product, uncomplicated; F12.90 Cannabis use, unspecified, uncomplicated; R73.9 Hyperglycemia, unspecified; F02.80 Dementia in other diseases classified elsewhere, unspecified severity, without behavioral disturbance, psychotic disturbance, mood disturbance, and anxiety; Z92.3 Personal history of irradiation; E87.70 Fluid overload, unspecified; E16.2 Hypoglycemia, unspecified; R10.9 Unspecified abdominal pain; E87.5 Hyperkalemia; R57.1 Hypovolemic shock; R58 Hemorrhage, not elsewhere classified; Z66 Do not resuscitate
CPT/HCPCS: 32551; 76604; 36558; 32556; 36620; 36410; 36415; 36430; 36569; 36592; 51702; 71045; 71275; 76775; 77001; 80048; 80053; 82550; 82805; 82962; 84145; 85027; 86850; 86900; 86901; 86920; 87040; 87081; 87449; 87637; 92526; 92610; 92611; 93005; 93306; 93308; 94618; 94640; 96365; 96367; 96368; 97110; 97162; 97163; 97166; 97530; 97535; 99222; 99223; 99232; 99291; 36600; 71046; 74176; 74221; 80320; 80329; 81003; 81015; 82607; 83036; 83605; 83735; 83880; 84100; 84443; 84484; 85014; 85018; 85025; 85379; 85610; 85730; 86140; 87070; 87086; 87205; 87581; 87899; 93010; 94660; 94664; 94667; 94668; 94760; 99231; 99233; 99292; J0131; J1100; J1650; J1940; J1941; J2060; J2270; J2543; J3010; J3490; J7042; J7512; J7613; J7620; P9016

== ENCOUNTER → 2022-11-14 08:25 | Outpatient (BNVA) | payer OTHER, MEDICAID, SELFPAY | PROVIDERS: PCP Family Medicine; Referring Provider Family Medicine; Visit Provider Psychiatry & Neurology Neurology ==